=== PATIENT | female | born 1970 | race Caucasian/White ===

== ENCOUNTER 2022-10-02 12:10 | Outpatient (OUT) | payer MEDICAID, SELFPAY ==
[2022-10-02 13:57] LABS: Albumin Level 3.1 g/dL (3.4-5.0); Anion Gap 19.8; BUN Creatinine Ratio 8.8; Calcium 9.8 mg/dL (8.5-10.1); Carbon Dioxide 21.4 mmol/L (21.0-32.0); Chloride 100 mmol/L (98-107); Estimated GFR (African America >60 (>=60); Estimated GFR (Non-African Ame 57 (>=60); Glucose 308 mg/dL (74-106); Magnesium 1.3 mg/dL (1.8-2.4); Phosphorus 4.5 mg/dL (2.6-4.7); Potassium 4.2 mmol/L (3.5-5.1); Sodium 137 mmol/L (136-145)
== END 2022-10-02 12:11 | disposition home or self-care (01) ==
LOC: LAB 12:15
PROVIDERS: PCP Nurse Practitioner Family; Visit Provider Internal Medicine
DX: E55.9 Vitamin D deficiency, unspecified (principal); E83.52 Hypercalcemia; D35.1 Benign neoplasm of parathyroid gland
CPT/HCPCS: 36415; 80069; 82306; 82310; 83735; 83970

== ENCOUNTER 2022-10-11 09:34 | Outpatient (OUT) | payer MEDICAID, SELFPAY ==
[2022-10-11 09:58] LABS: Basophils Absolute Auto 0.1 10^3/uL (0.0-0.1); Basophils Percent Auto 0.8 % (0.2-2.0); Eosinophils Absolute Auto 0.2 10^3/uL (0.0-0.7); Eosinophils Percent Auto 2.3 % (0.9-7.0); Hematocrit 44.8 % (36.0-48.0); Immature Granulocytes Abs Auto 0.06 10^3/uL (0.00-0.03); Immature Granulocytes Pct Auto 0.6 % (0.0-0.5); Lymphocytes Absolute Auto 3.4 10^3/uL (1.2-3.8); Lymphocytes Percent Auto 34.6 % (20.5-60.0); Mean Corpuscular HGB Conc 33.5 g/dL (29.9-35.2); Mean Corpuscular Hemoglobin 30.1 pg (26.7-34.0); Mean Platelet Volume 10.9 fL (9.5-13.5); Monocytes Absolute Auto 0.4 10^3/uL (0.3-0.8); Neutrophils Absolute Auto 5.7 10^3/uL (1.4-6.5); Neutrophils Percent Auto 57.7 % (43.0-75.0); Platelet Count 251 10^3/uL (150-450); Red Blood Count 4.98 10^6/uL (4.20-5.40); Red Cell Distribution Width 13.1 % (11.0-15.0); White Blood Count 9.9 10^3/uL (4.0-11.0)
[2022-10-11 10:05] LABS: Creatinine Urine Random 189.24 mg/dL (20.00-300.00)
[2022-10-11 10:30] LABS: Albumin Level 3.3 g/dL (3.4-5.0); Anion Gap 13.2; BUN Creatinine Ratio 17.2; Calcium 9.5 mg/dL (8.5-10.1); Carbon Dioxide 27.6 mmol/L (21.0-32.0); Chloride 103 mmol/L (98-107); Estimated GFR (African America >60 (>=60); Estimated GFR (Non-African Ame 59 (>=60); Glucose 136 mg/dL (74-106); Magnesium 1.5 mg/dL (1.8-2.4); Potassium 3.8 mmol/L (3.5-5.1); Sodium 140 mmol/L (136-145)
[2022-10-11 10:41] LABS: Bilirubin Urine NEGATIVE (NEGATIVE); Blood Urine SMALL (NEGATIVE); Clarity Urine CLEAR (CLEAR); Color Urine YELLOW (YELLOW); Glucose Urine UA 500 mg/dL (NEGATIVE); Ketones Urine NEGATIVE (NEGATIVE); Leukocyte Esterase Urine NEGATIVE (NEGATIVE); Nitrite Urine NEGATIVE (NEGATIVE); Protein Urine >=300 mg/dL (NEG/TRACE); Specific Gravity Urine >=1.030 (1.005-1.025); Urobilinogen Urine 0.2 EU/dL (0.2-1.0); pH Urine 5.5 (5.0-9.0)
[2022-10-12 11:09] LABS: PTH, Intact 22 pg/mL (15-65)
== END 2022-10-11 09:35 | disposition home or self-care (01) ==
PROVIDERS: PCP Nurse Practitioner Family; Visit Provider Internal Medicine
DX: E11.22 Type 2 diabetes mellitus with diabetic chronic kidney disease (principal); I12.9 Hypertensive chronic kidney disease with stage 1 through stage 4 chronic kidney disease, or unspecified chronic kidney disease; N18.30 Chronic kidney disease, stage 3 unspecified; R80.1 Persistent proteinuria, unspecified; E27.9 Disorder of adrenal gland, unspecified; E83.42 Hypomagnesemia; E83.52 Hypercalcemia; D75.1 Secondary polycythemia
CPT/HCPCS: 36415; 80069; 81003; 82306; 82570; 83735; 83970; 85025

== ENCOUNTER 2023-03-28 10:22 | Outpatient (OUT) | payer MEDICAID, SELFPAY ==
[2023-03-28 11:18] LABS: Magnesium 1.2 mg/dL (1.8-2.4); Phosphorus 3.4 mg/dL (2.6-4.7)
== END 2023-03-28 10:23 | disposition home or self-care (01) ==
LOC: LAB 10:23
PROVIDERS: PCP Nurse Practitioner Family; Visit Provider Internal Medicine
DX: D35.1 Benign neoplasm of parathyroid gland (principal); E83.52 Hypercalcemia; E55.9 Vitamin D deficiency, unspecified
CPT/HCPCS: 36415; 82042; 82306; 82310; 83735; 83970; 84100

== ENCOUNTER 2023-03-28 10:24 | Outpatient (OUT) | payer MEDICAID, SELFPAY ==
[2023-03-28 10:57] LABS: Basophils Absolute Auto 0.1 10^3/uL (0.0-0.1); Basophils Percent Auto 0.7 % (0.2-2.0); Eosinophils Absolute Auto 0.2 10^3/uL (0.0-0.7); Eosinophils Percent Auto 1.5 % (0.9-7.0); Hematocrit 48.5 % (36.0-48.0); Immature Granulocytes Abs Auto 0.06 10^3/uL (0.00-0.03); Immature Granulocytes Pct Auto 0.6 % (0.0-0.5); Lymphocytes Absolute Auto 3.8 10^3/uL (1.2-3.8); Lymphocytes Percent Auto 36.1 % (20.5-60.0); Mean Corpuscular Hemoglobin 29.6 pg (26.7-34.0); Mean Corpuscular Volume 89.6 fL (81.0-99.0); Mean Platelet Volume 11.3 fL (9.5-13.5); Monocytes Absolute Auto 0.5 10^3/uL (0.3-0.8); Monocytes Percent Auto 4.5 % (1.7-12.0); Neutrophils Percent Auto 56.6 % (43.0-75.0); Platelet Count 198 10^3/uL (150-450); Red Blood Count 5.41 10^6/uL (4.20-5.40); Red Cell Distribution Width 12.8 % (11.0-15.0); White Blood Count 10.5 10^3/uL (4.0-11.0)
[2023-03-28 11:21] LABS: Anion Gap 13.4; BUN Creatinine Ratio 13.3; Calcium 10.6 mg/dL (8.5-10.1); Carbon Dioxide 27.4 mmol/L (21.0-32.0); Chloride 103 mmol/L (98-107); Chol HDL Ratio 5.5; Cholesterol 268 mg/dL (<=200); Estimated GFR (African America >60 (>=60); Estimated GFR (Non-African Ame 55 (>=60); Glucose 175 mg/dL (74-106); HDL Cholesterol 49 mg/dL (40-60); Potassium 3.8 mmol/L (3.5-5.1); Sodium 140 mmol/L (136-145); Triglycerides 325 mg/dL (<=150)
== END 2023-03-28 10:25 | disposition home or self-care (01) ==
PROVIDERS: PCP Nurse Practitioner Family
DX: D35.1 Benign neoplasm of parathyroid gland (principal); E83.52 Hypercalcemia; E55.9 Vitamin D deficiency, unspecified; I10 Essential (primary) hypertension; E78.01 Familial hypercholesterolemia; R07.9 Chest pain, unspecified; R94.31 Abnormal electrocardiogram [ECG] [EKG]
CPT/HCPCS: 36415; 80048; 80061; 82042; 82306; 82310; 83735; 83970; 84100; 85025

== ENCOUNTER 2023-04-16 10:04 | Outpatient (OUT) | payer MEDICAID, SELFPAY ==
--- OUTSIDE RECORDS SUMMARY | 2023-04-16 10:12 | XMS_ITS | CCD ---
Demographics Address [address] [address] Preferred Language en Marital Status Single Hoahaoism Affiliation Unknown Race White Ethnic Group Not or Lati no Author Name Unknown Address [address] [place] [address] Organization [facility] Care Team Providers Care Shank Burnisher Name Role Phone Danis, Nir Unavailable KAYLIE LANG Primary Care Physician Rosina Salter Unavailable Unavailable KALA LLOYD Primary Care Physician [phone] Eliazar De Los Santos Attending Unavailable Eliazar De Los Santos Admitting Unavailable Eliazar De Los Santos Attending Unavailable Eliazar De Los Santos Admitting Unavailable Eliazar De Los Santos Admitting Unavailable Eliazar De Los Santos Attending Unavailable MD Kala Lloyd Primary Care Provider TAMMIE Lang Referring Provider MD Isela Downs Attending Provider [phone] Peyton Hoskins Unavailable MD Prema [facility] Primary Care Provider TAMMIE Lang Referring Provider MD Isela Downs Attending Provider TAMMIE Lang Primary Care Provider [phone] MD Peyton Hoskins Attending Provider DANIS NIR Admitting Unavailable DANISCOLLINUL Attending Unavailable KAYLIE LANG Primary Care Unavailable DANIS, NIR Consulting Unavailable MISTatyana, DR SIMMS Admitting Unavailable MISC, DR SIMMS Attending Unavailable DR KALA LLOYD Referring Unavailable KAYLIE LANG Primary Care Unavailable BLU, DR SIMMS Consulting Unavailable DANIS, NIR Admitting Unavailable DANISCOLLINUL Attending Unavailable KAYLIE LANG Primary Care Unavailable DANIS, NIR Consulting Unavailable DANIS, NIR Admitting Unavailable DANIS, NIR Attending Unavailable LANG, KAYLIE Primary Care Unavailable DANIS, NIR Consulting Unavailable DANIS, NIR Admitting Unavailable DANIS, NIR Attending Unavailable LANG, KAYLIE Primary Care Unavailable DANIS, NIR Consulting Unavailable DANIS, NIR Admitting Unavailable DANIS, NIR Attending Unavailable LANG, KAYLIE Primary Care Unavailable DANIS, NIR Consulting Unavailable Lang, FLAG CAR DRIVER Kaylie R Primary Care Provider MD Herrera Donahue Attending Provider MD Nir Horvath Attending Provider [phone] Lang, Kaylie R Primary Care Unavailable Asaad, Imad Admitting Unavailable Asaad, Imad Attending Unavailable Lang, Kaylie R Primary Care Unavailable Asaad, Imad Admitting Unavailable Asaad, Imad Attending Unavailable Danis, Nir Admitting Unavailable Danis, Nir Attending Unavailable Lang, Kaylie R Primary Care Unavailable Asaad, Imad Admitting Unavailable Lang, Kaylie R Primary Care Unavailable Asaad, Imad Attending Unavailable Lang, Kaylie R Primary Care Unavailable Asaad, Imad Admitting Unavailable Asaad, Imad Attending Unavailable Lang FLAG CAR DRIVER-ANESTHESIOLOGIST ATTENDING, Kaylie R Primary Care Provider Kala Lloyd MD Primary Care Provider Scott GAS SPECIALIST, Kaylie R Unavailable DENNIS FOSTER Attending Unavailable LANG, KAYLIE R Referring Unavailable LANG, KAYLIE R Primary Care Unavailable JONATHON, REYMUNDO E Admitting Unavailable GIRON, REYMUNDO E Attending Unavailable LANG, KAYLIE R Referring Unavailable LANG, KAYLIE R Primary Care Unavailable GIRON, REYMUNDO E Attending Unavailable GIRON, REYMUNDO E Referring Unavailable LANG, KAYLIE R Primary Care Unavailable LANG, KAYLIE R Referring Unavailable LANG, KAYLIE R Primary Care Unavailable DENNIS FOSTER Attending Unavailable DENNIS FOSTER Referring Unavailable LANG, KAYLIE R Primary Care Unavailable DENNIS FOSTER Attending Unavailable DENNIS FOSTER Referring Unavailable LANG, KAYLIE R Primary Care Unavailable LIVE KWON Attending Unavailable LANG, KAYLIE R Referring Unavailable LANG, KAYLIE R Primary Care Unavailable DENNIS FOSTER Attending Unavailable DENNIS FOSTER Referring Unavailable LANG, KAYLIE R Primary Care Unavailable DENNIS FOSTER Attending Unavailable CRISTIAN, DENNIS D Referring Unavailable LANG, KAYLIE R Primary Care Unavailable DENNIS FOSTER Attending Unavailable CRISTIAN DENNIS D Referring Unavailable LANG, KAYLIE R Primary Care Unavailable BRANDON LAUGHLIN Attending Unavailable LAVERNE PORTER Attending Unavailable KALA LLOYD Referring Unavailable PREMAKALA Attending Unavailable ELIAZAR DE LOS SANTOS Attending Unavailable LINDY VALENTINO Attending UnavailBRANDON Pruett Attending Unavailable KAYLIE LANG Attending Unavailable BRANDON LAUGHLIN Referring Unavailable LINDY VALENTINO Attending UnavailELIAZAR Bennett Attending Unavailable LINDY VALENTINO Attending Unavailyany hurtado Allergies Allergy Classification Reported Allergen(s) Allergy Type Date of Onset Reaction(s) Facility (9 sources) Coconut extract Drug Allergy 05-19-19 23 Unknown, [facility] (19 sources) Codeine; Translations: [CODEINE] Drug Allergy 01-01-20 19 [facility] (13 sources) dapagliflozin; Translations: [DAPAGLIFLOZIN] Drug Allergy 01-01-20 [facility] (13 sources) Latex; Translations: [LATEX] Propensity to adverse reactions 01-08-20 [facility] (5 sources) onions Propensity to adverse reactions Unknown [facility] Other (4 sources) Acetaminophen Drug Allergy 05-19-19 Unknown Reaction [facility] (4 sources) Bee pollen Allergy to substance 05-19-19 Anaphylaxis [facility] (4 sources) Onion extract Drug Allergy 05-19-19 Anaphylaxis [facility] (4 sources) Tide Allergy to substance 05-19-19 [facility] (1 source) Coconut extract Drug Allergy 06-17-[address] [facility] (1 source) Codeine Drug Allergy 02-08-[address] [facility] (1 source) Latex Drug allergy (disorder) 06-17-[address] [facility] (1 source) Misc-Food; Translations: [Misc-Food] Food allergy (disorder) 06-17-[address] [facility] (1 source) Misc-Drug Drug allergy (disorder) 07-05-[address] [facility] (1 source) dapagliflozin Drug Allergy 07-24-19 Rash [facility] (1 source) Latex Allergy to substance 07-24-19 Unknown [facility] (1 source) Coconut Flavor Allergy to substance 07-24-19 Unknown [facility] Work Phone: Medications Current Medications Medication Drug Class(es) Dates Sig (Normalized) Sig (Original) [id number] 200 actuat albuterol 0.09 mg/actuat metered dose inhaler (13 sources) beta2-Adrenergic Agonist Start: 07-17-2021 take 2 puff(s) by inhalation every four hours albuterol HFA 90 mcg/act inhaler Inhale 2 puffs every 4 (four) hours if needed. 0 07/17/2021 Active Start: 05-25-2019 take 1 puff(s) by in halation every four to six hours Albuterol Sulfate Active 2 PUFF INHALATION EVERY 4-6 HOURS May 25, 2019 12:00am take 2 puff(s) by in halation every six hours as needed for wheezing albuterol (PROVENTIL HFA;VENTOLIN HFA) 90 mcg/actuation inhaler Inhale 2 puffs every 6 (six) hours as needed for wheezing. 0 Active take 2 puff(s) by in halation every six hours as needed Albuterol Sulfate HFA 108 (90 Base) MCG/ACT 2 puffs as needed Inhalation every 6 hrs Active take 2 puff(s) by in halation every six hours as needed Albuterol Sulfate HFA 108 (90 Base) MCG/ACT 2 puffs as needed Inhalation every 6 hrs Active Alirocumab (Praluent Pen) 75 mg/mL Pen Injector (4 sources) Start: 04-26-2022 inject 75 mg by subcutaneous injection every other week Alirocumab (Praluent Pen) 75 mg/mL Pen Injector Active 75 MG SUBCUT Q14D April 26, 2022 1:00am Start: 04-26-2022 inject 75 mg by subc utaneous injection every other week Alirocumab (Praluent Pen) 75 mg/mL Pen Injector Active 75 MG SUBCUT Q14D April 26, 2022 12:00am aMILoride hydrochloride 5 mg oral tablet (8 sources) Potassium-sparing Diuretic Start: 04-12-2022 take 1 tablet by mouth every twenty-four hours aMILoride HCl 5 MG 1 tablet with food Orally Once a day for 90 day(s) Apr, Active take 1 tablet by nancy th every twelve hours aMILoride HCl 5 MG 1 tablet with food Orally bid for 90 days Active atorvastatin 80 mg oral tablet (17 sources) HMG-CoA Reductase Inhibitor Start: 04-26-2022 take 1 tablet by mouth once daily atorvastatin (Lipitor) 80 MG tablet Indications: Mixed hyperlipidemia (CMS/HCC) Take 1 tablet by mouth once daily 30 tablet 0 10/18/2022 Active Start: 05-15-2018 End: 04-22-2020 take 80 mg by mouth once daily in the morning Atorvastatin Discontinued 80 MG PO Every morning May 15, 2018 1:00am April 22, 2020 4:06pm take 2 tablets by mo uth in the morning atorvastatin (LIPITOR) 40 mg tablet Take 2 tablets (80 mg total) by mouth in the morning. 0 Active bismuth subsalicylate 262 mg chewable tablet (1 source) Bismuth Start: 07-20-2022 take 1 tablet by mouth twice daily Bismuth 262 MG 1 tablet Orally twice daily for 14 days July, Active blood-glucose sensor (DEXCOM G6 SENSOR) device (3 sources) blood-glucose sensor (DEXCOM G6 SENSOR) device by miscellaneous route. 0 Active cefuroxime 500 mg oral tablet (5 sources) Cephalosporin Antibacterial Start: 04-05-2023 End: 04-15-2023 take 1 tablet by mouth in the morning cefuroxime (Ceftin) 500 MG tablet Indications: Acute bronchitis, unspecified organism Take 1 tablet (500 mg) by mouth in the morning and 1 tablet (500 mg) before bedtime. Do all this for 10 days. 20 tablet 0 04/05/2023 04/15/2023 Active Start: 07-24-2019 End: 08-20-2019 take 250 mg by mouth twice daily Cefuroxime Axetil Discontinued 250 MG PO Twice daily July 24, 2019 12:00am August 20, 2019 1:24pm cetirizine hydrochloride 10 mg oral tablet (12 sources) Histamine-1 Receptor Antagonist Start: 05-25-2019 take 10 mg by mouth once daily Cetirizine Active 10 MG PO Daily May 25, 2019 12:00am chlorproMAZINE hydrochloride 200 mg oral tablet (17 sources) Phenothiazine Start: 05-15-2018 Chlorpromazine Active 100 MG PO As Directed May 15, 2018 1:00am Start: 05-15-2018 take 500 mg by mouth at bedtime Chlorpromazine Active 500 MG PO Bedtime May 15, 2018 12:00am Start: 05-15-2018 End: 05-25-2019 take 50 mg by mouth twice daily Chlorpromazine Discontinued 50 MG PO Twice daily May 15, 2018 1:00am May 25, 2019 10:57am take 1 tablet by nancy th every eight hours chlorproMAZINE (Thorazine) 200 MG tablet Take 200 mg by mouth every 8 (eight) hours. 0 Active chlorproMAZINE ( THORAZINE) 200 mg tablet Take 1 tablet (200 mg total) by mouth once daily at bedtime. Take 2-3 tablets at night 0 Active Continuous Blood Gluc Sensor (Dexcom G6 Sensor) [facility] (1 source) Start: 01-03-2023 Continuous Blood Gluc Sensor (Dexcom G6 Sensor) [facility] [place] [place] Indications: Type 2 diabetes mellitus with peripheral neuropathy (CMS/HCC) 1 each Every 10 (ten) days. 9 each 3 01/03/2023 Active doxepin hydrochloride 50 mg oral capsule (13 sources) Tricyclic Antidepressant Start: 05-15-2018 take 50 mg by mouth three times daily Doxepin Active 50 MG PO Three times daily May 15, 2018 1:00am [id number] 0.3 ml EPINEPHrine 1 mg/ml auto-injector (4 sources) alpha-Adrenergic Agonist, beta-Adrenergic Agonist, Catecholamine Start: 11-02-2021 EPINEPHrine (EpiPen 2-Dre) 0.3 MG/0.3ML injection syringe Inject 1 Syringe as directed 1 (one) time. 0 11/02/2021 Active EPINEPHrine (ADR ENALIN) 1 mg/mL injection Inject into the appropriate muscle once. 0 Active ezetimibe 10 mg oral tablet (13 sources) Dietary Cholesterol Absorption Inhibitor Start: 12-02-2020 take 1 tablet by mouth once daily ezetimibe (Zetia) 10 MG tablet Indications: Hyperlipidemia, unspecified hyperlipidemia type (CMS/HCC) Take 1 tablet by mouth once daily 90 tablet 0 03/19/2023 Active gabapentin 800 mg oral tablet (13 sources) Anti-epileptic Agent Start: 05-15-2018 take 800 mg by mouth four times daily Gabapentin Active 800 MG PO Four times daily May 15, 2018 1:00am take 1 tablet by mouth every six hours gabapentin (Neurontin) 800 MG tablet Take 800 mg by mouth every 6 (six) hours. 0 Active Insulin Aspart U-100 (Novolo g Flexpen U-100 Insulin) 100 unit/mL (3 mL) Insulin Pen (4 sources) Start: 05-25-2019 Insulin Aspart U-100 (Novolog Flexpen U-100 Insulin) 100 unit/mL (3 mL) Insulin Pen Active 15 - 40 UNIT SUBCUT THREE TIMES DAILY WITH MEALS May 25, 2019 12:00am Start: 05-25-2019 Insulin Aspart U-100 (Novolog Flexpen U-100 Insulin) 100 unit/mL (3 mL) Insulin Pen Active 15 - 40 UNIT SUBCUT THREE TIMES DAILY WITH MEALS May 24, 2019 11:00pm 3 ml insulin aspart, human 100 unt/ml pen injector (13 sources) Insulin Analog Start: 04-03-2023 insulin aspart (NovoLOG) 100 UNIT/ML pen Indications: Type 2 diabetes mellitus with peripheral neuropathy (CMS/HCC) 10 units small meals, 20 units medium, 35 units large meals plus correction 2:30 > 150 mg/dl (max daily 100 units) 30 mL 2 04/03/2023 Active Start: 05-15-2018 End: 05-25-2019 inject 30 [IU] by subcutaneous injection four times daily Insulin Aspart U-100 Discontinued 30 UNITS SUBCUT Four times daily May 15, 2018 1:00am May 25, 2019 11:05am Start: 05-15-2018 End: 05-25-2019 inject 30 [IU] by subcutaneous injection four times daily Insulin Aspart U-100 Discontinued 30 UNITS SUBCUT Four times daily May 15, 2018 12:00am May 25, 2019 10:05am insulin aspart U -100 (NovoLOG) 100 unit/mL injection Inject under the skin 3 (three) times a day before meals. Sliding scale 0 Active NovoLOG 100 UNIT /ML 30 UNITS FOR SMALL MEALS, 45 UNITS FOR LARGE MEALS Subcutaneous NEEDED Active 3 ml insulin glargine 100 unt/ml pen injector (20 sources) Insulin Analog Start: 04-02-2023 inject 40 [IU] by subcutaneous injection in the morning insulin glargine (Lantus SoloStar) 100 UNIT/ML pen Indications: Type 2 diabetes mellitus with peripheral neuropathy (CMS/HCC) Inject 40 Units under the skin in the morning and 40 Units before bedtime. 30 mL 2 04/02/2023 Active Start: 04-21-2020 Insulin Glargi ne (Lantus Solostar U-100 Insulin) 100 unit/mL (3 mL) insulin pen Active 50 UNIT SUBCUT Twice daily April 21, 2020 1:00am Start: 04-21-2020 Insulin Glargi ne (Lantus Solostar U-100 Insulin) 100 unit/mL (3 mL) insulin pen Active 45 UNIT SUBCUT Twice daily April 21, 2020 12:00am Start: 05-25-2019 End: 04-26-2022 inject 35 [IU] by subcutaneous injection twice daily Insulin Glargine Discontinued 35 UNIT SUBCUT Twice daily May 25, 2019 12:00am April 26, 2022 3:44pm Start: 05-15-2018 End: 05-25-2019 inject 35 mg by subcutaneous injection twice daily Insulin Glargine Discontinued 35 MG SUBCUT Twice daily May 15, 2018 1:00am May 25, 2019 11:05am inject 40 [IU] by burgos bcutaneous injection in the morning insulin glargine (LANTUS, BASAGLAR) 100 unit/mL (3 mL) insulin pen Inject 40 Units under the skin in the morning and 40 Units before bedtime. 0 Active Lantus SoloStar 100 UNIT/ML as directed Subcutaneous 40 UNITS TWICE A DAY Active lisinopril 20 mg oral tablet (13 sources) Angiotensin Converting Enzyme Inhibitor Start: 05-15-2018 take 1 tablet by mouth in the morning lisinopril 20 MG tablet Indications: Primary hypertension (CMS/HCC) Take 1 tablet (20 mg) by mouth in the morning. 90 tablet 1 01/21/2023 Active LORazepam 0.5 mg oral tablet (13 sources) Benzodiazepine Start: 05-18-2022 take 1 tablet by mouth once daily Lorazepam (Ativan) 0.5 mg Tablet Active 0.5 MG PO Daily May 18, 2022 1:00am [facility], then take 2 tablets by mouth in the evening, then take 2 tablets by mouth at bedtime LORazepam (Ativan) 0.5 MG tablet Take 1 mg by mouth in the morning and 1 mg in the evening and 1 mg before bedtime. 0 Active take 1 tablet by nancy th in the morning, then take 1 tablet by mouth three times daily, then take 2 tablets by mouth at bedtime LORazepam (ATIVAN) 1 mg tablet Take 1 tablet (1 mg total) by mouth in the morning. 1 tablets 3 times daily and 2 tablets at bedtime. 0 Active take 1 tablet by nancy th every six hours as needed for anxiety LORazepam (ATIVAN) 0.5 mg tablet Take 1 tablet (0.5 mg total) by mouth every 6 (six) hours as needed for anxiety. 0.5-1 mg daily 2 tablets at HS 0 Active magnesium oxide 400 mg oral tablet (13 sources) Start: 04-26-2022 take 400 mg by mouth once daily Magnesium Oxide Active 400 MG PO Daily April 26, 2022 1:00am take 1 tablet by nancy th twice daily at mealtime Magnesium Oxide 400 (240 Mg) MG 1 tablet with food Orally bid for 90 day(s) Active metFORMIN hydrochloride 1000 mg oral tablet (13 sources) Biguanide Start: 12-24-2022 End: 12-24-2023 take 1 tablet by mouth in the morning metFORMIN (Glucophage) 1000 MG tablet Indications: Type 2 diabetes mellitus with peripheral neuropathy (CMS/HCC) Take 1 tablet (1,000 mg) by mouth in the morning and 1 tablet (1,000 mg) before bedtime. 180 tablet 3 12/24/2022 12/24/2023 Active Start: 05-15-2018 take 1000 mg by mouth twice da jazmine Metformin Active 1000 MG PO Twice daily May 15, 2018 1:00am take 1 tablet by nancy th every twenty-four hours in the morning, then take 1 tablet by mouth at mealtime metFORMIN (GLUMETZA) 1000 MG (MOD) 24 hr tablet Take 1 tablet (1,000 mg total) by mouth in the morning and 1 tablet (1,000 mg total) in the evening. Take with meals. 0 Active metroNIDAZOLE 500 mg oral tablet (1 source) Nitroimidazole Antimicrobial Start: 07-20-2022 take 1 tablet by mouth every twelve hours metroNIDAZOLE 500 MG 1 tablet Orally Twice a day for 14 days 12 May, 2023 Active montelukast 10 mg oral tablet (6 sources) Leukotriene Receptor Antagonist Start: 08-07-2022 take 1 tablet by mouth at bedtime montelukast (Singulair) 10 MG tablet Indications: Seasonal allergic rhinitis due to pollen Take 1 tablet (10 mg) by mouth at bedtime. 30 tablet 6 08/07/2022 Active Multivitamin preparation (4 sources) Start: 05-25-2019 take 1 tablet by mouth once daily in the morning Multivitamin Active 1 TAB PO Every morning May 25, 2019 12:00am Start: 05-25-2019 take 1 tablet by nancy th once daily in the morning Multivitamin Active 1 TAB PO Every morning May 24, 2019 11:00pm Tiotropium-Olodaterol (12 sources) Anticholinergic, beta2-Adrenergic Agonist Start: 04-26-2022 Tiotropium-Olodaterol (Stiolto Respimat) 2.5-2.5 mcg/actuation Mist Active 2 PUFF INHALATION Daily April 26, 2022 1:00am Start: 04-26-2022 Tiotropium-Olo daterol (Stiolto Respimat) 2.5-2.5 mcg/actuation Mist Active 2 PUFF INHALATION Daily April 26, 2022 12:00am Start: 11-03-2021 tiotropium-olo daterol (Stiolto Respimat) 2.5-2.5 MCG/ACT aerosol solution inhaler Inhale 2 Inhalation in the morning. 0 11/03/2021 Active tiotropium-oloda teroL (STIOLTO RESPIMAT) 2.5-2.5 mcg/actuation mist Inhale 2 puffs daily. 0 Active Stiolto Respimat 2.5-2.5 MCG/ACT Inhalation for 30 Days Active omeprazole 40 mg delayed release oral capsule (1 source) Proton Pump Inhibitor Start: 07-20-2022 Omeprazole 40 MG 1 capsule 30 minutes before morning meal and evening meal Orally twice a day for 14 days July, Active pantoprazole 40 mg delayed release oral tablet (17 sources) Proton Pump Inhibitor Start: 05-07-2018 End: 12-02-2020 take 1 tablet by mouth every twelve hours Pantoprazole Sodium 40 MG 1 tablet Orally bid for 30 day(s) Apr, Active take 1 tablet by nancy th every twelve hours pantoprazole (Protonix) 40 MG EC tablet Take 40 mg by mouth every 12 (twelve) hours. 0 Active polyethylene glycol 3350 538661 mg / potassium chloride 2970 mg / sodium bicarbonate 6740 mg / sodium chloride 5860 mg / sodium sulfate 79547 mg powder for oral solution (1 source) Osmotic Laxative Start: 07-24-2022 PEG-3350/Electrolytes 236 GM as directed Orally once daily for 1 days July, Active predniSONE 20 mg oral tablet (1 source) Start: 04-05-2023 take 2 tablets by mouth once daily, then take 1 tablet by mouth once daily predniSONE (Deltasone) 20 MG tablet Indications: Acute bronchitis, unspecified organism 2 po every day x 2 days then 1 po every day x 2 days 5 tablet 0 04/05/2023 Active rOPINIRole 0.25 mg oral tablet (13 sources) Nonergot Dopamine Agonist Start: 04-19-2016 take 0.25 mg by mouth once daily at bedtime Ropinirole Active 0.25 MG PO Daily at bedtime May 25, 2019 12:00am tetracycline hydrochloride 500 mg oral capsule (1 source) Tetracycline-clas s Antimicrobial Start: 07-20-2022 take 1 capsule by mouth twice daily Tetracycline HCl 500 MG 1 capsule on an empty stomach Orally twice daily for 14 days July, Active tiZANidine 4 mg oral tablet (4 sources) Central alpha-2 Adrenergic Agonist Start: 02-27-2023 take 1 tablet by mouth twice daily as needed tiZANidine (Zanaflex) 4 MG tablet Take 4 mg by mouth 2 (two) times a day as needed 0 02/27/2023 Active 24 hr divalproex sodium 500 mg extended release oral tablet (20 sources) Mood Stabilizer, Anti-epileptic Agent Start: 04-26-2022 take 1 tablet by mouth once daily Divalproex (Depakote Er) 500 mg Tablet Extended Release 24 Hr Active 500 MG PO Daily April 26, 2022 1:00am Start: 05-25-2019 End: 04-26-2022 take 1000 mg by mouth once daily in the morning Divalproex Discontinued 1000 MG PO Every morning May 25, 2019 12:00am April 26, 2022 3:34pm Start: 05-25-2019 End: 04-21-2020 take 1500 mg by mouth once daily at bedtime Divalproex Discontinued 1500 MG PO Daily at bedtime May 25, 2019 12:00am April 21, 2020 5:05pm take 2 tablets by mo uth every hour at bedtime divalproex (Depakote ER) 500 MG 24 hr tablet Take 500 mg by mouth every 12 (twelve) hours. Takes one tablet in the am and 2 at bedtime 0 Active take 3 tablets by mo uth once daily divalproex (DEPAKOTE) 500 mg EC tablet Take 3 tablets (1,500 mg total) by mouth nightly. 0 Active take 2 tablets by mo uth in the morning, then take 3 tablets by mouth twice daily at bedtime Depakote ER 500 MG 2 TABLETS IN AM, 3 TABLETS AT BEDTIME Orally TWICE A DAY Active Completed/Discontinued Medications Medication Drug Class(es) Dates Sig (Normalized) Sig (Original) 1 ml alirocumab 75 mg/ml auto-injector (6 sources) PCSK9 Inhibitor Start: 12-21-2021 End: 03-15-2023 inject 1 mL by subcutaneous injection once alirocumab (PRALUENT PEN) 75 mg/mL pen injector Indications: High cholesterol , Type 2 diabetes mellitus with hyperosmolarity without coma, with long-term [place] use [place] Inject 1 mL (75 mg total) under the skin every 14 (fourteen) days. 2 mL 12/21/2021 03/15/2023 Discontinued (Therapy completed) Praluent 75 MG/M L Subcutaneous for 28 Days Active cholecalciferol 0.01 mg oral tablet (8 sources) Vitamin D Start: 04-21-2020 End: 04-27-2022 take 10 ug by mouth once daily Cholecalciferol (Vitamin D3) Discontinued 10 MCG PO Daily April 21, 2020 1:00am April 27, 2022 10:40am take 1 capsule by mouth every we ek cholecalciferol (Vitamin D-3) 1.25 MG (14712 UT) capsule Take 50,000 Units by mouth 1 (one) time per week. 0 Active cholecalciferol (VITAMIN D3) 50,000 units capsule Take 5,000 Units by mouth once a week. 0 Active cyclobenzaprine hydrochloride 10 mg oral tablet (8 sources) Muscle Relaxant Start: 04-21-2020 End: 04-22-2020 take 10 mg by mouth at bedtime Cyclobenzaprine Discontinued 10 MG PO Bedtime April 21, 2020 1:00am April 22, 2020 4:06pm Start: 07-24-2019 End: 08-28-2019 take 10 mg by mouth three times daily Cyclobenzaprine Discontinued 10 MG PO Three times daily July 24, 2019 12:00am August 28, 2019 8:41am 24 hr desvenlafaxine succinate 100 mg extended release oral tablet (17 sources) Serotonin and Norepinephrine Reuptake Inhibitor Start: 12-02-2020 End: 04-26-2022 Desvenlafaxine Succinate Discontinued MG PO December 02, 2020 12:00am April 26, 2022 3:33pm Start: 05-15-2018 take 100 mg by mouth once daily Desvenlafaxine Succinate Active 100 MG PO Daily May 15, 2018 1:00am desvenlafaxine ( PRISTIQ) 100 mg 24 hr tablet Take 1 tablet (100 mg total) by mouth in the morning. Take 1.5 tablets. 0 Active take 1 tablet by nancy every twenty-four hours Desvenlafaxine ER 100 MG 1 tablet Orally Once a day Active diazePAM 5 mg oral tablet (4 sources) Benzodiazepine Start: 08-28-2019 End: 04-21-2020 take 5 mg by mouth four times daily Diazepam Discontinued 5 MG PO Four times daily 40 10 August 28, 2019 12:00am April 21, 2020 5:12pm ergocalciferol 1.25 mg oral capsule (5 sources) Provitamin D2 Compound Start: 05-25-2019 End: 04-26-2022 Ergocalciferol (Vitamin D2) (Vitamin D2) 1,250 mcg (50,000 unit) Capsule Discontinued 88750 UNIT PO As Directed May 25, 2019 12:00am April 26, 2022 3:35pm take twice weekly [facility] weekly Vitamin D (Ergocalciferol) 1.25 MG (5000 0 UT) 1 capsule Orally twice a week Active fluticasone propionate 0.05 mg/actuat metered dose nasal spray (13 sources) Corticosteroid Start: 07-24-2019 End: 04-26-2022 Fluticasone Propionate Discontinued 2 SPRAY INTRANASAL Daily July 24, 2019 12:00am April 26, 2022 3:43pm Start: 09-06-2014 take 2 spray(s) nasa l route in the morning fluticasone (Flonase) 50 MCG/ACT nasal spray Administer 2 sprays into each nostril in the morning. 0 09/06/2014 Active take 2 spray(s) nasa l route in the morning fluticasone propionate (FLONASE) 50 mcg/actuation nasal spray Administer 2 sprays into each nostril in the morning. 0 Active take 1 spray(s) nasa l route once daily Fluticasone Propionate 50 MCG/ACT 1 spray in each nostril Nasally Once a day Active jcsyfajc-jogx-US-calcium &mi ns (THERAGRAN-M) 9 mg iron-400 mcg tablet (2 sources) End: 03-15-2023 drprdvag-rjqa-OR-calcium &mi ns (THERAGRAN-M) 9 mg iron-400 mcg tablet Take 1 tablet by mouth in the morning. 0 03/15/2023 Discontinued (Therapy completed) vhtcmnhf-tpab-DZ -calcium &mins (THERAGRAN-M) 9 mg iron-400 mcg tablet Take 1 tablet by mouth in the morning. 0 Active naproxen 500 mg oral tablet (8 sources) Nonsteroidal Anti-inflammatory Drug Start: 04-21-2020 End: 07-11-2022 take 500 mg by mouth every twelve hours Naproxen Discontinued 500 MG PO Q12H April 21, 2020 1:00am July 11, 2022 12:58pm Start: 05-25-2019 End: 08-28-2019 take 500 mg by mouth twice daily Naproxen Discontinued 500 MG PO Twice daily May 25, 2019 12:00am August 28, 2019 8:41am oxyCODONE hydrochloride 5 mg oral tablet (4 sources) Opioid Agonist Start: 08-28-2019 End: 04-22-2020 take 5 mg by mouth every four to six hours Oxycodone Discontinued 5 MG PO EVERY 4-6 HOURS 70 14 August 28, 2019 April 22, 2020 4:06pm potassium gluconate 2.13 meq oral tablet (4 sources) Start: 07-24-2019 End: 12-02-2020 take 75 mg by mouth once daily Potassium Gluconate Discontinued 75 MG PO Daily July 24, 2019 12:00am December 02, 2020 9:29am tiotropium 0.018 mg inhalation powder (9 sources) Anticholinergic Start: 05-25-2019 End: 04-26-2022 take 1 puff(s) by inhalation once daily in the morning Tiotropium [place] Discontinued 1 PUFF INHALATION Every morning May 25, 2019 12:00am April 26, 2022 3:46pm Start: 05-15-2018 End: 05-25-2019 take 18 ug by inhalation once daily Tiotropium [place] Discontinued 18 MCG INHALATION Daily May 15, 2018 1:00am May 25, 2019 11:12am take 1 capsule by in halation once daily Spiriva HandiHaler 18 MCG 1 capsule by inhaling the contents of the capsule using the HandiHaler device Inhalation Once a day Active Problems Active Problems Problem Classification Problem Date Documented Date Episodic/Chronic Abdominal pain (5 sources) Abdominal pain; Translations: [Unspecified abdominal pain] Episodic Acquired foot deformities (2 sources) Acquired hallux valgus; Translations: [Hallux valgus (acquired), unspecified foot] Onset: 3 07-23-2022 Chronic Adjustment disorders (1 source) Stress; Translations: [Reaction to severe stress, unspecified] Onset: 3 07-23-2022 Chronic Anxiety disorders (5 sources) Posttraumatic stress disorder; Translations: [Post-traumatic stress disorder, unspecified] Chronic Chronic kidney disease (5 sources) Chronic kidney disease stage 2; Translations: [Chronic kidney disease, stage 2 (mild)] Chronic Chronic kidney disease (8 sources) Chronic kidney disease; Translations: [Chronic kidney disease, stage III (moderate)] Onset: 2 Resolved: 2 Chronic obstructive pulmonary disease and bronchiectasis (16 sources) Emphysematous bronchitis; Translations: [Chronic obstructive pulmonary disease, unspecified] Onset: 8 04-27-2022 Chronic Complications of surgical procedures or medical care (6 sources) Post-hysterectomy menopause; Translations: [Asymptomatic postprocedural ovarian failure] Onset: 3 07-23-2022 Chronic Diabetes mellitus with complications (20 sources) Type 2 diabetes mellitus; Translations: [Type 2 diabetes mellitus with diabetic chronic kidney disease] Onset: 1 Resolved: 4 Chronic Diabetes mellitus without complication (12 sources) Diabetes mellitus; Translations: [Type 2 diabetes mellitus without complications] Onset: 2 04-27-2022 Chronic Diseases of white blood cells (9 sources) Leukocytosis; Translations: [Elevated white blood cell count, unspecified] Onset: 3 04-22-2020 Chronic Disorders of lipid metabolism (14 sources) Hyperlipidemia; Translations: [Hyperlipidemia, unspecified] Onset: 2 12-18-2021 Chronic Esophageal disorders (20 sources) Gastroesophageal reflux disease; Translations: [Gastro-esophageal reflux disease without esophagitis] Onset: 3 04-22-2020 Chronic Essential hypertension (11 sources) Hypertensive disorder; Translations: [Essential (primary) hypertension] Onset: 2 12-18-2021 Chronic Gastritis and duodenitis (3 sources) Gastroduodenitis; Translations: [Gastritis, unspecified, without bleeding] Onset: 3 Episodic Hepatitis (14 sources) Nonalcoholic steatohepatitis; Translations: [Nonalcoholic steatohepatitis (WICK)] Onset: 2 12-18-2021 Chronic Hypertension with complications and secondary hypertension (13 sources) Hypertensive renal disease; Translations: [Hypertensive chronic kidney disease with stage 1 through stage 4 chronic kidney disease, or unspecified chronic kidney disease] Onset: 2 Resolved: 2 Chronic Malaise and fatigue (1 source) Fatigue; Translations: [Chronic fatigue, unspecified] Onset: 3 07-23-2022 Chronic Miscellaneous mental health disorders (4 sources) Feeling of lump in throat; Translations: [Other somatoform disorders] Chronic Mood disorders (7 sources) Bipolar affective disorder, currently depressed, moderate; Translations: [Bipolar disorder, current episode depressed, moderate] Onset: 3 07-23-2022 Chronic Mycoses (1 source) Onychomycosis; Translations: [Tinea unguium] 04-09-2023 Episodic Nonspecific chest pain (5 sources) Chest pain; Translations: [Chest pain, unspecified] Onset: 4 03-15-2023 Episodic Nutritional deficiencies (13 sources) Vitamin D deficiency; Translations: [Vitamin D deficiency, unspecified] Onset: 2 Resolved: 2 Chronic Other acquired deformities (1 source) Contracture of joint of left ankle; Translations: [Contracture, left ankle] Onset: 3 07-23-2022 Chronic Other acquired deformities (5 sources) Lumbar spondylolisthesis; Translations: [Spondylolisthesis, lumbar region] Episodic Other connective tissue disease (1 source) Metatarsalgia of left foot; Translations: [Metatarsalgia, left foot] 04-09-2023 Episodic Other connective tissue disease (1 source) Pain of toe of right foot; Translations: [Pain in right toe(s)] 04-09-2023 Episodic Other connective tissue disease (1 source) Pain of toe of left foot; Translations: [Pain in left toe(s)] 04-09-2023 Episodic Other diseases of kidney and ureters (5 sources) Secondary hyperparathyroidism; Translations: [Secondary hyperparathyroidism of renal origin] Chronic Other endocrine disorders (5 sources) Disorder of adrenal gland; Translations: [Disorder of adrenal gland, unspecified] Chronic Other endocrine disorders (6 sources) Adrenal mass; Translations: [Disorder of adrenal gland, unspecified] Onset: 3 07-23-2022 Chronic Other endocrine disorders (4 sources) Disorder of adrenal gland, unspecified; Translations: [DISORDER ADRENAL GLAND UNSPECIFIED] Onset: 2 Resolved: 2 Chronic Other gastrointestinal disorders (1 source) Dysphagia, unspecified Episodic Other hematologic conditions (2 sources) Secondary polycythemia; Translations: [SECONDARY POLYCYTHEMIA] Onset: 3 Episodic Other hereditary and degenerative nervous system conditions (6 sources) Restless legs; Translations: [Restless legs syndrome] Onset: 3 07-23-2022 Chronic Other liver diseases (6 sources) Lesion of liver; Translations: [Liver disease, unspecified] Onset: 3 07-23-2022 Chronic Other nervous system disorders (5 sources) Carpal tunnel syndrome; Translations: [Carpal tunnel syndrome, right upper limb] Chronic Other nervous system disorders (5 sources) Radial neuropathy; Translations: [Lesion of radial nerve, right upper limb] Chronic Other nervous system disorders (1 source) Carpal tunnel syndrome of right wrist; Translations: [Carpal tunnel syndrome, right upper limb] Onset: 3 07-23-2022 Chronic Other nervous system disorders (1 source) Right radial neuropathy; Translations: [Lesion of radial nerve, right upper limb] Onset: 3 07-23-2022 Chronic Other nervous system disorders (1 source) Chronic pain; Translations: [Other chronic pain] Onset: 3 07-23-2022 Chronic Other non-traumatic joint disorders (5 sources) Pain of right wrist; Translations: [Pain in right wrist] Episodic Other nutritional; endocrine; and metabolic disorders (5 sources) Obese class I; Translations: [Body mass index (BMI) 33.0-33.9, adult] Chronic Other nutritional; endocrine; and metabolic disorders (5 sources) Hypomagnesemia; Translations: [Hypomagnesemia] Chronic Other nutritional; endocrine; and metabolic disorders (4 sources) Hypomagnesemia; Translations: [HYPOMAGNESEMIA] Onset: 2 Resolved: 2 Chronic Other nutritional; endocrine; and metabolic disorders (10 sources) Hypercalcemia; Translations: [Hypercalcemia] Onset: 3 04-27-2022 Chronic Other nutritional; endocrine; and metabolic disorders (8 sources) Hypercalcemia; Translations: [Hypercalcemia] Onset: 3 Chronic Other nutritional; endocrine; and metabolic disorders (2 sources) Weight decreased; Translations: [Abnormal weight loss] Episodic Other nutritional; endocrine; and metabolic disorders (1 source) Abnormal weight loss; Translations: [Abnormal weight loss] Onset: 3 Episodic Other screening for suspected conditions (not mental disorders or infectious disease) (12 sources) Elevated liver enzymes level; Translations: [Other specified abnormal findings of blood chemistry] Onset: 3 04-27-2022 Episodic Other upper respiratory disease (11 sources) Allergic rhinitis; Translations: [Allergic rhinitis, unspecified] Onset: 3 07-23-2022 Chronic Other upper respiratory disease (6 sources) Seasonal allergic rhinitis; Translations: [Other seasonal allergic rhinitis] Onset: 3 07-23-2022 Chronic Other upper respiratory disease (6 sources) Allergic rhinitis due to pollen; Translations: [Allergic rhinitis due to pollen] Onset: 3 07-23-2022 Chronic Residual codes; unclassified (6 sources) Obstructive sleep apnea syndrome; Translations: [Obstructive sleep apnea (adult) (pediatric)] Onset: 3 01-21-2023 Chronic Residual codes; unclassified (5 sources) Tobacco user; Translations: [Tobacco use] Episodic Spondylosis; intervertebral disc disorders; other back problems (20 sources) Prolapsed lumbar intervertebral disc; Translations: [Other intervertebral disc displacement, lumbar region] Onset: 3 04-27-2022 Chronic Spondylosis; intervertebral disc disorders; other back problems (20 sources) Acute back pain with sciatica; Translations: [Lumbago with sciatica, left side] Onset: 3 12-19-2022 Episodic Substance-related disorders (6 sources) Tobacco user; Translations: [Nicotine dependence, cigarettes, uncomplicated] Onset: 5 12-10-2022 Chronic Unclassified (1 source) CHRN KIDNEY DISEASE STG 3 UNSP; Translations: [CHRN KIDNEY DISEASE STG 3 UNSP] Onset: 3 Past or Other Problems Problem Classification Problem Date Documented Da te Episodic/Chronic Genitourinary symptoms and ill-defined conditions (14 sources) Proteinuria; Translations: [Proteinuria, unspecified] Onset: 09-14-2021 Resolved: 09-14-2021 Episodic Mood disorders (1 source) Mood disorders Onset: 08-07-2022 08-07-2022 Other acquired deformities (1 source) Acquired spondylolisthesis; Translations: [Spondylolisthesis , site unspecified] Onset: 07-23-2022 07-23-2022 Episodic Other aftercare (11 sources) Long-term current use of insulin; Translations: [buttermaker (current) use of insulin] Onset: 11-29-2022 Resolved: 04-02-2023 04-02-2023 Episodic Other aftercare (4 sources) Other senior care (current) drug therapy; Translations: [OTH NURSING HOME CURRENT DRUG THERAPY] Onset: 08-30-2021 Episodic Other gastrointestinal disorders (11 sources) Dysphagia; Translations: [Dysphagia, unspecified] Onset: 07-23-2022 04-22-2020 Episodic Other hematologic conditions (1 source) Red blood cell finding; Translations: [Other abnormality of red blood cells] Onset: 07-23-2022 07-23-2022 Episodic Other nutritional; endocrine; and metabolic disorders (6 sources) Morbid obesity; Translations: [Morbid (severe) obesity due to excess calories] Onset: 07-23-2022 Resolved: 04-02-2023 04-02-2023 Chronic Other nutritional; endocrine; and metabolic disorders (6 sources) Severe obesity; Translations: [Morbid (severe) obesity due to excess calories] Onset: 07-23-2022 Resolved: 04-02-2023 04-02-2023 Chronic Residual codes; unclassified (6 sources) Acquired absence of cervix and uterus; Translations: [Acquired absence of both cervix and uterus] Onset: 07-23-2022 07-23-2022 Episodic Results Test Name Value Interpretation Reference Range Facility DIRECT LDLon 04-01-2023 Cholesterol in LDL [Mass/Vol] 143 mg/dL High <130 [facility] Comment on above: Result Comment: LDL <100 mg/dL - Desirable LDL 130-159 mg/dL - Borderline High Risk LDL >160 mg/dL - High Risk Performed By: #### 2 089-1 #### [facility] ([id number]) [address], [address] [place] [address] POCT EKGOrdered By: Mary Kay Finley on 03-15-2023 [facility] US LOWER EXTREMITY VENO US DUPLEX LEFTon 01-28-2023 [facility] US LOWER EXTREMITY VENOUS DUPLEX LEFT EXAM: [facility] US LOWER EXTREMITY VENOUS DUPLEX LEFT TECHNIQUE: LEFT lower extremity venous duplex exam was performed. HISTORY: Left lower extremity edema. FINDINGS: The common femoral, femoral, deep femoral, popliteal and calf veins were evaluated for deep venous thrombosis. The veins were evaluated with color Doppler imaging, compression and augmentation if possible. No sonographic evidence of deep venous thrombosis. IMPRESSION: No sonographic evidence of deep venous thrombosis of the left lower extremity. ELECTRONICALLY SIGNED BY: Dennis J Shanthi, DO Normal Not Available Glucose Poct Glucometerson 0 09-05-2022 Glucose [Mass/Vol] 208 mg/dL Normal [facility] Comment on above: Result Comment: [facility] Glucose Reference Range is dependent on time and content of last meal. Glucose of more than 200 mg/dL in a nonstressed, ambulatory subject supports the diagnosis of Diabetes Mellitus. PERFORMED BY: [facility] [place] [address] PATHOLOGIST [employer] AND OTHER WRITERS MURRAY PENN M.D. Performed By: #### G ADOLFO #### Point of Care testing , Christopher 09-05-2022 L ----- Specimen: [id number] Received: 09/05/22 Status: CHRIS Marte Num: [id number] Spec Type: Surgical Subm Dr: Peyton Hoskins MD Tissues: A Colon Biopsy (RECTAL POLYP) Procedures: HE/Jose, Gross/Kevin L4 Age/ Patient Sex Location Account Attending Physician Keya Ley/F [id number] Peyton Hoskins MD SPEC NUM: [id number] RECD: 09/05/22 STATUS: CHRIS MARTE NUM: [id number] FRANKLIN: 09/05/22 DR: Peyton Hoskins MD ENTERED: 09/05/[address] [facility] DR: GIRMA TYPE: Surgical DEPT: S ORDERED: HE/2, Gross/Micro L4 ORDERED: HE/2, Gross/Micro L4 Pathological Diagnosis Rectum, polyp, biopsy: - Nondiagnostic, only food material identified grossly and histologically. Clinical Information Weight loss, gastritis Gross Description Received in formalin labeled with the patient's name, date of and rectal polyp is a 0.3 cm aggregate of yellow-alexandre apparent fecal material. No discrete colonic mucosa is identified grossly. Entirely submitted in one cassette labeled A1. Microscopic Description Two H E slides reviewed. The microscopic examination confirms the diagnosis. CPT Codes 86142 Specimen: [id number] Received: 09/05/22 Status: CHRIS Marte Num: [id number] Spec Type: Surgical Subm Dr: Peyton Hoskins MD Tissues: A Colon Biopsy (RECTAL POLYP) Procedures: HE/2, Gross/Micro L4 Patient: Keya Ley [id number] (Continued) Signed (signature on file) Reymundo Mosqueda MD 09/06/22 0906 Normal [facility] Blood Urea Nitrogenon 2022 Urea nitrogen [Mass/Vol] 17 mg/dL Normal 7-25 [facility] Comment on above: Performed By: #### B KAYLA, CREKATHERINE #### [facility] [address] abdomen pelvis w conon CT abdomen pelvis w [facility] [place] [address] [place] [address] CT Scan Report Signed Patient: Keya Ley MR#: [id number] : 1970 Acct:[id number] Age/Sex: 51 / F ADM Date: 07/25/22 Loc: CT Room: Type: [facility] Attending Dr: Peyton Hoskins MD Copies to: Peyton Hoskins MD Ordering Provider: Peyton Hoskins MD Date of Service: 07/25/22 CT/CT abdomen pelvis w con: Weight loss, unintentional;Gastritis determined by endoscopy CT ABDOMEN AND PELVIS WITH INTRAVENOUS CONTRAST: CLINICAL HISTORY: Weight loss, gastritis, hypercalcemia COMPARISON: None. TECHNIQUE: Spiral images were obtained through the abdomen and pelvis following the administration of intravenous contrast. This CT exam was performed using one or more following dose reduction techniques: Automated exposure control, adjustment of the mA and/or kV according to patient size, or use of iterative reconstruction technique. FINDINGS: Lung Bases: [No acute findings. Organs:Hepatic steatosis. Gallbladder has been removed. Liver pancreas and adrenal glands all appear unremarkable. No enhancing renal mass or hydronephrosis. Abdominal aorta appears normal in caliber.] GI: [Stomach is grossly unremarkable. Duodenal diverticulum. Small bowel appears nondilated. Appendix is normal. Colonic diverticulosis. Pelvis:[Uterus has been removed. No adnexal mass. Urinary bladder is grossly unremarkable.] Peritoneum/Retroperitoneu m:No free air, free fluid or lymphadenopathy.[ Abd wall/Bones:Abdominal wall demonstrates no acute findings. Osseous structures demonstrate degenerative changes. Hardware fixation L4-S1.[ CT/CT abdomen pelvis w con IMPRESSION: No acute findings. Colonic diverticulosis. Hepatic steatosis. Impression dictated by: Rich Holder Jr., DNikkiONikki07/25/2022 3:46 PM Dictation Location: [place] [address] Transcribed By: [facility] 07/25/22 1546 Dictated By: Rich Holder Jr, DO 07/25/22 1543 Signed By: 07/25/22 1546 [facility] Creatinineon 07-25-2022 Creatinine [Mass/Vol] 0.95 mg/dL Normal 0.60-1.20 [facility] Comment on above: Performed By: #### B UN, CREAT #### [address] GFR/1.73 sq M.predicted MDRD (S/P/Bld) [Vol rate/Area] mL/min/{1.73_m2} [facility] Comment on above: Result Comment: PERF ORMED BY: [place] [address] PATHOLOGIST [employer]RNA[employer] AND OTHER WRITERS MURRAY PENN M.D. Performed By: #### B UN, CREAT #### [place] [address] [place] Creatinine (Bld) [Mass/Vol]O rdered By: Peyton Hoskins on 07-25-2022 Creatinine [Mass/Vol] 1.0 mg/dL 0.6-1.3 [facility] Comment on above: ER/ESD physician is notified/shown all ISTAT results.Critical values may be confirmed by laboratory testing ifdeemed necessary by ER attending doctor. Creatinine [Mass/volume] in Serum or PlasmaOrdered By: Peyton Hoskins on 07-25-2022 Creatinine [Mass/Vol] 0.95 mg/dL 0.60-1.20 [facility] No Panel InformationOrdered By: Peyton Hoskins on 07-25-2022 Estimated GFR (CKD-EPI) > 60.0 mL/Min [facility] Creatinine Clearance (Chem N/A [facility] Urea nitrogen [Mass/volume] in Serum or PlasmaOrdered By: Peyton Hoskins on 07-25-2022 Urea nitrogen [Mass/Vol] 17 mg/dL 7-25 [facility] NM*parathyroid SPECT*on 07-09 NM*parathyroid SPECT* [facility] [place] [address] [place] [address] Nuclear Medicine Report Signed Patient: Keya Ley MR#: [id number] : 1970 Acct:[id number] Age/Sex: 51 / F ADM Date: 07/23/22 Loc: [place] Room: Type: [facility] Attending Dr: Nir Horvath MD Copies to: MD Shelton Eason II, MD Ordering Provider: Nir Horvath MD Date of Service: 07/23/22 NM/NM*parathyroid SPECT*: Hypercalcemia NM*parathyroid SPECT* 07/23/2022 11:42 AM SIGNS AND SYMPTOMS: Hypercalcemia PROTOCOL: Scintigraphic images of the neck were obtained after intravenous radiotracer administration. Images were obtained at 15 minutes and 2 hours after injection. COMPARISON: None. RADIOPHARMACEUTICAL: 23.8 mCi of intravenous technetium 99m sestamibi FINDINGS: There is physiologic radiotracer accumulation on the 15 minute images within the thyroid tissue and salivary glands. There is also radiotracer accumulation within the myocardium. Two hour images show washout of radiotracer material from the thyroid bed with persistent abnormal radiotracer accumulation along the posterior aspect of the right thyroid bed inferiorly. This is suspicious for an underlying parathyroid adenoma. NM/NM*parathyroid SPECT* IMPRESSION: Findings consistent with a parathyroid adenoma along the inferior aspect of the right thyroid bed. Impression dictated by: Shelton Reed M.D.07/23/2022 4:57 PM Dictation Location: [place] [address] Transcribed By: [facility] 07/23/221656 Dictated By: Shelton Reed II, MD 07/23/221654 Signed By: 07/23/221656 Normal [facility] CALCIUM 24 HR URINEon 2022 CALC, 24 HR UR 202.8 mg/24 hr Normal 100.0-300. 0 [facility] Comment on above: Performed By: #### C [id number] #### [facility] [address] [place] [address] Dr. Tyree Botello UR CALCIUM 15.6 mg/dL Normal 5.1-21.0 [facility] Comment on above: Performed By: #### C [id number] #### [facility] [address] [place] [address] Dr. Tyree Botello UR TOT VOL 1300 ml/24 HR Normal [facility] Comment on above: Performed By: #### C [id number] #### [facility] [address] [place] [address] [address] Tyree Botello MAGNESIUMon 07-18-2022 Magnesium [Mass/Vol] 1.4 mg/dL Critically low 1.8-2.4 [facility] Comment on above: Performed By: #### M G, RENAL, URIC #### [facility] [address] [place] [address] Dr. Tyree Botello RENAL FUNCTION PANELon 07-18 Albumin [Mass/Vol] 3.1 g/dL Critically low 3.4-5.[address] [facility] Comment on above: Performed By: #### M G, RENAL, URIC #### [facility] [address] [place] [address] Dr. Tyree Botello Calcium [Mass/Vol] 9.7 mg/dL Normal 8.5-10.1 [facility] Comment on above: Performed By: #### M G, RENAL, URIC #### [facility] [address] [place] [address] Dr. Tyree Botello Chloride [Moles/Vol] 102 mmol/L Normal 98-107 [facility] Comment on above: Performed By: #### M G, RENAL, URIC #### [facility] [address] [place] [address] Dr. Tyree Botello CO2 [Moles/Vol] 26.1 mmol/L Normal 21.0-32.0 [facility] Comment on above: Performed By: #### M G, RENAL, URIC #### [facility] [address] [place] [address] Dr. Tyree Botello Creatinine [Mass/Vol] 1.13 mg/dL Critically high 0.55-1.02 [facility] Comment on above: Performed By: #### M G, RENAL, URIC #### [facility] [address] [place] [address] Dr. Tyree Botello EGFR-AF MALAGASY >60 Normal >=60 [facility] Comment on above: Performed By: #### M G, RENAL, URIC #### [facility] [address] [place] [address] Dr. Tyree Botello EGFR-NON AF MALAGASY 51 mL/min/1.73m2 Critically low >=60 [facility] Comment on above: Performed By: #### M G, RENAL, URIC #### [facility] [address] [place] [address] Dr. Tyree Botello Glucose [Mass/Vol] 355 mg/dL Critically high 74-106 T [facility] Comment on above: Performed By: #### M G, RENAL, URIC #### [facility] [address] [place] [address] Dr. Tyree Botello Phosphate [Mass/Vol] 3.4 mg/dL Normal 2.6-4.[address] [facility] Comment on above: Performed By: #### Avtar Alcantara, RENAL, URIC #### [facility] [address] [place] [address] Dr. Tyree Botello Potassium [Moles/Vol] 4.3 mmol/L Normal 3.5-5.1 [facility] Comment on above: Performed By: #### Avtar Alcantara, RENAL, URIC #### [facility] [address] [place] [address] Dr. Tyree Botello Sodium [Moles/Vol] 138 mmol/L Normal 136-[address] [facility] Comment on above: Performed By: #### Avtar Alcantara, RENAL, URIC #### [facility] [address] [place] [address] Dr. Tyree Botello Urea nitrogen [Mass/Vol] 16.0 mg/dL Normal 7.0-18.0 [facility] Comment on above: Performed By: #### Avtar Alcantara, RENAL, URIC #### [facility] [address] [place] [address] Dr. Tyree White 07-12-2022 L ----- Specimen: [id number] Received: 07/12/22 Status: CHRIS Marte Num: [id number] Spec Type: Surgical Subm Dr: Peyton Hoskins MD Tissues: A Gastric Biopsy (GASTRIC BX) B Esophagus Biopsy (DISTAL ESOPHAGUS) C Esophagus Biopsy (PROXIMAL ESOPHAGUS) Procedures: HE/6, Gross/Micro L4/3, H PYLORI Age/ Patient Sex Location Account Attending Physician Keya Ley 51/F [id number] Peyton Hoskins MD SPEC NUM: [id number] RECD: 07/12/22 STATUS: CHRIS MARTE NUM: [id number] FRANKLIN: 07/12/22- [facility] DR: Peyton Hoskins MD ENTERED: 07/12/22 [facility] [address]: GIRMA TYPE: Surgical DEPT: S ORDERED: HE/6, Gross/Micro L4/3, H PYLORI ORDERED: HE/6, Gross/Micro L4/3, H PYLORI Pathological Diagnosis A. 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 - No dysplasia seen. B. Esophagus, distal, biopsy: - Acanthosis and few intraepithelial lymphocytes. - No eosinophilic or neutrophilic infiltrates, intestinal metaplasia, or dysplasia seen. C. Esophagus, proximal, biopsy: - Acanthosis and few intraepithelial lymphocytes. - No eosinophilic or neutrophilic infiltrates, intestinal metaplasia, or dysplasia seen. Clinical Information Dysphagia, rule out H. pylori Gross Description A. Received in formalin labeled with the patient's name, number and gastric biopsy are two fragments of soft alexandre tissue averaging 0.2 cm. Entirely submitted in one cassette labeled A1. B. Received in formalin labeled with the patient's name, number and distal esophagus are Specimen: [id number] Received: 07/12/22 Status: CHRIS Marte Num: [id number] Spec Type: Surgical Subm Dr: Peyton Hoskins MD Tissues: A Gastric Biopsy (GASTRIC BX) B Esophagus Biopsy (DISTAL ESOPHAGUS) C Esophagus Biopsy (PROXIMAL ESOPHAGUS) Procedures: HE/6, Gross/Micro L4/3, H PYLORI Patient: KarenKayKeya L [id number] (Continued) Specimen: [id number] Received: 07/12/22 (Continued) Gross Description (Continued) Signed (signature on file) Reymundo Mosqueda MD 07/16/22 1524 Specimen: [id number] Received: 07/12/22 Status: CHRIS Marte Num: [id number] Spec Type: Surgical Subm Dr: Peyton Hoskins MD Tissues: A Gastric Biopsy (GASTRIC BX) B Esophagus Biopsy (DISTAL ESOPHAGUS) C Esophagus Biopsy (PROXIMAL ESOPHAGUS) Procedures: HE/6, Gross/Micro L4/3, H PYLORI Patient: Keya Ley [id number] (Continued) Specimen: [id number] Received: 07/12/22 (Continued) Gross Description (Continued) two fragments of soft alexandre tissue measuring 0.3 x 0.2 x 0.2 cm and 0.5 x 0.2 x 0.2 cm. Entirely submitted in one cassette labeled B1. C. Received in formalin labeled with the patient's name, number and proximal esophagus is one fragment of soft alexandre tissue measuring 0.4 x 0.2 x 0.1 cm. Entirely submitted in one cassette labeled C1. Microscopic Description A. Two glass slides with H E stained material have been examined. Subsequent immunostain for H. pylori organisms is positive. Stain control adequate. B. Two glass slides with H E stained material have been examined. C. Two glass slides with H E stained material have been examined. The microscopic findings support the above pathologic diagnosis. CPT Codes 14181?3, 57259 Specimen: [id number] Received: 07/12/22 Status: CHRIS Marte Num: [id number] Spec Type: Surgical Subm Dr: Peyton Hoskins MD Tissues: A Gastric Biopsy (GASTRIC BX) B Esophagus Biopsy (DISTAL ESOPHAGUS) C Esophagus Biopsy (PROXIMAL ESOPHAGUS) Procedures: HE/6, Gross/Micro L4/3, H PYLORI Patient: Keya Ley [id number] (more content not included)... Normal [facility] PTH INTACTon 07-03-2022 PTH, Intact 16 pg/mL Normal 15-65 [facility] Comment on above: Performed By: #### M G, RENAL, URIC #### [facility] [address] [place] [address] Dr. Tyree Botello HEMOGRAM AND PLATELon 2022 Hematocrit (Bld) [Volume fraction] 44.5 % Normal 36.0-48.0 [facility] Comment on above: Performed By: #### M G, RENAL, URIC #### [facility] [address] [place] [address] Dr. Tyree Botello Hemoglobin (Bld) [Mass/Vol] 15.0 g/dL Normal 12.0-16.0 [facility] Comment on above: Performed By: #### M G, RENAL, URIC #### [facility] [address] [place] [address] Dr. Tyree Botello MCH (RBC) [Entitic mass] 30.2 pg Normal 26.7-34.[address] [facility] Comment on above: Performed By: #### M G, RENAL, URIC #### [facility] [address] [place] [address] Dr. Tyree Botello MCHC (RBC) [Mass/Vol] 33.7 g/dL Normal 29.9-35.[address] [facility] Comment on above: Performed By: #### M G, RENAL, URIC #### [facility] [address] [place] [address] Dr. Tyree Botello MCV (RBC) [Entitic vol] 89.5 fL Normal 81.0-99.0 [facility] Comment on above: Performed By: #### M G, RENAL, URIC #### [facility] [address] [place] [address] Dr. Tyree Botello PLT 263 103/ul Normal 150-[address] [facility] Comment on above: Performed By: #### M G, RENAL, URIC #### [facility] [address] [place] [address] Dr. Tyree Botello RBC 4.97 106/ul Normal 4.20-5.[address] [facility] Comment on above: Performed By: #### M G, RENAL, URIC #### [facility] [address] [place] [address] Dr. Tyree Botello WBC 12.0 103/ul Critically high 4.0-11.[address] [facility] Comment on above: Performed By: #### M G, RENAL, URIC #### [facility] [address] [address] [address] Tyree Botello MAGNESIUMon 07-02-2022 Magnesium [Mass/Vol] 1.2 mg/dL Critically low 1.8-2.4 [facility] Comment on above: Performed By: #### M G, RENAL, URIC #### [facility] [address] [place] [address] Dr. Tyree Botello RENAL FUNCTION PANELon 07-02 Albumin [Mass/Vol] 3.1 g/dL Critically low 3.4-5.[address] [facility] Comment on above: Performed By: #### M G, RENAL, URIC #### [facility] [address] [place] [address] Dr. Tyree Botello Calcium [Mass/Vol] 9.7 mg/dL Normal 8.5-10.1 [facility] Comment on above: Performed By: #### M G, RENAL, URIC #### [facility] [address] [place] [address] Dr. Tyree Botello Chloride [Moles/Vol] 104 mmol/L Normal 98-107 [facility] Comment on above: Performed By: #### M G, RENAL, URIC #### [facility] [address] [place] [address] Dr. Tyree Botello CO2 [Moles/Vol] 28.6 mmol/L Normal 21.0-32.0 [facility] Comment on above: Performed By: #### M G, RENAL, URIC #### [facility] [address] [place] [address] Dr. Tyree Botello Creatinine [Mass/Vol] 0.95 mg/dL Normal 0.55-1.02 [facility] Comment on above: Performed By: #### M G, RENAL, URIC #### [facility] [address] [place] [address] Dr. Tyree Botello EGFR-AF MALAGASY >60 Normal >=60 [facility] Comment on above: Performed By: #### M G, RENAL, URIC #### [facility] [address] [place] [address] Dr. Tyree Botello EGFR-NON AF MALAGASY >60 Normal >=60 [facility] Comment on above: Performed By: #### M G, RENAL, URIC #### [facility] [address] [place] [address] Dr. Tyree Botello Glucose [Mass/Vol] 148 mg/dL Critically high 74-106 T [facility] Comment on above: Performed By: #### M G, RENAL, URIC #### [facility] [address] [place] [address] Dr. Tyree Botello Phosphate [Mass/Vol] 3.6 mg/dL Normal 2.6-4.7 [facility] Comment on above: Performed By: #### M G, RENAL, URIC #### [facility] [address] [place] [address] Dr. Tyree Botello Potassium [Moles/Vol] 4.2 mmol/L Normal 3.5-5.1 [facility] Comment on above: Performed By: #### M G, RENAL, URIC #### [facility] [address] [place] [address] Dr. Tyree Botello Sodium [Moles/Vol] 143 mmol/L Normal 136-145 [facility] Comment on above: Performed By: #### M G, RENAL, URIC #### [facility] [address] [place] [address] Dr. Tyree Botello Urea nitrogen [Mass/Vol] 14.0 mg/dL Normal 7.0-18.0 [facility] Comment on above: Performed By: #### M G, RENAL, URIC #### [facility] [address] [place] [address] Dr. Tyree Botello UA RANDOM W/MICROSCOPICon BACTERIA NONE SEEN Normal NONE SEEN [facility] Comment on above: Performed By: #### M G, RENAL, URIC #### [facility] [address] [place] [address] Dr. Tyree Botello Bilirubin Ql (U) Negative Normal NEGATIVE [facility] Comment on above: Performed By: #### M G, RENAL, URIC #### [facility] [address] [place] [address] Dr. Tyree Botello CAST SEEN Abnormal NONE SEEN The [facility] Comment on above: Performed By: #### M G, RENAL, URIC #### [facility] [address] [place] [address] Dr. Tyree Botello Clarity (U) CLEAR Normal CLEAR [facility] Comment on above: Performed By: #### M G, RENAL, URIC #### [facility] [address] [address] [address] Tyree Botello Color (U) LT. YELLOW Normal YELLOW [facility] Comment on above: Performed By: #### M G, RENAL, URIC #### [facility] [address] [place] [address] Dr. Tyree Botello Crystals LM Nom (Urine sed) NONE SEEN Normal NONE SEEN The [facility] Comment on above: Performed By: #### M G, RENAL, URIC #### [facility] [address] [place] [address] Dr. Tyree Botello Epithelial cells LM Ql (Urine sed) FEW Abnormal NONE SEEN /RARE [facility] Comment on above: Performed By: #### M G, RENAL, URIC #### [facility] [address] [place] [address] Dr. Tyree Botello Glucose Ql (U) Negative Normal NEGATIVE [facility] Comment on above: Performed By: #### M G, RENAL, URIC #### [facility] [address] [place] [address] Dr. Tyree Botello Hemoglobin Ql (U) SMALL Abnormal NEGATIVE The [facility] Comment on above: Performed By: #### M G, RENAL, URIC #### [facility] [address] [place] [address] Dr. Tyree Botello Ketones Ql (U) Negative Normal NEGATIVE [facility] Comment on above: Performed By: #### M G, RENAL, URIC #### [facility] [address] [place] [address] Dr. Tyree Botello LEUKOCYTES Negative Normal NEGATIVE The [facility] Comment on above: Performed By: #### M G, RENAL, URIC #### [facility] [address] [place] [address] Dr. Tyree Botello MUCOUS NONE SEEN Normal NONE SEEN [facility] Comment on above: Performed By: #### M G, RENAL, URIC #### [facility] [address] [place] [address] Dr. Tyree Botello Nitrite Ql (U) Negative Normal NEGATIVE [facility] Comment on above: Performed By: #### M G, RENAL, URIC #### [facility] [address] [place] [address] Dr. Tyree Botello pH (U) 5.0 [pH] Normal 5-9 [facility] Comment on above: Performed By: #### M G, RENAL, URIC #### [facility] [address] [place] [address] Dr. Tyree Botello RBC 0-2 Normal 0-2 [facility] Comment on above: Performed By: #### M G, RENAL, URIC #### [facility] [address] [place] [address] Dr. Tyree Botello SPEC GRAVITY >=1.030 Abnormal 1.005-<=1. 025 [facility] Comment on above: Performed By: #### M G, RENAL, URIC #### [facility] [address] [place] [address] Dr. Tyree Botello UA PROTEIN >300 Abnormal NEGATIVE/ TRACE [facility] Comment on above: Performed By: #### M G, RENAL, URIC #### [facility] [address] [place] [address] Dr. Tyree Botello Urobilinogen Qn (U) 0.2 {Jennifer'U}/dL Normal 0.2 - 1. 0 [facility] Comment on above: Performed By: #### M G, RENAL, URIC #### [facility] [address] [place] [address] Dr. Tyree Botello WBC 0-2 Abnormal NONE SEEN [facility] Comment on above: Performed By: #### M G, RENAL, URIC #### [facility] [address] [place] [address] Dr. Tyree Botello URIC ACID SERUMon 07-02-2022 Urate [Mass/Vol] 5.8 mg/dL Normal 2.6-6.0 [facility] Comment on above: Performed By: #### M G, RENAL, URIC #### [facility] [id number] Tyree Botello VITAMIN D 25 OHon 07-02-2022 VIT D 25-OH 39.2 ng/mL Normal [facility] Comment on above: Performed By: #### M G, RENAL, URIC #### [facility] [address] [place], [place] [address] Dr. Tyree Botello VIT D RANGES SEE BELOW Normal [facility] Comment on above: Result Comment: <20 ng/mL Vit D deficient 20 - <30 ng/mL Vit D insufficient 30 - 100 ng/mL Vit D sufficient >100 ng/mL Potential Toxicity Performed By: #### M G, RENAL, URIC #### [facility] [address] [place], [place] [address] Dr. Tyree Botello Albumin [Mass/volume] in Bod y fluidOrdered By: Isela Downs on 04-27-2022 Albumin (Body fld) [Mass/Vol] 3.6 g/dL 3.2-5.5 [facility] Albumin [Mass/volume] in Ser um or PlasmaOrdered By: Isela Downs on 04-27-2022 Albumin [Mass/Vol] 3.4 g/dL 2.9-4.4 [facility] Albumin/Protein.total in 24 hour Urine by ElectrophoresisOrdered By: Isela Downs on 04-27-2022 Albumin Elph (24H U) [Mass fraction] 77.3 % . [facility] Alkaline phosphatase [Enzyma tic activity/volume] in Serum or PlasmaOrdered By: Isela Downs on 04-27-2022 ALP [Catalytic activity/Vol] 57 U/L 32-92 [facility] Aspartate aminotransferase [ Enzymatic activity/volume] in Serum or PlasmaOrdered By: Isela Downs on 04-27-2022 AST [Catalytic activity/Vol] 26 U/L 10-42 [facility] Basophils Auto (Bld) [#/Vol] Ordered By: Isela Downs on 04-27-2022 Basophils (Bld) [#/Vol] 0.1 10*3/uL 0.0-0.2 [facility] Basophils/100 WBC Auto (Bld) Ordered By: Isela Downs on 04-27-2022 Basophils/100 WBC (Bld) 0.9 % . [facility] Beta 2 Microglobulin, Serumo n 04-27-2022 Beta 2 Microglobulin, Serum 1.9 mg/L Normal 0.6-2.4 [facility] Comment on above: Result Comment: [facility] [employer] 2000 Immunochemiluminometric assay (ICMA) Values obtained with different assay methods or kits cannot be used interchangeably. Results cannot be interpreted as absolute evidence of the presence or absence of malignant disease. Performed at: [address] [id number] Manager Merchandising: Loni Olvera MD, Phone: [phone] Performed By: #### C MP, CBC #### [facility] [address] #### B2-MICRO, KAPPA, SPE, UPE RAND #### [facility] , Bilirubin.total [Mass/volume ] in Serum or PlasmaOrdered By: Isela Downs on 04-27-2022 Bilirubin [Mass/Vol] 0.4 mg/dL 0.3-1.2 [facility] Calcium [Mass/volume] in Ser um or PlasmaOrdered By: Isela Downs on 04-27-2022 Calcium [Mass/Vol] 9.6 mg/dL 8.2-10.2 [facility] Carbon dioxide, total [Moles /volume] in Serum or PlasmaOrdered By: Isela Downs on 04-27-2022 CO2 [Moles/Vol] 20.1 mmol/L 22.0-30.0 [facility] Chloride [Moles/volume] in S mary ann or PlasmaOrdered By: Isela Downs on 04-27-2022 Chloride [Moles/Vol] 101 mmol/L 95-114 [facility] Complete Blood Count Auto Di ffon 04-27-2022 Basophils (Bld) [#/Vol] 0.1 10*3/uL Normal 0.0-0.2 [facility] Comment on above: Result Comment: PERF ORMED BY: [place] [address] PATHOLOGIST [employer] MURRAY PENN M.D. Performed By: #### C MP, CBC #### [address] #### B2-MICRO, KAPPA, SPE, UPE RAND #### [facility] , Basophils/100 WBC (Bld) 0.9 % Normal . [facility] Comment on above: Performed By: #### C MP, CBC #### [address] #### B2-MICRO, KAPPA, SPE, UPE RAND #### [facility] , Eosinophils (Bld) [#/Vol] 0.2 10*3/uL Normal 0.0-0.45 [facility] Comment on above: Performed By: #### C MP, CBC #### [address] #### B2-MICRO, KAPPA, SPE, UPE RAND #### [facility] , Eosinophils/100 WBC (Bld) 1.5 % Normal . [facility] Comment on above: Performed By: #### C MP, CBC #### [address] #### B2-MICRO, KAPPA, SPE, UPE RAND #### [facility] , Erythrocyte distribution width (RBC) [Ratio] 13.3 % Normal 11.9-15.3 [facility] Comment on above: Performed By: #### C MP, CBC #### [place] [address] [place] #### B2-MICRO, KAPPA, SPE, UPE RAND #### [facility] , Hematocrit (Bld) [Volume fraction] 45.4 % Normal 34.0-46.4 [facility] Comment on above: Performed By: #### C MP, CBC #### [place] [address] [place] #### B2-MICRO, KAPPA, SPE, UPE RAND #### [facility] , Hemoglobin (Bld) [Mass/Vol] 15.2 g/dL Normal 11.8-15.4 [facility] Comment on above: Performed By: #### C MP, CBC #### [address] #### B2-MICRO, KAPPA, SPE, UPE RAND #### [facility] , Lymphocytes (Bld) [#/Vol] 3.6 10*3/uL Normal 1.00-4.8 [facility] Comment on above: Performed By: #### C MP, CBC #### [address] #### B2-MICRO, KAPPA, SPE, UPE RAND #### [facility] , Lymphocytes/100 WBC (Bld) 31.7 % Normal . [facility] Comment on above: Performed By: #### C MP, CBC #### [place] [address] [place] #### B2-MICRO, KAPPA, SPE, UPE RAND #### [facility] , MCH (RBC) [Entitic mass] 30.0 pg Normal 24.7-34.3 [facility] Comment on above: Performed By: #### C MP, CBC #### [place] [address] [place] #### B2-MICRO, KAPPA, SPE, UPE RAND #### [facility] , MCV (RBC) [Entitic vol] 89.6 fL Normal 80-100 [facility] Comment on above: Performed By: #### C MP, CBC #### [place] [address] [place] #### B2-MICRO, KAPPA, SPE, UPE RAND #### [facility] , Mean Corpuscular HGB Conc 33.5 g/dL Normal 32.0-35.0 [facility] Comment on above: Performed By: #### C MP, CBC #### [place] [address] [place] #### B2-MICRO, KAPPA, SPE, UPE RAND #### [facility] , Monocytes (Bld) [#/Vol] 0.5 10*3/uL Normal 0.0-0.8 [facility] Comment on above: Performed By: #### C MP, CBC #### [place] [address] [place] #### B2-MICRO, KAPPA, SPE, UPE RAND #### [facility] , Monocytes/100 WBC (Bld) 4.8 % Normal . [facility] Comment on above: Performed By: #### C MP, CBC #### [place] [address] [place] #### B2-MICRO, KAPPA, SPE, UPE RAND #### [facility] , Neutrophils (Bld) [#/Vol] 6.9 10*3/uL Normal 1.8-7.7 [facility] Comment on above: Performed By: #### C MP, CBC #### [place] [address] [place] #### B2-MICRO, KAPPA, SPE, UPE RAND #### [facility] , Neutrophils/100 WBC (Bld) 61.1 % Normal . [facility] Comment on above: Performed By: #### C MP, CBC #### [facility] [address] [place] [address] [place] #### B2-MICRO, KAPPA, SPE, UPE RAND #### [facility] , NRBC% 0.1 /100{WBC} Normal 0-0.5 [facility] Comment on above: Performed By: #### C MP, CBC #### [address] #### B2-MICRO, KAPPA, SPE, UPE RAND #### [facility] , Platelet mean volume (Bld) [Entitic vol] 9.5 fL Normal 6.3-10.7 [facility] Comment on above: Performed By: #### C MP, CBC #### [place] [address] [place] #### B2-MICRO, KAPPA, SPE, UPE RAND #### [facility] , Platelets (Bld) [#/Vol] 257 10*3/uL Normal 150-450 [facility] Comment on above: Performed By: #### C MP, CBC #### [address] #### B2-MICRO, KAPPA, SPE, UPE RAND #### [facility] , RBC (Bld) [#/Vol] 5.07 10*6/uL High 3.60-5.00 [facility] Comment on above: Performed By: #### C MP, CBC #### [place] [address] [place] #### B2-MICRO, KAPPA, SPE, UPE RAND #### [facility] , WBC (Bld) [#/Vol] 11.3 10*3/uL Normal 3.8-11.6 [facility] Comment on above: Performed By: #### C MP, CBC #### [place] [address] [place] #### B2-MICRO, KAPPA, SPE, UPE RAND #### [facility] , Comprehensive Metabolic Pane christopher 04-27-2022 Albumin [Mass/Vol] 3.6 g/dL Normal 3.2-5.5 [facility] Comment on above: Performed By: #### C MP, CBC #### [place] [address] [place] #### B2-MICRO, KAPPA, SPE, UPE RAND #### [facility] , Albumin/Globulin [Mass ratio] 1.1 {ratio} Normal [facility] Comment on above: Performed By: #### C MP, CBC #### [address] #### B2-MICRO, KAPPA, SPE, UPE RAND #### [facility] , ALP [Catalytic activity/Vol] 57 U/L Normal 32-92 [facility] Comment on above: Performed By: #### C MP, CBC #### [place] [address] [place] #### B2-MICRO, KAPPA, SPE, UPE RAND #### [facility] , ALT [Catalytic activity/Vol] 36 U/L Normal 10-60 [facility] Comment on above: Performed By: #### C MP, CBC #### [facility] [address] [place] [address] #### B2-MICRO, KAPPA, SPE, UPE RAND #### [facility] , Anion gap [Moles/Vol] 18.2 mmol/L High 6.0-15.0 [facility] Comment on above: Performed By: #### C MP, CBC #### [address] #### B2-MICRO, KAPPA, SPE, UPE RAND #### [facility] , AST [Catalytic activity/Vol] 26 U/L Normal 10-42 [facility] Comment on above: Performed By: #### C MP, CBC #### [facility] [address] [place] [address] [place] #### B2-MICRO, KAPPA, SPE, UPE RAND #### [facility] , Bilirubin [Mass/Vol] 0.4 mg/dL Normal 0.3-1.2 [facility] Comment on above: Performed By: #### C MP, CBC #### [facility] [address] [place] [address] [place] #### B2-MICRO, KAPPA, SPE, UPE RAND #### [facility] , Calcium [Mass/Vol] 9.6 mg/dL Normal 8.2-10.2 [facility] Comment on above: Performed By: #### C MP, CBC #### [facility] [address] [place] [address] [place] #### B2-MICRO, KAPPA, SPE, UPE RAND #### [facility] , Chloride [Moles/Vol] 101 mmol/L Normal 95-114 [facility] Comment on above: Performed By: #### C MP, CBC #### [facility] [address] [place] [address] #### B2-MICRO, KAPPA, SPE, UPE RAND #### [facility] , CO2 [Moles/Vol] 20.1 mmol/L Low 22.0-30.0 [facility] Comment on above: Performed By: #### C MP, CBC #### [facility] [address] [place] [address] [place] #### B2-MICRO, KAPPA, SPE, UPE RAND #### [facility] , Creatinine [Mass/Vol] 0.90 mg/dL Normal 0.44-1.03 [facility] Comment on above: Performed By: #### C MP, CBC #### [facility] [address] [place] [address] [place] #### B2-MICRO, KAPPA, SPE, UPE RAND #### [facility] , Creatinine Clr Calc Pharmacy 83.02 Normal [facility] Comment on above: Result Comment: PERF ORMED BY: [place] [address] PATHOLOGIST JOURNALISTS AND OTHER WRITERS MURRAY PENN M.D. Performed By: #### C MP, CBC #### [facility] [address] [place] [address] [place] #### B2-MICRO, KAPPA, SPE, UPE RAND #### [facility] , Estimated GFR ( Anay > 60 [facility] Comment on above: Result Comment: GFR estimated reference range: According to KDOQI guidelines, <60 ml/min/1.73m2 is sufficient to diagnose a patient with chronic kidney disease. Performed By: #### C MP, CBC #### [facility] [address] [place] [address] [place] #### B2-MICRO, KAPPA, SPE, UPE RAND #### [facility] , Estimated GFR (Non- Am > 60 [facility] Comment on above: Performed By: #### C MP, CBC #### [place] [address] [place] #### B2-MICRO, KAPPA, SPE, UPE RAND #### [facility] , Globulin (S) [Mass/Vol] 3.3 g/dL Normal [facility] Comment on above: Performed By: #### C MP, CBC #### [place] [address] [place] #### B2-MICRO, KAPPA, SPE, UPE RAND #### [facility] , Glucose [Mass/Vol] 327 mg/dL High 70-100 [facility] Comment on above: Result Comment: [place] Glucose Reference Range is dependent on time and content of last meal. Glucose of more than 200 mg/dL in a nonstressed, ambulatory subject supports the diagnosis of Diabetes Mellitus. ADA recommended reference range Performed By: #### C MP, CBC #### [facility] [address] [place] [address] [place] #### B2-MICRO, KAPPA, SPE, UPE RAND #### [facility] , Potassium [Moles/Vol] 4.3 mmol/L Normal 3.5-5.1 [facility] Comment on above: Performed By: #### C MP, CBC #### [place] [address] [place] #### B2-MICRO, KAPPA, SPE, UPE RAND #### [facility] , Protein [Mass/Vol] 6.9 g/dL Normal 6.1-7.9 [facility] Comment on above: Performed By: #### C MP, CBC #### [facility] [address] [place] [address] [place] #### B2-MICRO, KAPPA, SPE, UPE RAND #### [facility] , Sodium [Moles/Vol] 135 mmol/L Low 136-146 [facility] Comment on above: Performed By: #### C MP, CBC #### [facility] [address] [place] [address] [place] #### B2-MICRO, KAPPA, SPE, UPE RAND #### [facility] , Urea nitrogen [Mass/Vol] 14 mg/dL Normal 9-23 [facility] Comment on above: Performed By: #### C MP, CBC #### [facility] [address] [place] [address] [place] #### B2-MICRO, KAPPA, SPE, UPE RAND #### [facility] , Creatinine and Glomerular fi ltration rate.predicted panel (S/P/Bld)Ordered By: Isela Downs on 04-27-2022 Creatinine [Mass/Vol] 0.90 mg/dL 0.44-1.03 [facility] Eosinophils Auto (Bld) [#/Vo l]Ordered By: Isela Downs on 04-27-2022 Eosinophils (Bld) [#/Vol] 0.2 10*3/uL 0.0-0.45 [facility] Eosinophils/100 WBC Auto (Bl d)Ordered By: Isela Downs on 04-27-2022 Eosinophils/100 WBC (Bld) 1.5 % . [facility] Erythrocyte distribution wid th Auto (RBC) [Ratio]Ordered By: Isela Downs on 04-27-2022 Erythrocyte distribution width (RBC) [Ratio] 13.3 % 11.9-15.3 [facility] Estimated glomerular filtrat ion rate (GFR) non- AmericanOrdered By: Isela Downs on 04-27-2022 GFR/1.73 sq M.predicted among non-blacks MDRD (S/P/Bld) [Vol rate/Area] > 60 mL/Min [facility] Free K+L LT Chains, Qn, Son 04-27-2022 Free [place] Light Chains, S 25.4 mg/L High 3.3-19.4 [facility] Comment on above: Performed By: #### C MP, CBC ####[place] [address] [address]#### B2-MICRO, KAPPA, SPE, UPE RAND ####[facility] , Free Lambda Light Chains, S 15.7 mg/L Normal 5.7-26.3 [facility] Comment on above: Performed By: #### C MP, CBC ####[address]#### B2-MICRO, KAPPA, SPE, UPE RAND ####[facility] , [place]/Lambda Ratio, S 1.62 Normal 0.26-1.65 [facility] Comment on above: Result Comment: Perf ormed at: CB - [facility] [address] [id number] Manager Merchandising: Duke Peguero PhD, Phone: [phone] PERFORMED BY: [facility] [address] [place] [address] PATHOLOGIST JOURNALISTS AND OTHER WRITERS MURRAY PENN M.D. Performed By: #### C MP, CBC ####[address]#### B2-MICRO, KAPPA, SPE, UPE RAND ####[facility] , Gamma globulin/Protein.total in 24 hour Urine by ElectrophoresisOrdered By: Isela Downs on 04-27-2022 Gamma globulin Elph (24H U) [Mass fraction] 3.7 % . [facility] Globulin Calc (S) [Mass/Vol] Ordered By: Isela Downs on 04-27-2022 Globulin (S) [Mass/Vol] 3.3 g/dL [facility] Glucose [Mass/volume] in Ser um or PlasmaOrdered By: Isela Downs on 04-27-2022 Glucose [Mass/Vol] 327 mg/dL 70-100 [facility] Comment on above: ADA recommended refe rence rangeRandom Glucose Reference Range is dependent on time and content of last meal. Glucose of more than 200 mg/dL in a nonstressed, ambulatory subject supports the diagnosis of Diabetes Mellitus. Hematocrit Auto (Bld) [Volum e fraction]Ordered By: Isela Downs on 04-27-2022 Hematocrit (Bld) [Volume fraction] 45.4 % 34.0-46.4 [facility] Hemoglobin [Mass/volume] in BloodOrdered By: Isela Downs on 04-27-2022 Hemoglobin (Bld) [Mass/Vol] 15.2 g/dL 11.8-15.4 [facility] Immunoglobulin light chains. kappa.free [Mass/volume] in SerumOrdered By: Isela Downs on 04-27-2022 Immunoglobulin light chains.kappa.free (S) [Mass/Vol] 25.4 mg/L 3.3-19.4 [facility] Immunoglobulin light chains. kappa.free/Immunoglobulin light chains.lambda.free [MassOrdered By: Isela Downs on 04-27-2022 Immunoglobulin light chains.kappa.free/Immuno globulin light chains.lambda.free (S) [Mass ratio] 1.62 0.26-1.65 [facility] Comment on above: Performed at: [address] [id number] Director: Duke Peguero PhD, Phone: [phone] Immunoglobulin light chains. lambda.free [Mass/volume] in Serum or PlasmaOrdered By: Isela Downs on 04-27-2022 Immunoglobulin light chains.lambda.free [Mass/Vol] 15.7 mg/L 5.7-26.3 [facility] Christopher 04-27-2022 L ----- Specimen: [id number] Received: 04/27/22 Status: CHRIS Estuardo Num: [id number] Spec Type: Sum Rep Subm Dr: Isela Downs MD Tissues: A SUMMARY () Procedures: Bm Smear Age/ Patient Sex Location Account Attending Physician Keya Ley 51/F XT [id number] Isela Downs MD SPEC NUM: [id number] RECD: 04/27/22 STATUS: CHRSI PETERSONGuera NUM: [id number] FRANKLIN: 04/27/22- SUBM DR: Isela Downs MD ENTERED: 04/27/[address]: SPEC TYPE: Sum Rep DEPT: SUM REP ORDERED: Bm Smear ORDERED: Bm Smear Gross CLINICAL DATA: 51 year old female with hypercalcemia, renal insufficiency, underwent a bone marrow evaluation for a plasma cell dyscrasia. SUMMARY DIAGNOSIS: Bone marrow, left posterior iliac crest, core biopsy, clot sections, aspirate smears and touch prep: - Normocellular for age bone marrow (50% cellularity) with progressive trilineage hematopoiesis. - Focally increased plasma cells (7%). See comprehensive assessment. - No evidence for reticulin fibrosis (0/3+) and amyloid deposits. - Stainable iron store present (1+/4+). - Decreased sideroblastic iron, negative for ringed sideroblasts. Peripheral blood smear evaluation: - Slight erythrocytosis, negative for rouleaux formation and schistocytes. - White blood cells are adequate with some enlarged neutrophils with the hypersegmented nuclei. - Platelets are adequate, negative for platelet clumps. COMPREHENSIVE ASSESSMENT: There is no evidence of neoplastic plasma cells in the current specimen by ancillary studies. Focal plasmacytosis is most likely reactive with kappa to lambda ratio 1.1 to 1. Clinical correlation and follow up are recommended as clinically indicated. Specimen: [id number] Received: 04/27/22 Status: CHRIS Marte Num: [id number] Spec Type: [place] Dr: Isela Downs MD Tissues: A SUMMARY (BM23) Procedures: Bm Smear Patient: Keya Ley [id number] (Continued) Specimen: [id number] Received: 04/27/22 (Continued) Darnell (Continued) Signed (signature on file) Stephanie Brown MD 05/14/22 0805 Specimen: [id number] Received: 04/27/22 Status: CHRIS Estuardo Num: [id number] Spec Type: Sum Rep Rita Dr: Isela Downs MD Tissues: A SUMMARY (BM) Procedures: Bm Smear Patient: Keya Ley [id number] () Specimen: [id number] Received: 04/27/22 (Continued) Gross (Continued) MORPHOLOGY/IMMUNOHISTOCHE TONI: Bone marrow cells show progressive trilineage maturation with 2.8 myeloid to erythroid ratio and no significant morphologic abnormalities. Scant (<1%) of plasma cells are noted without significant morphologic abnormalities. CD168 highlights plasma cells. In one area, they appear increased (7%) with formation of small aggregates. Cyclin D1 is negative in plasma cells. Reticulin stain shows no evidence of reticulin fibrosis (0/3+). Congo red is negative for amyloid deposition under the birefringent light. Iron stain performed on core biopsy shows stainable iron store (1+/4+). Iron stain highlights decreased sideroblastic iron without formation ringed sideroblasts. [place] and Lambda MICHAELA reveals 1.1 to 1 kappa to lambda ratio. FLOW CYTOMETRY ([employer], 3815021 / [id number], 05/01/2022): No diagnostic immunophenotypic abnormalities with plasma cells 0.1%. FISH STUDIES ([employer], 9183574 / [id number], ): Plasma cell enrichment was performed using CD138 coated beats area. Results: Normal. There is no evidence of abnormalities. CYTOGENETICS ([employer], 2187500 / [id number], 05/04/2022): Karyotype: 46,XX[20] Normal female karyotype MOLECULAR STUDIES: Not performed NOTE: I have reviewed the patient's history, medical records, the pertinent gross findings, all microscopic materials, discussed the case with the clinician when appropriate, and have rendered the Summary Diagnosis. The Comprehensive Pathology Report is performed upon request of Dr. Spangler (more content not included)... [facility] L ----- Specimen: [id number] Received: 04/27/22 Status: CHRIS Marte Num: [id number] Spec Type: Bone Marro Subm Dr: Isela Downs MD Tissues: A Bone Marrow Aspirate (Clot) (LT POST SUP ILIAC CREST) B Bone Marrow Biopsy/Core (LT POST SUP ILIaC CREST) Procedures: Reticulum I, Peripheral Smr, Iron/3, HE/4, Gross/Micro L4/2, Bm Smear/2, Congo Red, CD138, CD31, CYCLIN D1, E CADHERIN, Decalcification, Bone Marrow TP, SMEARS/4 Age/ Patient Sex Location Account Attending Physician Keya Ley 51/F XT [id number] Isela Downs MD SPEC NUM: [id number] RECD: 04/27/22 STATUS: CHRIS MARTE NUM: [id number] FRANKLIN: 04/27/[address] [facility] [address]: Isela Downs MD ENTERED: 04/27/[address] [facility] [address]: SPEC TYPE: Bone Marro DEPT: BM ORDERED: Reticulum I, Peripheral Smr, Iron/3, HE/4, Gross/Micro L4/2, Bm Smear/2, Congo Red, CD138, CD31, CYCLIN D1, E CADHERIN, Decalcification, Bone Marrow TP, SMEARS/4 ORDERED: Reticulum I, Peripheral Smr, Iron/3, HE/4, Gross/Micro L4/2, Bm Smear/2, Congo Red, CD138, CD31, CYCLIN D1, E CADHERIN, Decalcification, Bone Marrow TP, SMEARS/4 Supplemental Report Addendum 1 Entered: 05/14/22 The supplemental report is issued to incorporate the result of kappa and lambda MICHAELA study performed on core biopsy B1 at [facility] and interpreted at [facility]. Controls are adequate. [place] and lambda MICHAELA shows two populations of plasma cells with kappa to lambda ratio 1.1 to 1. Focal plasmacytosis is most likely reactive. Image analysis of H E, kappa and lambda stained material, positive and negative controls is performed using [place] platform of [facility]. CPT: 61461, 20973 Specimen: [id number] Received: 04/27/22-120 Status: CHRIS Marte Num: [id number] Spec Type: Bone Marro Rita Dr: Isela Downs MD Tissues: A Bone Marrow Aspirate (Clot) (LT POST SUP ILIAC CREST) B Bone Marrow Biopsy/Core (LT POST SUP ILIaC CREST) Procedures: Reticulum I, Peripheral Smr, Iron/3, HE/4, Gross/Micro L4/2, Bm Smear/2, Congo Red, CD138, CD31, CYCLIN D1, E CADHERIN, Decalcification, Bone Marrow TP, SMEARS/4 Patient: Keya Ley [id number] (Continued) Specimen: [id number] Received: 04/27/22 (Continued) Supplemental Report (Continued) Signed (signature on file) Stephanie Brown MD 05/01/22 0944 Specimen: [id number] Received: 04/27/22 Status: CHRIS Estuardo Num: [id number] Spec Type: Bone Marro Subm Dr: Isela Downs MD Tissues: A Bone Marrow Aspirate (Clot) (LT POST SUP ILIAC CREST) B Bone Marrow Biopsy/Core (LT POST SUP ILIaC CREST) Procedures: Reticulum I, Peripheral Smr, Iron/3, HE/4, Gross/Micro L4/2, Bm Smear/2, Congo Red, CD138, CD31, CYCLIN D1, E CADHERIN, Decalcification, Bone Marrow TP, SMEARS/4 Patient: Keya Ley [id number] (Continued) Specimen: [id number] Received: 04/27/22-1201 (Continued) Supplemental Report (Continued) Addendum Signed (signature on file) Stephanie Brown MD 05/14/22811 Pathological Diagnosis Bone marrow, left posterior iliac crest, core biopsy, clot sections, aspirate smears and touch prep: - Normocellular for age bone marrow (50% cellularity) with progressive trilineage hemato poiesis. - Focally increased plasma cells (7%). See comment. - No evidence for reticulin fibrosis (0/3+) and amyloid deposits. - Stainable iron store present (1+/4+). - Decreased sideroblastic iron, negative for ringed sideroblasts. Peripheral blood smear evaluation: - Slight erythrocytosis, negative for rouleaux formation and schistocytes. - White blood cells are adequate, with some enlarged neutrophils with the hypersegmented nuclei, plasmacytoid lymphocytes are noted, no atypical plasma cells identified. - Platelets are adequate, negative for platelet clumps. Comment: The bone marrow is hemodiluted. Core biopsy reveals mild plasmacytosis. [place] and lambdennis (more content not included)... Normal [facility] Leukocytes [#/volume] correc kaykay for nucleated erythrocytes in Blood by Automated counOrdered By: Isela Downs on 04-27-2022 WBC corrected for nucl RBC Auto (Bld) [#/Vol] 11.3 10*3/uL 3.8-11.6 [facility] Lymphocytes Auto (Bld) [#/Vo l]Ordered By: Isela Downs on 04-27-2022 Lymphocytes (Bld) [#/Vol] 3.6 10*3/uL 1.00-4.8 [facility] Lymphocytes/100 WBC Auto (Bl d)Ordered By: Isela Downs on 04-27-2022 Lymphocytes/100 WBC (Bld) 31.7 % . [facility] MCH Auto (RBC) [Entitic mass ]Ordered By: Isela Downs on 04-27-2022 MCH (RBC) [Entitic mass] 30.0 pg 24.7-34.3 [facility] MCHC Auto (RBC) [Mass/Vol]Or dered By: Isela Downs on 04-27-2022 MCHC (RBC) [Mass/Vol] 33.5 g/dL 32.0-35.0 [facility] MCV Auto (RBC) [Entitic vol] Ordered By: Isela Downs on 04-27-2022 MCV (RBC) [Entitic vol] 89.6 fL 80-100 [facility] Monocytes Auto (Bld) [#/Vol] Ordered By: Isela Downs on 04-27-2022 Monocytes (Bld) [#/Vol] 0.5 10*3/uL 0.0-0.8 [facility] Monocytes/100 WBC Auto (Bld) Ordered By: Isela Downs on 04-27-2022 Monocytes/100 WBC (Bld) 4.8 % . [facility] Neutrophils Auto (Bld) [#/Vo l]Ordered By: Isela Downs on 04-27-2022 Neutrophils (Bld) [#/Vol] 6.9 10*3/uL 1.8-7.7 [facility] Neutrophils/100 WBC Auto (Bl d)Ordered By: Isela Downs on 04-27-2022 Neutrophils/100 WBC (Bld) 61.1 % . [facility] No Panel InformationOrdered By: Isela Downs on 04-27-2022 Urine Random Prot Electrophor Note See comment . [facility] Comment on above: Protein electrophore sis scan will follow via computer,mail, or spanisher delivery.Performed at: [facility] [address] [id number] Director: Duke Peguero PhD, Phone: [phone] Estimated GFR () > 60 mL/Min [facility] Comment on above: GFR estimated refere nce range: According to KDOQI guidelines, <60 ml/min/1.73m2 is sufficient to diagnose a patient with chronic kidney disease. Pharmacy Creatinine Clearance (Chem 83.02 [facility] Protein Electrophoresis M-Sarthak Not observed g/dL Not Observed [facility] Protein Electrophoresis Note See comment . [facility] Comment on above: Protein electrophore sis scan will follow via computer,mail, or spanisher delivery.Performed at: [facility] [address] [id number] Director: Duke Peguero PhD, Phone: [phone] Nucleated erythrocytes [Pres ence] in Blood by Automated countOrdered By: Isela Downs on 04-27-2022 Nucleated RBC Auto Ql (Bld) 0.1 /100{WBC} 0-0.5 [facility] Platelet mean volume Auto (B ld) [Entitic vol]Ordered By: Isela Downs on 04-27-2022 Platelet mean volume (Bld) [Entitic vol] 9.5 fL 6.3-10.7 [facility] Platelets Auto (Bld) [#/Vol] Ordered By: Isela Downs on 04-27-2022 Platelets (Bld) [#/Vol] 257 10*3/uL 150-450 [facility] Potassium [Moles/volume] in Serum or PlasmaOrdered By: Isela Downs on 04-27-2022 Potassium [Moles/Vol] 4.3 mmol/L 3.5-5.1 [facility] Protein Electro, Random Urin atif 04-27-2022 Albumin, Urine 77.3 % Normal . [facility] Comment on above: Performed By: #### C MP, CBC ####[facility] [place] [address] [place]#### B2-MICRO, KAPPA, SPE, UPE RAND ####[facility] , Snbme-9-Gcksbvin, Urine 2.6 % Normal . [facility] Comment on above: Performed By: #### C MP, CBC ####[place] [address] [address]#### B2-MICRO, KAPPA, SPE, UPE RAND ####[facility] , Eybsk-2-Mjoxjvon, Urine 4.2 % Normal . [facility] Comment on above: Performed By: #### C MP, CBC ####[place] [address] [place]#### B2-MICRO, KAPPA, SPE, UPE RAND ####[facility] , Beta Globulin, Urine 12.2 % Normal . [facility] Comment on above: Performed By: #### C MP, CBC ####[place] [address] [place]#### B2-MICRO, KAPPA, SPE, UPE RAND ####[facility] , Gamma Globulin, Urine 3.7 % Normal . [facility] Comment on above: Performed By: #### C MP, CBC ####[address]#### B2-MICRO, KAPPA, SPE, UPE RAND ####[facility] , M-Sarthak % Not Observed Normal Not Observed [facility] Comment on above: Performed By: #### C MP, CBC ####[place] [address] [place]#### B2-MICRO, KAPPA, SPE, UPE RAND ####[facility] , Please Note: Normal . [facility] Comment on above: Result Comment: Prot ein electrophoresis scan will follow via computer, mail, or spanisher delivery. Performed at: [facility] [id number] Manager Merchandising: Duke Peguero PhD, Phone: [phone] PERFORMED BY: [place] [address] PATHOLOGIST JOURNALISTS AND OTHER WRITERS MURRAY PENN M.D. Performed By: #### C MP, CBC ####[place] [address] [place]#### B2-MICRO, KAPPA, SPE, UPE RAND ####[facility] , Protein (U) [Mass/Vol] 183.6 mg/dL Normal Not Estab. [facility] Comment on above: Performed By: #### C MP, CBC ####[address]#### B2-MICRO, KAPPA, SPE, UPE RAND ####[facility] , Protein Electrophoresis, Ser umon 04-27-2022 Albumin [Mass/Vol] 3.4 g/dL Normal 2.9-4.4 [facility] Comment on above: Performed By: #### C MP, CBC #### [address] #### B2-MICRO, KAPPA, SPE, UPE RAND #### [facility] , Albumin/Globulin [Mass ratio] 1.0 {ratio} Normal 0.7-1.7 [facility] Comment on above: Performed By: #### C MP, CBC #### [place] [address] [place] #### B2-MICRO, KAPPA, SPE, UPE RAND #### [facility] , Gwvgw-2-Yztdcnpw 0.3 g/dL Normal 0.0-0.4 [facility] Comment on above: Performed By: #### C MP, CBC #### [place] [address] [place] #### B2-MICRO, KAPPA, SPE, UPE RAND #### [facility] , Ygsyh-1-Fxzgghyd 1.6 g/dL High 0.4-1.0 [facility] Comment on above: Performed By: #### C MP, CBC #### [facility] [address] [place] [address] [place] #### B2-MICRO, KAPPA, SPE, UPE RAND #### [facility] , Beta Globulin 1.1 g/dL Normal 0.7-1.3 [facility] Comment on above: Performed By: #### C MP, CBC #### [address] #### B2-MICRO, KAPPA, SPE, UPE RAND #### [facility] , Gamma Globulin 0.5 g/dL Normal 0.4-1.8 [facility] Comment on above: Performed By: #### C MP, CBC #### [address] #### B2-MICRO, KAPPA, SPE, UPE RAND #### [facility] , Globulin (S) [Mass/Vol] 3.4 g/dL Normal 2.2-3.9 [facility] Comment on above: Performed By: #### C MP, CBC #### [place] [address] [place] #### B2-MICRO, KAPPA, SPE, UPE RAND #### [facility] , M-Sarthak Not Observed Normal Not Observed [facility] Comment on above: Performed By: #### C MP, CBC #### [place] [address] [place] #### B2-MICRO, KAPPA, SPE, UPE RAND #### [facility] , Protein [Mass/Vol] 6.8 g/dL Normal 6.0-8.5 [facility] Comment on above: Performed By: #### C MP, CBC #### [place] [address] [place] #### B2-MICRO, KAPPA, SPE, UPE RAND #### [facility] , SPE-Note Normal . [facility] Comment on above: Result Comment: Prot ein electrophoresis scan will follow via computer, mail, or spanisher delivery. Performed at: [facility] [id number] Manager Merchandising: Duke Peguero PhD, Phone: [phone] Performed By: #### C MP, CBC #### [facility] [address] [place] [address] #### B2-MICRO, KAPPA, SPE, UPE RAND #### [facility] , Protein [Mass/volume] in Ser um or PlasmaOrdered By: Isela Downs on 04-27-2022 Protein [Mass/Vol] 6.9 g/dL 6.1-7.9 [facility] Protein [Mass/Vol] 6.8 g/dL 6.0-8.5 [facility] Protein [Mass/volume] in Uri neOrdered By: Isela Downs on 04-27-2022 Protein (U) [Mass/Vol] 183.6 mg/dL Not Estab. F [facility] Protein.monoclonal/Protein.t otal in 24 hour Urine by ElectrophoresisOrdered By: Isela Downs on 04-27-2022 Protein.monoclonal Elph (24H U) [Mass fraction] Not observed % Not Observed [facility] RBC Auto (Bld) [#/Vol]Ordere d By: Isela Downs on 04-27-2022 RBC (Bld) [#/Vol] 5.07 10*6/uL 3.60-5.00 [facility] Serum globulin measurement ( mass/volume)Ordered By: Isela Downs on 04-27-2022 Globulin (S) [Mass/Vol] 3.4 g/dL 2.2-3.9 [facility] Serum or plasma alanine barroso otransferase measurement without P-5'-P (enzymatic activiOrdered By: Isela Downs on 04-27-2022 ALT No additional P-5'-P [Catalytic activity/Vol] 36 U/L 10-60 [facility] Serum or plasma albumin/glob ulin mass ratioOrdered By: Isela Downs on 04-27-2022 Albumin/Globulin [Mass ratio] 1.1 {ratio} [facility] Albumin/Globulin [Mass ratio] 1.0 {ratio} 0.7-1.7 [facility] Serum or plasma alpha 1 glob ulin measurement by electrophoresis (mass/volume)Ordered By: Isela Downs on 04-27-2022 Alpha 1 globulin Elph [Mass/Vol] 0.3 g/dL 0.0-0.4 [facility] Serum or plasma alpha 2 glob ulin measurement by electrophoresis (mass/volume)Ordered By: Isela Downs on 04-27-2022 Alpha 2 globulin Elph [Mass/Vol] 1.6 g/dL 0.4-1.0 [facility] Serum or plasma anion gap de terminationOrdered By: Isela Downs on 04-27-2022 Anion gap [Moles/Vol] 18.2 mmol/L 6.0-15.0 [facility] Serum or plasma beta globuli n measurement by electrophoresis (mass/volume)Ordered By: Isela Downs on 04-27-2022 Beta globulin Elph [Mass/Vol] 1.1 g/dL 0.7-1.3 [facility] Serum or plasma [id number] globulin measurement (mass/volume)Ordered By: Isela Downs on 04-27-2022 [id number]-6-[id number] [Mass/Vol] 1.9 ug/mL 0.6-2.4 [facility] Comment on above: Siemens Immulite 200 0 Immunochemiluminometric assay (ICMA)Values obtained with different assay methods or kits cannotbe used interchangeably. Results cannot be interpreted asabsolute evidence of the presence or absence of malignantdisease.Performed at: - [address] [id number] Director: Loni Olvera MD, Phone: [phone] Serum or plasma gamma globul in measurement by electrophoresis (mass/volume)Ordered By: Isela Downs on 04-27-2022 Gamma globulin Elph [Mass/Vol] 0.5 g/dL 0.4-1.8 [facility] Sodium [Moles/volume] in Ser um or PlasmaOrdered By: Isela Downs on 04-27-2022 Sodium [Moles/Vol] 135 mmol/L 136-146 [facility] Urea nitrogen [Mass/volume] in Serum or PlasmaOrdered By: Isela Downs on 04-27-2022 Urea nitrogen [Mass/Vol] 14 mg/dL 9-23 [facility] Urine alpha 1 globulin/total protein by electrophoresisOrdered By: Isela Downs on 04-27-2022 Alpha 1 globulin Elph (U) [Mass fraction] 2.6 % . [facility] Urine alpha 2 globulin/total protein ratio by electrophoresisOrdered By: Isela Downs on 04-27-2022 Alpha 2 globulin Elph (U) [Mass fraction] 4.2 % . [facility] Urine beta globulin measurem ent by electrophoresis (mass/volume)Ordered By: Isela Downs on 04-27-2022 Beta globulin Elph (U) [Mass/Vol] 12.2 % . [facility] WBC Auto (Bld) [#/Vol]Ordere d By: Isela Downs on 04-27-2022 WBC (Bld) [#/Vol] 11.3 10*3/uL 3.8-11.6 [facility] PARATHYROID HORMONE- RELATED PEPTIDEon 04-20-2022 PTHrP (PTH-Related Peptide) <2.0 Normal [facility] Comment on above: Result Comment: This test was developed and its performance characteristics determined by [employer]. It has not been cleared or approved by the Food and Drug Administration. Reference Range: All Ages: <2.0 The PTHrP assay should not be used to exclude cancer or screen tumor patients for humoral hypercalcemia of malignancy (HHM). The results should always be assessed in conjunction with the patient's medical history, clinical examination, and other findings. If test results are clinically discordant, please contact the laboratory. Performed By: #### M G, RENAL, URIC #### [facility] [address] [place] [address] Dr. Tyree Botello IMMUNOFIXATION (CHERRI), URINEo n 04-16-2022 CHERRI Interpretation:U Comment Normal [facility] Comment on above: Result Comment: No m onoclonality detected. Performed By: #### M G, RENAL, URIC #### [facility] [address] [address] [address] Tyree Botello PROTEIN ELECTROPHERESIS URNEFTALY Hurtado RANDOMon 04-16-2022 Albumin, U 80.3 % Normal [facility] Comment on above: Performed By: #### M G, RENAL, URIC #### [facility] [address] [address] [address] Tyree Botello Alpha-1 Globulin U 4.3 % Normal [facility] Comment on above: Performed By: #### M G, RENAL, URIC #### [facility] [address] [address] [address] Tyree Botello Alpha-2 Glubulin U 2.9 % Normal [facility] Comment on above: Performed By: #### M G, RENAL, URIC #### [facility] [address] [place] [address] Dr. Tyree Botello Beta Globulin, U 10.2 % Normal [facility] Comment on above: Performed By: #### M G, RENAL, URIC #### [facility] [address] [address] [address] Tyree Botello Gamma Globulin U 2.2 % Normal [facility] Comment on above: Performed By: #### M G, RENAL, URIC #### [facility] [address] [address] [address] Tyree Botello M-Sarthak, % Not Observed Normal Not Observed [facility] Comment on above: Performed By: #### M G, RENAL, URIC #### [facility] [address] [address] [address] Tyree Botello PDF . Normal [facility] Comment on above: Performed By: #### M G, RENAL, URIC #### [facility] [address] [place] [address] Dr. Tyree Botello Please note: Comment Normal [facility] Comment on above: Result Comment: Prot ein electrophoresis scan will follow via computer, mail, or spanisher delivery. Performed By: #### M G, RENAL, URIC #### [facility] [address] [address] [address] Tyree Botello Protein (U) [Mass/Vol] 181.5 mg/dL Normal Not Estab. T [facility] Comment on above: Performed By: #### M G, RENAL, URIC #### [facility] [address] [place] [address] Dr. Tyree Botello VIT D 1 25 DIHYDROXYon 04-14 Calcitriol(1,25 di-OH Vit D) 12.5 pg/mL Critically low 24.8-81.5 [facility] Comment on above: Performed By: #### M G, RENAL, URIC #### [facility] [address] [place] [address] Dr. Tyree Botello IMMUNOFIXATION(CHERRI),PROTEIN ELEC(PE),FREon 04-13-2022 Albumin [Mass/Vol] 3.5 g/dL Normal 2.9-4.4 [facility] Comment on above: Performed By: #### I FEPEFL #### [facility] [address] [place] [address] Dr. Tyree Botello Albumin/Globulin [Mass ratio] 1.1 {ratio} Normal 0.7-1.7 [facility] Comment on above: Performed By: #### I FEPEFL #### [facility] [address] [place] [address] Dr. Tyree Botello Bcgan-2-Pihifibk 0.2 g/dL Normal 0.0-0.4 [facility] Comment on above: Performed By: #### I FEPEFL #### [facility] [address] [place] [address] Dr. Tyree Botello Fqtjm-4-[place] 1.5 g/dL Critically high 0.4-1.0 [facility] Comment on above: Performed By: #### I FEPEFL #### [facility] [address] [place] [address] Dr. Tyree Botello Beta Globulin 1.3 g/dL Normal 0.7-1.3 [facility] Comment on above: Performed By: #### I FEPEFL #### [facility] [address] [place] [address] Dr. Tyree Botello Free [place] Lt Chains,S 25.5 mg/L Critically high 3.3-19.4 [facility] Comment on above: Performed By: #### I FEPEFL #### [facility] [address] [address] [address] Tyree Botello Free [place]ambda Lt Chains,S 15.9 mg/L Normal 5.7-26.3 [facility] Comment on above: Performed By: #### I FEPEFL #### [facility] [address] [place] [address] Dr. Tyree Botello Gamma Globulin 0.5 g/dL Normal 0.4-1.8 [facility] Comment on above: Performed By: #### I FEPEFL #### [facility] [address] [place] [address] Dr. Tyree Botello Globulin (S) [Mass/Vol] 3.5 g/dL Normal 2.2-3.9 [facility] Comment on above: Performed By: #### I FEPEFL #### [facility] [address] [place] [address] Dr. Tyree Botello Immunofixation Result, Serum Comment: Normal [facility] Comment on above: Result Comment: Pres ence of monoclonal protein is unclear at this time. Suggest repeat in 3 to 6 months if clinically indicated. Performed By: #### I FEPEFL #### [facility] [address] [place] [address] Dr. Tyree Botello Immunoglobulin A, Qn, Serum 266 mg/dL Normal 87-352 [facility] Comment on above: Performed By: #### I FEPEFL #### [facility] [address] [place] [address] Dr. Tyree Botello Immunoglobulin G, Qn, Serum 517 mg/dL Critically low 586-1602 [facility] Comment on above: Performed By: #### I FEPEFL #### [facility] [address] [place] [address] Dr. Tyree Botello Immunoglobulin M, Qn, Serum 118 mg/dL Normal 26-217 [facility] Comment on above: Performed By: #### I FEPEFL #### [facility] [address] [place] [address] Dr. Tyree Botello [place]/Lambda Ratio, S 1.60 Normal 0.26-1.65 [facility] Comment on above: Performed By: #### I FEPEFL #### [facility] [address] [place] [address] Dr. Tyree Botello M-Sarthak Not Observed Normal Not Observed [facility] Comment on above: Performed By: #### I FEPEFL #### [facility] [address] [place] [address] Dr. Tyree Botello PDF . Normal [facility] Comment on above: Performed By: #### I FEPEFL #### [facility] [address] [place] [address] Dr. Tyree Botello Please note: Comment Normal [facility] Comment on above: Result Comment: Prot ein electrophoresis scan will follow via computer, mail, or spanisher delivery. Performed By: #### I FEPEFL #### [facility] [address] [place] [address] Dr. Tyree Botello Protein [Mass/Vol] 7.0 g/dL Normal 6.0-8.[address] [facility] Comment on above: Performed By: #### I FEPEFL #### [facility] [address] [place] [address] Dr. Tyree Botello PTH INTACTon 04-06-2022 PTH, Intact 9 pg/mL Critically low 15-[address] [facility] Comment on above: Performed By: #### P THINT #### [facility] [address] [place] [address] Dr. Tyree Botello HEMOGRAM AND PLATELon 2022 Hematocrit (Bld) [Volume fraction] 51.5 % Critically high 36.0-48.[address] [facility] Comment on above: Performed By: #### M G, RENAL, URIC #### [facility] [address] [place] [address] Dr. Tyree Botello Hemoglobin (Bld) [Mass/Vol] 16.2 g/dL Critically high 12.0-16.0 [facility] Comment on above: Performed By: #### M G, RENAL, URIC #### [facility] [address] [place] [address] Dr. Tyree Botello MCH (RBC) [Entitic mass] 30.1 pg Normal 26.7-34.0 [facility] Comment on above: Performed By: #### M G, RENAL, URIC #### [facility] [address] [place] [address] Dr. Tyree Botello MCHC (RBC) [Mass/Vol] 31.5 g/dL Normal 29.9-35.2 [facility] Comment on above: Performed By: #### M G, RENAL, URIC #### [facility] [address] [place] [address] Dr. Tyree Botello MCV (RBC) [Entitic vol] 95.7 fL Normal 81.0-99.0 [facility] Comment on above: Performed By: #### M G, RENAL, URIC #### [facility] [address] [place] [address] Dr. Tyree Botello PLT 280 103/ul Normal 150-[address] [facility] Comment on above: Performed By: #### M G, RENAL, URIC #### [facility] [address] [place] [address] Dr. Tyree Botello RBC 5.38 106/ul Normal 4.20-5.[address] [facility] Comment on above: Performed By: #### M G, RENAL, URIC #### [facility] [address] [place] [address] Dr. Tyree Botello WBC 11.7 103/ul Critically high 4.0-11.0 [facility] Comment on above: Performed By: #### M G, RENAL, URIC #### [facility] [address] [place] [address] Dr. Tyree Botello MAGNESIUMon 04-05-2022 Magnesium [Mass/Vol] 1.1 mg/dL Critically low 1.8-2.4 [facility] Comment on above: Performed By: #### M G, URIC, RENAL #### [facility] [address] [address] [address] Tyree Botello RENAL FUNCTION PANELon 04-05 Albumin [Mass/Vol] 3.5 g/dL Normal 3.4-5.0 [facility] Comment on above: Performed By: #### M G, URIC, RENAL #### [facility] [address] [address] [address] Tyree Botello Calcium [Mass/Vol] 11.5 mg/dL Critically high 8.5-10.1 [facility] Comment on above: Performed By: #### M G, URIC, RENAL #### [facility] [address] [place] [address] Dr. Tyree Botello Chloride [Moles/Vol] 95 mmol/L Critically low 98-107 [facility] Comment on above: Performed By: #### M G, URIC, RENAL #### [facility] [address] [place] [address] Dr. Tyree Botello CO2 [Moles/Vol] 28.3 mmol/L Normal 21.0-32.0 [facility] Comment on above: Performed By: #### M G, URIC, RENAL #### [facility] [address] [place] [address] Dr. Tyree Botello Creatinine [Mass/Vol] 1.17 mg/dL Critically high 0.55-1.02 [facility] Comment on above: Performed By: #### M G, URIC, RENAL #### [facility] [address] [place] [address] Dr. Tyree Botello EGFR-AF MALAGASY 59 mL/min/1.73m2 Critically low >=60 [facility] Comment on above: Performed By: #### M G, URIC, RENAL #### [facility] [address] [address] [address] Tyree Botello EGFR-NON AF MALAGASY 49 mL/min/1.73m2 Critically low >=60 [facility] Comment on above: Performed By: #### M G, URIC, RENAL #### [facility] [address] [address] [address] Tyree Botello Glucose [Mass/Vol] 229 mg/dL Critically high 74-106 T [facility] Comment on above: Performed By: #### M G, URIC, RENAL #### [facility] [address] [place] [address] Dr. Tyree Botello Phosphate [Mass/Vol] 3.0 mg/dL Normal 2.6-4.7 [facility] Comment on above: Performed By: #### M G, URIC, RENAL #### [facility] [address] [place] [address] Dr. Tyree Botello Potassium [Moles/Vol] 3.5 mmol/L Normal 3.5-5.1 [facility] Comment on above: Performed By: #### M G, URIC, RENAL #### [facility] [address] [place] [address] Dr. Tyree Botello Sodium [Moles/Vol] 136 mmol/L Normal 136-145 [facility] Comment on above: Performed By: #### M G, URIC, RENAL #### [facility] [address] [place] [address] Dr. Tyree Botello Urea nitrogen [Mass/Vol] 20.0 mg/dL Critically high 7.0-18 .0 [facility] Comment on above: Performed By: #### M G, URIC, RENAL #### [facility] [address] [place] [address] Dr. Tyree Botello UA RANDOM W/MICROSCOPICon BACTERIA TRACE Abnormal NONE SEEN [facility] Comment on above: Performed By: #### U AMIC #### [facility] [address] [place] [address] Dr. Tyree Botello Bilirubin Ql (U) SMALL Abnormal NEGATIVE [facility] Comment on above: Performed By: #### U AMIC #### [facility] [address] [place] [address] Dr. Tyree Botello CAST SEEN Abnormal NONE SEEN [facility] Comment on above: Performed By: #### U AMIC #### [facility] [address] [place] [address] Dr. Tyree Botello Clarity (U) CLEAR Normal CLEAR [facility] Comment on above: Performed By: #### U AMIC #### [facility] [address] [address] [address] Tyree Botello Color (U) YELLOW Normal YELLOW [facility] Comment on above: Performed By: #### U AMIC #### [facility] [address] [address] [address] Tyree Botello Crystals LM Nom (Urine sed) NONE SEEN Normal NONE SEEN [facility] Comment on above: Performed By: #### U AMIC #### [facility] [address] [place] [address] Dr. Tyree Botello Epithelial cells LM Ql (Urine sed) MODERATE Abnormal NONE SEEN /RARE [facility] Comment on above: Performed By: #### U AMIC #### [facility] [address] [place] [address] Dr. Tyree Botello Glucose Ql (U) 500 mg/dl Abnormal NEGATIVE [facility] Comment on above: Performed By: #### U AMIC #### [facility] [address] [address] [address] Tyree Botello Hemoglobin Ql (U) MODERATE Abnormal NEGATIVE [facility] Comment on above: Performed By: #### U AMIC #### [facility] [address] [address] [address] Tyree Botello HYALINE CAST FEW Normal [facility] Comment on above: Performed By: #### U AMIC #### [facility] [address] [place] [address] Dr. Tyree Botello Ketones Ql (U) TRACE Abnormal NEGATIVE [facility] Comment on above: Performed By: #### U AMIC #### [facility] [address] [place] [address] Dr. Tyree Botello LEUKOCYTES Negative Normal NEGATIVE [facility] Comment on above: Performed By: #### U AMIC #### [facility] [address] [place] [address] Dr. Tyree Botello MUCOUS NONE SEEN Normal NONE SEEN [facility] Comment on above: Performed By: #### U AMIC #### [facility] [address] [place] [address] Dr. Tyree Botello Nitrite Ql (U) Negative Normal NEGATIVE [facility] Comment on above: Performed By: #### U AMIC #### [facility] [address] [place] [address] Dr. Tyree Botello pH (U) 5.5 [pH] Normal 5-9 [facility] Comment on above: Performed By: #### U AMIC #### [facility] [address] [address] [address] Tyree Botello RBC 2-5 Abnormal 0-2 [facility] Comment on above: Performed By: #### U AMIC #### [facility] [address] [place] [address] Dr. Tyree Botello SPEC GRAVITY >=1.030 Abnormal 1.005-<=1. 025 [facility] Comment on above: Performed By: #### U AMIC #### [facility] [address] [place] [address] Dr. Tyree Botello UA PROTEIN >300 Abnormal NEGATIVE/ TRACE [facility] Comment on above: Performed By: #### U AMIC #### [facility] [address] [place] [address] Dr. Tyree Botello Urobilinogen Qn (U) 0.2 {Jennifer'U}/dL Normal 0.2 - 1. 0 [facility] Comment on above: Performed By: #### U AMIC #### [facility] [address] [place] [address] Dr. Tyree Botello WBC 2-5 Abnormal NONE SEEN [facility] Comment on above: Performed By: #### U AMIC #### [facility] [address] [place] [address] Dr. Tyree Botello URIC ACID SERUMon 04-05-2022 Urate [Mass/Vol] 8.0 mg/dL Critically high 2.6-6.[address] [facility] Comment on above: Performed By: #### M G, URIC, RENAL #### [facility] [address] [place] [address] Dr. Tyree Botello URINE T PROTEIN CREAT RATIOo n 04-05-2022 UR PROT CREAT RAT 0.66 Normal [facility] Comment on above: Performed By: #### M G, RENAL, URIC #### [facility] [address] [address] [address] Tyree Botello UR TOTAL PROTEIN >200.0 Critically high <=12.0 [facility] Comment on above: Performed By: #### M G, RENAL, URIC #### [facility] [address] [address] [address] Tyree Botello URINE CREAT 304.32 mg/dL Critically high 20.00-300. 00 [facility] Comment on above: Performed By: #### M G, RENAL, URIC #### [facility] [address] [address] [address] Tyree Botello VITAMIN D 25 OHon 04-05-2022 VIT D 25-OH 49.7 ng/mL Normal [facility] Comment on above: Performed By: #### M G, RENAL, URIC #### [facility] [address] [address] [address] Tyree Botello VIT D RANGES SEE BELOW Normal [facility] Comment on above: Result Comment: <20 ng/mL Vit D deficient 20 - <30 ng/mL Vit D insufficient 30 - 100 ng/mL Vit D sufficient >100 ng/mL Potential Toxicity Performed By: #### M G, RENAL, URIC #### [facility] [address] [address] [address] Tyree Botello SCREENING MAMMOGRAM W/CHASE, BILATERAL*on 03-09-2022 SCREENING MAMMOGRAM W/CHASE, BILATERAL* COMPARISON: Dating back to March 06, 2021 and February 15, 2020. TECHNIQUE: 2D and 3D Tomosynthesis of the right and left breasts was performed. FINDINGS: Breast composition demonstrates almost entirely fat. Overall appearance stable. Typically benign calcifications. No suspicious microcalcifications, dominant mass lesions, or distortion is present. IMPRESSION: BI-RADS 2- Benign Mammogram Board Certified Radiologist. Accredited by the ACR and FDA. MAMMOGRAPHY IS VERY IMPORTANT TO YOUR HEALTH. THE CURRENT [employer] [employer] AND [employer] GUIDELINES RECOMMENDS ANNUAL MAMMOGRAPHY BEGINNING AT AGE 40 THIS FACILITY USES A REMINDER SYSTEM TO ENSURE ALL PATIENTS RECEIVE REMINDER NOTIFICATIONS AT THE APPROPRIATE TIME BASED ON THE RECOMMENDATIONS OF THIS EXAM. Report reported and signed by Rich Soriano on 03/13/2022 0925 Normal [facility] Senior Quality Assurance Specialist Coding Summary.on 02-15-2022 Coding Summary. CD:[id number] Gh0bW w+PGhlYWQ+JS6BZDJpO48dtOR viB4FU7gCVI3WGVYTOEAQZL7H ZB7pxOK3WHlnQ8GozbEs VrapgBHoRC77QEz9XZD4tLqhA SwxzF8ucYFhD8l6DsVcTD67tM 48VUffNEUyIgS3JxHcgrzbmDR y U2msElTheWToQol+PHRhYmxlI HdpZHRoPScxMDAlJyBzdHlsZT 7vJz4xTGXtYUAhqAscpGXpEaK j x8pwLZSdBAxaNN8auGmjR4Aqg YQ9FJYfr3t8Tk55vQS+PHRkIH U7pVkeFPofw070DgEck0pqLMV 3 gCXxEYknBXM7F56jm5D4GFFnD PGiRVY1cFY7lF9agNbkajzqZ8 DnmJHaSgM2KYF5cDKshR3inMq n fbgjpC8fSky+H53XWL0JMOHGF G8KFsr0E2MlNoeygOC+PC90YW SqCH59jQPhhAPbt1nvnMm6QzJ w UCBcQRW3eTgjZJvag8FdWOFmS 40muJJam2Q3WYNepHwalSPdFs XvrMZ9wF7sXDfjshzak4qxsuo n Sbqph2usok35gH92N33tPCjwE SAaJOS8MTZfLLCzeJfper8idN 9wIi8+AEemz2qoc3wejUi7DjN w XUSyuiYqrXffPNW6m1EbGr31J 1SpuZtra1KgPyd7fr81lBIyv7 J0jJZ2QDekDMUydJ3gJZenRlR 6 JRBdUhGuzU56xDVbJFhxMb2ef JkuiMzwWQ6lSMXdzfuqTKEcqY 4eYMJcvVAneGikOT4xLTOrrcl m r222CyYlLZX6IFAmgDAhV3Sir X9gVcQlUIWeROIuM2FouPInCH qxG941JNfjNtD4WXHthlCtE3R s ASRdlDnnUaY3c0D1Pp3Sl2Bky qoaJWT3JJusRJLtVrJ2EnZnKj D9H0JlTnp8XODjjLsiTG8oG1O h PHYgcxxvxdevtIG1OEOwICZmv N77iRMtGWklVd3he3Z1c628XP LgTBTiqY17Jx1dwKgbOGNuuKJ U pZ1iesptl4gfbpuoYmYlECZdD Xr8CZj6QNAtrQntQaXrNBD8Sw H0XKW7yALqbI4owYramqfovR2 w Oyc+R29upF0mGRH4ILL0ftpqO QKpijDfKJ26XI50L5SwUynraF FibGU+QBYzqhWhhIjfCT0cFvV j t3ksi7HxLZbrR7LpNEEdYBquK dt6HSNxMUC9gVA7vS0pFNVpDQ moo1E3fPM5U4XtfgBbov3dc4k s PFFzFXaxU36nsKGkx7I4NGAfc DA7OBXpaUvdNgHfjA03Amg+PG FfdPdwo2WkCajom0txw3jrkDi 9 BkGuGLLpebUbhPjxAYJ7g1ZuZ a92G97wBAgtTUHmBDWoBQBeXX LqwLviot1cxW1eLe5+PGNvbCB 3 qXB1pB5bSMGtPyK5DSbtI980A bFimDDdJkrup9gjg5wucCo9Lj WfGSFkfnMcvJowKWD5t9AtHo9 8 T36aTHakMRRaCJWeMCHsVWDbg Spzik8otU3aNm5+CV8xz3fheo 25tR78wZP+HRQtMFX5nOwqQIq w FKUymQ7cGBtxOqF2NUFzToPkg R01gCCvEBqqPj7qdExqdGvkIE 7xTJWvwdkyl839CyWsv6pcIZT w vCKgQFwyJVE3G22km2D4LOKdR FDaKCB5uJZ6kJ8qwIixsvddiZ YcbDzobdRtuXosZWnwADfgU24 6 IHRvcDsnPlBhdGllbnQgTmFtZ Rh0Z2JzBgb5PBItsQqoVK0hoG OpPMcaFc3ybKimvJtcQL0fXTY p olchh304SnNkl4doZCPulMUrW XwcGFB5E62ds7P9GLXqKGNwXO C3uCN3hM5oiXpyifuwxVRlbPg g kgYoyZsmKBabETtcP231LAPjz OczGpIsbaGuPBSvzCS7BS71NU 13fYIuj8K3tJO2Z1BaLPQpdim t cqznqFK3YTZzYGEroK88We0cv SrkFx4pVTQqZDW9TXVnvFWdA5 CrhS0kKoRxZLImGZHmG6MqnUT t DPefY421ASlwXbG7HMLaytDxH 2ByRGLnnAmxIdR5f1C1Sy9EQ2 R1RV81AW56kSYdf6C2rLO4G1J h YQGehnvcjcetbVU0NOVfGZEmd B21Bk6fiAxrBv6jLITmXHJ2MI WiuCHuF2SntD3fImHxZELaQIT w Z7NbfWUpCBanY309NWytGmK8U AEbsfVlW5JkQHYjdXhzJxE3e9 M7Pq7SNKg9MS74BN07mKPtt0I 5 tYW8D5UfKXRsyvcukokfpVC9C WZvWJWcqO30Zu0iiYxsAr5kZD SoSFR9YPWjsIEfR3TmsW0vElI j MLCkOWNoQ2RsnCKhLTbaI749V XxrAvL1ERRqanOsK6YcXBNrpU cjSsO2y0Q1Gg1FUSMeUI21GTC 5 tUS6UP95QR60C4QlOzebsUVcd +PHRhYmxlIHdpZHRoPScxMD TnXxOoyEgkND5vBu7eGDYlSZE v qVbxaSXtRkRwt6otFVHuETvjV Z7xjXxnU8VylBC7FIKdz2t4Qs 27N94zI2PdlWN+KYBrwYF0vTI 0 eL7vTlSpIqE4EHghF255ClYqu KEhMmfvb2cpn4ndzSv8XeG8LZ FemsXrqNdbMAE6n8BjBc07N26 s IHdpZHRoPSIxNSUiIHZhbGlnb k5ofW0qXv7+DXPbgYR0hRY9hZ 0hMjPhCfY4ZEbdD566UnIccCZ v Ehaie4ety8ingPy5YnRzNPRdy yDjeOjgYBH8o5PgVs16D2IctU htu0FqVqf9wt05dHLos1Z8vBX 9 U5GsMAMbwyljdLGdkCwkMG3pG PKnjoumNAWomF6lGPLnZ8a7Nw ZiEeI7OGuoK1KkxwT8SHAlsOE g VXrmZQR1E82rb9J0KBVhGUTbC QZ5kON5bL1omLaodkgwuWCaaW nhheTclNpgPCbhWRaxI808QZC v oRaiDKVlnA1nVTRkiMJgbXytQ H3gOHVqxcixKkDGC1cJTMNqOW xPVUVMTEEgTDwvdGQ+PHRkIHN 0 aMmyDPrvFRLupJ3eSQFdR5k6Z nBcHeB8KJilF9HpWIShipcrNv 57cF0kThPqAsW3LNvvD7YffdO 6 ZONkzBCkTCviASS1R37xf1H7H HEiWKTgBGP6fPS4tG8alRikuu ogbGVmdDsgdmVydGljYWwtYWx p J378AUPuvYjtNbFwMsM8HiM0L cA0T9BhQlh7FYDplOsnCY2ziG NsIOoyNz1gfOgnqUaiOX5hGUL p cmbdNVSkjC4aELZucEPetOqlS W3wXJLzprfco553HpAaSRL2YA JwnNKbT4YonT7dUxDfRPHwQJE w B3HlvNYgPVaxI338SXehVbH0F DEafvEiL1HrWJIusFoaBwZ0w6 U9Fz07VZXXDNNvdpzvnMJ+PHR k TLF7rVspVUtfXCCnbO1gWYKbV 2j9UoSfLdF1OAfuR6AxVNYcdu zgLb73bS8bHhRdElN4OSziP6C v zjO7TTFjnIRiXGtoNCM1M54to 0J7KUVeGDAzCTC0dCJ4fW3jxH lnbjogbGVmdDsgdmVydGljYWw t YQmeR507YYBbxUkzIvGsjVQgK TwvdGQ+BPCoCUU9uXcgEPpgEQ HevX4gLZGfR6m1WkWxHmJ4IVk u C2MgORIqxhxzHw03bX3lCfPjF vK6HVyhL1ElqnJ6PTDctZZfIT beDMI8D84eo7A9BWPvMFOpZNB 7 cVA4eL1woNrpluhmuDActKnza wTwyJejKBxfJIioV655FALlnR noVbvkYcNWrq8hRY9lIfrnvPA + RA28dq05Q1LaVwsbAkk1LTDmW WM7nJL0tN6cNIDyHQkov2G6wR B8H1HiqbFhgv7ki6lvCGGtAZn g J28aaSJlz3Y2CBUcjNL3YURuj EzkAuIrcS81Zsw+PGNvbGdyb3 MwFlpsh4cvq8wkmCd2FtMyTBC g zzUysVriTTP4i3YiVr22F31pA HdpZHRoPSIzMCUiIHZhbGlnbj 0umT9sXz2+GZOhnII2cBC6zF0 i IhPqKbZ4XPynW336OrJdkNFiT btdu4zvp3sdxFo2JyGuSHQblo OfwFfyWBO8v0MqEz86G9EpgGo y m6PpCbh7du17nBRyy7N5gXF0D 3YqGYLeegnkaONghSakGX4aZW WrhdnoWZEwbT4zAXZmZ9i4QeN w KuL2XXynH9ScvqS6KHYqdUDgP BGtxINYzH0vizjgs4kpliznFh VcTXViMQn8XWz1TMVhmBdeUvG s LQQ2YsH2FCB0hHKkcW0ebVpxd nocdP8sTjz+UZc8w5pojEWeDO 1riHZ1DM87GY17vJMmg4J3uYS 9 V6QwMSQemnipwoqfeUX5NOOmQ PWgxR54Qs5hbVrjRh9iBTPhNQ K4VGRssPEgP1QvdW2uFgPwVKS w LOOgY7TkxNZoMZdcE453ANyzQ pA6AJQcxcRyL6BtPULqcWbpBw G3s1Z7Lw9VIL53OF74RD78oHR g m4T5xHC8Q9TyMWKucxzdprfzf ZQ6YWEvPOIdlP76Tj5kaLxmXm 5uPICuMML1VRQdwDKtF4TenQ6 y JsAjCOXyJMHnK0UtsLCeNUcgB 829RQjvNjD2OVHcjfCzC1UdBO PlxLvwLgE6p5P4Wn6IZz71FI6 0 NP65xXMhx8X5dVX6H7ZmXDLrd hxeobsuqJR4PVCiKXAhpV96Mm 9udNroMo8cQCQcWSQ0XQYeaYZ z B3EwiU6vKlUtPZCdYDZcP7Xkr QScQZrjV279VMeaSoI0OGHwyh EiT8IxDNBohIpoLqY3g3V7Mc8 Q AItmuee4J2DjOgayiAC+PC90Y YNkXB90pQRwiONso6mfmRa0Oy JuHFHzLNN4gZdaZComu2KwIYU t Y29s (more content not included)... Normal [facility] Coding Summary.on 02-07-2022 Coding Summary. CD:[id number]:[id number] Gh0bW w+PGhlYWQ+TE0VSYJzK08xxTL ykD5MN8uPKH4TIXVGFMRQDQ4S RF2dpEE1ODydH5DjomEj BffqdHPhUV46APw2XIS9kBusS HsfwQ8ssXYqV8t2VwDfFH89iZ 95LOfdHKMxAjN4DgNnlyvpvYV y T1mhYtOhyIQdAup+PHRhYmxlI HdpZHRoPScxMDAlJyBzdHlsZT 6eVr8qALBwHIPxlZtnaHOjUdS j a8qpNQOkJSuhYY0gqAppB6Jmz RY6OBVgy4q4Hp40dEE+PHRkIH J7sQwfQBbvl838CxLjx3wfLEJ 3 uPFuRSdpQAL0F10qt2G2PLEyO JHgVNI5jQT7uQ2yfMwribdiH9 LmiNXcOkG6YDY1uYQglR6psCd n bgtmwY9dLdt+S16EVX0OTIHSL H9MPip0D1PrPquclCN+PC90YW CeMT80hQHnlJIrt8hqgDc8AfE w RIRcQOH6zBnqHVhuh8NzILYdL 22vbJWyy8A8WFLwuXbtmZAvZu DqqSU3xL3uPRwxyqixo0bhodp n Cfcja9nphm95rT84I37zHGvmB VOyGHC0RSPvPIYooAjcvg7xeT 9wIi8+BMjrl7qpx1hxtWt7YmM w HJTzibWiqZcmQOL4c7QxQf42U 1HheFqmg7LcHma8ft21iEVii9 E9lRL5EIqtTBZtbE4iPKrfHxS 6 TYIeAeDfaP96mJSoCFspIm4zx ZijrOijVQ9bSULipialLWUygJ 5sXXXhyPIkcSleQV3jAIVhbco m l462UcWzXVT5RGJsnDTsP3Vov A0tCxOjMWHtRPNjO6KzsMGpCJ msM875TTzbZjR2OLEaxqEvC0W s REIajVwuJoN1i2Q4Ll4Bg0Isc qwgNJN4VRteOVQdLfOvAhCsBb E8S7JlKqg7QVBveZroLX1xU2V h ZFUbsklvyeqrcIY6QMHbMGZtl N39xZRnTIwoJr1fc4K0i705ON TtAKNawG38Ve9xmGetSVZasAR U kW9upiazx5nihtupSdAbJYAbC Ip0JJm4NUBdwSsvFuQsJJC7Ne Q9ICX5vCQzfU9zhSdvueznjB3 w Oyc+E29rjG4sVCD7FYA3jsfrK AYehlKrRC60KY18X7LaDdisgH FibGU+IPIvaiUjnYhaDK9tDgU j b9dxk5KpOPdmT5LvWZDzUBzvO am4TUUmXGW4sPD2qS2fSTNdEH njp1I6dAL4C2FogkZzzg6vb1u s ORPsKVrzW72tcFImk4C6IGQol YO8OQHlmPmdYcVltM90Vpx+PG LqtMjtr1FtKvluc2guy4xzaTg 9 LeXaHMAsjwVezUtcJOV2d2IoP p44O54aUVkiGDWsZLAiYAWiDF JauGcmqe0yrJ4qNp8+PGNvbCB 3 xYJ4iX5kOAIdCcU3QWvcD541J kPkiFCyGjkbf7kyx4ptnAk9Kf ZeLTLlbhRzfLhyBSH9g2FfHi1 8 G56rYHhaVAMhUOXnYKFfLAKnc Shnfc2kbI3fIn8+VK3kr4vwra 88nH27rWM+WCDkMCU7hPsePAb w BGMtyC1yFJttKnO8FYKbMkJkn H68rRLhEVnaTg2laQruxSkaQD 0sUDJvrdrpf431FuHed9hoUKB w cLAjODipNMA7H14um3I0GLXbN NApUWV0aMH5tY9ylFrcnshfdQ WsdHibxgCpkIvlIIieTDolX66 6 IHRvcDsnPlBhdGllbnQgTmFtZ Or0H7FfFtc2EWOjxNfsTK5daM HpWMdyOt7uhEvzjXfoTP1wDMF p oijpc384IiMbz7ulFYXnsXNqM WwoSQL4L45yq5D6XBWxSKHrBW E7ePI4aG5iuOdkvtensSPbwBz g gyJyxCedBMpaIHtjP013NIJof OzzYtXvmaYoMWIcnEF3VS87MU 44hICre3R9wHH2U9SeKKYaeqe t yeqybQL2YUGmWTRuzH01Az7ni KcjBq0lOZNiKRP9ZKPibEWlU7 KesV1uAtNvFQLiBAGaB1TybKX t CAvuT099RUuwYlF4MKQflfGfI 6YqJOWhiFzbTdK8j3O8Cd5EP8 S3BC76VQ66oVPur9F5zRK3A1H h ZZFlvdgbiemebYU0LPVqAQCrg B17Ug3yoIxtOz5nVJCmUPE8BW CxeKOqB4DkqC6mJsWiHTXjTRZ w D7JvjTSdPZvgR012WMjfOjA2R XRfhuDwY4FvLFOajKnpJuJ0k3 H7Fy1SOTe9LI36AC69jMXri9A 5 wUR0W6SkAXZqsmrqfkjhjOH1Z YDsHWNftB33Zf8seKdlTq8aLS XoRQG2OGGnjKEvY2QweX0yTtD j SUUfBEDlF7LfeWTmFCzdY344Y CeeUpE9PTPzuhZyN7UsXGKmmQ jtBmX9l9D9Ju7UILUoMH19AYT 5 sCR5MM52GJ39L4CcLgkglLNni +PHRhYmxlIHdpZHRoPScxMD ZeMnSxoQglOP9rRp9kGBUtNXK v xXmmnOUoAuMnh8caASNuRUnlS G0yeOhjK7UtrOE5BYYde7r2Zw 50B87cE0PnuGE+BKBdqOF7cEU 0 iV3uRsXfBbQ7ZVvmX346VaLmt UYjGhinp4fxi3anwHx6BbW6PN ZabfWcjKcvQBF2n8NmPc53G52 s IHdpZHRoPSIxNSUiIHZhbGlnb m4hsI2mDj3+STKlsXM2cRU2fS 0pTzXrTdN0TQntF047VsHjsIK v Yybql7bko1bqlNh0BdVaIAHpv iJzmUaqLYS3j1WmFl47O0KukL ekd3DuBvo8de35jMIro0X7gXN 9 J5TvATYajcuhwUWkuPxnDR2nW UDcbsgjBZXkrV6wQXJsK5w8Gb IiRvY2YJhpW1RfkhR2ZHAjrGK g QGglRBD4O34dg5D3INJuELDbC UV3bXX1uT7rsKksqjctoPDjvJ nnsxFeeXweERkxKIerK101EJO v vFogWPHroP3aFEIosLRlgCbpF S1wBNIbhijiEoJER9rGUSNiLN xPVUVMTEEgTDwvdGQ+PHRkIHN 0 wIysYSwhRLCglG4gXUWwB5w9D oRdDeR3GOqbR6YgKPAcebymYs 29oO2yHfGqGlO0GSkwF5IcygS 6 SZPlnUTyXBgfUEM9J76cd5F6L QJyTLJuNDL0rYL2aB6xsDvrzo ogbGVmdDsgdmVydGljYWwtYWx p Q309XNDidGixCmTkNnQ1QnU4R aO0I5HyFuk6JKPljRgiBQ1rnH KhUIkkKt9twSovsRlkPH4fZVI p hoqrPQIbiZ1aUREsbUOgcKalT A0hTFOpsvwzd234VmMgKBV3OC PmpMJiM9AtsM4qWzIfNSXfOJD w O3OytZDqIRitA511VDraKqX4M NDgbeFqD2ZaUWNzaTsqKwG7k9 I8Bw01NHVKOTSeimvfvUB+PHR k MKV0eVxzULtlNRUcdK4uOGKmB 8z5RiNkMlJ6QZdgK5IwWTTwmg snYy92tS5cKyXgEzZ6OUjkH3U v abF9MSTegEUeRWnrMLN2Y60bg 2V6UWLxTMAnNOX5dFH3vM0kqF lnbjogbGVmdDsgdmVydGljYWw t IShjS459LRZhnHlqJvFafUKuJ TwvdGQ+JPQfFOZ1uInvQJwtGA BmjH4yVTVtA5z5DcOmUzE1JBa u J1AoWPCfcjciDw91bZ8qKqNqE hP0NMtyF5XyxfG9WNZskIIzAT gdRTI2K86pp7C1LGOgRFAoBWU 7 iWJ9cY4ydRxtgpjdyEOppSixe kXjpMlnVRunNBowM398QJTonH xvUv08dJZpbXnqdxQ7B9LhWdt v dHI+BW53RVRsOZ41cMFqcLWsa 7kxgNm8PtTfNUVeRGX9lEhcWD qop1HgUZEeR01ytWIjn3C6EXT v yZcxgORwYuGtwUZ2fF7zTGkws iumw7cojfunVndip6qmiw95iZ 61X31gPFrtWFXuANSuXWYrWRW h dUudbl9djM6bDr3+XGCzjQR4f DN0wG5aDpCeIxA3HBiuG034Hh NmrSRtVebmp5xps8smaXv8MxI w MNZmxkWvkXeqMCC7w6WzEs98T 29sIHdpZHRoPSIyMCUiIHZhbG ejst8hfZ7nZj8+FS0vs0bgtp9 1 jV42sHE+RFXvZCW3mNviQPksZ TOwaF9sHWzbUvC8JSToCqBieH 88yNCiTObkPe5ezRmvbZsoHC3 w BBVrslqdj805RlQll7muNVMys PLfLEbtTYW1L49ws9M6FIDqVS EjUMM1aUT1fF4tgJniashmgDS m gWznkfRevXfxNCneFHfkV963M QOgcHudUhMabTKmF1nykhPLBA 1lOjwvdGQ+OPWdRIT7aVmqGVv w XMNuuC1pMJOzH4k9RiYcFlW4J EaaW3JusxG4XLGweJPrKZShjL DQtF8jdiqnv4hxzeqeDoFyVJK w WGy7NPl4JSNvsYwqKaPlIQW5W dJ5MVJ7uCKnpV7obJewqtjmcX 9wOyc+RklOOjwvdGQ+PHRkIHN 0 mMnqYMvkFAPwaV7wYDRmN4m3E dRrSdS8LCfaF5BhakM2FBSypA MwFLYpuSNLiM6mkcmpk1hduwr g BgZnSBMsGSk0SVj3ZKRzkCrgR lDdGZL2WmS5NRP1aTCkvS9hcK raiotkrO6hEsl+TVJOOjwvdGQ + FXLoIDN6pCeoTRmjUTNzoM2fC MBoC1s9FwDgCsI4TBuhH3Cwdv W2WGMlsZWpOWJcqPCHaF7czyk j m9vyvdcjBzOvPGZwUFo4VSc7N CLfmDjgXsDcPNO4TkD4WMX1tH UwqM1lrRqynsdyoQ4uWir+UGF 5 SSK3OZ19RU92E1MzZzvqiNNdy +PHRhYmxlIHdpZHRoPScxMD JmKuElxTswLK5hGt3fJFWeQQV v bGxh (more content not included)... Normal [facility] Physician Orderon 02-07-2022 Physician Order [id number]:1 27 Normal [facility] BMPon 02-05-2022 Anion gap [Moles/Vol] 18 mmol/L High 6-16 [facility] Comment on above: Performed By: #### 2 [id number], [id number] #### [facility] [address] [place] [address] Calcium [Mass/Vol] 9.6 mg/dL Normal 8.9-11.1 [facility] Comment on above: Performed By: #### 2 [id number], [id number] #### [facility] [address] [place] [address] Chloride [Moles/Vol] 101 mmol/L Normal 101-111 [facility] Comment on above: Performed By: #### 2 [id number], [id number] #### [facility] [address] [place] [address] CO2 [Moles/Vol] 23 mmol/L Normal 21-31 [facility] Comment on above: Performed By: #### 2 [id number], [id number] #### [facility] [address] [place] [address] Creatinine [Mass/Vol] 1.0 mg/dL Normal 0.5-1.3 [facility] Comment on above: Performed By: #### 2 [id number], [id number] #### [facility] [address] [place] [address] Glucose [Mass/Vol] 154 mg/dL Normal 55-199 [facility] Comment on above: Result Comment: If t his glucose result represents a fasting glucose, interpretation should refer to the following reference range: 55-99 mg/dL Performed By: #### 2 [id number], [id number] #### [facility] [address] [place] [address] Potassium [Moles/Vol] 3.9 mmol/L Normal 3.5-5.3 [facility] Comment on above: Performed By: #### 2 [id number], [id number] #### [facility] [address] [place] [address] Sodium [Moles/Vol] 138 mmol/L Normal 135-145 [facility] Comment on above: Performed By: #### 2 [id number], [id number] #### [facility] [address] [place] [address] Urea nitrogen [Mass/Vol] 19 mg/dL Normal 5-21 [facility] Comment on above: Performed By: #### 2 [id number], [id number] #### [facility] [address] [place] [address] Urea nitrogen/Creatinine [Mass ratio] 19 No Units Normal 10-20 [facility] Comment on above: Performed By: #### 2 [id number], [id number] #### [facility] [address] [place] [address] CHEMISTRYOrdered By: SYSTEM SYSTEM on 02-05-2022 Anion gap [Moles/Vol] 18 mmol/L High 6 - 16 mEq/L [facility] Calcium [Mass/Vol] 9.6 mg/dL Normal 8.9 - 11. 1 mg/dL [facility] Chloride [Moles/Vol] 101 mmol/L Normal 101 - 1 11 mmol/L [facility] CO2 [Moles/Vol] 23 mmol/L Normal 21 - 31 mmol/L [facility] Creatinine [Mass/Vol] 1.0 mg/dL Normal 0.5 - 1.3 mg/dL [facility] GFR/1.73 sq M.predicted among blacks MDRD (S/P/Bld) [Vol rate/Area] mL/min/1.73 m2 Normal >=59mL/min /1.73 m2 [facility] Chem S GFR/1.73 sq M.predicted among non-blacks MDRD (S/P/Bld) [Vol rate/Area] 59 mL/min/1.73 m2 Normal >=59mL/min /1.73 m2 [facility] Chem S Glucose [Mass/Vol] 154 mg/dL Normal 55 - 199 mg/dL [facility] Potassium [Moles/Vol] 3.9 mmol/L Normal 3.5 - 5.3 mmol/L [facility] Sodium [Moles/Vol] 138 mmol/L Normal 135 - 145 mmol/L [facility] Urea nitrogen [Mass/Vol] 19 mg/dL Normal 5 - 21 mg/dL [facility] Urea nitrogen/Creatinine [Mass ratio] 19 mg/mg Normal 10 - 20 [facility]isol Consent for Treatmenton 01-10 Consent for Treatment [id number]#[id number]:12 7 Normal [facility] Physician Orderon 02-05-2022 Physician Order [id number]#[id number]:12 7 Normal [facility] eGFRon 02-05-2022 GFR/1.73 sq M.predicted among blacks MDRD (S/P/Bld) [Vol rate/Area] mL/min/{1.73_m2} Normal >=59 [facility] Comment on above: Order Comment: Order added by Discern Expert. Result Comment: eGFR is race adjusted. AA=. Performed By: #### 2 [id number], [id number] #### [facility] [address] [place] [address] GFR/1.73 sq M.predicted among non-blacks MDRD (S/P/Bld) [Vol rate/Area] 59 mL/min/1.73 m2 Normal >=59 [facility] Comment on above: Order Comment: Order added by Discern Expert. Result Comment: Brim Curler shayne kidney disease could be indicated at eGFR's of less than 60 mL/min/1.73m2. Kidney failure is indicated at less than 15 mL/min/1.73m2. Performed By: #### 2 [id number], [id number] #### [facility] [address] [place] [address] Coding Summary.on 01-15-2022 Coding Summary. CD:[id number] Gh0bW w+PGhlYWQ+ZS4ERTZgK46zdJK xyT7JI4rOIV8ZSPLZMATSMY3W CS7boCN5CSluK7JucaJg SntzqRVpZQ96RVq9ODM9cAvmO LlcwG0nyZNhP1l7JtZoQD49yX 31MQnqRRDpCxT0FgFsmtxfbYS y L6poQiPklDSgQai+PHRhYmxlI HdpZHRoPScxMDAlJyBzdHlsZT 7oRt2eKKFrWUWdaZtadHOqVsE j s8jmTTTfGWgyZP3nfBegO9Fid QG5SXNgy7b0Kf67gVE+PHRkIH C8kOnhSZwjo466YxLyb5ynMWM 3 sBHtGZyzQUH0Y55hr1H7AYCvX LPxPVK2iUG3zA6pjBejoknyI2 OhoCVnDvF9FSN6tARbcG7nwRk n pjrteD2mJvd+W19UTJ2HWCPLQ T4WYkv3T9QfZsztwNZ+PC90YW ZlQI53tWArwJZjl6ipzRi1ZjZ w PZQnFYX9zEniEIcfm9PtAOReT 59bdAQus6A8ANImaShbzZUrGg DqaDC5cO4rTZiwqbsgy5laeas n Gzjbi2bbnt71xJ69V51eKIepN IDjWOS5CXJdGIRtjCjnix2bmN 9wIi8+EPnts4cpp9uppVb5HuM w ELNswbJpmGnpAGX1v6YgNm01A 3VjgQymn6KzExg9lu32jRXpm5 Q5tMK6BMofFSLlfQ5rQDvuMbH 6 JHChVrFhnV65oUPzHDiyYc7cj CmqnBedSP4rDUXgtienNHQqoI 6rNGTctTNjuJjkVW9uDZLnxug m r026XfBmEPV4XWAwqQQcZ3Jxs S3uAlAmKHKhTNStM9NoxHMyUM syK473TZrrVeG2VBNkauFuD5L s ZCUyiEaxXqG4o8X2Ce6Vl8Jtj eedYVZ8WWmdJVHuWjB7WmLuTs H8R0UiYyx7LJUxzUtaFH2hV2J h AESszybmbcrfcVM4SXHbSIBmy Y46wLTqDSbaWy7af0T8k032KM IuXTLsaR59Dz0xhZliBAEovKJ U jW5olppea1tdevzeTzWoPEBeE Jn0AIo2BLItrDmgKfCmISM8Zl M1NKT6lRLmdB3yeGccxmbrxV3 w Oyc+R92erY7jZTO5PTP0skyeB IMgukSyJR78DH52E1GlTslvzQ FibGU+NVWqqyMvdBddRU8cKaR j x0nhh2DoEDasN7WtAORcWHuiK mu1CRKeWIT7iEC4jJ3rHKLjZR vhw3Y3gBO3W8LhrtGioo5oy7q s ORHsPWyzM67asJBxa4I4JEEpf XG2TIIltSxnLoCtpM60Uyt+PG EcgRwnp5MkTspqn5aeb9hhcPd 9 UpNxVIHjczMqyPriRDO0s0IvO a33P39lXHjfBYGhKBKyKEOmLN OvwRshxb2noV1qNi6+PGNvbCB 3 oHI0zH8fMVJzLlX4JYpcB322A yDrtFTdAzaap1kyd6ksiDk1Rg IoTJQpdoTraAmtNBX3t3UbHs7 8 L39zHTtiIHFhBVBqQHSlQCGku Hzuhp8tuO2vOr9+EN5pu7owkq 06cI01pZJ+XCTjQSX8mVfuBRn w TBCugY9pROdvSmZ2IRPzPgLie R42wCGtJNbiOy5etWhgwImyFF 0vWSHaqgeqb821RuVbz9biNCU w pGCvMTqwMII1O13xn7Q5SRYwW RPuMRD0iUR9iF2gyQpfqzfroG CxlXbcwlOquEvmKSsgLFygI26 6 IHRvcDsnPlBhdGllbnQgTmFtZ Ug1C5JdUzz4FSPxqMhmRO0akT LfNPloBo5saWuakOoiYE2tUFA p ewprt933IlTxb1emUMSakARnA CyiAWD2D85cx0M6UNXaXERoIO E8eLQ9iE3bxRpvvmjkrUNhrCc g tjOjeGigSUyaKFldP926LOCxi BqtNtIjppRqQTIpfYE7TL34EU 19jWIkd9P6xQZ9Z1TxOTWjuzf t fwzgbNJ7LLLsNJBdrB34Th4ek UtdXw4tRXBzSXH4QFBcjGGmT6 EbwX4bWyZsZNEgAJHiS6CrhEV t DAdzZ341PNciRcJ8RHWquwEcO 1CsLSBydDnyDuB6w5R4Vl8IV3 R3HJ81FO22qHMrk5H4wYA2H4H h PYEjawaslmwutYR4AXJyZFAvz D36Lw4gwGejFz2yDNVeVTT5EG FlrFWgO6IzpK7pDfLaSGXzOXH w C6KmoBCwIKrxI070EXirNiI3L YYlahTpV4AvLONfgQliGeH8m3 E5Xx5FTOm8FI21TC55zOVmi8Z 5 qXO8Y0QrNLFohxtnooyamHT1X QFeJCBolR20Zx6bvXfhZi0qAZ FfYXF5RHNvpIYdG7LprT3tCeY j FZVzBAZiT2YpgHFhRUzuC475W OfwTzV0QAZtxqNfJ7JtQCBolP vePuP1y1L0Er3BHCMkUK13XEJ 5 fAV0GD43FZ66I5IjPxjjkKWtn +PHRhYmxlIHdpZHRoPScxMD VxRhAqaRrbIE5bVb2wWGVhPCA v oLcvwHUbAuDov5lpFOMfAOxiA V5fvQxfR1NesTL5BFNnt2h0Nj 20F78qL4TjsBK+KXUcxBX3rOQ 0 zT3kMnBpLiW6LIbpE663XzCpx JJeCzdll1zsw0momEx4FfM1JE HjjzWwzFdaKWH9d7RgLf44T94 s IHdpZHRoPSIxNSUiIHZhbGlnb g1ouO6xJh0+IXJmeME8cUL6jK 8nRfKgHtA6ADxwG686ToQdwQS v Dfrcf7uho6ujiJr0CiGaECAzm rLzxJzrURU0x8YgKp78E1TikU qtf7QeLvv0hk19jVPhv5A3dZS 9 U0TkHLEvpjruwNBqxUidJD4fS VJxwjlxIIIjpG1nBSRpM5a7Nh VkFoU6TFuwW9DadwN9QKLknFX g SKvvDLI3P82nf1V7IFEpMOUkJ KL0yDO5pT9stYhkyogplWYpvD dinyIjtUfzYCaeHNuaZ586NQP v wNelLKZagN5lQMFpyTLrgEogI R9jQZAviduxHkFSE6wGQCOpLQ xPVUVMTEEgTDwvdGQ+PHRkIHN 0 pNaiIKpyVHNdqF4mGRXsR3g9K pXkTvT6TAgdK2OiVVTdruyjGy 30kT3aAsBgOjC7SWbxI6XukiN 6 SXZfdFVjYNckUNO5U52ng6Q5H MNnSLGyCVK6zYM7dB4esPjdep ogbGVmdDsgdmVydGljYWwtYWx p E780CFGqyYnwWlOmNgM0QjG0B zK3S3UnXfc5JIVcoKhxNX5pzS SvKWlgFh8xkCcmdAtgPN3vSJC p ryjqQJIxsE9qCVNllKSguEttA U6wCYMqnohwt955ViOgFCJ6PI WgtNEaB8SpcF3uAyLgEUPzPQU w L1EtcXXwTRgnD445MSnaEvK7H GXcpnQuI7JfBUJlnRbcPxG2q8 U1Rt69MCINCJPsqrlfiMB+PHR k SSM4jJncVEhuGLBzqL5mJFOiZ 4e4HsUbImY6MGplY2HeQFCadc dkNa39yU2lXvJrYlD6KVevX5P v noW4TURylZVrJYixIMZ1B26tw 0Q0CNEbYWGmYLH0bGH8cZ0grA lnbjogbGVmdDsgdmVydGljYWw t BWdeK784RDOhhDdbJwPodJKmZ TwvdGQ+KGIfYQZ0eZieFExsAP JccB1mZMWgV8g4DoXgLvJ2ZXx u Q3AaINVezdxiMc46rY9ySwLqP eK9ELhzF2OtegE2WLRrpZLkJS ziSKK9K26bm9R2QKUnVUOkZAX 7 uOY8kR2lqXovngbopOIceGogy eNbjEeuLStuSCtpR074LZSudC yfEn58hAIkcGqmbpM0I2OqBma v dHI+FO72DAXnDO54aNNxhVLfn 3wzeRr6NrAgPYPzHFQ3oAumNQ tgx1VqWCPdO15eyUXlp8L3ZVN v pIqieHIjUjUskBD4fK9qZRdow gkus6ykjcqoOzxle0eemg03zE 03Z80gAPqyMRFnZDEnZVFqJNR h oQimoq3mhA3kQp0+TLSygDO1t UH7mV8kTlMiRlP0KDejC765No SygKEjMiugt6ltf1pniCm0RsW w DHPgszIufUfuLUR0w5ImYl09T 29sIHdpZHRoPSIyMCUiIHZhbG qfud0riW7oNn5+IJ2fu6jrfb9 1 cV61aJG+MRVuTVR4aNmwOOjxS OJqeS4iDMuoOiX2ZPMjSrMpcQ 55vOHsDTflNs0reTzrhTriHI2 w RETlritbj089EhPpw4cxXGTmi IFzIAymJNJ7R33df5F0VRIbLW RfTTT9mYY7wO8zwUhkurxgfFZ m aZilvgPqzFokWRgsCAyuC096J SGhbPgbTxUeuOXhM4vgdnQYIX 1lOjwvdGQ+YZZeILR6eDohPIc w IDCneK7bWZYuM2k2BkJlAnO9I KspM4FvnwV0TOTnjGXcNJHckS AWzU3nganwk3rbmndxPvDaTXA w EIa1DNt3WEVafNlrNbRpENO2T xS5RRJ7eFXtuK6oeNqswnblkU 9wOyc+RklOOjwvdGQ+PHRkIHN 0 wRqhLDtwSNXnqM0aIOWgT2b4Q nFfGkT2IWikC5AgxoC7UUZetL UrFBNutYHUjQ7iqemkz8klxfd g IfCvUCDkYFk3IYn4HOTqyRalW bLzLXA3BgY6YQR8cNSraH3ssN ldqaabhM5fHvx+TVJOOjwvdGQ + PIOkQEH7cDucXXjdRZQmnF9tY KBeH4w0YzHmTwY2HCfhK5Rzaz U2MUUpiSViSEEhwZVMzB3iwvk j n2sttzcsJxKgGHIjCCn5UMg9K BUdzYgxPlHxTKY4QuJ0AYQ3bD LkkU7jjIssfkojxA9hYtj+UGF 5 GBW1DW77DK78N4JxTedydLDaq +PHRhYmxlIHdpZHRoPScxMD YuDvCcjJsrMH2uGx3oDEPiXBY v bGxh (more content not included)... Normal [facility] Auto Diffon 01-08-2022 Basophils/100 WBC (Bld) 0.6 % Normal 0.0-2.0 [facility] Comment on above: Order Comment: Order Added by Discern Expert. Performed By: #### 2 [id number], [id number] #### [facility] [address] [place] [address] Basophils/Leukocytes Auto (Bld) [Pure # fraction] 0.1 E9/L Normal 0.0-0.2 [facility] Comment on above: Order Comment: Order Added by Discern Expert. Performed By: #### 2 [id number], [id number] #### [facility] [address] [place] [address] Eosinophils/100 WBC (Bld) 1.4 % Normal 0.0-8.0 [facility] Comment on above: Order Comment: Order Added by Discern Expert. Performed By: #### 2 [id number], [id number] #### [facility] [address] [place] [address] Eosinophils/Leukocytes Auto (Bld) [Pure # fraction] 0.2 E9/L Normal 0.0-0.5 [facility] Comment on above: Order Comment: Order Added by Discern Expert. Performed By: #### 2 [id number], [id number] #### [facility] [address] [place] [address] Lymphocytes/100 WBC (Bld) 35.6 % Normal 14.0-50.0 [facility] Comment on above: Order Comment: Order Added by Discern Expert. Performed By: #### 2 [id number], [id number] #### [facility] [address] [place] [address] Lymphocytes/Leukocytes Auto (Bld) [Pure # fraction] 4.2 E9/L High 1.0-4.0 [facility] Comment on above: Order Comment: Order Added by Discern Expert. Performed By: #### 2 [id number], [id number] #### [facility] [address] [place] [address] Monocytes/100 WBC (Bld) 3.0 % Low 4.0-14.0 [facility] Comment on above: Order Comment: Order Added by Discern Expert. Performed By: #### 2 [id number], [id number] #### [facility] [address] [place] [address] Monocytes/Leukocytes Auto (Bld) [Pure # fraction] 0.4 E9/L Normal 0.2-1.0 [facility] Comment on above: Order Comment: Order Added by Discern Expert. Performed By: #### 2 [id number], [id number] #### [facility] [address] [place] [address] Neutrophils/100 WBC (Bld) 59.4 % Normal 36.0-75.0 [facility] Comment on above: Order Comment: Order Added by Discern Expert. Performed By: #### 2 [id number], [id number] #### [facility] [address] [place] [address] Neutrophils/Leukocytes Auto (Bld) [Pure # fraction] 7.0 E9/L Normal 2.0-7.5 [facility] Comment on above: Order Comment: Order Added by Discern Expert. Performed By: #### 2 [id number], [id number] #### [facility] [address] [place] [address] BMPon 01-08-2022 Anion gap [Moles/Vol] 17 mmol/L High 6-16 [facility] Comment on above: Performed By: #### 2 [id number], [id number] #### [facility] [address] [place] [address] Calcium [Mass/Vol] 10.1 mg/dL Normal 8.9-11.1 [facility] Comment on above: Performed By: #### 2 [id number], [id number] #### [facility] [address] [place] [address] Chloride [Moles/Vol] 99 mmol/L Low 101-111 [facility] Comment on above: Performed By: #### 2 [id number], [id number] #### [facility] [address] [place] [address] CO2 [Moles/Vol] 22 mmol/L Normal 21- [facility] Comment on above: Performed By: #### 2 [id number], [id number] #### [facility] [address] [place] [address] Creatinine [Mass/Vol] 1.1 mg/dL Normal 0.5-1.3 [facility] Comment on above: Performed By: #### 2 [id number], [id number] #### [facility] [address] [place] [address] Glucose [Mass/Vol] 356 mg/dL High 55-199 [facility] Comment on above: Result Comment: If t his glucose result represents a fasting glucose, interpretation should refer to the following reference range: 55-99 mg/dL Performed By: #### 2 [id number], [id number] #### [facility] [address] [place] [address] Potassium [Moles/Vol] 4.2 mmol/L Normal 3.5-5.3 [facility] Comment on above: Performed By: #### 2 [id number], [id number] #### [facility] [address] [place] [address] Sodium [Moles/Vol] 134 mmol/L Low 135-145 [facility] Comment on above: Performed By: #### 2 [id number], [id number] #### [facility] [address] [place] [address] Urea nitrogen [Mass/Vol] 18 mg/dL Normal 5-21 [facility] Comment on above: Performed By: #### 2 [id number], [id number] #### [facility] [address] [place] [address] Urea nitrogen/Creatinine [Mass ratio] 16 No Units Normal 10-20 [facility] Comment on above: Performed By: #### 2 [id number], [id number] #### [facility] [address] [place] [address] CBC w/ Auto Diffon 2 Erythrocyte distribution width (RBC) [Ratio] 13.5 % Normal 10.9-14.2 [facility] Comment on above: Performed By: #### 2 [id number], [id number] #### [facility] [address] [place] [address] Hematocrit (Bld) [Volume fraction] 46.4 % High 34.0-46.0 [facility] Comment on above: Performed By: #### 2 [id number], [id number] #### [facility] [address] [place] [address] Hemoglobin (Bld) [Mass/Vol] 15.8 g/dL Normal 12.0-16.0 [facility] Comment on above: Performed By: #### 2 [id number], [id number] #### [facility] [address] [place] [address] MCH (RBC) [Entitic mass] 30.4 pg Normal 27.0-34.0 [facility] Comment on above: Performed By: #### 2 [id number], [id number] #### [facility] [address] [place] [address] MCHC (RBC) [Mass/Vol] 34.1 g/dL Normal 31.4-36.0 [facility] Comment on above: Performed By: #### 2 [id number], [id number] #### [facility] [address] [place] [address] MCV (RBC) [Entitic vol] 89.1 fL Normal 80.0-100.0 [facility] Comment on above: Performed By: #### 2 [id number], [id number] #### [facility] [address] [place] [address] Platelet mean volume (Bld) [Entitic vol] 9.8 fL Normal 6.4-10.8 [facility] Comment on above: Performed By: #### 2 [id number], [id number] #### [facility] [address] [place] [address] Platelets (Bld) [#/Vol] 252.0 E9/L Normal 150. 0-500. 0 [facility] Comment on above: Performed By: #### 2 [id number], [id number] #### [facility] [address] [place] [address] RBC (Bld) [#/Vol] 5.2 E12/L Normal 4.3-5.9 [facility] Comment on above: Performed By: #### 2 [id number], [id number] #### [facility] [address] [place] [address] WBC corrected for nucl RBC Auto (Bld) [#/Vol] 11.8 E9/L High 4.0-11.0 [facility] Comment on above: Performed By: #### 2 [id number], [id number] #### [facility] [address] [place] [address] CHEMISTRYOrdered By: SYSTEM SYSTEM on 01-08-2022 Anion gap [Moles/Vol] 17 mmol/L High 6 - 16 mEq/L [facility] Calcium [Mass/Vol] 10.1 mg/dL Normal 8.9 - 11. 1 mg/dL [facility] Chloride [Moles/Vol] 99 mmol/L Low 101 - 1 11 mmol/L [facility] CO2 [Moles/Vol] 22 mmol/L Normal 21 - 31 mmol/L [facility] Creatinine [Mass/Vol] 1.1 mg/dL Normal 0.5 - 1.3 mg/dL [facility] GFR/1.73 sq M.predicted among blacks MDRD (S/P/Bld) [Vol rate/Area] mL/min/1.73 m2 Normal >=59mL/min /1.73 m2 [facility] Chem S GFR/1.73 sq M.predicted among non-blacks MDRD (S/P/Bld) [Vol rate/Area] 53 mL/min/1.73 m2 Low >=59mL/min /1.73 m2 [facility] Chem S Glucose [Mass/Vol] 356 mg/dL High 55 - 199 mg/dL [facility] Potassium [Moles/Vol] 4.2 mmol/L Normal 3.5 - 5.3 mmol/L [facility] Sodium [Moles/Vol] 134 mmol/L Low 135 - 145 mmol/L [facility] Urea nitrogen [Mass/Vol] 18 mg/dL Normal 5 - 21 mg/dL [facility] Urea nitrogen/Creatinine [Mass ratio] 16 mg/mg Normal 10 - 20 [facility] Consent for Treatmenton 12-11 Consent for Treatment [id number]:12 7 Normal [facility] HEMATOLOGYOrdered By: SYSTEM SYSTEM on 01-08-2022 Basophils/100 WBC (Bld) 0.6 % Normal 0.0 - 2.0 % [facility] Basophils/Leukocytes Auto (Bld) [Pure # fraction] 0.1 E9/L Normal 0.0 - 0.2 E9/L [facility] Eosinophils/100 WBC (Bld) 1.4 % Normal 0.0 - 8.0 % [facility] Eosinophils/Leukocytes Auto (Bld) [Pure # fraction] 0.2 E9/L Normal 0.0 - 0.5 E9/L [facility] Lymphocytes/100 WBC (Bld) 35.6 % Normal 14.0 - 50.0 % [facility] Lymphocytes/Leukocytes Auto (Bld) [Pure # fraction] 4.2 E9/L High 1.0 - 4.0 E9/L [facility] Monocytes/100 WBC (Bld) 3.0 % Low 4.0 - 14.0 % [facility] Monocytes/Leukocytes Auto (Bld) [Pure # fraction] 0.4 E9/L Normal 0.2 - 1.0 E9/L [facility] Neutrophils/100 WBC (Bld) 59.4 % Normal 36.0 - 75.0 % [facility] Neutrophils/Leukocytes Auto (Bld) [Pure # fraction] 7.0 E9/L Normal 2.0 - 7.5 E9/L [facility] HEMATOLOGYOrdered By: Wild Beaver on 01-08-2022 Erythrocyte distribution width (RBC) [Ratio] 13.5 % Normal 10.9 - 14.2 % [facility] Hematocrit (Bld) [Volume fraction] 46.4 % High 34.0 - 46.0 % [facility] Hemoglobin (Bld) [Mass/Vol] 15.8 g/dL Normal 12.0 - 16.0 gm/dL [facility] MCH (RBC) [Entitic mass] 30.4 pg Normal 27. 0 - 34.0 pg [facility] MCHC (RBC) [Mass/Vol] 34.1 g/dL Normal 31.4 - 36.0 gm/dL [facility] MCV (RBC) [Entitic vol] 89.1 fL Normal 80.0 - 100.0 fL [facility] Platelet mean volume (Bld) [Entitic vol] 9.8 fL Normal 6.4 - 10.8 fL [facility] Platelets (Bld) [#/Vol] 252.0 E9/L Normal 150. 0 - 500.0 E9/L [facility] RBC (Bld) [#/Vol] 5.2 E12/L Normal 4.3 - 5.9 E12/L [facility] WBC corrected for nucl RBC Auto (Bld) [#/Vol] 11.8 E9/L High 4.0 - 11.0 E9/L [facility] Pharmacy Officeon 01-08-2022 Pharmacy Office [id number]#[id number]:1 27 Normal [facility] Physician Orderon 01-08-2022 Physician Order [id number]#1.00CD:12 7 Normal [facility] eGFRon 01-08-2022 GFR/1.73 sq M.predicted among blacks MDRD (S/P/Bld) [Vol rate/Area] mL/min/{1.73_m2} Normal >=59 [facility] Comment on above: Order Comment: Order added by Discern Expert. Result Comment: eGFR is race adjusted. AA=. Performed By: #### 2 [id number], [id number] #### [facility] [address] [place] [address] GFR/1.73 sq M.predicted among non-blacks MDRD (S/P/Bld) [Vol rate/Area] 53 mL/min/1.73 m2 Low >=59 [facility] Comment on above: Order Comment: Order added by Discern Expert. Result Comment: Brim Curler shayne kidney disease could be indicated at eGFR's of less than 60 mL/min/1.73m2. Kidney failure is indicated at less than 15 mL/min/1.73m2. Performed By: #### 2 [id number], [id number] #### [facility] [address] [place] [address] PTH INTACTon 09-13-2021 PTH, Intact 17 pg/mL Normal 15-65 [facility] Comment on above: Performed By: #### M G, RENAL, URIC #### [facility] [address] [address] [address] Tyree Botello HEMOGRAM AND PLATELon 2021 Hematocrit (Bld) [Volume fraction] 46.5 % Normal 36.0-48.0 [facility] Comment on above: Performed By: #### M G, RENAL, URIC #### [facility] [address] [place] [address] Dr. Tyree Botello Hemoglobin (Bld) [Mass/Vol] 15.7 g/dL Normal 12.0-16.0 [facility] Comment on above: Performed By: #### M G, RENAL, URIC #### [facility] [address] [place] [address] Dr. Tyree Botello MCH (RBC) [Entitic mass] 30.0 pg Normal 26.7-34.0 [facility] Comment on above: Performed By: #### M G, RENAL, URIC #### [facility] [address] [place] [address] Dr. Tyree Botello MCHC (RBC) [Mass/Vol] 33.8 g/dL Normal 29.9-35.[address] [facility] Comment on above: Performed By: #### M G, RENAL, URIC #### [facility] [address] [place] [address] Dr. Tyree Botello MCV (RBC) [Entitic vol] 88.9 fL Normal 81.0-99.0 T [facility] Comment on above: Performed By: #### M G, RENAL, URIC #### [facility] [address] [place] [address] Dr. Tyree Botello PLT 261 103/ul Normal 150-[address] [facility] Comment on above: Performed By: #### M G, RENAL, URIC #### [facility] [address] [place] [address] Dr. Tyree Botello RBC 5.23 106/ul Normal 4.20-5.[address] [facility] Comment on above: Performed By: #### M G, RENAL, URIC #### [facility] [address] [place] [address] Dr. Tyree Botello WBC 11.1 103/ul Critically high 4.0-11.0 [facility] Comment on above: Performed By: #### M G, RENAL, URIC #### [facility] [address] [place] [address] Dr. Tyree Botello MAGNESIUMon 09-12-2021 Magnesium [Mass/Vol] 1.3 mg/dL Critically low 1.8-2.4 [facility] Comment on above: Performed By: #### M G, RENAL, URIC #### [facility] [address] [place] [address] Dr. Tyree Botello RENAL FUNCTION PANELon 09-12 Albumin [Mass/Vol] 3.4 g/dL Normal 3.4-5.0 [facility] Comment on above: Performed By: #### M G, RENAL, URIC #### [facility] [address] [place] [address] Dr. Tyree Botello Calcium [Mass/Vol] 10.3 mg/dL Critically high 8.5-10.1 [facility] Comment on above: Performed By: #### M G, RENAL, URIC #### [facility] [address] [place] [address] Dr. Tyree Botello Chloride [Moles/Vol] 100 mmol/L Normal 98-[address] [facility] Comment on above: Performed By: #### M G, RENAL, URIC #### [facility] [address] [place] [address] Dr. Tyree Botello CO2 [Moles/Vol] 23.1 mmol/L Normal 21.0-32.[address] [facility] Comment on above: Performed By: #### M G, RENAL, URIC #### [facility] [address] [place] [address] Dr. Tyree Botello Creatinine [Mass/Vol] 1.11 mg/dL Critically high 0.55-1.02 [facility] Comment on above: Performed By: #### M G, RENAL, URIC #### [facility] [address] [place] [address] Dr. Tyree Botello EGFR-AF MALAGASY >60 Normal >=60 [facility] Comment on above: Performed By: #### M G, RENAL, URIC #### [facility] [address] [place] [address] Dr. Tyree Botello EGFR-NON AF MALAGASY 52 mL/min/1.73m2 Critically low >=60 [facility] Comment on above: Performed By: #### M G, RENAL, URIC #### [facility] [address] [place] [address] Dr. Tyree Botello Glucose [Mass/Vol] 239 mg/dL Critically high 74-106 T [facility] Comment on above: Performed By: #### M G, RENAL, URIC #### [facility] [address] [place] [address] Dr. Tyree Botello Phosphate [Mass/Vol] 2.6 mg/dL Normal 2.6-4.7 [facility] Comment on above: Performed By: #### M G, RENAL, URIC #### [facility] [address] [place] [address] Dr. Tyree Botello Potassium [Moles/Vol] 4.2 mmol/L Normal 3.5-5.1 [facility] Comment on above: Performed By: #### M G, RENAL, URIC #### [facility] [address] [place] [address] Dr. Tyree Botello Sodium [Moles/Vol] 137 mmol/L Normal 136-145 [facility] Comment on above: Performed By: #### M G, RENAL, URIC #### [facility] [address] [place] [address] Dr. Tyree Botello Urea nitrogen [Mass/Vol] 21.0 mg/dL Critically high 7.0-18 .0 [facility] Comment on above: Performed By: #### M G, RENAL, URIC #### [facility] [address] [place] [address] Dr. Tyree Botello UA RANDOM W/MICROSCOPICon BACTERIA MODERATE Abnormal NONE SEEN [facility] Comment on above: Performed By: #### M G, RENAL, URIC #### [facility] [address] [address] [address] Tyree Botello Bilirubin Ql (U) Negative Normal NEGATIVE [facility] Comment on above: Performed By: #### M G, RENAL, URIC #### [facility] [address] [address] [address] Tyree Botello CAST SEEN Abnormal NONE SEEN [facility] Comment on above: Performed By: #### M G, RENAL, URIC #### [facility] [address] [address] [address] Tyree Botello Clarity (U) CLEAR Normal CLEAR [facility] Comment on above: Performed By: #### M G, RENAL, URIC #### [facility] [address] [place] [address] Dr. Tyree Botello Color (U) YELLOW Normal YELLOW [facility] Comment on above: Performed By: #### M G, RENAL, URIC #### [facility] [address] [place] [address] Dr. Tyere Botello Crystals LM Nom (Urine sed) NONE SEEN Normal NONE SEEN [facility] Comment on above: Performed By: #### M G, RENAL, URIC #### [facility] [address] [address] [address] Tyree Botello Epithelial cells LM Ql (Urine sed) FEW Abnormal NONE SEEN /RARE [facility] Comment on above: Performed By: #### M G, RENAL, URIC #### [facility] [address] [address] [address] Tyree Botello Glucose Ql (U) >1000 Abnormal NEGATIVE [facility] Comment on above: Performed By: #### M G, RENAL, URIC #### [facility] [address] [address] [address] Tyree Botello Hemoglobin Ql (U) SMALL Abnormal NEGATIVE [facility] Comment on above: Performed By: #### M G, RENAL, URIC #### [facility] [address] [address] [address] Tyree Botello HYALINE CAST RARE Normal [facility] Comment on above: Performed By: #### M G, RENAL, URIC #### [facility] [address] [address] [address] Tyree Botello Ketones Ql (U) Negative Normal NEGATIVE [facility] Comment on above: Performed By: #### M G, RENAL, URIC #### [facility] [address] [address] [address] Tyree Botello LEUKOCYTES Negative Normal NEGATIVE [facility] Comment on above: Performed By: #### M G, RENAL, URIC #### [facility] [address] [address] [address] Tyree Botello MUCOUS NONE SEEN Normal NONE SEEN [facility] Comment on above: Performed By: #### M G, RENAL, URIC #### [facility] [address] [address] [address] Tyree Botello Nitrite Ql (U) Negative Normal NEGATIVE [facility] Comment on above: Performed By: #### M G, RENAL, URIC #### [facility] [address] [place] [address] Dr. Tyree Botello pH (U) 5.5 [pH] Normal 5-[address] [facility] Comment on above: Performed By: #### M G, RENAL, URIC #### [facility] [address] [address] [address] Tyree Botello RBC 2-5 Abnormal 0-2 [facility] Comment on above: Performed By: #### M G, RENAL, URIC #### [facility] [address] [place] [address] Dr. Tyree Botello SPEC GRAVITY >=1.030 Abnormal 1.005-<=1. [address] [facility] Comment on above: Performed By: #### M G, RENAL, URIC #### [facility] [address] [place] [address] Dr. Tyree Botello UA PROTEIN 100 mg/dl Abnormal NEGATIVE/ TRACE [facility] Comment on above: Performed By: #### M G, RENAL, URIC #### [facility] [address] [place] [address] Dr. Tyree Botello Urobilinogen Qn (U) 0.2 {Jennifer'U}/dL Normal 0.2 - 1. 0 [facility] Comment on above: Performed By: #### M G, RENAL, URIC #### [facility] [address] [address] [address] Tyree Botello WBC 5-10 Abnormal NONE SEEN [facility] Comment on above: Performed By: #### M G, RENAL, URIC #### [facility] [address] [address] [address] Tyree Botello URIC ACID SERUMon 09-12-2021 Urate [Mass/Vol] 6.5 mg/dL Critically high 2.6-6.0 [facility] Comment on above: Performed By: #### M G, RENAL, URIC #### [facility] [address] [address] [address] Tyree Botello URINE T PROTEIN CREAT RATIOo n 09-12-2021 Protein (U) [Mass/Vol] 177.8 mg/dL Critically high <=12.0 [facility] Comment on above: Performed By: #### M G, RENAL, URIC #### [facility] [address] [place] [address] Dr. Tyree Botello UR PROT CREAT RAT 1.06 Normal [facility] Comment on above: Performed By: #### M G, RENAL, URIC #### [facility] [address] [address] [address] Tyree Botello URINE CREAT 168.43 mg/dL Normal 20.00-300. 00 [facility] Comment on above: Performed By: #### M G, RENAL, URIC #### [facility] [address] [address] [address] Tyree Botello VITAMIN D 25 OHon 09-12-2021 VIT D 25-OH 45.5 ng/mL Normal [facility] Comment on above: Performed By: #### M G, RENAL, URIC #### [facility] [address] [place] [address] Dr. Tyree Botello VIT D RANGES SEE BELOW Normal [facility] Comment on above: Result Comment: <20 ng/mL Vit D deficient 20 - <30 ng/mL Vit D insufficient 30 - 100 ng/mL Vit D sufficient >100 ng/mL Potential Toxicity Performed By: #### M G, RENAL, URIC #### [facility] [address] [place] [address] Dr. Tyree Botello CBC AUTO DIFFon 08-30-2021 BASO # 0.1 103/ul Normal 0.0-0.1 [facility] Comment on above: Performed By: #### M G, RENAL, URIC #### [facility] [address] [place] [address] Dr. Tyree Botello Basophils/100 WBC (Bld) 0.5 % Normal 0.2-2.0 [facility] Comment on above: Performed By: #### M G, RENAL, URIC #### [facility] [address] [place] [address] Dr. Tyree Botello EO # 0.1 103/ul Normal 0.0-0.7 [facility] Comment on above: Performed By: #### M G, RENAL, URIC #### [facility] [address] [place] [address] Dr. Tyree Botello Eosinophils/100 WBC (Bld) 1.1 % Normal 0.9-7.0 [facility] Comment on above: Performed By: #### M G, RENAL, URIC #### [facility] [address] [place] [address] Dr. Tyree Botello Erythrocyte distribution width (RBC) [Ratio] 12.7 % Normal 11.0-15.0 [facility] Comment on above: Performed By: #### M G, RENAL, URIC #### [facility] [address] [place] [address] Dr. Tyree Botello Hematocrit (Bld) [Volume fraction] 44.6 % Normal 36.0-48.0 [facility] Comment on above: Performed By: #### M G, RENAL, URIC #### [facility] [address] [place] [address] Dr. Tyree Botello Hemoglobin (Bld) [Mass/Vol] 15.0 g/dL Normal 12.0-16.0 [facility] Comment on above: Performed By: #### M G, RENAL, URIC #### [facility] [address] [address] [address] Tyree Botello IG # 0.05 10e3/ul Critically high 0.00-0.03 [facility] Comment on above: Performed By: #### M G, RENAL, URIC #### [facility] [address] [address] [address] Tyree Botello IG % 0.4 % Normal 0.0-0.5 [facility] Comment on above: Performed By: #### M G, RENAL, URIC #### [facility] [address] [address] [address] Tyree Botello LYMPH # 3.6 103/ul Normal 1.2-3.8 [facility] Comment on above: Performed By: #### M G, RENAL, URIC #### [facility] [address] [place] [address] Dr. Tyree Botello Lymphocytes/100 WBC (Bld) 29.8 % Normal 20.5-60.0 [facility] Comment on above: Performed By: #### M G, RENAL, URIC #### [facility] [address] [address] [address] Tyree Botello MANUAL DIFF REQ NO Normal [facility] Comment on above: Performed By: #### M G, RENAL, URIC #### [facility] [address] [place] [address] Dr. Tyree Botello MCH (RBC) [Entitic mass] 29.9 pg Normal 26.7-34.0 [facility] Comment on above: Performed By: #### M G, RENAL, URIC #### [facility] [address] [address] [address] Tyree Botello MCHC (RBC) [Mass/Vol] 33.6 g/dL Normal 29.9-35.2 [facility] Comment on above: Performed By: #### M G, RENAL, URIC #### [facility] [address] [place] [address] Dr. Tyree Botello MCV (RBC) [Entitic vol] 88.8 fL Normal 81.0-99.0 [facility] Comment on above: Performed By: #### M G, RENAL, URIC #### [facility] [address] [address] [address] Tyree Botello MONO # 0.6 103/ul Normal 0.3-0.8 [facility] Comment on above: Performed By: #### M G, RENAL, URIC #### [facility] [address] [place] [address] Dr. Tyree Botello Monocytes/100 WBC (Bld) 5.2 % Normal 1.7-12.0 [facility] Comment on above: Performed By: #### M G, RENAL, URIC #### [facility] [address] [place] [address] Dr. Tyree Botello NEUT # 7.5 103/ul Critically high 1.4-6.5 [facility] Comment on above: Performed By: #### M G, RENAL, URIC #### [facility] [address] [place] [address] Dr. Tyree Botello Neutrophils/100 WBC (Bld) 63.0 % Normal 43.0-75.0 [facility] Comment on above: Performed By: #### M G, RENAL, URIC #### [facility] [address] [place] [address] Dr. Tyree Botello Platelet mean volume (Bld) [Entitic vol] 11.4 fL Normal 9.5-13.5 [facility] Comment on above: Performed By: #### M G, RENAL, URIC #### [facility] [address] [place] [address] Dr. Tyree Botello PLT 225 103/ul Normal 150-[address] [facility] Comment on above: Performed By: #### M G, RENAL, URIC #### [facility] [address] [place] [address] Dr. Tyree Botello RBC 5.02 106/ul Normal 4.20-5.40 [facility] Comment on above: Performed By: #### M G, RENAL, URIC #### [facility] [address] [place] [address] Dr. Tyree Botello WBC 12.0 103/ul Critically high 4.0-11.0 [facility] Comment on above: Performed By: #### M G, RENAL, URIC #### [facility] [address] [place], [place] [address] Dr. Tyree Botello DEPAKENE/VALPROICon 08-31-19 DEPAKENE 53.3 ug/ml Normal 50.0-100.0 [facility] Comment on above: Performed By: #### M G, RENAL, URIC #### [facility] [address] [address] [address] Tyree Botello LIPID PROFILEon 08-30-2021 CHOL-HDL RATIO NORM SEE BELOW Normal [facility] Comment on above: Result Comment: 3.3 - 4.4 LOW RISK 4.4 - 7.1 AVERAGE RISK 7.1 - 11.0 MODERATE RISK >11.0 HIGH RISK Performed By: #### M G, RENAL, URIC #### [facility] [address] [address] [address] Tyree Botello Cholesterol [Mass/Vol] 160 mg/dL Normal <=[address] [facility] Comment on above: Performed By: #### M G, RENAL, URIC #### [facility] [address] [address] [address] Tyree Botello Cholesterol in HDL [Mass/Vol] 43 mg/dL Normal 40-60 [facility] Comment on above: Performed By: #### M G, RENAL, URIC #### [facility] [address] [address] [address] Tyree Botello Cholesterol in LDL [Mass/Vol] 76.0 mg/dL Normal [facility] Comment on above: Performed By: #### M G, RENAL, URIC #### [facility] [address] [address] [address] Tyree Botello Cholesterol.total/Choles terol in HDL [Mass ratio] 3.7 {ratio} Normal [facility] Comment on above: Performed By: #### M G, RENAL, URIC #### [facility] [address] [address] [address] Tyree Botello HDL NORMAL > or = 60 mg/dl - LO W CARDIOVASCULAR RISK <40 mg/dl - HIGH CARDIOVASCULAR RISK Normal [facility] Comment on above: Performed By: #### M G, RENAL, URIC #### [facility] [address] [address] [address] Tyree Botello LDL CALC NORMAL SEE BELOW Normal [facility] Comment on above: Result Comment: <100 mg/dl OPTIMAL 100 - 129 mg/dl NEAR OR ABOVE OPTIMAL 130 - 159 mg/dl BORDERLINE HIGH 160 - 189 mg/dl HIGH >190 mg/dl VERY HIGH Performed By: #### M G, RENAL, URIC #### [facility] [address] [address] [address] Tyree Botello Triglyceride [Mass/Vol] 205 mg/dL Critically high <=150 [facility] Comment on above: Performed By: #### M G, RENAL, URIC #### [facility] [address] [address] [address] Tyree Botello VLDL CALC 41.0 mg/dL Normal [facility] Comment on above: Performed By: #### M G, RENAL, URIC #### [facility] [address] [address] [address] Tyree Botello LIVER PROFILEon 08-30-2021 Albumin [Mass/Vol] 3.0 g/dL Critically low 3.4-5.[address] [facility] Comment on above: Performed By: #### M G, RENAL, URIC #### [facility] [address] [address] [address] Tyree Botello Albumin/Globulin [Mass ratio] 0.8 {ratio} Normal [facility] Comment on above: Performed By: #### M G, RENAL, URIC #### [facility] [address] [address] [address] Tyree Botello ALP [Catalytic activity/Vol] 63 U/L Normal 46-[address] [facility] Comment on above: Performed By: #### M G, RENAL, URIC #### [facility] [address] [address] [address] Tyree Botello ALT [Catalytic activity/Vol] 49 U/L Normal 14-59 [facility] Comment on above: Performed By: #### M G, RENAL, URIC #### [facility] [address] [address] [address] Tyree Botello AST [Catalytic activity/Vol] 23 U/L Normal 15-37 [facility] Comment on above: Performed By: #### M G, RENAL, URIC #### [facility] [address] [place], [place] [address] Dr. Tyree Botello BILI, CONJUGATED 0.1 mg/dL Normal 0.0-0.2 [facility] Comment on above: Performed By: #### M G, RENAL, URIC #### [facility] [address] [address] [address] Tyree Botello Bilirubin [Mass/Vol] 0.4 mg/dL Normal 0.2-1.0 [facility] Comment on above: Performed By: #### M G, RENAL, URIC #### [facility] [address] [place] [address] Dr. Tyree Botello Globulin (S) [Mass/Vol] 3.7 g/dL Normal T [facility] Comment on above: Performed By: #### M G, RENAL, URIC #### [facility] [address] [place], [place] [address] Dr. Tyree Botello Protein [Mass/Vol] 6.7 g/dL Normal 6.4-8.2 [facility] Comment on above: Performed By: #### M G, RENAL, URIC #### [facility] [address] [address] [address] Tyree Botello Complete Blood Count with Au to Diffon 07-17-2021 BASOABS 97 cells/uL Normal 0-200 [facility] Comment on above: Order Comment: [facility] performed at: [facility] [email or web address] [facility], [address], [address] [facility], [place], [address], Orthotics Prosthetics Assistant: Senthil Ramsey MD [facility] Collection Date/Time: [id number] [facility] Results Received Date/Time: [id number] [facility] Reported Date/Time: FASTING: UNKNOWN Performed By: #### L IPD, CMP, TSH, CBCAD #### [facility] Default [address] [place] [address] Basophils/100 WBC (Bld) 0.9 % [facility] Comment on above: Order Comment: [facility] performed at: [employer] [facility], [address] [place] [address], [address] [place] [address], [address] [place] [address], Orthotics Prosthetics Assistant: Senthil Ramsey MD [facility] Date/Time: [facility] Results Received Date/Time: [facility] Reported Date/Time: FASTING: UNKNOWN Performed By: #### L IPD, CMP, TSH, CBCAD #### [facility] Default [address] [place] [address] EOSABS 97 cells/uL Normal 15-500 [facility] Specialist Comment on above: Order Comment: [facility] performed at: [employer] [facility], [address] [place] [address], [address] [place] [address], [address] [place] [address], Orthotics Prosthetics Assistant: Senthil Ramsey MD [facility] Date/Time: [facility] Results Received Date/Time: [facility] Reported Date/Time: FASTING: UNKNOWN Performed By: #### L IPD, CMP, TSH, CBCAD #### [facility] [address] [place] [address] Eosinophils/100 WBC (Bld) 0.9 % Normal [facility] Comment on above: Order Comment: [facility] performed at: [employer] [facility], [address] [place] [address], [address] [place] [address], [address] [place] [address], Orthotics Prosthetics Assistant: Senthil Ramsey MD [facility] Date/Time: [facility] Results Received Date/Time: [facility] Reported Date/Time: FASTING: UNKNOWN Performed By: #### L IPD, CMP, TSH, CBCAD #### [facility] [address] [place] [address] Erythrocyte distribution width (RBC) [Ratio] 13.6 % Normal 11.0-15.0 [facility] Specialist Comment on above: Order Comment: [facility] performed at: [employer] [facility], [address] [facility], [address] [place] [address], [address] [place] [address], Orthotics Prosthetics Assistant: Senthil Ramsey MD [facility] Date/Time: [facility] Results Received Date/Time: [facility] Reported Date/Time: FASTING: UNKNOWN Performed By: #### L IPD, CMP, TSH, CBCAD #### [facility] Default [address] [place] [address] Hematocrit (Bld) [Volume fraction] 48.3 % High 35.0-45.0 [facility] Senior Quality Assurance Specialist Comment on above: Order Comment: [facility] performed at: [employer] [employer] [facility], [address] [place] [address], [address] [place] [address], [address] [place] [address], Orthotics Prosthetics Assistant: Senthil Ramsey MD [facility] Date/Time: [facility] Results Received Date/Time: [facility] Reported Date/Time: FASTING: UNKNOWN Performed By: #### L IPD, CMP, TSH, CBCAD #### [facility] Default [address] [place] [address] Hemoglobin (Bld) [Mass/Vol] 16.7 g/dL High 11.7-15.5 [facility] Senior Quality Assurance Specialist Comment on above: Order Comment: [facility] performed at: [employer] [employer] [facility], [address] [place] [address], [address] [place] [address], [address] [place] [address], Orthotics Prosthetics Assistant: Senthil Ramsey MD [facility] Date/Time: [facility] Results Received Date/Time: [facility] Reported Date/Time: FASTING: UNKNOWN Performed By: #### L IPD, CMP, TSH, CBCAD #### [facility] Default [address] [place] [address] Lymphocytes (Bld) [#/Vol] 4.428 10*3/uL High 850-3900 [facility] Senior Quality Assurance Specialist Comment on above: Order Comment: [facility] performed at: [employer] [facility], [address] [place] [address], [address] [place] [address], [address] [place] [address], Orthotics Prosthetics Assistant: Senthil Ramsey MD [facility] Date/Time: [facility] Results Received Date/Time: [facility] Reported Date/Time: FASTING: UNKNOWN Performed By: #### L IPD, CMP, TSH, CBCAD #### [facility] Default [address] [place] [address] Lymphocytes/100 WBC (Bld) 41.0 % Normal [facility] Senior Quality Assurance Specialist Comment on above: Order Comment: [facility] performed at: [employer] [facility], [address] [place] [address], [address] [place] [address], [address] [place] [address], Orthotics Prosthetics Assistant: Senthil Ramsey MD [facility] Date/Time: [facility] Results Received Date/Time: [facility] Reported Date/Time: FASTING: UNKNOWN Performed By: #### L IPD, CMP, TSH, CBCAD #### [facility] [address] [place] [address] MCH (RBC) [Entitic mass] 31.0 pg Normal 27.0-33.0 [facility] Senior Quality Assurance Specialist Comment on above: Order Comment: [facility] performed at: [employer] [facility], [address] [place] [address], [address] [place] [address], [address] [place] [address], Orthotics Prosthetics Assistant: Senthil Ramsey MD [facility] Date/Time: [facility] Results Received Date/Time: [facility] Reported Date/Time: FASTING: UNKNOWN Performed By: #### L IPD, CMP, TSH, CBCAD #### [facility] Default [address] [place] [address] MCHC (RBC) [Mass/Vol] 34.6 g/dL Normal 32.0-36.0 [facility] Comment on above: Order Comment: [facility] performed at: [employer] [facility], [address] [place] [address], [address] [place] [address], [address] [place] [address], Orthotics Prosthetics Assistant: Senthil Ramsey MD [facility] Date/Time: [facility] Results Received Date/Time: [facility] Reported Date/Time: FASTING: UNKNOWN Performed By: #### L IPD, CMP, TSH, CBCAD #### [facility] [address] [place] [address] MCV (RBC) [Entitic vol] 89.6 fL Normal 80.0-100.0 [place] Comment on above: Order Comment: [facility] performed at: [employer] [employer] [facility], [address] [place] [address], [address] [place] [address], [address] [place] [address], Orthotics Prosthetics Assistant: Senthil Ramsey MD [facility] Date/Time: [facility] Results Received Date/Time: [facility] Reported Date/Time: FASTING: UNKNOWN Performed By: #### L IPD, CMP, TSH, CBCAD #### [facility] Default [address] [place] [address] MONOABS 605 cells/uL Normal 200-950 [facility] Comment on above: Order Comment: [facility] performed at: [employer] [facility], [address] [place] [address], [address] [place] [address], [address] [place] [address], Orthotics Prosthetics Assistant: Senthil Ramsey MD [facility] Date/Time: [facility] Results Received Date/Time: [facility] Reported Date/Time: FASTING: UNKNOWN Performed By: #### L IPD, CMP, TSH, CBCAD #### [facility] Default [address] [place] [address] Monocytes/100 WBC (Bld) 5.6 % Normal [place] Comment on above: Order Comment: [facility] performed at: [employer] [facility], [address] [place] [address], [address] [place] [address], [address] [place] [address], Orthotics Prosthetics Assistant: Senthil Ramsey MD [facility] Date/Time: [facility] Results Received Date/Time: [facility] Reported Date/Time: FASTING: UNKNOWN Performed By: #### L IPD, CMP, TSH, CBCAD #### [facility] Default [address] [place] [address] Neutrophils (Bld) [#/Vol] 5.573 10*3/uL Normal 8288-9067 [facility] Senior Quality Assurance Specialist Comment on above: Order Comment: [facility] performed at: [employer] [facility], [address] [place] [address], [address] [place] [address], [address] [place] [address], Orthotics Prosthetics Assistant: Senthil Ramsey MD [facility] Date/Time: [facility] Results Received Date/Time: [facility] Reported Date/Time: FASTING: UNKNOWN Performed By: #### L IPD, CMP, TSH, CBCAD #### [facility] Default [address] [place] [address] Neutrophils/100 WBC (Bld) 51.6 % Normal [facility] Senior Quality Assurance Specialist Comment on above: Order Comment: [facility] performed at: [employer] [facility], [address] [place] [address], [address] [place] [address], [address] [place] [address], Orthotics Prosthetics Assistant: Senthil Ramsey MD [facility] Date/Time: [facility] Results Received Date/Time: [facility] Reported Date/Time: FASTING: UNKNOWN Performed By: #### L IPD, CMP, TSH, CBCAD #### [facility] Default [address] [place] [address] Platelet mean volume (Bld) [Entitic vol] 11.4 fL Normal 7.5-12.5 [facility] Senior Quality Assurance Specialist Comment on above: Order Comment: [facility] performed at: [employer] [facility], [address] [place] [address], [address] [place] [address], [address] [place] [address], Orthotics Prosthetics Assistant: Senthil Ramsey MD [facility] Date/Time: [facility] Results Received Date/Time: [facility] Reported Date/Time: FASTING: UNKNOWN Performed By: #### L IPD, CMP, TSH, CBCAD #### [facility] Default [address] [place] [address] Platelets (Bld) [#/Vol] 239 10*3/uL Normal 140-400 [facility] Comment on above: Order Comment: [facility] performed at: [employer] [facility], [address] [place] [address], [address] [place] [address], [address] [place] [address], Orthotics Prosthetics Assistant: Senthil Ramsey MD [facility] Date/Time: [facility] Results Received Date/Time: [facility] Reported Date/Time: FASTING: UNKNOWN Performed By: #### L IPD, CMP, TSH, CBCAD #### [facility] Default [address] [place] [address] RBC (Bld) [#/Vol] 5.39 10*6/uL High 3.80-5.10 [facility] Comment on above: Order Comment: [facility] performed at: [employer] [facility], [address] [place] [address], [address] [place] [address], [address] [place] [address], Orthotics Prosthetics Assistant: Senthil Ramsey MD [facility] Date/Time: [facility] Results Received Date/Time: [facility] Reported Date/Time: FASTING: UNKNOWN Performed By: #### L IPD, CMP, TSH, CBCAD #### [facility] Default [address] [place] [address] WBC (Bld) [#/Vol] 10.8 10*3/uL Normal 3.8-10.8 [facility] Comment on above: Order Comment: [facility] performed at: [employer] [facility], [address] [place] [address], [address] [place] [address], [address] [place] [address], Orthotics Prosthetics Assistant: Senthil Ramsey MD [facility] Collection Date/Time: [facility] Results Received Date/Time: [facility] Reported Date/Time: FASTING: UNKNOWN Performed By: #### L IPD, CMP, TSH, CBCAD #### [facility] Default [address] [place] [address] Comprehensive Metabolic Pane christopher 07-17-2021 Albumin [Mass/Vol] 4.2 g/dL Normal 3.6-5.1 [facility] Comment on above: Order Comment: [facility] performed at: [employer] [facility], [address] [place] [address], [address] [place] [address], [address] [place] [address], Orthotics Prosthetics Assistant: Senthil Ramsey MD [facility] Date/Time: [facility] Results Received Date/Time: [facility] Reported Date/Time: FASTING: UNKNOWN Performed By: #### L IPD, CMP, TSH, CBCAD #### [facility] Default [address] [place] [address] Albumin/Globulin [Mass ratio] 1.4 {ratio} Normal 1.0-2.5 [facility] Specialist Comment on above: Order Comment: [facility] performed at: [employer] [facility], [address] [place] [address], [address] [place] [address], [address] [place] [address], Orthotics Prosthetics Assistant: Senthil Ramsey MD [facility] Date/Time: [facility] Results Received Date/Time: [facility] Reported Date/Time: FASTING: UNKNOWN Performed By: #### L IPD, CMP, TSH, CBCAD #### [facility] Default [address] [place] [address] ALP [Catalytic activity/Vol] 65 U/L Normal 31-125 [facility] Specialist Comment on above: Order Comment: [facility] performed at: [employer] [facility], [address] [place] [address], [address] [place] [address], [address] [place] [address], Orthotics Prosthetics Assistant: Senthil Ramsey MD [facility] Date/Time: [facility] Results Received Date/Time: [facility] Reported Date/Time: FASTING: UNKNOWN Performed By: #### L IPD, CMP, TSH, CBCAD #### [facility] Default [address] [place] [address] ALT [Catalytic activity/Vol] 30 U/L High 6-29 [facility] Senior Quality Assurance Specialist Comment on above: Order Comment: [facility] performed at: [employer] [facility], [address] [place] [address], [address] [place] [address], [address] [place] [address], Orthotics Prosthetics Assistant: Senthil Ramsey MD [facility] Date/Time: [facility] Results Received Date/Time: [facility] Reported Date/Time: FASTING: UNKNOWN Performed By: #### L IPD, CMP, TSH, CBCAD #### [facility] Default [address] [place] [address] Anion gap [Moles/Vol] 20 mmol/L Normal 12-20 [facility] Comment on above: Order Comment: [facility] performed at: [employer] [facility], [facility], [address] [place] [address], [address] [place] [address], Orthotics Prosthetics Assistant: Senthil Ramsey MD [facility] Date/Time: [facility] Results Received Date/Time: [facility] Reported Date/Time: FASTING: UNKNOWN Result Comment: Effe ctive 03/16/2019 reference range changed. Performed By: #### L IPD, CMP, TSH, CBCAD #### [facility] Default [address] [place] [address] AST [Catalytic activity/Vol] 15 U/L Normal 10-35 [facility] Specialist Comment on above: Order Comment: [facility] performed at: [employer] [facility], [address] [facility], [address] [place] [address], [address] [place] [address], Orthotics Prosthetics Assistant: Senthil Ramsey MD [facility] Date/Time: [facility] Results Received Date/Time: [facility] Reported Date/Time: FASTING: UNKNOWN Performed By: #### L IPD, CMP, TSH, CBCAD #### [facility] Default [address] [place] [address] Bilirubin [Mass/Vol] 0.4 mg/dL Normal 0.2-1.2 [facility] Specialist Comment on above: Order Comment: [facility] performed at: [employer] [facility], [address] [facility], [address] [place] [address], [id number], Orthotics Prosthetics Assistant: Senthil Ramsey MD [facility] Date/Time: [facility] Results Received Date/Time: [facility] Reported Date/Time: FASTING: UNKNOWN Performed By: #### L IPD, CMP, TSH, CBCAD #### [facility] Default [address] [place] [address] BUN/CREA 24 NOT APPLICABLE Normal 6-22 [facility] Senior Quality Assurance Specialist Comment on above: Order Comment: [facility] performed at: [employer] [facility], [address] [place] [address], [address] [place] [address], [address] [place] [address], Orthotics Prosthetics Assistant: Senthil Ramsey MD [facility] Date/Time: [facility] Results Received Date/Time: [facility] Reported Date/Time: FASTING: UNKNOWN Performed By: #### L IPD, CMP, TSH, CBCAD #### [facility] Default [address] [place] [address] Calcium [Mass/Vol] 10.2 mg/dL Normal 8.6-10.2 [facility] Senior Quality Assurance Specialist Comment on above: Order Comment: [facility] performed at: [employer] [facility], [address] [place] [address], [address] [place] [address], [address] [place] [address], Orthotics Prosthetics Assistant: Senthil Ramsey MD [facility] Date/Time: [facility] Results Received Date/Time: [facility] Reported Date/Time: FASTING: UNKNOWN Performed By: #### L IPD, CMP, TSH, CBCAD #### [facility] Default [address] [place] [address] Chloride [Moles/Vol] 103 mmol/L Normal 98-110 [facility] Senior Quality Assurance Specialist Comment on above: Order Comment: [facility] performed at: [employer] [facility], [address] [place] [address], [address] [place] [address], [address] [place] [address], Orthotics Prosthetics Assistant: Senthil Ramsey MD [facility] Date/Time: [facility] Results Received Date/Time: [facility] Reported Date/Time: FASTING: UNKNOWN Performed By: #### L IPD, CMP, TSH, CBCAD #### [facility] Default [address] [place] [address] CO2 [Moles/Vol] 22 mmol/L Normal 20-32 [facility] Comment on above: Order Comment: [facility] performed at: [employer] [facility], [address] [place] [address], [address] [place] [address], [address] [place] [address], Orthotics Prosthetics Assistant: Senthil Ramsey MD [facility] Collection Date/Time: [facility] Results Received Date/Time: [facility] Reported Date/Time: FASTING: UNKNOWN Performed By: #### L IPD, CMP, TSH, CBCAD #### [facility] Default [address] [place] [address] Creatinine [Mass/Vol] 0.75 mg/dL Normal 0.50-1.10 [facility] Specialist Comment on above: Order Comment: [facility] Testing performed at: [facility], [address] [place] [address], [address] [place] [address], [address] [place] [address], Orthotics Prosthetics Assistant: Senthil Ramsey MD [facility] Collection Date/Time: [facility] Results Received Date/Time: [facility] Reported Date/Time: FASTING: UNKNOWN Performed By: #### L IPD, CMP, TSH, CBCAD #### [facility] Default [address] [place] [address] eGFRAA ([facility]) 108 mL/min/1.73m2 Normal > OR = 60 [facility] Specialist Comment on above: Order Comment: [facility] Testing performed at: [facility], [address] [place] [address], [address] [place] [address], [address] [place] [address], Orthotics Prosthetics Assistant: Senthil Ramsey MD [facility] Collection Date/Time: [facility] Results Received Date/Time: [facility] Reported Date/Time: FASTING: UNKNOWN Performed By: #### L IPD, CMP, TSH, CBCAD #### [facility] Default [address] [place] [address] eGFRNAA ([facility]) 94 mL/min/1.73m2 Normal > OR = 60 [facility] Senior Quality Assurance Specialist Comment on above: Order Comment: [facility] Testing performed at: [facility] [employer] [facility], [address] [place] [address], [address] [place] [address], [address] [place] [address], Orthotics Prosthetics Assistant: Senthil Ramsey MD [facility] Collection Date/Time: [facility] Results Received Date/Time: [facility] Reported Date/Time: FASTING: UNKNOWN Performed By: #### L IPD, CMP, TSH, CBCAD #### [facility] Default [address] [place] [address] Globulin (S) [Mass/Vol] 3.0 g/dL Normal 1.9-3.7 [facility] Senior Quality Assurance Specialist Comment on above: Order Comment: [facility] Testing performed at: [facility], [address] [place] [address], [address] [place] [address], [address] [place] [address], Orthotics Prosthetics Assistant: Senthil Ramsey MD [facility] Collection Date/Time: [facility] Results Received Date/Time: [facility] Reported Date/Time: FASTING: UNKNOWN Performed By: #### L IPD, CMP, TSH, CBCAD #### [facility] Default [address] [place] [address] Glucose [Mass/Vol] 132 mg/dL High 65-99 [facility] Senior Quality Assurance Specialist Comment on above: Order Comment: [facility] Testing performed at: [facility], [address] [place] [address], [address] [place] [address], [phone], Orthotics Prosthetics Assistant: Senthil Ramsey MD [facility] Collection Date/Time: [facility] Results Received Date/Time: [facility] Reported Date/Time: FASTING: UNKNOWN Result Comment: Fasting reference interval For someone without known diabetes, a glucose value >125 mg/dL indicates that they may have diabetes and this should be confirmed with a follow-up test. Performed By: #### L IPD, CMP, TSH, CBCAD #### [facility] Default [address] [place] [address] Potassium [Moles/Vol] 3.9 mmol/L Normal 3.5-5.3 Ruthy cha [place] Senior Quality Assurance Specialist Comment on above: Order Comment: [facility] Testing performed at: [facility] [employer] [facility], [address] [place] [address], [address] [place] [address], [address] [place] [address], Orthotics Prosthetics Assistant: Senthil Ramsey MD [facility] Collection Date/Time: [facility] Results Received Date/Time: [facility] Reported Date/Time: FASTING: UNKNOWN Performed By: #### L IPD, CMP, TSH, CBCAD #### [facility] Default [address] [place] [address] Protein [Mass/Vol] 7.2 g/dL Normal 6.1-8.1 Latrell sanches [place] Senior Quality Assurance Specialist Comment on above: Order Comment: [facility] Testing performed at: [facility] [employer] [facility], [address] [place] [address], [address] [place] [address], [address] [place] [address], Orthotics Prosthetics Assistant: Senthil Ramsey MD [facility] Collection Date/Time: [facility] Results Received Date/Time: [facility] Reported Date/Time: FASTING: UNKNOWN Performed By: #### L IPD, CMP, TSH, CBCAD #### [facility] Default [address] [place] [address] Sodium [Moles/Vol] 141 mmol/L Normal 135-146 Latrell sanches [place] Senior Quality Assurance Specialist Comment on above: Order Comment: [facility] Testing performed at: [facility], [address] [place] [address], [address] [place] [address], [address] [place] [address], Orthotics Prosthetics Assistant: Senthil Ramsey MD [facility] Collection Date/Time: [facility] Results Received Date/Time: [facility] Reported Date/Time: FASTING: UNKNOWN Performed By: #### L IPD, CMP, TSH, CBCAD #### [facility] Default [address] [place] [address] Urea nitrogen [Mass/Vol] 18 mg/dL Normal 7-25 [facility] Senior Quality Assurance Specialist Comment on above: Order Comment: [facility] Testing performed at: [facility] [employer] [facility], [address] [place] [address], [address] [place] [address], [address] [place] [address], Orthotics Prosthetics Assistant: Senthil Ramsey MD [facility] Collection Date/Time: [facility] Results Received Date/Time: [facility] Reported Date/Time: FASTING: UNKNOWN Performed By: #### L IPD, CMP, TSH, CBCAD #### [facility] Default [address] [place] [address] Lipid Panelon 07-17-2021 Cholesterol [Mass/Vol] 306 mg/dL High <200 [facility] Comment on above: Order Comment: [facility] Testing performed at: [facility] [employer] [facility], [address] [place] [address], [address] [place] [address], [address] [place] [address], Orthotics Prosthetics Assistant: Senthil Ramsey MD [facility] Collection Date/Time: [facility] Results Received Date/Time: [facility] Reported Date/Time: FASTING: UNKNOWN Performed By: #### L IPD, CMP, TSH, CBCAD #### [facility] Default [address] [place] [address] Cholesterol in HDL [Mass/Vol] 49 mg/dL Low > OR = 50 [facility] Senior Quality Assurance Specialist Comment on above: Order Comment: [facility] Testing performed at: [facility] [employer] [facility], [address] [place] [address], [address] [place] [address], [phone], Orthotics Prosthetics Assistant: Senthil Ramsey MD [facility] Collection Date/Time: [facility] Results Received Date/Time: [facility] Reported Date/Time: FASTING: UNKNOWN Performed By: #### L IPD, CMP, TSH, CBCAD #### [facility] Default [address] [place] [address] LDLD SEE NOTE Normal [facility] Senior Quality Assurance Specialist Comment on above: Order Comment: [facility] Testing performed at: [facility] [employer] [facility], [address] [place] [address], [address] [place] [address], [id number], Orthotics Prosthetics Assistant: Senthil Ramsey MD [facility] Collection Date/Time: [facility] Results Received Date/Time: [facility] Reported Date/Time: FASTING: UNKNOWN Result Comment: LDL cholesterol not calculated. Triglyceride levels greater than 400 mg/dL invalidate calculated LDL results. Reference range: <100 Desirable range <100 mg/dL for primary prevention; <70 mg/dL for patients with CHD or diabetic patients with > or = 2 CHD risk factors. LDL-C is now calculated using the Nabil-Cedeno calculation, which is a validated novel method providing better accuracy than the Friedewald equation in the estimation of LDL-C. Nabil SS et al. CHRISTIN. 2013;310(19): 9467-0435 (http://education.DRESSBOOM.GetMyBoat/faq/OPJ337) Performed By: #### L IPD, CMP, TSH, CBCAD #### [facility] Default [address] [place] [address] NON HDL CHOLESTEROL 257 mg/dL (calc) High <130 [facility] Comment on above: Order Comment: [facility] Testing performed at: [facility], [email or web address] [facility], [address] [place] [address], [address] [place] [address], [phone], Orthotics Prosthetics Assistant: Senthil Ramsey MD [facility] Collection Date/Time: [facility] Results Received Date/Time: [facility] Reported Date/Time: FASTING: UNKNOWN Result Comment: Non- HDL level > or = 220 is very high and may indicate genetic familial hypercholesterolemia (FH). Clinical assessment and measurement of blood lipid levels should be considered for all first-degree relatives of patients with an FH diagnosis. For patients with diabetes plus 1 major ASCVD risk factor, treating to a non-HDL-C goal of <100 mg/dL (LDL-C of <70 mg/dL) is considered a therapeutic option. Performed By: #### L IPD, CMP, TSH, CBCAD #### [facility] Default [address] [place] [address] Triglyceride [Mass/Vol] 403 mg/dL High <150 [place] Comment on above: Order Comment: [facility] Testing performed at: [facility] [employer] [facility], [address], [address] [place], [address], Orthotics Prosthetics Assistant: Senthil Ramsey MD [facility] Collection Date/Time: [facility] Results Received Date/Time: [facility] Reported Date/Time: FASTING: UNKNOWN Result Comment: If a non-fasting specimen was collected, consider repeat triglyceride testing on a fasting specimen if clinically indicated. Leonie et al. J. of Clin. Lipidol. 2015;9:129-169. Performed By: #### L IPD, CMP, TSH, CBCAD #### [facility] Default [address] [place] [address] TSHon 07-17-2021 TSH Qn 0.95 m[IU]/L Normal [facility] Senior Quality Assurance Specialist Comment on above: Order Comment: [facility] Testing performed at: [facility] [employer] [facility], [address], [address] [place], [address], Orthotics Prosthetics Assistant: Senthil Ramsey MD [facility] Collection Date/Time: [facility] Results Received Date/Time: [facility] Reported Date/Time: FASTING: UNKNOWN Result Comment: Refe rence Range > or = 20 Years 0.40-4.50 Ranges First trimester 0.26-2.66 Second trimester 0.55-2.73 Third trimester 0.43-2.91 Performed By: #### L IPD, CMP, TSH, CBCAD #### [facility] Default [address] [place] [address] XR Spine Lumbar Complete w/F levi AND [place] 05-25-2021 XR Spine Lumbar Complete w/Flex AND Ext FINDINGS: L4-S1 pedicle screw fusion hardware, intervertebral disc spacer. Mild disc space loss above the level of fusion with minimal anterior wedging of the thoracolumbar junction, non-acute appearance. No osseous or hardware fracture. Normal SI joints. Flexion and extension: T12-L1 - L2-3: Normal alignment, no change L3-4: Several mm retrolisthesis, no change L4-5 - L5-S1: Fused segments, normal alignment, no change IMPRESSION: 1. L4-S1 fusion, near normal anatomic alignment 2. No significant motion with flexion and extension Report reported and signed by Rich Soriano on 05/26/2021 0756 Normal [facility] Specialist Laboratory - Hematology and Cell countson 07-22-2020 Nucleated RBC/100 WBC (Bld) [Ratio] 0.2 % 0-0.5 [facility] Vital Signs Date Time Vital Sign Value Performing Clinician Facility 04-11-2023 14:14-0500 Body height 165.1 cm Eliazar De Los Santos DPM Work Phone: [facility] 04-11-2023 14:14-0500 Body mass index (BMI) [Ratio] 33.45 kg/m2 Eliazar De Los Santos DPM Work Phone: [facility] 04-11-2023 14:14-0500 Body weight 91.17 kg Eliazar De Los Santso DPM Work Phone: [facility] 04-11-2023 14:14-0500 Diastolic blood pressure 80 mm[Hg] Eliazar De Los Santos DPM Work Phone: [facility] 04-11-2023 14:14-0500 Heart rate 82 /min Eliazar De Los Santos DPM Work Phone: [facility] 04-11-2023 14:14-0500 Systolic blood pressure 130 mm[Hg] Eliazar De Los Santos DPM Work Phone: [facility] 03-15-2023 12:54-0500 Body height 162.6 cm Dennis Foster MD Work Phone: [facility] 03-15-2023 12:54-0500 Body mass index (BMI) [Ratio] 35.7 kg/m2 Dennis Foster MD Work Phone: [facility] 03-15-2023 12:54-0500 Body weight 94.35 kg Dennis Foster MD Work Phone: [facility] 03-15-2023 12:54-0500 Diastolic blood pressure 80 mm[Hg] Dennis Foster MD Work Phone: [facility] 03-15-2023 12:54-0500 Heart rate 81 /min Dennis Foster MD Work Phone: [employer] [facility] [employer] 03-15-2023 12:54-0500 SaO2% (BldA) [Mass fraction] 98 % Dennis Foster MD Work Phone: [facility] 03-15-2023 12:54-0500 Systolic blood pressure 140 mm[Hg] Dennis Foster MD Work Phone: [facility] 10-18-2022 15:00-0400 Body height 165.1 cm Nir Danis Other [facility] Other 10-18-2022 15:00-0400 Body mass index (BMI) [Ratio] 33.08 kg/m2 Nir Danis Other [facility] Other 10-18-2022 15:00-0400 Body temperature 97.1 [degF] Nir Danis Other [facility] Other 10-18-2022 15:00-0400 Body weight 90.18 kg Nir Danis Other [facility] Other 10-18-2022 15:00-0400 Diastolic blood pressure 98 mm[Hg] Nir Danis Other [facility] Other 10-18-2022 15:00-0400 Respiratory rate 18 /min Nir Danis Other [facility] Other 10-18-2022 15:00-0400 SaO2% (BldA) [Mass fraction] 98 % Nir Danis Other [facility] Other 10-18-2022 15:00-0400 Systolic blood pressure 167 mm[Hg] Nir Danis Other Loc[facility] [employer] Other 07-12-2022 14:00-0400 Diastolic blood pressure 94 mm[Hg] MD Kala Lloyd Work Phone: [facility] 07-12-2022 14:00-0400 Heart rate 86 /min MD aKla Lloyd Work Phone: [facility] 07-12-2022 14:00-0400 Respiratory rate 16 /min MD Kala Lloyd Work Phone: [facility] 07-12-2022 14:00-0400 SaO2% (BldA) [Mass fraction] 99 % MD Kala Lloyd Work Phone: [facility] 07-12-2022 14:00-0400 Systolic blood pressure 165 mm[Hg] MD Kala Lloyd Work Phone: [facility] 07-12-2022 11:44-0400 Body height 162.56 cm MD Kala Lloyd Work Phone: [facility] 07-12-2022 11:44-0400 Body temperature 98.6 [degF] MD Kala Lloyd Work Phone: [facility] 07-12-2022 11:44-0400 Body weight 94.34 kg MD Kala Lloyd Work Phone: [facility] 06-04-2022 14:15-0400 Body height 165.1 cm Imad Asaad Other [place] [place] [facility] [employer] Other 06-04-2022 14:15-0400 Body mass index (BMI) [Ratio] 32.95 kg/m2 Imad Asaad Other [facility] Other 06-04-2022 14:15-0400 Body weight 89.81 kg Imad Asaad Other [facility] Other 06-04-2022 14:15-0400 Diastolic blood pressure 90 mm[Hg] Imad Asaad Other [facility] Other 06-04-2022 14:15-0400 Systolic blood pressure 145 mm[Hg] Imad Asaad Other [facility] Other 05-18-2022 11:46-0500 Body temperature 97.8 [degF] MD Kala Lloyd Work Phone: [facility] 05-18-2022 11:46-0500 Body weight 89.4 kg MD Kala Lloyd Work Phone: [facility] 05-18-2022 11:46-0500 Diastolic blood pressure 86 mm[Hg] MD Kala Lloyd Work Phone: [facility] 05-18-2022 11:46-0500 Heart rate 94 /min MD Kala Lloyd Work Phone: [facility] 05-18-2022 11:46-0500 Respiratory rate 16 /min MD Kala Lloyd Work Phone: [facility] 05-18-2022 11:46-0500 SaO2% (BldA) [Mass fraction] 98 % MD Kala Lloyd Work Phone: [facility] 05-18-2022 11:46-0500 Systolic blood pressure 149 mm[Hg] MD Kala Lloyd Work Phone: [facility] 04-12-2022 12:40-0500 Body height 165.1 cm Nir Danis Other [facility] Other 04-12-2022 12:40-0500 Body mass index (BMI) [Ratio] 32.85 kg/m2 Nir Danis Other [facility] Other 04-12-2022 12:40-0500 Body temperature 96.7 [degF] Nir Danis Other [facility] Other 04-12-2022 12:40-0500 Body weight 89.54 kg Nir Danis Other [facility] Other 04-12-2022 12:40-0500 Diastolic blood pressure 84 mm[Hg] Nir Danis Other [facility] Other 04-12-2022 12:40-0500 Respiratory rate 18 /min Nir Danis Other [facility] Other 04-12-2022 12:40-0500 SaO2% (BldA) [Mass fraction] 97 % Nir Danis Other [facility] Other 04-12-2022 12:40-0500 Systolic blood pressure 139 mm[Hg] Nir Danis Other [facility] Other 09-14-2021 13:00-0400 Body height 165.1 cm Nir Danis Other [employer] Other 09-14-2021 13:00-0400 Body mass index (BMI) [Ratio] 34.44 kg/m2 Nir Danis Other [facility] Other 09-14-2021 13:00-0400 Body temperature 96.6 [degF] Nir Danis Other [facility] Other 09-14-2021 13:00-0400 Body weight 93.9 kg Nir Danis Other [facility] Other 09-14-2021 13:00-0400 Diastolic blood pressure 80 mm[Hg] Nir Danis Other [facility] Other 09-14-2021 13:00-0400 Respiratory rate 18 /min Nir Danis Other [facility] Other 09-14-2021 13:00-0400 SaO2% (BldA) [Mass fraction] 97 % Nir Danis Other [facility] Other 09-14-2021 13:00-0400 Systolic blood pressure 132 mm[Hg] Nir Danis Other [facility] Other 04-22-2020 14:49-0500 Body height 165.1 cm MD Kala Lloyd Work Phone: [facility] Encounters Encounter Date Encounter Type Care Provider Facility Start: 04-15-2023 End: 04-15-2023 ambulatory LINDY VALENTINO Not Available Start: 04-11-2023 End: 04-11-2023 ambulatory ELIAZAR DE LOS SANTOS Not Available Start: 04-11-2023 End: 04-11-2023 Office outpatient visit 15 minutes Eliazar De Los Santos DPM Work Phone: [facility] Comment on above: Metatarsalgia, left foot (Primary Dx); Diabetes 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 polyneuropathy, with long-term current use of insulin ([facility]); Onychomycosis; Toe pain, right; Toe pain, left Start: 04-05-2023 End: 04-05-2023 ambulatory KALA LLOYD Not Available Start: 04-02-2023 End: 04-02-2023 ambulatory LAVERNE PORTER Not Available Start: 04-01-2023 End: 04-11-2023 ambulatory DENNIS marshall Start: 04-01-2023 End: 04-11-2023 ambulatory DENNIS [facility] Start: 03-29-2023 End: 04-01-2023 ambulatory REYMUNDO GIRON [facility] Start: 03-28-2023 Telephone encounter Don Taylor RN [facility] Comment on above: Direct LDL Start: 03-27-2023 End: 04-11-2023 ambulatory DENNIS [facility] Start: 03-15-2023 End: 03-16-2023 ambulatory BRANDON GONZALESBirdBARRETT Not Available Start: 03-15-2023 End: 03-15-2023 ambulatory DENNIS [facility] Start: 03-15-2023 End: 03-15-2023 Office outpatient visit 25 minutes Dennis Foster MD Work Phone: [facility] Comment on above: Chest pain, unspecif ied type (Primary Dx); Primary hypertension; Familial hypercholesterolemia; Abnormal EKG Start: 03-14-2023 Telephone encounter Ramila Jones CMA [facility] Start: 02-27-2023 End: 02-27-2023 ambulatory LIVE KWON [facility] Start: 02-20-2023 End: 02-20-2023 ambulatory LNIDY VALENTINO Not Available Start: 02-14-2023 End: 02-14-2023 ambulatory ELIAZAR DE LOS SANTOS Not Available Start: 02-06-2023 End: 02-06-2023 ambulatory LINDY VALENTINO Not Available Start: 01-28-2023 End: 01-29-2023 ambulatory BRANDON GONZALESWILL Not Available Start: 01-21-2023 End: 01-21-2023 ambulatory KAYLIE LANG Not Available Start: 10-18-2022 End: 10-18-2022 ambulatory Nir Danis Other [facility] Other Start: 10-18-2022 Office outpatient visit 25 minutes Nir Danis [facility] Start: 09-05-2022 End: 09-05-2022 ambulatory Imad Asaad Facility:[facility] Start: 08-09-2022 End: 08-09-2022 ambulatory Kaylie Lang Facility:[facility] Start: 08-09-2022 End: 08-09-2022 ambulatory MD Kala Lloyd Work Phone: [facility] Work Phone: Start: 08-09-2022 End: 08-09-2022 Patient encounter procedure MD Kala Lloyd Work Phone: [facility] Work Phone: Start: 07-25-2022 End: 07-25-2022 ambulatory Kaylie Lang Facility:[facility] Start: 07-25-2022 End: 07-25-2022 Patient encounter procedure MD Kala Lloyd Work Phone: [facility] Work Phone: Start: 07-23-2022 End: 07-23-2022 ambulatory Nir Danis Facility:[facility] Start: 07-23-2022 End: 07-23-2022 ambulatory MD Kala Lloyd Work Phone: [facility] Work Phone: Start: 07-23-2022 End: 07-23-2022 Patient encounter procedure MD Kala Lloyd Work Phone: [facility] Work Phone: Start: 07-18-2022 Telephone encounter Nir Danis [facility] Start: 07-18-2022 End: 07-19-2022 ambulatory NIR DANIS [facility] [employer] Other Start: 07-12-2022 End: 07-12-2022 ambulatory Kaylie R Scott Facility:[facility] Start: 07-12-2022 End: 07-12-2022 Admission to same day surgery center MD Kala Lloyd Work Phone: [facility] Work Phone: Start: 07-12-2022 End: 07-12-2022 ambulatory MD Kala Lloyd Work Phone: [facility] Work Phone: Start: 07-10-2022 Registered Recurring MD Kala tam Work Phone: [facility] Start: 07-02-2022 End: 07-03-2022 ambulatory NIR DANIS Facility:[facility] Start: 06-04-2022 End: 06-04-2022 ambulatory Imad Asaad Other [facility] [employer] Other Start: 06-04-2022 Office outpatient ne w 45 minutes Imad Asaad [facility] Start: 05-18-2022 End: 05-18-2022 ambulatory MD Kala Lloyd Work Phone: [facility] Work Phone: Start: 05-18-2022 End: 05-18-2022 Registered Recurring MD Kala Lloyd Work Phone: [facility] Work Phone: Start: 04-12-2022 End: 04-13-2022 ambulatory NIR DANIS [facility] [employer] Other Start: 04-12-2022 Office outpatient visit 25 minutes Nir Danis [facility] Start: 04-05-2022 End: 04-06-2022 ambulatory NIR DANIS Facility:[facility] Start: 02-07-2022 End: 02-08-2022 ambulatory Eliazar De Los Santos Facility:[facility] Start: 02-07-2022 End: 02-07-2022 Lab Drop off Eliazar De Los Santos [facility] Start: 02-05-2022 End: 02-06-2022 ambulatory Eliazar De Los Santos Facility:[facility] Start: 02-05-2022 End: 02-05-2022 Patient encounter procedure Eliazar De Los Santos [facility] Start: 01-08-2022 End: 01-09-2022 ambulatory Eliazar De Los Santos Facility:[facility] Start: 01-08-2022 End: 01-08-2022 Patient encounter procedure Eliazar De Los Santos [facility] Start: 09-14-2021 End: 09-14-2021 ambulatory Nir Danis Other [employer] Other Start: 09-14-2021 Office outpatient visit 25 minutes Nir Danis [facility] Start: 09-12-2021 End: 09-13-2021 ambulatory NIR DANIS Facility: Start: 08-30-2021 End: 08-31-[address] [facility]MS [facility] Facility: Procedures Date Procedure Procedure Detail Performing Clinician Start: 03-15-2023 Follow-up visit Follow-up DENNIS FOSTER Start: 03-15-2023 Ecg routine ecg w/least 12 lds w/i&r Dennis Foster MD Work Phone: Start: 09-05-2022 Colonoscopy Eliazar De Los Santos DPM Work Phone: Start: 08-09-2022 Ultrasound elastography of liver MD Kala Lloyd Work Phone: Start: 07-25-2022 Computed tomography of abdomen and pelvis with contrast MD Kala Lloyd Work Phone: Start: 07-23-2022 History of total hysterectomy Hx of total hysterectomy Eliazar De Los Santos DPM Work Phone: Start: 07-23-2022 Single photon emission computed tomography of parathyroid MD Kala Lloyd Work Phone: Start: 07-12-2022 Esophagogastroduodenoscopy MD Kala Lloyd Work Phone: Start: 03-09-2022 Mammography Eliazar De Los Santos DPM Work Phone: Plan of Treatment Date Care Activity Detail Author Start: 09-05-2032 Screening for malignant neoplasm of colon [facility] Start: 03-15-2024 Adult BMI Screening Adult BMI Screening [facility] Start: 03-15-2024 Tobacco Screening Tobacco Screening [facility] Start: 02-28-2024 Tobacco Screening Tobacco Screening [facility] Start: 01-23-2024 Adult BMI Screening Adult BMI Screening [facility] Start: 09-28-2023 Glaucoma screening Diabetes: Retinopathy Screening [facility] Start: 09-08-2023 Influenza vaccination Influenza Vaccine (#1) [facility] Comment on above: Postponed from 11/09/2022 (Patient Refus ed) Start: 07-02-2023 End: 07-02-2023 Patient encounter procedure 07/02/2023 2:15 PM EDT Office Visit [facility] [address] [facility] [address] [place] [address] Laverne Porter DO [address] [facility] [address] [place] [address] [facility] Start: 07-02-2023 Hemoglobin A1c measurement Diabetes: Hemoglobin A1C [facility] Start: 06-20-2023 End: 06-20-2023 Patient encounter procedure 06/20/2023 2:00 PM EDT Office Visit [facility] [address] [facility] [address] [place] [address] Eliazar De Los Santos, DPM [address] [facility] 5 [place] [address] [facility] Start: 04-17-2023 End: 04-17-2023 Patient encounter procedure 04/17/2023 2:30 PM EST Office Visit [facility] [address] [place] [phone] Live Kwon, PADarrellC [address] [place] [address] [facility] Start: 04-15-2023 End: 04-15-2023 Clinical Support 04/15/2023 11:00 AM EST Clinical Support [facility] [address] [place] [address] Lindy Valentino, [facility] [address] [place] [address] [facility] Start: 04-01-2023 End: 04-01-[address] [facility] Start: 03-29-2023 End: 03-29-2023 Admission to same day surgery center 03/29/2023 10:34 AM EST - 03/29/2023 10:[address] [facility] [address] [place] [facility] [place] [phone] Reymundo Giron MD [address] [place], [place] [id number] INJECTION BLOCK NERVE MEDIAL BRANCH Bilat L 2/3, 3/4 [21275 (CPT )] [facility] Comment on above: INJECTION BLOCK NERVE MEDIAL BRANCH Bila t L 2/3, 3/4 [06423 (CPT )] Start: 03-29-2023 End: 03-29-2023 Njx dx/ther agt pvrt facet jt lmbr/sac 1 level INJECTION BLOCK NERVE MEDIAL BRANCH Lumbar spondylosis 03/29/2023 10:34 AM EST [facility] Start: 03-29-2023 Subsequent hospital visit by physician [facility] Start: 03-29-2023 End: 03-29-2023 Patient encounter procedure 03/29/2023 8:[address] [facility] [address] [place] [phone] Reymundo Giron MD [address] [place], [place] [id number] [facility] Start: 03-27-2023 End: 03-27-[address] [facility] Start: 03-22-2023 End: 03-15-2024 Basic metabolic 2000 panel - Serum or Plasma Basic Metabolic Panel Lab Routine Primary hypertension Familial hypercholesterolemia Chest pain, unspecified type Abnormal EKG Expected: 03/22/2023 (Approximate), Expires: 03/15/2024 [facility] Comment on above: Expected: 03/22/2023 (Approximate), Expi res: 03/15/2024 Start: 03-22-2023 End: 03-15-2024 CBC W Auto Differential panel - Blood CBC auto differential Lab Routine Primary hypertension Familial hypercholesterolemia Chest pain, unspecified type Abnormal EKG Expected: 03/22/2023, Expires: 03/15/2024 [facility] Comment on above: Expected: 03/22/2023, Expires: Start: 03-22-2023 End: 03-15-2024 Lipid 1996 panel - Serum or Plasma Lipid profile Lab Routine Primary hypertension Familial hypercholesterolemia Chest pain, unspecified type Abnormal EKG Expected: 03/22/2023, Expires: 03/15/2024 [facility] Comment on above: Expected: 03/22/2023, Expires: Start: 03-22-2023 End: 03-14-2024 NM Heart Perfusion W adenosine and W radionuclide IV Nuc stress Lexiscan/Exercise Cardiac Services Routine Chest pain, unspecified type Abnormal EKG Expected: 03/22/2023, Expires: 03/14/2024 [facility] Work Phone: Comment on above: Expected: 03/22/2023, Expires: Start: 03-15-2023 End: 03-15-2023 Patient encounter procedure 03/15/2023 1:00 PM EST [facility] [address] [place] [phone] Dennis Foster MD [address] [place] [address] [facility] Start: 03-09-2023 Screening for malignant neoplasm of breast Mammogram [facility] Start: 11-09-2022 Influenza vaccination Influenza Vaccine [facility] Start: 08-09-2022 [facility] Start: 07-12-2022 [facility] Start: 04-27-2022 [facility] Start: 12-24-2021 Administration of varicella zoster vaccine Zoster (Shingles) Vaccine (1 of 2) [facility] Start: 12-24-1990 DTaP,Tdap and Td Vaccines (1 - Tdap) DTaP,Tdap and Td Vaccines (1 - Tdap) [facility] Start: 12-24-1989 Adult BMI Follow Up Plan Adult BMI Follow Up Plan [facility] Start: 12-24-1989 Diabetic foot examination Diabetic Foot Exam [facility] Start: 1983 Depression Screening Depression Screening [facility] Start: 1971 Glaucoma screening Diabetic Ophthalmology Exam [facility] Start: 1971 Screening for malignant neoplasm of colon [facility] Start: 1971 Tobacco Counseling Tobacco Counseling [facility] End: 03-28-2024 Cholesterol in LDL [Mass/volume] in Serum or Plasma LDL cholesterol, direct Lab Routine Familial hypercholesterolemia 1 Occurrences starting 03/28/2023 until 03/28/2024 [facility] Work Phone: Comment on above: 1 Occurrences starting 03/28/2023 until 03/28/2024 Njx dx/ther agt pvrt facet jt lmbr/sac 1 level INJECTION BLOCK NERVE MEDIAL BRANCH Lumbar spondylosis [facility] Patient Education Gastritis (DC) [facility] Work Phone: [facility] Immunizations Immunization Date Immunization Notes Care Provider Page celestin 06-21-2021 hepatitis B vaccine, adult dosage Eliazar De Los Santos DPM Work Phone: [facility] 03-01-2020 hepatitis A vaccine, adult dosage Eliazar De Los Santos DPM Work Phone: [facility] 03-01-2020 hepatitis B vaccine, adult dosage Eliazar De Los Santos DPM Work Phone: [facility] 01-24-2020 hepatitis A vaccine, adult dosage Eliazar Filiberto DPM Work Phone: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 normal S1 and S2 with no murmurs. Gastrointestinal: Soft, non-tender. Bowel sounds normal. Musculoskeletal: No peripheral edema. Neurologic: Oriented to time, person and place, affect appropriate. No focal/major motor defects noted. Psychiatric: Appropriate mood, memory and judgement. VITAL SIGNS: BP 140/80 (BP Site: Left Arm, BP Postition: Sitting) Pulse 81 Ht 162.6 cm (5' 4 ) Wt 94.3 kg (208 lb) SpO2 98% BMI 35.70 kg/m Orders Placed or Reconciled This Encounter Medications LORazepam (ATIVAN) 1 mg tablet Sig: Take 1 tablet (1 mg total) by mouth in the morning. 1 tablets 3 times daily and 2 tablets at bedtime. Medications Discontinued During This Encounter Medication Reason alirocumab (PRALUENT PEN) 75 mg/mL pen injector Therapy completed yxdtlnnc-idzy-AM-calcium &mins (THERAGRAN-M) 9 mg iron-400 mcg tablet Therapy completed IMPRESSIONS/PLAN 1. Primary hypertension - POCT EKG - CBC auto differential; Future - Basic Metabolic Panel; Future - Lipid profile; Future 2. Familial hypercholesterolemia - POCT EKG - CBC auto differential; Future - Basic Metabolic Panel; Future - Lipid profile; Future 3. Chest pain, unspecified type - Nuc stress Lexiscan/Exercise; Future - CBC auto differential; Future - Basic Metabolic Panel; Future - Lipid profile; Future 4. Abnormal EKG - Nuc stress Lexiscan/Exercise; Future - CBC auto differential; Future - Basic Metabolic Panel; Future - Lipid profile; Future Chest pain over last month, atypical DM HTN Probable familial hyperlipidemia, unable to get coverage for PCSK9 inhibitor. Currently on atorvastatin and Zetia. Tobacco abuse Plan: EKG today NSR nonspecific T wave changes Patient has extensive risk factors including familial hyperlipidemia, diabetes mellitus and hypertension Would recommend an ischemic evaluation. I recommended a coronary CTA which would risk stratify her long-term better. However, she tells me the drive to [place] would kill me . She has not willing to pursue this at [place]. Given that, I would repeat a stress test on her. I do an exercise-Lexiscan stress test as she is able to ambulate to some extent at this point. Otherwise, will see her back in follow-up. An abnormality on the stress test, will bring her back about consideration of diagnostic catheterization after optimizing meds. TODAYS ORDERS Orders Placed This Encounter Procedures CBC auto differential Basic Metabolic Panel Lipid profile Nuc stress Lexiscan/Exercise POCT EKG FOLLOW UP Return in about 6 months (around 09/13/2023). PCP: TRUPTI AGUILERA Referring Physician: TRUPTI Aguilera [address] [place] [address] documented [facility] this encounter [facility] Instructions Ramila Jones CMA - 03/15/2023 1:00 PM EST Are You Ready To Kick The Habit? Free Tobacco Cessation Resources [facility] Services [facility] provide all employees with free tobacco cessation services that include: Counseling to understand nicotine addiction Education about medications that can help you successfully quit Assistance with developing a plan to quit Call to set up an individual appointment or find out when group classes will be held: [facility]: [phone] [facility]: [phone] [facility]: [phone] [facility]: [phone] Quit Smoking Action Plan and Resources [facility] offers an eight-week, online smoking cessation plan to all [facility] employees, regardless of whether [place] is your medical insurance provider. Go to www.ev-social.org/employeewellne ss and click the Health Risk Assessment and Resources link to get started. In the [employer] menu, click Action Plans instead of Health Risk Assessment to access the Quit Smoking Action Plan. Additional smoking cessation resources are also available to all [facility] employees on the Fgrkp7Tnvtzp web page at www.SupportSpace/quitsm carline. [place] Tobacco Cessation Program If [place] is your medical insurance provider, there are more free resources available to you, including: No copays or deductibles on local tobacco cessation counseling services to help you quit Prescription assistance for tobacco cessation medications to help you quit For details about the tobacco cessation program available to [place] members, go to www.SupportSpace (Search: Tobacco Cessation Program). [place] Tobacco Quit Line 2-666-RWPQ-NOW ( ) is a toll-free, telephonic service that helps [place] residents quit smoking and using tobacco. It is staffed by experts who tailor a quit plan for you and provide you with advice. [place] Tobacco Quit Line 0-492-KAEG-NOW ( ) is a toll-free, telephonic service that helps [place] residents quit smoking and using tobacco. It is staffed by experts who tailor a quit plan for you and provide you with advice. Two weeks of nicotine replacement therapy may be provided at no charge, if needed. Additional Resources These national organizations also offer free information and resources to help you quit tobacco: [place] [employer]--www.cancer.org/healthy/st ayawayfromtobacco [place] Heart [employer]--www.heart.org (Search: Quit Smoking) Centers for Disease Control and Prevention--www.cdc.gov/tobacco [place] Lung Association--www.lungusa.org documented in this encounter [facility] 03-14-2023 Miscellaneous Notes Called patient to remind them to bring their most current copy of their medication list with them to their appt. Patient verbalizes understanding. documented in this encounter [facility] 03-14-2023 Telephone encounter Note Called patient to remind them to bring their most current copy of their medication list with them to their appt. Patient verbalizes understanding. [facility] 10-18-2022 Evaluation note Encounter Date Diagnosis Assessment Notes Oct, Persistent proteinuria (ICD-10 - R80.1) She has subnephrotic Proteinuria likely due to longstanding DM and HTN. She has negative serologies for Hep B &C. She is not vaccinated for Hep B and reported that it is not covered by her insurance. She will not tolerate the higher dose of the lisinopril due to the hypotension. Oct, Chronic kidney disease, stage III (moderate) (ICD-10 - N18.30) She has a CKD due to the DM and HTN. Her baseline serum creatinine is 0.9-1.1 mg/dL. I have advised her to avoid NSAIDs. I discussed with her the importance of good DM and HTN control to slow down the progression of CKD Oct, Adrenal nodule (ICD-10 - E27.9) She was found to adrenal nodule on CT scan consistent with adenoma. She has a negative work-up for hyperfunctioning adenoma including [place], pheochromocytoma and primary hyperaldosteronism . Oct, Type 2 diabetes mellitus with diabetic chronic kidney disease (ICD-10 - E11.22) I have advised her to continue to follow with Dr. Porter for DM management. Continue lisinopril for renal protection. Oct, Hypertensive chronic kidney disease with stage 1 through stage 4 chronic kidney disease, or unspecified chronic kidney disease (ICD-10 - I12.9) Her blood pressure is controlled. Continue current medications Oct, Hypomagnesemia (ICD-10 - E83.42) She has hypomagnesemia likely due to PPI induced GI losses of magnesium. Continue amiloride and continue oral magnesium twice daily Oct, Hypercalcemia (ICD-10 - E83.52) She has intermittent hypercaclemia with normal PTH and vitamin D. She denies any intake of the calcium supplement vitamin D. Differential diagnoses for hypercalcemia are malignancy, paraproteinemia, sarcoidosis or lymphoma. She has a low one 25-hydroxy vitamin D and unremarkable PTH RP. 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 We will check 24-hour urine for calcium. I have advised the patient to avoid calcium supplements. [facility] Other 05-10-2023 Evaluation note* Encounter Date Diagnosis Assessment Notes Treatment Notes Treatment Clinical Notes July, Hypercalcemia (ICD-1 0 - E83.52) [facility] Other 05-04-2023 Procedure [facility]03-27-2023 Evaluation note* Encounter Date Diagnosis Assessment Notes Treatment Notes Treatment Clinical Notes May, Dysphagia (ICD-10 - R13.10) May, GERD (gastroesophageal reflux disease) (ICD-10 - K21.9) Encouraged lifestyle and diet modifications Continue Pantoprazole 40mg twice daily, 30 minutes prior to breakfast and supper. Arrange for EGD May, Esophageal spasm (ICD-10 - K22.4) May, Globus sensation (ICD-10 - F45.8) [facility] Other 02-17-2023 Progress note Author Isela Downs [facility] April 27, 2022 3:36pm Note Date/Time April 27, 2022 9:49am [facility] at [address] [address] Hem/Onc Follow Up Note - OP Signed Patient: Keya Ley MR#: [id number] : 1970 Acct:[id number] Age/Sex: 51 / F Type: REG RCR Copies to: MD Kaylie Eason, [employer], ANESTHESIOLOGIST ATTENDING Kala Lloyd MD~ Subjective Date/Time of Service: Date of Service: 04/27/2022 Time of Service: 09:49 Chief Complaint: Patient is here today for a referral from Nir Horvath MD for hypercalcemia and erythrocytosis HPI: Ms. Ley is a now 51-year-old lady who was previously seen by my partner Dr. Josh Bhatia in 2020 for leukocytosis. I was contacted by Dr. Horvath of nephrology that the patient was found to have hypercalcemia to 11.5 with low PTH of 9. He raise concern that she may have paraproteinemia or paraneoplastic syndrome and referred her for repeat hematology evaluation. She also had mild elevation of hemoglobin and leukocytosis. Patient reports that she has recently had increased low back pain although she has had prior spinal surgery. She has COPDwith no recent exacerbation. Stable nonproductive cough. She had low-dose noncontrast screening chest CT scan last week showing no evidence of pulmonary nodules or adenopathy. She has been followed by Dr. Horvath for chronic kidney disease over the last 3 years and reports that she had presented with diabetic ketoacidosis requiring hospitalization in 2013. She denies any gain or loss of weight. She notes thatin the middle of March she had 1 week of recurrent nausea vomiting and diarrhea about [address] Horvath but all of the symptoms resolved. When he noted her elevated calcium level he recommended stopping her supplemental vitamin D. She has not had any follow-up laboratories since that visit until today. Due to concern with her renal insufficiency and hypercalcemia she was consented to bone marrow aspiration and biopsy which is performed today and documented in a separate visit. We did repeat her laboratory showing now high normal white blood cell count, normal hemoglobin, and calcium has now returned to normal 9.6. Glucose is elevated to 327 with likely pseudohyponatremia to 135. She will follow-up in 3 weeks to review results but will be contacted sooner if concerning findings are found on her bone marrow aspiration biopsy. Further follow-up plan will be based on the results of her bone marrow biopsy. Comorbidities: hypertension, insulin-dependent diabetes, obesity, asthma, COPD, active smoker. ROS Details: All systems reviewed & no additional complaints except as documented Subjective/ROS - Narrative: CONSTITUTIONAL: Negative for fatigue (prior illness as per HPI resolved in mid March), negative for fever or night sweats. HEAD AND NECK: Negative for changes in hearing and vision. Negative for mouth ulcers, nasal congestion and nasal drainage. PULMONARY: Negative for chest pain, cough and dyspnea. CARDIOVASCULAR: Negative for claudication and irregular heartbeat/palpitations. No known coronary artery disease. GASTROINTESTINAL: Negative for abdominal pain, constipation, decreased appetite,diarrhea, nausea or vomiting currently. No melena or bright red blood per rectum. GENITOURINARY: Negative for dysuria and hematuria. ENDOCRINE: Negative for cold intolerance and heat intolerance. Positive for type 1 diabetes mellitus. CENTRAL NERVOUS SYSTEM: Negative for gait disturbance and headache. No peripheral neuropathy symptoms. PSYCHIATRIC: Negative for anxiety or depression. DERMATOLOGICAL: Negative for pruritus and rash. Negative for suspicious skin lesions. MUSCULOSKELETAL: Positive for recent worsening of chronic lumbar back pain and bone/joint symptoms. She had lumbar spine surgery about 3 years ago. HEMATOLOGICAL: Negative for bleeding and easy bruising. Negative for history of transfusion or thromboembolic disease ALLERGY: Negative for environmental allergies and food allergies. [facility] - History Attestation statement: The following information was validated with the patient. Source: Old Records Reviewed - Medical History Medical History: Medical History (Last Reviewed 04/27/22 @ 15:23 by Isela Downs MD) Anxiety Arthritis Asthma Back pain Bipolar disorder Chronic back pain COPD (chronic obstructive pulmonary disease) DDD (degenerative disc disease) Depression Diabetes Diabetes mellitus, type 2 GERD (gastroesophageal reflux disease) History of vertigo Hypercholesteremia Hyperlipidemia Hypertension Kidney disease stage 1 Lumbar adjacent segment disease with spondylolisthesis Lumbosacral disc herniation WICK (nonalcoholic steatohepatitis) OCD (obsessive compulsive disorder) Polycystic ovarian disease PTSD (post-traumatic stress disorder) Sciatica Seasonal allergies and sinus problem Sleep apnea Spinal stenosis - Surgical History Surgical History: Surgical History (Last Reviewed 04/27/22 @ 15:23 by Isela Downs MD) H/O left wrist surgery History of carpal tunnel surgery of right wrist History of cholecystectomy History of esophagogastroduodenoscopy (EGD) w/dilitation History of hysterectomy with bilateral oophorectomy - Family History Family History: Family History (Last Reviewed 04/27/22 @ 15:23 by Isela Downs MD) Father Diabetes Narcissism Kidney failure COPD (chronic obstructive pulmonary disease) HTN (hypertension) Leukemia Mother Rheumatoid arthritis Sciatica Scoliosis Diabetes CHF (congestive heart failure) Psoriatic arthritis Depression Tachycardia Asthma Sister Diabetes Congenital abnormality bone disorder - Social History Smoking Status: Current every day smoker Tobacco Type: cigarettes Substance Use Type: None Social History Comments[place] Medications & Allergies Allergies bee pollen Allergy (Verified 04/27/22 09:41) Anaphylaxis coconut Allergy (Verified 04/27/22 09:41) Rash codeine Allergy (Verified 04/27/22 09:41) Nausea dapagliflozin [From Farxiga] Allergy (Verified 04/27/22 09:41) Rash latex Allergy (Verified 04/27/22 09:41) Rash onion Allergy (Verified 04/27/22 09:41) Anaphylaxis acetaminophen [From Tylenol] Adverse Reaction (Verified 04/27/22 09:41) Unknown Reaction Tide Allergy (Uncoded 04/27/22 09:41) Rash Home Medications chlorpromazine 200 mg tablet 500 mg PO HS sleep 05/15/18 [History Confirmed 04/27/22] desvenlafaxine succinate 100 mg tablet,extended release 24 hr 100 mg PO DAILY depression 05/15/18 [History Confirmed 04/27/22] doxepin 50 mg capsule 50 mg PO TID anxiety 05/15/18 [History Confirmed 04/27/22] gabapentin 800 mg tablet 800 mg PO QID mental illness 05/15/18 [History Confirmed 04/27/22] lisinopril 20 mg tablet 20 mg PO DAILY kidney protection 05/15/18 [History Confirmed 04/27/22] metformin 1,000 mg tablet 1,000 mg PO BID diabetes 05/15/18 [History Confirmed 04/27/22] albuterol sulfate 90 mcg/actuation aerosol inhaler 2 puff inhalation Q4-6H PRN Shortness Of Breath Or Wheezing 05/25/19 [History Confirmed 04/27/22] cetirizine 10 mg tablet 10 mg PO DAILY allergies 05/25/19 [History Confirmed 04/27/22] insulin aspart U-100 100 unit/mL (3 mL) subcutaneous pen (Novolog FlexPen U-100 Insulin aspart) 15 - 40 unit subcut TIDWM diabetes 05/25/19 [History Confirmed 04/27/22] multivitamin 1 tab PO QAM 05/25/19 [History Confirmed 04/27/22] ropinirole 0.25 mg tablet 0.25 mg PO QHS restless legs 05/25/19 [History Confirmed 04/27/22] insulin glargine 100 unit/mL (3 mL) subcutaneous pen (Lantus Solostar U-100 Insulin) 45 unit subcut BID 04/21/20 [History Confirmed 04/27/22] naproxen 500 mg tablet 500 mg PO Q12H 04/21/20 [History Confirmed 04/27/22] ezetimibe 10 mg tablet 10 mg PO DAILY 12/02/20 [History Confirmed 04/27/22] pantoprazole 40 mg tablet,delayed release 40 mg PO BID 12/02/20 [History Confirmed 04/27/22] alirocumab 75 mg/mL subcutaneous pen injector (Praluent Pen) 75 mg subcut Q14D 04/26/22 [History Confirmed 04/27/22] atorvastatin 80 mg tablet 80 mg PO DAILY 04/26/22 [History Confirmed 04/27/22] divalproex 500 mg tablet,extended release 24 hr (Depakote ER) 500 mg PO DAILY 04/26/22 [History Confirmed 04/27/22] magnesium oxide 400 mg PO DAILY 04/26/22 [History Confirmed 04/27/22] tiotropium 2.5 mcg-olodaterol 2.5 mcg/actuation mist for inhalation (Stiolto Respimat) 2 puff inhalation DAILY 04/26/22 [History Confirmed 04/27/22] Objective - Height/Weight Height/Weight: Height 5 ft 5 in Weight 90.3 kg - Vital Signs Vital Signs: 04/27/22 09:42 Temperature 97.8 F Pulse Rate [Left Brachial] 88 Respiratory Rate 16 Blood Pressure [Left Arm] 161/84 H 02 Sat by Pulse Oximetry 98 Oxygen Delivery Method Room Air - Pain Back Pain Intensity: 5 Right Flank Pain Intensity: 5 Physical Exam Narrative: CONSTITUTIONAL: The patient is in no acute distress. HEAD / FACE: Normocephalic. EYES: Pupils are equal and reactive to light. Conjunctivae and lids are benign in appearance. Ocular movement intact. EARS: Hearing grossly intact. NOSE / MOUTH / THROAT: Nose, mouth, tongue and oropharynx are benign in appearance. No signs of inflammation. NECK / THYROID: Neck is supple. Thyroid is symmetrical, without thyromegaly, masses or palpable nodules. LYMPHATIC: No palpable cervical, supraclavicular, axillary, or inguinal adenopathy. RESPIRATORY: Normal to inspection. Lungs clear to auscultation and percussion. No wheezing, rales, rhonchi or rubs. Normal effort. CARDIOVASCULAR: Regular rate and rhythm. No murmurs, gallops, or rubs. VASCULAR: Carotid, radial, femoral and pedal pulses present bilaterally. No bruits. ABDOMEN: Bowel sounds normoactive. Soft, nontender and non-distended. No hepatosplenomegaly. No masses. GENITOURINARY: No CVA tenderness. No suprapubic fullness or tenderness. No groinadenopathy. No evidence of hernias. INTEGUMENTARY: The skin is unremarkable. No rashes. No suspicious lesions BACK / SPINE: The back is nontender with no step-off deformity--well-healed incisions from prior spine surgery. MUSCULOSKELETAL: Normal musculature, no joint deformities or abnormalities, normal range of motion for all four extremities. EXTREMITIES: No edema, cyanosis or clubbing. No Chirstina sign. NEUROLOGICAL: Alert and oriented. Cranial nerves intact. No gross motor or sensory deficits. PSYCHIATRIC: No anxiety or evidence of depression. - ECOG Performance Status ECOG Score: 1 Results - Labs Labs: Diagram of Most Recent CBC and CMP 07/22/20 10:18 04/27/2022: White blood cells 11,300, hemoglobin 15.2, hematocrit 45.4, platelet count 257,000, absolute neutrophil count 6900 Sodium 135, potassium 4.3, BUN 14, creatinine 0.9, glucose 327 Calcium 9.6, total bilirubin 0.4, AST 26, ALT 36, alkaline phosphatase 57, totalprotein 6.9, albumin 3.6 Outside Labs: [facility] nephrology labs 04/05/2022: White blood cells 11,700, hemoglobin 16.2, hematocrit 51.5, platelet count 280,000 Sodium 136, potassium 3.5, glucose 229, BUN 20, creatinine 1.17, EGFR 49, calcium 11.5, albumin 3.5, phosphorus 3, magnesium low 1.1 Uric acid elevated 8, vitamin D 25-hydroxy 49.7 (vitamin D insufficient), PTH intact 9 (low) Urine total protein greater than 200, urine creatinine 304.32, urine protein/creatinine ratio 0.66 - [facility] medical specialists 04/25/2022 CT chest without contrast (low-dose screening CT) Impression: There are no acute cardiopulmonary changes. There are no pulmonary nodules. Lung RADS category 1. Continue annual screening with low-dose CT in 12 months. Assessment and Plan (1) Hypercalcemia 51-year-old lady with stage III chronic kidney disease, insulin-dependent diabetes mellitus, and chronic back pain with prior lumbar spine surgery who presented for routine follow-up with nephrology and was found to have hypercalcemia with calcium level 11.5. Albumin was normal, vitamin D level was low normal and supplemental vitamin D was stopped by nephrology. PTH level was lower than normal. She had prior evaluation in hematology 2 years ago for leukocytosis and had negative flow cytometry at that time. She again presented with leukocytosis and mild elevation of hemoglobin. Dr. Horvath raised concern that she could have a potential hemologic malignancy with recent hypercalcemia. In addition the patient is an active smoker and screening chest CT within the last week was negative for any nodularity. I advised patient that we will send peripheral blood for repeat CBC and CMP (noted to have resolution of both white blood cell count and hypercalcemia). Weare also sending serum protein electrophoresis, quantitative immunoglobulins, serum immunofixation, and kappa/lambda light chain analysis with beta-2 microglobulin. Given her renal insufficiency, hypercalcemia, and back pain we consented for bone marrow aspiration and biopsy which was performed today. Following this we did receive her labs showing improvement of her prior counts. We will have her follow-up in 3 weeks to review the results. If bone marrow biopsy is unremarkable she may have as needed follow-up only. If plasma cell dyscrasia is noted we will discuss appropriate management at that time. Patientexpressed understanding over this high complexity 45-minute visit to review her history, further complex laboratory testing, bone marrow aspiration and biopsy. I would like to thank you very much for referring this lady back to our practice. I will keep you up-to-date with this patient's progress. Should you have any questions regarding the management of this patient, please do not hesitate to contact me. Sincerely, Isela Downs MD, FACP Medical Oncology (2) Leukocytosis Qualifiers: Leukocytosis type: lymphocytosis Qualified Code(s): D72.820 - Lymphocytosis(symptomatic) Leukocytosis and mild lymphocytosis noted in 2020 with work-up showing unremarkable flow cytometry of peripheral blood. White blood cell differential was normal, therefore at that time leukocytosis was deemed due to viral infection. She was discharged from Hematology for as needed follow-up. White blood cell count was elevated at recent nephrology visit but no open differential was performed at that time. Today she has normal differential with high normal white blood cell count and bone marrow biopsy was performed as noted. (3) COPD (chronic obstructive pulmonary disease) (4) Diabetes mellitus Qualifiers: Chronic kidney disease stage 3 subtype: stage 3a (GFR 45-59) Repeat laboratories today show normal creatinine and creatinine clearance. Continue follow-up as directed with nephrology for diabetic chronic kidney disease. (5) Lumbar degenerative disc disease Prior lumbar spine surgery for degenerative disc disease. Notes reviewed recentworsening of lumbar pain. Given her hypercalcemia and worsening lumbar pain, weare performing a bone marrow aspiration biopsy to exclude plasma cell dyscrasia. - Time with Patient Time Spent with Patient (Follow Up Visit): 45 minutes or more - Repeat referral by nephrology for new diagnosis of hypercalcemia, bone marrow aspiration and biopsy in separate report. Coordination of Care & Counseling Time: Greater than 50% of time spent with patient was for coordination of care (as documented) and [id number] counseling of patient and/or family. Dictated By: Isela Downs MD DD/ 0949 Signed By: <Electronically signed by MD Isela Downs> 04/27/22 [address] [facility] Work Phone: 1(307) 666-910202-17-2023 [facility]* Encounter Date Diagnosis Assessment Notes Treatment Notes Treatment Clinical Notes Apr, Persistent proteinuria (ICD-10 - R80.1) She has subnephrotic Proteinuria likely due to longstanding DM and HTN. She has negative serologies for Hep B &C. She is not vaccinated for Hep B and reported that it is not covered by her insurance. She has unremarkable SPEP, UPEP, urine immunofixation and serum immunofxation. She will not tolerate the higher dose of the lisinopril due to the hypotension. Apr, Chronic kidney disease, stage III (moderate) (ICD-10 - N18.30) She has a CKD due to the DM and HTN. Her baseline serum creatinine is 1.0-1.1 mg/dL. Her renal function has been declining likely due to progression of CKD in setting of uncontrolled diabetes. I have advised her to avoid NSAIDs. I discussed with her the importance of good DM and HTN control to slow down the progression of CKD Apr, Adrenal nodule (ICD-10 - E27.9) She was found to adrenal nodule on CT scan consistent with adenoma. She has a negative work-up for hyperfunctioning adenoma including [place], pheochromocytoma and primary hyperaldosteronism. Apr, Type 2 diabetes mellitus with diabetic chronic kidney disease (ICD-10 - E11.22) I have advised her to continue to follow with Dr. Porter for DM management. Continue lisinopril for renal protection. Apr, Hypertensive chronic kidney disease with stage 1 through stage 4 chronic kidney disease, or unspecified chronic kidney disease (ICD-10 - I12.9) Her blood pressure is controlled. Continue current medications Apr, Hypomagnesemia (ICD-10 - E83.42) She has hypomagnesemia likely due to PPI induced GI losses of magnesium. I have prescribed a low-dose of the amiloride and continue oral magnesium twice daily Apr, Hypercalcemia (ICD-10 - E83.52) She has hypercaclemia with low PTH. She was previously taking Rolaids but stopped taking it. I will stop ergocalciferol. Differential diagnosis for hypercalcemia are malignancy, paraproteinemia, sarcoidosis or lymphoma. I have ordered a work-up to rule out these differential diagnoses. I have referred to the hematology for further work-up as she has a leukocytosis with erythrocytosis. I have advised the patient to avoid calcium supplements. Apr, Erythrocytosis (ICD-10 - D75.1) She has persistent leukocytosis with erythrocytosis and hypercalcemia. I have referred her to oncology again. She was seen by them in the past. I discussed the case with Dr. Downs. She agrees to see the patient for further evaluation. [facility] Other 07-07-2022 Evaluation note* Encounter Date Diagnosis Assessment Notes Treatment Notes Treatment Clinical Notes Sep, Persistent proteinuria (ICD-10 - R80.1) She has subnephrotic Proteinuria likely due to longstanding DM and HTN. She has negative serologies for Hep B &C. She is not vaccinated for Hep B and reported that it is not covered by her insurance. She has unremarkable SPEP, UPEP, urine immunofixation and serum immunofxation. She will not tolerate the higher dose of the lisinopril due to the hypotension. Sep, Chronic kidney disease, stage III (moderate) (ICD-10 - N18.30) She has a CKD due to the DM and HTN. Her baseline serum creatinine is 1.0-1.1 mg/dL. Her renal function has been declining likely due to progression of CKD in setting of uncontrolled diabetes. I have advised her to avoid NSAIDs. I discussed with her the importance of good DM and HTN control to slow down the progression of CKD Sep, Adrenal nodule (ICD-10 - E27.9) She was found to adrenal nodule on CT scan consistent with adenoma. She has a negative work-up for hyperfunctioning adenoma including [place], pheochromocytoma and primary hyperaldosteronism. Sep, Type 2 diabetes mellitus with diabetic chronic kidney disease (ICD-10 - E11.22) I have advised her to continue to follow with Dr. Porter for DM management. Continue lisinopril for renal protection. Sep, Hypertensive chronic kidney disease with stage 1 through stage 4 chronic kidney disease, or unspecified chronic kidney disease (ICD-10 - I12.9) Her blood pressure is controlled. Continue current medications Sep, Vitamin D deficiency (ICD-10 - E55.9) She has hypercaclemia and reported that she is taking Rolaids.. Continue current dose of the ergocalciferol. I have advised her to stop Calcium carbonate Sep, Hypomagnesemia (ICD-10 - E83.42) She has hypomagnesemia likely due to PPI induced GI losses of magnesium. I have advised her to increase oral magnesium twice daily [facility] Other 05-23-2021 Progress note Author Josh Bhatia [facility] July 31, 2020 11:28am Note Date/Time July 31, 2020 11:22 am [facility] at [address] [address] Hem/Onc Follow Up Note - OP Signed Patient: Keya Ley MR#: [id number] : 1970 Acct:[id number] Age/Sex: 49 / F Type: REG RCR Copies to: Kaylie Lang, [employer] CAR [employer]IVER, ANESTHESIOLOGIST ATTENDING Kala Lloyd MD~ Subjective Date/Time of Service: Date of Service: 07/26/2020 Time of Service: 14:20 Chief Complaint: Patient is here for a 3 week follow up with labs for review. HPI: Ms. Ley returns to review labs and plan. She reports overall stable, no specific complaints today. Comorbidities: hypertension, insulin-dependent diabetes, obesity, asthma, COPD, active smoker. ROS Details: All systems reviewed & no additional complaints except as documented PMF - Medical History Medical History: Medical History (Last Reviewed 04/22/20 @ 14:41 by Mel Dowell) Anxiety Arthritis Asthma Back pain Bipolar disorder COPD (chronic obstructive pulmonary disease) DDD (degenerative disc disease) Depression Diabetes mellitus, type 2 GERD (gastroesophageal reflux disease) History of vertigo Hyperlipidemia Kidney disease stage 1 Lumbar adjacent segment disease with spondylolisthesis Lumbosacral disc herniation WICK (nonalcoholic steatohepatitis) OCD (obsessive compulsive disorder) PTSD (post-traumatic stress disorder) Sciatica Seasonal allergies and sinus problem Sleep apnea Spinal stenosis - Surgical History Surgical History: Surgical History (Last Reviewed 04/22/20 @ 14:41 by Mel Dowell) H/O left wrist surgery History of carpal tunnel surgery of right wrist History of cholecystectomy History of esophagogastroduodenoscopy (EGD) w/dilitation History of hysterectomy with bilateral oophorectomy - Family History Family History: Family History (Last Updated 04/22/20 @ 14:42 by Mel Dowell) Father Diabetes Narcissism Kidney failure COPD (chronic obstructive pulmonary disease) HTN (hypertension) Leukemia Mother Rheumatoid arthritis Sciatica Scoliosis Diabetes CHF (congestive heart failure) Psoriatic arthritis Depression Tachycardia Asthma Sister Diabetes Congenital abnormality bone disorder - Social History Smoking Status: Current every day smoker Tobacco Type: cigarettes Substance Use Type: None Social History Comments[place] Medications & Allergies Allergies bee pollen Allergy (Verified 04/22/20 14:39) Anaphylaxis coconut Allergy (Verified 04/22/20 14:39) Rash codeine Allergy (Verified 04/22/20 14:39) Nausea latex Allergy (Verified 04/22/20 14:39) Rash onion Allergy (Verified 04/22/20 14:39) Anaphylaxis acetaminophen [From Tylenol] Adverse Reaction (Verified 04/22/20 14:39) Unknown Reaction Tide Allergy (Uncoded 04/22/20 14:39) Rash Home Medications chlorpromazine 500 mg PO HS 05/15/18 [History Confirmed 07/26/20] desvenlafaxine succinate 100 mg PO BID 05/15/18 [History Confirmed 07/26/20] doxepin 50 mg PO TID 05/15/18 [History Confirmed 07/26/20] gabapentin 800 mg PO QID 05/15/18 [History Confirmed 07/26/20] lisinopril 20 mg PO DAILY 05/15/18 [History Confirmed 07/26/20] metformin 1,000 mg PO BID 05/15/18 [History Confirmed 07/26/20] pantoprazole 40 mg PO BID 05/15/18 [History Confirmed 07/26/20] albuterol sulfate 2 puff INHALATION Q4-6H PRN 05/25/19 [History Confirmed 07/26/20] cetirizine 10 mg PO DAILY 05/25/19 [History Confirmed 07/26/20] divalproex 1,000 mg PO QAM 05/25/19 [History Confirmed 07/26/20] ergocalciferol (vitamin D2) [Vitamin D2] 50,000 unit PO DIRECTED 05/25/19 [History Confirmed 07/26/20] insulin aspart U-100 [Novolog Flexpen U-100 Insulin] 15 - 40 unit SUBCUT TIDWM 05/25/19 [History Confirmed 07/26/20] insulin glargine 35 unit SUBCUT BID 05/25/19 [History Confirmed 07/26/20] multivitamin 1 tab PO QAM 05/25/19 [History Confirmed 07/26/20] ropinirole 0.25 mg PO QHS 05/25/19 [History Confirmed 07/26/20] tiotropium bromide 1 puff INHALATION QAM 05/25/19 [History Confirmed 07/26/20] fluticasone propionate 2 spray INTRANASAL DAILY 07/24/19 [History Confirmed 07/26/20] potassium gluconate 75 mg PO DAILY 07/24/19 [History Confirmed 07/26/20] cholecalciferol (vitamin D3) 10 mcg PO DAILY 04/21/20 [History Confirmed 07/26/20] insulin glargine [Lantus Solostar U-100 Insulin] 100 unit SUBCUT DAILY 04/21/20 [History Confirmed 07/26/20] naproxen 500 mg PO Q12H 04/21/20 [History Confirmed 07/26/20] Objective - Height/Weight Height/Weight: Height 5 ft 5 in Weight 95.39 kg - Pain Back Pain Intensity: 5 Right Flank Pain Intensity: 5 Physical Exam Narrative: GENERAL APPEARANCE: BMI 35, ruber, in no acute distress. SKIN: Inspection of the skin reveals no rashes, ulcerations or petechiae. HEENT:No jaundice of lymphadenopathy. LUNGS: Breathing comfortably on room air. EXTREMITIES: No cyanosis or edema. NEUROLOGIC: Alert and oriented x 3. Results - Labs Labs: Diagram of Most Recent CBC and CMP 07/22/20 10:18 WBC 10.3 Assessment and Plan (1) Leukocytosis Qualifiers: Leukocytosis type: lymphocytosis Qualified Code(s): D72.820 - Lymphocytosis(symptomatic) Leukocytosis and mild lymphocytosis both resolved, differential is normal. The leukocytosis probably was due to viral infection. She is doing well, can be discharged from Hematology, see as needed in the future. - Time with Patient Time Spent with Patient (Follow Up Visit): Less than 20 minutes Coordination of Care & Counseling Time: Greater than 50% of time spent with patient was for coordination of care (as documented) and [id number]-qhom counseling of patient and/or family. Dictated By: Josh Bhatia MD DD/ 19 Signed By: <Electronically signed by Josh Bhatia MD> 07/31/20 [address] [facility] Work Phone: 1(340) 312-258102-16-2021 Consult note Author Josh Bhatia [facility] April 26, 2020 3:37pm Note Date/Time April 22, 2020 3:36pm [facility] [place] [address] Hem/Onc Consult Note - OP Signed with Addenda Patient: Keya Ley MR#: [id number] : 1970 Acct:[id number] Age/Sex: 49 / F Type: REG R Copies to: Kaylie Lang APRN, ANESTHESIOLOGIST ATTENDING Kala Lloyd MD~ ADDENDUM1 Flow cytometry showed polyclonal B-cell, 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 To be prudent, will see sergeack in 3 months with a repeat CBC/differential. Josh Bhatia MD Addendum Dictated By: Josh Bhatia MD Addendum Signed By: 04/26/201536 Addendum Cosigned By: DD/ TD/TT: 04/26/20 HPI Date/Time of Service: Date of Service: 04/22/2020 Time of Service: 15:34 Referring Provider/PCP: Referring Provider: Kaylie Lang APRN, GAS SPECIALIST-C PCP: Kala Lloyd MD - History of Present Illness Reason for Consultation: Leukocytosis Chief Complaint: No other concerns voiced today. HPI: Dear Ms. Lang, I have seen you patient in consultation, and I would like to thank you for the referral. As you know, Ms. Ley is a 49-year-old lady, history of hypertension, insulin-dependent diabetes, obesity, asthma, COPD, active smoker, who was referred for evaluation of lymphocytosis. Her last set of CBC was in 08/2019, it was normal, with a normal differential. In January ALT was 120, her white count was elevated, 13.7, with mild absolute lymphocytosis, 46,000. Repeat CBC in February 2020, as well as March 2020 showed similar pattern. There was no anemia, or thrombocytopenia. Of note, shedoes have mild erythrocytosis. Patient reports that she had a runny nose about 3 weeks ago, treated with 2 courses of the antibiotic. It is getting better. She has been tired since the summertime, she felt it was due to her antidepressant. She denied fevers, chills, or lymphadenopathy. She denied active infection. [facility] - Medical History Medical History: Medical History (Last Reviewed 04/22/20 @ 14:41 by Mel Dowell) Anxiety Arthritis Asthma Back pain Bipolar disorder COPD (chronic obstructive pulmonary disease) DDD (degenerative disc disease) Depression Diabetes mellitus, type 2 GERD (gastroesophageal reflux disease) History of vertigo Hyperlipidemia Kidney disease stage 1 Lumbar adjacent segment disease with spondylolisthesis Lumbosacral disc herniation WICK (nonalcoholic steatohepatitis) OCD (obsessive compulsive disorder) PTSD (post-traumatic stress disorder) Sciatica Seasonal allergies and sinus problem Sleep apnea Spinal stenosis - Surgical History Surgical History: Surgical History (Last Reviewed 04/22/20 @ 14:41 by Mel Dowell) H/O left wrist surgery History of carpal tunnel surgery of right wrist History of cholecystectomy History of esophagogastroduodenoscopy (EGD) w/dilitation History of hysterectomy with bilateral oophorectomy - Family History Family History: Family History (Last Updated 04/22/20 @ 14:42 by Mel Dowell) Father Diabetes Narcissism Kidney failure COPD (chronic obstructive pulmonary disease) HTN (hypertension) Leukemia Mother Rheumatoid arthritis Sciatica Scoliosis Diabetes CHF (congestive heart failure) Psoriatic arthritis Depression Tachycardia Asthma Sister Diabetes Congenital abnormality bone disorder - Social History Smoking Status: Current every day smoker Tobacco Type: cigarettes Substance Use Type: None Social [place] Comments[place] Home Medications & Allergies Allergies bee pollen Allergy (Verified 04/22/20 14:39) Anaphylaxis coconut Allergy (Verified 04/22/20 14:39) Rash codeine Allergy (Verified 04/22/20 14:39) Nausea latex Allergy (Verified 04/22/20 14:39) Rash onion Allergy (Verified 04/22/20 14:39) Anaphylaxis acetaminophen [From Tylenol] Adverse Reaction (Verified 04/22/20 14:39) Unknown Reaction Tide Allergy (Uncoded 04/22/20 14:39) Rash Home Medications chlorpromazine 500 mg PO HS 05/15/18 [History Confirmed 04/22/20] desvenlafaxine succinate 100 mg PO DAILY 05/15/18 [History Confirmed 04/22/20] doxepin 50 mg PO TID 05/15/18 [History Confirmed 04/22/20] gabapentin 800 mg PO QID 05/15/18 [History Confirmed 04/22/20] lisinopril 20 mg PO DAILY 05/15/18 [History Confirmed 04/22/20] metformin 1,000 mg PO BID 05/15/18 [History Confirmed 04/22/20] pantoprazole 40 mg PO BID 05/15/18 [History Confirmed 04/22/20] albuterol sulfate 2 puff INHALATION Q4-6H PRN 05/25/19 [History Confirmed 04/22/20] cetirizine 10 mg PO DAILY 05/25/19 [History Confirmed 04/22/20] divalproex 1,000 mg PO QAM 05/25/19 [History Confirmed 04/22/20] ergocalciferol (vitamin D2) [Vitamin D2] 50,000 unit PO QWEEK 05/25/19 [History Confirmed 04/21/20] insulin aspart U-100 [Novolog Flexpen U-100 Insulin] 15 - 40 unit SUBCUT TIDWM 05/25/19 [History Confirmed 04/22/20] insulin glargine 35 unit SUBCUT BID 05/25/19 [History Confirmed 04/22/20] multivitamin 1 tab PO QAM 05/25/19 [History Confirmed 04/22/20] ropinirole 0.25 mg PO QHS 05/25/19 [History Confirmed 04/22/20] tiotropium bromide 1 puff INHALATION QAM 05/25/19 [History Confirmed 04/22/20] fluticasone propionate 2 spray INTRANASAL DAILY 07/24/19 [History Confirmed 04/22/20] potassium gluconate 75 mg PO DAILY 07/24/19 [History Confirmed 04/22/20] cholecalciferol (vitamin D3) 10 mcg PO DAILY 04/21/20 [History Confirmed 04/22/20] insulin glargine [Lantus Solostar U-100 Insulin] 100 unit SUBCUT DAILY 04/21/20 [History Confirmed 04/22/20] naproxen 500 mg PO Q12H 04/21/20 [History Confirmed 04/22/20] Subjective Data Subjective/ROS - Narrative: CONSTITUTIONAL: No weight loss, fever, chills, positive for chronic fatigue. HEENT: Eyes: No visual loss, blurred vision, double vision or yellow sclerae. Ears, Nose, Throat: No hearing loss, epistaxis. SKIN: No rash or itching. CARDIOVASCULAR: No chest pain, chest pressure or chest discomfort. No palpitations or edema. RESPIRATORY: No shortness of breath, cough or hemoptysis. GASTROINTESTINAL: No dysphagia, nausea, vomiting or diarrhea. No abdominal pain,melena, hematochezia. GENITOURINARY: No dysuria, urinary frequency or urgency. NEUROLOGICAL: No headache, dizziness, syncope, numbness or tingling in the extremities. MUSCULOSKELETAL: Chronic low back pain. HEMATOLOGIC: No bleeding or bruising. LYMPHATICS: No enlarged nodes. Objective - Height/Weight Height/Weight: Height 5 ft 5 in Weight 96.615 kg - Vital Signs Vital Signs: 04/22/20 14:50 Temperature 97.7 F Pulse Rate [Left Brachial] 94 H Respiratory Rate 20 Blood Pressure [Left Arm] 125/79 02 Sat by Pulse Oximetry 96 - Pain Back Pain Intensity: 6 - Emotional Needs Assessment Emotional Needs Assessment: Emotional Needs Identified? No Physical Exam Narrative: GENERAL APPEARANCE: BMI 35.4, ruber, in no acute distress. SKIN: Inspection of the skin reveals no rashes, ulcerations or petechiae. HEENT: The sclerae were anicteric and conjunctivae were pink and moist. The oralmucosa is moist and clear. No oral thrush. NECK: Supple and symmetric. There was no mass felt. LUNGS: Normal breath sounds on auscultation without rales, rhonchi, or crackles. CARDIOVASCULAR: S1 and S2, regular rate and rhythm, no murmurs, gallops, rubs. ABDOMEN: Soft, nontender, bowel sounds normal. No hepatosplenomegaly. No mass palpated. LYMPH NODES: No lymphadenopathy was appreciated in the neck, axillae or groin. MUSCULOSKELETAL: There was no tenderness or effusions noted. Muscle strength andtone were normal. EXTREMITIES: No cyanosis or edema. NEUROLOGIC: Alert and oriented x 3. Normal affect. Gait was normal. Results - Labs Outside Labs: CBC, 03/29/2020 WBC 13.1, Hgb 15.3, MCV 92.6, platelet 272, neutrophils 55.9%, lymphocytes 37%, absolute lymphocyte 4847 CBC 02/22/2020 WBC 12.6, Hgb 16.5, MCV 88.6, platelets 287, neutrophils 58.7%, lymphocytes 34.4%, absolute lymphocyte 4334 CBC, 02/01/2020 WBC 13.7, Hgb 15.7, platelet 260, neutrophils 59%, lymphocytes 33.6%, [id number] Assessment and Plan (1) Leukocytosis Qualifiers: Leukocytosis type: lymphocytosis Qualified Code(s): D72.820 - Lymphocytosis(symptomatic) Leukocytosis, with mild lymphocytosis, clinically well, no B symptoms. Exam benign, no lymphadenopathy or splenomegaly. She does not appear to have active infection, some sinus issues 3 weeks ago, now cleared. -We will repeat CBC differential today, and send flow cytometry from peripheral blood. She is to call next week to review her lab results, if normal, will return to your practice for further observation. -In case of monoclonal lymphocytosis, plan to see her a year to review CBC. - Time with Patient Total Time Spent with Patient (Consult): 60 mins or more Coordination of Care & Counseling Time: Greater than 50% of time spent with patient was for coordination of care (as documented) and [id number] counseling of patient and/or family. Dictated By: Josh Bhatia MD DD/ 1534 Signed By: <Electronically signed by Josh Bhatia MD> 04/22/20 1544 [facility] Work Phone: Evaluation + Plan note No data available for this section [facility] Diagnosis Onset Date Resolution Status Hypercalcemia acute COPD (chronic obstructive pulmonary disease) chronic Diabetes mellitus chronic Leukocytosis chronic Lumbar degenerative disc disease chronic [facility] Work Phone: Evaluation note* Diagnosis Onset Date Resolution Status COPD (chronic obstructive pulmonary disease) chronic Diabetes mellitus chronic Lumbar degenerative disc disease chronic Hypercalcemia resolved Leukocytosis resolved [facility] Work Phone: Evaluation note* Diagnosis Lumbar spondylosis- Primary Lumbosacral spondylosis without myelopathy Chest pain, unspecified type- Primary Primary hypertension Unspecified essential hypertension Familial hypercholesterolemia Abnormal EKG Nonspecific abnormal electrocardiogram (ECG) (EKG) Lumbar spondylosis Lumbosacral spondylosis without myelopathy [facility] Diagnosis Lumbar spondylosis- Primary Lumbosacral spondylosis without myelopathy Familial hypercholesterolemia- Primary [facility] Diagnosis Metatarsalgia, left foot- Primary Diabetes 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 polyneuropathy, with long-term current use of insulin ([facility]) Onychomycosis Dermatophytosis of nail Toe pain, right Pain in soft tissues of limb Toe pain, left Pain in soft tissues of limb documented in this encounter [facility] Author Peyton Hoskins [facility] July 12, 2022 1:05pm Note Date/Time July 12, 2022 1:05pm [facility] [address] [place] [address] Gastroenterology H&P Signed Patient: Keya Ley MR#: [id number] : 1970 Acct:[id number] Age/Sex: 51 / F Adm Date: 3 Loc: Room: Type: [facility] Attending Dr: Peyton Hoskins MD Copies to: MD Kaylie Tarango, FLAG CAR DRIVER, ANESTHESIOLOGIST ATTENDING~ Date of Service: 07/12/2022 HISTORY & PHYSICAL: Patient's history with special attention to the cardiovascular, pulmonary systems and the current problem was reviewed with the patient immediately prior to the procedure. Present medications and doses reviewed in the EMR. Allergies and pertinent laboratory tests were also reviewedat this time in the EMR. The physical examination, as below, was then performed. Indication, assessment and HPI: 51-year-old female here for EGD for evaluation of dysphagia and GERD PHYSICAL EXAMINATION Mouth and Pharynx : Moist mucus membranes, normal dentition Cardiac: Regular rate, regular rhythm Pulmonary: Clear to auscultation bilaterally, no wheezing Neurological: Alert and oriented x3, no focal deficits noted Abdomen: Abdomen soft, non-tender REVIEW OF SYSTEMS Constitutional: Denies malaise, fevers Cardiovascular: Denies chest pain, palpitations Respiratory: Denies shortness of breath, wheezing Gastrointestinal: Per HPI Genitourinary: Denies dysuria, polyuria Musculoskeletal: Denies joint swelling, joint stiffness Neurological: Denies numbness, tingling Integumentary: Denies rashes, skin lesions Endocrine: Denies fatigue, weight loss Written informed consent obtained from the patient. Risks (including but not limited to perforation, infection, bloating, bleeding, need for emergent surgeryand loss of life), benefits and alternatives explained and questions answered. The patient verbalized understanding. Based on history patient is an appropriate candidate for the procedure. Peyton Hoskins M.D. Documented By: Peyton Hoskins MD 07/12/22 1305 Signed By: <Electronically signed by Peyton Hoskins MD> 07/12/22 1305 [facility] Work Phone: Hisoqpv general Narrative - Reported* Type Description Date Medical History DM Medical History Chronic Back pain Medical History HTN Medical History Hypercholesterolemia Medical History Polycystic Ovarian Disease Medical History Chronic bronchitis Medical History Mood disorder Medical History Anxiety Medical History Right wrist jammed Medical History PTSD (post-traumatic stress diso rder) Medical History Dissociative disorder or reactio n, unspecified Medical History LIVER LESIONS Surgical History Procedure:ORIF left wrist 1997 Surgical History Reconstructive left hand Surgical History Abdominal Laparoscopy Surgical History facet joint injection, low back 05/28/2014 Surgical History complete hysterectomy 07/11/2015 Surgical History hysterectomy Surgical History CHOLECYSTOMY Surgical History liver biopsy 01/2016 Surgical History carpal tunnel release right Surgical History Laparoscopic cholecystectomy Surgical History RT CTR Dr. Casillas 01/07/19 Surgical History XLIF-Doctor Pamela Surgical History low back surgery 08/27/2019 Surgical History COLONOSCOPY AND ESOPHAGUS STRET MERCEDES 12/02/2020 Hospitalization History DM 2013 Hospitalization History See past surgical hx SiOx Other Hisdcti general Narrative - Reported* Type Description Date Medical History DM Medical History Chronic Back pain Medical History HTN Medical History Hypercholesterolemia Medical History Polycystic Ovarian Disease Medical History Chronic bronchitis Medical History Mood disorder Medical History Anxiety Medical History Right wrist jammed Medical History PTSD (post-traumatic stress diso rder) Medical History Dissociative disorder or reactio n, unspecified Medical History LIVER LESIONS Surgical History Procedure:ORIF left wrist 1997 Surgical History Reconstructive left hand Surgical History Abdominal Laparoscopy Surgical History facet joint injection, low back 05/28/2014 Surgical History complete hysterectomy 07/11/2015 Surgical History hysterectomy Surgical History CHOLECYSTOMY Surgical History liver biopsy 01/2016 Surgical History carpal tunnel release right Surgical History Laparoscopic cholecystectomy Surgical History RT CTR Dr. Casillas 01/07/19 Surgical History XLIF-Doctor Elskens Surgical History low back surgery 08/27/2019 Surgical History COLONOSCOPY AND ESOPHAGUS STRET MERCEDES 12/02/2020 Surgical History LEFT FOOT SURGERY FOR THE FIRST 3 TOES 02/07/2022 Hospitalization History DM 2013 Hospitalization History See past surgical hx SiOx Other history general Narrative - Reported* Type Description Date Medical History DM Medical History Chronic Back pain Medical History HTN Medical History Polycystic Ovarian Disease Medical History Chronic bronchitis Medical History Hypercholesterolemia Medical History Mood disorder Medical History Anxiety Medical History Right wrist jammed Medical History PTSD (post-traumatic stress diso rder) Medical History Dissociative disorder or reactio n, unspecified Medical History LIVER LESIONS Surgical History Procedure:ORIF left wrist 1997 Surgical History Reconstructive left hand Surgical History Abdominal Laparoscopy Surgical History facet joint injection, low back 05/28/2014 Surgical History complete hysterectomy 07/11/2015 Surgical History hysterectomy Surgical History CHOLECYSTOMY Surgical History liver biopsy 01/2016 Surgical History carpal tunnel release right Surgical History Laparoscopic cholecystectomy Surgical History RT CTR Dr. Casillas 01/07/19 Surgical History XLIF-Doctor Pamela Surgical History low back surgery 08/27/2019 Surgical History COLONOSCOPY AND ESOPHAGUS STRET MERCEDES 12/02/2020 Surgical History LEFT FOOT SURGERY FOR THE FIRST 3 TOES 02/07/2022 Hospitalization History DM 2013 Hospitalization History See past surgical hx SiOx Other Hospital Discharge instructions No data available for this section [facility] Additional Instructions DISCHARGE INSTRUCTIONS FOR UPPER ENDOSCOPY WHAT TO EXPECT: - You may feel full, gassy or cramping after your procedure. In some cases, this may be from a few hours to a day. Walking may help relieve the discomfort. - Your throat may feel sore today from the scope that the doctor passed through your throat to visualize your stomach. Take a throat lozenge or suck on ice to ease the discomfort. - You may notice some streaks of blood in your sputum if the doctor has taken a biopsy. - You should begin to recover from anesthesia within 1 hour of the procedure, however may feel groggy for the next 24 hours. DO's AND DON'Ts: - Call your doctor right away if you have a hard abdomen, severe pain, vomiting or if you cough up large amounts of blood. - Call your doctor if you develop any rashes, hives or difficulty breathing. - If you take 81 mg aspirin for your heart it is safe to resume this medication. - If you take other blood thinner medications your doctor will instruct you when these can safely be resumed. - Do NOT drive for 24 hours. - Do NOT operate machinery such as power tools, lawn mowers, snow blowers, sewing machines, etc. for 24 hours. - Avoid alcoholic beverages and drugs for allergies, nerves, or sleep. - Do NOT stay alone. Do NOT leave your child unattended. - Do NOT make important personal or business decisions or sign any legal documents. - Eat solid foods and drink liquids in smaller amounts than usual until normal appetite returns. If you should experience an upset stomach, liquids high in sugar content (soda, Jonathan-Aid, non-acid juices) are recommended. - Do NOT smoke. - Do take it easy today. You need not stay in bed, but avoid strenuous activities such as jogging or working out. FOLLOW UP & RECOMMENDATIONS: -Continue Protonix -Notify the doctor if you have any problems. -Follow up with PCP. -Office number [phone]. [facility] Work Phone: InstructionsNot on filedocumented in this encounter [employer] SystemInstructionsNot on filedocumented in this encounter [facility] No data available for this section [facility] for visit NarrativePatient here at the request of Dr. Lang for evaluation & treatment of dysphagia.SiOx Other Summary Purpose Family History No Family History Records Found Relationship Condition Age at Onset Recorded Date/T rebeka father Diabetes mellitus Unknown Narcissism Unknown Renal failure Unknown Chronic obstructive pulmonary disease Unk nown Hypertension Unknown Leukemia Unknown Not Specified Rheumatoid arthritis Unknown Sciatica Unknown Scoliosis Unknown Diabetes mellitus Unknown Congestive heart failure Unknown Psoriatic arthritis Unknown Depression Unknown Tachycardia Unknown Asthma Unknown sister Diabetes mellitus Unknown Congenital abnormality Unknown Advance Directives No Advanced Directives Records Found Advance Directive Response Recorded Date/ Time Advance Directives No April 2:13pm Advance Directive Response Recorded Date/ Time Advance Directives No April 3:13pm Chief Complaint and Reason for Visit Chief Complaint leukocytosis Reason for Visit Hypercalcemia COPD (chronic obstructive pulmonary disease) Diabetes mellitus Leukocytosis Lumbar degenerative disc disease Chief Complaint leukocytosis Dysphagia Reason for Visit COPD (chronic obstru ctive pulmonary disease) Diabetes mellitus Lumbar degenerative disc disease Hypercalcemia Leukocytosis Chief Complaint leukocytosis BH Dysphagia E83.52 Reason for Visit COPD (chronic obstru ctive pulmonary disease) Diabetes mellitus Lumbar degenerative disc disease Hypercalcemia Leukocytosis Chief Complaint leukocytosis BH Dysphagia E83.52 R63.4 K29.70 Fatty Liver Reason for Visit COPD (chronic obstru ctive pulmonary disease) Diabetes mellitus Lumbar degenerative disc disease Hypercalcemia Leukocytosis Reason for Referral Specialty Diagnoses / Procedures Referred By Randall t Referred To Contact Diagnoses Chest pain, unspecified type Abnormal EKG Procedures Nuc stress Lexiscan/Exercise Dennis Foster MD [address] [place] [address] [facility] [address] [place] [address] Phone: [phone] Referral ID Status Reason Start Date Expiration Date V isits Requested Visits Authorized [id number] Authorized 03/15/2023 03/14/2024 5 5 Additional Source Comments REASON FOR VISIT (unrecogniz ed section and content) Reason Comments Follow-up EST PT F/U 1 YR LABS AT [facility] SCHED W/PT L/S GRU Reason Onset Date Comments Direct LDL 03/28/2023 Reason Comments DM Foot Care Patient Care team informatio n (unrecognized section and content) Team Status: Active Member Role Status Dates Kaylie Lang APRN GAS SPECIALIST-C Primary Care Provider Active Team Status: Inactive Member Role Status Dates Kaylie Lang APRN GAS SPECIALIST-C Primary Care Provider Active Peyton Hoskins MD Attending Provider Active Team Status: Active Member Role Status Dates Kala Lloyd MD Primary Care Provider Active Kaylie Lang APRN GAS SPECIALIST-C Referring Provider Active Isela Downs MD Attending Provider Active Team Status: Active Member Role Status Dates Kaylie Lang APRN GAS SPECIALIST-C Primary Care Provider Active Herrera Donahue MD Attending Provider Active Team Status: Inactive Member Role Status Dates Kaylie Lang APRN GAS SPECIALIST-C Primary Care Provider Active Nir Horvath MD Attending Provider Active Shank Burnisher Relationship Specialty Start Date End Date Kaylie Lang APRN-ANESTHESIOLOGIST ATTENDING [address] [place], [place] [id number] PCP - General Nurse Practitioner 11/20/18 Shank Burnisher Relationship Specialty Start Date End Date Kaylie Lang APRN-ANESTHESIOLOGIST ATTENDING [address] [place] [address] PCP - General Nurse Practitioner 11/20/18 Shank Burnisher Relationship Specialty Start Date End Date Kaylie Lang, FLAG CAR DRIVER-ANESTHESIOLOGIST ATTENDING [address] [facility] [place] [address] PCP - General Nurse Practitioner 11/20/18 Shank Burnisher Relationship Specialty Start Date End Date Kala Lloyd MD [address] [facility] [place], [place] [id number] PCP - General Family Medicine 08/07/22 Kaylie Lang NP [address] [facility] [place], [place] [id number] Nurse Practitioner Family Medicine 08/07/22 INFORMATION SOURCE (unrecogn ized section and content) DATE CREATED AUTHOR 03/13/2022 [facility] dical Specialist DATE CREATED AUTHOR AUTHOR'S ORGANIZ ATION 03/22/2022 [facility] DATE CREATED AUTHOR AUTHOR'S ORGANIZ ATION 07/22/2022 [facility] DATE CREATED AUTHOR AUTHOR'S ORGANIZ ATION 09/07/2022 [facility] DATE CREATED AUTHOR AUTHOR'S ORGANIZ ATION 04/14/2023 [facility] DATE CREATED AUTHOR AUTHOR'S ORGANIZ ATION 04/16/2023 [facility] dical Specialists EPIC Goals (unrecognized section and content) Goals may be documented in a n alternate section FOR RECORDS PERTAINING TO PATIENTS WHO ARE OR HAVE BEEN ENROLLED IN A CHEMICAL DEPENDENCY/SUBSTANCEABUSE PROGRAM, SOME INFORMATION MAY BE OMITTED. This clinical summary was aggregated from multiple sources. Caution should be exercised in using it in the provision of clinical care. This summary normalizes information from multiple sources, and as a consequence, information in this document may materially change the coding, format and clinical context of patient data. In addition, data may be omitted in some cases. CLINICAL DECISIONS SHOULD BE BASED ON THE PRIMARY CLINICAL RECORDS. Data [facility]. provides no warranty or guarantee of the accuracy or completeness of information in this document.
[2023-04-16 10:46] LABS: Hemoglobin 14.9 g/dL (12.0-16.0); Mean Corpuscular HGB Conc 33.9 g/dL (29.9-35.2); Mean Corpuscular Volume 88.7 fL (81.0-99.0); Mean Platelet Volume 11.8 fL (9.5-13.5); Platelet Count 202 10^3/uL (150-450); Red Blood Count 4.96 10^6/uL (4.20-5.40); White Blood Count 11.2 10^3/uL (4.0-11.0)
[2023-04-16 10:47] LABS: Bilirubin Urine NEGATIVE (NEGATIVE); Blood Urine SMALL (NEGATIVE); Clarity Urine CLEAR (CLEAR); Color Urine YELLOW (YELLOW); Glucose Urine UA >=1000 mg/dL (NEGATIVE); Ketones Urine NEGATIVE (NEGATIVE); Leukocyte Esterase Urine NEGATIVE (NEGATIVE); Nitrite Urine NEGATIVE (NEGATIVE); Protein Urine >=300 mg/dL (NEG/TRACE); Specific Gravity Urine >=1.030 (1.005-1.025); Urobilinogen Urine 0.2 EU/dL (0.2-1.0); pH Urine 5.5 (5.0-9.0)
[2023-04-16 10:48] LABS: Creatinine Urine Random 135.89 mg/dL (20.00-300.00); Protein Creatinine Ratio Urine 3.77; Total Protein Urine Random 512.7 mg/dL (<=11.9)
[2023-04-16 11:06] LABS: Bacteria Urine TRACE #/HPF (NONE SEEN); Crystals Seen? None Seen #/HPF (None Seen); Mucus Urine NONE SEEN (NONE SEEN); Squamous Epithelial Cell Urine FEW #/LPF (NONE/RARE); WBC Urine 0-2 #/HPF (NONE SEEN)
[2023-04-16 11:07] LABS: Cast Seen? SEEN #/LPF (NONE SEEN); Hyaline Casts Urine FEW
[2023-04-16 11:56] LABS: Albumin Level 2.9 g/dL (3.4-5.0); Anion Gap 16.5; BUN Creatinine Ratio 15.8; Calcium 9.7 mg/dL (8.5-10.1); Carbon Dioxide 25.5 mmol/L (21.0-32.0); Chloride 99 mmol/L (98-107); Estimated GFR (African America 57 (>=60); Estimated GFR (Non-African Ame 47 (>=60); Glucose 355 mg/dL (74-106); Magnesium 1.2 mg/dL (1.8-2.4); Sodium 137 mmol/L (136-145)
[2023-04-17 12:09] LABS: PTH, Intact 21 pg/mL (15-65)
== END 2023-04-16 10:05 | disposition home or self-care (01) ==
LOC: LAB 10:05
PROVIDERS: PCP Nurse Practitioner Family; Visit Provider Internal Medicine
DX: E11.22 Type 2 diabetes mellitus with diabetic chronic kidney disease (principal); N18.30 Chronic kidney disease, stage 3 unspecified; R80.1 Persistent proteinuria, unspecified; E27.9 Disorder of adrenal gland, unspecified; I12.9 Hypertensive chronic kidney disease with stage 1 through stage 4 chronic kidney disease, or unspecified chronic kidney disease; E83.42 Hypomagnesemia; E83.52 Hypercalcemia
CPT/HCPCS: 36415; 80069; 81001; 82306; 82570; 83735; 83970; 84156; 84550; 85027

== ENCOUNTER 2023-07-02 09:46 | Outpatient (OUT) | payer MEDICAID, SELFPAY ==
--- OUTSIDE RECORDS SUMMARY | 2023-07-02 10:01 | XMS_ITS | CCD ---
Author Organization [facility] Care Team Providers Care Lodging Manager Name Role Phone Danis, Nir Unavailable KAYLIE CHAVEZ Primary Care Physician Rosina Salter Unavailable Unavailable KALA LLOYD Primary Care Physician Eliazar Pires Attending Unavailable Eliazar Pires Admitting Unavailable Eliazar Pires Attending Unavailable Eliazar Pires Admitting Unavailable Eliazar Pires Admitting Unavailable Eliazar Pires Attending Unavailable MD Kala Lloyd Primary Care Provider TAMMIE Chavez Referring Provider [phone] MD Isela Downs Attending Provider Peyton Hoskins Unavailable MD [facility] Primary Care Provider [phone] TAMMIE Chavez Referring Provider [phone] MD Isela Downs Attending Provider TAMMIE Chavez Primary Care Provider [phone] MD Peyton Hoskins Attending Provider [phone] DANIS, NIR Admitting Unavailable DANISCOLLINUL Attending Unavailable KAYLIE CHAVEZ Primary Care Unavailable DANIS, NIR Consulting Unavailable MISC, DR SIMMS Admitting Unavailable MISC, DR SIMMS Attending Unavailable DR KALA LLOYD Referring Unavailable KAYLIE CHAVEZ Primary Care Unavailable MISC, DR SIMMS Consulting Unavailable DANIS, NIR Admitting Unavailable DANIS, NIR Attending Unavailable KAYLIE CHAVEZ Primary Care Unavailable DANIS, NIR Consulting Unavailable DANIS, NIR Admitting Unavailable DANIS, NIR Attending Unavailable CHAVEZ, KAYLIE Primary Care Unavailable DANIS, NIR Consulting Unavailable DANIS, NIR Admitting Unavailable DANIS, NIR Attending Unavailable CHAVEZ, KAYLIE Primary Care Unavailable DANIS, NIR Consulting Unavailable DANIS, NIR Admitting Unavailable DANIS, NIR Attending Unavailable CHAVEZ, KAYLIE Primary Care Unavailable DANIS, NIR Consulting Unavailable Chavez, BATTERY WRECKER OPERATOR Kaylie R Primary Care Provider [phone] MD Herrera Donahue Attending Provider MD Nir Horvath Attending Provider Chavez BATTERY WRECKER OPERATOR-SHEARER HELPER, Kaylie R Primary Care Provider Kala Lloyd MD Primary Care Provider [phone] Scott ISBELL, Kaylie R Unavailable BRANDON LAUGHLIN Attending Unavailable LAVERNE PORTER Attending Unavailable KALA LLOYD Referring Unavailable KALA LLOYD Attending Unavailable ELIAZAR PIRES Attending Unavailable LINDY VALENTINO Attending Unavailabl e CHAVEZ, KAYLIE R Referring Unavailable KAMPFER, BRANDON Attending Unavailable QIAN, BRANDON Referring Unavailable ELIAZAR PIRES Attending Unavailable LINDY VALENTINO Attending UnavailELIAZAR Bennett Attending Unavailable CHAVEZ, KAYLIE R Attending Unavailable LINDY VALENTINO Attending Unavailabl beti Chavez, BATTERY WRECKER OPERATOR Kaylie R Primary Care Provider MD Fermín Donahue Attending Provider Chavez, Kaylie R Primary Care Unavailable Asaad, Imad Admitting Unavailable Asaad, Imad Attending Unavailable Chavez, Kaylie R Primary Care Unavailable Asaad, Imad Admitting Unavailable Asaad, Imad Attending Unavailable Danis, Nir Admitting Unavailable Danis, Inr Attending Unavailable Chavez, Kaylie R Primary Care Unavailable Asaad, Imad Admitting Unavailable Chavez, Kaylie R Primary Care Unavailable Asaad, Imad Attending Unavailable Chavez, Kaylie R Primary Care Unavailable Asaad, Imad Admitting Unavailable Asaad, Imad Attending Unavailable REYMUNDO GIRON Attending Unavailable REYMUNDO GIRON Referring Unavailable CHAVEZ, KAYLIE R Primary Care Unavailable REYMUNDO GIRON E Admitting Unavailable GIRONREYMUNDO SAUCEDO Attending Unavailable GIRON, REYMUNDO Bang Referring Unavailable CHAVEZ, KAYLIE R Primary Care Unavailable RD BARBOUR Attending Unavailable CHAVEZ, KAYLIE R Primary Care Unavailable VERLIVE DAVIS Attending Unavailable CHAVEZ, KAYLIE R Referring Unavailable CHAVEZ, KAYLIE R Primary Care Unavailable CHAVEZ, KAYLIE R Primary Care Unavailable JULITA PETERSEN Attending Unavaila ble JONATHON, REYMUNDO Bang Admitting Unavailable GIRON, REYMUNDO Bang Attending Unavailable CHAVEZ, KAYLIE R Referring Unavailable CHAVEZ, KAYLIE R Primary Care Unavailable CRISTIAN, DENNIS Boogie Attending Unavailable CHAVEZ, KAYLIE R Referring Unavailable CHAVEZ, KAYLIE R Primary Care Unavailable GIRON, REYMUNDO E Admitting Unavailable GIRON, REYMUNDO Bang Attending Unavailable CHAVEZ, KAYLIE R Referring Unavailable CHAVEZ, KAYLIE R Primary Care Unavailable GIRON, REYMUNDO Bang Attending Unavailable GIRON, REYMUNDO E Referring Unavailable CHAVEZ, KAYLIE R Primary Care Unavailable CHAVEZ, KAYLIE R Referring Unavailable CHAVEZ, KAYLIE R Primary Care Unavailable CRISTIAN, DENNIS Boogie Attending Unavailable CRISTIAN, DENNIS Boogie Referring Unavailable CHAVEZ, KAYLIE R Primary Care Unavailable CRISTIAN, DENNIS Boogie Attending Unavailable CRISTIAN, DENNIS Boogie Referring Unavailable CHAVEZ, KAYLIE R Primary Care Unavailable CRISTIAN, DENNIS Boogie Attending Unavailable CRISTIAN, DENNIS Boogie Referring Unavailable CHAVEZ, KAYLIE R Primary Care Unavailable CRISTIAN, DENNIS Boogie Attending Unavailable CRISTIAN, DENNIS D Referring Unavailable CHAVEZ, KAYLIE R Primary Care Unavailable LIVE MONK Attending Unavailable CHAVEZ, KAYLIE R Referring Unavailable CHAVEZ, KAYLIE R Primary Care Unavailable CRISTIAN, DENNIS Boogie Attending Unavailable CRISTIAN, DENNIS Keagan Referring Unavailable CHAVEZ, KAYLIE R Primary Care Unavailable Allergies Allergy Classification Reported Allergen(s) Allergy Type Date of Onset Reaction(s) Facility (11 sources) Coconut extract Drug Allergy 05-19-[address], [facility] (20 sources) Codeine; Translations: [CODEINE] Drug Allergy 01-01-20 [facility] (18 sources) dapagliflozin; Translations: [DAPAGLIFLOZIN] Drug Allergy 01-01-20 [facility] (18 sources) Latex; Translations: [LATEX] Propensity to adverse reactions 01-08-[address] [facility] (5 sources) onions Propensity to adverse reactions Unknown [facility] Other (6 sources) Acetaminophen Drug Allergy 05-19-19 23 Unknown Reaction [facility] (4 sources) Bee pollen Allergy to substance 05-19-19 Anaphylaxis [facility] (6 sources) Onion extract Drug Allergy 05-19-19 Anaphylaxis [facility] (6 sources) Tide Allergy to substance 05-19-19 23 Rash [facility] (1 source) Coconut extract Drug Allergy 06-17-19 14 [facility] (1 source) Codeine Drug Allergy 02-08-20 13 [facility] (1 source) Latex Drug allergy (disorder) 06-17-19 14 [facility] (1 source) Misc-Food; Translations: [Misc-Food] Food allergy (disorder) 06-17-19 14 [facility] (1 source) Misc-Drug Drug allergy (disorder) 07-05-19 16 [facility] (2 sources) dapagliflozin Drug Allergy 07-24-19 23 Rash [facility] (2 sources) Latex Allergy to substance 07-24-19 23 Unknown [facility] (2 sources) Coconut Flavor Allergy to substance 07-24-19 23 Unknown [facility] Work Phone: Medications Current Medications Medication Drug Class(es) Dates Sig (Normalized) Sig (Original) [id number] 200 actuat albuterol 0.09 mg/actuat metered dose inhaler (20 sources) beta2-Adrenergic Agonist Start: 04-25-2023 take 2 puff(s) by inhalation every six hours as needed Albuterol Sulfate Active 2 PUFF INHALATION Every 6 hours April 25, 2023 1:00am [employer] puffs as needed Inhalation every 6 hrs; Note: Source Status: Taking; Provider: Danis Loyola ( ) Start: 07-17-2021 take 2 puff(s) by in halation every four hours albuterol HFA 90 mcg/act [...] as needed Inhalation every 6 hrs Active aMILoride hydrochloride 5 mg oral tablet (13 sources) Potassium-sparing Diuretic Start: 04-12-2022 take 5 mg by mouth once daily Amiloride Active 5 MG PO Daily April 25, 2023 1:00am take 1 tablet by nancy every twelve hours aMILoride HCl 5 MG 1 tablet with food Orally bid for 90 days Active atorvastatin 80 mg oral tablet (20 sources) HMG-CoA Reductase Inhibitor Start: 04-26-2022 End: 04-25-2023 take 1 tablet by mouth once daily Atorvastatin Active 80 MG PO Daily April 25, 2023 1:00am [employer] tablet Orally Once a day; Note: Source Status: Taking; Provider: Dnais Loyola ( ) Start: 05-15-2018 End: 04-22-2020 take 80 mg by mouth once daily in the morning Atorvastatin Discontinued 80 MG PO Every morning May 15, 2018 1:00am April 22, 2020 4:06pm take 2 tablets by mo [facility] in the morning atorvastatin (LIPITOR) 40 mg tablet Take 2 tablets (80 mg total) by mouth in the morning. 0 Active bismuth subsalicylate 262 mg chewable tablet (1 source) Bismuth Start: 07-20-2022 take 1 tablet by mouth twice daily Bismuth 262 MG 1 tablet Orally twice daily for 14 days July, Active blood-glucose sensor (DEXCOM G6 SENSOR) device (6 sources) blood-glucose sensor (DEXCOM G6 SENSOR) device by miscellaneous route. 0 Active cefuroxime 500 mg oral tablet (8 sources) Cephalosporin Antibacterial Start: 04-05-2023 End: 04-15-2023 [...] 24, 2019 12:00am August 20, 2019 1:24pm chlorproMAZINE hydrochloride 200 mg oral tablet (20 sources) Phenothiazine Start: 04-25-2023 take 200 mg by mouth once Chlorpromazine Active 200 MG PO Once April 25, 2023 1:00am Start: 05-15-2018 End: 04-25-2023 take 200 mg by mouth three times daily Chlorpromazine Discontinued 200 MG PO Three times daily May 15, 2018 1:00am April 25, 2023 3:45pm Start: 05-15-2018 Chlorpromazine Active 100 MG PO [...] mouth every 8 (eight) hours. 0 Active Continuous Blood Gluc Sensor (Dexcom G6 Sensor) misc (2 sources) Start: 01-03-2023 Continuous Blood Gluc Sensor (Dexcom G6 Sensor) misc Indications: Type 2 diabetes mellitus with peripheral neuropathy (CMS/HCC) 1 each Every 10 (ten) days. 9 each 3 01/03/2023 Active doxepin hydrochloride 50 mg oral capsule (19 sources) Tricyclic Antidepressant Start: 05-15-2018 take 50 mg by mouth three times daily Doxepin Active 50 MG PO Three times daily May 15, 2018 1:00am [id number] 0.3 ml EPINEPHrine 1 mg/ml auto-injector (8 sources) alpha-Adrenergic Agonist, beta-Adrenergic Agonist, Catecholamine Start: 11-02-2021 EPINEPHrine (EpiPen 2-Dre) 0.3 MG/0.3ML injection syringe Inject 1 Syringe as directed 1 (one) time. 0 11/02/2021 Active EPINEPHrine (ADR ENALIN) 1 mg/mL injection Inject into the appropriate muscle once. 0 Active ezetimibe 10 mg oral tablet (19 sources) Dietary Cholesterol Absorption Inhibitor Start: 12-02-2020 take 10 mg by mouth once daily Ezetimibe Active 10 MG PO Daily December 02, 2020 12:00am fluticasone propionate 0.05 mg/actuat metered dose nasal spray (20 sources) Corticosteroid Start: 04-25-2023 take 1 spray(s) nasal route once daily Fluticasone Propionate Active 1 SPRAY INTRANASAL Daily April 25, 2023 1:00am [employer] spray in each nostril Nasally Once a day; Note: Source Status: Taking; Provider: Danis Loyola ( ) Start: 07-24-2019 End: 04-26-2022 Fluticasone Propionate Disco ntinued 2 SPRAY INTRANASAL Daily July 24, 2019 [...] each nostril Nasally Once a day Active gabapentin 800 mg oral tablet (19 sources) Anti-epileptic Agent Start: 05-15-2018 take 800 mg by mouth four times daily Gabapentin Active 800 MG PO Four times daily May 15, 2018 1:00am take 1 tablet by mouth every six hours gabapentin (Neurontin) 800 MG tablet Take 800 mg by mouth every 6 (six) hours. 0 Active Insulin Aspart U-100 (Novolo g Flexpen U-100 Insulin) 100 unit/mL (3 mL) Insulin Pen (6 sources) Start: 05-25-2019 Insulin Aspart U-100 (Novolog [...] insulin aspart, human 100 unt/ml pen injector (19 sources) Insulin Analog Start: 04-03-2023 insulin aspart [...] pen injector (20 sources) Insulin Analog Start: 04-25-2023 Insulin Glargi ne (Lantus Solostar U-100 Insulin) 100 unit/mL (3 mL) insulin pen Active 40 UNIT SUBCUT Twice daily April 25, 2023 3:43pm Start: 04-02-2023 inject 40 [IU] by burgos bcutaneous injection in the morning insulin glargine (Lantus SoloStar) 100 UNIT/ML pen Indications: Type 2 diabetes mellitus with peripheral neuropathy (CMS/HCC) Inject 40 Units under the skin in the morning and 40 Units before bedtime. 30 mL 2 04/02/2023 Active Start: 04-21-2020 End: 04-25-2023 Insulin Glargine (Lantus Knezie ostar U-100 Insulin) 100 unit/mL (3 mL) insulin pen Discontinued 50 UNIT SUBCUT Twice daily April 21, 2020 1:00am April 25, 2023 3:48pm Start: 04-21-2020 Insulin Glargi ne (Lantus Solostar [...] DAY Active lisinopril 20 mg oral tablet (19 sources) Angiotensin Converting Enzyme Inhibitor Start: 05-15-2018 take 20 mg by mouth once daily Lisinopril Active 20 MG PO Daily May 15, 2018 1:00am LORazepam 0.5 mg oral tablet (20 sources) Benzodiazepine Start: 04-25-2023 take 2 tablets by mouth four times daily Lorazepam (Ativan) 0.5 mg tablet Active 1 MG PO Four times daily April 25, 2023 3:36pm Start: 05-18-2022 End: 04-25-2023 take 1 tablet by mouth three times daily Lorazepam (Ativan) 0.5 mg Tablet Discontinued 0.5 MG PO Three times daily May 18, 2022 1:00am April 25, 2023 3:48pm Start: 05-18-2022 take 1 tablet by nancy th once daily Lorazepam (Ativan) 0.5 mg Tablet Active 0.5 MG PO Daily May 18, 2022 1:00am take 2 tablets by mo [facility] every six hours as needed for anxiety LORazepam (ATIVAN) 0.5 mg tablet Take 2 tablets (1 mg total) by mouth every 6 (six) hours as needed for anxiety. 0.5-1 mg daily 2 tablets at HS 0 Active take 1 tablet by nancy [...] Active magnesium oxide 400 mg oral tablet (20 sources) Start: 04-25-2023 take 400 mg by mouth twice daily Magnesium Oxide Active 400 MG PO Twice daily April 25, 2023 4:08pm Start: 04-26-2022 End: 04-25-2023 take 400 mg by mouth once daily Magnesium Oxide Discon tinued 400 MG PO Daily April 26, 2022 1:00am April 25, 2023 4:08pm take 1 tablet by nancy twice daily at mealtime Magnesium Oxide 400 (240 Mg) MG 1 tablet with food Orally bid for 90 day(s) Active metFORMIN hydrochloride 1000 mg oral tablet (19 sources) Biguanide Start: 05-15-2018 End: 12-24-2023 take 1000 mg by mouth twice daily Metformin Active 1000 MG PO Twice daily [...] Orally Twice a day for 14 days July, Active montelukast 10 mg oral tablet (12 sources) Leukotriene Receptor Antagonist Start: 08-07-2022 take 10 mg by mouth once daily Montelukast Active 10 MG PO Daily April 25, 2023 1:00am Tiotropium-Olodater ol (18 sources) Anticholinergic, beta2-Adrenergic Agonist Start: 04-26-2022 Tiotropium-Olodate rol (Stiolto Respimat) 2.5-2.5 mcg/actuation Mist Active 2 [...] a day for 14 days July, Active polyethylene glycol 3350 [id number] mg / potassium chloride 2970 mg / sodium bicarbonate 6740 mg / sodium chloride 5860 mg / sodium sulfate 09846 mg powder for oral solution (1 source) Osmotic Laxative Start: 07-24-2022 PEG-3350/Electroly irvin 236 GM as directed Orally once daily for 1 days July, Active predniSONE 20 mg oral tablet (2 sources) Start: 04-05-2023 take 2 tablets by mouth once daily, then take 1 tablet by mouth once daily predniSONE (Deltasone) 20 MG tablet Indications: Acute bronchitis, unspecified organism 2 po every day x 2 days then 1 po every day x 2 days 5 tablet 0 04/05/2023 Active rOPINIRole 0.25 mg oral tablet (19 sources) Nonergot Dopamine Agonist Start: 04-19-2016 take 0.25 mg by mouth once daily at bedtime Ropinirole Active 0.25 MG PO Daily at bedtime May 25, 2019 12:00am tetracycline hydrochloride 500 mg oral capsule (1 source) Tetracycline-class Antimicrobial Start: 07-20-2022 take 1 capsule by mouth twice daily Tetracycline HCl 500 MG 1 capsule on an empty stomach Orally twice daily for 14 days July, Active tiZANidine 4 mg oral tablet (8 sources) Central alpha-2 Adrenergic Agonist Start: 02-27-2023 take 1 tablet by mouth twice daily as needed for muscle spasms tiZANidine (ZANAFLEX) 4 mg tablet Take 1 tablet (4 mg total) by mouth 2 (two) times a day as needed for muscle spasms. 60 tablet 1 02/27/2023 Active 24 hr divalproex sodium 500 mg extended release oral tablet (20 sources) Mood Stabilizer, Anti-epileptic Agent Start: 04-25-2023 take 1500 mg by mouth once daily Divalproex Active 1500 MG PO Daily April 25, 2023 1:00am Start: 04-26-2022 End: 04-25-2023 take 1 tablet by mouth once daily Divalproex (Depakote Er) 500 mg Tablet Extended Release 24 Hr Discontinued 500 MG PO Daily April 26, 2022 1:00am April 25, 2023 3:44pm Start: 05-25-2019 End: 04-21-2020 take 1500 mg by mouth once daily at bedtime Divalproex Discontinued 1500 MG PO Daily at bedtime May 25, 2019 12:00am April 21, 2020 5:05pm Start: 05-25-2019 End: 04-26-2022 take 1000 mg by mouth once daily in the morning Divalproex Discontinued 1000 MG PO Every morning May 25, 2019 12:00am April 26, 2022 3:34pm take 3 tablets by [facility] once daily divalproex (DEPAKOTE) 500 mg EC tablet Take 3 tablets (1,500 mg total) by mouth nightly. 0 Active take 2 tablets by mo uth every hour at bedtime divalproex (Depakote ER) 500 MG 24 hr tablet Take 500 mg by mouth every 12 (twelve) hours. Takes one tablet in the am and 2 at bedtime 0 Active take 2 tablets by mo [...] coma, with long-term current use of insulin ([facility]) Inject 1 mL (75 mg total) under the skin every 14 (fourteen) days. 2 mL 11 12/21/2021 03/15/2023 Discontinued (Therapy completed) Praluent 75 MG/M L Subcutaneous for 28 Days Active Alirocumab (Praluent Pen) 75 mg/mL Pen Injector (6 sources) Start: 04-26-2022 End: 04-25-2023 inject 75 mg by subcutaneous injection every other week Alirocumab (Praluent Pen) 75 mg/mL Pen Injector Discontinued 75 MG SUBCUT Q14D April 26, 2022 1:00am April 25, 2023 3:46pm Start: 04-26-2022 End: 04-25-2023 inject 75 mg by subcutaneous injection every other week Alirocumab (Praluent Pen) 75 mg/mL Pen Injector Discontinued 75 MG SUBCUT Q14D April 26, 2022 12:00am April 25, 2023 2:46pm Start: 04-26-2022 inject 75 mg by subc utaneous injection every other week Alirocumab (Praluent Pen) 75 mg/mL Pen Injector Active 75 MG SUBCUT Q14D April 26, 2022 1:00am Start: 04-26-2022 inject 75 mg by subc utaneous injection every other week Alirocumab (Praluent Pen) 75 mg/mL Pen Injector Active 75 MG SUBCUT Q14D April 26, 2022 12:00am cetirizine hydrochloride 10 mg oral tablet (17 sources) Histamine-1 Receptor Antagonist Start: 05-25-2019 End: 04-25-2023 take 10 mg by mouth once daily Cetirizine Discontinued 10 MG PO Daily May 25, 2019 12:00am April 25, 2023 3:45pm cholecalciferol 0.01 mg oral tablet (14 sources) Vitamin D Start: 04-21-2020 End: 04-27-2022 take 10 ug by mouth once daily Cholecalciferol (Vitamin D3) Discontinued 10 MCG PO Daily April 21, 2020 1:00am April 27, 2022 10:40am cholecalciferol (VITAMIN D3) 50,000 units capsule Take 5,000 Units by mouth once a week. 0 Active take 1 capsule by mouth every we ek cholecalciferol (Vitamin D-3) 1.25 MG (56803 UT) capsule Take 50,000 Units by mouth 1 (one) time per week. 0 Active cyclobenzaprine hydrochloride 10 mg oral tablet (12 sources) Muscle Relaxant Start: 04-21-2020 End: 04-22-2020 [...] succinate 100 mg extended release oral tablet (20 sources) Serotonin and Norepinephrine Reuptake Inhibitor Start: [...] tablet by nancy th every twenty-four hours Desvenlafaxine ER 100 MG 1 tablet Orally Once a day Active diazePAM 5 mg oral tablet (6 sources) Benzodiazepine Start: 08-28-2019 End: 04-21-2020 take 5 mg by mouth four times daily Diazepam Discontinued 5 MG PO Four times daily 40 10 August 28, 2019 12:00am April 21, 2020 5:12pm ergocalciferol 1.25 mg oral capsule (7 sources) Provitamin D2 Compound Start: 05-25-2019 End: 04-26-2022 Ergocalciferol (Vitamin D2) (Vitamin D2) 1,250 mcg (50,000 unit) Capsule Discontinued 43214 UNIT PO As Directed May 25, 2019 12:00am April 26, 2022 3:35pm take twice weekly take 1 capsule by mo ut two times weekly Vitamin D (Ergocalciferol) 1.25 MG (5000 0 UT) 1 capsule Orally twice a week Active ygaxaknw-vevz-DE-calcium &mi ns (THERAGRAN-M) 9 mg iron-400 mcg tablet (2 sources) End: 03-15-2023 ymgfzbft-hmgy-AI-calcium &mi ns (THERAGRAN-M) 9 mg iron-400 mcg tablet Take 1 tablet by mouth in the morning. 0 03/15/2023 Discontinued (Therapy completed) epeswshw-eogh-VQ -calcium &mins (THERAGRAN-M) 9 mg iron-400 mcg tablet Take 1 tablet by mouth in the morning. 0 Active Multivitamin preparation (6 sources) Start: 05-25-2019 End: 09-05-2022 take 1 tablet by mouth once daily in the morning Multivitamin Discontinued 1 TAB PO Every morning May 25, 2019 12:00am September 05, 2022 9:24am Start: 05-25-2019 End: 09-05-2022 take 1 tablet by mouth once daily in the morning Multivitamin Discontinued 1 TAB PO Every morning May 24, 2019 11:00pm September 05, 2022 8:24am Start: 05-25-2019 take 1 tablet by nancy th once daily in the morning Multivitamin Active 1 TAB PO Every morning May 25, 2019 12:00am Start: 05-25-2019 take 1 tablet by nancy th once daily in the morning Multivitamin Active 1 TAB PO Every morning May 24, 2019 11:00pm naproxen 500 mg oral tablet (12 sources) Nonsteroidal Anti-inflammatory Drug Start: 04-21-2020 End: 07-11-2022 take 500 mg by mouth every twelve hours Naproxen Discontinued 500 MG PO Q12H April 21, 2020 1:00am July 11, 2022 12:58pm Start: 05-25-2019 End: 08-28-2019 take 500 mg by mouth twice daily Naproxen Discontinued 500 MG PO Twice daily May 25, 2019 12:00am August 28, 2019 8:41am oxyCODONE hydrochloride 5 mg oral tablet (6 sources) Opioid Agonist Start: 08-28-2019 End: 04-22-2020 take 5 mg by mouth every four to six hours Oxycodone Discontinued 5 MG PO EVERY 4-6 HOURS 70 14 August 28, 2019 April 22, 2020 4:06pm pantoprazole 40 mg delayed release oral tablet (20 sources) Proton Pump Inhibitor Start: 05-07-2018 End: 12-02-2020 take 40 mg by mouth twice daily Pantoprazole Discontinued 40 MG PO Twice daily May 15, 2018 1:00am December 02, 2020 9:29am take 1 tablet by nancy th every twelve hours pantoprazole (Protonix) 40 MG EC tablet Take 40 mg by mouth every 12 (twelve) hours. 0 Active potassium gluconate 2.13 meq oral tablet (6 sources) Start: 07-24-2019 End: 12-02-2020 take 75 mg by mouth once daily Potassium Gluconate Discontinued 75 MG PO Daily July 24, 2019 12:00am December 02, 2020 9:29am tiotropium 0.018 mg inhalation powder (13 sources) Anticholinergic Start: 05-25-2019 End: 04-26-2022 take 1 puff(s) by inhalation once daily in the morning Tiotropium [place] Discontinued 1 PUFF INHALATION Every morning May 25, 2019 12:00am April 26, 2022 3:46pm Start: 05-15-2018 End: 05-25-2019 take 18 ug by inhalation once daily Tiotropium [place] Discontinued 18 MCG INHALATION Daily May 15, [...] [Unspecified abdominal pain] Episodic Acquired foot deformities (4 sources) Acquired hallux valgus; Translations: [Hallux valgus (acquired), unspecified foot] Onset: 3 07-23-2022 Chronic Adjustment disorders (2 sources) Stress; Translations: [Reaction to severe stress, unspecified] Onset: 3 07-23-2022 Chronic Anxiety disorders (5 sources) Posttraumatic stress disorder; Translations: [Post-traumatic stress disorder, unspecified] Chronic Chronic kidney disease (9 sources) Chronic kidney disease stage 2; Translations: [Chronic kidney disease, stage 2 (mild)] 04-25-2023 Chronic Chronic kidney disease (8 sources) Chronic kidney disease; Translations: [Chronic kidney disease, stage III (moderate)] Onset: 2 Resolved: 2 Chronic obstructive pulmonary disease and bronchiectasis (20 sources) Emphysematous bronchitis; Translations: [Chronic obstructive pulmonary disease, unspecified] Onset: 8 04-27-2022 Chronic Complications of surgical procedures or medical care (7 sources) Post-hysterectomy menopause; Translations: [Asymptomatic postprocedural ovarian failure] Onset: 3 07-23-2022 Chronic Diabetes mellitus with complications (20 sources) Type 2 diabetes mellitus; Translations: [Type 2 diabetes mellitus with diabetic chronic kidney disease] Onset: 1 Resolved: 4 Chronic Diabetes mellitus without complication (18 sources) Diabetes mellitus; Translations: [Type 2 diabetes mellitus without complications] Onset: 2 04-27-2022 Chronic Diseases of white blood cells (12 sources) Leukocytosis; Translations: [Elevated white blood cell count, unspecified] Onset: 3 04-22-2020 Chronic Disorders of lipid metabolism (20 sources) Hyperlipidemia; Translations: [Hyperlipidemia, unspecified] Onset: 2 12-18-2021 Chronic Esophageal disorders (20 sources) Gastroesophageal reflux disease; Translations: [Gastro-esophageal reflux disease without esophagitis] Onset: 3 04-22-2020 Chronic Essential hypertension (15 sources) Hypertensive disorder; Translations: [Essential (primary) hypertension] Onset: 2 12-18-2021 Chronic Genitourinary symptoms and ill-defined conditions (19 sources) Proteinuria; Translations: [Proteinuria, unspecified] Onset: 2 Resolved: 2 Episodic Hepatitis (18 sources) Nonalcoholic steatohepatitis; Translations: [Nonalcoholic steatohepatitis (WICK)] Onset: 2 12-18-2021 Chronic Hypertension with complications and secondary hypertension (17 sources) Hypertensive renal disease; Translations: [Hypertensive chronic kidney disease with stage 1 through stage 4 chronic kidney disease, or unspecified chronic kidney disease] Onset: 2 Resolved: 2 Chronic Malaise and fatigue (2 sources) Fatigue; Translations: [Chronic fatigue, unspecified] Onset: 3 07-23-2022 Chronic Miscellaneous mental health disorders (4 sources) Feeling of lump in throat; Translations: [Other somatoform disorders] Chronic Mood disorders (9 sources) Bipolar affective disorder, currently depressed, moderate; Translations: [Bipolar disorder, current episode depressed, moderate] Onset: 3 07-23-2022 Chronic Mycoses (1 source) Onychomycosis; Translations: [Tinea unguium] 04-09-2023 Episodic Nutritional deficiencies (14 sources) Vitamin D deficiency; Translations: [Vitamin D deficiency, unspecified] Onset: 2 Resolved: 2 Chronic Other acquired deformities (2 sources) Contracture of joint of left ankle; Translations: [...] [Pain in left toe(s)] 04-09-2023 Episodic Other connective tissue disease (1 source) Myalgia, other site; Translations: [Myalgia, other site] Onset: 4 Episodic Other diseases of kidney and ureters (5 sources) Secondary hyperparathyroidism; Translations: [Secondary hyperparathyroidism of renal origin] Chronic Other endocrine disorders (5 sources) Disorder of adrenal gland; Translations: [Disorder of adrenal gland, unspecified] Chronic Other endocrine disorders (9 sources) Adrenal mass; Translations: [Disorder of adrenal gland, unspecified] Onset: 3 07-23-2022 Chronic Other endocrine disorders (4 sources) Disorder of adrenal gland, unspecified; Translations: [DISORDER ADRENAL GLAND UNSPECIFIED] Onset: 2 Resolved: 2 Chronic Other endocrine disorders (2 sources) Other specified disorders of adrenal gland; Translations: [Other specified disorders of adrenal glands] 04-25-2023 Chronic Other gastrointestinal disorders (15 sources) Dysphagia; Translations: [Dysphagia, unspecified] Onset: 3 04-22-2020 Episodic Other gastrointestinal disorders (1 source) Dysphagia, unspecified Episodic Other hematologic conditions (2 sources) Secondary polycythemia; Translations: [SECONDARY POLYCYTHEMIA] Onset: 3 Episodic Other hereditary and degenerative nervous system conditions (7 sources) Restless legs; Translations: [Restless legs syndrome] Onset: 3 07-23-2022 Chronic Other liver diseases (7 sources) Lesion of liver; Translations: [Liver disease, unspecified] Onset: 3 07-23-2022 Chronic Other nervous system disorders (5 sources) Carpal tunnel syndrome; Translations: [Carpal tunnel syndrome, right upper limb] Chronic Other nervous system disorders (5 sources) Radial neuropathy; Translations: [Lesion of radial nerve, right upper limb] Chronic Other nervous system disorders (2 sources) Carpal tunnel syndrome of right wrist; Translations: [Carpal tunnel syndrome, right upper limb] Onset: 3 07-23-2022 Chronic Other nervous system disorders (2 sources) Right radial neuropathy; Translations: [Lesion of radial nerve, right upper limb] Onset: 3 07-23-2022 Chronic Other nervous system disorders (2 sources) Chronic pain; Translations: [Other chronic pain] Onset: 3 07-23-2022 Chronic Other non-traumatic joint disorders (5 sources) Pain of right wrist; Translations: [Pain in right wrist] Episodic Other nutritional; endocrine; and metabolic disorders (5 sources) Obese class I; Translations: [Body mass index (BMI) 33.0-33.9, adult] Chronic Other nutritional; endocrine; and metabolic disorders (7 sources) Hypomagnesemia; Translations: [Hypomagnesemia] 04-25-2023 Chronic Other nutritional; endocrine; and metabolic disorders (6 sources) Hypomagnesemia; Translations: [Disorders of magnesium metabolism] Onset: 2 Resolved: 2 Chronic Other nutritional; endocrine; and metabolic disorders (13 sources) Hypercalcemia; Translations: [Hypercalcemia] Onset: 3 04-27-2022 Chronic Other nutritional; endocrine; and metabolic disorders (10 sources) Hypercalcemia; Translations: [Hypercalcemia] Onset: 3 Chronic Other nutritional; endocrine; and metabolic disorders (2 sources) Weight decreased; Translations: [Abnormal weight loss] Episodic Other upper respiratory disease (12 sources) Allergic rhinitis; Translations: [Allergic rhinitis, unspecified] Onset: 3 07-23-2022 Chronic Other upper respiratory disease (7 sources) Seasonal allergic rhinitis; Translations: [Other seasonal allergic rhinitis] Onset: 3 07-23-2022 Chronic Other upper respiratory disease (7 sources) Allergic rhinitis due to pollen; Translations: [Allergic rhinitis due to pollen] Onset: 3 07-23-2022 Chronic Residual codes; unclassified (7 sources) Obstructive sleep apnea syndrome; Translations: [Obstructive [...] side] Onset: 3 12-19-2022 Episodic Substance-related disorders (7 sources) Tobacco user; Translations: [Nicotine dependence, cigarettes, uncomplicated] Onset: 5 12-10-2022 Chronic Unclassified (1 source) CHRN KIDNEY DISEASE STG 3 UNSP; Translations: [CHRN KIDNEY DISEASE STG 3 UNSP] Onset: Past or Other Problems Problem Classification Problem Date Documented Da te Episodic/Chronic Gastritis and duodenitis (3 sources) Gastroduodenitis; Translations: [Gastritis, unspecified, without bleeding] Onset: 07-25-2022 Episodic Mood disorders (2 sources) Mood disorders Onset: 08-07-2022 08-07-2022 Nonspecific chest pain (9 sources) Chest pain; Translations: [Chest pain, unspecified] Onset: 03-15-2023 03-15-2023 Episodic Other acquired deformities (2 sources) Acquired spondylolisthesis; Translations: [Spondylolisthesis, site unspecified] Onset: 07-23-2022 07-23-2022 Episodic Other aftercare (12 sources) Long-term current use of insulin; 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] Onset: 11-29-2022 Resolved: 04-02-2023 04-02-2023 Episodic Other aftercare (4 sources) 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; Translations: [[facility] CURRENT DRUG THERAPY] Onset: 08-30-2021 Episodic Other hematologic conditions (2 sources) Red blood cell finding; Translations: [Other abnormality of red blood cells] Onset: 07-23-2022 07-23-2022 Episodic Other nutritional; endocrine; and metabolic disorders (7 sources) Morbid obesity; Translations: [Morbid (severe) obesity due to excess calories] Onset: 07-23-2022 Resolved: 04-02-2023 04-02-2023 Chronic Other nutritional; endocrine; and metabolic disorders (7 sources) Severe obesity; Translations: [Morbid (severe) obesity due to excess calories] Onset: 07-23-2022 Resolved: 04-02-2023 04-02-2023 Chronic Other nutritional; endocrine; and metabolic disorders (1 source) Abnormal weight loss; Translations: [Abnormal weight loss] Onset: 07-25-2022 Episodic Other screening for suspected conditions (not mental disorders or infectious disease) (15 sources) Elevated liver enzymes level; Translations: [Other specified abnormal findings of blood chemistry] Onset: 07-23-2022 04-27-2022 Episodic Residual codes; unclassified (7 sources) Acquired absence of cervix and uterus; Translations: [Acquired absence of both cervix and uterus] Onset: 07-23-2022 07-23-2022 Episodic Results Test Name Value Interpretation Reference Range Facility BI MAMMOGRAM SCREENING TOMOS YNTHESIS BILATERALon 04-22-2023 BI MAMMOGRAM SCREENING TOMOSYNTHESIS BILATERAL This is a summary report. The complete report is available in the patient's medical record. If you cannot access the medical record, please contact the sending organization for a detailed fax or copy. EXAMINATION: BI MAMMOGRAM SCREENING TOMOSYNTHESIS BILATERAL CLINICAL HISTORY:screen COMPARISON: March 09, 2022 . RESULT: Digital mammography and 3D tomosynthesis of bilateral breasts was performed. Density: Almost entirely fatty [1] There is no suspicious mass, asymmetry, architectural distortion, or calcification. Overall appearance stable. IMPRESSION: BIRADS 1 - Negative Follow-up: Routine Screening Mamm Board Certified Radiologists. Accredited by the ACR and FDA. MAMMOGRAPHY IS VERY IMPORTANT TO YOUR HEALTH. THE [place] [employer] GUIDELINES RECOMMEND THAT WOMEN 40 YEARS OF AGE AND OLDER SHOULD HAVE A MAMMOGRAM EVERY YEAR. A REMINDER LETTER WILL BE SENT AT THE APPROPRIATE TIME. THIS FACILITY UTILIZES A REMINDER SYSTEM TO ENSURE ALL PATIENTS RECEIVE REMINDER NOTIFICATIONS AT THE APPROPRIATE TIME BASED ON THE RECOMMENDATIONS OF THIS EXAM. THIS INCLUDES REMINDERS FOR ROUTINE SCREENING MAMMOGRAMS, DIAGNOSTIC MAMMOGRAMS IN WHICH THE PATIENT IS ASKED TO RETURN FOR ADDITIONAL VIEWS, OR OTHER BREAST IMAGING INTERVENTIONS WHEN APPROPRIATE. THE PATIENT WILL BE PLACED IN THE APPROPRIATE REMINDER SYSTEM INCLUDING A REMINDER AT THE APPROPRIATE TIME FOR ANY PENDING ADDITIONAL VIEWS. TRANSCRIBED BY: ELECTRONICALLY SIGNED BY: Rich Soriano MD Normal Not Available DIRECT LDLon 04-01-2023 Cholesterol in LDL [Mass/Vol] 143 mg/dL High <130 [facility] Comment on above: Result Comment: LDL <100 mg/dL - Desirable LDL 130-159 mg/dL - Borderline High Risk LDL >160 mg/dL - High Risk Performed By: #### 2 089-1 #### [facility] ([id number]) [address], [address] [place] [address] POCT EKGOrdered By: Mary Kay Finley on 03-15-2023 [facility] US LOWER EXTREMITY VENO US DUPLEX LEFTon 01-28-2023 [facility] US LOWER EXTREMITY VENOUS DUPLEX LEFT EXAM: [facility] US LOWER EXTREMITY VENOUS DUPLEX LEFT [...] left lower extremity. ELECTRONICALLY SIGNED BY: Dennis Maki, DO Normal Not Available Glucose Poct Glucometerson 0 09-05-2022 Glucose [Mass/Vol] 208 mg/dL Normal [facility] Comment on above: Result Comment: [facility] Glucose Reference Range is dependent on time and content of last meal. Glucose of more than 200 mg/dL in a nonstressed, ambulatory subject supports the diagnosis of Diabetes Mellitus. PERFORMED BY: [facility] [address] [place] [address] PATHOLOGIST ADVERTISING [employer] MURRAY PENN M.D. Performed By: #### G ADOLFO #### Point of Care testing , [facility] [place] 09-05-2022 L ----- Specimen: [id number] Received: 09/05/22 Status: CHRIS Stoner Num: [id number] Spec Type: Surgical Subm Dr: Peyton Hoskins MD Tissues: A Colon Biopsy (RECTAL POLYP) Procedures: HE/2, Gross/Micro L4 Age/ Patient Sex Location Account Attending Physician Keya Ley 51/F [id number] Peyton Hoskins MD SPEC NUM: [id number] RECD: 09/05/22 STATUS: CHRIS STONER NUM: [id number] FRANK[place]: 09/05/22- [facility] DR: Peyton Hoksins MD ENTERED: 09/05/22 [facility] DR: GIRMA TYPE: Surgical DEPT: S [...] microscopic examination confirms the diagnosis. CPT Codes 72839 Specimen: [id number] Received: 09/05/22 Status: CHRIS Stoner Num: [id number] Spec Type: Surgical Subm Dr: Peyton Hoskins MD Tissues: A Colon Biopsy (RECTAL POLYP) Procedures: HE/2, Gross/Micro L4 Patient: Keya Ley [id number] (Continued) Signed (signature on file) Reymundo Mosqueda MD 09/06/22 0906 Normal [facility] Blood Urea Nitrogenon 2022 Urea nitrogen [Mass/Vol] 17 mg/dL Normal 7-25 [facility] Comment on above: Performed By: #### B BHARAT GARZA #### [facility] [address] abdomen pelvis w conon CT abdomen pelvis w con [facility] [address] [place] [address] [place] [address] CT Scan Report Signed Patient: Keya Ley MR#: [id number] : 1970 Acct:[id number] Age/Sex: 51 / F ADM Date: 07/25/22 Loc: CT Room: Type: [facility] Attending Dr: Peyton Hoskins MD Copies to: [...] steatosis. Impression dictated by: Rich Holder Jr., D.ONikki07/25/2022 3:46 PM Dictation Location: [place] [address] Transcribed By: [facility] 07/25/22 154 Dictated By: Rich Holder Jr, DO 07/25/22 154 Signed By: 07/25/22 154 Normal [facility] Creatinineon 07-25-2022 Creatinine [Mass/Vol] 0.95 mg/dL Normal 0.60-1.20 [facility] Comment on above: Performed By: #### B UN, CREAT #### [facility] [address] [place] [address] [place] GFR/1.73 sq M.predicted MDRD (S/P/Bld) [Vol rate/Area] mL/min/{1.73_m2} Normal [facility] Comment on above: Result Comment: PERF ORMED BY: [place] [address] PATHOLOGIST ADVERTISING [employer] MURRAY PENN M.D. Performed By: #### B UN, CREAT #### [facility] [address] [place] [id number] [place] Creatinine (Bld) [Mass/Vol]O rdered By: Peyton Hoskins on 07-25-2022 Creatinine [Mass/Vol] 1.0 mg/dL 0.6-1.3 [facility] Comment on above: ER/ESD physician is notified/shown all ISTAT results.Critical values may be confirmed by laboratory testing ifdeemed necessary by ER attending doctor. Creatinine [Mass/volume] in Serum or PlasmaOrdered By: Imcheri Hoskins on 07-25-2022 Creatinine [Mass/Vol] 0.95 mg/dL 0.60-1.20 [facility] No Panel InformationOrdered By: Imcheri Hoskins on 07-25-2022 Estimated GFR (CKD-EPI) > 60.0 mL/Min [facility] Creatinine Clearance (Chem N/A [facility] Urea nitrogen [Mass/volume] in Serum or PlasmaOrdered By: Imad Asaad on 07-25-2022 Urea nitrogen [Mass/Vol] 17 mg/dL 7- [facility] NM*parathyroid SPECT*on 07-09 NM*parathyroid SPECT* [facility] [place] [address] Nuclear Medicine Report Signed Patient: Keya Ley MR#: [id number] : 1970 Acct:[id number] Age/Sex: 51 / F ADM Date: 07/23/22 Loc: [place] Room: Type: [facility] Attending Dr: Nir Horvath MD Copies to: [...] Shelton Reed M.D.07/23/2022 4:57 PM Dictation Location: [place] [address] Transcribed By: [facility] 07/23/221656 Dictated By: Shelton Reed II, MD 07/23/221654 Signed By: 07/23/221656 Normal [facility] CALCIUM 24 HR URINEon 2022 CALC, 24 HR UR 202.8 mg/24 hr Normal 100.0-300. 0 [facility] Comment on above: Performed By: #### C ALC24U #### [facility] [address] [place] [address] [address] Tyree Botello UR CALCIUM 15.6 mg/dL Normal 5.1-21.0 [facility] Comment on above: Performed By: #### C [id number] #### [facility] [address] [place] [address] Dr. Tyree Botello UR TOT VOL 1300 ml/24 HR Normal [facility] Comment on above: Performed By: #### C ALC24U #### [facility] [address] [place] [address] Dr. Tyree Botello MAGNESIUMon 07-18-2022 Magnesium [Mass/Vol] 1.4 mg/dL Critically low 1.8-2.4 [facility] Comment on above: Performed By: #### M G, RENAL, URIC #### [facility] [address] [place] [address] Dr. Tyree Botello RENAL FUNCTION PANELon 07-18 Albumin [Mass/Vol] 3.1 g/dL Critically low 3.4-5.[address] [facility] Comment on above: Performed By: #### M G, RENAL, URIC #### [facility] [address] [place] [address] Dr. Tyree Botello Calcium [Mass/Vol] 9.7 mg/dL Normal 8.5-10.1 [facility] Comment on above: Performed By: #### M G, RENAL, URIC #### [facility] [address] [place] [address] Dr. Tyree Botello Chloride [Moles/Vol] 102 mmol/L Normal 98-107 [facility] Comment on above: Performed By: #### M G, RENAL, URIC #### [facility] [address] [place] [address] Dr. Tyree Botello CO2 [Moles/Vol] 26.1 mmol/L Normal 21.0-32.0 [facility] Comment on above: Performed By: #### M G, RENAL, URIC #### [facility] [address] [place] [address] Dr. Tyree Botello Creatinine [Mass/Vol] 1.13 mg/dL Critically high 0.55-1.02 [facility] Comment on above: Performed By: #### M G, RENAL, URIC #### [facility] [address] [place] [address] [address] yTree Botello EGFR-AF [place] >60 Normal >=60 [facility] Comment on above: Performed By: #### M G, RENAL, URIC #### [facility] [address] [place] [address] [address] Tyree Botello EGFR-NON AF [place] 51 mL/min/1.73m2 Critically low >=60 [facility] Comment on above: Performed By: #### M G, RENAL, URIC #### [facility] [address] [place] [address] [address] Tyree Botello Glucose [Mass/Vol] 355 mg/dL Critically high 74-106 [facility] Comment on above: Performed By: #### M G, RENAL, URIC #### [facility] [address] [place] [address] Dr. Tyree Botello Phosphate [Mass/Vol] 3.4 mg/dL Normal 2.6-4.7 [facility] Comment on above: Performed By: #### M G, RENAL, URIC #### [facility] [address] [place] [address] Dr. Tyree Botello Potassium [Moles/Vol] 4.3 mmol/L Normal 3.5-5.1 [facility] Comment on above: Performed By: #### M G, RENAL, URIC #### [facility] [address] [place] [address] Dr. Tyree Botello Sodium [Moles/Vol] 138 mmol/L Normal 136-145 [facility] Comment on above: Performed By: #### M G, RENAL, URIC #### [facility] [address] [place] [address] Dr. Tyree Botello Urea nitrogen [Mass/Vol] 16.0 mg/dL Normal 7.0-18.0 [facility] Comment on above: Performed By: #### M G, RENAL, URIC #### [facility] [address] [place] [address] Dr. Tyree White 07-12-2022 L ----- Specimen: [id number] Received: 07/12/22 Status: CHRIS Stoner Num: [id number] Spec Type: Surgical Subm Dr: Peyton Hoskins MD Tissues: A Gastric Biopsy (GASTRIC BX) B Esophagus Biopsy (DISTAL ESOPHAGUS) C Esophagus Biopsy (PROXIMAL ESOPHAGUS) Procedures: HE/6, Gross/Micro L4/3, H PYLORI Age/ Patient Sex Location Account Attending Physician Keya Ley/F [id number] Peyton Hoskins MD SPEC NUM: [id number] RECD: 07/12/22 STATUS: CHRIS STONER NUM: [id number] FRANKLIN: 07/12/22- SUBM DR: Peyton Hoskins MD ENTERED: 07/12/[address] [facility] DR: SPEC TYPE: Surgical DEPT: S ORDERED: HE/6, Gross/Micro [...] name, number and distal esophagus are Specimen: [id number] Received: 07/12/22 Status: MARILYNIzaiah Stoner Num: [id number] Spec Type: Surgical Subm Dr: Peyton Hoskins MD Tissues: A Gastric Biopsy (GASTRIC BX) B Esophagus Biopsy (DISTAL ESOPHAGUS) C Esophagus Biopsy (PROXIMAL ESOPHAGUS) Procedures: HE/6, Gross/Micro L4/3, H PYLORI Patient: Keya Ley [id number] (Continued) Specimen: [id number] Received: 07/12/22 (Continued) Gross Description (Continued) Signed (signature on file) Reymundo Mosqueda MD 07/16/22 1524 Specimen: [id number] Received: 07/12/22 Status: CHRIS Estuardo Num: [id number] Spec Type: Surgical Subm Dr: Peyton Hoskins MD Tissues: A Gastric Biopsy (GASTRIC BX) B Esophagus Biopsy (DISTAL ESOPHAGUS) C Esophagus Biopsy (PROXIMAL ESOPHAGUS) Procedures: HE/6, Gross/Micro L4/3, H PYLORI Patient: Keya Ley [id number] (Continued) Specimen: [id number] Received: 07/12/22 (Continued) Gross Description (Continued) two [...] support the above pathologic diagnosis. CPT Codes 30560?3, 36514 Specimen: [id number] Received: 07/12/22 Status: CRHIS Stoner Num: [id number] Spec Type: Surgical Subm Dr: Peyton Hoskins MD Tissues: A Gastric Biopsy (GASTRIC BX) B Esophagus Biopsy (DISTAL ESOPHAGUS) C Esophagus Biopsy (PROXIMAL ESOPHAGUS) Procedures: HE/6, Gross/Micro L4/3, H PYLORI Patient: Keya Ley [id number] (more content not included)... Normal [facility] PTH INTACTon 07-03-2022 PTH, Intact 16 pg/mL Normal 15-65 [facility] Comment on above: Performed By: #### M G, RENAL, URIC #### [facility] [address] [place] [address] Dr. Tyree Botello HEMOGRAM AND PLATELon 2022 Hematocrit (Bld) [Volume fraction] 44.5 % Normal 36.0-48.0 [facility] Comment on above: Performed By: #### M G, RENAL, URIC #### [facility] [address] [place] [address] Dr. Tyree Botello Hemoglobin (Bld) [Mass/Vol] 15.0 g/dL Normal 12.0-16.0 [facility] Comment on above: Performed By: #### M G, RENAL, URIC #### [facility] [address] [place] [address] [address] Tyree Botello MCH (RBC) [Entitic mass] 30.2 pg Normal 26.7-34.0 [facility] Comment on above: Performed By: #### M G, RENAL, URIC #### [facility] [address] [place] [address] [address] Tyree Botello MCHC (RBC) [Mass/Vol] 33.7 g/dL Normal 29.9-35.2 [facility] Comment on above: Performed By: #### M G, RENAL, URIC #### [facility] [address] [place] [address] [address] Tyree Botello MCV (RBC) [Entitic vol] 89.5 fL Normal 81.0-99.0 [facility] Comment on above: Performed By: #### M G, RENAL, URIC #### [facility] [address] [place] [address] Dr. Tyree Botello PLT 263 103/ul Normal 150-450 [facility] Comment on above: Performed By: #### M G, RENAL, URIC #### [facility] [address] [place] [address] [address] Tyree Botello RBC 4.97 106/ul Normal 4.20-5.40 [facility] Comment on above: Performed By: #### M G, RENAL, URIC #### [facility] [address] [place] [address] Dr. Tyree Botello WBC 12.0 103/ul Critically high 4.0-11.0 [facility] Comment on above: Performed By: #### M G, RENAL, URIC #### [facility] [address] [place] [address] Dr. Tyree Botello MAGNESIUMon 07-02-2022 Magnesium [Mass/Vol] 1.2 mg/dL Critically low 1.8-2.4 [facility] Comment on above: Performed By: #### M G, RENAL, URIC #### [facility] [address] [place] [address] Dr. Tyree Botello RENAL FUNCTION PANELon 07-02 Albumin [Mass/Vol] 3.1 g/dL Critically low 3.4-5.[address] [facility] Comment on above: Performed By: #### M G, RENAL, URIC #### [facility] [address] [place] [address] Dr. Tyree Botello Calcium [Mass/Vol] 9.7 mg/dL Normal 8.5-10.1 [facility] Comment on above: Performed By: #### M G, RENAL, URIC #### [facility] [address] [place] [address] Dr. Tyree Botello Chloride [Moles/Vol] 104 mmol/L Normal 98-107 [facility] Comment on above: Performed By: #### M G, RENAL, URIC #### [facility] [address] [place] [address] [address] Tyree Botello CO2 [Moles/Vol] 28.6 mmol/L Normal 21.0-32.0 [facility] Comment on above: Performed By: #### M G, RENAL, URIC #### [facility] [address] [place] [address] [address] Tyree Botello Creatinine [Mass/Vol] 0.95 mg/dL Normal 0.55-1.02 [facility] Comment on above: Performed By: #### M G, RENAL, URIC #### [facility] [address] [place] [id number] Dr. Tyree Botello EGFR-AF MOLDOVAN >60 Normal >=60 [facility] Comment on above: Performed By: #### M G, RENAL, URIC #### [facility] [address] [place] [address] Dr. Tyree Botello EGFR-NON AF MOLDOVAN >60 Normal >=60 [facility] Comment on above: Performed By: #### M G, RENAL, URIC #### [facility] [address] [address] [address] Tyree Botello Glucose [Mass/Vol] 148 mg/dL Critically high 74-106 [facility] Comment on above: Performed By: #### M G, RENAL, URIC #### [facility] [address] [address] [address] Tyree Botello Phosphate [Mass/Vol] 3.6 mg/dL Normal 2.6-4.7 [facility] Comment on above: Performed By: #### M G, RENAL, URIC #### [facility] [address] [address] [address] Tyree Botello Potassium [Moles/Vol] 4.2 mmol/L Normal 3.5-5.1 [facility] Comment on above: Performed By: #### M G, RENAL, URIC #### [facility] [address] [address] [address] Tyree Botello Sodium [Moles/Vol] 143 mmol/L Normal 136-145 [facility] Comment on above: Performed By: #### M G, RENAL, URIC #### [facility] [address] [place] [address] Dr. Tyree Botello Urea nitrogen [Mass/Vol] 14.0 mg/dL Normal 7.0-18.0 [facility] Comment on above: Performed By: #### M G, RENAL, URIC #### [facility] [address] [place] [address] Dr. Tyree Botello UA RANDOM W/MICROSCOPICon BACTERIA NONE SEEN Normal NONE SEEN [facility] Comment on above: Performed By: #### M G, RENAL, URIC #### [facility] [address] [place] [address] Dr. Tyree Botello Bilirubin Ql (U) Negative Normal NEGATIVE [facility] Comment on above: Performed By: #### M G, RENAL, URIC #### [facility] [address] [place] [address] Dr. Tyree Botello CAST SEEN Abnormal NONE SEEN [facility] Comment on above: Performed By: #### M G, RENAL, URIC #### [facility] [address] [place] [address] Dr. Tyree Botello Clarity (U) CLEAR Normal CLEAR [facility] Comment on above: Performed By: #### M G, RENAL, URIC #### [facility] [address] [place] [address] Dr. Tyree Botello Color (U) LT. YELLOW Normal YELLOW [facility] Comment on above: Performed By: #### M G, RENAL, URIC #### [facility] [address] [place] [address] Dr. Tyree Botello Crystals LM Nom (Urine sed) NONE SEEN Normal NONE SEEN [facility] Comment on above: Performed By: #### M G, RENAL, URIC #### [facility] [address] [place] [address] Dr. Tyree Botello Epithelial cells LM Ql (Urine sed) FEW Abnormal NONE SEEN /RARE [facility] Comment on above: Performed By: #### M G, RENAL, URIC #### [facility] [address] [place] [address] Dr. Tyree Botello Glucose Ql (U) Negative Normal NEGATIVE [facility] Comment on above: Performed By: #### M G, RENAL, URIC #### [facility] [address] [address] [address] Tyree Botello Hemoglobin Ql (U) SMALL Abnormal NEGATIVE [facility] Comment on above: Performed By: #### M G, RENAL, URIC #### [facility] [address] [address] [address] Tyree Botello Ketones Ql (U) Negative Normal NEGATIVE [facility] Comment on above: Performed By: #### M G, RENAL, URIC #### [facility] [address] [address] [address] Tyree Botello LEUKOCYTES Negative Normal NEGATIVE [facility] Comment on above: Performed By: #### M G, RENAL, URIC #### [facility] [address] [place] [address] Dr. Tyree Botello MUCOUS NONE SEEN Normal NONE SEEN [facility] Comment on above: Performed By: #### M G, RENAL, URIC #### [facility] [address] [place] [address] Dr. Tyree Botello Nitrite Ql (U) Negative Normal NEGATIVE [facility] Comment on above: Performed By: #### M G, RENAL, URIC #### [facility] [address] [place] [address] Dr. Tyree Botello pH (U) 5.0 [pH] Normal 5-9 [facility] Comment on above: Performed By: #### M G, RENAL, URIC #### [facility] [address] [place] [address] Dr. Tyree Botello RBC 0-2 Normal 0-2 [facility] Comment on above: Performed By: #### M G, RENAL, URIC #### [facility] [address] [place] [address] Dr. Tyree Botello SPEC GRAVITY >=1.030 Abnormal 1.005-<=1. 025 [facility] Comment on above: Performed By: #### M G, RENAL, URIC #### [facility] [address] [place] [address] Dr. Tyree Botello UA PROTEIN >300 Abnormal NEGATIVE/ TRACE [facility] Comment on above: Performed By: #### M G, RENAL, URIC #### [facility] [address] [place] [address] Dr. Tyree Botello Urobilinogen Qn (U) 0.2 {Jennifer'U}/dL Normal 0.2 - 1. 0 [facility] Comment on above: Performed By: #### M G, RENAL, URIC #### [facility] [address] [place] [address] Dr. Tyree Botello WBC 0-2 Abnormal NONE SEEN [facility] Comment on above: Performed By: #### M G, RENAL, URIC #### [facility] [address] [place] [address] Dr. Tyree Botello URIC ACID SERUMon 07-02-2022 Urate [Mass/Vol] 5.8 mg/dL Normal 2.6-6.0 [facility] Comment on above: Performed By: #### M G, RENAL, URIC #### [facility] [address] [place] [address] Dr. Tyree Botello VITAMIN D 25 OHon 07-02-2022 VIT D 25-OH 39.2 ng/mL Normal [facility] Comment on above: Performed By: #### M G, RENAL, URIC #### [facility] [address] [place] [address] Dr. Tyree Botello VIT D RANGES SEE BELOW Normal [facility] Comment on above: Result Comment: <20 ng/mL Vit D deficient 20 - <30 ng/mL Vit D insufficient 30 - 100 ng/mL Vit D sufficient >100 ng/mL Potential Toxicity Performed By: #### M G, RENAL, URIC #### [facility] [address] [place] [address] Dr. Tyree Botello Albumin [Mass/volume] in Bod y fluidOrdered By: Isela Downs on 04-27-2022 Albumin (Body fld) [Mass/Vol] 3.6 g/dL 3.2-5.5 [facility] Albumin [Mass/volume] in Ser um or PlasmaOrdered By: Isela Downs on 04-27-2022 Albumin [Mass/Vol] 3.4 g/dL 2.9-4.4 [facility] Albumin/Protein.total in 24 hour Urine by ElectrophoresisOrdered By: Isela Downs on 04-27-2022 Albumin Elph (24H U) [Mass fraction] 77.3 % . [facility] Alkaline phosphatase [Enzyma tic activity/volume] in Serum or PlasmaOrdered By: Isela Downs on 04-27-2022 ALP [Catalytic activity/Vol] 57 U/L 32-92 [facility] Aspartate aminotransferase [ Enzymatic activity/volume] in Serum or PlasmaOrdered By: Isela Downs on 04-27-2022 AST [Catalytic activity/Vol] 26 U/L 10-42 [facility] Basophils Auto (Bld) [#/Vol] Ordered By: Isela Downs on 04-27-2022 Basophils (Bld) [#/Vol] 0.1 10*3/uL 0.0-0.2 [facility] Basophils/100 WBC Auto (Bld) Ordered By: Isela Downs on 04-27-2022 Basophils/100 WBC (Bld) 0.9 % . [facility] Bilirubin.total [Mass/volume ] in Serum or PlasmaOrdered By: Isela Downs on 04-27-2022 Bilirubin [Mass/Vol] 0.4 mg/dL 0.3-1.2 [facility] Calcium [Mass/volume] in Ser um or PlasmaOrdered By: Isela Downs on 04-27-2022 Calcium [Mass/Vol] 9.6 mg/dL 8.2-10.2 [facility] Carbon dioxide, total [Moles /volume] in Serum or PlasmaOrdered By: Isela Downs on 04-27-2022 CO2 [Moles/Vol] 20.1 mmol/L 22.0-30.[address] [facility] Chloride [Moles/volume] in S mary ann or PlasmaOrdered By: Isela Downs on 04-27-2022 Chloride [Moles/Vol] 101 mmol/L 95-114 [facility] Creatinine and Glomerular fi ltration rate.predicted panel (S/P/Bld)Ordered By: Isela Downs on 02-17-2023 Creatinine [Mass/Vol] 0.90 mg/dL 0.44-1.03 [facility] Eosinophils Auto (Bld) [#/Vo l]Ordered By: Isela Downs on 04-27-2022 Eosinophils (Bld) [#/Vol] 0.2 10*3/uL 0.0-0.45 [facility] Eosinophils/100 WBC Auto (Bl d)Ordered By: Isela Downs on 04-27-2022 Eosinophils/100 WBC (Bld) 1.5 % . [facility] Erythrocyte distribution wid th Auto (RBC) [Ratio]Ordered By: Isela Downs on 04-27-2022 Erythrocyte distribution width (RBC) [Ratio] 13.3 % 11.9-15.3 [facility] Estimated glomerular filtrat ion rate (GFR) non- AmericanOrdered By: Isela Downs on 04-27-2022 GFR/1.73 sq M.predicted among non-blacks MDRD (S/P/Bld) [Vol rate/Area] > 60 mL/Min [facility] Gamma globulin/Protein.total in 24 hour Urine by ElectrophoresisOrdered By: Isela Downs on 04-27-2022 Gamma globulin Elph (24H U) [Mass fraction] 3.7 % . [facility] Globulin Calc (S) [Mass/Vol] Ordered By: Isela Downs on 04-27-2022 Globulin (S) [Mass/Vol] 3.3 g/dL [facility] Glucose [Mass/volume] in Ser um or PlasmaOrdered By: Isela Downs on 04-27-2022 Glucose [Mass/Vol] 327 mg/dL 70-100 [facility] Comment on above: ADA recommended refe rence rangeRandom Glucose Reference Range is dependent on time and content of last meal. Glucose of more than 200 mg/dL in a nonstressed, ambulatory subject supports the diagnosis of Diabetes Mellitus. Hematocrit Auto (Bld) [Volum e fraction]Ordered By: Isela Downs on 04-27-2022 Hematocrit (Bld) [Volume fraction] 45.4 % 34.0-46.4 [facility] Hemoglobin [Mass/volume] in BloodOrdered By: Isela Downs on 04-27-2022 Hemoglobin (Bld) [Mass/Vol] 15.2 g/dL 11.8-15.4 [facility] Immunoglobulin light chains. kappa.free [Mass/volume] in SerumOrdered By: Isela Downs on 04-27-2022 Immunoglobulin light chains.kappa.free (S) [Mass/Vol] 25.4 mg/L 3.3-19.4 [facility] Immunoglobulin light chains. kappa.free/Immunoglobulin light chains.lambda.free [MassOrdered By: Isela Downs on 04-27-2022 Immunoglobulin light chains.kappa.free/Immuno globulin light chains.lambda.free (S) [Mass ratio] 1.62 0.26-1.65 [facility] Comment on above: Performed at: [address] [id number] Director: Duke Peguero PhD, Phone: [phone] Immunoglobulin light chains. lambda.free [Mass/volume] in Serum or PlasmaOrdered By: Isela Downs on 04-27-2022 Immunoglobulin light chains.lambda.free [Mass/Vol] 15.7 mg/L 5.7-26.3 [facility] Leukocytes [#/volume] correc kaykay for nucleated erythrocytes in Blood by Automated counOrdered By: Isela Downs on 04-27-2022 WBC corrected for nucl RBC Auto (Bld) [#/Vol] 11.3 10*3/uL 3.8-11.6 [facility] Lymphocytes Auto (Bld) [#/Vo l]Ordered By: Isela Downs on 04-27-2022 Lymphocytes (Bld) [#/Vol] 3.6 10*3/uL 1.00-4.8 [facility] Lymphocytes/100 WBC Auto (Bl d)Ordered By: Isela Downs on 04-27-2022 Lymphocytes/100 WBC (Bld) 31.7 % . [facility] MCH Auto (RBC) [Entitic mass ]Ordered By: Isela Downs on 04-27-2022 MCH (RBC) [Entitic mass] 30.0 pg 24.7-34.3 [facility] MCHC Auto (RBC) [Mass/Vol]Or dered By: Isela Downs on 04-27-2022 MCHC (RBC) [Mass/Vol] 33.5 g/dL 32.0-35.0 [facility] MCV Auto (RBC) [Entitic vol] Ordered By: Isela Downs on 04-27-2022 MCV (RBC) [Entitic vol] 89.6 fL 80-100 [facility] Monocytes Auto (Bld) [#/Vol] Ordered By: Isela Downs on 04-27-2022 Monocytes (Bld) [#/Vol] 0.5 10*3/uL 0.0-0.8 [facility] Monocytes/100 WBC Auto (Bld) Ordered By: Isela Downs on 04-27-2022 Monocytes/100 WBC (Bld) 4.8 % . [facility] Neutrophils Auto (Bld) [#/Vo l]Ordered By: Isela Downs on 04-27-2022 Neutrophils (Bld) [#/Vol] 6.9 10*3/uL 1.8-7.7 [facility] Neutrophils/100 WBC Auto (Bl d)Ordered By: Isela Downs on 04-27-2022 Neutrophils/100 WBC (Bld) 61.1 % . [facility] No Panel InformationOrdered By: Isela Downs on 04-27-2022 Urine Random Prot Electrophor Note See comment . [facility] Comment on above: Protein electrophore sis scan will follow via computer,mail, or recreation assistant delivery.Performed at: [employer] [facility] [place], [place] [id number] Director: Duke Peguero PhD, Phone: [phone] Estimated GFR () > 60 mL/Min [facility] Comment on above: GFR estimated refere nce range: According to KDOQI guidelines, <60 ml/min/1.73m2 is sufficient to diagnose a patient with chronic kidney disease. Pharmacy Creatinine Clearance (Chem 83.02 [facility] Protein Electrophoresis M-Sarthak Not observed g/dL Not Observed [facility] Protein Electrophoresis Note See comment . [facility] Comment on above: Protein electrophore sis scan will follow via computer,mail, or recreation assistant delivery.Performed at: [facility] [facility] [place], [place] [id number] Director: Duke Peguero PhD, Phone: [phone] Nucleated erythrocytes [Pres ence] in Blood by Automated countOrdered By: Isela Downs on 04-27-2022 Nucleated RBC Auto Ql (Bld) 0.1 /100{WBC} 0-0.5 [facility] Platelet mean volume Auto (B ld) [Entitic vol]Ordered By: Isela Downs on 04-27-2022 Platelet mean volume (Bld) [Entitic vol] 9.5 fL 6.3-10.7 [facility] Platelets Auto (Bld) [#/Vol] Ordered By: Isela Downs on 04-27-2022 Platelets (Bld) [#/Vol] 257 10*3/uL 150-450 [facility] Potassium [Moles/volume] in Serum or PlasmaOrdered By: Isela Downs on 04-27-2022 Potassium [Moles/Vol] 4.3 mmol/L 3.5-5.1 [facility] Protein [Mass/volume] in Ser um or PlasmaOrdered By: Isela Downs on 04-27-2022 Protein [Mass/Vol] 6.9 g/dL 6.1-7.9 [facility] Protein [Mass/Vol] 6.8 g/dL 6.0-8.5 [facility] Protein [Mass/volume] in Uri neOrdered By: Isela Downs on 04-27-2022 Protein (U) [Mass/Vol] 183.6 mg/dL Not Estab. F [facility] Protein.monoclonal/Protein.t otal in 24 hour Urine by ElectrophoresisOrdered By: Isela Downs on 04-27-2022 Protein.monoclonal Elph (24H U) [Mass fraction] Not observed % Not Observed [facility] RBC Auto (Bld) [#/Vol]Ordere d By: Isela Downs on 04-27-2022 RBC (Bld) [#/Vol] 5.07 10*6/uL 3.60-5.00 [facility] Serum globulin measurement ( mass/volume)Ordered By: Isela Downs on 04-27-2022 Globulin (S) [Mass/Vol] 3.4 g/dL 2.2-3.9 [facility] Serum or plasma alanine barroso otransferase measurement without P-5'-P (enzymatic activiOrdered By: Isela Abramsse on 04-27-2022 ALT No additional P-5'-P [Catalytic activity/Vol] 36 U/L 10-60 [facility] Serum or plasma albumin/glob ulin mass ratioOrdered By: Isela Downs on 04-27-2022 Albumin/Globulin [Mass ratio] 1.1 {ratio} [facility] Albumin/Globulin [Mass ratio] 1.0 {ratio} 0.7-1.7 [facility] Serum or plasma alpha 1 glob ulin measurement by electrophoresis (mass/volume)Ordered By: Isela Downs on 04-27-2022 Alpha 1 globulin Elph [Mass/Vol] 0.3 g/dL 0.0-0.4 [facility] Serum or plasma alpha 2 glob ulin measurement by electrophoresis (mass/volume)Ordered By: Isela Downs on 04-27-2022 Alpha 2 globulin Elph [Mass/Vol] 1.6 g/dL 0.4-1.0 [facility] Serum or plasma anion gap de terminationOrdered By: Isela Downs on 04-27-2022 Anion gap [Moles/Vol] 18.2 mmol/L 6.0-15.0 [facility] Serum or plasma beta globuli n measurement by electrophoresis (mass/volume)Ordered By: Isela Downs on 04-27-2022 Beta globulin Elph [Mass/Vol] 1.1 g/dL 0.7-1.3 [facility] Serum or plasma [id number] globulin measurement (mass/volume)Ordered By: Isela Downs on 04-27-2022 [id number] [Mass/Vol] 1.9 ug/mL 0.6-2.4 [facility] Comment on above: Siemens Immulite 200 0 Immunochemiluminometric assay (ICMA)Values obtained with different assay methods or kits cannotbe used interchangeably. Results cannot be interpreted asabsolute evidence of the presence or absence of malignantdisease.Performed at: [address] [id number] Director: Loni Olvera MD, Phone: [phone] Serum or plasma gamma globul in measurement by electrophoresis (mass/volume)Ordered By: Isela Downs on 04-27-2022 Gamma globulin Elph [Mass/Vol] 0.5 g/dL 0.4-1.8 [facility] Sodium [Moles/volume] in Ser um or PlasmaOrdered By: Isela Downs on 04-27-2022 Sodium [Moles/Vol] 135 mmol/L 136-146 [facility] Urea nitrogen [Mass/volume] in Serum or PlasmaOrdered By: Isela Downs on 04-27-2022 Urea nitrogen [Mass/Vol] 14 mg/dL 9-23 [facility] Urine alpha 1 globulin/total protein by electrophoresisOrdered By: Isela Downs on 04-27-2022 Alpha 1 globulin Elph (U) [Mass fraction] 2.6 % . [facility] Urine alpha 2 globulin/total protein ratio by electrophoresisOrdered By: Isela Downs on 04-27-2022 Alpha 2 globulin Elph (U) [Mass fraction] 4.2 % . [facility] Urine beta globulin measurem ent by electrophoresis (mass/volume)Ordered By: Isela Downs on 04-27-2022 Beta globulin Elph (U) [Mass/Vol] 12.2 % . [facility] WBC Auto (Bld) [#/Vol]Ordere d By: Isela Downs on 04-27-2022 WBC (Bld) [#/Vol] 11.3 10*3/uL 3.8-11.6 [facility] PARATHYROID HORMONE- RELATED PEPTIDEon 04-20-2022 PTHrP (PTH-Related Peptide) <2.0 Normal [facility] Comment on above: Result Comment: This test was developed and its performance characteristics determined by [employer]. It has not been cleared or approved [...] By: #### M G, RENAL, URIC #### [facility] [address] [place] [address] Dr. Tyree Botello IMMUNOFIXATION (CHERRI), URINEo n 04-16-2022 CHERRI Interpretation:U Comment Normal [facility] Comment on above: Result Comment: No m onoclonality detected. Performed By: #### M G, RENAL, URIC #### [facility] [address] [address] [address] Tyree Botello PROTEIN ELECTROPHERESIS URIN E RANDOMon 04-16-2022 Albumin, U 80.3 % Normal [facility] Comment on above: Performed By: #### M G, RENAL, URIC #### [facility] [address] [address] [address] Tyree Botello Alpha-1 Globulin U 4.3 % Normal [facility] Comment on above: Performed By: #### M G, RENAL, URIC #### [facility] [address] [place] [address] Dr. Tyree Botello Alpha-2 Glubulin U 2.9 % Normal [facility] Comment on above: Performed By: #### M G, RENAL, URIC #### [facility] [address] [address] [address] Tyree Botello Beta Globulin, U 10.2 % Normal [facility] Comment on above: Performed By: #### M G, RENAL, URIC #### [facility] [address] [address] [address] Tyree Botello Gamma Globulin U 2.2 % Normal [facility] Comment on above: Performed By: #### M G, RENAL, URIC #### [facility] [address] [address] [address] Tyree Botello M-Sarthak, % Not Observed Normal Not Observed [facility] Comment on above: Performed By: #### M G, RENAL, URIC #### [facility] [address] [address] [address] Tyree Botello PDF . Normal [facility] Comment on above: Performed By: #### M G, RENAL, URIC #### [facility] [address] [address] [address] Tyree Botello Please note: Comment Normal [facility] Comment on above: Result Comment: Prot ein electrophoresis scan will follow via computer, mail, or recreation assistant delivery. Performed By: #### M G, RENAL, URIC #### [facility] [address] [place] [address] Dr. Tyree Botello Protein (U) [Mass/Vol] 181.5 mg/dL Normal Not Estab. T [facility] Comment on above: Performed By: #### M G, RENAL, URIC #### [facility] [address] [place] [address] Dr. yTree Botello VIT D 1 25 DIHYDROXYon 04-14 Calcitriol(1,25 di-OH Vit D) 12.5 pg/mL Critically low 24.8-81.5 [facility] Comment on above: Performed By: #### M G, RENAL, URIC #### [facility] [address] [place] [address] Dr. Tyree Botello IMMUNOFIXATION(CHERRI),PROTEIN ELEC(PE),FREon 04-13-2022 Albumin [Mass/Vol] 3.5 g/dL Normal 2.9-4.4 [facility] Comment on above: Performed By: #### I FEPEFL #### [facility] [address] [place] [address] Dr. Tyree Botello Albumin/Globulin [Mass ratio] 1.1 {ratio} Normal 0.7-1.7 [facility] Comment on above: Performed By: #### I FEPEFL #### [facility] [address] [place] [address] Dr. Tyree Botello Lgnvy-2-Fomtaiqg 0.2 g/dL Normal 0.0-0.4 [facility] Comment on above: Performed By: #### I FEPEFL #### [facility] [address] [place] [address] Dr. Tyree Botello Skhkz-5-Gnzyvvgb 1.5 g/dL Critically high 0.4-1.0 [facility] Comment on above: Performed By: #### I FEPEFL #### [facility] [address] [place] [address] Dr. Tyree Botello Beta Globulin 1.3 g/dL Normal 0.7-1.3 [facility] Comment on above: Performed By: #### I FEPEFL #### [facility] [address] [place] [address] Dr. Tyree Botello Free Oyehut Lt Chains,S 25.5 mg/L Critically high 3.3-19.4 [facility] Comment on above: Performed By: #### I FEPEFL #### [facility] [address] [address] [address] Tyree Botello Free Lambda Lt Chains,S 15.9 mg/L Normal 5.7-26.3 [facility] Comment on above: Performed By: #### I FEPEFL #### [facility] [address] [place] [address] Dr. Tyree Botello Gamma Globulin 0.5 g/dL Normal 0.4-1.8 [facility] Comment on above: Performed By: #### I FEPEFL #### [facility] [address] [place] [address] Dr. Tyree Botello Globulin (S) [Mass/Vol] 3.5 g/dL Normal 2.2-3.9 [facility] Comment on above: Performed By: #### I FEPEFL #### [facility] [address] [place] [address] Dr. Tyree Botello Immunofixation Result, Serum Comment: Normal [facility] Comment on above: Result Comment: Pres ence of monoclonal protein is unclear at this time. Suggest repeat in 3 to 6 months if clinically indicated. Performed By: #### I FEPEFL #### [facility] [address] [place] [address] Dr. Tyree Botello Immunoglobulin A, Qn, Serum 266 mg/dL Normal 87-352 [facility] Comment on above: Performed By: #### I FEPEFL #### [facility] [address] [place] [address] Dr. Tyree Botello Immunoglobulin G, Qn, Serum 517 mg/dL Critically low 586-1602 [facility] Comment on above: Performed By: #### I FEPEFL #### [facility] [address] [place] [address] Dr. Tyree Botello Immunoglobulin M, Qn, Serum 118 mg/dL Normal 26-217 [facility] Comment on above: Performed By: #### I FEPEFL #### [facility] [address] [place] [address] Dr. Tyree Botello Oyehut/Lambda Ratio, S 1.60 Normal 0.26-1.65 [facility] Comment on above: Performed By: #### I FEPEFL #### [facility] [address] [place] [address] Dr. Tyree Botello M-Sarthak Not Observed Normal Not Observed [facility] Comment on above: Performed By: #### I FEPEFL #### [facility] [address] [place] [address] Dr. Tyree Botello PDF . Normal [facility] Comment on above: Performed By: #### I FEPEFL #### [facility] [address] [place] [address] Dr. Tyree Botello Please note: Comment Normal [facility] Comment on above: Result Comment: Prot ein electrophoresis scan will follow via computer, mail, or recreation assistant delivery. Performed By: #### I FEPEFL #### [facility] [address] [place] [address] Dr. Tyree Botello Protein [Mass/Vol] 7.0 g/dL Normal 6.0-8.5 [facility] Comment on above: Performed By: #### I FEPEFL #### [facility] [address] [place] [address] Dr. Tyree Botello PTH INTACTon 04-06-2022 PTH, Intact 9 pg/mL Critically low 15-65 [facility] Comment on above: Performed By: #### P THINT #### [facility] [address] [place] [address] Dr. Tyree Botello HEMOGRAM AND PLATELon 2022 Hematocrit (Bld) [Volume fraction] 51.5 % Critically high 36.0-48.0 [facility] Comment on above: Performed By: #### M G, RENAL, URIC #### [facility] [address] [place] [address] Dr. Tyree Botello Hemoglobin (Bld) [Mass/Vol] 16.2 g/dL Critically high 12.0-16.0 [facility] Comment on above: Performed By: #### M G, RENAL, URIC #### [facility] [address] [place] [address] Dr. Tyree Botello MCH (RBC) [Entitic mass] 30.1 pg Normal 26.7-34.0 [facility] Comment on above: Performed By: #### M G, RENAL, URIC #### [facility] [address] [place] [address] Dr. Tyree Botello MCHC (RBC) [Mass/Vol] 31.5 g/dL Normal 29.9-35.2 [facility] Comment on above: Performed By: #### M G, RENAL, URIC #### [facility] [address] [place] [address] Dr. Tyree Botello MCV (RBC) [Entitic vol] 95.7 fL Normal 81.0-99.0 [facility] Comment on above: Performed By: #### M G, RENAL, URIC #### [facility] [address] [place] [address] Dr. Tyree Botello PLT 280 103/ul Normal 150-450 [facility] Comment on above: Performed By: #### M G, RENAL, URIC #### [facility] [address] [place] [address] Dr. Tyree Botello RBC 5.38 106/ul Normal 4.20-5.40 [facility] Comment on above: Performed By: #### M G, RENAL, URIC #### [facility] [address] [place] [address] Dr. Tyree Botello WBC 11.7 103/ul Critically high 4.0-11.0 [facility] Comment on above: Performed By: #### M G, RENAL, URIC #### [facility] [address] [place] [address] Dr. Tyree Botello MAGNESIUMon 04-05-2022 Magnesium [Mass/Vol] 1.1 mg/dL Critically low 1.8-2.4 [facility] Comment on above: Performed By: #### M G, URIC, RENAL #### [facility] [address] [address] [address] Tyree Botello RENAL FUNCTION PANELon 04-05 Albumin [Mass/Vol] 3.5 g/dL Normal 3.4-5.0 [facility] Comment on above: Performed By: #### M G, URIC, RENAL #### [facility] [address] [address] [address] Tyree Botello Calcium [Mass/Vol] 11.5 mg/dL Critically high 8.5-10.1 [facility] Comment on above: Performed By: #### M G, URIC, RENAL #### [facility] [address] [place] [address] Dr. Tyree Botello Chloride [Moles/Vol] 95 mmol/L Critically low 98-107 [facility] Comment on above: Performed By: #### M G, URIC, RENAL #### [facility] [address] [address] [address] Tyree Botello CO2 [Moles/Vol] 28.3 mmol/L Normal 21.0-32.0 [facility] Comment on above: Performed By: #### M G, URIC, RENAL #### [facility] [address] [address] [address] Tyree Botello Creatinine [Mass/Vol] 1.17 mg/dL Critically high 0.55-1.02 [facility] Comment on above: Performed By: #### M G, URIC, RENAL #### [facility] [address] [address] [address] Tyree Botello EGFR-AF [place] 59 mL/min/1.73m2 Critically low >=60 [facility] Comment on above: Performed By: #### M G, URIC, RENAL #### [facility] [address] [address] [address] Tyree Botello EGFR-NON AF [place] 49 mL/min/1.73m2 Critically low >=60 [facility] Comment on above: Performed By: #### M G, URIC, RENAL #### [facility] [address] [address] [address] Tyree Botello Glucose [Mass/Vol] 229 mg/dL Critically high 74-106 [facility] Comment on above: Performed By: #### M G, URIC, RENAL #### [facility] [address] [place] [address] Dr. Tyree Botello Phosphate [Mass/Vol] 3.0 mg/dL Normal 2.6-4.7 [facility] Comment on above: Performed By: #### M G, URIC, RENAL #### [facility] [address] [place] [address] Dr. Tyree Botello Potassium [Moles/Vol] 3.5 mmol/L Normal 3.5-5.1 [facility] Comment on above: Performed By: #### M G, URIC, RENAL #### [facility] [address] [place] [address] Dr. Tyree Botello Sodium [Moles/Vol] 136 mmol/L Normal 136-145 [facility] Comment on above: Performed By: #### M G, URIC, RENAL #### [facility] [address] [place] [address] Dr. Tyree Botello Urea nitrogen [Mass/Vol] 20.0 mg/dL Critically high 7.0-18 .0 [facility] Comment on above: Performed By: #### M G, URIC, RENAL #### [facility] [address] [place] [address] Dr. Tyree Botello UA RANDOM W/MICROSCOPICon BACTERIA TRACE Abnormal NONE SEEN [facility] Comment on above: Performed By: #### U AMIC #### [facility] [address] [place] [address] Dr. Tyree Botello Bilirubin Ql (U) SMALL Abnormal NEGATIVE [facility] Comment on above: Performed By: #### U AMIC #### [facility] [address] [place] [address] Dr. Tyree Botello CAST SEEN Abnormal NONE SEEN [facility] Comment on above: Performed By: #### U AMIC #### [facility] [address] [address] [address] Tyree Botello Clarity (U) CLEAR Normal CLEAR [facility] Comment on above: Performed By: #### U AMIC #### [facility] [address] [address] [address] Tyree Botello Color (U) YELLOW Normal YELLOW [facility] Comment on above: Performed By: #### U AMIC #### [facility] [address] [address] [address] Tyree oBtello Crystals LM Nom (Urine sed) NONE SEEN Normal NONE SEEN [facility] Comment on above: Performed By: #### U AMIC #### [facility] [address] [place] [address] Dr. Tyree Botello Epithelial cells LM Ql (Urine sed) MODERATE Abnormal NONE SEEN /RARE [facility] Comment on above: Performed By: #### U AMIC #### [facility] [address] [address] [address] Tyree Botello Glucose Ql (U) 500 mg/dl Abnormal NEGATIVE [facility] Comment on above: Performed By: #### U AMIC #### [facility] [address] [address] [address] Tyree Botello Hemoglobin Ql (U) MODERATE Abnormal NEGATIVE [facility] Comment on above: Performed By: #### U AMIC #### [facility] [address] [address] [address] Tyree Botello HYALINE CAST FEW Normal [facility] Comment on above: Performed By: #### U AMIC #### [facility] [address] [address] [address] Tyree Botello Ketones Ql (U) TRACE Abnormal NEGATIVE [facility] Comment on above: Performed By: #### U AMIC #### [facility] [address] [address] [address] Tyree Botello LEUKOCYTES Negative Normal NEGATIVE [facility] Comment on above: Performed By: #### U AMIC #### [facility] [address] [address] [address] Tyree Botello MUCOUS NONE SEEN Normal NONE SEEN [facility] Comment on above: Performed By: #### U AMIC #### [facility] [address] [address] [address] Tyree Botello Nitrite Ql (U) Negative Normal NEGATIVE [facility] Comment on above: Performed By: #### U AMIC #### [facility] [address] [place] [address] Dr. Tyree Botello pH (U) 5.5 [pH] Normal 5-9 [facility] Comment on above: Performed By: #### U AMIC #### [facility] [address] [place] [address] Dr. Tyree Botello RBC 2-5 Abnormal 0-2 [facility] Comment on above: Performed By: #### U AMIC #### [facility] [address] [place] [address] Dr. Tyree Botello SPEC GRAVITY >=1.030 Abnormal 1.005-<=1. 025 [facility] Comment on above: Performed By: #### U AMIC #### [facility] [address] [place] [address] Dr. Tyree Botello UA PROTEIN >300 Abnormal NEGATIVE/ TRACE [facility] Comment on above: Performed By: #### U AMIC #### [facility] [address] [place] [address] Dr. Tyree Botello Urobilinogen Qn (U) 0.2 {Jennifer'U}/dL Normal 0.2 - 1. 0 [facility] Comment on above: Performed By: #### U AMIC #### [facility] [address] [place] [address] Dr. Tyree Botello WBC 2-5 Abnormal NONE SEEN [facility] Comment on above: Performed By: #### U AMIC #### [facility] [address] [place] [address] Dr. Tyree Botello URIC ACID SERUMon 04-05-2022 Urate [Mass/Vol] 8.0 mg/dL Critically high 2.6-6.0 [facility] Comment on above: Performed By: #### M G, URIC, RENAL #### [facility] [address] [address] [address] Tyree Botello URINE T PROTEIN CREAT RATIOo n 04-05-2022 UR PROT CREAT RAT 0.66 Normal [facility] Comment on above: Performed By: #### M G, RENAL, URIC #### [facility] [address] [place] [address] Dr. Tyree Botello UR TOTAL PROTEIN >200.0 Critically high <=12.0 [facility] Comment on above: Performed By: #### M G, RENAL, URIC #### [facility] [address] [place] [address] Dr. Tyree Botello URINE CREAT 304.32 mg/dL Critically high 20.00-300. 00 [facility] Comment on above: Performed By: #### M G, RENAL, URIC #### [facility] [address] [place] [address] Dr. Tyree Botello VITAMIN D 25 OHon 04-05-2022 VIT D 25-OH 49.7 ng/mL Normal [facility] Comment on above: Performed By: #### M G, RENAL, URIC #### [facility] [address] [place] [address] Dr. Tyree Botello VIT D RANGES SEE BELOW Normal [facility] Comment on above: Result Comment: <20 ng/mL Vit D deficient 20 - <30 ng/mL Vit D insufficient 30 - 100 ng/mL Vit D sufficient >100 ng/mL Potential Toxicity Performed By: #### M G, RENAL, URIC #### [facility] [address] [place] [address] Dr. Tyree Botello SCREENING MAMMOGRAM W/CHASE, BILATERAL*on [...] VERY IMPORTANT TO YOUR HEALTH. THE CURRENT [place] [employer] GUIDELINES RECOMMENDS ANNUAL MAMMOGRAPHY BEGINNING AT AGE 40 THIS FACILITY USES A REMINDER SYSTEM TO ENSURE ALL PATIENTS RECEIVE REMINDER NOTIFICATIONS AT THE APPROPRIATE TIME BASED ON THE RECOMMENDATIONS OF THIS EXAM. Report reported and signed by Rich Soriano on 03/13/2022 0925 [facility] [employer] Coding Summary.on 02-15-2022 Coding Summary. CD:[id number] Gh0bW w+PGhlYWQ+UU1DIUXyR55jzSI nxG7SD7yRXL5RGMHETQSXED3Y FM9myEM4MOnuV6NaxsSl VrxfuHFgKL12MKh7QOI8lWzpS CdwlM0oqDRfW7d5VkNgTQ05lL 45FEbhFLNcGmV0SrCroaxflYD y A3gaMbMtmKWdOqe+PHRhYmxlI HdpZHRoPScxMDAlJyBzdHlsZT 1iAl5hZUObDMDuvIxyzUNkErX j w4zkAHQnUOwsKI0mhBuxL6Qis EK4YPMxi2v3Uo45iES+PHRkIH A5rDxeVBkes475MnUti4bgNUY 3 gHYmCNxwGLK4D08da8F7QDSpF DKzBPY6oUK9gK6wzEqxwhrbW2 XnuLHvQjU8AHK3gWOktY1gzEf n ggmvnD4xQny+T95SYJ0QZEWDU B2NLoa7O4BqOveshTJ+PC90YW NrNP71wGMyeCOdc7vwcGb3GzR w CELkDGW5lKtuJTlxf4PuVHCaY 71epOJsf2X3MJEkaHicuDCjYj YrnKP7xW4lBUdpqjdfi8eknho n Pwjcz0cmtn02fM49D26eHEpxB JSyCVV6XURvHIOljIflpw9rrS 9wIi8+KLnfc5vaf6ythAa7PiJ w DQFrojEneYorPEJ0a5KuWh66I 9GlfKtfu9ByVnd7pq39fFOpp6 V8tPZ3ZYpcMGAyuV1yUNhrGgO 6 WMUtGtHbpZ67nNOnOEpgUq1ip RswdZorOE0lQAPecoeeINSjgS 0xDDJxnUAzfZliHS2fUFNdqwt m p749LvLiHLJ9MAOzjZDzX3Plw I7xLcVyZSOuFRXyO1VrpRCaER rtH455PSmmIuH7TQUjlhExV1M s RYEncRujTdD3f1P9Mn1Rs0Bpk apjDNY5CVtiLUUlViJ2JvZzGm A0I7TyHqi4VQZejCrlNP7zZ3B h GVDsqjdicnptyWH6HLEkUKDmt V17oEVvJSxjOf6cf2V8b381CS ChNEZsqT84Yt2toJipECMhzCM U vT8vijbxn9eooskuGtAhCHNtW Iz5CRi8EBVqqHkcUoBhCOB2Sh H0FQB7wCWjeR6huKaypcbvfW0 w Oyc+M46pdP5wMRU4ZZC3bihkS EUosrGpPN09QK86S4JrYeqdnN FibGU+ZVEkfrSdkMzsHV7mMgL j r0fwo9VoOHupA2UiTTSjFKgeD oa5BQRhLMZ1nTX4qG4jDAJdBT hqh4Q3yHA4N0DpipItxd7oa9m s RALrFZksK15qpTYqx5Y2XRRpb ME1MBEspHjmOiQykN43Dot+PG YvsBbay9VfVhwgv4twx1bmeGn 9 QgHgUYUytyPeiPzxTGU3k0JfA t96I91uFSvrHHDtBPExLWHwAN QqiRqlgp4emL5xUx7+PGNvbCB 3 sAJ4hK2vDGRrNeU3QLgaE669T tNajTYxUybwe5jib6kuzIu5Ey XiNUTfxlLjbCbvOSP3i0MjQf0 8 X44rWMfzBUNpGNDhCINvMVLuy Yxpbt8juD4dOf6+ZF5hp6kwtt 83kV86fQW+SUKwWQL8jWquYVv w WDVdiN5kANomWlW1MYNlLjFwp C95mQWuUEmpFa5dxSkfzMgjJG 1zLOWnajkzk368JaCkd0rfKHU w aUQyFAruLXY5U68tg6O7FMZrV FOkVQO8kEZ1wD8nrUdlmxeftH ZfqZxkwuLkrNmxEXnlFIbcQ64 6 IHRvcDsnPlBhdGllbnQgTmFtZ Fy2X8WjQef6QWMnaOznGN6ymX ZuGInlNd0sdSjjxLudHN3zOLJ p ipcjj199WzRdv2jjJBYvtPFuG UanANC5F96ro3B7PBFvGOVnCF W3fDR8uT3jiOfxrzyowEWvkVh g wqZiqNquTYznGNwrQ625KKHjj ZhuPhKfvqUjEQFprKP6GG13EA 13lRGnc2Q6kIT0R2DqQVYvejx t mgzylWK4MEVuIDUvlK90Wa3cr JbeLv1gCGRiNGY9ZGYbeNTeY0 XxkS5gAzZnGYKcOTShE8PzjFJ t SAuqZ599DEegWaY4MZUuliTjN 2PmOGWsnSjqYqP9c0A4Eu1PE7 J8XA14SQ90kYCid0K7cDI0K7T h BXWuhhptzlfqlJT1ZGFnNZUeh R71Fs4wyLfkXx7nSZZcSSF2BL EcsEVfE1DqrX1tSzDpGWUcQZZ w K5PelMBfJPkaK731HMsdTfG8D DUkhgNgE5WpNTFrmEqoOlZ1n6 W1Yf3YKDr2MO07PX62hDQas7N 5 zUW8R9RbMYYbmqumbajnyDR2L MTpITGkaQ41Wq7okMbyHg8jVC KkDDF6ROJupDLwN2NbnL3aTsR j GRMlMDRkJ6BrbNKyHKqaG591X BqbTkH3YLDquvYkL1HgBYHbqE owKiK6v0B4Jh5BLPXzIC55OXB 5 bXE0OV19JP40S3NxRwpvrUHpy +PHRhYmxlIHdpZHRoPScxMD LsAcXdbSpiVR7wWj2oOAOiGCE v rMgboOOzPmYgq9aiPHJpRZdvB Q1moCgcD9AlsJD3EAUil9m6Kv 30S12uJ5DkiSL+KSAslRZ0iIL 0 zC3rUoZtBvP3TTarE840BuEpx CZhUkzby5qau6tfwWa1IhV1IQ YalnUpeDdmSCQ2q2DgTn03U82 s IHdpZHRoPSIxNSUiIHZhbGlnb w0wbB6hMq8+KULecIB7vAJ0rN 9aYtKbCaQ4JYzaG876IdQdaZH v Egzmi6ayi4xtmUy0UgDaKUAsy fUzjGqoCID1y9ThDe39H6ZxtW sls3MbNbe0gl57gEPhj3I7lGD 9 M0YqBTTzcyumnYSdiFnsXT7eQ DHqjaguQWRkeC2cWHVfJ2a8Uf NiLnF7PYxlP6MpisM2ZBCeoAN g KJnrINA0J01hq6A1KDNvKHCwP IB0lIM6kQ4rgIorqipzaNBztK egrnDvjTcoFJhtGGeeQ636BKF v qYqdPVItbX2wUPNetMNvbRgzE L3aCGVxdtvsUxZDX4pKHUGxPH xPVUVMTEEgTDwvdGQ+PHRkIHN 0 iFzpDAieBHIyjC5lWOCfR2a8Y nFeIeT7NPbcP6BbBCFjcdlfBo 20jP9vFwDmWaK8DApwD3LjbmV 6 MEPorDRmTEviZTR1P02bx9Y1R OKhTXCvRKQ9yEC0xR2xmHmjzs ogbGVmdDsgdmVydGljYWwtYWx p Z680IICumKjuHbKuEvR7LbZ6M cG7Y3WyEip2OOJlvMcmSW8vqW YxBJjpTx7erZgagWozIJ4bKSY p czjeLAHbxJ0aLXFxnXIbqEqkJ W1xORYjuwhmi778RaAqSJX3AW NhgDCdA1GywA1rQqWlVGFmEAK w T2DygWIoBLewC953GRhcIwG9N IZccvSsB8PoSQYkeSybJxR0l6 H5Sy50PELCZLLqpyufyVH+PHR k ERN5zWgeVTdkPGUtgV8eZYBsE 4x9FoHlBbC3QJlsX8VaXQQibj drKq90oJ2sUmBuRjJ7ILzuH2E v jaE1HXNnjHGxCDnbHDA8V34hq 6E5ONDgQZEhHCG1cSN9wW0jrR lnbjogbGVmdDsgdmVydGljYWw t CAjzU148FAEoeNshUpXlmDFsE TwvdGQ+GUVvIEP0pAxhLBwwUB JrxZ5sRHIsO3z9OhDzAhD5WDv u H4RdZFMlfcxzXn86rN8xIqWyX nO2OXylL7KuntI1RQKdbJFkVR tlBHQ1H77ro4D7LDIsOUInJEY 7 uLH3yZ6waTxfkvmuiUEpzYrmw fUmiSxyMXodZAnvY383WYJoaY qkKygdScVAgd4dYB0hWoufkZW + SZ76me27H9JyMkiuJbm3PSQmT DZ1sZQ0nR7kJCPoHTywi7N7cB W8U8RzztMdji1ns4vrJQHnQBv g I07xuDIei5I3FKDzjYW0GXCnh LmnAhSyiY49Apc+PGNvbGdyb3 RxHcsgp0azp8inqQf5QwVmYCW g kwIzxXrsFRK6u3SrOj05K70xQ HdpZHRoPSIzMCUiIHZhbGlnbj 5mkZ5xDr6+JVLipLI5mZX1yZ4 i GhWpIvU1XAllC282WjKkpQExS yssw8cmw5pvnHp9HzIjHHOiug XkuEvsPMO6j6CeNp54X8QzeNl y y3EsIom7ne45tGHbt7G9yKQ6A 7PiCBRvfzjgmMMmjSvzDJ2zLV MvdfsiJRKarR6nBPHhP6v8BwK w LoN8HYfgF7LcoiO5CINwqVIaH JMocBTMtH8whhrfm5kmbdeoVs PgFCApSWt5UNd1QLAnmBmzQnL s BIE5OkK0GIK4gGSwdS0ioDwim ngczS3cHpx+STw5d5nyvHYiFH 6feUZ5OI11UU95hOFdh6A3rNS 9 G9XxOLBdectvmbluoMA1RBXqA DDcfM96Hf0gaDobOo6aKHChJL P7LFQrnECeA6RlqS2zEvAwYGF w DMMnM8ZthVGlGFxjN058YLmpQ gV6ROKemkOqH6WrELIxcRvyQu S8u3L8Bb2FEQ66QM28FI88wHG g x8M7mBW5A4GgTKQnwefeywoyd YK4SVQwHQOjcK42Yx0akScgCm 3mCIDzZNB6COIbaHFzZ4TbhL7 y AtFlJXVaIXRzE1UwkDFzVCdmO 390PTayYeY3GOWkgcDoZ2EaTU EfcCeaYoD5d7L2Iw1HSd93OR9 0 SW85lWMlc5O1nQK9W4AeMGTnz jickxsadXK0ROYdOFUvbX72Qy 9xuMnoKe4hHTRuOBS4AXXqxLH z Y4NihV8pDnIdFDGiCMDdH5Nkw LBxACidU966VSbgUqT5TAWsjl NeI3KdWATrdIubCoF8y3D7Rz8 Q KBpalwy8I5DgFuodhQP+PC90Y PVxUF22hTQaiHUdl9nlfWt5Bx CqMEWfSXN6mSmoVSdzy6HeDHY t Y29s (more content not included)... Normal [facility] Coding Summary.on 02-07-2022 Coding Summary. [id number] Gh0bW w+PGhlYWQ+CA9KIYJfC20acHO edJ4FD3oOCY9DGYXFODHQML5A TQ3foLJ2MXvpM6ZjlhQt SrlreSUpHG40AGo2ZBK3pZswK BxlsK4bfWHqR2y4GfNdWM73wY 62CPefBTBiWgT4QcKlbifwiUD y L2dbXlXmwRVcMze+PHRhYmxlI HdpZHRoPScxMDAlJyBzdHlsZT 2mVz6yWIBaPLGeuEpcaDUcKsO j r3soXXZiBFzsMP4hmLtbP4Cnp RT7XFPlr0u7Qj65mSC+PHRkIH D0xOdtXHmgs728RrWor7qfPPL 3 kHGqOKzaAYO7E60kl4A7DIAwU GBbLBD0kCO9zQ6crNxfgqqzY9 OlbCJnKuM1UWR8uDTxdV4umIg n dcgfoZ1zViv+D08ZOK3GEQTVX W0UXot4O4VhCnlriPU+PC90YW MlPT55bBSkmCJxi8ggfUb8LeU w FDUgRTJ7yEspXEcia2NdZKLoQ 46avRFzn3Q4MQXssKyegERxJg BprXW7zH5lWRbohvupp1esinz n Iorvj0tyrl79lG10I33aBTwzT FDdUKP8XANzDHPunOpnxk0xnF 9wIi8+ABida4tsv4ciuIo6KmF w KBClprGnlYbePJG6i4MuXk40J 5LhoWmxd8ZlQvl7wp59jSWoj3 E0oHE1ZZtvNKNhyY6jLBsmEjX 6 XPMoVzTmxC69gQMaGZphUk3kx LqdyNikAI7sNOOgbyzyLAQoyR 0lNEOqaWCkeHyjWV9hLYYlrqx m m446TsCrTIR6OFKmbPOpP1Gfd N9wVxTnQNKbSLKcV4BsfDTwZC ayZ154FCtrBoG9RMShvnBdH2G s ZCBrfPyrBzT0n6G7Sw0Ob2Lpl qhiKIO9DVrsCBAaSkJdPoUcTh B3A2OnJab0QHZplJriYB7uM6E h OOUxsfbmwwhgzPQ7TGLeYGQer I45uGKyULohOs2wf3B4i220ON RbHKWbqN51Dg7erDjuRHKdoZG U bX2iluxkg4lcudapFzLzLXDkM Wf3ZHb1HWVphHllNeAbAOA5Hq W0EID2aRXiqR5ydCohbdbeuG3 w Oyc+H00djY1sKPH2JQF2krekX LZelsIpER54GN57Y5LwGxtbtT FibGU+YHLcjsPmzQgdRV1jQaR j x7zgb4TmTYfsL2GqOSHhJBxoZ oj3QPRlEXI5yID6qB5kTIMcPL zfw3X1eCO7L2JhlbUsra2ff6e s XGWtIWarT17vmPDwh1R2GCIib SY7JNPmeWkiGiSsdE88Axt+PG LlmBgpo2UnMkyja5htb9uhtOx 9 EqCfRMMrbqXkhCxlXHQ9u1ErN e59V87bNMafTMLcTGJfWIMhLB NccSxkbi7nfY9pPz8+PGNvbCB 3 vNV3dX0lDCXjHhB8OPgnT447Z fLayMFnKjscs7vng3frvZd0Bp SzGERdnuUesPpnMJN7y5UhSn0 8 A90xFNezIJLbFSFdATZnNCZzw Jyelu9fqO1eVt3+IL1zm0atnc 88yP66tWA+PLSvZPA5aZmyOUu w AYCxvZ7nDMqbVaK1YAKwFzIik F87fIZiPRvuId2liKkufOdtMR 4aKXCnypkzm234GbQgd6svYBH w gSQgEEulJVK3Y13od6Y1DDVsQ OYcYJH2hWS6bZ7uwErfuzmfcZ JsaNeiuhLouMfaXRbwVOlvN56 6 IHRvcDsnPlBhdGllbnQgTmFtZ Cd5K5AnFop4ECDziTvsVA4laV GjGLyaIg9rhEkjyNdqXB0jMTP p hwoiu915ObLyh9mdUVWlfBXbL FdbOLR7N55bs9X1XRBnQJHpHC N4kJA7hS2skXryrfphkSRfsOf g neVwrDyeGSxwNMgkI011EUZfa NivDgGoqdHrXAOriWW0AK18MH 01nQAyu5B1cKR0L0LcLYXycyj t xxhmiJW5QNKoSDGhsZ43Rx7oc VsxLv7pJXBeKNQ8NHHtdBXbW8 ZpbB9lSwInHSTbLTIoU3AwwNK t BZijE505AUyvBbN0KEAevoMdQ 5OkJWDgzUfdYhX4g3Y7Ny7SO0 Q4BY99YU07xEAug9P4yKP9Y2O h ZDEdxguqgatkvBT1OLKqESFey Q89Js2pqEjqCs9eSWMwTKX2KM BdkTLlL2GmfY6tNnSsUYIqNLL w I3JsaKSmLOxhO075ILbxGvF3R IYvfhEhN0QqYTPuqQspWpV6s7 Y1Ru9NJLe3VB57PB48zSUzb1Z 5 mFU9Z3QnEOVmbieyokbumSJ2C XBxTOUffY92Ck6phFcjDl0cAH NdGOQ8FBUlmPZqI5LikY6nXtW j VNUoOVEeD3OfcYQaFMcaJ299V OtdYtO1VJYtjiNiJ7HaAJLhmG qtQeE5c8E5Eb7XEADjCX80ZJR 5 pUQ8QV80MY08B8MfTmokiWUmy +PHRhYmxlIHdpZHRoPScxMD RnRdTtvPcvIJ7eTr0bRFFgHTB v lZmblLYlXbWff8wdFRMnDZunU U2xaYizQ6GmvHC3IDNzg3s4Ez 50W18fL3AciMX+RMVanLV2nTD 0 hG5xAhYiYvH3RMlzK664JuQvu IEfLhlxl3wfd9uufBs4NoC1LN HcfqFioVubKZT5c7MkXq23N78 s IHdpZHRoPSIxNSUiIHZhbGlnb d8eyH2lZd4+BTDmxEA8pPU6sO 8lSiGcAoG9LVneJ584YxJjeXY v Ysppw9pcs3hsbZa1PzHlRWIhj qGtlRvtEPP8c1PzLe15Z8LxfT oni7UfGyv3vo85zLJeu1I7zTJ 9 O2SxDIBapzxheZVkrZgjWP6cR RAxswioKMRhlE7zBSMeL8u5Wo LmFeT4NXatV2CmbmZ3HIAxqMU g KTlmEIS8D23vw3W1WIHoDJVoQ NN6zYJ0rC6ssBduhdqlrXYniH djgtCrnDyaQRwdOQziR083QUJ v eEocFHSweF3jOCUapXRrtAxcB H3gGODacdziBhBIR2wQIGKjFF xPVUVMTEEgTDwvdGQ+PHRkIHN 0 rOiyANbrWQTfxO5xRZDyM4h0W iBvNvC0GKzbD1XkTTBqlzehBy 73iI8uLuIsBeQ6BHcwF9BrrsT 6 TJUzmQRhPIxjQBG4N10yf3K0N KLfGWNhJJS6eLW7pA5stXhcsl ogbGVmdDsgdmVydGljYWwtYWx p R768FXZdnVrzImVmEnD5SiM9U tB5L8PgHmm0BJSrjVovXN8tnX WrUAimSp3btJzqdOylQR8uPAA p qqeeKQUvjF6mXDIsgAUmzCxeX U3qXZTjxwuzq924DdQdUPA9QQ OabSMtB2YqaT3eKzYbFFFkNPY w N0VnwFQfNPdfK905VWbePaA4W SDvlbYdK5SvCKZjsBsiUjM4t0 F3Xi32KAGPOWEucwuipBN+PHR k GCM3eWzhDXztYTYfaN5sSNYjJ 1e9WzLgMkC6VHpwQ5RoJEDzzu ovEu97zJ0oQiJaWvJ2LAuvP2P v leS1MTJgtQFtVJdcYCY5U56dl 4N3VMOiKXMnNPY1vWA7lH0bgM lnbjogbGVmdDsgdmVydGljYWw t AWrtF515PFVwjIbyTmRhbJTkC TwvdGQ+SMIbXNL5yCkrCBunPH ZpaK8lRBOcE7z5XgXxShP0QIu u D5IfPUNipmjsUe22oK4cZsOaR hT3GNzlU0PthxS0NUUgjWTfYY rqNLC1B49vg9G1FEOmJHCzCEN 7 pYP8dX1jcFqyrkdmfLJmlVuue gVndFfmNKdzKFldL612EXAzpL ajRq40gNLmuTfwxlW6L6ZdDci v dHI+UL28VCXlRE74ePVijKIpk 8jxfJy5MwQfJZCrXPR7mUnvLC lbb9PtOIOkG22nbOSau7P5VSB v cWoxzICnTpPyeWF7rT7bZPosg osmq6htmyjcUgazm2kqox63qM 83I76nZXfaZSMwREOyKCToTFY h mXfegj7wjY8vOa9+QUFtwHY8h RN8lV9bUoIcDyT1MXnyE197Rm YhfCLgXbaul7atl5ycpSt1OoD w PVUeqnDyrUycOYW6f3YyRj27Z 29sIHdpZHRoPSIyMCUiIHZhbG srzi4fkI3iLu6+OO9iq1tdme0 1 mX33sKO+FKBwJZE9dUvxETfnH YTpiX2aDYccYgP9PMEcYiYbnL 23yPFzCJgjWz2lcAeoqYnySY5 w WOOrhnxvf755UtPlh3naZTMnw HWfINnsMWO3I63yv4O2IDAyYS XuJIW2lSZ5gJ3hhAdwpyfraJY m qJmtwnJylSehZFdaMCktI435W EIrjRluYaBjbRZgE2zcntGSIE 1lOjwvdGQ+EIGuCZI3mTgfMMe w YMQaiX4nHEQdN5c8IqDyJrK0G NpzA9XuvxS7FTHmgVQqULQyyC RWaW5pdbyfl9brdrqcNyBcVRP w MUz5SFh8IXAbnVehZiVnIJG5H wZ5IEO7jLIifY9udUmxrgahqV 9wOyc+RklOOjwvdGQ+PHRkIHN 0 gPjwECmvXJNdvQ6aSZOdZ0t1X jItKvK8DUqxP9HtwrQ0DLSvwG UhFUVslZUXoX3ivghje9zffjs g PdXdWTQqYVp0AAo1PSDvvIjwU wToFMU3PbT6XJS8pUNaxW7zkC pcmdtflE1bPmh+TVJOOjwvdGQ + DZFlEIO0mAsvWAkzFDJnvV4lP VZeT4o3PsYjAsK7VTfjU4Lsag U4BKZeoQPpEXNoeMLCtV3pich j u5jfvsssQtBzUNOuFNn4ZUm2S EBvnZjxFeLtLHF7EyX5TNG1uW SlwW5ftKctltmeiI1kOso+UGF 5 WQH9AF23BB44M6CgOrcepAZtv +PHRhYmxlIHdpZHRoPScxMD OyOqAnrJvxYX1hKd6eFSNjCPJ v bGxh (more content not included)... Normal [facility] Physician Orderon 02-07-2022 Physician Order [id number]:1 27 Normal [facility] BMPon 02-05-2022 Anion gap [Moles/Vol] 18 mmol/L High 6-16 [facility] Comment on above: Performed By: #### 2 [id number], [id number] #### [facility] [address] [place] [address] Calcium [Mass/Vol] 9.6 mg/dL Normal 8.9-11.1 [facility] Comment on above: Performed By: #### 2 919189, [id number] #### [facility] [address] [place] [address] Chloride [Moles/Vol] 101 mmol/L Normal 101-111 [facility] Comment on above: Performed By: #### 2 [id number], [id number] #### [facility] [address] [place] [address] CO2 [Moles/Vol] 23 mmol/L Normal 21-31 [facility] Comment on above: Performed By: #### 2 952301, [id number] #### [facility] [address] [place] [address] Creatinine [Mass/Vol] 1.0 mg/dL Normal 0.5-1.3 [facility] Comment on above: Performed By: #### 2 876082, [id number] #### [facility] [address] [place] [address] Glucose [Mass/Vol] 154 mg/dL Normal 55-199 [facility] Comment on above: Result Comment: If t his glucose result represents a fasting glucose, interpretation should refer to the following reference range: 55-99 mg/dL Performed By: #### 2 648215, [id number] #### [facility] [address] [place] [address] Potassium [Moles/Vol] 3.9 mmol/L Normal 3.5-5.3 [facility] Comment on above: Performed By: #### 2 997513, [id number] #### [facility] [address] [place] [address] Sodium [Moles/Vol] 138 mmol/L Normal 135-145 [facility] Comment on above: Performed By: #### 2 312004, [id number] #### [facility] [address] [place] [address] Urea nitrogen [Mass/Vol] 19 mg/dL Normal 5-21 [facility] Comment on above: Performed By: #### 2 232505, [id number] #### [facility] [address] [place] [address] Urea nitrogen/Creatinine [Mass ratio] 19 No Units Normal 10-20 [facility] Comment on above: Performed By: #### 2 867261, [id number] #### [facility] [address] [place] [address] CHEMISTRYOrdered By: SYSTEM SYSTEM on 02-05-2022 Anion [...] rate/Area] mL/min/1.73 m2 Normal >=59mL/min /1.73 m2 [facility] Chem S GFR/1.73 sq M.predicted among non-blacks MDRD (S/P/Bld) [Vol rate/Area] 59 mL/min/1.73 m2 Normal >=59mL/min /1.73 m2 [facility] Chem S Glucose [Mass/Vol] 154 mg/dL Normal 55 - 199 mg/dL [facility] Potassium [Moles/Vol] 3.9 mmol/L Normal 3.5 - 5.3 mmol/L [facility] Sodium [Moles/Vol] 138 mmol/L Normal 135 - 145 mmol/L [facility] Urea nitrogen [Mass/Vol] 19 mg/dL Normal 5 - 21 mg/dL [facility] Urea nitrogen/Creatinine [Mass ratio] 19 mg/mg Normal 10 - 20 [facility] Consent for Treatmenton 01-10 Consent for Treatment [id number]:12 7 Normal [facility] Physician Orderon 02-05-2022 Physician Order [id number]#[id number]:12 7 Normal [facility] eGFRon 02-05-2022 GFR/1.73 sq M.predicted among blacks MDRD (S/P/Bld) [Vol rate/Area] mL/min/{1.73_m2} Normal >=59 [facility] Comment on above: Order Comment: Order added by Discern Expert. Result Comment: eGFR is race adjusted. AA=. Performed By: #### 2 [id number], [id number] #### [facility] [address] [place] [address] GFR/1.73 sq M.predicted among non-blacks MDRD (S/P/Bld) [Vol rate/Area] 59 mL/min/1.73 m2 Normal >=59 [facility] Comment on above: Order Comment: Order added by Discern Expert. Result Comment: Laboratory Sample Carrier shayne kidney disease could be indicated at eGFR's of less than 60 mL/min/1.73m2. Kidney failure is indicated at less than 15 mL/min/1.73m2. Performed By: #### 2 [id number], [id number] #### [facility] [address] [place] [address] Coding Summary.on 01-15-2022 Coding Summary. CD:[id number] Gh0bW w+PGhlYWQ+CV7ZLZFmK27wbZI syJ5EH2tHYW2OSFSYNXMFIR0K VO0heID8YNbfR3KvhlDd ZuxtjJQlOO51XQw8LMB7zNoaO DssmC5qrUKxA1z7PmOeDE36nI 66AMpqYUWeZhB2LjIjwgyazPU y C3sqTmUsbBQnQph+PHRhYmxlI HdpZHRoPScxMDAlJyBzdHlsZT 7sRk1vSYPbVZOlfJnrdXIvCoD j l6ihNDPcVWpcIA1ogPnpK4Tyj GL5YTSbf9u1Gb02rZL+PHRkIH M8uJkjDBuvn343UnOne3plEEK 3 fZJcJSxoREL4J39pf6S1MHRtE XOpCQB6yQU0oI2grRulpllpE0 UnbQRuBhE4PCN8tOLqsE7mhBp n whlozC3rBso+X16CZJ6EFZZYF O0IOwr0L6WdXlrzcVP+PC90YW IcYF60eIRumPXka6ukfWt6BuV w BMXlPDV8fCqfBUinn2YoDWUbK 82frHEec2T3SDWnzNerrWWvBm RswON7qZ2lTMqhgkchm0detdf n Kikgs9swbn45oB99W45iQGpaW VTvWVL1PMRpKJVptZlnrg4slX 9wIi8+OXugy2bbk4dxvUt1SzH w CETkbzGskPynLIE4l0YwXd32Z 1FsaAbkd7GoAie8pi65sNSro4 J9sLQ2GJedKYJyjM7zJRuxYvU 6 UAKmBaRgxQ67iMVhQVxtKo2uu LssmWukUS6aYXHbevtpTNWbgD 3qSKVnyVOxsGtwZI5dDKWndrm m g324DjWvJIX5WQLpmQTaY2Pih W3lWnKoMCIdMLCtF1HiyCZjBR leK230MPpvSkU4SDDigzZfD4O s MOOjvMfrEuK5i9S3Rb0Iw4Xut ceiTSH4KIdhQFElLgC9CfTcXd Q4X1UiCid0GBIuqGieXO0eN9F h GBGlzadekrlbxER5VTCpTIBnl D42bLFiRPnjWx7jb4O5x226DI BdPOJwsC27Us1ocSptTRXxgAG U tO6bvzzee0rnhpbtPvFxMTXlK Kj2CTz3RIXljAeqFdGoTXR9Xq Y8CQH9wWXefI4khIemrykhnG8 w Oyc+Z02jdE9lATM0YDX6vlkqX XDzjeOaWP39DO86K1BuUfjdkX FibGU+FARrazGdiUojQB0aExG j d8bfn6RfFQpfG5YrGZRrPJidK xf9BHSnCMV1bMJ9hA4wLBMlAO lfo0T4eGE5Y1KvjkDwgh3of2g s WVRcEXfdD69ofVYdq4F8YMOkl GP2TETraRfjBkEcmZ90Psn+PG XvgCfon8FgCkiau4ohl5oivKj 9 XrEiRRAbzqYkgXusYHT5i3NkS g07I14jXMrwKGXqEULyHBScGM KnxAqmsg0roY4mLb2+PGNvbCB 3 oDZ3gR9bZRQkTzM0RJvlV953P zXbnSFaFyfia5peu6rsjYf5Ko CeGAUuxpLlySrpCDE0a0MeXh2 8 X78tDHoxPEJhKSZkKGFdSBBop Uunbc6bmP2lFc7+HV0pb9piez 41dL69jVA+DRKcJAV1qYycABw w WHHnbI5wZJkbDwQ3GQRdKkMut J26gEPxWBvqVl0tdFhslWdcDZ 8lKQYabdrfg281FkUgk4gjPLZ w dYYcKVblQDK1N65hs2I0MTIwL HAjNYX4kTP8lM6czEufhkpghT NsdMpbspYhpSmjDYtfUEojQ61 6 IHRvcDsnPlBhdGllbnQgTmFtZ Cc1R3VuBfv4SBFpnXewZW3rcK BaBVowEx8xiCpxdJtpDF1pMWA p jiadl942ZcNlx4xvNPQkgVXwL ImjBHY9E93ls9Q2KIToCQWyQO K4kZS4mN5bgFjajlskqQZaxYr g ceExmSjoTHmeYSawK807SGZdp VhjXtPygwIrLCItuQR8ZY05RJ 86rWGuj0E3nOP2J8ZyWZBzctg t hxvotJZ4GXHkJKFnoD03Cm8ja YrtRg4oWSBlWMK1HKTowDJnB0 VjdK8vTvUzBPHcMUQnT9ZhjOG t XAxyP138KQgzVkW8IIMcpvIjO 1ZkVWHmwBpvZoT5g1I5Go5DO0 K2GW09BF14uKFyn8A7vTS8J7H h HWOtwjoxugagvTF6FCFpRSOjj P02Ht7geHbcJe6nDOFjMIN9VY PbzVLoP0FnbK7bVqUnDPXzLVS w C4EaqTJzGDgnZ369XLhhGdK7H NMbzeMtG1RgPWQkaOljKnQ3y3 B5Fg0ERTp3PB11QF49qXDtz5K 5 oYP6P8FsGQPgxmvxkpwkfJS8U AIzBNFieQ19Qb3lnPgtUp2zMK ReKKI6FGOpaQBgO8SiwN1bHmL j CHHmCHImE4IoaJMgDXdpB549E VqqOcU2LXZbvrLzZ8GaJMBdlM sgMyU1o6W1Zi5FEGMhYF84XJS 5 iFT0BY48MT70F1ChGacewLIsb +PHRhYmxlIHdpZHRoPScxMD SoTjTedXrxSR0sYx4pUDLnPCG v lDkesZEpRmTtg4bqBIYkEJbyF V3uxLciV1KniHT5BIYfz5p5Ir 71N48nK4AatDK+KZWqnUS8wPA 0 yL5dUjFgFmC0GUszT200TmGse LVkEzcgo2szu4jbwBi8VyG2IL SkigDdpOiaVRX0x3BlYw65B53 s IHdpZHRoPSIxNSUiIHZhbGlnb y9ikC9xIe0+ASOflZY1yOL5lG 6oJhKrAsY8NHviR078EfHleCT v Pgppj9qgj2ntaEq9LqKdECBqw yAvvZejOCU0l7CsHk06Z6NwbW gmq0KuKoe1ta20pSEfh4B7uBS 9 F3GpDVNpfffbdRWtlUhdAX3vM SNjbpwiXXTqnZ8fGBNoY0r5Sf HxEpA7TKupY1BxnsB1GSXjsPQ g SWrpEEK3H00tu3A9TVZmZQUxB OH0lFR2tE2wqVmcfksjwRXerI hrktKruFugROklLKhoK687EUT v fWfaWQLpsS6qIWAeqMDbmMofG Q4gEDMydbaqMfNBM0dTWHYiFF xPVUVMTEEgTDwvdGQ+PHRkIHN 0 nJtsCJgtIVRxvQ4xHCUvL9n3M gPgTqG2ZGsoT6KhUYLaaryrYu 10qQ3eMkPdQuC5ORarQ3OjsgY 6 VJLhqTLbBPreTSK1Z33xm6I6J GYhVNMbSHZ2bGJ6cC1ajMszhn ogbGVmdDsgdmVydGljYWwtYWx p N755ICAtpMueGvGzMkC3HgT4C yG9B9TlHxq6EJUtvLytSD2noK KmIGemKq4vsQnwyZfdHG5hXBP p seojFMKwqP7cDMZmtAZvgWrxV D6jTYXhnwuww011FxYcNRA2PA OuzQRuW6WefB2kPsKdPRAtYFC w R7TxuKAzLQkpE421YAdrSiF8K NRgixBdG8FzEOSiuHhcJfR7v1 D2Mo46ZRPWNTHhbzrsrEI+PHR k XLT3hNvxHExbFKMnkZ5fUEYyD 3q6ZoFoHtN1IUbwH1HmULZsbl fyMr60uB3zPoRrDlO8DDfhX6Z v amO3AHBamPNzJXjlAVU5B26bj 7B5DDJiFFRqGOW3dFH2fR0bzZ lnbjogbGVmdDsgdmVydGljYWw t XDjiZ042QTGmxHxhJcQikKMnX TwvdGQ+YYIuMAD8sRseBBkzXA GchM1rJHZuZ1r5YwLgEcL4DIl u G4CvYHFifyqfVv07tZ2fUdZhG vF5KZkgW0CykoL4UABpiWGpYV asGKL0H80ho4O1RNBtZRPhUOM 7 uAN1dW7znBjajykkuNXkqVkka cWuzRynCUpyUEaqK006KAClvS paWq15eEBreYkyiwT8J4KgIhz v dHI+SI68UWNkHD01iXKieWJeb 7dwvUi1TvUkNHTiCJU3hZqbCC ybj5SwICQcN83ylGQmv0H3LFD v aLaiyLReBcNmfQV0iQ0pAAfkx lvlx1ueuwpgUkcbi7hbpw90iA 97P26wLClfAABnRPShPNYzLLR h zFcrcl8mcS6jEp4+AFZasDO6t ZE1uM0cSgOtOdJ5JWoyZ081Pa EmjSYuSksoq9bnn1kcvDh7NfQ w SRVnbzCxoAzfAXS1b9QjZi14K 29sIHdpZHRoPSIyMCUiIHZhbG jvej7raX3hEz2+NB5se3sknb4 1 vO35zZB+KUYxNAG6vLpiIOvfJ DDtsH8tEUqoVuT9JVAnYnOszP 88rPVcGCabVd1xzVnbkVtkQR5 w OOMcpcuxg325YwXap3ldQXVdr NUvKBamDYK3Y33qj5O6AMZpOR UeMGY5sXW5kB2ymIgtmaicrBV m jQcbrhImwBozATltUXwlG979B BJxuLrdEbXfbIMuX0idluSPPQ 1lOjwvdGQ+LPRyIHU0tBimLTr w DVCopO7pSVVlH2d8YtAqChJ5M FiiJ6LzvjC2KDVncDFsQSDybS HLvH2ypctsi5vnnvlpZoDjHFO w ZTo3XYm6XEVtjEuqXuBhMJH5W nV7SBM0uXMmnG6cjYwdilcsaJ 9wOyc+RklOOjwvdGQ+PHRkIHN 0 rCuaNEumODYnfE6sEUDeG5s7X cXtWjZ1IFvdO5GrgyF4YARstK YyEWCmnMGBhN0bghpwj7qyqoy g DwKyLPYjRKl0AHq3JXTadTeeW jWaRGW5UkQ9CXX5bFYeoQ4psV yzpkvxtF0fXuz+TVJOOjwvdGQ + ITXqWAW0nKhbCMqtOEJgzP1iW NJgR2k5OtHeHeF0UTnfN9Hjsp G0RJPweDChZYTnoBTXtG1gzru j x4svhlidIuIzMVTgTVd4QCn6O YZupCmdCtFmWAY2PkL7EEL5xI ThmP0kpWmvknowrA3yMhe+UGF 5 AZJ3ZT65DX80O3HhSlipzKYfj +PHRhYmxlIHdpZHRoPScxMD SlWlJrbCntZG8dMu6fKKDdAHY v bGxh (more content not included)... Normal [facility] Auto Diffon 01-08-2022 Basophils/100 WBC (Bld) 0.6 % Normal 0.0-2.0 [facility] Comment on above: Order Comment: Order Added by Discern Expert. Performed By: #### 2 [id number], [id number] #### [facility] [address] [place] [address] Basophils/Leukocytes Auto (Bld) [Pure # fraction] 0.1 E9/L Normal 0.0-0.2 [facility] Comment on above: Order Comment: Order Added by Discern Expert. Performed By: #### 2 693751, [id number] #### [facility] [address] [place] [address] Eosinophils/100 WBC (Bld) 1.4 % Normal 0.0-8.0 [facility] Comment on above: Order Comment: Order Added by Discern Expert. Performed By: #### 2 386438, [id number] #### [facility] [address] [place] [address] Eosinophils/Leukocytes Auto (Bld) [Pure # fraction] 0.2 E9/L Normal 0.0-0.5 [facility] Comment on above: Order Comment: Order Added by Discern Expert. Performed By: #### 2 878501, [id number] #### [facility] [address] [place] [address] Lymphocytes/100 WBC (Bld) 35.6 % Normal 14.0-50.0 [facility] Comment on above: Order Comment: Order Added by Discern Expert. Performed By: #### 2 771958, [id number] #### [facility] [address] [place] [address] Lymphocytes/Leukocytes Auto (Bld) [Pure # fraction] 4.2 E9/L High 1.0-4.0 [facility] Comment on above: Order Comment: Order Added by Discern Expert. Performed By: #### 2 273989, [id number] #### [facility] [address] [place] [address] Monocytes/100 WBC (Bld) 3.0 % Low 4.0-14.0 [facility] Comment on above: Order Comment: Order Added by Discern Expert. Performed By: #### 2 141686, [id number] #### [facility] [address] [place] [address] Monocytes/Leukocytes Auto (Bld) [Pure # fraction] 0.4 E9/L Normal 0.2-1.0 [facility] Comment on above: Order Comment: Order Added by Discern Expert. Performed By: #### 2 463252, [id number] #### [facility] [address] [place] [address] Neutrophils/100 WBC (Bld) 59.4 % Normal 36.0-75.0 [facility] Comment on above: Order Comment: Order Added by Discern Expert. Performed By: #### 2 426862, [id number] #### [facility] [address] [place] [address] Neutrophils/Leukocytes Auto (Bld) [Pure # fraction] 7.0 E9/L Normal 2.0-7.5 [facility] Comment on above: Order Comment: Order Added by Discern Expert. Performed By: #### 2 371896, [id number] #### [facility] [address] [place] [address] BMPon 01-08-2022 Anion gap [Moles/Vol] 17 mmol/L High 6-16 [facility] Comment on above: Performed By: #### 2 010432, [id number] #### [facility] [address] [place] [address] Calcium [Mass/Vol] 10.1 mg/dL Normal 8.9-11.1 [facility] Comment on above: Performed By: #### 2 212369, [id number] #### [facility] [address] [place] [address] Chloride [Moles/Vol] 99 mmol/L Low 101-111 [facility] Comment on above: Performed By: #### 2 406752, [id number] #### [facility] [address] [place] [address] CO2 [Moles/Vol] 22 mmol/L Normal - [facility] Comment on above: Performed By: #### 2 109028, [id number] #### [facility] [address] [place] [address] Creatinine [Mass/Vol] 1.1 mg/dL Normal 0.5-1.3 [facility] Comment on above: Performed By: #### 2 552916, [id number] #### [facility] [address] [place] [address] Glucose [Mass/Vol] 356 mg/dL High 55-199 [facility] Comment on above: Result Comment: If t his glucose result represents a fasting glucose, interpretation should refer to the following reference range: 55-99 mg/dL Performed By: #### 2 665265, [id number] #### [facility] [address] [place] [address] Potassium [Moles/Vol] 4.2 mmol/L Normal 3.5-5.3 [facility] Comment on above: Performed By: #### 2 145908, [id number] #### [facility] [address] [place] [address] Sodium [Moles/Vol] 134 mmol/L Low 135-145 [facility] Comment on above: Performed By: #### 2 224483, [id number] #### [facility] [address] [place] [address] Urea nitrogen [Mass/Vol] 18 mg/dL Normal 5-21 [facility] Comment on above: Performed By: #### 2 591586, [id number] #### [facility] [address] [place] [address] Urea nitrogen/Creatinine [Mass ratio] 16 No Units Normal 10-20 [facility] Comment on above: Performed By: #### 2 377222, [id number] #### [facility] [address] [place] [address] CBC w/ Auto Diffon 2 Erythrocyte distribution width (RBC) [Ratio] 13.5 % Normal 10.9-14.2 [facility] Comment on above: Performed By: #### 2 652455, [id number] #### [facility] [address] [place] [address] Hematocrit (Bld) [Volume fraction] 46.4 % High 34.0-46.0 [facility] Comment on above: Performed By: #### 2 886295, [id number] #### [facility] [address] [place] [address] Hemoglobin (Bld) [Mass/Vol] 15.8 g/dL Normal 12.0-16.0 [facility] Comment on above: Performed By: #### 2 249732, 9356074 #### [facility] [address] [place] [address] MCH (RBC) [Entitic mass] 30.4 pg Normal 27.0-34.0 [facility] Comment on above: Performed By: #### 2 511341, [id number] #### [facility] [address] [place] [address] MCHC (RBC) [Mass/Vol] 34.1 g/dL Normal 31.4-36.0 [facility] Comment on above: Performed By: #### 2 162562, [id number] #### [facility] [address] [place] [address] MCV (RBC) [Entitic vol] 89.1 fL Normal 80.0-100.0 [facility] Comment on above: Performed By: #### 2 857538, [id number] #### [facility] [address] [place] [address] Platelet mean volume (Bld) [Entitic vol] 9.8 fL Normal 6.4-10.8 [facility] Comment on above: Performed By: #### 2 257785, [id number] #### [facility] [address] [place] [address] Platelets (Bld) [#/Vol] 252.0 E9/L Normal 150. 0-500. 0 [facility] Comment on above: Performed By: #### 2 693765, [id number] #### [facility] [address] [place] [address] RBC (Bld) [#/Vol] 5.2 E12/L Normal 4.3-5.9 [facility] Comment on above: Performed By: #### 2 340989, [id number] #### [facility] [address] [place] [address] WBC corrected for nucl RBC Auto (Bld) [#/Vol] 11.8 E9/L High 4.0-11.0 [facility] Comment on above: Performed By: #### 2 182383, [id number] #### [facility] [address] [place] [address] CHEMISTRYOrdered By: SYSTEM SYSTEM on 01-08-2022 Anion gap [Moles/Vol] 17 mmol/L High 6 - 16 mEq/L [facility] Calcium [Mass/Vol] 10.1 mg/dL Normal 8.9 - 11. 1 mg/dL [facility] Chloride [Moles/Vol] 99 mmol/L Low 101 - 1 11 mmol/L [facility] CO2 [Moles/Vol] 22 mmol/L Normal 21 - 31 mmol/L [facility] Creatinine [Mass/Vol] 1.1 mg/dL Normal 0.5 - 1.3 mg/dL [facility] GFR/1.73 sq M.predicted among blacks MDRD (S/P/Bld) [Vol rate/Area] mL/min/1.73 m2 Normal >=59mL/min /1.73 m2 [facility] Chem S GFR/1.73 sq M.predicted among non-blacks MDRD (S/P/Bld) [Vol rate/Area] 53 mL/min/1.73 m2 Low >=59mL/min /1.73 m2 [facility] Chem S Glucose [Mass/Vol] 356 mg/dL High 55 - 199 mg/dL [facility] Potassium [Moles/Vol] 4.2 mmol/L Normal 3.5 - 5.3 mmol/L [facility] Sodium [Moles/Vol] 134 mmol/L Low 135 - 145 mmol/L [facility] Urea nitrogen [Mass/Vol] 18 mg/dL Normal 5 - 21 mg/dL [facility] Urea nitrogen/Creatinine [Mass ratio] 16 mg/mg Normal 10 - 20 [facility] Consent for Treatmenton 12-11 Consent for Treatment [id number]:12 7 Normal [facility] HEMATOLOGYOrdered By: SYSTEM SYSTEM on 01-08-2022 Basophils/100 [...] 34.1 g/dL Normal 31.4 - 36.0 gm/dL [facility] HemeAutoSS MCV (RBC) [Entitic vol] 89.1 fL Normal 80.0 - 100.0 fL [facility] HemeAutoSS Platelet mean volume (Bld) [Entitic vol] 9.8 fL Normal 6.4 - 10.8 fL [facility] HemeAutoSS Platelets (Bld) [#/Vol] 252.0 E9/L Normal 150. 0 - 500.0 E9/L [facility] HemeAutoSS RBC (Bld) [#/Vol] 5.2 E12/L Normal 4.3 - 5.9 E12/L [facility] HemeAutoSS WBC corrected for nucl RBC Auto (Bld) [#/Vol] 11.8 E9/L High 4.0 - 11.0 E9/L [facility] HemeAutoSS Pharmacy Officeon 01-08-2022 Pharmacy Office [id number]:1 27 Normal [facility] Physician Orderon 01-08-2022 Physician Order [id number]#[id number]:12 7 Normal [facility] eGFRon 01-08-2022 GFR/1.73 sq M.predicted among blacks MDRD (S/P/Bld) [Vol rate/Area] mL/min/{1.73_m2} Normal >=59 [facility] Comment on above: Order Comment: Order added by Discern Expert. Result Comment: eGFR is race adjusted. AA=. Performed By: #### 2 [id number] #### [facility] [address] [place] [address] GFR/1.73 sq M.predicted among non-blacks MDRD (S/P/Bld) [Vol rate/Area] 53 mL/min/1.73 m2 Low >=59 [facility] Comment on above: Order Comment: Order added by Discern Expert. Result Comment: Laboratory Sample Carrier shayne kidney disease could be indicated at eGFR's of less than 60 mL/min/1.73m2. Kidney failure is indicated at less than 15 mL/min/1.73m2. Performed By: #### 2 [id number], [id number] #### [facility] [address] [place] [address] PTH INTACTon 09-13-2021 PTH, Intact 17 pg/mL Normal 15-65 [facility] Comment on above: Performed By: #### M G, RENAL, URIC #### [facility] [address] [place] [address] Dr. Tyree Botello HEMOGRAM AND PLATELon 2021 Hematocrit (Bld) [Volume fraction] 46.5 % Normal 36.0-48.0 [facility] Comment on above: Performed By: #### M G, RENAL, URIC #### [facility] [address] [place] [address] Dr. Tyree Botello Hemoglobin (Bld) [Mass/Vol] 15.7 g/dL Normal 12.0-16.0 [facility] Comment on above: Performed By: #### M G, RENAL, URIC #### [facility] [address] [place] [address] Dr. Tyree Botello MCH (RBC) [Entitic mass] 30.0 pg Normal 26.7-34.0 [facility] Comment on above: Performed By: #### M G, RENAL, URIC #### [facility] [address] [place] [address] Dr. Tyree Botello MCHC (RBC) [Mass/Vol] 33.8 g/dL Normal 29.9-35.2 [facility] Comment on above: Performed By: #### M G, RENAL, URIC #### [facility] [address] [place] [address] Dr. Tyree Botello MCV (RBC) [Entitic vol] 88.9 fL Normal 81.0-99.0 [facility] Comment on above: Performed By: #### M G, RENAL, URIC #### [facility] [address] [place] [address] Dr. Tyree Botello PLT 261 103/ul Normal 150-450 [facility] Comment on above: Performed By: #### M G, RENAL, URIC #### [facility] [address] [address] [address] Tyree Botello RBC 5.23 106/ul Normal 4.20-5.40 [facility] Comment on above: Performed By: #### M G, RENAL, URIC #### [facility] [address] [place] [address] Dr. Tyree Botello WBC 11.1 103/ul Critically high 4.0-11.0 [facility] Comment on above: Performed By: #### M G, RENAL, URIC #### [facility] [address] [place] [address] Dr. Tyree Botello MAGNESIUMon 09-12-2021 Magnesium [Mass/Vol] 1.3 mg/dL Critically low 1.8-2.4 [facility] Comment on above: Performed By: #### M G, RENAL, URIC #### [facility] [address] [place] [address] Dr. Tyree Botello RENAL FUNCTION PANELon 09-12 Albumin [Mass/Vol] 3.4 g/dL Normal 3.4-5.0 [facility] Comment on above: Performed By: #### M G, RENAL, URIC #### [facility] [address] [place] [address] Dr. Tyree Botello Calcium [Mass/Vol] 10.3 mg/dL Critically high 8.5-10.1 [facility] Comment on above: Performed By: #### M G, RENAL, URIC #### [facility] [address] [place] [address] Dr. Tyree Botello Chloride [Moles/Vol] 100 mmol/L Normal 98-107 [facility] Comment on above: Performed By: #### M G, RENAL, URIC #### [facility] [address] [place] [address] Dr. Tyree Botello CO2 [Moles/Vol] 23.1 mmol/L Normal 21.0-32.0 [facility] Comment on above: Performed By: #### M G, RENAL, URIC #### [facility] [address] [place] [address] Dr. Tyree Botello Creatinine [Mass/Vol] 1.11 mg/dL Critically high 0.55-1.02 [facility] Comment on above: Performed By: #### M G, RENAL, URIC #### [facility] [address] [place] [address] Dr. Tyree Botello EGFR-AF MOLDOVAN >60 Normal >=60 [facility] Comment on above: Performed By: #### M G, RENAL, URIC #### [facility] [address] [place] [address] Dr. Tyree Botello EGFR-NON AF MOLDOVAN 52 mL/min/1.73m2 Critically low >=60 [facility] Comment on above: Performed By: #### M G, RENAL, URIC #### [facility] [address] [place] [address] Dr. Tyree Botello Glucose [Mass/Vol] 239 mg/dL Critically high 74-106 T [facility] Comment on above: Performed By: #### M G, RENAL, URIC #### [facility] [address] [place] [address] Dr. Tyree Botello Phosphate [Mass/Vol] 2.6 mg/dL Normal 2.6-4.7 [facility] Comment on above: Performed By: #### M G, RENAL, URIC #### [facility] [address] [place] [address] Dr. Tyree Botello Potassium [Moles/Vol] 4.2 mmol/L Normal 3.5-5.1 [facility] Comment on above: Performed By: #### M G, RENAL, URIC #### [facility] [address] [place] [address] Dr. Tyree Botello Sodium [Moles/Vol] 137 mmol/L Normal 136-145 [facility] Comment on above: Performed By: #### M G, RENAL, URIC #### [facility] [address] [place] [address] Dr. Tyree Botello Urea nitrogen [Mass/Vol] 21.0 mg/dL Critically high 7.0-18 .0 [facility] Comment on above: Performed By: #### M G, RENAL, URIC #### [facility] [address] [place] [address] Dr. Tyree Botello UA RANDOM W/MICROSCOPICon BACTERIA MODERATE Abnormal NONE SEEN The [facility] Comment on above: Performed By: #### M G, RENAL, URIC #### [facility] [address] [address] [address] Tyree Botello Bilirubin Ql (U) Negative Normal NEGATIVE [facility] Comment on above: Performed By: #### M G, RENAL, URIC #### [facility] [address] [address] [address] Tyree Botello CAST SEEN Abnormal NONE SEEN The [facility] Comment on above: Performed By: #### M G, RENAL, URIC #### [facility] [address] [address] [address] Tyree Botello Clarity (U) CLEAR Normal CLEAR [facility] Comment on above: Performed By: #### M G, RENAL, URIC #### [facility] [address] [address] [address] Tyree Botello Color (U) YELLOW Normal YELLOW [facility] Comment on above: Performed By: #### M G, RENAL, URIC #### [facility] [address] [address] [address] Tyree Botello Crystals LM Nom (Urine sed) NONE SEEN Normal NONE SEEN [facility] Comment on above: Performed By: #### M G, RENAL, URIC #### [facility] [address] [address] [address] Tyree Botello Epithelial cells LM Ql (Urine sed) FEW Abnormal NONE SEEN /RARE [facility] Comment on above: Performed By: #### M G, RENAL, URIC #### [facility] [address] [address] [address] Tyree Botello Glucose Ql (U) >1000 Abnormal NEGATIVE [facility] Comment on above: Performed By: #### M G, RENAL, URIC #### [facility] [address] [address] [address] Tyree Botello Hemoglobin Ql (U) SMALL Abnormal NEGATIVE [facility] Comment on above: Performed By: #### M G, RENAL, URIC #### [facility] [address] [address] [address] Tyree Botello HYALINE CAST RARE Normal The [facility] Comment on above: Performed By: #### M G, RENAL, URIC #### [facility] [address] [address] [address] Tyree Botello Ketones Ql (U) Negative Normal NEGATIVE [facility] Comment on above: Performed By: #### M G, RENAL, URIC #### [facility] [address] [address] [address] Tyree Botello LEUKOCYTES Negative Normal NEGATIVE [facility] Comment on above: Performed By: #### M G, RENAL, URIC #### [facility] [address] [address] [address] Tyree Botello MUCOUS NONE SEEN Normal NONE SEEN The [facility] Comment on above: Performed By: #### M G, RENAL, URIC #### [facility] [address] [address] [address] Tyree Botello Nitrite Ql (U) Negative Normal NEGATIVE [facility] Comment on above: Performed By: #### M G, RENAL, URIC #### [facility] [address] [address] [address] Tyree Botello pH (U) 5.5 [pH] Normal 5-9 [facility] Comment on above: Performed By: #### M G, RENAL, URIC #### [facility] [address] [address] [address] Tyree Botello RBC 2-5 Abnormal 0-2 [facility] Comment on above: Performed By: #### M G, RENAL, URIC #### [facility] [address] [address] [address] Tyree Botello SPEC GRAVITY >=1.030 Abnormal 1.005-<=1. 025 [facility] Comment on above: Performed By: #### M G, RENAL, URIC #### [facility] [address] [address] [address] Tyree Botello UA PROTEIN 100 mg/dl Abnormal NEGATIVE/ TRACE The [facility] Comment on above: Performed By: #### M G, RENAL, URIC #### [facility] [address] [place] [address] Dr. Tyree Botello Urobilinogen Qn (U) 0.2 {Jennifer'U}/dL Normal 0.2 - 1. 0 [facility] Comment on above: Performed By: #### M G, RENAL, URIC #### [facility] [address] [place] [address] Dr. Tyree Botello WBC 5-10 Abnormal NONE SEEN The [facility] Comment on above: Performed By: #### M G, RENAL, URIC #### [facility] [address] [place] [address] Dr. Tyree Botello URIC ACID SERUMon 09-12-2021 Urate [Mass/Vol] 6.5 mg/dL Critically high 2.6-6.0 [facility] Comment on above: Performed By: #### M G, RENAL, URIC #### [facility] [address] [place] [address] Dr. Tyree Botello URINE T PROTEIN CREAT RATIOo n 09-12-2021 Protein (U) [Mass/Vol] 177.8 mg/dL Critically high <=12.0 [facility] Comment on above: Performed By: #### M G, RENAL, URIC #### [facility] [address] [place] [address] Dr. Tyree Botello UR PROT CREAT RAT 1.06 Normal [facility] Comment on above: Performed By: #### M G, RENAL, URIC #### [facility] [address] [place] [address] Dr. Tyree Botello URINE CREAT 168.43 mg/dL Normal 20.00-300. 00 [facility] Comment on above: Performed By: #### M G, RENAL, URIC #### [facility] [address] [place] [address] Dr. Tyree Botello VITAMIN D 25 OHon 09-12-2021 VIT D 25-OH 45.5 ng/mL Normal [facility] Comment on above: Performed By: #### M G, RENAL, URIC #### [facility] [address] [place] [address] Dr. Tyree Botello VIT D RANGES SEE BELOW Normal [facility] Comment on above: Result Comment: <20 ng/mL Vit D deficient 20 - <30 ng/mL Vit D insufficient 30 - 100 ng/mL Vit D sufficient >100 ng/mL Potential Toxicity Performed By: #### M G, RENAL, URIC #### [facility] [address] [place] [address] Dr. Tyree Botello CBC AUTO DIFFon 08-30-2021 BASO # 0.1 103/ul Normal 0.0-0.1 [facility] Comment on above: Performed By: #### M G, RENAL, URIC #### [facility] [address] [place] [address] Dr. Tyree Botello Basophils/100 WBC (Bld) 0.5 % Normal 0.2-2.0 [facility] Comment on above: Performed By: #### M G, RENAL, URIC #### [facility] [address] [place] [address] Dr. Tyree Botello EO # 0.1 103/ul Normal 0.0-0.7 [facility] Comment on above: Performed By: #### M G, RENAL, URIC #### [facility] [address] [place] [address] Dr. Tyree Botello Eosinophils/100 WBC (Bld) 1.1 % Normal 0.9-7.0 [facility] Comment on above: Performed By: #### M G, RENAL, URIC #### [facility] [address] [place] [address] Dr. Tyree Botello Erythrocyte distribution width (RBC) [Ratio] 12.7 % Normal 11.0-15.0 [facility] Comment on above: Performed By: #### M G, RENAL, URIC #### [facility] [address] [place] [address] Dr. Tyree Botello Hematocrit (Bld) [Volume fraction] 44.6 % Normal 36.0-48.0 [facility] Comment on above: Performed By: #### M G, RENAL, URIC #### [facility] [address] [place] [address] Dr. Tyree Botello Hemoglobin (Bld) [Mass/Vol] 15.0 g/dL Normal 12.0-16.0 [facility] Comment on above: Performed By: #### M G, RENAL, URIC #### [facility] [address] [place] [address] Dr. Tyree Botello IG # 0.05 10e3/ul Critically high 0.00-0.03 [facility] Comment on above: Performed By: #### M G, RENAL, URIC #### [facility] [address] [place] [address] Dr. Tyree Botello IG % 0.4 % Normal 0.0-0.5 [facility] Comment on above: Performed By: #### M G, RENAL, URIC #### [facility] [address] [place] [address] Dr. Tyree Botello LYMPH # 3.6 103/ul Normal 1.2-3.8 [facility] Comment on above: Performed By: #### M G, RENAL, URIC #### [facility] [address] [place] [address] Dr. Tyree Botello Lymphocytes/100 WBC (Bld) 29.8 % Normal 20.5-60.0 [facility] Comment on above: Performed By: #### M G, RENAL, URIC #### [facility] [address] [place] [address] Dr. Tyree Botello MANUAL DIFF REQ NO Normal [facility] Comment on above: Performed By: #### M G, RENAL, URIC #### [facility] [address] [place] [address] Dr. Tyree Botello MCH (RBC) [Entitic mass] 29.9 pg Normal 26.7-34.0 [facility] Comment on above: Performed By: #### M G, RENAL, URIC #### [facility] [address] [place] [address] Dr. Tyree Botello MCHC (RBC) [Mass/Vol] 33.6 g/dL Normal 29.9-35.2 [facility] Comment on above: Performed By: #### M G, RENAL, URIC #### [facility] [address] [address] [address] Tyree Botello MCV (RBC) [Entitic vol] 88.8 fL Normal 81.0-99.0 [facility] Comment on above: Performed By: #### M G, RENAL, URIC #### [facility] [address] [place] [address] Dr. Tyree Botello MONO # 0.6 103/ul Normal 0.3-0.8 [facility] Comment on above: Performed By: #### M G, RENAL, URIC #### [facility] [address] [place] [address] Dr. Tyree Botello Monocytes/100 WBC (Bld) 5.2 % Normal 1.7-12.0 [facility] Comment on above: Performed By: #### M G, RENAL, URIC #### [facility] [address] [place] [address] Dr. Tyree Botello NEUT # 7.5 103/ul Critically high 1.4-6.5 [facility] Comment on above: Performed By: #### M G, RENAL, URIC #### [facility] [address] [place] [address] Dr. Tyree Botello Neutrophils/100 WBC (Bld) 63.0 % Normal 43.0-75.0 [facility] Comment on above: Performed By: #### M G, RENAL, URIC #### [facility] [address] [place] [address] Dr. Tyree Botello Platelet mean volume (Bld) [Entitic vol] 11.4 fL Normal 9.5-13.5 [facility] Comment on above: Performed By: #### M G, RENAL, URIC #### [facility] [address] [place] [address] Dr. Tyree Botello PLT 225 103/ul Normal 150-450 [facility] Comment on above: Performed By: #### M G, RENAL, URIC #### [facility] [address] [place] [address] Dr. Tyree Botello RBC 5.02 106/ul Normal 4.20-5.40 [facility] Comment on above: Performed By: #### M G, RENAL, URIC #### [facility] [address] [address] [address] Tyree Botello WBC 12.0 103/ul Critically high 4.0-11.0 [facility] Comment on above: Performed By: #### M G, RENAL, URIC #### [facility] [address] [address] [address] Tyree Botello DEPAKENE/VALPROICon 08-31-19 22 DEPAKENE 53.3 ug/ml Normal 50.0-100.0 [facility] Comment on above: Performed By: #### M G, RENAL, URIC #### [facility] [address] [address] [address] Tyree Botello LIPID PROFILEon 08-30-2021 CHOL-HDL RATIO NORM SEE BELOW Normal [facility] Comment on above: Result Comment: 3.3 - 4.4 LOW RISK 4.4 - 7.1 AVERAGE RISK 7.1 - 11.0 MODERATE RISK >11.0 HIGH RISK Performed By: #### M G, RENAL, URIC #### [facility] [address] [address] [address] Tyree Botello Cholesterol [Mass/Vol] 160 mg/dL Normal <=200 Th [facility] Comment on above: Performed By: #### M G, RENAL, URIC #### [facility] [address] [address] [address] Tyree Botello Cholesterol in HDL [Mass/Vol] 43 mg/dL Normal 40-60 [facility] Comment on above: Performed By: #### M G, RENAL, URIC #### [facility] [address] [address] [address] Tyree Botello Cholesterol in LDL [Mass/Vol] 76.0 mg/dL Normal [facility] Comment on above: Performed By: #### M G, RENAL, URIC #### [facility] [address] [address] [address] Tyree Botello Cholesterol.total/Choles terol in HDL [Mass ratio] 3.7 {ratio} Normal [facility] Comment on above: Performed By: #### M G, RENAL, URIC #### [facility] [address] [address] [address] Tyree Botello HDL NORMAL > or = 60 mg/dl - LO W CARDIOVASCULAR RISK <40 mg/dl - HIGH CARDIOVASCULAR RISK Normal [facility] Comment on above: Performed By: #### M G, RENAL, URIC #### [facility] [address] [address] [address] Tyree Botello LDL CALC NORMAL SEE BELOW Normal [facility] Comment on above: Result Comment: <100 mg/dl OPTIMAL 100 - 129 mg/dl NEAR OR ABOVE OPTIMAL 130 - 159 mg/dl BORDERLINE HIGH 160 - 189 mg/dl HIGH >190 mg/dl VERY HIGH Performed By: #### M G, RENAL, URIC #### [facility] [address] [address] [address] Tyree Botello Triglyceride [Mass/Vol] 205 mg/dL Critically high <=150 [facility] Comment on above: Performed By: #### M G, RENAL, URIC #### [facility] [address] [address] [address] Tyree Botello VLDL CALC 41.0 mg/dL Normal [facility] Comment on above: Performed By: #### M G, RENAL, URIC #### [facility] [address] [address] [address] Tyree Botello LIVER PROFILEon 08-30-2021 Albumin [Mass/Vol] 3.0 g/dL Critically low 3.4-5.0 Th e [facility] Comment on above: Performed By: #### M G, RENAL, URIC #### [facility] [address] [address] [address] Tyree Botello Albumin/Globulin [Mass ratio] 0.8 {ratio} Normal [facility] Comment on above: Performed By: #### M G, RENAL, URIC #### [facility] [address] [address] [address] Tyree Botello ALP [Catalytic activity/Vol] 63 U/L Normal 46-116 [facility] Comment on above: Performed By: #### M G, RENAL, URIC #### [facility] [address] [address] [address] Tyree Botello ALT [Catalytic activity/Vol] 49 U/L Normal 14-59 [facility] Comment on above: Performed By: #### M G, RENAL, URIC #### [facility] [address] [place] [address] Dr. Tyree Botello AST [Catalytic activity/Vol] 23 U/L Normal 15-37 [facility] Comment on above: Performed By: #### M G, RENAL, URIC #### [facility] [address] [place] [address] Dr. Tyree Botello BILI, CONJUGATED 0.1 mg/dL Normal 0.0-0.2 [facility] Comment on above: Performed By: #### M G, RENAL, URIC #### [facility] [address] [place] [address] Dr. Tyree Botello Bilirubin [Mass/Vol] 0.4 mg/dL Normal 0.2-1.0 [facility] Comment on above: Performed By: #### M G, RENAL, URIC #### [facility] [address] [address] [address] Tyree Botello Globulin (S) [Mass/Vol] 3.7 g/dL Normal T [facility] Comment on above: Performed By: #### M G, RENAL, URIC #### [facility] [address] [address] [address] Tyree Botello Protein [Mass/Vol] 6.7 g/dL Normal 6.4-8.2 [facility] Comment on above: Performed By: #### M G, RENAL, URIC #### [facility] [address] [address] [address] Tyree Botello Complete Blood Count with Au to Diffon 07-17-2021 BASOABS 97 cells/uL Normal 0-200 [facility] Comment on above: Order Comment: [facility] performed at: Q, [facility], [address] [place] [address], [address] [place] [address], [place], [phone], Photographic Printer: Senthil Ramsey MD [facility] Date/Time: [facility] Results Received Date/Time: [facility] Reported Date/Time: FASTING: UNKNOWN Performed By: #### L IPD, CMP, TSH, CBCAD #### [facility] [address] [place] [address] Basophils/100 WBC (Bld) 0.9 % Normal N [facility] Comment on above: Order Comment: [facility] performed at: [employer] [facility], [address] [place] [address], [address] [place] [address], [address] [place] [address], Photographic Printer: Senthil Ramsey MD [facility] Date/Time: [facility] Received Date/Time: [facility] Reported Date/Time: FASTING: UNKNOWN Performed By: #### L IPD, CMP, TSH, CBCAD #### [facility] [address] [place] [address] EOSABS 97 cells/uL Normal 15-500 [facility] Comment on above: Order Comment: [facility] performed at: [employer] [facility], [address] [place] [address], [address] [place] [address], [address] [place] [address], Photographic Printer: Senthil Ramsey MD [facility] Date/Time: [facility] Received Date/Time: [facility] Reported Date/Time: FASTING: UNKNOWN Performed By: #### L IPD, CMP, TSH, CBCAD #### [facility] [address] [place] [address] Eosinophils/100 WBC (Bld) 0.9 % Normal [facility] Comment on above: Order Comment: [facility] performed at: [employer] [employer] [facility], [address] [place] [address], [address] [place] [address], [address] [place] [address], Photographic Printer: Senthil Ramsey MD [facility] Date/Time: [facility] Received Date/Time: [facility] Reported Date/Time: FASTING: UNKNOWN Performed By: #### L IPD, CMP, TSH, CBCAD #### [facility] [address] [place] [address] Erythrocyte distribution width (RBC) [Ratio] 13.6 % Normal 11.0-15.0 [facility] [employer] Comment on above: Order Comment: [facility] performed at: [employer] [employer] [facility], [address] [place] [address], [address] [place] [address], [address] [place] [address], Photographic Printer: Senthil Ramsey MD [facility] Date/Time: [facility] Received Date/Time: [facility] Reported Date/Time: FASTING: UNKNOWN Performed By: #### L IPD, CMP, TSH, CBCAD #### [facility] [address] [place] [address] Hematocrit (Bld) [Volume fraction] 48.3 % High 35.0-45.0 [facility] [employer] Comment on above: Order Comment: [facility] performed at: [employer] [facility], [address] [place] [address], [address] [place] [address], [address] [place] [address], Photographic Printer: Senthil Ramsey MD [facility] Date/Time: [facility] Received Date/Time: [facility] Reported Date/Time: FASTING: UNKNOWN Performed By: #### L IPD, CMP, TSH, CBCAD #### [facility] [address] [place] [address] Hemoglobin (Bld) [Mass/Vol] 16.7 g/dL High 11.7-15.5 [facility] [employer] Comment on above: Order Comment: [facility] performed at: [employer] [facility], [address] [place] [address], [address] [place] [address], [address] [place] [address], Photographic Printer: Senthil Ramsey MD [facility] Date/Time: [facility] Received Date/Time: [facility] Reported Date/Time: FASTING: UNKNOWN Performed By: #### L IPD, CMP, TSH, CBCAD #### [facility] [address] [place] [address] Lymphocytes (Bld) [#/Vol] 4.428 10*3/uL High 850-3900 [facility] [employer] Comment on above: Order Comment: [facility] performed at: [employer] [facility], [address] [place] [address], [address] [place] [address], [address] [place] [address], Photographic Printer: Senthil Ramsey MD [facility] Date/Time: [facility] Received Date/Time: [facility] Reported Date/Time: FASTING: UNKNOWN Performed By: #### L IPD, CMP, TSH, CBCAD #### [facility] [address] [place] [address] Lymphocytes/100 WBC (Bld) 41.0 % Normal [facility] [employer] Comment on above: Order Comment: [facility] performed at: [employer] [facility], [address] [place] [address], [address] [place] [address], [phone], Photographic Printer: Senthil Ramsey MD [facility] Date/Time: [facility] Received Date/Time: [facility] Reported Date/Time: FASTING: UNKNOWN Performed By: #### L IPD, CMP, TSH, CBCAD #### [facility] [address] [place] [address] MCH (RBC) [Entitic mass] 31.0 pg Normal 27.0-33.0 [facility] [employer] Comment on above: Order Comment: [facility] performed at: [employer] [facility], [address] [place] [address], [address] [place] [address], [phone], Photographic Printer: Senthil Ramsey MD [facility] Date/Time: [facility] Results Received Date/Time: [facility] Reported Date/Time: FASTING: UNKNOWN Performed By: #### L IPD, CMP, TSH, CBCAD #### [facility] Default [address] [place] [address] MCHC (RBC) [Mass/Vol] 34.6 g/dL Normal 32.0-36.0 [facility] Comment on above: Order Comment: [facility] Testing performed at: [employer], [employer] [facility], [address] [facility], [address] [place] [address], [address] [place] [address], Photographic Printer: Senthil Ramsey MD [facility] Collection Date/Time: [facility] Results Received Date/Time: [facility] Reported Date/Time: FASTING: UNKNOWN Performed By: #### L IPD, CMP, TSH, CBCAD #### [facility] Default [address] [place] [address] MCV (RBC) [Entitic vol] 89.6 fL Normal 80.0-100.0 [facility] Comment on above: Order Comment: [facility] performed at: [employer], [employer] [facility], [address] [place] [address], [address] [place] [address], [address] [place] [address], Photographic Printer: Senthil Ramsey MD [facility] Collection Date/Time: [facility] Results Received Date/Time: [facility] Reported Date/Time: FASTING: UNKNOWN Performed By: #### L IPD, CMP, TSH, CBCAD #### [facility] Default [address] [place] [address] MONOABS 605 cells/uL Normal 200-950 [facility] Comment on above: Order Comment: [facility] performed at: [employer] [facility], [address] [place] [address], [address] [place] [address], [address] [place] [address], Photographic Printer: Senthil Ramsey MD [facility] Collection Date/Time: [facility] Results Received Date/Time: [facility] Reported Date/Time: FASTING: UNKNOWN Performed By: #### L IPD, CMP, TSH, CBCAD #### [facility] Default [address] [place] [address] Monocytes/100 WBC (Bld) 5.6 % Normal [facility] Comment on above: Order Comment: [facility] performed at: [employer], [employer] [facility], [address] [place] [address], [address] [place] [address], [address] [place] [address], Photographic Printer: Senthil Ramsey MD [facility] Collection Date/Time: [facility] Results Received Date/Time: [facility] Reported Date/Time: FASTING: UNKNOWN Performed By: #### L IPD, CMP, TSH, CBCAD #### [facility] [address] [place] [address] Neutrophils (Bld) [#/Vol] 5.573 10*3/uL Normal 6015-3523 [facility] [employer] Operator Comment on above: Order Comment: [facility] performed at: [employer], [employer] [facility], [address] [place] [address], [address] [place] [address], [address] [place] [address], Photographic Printer: Senthil Ramsey MD [facility] Collection Date/Time: [facility] Results Received Date/Time: [facility] Reported Date/Time: FASTING: UNKNOWN Performed By: #### L IPD, CMP, TSH, CBCAD #### [facility] [address] [place] [address] Neutrophils/100 WBC (Bld) 51.6 % Normal [facility] [employer] Operator Comment on above: Order Comment: [facility] performed at: [employer] [facility], [address] [place] [address], [address] [place] [address], [address] [place] [address], Photographic Printer: Senthil Ramsey MD [facility] Collection Date/Time: [facility] Results Received Date/Time: [facility] Reported Date/Time: FASTING: UNKNOWN Performed By: #### L IPD, CMP, TSH, CBCAD #### [facility] Default [address] [place] [address] Platelet mean volume (Bld) [Entitic vol] 11.4 fL Normal 7.5-12.5 [facility] [employer] Operator Comment on above: Order Comment: [facility] performed at: [employer] [facility], [address] [place] [address], [address] [place] [address], [address] [place] [address], Photographic Printer: Senthil Ramsey MD [facility] Collection Date/Time: [facility] Results Received Date/Time: [facility] Reported Date/Time: FASTING: UNKNOWN Performed By: #### L IPD, CMP, TSH, CBCAD #### [facility] [address] [place] [address] Platelets (Bld) [#/Vol] 239 10*3/uL Normal 140-400 [facility] Comment on above: Order Comment: [facility] Testing performed at: [employer] [facility], [address] [place] [address], [address] [place] [address], [address] [place] [address], Photographic Printer: Senthil Ramsey MD [facility] Collection Date/Time: [facility] Results Received Date/Time: [facility] Reported Date/Time: FASTING: UNKNOWN Performed By: #### L IPD, CMP, TSH, CBCAD #### [facility] Default [address] [place] [address] RBC (Bld) [#/Vol] 5.39 10*6/uL High 3.80-5.10 [facility] Comment on above: Order Comment: [facility] Testing performed at: [employer] [facility], [address] [place] [address], [address] [place] [address], [address] [place] [address], Photographic Printer: Senthil Ramsey MD [facility] Collection Date/Time: [facility] Results Received Date/Time: [facility] Reported Date/Time: FASTING: UNKNOWN Performed By: #### L IPD, CMP, TSH, CBCAD #### [facility] Default [address] [place] [address] WBC (Bld) [#/Vol] 10.8 10*3/uL Normal 3.8-10.8 [facility] Comment on above: Order Comment: [facility] Testing performed at: [employer] [facility], [address] [place] [address], [address] [place] [address], [address] [place] [address], Photographic Printer: Senthil Ramsey MD [facility] Collection Date/Time: [facility] Results Received Date/Time: [facility] Reported Date/Time: FASTING: UNKNOWN Performed By: #### L IPD, CMP, TSH, CBCAD #### [facility] Default [address] [place] [address] Comprehensive Metabolic Pane [facility] 07-17-2021 Albumin [Mass/Vol] 4.2 g/dL Normal 3.6-5.1 [facility] Specialist Comment on above: Order Comment: [facility] Testing performed at: [employer] [facility], [address] [place] [address], [address] [place] [address], [address] [place] [address], Photographic Printer: Senthil Ramsey MD [facility] Collection Date/Time: [facility] Results Received Date/Time: [facility] Reported Date/Time: FASTING: UNKNOWN Performed By: #### L IPD, CMP, TSH, CBCAD #### [facility] Default [address] [place] [address] Albumin/Globulin [Mass ratio] 1.4 {ratio} Normal 1.0-2.5 [facility] [employer] Operator Comment on above: Order Comment: [facility] performed at: [employer] [facility], [address] [place] [address], [address] [place] [address], [address] [place] [address], Photographic Printer: Senthil Ramsey MD [facility] Collection Date/Time: [facility] Results Received Date/Time: [facility] Reported Date/Time: FASTING: UNKNOWN Performed By: #### L IPD, CMP, TSH, CBCAD #### [facility] Default [address] [place] [address] ALP [Catalytic activity/Vol] 65 U/L Normal 31-125 [facility] [employer] Operator Comment on above: Order Comment: [facility] performed at: [employer] [facility], [address] [place] [address], [address] [place] [address], [address] [place] [address], Photographic Printer: Senthil Ramsey MD [facility] Collection Date/Time: [facility] Results Received Date/Time: [facility] Reported Date/Time: FASTING: UNKNOWN Performed By: #### L IPD, CMP, TSH, CBCAD #### [facility] Default [address] [place] [address] ALT [Catalytic activity/Vol] 30 U/L High 6-[address] [facility] Specialist Comment on above: Order Comment: [facility] Testing performed at: [employer] [facility], [address] [place] [address], [address] [place] [address], [address] [place] [address], Photographic Printer: Senthil Ramsey MD [facility] Collection Date/Time: [facility] Results Received Date/Time: [facility] Reported Date/Time: FASTING: UNKNOWN Performed By: #### L IPD, CMP, TSH, CBCAD #### [facility] Default [address] [place] [address] Anion gap [Moles/Vol] 20 mmol/L Normal 12-20 [facility] Comment on above: Order Comment: [facility] performed at: [employer] [facility], [address] [place] [address], [address] [place] [address], [address] [place] [address], Photographic Printer: Senthil Ramsey MD [facility] Collection Date/Time: [facility] Results Received Date/Time: [facility] Reported Date/Time: FASTING: UNKNOWN Result Comment: Effe ctive 03/16/2019 reference range changed. Performed By: #### L IPD, CMP, TSH, CBCAD #### [facility] Default [address] [place] [address] AST [Catalytic activity/Vol] 15 U/L Normal 10-[address] [facility] Specialist Comment on above: Order Comment: [facility] performed at: [employer] [facility], [address] [place] [address], [address] [place] [address], [address] [place] [address], Photographic Printer: Senthil Ramsey MD [facility] Collection Date/Time: [facility] Results Received Date/Time: [facility] Reported Date/Time: FASTING: UNKNOWN Performed By: #### L IPD, CMP, TSH, CBCAD #### [facility] Default [address] [place] [address] Bilirubin [Mass/Vol] 0.4 mg/dL Normal 0.2-1.2 [place] [facility] [place] [employer] Operator Comment on above: Order Comment: [facility] performed at: [employer] [facility], [address] [place] [address], [address] [place] [address], [address] [place] [address], Photographic Printer: Senthil Ramsey MD [facility] Collection Date/Time: [facility] Results Received Date/Time: [facility] Reported Date/Time: FASTING: UNKNOWN Performed By: #### L IPD, CMP, TSH, CBCAD #### [facility] Default [address] [place] [address] BUN/CREA 24 NOT APPLICABLE Normal 6-22 [facility] devi [place] [employer] Operator Comment on above: Order Comment: [facility] performed at: [employer] [facility], [address] [place] [address], [address] [place] [address], [address] [place] [address], Photographic Printer: Senthil Ramsey MD [facility] Collection Date/Time: [facility] Results Received Date/Time: [facility] Reported Date/Time: FASTING: UNKNOWN Performed By: #### L IPD, CMP, TSH, CBCAD #### [facility] Default [address] [place] [address] Calcium [Mass/Vol] 10.2 mg/dL Normal 8.6-10.2 [facility] [employer] Operator Comment on above: Order Comment: [facility] Testing performed at: [employer] [facility], [address] [place] [address], [address] [place] [address], [address] [place] [address], Photographic Printer: Senthil Ramsey MD [facility] Collection Date/Time: [facility] Results Received Date/Time: [facility] Reported Date/Time: FASTING: UNKNOWN Performed By: #### L IPD, CMP, TSH, CBCAD #### [facility] Default [address] [place] [address] Chloride [Moles/Vol] 103 mmol/L Normal 98-110 [place] [employer] Operator Comment on above: Order Comment: [facility] performed at: [employer] [facility], [address] [place] [address], [address] [place] [address], [address] [place] [address], Photographic Printer: Senthil Ramsey MD [facility] Collection Date/Time: [facility] Results Received Date/Time: [facility] Reported Date/Time: FASTING: UNKNOWN Performed By: #### L IPD, CMP, TSH, CBCAD #### [facility] Default [address] [place] [address] CO2 [Moles/Vol] 22 mmol/L Normal 20-32 [facility] [employer] Operator Comment on above: Order Comment: [facility] performed at: [employer] [facility], [address] [place] [address], [address] [place] [address], [address] [place] [address], Photographic Printer: Senthil Ramsey MD [facility] Collection Date/Time: [facility] Results Received Date/Time: [facility] Reported Date/Time: FASTING: UNKNOWN Performed By: #### L IPD, CMP, TSH, CBCAD #### [facility] Default [address] [place] [address] Creatinine [Mass/Vol] 0.75 mg/dL Normal 0.50-1.10 [facility] Telegraph[employer] Typewriter Operator Comment on above: Order Comment: [facility] Testing performed at: [employer] [facility], [address] [place] [address], [address] [place] [address], [address] [place] [address], Photographic Printer: Senthil Ramsey MD [facility] Collection Date/Time: [facility] Results Received Date/Time: [facility] Reported Date/Time: FASTING: UNKNOWN Performed By: #### L IPD, CMP, TSH, CBCAD #### [facility] Default [address] [place] [address] eGFRAA ([facility]) 108 mL/min/1.73m2 Normal > OR = 60 [facility] [employer] Type[employer] Operator Comment on above: Order Comment: [facility] Testing performed at: [employer] [facility], [address] [place] [address], [address] [place] [address], [address] [place] [address], Photographic Printer: Senthil Ramsey MD [facility] Collection Date/Time: [facility] Results Received Date/Time: [facility] Reported Date/Time: FASTING: UNKNOWN Performed By: #### L IPD, CMP, TSH, CBCAD #### [facility] Default [address] [place] [address] eGFRNAA ([facility]) 94 mL/min/1.73m2 Normal > OR = 60 [facility] [employer] Operator Comment on above: Order Comment: [facility] Testing performed at: [employer] [facility], [address] [place] [address], [address] [place] [address], [address] [place] [address], Photographic Printer: Senthil Ramsey MD [facility] Collection Date/Time: [facility] Results Received Date/Time: [facility] Reported Date/Time: FASTING: UNKNOWN Performed By: #### L IPD, CMP, TSH, CBCAD #### [facility] Default [address] [place] [address] Globulin (S) [Mass/Vol] 3.0 g/dL Normal 1.9-3.7 N [facility] [employer] Operator Comment on above: Order Comment: [facility] performed at: [employer] [facility], [address] [place] [address], [address] [place] [address], [address] [place] [address], Photographic Printer: Senthil Ramsey MD [facility] Collection Date/Time: [facility] Results Received Date/Time: [facility] Reported Date/Time: FASTING: UNKNOWN Performed By: #### L IPD, CMP, TSH, CBCAD #### [facility] Default [address] [place] [address] Glucose [Mass/Vol] 132 mg/dL High 65-99 [facility] [employer] Operator Comment on above: Order Comment: [facility] performed at: [employer] [facility], [address] [place] [address], [address] [place] [address], [address] [place] [address], Photographic Printer: Senthil Ramsey MD [facility] Collection Date/Time: [facility] Results Received Date/Time: [facility] Reported Date/Time: FASTING: UNKNOWN Result Comment: Fasting reference interval For someone without known diabetes, a glucose value >125 mg/dL indicates that they may have diabetes and this should be confirmed with a follow-up test. Performed By: #### L IPD, CMP, TSH, CBCAD #### [facility] Default [address] [place] [address] Potassium [Moles/Vol] 3.9 mmol/L Normal 3.5-5.3 [place] [employer] Operator Comment on above: Order Comment: [facility] performed at: [employer] [facility], [address] [place] [address], [address] [place] [address], [id number], Photographic Printer: Senthil Ramsey MD [facility] Collection Date/Time: [facility] Results Received Date/Time: [facility] Reported Date/Time: FASTING: UNKNOWN Performed By: #### L IPD, CMP, TSH, CBCAD #### [facility] Default [address] [place] [address] Protein [Mass/Vol] 7.2 g/dL Normal 6.1-8.1 [place] [place] [employer] Operator Comment on above: Order Comment: [facility] performed at: [employer] [facility], [address] [place] [address], [address] [place] [address], [address] [place] [address], Photographic Printer: Senthil Ramsey MD [facility] Collection Date/Time: [facility] Results Received Date/Time: [facility] Reported Date/Time: FASTING: UNKNOWN Performed By: #### L IPD, CMP, TSH, CBCAD #### [facility] Default [address] [place] [address] Sodium [Moles/Vol] 141 mmol/L Normal 135-146 [place] [employer] Operator Comment on above: Order Comment: [facility] performed at: [employer] [facility], [address] [place] [address], [address] [place] [address], [address] [place] [address], Photographic Printer: Senthil Ramsey MD [facility] Collection Date/Time: [facility] Results Received Date/Time: [facility] Reported Date/Time: FASTING: UNKNOWN Performed By: #### L IPD, CMP, TSH, CBCAD #### [facility] Default [address] [place] [address] Urea nitrogen [Mass/Vol] 18 mg/dL Normal 7-25 [facility] [employer] Typewriter Operator Comment on above: Order Comment: [facility] performed at: [employer] [facility], [address] [place] [address], [address] [place] [address], [address] [place] [address], Photographic Printer: Senthil Ramsey MD [facility] Collection Date/Time: [facility] Results Received Date/Time: [facility] Reported Date/Time: FASTING: UNKNOWN Performed By: #### L IPD, CMP, TSH, CBCAD #### [facility] Default [address] [place] [address] Lipid Panelon 07-17-2021 Cholesterol [Mass/Vol] 306 mg/dL High <200 [facility] Comment on above: Order Comment: [facility] performed at: [employer] [facility], [address] [place] [address], [address] [place] [address], [address] [place] [address], Photographic Printer: Senthil Ramsey MD [facility] Collection Date/Time: [facility] Results Received Date/Time: [facility] Reported Date/Time: FASTING: UNKNOWN Performed By: #### L IPD, CMP, TSH, CBCAD #### [facility] Default [address] [place] [address] Cholesterol in HDL [Mass/Vol] 49 mg/dL Low > OR = 50 [facility] Telegraphic Typewriter Operator Comment on above: Order Comment: [facility] performed at: [employer] [facility], [address] [place] [address], [address] [place] [address], [address] [place] [address], Photographic Printer: Senthil Ramsey MD [facility] Collection Date/Time: [facility] Results Received Date/Time: [facility] Reported Date/Time: FASTING: UNKNOWN Performed By: #### L IPD, CMP, TSH, CBCAD #### [facility] Default [address] [place] [address] LDLD SEE NOTE Normal [facility] [employer] Typewriter Operator Comment on above: Order Comment: [facility] performed at: [employer], [employer] [facility], [address] [facility], [address] [place] [address], [id number], Photographic Printer: Senthil Ramsey MD [facility] Date/Time: [facility] [...] factors. LDL-C is now calculated using the Nabil-Wliian calculation, which is a validated novel method providing better accuracy than the Friedewald equation in the estimation of LDL-C. Nabil SS et al. CHRISTIN. 2013;310(19): 4106-2077 (http://education.AdNear/faq/FFW822) Performed By: #### L IPD, CMP, TSH, CBCAD #### [facility] Default [address] [place] [address] NON HDL CHOLESTEROL 257 mg/dL (calc) High <130 [facility] [employer] Typewriter Operator Comment on above: Order Comment: [facility] performed at: [employer] [facility], [address] [facility], [address] [place] [address], [place], [address], Photographic Printer: Senthil Ramsey MD [facility] Collection Date/Time: [facility] [...] TSH, CBCAD #### [facility] Default [address] [place] [address] Triglyceride [Mass/Vol] 403 mg/dL High <150 [facility] Comment on above: Order Comment: [facility] performed at: [employer] [facility], [address] , [address] [place] [address], [phone], Photographic Printer: Senthil Ramsey MD [facility] Collection Date/Time: [facility] Results Received Date/Time: [facility] Reported Date/Time: FASTING: UNKNOWN Result Comment: If a non-fasting specimen was collected, consider repeat triglyceride testing on a fasting specimen if clinically indicated. Leonie et al. J. of Clin. Lipidol. 2015;9:129-169. Performed By: #### L IPD, CMP, TSH, CBCAD #### [facility] Default [address] [place] [address] TSHon 07-17-2021 TSH Qn 0.95 m[IU]/L Normal [facility] Specialist Comment on above: Order Comment: [facility] performed at: [employer] [facility], [address] [facility], [address] [place] [address], [address] [place] [address], Photographic Printer: Senthil Ramsey MD [facility] Collection Date/Time: [facility] Results Received Date/Time: [facility] Reported Date/Time: FASTING: UNKNOWN Result Comment: Refe rence Range > or = 20 Years 0.40-4.50 Ranges First trimester 0.26-2.66 Second trimester 0.55-2.73 Third trimester 0.43-2.91 Performed By: #### L IPD, CMP, TSH, CBCAD #### [facility] Default [address] [place] [address] XR Spine Lumbar Complete w/F levi AND [place] 05-25-2021 XR Spine Lumbar Complete w/Flex AND [...] by Rich Soriano on 05/26/2021 0756 Normal [facility] - Hematology and Cell countson 07-22-2020 Nucleated RBC/100 WBC (Bld) [Ratio] 0.2 % 0-0.5 [facility] Vital Signs Date Time Vital Sign Value Performing Clinician Facility 06-12-2023 10:56-0400 Body mass index (BMI) [Ratio] 33.81 kg/m2 Live Verhoff PA-C Work Phone: [facility] [employer] [facility] 06-12-2023 10:56-0400 Body weight 89.36 kg Live Verhoff PA-C [facility] Phone[facility] [employer] [facility] 06-12-2023 10:56-0400 Diastolic blood pressure 75 mm[Hg] Live Verhoff PA-C [facility] 06-12-2023 10:56-0400 Heart rate 90 /min Live Verhoff PA-C [facility] 06-12-2023 10:56-0400 Respiratory rate 18 /min Live Verhoff PA-C [facility] 06-12-2023 10:56-0400 SaO2% (BldA) [Mass fraction] 97 % Live Verhoff PA-C Work [facility] 06-12-2023 10:56-0400 Systolic blood pressure 152 mm[Hg] Live Verhoff PA-C Work Phone: [facility] [employer] [facility] 04-25-2023 14:26-0500 Body height 165.1 cm [facility] 04-25-2023 14:26-0500 Body mass index (BMI) [Ratio] 34 kg/m2 [facility] 04-25-2023 14:26-0500 Body temperature 97.2 [degF] [facility] 04-25-2023 14:26-0500 Body weight 92.7 kg [facility] 04-25-2023 14:26-0500 Diastolic blood pressure 70 mm[Hg] [facility] 04-25-2023 14:26-0500 Heart rate 102 /min [facility] 04-25-2023 14:26-0500 Respiratory rate 16 /min [facility] 04-25-2023 14:26-0500 SaO2% (BldA) [Mass fraction] 97 % [facility] 04-25-2023 14:26-0500 Systolic blood pressure 139 mm[Hg] [facility] 04-11-2023 14:14-0500 Body height 165.1 cm Eliazar Pires DPM Work Phone: [facility] 04-11-2023 14:14-0500 Body mass index (BMI) [Ratio] 33.45 kg/m2 Eliazar Pires DPM Work Phone: [facility] 04-11-2023 14:14-0500 Body weight 91.17 kg Eliazar Pires DPM Work Phone: [facility] 04-11-2023 14:14-0500 Diastolic blood pressure 80 mm[Hg] Eliazar Pires DPM Work Phone: [facility] 04-11-2023 14:14-0500 Heart rate 82 /min Eliazar Pires DPM Work Phone: [facility] 04-11-2023 14:14-0500 Systolic blood pressure 130 mm[Hg] Eliazar Pires DPM Work Phone: [facility] 03-15-2023 12:54-0500 Body height 162.6 cm Dennis Foster MD Work Phone: [facility] [employer] [facility] 03-15-2023 12:54-0500 Body mass index (BMI) [Ratio] 35.7 kg/m2 Dennis Foster MD Work Phone: [employer] 03-15-2023 12:54-0500 Body weight 94.35 kg Dennis Foster MD Work Phone: [facility] 03-15-2023 12:54-0500 Diastolic blood pressure 80 mm[Hg] Dennis Foster MD Work Phone: [facility] 03-15-2023 12:54-0500 Heart rate 81 /min Dennis Foster MD Work Phone: [facility] 03-15-2023 12:54-0500 SaO2% (BldA) [Mass fraction] 98 % Dennis Foster MD Work Phone: [facility] 03-15-2023 12:54-0500 Systolic blood pressure 140 mm[Hg] Dennis Foster MD Work Phone: [employer] 10-18-2022 15:00-0400 Body height 165.1 cm Nir Danis Other [employer] Other 10-18-2022 15:00-0400 Body mass index (BMI) [Ratio] 33.08 kg/m2 Nir Danis Other [employer] Other 10-18-2022 15:00-0400 Body temperature 97.1 [degF] Nir Danis Other [employer] Other 10-18-2022 15:00-0400 Body weight 90.18 kg Nir Danis Other [employer] Other 10-18-2022 15:00-0400 Diastolic blood pressure 98 mm[Hg] Nir Danis Other [employer] Other 10-18-2022 15:00-0400 Respiratory rate 18 /min Nir Danis Other [facility] [email or web address] Other 10-18-2022 15:00-0400 SaO2% (BldA) [Mass fraction] 98 % Nir Danis Other [employer] Other 10-18-2022 15:00-0400 Systolic blood pressure 167 mm[Hg] Nir Danis Other [facility] [email or web address] Other 07-12-2022 14:00-0400 Diastolic blood pressure 94 mm[Hg] MD Kala Lloyd Work Phone: [facility] 07-12-2022 14:00-0400 Heart rate 86 /min MD Kala Lloyd Work Phone: [facility] 07-12-2022 14:00-0400 Respiratory rate 16 /min MD Kala Lloyd Work Phone: [facility] 07-12-2022 14:00-0400 SaO2% (BldA) [Mass fraction] 99 % MD Kala Lloyd Work Phone: [facility] 07-12-2022 14:00-0400 Systolic blood pressure 165 mm[Hg] MD Kala Lloyd Work Phone: [facility] 07-12-2022 11:44-0400 Body height 162.56 cm MD Kala Lloyd Work Phone: [facility] 07-12-2022 11:44-0400 Body temperature 98.6 [degF] MD Kala Lloyd Work Phone: [facility] 07-12-2022 11:44-0400 Body weight 94.34 kg MD Kala Lloyd Work Phone: [facility] 06-04-2022 14:15-0400 Body height 165.1 cm Imad Asaad Other [facility] [email or web address] Other 06-04-2022 14:15-0400 Body mass index (BMI) [Ratio] 32.95 kg/m2 Imad Asaad Other [facility] [email or web address] Other 06-04-2022 14:15-0400 Body weight 89.81 kg Imad Asaad Other [facility] [email or web address] Other 06-04-2022 14:15-0400 Diastolic blood pressure 90 mm[Hg] Imad Asaad Other [facility] [email or web address] Other 06-04-2022 14:15-0400 Systolic blood pressure 145 mm[Hg] Imad Asaad Other [facility] [email or web address] Other 05-18-2022 11:46-0500 Body temperature 97.8 [degF] MD Kala Lloyd Work Phone: [facility] 05-18-2022 11:46-0500 Body weight 89.4 kg MD Kala Lloyd Work Phone: [facility] 05-18-2022 11:46-0500 Diastolic blood pressure 86 mm[Hg] MD Kala Lloyd Work Phone: [facility] 05-18-2022 11:46-0500 Heart rate 94 /min MD Kala Lloyd Work Phone: [facility] 05-18-2022 11:46-0500 Respiratory rate 16 /min MD Kala Lloyd Work Phone: [facility] 05-18-2022 11:46-0500 SaO2% (BldA) [Mass fraction] 98 % MD Kala Lloyd Work Phone: [facility] 05-18-2022 11:46-0500 Systolic blood pressure 149 mm[Hg] MD Kala Lloyd Work Phone: [facility] 04-12-2022 12:40-0500 Body height 165.1 cm Nir Danis Other [employer] Other 04-12-2022 12:40-0500 Body mass index (BMI) [Ratio] 32.85 kg/m2 Nir Dansi Other [employer] Other 04-12-2022 12:40-0500 Body temperature 96.7 [degF] Nir Danis Other [employer] Other 04-12-2022 12:40-0500 Body weight 89.54 kg Nir Danis Other [employer] Other 04-12-2022 12:40-0500 Diastolic blood pressure 84 mm[Hg] Nir Danis Other [employer] Other 04-12-2022 12:40-0500 Respiratory rate 18 /min Nir Danis Other [employer] Other 04-12-2022 12:40-0500 SaO2% (BldA) [Mass fraction] 97 % Nir Danis Other [employer] Other 04-12-2022 12:40-0500 Systolic blood pressure 139 mm[Hg] Nir Danis Other [employer] Other 09-14-2021 13:00-0400 Body height 165.1 cm Nir Danis Other [employer] Other 09-14-2021 13:00-0400 Body mass index (BMI) [Ratio] 34.44 kg/m2 Nir Danis Other [employer] Other 09-14-2021 13:00-0400 Body temperature 96.6 [degF] Nir Danis Other [employer] Other 09-14-2021 13:00-0400 Body weight 93.9 kg Nir Danis Other [employer] Other 09-14-2021 13:00-0400 Diastolic blood pressure 80 mm[Hg] Nir Danis Other [employer] Other 09-14-2021 13:00-0400 Respiratory rate 18 /min Nir Danis Other [employer] Other 09-14-2021 13:00-0400 SaO2% (BldA) [Mass fraction] 97 % Nir Danis Other [employer] Other 09-14-2021 13:00-0400 Systolic blood pressure 132 mm[Hg] Nir Danis Other [employer] Other 04-22-2020 14:49-0500 Body height 165.1 cm MD Kala Lloyd Work Phone: [facility] Encounters Encounter Date Encounter Type Care Provider Facility Start: 06-29-2023 End: 06-29-2023 ambulatory [address]YMUNDO GIRON [facility] Start: 06-21-2023 End: 06-21-2023 Emergency department patient visit KAYLIE CHAVEZ [facility] Start: 06-20-2023 End: 06-20-2023 ambulatory ELIAZAR PIRES Not Available Start: 06-12-2023 End: 06-12-[address] [facility] Start: 06-12-2023 End: 06-12-2023 Office outpatient visit 25 minutes Live Monk PA-C Work Phone: [facility] Comment on above: Lumbar spondylosis ( Primary Dx) Start: 05-18-2023 End: 05-18-[address] BARBOUR [facility] Start: 05-17-2023 End: 05-18-2023 ambulatory [address]UN[address] GIRON [facility] Start: 04-26-2023 Telephone encounter Gabriella Wong RN [facility] Comment on above: Surgical Or Dental C learance Start: 04-25-2023 End: 04-25-2023 ambulatory [facility] Work Phone: Start: 04-25-2023 End: 04-25-2023 Patient encounter procedure [facility] Jean Work Phone: Start: 04-22-2023 End: 04-23-2023 ambulatory KAYLIE CHAVEZ Not Available Start: 04-16-2023 Registered Recurring BATTERY WRECKER OPERATORDevi Chavez Work Phone: [facility] Start: 04-15-2023 Chart abstracting Lindy Valentino [facility] Work Phone: [facility] Start: 04-15-2023 End: 04-15-2023 ambulatory LINDY VALENTINO Not Available Start: 04-11-2023 End: 04-11-2023 ambulatory ELIAZAR PIRES Not Available Start: 04-11-2023 End: 04-11-2023 Office outpatient visit 15 minutes Eliazar Pires DPM Work Phone: [facility] Comment on above: Metatarsalgia, left foot (Primary Dx); Diabetes 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 polyneuropathy, with long-term current use of insulin ([facility]); Onychomycosis; Toe pain, right; Toe pain, left Start: 04-05-2023 End: 04-05-2023 ambulatory KALA LLOYD Not Available Start: 04-02-2023 End: 04-02-2023 ambulatory LAVERNE PORTER Not Available Start: 04-01-2023 End: 04-02-2023 ambulatory DENNIS [facility] Start: 04-01-2023 End: 04-01-2023 ambulatory DENNIS [facility] Start: 03-29-2023 End: 04-01-2023 ambulatory REYMUNDO [facility] Start: 03-28-2023 Telephone encounter Don Taylor RN [facility] Comment on above: Direct LDL Start: 03-27-2023 End: 04-11-2023 ambulatory DENNIS [facility] Start: 03-26-2023 Telephone encounter Louise Hale RN [facility] Start: 03-15-2023 End: 03-16-2023 ambulatory BRANDON QIAN Not Available Start: 03-15-2023 End: 03-15-2023 ambulatory [facility]NIS [facility] Start: 03-15-2023 End: 03-15-2023 Office outpatient visit 25 minutes Dennis oFster MD Work Phone: [facility] Comment on above: Chest pain, unspecif ied type (Primary Dx); Primary hypertension; Familial hypercholesterolemia; Abnormal EKG Start: 03-14-2023 Telephone encounter Ramila Jones CMA [facility] Start: 02-27-2023 End: 02-27-2023 ambulatory LIVE [facility] Start: 02-20-2023 End: 02-20-2023 ambulatory LINDY VALENTINO Not Available Start: 02-14-2023 End: 02-14-2023 ambulatory ELIAZAR PIRES Not Available Start: 02-06-2023 End: 02-06-2023 ambulatory LINDY VALENTINO Not Available Start: 01-28-2023 End: 01-29-2023 ambulatory BRANDON QIAN Not Available Start: 01-21-2023 End: 01-21-2023 ambulatory KAYLIE CHAVEZ Not Available Start: 10-18-2022 End: 10-18-2022 ambulatory Nir Horvath Other [facility] [email or web address] Other Start: 10-18-2022 Office outpatient visit 25 minutes Nir Danis [facility] Start: 09-05-2022 End: 09-05-2022 ambulatory Imad Asaad Facility:[facility] Start: 08-09-2022 End: 08-09-2022 ambulatory Kaylie R Chavez Facility:[facility] Start: 08-09-2022 End: 08-09-2022 ambulatory MD Kala Lloyd Work Phone: [facility] Work Phone: Start: 08-09-2022 End: 08-09-2022 Patient encounter procedure MD Kala Lloyd Work Phone: [facility] Work Phone: Start: 07-25-2022 End: 07-25-2022 ambulatory Kaylie R Scott Facility:[facility] Start: 07-25-2022 End: 07-25-2022 Patient encounter procedure MD Kala Lloyd Work Phone: [facility] [place] Work Phone: Start: 07-23-2022 End: 07-23-2022 ambulatory Nir Danis Facility:[facility] Start: 07-23-2022 End: 07-23-2022 ambulatory MD Kala Lloyd Work Phone: [facility] Work Phone: Start: 07-23-2022 End: 07-23-2022 Patient encounter procedure MD Kala Lloyd Work Phone: [facility] [place] Work Phone: Start: 07-18-2022 Telephone encounter Nir Danis [facility] Start: 07-18-2022 End: 07-19-2022 ambulatory NIR DANIS [facility] [employer] Other Start: 07-12-2022 End: 07-12-2022 ambulatory Kaylie R Chavez Facility:[facility] Start: 07-12-2022 End: 07-12-2022 Admission to same day surgery center MD Kala Lloyd Work Phone: [facility] Work Phone: Start: 07-12-2022 End: 07-12-2022 ambulatory MD Kala Lloyd Work Phone: [facility] Work Phone: Start: 07-10-2022 Registered Recurring MD Kala tam Work Phone: [facility] Start: 07-02-2022 End: 07-03-2022 ambulatory NIR DANIS Facility:[facility] Start: 06-04-2022 End: 06-04-2022 ambulatory Imad Asaad Other [employer] Other Start: 06-04-2022 Office outpatient ne w 45 minutes Imad Asaad [facility] Start: 05-18-2022 End: 05-18-2022 ambulatory MD Kala Lloyd Work Phone: [facility] Work Phone: Start: 05-18-2022 End: 05-18-2022 Registered Recurring MD Kala Lloyd Work Phone: [facility] Work Phone: Start: 04-12-2022 End: 04-13-2022 ambulatory NIR DANIS [facility] [employer] Other Start: 04-12-2022 Office outpatient visit 25 minutes Nir Danis [facility] Start: 04-05-2022 End: 04-06-2022 ambulatory NIR DANIS Facility: Start: 02-07-2022 End: 02-08-2022 ambulatory Eliazar Pires Facility:[facility] Start: 02-07-2022 End: 02-07-2022 Lab Drop off Eliazar Pires [facility] Start: 02-05-2022 End: 02-06-2022 ambulatory Eliazar Pires Facility:[facility] Start: 02-05-2022 End: 02-05-2022 Patient encounter procedure Eliazar Pires [facility] Start: 01-08-2022 End: 01-09-2022 ambulatory Eliazar Pires Facility:[facility] Start: 01-08-2022 End: 01-08-2022 Patient encounter procedure Eliazar Pires [facility] Start: 09-14-2021 End: 09-14-2021 ambulatory Nir Danis Other [employer] Other Start: 09-14-2021 Office outpatient visit 25 minutes Nir Danis [facility] Start: 09-12-2021 End: 09-13-2021 ambulatory NIR DANIS Facility:[facility] Start: 08-30-2021 End: 08-31-[address] DOCTOR HURT Facility: Procedures Date Procedure Procedure Detail Performing Clinician Start: 03-15-2023 Follow-up visit Follow-up DENNIS FOSTER Start: 03-15-2023 Ecg routine ecg w/least 12 lds w/i&r Dennis Foster MD Work Phone: Start: 09-05-2022 Colonoscopy Eliazar Pires DPM Work Phone: Start: 08-09-2022 Ultrasound elastography of liver MD Kala Lloyd Work Phone: Start: 07-25-2022 Computed tomography of abdomen and pelvis with contrast MD Kala Lloyd Work Phone: Start: 07-23-2022 History of total hysterectomy Hx of total hysterectomy Eliazar Pires DPM Work Phone: Start: 07-23-2022 Single photon emission computed tomography of parathyroid MD Kala Lloyd Work Phone: Start: 07-12-2022 Esophagogastroduodenoscopy MD Kala Lloyd Work Phone: Start: 03-09-2022 Mammography Eliazar Pires DPM Work Phone: Plan of Treatment Date Care Activity Detail Author Start: 09-05-2032 Screening for malignant neoplasm of colon [facility] Start: 06-11-2024 Adult BMI Screening Adult BMI Screening [facility] Start: 06-11-2024 Tobacco Screening Tobacco Screening [facility] Start: 05-16-2024 Tobacco Screening Tobacco Screening [facility] Start: 04-01-2024 Adult BMI Screening Adult BMI Screening [facility] Start: 04-01-2024 Tobacco Screening Tobacco Screening [facility] Start: 03-15-2024 Adult BMI Screening Adult BMI Screening [facility] Start: 03-15-2024 Tobacco Screening Tobacco Screening [facility] Start: 02-28-2024 Tobacco Screening Tobacco Screening [facility] Start: 01-23-2024 Adult BMI Screening Adult BMI Screening [facility] Start: 11-10-2023 Influenza vaccination Influenza Vaccine [facility] Start: 09-28-2023 Glaucoma screening Diabetes: Retinopathy Screening [facility] Start: 09-08-2023 Influenza vaccination Influenza Vaccine (#1) [facility] Comment on above: Postponed from 11/09/2022 (Patient Refus ed) Start: 08-14-2023 End: 08-14-2023 Patient encounter procedure 08/14/2023 12:45 PM EDT Office Visit [facility] [address] [place] [address] Live Monk, PADarrellC [address] [place] [address] [facility] Start: 07-12-2023 End: 07-12-2023 Admission to same day surgery center 07/12/2023 11:00 AM EDT - 07/12/2023 11:11 AM EDT Surgery [facility] [address] [place] [phone] Reymundo Giron MD [address] [place], [place] [id number] RADIOFREQUENCY ABLATION SPINAL Left L 2/3, 3/4 [14064 (CPT )] [facility] Comment on above: RADIOFREQUENCY ABLATION SPINAL Left L 2/ 3, 3/4 [95823 (CPT )] Start: 07-12-2023 End: 07-12-2023 Dstr nrolytc agnt parverteb fct sngl lmbr/sacral RADIOFREQUENCY ABLATION SPINAL Lumbar spondylosis 07/12/2023 11:00 AM EDT [facility] Start: 07-12-2023 Subsequent hospital visit by physician 07/12/2023 11:00 AM EDT Hospital Encounter [facility] [address] [place] [phone] Reymundo Giron MD [address] [place], [place] [id number] [facility] Start: 07-02-2023 End: 07-02-2023 Patient encounter procedure 07/02/2023 2:15 PM EDT Office Visit [facility] [address] [place] [address] Laverne Porter, [address] [place] [address] [facility] Start: 07-02-2023 Hemoglobin A1c measurement Diabetes: Hemoglobin A1C [facility] Start: 06-28-2023 End: 06-28-2023 Admission to same day surgery center 06/28/2023 11:00 AM EDT - 06/28/2023 11:11 AM EDT Surgery [facility] [address] [facility] [place] [phone] Reymundo Giron MD [address] [facility] [place] [address] RADIOFREQUENCY ABLATION SPINAL Right L 2/3 3/4 [42938 (CPT )] [facility] Comment on above: RADIOFREQUENCY ABLATION SPINAL Right L 2 /3 3/4 [65376 (CPT )] Start: 06-28-2023 End: 06-28-2023 Dstr nrolytc agnt parverteb fct sngl lmbr/sacral RADIOFREQUENCY ABLATION SPINAL Lumbar spondylosis 06/28/2023 11:00 AM EDT [facility] Start: 06-28-2023 Subsequent hospital visit by physician 06/28/2023 11:00 AM EDT Hospital Encounter [facility] [address] [place] [phone] Reymundo Giron MD [address] [place], [place] [phone] [facility] Start: 06-20-2023 End: 06-20-2023 Patient encounter procedure 06/20/2023 2:00 PM EDT Office Visit [facility] [address] [facility] [address] [place] [phone] Eliazar Pires, DPM [address] [facility] [address] [place] [address] [facility] Start: 06-12-2023 End: 06-12-2023 Patient encounter procedure 06/12/2023 10:45 AM EDT Office Visit [facility] [address] [place] [phone] Live Monk, PADarrellC [address] [place], [place] [id number] [facility] Start: 04-17-2023 End: 04-17-2023 Patient encounter procedure 04/17/2023 2:30 PM EST Office Visit [facility] [address] [place] [phone] Live Monk, MAKAYLA [address] [place] [address] [facility] Start: 04-15-2023 End: 04-15-2023 Clinical Support 04/15/2023 11:00 AM EST Clinical Support [facility] [address] [place] [address] Lindy Valentino, [facility] [address] [place] [address] [facility] Start: 04-01-2023 End: 04-01-2023 Patient encounter procedure [facility] Start: 03-29-2023 End: 03-29-2023 Admission to same day surgery center 03/29/2023 10:34 AM EST - 03/29/2023 10:40 AM EST Surgery [facility] [address] [place] [address] Reymundo Giron MD [address] [place], [place] [id number] INJECTION BLOCK NERVE MEDIAL BRANCH Bilat L 2/3, 3/4 [69516 (CPT )] [facility] Comment on above: INJECTION BLOCK NERVE MEDIAL BRANCH Bila t L 2/3, 3/4 [79658 (CPT )] Start: 03-29-2023 End: 03-29-2023 Njx dx/ther agt pvrt facet jt lmbr/sac 1 level INJECTION BLOCK NERVE MEDIAL BRANCH Lumbar spondylosis 03/29/2023 10:34 AM EST [facility] Start: 03-29-2023 Subsequent hospital visit by physician [facility] Start: 03-29-2023 End: 03-29-2023 Patient encounter procedure 03/29/2023 8:55 AM EST Appointment [facility] [address] [place] [phone] Reymundo Giron MD [address] [place], [place] [phone] [facility] Start: 03-27-2023 End: 03-27-2023 Patient encounter procedure [facility] Start: 03-22-2023 End: 03-15-2024 Basic metabolic 2000 panel - Serum or Plasma Basic Metabolic Panel Lab Routine Primary hypertension Familial hypercholesterolemia Chest pain, unspecified type Abnormal EKG Expected: 03/22/2023 (Approximate), Expires: 03/15/2024 [facility] Comment on above: Expected: 03/22/2023 (Approximate), Expi res: 03/15/2024 Start: 03-22-2023 End: 03-15-2024 CBC W Auto Differential panel - Blood CBC auto differential Lab Routine Primary hypertension Familial hypercholesterolemia Chest pain, unspecified type Abnormal EKG Expected: 03/22/2023, Expires: 03/15/2024 [facility] Comment on above: Expected: 03/22/2023, Expires: Start: 03-22-2023 End: 03-15-2024 Lipid 1996 panel - Serum or Plasma Lipid profile Lab Routine Primary hypertension Familial hypercholesterolemia Chest pain, unspecified type Abnormal EKG Expected: 03/22/2023, Expires: 03/15/2024 [facility] [employer] Comment on above: Expected: 03/22/2023, Expires: Start: 03-22-2023 End: 03-14-2024 NM Heart Perfusion W adenosine and W radionuclide IV Nuc stress Lexiscan/Exercise Cardiac Services Routine Chest pain, unspecified type Abnormal EKG Expected: 03/22/2023, Expires: 03/14/2024 [email or web address] Work Phone: Comment on above: Expected: 03/22/2023, Expires: Start: 03-15-2023 End: 03-15-2023 Patient encounter procedure 03/15/2023 1:00 PM EST Office Visit [facility] [address] [place] [address] Dennis Foster MD [address] [place] [address] [facility] Start: 03-09-2023 Screening for malignant neoplasm of breast Mammogram [facility] Start: 11-09-2022 Influenza vaccination Influenza Vaccine [facility] Start: 08-09-2022 [facility] Start: 07-12-2022 [facility] Start: 04-27-2022 [facility] Start: 12-24-2021 Administration of varicella zoster vaccine Zoster (Shingles) Vaccine (1 of 2) [facility] Start: 12-24-1990 DTaP,Tdap and Td Vaccines (1 - Tdap) DTaP,Tdap and Td Vaccines (1 - Tdap) [facility] Start: 12-24-1989 Adult BMI Follow Up Plan Adult BMI Follow Up Plan [facility] Start: 12-24-1989 Diabetic foot examination Diabetic Foot Exam [facility] Start: 1983 Depression Screening Depression Screening [facility] Start: 1971 Glaucoma screening Diabetic Ophthalmology Exam [facility] Start: 1971 Screening for malignant neoplasm of colon [facility] Start: 1971 Tobacco Counseling Tobacco Counseling [facility] End: 03-28-2024 Cholesterol in LDL [Mass/volume] in Serum or Plasma LDL cholesterol, direct Lab Routine Familial hypercholesterolemia 1 Occurrences starting 03/28/2023 until 03/28/2024 [facility] Work Phone: Comment on above: 1 Occurrences starting 03/28/2023 until 03/28/2024 Njx dx/ther agt pvrt facet jt lmbr/sac 1 level INJECTION BLOCK NERVE MEDIAL BRANCH Lumbar spondylosis [facility] Patient Education Gastritis (DC) [facility] Work Phone: Renal function 2000 panel - Serum or Plasma [facility] Immunizations Immunization Date Immunization Notes Care Provider Page celestin 06-21-2021 hepatitis B vaccine, adult dosage Eliazar Brown DPM Work Phone: [facility] 03-01-2020 hepatitis A vaccine, adult dosage Eliazar Brown DPM Work Phone: [facility] 03-01-2020 hepatitis B vaccine, adult dosage Eliazar Brown DPM Work Phone: [facility] 01-24-2020 hepatitis A vaccine, adult dosage Eliazar Brown DPM Work Phone: [facility] 01-24-2020 pneumococcal polysaccharide vaccine, 23 valent Eliazar Brown DPM Work Phone: [facility] 01-24-2020 Seasonal, quadrivalent, recombinant, injectable influenza vaccine, preservative free Eliazar Brown DPM Work Phone: [facility] 01-24-2020 influenza virus vaccine, unspecified formulation Ramila Jones [facility] 12-18-2018 hepatitis A vaccine, adult dosage Eliazar Brown DPM Work Phone: [facility] 12-18-2018 Seasonal, quadrivalent, recombinant, injectable influenza vaccine, preservative free Eliazar Brown DPM Work Phone: [facility] 12-13-2016 influenza virus vaccine, unspecified formulation [facility] 12-13-2016 influenza, injectable, quadrivalent, preservative free Eliazar Brown DPM Work Phone: [facility] 12-13-2016 influenza, injectable,quadrival ent, preservative free, pediatric Nir Danis Other [employer] Other NEGATED: Highlighted row has not occurred! 9 influenza, injectable,quadrival ent, preservative free, pediatric Patient Objection Nir Danis Other [facility] [email or web address] Other Payers Date Payer Category Payer Medicaid [id number] 2022 Unknown [id number] 1971 Unknown [id number] 2.16.8 40.1.109401.3.579.2.727 1971 Unknown [id number] 2.16.8 40.1.024513.3.579.2.727 1971 Unknown [id number] 2.16.8 40.1.087243.3.579.2.727 1971 Unknown [id number] 2.16.84 0.1.282426.3.579.2.593 1971 Unknown [id number] 2.16.84 0.1.928679.3.579.2.593 1971 Unknown [id number] 2.16.84 0.1.959689.3.579.2.593 1971 Unknown [id number] 2.16.84 0.1.937428.3.579.2.593 1971 Unknown [id number] 2.16.84 0.1.051161.3.579.2.593 1971 Unknown [id number] 2.16.84 0.1.456099.3.579.2.593 1971 Unknown [id number] 2.16.84 0.1.497833.3.579.2.1259 1971 Unknown [id number] 2.16.84 0.1.100352.3.579.2.1259 1971 Unknown [id number] 2.16.84 0.1.903975.3.579.2.1259 1971 Unknown [id number] 2.16.84 0.1.857960.3.579.2.1259 1971 Unknown [id number] 2.16.84 0.1.971337.3.579.2.1259 1971 Unknown [id number] 2.16.84 0.1.657726.3.579.2.1259 1971 Unknown [id number] 2.16.84 0.1.846070.3.579.2.1259 1971 Unknown [id number] 2.16.840 .1.131168.3.579.2.1259 1971 Unknown [id number] 2.16.840 .1.513685.3.579.2.1259 1971 Unknown [id number] 2.16.840 .1.374425.3.579.2.1259 1971 Unknown [id number] 2.16.840 .1.647803.3.579.2.1259 1971 Unknown [id number] 2.16.840 .1.070147.3.579.2.1259 1971 Unknown [id number] 2.16.840. 1.183944.3.579.2.1259 1971 Unknown [id number] 2.16.8 40.1.107293.3.579.2.1286 1971 Unknown [id number] 2.16.8 40.1.534893.3.579.2.1286 1971 Unknown [id number] 2.16.8 40.1.901562.3.579.2.1286 1971 Unknown [id number] 2.16.8 40.1.982555.3.579.2.1286 1971 Unknown [id number] 2.16.8 40.1.381751.3.579.2.1286 1971 Unknown [id number] 2.16.8 40.1.688682.3.579.2.1286 1971 Unknown [id number] 2.16.8 40.1.557408.3.579.2.1286 1971 Unknown [id number] 2.16.8 40.1.956388.3.579.2.1286 1971 Unknown [id number] 2.16.84 0.1.413597.3.579.2.1286 1971 Unknown [id number] 2.16.8 40.1.686859.3.579.2.1286 1971 Unknown [id number] 2.16.8 40.1.506677.3.579.2.1286 1971 Unknown [id number] 2.16.84 0.1.814626.3.579.2.1286 1971 Unknown [id number] 2.16.84 0.1.996058.3.579.2.1286 1971 Unknown [id number] 2.16.84 0.1.851315.3.579.2.1286 1971 Unknown [id number] 2.16.8 40.1.336873.3.579.2.1286 1971 Unknown [id number] 2.16.8 40.1.512826.3.579.2.1286 1971 Unknown [id number] 2.16.8 40.1.170450.3.579.2.1286 1971 Unknown [id number] 2.16.8 40.1.255118.3.579.2.1286 1971 Unknown [id number] 2.16.84 0.1.430552.3.579.2.1286 1971 Unknown [id number] 2.16.84 0.1.778752.3.579.2.1286 1959 Unknown [id number] 2.1 6.840.1.524683.19 Medicaid [place] [employer] [id number] Self-pay Self Pay [id number] Social History Date Type Detail Facility Unknown if ever smoked [employer] Other Start: 12-31-2018 End: 04-21-2020 Sex Assigned At [facility] Tobacco smoking status No Smokin g Status Entered [facility] Start: 04-27-2022 End: 09-05-2022 Tobacco smoking status NHIS Smoker (finding) [facility] Start: 1970 Sex Assigned At Female [facility] Start: 12-19-2022 End: 03-15-2023 Tobacco smoking status NHIS Smokes tobacco daily [facility] History of tobacco use Cigarette Smoker P [facility] [employer] [facility] Start: 04-21-2020 End: 12-19-2022 Cigarettes smoked current (pack per day) - Reported 1 [facility] Start: 12-19-2022 Tobacco use and exposure Smokeless tobacco non-user [facility] Start: 02-27-2023 End: 06-12-2023 Alcohol intake Lifetime non-drinker (finding) [facility] Frequency of Alcohol Consumption Never [facility] Start: 12-19-2022 Tobacco Comment One pack per week [facility] Start: 05-23-2022 Gender identity Identifies as female gender (finding) [facility] Start: 01-22-2023 Sexual orientation Choose not to disclose [facility] How often to you hav e a drink containing alcohol? Never [facility] Start: 11-20-2022 Education 13 [facility] Start: 03-15-2023 Tobacco Comment Smokes a pack a week. 2-3 cigarettes a day. [facility] Start: 08-04-2022 Alcohol Comment caffeine intake: more than 4 cups per day/ 2 pots of coffee. [facility] Start: 1970 Sex Assigned At Not on file [facility] Medical Equipment Procedure Code Equipment Code Equipment Origin al Text Equipment Identifier Dates CANCELLOUS COARS E 7.5CC FDA Start: 08-27-2019 Bone-screw inter nal spinal fixation system, non-sterile ()[id number] FDA Start: 08-27-2019 Bone-screw inter nal spinal fixation system, non-sterile ()[id number] FDA Start: 08-27-2019 Bone-screw inter nal spinal fixation system, non-sterile ()[id number] FDA Start: 08-27-2019 Bone-screw inter nal spinal fixation system, non-sterile ()[id number] FDA Start: 08-27-2019 Bone-screw inter nal spinal fixation system, non-sterile ()[id number] FDA Start: 08-27-2019 Polymeric spinal fusion cage, non-sterile ()[id number] FDA Start: 08-27-2019 Polymeric spinal interbody fusion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 provider, there are more free resources available to you, including: No copays or deductibles on local tobacco cessation counseling services to help you quit Prescription assistance for tobacco cessation medications to help you quit For details about the tobacco cessation program available to [employer] members, go to www.Doochoo (Search: Tobacco Cessation Program). [place] Tobacco Quit Line 7-561-SNIR-NOW ( ) is a toll-free, telephonic service that helps [place] residents quit smoking and using tobacco. It is staffed by experts who tailor a quit plan for you and provide you with advice. [place] Tobacco Quit Line 1-281-ZFFT-NOW ( ) is a toll-free, telephonic service that helps [place] residents quit smoking and using tobacco. It is staffed by experts who tailor a quit plan for you and provide you with advice. Two weeks of nicotine replacement therapy may be provided at no charge, if needed. Additional Resources These national organizations also offer free information and resources to help you quit tobacco: [place] [employer]--www.cancer.org/healthy/st ayawayfromtobacco [place] Heart [employer]--www.heart.org (Search: Quit Smoking) Centers for Disease Control and Prevention--www.cdc.gov/tobacco [place] [employer]--www.lungusa.org documented in this encounter [facility] 03-14-2023 Miscellaneous Notes Called patient to remind them to bring their most current copy of their medication list with them to their appt. Patient verbalizes understanding. documented in this encounter [facility] 03-14-2023 Telephone encounter Note Called patient to remind them to bring their most current copy of their medication list with them to their appt. Patient verbalizes understanding. [facility] 10-18-2022 Evaluation note Encounter Date Diagnosis [...] a negative work-up for hyperfunctioning adenoma including [place], pheochromocytoma and primary hyperaldosteronism . Oct, Type [...] advised the patient to avoid calcium supplements. [facility] Other 05-10-2023 Evaluation note* Encounter Date Diagnosis Assessment Notes Treatment Notes Treatment Clinical Notes July, Hypercalcemia (ICD-1 0 - E83.52) [facility] [email or web address] Other 05-04-2023 Procedure [facility]03-27-2023 Evaluation note* Encounter Date Diagnosis Assessment Notes Treatment Notes Treatment Clinical Notes May, Dysphagia (ICD-10 - R13.10) May, GERD (gastroesophageal reflux disease) (ICD-10 - K21.9) Encouraged lifestyle and diet modifications Continue Pantoprazole 40mg twice daily, 30 minutes prior to breakfast and supper. Arrange for EGD May, Esophageal spasm (ICD-10 - K22.4) May, Globus sensation (ICD-10 - F45.8) [place] [employer] Other 02-17-2023 Progress note Author Isela Downs [facility] April 27, 2022 3:36pm Note Date/Time April 27, 2022 9:49am [facility] [place] [address] Hem/Onc Follow Up Note - OP Signed Patient: Keya Ley MR#: [id number] : 1970 Acct:[id number] Age/Sex: 51 / F Type: REG RCR Copies to: MD Kaylie Eason APRN, SHEARER HELPER Kala Lloyd MD~ Subjective Date/Time of Service: [...] Negative for environmental allergies and food allergies. [facility] - History Attestation statement: The following information [...] Type: None Social History Comments: [place] in [place] Home Medications & Allergies Allergies bee pollen [...] EXTREMITIES: No edema, cyanosis or clubbing. No Christina sign. NEUROLOGICAL: Alert and oriented. Cranial nerves [...] 57, totalprotein 6.9, albumin 3.6 Outside Labs: [facility] nephrology labs 04/05/2022: White blood cells 11,700, [...] creatinine 304.32, urine protein/creatinine ratio 0.66 - Impressions [facility] medical specialists 04/25/2022 CT chest without [...] for coordination of care (as documented) and hjdf-vf-tbld counseling of patient and/or family. Dictated By: Isela Downs MD DD/ 0949 Signed By: <Electronically signed by MD Isela Downs> 04/27/22 1536 [facility] Work Phone: 1(530) 174-646702-17-2023 [facility]* Encounter Date Diagnosis Assessment Notes [...] a negative work-up for hyperfunctioning adenoma including [place], pheochromocytoma and primary hyperaldosteronism. Apr, Type 2 [...] to see the patient for further evaluation. [facility] Other 07-07-2022 Evaluation note* Encounter Date Diagnosis [...] her to increase oral magnesium twice daily [employer] Other 05-23-2021 Progress note Author Josh Bhatia [facility] July 31, 2020 11:28am Note Date/Time July 31, 2020 11:22 am [facility] [address] [address] Hem/Onc Follow Up Note - OP Signed Patient: Keya Ley MR#: [id number] : 1970 Acct:[id number] Age/Sex: 49 / F Type: REG RCR Copies to: Kaylie Chavez APRN, SHEARER HELPER Kala Lloyd MD~ Subjective Date/Time of Service: [...] & no additional complaints except as documented PMFSH - Medical History Medical History: Medical History [...] Type: None Social History Comments: lives in [facility] Home Medications & Allergies Allergies bee pollen [...] for coordination of care (as documented) and kfax-ke-ipvq counseling of patient and/or family. Dictated By: Josh Bhatia MD DD/ 19 Signed By: <Electronically signed by Josh Bhatia MD> 07/31/20 1128 [facility] Work Phone: [phone]) 770-153702-16-2021 Consult note Author Josh Bhatia [facility] April 26, 2020 3:37pm Note Date/Time April 22, 2020 3:36pm [facility] [address] [address] Hem/Onc Consult Note - OP Signed with Addenda Patient: Keya Ley MR#: [id number] : 1970 Acct:[id number] Age/Sex: 49 / F Type: REG RCR Copies to: Kaylie Chavez APRN, SHEARER HELPER Kala Lloyd MD~ ADDENDUM1 Flow cytometry showed polyclonal B-cell, 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 To be prudent, will see ilia in 3 months with a repeat CBC/differential. Josh Bhatia MD Addendum Dictated By: Josh Bhatia MD Addendum Signed By: 04/26/201536 Addendum Cosigned By: DD/ TD/TT: 04/26/20 HPI Date/Time of Service: Date of Service: 04/22/2020 Time of Service: 15:34 Referring Provider/PCP: Referring Provider: Kaylie Chavez APRN, OUTSIDE SALES INSPECTOR-C PCP: Kala Lloyd MD - History of Present Illness Reason for Consultation: Leukocytosis Chief Complaint: No other concerns voiced today. HPI: Dear Nikki Scott, I have seen you patient in consultation, [...] chills, or lymphadenopathy. She denied active infection. [facility] - Medical History Medical History: Medical History [...] Type: None Social History Comments: lives in [facility] Home Medications & Allergies Allergies bee pollen [...] 15.7, platelet 260, neutrophils 59%, lymphocytes 33.6%, [id number] Assessment and Plan (1) Leukocytosis Qualifiers: Leukocytosis [...] for coordination of care (as documented) and szln-zg-[id number] counseling of patient and/or family. Dictated By: Josh Bhatia MD DD/ 1534 Signed By: <Electronically signed by Josh Bhatia MD> 04/22/20 1548 [facility] Work Phone: Evaluation + Plan note No data available for this section [facility] Diagnosis Onset Date Resolution Status Hypercalcemia acute COPD (chronic obstructive pulmonary disease) chronic Diabetes mellitus chronic Leukocytosis chronic Lumbar degenerative disc disease chronic [facility] Work Phone: Evaluation note* Diagnosis Onset Date Resolution Status COPD (chronic obstructive pulmonary disease) chronic Diabetes mellitus chronic Lumbar degenerative disc disease chronic Hypercalcemia resolved Leukocytosis resolved [facility] Work Phone: Evaluation note* Diagnosis Lumbar spondylosis- Primary Lumbosacral spondylosis without myelopathy Chest pain, unspecified type- Primary Primary hypertension Unspecified essential hypertension Familial hypercholesterolemia Abnormal EKG Nonspecific abnormal electrocardiogram (ECG) (EKG) Lumbar spondylosis Lumbosacral spondylosis without myelopathy [facility] Diagnosis Lumbar spondylosis- Primary Lumbosacral spondylosis without myelopathy Familial hypercholesterolemia- Primary [facility] Diagnosis Metatarsalgia, left foot- Primary Diabetes 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 polyneuropathy, with long-term current use of insulin ([facility]) Onychomycosis Dermatophytosis of nail Toe pain, right Pain in soft tissues of limb Toe pain, left Pain in soft tissues of limb documented in this encounter [facility]* Diagnosis Onset Date Resolution Status Adrenal nodule acute CKD (chronic kidney disease) stage 3, GFR 30-59 ml/min acute [id number] acute Hypomagnesemia acute Type 2 diabetes mellitus wit h diabetic chronic kidney disease acute Hypercalcemia resolved [facility] Work Phone: Evaluation note* Diagnosis Lumbar spondylosis- Primary Lumbosacral spondylosis without myelopathy Lumbar spondylosis- Primary Lumbosacral spondylosis without myelopathy Lumbar spondylosis Lumbosacral spondylosis without myelopathy Lumbar spondylosis Lumbosacral spondylosis without myelopathy documented [facility] Author Peyton Hoskins [facility] July 12, 2022 1:05pm Note Date/Time July 12, 2022 1:05pm [facility] [address] [place] [address] Gastroenterology H&P Signed Patient: Keya Ley MR#: [id number] : 1970 Acct:[id number] Age/Sex: 51 / F Adm Date: 3 Loc: Room: Type: [facility] Attending Dr: Peyton Hoskins MD Copies to: MD Kaylie Tarango, TAMMIE, SHEARER HELPER~ Date of Service: 07/12/2022 HISTORY & PHYSICAL: [...] signed by Peyton Hoskins MD> 07/12/22 1305 [facility] Work Phone: Hiszljy general Narrative - Reported* Type Description Date [...] ESOPHAGUS STRET MERCEDES 12/02/2020 Hospitalization History DM 2014 Hospitalization History See past surgical hx [facility] Other Hisvcpl general Narrative - Reported* Type Description Date [...] 2013 Hospitalization History See past surgical hx [facility] Other History general Narrative - Reported* Type Description Date [...] CTR Dr. Casillas 01/07/19 Surgical History [facility]-Doctor Santiago Surgical History low back surgery 08/27/2019 Surgical History COLONOSCOPY AND ESOPHAGUS STRET MERCEDES 12/02/2020 Surgical History LEFT FOOT SURGERY FOR THE FIRST 3 TOES 02/07/2022 Hospitalization History DM 2013 Hospitalization History See past surgical hx [facility] Other Hospital Discharge instructions No data available for this section [facility] Additional Instructions DISCHARGE INSTRUCTIONS FOR [...] NOT operate machinery such as power tools, [employer] mowers, snow blowers, sewing machines, etc. for [...] problems. -Follow up with PCP. -Office number [phone]. [facility] Work Phone: InstructionsNot on filedocumented in this encounter [facility] SystemInstructionsNot on filedocumented in this encounter [facility] SystemInstructionsNot on filedocumented in this encounter [facility] note No data available for this section [facility] for visit NarrativePatient here at the request of Dr. Chavez for evaluation & treatment of dysphagia.[facility] Other Summary Purpose Family History No Family [...] sister Diabetes mellitus Unknown Congenital abnormality Unknown Relationship Condition Age at Onset Recorded Date/T rebeka father Diabetes mellitus Unknown Narcissism Unknown Renal failure Unknown Chronic obstructive pulmonary disease Unk nown Hypertension Unknown Leukemia Unknown Not Specified Rheumatoid arthritis Unknown Sciatica Unknown Scoliosis Unknown Diabetes mellitus Unknown Congestive heart failure Unknown Psoriatic arthritis Unknown Depression Unknown Tachycardia Unknown Asthma Unknown sister Diabetes mellitus Unknown Congenital abnormality Unknown family member Diabetes mellitus Unknown father History of stroke Unknown Unknown Heart disease Unknown Family history of mental disorder Unknown Not Specified Diabetes mellitus Unknown Advance Directives No Advanced Directives Records [...] degenerative disc disease Hypercalcemia Leukocytosis Chief Complaint RENAL F/U Reason for Visit Adrenal nodule CKD (chronic kidney disease) stage 3, GFR 30-59 ml/min [id number] Hypomagnesemia Type 2 diabetes mellitus with diabetic chronic kidney disease Hypercalcemia Chief Complaint BH RENAL F/U Reason for Visit Adrenal nodule CKD (chronic kidney disease) stage 3, GFR 30-59 ml/min [id number] Hypomagnesemia Type 2 diabetes mellitus with diabetic chronic kidney disease Hypercalcemia Reason for Referral Specialty Diagnoses / Procedures Referred By Randall bliss Referred To Contact Diagnoses Lumbar spondylosis Procedures Case request operating room: RADIOFREQUENCY ABLATION SPINAL Left L 2/3, 05/12 Live Monk PA-C [address] [place] [address] Referral ID Status Reason Start Date Expiration Date V isits Requested Visits Authorized [id number] Pending Review 06/12/2023 06/11/2024 1 1 Specialty Diagnoses / Procedures Referred By Randall bliss Referred To Contact Diagnoses Lumbar spondylosis Procedures Case request operating room: RADIOFREQUENCY ABLATION SPINAL Right L 2/3 05/12 Live Monk PA-C [address] [place] [address] Referral ID Status Reason Start Date Expiration Date V isits Requested Visits Authorized [id number] Pending Review 06/12/2023 06/11/2024 1 1 Specialty Diagnoses / Procedures Referred By Contac t Referred To Contact Diagnoses Chest pain, unspecified type Abnormal EKG Procedures Nuc stress Lexiscan/Exercise Dennis Foster MD [address] [place] [address] [facility] [address] [place] [address] Phone: [phone] Referral ID Status Reason Start Date Expiration Date V isits Requested Visits Authorized [id number] Authorized 03/15/2023 03/14/2024 5 5 Additional Source Comments REASON FOR VISIT (unrecogniz ed section and content) Reason Comments Follow-up EST PT F/U 1 YR LABS AT [facility] SCHED W/PT L/S GRU Reason Onset Date Comments Direct LDL 03/28/2023 Reason Comments DM Foot Care Reason Onset Date Comments Surgical Or Dental Clearance 04/26/2023 Reason Comments Back Pain Patient Care team informatio n (unrecognized section and content) Team Status: Active Member Role Status Dates Kaylie Chavez APRN OUTSIDE SALES INSPECTOR-C Primary Care Provider Active Team Status: Active Member Role Status Dates Kaylie Chavez APRN OUTSIDE SALES INSPECTOR-C Primary Care Provider Active Start: April 16, 2023 Fermín Donahue MD Attending Provider Active Start: April 16, 2023 Team Status: Inactive Member Role Status Dates Kaylie Chavez APRN OUTSIDE SALES INSPECTOR-C Primary Care Provider Active Start: April 25, 2023 End: April 25, 2023 iNr Horvath MD Attending Provider Active Start : April 25, 2023 End: April 25, 2023 Team Status: Inactive Member Role Status Dates Kaylie Chavez APRN OUTSIDE SALES INSPECTOR-C Primary Care Provider Active Peyton Hoskins MD Attending Provider Active Team Status: Active Member Role Status Dates Kala Lloyd MD Primary Care Provider Active Kaylie Chavez APRN OUTSIDE SALES INSPECTOR-C Referring Provider Active Isela Downs MD Attending Provider Active Team Status: Active Member Role Status Dates Kaylie Chavez APRN OUTSIDE SALES INSPECTOR-C Primary Care Provider Active Herrera Donahue MD Attending Provider Active Team Status: Inactive Member Role Status Dates Kaylie Chavez APRN OUTSIDE SALES INSPECTOR-C Primary Care Provider Active Nir Horvath MD Attending Provider Active Lodging Manager Relationship Specialty Start Date End Date Kaylie Chavez BATTERY WRECKER OPERATOR-SHEARER HELPER [address] [place] [address] PCP - General Nurse Practitioner 11/20/18 Lodging Manager Relationship Specialty Start Date End Date Kaylie Chavez APRN-[facility] [address] [place] [address] PCP - General Nurse Practitioner 11/20/18 Lodging Manager Relationship Specialty Start Date End Date Kaylie Chavez APRN-[facility] [address] [place] [facility] [place] [address] PCP - General Nurse Practitioner 11/20/18 Lodging Manager Relationship Specialty Start Date End Date Kala Lloyd MD [address] [place] [address] PCP - General Family Medicine 08/07/22 Kaylie Chavez NP [address] [place] [address] Nurse Practitioner Family Medicine 08/07/22 Lodging Manager Relationship Specialty Start Date End Date Kala Lloyd MD [address] [place] [facility] [place] [address] PCP - General Family Medicine 08/07/22 Kaylie Chavez NP [address] [place] [facility] [place] [address] Nurse Practitioner Family Medicine 08/07/22 Lodging Manager Relationship Specialty Start Date End Date Scott Kaylie CrysTAMMIE-SHEARER HELPER [address] [place] [address] PCP - General Nurse Practitioner 11/20/18 Lodging Manager Relationship Specialty Start Date End Date Scott Kaylie CrysTAMMIE-SHEARER HELPER [address] [place] [address] PCP - General Nurse Practitioner 11/20/18 INFORMATION SOURCE (unrecogn ized section and content) DATE CREATED AUTHOR 03/13/2022 [facility] dical Specialist DATE CREATED AUTHOR AUTHOR'S ORGANIZ ATION 03/22/2022 [place] [facility] DATE CREATED AUTHOR AUTHOR'S ORGANIZ ATION 07/22/2022 [facility] DATE CREATED AUTHOR AUTHOR'S ORGANIZ ATION 06/21/2023 [facility] dical Specialists EPIC DATE CREATED AUTHOR AUTHOR'S ORGANIZ ATION 06/23/2023 [facility] DATE CREATED AUTHOR AUTHOR'S ORGANIZ ATION 07/01/2023 [facility] Goals (unrecognized section and content) Goals may [...] BE BASED ON THE PRIMARY CLINICAL RECORDS. [employer] provides no warranty or guarantee of the accuracy or completeness of information in this document.
[2023-07-02 11:34] LABS: Anion Gap 15.3; BUN Creatinine Ratio 12.4; Calcium 11.1 mg/dL (8.5-10.1); Carbon Dioxide 26.7 mmol/L (21.0-32.0); Chloride 99 mmol/L (98-107); Estimated GFR (African America >60 (>=60); Estimated GFR (Non-African Ame 55 (>=60); Glucose 222 mg/dL (74-106); Magnesium 1.4 mg/dL (1.8-2.4); Phosphorus 3.7 mg/dL (2.6-4.7); Sodium 137 mmol/L (136-145)
== END 2023-07-02 09:47 | disposition home or self-care (01) ==
LOC: LAB 09:48
PROVIDERS: PCP Nurse Practitioner Family; Visit Provider Internal Medicine
DX: D35.1 Benign neoplasm of parathyroid gland (principal); E55.9 Vitamin D deficiency, unspecified
CPT/HCPCS: 36415; 80069; 82306; 82310; 83735; 83970

== ENCOUNTER 2023-09-09 11:40 | Outpatient (OUT) | payer MEDICAID, SELFPAY ==
--- OUTSIDE RECORDS SUMMARY | 2023-09-09 11:47 | XMS_ITS | CCD ---
Demographics Address [address] [address] Preferred Language en Marital Status Single Presybeterian Affiliation Unknown Race White Ethnic Group Not or Lati no Author Organization [facility] ion [facility] Care Team Providers Care Plaster Machine Tender Name Role Phone Danis, Nir Unavailable KAYLIE CHAVEZ Primary Care Physician Rosina Salter Unavailable Unavailable KALA LLOYD Primary Care Physician Eliazar Pries Attending Unavailable Eliazar Pires Admitting Unavailable Eliazar Pires Attending Unavailable Eliazar Pires Admitting Unavailable Eliazar Pires Admitting Unavailable Eliazar Pires Attending Unavailable MD Kala Lloyd Primary Care Provider [phone] TAMMIE Chavez Referring Provider MD Isela Downs Attending Provider Peyton Hoskins Unavailable MD Prema Kala Primary Care Provider TAMMIE Chavez Referring Provider [phone] MD Isela Downs Attending Provider [phone] TAMMIE Chavez Primary Care Provider MD Peyton Hoskins Attending Provider DANIS, NIR Admitting Unavailable DANIS, NIR Attending [...] Care Unavailable DANIS, NIR Consulting Unavailable Chavez, ENVIRONMENTAL AID Kaylie R Primary Care Provider [phone] MD Herrera Donahue Attending Provider MD Nir Horvath Attending Provider [phone] Chavez ENVIRONMENTAL AID-WRAPPING MACHINE TENDER, Kaylie R Primary Care Provider Kala Lloyd MD Primary Care Provider [phone] Chavez PILE HEADER, Kaylie R Unavailable TAMMIE Chavez Kaylie R Primary Care Provider [phone] MD Fermín Donahue Attending Provider Chavez, Kaylie R Primary Care Unavailable Asaad, Imad Admitting Unavailable Asaad, Imad Attending Unavailable Chavez, Kaylie R Primary Care Unavailable Asaad, Imad Admitting Unavailable Asaad, Imad Attending Unavailable Danis, Nir Admitting Unavailable Danis, Nir Attending Unavailable Chavez, Kaylie R Primary Care Unavailable Asaad, Imad Admitting Unavailable Chavez, Kaylie R Primary Care Unavailable Asaad, Imad Attending Unavailable Chavez, Kaylie R Primary Care Unavailable Asaad, Imad Admitting Unavailable Asaad, Imad Attending Unavailable JONATHON REYMUNDO E Attending Unavailable GIRON, REYMUNDO E Referring Unavailable CHAVEZ, KAYLIE R Primary Care Unavailable GIRON, REYMUNDO E Admitting Unavailable GIRON, REYMUNDO E Attending Unavailable GIRON, REYMUNDO E Referring Unavailable CHAVEZ, KAYLIE R Primary Care Unavailable RD BARBOUR Attending Unavailable CHAVEZ, KAYLIE R Primary Care Unavailable LIVE MONK Attending Unavailable CHAVEZ, KAYLIE R Referring Unavailable CHAVEZ, KAYLIE R Primary Care Unavailable CHAVEZ, KAYLIE R Primary Care Unavailable JULITA PETERSEN Attending UnavailDENNIS Wong Attending Unavailable CHAVEZ, KAYLIE R Referring Unavailable CHAVEZ, KAYLIE R Primary Care Unavailable GIRON, REYMUNDO E Admitting Unavailable GIRON, REYMUNDO E Attending Unavailable CHAVEZ, KAYLIE R Referring Unavailable CHAVEZ, KAYLIE R Primary Care Unavailable GIRON, REYMUNDO E Admitting Unavailable GIRON, REYMUNDO E Attending Unavailable CHAVEZ, KAYLIE R Referring Unavailable CHAVEZ, KAYLIE R Primary Care Unavailable GIRON, REYMUNDO E Attending Unavailable GIRON, REYMUNDO E Referring Unavailable CHAVEZ, KAYLIE R Primary Care Unavailable GIRON, REYMUNDO E Admitting Unavailable GIRON, REYMUNDO E Attending Unavailable GIRON, REYMUNDO E Referring Unavailable CHAVEZ, KAYLIE R Primary Care Unavailable JOB CLINTON Attending Unavailable CHAVEZ, KAYLIE R Primary Care [...] Unavailable CHAVEZ, KAYLIE R Primary Care Unavailable KAMPFER, BRANDON Attending Unavailable LAVERNE PORTER Attending Unavailable PREMA, KALA F Referring Unavailable PREMA, KALA F Attending Unavailable ELIAZAR PIRES Attending Unavailable LINDY VALENTINO Attending Unavailabl e CHAVEZ, KAYLIE R Referring Unavailable KAMPFER, BRANDON Attending Unavailable KAMPFER, BRANDON Referring Unavailable JASLINDY KEARNEY Attending Unavailabl e ELIAZAR PIRES Attending Unavailable PREMA KALA F Attending Unavailable LAVERNE PORTER Attending Unavailable LINDY VALENTINO Attending Unavailabl e LINDY VALENTINO Attending Unavailabl e CHAVEZ, KAYLIE R Attending Unavailable ELIAZAR PIRES Attending Unavailable LINDY VALENTINO Attending Unavailabl ELIAZAR Yost Attending Unavailable LINDY VALENTINO Attending Unavailabl e Allergies Allergy Classification Reported Allergen(s) Allergy Type Date of Onset Reaction(s) Facility (11 sources) Coconut extract Drug Allergy 05-19-19 Unknown, [facility] (20 sources) Codeine; Translations: [CODEINE] Drug Allergy 01-01-20 Unknown [facility] (18 sources) dapagliflozin; Translations: [DAPAGLIFLOZIN] Drug Allergy 01-01-20 [facility] (18 sources) Latex; Translations: [LATEX] Propensity to adverse reactions 01-08-20 19 [facility] (5 sources) onions Propensity to adverse reactions Unknown [employer] Other (6 sources) Acetaminophen Drug Allergy 05-19-19 Unknown Reaction [facility] (4 sources) Bee pollen Allergy to substance 05-19-19 Anaphylaxis [facility] (6 sources) Onion extract Drug Allergy 05-19-19 Anaphylaxis [facility] (6 sources) Tide Allergy to substance 05-19-19 [facility] (1 source) Coconut extract Drug Allergy 06-17-[address] [facility] (1 source) Codeine Drug Allergy 02-08-[address] [facility] (1 source) Latex Drug allergy (disorder) 06-17-[address] [facility] (1 source) Misc-Food; Translations: [Misc-Food] Food allergy (disorder) 06-17-[address] [facility] (1 source) Misc-Drug Drug allergy (disorder) 07-05-[address] [facility] (2 sources) dapagliflozin Drug Allergy 07-24-19 Rash [facility] (2 sources) Latex Allergy to substance 07-24-19 Unknown [facility] (2 sources) Coconut Flavor Allergy to substance 07-24-19 Unknown [facility] Healthcare Work Phone: Medications Current Medications Medication Drug Class(es) Dates Sig (Normalized) Sig (Original) [id number] 200 actuat albuterol 0.09 mg/actuat metered dose [...] 2023 1:00am take 1 tablet by nancy th [...] Taking; Provider: Danis Loyola ( ) Start: 05-15-2018 End: 04-22-2020 take 80 mg by mouth once daily in the morning Atorvastatin Discontinued 80 MG PO Every morning May 15, 2018 1:00am February 12th, 2021 4:06pm take 2 tablets by mo [facility] in the morning atorvastatin (LIPITOR) 40 mg [...] 2019 10:57am take 1 tablet by nancy every eight hours chlorproMAZINE (Thorazine) 200 MG tablet Take 200 mg by mouth every 8 (eight) hours. 0 Active Continuous Blood Gluc Sensor (Dexcom G6 Sensor[place] [facility] [place] sources[place] Start: 01-03-2023 Continuous Blood Gluc Sensor (Dexcom G6 Sensor[place] [facility] [place]ications: Type 2 diabetes mellitus with peripheral neuropathy (CMS/HCC) 1 each Every 10 (ten) days. 9 each 3 01/03/2023 Active doxepin hydrochloride 50 mg oral capsule (19 sources) Tricyclic Antidepressant Start: 05-15-2018 take 50 mg by mouth three times daily Doxepin Active 50 MG PO Three times daily May 15, 2018 1:00am [id number] 0.3 ml EPINEPHrine 1 mg/ml auto-injector (8 [...] Start: 04-21-2020 End: 04-25-2023 Insulin Glargine (Lantus Kenzie ostar U-100 Insulin) 100 unit/mL (3 mL) [...] DAY Active lisinopril 20 mg oral tablet ( sources) Angiotensin Converting Enzyme Inhibitor Start: 05-15-2018 [...] 2022 1:00am take 2 tablets by mo [facility] every six hours as needed for anxiety [...] 2023 4:08pm take 1 tablet by nancy th twice [...] 14 days July, Active polyethylene glycol [id number] [id number] mg / potassium chloride 2970 mg / sodium bicarbonate 6740 mg / sodium chloride 5860 mg / sodium sulfate 00000 mg powder for oral solution (1 source) [...] 26, 2022 3:34pm take 3 tablets by mo uth once [...] coma, with long-term current use of insulin ([facility] [place] Inject 1 mL (75 mg total) under [...] we ek cholecalciferol (Vitamin D-3) 1.25 MG (86741 UT) capsule Take 50,000 Units by mouth [...] D2) 1,250 mcg (50,000 unit) Capsule Discontinued 82855 UNIT PO As Directed May 25, 2019 12:00am April 26, 2022 3:35pm take twice weekly take 1 capsule by mo [facility] two times weekly Vitamin D (Ergocalciferol) 1.25 MG (5000 0 UT) 1 capsule Orally twice a week Active noghyscw-kzoe-RV-calcium &mi ns (THERAGRAN-M) 9 mg iron-400 mcg tablet (2 sources) End: 03-15-2023 iojuojts-oeqo-NV-calcium &mi ns (THERAGRAN-M) 9 mg iron-400 mcg tablet Take 1 tablet by mouth in the morning. 0 03/15/2023 Discontinued (Therapy completed) jmiilrdf-xtan-FJ -calcium &mins (THERAGRAN-M) 9 mg iron-400 mcg [...] inhalation once daily in the morning Tiotropium [place] Discontinued 1 PUFF INHALATION Every morning May 25, 2019 12:00am April 26, 2022 3:46pm Start: 05-15-2018 End: 05-25-2019 take 18 ug by inhalation once daily Tiotropium [place] Discontinued 18 MCG INHALATION Daily May 15, [...] liver; Translations: [Liver disease, unspecified] Onset: 3 05-15-2023 Chronic Other nervous system disorders (5 sources) [...] sources) Long-term current use of insulin; Translations: [USP (current) use of insulin] Onset: 11-29-2022 Resolved: 04-02-2023 04-02-2023 Episodic Other aftercare (4 sources) Other buttermaker (current) drug therapy; Translations: [OTH [facility] CURRENT DRUG THERAPY] Onset: 08-30-2021 Episodic Other [...] Test Name Value Interpretation Reference Range Facility Glucose Glucometer (BldC) [M ass/Vol]on 08-09-2023 Glucose [Mass/Vol] 150 mg/dL High 65-99 [facility] BI MAMMOGRAM SCREENING TOMOS YNTHESIS BILATERALon 04-22-2023 [...] IS VERY IMPORTANT TO YOUR HEALTH. THE [place] [employer]IET[employer] GUIDELINES RECOMMEND THAT WOMEN 40 [...] in LDL [Mass/Vol] 143 mg/dL High <130 [facility] Comment on above: Result Comment: LDL <100 mg/dL - Desirable LDL 130-159 mg/dL - Borderline High Risk LDL >160 mg/dL - High Risk Performed By: #### 2 089-1 #### [facility] ([id number]) [address] [place] [address], [address] [place] [address] POCT EKGOrdered By: Mary Kay Finley on 03-15-2023 [facility] US LOWER EXTREMITY VENO US DUPLEX LEFTon 01-28-2023 [facility] US LOWER EXTREMITY VENOUS DUPLEX LEFT EXAM: [facility] US LOWER EXTREMITY VENOUS DUPLEX LEFT [...] left lower extremity. ELECTRONICALLY SIGNED BY: Dennis Maki DO Normal Not Available Glucose Poct Glucometerson 0 09-05-2022 Glucose [Mass/Vol] 208 mg/dL Normal [facility] Comment on above: Result Comment: [facility] Glucose Reference Range is dependent on time and content of last meal. Glucose of more than 200 mg/dL in a nonstressed, ambulatory subject supports the diagnosis of Diabetes Mellitus. PERFORMED BY: [address] [place] [address] PATHOLOGIST COOK HOUSE SUPERVISOR MURRAY PENN M.D. Performed By: #### G ADOLFO #### Point of Care testing , Christopher 09-05-2022 L ----- Specimen: [id number] Received: 09/05/22 Status: CHRIS Stoner Num: [id number] Spec Type: Surgical Subm Dr: Peyton Hoskins MD Tissues: A Colon Biopsy (RECTAL POLYP) Procedures: Darnell SONG/Kevin L4 Age/ Patient Sex Location Account Attending Physician Keya Ley 51/F [id number] Peyton Hoskins MD SPEC NUM: [id number] RECD: 09/05/22 STATUS: CHRIS STONER NUM: [id number] FRANKLIN: 09/05/22- DR: Peyton Hoskins MD ENTERED: 09/05/22 [facility]: GIRMA TYPE: Surgical DEPT: S ORDERED: [...] microscopic examination confirms the diagnosis. CPT Codes 02152 Specimen: [id number] Received: 09/05/22 Status: CHRIS Stoner Num: [id number] Spec Type: Surgical Subm Dr: Peyton Hoskins MD Tissues: A Colon Biopsy (RECTAL POLYP) Procedures: HE/2, Gross/Micro L4 Patient: Keya Ley [id number] (Continued) Signed (signature on file) Reymundo Mosqueda MD 09/06/22 0906 Normal [facility] Blood Urea Nitrogenon 2022 Urea nitrogen [Mass/Vol] 17 mg/dL Normal 7-25 [facility] Comment on above: Performed By: #### B UN, CREAT #### [address] abdomen pelvis w conon CT abdomen pelvis w [facility] [place] [address] CT Scan Report Signed Patient: Keya Ley MR#: [id number] : 1970 Acct:[id number] Age/Sex: 51 / F ADM Date: 07/25/22 Loc: CT Room: Type: [facility] Attending Dr: Peyton Hoskins MD Copies [...] steatosis. Impression dictated by: Rich Holder Jr., Julio CONikki07/25/2022 3:46 PM Dictation Location: [place] [address] Transcribed By: [facility] 07/25/22 1546 Dictated By: Rich Holder Jr, DO 07/25/22 1543 Signed By: 07/25/22 1546 Normal [facility] Creatinineon 07-25-2022 Creatinine [Mass/Vol] 0.95 mg/dL Normal 0.60-1.20 [facility] Comment on above: Performed By: #### B UN, CREAT #### [facility] [address] [place] [address] GFR/1.73 sq M.predicted MDRD (S/P/Bld) [Vol rate/Area] mL/min/{1.73_m2} Normal [facility] Comment on above: Result Comment: PERF ORMED BY: [place] [address] PATHOLOGIST COOK HOUSE SUPERVISOR MURRAY PENN M.D. Performed By: #### B UN, CREAT #### [facility] [address] [place] [address] [place] Creatinine (Bld) [Mass/Vol]O rdered By: Peyton Hoskins on 07-25-2022 Creatinine [Mass/Vol] 1.0 mg/dL 0.6-1.3 [facility] Comment on above: ER/ESD physician is notified/shown all ISTAT results.Critical values may be confirmed by laboratory testing ifdeemed necessary by ER attending doctor. Creatinine [Mass/volume] in Serum or PlasmaOrdered By: Peyton Hoskins on 07-25-2022 Creatinine [Mass/Vol] 0.95 mg/dL 0.60-1.20 [facility] No Panel InformationOrdered By: Peyton Hoskins on 07-25-2022 Estimated GFR (CKD-EPI) > 60.0 mL/Min [facility] Creatinine Clearance (Chem N/A [facility] Urea nitrogen [Mass/volume] in Serum or PlasmaOrdered By: Peyton Hoskins on 07-25-2022 Urea nitrogen [Mass/Vol] 17 mg/dL 10-02 [facility] NM*parathyroid SPECT*on 07-09 NM*parathyroid SPECT* [facility] [place] [address] Nuclear Medicine Report Signed Patient: Keya Ley MR#: [id number] : 1970 Acct:[id number] Age/Sex: 51 / F ADM Date: 07/23/22 Loc: [place] Room: Type: [facility] Attending Dr: Nir Horvath MD Copies [...] Shelton Reed M.D.07/23/2022 4:57 PM Dictation Location: [place] [address] Transcribed By: [facility] 07/23/221656 Dictated By: Shelton Reed II, MD 07/23/221654 Signed By: 07/23/221656 Normal [facility] CALCIUM 24 HR URINEon 2022 CALC, 24 HR UR 202.8 mg/24 hr Normal 100.0-300. 0 [facility] Comment on above: Performed By: #### C [id number] #### [facility] [address] [place] [address] Dr. Tyree Botello UR CALCIUM 15.6 mg/dL Normal 5.1-21.0 [facility] Comment on above: Performed By: #### C [id number] #### [facility] [address] [place] [address] Dr. Tyree Botello UR TOT VOL 1300 ml/24 HR Normal [facility] Comment on above: Performed By: #### C ALC24U #### [facility] [address] [place] [address] Dr. Tyree Botello MAGNESIUMon 07-18-2022 Magnesium [Mass/Vol] 1.4 mg/dL Critically low 1.8-2.4 [facility] Comment on above: Performed By: #### M G, RENAL, URIC #### [facility] [address] [place] [address] Dr. Tyree Botello RENAL FUNCTION PANELon 07-18 Albumin [Mass/Vol] 3.1 g/dL Critically low 3.4-5.0 [facility] Comment on above: Performed By: #### M G, RENAL, URIC #### [facility] [address] [place] [address] Dr. Tyree Botello Calcium [Mass/Vol] 9.7 mg/dL Normal 8.5-10.1 [facility] Comment on above: Performed By: #### M G, RENAL, URIC #### [facility] [address] [place] [address] [address] Tyree Botello Chloride [Moles/Vol] 102 mmol/L Normal 98-107 [facility] Comment on above: Performed By: #### M G, RENAL, URIC #### [facility] [address] [place] [address] Dr. Tyree Botello CO2 [Moles/Vol] 26.1 mmol/L Normal 21.0-32.0 [facility] Comment on above: Performed By: #### M G, RENAL, URIC #### [facility] [address] [place] [address] [address] Tyree Botello Creatinine [Mass/Vol] 1.13 mg/dL Critically high 0.55-1.02 [facility] Comment on above: Performed By: #### M G, RENAL, URIC #### [facility] [address] [place] [address] Dr. Tyree Botello EGFR-AF MONTENEGRIN >60 Normal >=60 [facility] Comment on above: Performed By: #### M G, RENAL, URIC #### [facility] [address] [place] [address] Dr. Tyree Botello EGFR-NON AF MONTENEGRIN 51 mL/min/1.73m2 Critically low >=60 [facility] Comment on above: Performed By: #### M G, RENAL, URIC #### [facility] [address] [place] [address] Dr. Tyree Botello Glucose [Mass/Vol] 355 mg/dL Critically high 74-106 [facility] Comment on above: Performed By: #### M G, RENAL, URIC #### [facility] [address] [place] [address] Dr. Tyree Botello Phosphate [Mass/Vol] 3.4 mg/dL Normal 2.6-4.7 [facility] Comment on above: Performed By: #### M G, RENAL, URIC #### [facility] [address] [place] [address] [address] Tyree Botello Potassium [Moles/Vol] 4.3 mmol/L Normal 3.5-5.[address] [facility] Comment on above: Performed By: #### M G, RENAL, URIC #### [facility] [address] [place], [place] [address] Dr. Tyree Botello Sodium [Moles/Vol] 138 mmol/L Normal 136-145 [facility] Comment on above: Performed By: #### M G, RENAL, URIC #### [facility] [address] [place] [address] [address] Tyree Botello Urea nitrogen [Mass/Vol] 16.0 mg/dL Normal 7.0-18.0 [facility] Comment on above: Performed By: #### M Quinton, RENAL, URIC #### [facility] [address] [place] [address] [address] Tyree White 07-12-2022 L ----- Specimen: [id number] Received: 07/12/22 Status: CHRIS Estuardo Num: [id number] Spec Type: Surgical Subm Dr: Peyton Hoskins MD Tissues: A Gastric Biopsy (GASTRIC BX) B Esophagus Biopsy (DISTAL ESOPHAGUS) C Esophagus Biopsy (PROXIMAL ESOPHAGUS) Procedures: HE/6, Gross/Micro L4/3, H PYLORI Age/ Patient Sex Location Account Attending Physician Keya Ley 51/F [id number] Peyton Hoskins MD SPEC NUM: [id number] RECD: 07/12/22 STATUS: CHRIS STONER NUM: [id number] FRANKLIN: 07/12/[address]: Peyton Hoskins MD ENTERED: 07/12/22 [facility]: GIRMA TYPE: Surgical DEPT: S ORDERED: [...] name, number and distal esophagus are Specimen: [id number] Received: 07/12/22 Status: CHRIS Stoner Num: [id number] Spec Type: Surgical Subm Dr: Peyton Hoskins MD Tissues: A Gastric Biopsy (GASTRIC BX) B Esophagus Biopsy (DISTAL ESOPHAGUS) C Esophagus Biopsy (PROXIMAL ESOPHAGUS) Procedures: HE/6, Gross/Micro L4/3, H PYLORI Patient: Keya Ley [id number] (Continued) Specimen: [id number] Received: 07/12/22 (Continued) Gross Description (Continued) Signed (signature on file) Yamileth Mosqueda MD 07/16/22 1524 Specimen: [id number] Received: 07/12/22 Status: CHRIS Stoner Num: [id number] Spec Type: Surgical Subm Dr: Peyton Hoskins MD Tissues: A Gastric Biopsy (GASTRIC BX) B Esophagus Biopsy (DISTAL ESOPHAGUS) C Esophagus Biopsy (PROXIMAL ESOPHAGUS) Procedures: HE/6, Gross/Micro L4/3, H PYLORI Patient: Keya Ley [id number] (Continued) Specimen: [id number] Received: 07/12/22492 (Continued) Gross Description (Continued) two fragments of [...] support the above pathologic diagnosis. CPT Codes 20807?3, 38287 Specimen: [id number] Received: 07/12/22 Status: CHRIS Stoner Num: [id number] Spec Type: Surgical Subm Dr: Peyton Hoskins MD Tissues: A Gastric Biopsy (GASTRIC BX) B Esophagus Biopsy (DISTAL ESOPHAGUS) C Esophagus Biopsy (PROXIMAL ESOPHAGUS) Procedures: HE/6, Gross/Micro L4/3, H PYLORI Patient: Keya Ley [id number] (more content not included)... Normal [facility] PTH INTACTon 07-03-2022 PTH, Intact 16 pg/mL Normal 15-65 [facility] Comment on above: Performed By: #### M Quinton, RENAL, URIC #### [facility] [address] [place] [address] [address] Tyree Botello HEMOGRAM AND PLATELon 2022 Hematocrit (Bld) [Volume fraction] 44.5 % Normal 36.0-48.[address] [facility] Comment on above: Performed By: #### M Quinton, RENAL, URIC #### [facility] [address] [place] [address] [address] Tyree Botello Hemoglobin (Bld) [Mass/Vol] 15.0 g/dL Normal 12.0-16.[address] [facility] Comment on above: Performed By: #### M G, RENAL, URIC #### [facility] [address] [place] [address] Dr. Tyree Botello MCH (RBC) [Entitic mass] 30.2 pg Normal 26.7-34.0 [facility] Comment on above: Performed By: #### M G, RENAL, URIC #### [facility] [address] [place] [address] Dr. Tyree Botello MCHC (RBC) [Mass/Vol] 33.7 g/dL Normal 29.9-35.2 [facility] Comment on above: Performed By: #### M G, RENAL, URIC #### [facility] [address] [place] [address] Dr. Tyree Botello MCV (RBC) [Entitic vol] 89.5 fL Normal 81.0-99.0 [facility] Comment on above: Performed By: #### M G, RENAL, URIC #### [facility] [address] [place] [address] Dr. Tyree Botello PLT 263 103/ul Normal 150-450 [facility] Comment on above: Performed By: #### M G, RENAL, URIC #### [facility] [address] [place] [address] Dr. Tyree Botello RBC 4.97 106/ul Normal 4.20-5.40 [facility] Comment on above: Performed By: #### M G, RENAL, URIC #### [facility] [address] [place] [address] Dr. Tyree Botello WBC 12.0 103/ul Critically high 4.0-11.0 [facility] Comment on above: Performed By: #### M G, RENAL, URIC #### [facility] [address] [place] [address] Dr. Tyree Botello MAGNESIUMon 07-02-2022 Magnesium [Mass/Vol] 1.2 mg/dL Critically low 1.8-2.4 [facility] Comment on above: Performed By: #### M G, RENAL, URIC #### [facility] [address] [place] [address] Dr. Tyree Botello RENAL FUNCTION PANELon 07-02 Albumin [Mass/Vol] 3.1 g/dL Critically low 3.4-5.0 [facility] Comment on above: Performed By: #### M G, RENAL, URIC #### [facility] [address] [place] [address] Dr. Tyree Botello Calcium [Mass/Vol] 9.7 mg/dL Normal 8.5-10.1 [facility] Comment on above: Performed By: #### M G, RENAL, URIC #### [facility] [address] [address] [address] Tyree Botello Chloride [Moles/Vol] 104 mmol/L Normal 98-107 [facility] Comment on above: Performed By: #### M G, RENAL, URIC #### [facility] [address] [place] [address] Dr. Tyree Botello CO2 [Moles/Vol] 28.6 mmol/L Normal 21.0-32.0 [facility] Comment on above: Performed By: #### M G, RENAL, URIC #### [facility] [address] [place] [address] Dr. Tyree Botello Creatinine [Mass/Vol] 0.95 mg/dL Normal 0.55-1.02 [facility] Comment on above: Performed By: #### M G, RENAL, URIC #### [facility] [address] [place] [address] Dr. Tyree Botello EGFR-AF MONTENEGRIN >60 Normal >=60 [facility] Comment on above: Performed By: #### M G, RENAL, URIC #### [facility] [address] [place] [address] Dr. Tyree Botello EGFR-NON AF MONTENEGRIN >60 Normal >=60 [facility] Comment on above: Performed By: #### M G, RENAL, URIC #### [facility] [address] [place] [address] Dr. Tyree Botello Glucose [Mass/Vol] 148 mg/dL Critically high 74-106 [facility] Comment on above: Performed By: #### M G, RENAL, URIC #### [facility] [address] [address] [address] Tyree Botello Phosphate [Mass/Vol] 3.6 mg/dL Normal 2.6-4.[address] [facility] Comment on above: Performed By: #### M G, RENAL, URIC #### [facility] [address] [place] [address] Dr. Tyree Botello Potassium [Moles/Vol] 4.2 mmol/L Normal 3.5-5.[address] [facility] Comment on above: Performed By: #### M G, RENAL, URIC #### [facility] [address] [place] [address] Dr. Tyree Botello Sodium [Moles/Vol] 143 mmol/L Normal 136-[address] [facility] Comment on above: Performed By: #### M G, RENAL, URIC #### [facility] [address] [place] [address] Dr. Tyree Botello Urea nitrogen [Mass/Vol] 14.0 mg/dL Normal 7.0-18.[address] [facility] Comment on above: Performed By: #### M G, RENAL, URIC #### [facility] [address] [place] [address] Dr. Tyree Botello UA RANDOM W/MICROSCOPICon BACTERIA NONE SEEN Normal NONE SEEN The [facility] Comment on above: Performed By: #### M G, RENAL, URIC #### [facility] [address] [place] [address] Dr. Tyree Botello Bilirubin Ql (U) Negative Normal NEGATIVE The [facility] Comment on above: Performed By: #### M G, RENAL, URIC #### [facility] [address] [place] [address] Dr. Tyree Botello CAST SEEN Abnormal NONE SEEN The [facility] Comment on above: Performed By: #### M G, RENAL, URIC #### [facility] [address] [place] [address] Dr. Tyree Botello Clarity (U) CLEAR Normal CLEAR The [facility] Comment on above: Performed By: #### M G, RENAL, URIC #### [facility] [address] [place] [address] Dr. Tyree Botello Color (U) LT. YELLOW Normal YELLOW The [facility] Comment on above: Performed By: #### M G, RENAL, URIC #### [facility] [address] [address] [address] Tyree Botello Crystals LM Nom (Urine sed) NONE SEEN Normal NONE SEEN The [facility] Comment on above: Performed By: #### M G, RENAL, URIC #### [facility] [address] [address] [address] Tyree Botello Epithelial cells LM Ql (Urine sed) FEW Abnormal NONE SEEN /RARE The [facility] Comment on above: Performed By: #### M G, RENAL, URIC #### [facility] [address] [place] [address] Dr. Tyree Botello Glucose Ql (U) Negative Normal NEGATIVE The [facility] Comment on above: Performed By: #### M G, RENAL, URIC #### [facility] [address] [place] [address] Dr. Tyree Botello Hemoglobin Ql (U) SMALL Abnormal NEGATIVE The [facility] Comment on above: Performed By: #### M G, RENAL, URIC #### [facility] [address] [address] [address] Tyree Botello Ketones Ql (U) Negative Normal NEGATIVE The [facility] Comment on above: Performed By: #### M G, RENAL, URIC #### [facility] [address] [address] [address] Tyree Botello LEUKOCYTES Negative Normal NEGATIVE The [facility] Comment on above: Performed By: #### M G, RENAL, URIC #### [facility] [address] [address] [address] Tyree Botello MUCOUS NONE SEEN Normal NONE SEEN The [facility] Comment on above: Performed By: #### M G, RENAL, URIC #### [facility] [address] [place] [address] Dr. Tyree Botello Nitrite Ql (U) Negative Normal NEGATIVE The [facility] Comment on above: Performed By: #### M G, RENAL, URIC #### [facility] [address] [address] [address] Tyree Botello pH (U) 5.0 [pH] Normal 5-[address] [facility] Comment on above: Performed By: #### M G, RENAL, URIC #### [facility] [address] [place] [address] Dr. Tyree Botello RBC 0-2 Normal 0-[address] [facility] Comment on above: Performed By: #### M G, RENAL, URIC #### [facility] [address] [place] [address] Dr. Tyree Botello SPEC GRAVITY >=1.030 Abnormal 1.005-<=1. [address] [facility] Comment on above: Performed By: #### M G, RENAL, URIC #### [facility] [address] [place] [address] Dr. Tyree Botello UA PROTEIN >300 Abnormal NEGATIVE/ TRACE The [facility] Comment on above: Performed By: #### M G, RENAL, URIC #### [facility] [address] [place] [address] Dr. Tyree Botello Urobilinogen Qn (U) 0.2 {Jennifer'U}/dL Normal 0.2 - 1. [address] [facility] Comment on above: Performed By: #### M G, RENAL, URIC #### [facility] [address] [place] [address] Dr. Tyree Botello WBC 0-2 Abnormal NONE SEEN The [facility] Comment on above: Performed By: #### M G, RENAL, URIC #### [facility] [address] [place] [address] Dr. Tyree Botello URIC ACID SERUMon 07-02-2022 Urate [Mass/Vol] 5.8 mg/dL Normal 2.6-6.[address] [facility] Comment on above: Performed By: #### M G, RENAL, URIC #### [facility] [address] [place] [address] Dr. Tyree Botello VITAMIN D 25 OHon 07-02-2022 VIT D 25-OH 39.2 ng/mL Normal The [facility] Comment on above: Performed By: #### M G, RENAL, URIC #### [facility] [address] [place], [place] [address] Dr. Tyree Botello VIT D RANGES SEE BELOW Normal The [facility] Comment on above: Result Comment: <20 ng/mL Vit D deficient 20 - <30 ng/mL Vit D insufficient 30 - 100 ng/mL Vit D sufficient >100 ng/mL Potential Toxicity Performed By: #### M G, RENAL, URIC #### [facility] [address] [place], [place] [address] Dr. Tyree Botello Albumin [Mass/volume] in Bod y fluidOrdered By: Isela Downs on 04-27-2022 Albumin (Body fld) [Mass/Vol] 3.6 g/dL 3.2-5.5 [facility] Albumin [Mass/volume] in Ser um or PlasmaOrdered By: Isela Downs on 04-27-2022 Albumin [Mass/Vol] 3.4 g/dL 2.9-4.4 [facility] Albumin/Protein.total in 24 hour Urine by ElectrophoresisOrdered By: Isela Downs on 04-27-2022 Albumin Elph (24H U) [Mass fraction] 77.3 % . [facility] Alkaline phosphatase [Enzyma tic activity/volume] in Serum or PlasmaOrdered By: Isela Downs on 04-27-2022 ALP [Catalytic activity/Vol] 57 U/L 32-92 [facility] Aspartate aminotransferase [ Enzymatic activity/volume] in Serum or PlasmaOrdered By: Isela Downs on 04-27-2022 AST [Catalytic activity/Vol] 26 U/L 10-42 [facility] Basophils Auto (Bld) [#/Vol] Ordered By: Isela Downs on 04-27-2022 Basophils (Bld) [#/Vol] 0.1 10*3/uL 0.0-0.2 [facility] Basophils/100 WBC Auto (Bld) Ordered By: Isela Downs on 04-27-2022 Basophils/100 WBC (Bld) 0.9 % . [facility] Bilirubin.total [Mass/volume ] in Serum or PlasmaOrdered By: Isela Downs on 04-27-2022 Bilirubin [Mass/Vol] 0.4 mg/dL 0.3-1.2 [facility] Calcium [Mass/volume] in Ser um or PlasmaOrdered By: Isela Downs on 04-27-2022 Calcium [Mass/Vol] 9.6 mg/dL 8.2-10.2 [facility] Carbon dioxide, total [Moles /volume] in Serum or PlasmaOrdered By: Isela Downs on 04-27-2022 CO2 [Moles/Vol] 20.1 mmol/L 22.0-30.0 [facility] Chloride [Moles/volume] in S mary ann or PlasmaOrdered By: Isela Downs on 04-27-2022 Chloride [Moles/Vol] 101 mmol/L 95-114 [facility] Creatinine and Glomerular fi ltration rate.predicted panel (S/P/Bld)Ordered By: Isela Downs on 04-27-2022 Creatinine [Mass/Vol] 0.90 mg/dL 0.44-1.03 [facility] Eosinophils Auto (Bld) [#/Vo l]Ordered By: Isela Downs on 04-27-2022 Eosinophils (Bld) [#/Vol] 0.2 10*3/uL 0.0-0.45 [facility] Eosinophils/100 WBC Auto (Bl d)Ordered By: Isela Downs on 04-27-2022 Eosinophils/100 WBC (Bld) 1.5 % . [facility] Erythrocyte distribution wid th Auto (RBC) [Ratio]Ordered By: Isela Downs on 04-27-2022 Erythrocyte distribution width (RBC) [Ratio] 13.3 % 11.9-15.3 [facility] Estimated glomerular filtrat ion rate (GFR) non- AmericanOrdered By: Isela Downs on 04-27-2022 GFR/1.73 sq M.predicted among non-blacks MDRD (S/P/Bld) [Vol rate/Area] > 60 mL/Min [facility] Gamma globulin/Protein.total in 24 hour Urine by ElectrophoresisOrdered By: Isela Downs on 04-27-2022 Gamma globulin Elph (24H U) [Mass fraction] 3.7 % . [facility] Globulin Calc (S) [Mass/Vol] Ordered By: Isela Downs on 04-27-2022 Globulin (S) [Mass/Vol] 3.3 g/dL [facility] Glucose [Mass/volume] in Ser um or PlasmaOrdered By: Isela Downs on 04-27-2022 Glucose [Mass/Vol] 327 mg/dL 70-100 [facility] Comment on above: ADA recommended refe rence rangeRandom Glucose Reference Range is dependent on time and content of last meal. Glucose of more than 200 mg/dL in a nonstressed, ambulatory subject supports the diagnosis of Diabetes Mellitus. Hematocrit Auto (Bld) [Volum e fraction]Ordered By: Isela Downs on 04-27-2022 Hematocrit (Bld) [Volume fraction] 45.4 % 34.0-46.4 [facility] Hemoglobin [Mass/volume] in BloodOrdered By: Isela Downs on 04-27-2022 Hemoglobin (Bld) [Mass/Vol] 15.2 g/dL 11.8-15.4 [facility] Immunoglobulin light chains. kappa.free [Mass/volume] in SerumOrdered By: Isela Downs on 04-27-2022 Immunoglobulin light chains.kappa.free (S) [Mass/Vol] 25.4 mg/L 3.3-19.4 [facility] Immunoglobulin light chains. kappa.free/Immunoglobulin light chains.lambda.free [MassOrdered By: Isela Downs on 04-27-2022 Immunoglobulin light chains.kappa.free/Immuno globulin light chains.lambda.free (S) [Mass ratio] 1.62 0.26-1.65 [facility] Comment on above: Performed at: [address] [id number] Director: Duke Peguero PhD, Phone: [phone] Immunoglobulin light chains. lambda.free [Mass/volume] in Serum or PlasmaOrdered By: Isela Downs on 04-27-2022 Immunoglobulin light chains.lambda.free [Mass/Vol] 15.7 mg/L 5.7-26.3 [facility] Leukocytes [#/volume] correc kaykay for nucleated erythrocytes in Blood by Automated counOrdered By: Isela Downs on 04-27-2022 WBC corrected for nucl RBC Auto (Bld) [#/Vol] 11.3 10*3/uL 3.8-11.6 [facility] Lymphocytes Auto (Bld) [#/Vo l]Ordered By: Isela Downs on 04-27-2022 Lymphocytes (Bld) [#/Vol] 3.6 10*3/uL 1.00-4.8 [facility] Lymphocytes/100 WBC Auto (Bl d)Ordered By: Isela Downs on 04-27-2022 Lymphocytes/100 WBC (Bld) 31.7 % . [facility] MCH Auto (RBC) [Entitic mass ]Ordered By: Isela Downs on 04-27-2022 MCH (RBC) [Entitic mass] 30.0 pg 24.7-34.3 [facility] MCHC Auto (RBC) [Mass/Vol]Or dered By: Isela Downs on 04-27-2022 MCHC (RBC) [Mass/Vol] 33.5 g/dL 32.0-35.0 [facility] [place] [facility] MCV Auto (RBC) [Entitic vol] Ordered By: Isela Downs on 04-27-2022 MCV (RBC) [Entitic vol] 89.6 fL 80-100 [facility] Monocytes Auto (Bld) [#/Vol] Ordered By: Isela Downs on 04-27-2022 Monocytes (Bld) [#/Vol] 0.5 10*3/uL 0.0-0.8 [facility] Monocytes/100 WBC Auto (Bld) Ordered By: Isela Downs on 04-27-2022 Monocytes/100 WBC (Bld) 4.8 % . [facility] Neutrophils Auto (Bld) [#/Vo l]Ordered By: Isela Downs on 04-27-2022 Neutrophils (Bld) [#/Vol] 6.9 10*3/uL 1.8-7.7 [facility] Neutrophils/100 WBC Auto (Bl d)Ordered By: Isela Downs on 04-27-2022 Neutrophils/100 WBC (Bld) 61.1 % . [facility] No Panel InformationOrdered By: Isela Downs on 04-27-2022 Urine Random Prot Electrophor Note See comment . [facility] Comment on above: Protein electrophore sis scan will follow via computer,mail, or associate professor of anthropology delivery.Performed at: [address], [place], [place] [id number] Director: Duke Peguero PhD, Phone: [phone] Estimated GFR () > 60 mL/Min [facility] Comment on above: GFR estimated refere nce range: According to KDOQI guidelines, <60 ml/min/1.73m2 is sufficient to diagnose a patient with chronic kidney disease. Pharmacy Creatinine Clearance (Chem 83.02 [facility] Protein Electrophoresis M-Sarthak Not observed g/dL Not Observed [facility] Protein Electrophoresis Note See comment . [facility] Comment on above: Protein electrophore sis scan will follow via computer,mail, or associate professor of anthropology delivery.Performed at: [facility] [address] [id number] Director: Duke Peguero PhD, Phone: [phone] Nucleated erythrocytes [Pres ence] in Blood by Automated countOrdered By: Isela Downs on 04-27-2022 Nucleated RBC Auto Ql (Bld) 0.1 /100{WBC} 0-0.5 [facility] Platelet mean volume Auto (B ld) [Entitic vol]Ordered By: Isela Downs on 04-27-2022 Platelet mean volume (Bld) [Entitic vol] 9.5 fL 6.3-10.7 [facility] Platelets Auto (Bld) [#/Vol] Ordered By: Isela Downs on 04-27-2022 Platelets (Bld) [#/Vol] 257 10*3/uL 150-450 [facility] Potassium [Moles/volume] in Serum or PlasmaOrdered By: Isela Downs on 04-27-2022 Potassium [Moles/Vol] 4.3 mmol/L 3.5-5.1 [facility] Protein [Mass/volume] in Ser um or PlasmaOrdered By: Isela Downs on 04-27-2022 Protein [Mass/Vol] 6.9 g/dL 6.1-7.9 [facility] Protein [Mass/Vol] 6.8 g/dL 6.0-8.5 [facility] Protein [Mass/volume] in Uri neOrdered By: Isela Downs on 04-27-2022 Protein (U) [Mass/Vol] 183.6 mg/dL Not Estab. [facility] Protein.monoclonal/Protein.t otal in 24 hour Urine by ElectrophoresisOrdered By: Isela Downs on 04-27-2022 Protein.monoclonal Elph (24H U) [Mass fraction] Not observed % Not Observed [facility] RBC Auto (Bld) [#/Vol]Ordere d By: Isela Downs on 04-27-2022 RBC (Bld) [#/Vol] 5.07 10*6/uL 3.60-5.00 [facility] Serum globulin measurement ( mass/volume)Ordered By: Isela Downs on 04-27-2022 Globulin (S) [Mass/Vol] 3.4 g/dL 2.2-3.9 [facility] Serum or plasma alanine barroso otransferase measurement without P-5'-P (enzymatic activiOrdered By: Isela Downs on 04-27-2022 ALT No additional P-5'-P [Catalytic activity/Vol] 36 U/L 10-60 [facility] Serum or plasma albumin/glob ulin mass ratioOrdered By: Isela Downs on 04-27-2022 Albumin/Globulin [Mass ratio] 1.1 {ratio} [facility] Albumin/Globulin [Mass ratio] 1.0 {ratio} 0.7-1.7 [facility] Serum or plasma alpha 1 glob ulin measurement by electrophoresis (mass/volume)Ordered By: Isela Downs on 04-27-2022 Alpha 1 globulin Elph [Mass/Vol] 0.3 g/dL 0.0-0.4 [facility] Serum or plasma alpha 2 glob ulin measurement by electrophoresis (mass/volume)Ordered By: Isela Downs on 04-27-2022 Alpha 2 globulin Elph [Mass/Vol] 1.6 g/dL 0.4-1.0 [facility] Serum or plasma anion gap de terminationOrdered By: Isela Downs on 04-27-2022 Anion gap [Moles/Vol] 18.2 mmol/L 6.0-15.0 [facility] Serum or plasma beta globuli n measurement by electrophoresis (mass/volume)Ordered By: Isela Downs on 04-27-2022 Beta globulin Elph [Mass/Vol] 1.1 g/dL 0.7-1.3 [facility] Serum or plasma gohe-4-qspqs globulin measurement (mass/volume)Ordered By: Isela Downs on 04-27-2022 Dvry-4-Exwltaukqpidi [Mass/Vol] 1.9 ug/mL 0.6-2.4 [facility] Comment on above: Siemens Immulite 200 0 Immunochemiluminometric assay (ICMA)Values obtained with different assay methods or kits cannotbe used interchangeably. Results cannot be interpreted asabsolute evidence of the presence or absence of malignantdisease.Performed at: [employer] [id number] Director: Loni Olvera MD, Phone: [phone] Serum or plasma gamma globul in measurement by electrophoresis (mass/volume)Ordered By: Isela Downs on 04-27-2022 Gamma globulin Elph [Mass/Vol] 0.5 g/dL 0.4-1.8 [facility] Sodium [Moles/volume] in Ser um or PlasmaOrdered By: Isela Downs on 04-27-2022 Sodium [Moles/Vol] 135 mmol/L 136-146 [facility] Urea nitrogen [Mass/volume] in Serum or PlasmaOrdered By: Isela Downs on 04-27-2022 Urea nitrogen [Mass/Vol] 14 mg/dL 9-23 [facility] Urine alpha 1 globulin/total protein by electrophoresisOrdered By: Isela Downs on 04-27-2022 Alpha 1 globulin Elph (U) [Mass fraction] 2.6 % . [facility] Urine alpha 2 globulin/total protein ratio by electrophoresisOrdered By: Isela Downs on 04-27-2022 Alpha 2 globulin Elph (U) [Mass fraction] 4.2 % . [facility] Urine beta globulin measurem ent by electrophoresis (mass/volume)Ordered By: Isela Downs on 04-27-2022 Beta globulin Elph (U) [Mass/Vol] 12.2 % . [facility] WBC Auto (Bld) [#/Vol]Ordere d By: Isela Downs on 04-27-2022 WBC (Bld) [#/Vol] 11.3 10*3/uL 3.8-11.6 [facility] PARATHYROID HORMONE- RELATED PEPTIDEon 04-20-2022 PTHrP (PTH-Related Peptide) <2.0 Normal [facility] Comment on above: Result Comment: This test was developed and its performance characteristics determined by [employer]. It has not been cleared or approved [...] G, RENAL, URIC #### [facility] [address] [place] [address] Dr. Tyree Botello IMMUNOFIXATION (CHERRI), URINEo n 04-16-2022 CHERRI Interpretation:U Comment Normal [facility] Comment on above: Result Comment: No m onoclonality detected. Performed By: #### M G, RENAL, URIC #### [facility] [address] [address] [address] Tyree Botello PROTEIN ELECTROPHERESIS URIN E RANDOMon 04-16-2022 Albumin, U 80.3 % Normal [facility] Comment on above: Performed By: #### M G, RENAL, URIC #### [facility] [address] [address] [address] Tyree Botello Alpha-1 Globulin U 4.3 % Normal [facility] Comment on above: Performed By: #### M G, RENAL, URIC #### [facility] [address] [address] [address] Tyree Botello Alpha-2 Glubulin U 2.9 % Normal [facility] Comment on above: Performed By: #### M G, RENAL, URIC #### [facility] [address] [place] [address] Dr. Tyree Botello Beta Globulin, U 10.2 % Normal [facility] Comment on above: Performed By: #### M G, RENAL, URIC #### [facility] [address] [place] [address] Dr. Tyree Botello Gamma Globulin U 2.2 % Normal [facility] Comment on above: Performed By: #### M G, RENAL, URIC #### [facility] [address] [address] [address] Tyree Botello M-Sarthak, % Not Observed Normal Not Observed [facility] Comment on above: Performed By: #### M G, RENAL, URIC #### [facility] [address] [address] [address] Tyree Botello PDF . Normal [facility] Comment on above: Performed By: #### M G, RENAL, URIC #### [facility] [address] [place] [address] Dr. Tyree Botello Please note: Comment Normal [facility] Comment on above: Result Comment: Prot ein electrophoresis scan will follow via computer, mail, or associate professor of anthropology delivery. Performed By: #### M G, RENAL, URIC #### [facility] [address] [place] [address] Dr. Tyree Botello Protein (U) [Mass/Vol] 181.5 mg/dL Normal Not Estab. [facility] Comment on above: Performed By: #### M G, RENAL, URIC #### [facility] [address] [place] [address] Dr. Tyree Botello VIT D 1 25 DIHYDROXYon 04-14 Calcitriol(1,25 di-OH Vit D) 12.5 pg/mL Critically low 24.8-81.5 [facility] Comment on above: Performed By: #### M G, RENAL, URIC #### [facility] [address] [place] [address] Dr. Tyree Botello IMMUNOFIXATION(CHERRI),PROTEIN ELEC(PE),FREon 04-13-2022 Albumin [Mass/Vol] 3.5 g/dL Normal 2.9-4.4 [facility] Comment on above: Performed By: #### I FEPEFL #### [facility] [address] [place] [address] Dr. Tyree Botello Albumin/Globulin [Mass ratio] 1.1 {ratio} Normal 0.7-1.7 [facility] Comment on above: Performed By: #### I FEPEFL #### [facility] [address] [place] [address] Dr. Tyree Botello Xyfke-[id number]-Vmwzusqc 0.2 g/dL Normal 0.0-0.4 [facility] Comment on above: Performed By: #### I FEPEFL #### [facility] [address] [place] [address] Dr. Tyree Botello Pvlvu-6-Tufcscbb 1.5 g/dL Critically high 0.4-1.0 [facility] Comment on above: Performed By: #### I FEPEFL #### [facility] [address] [place] [address] Dr. Tyree Botello Beta Globulin 1.3 g/dL Normal 0.7-1.3 [facility] Comment on above: Performed By: #### I FEPEFL #### [facility] [address] [place] [address] Dr. Tyree Botello Free [place] Lt Chains,S 25.5 mg/L Critically high 3.3-19.4 [facility] Comment on above: Performed By: #### I FEPEFL #### [facility] [address] [place] [address] Dr. Tyree Botello Free Lambda Lt Chains,S 15.9 mg/L Normal 5.7-26.3 [facility] Comment on above: Performed By: #### I FEPEFL #### [facility] [address] [place] [address] Dr. Tyree Botello Gamma Globulin 0.5 g/dL Normal 0.4-1.8 [facility] Comment on above: Performed By: #### I FEPEFL #### [facility] [address] [place] [address] Dr. Tyree Botello Globulin (S) [Mass/Vol] 3.5 g/dL Normal 2.2-3.9 [facility] Comment on above: Performed By: #### I FEPEFL #### [facility] [address] [place] [address] Dr. Tyree Botello Immunofixation Result, Serum Comment: Normal [facility] Comment on above: Result Comment: Pres ence of monoclonal protein is unclear at this time. Suggest repeat in 3 to 6 months if clinically indicated. Performed By: #### I FEPEFL #### [facility] [address] [address] [address] Tyree Botello Immunoglobulin A, Qn, Serum 266 mg/dL Normal 87-352 [facility] Comment on above: Performed By: #### I FEPEFL #### [facility] [address] [address] [address] Tyree Botello Immunoglobulin G, Qn, Serum 517 mg/dL Critically low 586-1602 [facility] Comment on above: Performed By: #### I FEPEFL #### [facility] [address] [address] [address] Tyree Botello Immunoglobulin M, Qn, Serum 118 mg/dL Normal 26-217 [facility] Comment on above: Performed By: #### I FEPEFL #### [facility] [address] [address] [address] Tyree Botello [place]/Lambda Ratio, S 1.60 Normal 0.26-1.65 [facility] Comment on above: Performed By: #### I FEPEFL #### [facility] [address] [address] [address] Tyree Botello M-Sarthak Not Observed Normal Not Observed [facility] Comment on above: Performed By: #### I FEPEFL #### [facility] [address] [address] [address] Tyree Botello PDF . Normal [facility] Comment on above: Performed By: #### I FEPEFL #### [facility] [address] [address] [address] Tyree Botello Please note: Comment Normal [facility] Comment on above: Result Comment: Prot ein electrophoresis scan will follow via computer, mail, or associate professor of anthropology delivery. Performed By: #### I FEPEFL #### [facility] [address] [address] [address] Tyree Botello Protein [Mass/Vol] 7.0 g/dL Normal 6.0-8.5 [facility] Comment on above: Performed By: #### I FEPEFL #### [facility] [address] [place] [address] Dr. Tyree Botello PTH INTACTon 04-06-2022 PTH, Intact 9 pg/mL Critically low 15-65 [facility] Comment on above: Performed By: #### P THINT #### [facility] [address] [place] [address] Dr. Tyree Botello HEMOGRAM AND PLATELon 2022 Hematocrit (Bld) [Volume fraction] 51.5 % Critically high 36.0-48.0 [facility] Comment on above: Performed By: #### M G, RENAL, URIC #### [facility] [address] [place] [address] Dr. Tyree Botello Hemoglobin (Bld) [Mass/Vol] 16.2 g/dL Critically high 12.0-16.0 [facility] Comment on above: Performed By: #### M G, RENAL, URIC #### [facility] [address] [place] [address] Dr. Tyree Botello MCH (RBC) [Entitic mass] 30.1 pg Normal 26.7-34.0 [facility] Comment on above: Performed By: #### M G, RENAL, URIC #### [facility] [address] [place] [address] Dr. Tyree Botello MCHC (RBC) [Mass/Vol] 31.5 g/dL Normal 29.9-35.2 [facility] Comment on above: Performed By: #### M G, RENAL, URIC #### [facility] [address] [place] [address] Dr. Tyree Botello MCV (RBC) [Entitic vol] 95.7 fL Normal 81.0-99.0 [facility] Comment on above: Performed By: #### M G, RENAL, URIC #### [facility] [address] [place] [address] Dr. Tyree Botello PLT 280 103/ul Normal 150-450 [facility] Comment on above: Performed By: #### M G, RENAL, URIC #### [facility] [address] [place] [address] Dr. Tyree Botello RBC 5.38 106/ul Normal 4.20-5.40 [facility] Comment on above: Performed By: #### M G, RENAL, URIC #### [facility] [address] [place] [address] Dr. Tyree Botello WBC 11.7 103/ul Critically high 4.0-11.0 [facility] Comment on above: Performed By: #### M G, RENAL, URIC #### [facility] [address] [place] [address] Dr. Tyree Botello MAGNESIUMon 04-05-2022 Magnesium [Mass/Vol] 1.1 mg/dL Critically low 1.8-2.4 [facility] Comment on above: Performed By: #### M G, URIC, RENAL #### [facility] [address] [place] [address] Dr. Tyree Botello RENAL FUNCTION PANELon 04-05 Albumin [Mass/Vol] 3.5 g/dL Normal 3.4-5.0 [facility] Comment on above: Performed By: #### M G, URIC, RENAL #### [facility] [address] [place] [address] Dr. Tyree Botello Calcium [Mass/Vol] 11.5 mg/dL Critically high 8.5-10.1 [facility] Comment on above: Performed By: #### M G, URIC, RENAL #### [facility] [address] [place] [address] Dr. Tyree Botello Chloride [Moles/Vol] 95 mmol/L Critically low 98-[address] [facility] Comment on above: Performed By: #### M G, URIC, RENAL #### [facility] [address] [place] [address] Dr. Tyree Botello CO2 [Moles/Vol] 28.3 mmol/L Normal 21.0-32.[address] [facility] Comment on above: Performed By: #### M G, URIC, RENAL #### [facility] [address] [address] [address] Tyree Botello Creatinine [Mass/Vol] 1.17 mg/dL Critically high 0.55-1.02 [facility] Comment on above: Performed By: #### M G, URIC, RENAL #### [facility] [address] [place] [address] Dr. Tyree Botello EGFR-AF MONTENEGRIN 59 mL/min/1.73m2 Critically low >=60 [facility] Comment on above: Performed By: #### M G, URIC, RENAL #### [facility] [address] [place] [address] Dr. Tyree Botello EGFR-NON AF M[place]ENEGRIN 49 mL/min/1.73m2 Critically low >=60 [facility] Comment on above: Performed By: #### M G, URIC, RENAL #### [facility] [address] [place] [address] Dr. Tyree Botello Glucose [Mass/Vol] 229 mg/dL Critically high 74-106 [facility] Comment on above: Performed By: #### M G, URIC, RENAL #### [facility] [address] [place] [address] Dr. Tyree Botello Phosphate [Mass/Vol] 3.0 mg/dL Normal 2.6-4.7 [facility] Comment on above: Performed By: #### M G, URIC, RENAL #### [facility] [address] [place] [address] Dr. Tyree Botello Potassium [Moles/Vol] 3.5 mmol/L Normal 3.5-5.1 [facility] Comment on above: Performed By: #### M G, URIC, RENAL #### [facility] [address] [place] [address] Dr. Tyree Botello Sodium [Moles/Vol] 136 mmol/L Normal 136-145 [facility] Comment on above: Performed By: #### M G, URIC, RENAL #### [facility] [address] [place] [address] Dr. Tyree Botello Urea nitrogen [Mass/Vol] 20.0 mg/dL Critically high 7.0-18 .[address] [facility] Comment on above: Performed By: #### M G, URIC, RENAL #### [facility] [address] [place] [address] Dr. Tyree Botello UA RANDOM W/MICROSCOPICon BACTERIA TRACE Abnormal NONE SEEN The [facility] Comment on above: Performed By: #### U AMIC #### [facility] [address] [place] [address] Dr. Tyree Botello Bilirubin Ql (U) SMALL Abnormal NEGATIVE [facility] Comment on above: Performed By: #### U AMIC #### [facility] [address] [place] [address] Dr. Tyree Botello CAST SEEN Abnormal NONE SEEN [facility] Comment on above: Performed By: #### U AMIC #### [facility] [address] [place] [address] Dr. Tyree Botello Clarity (U) CLEAR Normal CLEAR [facility] Comment on above: Performed By: #### U AMIC #### [facility] [address] [place] [address] Dr. Tyree Botello Color (U) YELLOW Normal YELLOW [facility] Comment on above: Performed By: #### U AMIC #### [facility] [address] [place] [address] Dr. Tyree Botello Crystals LM Nom (Urine sed) NONE SEEN Normal NONE SEEN [facility] Comment on above: Performed By: #### U AMIC #### [facility] [address] [address] [address] Tyree Botello Epithelial cells LM Ql (Urine sed) MODERATE Abnormal NONE SEEN /RARE [facility] Comment on above: Performed By: #### U AMIC #### [facility] [address] [place] [address] Dr. Tyree Botello Glucose Ql (U) 500 mg/dl Abnormal NEGATIVE [facility] Comment on above: Performed By: #### U AMIC #### [facility] [address] [place] [address] Dr. Tyree Botello Hemoglobin Ql (U) MODERATE Abnormal NEGATIVE [facility] Comment on above: Performed By: #### U AMIC #### [facility] [address] [address] [address] Tyree Botello HYALINE CAST FEW Normal [facility] Comment on above: Performed By: #### U AMIC #### [facility] [address] [address] [address] Tyree Botello Ketones Ql (U) TRACE Abnormal NEGATIVE [facility] Comment on above: Performed By: #### U AMIC #### [facility] [address] [address] [address] Tyree Botello LEUKOCYTES Negative Normal NEGATIVE [facility] Comment on above: Performed By: #### U AMIC #### [facility] [address] [address] [address] Tyree Botello MUCOUS NONE SEEN Normal NONE SEEN [facility] Comment on above: Performed By: #### U AMIC #### [facility] [address] [address] [address] Tyree Botello Nitrite Ql (U) Negative Normal NEGATIVE [facility] Comment on above: Performed By: #### U AMIC #### [facility] [address] [address] [address] Tyree Botello pH (U) 5.5 [pH] Normal 5-9 [facility] Comment on above: Performed By: #### U AMIC #### [facility] [address] [place] [address] Dr. Tyree Botello RBC 2-5 Abnormal 0-[address] [facility] Comment on above: Performed By: #### U AMIC #### [facility] [address] [address] [address] Tyree Botello SPEC GRAVITY >=1.030 Abnormal 1.005-<=1. [address] [facility] Comment on above: Performed By: #### U AMIC #### [facility] [address] [address] [address] Tyree Botello UA PROTEIN >300 Abnormal NEGATIVE/ TRACE [facility] Comment on above: Performed By: #### U AMIC #### [facility] [address] [address] [address] Tyree Botello Urobilinogen Qn (U) 0.2 {Jennifer'U}/dL Normal 0.2 - 1. [address] [facility] Comment on above: Performed By: #### U AMIC #### [facility] [address] [address] [address] Tyree Botello WBC 2-5 Abnormal NONE SEEN [facility] Comment on above: Performed By: #### U AMIC #### [facility] [address] [address] [address] Tyree Botello URIC ACID SERUMon 04-05-2022 Urate [Mass/Vol] 8.0 mg/dL Critically high 2.6-6.0 [facility] Comment on above: Performed By: #### M G, URIC, RENAL #### [facility] [address] [place] [address] Dr. Tyree Botello URINE T PROTEIN CREAT RATIOo n 04-05-2022 UR PROT CREAT RAT 0.66 Normal [facility] Comment on above: Performed By: #### M G, RENAL, URIC #### [facility] [address] [address] [address] Tyree Botello UR TOTAL PROTEIN >200.0 Critically high <=12.[address] [facility] Comment on above: Performed By: #### M G, RENAL, URIC #### [facility] [address] [address] [address] Tyree Botello URINE CREAT 304.32 mg/dL Critically high 20.00-300. [address] [facility] Comment on above: Performed By: #### M G, RENAL, URIC #### [facility] [address] [address] [address] Tyree Botello VITAMIN D 25 OHon 04-05-2022 VIT D 25-OH 49.7 ng/mL Normal [facility] Comment on above: Performed By: #### M G, RENAL, URIC #### [facility] [address] [address] [address] Tyree Botello VIT D RANGES SEE BELOW Normal [facility] Comment on above: Result Comment: <20 ng/mL Vit D deficient 20 - <30 ng/mL Vit D insufficient 30 - 100 ng/mL Vit D sufficient >100 ng/mL Potential Toxicity Performed By: #### M G, RENAL, URIC #### [facility] [address] [address] [address] Tyree Botello SCREENING MAMMOGRAM W/CHASE, BILATERAL*on [...] VERY IMPORTANT TO YOUR HEALTH. THE CURRENT [employer] GUIDELINES RECOMMENDS ANNUAL MAMMOGRAPHY BEGINNING AT AGE 40 THIS FACILITY USES A REMINDER SYSTEM TO ENSURE ALL PATIENTS RECEIVE REMINDER NOTIFICATIONS AT THE APPROPRIATE TIME BASED ON THE RECOMMENDATIONS OF THIS EXAM. Report reported and signed by Rich Soriano on 03/13/2022 0925 Normal [facility] Manager Relocation Coding Summary.on 02-15-2022 Coding Summary. CD:[id number] Gh0bW w+PGhlYWQ+XQ5ZZGOlT86muXQ dmP4HR7vFDD1VJROLGQAFSH5X UI4ngUI9VRwzC9BgkoMx MffzeIPpXW32LOk2ARS5pKkfA GcgaW8opKIuH9f3KzKcHT55wV 59CUikZHFqPjK3HuPcdmxvtYW y T2osFdNimPXfAma+PHRhYmxlI HdpZHRoPScxMDAlJyBzdHlsZT 0cOx7iPSEsKQOpmSvlxGTjBjN j f1gxLHGaDAdqFK8tmYjmN4Hmi KD6ILVej7x8Av49aPC+PHRkIH Z2zAaqRErlh370CsGof1lbSTH 3 aONlKIjvETS5C30ax0L8XQOlX YRpEEU9fEF0yH4cxHmqiburV7 PqqXFsYhF0IJO1eYEaoQ5qnHn n qgctnT0bUnd+R43KBZ8HFXKWY W8RYjh8G6RxXsmifRG+PC90YW QcXV92eYCujAWwm0pceRw6JmP w AWArJZR7hCzcWLjni8VoJIQpP 52bwTLdu2W0VJSstZfppEXkIr WoiEU1aV7iNMsaaoock5qdwcp n Akrxg5aufe78tU13I23nGBwtD SOmHOC2HDLpBUAlsVmqnf7ieC 9wIi8+CBnme8jnm4rreUh5FeA w KAQadsSipLwwGHC2k2AzUr36O 2AetKkbo5UuHmm7um84yDEmg9 B5cCK0EOglUJTvjG6eFKcmNmI 6 SEGpPiIofP17bICoGMviGr2vh UilnWkfWF3nDFMuqnlqZVPgjP 6mAMOuaEXieLnoXU9sJCUetuu m q821HtVhFWP6HNNtnVJaO4Gsy E7yRwNyYGMuNNUeS3ZwmXCbFH rjY820PNicTpS6WXHampEuW8L s IAOyhZmcFdH6m9T7Cg1Za0Oxc sxdAYN1JZklKZZzQzC4OtEvWm D8F5UqLli0SSFjyZwxDG9nG8E h VTNfznwfbdnudNO2KTLdXDDks S84fIXpIDliZz9rn5R5f890NG EaTOXpeV66Dx2mfBvfLFDjjGV U hN5rmocws9ivlbigScUeCCKaG Aq2BQq4FGVykAczXgXyKGH2Cy B4HKE9uYSmuI7rjOstvqevvZ2 w Oyc+X46gfH8aKXB5KSG6tfyoE KOevpUaIN93SJ16V1YrGtkrhC FibGU+EDBifyLvhIikKZ3kLlW j f0ypu5WrQHmaN1KxFKKcCVvvZ ra5FYBfATY9lTJ0lP0bUPAlGQ rdm2C1kQU9G2KnigInur1aj3w s GXYqWFaoQ75paSPhl3E5WSWzz JO5JGEuyPqdToThhZ88Ktc+PG IjoNwuv4MlAapzr2aor8zzoKt 9 NjNhVKLrsqEvjYjvTUD6u0HjP f75W48wWLxzFWAqEPNkFBQeEU ZjmDcyko7jfB6pJh3+PGNvbCB 3 fCT1zN6nEKNsLrO6ANleM314E nGncNQxIouwx4wbj4qtlNh9Ii ZnTBPhrtGaiYlyVDY2k3QrJx1 8 U59mVVizNIReWSNzMOImPJPkk Kuzrl2otI5kRw8+TQ6uf9llij 42iD31yOH+UYPvDFE5qIkgGAc w PLOkaN5fPSqcWvE1ZWWmMoMtr Q81dRGkOCcbCq6lbDabkVzwGM 2tQYKasbnfi737XoRvj8lxRSU w jJXwKFefWCO6S90hz8N4UPCuU MJfKLC6kZH5yW7uaQpyuvwllO NrbGkrolQwoBigODwzAQsxB56 6 IHRvcDsnPlBhdGllbnQgTmFtZ Bq7T2GuPau9XHSemUkbCK6goF UvLIzaTa8wxCjpwKmrLD0mTVR p xjcpc261SrSos5zhMZSacDReB KtwFDK8U31hm6T1CQZfJEKtCM N0lPJ8bP2btRcjzdhfpNNutUd g rdHhlXtiBRbrQIftC042UQNgz YwxKtLzwoKnAUKgrKH0UZ25DO 73yALip0B8zOW5Q9QvSQDkypu t fggjuUN6IYEaJZZfkQ35Kj8mi CoyLg3yCOGxXMG7UXQezNUiB4 WixG6nEqHqMZSnKAGmL8XgkJS t JNxrP606TDtnEmX9UELxsxQwE 2FgXJAyyAtwDbR0v5P3Gf0GO6 B5DV18ZG86mBMov7A6zEH1W4J h IDCcivsudmxmlZC6QTQcDTGrf M56Da2naPahMd7fOTEyEXC5XF XgaRJpD3TfuG4gIgOmILPnIPQ w F1MtgXFoJAniO195MIzuZbP3G VOuhqHdM8SgRGFikIsiLqN8b5 I9Mt7WEIp2VI81LS09aUMex0V 5 vYW4D8RnZGQgoxzzxqoymTR3D BZoYHGdsT79Qq2osKakTn6iHZ WdVVC5UZHwbZFqN6LrxJ9aIxJ j KYOfVAYgW2MomCRgOQilL386T QpcZgI9BXVxqzEeE8CuHJDgmY xzToX0e0B8Sy3VCROoLE28MRE 5 bMU1VR49EM74Q3WmIqmdgSTim +PHRhYmxlIHdpZHRoPScxMD RxIfZkeLhtQQ9jTz1tZMRsQIC v oXpxdEVrMlDgc8qdAYFnDTfnB A9kaKknW7GrrLM9REKwt8u2Tj 53N54bT5OniKX+QBIeaQV6yPD 0 sX6rToQqVqG1LOwmL133FwZqn ZWeWomes3nse5djnHo8VbN1PW HbggJtsEyvVUQ1w3KwAw91D03 s IHdpZHRoPSIxNSUiIHZhbGlnb t1smL0hKs1+WPDfsKP9sZW3qL 4yTeEqEaM9HYynQ549NdDnxTE v Ilsoe1nvl8ehoMs0LnYcYBVoa pYuwIblWRH4g7UeIt28Q7GsiC vej9NyZml6vi78mQXxn3Y0uOM 9 P8GpCGPddjbelZWjgFpcKA0qG MVyytorGIYzjD2tCTCtP6w1Se IxTdY5COstU2QjcxT2MYLkoRV g AWbbSRO5Q75rm6A8YUOqEAIrI BZ1uXU8tV1kxLowyxyfbUUarD wzbaZizJbzMGcsFRhhM556UKK v nNtsAAOucO4vVTCrmCZlgDzkB J8oZJOjwfasAmCZM6ySGSFkNC xPVUVMTEEgTDwvdGQ+PHRkIHN 0 rFxzFUmtKTVcqM7iQWDnH6q8Y cWtSdY7NHvwK0SyCLVdobxbZy 92fJ0oJmBmOzW4OUjiG4QdnoF 6 MJXhpPAqJEumONA0V94gw5N3G YYxBTMlMQV5wNY3eB2fgXfdgc ogbGVmdDsgdmVydGljYWwtYWx p T561QRPycAqhYuXaQvZ4HfK7C lF5D5UxAek1PYRbnMxxIF0dnZ YpCOquFx1ntQehhOneER6sKDB p qdtcEGSjvH7sBCHmrGXqzWsnF Y6iMGSttddwn334HtUyKVZ1KO CzpJRyI8PyjX1dNtQpCXGwATV w U6LftBNdIRbkA428VJtiAxH1Y XMubyQoE1XdDORwqCoqJrU2z8 U4Sc11GNJXUQQbprqarAB+PHR k FGA0tTctIEbqTBVelI7lOJSlW 0p0ZpSeKkB5ZXdnA3HwYSEhkp hjNw88qM1iOoVxGkG9AOnkA8F v xlY6PKJqcZGpIHtkGNT4H31wo 9T9DZGbUGYrQRC0qNJ4uF1zxB lnbjogbGVmdDsgdmVydGljYWw t ZUteL109LQBwpUydLrZanALlG TwvdGQ+KFZlHXW1tNuqXIaeSP SpvH9qKNYgH8l2MoBmDxR2HLu u M7YoEDHkeljtHq42vW8oGoMhE yB7QHutI3XfomN3ZWZgsMCuOK oaJTM1K07nu2F6VWCrDOHgAFH 7 tDS9cB2zrMpjogvtwQTiwGxim lBpbRajPXvoZSshW474TXLbqZ rlXozwYpBUgj2fFC1uVczejBD + UC55dj27L8WgQgqrHwy8WVTeP GR0vFJ4uH1tHYZbWNxkc9S4fB R2J8HvspXjmk3tb3ieGRNfHXc g H60ugBWnw0F8BWQngLI8OFXen AxlJhVgcM20Sut+PGNvbGdyb3 HyZgale8xxb3uuvZn4EpUsQXW g ytDxnIbpXBA8a3PyZb16U30vJ HdpZHRoPSIzMCUiIHZhbGlnbj 4riG1hLl4+MWEywVH4hWX4bG8 i VsQkEjO3GEnrJ713FrWkoYHrY acrc0mnk0arlNy3CaZbOKGkti QmvMgdTJP6h9IiDn46Z3EmnZu y a6YlTqz3lo92xCYvc3K3lSE7O 4QiXGHjjyalyLBiwNckKA3uWO UpfqjxXEExnX8vHFQbP3p0SxM w CiP4KFopS9XzxqA6EYZbpNUxJ BWfiWPAmW7iqmjkt2bshmpoSh XyUXDuKUs4PNe1YCSrdHxcMuL s JBX0KvM4LXB8kZSjoH5teBpab fwbsN3gLsm+FUh7d3rwyJNqVJ 8cbCC1HM51QL53aRDjs6O5qWO 9 P1DjDAPrqrkrvwgfbOF0QRBwW IOnpJ30Nr7zvTbdSd0cQJFpRT G1NWAzaEBdJ0YfpR8eBoJcCHN w VCZsK2NxjWReXMomP038YRjeC xS0NWLxvmBzB6CvBUCwkGihCl P6u1Z6Xo5TDQ45HA66FW40hJZ g s2F3rGQ8Y2UcKABrklaldqcwq NA8VNDcJYAhfS75Ve5zxEifXm 8fAWFhDBV0ZNAgeGTtD2VnpI6 y XgOcOMEaVWGwS8BgxJDnTVkrN 098LOtmMxW2OECohlXzJ3QiDK WobGgxXkW7s6L6Kj9DVx20BL6 0 LM14vYSxi3A9vIA3G5HqRGGxx tznglgmzPJ4BDWpXMFkdS82Nl 4ghBybDx8eXXWbQQP3BCExoLJ z Z3SehS7oMwXzZEPoHCUiN0Apk RCwRXziA142PTqjSbL3BQDfza YkC6PgYLWwaJppUgV1v1T3Ah3 Q PNicfno1P3YxCruurSQ+PC90Y ZAnUA75lNTenOPmm7vgpTs3Ql HcUZXtKLK6cIyzRBmyk3SqRJR t Y29s (more content not included)... Normal [facility] Coding Summary.on 02-07-2022 Coding Summary. CD:[id number] Gh0bW w+PGhlYWQ+UG6GBDDpY05gxKG goT7FV2zSTO5HTUKFPGDYUF4L QA7sjFZ9ILzjS4BvndZk PlxcoAJhRV58OTz6VPU6cGkjO ZsyeO4scFFpB9u0UkYtAS45qE 65GVeiBOKrQsK7MgLdcwbewKN y M9sxRuTcmIJhApf+PHRhYmxlI HdpZHRoPScxMDAlJyBzdHlsZT 0bDg2pMOVzCJGuiSzvrMSyIuC j v7yvZTOwFByxTX8joYumX3Ypo BU9NIKeq2q6Kh88gOO+PHRkIH G1tZkcKVnbb788KcTcn8jzVMU 3 vQBvHUgpMCS8Q25bc8X7CIRwW AKtPVP1zTG6eC7gmLexjkxnP7 VyxASmXbS0PGU2fTZceT3eqVe n elehtH8rZci+J72DBQ4WCRCZJ I8WRyd0W3DbAdwhwSV+PC90YW XeGR40sFWceRQnm9tiwXo2UjX w CHSmXVZ6bSyfPOlfq4TzDEZyA 75fnLBik3V8OHAgtNxkcPOlWf BeaQO3zW9zYAqsowhjh1azikf n Dsynj5muki04wQ17X42oNPnbD FFgULW1CDGzSNOsuAlbct1arP 9wIi8+VVojx2cgo7qodMa8PzK w UQFmezFdlTpzJFO8u0OzRp76A 8WfgJimp4NnWwp8iu75jYDav6 M6xPS6MUbkXCUruK1eTErdPkK 6 CSCoElOmbL63sNPvFIhwPl2ob WpifRnuFF4qUDZhdlcjIBWyrP 9nSCTdmLCemXvqPU5nLBAfrny m u053CsBxAGN9EFUtyTXiM4Xwa H4zBpTiAZUcVMTvX7RobKOrPU kmN380TPohFjO1CPGbfeRbZ6H s LGQpgLzwBnE3z6L0Or4Xz0Die tghWMT9JBwpLBNyElZpOtEzCg R2T5OiDjd6YYNgeBzyLI9cU9X h TIMehuplaviyeAJ0BTCmUAMhg G50sSLdGQdzVf2pg1P2l479GV LhOGVgjW56Mn6hvXgvWBXzqPM U nB3enmfyv1regnadCuHyMXCrY Xn3AZe7TEYbmOgsWjUeBWA1Pd C6DTV1aTGeiW9dfQpntpfxlH5 w Oyc+T46xhM2lEUD4VMP3yswhY AGlmkFjMN63QG78H3WtTblyuM FibGU+MXBjbkMwvVrdNT6aHsA j v4keq0ZnJLyqT4BlNGBiNKvwL vs7UAFeAJO8lLT0kA9zRUBaGF tek4Y9rNJ1A8UgpxLoru6ru1e s VEDySVyoB76ckJHqg4K0BLIye HB3KGVjhExwRwGmuV49Ffp+PG FmxUhtg1DyGhkfd3tla5ozvYt 9 ApVuDYOqmcUqfXyeIGH3l1CzO t83T12sWVsbWJLvGMTkVTAhQN YijSkkoj6kvY4dNg4+PGNvbCB 3 aXL6uR8aBVCdMmI6JFftJ090V aXybJOkVqvna5iqo2ijmGl8Kw XlQWKznkGpwWwsOXZ6i9NnEs9 8 L72fDHoaQQUlJPGuDAFmJNHlx Xycgl9owJ9vGw6+MG3rq3yorj 90tV64bJQ+AKShSTN7rNdyYCb w MBOhsM3dYDajLlV3YLUiPnXto D70tLFqTPdcLa7hsEipuDqtHX 6kOOHzogvxc183CpKds3zwSBQ w tNJySYwxLED7R27kr3Y5PZMlU TEoNEB9kFB8gL9bhFoivqbrnF HwnCocikQboOrpUMlvLOpjP67 6 IHRvcDsnPlBhdGllbnQgTmFtZ Yo5E4FwNcr4ZMMyyFneOH5xfW IoHOkySi8xlIhrhZipFL1uOGQ p prtnt722LjVih0nxSGZsfAYgW WmeHHP9O81vb4V7KKTpRNBvWY Y9jOZ6pP9yiWtgwrnjnPGghLp g gmIotImiITulNWsmW353QWCog BjvJlXuzcIoIOWevIK7IY15EL 42dKQlv8B4eLG5L5FyUONtrvk t urjhjXS8QYRwGOHyfG86Qg4ox YcfZp2fRHClFRA8CGYdwIOrT2 ScwW3fPuGgEGEvCIDhN1HhkBR t YCbjL146LInySoV3NYZhzrBaD 2BnNBTmlUhuAcL3j3R6Cu0OR3 A6BP35RR21gHYpn5E3dQX2U7X h ICBcxiidfazjjDK5HDZwFJFrg A32Dn6qhPcuIx3zOWZhADV2MQ HyxLJcK8SzcC6oTrAhBHSwFWA w T2UdjEMnYCrxU638BWziSuK8H GYfcpHaJ2ItQCJsoHdeSdN9y7 Y8Fv9TWVf4FS69IJ74xSVbo5N 5 tSR9S5SfCUJtidsjngjmcZY9D AEzWYIyrJ03Az7fjSqsEy7wCR LeZZL2HSGupHMxI1TltE8lBjM j ODZbWPGiD4AfxPUmUJxkC047S CtsFcX8YHXgduOtD2PqHXEcpZ ibXnM7g9Z2Li8YGXXpOB51NWW 5 [id number] +PHRhYmxlIHdpZHRoPScxMD GzLtDdmZriJV8jKj9eBIRbDSU v kYtqcQGmNdTcw8deXLAwGQidH Q7tvNfcU0JzgUN6UFVvw1e8Va 09C34mE9UsmGI+RGImhPB8rPQ 0 dJ2lOzMmBtT8OOhpM129YfUlh KFyOgmlu7ljm2invYv4FpB2VN NrqpBteJkfDZN8j5BcJk51L84 s IHdpZHRoPSIxNSUiIHZhbGlnb z4faY9hEx3+RICyqJD7kUN5uF 1iXvKhIeR1ZCsvT741NbFzmRL v Bggbh0mot0rkeUs5FpAeANXav qAldZwmKTR1r4EzKo62M5StqC icy2CrBis9sk03qNAbs9A0oUO 9 S5AnVJOsththmTJowKmoDJ9pJ ZFxougqDHHylT1gEYOeQ8t7Mt BdTiS3CBdkD4IbczX7KKIvtTS g VBrtLDP2N27fp1Z1JGJgKJGcI DS1qBQ2dE5nzBosauadsSIrgX lcowVdhKaeWFdyBBetE765SEM v sRzlLQLkwA7iFBNvpVQkrMhnR O1cCKFxdxfeCtNXC1xJREDcBV xPVUVMTEEgTDwvdGQ+PHRkIHN 0 nDcyPRjiWILvjC5kAFDuS4x2E rSsTqO6PZbcR5LaQEBfotzpUn 41gV6pWiGiJgW8JRpqU7AfhmJ 6 NLGtuARiYHvxEYS3R76xt2T1V XCeMOLpRVZ4lHE9yX0xsWxuom ogbGVmdDsgdmVydGljYWwtYWx p W360YJQdtBgoUwIxGzF9GqI6D rP5T2PbAnu9WRRpsGktOQ0fnG KpKXgqXe5hnLnwiGlqQU2aXWJ p bjjwWIVizF8uYWYrzDNiaFexR D8kJIWhrrfjd109PaYtQDE6CK LnwULaO1OtrF8nQyMwYVCyIQH w M9MnjNRnMFntA977SXcqXqJ8V UBuopNoT3HpXXQvrLmkYkU8e9 X4Hn60RMWTSWFuyhoxmRU+PHR k CZT8cXmlNCumCALqhP0rRFHjB 2o4GmNvYvS3WFgcZ3SzUCHbul dzDc12kV3qYsKaRsS5GItrX3W v wgH6XUCduHXsYHfvMYW0Q68pq 4Z5NOPfMCAvRCI1gWE0aY4kkR lnbjogbGVmdDsgdmVydGljYWw t IOjdN347EHPkpFmcPtDqiFCkL TwvdGQ+QDKdBCI7kVitCFgmVH FxfC8kGTFoM4v5EgIwQfR5JLb u T8SsOPUrzsdxRv32mV6vAiEgA sM4LNlfD1LfbkS1IJBgjDIiTW kiAUK5E74hv8V6HINsBCCrNCJ 7 xPH0wL2pvVemuhzypXIokPuil gPenNeeOEtvWVcmB413ICDfcO mgPe85hKKgxIrtakY2Z2OxEkf v dHI+KW34ISGqSP87kVPuoFCyl 6udwHc3WtWlFMDpCMG6vXwpJO fjp2DpUASwU30oeDEmc8I1NJT v tMurhNInVzGhlVO3qD0qFFblo raxy3vitnrjVbkiz8jhdf69pL 42Y47qYBihPDUrRKSyUFBnQYS h rHckiw2qnQ6dNo9+DNNshGI9s KZ7nT8mZgJePaM5IUpyF382Qj CuuDXiHchvi2vhr3mdeXz3IoE w XHQfkgXmrJojARB1q4JqCz72C 29sIHdpZHRoPSIyMCUiIHZhbG wbwi2yrN3cKm0+XK8sz7ijhp7 1 cP49kGH+IFCgQQG0bYalEWjfI AQihZ2qHFywNmS6FOUaMhXoqR 33zTKaQNniIu9rlOvmuIhoXF4 w EDRnjxshu503TgDjv9tqYDFdo ZTtOEanKZR5D42no7H0FYOdON NkGMV6dZK1yS1xkCdmdbgqpNZ m gLaawoAvbWpnCYgaURzkH577M FLdvPcxBqZqiDNoB8sdmkOQCY 1lOjwvdGQ+MWUmXSN2lSatGWc w ZSBvrL4wYFSoR5y9FcTyWyP0W VggC8AawgI7OGGgdRCbNQOaoH KYjD3mpsuqw0khkusrJrAwBLA w XJa1NLf1CQDoyEbiKsXxTVC1V zC2MRT2pTOkxL6vgFmwepegjU 9wOyc+RklOOjwvdGQ+PHRkIHN 0 fKrwLYkvOMSsiE1pYNQoR4f0Y eLoDzD1LFbtA2WabgX9NZZquW LrUDVscVXBzB4olkmbf7gpwnp g LyMmDYCoQJk8MRs7TCZtkHqzC xGuWQO1CoR8VOM4wCHmbB7rsP khhzdrbI5vIlo+TVJOOjwvdGQ + TEVoWUW6qHfnWMhnKMTkbQ8jY YQhL3s8PpMoLoO7UBgmR0Hbgw M2TZTjuKGkDJYhnVNDfU1puoc j m8qmkqxoMsInVKErUSj3ZFb4L RMxsKsjHtIpJRO3ZnT2JUZ5qN IymG4geSunrlcaeK2rJyv+UGF 5 AVL8NI46CE90P2MqGoyxnWDui +PHRhYmxlIHdpZHRoPScxMD ThUkFttLhgRU7wAq3tOIXbRJQ v bGxh (more content not included)... Normal [facility] Physician Orderon 02-07-2022 Physician Order [id number]:1 27 Normal [facility] BMPon 02-05-2022 Anion gap [Moles/Vol] 18 mmol/L High 6-16 [facility] Comment on above: Performed By: #### 2 [id number], [id number] #### [facility] [address] [place] [address] Calcium [Mass/Vol] 9.6 mg/dL Normal 8.9-11.1 [facility] Comment on above: Performed By: #### 2 [id number], [id number] #### [facility] [address] [place] [address] Chloride [Moles/Vol] 101 mmol/L Normal 101-111 [facility] Comment on above: Performed By: #### 2 [id number], [id number] #### [facility] [address] [place] [address] CO2 [Moles/Vol] 23 mmol/L Normal 21-31 [facility] Comment on above: Performed By: #### 2 [id number], [id number] #### [facility] [address] [place] [address] Creatinine [Mass/Vol] 1.0 mg/dL Normal 0.5-1.3 [facility] Comment on above: Performed By: #### 2 [id number], [id number] #### [facility] [address] [place] [address] Glucose [Mass/Vol] 154 mg/dL Normal 55-199 [facility] Comment on above: Result Comment: If t his glucose result represents a fasting glucose, interpretation should refer to the following reference range: 55-99 mg/dL Performed By: #### 2 [id number], [id number] #### [facility] [address] [place] [address] Potassium [Moles/Vol] 3.9 mmol/L Normal 3.5-5.3 [facility] Comment on above: Performed By: #### 2 [id number], [id number] #### [facility] [address] [place] [address] Sodium [Moles/Vol] 138 mmol/L Normal 135-145 [facility] Comment on above: Performed By: #### 2 [id number], [id number] #### [facility] [address] [place] [address] Urea nitrogen [Mass/Vol] 19 mg/dL Normal 5-21 [facility] Comment on above: Performed By: #### 2 [id number], [id number] #### [facility] [address] [place] [address] Urea nitrogen/Creatinine [Mass ratio] 19 No Units Normal 10-20 [facility] Comment on above: Performed By: #### 2 [id number], [id number] #### [facility] [address] [place] [address] CHEMISTRYOrdered By: SYSTEM SYSTEM on 02-05-2022 Anion gap [Moles/Vol] 18 mmol/L High 6 - 16 mEq/L [facility] Remisol Calcium [Mass/Vol] 9.6 mg/dL Normal 8.9 - 11. 1 mg/dL [facility] Remisol Chloride [Moles/Vol] 101 mmol/L Normal 101 - 1 11 mmol/L [facility] Remisol CO2 [Moles/Vol] 23 mmol/L Normal 21 - 31 mmol/L [facility] Remisol Creatinine [Mass/Vol] 1.0 mg/dL Normal 0.5 - 1.3 mg/dL [facility] Remisol GFR/1.73 sq M.predicted among blacks MDRD (S/P/Bld) [Vol rate/Area] mL/min/1.73 m2 Normal >=59mL/min /1.73 m2 [facility] Chem S GFR/1.73 sq M.predicted among non-blacks MDRD (S/P/Bld) [Vol rate/Area] 59 mL/min/1.73 m2 Normal >=59mL/min /1.73 m2 [facility] Chem S Glucose [Mass/Vol] 154 mg/dL Normal 55 - 199 mg/dL [facility] Remisol Potassium [Moles/Vol] 3.9 mmol/L Normal 3.5 - 5.3 mmol/L [facility] Remisol Sodium [Moles/Vol] 138 mmol/L Normal 135 - 145 mmol/L [facility] Remisol Urea nitrogen [Mass/Vol] 19 mg/dL Normal 5 - 21 mg/dL [facility] Remisol Urea nitrogen/Creatinine [Mass ratio] 19 mg/mg Normal 10 - 20 [facility] Remisol Consent for Treatmenton 01-10 Consent for Treatment [id number]:12 7 Normal [facility] Physician Orderon 02-05-2022 Physician Order [id number]#[id number]:12 7 Normal [facility] eGFRon 02-05-2022 GFR/1.73 sq M.predicted among blacks MDRD (S/P/Bld) [Vol rate/Area] mL/min/{1.73_m2} Normal >=59 [facility] Comment on above: Order Comment: Order added by Discern Expert. Result Comment: eGFR is race adjusted. AA=. Performed By: #### 2 [id number], [id number] #### [facility] [address] [place] [address] GFR/1.73 sq M.predicted among non-blacks MDRD (S/P/Bld) [Vol rate/Area] 59 mL/min/1.73 m2 Normal >=59 [facility] Comment on above: Order Comment: Order added by Discern Expert. Result Comment: Mica Washer Gluer shayne kidney disease could be indicated at eGFR's of less than 60 mL/min/1.73m2. Kidney failure is indicated at less than 15 mL/min/1.73m2. Performed By: #### 2 [id number], [id number] #### [facility] [address] [place] [address] Coding Summary.on 01-15-2022 Coding Summary. CD:[id number] Gh0bW w+PGhlYWQ+YD1QODTkL83ofAG xmF3VW7jIWU6ERORIBFYOWU8K DG4ydAI0HZpyE8MieaBg ReapqZEnTW33MXr6KRQ5kYjrK StqpE6rvSCeP0b4ZhOnYD99hJ 96QWkpYFBxRzJ7HpLfsrmlyXA y V5fjAlEtlELtJgg+PHRhYmxlI HdpZHRoPScxMDAlJyBzdHlsZT 9dAg1rBHYuMGGimHdpnBLlVmQ j d1cmQWWlOMgwAO9xpXzmG3Tfd HW2HHEwx4y7Ls03oPF+PHRkIH B5uVmdIEjpu693CjOch0dvGGT 3 bONtGHylSYF7G06qj5D2MPFoC UTxZST2pMT2qX3alYycadirV4 KdwZLiFhG9JTG3qZCojZ0eaDy n rdxxtR4yMfc+I58JNM3LWCBGX N6OYcu2M8HjOeovgJL+PC90YW BbBA33kOIbwBAsn6dxeCk5UjG w WCUhRCR9hQulHLjel1RiRQPyV 49gcGTsh2U0BNDnnPnnjHNdWf EcfOY8tC7lWKitprduw4rwcyt n Knuba3dbao99bB87C21uMXbuB FFpJTF7ZIWfHTZtzYxfpq3hhC 9wIi8+KFhne9msg1qcdIh7YhI w KHZfupPmwUkpRBS3v7XyWp38E 7PsdWdlh9LvAhn8cd69rBUwf1 T2cAE1AVbbRTFldO7fKRkyRyO 6 KSOpGtDuzV72aQNzQJacPk3ss AvwbHntGX7kYZLyytyjMSIazL 7wOFQofZOanLcaWE6oMUFowmr m w489WzNfLVC5OLIozRAzO7Pld I5zBgDySXZfXDLzU1FjlMAzZI usK258JGwbDyL7PIKkwiKlJ6G s NAYpiSpmKoY4g1R7Xy8Vb0Wfe leaIIF1TKzdWJUnVfB8FhKfZj X9Z6KhRne2FHWmiAfxXJ3qG3K h CEKaaeszpaclrUQ8AXEaEHWse X24jOBbSPluQp4wq7J5y351US OiDYQruN95Be9keDgeMKCprIC U zV0zgmtgc0hgskgnDsOxTXXwD Cq3QDg4JEHfuHcqDvEvDQI6Cm T9VMP0nONcuQ2bhXogqbyupG4 w Oyc+D53frX8lUJV3OXO6rwdpQ DSbfdRjVK03WB04L0XsBsvlxV FibGU+ZWQioeArtRcyZE1bWyT j l7any3OxZNihF9ChZXWdFJtmA uh6HXVwGTL2eNX7cK6vWSFiNV vxo3F8nOZ3R5PmsfLpun0op4c s GPDgBPsqM80irEBfv4U9YAJfp EX9UIKldWxvTbZnjW65Bsz+PG UryScxh0AqLmmha9iyx6cjyYv 9 CaZoOHTqodMqwFflHNR1j8JsD w57L29xTXhxTDSxTQQsNBFuSE OdmFtuxd5uyM9gQa9+PGNvbCB 3 xDI4tG0rTFUxTiF9MHzsM619O jYveQXxAhvvb6ixs3wwlPc4Cz SrNTHypyYykNlaWBO3f3YeRu6 8 T93jDIidCSAwHIZtFZTtLPHgs Loppe6osG9gTy9+ZY7dg0smib 99zC91rBM+FDGfMYF0tEmgHFl w TPSswV6nWDbhScF9QYOzVhKfd S96ySDsABluPm0vjLjltFqwKE 0sSLPkllkrz732NfYgp2btPFO w iXDnBYdvMQN5U70qk5I0RXQrA GHbHQK3rOC5eR3adMaqjesyyU QwaOelaoPgnLclAYirCWfoJ58 6 IHRvcDsnPlBhdGllbnQgTmFtZ Vy4J7HnCmn0GHDxsJgeRJ4hxV IeUBcqVw4tnZfvtAbrLR2jIIT p impnj403DdTog4siMBHukBCbC IwrNSX8N11pe2X4STLjBECsAD K8cZD8nA5gdYoyqgedvZUwsRp g alJijInvOZwlAQigT657OBMva TnqCsNuklIcLDAxbEZ4SH71KW 72hHLnx3Y5lPL8L0AvGTQwsnm t mmaigJQ3KTKlPKAisR91Go9vb UowPi7dRCNkUAQ1JKVqvIPeP9 NcrG9sXnEaSEMzLJNrV0ZppYJ t AYtiR464PCraXmP0PRTemfXxZ 0IyZLBzrLejJrK6z2N0Sc3ME8 X4ZW64RA05tNNvi7H2iIR1H8R h YRJhyygtovuqzSQ6KRQzCZXoi C83Qs7qxJdtFe2dEKDbBFI7IE TfhEFaA7LhxU3rCcEkWQQlIRT w J1XgzMGsYQhcO583QPjfQeH5B FRfzyJlK3DqNKVecYyeBzO7m1 H3Ug5QMAg7YB26RO15wMWwi2T 5 lYW5F2ZsDHNquaqonigtfZM3C KSiNTDkvI61Fr2jzGbbBh3mYH MwUTX9PLXmgKRmB7DwiP1mDdN j AZVgBRFcJ6FmkKQfCKkbT932V IqcLqW8EBGbyySxJ7TwMDAxzI zsZsL6x5K1Sb8ZVZHwDW48YXL 5 rTJ2TD05RN05V7BzQmgbhFHoe +PHRhYmxlIHdpZHRoPScxMD KpZaBleLykVA8pWq0vBPGyQBV v wSzngRKeSgCvh5suWBFkGWejG A9qkNfeO2JelEW0EHNjs3u9Uo 37D14tS0KmqPT+YEAgrFL4kND 0 wE8lYjJjJhC8EYdiA895CkOpi IRzMwgpv2ulj0uggCi8PgB0HK HwwtKfkWayDGP8i0XiRw38R33 s IHdpZHRoPSIxNSUiIHZhbGlnb b7ckR6cZn1+DKAcdRE0kOQ7mL 5xFmJaDzR1NTarD463MpUfwVT v Uckpo7gtz9gisLz5CiQaBZMmg mZmnZrlBEK7w6VfSj56N8YayD zdn3QeQyb8wj18rWHdz2S1xHA 9 V6EeCULwjqdyzSZowUhvJC6uJ SWgkdpnCRPmlJ6rSBMaL0r1Se DaEhD2BGbmO3HoabC7FVVakWC g AVevKBE9I33nz2B1VYLyKAHxG KM2dHD6aI0fcSczlfuofLLsyD kgqeQwqSuvVFpiZVirL155JNM v qTreJFIwpO9wMNAmfKGmxCcoY P4eIVZlrorwNwKGR2xHXCWrZC xPVUVMTEEgTDwvdGQ+PHRkIHN 0 vDjrGNxeGJCeiF1iCRDdZ8f0Y oZvIfW9KYmwP3YzRSMixqtdEd 40bW8wWdDbWoZ7DAmuG7EfdiR 6 ONYuiQSvPKgqABO4S12ji2N7S KVrYKMlCAH5mMR1yO9zwBzqyp ogbGVmdDsgdmVydGljYWwtYWx p Y971FUFjyKhsPqDoVzM9KrT6O tH0O6ImZax7FQVfjOcyTQ6lpD TlZQwqNx9otOgduEchUK2bKPE p qenfYUNhtS5wKVYfcVCqsXumI Z2nDCOvxfamp932PmRnBQA5BD PreEUqQ2CrqS5rDzMxAMYmFOY w Q8XccYMtKBrsF145JKfgBcV9R GAyyhMgZ1RbPXBahMtjJzF1k4 I5Vs93OZYJOTBevalcmWC+PHR k ELQ3vYhjQOntWSHzkC5eCRZdE 4j6PjRyTaH7QCvvL3MwPFVukj uyDj00lK2pTyLvYhD7UTiiI6J v ubQ3ZNZbaUObBOabIPO6R42vt 9T1LVHfTGSfUTJ6lFK1bI3dgX lnbjogbGVmdDsgdmVydGljYWw t HRnwZ735RHUabOmiFjWfpWXpA TwvdGQ+XPCkUWL3eUdsDVvcFQ LscB0tACKbX8c9HxZlHuG2TWm u O2FnYWUcdbwuPj16lN3iBsEiD pP1SUigM2CkssC2IOLojRFsRF zmLBO4V11ds4E1QAUtMSWoIGG 7 qVV4cH6ikUjlpgqbfVCneYvwh pEgoEfyQGtzAIlsA747TIWmtP fzPq30lIDucNhujrB1G9NzMze v dHI+IC35FRIsYH46mGVwlSMjb 4gbpEk6NuXeNIQwTIQ0jUxfDK awp3FyNKSzD98zoPCrv5F8VBT v bQbksGWcWlJrlVN3hM6qCWqlh jvsd5jrhfsnEdzuu6mavw12cA 78Q31gGLvpTWIsSJUdQTIwZII h cXgsuq8kkQ3iUa4+AQXrsKC7y AY8wX4tUrDiVjR4WDkwF030Wc MirZZnPsdpv2mdf7oiaBl2ObD w LANhreSamAvqMKN5h6VzFl14A 29sIHdpZHRoPSIyMCUiIHZhbG ntak5pkS2yBf9+FX8bi5qidj5 1 wC39pTF+PSGwBFR1mJgeJLhxP DKnkL8lQIlpPdI7FBFfYqPveK 63cNRiRPgrCf3kpXtroPqsAO3 w GXHlhbhqg172BgJqw3meKGTnz BXnXCdjOHQ1Q66fh9Q6CVBnAG WeZJK0oJD5tK1yaBehiwdlpWV m rIjqwgLnhSkqMKtwLUvvF747L ILhmOabKdTjtTRdR9pklvADUC 1lOjwvdGQ+EIPyFEW3bVyfEAq w KVZoeD8jQOWqL7h7DuIjQrG1K XxjH6RsnqZ1FUOxdYEzVDWfnK VGzW1rjxjbm8pxptpwHuQnPSN w CLj2YCu2KSIbhLfbKaMgXEQ3F kG0SMW3dQFcwU6mdVmbdapbbE 9wOyc+RklOOjwvdGQ+PHRkIHN 0 lIgvFLflFAUkrX4xYITcR7d2J hNqWsY5FSkxV6TeqjC5EVRfzN HiLCPomEVIpT1fiwyic0ogojd g OlTbKCBfGRa0IBs3OQSjcUyjI sGrAXB6MoB7THK1uSJvdA6tuE vzjdldcE9rGjm+TVJOOjwvdGQ + FTJpJEK5vOmjLLskSUBxlT6zW HTtC9b6KcRjRlA4VGbgF5Igzd M6UNHqhGYaFBMljZLCtA5hrfo j e3egmwhcIzKzQURbHDf6GTi1Y KJsdYshIlKjFUS7IgO6CAV8gX GbiV4ibCixzpclaW8vNdy+UGF 5 TGY6VT71LM34S9FaImrnoTZwx +PHRhYmxlIHdpZHRoPScxMD CrJeJrqFsaAO2uHz2iWANcZSZ v bGxh (more content not included)... Normal [facility] Auto Diffon 01-08-2022 Basophils/100 WBC (Bld) 0.6 % Normal 0.0-2.0 [facility] Comment on above: Order Comment: Order Added by Discern Expert. Performed By: #### 2 [id number], [id number] #### [facility] [address] [place] [address] Basophils/Leukocytes Auto (Bld) [Pure # fraction] 0.1 E9/L Normal 0.0-0.2 [facility] Comment on above: Order Comment: Order Added by Discern Expert. Performed By: #### 2 [id number], [id number] #### [facility] [address] [place] [address] Eosinophils/100 WBC (Bld) 1.4 % Normal 0.0-8.0 [facility] Comment on above: Order Comment: Order Added by Discern Expert. Performed By: #### 2 [id number], [id number] #### [facility] [address] [place] [address] Eosinophils/Leukocytes Auto (Bld) [Pure # fraction] 0.2 E9/L Normal 0.0-0.5 [facility] Comment on above: Order Comment: Order Added by Discern Expert. Performed By: #### 2 [id number], [id number] #### [facility] [address] [place] [address] Lymphocytes/100 WBC (Bld) 35.6 % Normal 14.0-50.0 [facility] Comment on above: Order Comment: Order Added by Discern Expert. Performed By: #### 2 [id number], [id number] #### [facility] [address] [place] [address] Lymphocytes/Leukocytes Auto (Bld) [Pure # fraction] 4.2 E9/L High 1.0-4.0 [facility] Comment on above: Order Comment: Order Added by Discern Expert. Performed By: #### 2 [id number], [id number] #### [facility] [address] [place] [address] Monocytes/100 WBC (Bld) 3.0 % Low 4.0-14.0 [facility] Comment on above: Order Comment: Order Added by Discern Expert. Performed By: #### 2 [id number], [id number] #### [facility] [address] [place] [address] Monocytes/Leukocytes Auto (Bld) [Pure # fraction] 0.4 E9/L Normal 0.2-1.0 [facility] Comment on above: Order Comment: Order Added by Discern Expert. Performed By: #### 2 [id number], [id number] #### [facility] [address] [place] [address] Neutrophils/100 WBC (Bld) 59.4 % Normal 36.0-75.0 [facility] Comment on above: Order Comment: Order Added by Discern Expert. Performed By: #### 2 [id number], [id number] #### [facility] [address] [place] [address] Neutrophils/Leukocytes Auto (Bld) [Pure # fraction] 7.0 E9/L Normal 2.0-7.5 [facility] Comment on above: Order Comment: Order Added by Discern Expert. Performed By: #### 2 [id number], [id number] #### [facility] [address] [place] [address] BMPon 01-08-2022 Anion gap [Moles/Vol] 17 mmol/L High 6-16 [facility] Comment on above: Performed By: #### 2 [id number], [id number] #### [facility] [address] [place] [address] Calcium [Mass/Vol] 10.1 mg/dL Normal 8.9-11.1 [facility] Comment on above: Performed By: #### 2 263210, [id number] #### [facility] [address] [place] [address] Chloride [Moles/Vol] 99 mmol/L Low 101-111 [facility] Comment on above: Performed By: #### 2 [id number], [id number] #### [facility] [address] [place] [address] CO2 [Moles/Vol] 22 mmol/L Normal 21-31 [facility] Comment on above: Performed By: #### 2 [id number], [id number] #### [facility] [address] [place] [address] Creatinine [Mass/Vol] 1.1 mg/dL Normal 0.5-1.3 [facility] Comment on above: Performed By: #### 2 [id number], [id number] #### [facility] [address] [place] [address] Glucose [Mass/Vol] 356 mg/dL High 55-199 [facility] Comment on above: Result Comment: If t his glucose result represents a fasting glucose, interpretation should refer to the following reference range: 55-99 mg/dL Performed By: #### 2 [id number], [id number] #### [facility] [address] [place] [address] Potassium [Moles/Vol] 4.2 mmol/L Normal 3.5-5.3 [facility] Comment on above: Performed By: #### 2 [id number], [id number] #### [facility] [address] [place] [address] Sodium [Moles/Vol] 134 mmol/L Low 135-145 [facility] Comment on above: Performed By: #### 2 145963, [id number] #### [facility] [address] [place] [address] Urea nitrogen [Mass/Vol] 18 mg/dL Normal 5-21 [facility] Comment on above: Performed By: #### 2 [id number], [id number] #### [facility] [address] [place] [address] Urea nitrogen/Creatinine [Mass ratio] 16 No Units Normal 10-20 [facility] Comment on above: Performed By: #### 2 [id number], [id number] #### [facility] [address] [place] [address] CBC w/ Auto Diffon Erythrocyte distribution width (RBC) [Ratio] 13.5 % Normal 10.9-14.2 [facility] Comment on above: Performed By: #### 2 [id number], [id number] #### [facility] [address] [place] [address] Hematocrit (Bld) [Volume fraction] 46.4 % High 34.0-46.0 [facility] Comment on above: Performed By: #### 2 060552, [id number] #### [facility] [address] [place] [address] Hemoglobin (Bld) [Mass/Vol] 15.8 g/dL Normal 12.0-16.0 [facility] Comment on above: Performed By: #### 2 699302, [id number] #### [facility] [address] [place] [address] MCH (RBC) [Entitic mass] 30.4 pg Normal 27.0-34.0 [facility] Comment on above: Performed By: #### 2 791065, [id number] #### [facility] [address] [place] [address] MCHC (RBC) [Mass/Vol] 34.1 g/dL Normal 31.4-36.0 [facility] Comment on above: Performed By: #### 2 050019, [id number] #### [facility] [address] [place] [address] MCV (RBC) [Entitic vol] 89.1 fL Normal 80.0-100.0 [facility] Comment on above: Performed By: #### 2 903058, [id number] #### [facility] [address] [place] [address] Platelet mean volume (Bld) [Entitic vol] 9.8 fL Normal 6.4-10.8 [facility] Comment on above: Performed By: #### 2 [id number], [id number] #### [facility] [address] [place] [address] Platelets (Bld) [#/Vol] 252.0 E9/L Normal 150. 0-500. 0 [facility] Comment on above: Performed By: #### 2 017268, [id number] #### [facility] [address] [place] [address] RBC (Bld) [#/Vol] 5.2 E12/L Normal 4.3-5.9 [facility] Comment on above: Performed By: #### 2 053373, [id number] #### [facility] [address] [place] [address] WBC corrected for nucl RBC Auto (Bld) [#/Vol] 11.8 E9/L High 4.0-11.0 [facility] Comment on above: Performed By: #### 2 612161, [id number] #### [facility] [address] [place] [address] CHEMISTRYOrdered By: SYSTEM SYSTEM on 01-08-2022 Anion gap [Moles/Vol] 17 mmol/L High 6 - 16 mEq/L [facility] Remisol Calcium [Mass/Vol] 10.1 mg/dL Normal 8.9 - 11. 1 mg/dL [facility] Chloride [Moles/Vol] 99 mmol/L Low 101 - 1 11 mmol/L [facility] CO2 [Moles/Vol] 22 mmol/L Normal 21 - 31 mmol/L [facility] Creatinine [Mass/Vol] 1.1 mg/dL Normal 0.5 - 1.3 mg/dL [facility] Remisol GFR/1.73 sq M.predicted among blacks MDRD (S/P/Bld) [Vol rate/Area] mL/min/1.73 m2 Normal >=59mL/min /1.73 m2 [facility] Chem S GFR/1.73 sq M.predicted among non-blacks MDRD (S/P/Bld) [Vol rate/Area] 53 mL/min/1.73 m2 Low >=59mL/min /1.73 m2 [facility] Chem S Glucose [Mass/Vol] 356 mg/dL High 55 - 199 mg/dL [facility] Remisol Potassium [Moles/Vol] 4.2 mmol/L Normal 3.5 - 5.3 mmol/L [facility] Remisol Sodium [Moles/Vol] 134 mmol/L Low 135 - 145 mmol/L [facility] Remisol Urea nitrogen [Mass/Vol] 18 mg/dL Normal 5 - 21 mg/dL [facility] Remisol Urea nitrogen/Creatinine [Mass ratio] 16 mg/mg Normal 10 - 20 [facility] Consent for Treatmenton 12-11 Consent for Treatment [id number]:12 7 Normal [facility] HEMATOLOGYOrdered By: SYSTEM SYSTEM on 01-08-2022 [...] 7.0 E9/L Normal 2.0 - 7.5 E9/L [facility] HEMATOLOGYOrdered By: Wild Beaver on 01-08-2022 Erythrocyte distribution width (RBC) [Ratio] 13.5 % Normal 10.9 - 14.2 % [facility] Hematocrit (Bld) [Volume fraction] 46.4 % High 34.0 - 46.0 % [facility] Hemoglobin (Bld) [Mass/Vol] 15.8 g/dL Normal 12.0 - 16.0 gm/dL [facility] MCH (RBC) [Entitic mass] 30.4 pg Normal 27. 0 - 34.0 pg [facility] MCHC (RBC) [Mass/Vol] 34.1 g/dL Normal 31.4 - 36.0 gm/dL [facility] MCV (RBC) [Entitic vol] 89.1 fL Normal 80.0 - 100.0 fL [facility] Platelet mean volume (Bld) [Entitic vol] 9.8 fL Normal 6.4 - 10.8 fL [facility] Platelets (Bld) [#/Vol] 252.0 E9/L Normal 150. 0 - 500.0 E9/L [facility] RBC (Bld) [#/Vol] 5.2 E12/L Normal 4.3 - 5.9 E12/L [facility] WBC corrected for nucl RBC Auto (Bld) [#/Vol] 11.8 E9/L High 4.0 - 11.0 E9/L [facility] Pharmacy Officeon 01-08-2022 Pharmacy Office [id number]:1 27 Normal [facility] Physician Orderon 01-08-2022 Physician Order [id number]#1.00CD:12 7 Normal [facility] eGFRon 01-08-2022 GFR/1.73 sq M.predicted among blacks MDRD (S/P/Bld) [Vol rate/Area] mL/min/{1.73_m2} Normal >=59 [facility] Comment on above: Order Comment: Order added by Discern Expert. Result Comment: eGFR is race adjusted. AA=. Performed By: #### 2 [id number], [id number] #### [facility] [address] [place] [address] GFR/1.73 sq M.predicted among non-blacks MDRD (S/P/Bld) [Vol rate/Area] 53 mL/min/1.73 m2 Low >=59 [facility] Comment on above: Order Comment: Order added by Discern Expert. Result Comment: Mica Washer Gluer shayne kidney disease could be indicated at eGFR's of less than 60 mL/min/1.73m2. Kidney failure is indicated at less than 15 mL/min/1.73m2. Performed By: #### 2 [id number], [id number] #### [facility] [address] [place] [address] PTH INTACTon 09-13-2021 PTH, Intact 17 pg/mL Normal 15-65 [facility] Comment on above: Performed By: #### M G, RENAL, URIC #### [facility] [address] [place] [address] Dr. Tyree Botello HEMOGRAM AND PLATELon 2021 Hematocrit (Bld) [Volume fraction] 46.5 % Normal 36.0-48.0 [facility] Comment on above: Performed By: #### M G, RENAL, URIC #### [facility] [address] [place] [address] Dr. Tyree Botello Hemoglobin (Bld) [Mass/Vol] 15.7 g/dL Normal 12.0-16.0 [facility] Comment on above: Performed By: #### M G, RENAL, URIC #### [facility] [facility] [address] [place] [address] Dr. Tyree Botello MCH (RBC) [Entitic mass] 30.0 pg Normal 26.7-34.0 [facility] Comment on above: Performed By: #### M G, RENAL, URIC #### [facility] [address] [place] [address] Dr. Tyree Botello MCHC (RBC) [Mass/Vol] 33.8 g/dL Normal 29.9-35.2 [facility] Comment on above: Performed By: #### M G, RENAL, URIC #### [facility] [address] [address] [address] Tyree Botello MCV (RBC) [Entitic vol] 88.9 fL Normal 81.0-99.0 [facility] Comment on above: Performed By: #### M G, RENAL, URIC #### [facility] [address] [place] [address] Dr. Tyree Botello PLT 261 103/ul Normal 150-450 [facility] Comment on above: Performed By: #### M Quinton, RENAL, URIC #### [facility] [address] [place] [address] Dr. Tyree Botello RBC 5.23 106/ul Normal 4.20-5.40 [facility] Comment on above: Performed By: #### M Quinton, RENAL, URIC #### [facility] [address] [place] [address] Dr. Tyree Botello WBC 11.1 103/ul Critically high 4.0-11.0 [facility] Comment on above: Performed By: #### M Quinton, RENAL, URIC #### [facility] [address] [place] [address] Dr. Tyree Botello MAGNESIUMon 09-12-2021 Magnesium [Mass/Vol] 1.3 mg/dL Critically low 1.8-2.[address] [facility] Comment on above: Performed By: #### M G, RENAL, URIC #### [facility] [address] [place] [address] Dr. Tyree Botello RENAL FUNCTION PANELon 09-12 Albumin [Mass/Vol] 3.4 g/dL Normal 3.4-5.0 [facility] Comment on above: Performed By: #### M G, RENAL, URIC #### [facility] [address] [place] [address] Dr. Tyree Botello Calcium [Mass/Vol] 10.3 mg/dL Critically high 8.5-10.1 [facility] Comment on above: Performed By: #### M G, RENAL, URIC #### [facility] [address] [address] [address] Tyree Botello Chloride [Moles/Vol] 100 mmol/L Normal 98-107 [facility] Comment on above: Performed By: #### M G, RENAL, URIC #### [facility] [address] [place] [address] Dr. Tyree Botello CO2 [Moles/Vol] 23.1 mmol/L Normal 21.0-32.0 [facility] Comment on above: Performed By: #### M G, RENAL, URIC #### [facility] [address] [place] [address] Dr. Tyree Botello Creatinine [Mass/Vol] 1.11 mg/dL Critically high 0.55-1.02 [facility] Comment on above: Performed By: #### M G, RENAL, URIC #### [facility] [address] [place] [address] Dr. Tyree Botello EGFR-AF MONTENEGRIN >60 Normal >=60 [facility] Comment on above: Performed By: #### M G, RENAL, URIC #### [facility] [address] [place] [address] Dr. Tryee Botello EGFR-NON AF MONTENEGRIN 52 mL/min/1.73m2 Critically low >=60 [facility] Comment on above: Performed By: #### M G, RENAL, URIC #### [facility] [address] [place] [address] Dr. Tyree Botello Glucose [Mass/Vol] 239 mg/dL Critically high 74-106 [facility] Comment on above: Performed By: #### M G, RENAL, URIC #### [facility] [address] [place] [address] Dr. Tyree Botello Phosphate [Mass/Vol] 2.6 mg/dL Normal 2.6-4.7 [facility] Comment on above: Performed By: #### M G, RENAL, URIC #### [facility] [address] [place] [address] Dr. Tyree Botello Potassium [Moles/Vol] 4.2 mmol/L Normal 3.5-5.[address] [facility] Comment on above: Performed By: #### M G, RENAL, URIC #### [facility] [address] [place] [address] Dr. Tyree Botello Sodium [Moles/Vol] 137 mmol/L Normal 136-[address] [facility] Comment on above: Performed By: #### M G, RENAL, URIC #### [facility] [address] [place] [address] Dr. Tyree Botello Urea nitrogen [Mass/Vol] 21.0 mg/dL Critically high 7.0-18 .0 [facility] Comment on above: Performed By: #### M G, RENAL, URIC #### [facility] [address] [place] [address] Dr. Tyree Botello UA RANDOM W/MICROSCOPICon BACTERIA MODERATE Abnormal NONE SEEN [facility] Comment on above: Performed By: #### M G, RENAL, URIC #### [facility] [address] [place] [address] Dr. Tyree Botello Bilirubin Ql (U) Negative Normal NEGATIVE [facility] Comment on above: Performed By: #### M G, RENAL, URIC #### [facility] [address] [place] [address] Dr. Tyree Botello CAST SEEN Abnormal NONE SEEN [facility] Comment on above: Performed By: #### M G, RENAL, URIC #### [facility] [address] [place] [address] Dr. Tyree Botello Clarity (U) CLEAR Normal CLEAR [facility] Comment on above: Performed By: #### M G, RENAL, URIC #### [facility] [address] [place] [address] Dr. Tyree Botello Color (U) YELLOW Normal YELLOW [facility] Comment on above: Performed By: #### M G, RENAL, URIC #### [facility] [address] [place] [address] Dr. Tyree Botello Crystals LM Nom (Urine sed) NONE SEEN Normal NONE SEEN [facility] Comment on above: Performed By: #### M G, RENAL, URIC #### [facility] [address] [address] [address] Tyree Botello Epithelial cells LM Ql (Urine sed) FEW Abnormal NONE SEEN /RARE [facility] Comment on above: Performed By: #### M G, RENAL, URIC #### [facility] [address] [address] [address] Tyree Botello Glucose Ql (U) >1000 Abnormal NEGATIVE The [facility] Comment on above: Performed By: #### M G, RENAL, URIC #### [facility] [address] [address] [address] Tyree Botello Hemoglobin Ql (U) SMALL Abnormal NEGATIVE The [facility] Comment on above: Performed By: #### M G, RENAL, URIC #### [facility] [address] [place] [address] Dr. Tyree Botello HYALINE CAST RARE Normal The [facility] Comment on above: Performed By: #### M G, RENAL, URIC #### [facility] [address] [address] [address] Tyree Botello Ketones Ql (U) Negative Normal NEGATIVE The [facility] Comment on above: Performed By: #### M G, RENAL, URIC #### [facility] [address] [address] [address] Tyree Botello LEUKOCYTES Negative Normal NEGATIVE The [facility] Comment on above: Performed By: #### M G, RENAL, URIC #### [facility] [address] [address] [address] Tyree Botello MUCOUS NONE SEEN Normal NONE SEEN [facility] Comment on above: Performed By: #### M G, RENAL, URIC #### [facility] [address] [address] [address] Tyree Botello Nitrite Ql (U) Negative Normal NEGATIVE [facility] Comment on above: Performed By: #### M G, RENAL, URIC #### [facility] [address] [address] [address] Tyree Botello pH (U) 5.5 [pH] Normal 5-[address] [facility] Comment on above: Performed By: #### M G, RENAL, URIC #### [facility] [address] [place] [address] Dr. Tyree Botello RBC 2-5 Abnormal 0-[address] [facility] Comment on above: Performed By: #### M G, RENAL, URIC #### [facility] [address] [address] [address] Tyree Botello SPEC GRAVITY >=1.030 Abnormal 1.005-<=1. [address] [facility] Comment on above: Performed By: #### M G, RENAL, URIC #### [facility] [address] [place] [address] Dr. Tyree Botello UA PROTEIN 100 mg/dl Abnormal NEGATIVE/ TRACE The [facility] Comment on above: Performed By: #### M G, RENAL, URIC #### [facility] [address] [place] [address] Dr. Tyree Botello Urobilinogen Qn (U) 0.2 {Jennifer'U}/dL Normal 0.2 - 1. 0 [facility] Comment on above: Performed By: #### M G, RENAL, URIC #### [facility] [address] [place] [address] Dr. Tyree Botello WBC 5-10 Abnormal NONE SEEN The [facility] Comment on above: Performed By: #### M G, RENAL, URIC #### [facility] [address] [place] [address] Dr. Tyree Botello URIC ACID SERUMon 09-12-2021 Urate [Mass/Vol] 6.5 mg/dL Critically high 2.6-6.[address] [facility] Comment on above: Performed By: #### M G, RENAL, URIC #### [facility] [address] [place] [address] Dr. Tyree Botello URINE T PROTEIN CREAT RATIOo n 09-12-2021 Protein (U) [Mass/Vol] 177.8 mg/dL Critically high <=12.0 [facility] Comment on above: Performed By: #### M G, RENAL, URIC #### [facility] [address] [place] [address] Dr. Tyree Botello UR PROT CREAT RAT 1.06 Normal [facility] Comment on above: Performed By: #### M G, RENAL, URIC #### [facility] [address] [place] [address] Dr. Tyree Botello URINE CREAT 168.43 mg/dL Normal 20.00-300. 00 [facility] Comment on above: Performed By: #### M G, RENAL, URIC #### [facility] [address] [place] [address] Dr. Tyree Botello VITAMIN D 25 OHon 09-12-2021 VIT D 25-OH 45.5 ng/mL Normal [facility] Comment on above: Performed By: #### M G, RENAL, URIC #### [facility] [address] [place] [address] Dr. Tyree Botello VIT D RANGES SEE BELOW Normal [facility] Comment on above: Result Comment: <20 ng/mL Vit D deficient 20 - <30 ng/mL Vit D insufficient 30 - 100 ng/mL Vit D sufficient >100 ng/mL Potential Toxicity Performed By: #### M G, RENAL, URIC #### [facility] [address] [place] [address] Dr. Tyree Botello CBC AUTO DIFFon 08-30-2021 BASO # 0.1 103/ul Normal 0.0-0.1 [facility] Comment on above: Performed By: #### M G, RENAL, URIC #### [facility] [address] [place] [address] Dr. Tyree Botello Basophils/100 WBC (Bld) 0.5 % Normal 0.2-2.0 [facility] Comment on above: Performed By: #### M G, RENAL, URIC #### [facility] [address] [place] [address] Dr. Tyree Botello EO # 0.1 103/ul Normal 0.0-0.7 [facility] Comment on above: Performed By: #### M G, RENAL, URIC #### [facility] [address] [place] [address] Dr. Tyree Botello Eosinophils/100 WBC (Bld) 1.1 % Normal 0.9-7.0 [facility] Comment on above: Performed By: #### M G, RENAL, URIC #### [facility] [address] [place] [address] Dr. Tyree Botello Erythrocyte distribution width (RBC) [Ratio] 12.7 % Normal 11.0-15.0 [facility] Comment on above: Performed By: #### M G, RENAL, URIC #### [facility] [address] [place] [address] Dr. Tyree Botello Hematocrit (Bld) [Volume fraction] 44.6 % Normal 36.0-48.0 [facility] Comment on above: Performed By: #### M G, RENAL, URIC #### [facility] [address] [place] [address] Dr. Tyree Botello Hemoglobin (Bld) [Mass/Vol] 15.0 g/dL Normal 12.0-16.0 [facility] Comment on above: Performed By: #### M G, RENAL, URIC #### [facility] [address] [place] [address] Dr. Tyree Botello IG # 0.05 10e3/ul Critically high 0.00-0.03 [facility] Comment on above: Performed By: #### M G, RENAL, URIC #### [facility] [address] [place] [address] Dr. Tyree Botello IG % 0.4 % Normal 0.0-0.[address] [facility] Comment on above: Performed By: #### M G, RENAL, URIC #### [facility] [address] [place] [address] Dr. Tyree Botello LYMPH # 3.6 103/ul Normal 1.2-3.[address] [facility] Comment on above: Performed By: #### M G, RENAL, URIC #### [facility] [address] [place] [address] Dr. Tyree Botello Lymphocytes/100 WBC (Bld) 29.8 % Normal 20.5-60.0 [facility] Comment on above: Performed By: #### M G, RENAL, URIC #### [facility] [address] [place] [address] Dr. Tyree Botello MANUAL DIFF REQ NO Normal [facility] Comment on above: Performed By: #### M G, RENAL, URIC #### [facility] [address] [place] [address] Dr. Tyree Botello MCH (RBC) [Entitic mass] 29.9 pg Normal 26.7-34.0 [facility] Comment on above: Performed By: #### M G, RENAL, URIC #### [facility] [address] [place] [address] Dr. Tyree Botello MCHC (RBC) [Mass/Vol] 33.6 g/dL Normal 29.9-35.2 [facility] Comment on above: Performed By: #### M G, RENAL, URIC #### [facility] [address] [place] [address] Dr. Tyree Botello MCV (RBC) [Entitic vol] 88.8 fL Normal 81.0-99.0 [facility] Comment on above: Performed By: #### M G, RENAL, URIC #### [facility] [address] [place] [address] Dr. Tyree Botello MONO # 0.6 103/ul Normal 0.3-0.8 [facility] Comment on above: Performed By: #### M G, RENAL, URIC #### [facility] [address] [place] [address] Dr. Tyree Botello Monocytes/100 WBC (Bld) 5.2 % Normal 1.7-12.0 [facility] Comment on above: Performed By: #### M G, RENAL, URIC #### [facility] [address] [place] [address] Dr. Tyree Botello NEUT # 7.5 103/ul Critically high 1.4-6.5 [facility] Comment on above: Performed By: #### M G, RENAL, URIC #### [facility] [address] [place] [address] Dr. Tyree Botello Neutrophils/100 WBC (Bld) 63.0 % Normal 43.0-75.0 [facility] Comment on above: Performed By: #### M G, RENAL, URIC #### [facility] [address] [address] [address] Tyree Botello Platelet mean volume (Bld) [Entitic vol] 11.4 fL Normal 9.5-13.5 [facility] Comment on above: Performed By: #### M G, RENAL, URIC #### [facility] [address] [address] [address] Tyree Botello PLT 225 103/ul Normal 150-[address] [facility] Comment on above: Performed By: #### M G, RENAL, URIC #### [facility] [address] [address] [address] Tyree Botello RBC 5.02 106/ul Normal 4.20-5.40 [facility] Comment on above: Performed By: #### M G, RENAL, URIC #### [facility] [address] [address] [address] Tyree Botello WBC 12.0 103/ul Critically high 4.0-11.0 [facility] Comment on above: Performed By: #### M G, RENAL, URIC #### [facility] [address] [address] [address] Tyree Botello DEPAKENE/VALPROICon 08-31-19 22 DEPAKENE 53.3 ug/ml Normal 50.0-100.0 [facility] Comment on above: Performed By: #### M G, RENAL, URIC #### [facility] [address] [address] [address] Tyree Botello LIPID PROFILEon 08-30-2021 CHOL-HDL RATIO NORM SEE BELOW Normal [facility] Comment on above: Result Comment: 3.3 - 4.4 LOW RISK 4.4 - 7.1 AVERAGE RISK 7.1 - 11.0 MODERATE RISK >11.0 HIGH RISK Performed By: #### M G, RENAL, URIC #### [facility] [address] [address] [address] Tyree Botello Cholesterol [Mass/Vol] 160 mg/dL Normal <=200 [facility] Comment on above: Performed By: #### M G, RENAL, URIC #### [facility] [address] [address] [address] Tyree Botello Cholesterol in HDL [Mass/Vol] 43 mg/dL Normal 40-60 [facility] Comment on above: Performed By: #### M G, RENAL, URIC #### [facility] [address] [address] [address] Tyree Botello Cholesterol in LDL [Mass/Vol] 76.0 mg/dL Normal [facility] Comment on above: Performed By: #### M G, RENAL, URIC #### [facility] [address] [address] [address] Tyree Botello Cholesterol.total/Choles terol in HDL [Mass ratio] 3.7 {ratio} Normal [facility] Comment on above: Performed By: #### M G, RENAL, URIC #### [facility] [address] [address] [address] Tyree Botello HDL NORMAL > or = 60 mg/dl - LO W CARDIOVASCULAR RISK <40 mg/dl - HIGH CARDIOVASCULAR RISK Normal [facility] Comment on above: Performed By: #### M G, RENAL, URIC #### [facility] [address] [address] [address] Tyree Botello LDL CALC NORMAL SEE BELOW Normal [facility] Comment on above: Result Comment: <100 mg/dl OPTIMAL 100 - 129 mg/dl NEAR OR ABOVE OPTIMAL 130 - 159 mg/dl BORDERLINE HIGH 160 - 189 mg/dl HIGH >190 mg/dl VERY HIGH Performed By: #### M G, RENAL, URIC #### [facility] [address] [address] [address] Tyree Botello Triglyceride [Mass/Vol] 205 mg/dL Critically high <=[address] [facility] Comment on above: Performed By: #### M G, RENAL, URIC #### [facility] [address] [address] [address] Tyree Botello VLDL CALC 41.0 mg/dL Normal [facility] Comment on above: Performed By: #### M G, RENAL, URIC #### [facility] [address] [address] [address] Tyree Botello LIVER PROFILEon 08-30-2021 Albumin [Mass/Vol] 3.0 g/dL Critically low 3.4-5.0 [facility] Comment on above: Performed By: #### M G, RENAL, URIC #### [facility] [address] [address] [address] Tyree Botello Albumin/Globulin [Mass ratio] 0.8 {ratio} Normal [facility] Comment on above: Performed By: #### M G, RENAL, URIC #### [facility] [address] [address] [address] Tyree Botello ALP [Catalytic activity/Vol] 63 U/L Normal 46-116 [facility] Comment on above: Performed By: #### M G, RENAL, URIC #### [facility] [address] [address] [address] Tyree Botello ALT [Catalytic activity/Vol] 49 U/L Normal 14-59 [facility] Comment on above: Performed By: #### M G, RENAL, URIC #### [facility] [address] [address] [address] Tyree Botello AST [Catalytic activity/Vol] 23 U/L Normal 15-37 [facility] Comment on above: Performed By: #### M G, RENAL, URIC #### [facility] [address] [address] [address] Tyree Botello BILI, CONJUGATED 0.1 mg/dL Normal 0.0-0.2 [facility] Comment on above: Performed By: #### M G, RENAL, URIC #### [facility] [address] [address] [address] Tyree Botello Bilirubin [Mass/Vol] 0.4 mg/dL Normal 0.2-1.0 [facility] Comment on above: Performed By: #### M G, RENAL, URIC #### [facility] [address] [address] [address] Tyree Botello Globulin (S) [Mass/Vol] 3.7 g/dL Normal [facility] Comment on above: Performed By: #### M G, RENAL, URIC #### [facility] [address] [place], [place] [address] Dr. Tyree Botello Protein [Mass/Vol] 6.7 g/dL Normal 6.4-8.[address] [facility] Comment on above: Performed By: #### M G, RENAL, URIC #### [facility] [address] [place], [place] [address] Dr. Tyree Botello Complete Blood Count with Au to Diffon 07-17-2021 BASOABS 97 cells/uL Normal 0-200 [facility] Comment on above: Order Comment: [facility] performed at: [employer] [facility], [address] [place] [address], [address] [place] [address], [address] [place] [address], Financial Assistant: Senthil Ramsey MD [facility] Date/Time: [facility] Results Received Date/Time: [facility] Reported Date/Time: FASTING: UNKNOWN Performed By: #### L IPD, CMP, TSH, CBCAD #### [facility] [address] [place] [address] Basophils/100 WBC (Bld) 0.9 % Normal N [facility] Comment on above: Order Comment: [facility] performed at: [employer] [facility], [address] [place] [address], [address] [place] [address], [address] [place] [address], Financial Assistant: Senthil Ramsey MD [facility] Date/Time: [facility] Results Received Date/Time: [facility] Reported Date/Time: FASTING: UNKNOWN Performed By: #### L IPD, CMP, TSH, CBCAD #### [facility] [address] [place] [address] EOSABS 97 cells/uL Normal 15-500 [facility] Comment on above: Order Comment: [facility] performed at: [employer] [facility], [address] [place] [address], [address] [place] [address], [address] [place] [address], Financial Assistant: Senthil Ramsey MD [facility] Date/Time: [facility] Results Received Date/Time: [facility] Reported Date/Time: FASTING: UNKNOWN Performed By: #### L IPD, CMP, TSH, CBCAD #### [facility] Default [address] [place] [address] Eosinophils/100 WBC (Bld) 0.9 % Normal [facility] [employer] Comment on above: Order Comment: [facility] performed at: [employer] [facility], [address] [place] [address], [address] [place] [address], [address] [place] [address], Financial Assistant: Senthil Ramsey MD [facility] Date/Time: [facility] Results Received Date/Time: [facility] Reported Date/Time: FASTING: UNKNOWN Performed By: #### L IPD, CMP, TSH, CBCAD #### [facility] Default [address] [place] [address] Erythrocyte distribution width (RBC) [Ratio] 13.6 % Normal 11.0-15.0 [facility] Manager Relocation Comment on above: Order Comment: [facility] Testing performed at: [facility], [address] [place] [address], [address] [place] [address], [address] [place] [address], Financial Assistant: Senthil Ramsey MD [facility] Collection Date/Time: [facility] Results Received Date/Time: [facility] Reported Date/Time: FASTING: UNKNOWN Performed By: #### L IPD, CMP, TSH, CBCAD #### [facility] Default [address] [place] [address] Hematocrit (Bld) [Volume fraction] 48.3 % High 35.0-45.0 [facility] Manager Relocation Comment on above: Order Comment: [facility] Testing performed at: [facility] [employer] [facility], [address] [place] [address], [address] [place] [address], [address] [place] [address], Financial Assistant: Senthil Ramsey MD [facility] Collection Date/Time: [facility] Results Received Date/Time: [facility] Reported Date/Time: FASTING: UNKNOWN Performed By: #### L IPD, CMP, TSH, CBCAD #### [facility] Default [address] [place] [address] Hemoglobin (Bld) [Mass/Vol] 16.7 g/dL High 11.7-15.5 [facility] Specialist Comment on above: Order Comment: [facility] Testing performed at: [facility] [employer] [facility], [address] [place] [address], [address] [place] [address], [address] [place] [address], Financial Assistant: Senthil Ramsey MD [facility] Collection Date/Time: [facility] Results Received Date/Time: [facility] Reported Date/Time: FASTING: UNKNOWN Performed By: #### L IPD, CMP, TSH, CBCAD #### [facility] Default [address] [place] [address] Lymphocytes (Bld) [#/Vol] 4.428 10*3/uL High 850-3900 [facility] Manager Relocation Comment on above: Order Comment: [facility] Testing performed at: [facility] [employer] [facility], [address] [place] [address], [address] [place] [address], [address] [place] [address], Financial Assistant: Senthil Ramsey MD [facility] Collection Date/Time: [facility] Results Received Date/Time: [facility] Reported Date/Time: FASTING: UNKNOWN Performed By: #### L IPD, CMP, TSH, CBCAD #### [facility] Default [address] [place] [address] Lymphocytes/100 WBC (Bld) 41.0 % Normal [facility] Manager Relocation Comment on above: Order Comment: [facility] Testing performed at: [facility], [address] [place] [address], [address] [place] [address], [address] [place] [address], Financial Assistant: Senthil Ramsey MD [facility] Date/Time: [facility] Results Received Date/Time: [facility] Reported Date/Time: FASTING: UNKNOWN Performed By: #### L IPD, CMP, TSH, CBCAD #### [facility] Default [address] [place] [address] MCH (RBC) [Entitic mass] 31.0 pg Normal 27.0-33.0 [facility] Specialist Comment on above: Order Comment: [facility] Testing performed at: [facility] [employer] [facility], [address] [place] [address], [address] [place] [address], [address] [place] [address], Financial Assistant: Senthil Ramsey MD [facility] Date/Time: [facility] Results Received Date/Time: [facility] Reported Date/Time: FASTING: UNKNOWN Performed By: #### L IPD, CMP, TSH, CBCAD #### [facility] Default [address] [place] [address] MCHC (RBC) [Mass/Vol] 34.6 g/dL Normal 32.0-36.0 [facility] Comment on above: Order Comment: [facility] Testing performed at: [facility] [employer] [facility], [address] [place] [address], [address] [place] [address], [address] [place] [address], Financial Assistant: Senthil Ramsey MD [facility] Date/Time: [facility] Results Received Date/Time: [facility] Reported Date/Time: FASTING: UNKNOWN Performed By: #### L IPD, CMP, TSH, CBCAD #### [facility] Default [address] [place] [address] MCV (RBC) [Entitic vol] 89.6 fL Normal 80.0-100.0 [facility] Comment on above: Order Comment: [facility] Testing performed at: [facility], [address] [place] [address], [address] [place] [address], [address] [place] [address], Financial Assistant: Senthil Ramsey MD [facility] Date/Time: [facility] Results Received Date/Time: [facility] Reported Date/Time: FASTING: UNKNOWN Performed By: #### L IPD, CMP, TSH, CBCAD #### [facility] Default [address] [place] [address] MONOABS 605 cells/uL Normal 200-950 [facility] Manager Relocation Comment on above: Order Comment: [facility] Testing performed at: [facility], [address] , [address] [place] [address], [address] [place] [address], Financial Assistant: Senthil Ramsey MD [facility] Date/Time: [facility] Results Received Date/Time: [facility] Reported Date/Time: FASTING: UNKNOWN Performed By: #### L IPD, CMP, TSH, CBCAD #### [facility] Default [address] [place] [address] Monocytes/100 WBC (Bld) 5.6 % Normal N [facility] Comment on above: Order Comment: [facility] Testing performed at: [facility] [employer] [facility], [address] [facility], [address] [place] [address], [address] [place] [address], Financial Assistant: Senthil Ramsey MD [facility] Collection Date/Time: [facility] Results Received Date/Time: [facility] Reported Date/Time: FASTING: UNKNOWN Performed By: #### L IPD, CMP, TSH, CBCAD #### [facility] Default [address] [place] [address] Neutrophils (Bld) [#/Vol] 5.573 10*3/uL Normal 2755-4275 [facility] Comment on above: Order Comment: [facility] Testing performed at: [facility] [employer] [facility], [address] [facility], [address] [place] [address], [address] [place] [address], Financial Assistant: Senthil Ramsey MD [facility] Collection Date/Time: [facility] Results Received Date/Time: [facility] Reported Date/Time: FASTING: UNKNOWN Performed By: #### L IPD, CMP, TSH, CBCAD #### [facility] Default [address] [place] [address] Neutrophils/100 WBC (Bld) 51.6 % Normal [facility] Comment on above: Order Comment: [facility] Testing performed at: [facility] [employer] [facility], [address] , [address] [place] [address], [address] [place] [address], Financial Assistant: Senthil Ramsye MD [facility] Date/Time: [facility] Results Received Date/Time: [facility] Reported Date/Time: FASTING: UNKNOWN Performed By: #### L IPD, CMP, TSH, CBCAD #### [facility] Default [address] [place] [address] Platelet mean volume (Bld) [Entitic vol] 11.4 fL Normal 7.5-12.5 [facility] Manager Relocation Comment on above: Order Comment: [facility] Testing performed at: [facility] [employer] [facility], [address] [place] [address], [address] [place] [address], [address] [place] [address], Financial Assistant: Senthil Ramsey MD [facility] Date/Time: [facility] Results Received Date/Time: [facility] Reported Date/Time: FASTING: UNKNOWN Performed By: #### L IPD, CMP, TSH, CBCAD #### [facility] Default [address] [place] [address] Platelets (Bld) [#/Vol] 239 10*3/uL Normal 140-400 [facility] Manager Relocation Comment on above: Order Comment: [facility] Testing performed at: [facility], [address] [place] [address], [address] [place] [address], [address] [place] [address], Financial Assistant: Senthil Ramsey MD [facility] Date/Time: [facility] Results Received Date/Time: [facility] Reported Date/Time: FASTING: UNKNOWN Performed By: #### L IPD, CMP, TSH, CBCAD #### [facility] Default [address] [place] [address] RBC (Bld) [#/Vol] 5.39 10*6/uL High 3.80-5.10 [facility] Specialist Comment on above: Order Comment: [facility] Testing performed at: [employer] [employer] [facility], [address] [place] [address], [address] [place] [address], [address] [place] [address], Financial Assistant: Senthil Ramsey MD [facility] Date/Time: [facility] Results Received Date/Time: [facility] Reported Date/Time: FASTING: UNKNOWN Performed By: #### L IPD, CMP, TSH, CBCAD #### [facility] Default [address] [place] [address] WBC (Bld) [#/Vol] 10.8 10*3/uL Normal 3.8-10.8 [facility] Comment on above: Order Comment: [facility] Testing performed at: [facility] [employer] [facility], [address] [place] [address], [address] [place] [address], [address] [place] [address], Financial Assistant: Senthil Ramsey MD [facility] Date/Time: [facility] Results Received Date/Time: [facility] Reported Date/Time: FASTING: UNKNOWN Performed By: #### L IPD, CMP, TSH, CBCAD #### [facility] Default [address] [place] [address] Comprehensive Metabolic Pane [facility] 07-17-2021 Albumin [Mass/Vol] 4.2 g/dL Normal 3.6-5.1 [facility] Comment on above: Order Comment: [facility] Testing performed at: [facility] [employer] [facility], [address] [place] [address], [address] [place] [address], [address] [place] [address], Financial Assistant: Senthil Ramsey MD [facility] Collection Date/Time: [facility] Results Received Date/Time: [facility] Reported Date/Time: FASTING: UNKNOWN Performed By: #### L IPD, CMP, TSH, CBCAD #### [facility] Default [address] [place] [id number] Albumin/Globulin [Mass ratio] 1.4 {ratio} Normal 1.0-2.5 [facility] Comment on above: Order Comment: [facility] Testing performed at: [employer] [employer] [facility], [address] [place] [address], [address] [place] [address], [address] [place] [address], Financial Assistant: Senthil Ramsey MD [facility] Date/Time: [facility] Results Received Date/Time: [facility] Reported Date/Time: FASTING: UNKNOWN Performed By: #### L IPD, CMP, TSH, CBCAD #### [facility] Default [address] [place] [address] ALP [Catalytic activity/Vol] 65 U/L Normal 31-125 [facility] Specialist Comment on above: Order Comment: [facility] Testing performed at: [facility] [employer] [facility], [address] [place] [address], [address] [place] [address], [address] [place] [address], Financial Assistant: Senthil Ramsey MD [facility] Collection Date/Time: [facility] Results Received Date/Time: [facility] Reported Date/Time: FASTING: UNKNOWN Performed By: #### L IPD, CMP, TSH, CBCAD #### [facility] Default [address] [place] [address] ALT [Catalytic activity/Vol] 30 U/L High 6-29 [facility] Specialist Comment on above: Order Comment: [facility] Testing performed at: [employer] [employer] [facility], [address] [place] [address], [address] [place] [address], [address] [place] [address], Financial Assistant: Senthil Ramsey MD [facility] Collection Date/Time: [facility] Results Received Date/Time: [facility] Reported Date/Time: FASTING: UNKNOWN Performed By: #### L IPD, CMP, TSH, CBCAD #### [facility] Default [address] [place] [address] Anion gap [Moles/Vol] 20 mmol/L Normal 12-20 [facility] Comment on above: Order Comment: [facility] Testing performed at: [employer] [employer] [facility], [address] [place] [address], [address] [place] [address], [address] [place] [address], Financial Assistant: Senthil Ramsey MD [facility] Collection Date/Time: [facility] Results Received Date/Time: [facility] Reported Date/Time: FASTING: UNKNOWN Result Comment: Effe ctive 03/16/2019 reference range changed. Performed By: #### L IPD, CMP, TSH, CBCAD #### [facility] Default [address] [place] [address] AST [Catalytic activity/Vol] 15 U/L Normal 10-35 [facility] Specialist Comment on above: Order Comment: [facility] Testing performed at: [facility] [employer] [facility], [address] [place] [address], [address] [place] [address], [address] [place] [address], Financial Assistant: Senthil Ramsey MD [facility] Collection Date/Time: [facility] Results Received Date/Time: [facility] Reported Date/Time: FASTING: UNKNOWN Performed By: #### L IPD, CMP, TSH, CBCAD #### [facility] Default [address] [place] [address] Bilirubin [Mass/Vol] 0.4 mg/dL Normal 0.2-1.2 [facility] Specialist Comment on above: Order Comment: [facility] Testing performed at: [facility] [employer] [facility], [address] [place] [address], [address] [place] [address], [address] [place] [address], Financial Assistant: Senthil Ramsey MD [facility] Collection Date/Time: [facility] Results Received Date/Time: [facility] Reported Date/Time: FASTING: UNKNOWN Performed By: #### L IPD, CMP, TSH, CBCAD #### [facility] Default [address] [place] [address] BUN/CREA 24 NOT APPLICABLE Normal 6-22 [facility] Manager Relocation Comment on above: Order Comment: [facility] Testing performed at: [facility], [address] [place] [address], [address] [place] [address], [address] [place] [address], Financial Assistant: Senthil Ramsey MD [facility] Collection Date/Time: [facility] Results Received Date/Time: [facility] Reported Date/Time: FASTING: UNKNOWN Performed By: #### L IPD, CMP, TSH, CBCAD #### [facility] Default [address] [place] [address] Calcium [Mass/Vol] 10.2 mg/dL Normal 8.6-10.2 [facility] Specialist Comment on above: Order Comment: [facility] Testing performed at: [employer] [employer] [facility], [address] [facility], [address] [place] [address], [address] [place] [address], Financial Assistant: Senthil Ramsey MD [facility] Date/Time: [facility] Results Received Date/Time: [facility] Reported Date/Time: FASTING: UNKNOWN Performed By: #### L IPD, CMP, TSH, CBCAD #### [facility] Default [address] [place] [address] Chloride [Moles/Vol] 103 mmol/L Normal 98-110 [facility] Specialist Comment on above: Order Comment: [facility] Testing performed at: [facility] [employer] [facility], [address] [place] [address], [address] [place] [address], [address] [place] [address], Financial Assistant: Senthil Ramsey MD [facility] Date/Time: [facility] Results Received Date/Time: [facility] Reported Date/Time: FASTING: UNKNOWN Performed By: #### L IPD, CMP, TSH, CBCAD #### [facility] Default [address] [place] [address] CO2 [Moles/Vol] 22 mmol/L Normal 20-32 [facility] Comment on above: Order Comment: [facility] Testing performed at: [facility] [employer] [facility], [address] [place] [address], [address] [place] [address], [address] [place] [address], Financial Assistant: Senthil Ramsey MD [facility] Collection Date/Time: [facility] Results Received Date/Time: [facility] Reported Date/Time: FASTING: UNKNOWN Performed By: #### L IPD, CMP, TSH, CBCAD #### [facility] Default [address] [place] [address] Creatinine [Mass/Vol] 0.75 mg/dL Normal 0.50-1.10 [facility] Specialist Comment on above: Order Comment: [facility] Testing performed at: [employer] [employer] [facility], [address] [facility], [address] [place] [address], [address] [place] [address], Financial Assistant: Senthil Ramsey MD [facility] Collection Date/Time: [facility] Results Received Date/Time: [facility] Reported Date/Time: FASTING: UNKNOWN Performed By: #### L IPD, CMP, TSH, CBCAD #### [facility] Default [address] [place] [address] eGFRAA ([facility]) 108 mL/min/1.73m2 Normal > OR = 60 Nor [facility] Manager Relocation Comment on above: Order Comment: [facility] Testing performed at: [employer] [employer] [facility], [address] [place] [address], [address] [place] [address], [address] [place] [address], Financial Assistant: Senthil Ramsey MD [facility] Collection Date/Time: [facility] Results Received Date/Time: [facility] Reported Date/Time: FASTING: UNKNOWN Performed By: #### L IPD, CMP, TSH, CBCAD #### [facility] Default [address] [place] [address] eGFRNAA ([facility]) 94 mL/min/1.73m2 Normal > OR = 60 Nor [facility] Manager Relocation Comment on above: Order Comment: [facility] Testing performed at: [facility], [address] [place] [address], [address] [place] [address], [address] [place] [address], Financial Assistant: Senthil Ramsey MD [facility] Collection Date/Time: [facility] Results Received Date/Time: [facility] Reported Date/Time: FASTING: UNKNOWN Performed By: #### L IPD, CMP, TSH, CBCAD #### [facility] Default [address] [place] [address] Globulin (S) [Mass/Vol] 3.0 g/dL Normal 1.9-3.7 N [facility] Manager Relocation Comment on above: Order Comment: [facility] Testing performed at: [employer] [employer] [facility], [address] [place] [address], [address] [place] [address], [address] [place] [address], Financial Assistant: Senthil Ramsey MD [facility] Collection Date/Time: [facility] Results Received Date/Time: [facility] Reported Date/Time: FASTING: UNKNOWN Performed By: #### L IPD, CMP, TSH, CBCAD #### [facility] Default [address] [place] [address] Glucose [Mass/Vol] 132 mg/dL High 65-99 Latrell sanches [place] Manager Relocation Comment on above: Order Comment: [facility] Testing performed at: [employer] [employer] [facility], [address] [place] [address], [address] [place] [address], [address] [place] [address], Financial Assistant: Senthil Ramsey MD [facility] Collection Date/Time: [facility] Results Received Date/Time: [facility] Reported Date/Time: FASTING: UNKNOWN Result Comment: Fasting reference interval For someone without known diabetes, a glucose value >125 mg/dL indicates that they may have diabetes and this should be confirmed with a follow-up test. Performed By: #### L IPD, CMP, TSH, CBCAD #### [facility] Default [address] [place] [address] Potassium [Moles/Vol] 3.9 mmol/L Normal 3.5-5.3 Ruthy cha [place] Manager Relocation Comment on above: Order Comment: [facility] Testing performed at: [facility], [address] [place] [address], [address] [place] [address], [address] [place] [address], Financial Assistant: Senthil Ramsey MD [facility] Date/Time: [facility] Results Received Date/Time: [facility] Reported Date/Time: FASTING: UNKNOWN Performed By: #### L IPD, CMP, TSH, CBCAD #### [facility] Default [address] [place] [address] Protein [Mass/Vol] 7.2 g/dL Normal 6.1-8.1 Latrell sanches [place] Manager Relocation Comment on above: Order Comment: [facility] Testing performed at: [employer] [employer] [facility], [address] [place] [address], [address] [place] [address], [address] [place] [address], Financial Assistant: Senthil Ramsey MD [facility] Collection Date/Time: [facility] Results Received Date/Time: [facility] Reported Date/Time: FASTING: UNKNOWN Performed By: #### L IPD, CMP, TSH, CBCAD #### [facility] Default [address] [place] [address] Sodium [Moles/Vol] 141 mmol/L Normal 135-146 [facility] Specialist Comment on above: Order Comment: [facility] Testing performed at: [facility], [address] [facility], [address] [place] [address], [id number], Financial Assistant: Senthil Ramsey MD [facility] Date/Time: [facility] Results Received Date/Time: [facility] Reported Date/Time: FASTING: UNKNOWN Performed By: #### L IPD, CMP, TSH, CBCAD #### [facility] Default [address] [place] [address] Urea nitrogen [Mass/Vol] 18 mg/dL Normal 7-25 [facility] Specialist Comment on above: Order Comment: [facility] Testing performed at: [facility], [address] [place] [address], [address] [place] [address], [id number], Financial Assistant: Senthil Ramsey MD [facility] Date/Time: [facility] Results Received Date/Time: [facility] Reported Date/Time: FASTING: UNKNOWN Performed By: #### L IPD, CMP, TSH, CBCAD #### [facility] Default [address] [place] [address] Lipid Panelon 07-17-2021 Cholesterol [Mass/Vol] 306 mg/dL High <200 No rthern [place] Manager Relocation Comment on above: Order Comment: [facility] Testing performed at: [facility], [address] [facility], [address] [place] [address], [phone], Financial Assistant: Senthil Ramsey MD [facility] Date/Time: [facility] Results Received Date/Time: [facility] Reported Date/Time: FASTING: UNKNOWN Performed By: #### L IPD, CMP, TSH, CBCAD #### [facility] Default [address] [place] [address] Cholesterol in HDL [Mass/Vol] 49 mg/dL Low > OR = 50 [facility] Manager Relocation Comment on above: Order Comment: [facility] performed at: [employer] [employer] [facility], [address] [facility], [address] [place] [address], [address] [place] [address], Financial Assistant: Senthil Ramsey MD [facility] Date/Time: [facility] Results Received Date/Time: [facility] Reported Date/Time: FASTING: UNKNOWN Performed By: #### L IPD, CMP, TSH, CBCAD #### [facility] Default [address] [place] [address] LDLD SEE NOTE Normal [facility] Manager Relocation Comment on above: Order Comment: [facility] performed at: [employer] [employer] [facility], [address] [facility], [address] [place] [address], [phone], Financial Assistant: Senthil Ramsey MD [facility] Date/Time: [...] factors. LDL-C is now calculated using the Nabil-Wilian calculation, which is a validated novel method providing better accuracy than the Friedewald equation in the estimation of LDL-C. Nabil RICO et al. CHRISTIN. 2013;310(19): 5456-8820 (http://education.[employer] Geo/faq/LDM410) Performed By: #### L IPD, CMP, TSH, CBCAD #### [facility] Default [address] [place] [address] NON HDL CHOLESTEROL 257 mg/dL (calc) High <130 [facility] Manager Relocation Comment on above: Order Comment: [facility] performed at: [facility], [address] , [address] [place] [address], [phone], Financial Assistant: Senthil Ramsey MD [facility] Date/Time: [...] TSH, CBCAD #### [facility] Default [address] [place] [address] Triglyceride [Mass/Vol] 403 mg/dL High <150 N [facility] Comment on above: Order Comment: [facility] Testing performed at: [facility], [address] , [address] [place] [address], [id number], Financial Assistant: Senthil Rmasey MD [facility] Date/Time: [facility] Results Received Date/Time: [facility] Reported Date/Time: FASTING: UNKNOWN Result Comment: If a non-fasting specimen was collected, consider repeat triglyceride testing on a fasting specimen if clinically indicated. Leonie et al. J. of Clin. Lipidol. 2015;9:129-169. Performed By: #### L IPD, CMP, TSH, CBCAD #### [facility] [address] [place] [address] TSHon 07-17-2021 TSH Qn 0.95 m[IU]/L Normal [facility] Comment on above: Order Comment: [facility] performed at: [facility], [address] , [address] [place] [address], [id number], Financial Assistant: Senthil Ramsey MD [facility] Date/Time: [facility] Results Received Date/Time: [id number] [facility] Reported Date/Time: [id number] FASTING: UNKNOWN Result Comment: Refe rence Range > or = 20 Years 0.40-4.50 Ranges First trimester 0.26-2.66 Second trimester 0.55-2.73 Third trimester 0.43-2.91 Performed By: #### L IPD, CMP, TSH, CBCAD #### [facility] Default [address] [place] [address] XR Spine Lumbar Complete w/F levi AND [place] 05-25-2021 XR Spine Lumbar Complete w/Flex AND [...] by Rich Soriano on 05/26/2021 0756 Normal [facility] - Hematology and Cell countson 07-22-2020 Nucleated RBC/100 WBC (Bld) [Ratio] 0.2 % 0-0.5 [facility] Vital Signs Date Time Vital Sign Value Performing Clinician Facility 06-12-2023 10:56-0400 Body mass index (BMI) [Ratio] 33.81 kg/m2 CloudJayff PA-C Work Phone: [employer] [facility] 06-12-2023 10:56-0400 Body weight 89.36 kg CloudJayff PA-C Work Phone: [employer] 06-12-2023 10:56-0400 Diastolic blood pressure 75 mm[Hg] Live TMJ Healthhoff PA-C Work Phone: [employer] [facility] 06-12-2023 10:56-0400 Heart rate 90 /min Live Baobab Planetff PA-C Work Phone: [facility] 06-12-2023 10:56-0400 Respiratory rate 18 /min Live Verhoff PA-C Work Phone: [facility] 06-12-2023 10:56-0400 SaO2% (BldA) [Mass fraction] 97 % Live Verhoff PA-C Work Phone: [facility] 06-12-2023 10:56-0400 Systolic blood pressure 152 mm[Hg] Live Verhoff PA-C Work Phone: [facility] 04-25-2023 14:26-0500 Body height 165.1 cm [facility] 04-25-2023 14:26-0500 Body mass index (BMI) [Ratio] 34 kg/m2 [facility] 04-25-2023 14:26-0500 Body temperature 97.2 [degF] [facility] 04-25-2023 14:26-0500 Body weight 92.7 kg [facility] 04-25-2023 14:26-0500 Diastolic blood pressure 70 mm[Hg] [facility] 04-25-2023 14:26-0500 Heart rate 102 /min [facility] 04-25-2023 14:26-0500 Respiratory rate 16 /min [facility] 04-25-2023 14:26-0500 SaO2% (BldA) [Mass fraction] 97 % [facility] 04-25-2023 14:26-0500 Systolic blood pressure 139 mm[Hg] [facility] 04-11-2023 14:14-0500 Body height 165.1 cm Eliazar Pires DPM Work Phone: [facility] 04-11-2023 14:14-0500 Body mass index (BMI) [Ratio] 33.45 kg/m2 Eliazar Pires DPM Work Phone: [facility] 04-11-2023 14:14-0500 Body weight 91.17 kg Eliazar Pires DPM Work Phone: [facility] 04-11-2023 14:14-0500 Diastolic blood pressure 80 mm[Hg] Eliazar Pires DPM Work Phone: [facility] 04-11-2023 14:14-0500 Heart rate 82 /min Eliazar Pires DPM Work Phone: [facility] 04-11-2023 14:14-0500 Systolic blood pressure 130 mm[Hg] Eliazar Filiberto DPM Work Phone: [facility] 03-15-2023 12:54-0500 Body height 162.6 cm Dennis Foster MD [facility] 03-15-2023 12:54-0500 Body mass index (BMI) [Ratio] 35.7 kg/m2 Dennis Foster MD [facility] 03-15-2023 12:54-0500 Body weight 94.35 kg Dennis Foster MD Work Phone: [facility] [employer] 03-15-2023 12:54-0500 Diastolic blood pressure 80 mm[Hg] Dennis Foster MD [facility] 03-15-2023 12:54-0500 Heart rate 81 /min Dennis Foster MD Work Phone: [facility] [employer] 03-15-2023 12:54-0500 SaO2% (BldA) [Mass fraction] 98 % Dennis Foster MD Work Phone: [facility] 03-15-2023 12:54-0500 Systolic blood pressure 140 mm[Hg] Dennis Foster MD Work Phone: [employer] 10-18-2022 15:00-0400 Body height 165.1 cm Nir Danis Other [employer] Other 10-18-2022 15:00-0400 Body mass index (BMI) [Ratio] 33.08 kg/m2 Nir Danis Other [employer] Other 10-18-2022 15:00-0400 Body temperature 97.1 [degF] Nir Danis Other [employer] Other 10-18-2022 15:00-0400 Body weight 90.18 kg Nir Danis Other [employer] Other 10-18-2022 15:00-0400 Diastolic blood pressure 98 mm[Hg] Nir Danis Other [employer] Other 10-18-2022 15:00-0400 Respiratory rate 18 /min Nir Danis Other [employer] Other 10-18-2022 15:00-0400 SaO2% (BldA) [Mass fraction] 98 % Nir Danis Other [employer] Other 10-18-2022 15:00-0400 Systolic blood pressure 167 mm[Hg] Nir Danis Other [employer] Other 07-12-2022 14:00-0400 Diastolic blood pressure 94 mm[Hg] MD Kala Lloyd Work Phone: [facility] 07-12-2022 14:00-0400 Heart rate 86 /min MD Kala Lloyd Work Phone: [facility] 07-12-2022 14:00-0400 Respiratory rate 16 /min MD Kala Lloyd Work Phone: [facility] 07-12-2022 14:00-0400 SaO2% (BldA) [Mass fraction] 99 % MD Kala Lloyd Work Phone: [facility] 07-12-2022 14:00-0400 Systolic blood pressure 165 mm[Hg] MD Kala Lloyd Work Phone: [facility] 07-12-2022 11:44-0400 Body height 162.56 cm MD Kala Lloyd Work Phone: [facility] 07-12-2022 11:44-0400 Body temperature 98.6 [degF] MD Kala Lloyd Work Phone: [facility] 07-12-2022 11:44-0400 Body weight 94.34 kg MD Kala Lloyd Work Phone: [facility] 06-04-2022 14:15-0400 Body height 165.1 cm Imad Asaad Other [facility] [employer] Other 06-04-2022 14:15-0400 Body mass index (BMI) [Ratio] 32.95 kg/m2 Imad Asaad Other [employer] Other 06-04-2022 14:15-0400 Body weight 89.81 kg Imad Asaad Other [employer] Other 06-04-2022 14:15-0400 Diastolic blood pressure 90 mm[Hg] Imad Asaad Other [employer] Other 06-04-2022 14:15-0400 Systolic blood pressure 145 mm[Hg] Imad Asaad Other [employer] Other 05-18-2022 11:46-0500 Body temperature 97.8 [degF] MD Kala Lloyd Work Phone: [facility] 05-18-2022 11:46-0500 Body weight 89.4 kg MD Kala Lloyd Work Phone: [facility] 05-18-2022 11:46-0500 Diastolic blood pressure 86 mm[Hg] MD Kala Lloyd Work Phone: [facility] 05-18-2022 11:46-0500 Heart rate 94 /min MD Kala Lloyd Work Phone: [facility] 05-18-2022 11:46-0500 Respiratory rate 16 /min MD Kala Lloyd Work Phone: [facility] 05-18-2022 11:46-0500 SaO2% (BldA) [Mass fraction] 98 % MD Kala Lloyd Work Phone: [facility] 05-18-2022 11:46-0500 Systolic blood pressure 149 mm[Hg] MD Kala Lloyd Work Phone: [facility] 04-12-2022 12:40-0500 Body height 165.1 cm Nir Danis Other [employer] Other 04-12-2022 12:40-0500 Body mass index (BMI) [Ratio] 32.85 kg/m2 Nir Danis Other [employer] Other 04-12-2022 12:40-0500 Body temperature 96.7 [degF] Nir Danis Other [employer] Other 04-12-2022 12:40-0500 Body weight 89.54 kg Nir Danis Other [employer] Other 04-12-2022 12:40-0500 Diastolic blood pressure 84 mm[Hg] Nir Danis Other [employer] Other 04-12-2022 12:40-0500 Respiratory rate 18 /min Nir Danis Other [employer] Other 04-12-2022 12:40-0500 SaO2% (BldA) [Mass fraction] 97 % Nir Danis Other [employer] Other 04-12-2022 12:40-0500 Systolic blood pressure 139 mm[Hg] Nir Danis Other [employer] Other 09-14-2021 13:00-0400 Body height 165.1 cm Nir Danis Other [employer] Other 09-14-2021 13:00-0400 Body mass index (BMI) [Ratio] 34.44 kg/m2 Nir Danis Other [employer] Other 09-14-2021 13:00-0400 Body temperature 96.6 [degF] Nir Danis Other [employer] Other 09-14-2021 13:00-0400 Body weight 93.9 kg Nir Danis Other [employer] Other 09-14-2021 13:00-0400 Diastolic blood pressure 80 mm[Hg] Nir Danis Other [employer] Other 09-14-2021 13:00-0400 Respiratory rate 18 /min Nir Danis Other [employer] Other 09-14-2021 13:00-0400 SaO2% (BldA) [Mass fraction] 97 % Nir Danis Other [employer] Other 09-14-2021 13:00-0400 Systolic blood pressure 132 mm[Hg] Nir Danis Other [employer] Other 04-22-2020 14:49-0500 Body height 165.1 cm MD Kala Lloyd Work Phone: [facility] Encounters Encounter Date Encounter Type Care Provider Facility Start: 09-03-2023 End: 09-03-2023 ambulatory LINDY VALENTINO Not Available Start: 08-29-2023 End: 08-29-2023 ambulatory ELIAZAR PIRES Not Available Start: 08-23-2023 End: 08-23-2023 [facility] Start: 08-12-2023 End: 08-12-2023 ambulatory LINDY VALENTINO Not Available Start: 08-10-2023 End: 08-10-2023 ambulatory JOB Joe MARY BETH [facility] Start: 08-09-2023 End: 08-09-2023 ambulatory REYMUNDO GIRON [facility] Start: 07-24-2023 End: 07-24-2023 ambulatory LINDY VALENTINO Not Available Start: 07-02-2023 End: 07-02-2023 ambulatory LAVERNE PORTER Not Available Start: 07-01-2023 End: 07-01-2023 ambulatory KALA LLOYD Not Available Start: 06-28-2023 End: 06-28-2023 ambulatory REYMUNDO GIRON [facility] Start: 06-21-2023 End: 06-21-2023 Emergency department patient visit KAYLIE Spangler [facility] Start: 06-20-2023 End: 06-20-2023 ambulatory ELIAZAR PIRES Not Available Start: 06-12-2023 End: 06-12-2023 Office outpatient visit 25 minutes Live Monk PA-C Work Phone: [facility] Comment on above: Lumbar spondylosis ( Primary Dx) Start: 06-12-2023 End: 06-12-2023 ambulatory LIVE MONK [facility] Start: 05-18-2023 End: 05-18-[address] BARBOUR [facility] Start: 05-17-2023 End: 05-17-2023 ambulatory REYMUNDO GIRON [facility] Start: 04-26-2023 Telephone encounter Gabriella Wong RN [facility] Comment on above: Surgical Or Dental C learance Start: 04-25-2023 End: 04-25-2023 ambulatory [facility] Work Phone: Start: 04-25-2023 End: 04-25-2023 Patient encounter procedure [facility] Jean Work Phone: Start: 04-22-2023 End: 04-22-2023 ambulatory KAYLIE CHAVEZ Not Available Start: 04-16-2023 Registered Recurring ENVIRONMENTAL AID Bakari Chavez Work Phone: [facility] Start: 04-15-2023 Chart abstracting Lindy Valentino [facility] Work Phone: [facility] Start: 04-15-2023 End: 04-15-2023 ambulatory LINDY VALENTINO Not Available Start: 04-11-2023 End: 04-11-2023 ambulatory ELIAZAR PIRES Not Available Start: 04-11-2023 End: 04-11-2023 Office outpatient visit 15 minutes Eliazar Pires DPM Work Phone: [facility] Comment on above: Metatarsalgia, left foot (Primary Dx); Diabetes 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 polyneuropathy, with long-term current use of insulin ([facility]); Onychomycosis; Toe pain, right; Toe pain, left Start: 04-05-2023 End: 04-05-2023 ambulatory KALA LLOYD Not Available Start: 04-02-2023 End: 04-02-2023 ambulatory LAVERNE PORTER Not Available Start: 04-01-2023 End: 04-01-2023 ambulatory DENNIS FOSTER [facility] Start: 04-01-2023 End: 04-01-2023 ambulatory [facility]OST[facility] Start: 03-29-2023 End: 03-29-2023 ambulatory REYMUNDO [facility] Start: 03-29-2023 End: 04-01-2023 ambulatory REYMUNDO [facility] Start: 03-28-2023 Telephone encounter [facility] Comment on above: Direct LDL Start: 03-27-2023 End: 04-11-2023 ambulatory DENNIS [facility] Start: 03-26-2023 Telephone encounter Louise Hale RN [facility] Start: 03-15-2023 End: 03-15-2023 ambulatory BRANDON QIAN Not Available Start: 03-15-2023 End: 03-15-2023 Office outpatient visit 25 minutes Dennis Foster MD Work Phone: [facility] Comment on above: Chest pain, unspecif ied type (Primary Dx); Primary hypertension; Familial hypercholesterolemia; Abnormal EKG Start: 03-15-2023 End: 03-15-2023 ambulatory DENNIS [facility] Start: 03-14-2023 Telephone encounter Ramila Jones CMA [facility] Start: 02-27-2023 End: 02-27-2023 ambulatory LIVE [facility] Start: 02-20-2023 End: 02-20-2023 ambulatory LINDY VALENTINO Not Available Start: 02-14-2023 End: 02-14-2023 ambulatory ELIAZAR PIRES Not Available Start: 02-06-2023 End: 02-06-2023 ambulatory LINDY K JAS Not Available Start: 01-28-2023 End: 01-28-2023 ambulatory BRANDON GONZALESBirdFER Not Available Start: 01-21-2023 End: 01-21-2023 ambulatory KAYLIE CHAVEZ Not Available Start: 10-18-2022 End: 10-18-2022 ambulatory Nir Danis Other [employer] Other Start: 10-18-2022 Office outpatient visit 25 minutes Nir Danis [facility] Start: 09-05-2022 End: 09-05-2022 ambulatory Imad Asaad Facility:[facility] Start: 08-09-2022 End: 08-09-2022 ambulatory Kaylie R Chavez Facility:[facility] Start: 08-09-2022 End: 08-09-2022 ambulatory MD Kala Lloyd Work Phone: [facility] Work Phone: Start: 08-09-2022 End: 08-09-2022 Patient encounter procedure MD Kala Lloyd Work Phone: [facility] Work Phone: Start: 07-25-2022 End: 07-25-2022 ambulatory Kaylie R Chavez Facility:[facility] Start: 07-25-2022 End: 07-25-2022 Patient encounter procedure MD Kala Lloyd Work Phone: [facility] Work Phone: Start: 07-23-2022 End: 07-23-2022 ambulatory Nir Danis Facility:[facility] Start: 07-23-2022 End: 07-23-2022 ambulatory MD Kala Lloyd Work Phone: [facility] Work Phone: Start: 07-23-2022 End: 07-23-2022 Patient encounter procedure MD Kala Lloyd Work Phone: [facility]-Nuc Med [facility] Work Phone: Start: 07-18-2022 Telephone encounter Nir Danis [facility] Start: 07-18-2022 End: 07-19-2022 ambulatory NIR DANIS [facility] [employer] [facility] Other Start: 07-12-2022 End: 07-12-2022 ambulatory Kaylie R Chavez Facility:[facility] Start: 07-12-2022 End: 07-12-2022 Admission to same day surgery center MD Kala Lloyd Work Phone: [facility] Work Phone: Start: 07-12-2022 End: 07-12-2022 ambulatory MD Kala Lloyd Work Phone: [facility] Work Phone: Start: 07-10-2022 Registered Recurring MD Kala tam Work Phone: [facility] Start: 07-02-2022 End: 07-03-2022 ambulatory NIR DANIS Facility:[facility] Start: 06-04-2022 End: 06-04-2022 ambulatory Imad Asaad Other [employer] Other Start: 06-04-2022 Office outpatient ne w 45 minutes Imad Asaad [facility] Start: 05-18-2022 End: 05-18-2022 ambulatory MD Kala Lloyd Work Phone: [facility] Work Phone: Start: 05-18-2022 End: 05-18-2022 Registered Recurring MD Kala Lloyd Work Phone: [facility] Work Phone: Start: 04-12-2022 End: 04-13-2022 ambulatory NIR DANIS [facility] [employer] Other Start: 04-12-2022 Office outpatient visit 25 minutes Nir Danis [facility] Start: 04-05-2022 End: 04-06-2022 ambulatory NIR DANIS Facility:[facility] Start: 02-07-2022 End: 02-08-2022 ambulatory Eliazar Pires Facility:[facility] Start: 02-07-2022 End: 02-07-2022 Lab Drop off Eliazar Pires [facility] Start: 02-05-2022 End: 02-06-2022 ambulatory Eliazar Pires Facility:[facility] Start: 02-05-2022 End: 02-05-2022 Patient encounter procedure Eliazar Pires [facility] Start: 01-08-2022 End: 01-09-2022 ambulatory Eliazar Pires Facility:[facility] Start: 01-08-2022 End: 01-08-2022 Patient encounter procedure Eliazar Pires [facility] Start: 09-14-2021 End: 09-14-2021 ambulatory Nir Danis Other [employer] Other Start: 09-14-2021 Office outpatient visit 25 minutes Nir Danis [facility] Start: 09-12-2021 End: 09-13-2021 ambulatory NIR DANIS Facility: Start: 08-30-2021 End: 08-31-[address] [facility] Facility: Procedures Date Procedure Procedure Detail Performing Clinician Start: 03-15-2023 Ecg routine ecg w/least 12 lds w/i&r Dennis Foster MD Work Phone: Start: 03-15-2023 Follow-up visit Follow-up DENNIS FOSTER Start: 09-05-2022 Colonoscopy Eliazar RASHIDM Work Phone: Start: 08-09-2022 Ultrasound elastography of [...] Lloyd Work Phone: Start: 03-09-2022 Mammography Eliazar RASHIDM Work Phone: Plan of Treatment Date Care Activity Detail Author Start: 09-05-2032 Screening for malignant neoplasm of colon [facility] Start: 06-11-2024 Adult BMI Screening Adult BMI Screening [facility] Start: 06-11-2024 Tobacco Screening Tobacco Screening [facility] Start: 05-16-2024 Tobacco Screening Tobacco Screening [facility] Start: 04-01-2024 Adult BMI Screening Adult BMI Screening [facility] Start: 04-01-2024 Tobacco Screening Tobacco Screening [facility] Start: 03-15-2024 Adult BMI Screening Adult BMI Screening [facility] Start: 03-15-2024 Tobacco Screening Tobacco Screening [facility] Start: 02-28-2024 Tobacco Screening Tobacco Screening [facility] Start: 01-23-2024 Adult BMI Screening Adult BMI Screening [facility] Start: 11-10-2023 Influenza vaccination Influenza Vaccine [facility] Start: 09-28-2023 Glaucoma screening Diabetes: Retinopathy Screening [facility] Start: 09-08-2023 Influenza vaccination Influenza Vaccine (#1) [facility] Comment on above: Postponed from 11/09/2022 (Patient Refus ed) Start: 08-14-2023 End: 08-14-2023 Patient encounter procedure 08/14/2023 12:45 PM EDT Office Visit [facility] [address] [place] [address] Live Monk, PA-C [address] [place] [address] [facility] Start: 07-12-2023 End: 07-12-2023 Admission to same day surgery center 07/12/2023 11:00 AM EDT - 07/12/2023 11:11 AM EDT Surgery [facility] [address] [place] [id number] Reymundo Giron MD [address] [place] [address] RADIOFREQUENCY ABLATION SPINAL Left L 2/3, 3/4 [60664 (CPT )] [facility] Comment on above: RADIOFREQUENCY ABLATION SPINAL Left L 2/ 3, 3/4 [10764 (CPT )] Start: 07-12-2023 End: 07-12-2023 Dstr nrolytc agnt parverteb fct sngl lmbr/sacral RADIOFREQUENCY ABLATION SPINAL Lumbar spondylosis 07/12/2023 11:00 AM EDT [facility] Start: 07-12-2023 Subsequent hospital visit by physician 07/12/2023 11:00 AM EDT Hospital Encounter [facility] [address] [place] [phone] Reymundo Giron MD [address] [place], [place] [id number] [facility] Start: 07-02-2023 End: 07-02-2023 Patient encounter procedure 07/02/2023 2:15 PM EDT Office Visit [facility] [address] [place] [phone] Laverne Porter DO [address] [place] [address] [facility] [address] Start: 07-02-2023 Hemoglobin A1c measurement Diabetes: Hemoglobin A1C [facility] Start: 06-28-2023 End: 06-28-2023 Admission to same day surgery center 06/28/2023 11:00 AM EDT - 06/28/2023 11:11 AM EDT Surgery [facility] [address] [place] [id number] Reymundo Giron MD [address] [place] [id number] RADIOFREQUENCY ABLATION SPINAL Right L 2/3 3/4 [90667 (CPT )] [facility] Comment on above: RADIOFREQUENCY ABLATION SPINAL Right L 2 /3 05/12 [83842 (CPT )] Start: 06-28-2023 End: 06-28-2023 Dstr nrolytc agnt parverteb fct sngl lmbr/sacral RADIOFREQUENCY ABLATION SPINAL Lumbar spondylosis 06/28/2023 11:00 AM EDT [facility] Start: 06-28-2023 Subsequent hospital visit by physician 06/28/2023 11:00 AM EDT Hospital Encounter [facility] [address] [place] [phone] Reymundo Giron MD [address] [place] [phone] [facility] Start: 06-20-2023 End: 06-20-2023 Patient encounter procedure 06/20/2023 2:00 PM EDT Office Visit [facility] [address] [facility] [address] [place] [phone] Eliazar Pires, SULEMA [address] [facility] [address] [place] [address] [facility] Start: 06-12-2023 End: 06-12-2023 Patient encounter procedure 06/12/2023 10:45 AM EDT Office Visit [facility] [address] [place] [phone] Live Monk, PADarrellC [address] [facility] [place], [place] [phone] [facility] Start: 04-17-2023 End: 04-17-2023 Patient encounter procedure 04/17/2023 2:30 PM EST Office Visit [facility] [address] [place] [phone] Live Monk, PASadiq [address] [place], [place] [phone] [facility] Start: 04-15-2023 End: 04-15-2023 Clinical Support 04/15/2023 11:00 AM EST Clinical Support [facility] [address] [place] [address] Lindy Valentino, [facility] [address] [place] [address] [facility] Start: 04-01-2023 End: 04-01-2023 Patient encounter procedure [facility] Start: 03-29-2023 End: 03-29-2023 Admission to same day surgery center 03/29/2023 10:34 AM EST - 03/29/2023 10:40 AM EST Surgery [facility] [address] [place] [phone] Reymundo Giron MD [address] [place], [place] [id number] INJECTION BLOCK NERVE MEDIAL BRANCH Bilat L 2/3, 3/4 [96574 (CPT )] [facility] Comment on above: INJECTION BLOCK NERVE MEDIAL BRANCH Bila t L 2/3, 3/4 [37057 (CPT )] Start: 03-29-2023 End: 03-29-2023 Njx dx/ther agt pvrt facet jt lmbr/sac 1 level INJECTION BLOCK NERVE MEDIAL BRANCH Lumbar spondylosis 03/29/2023 10:34 AM [facility] Start: 03-29-2023 Subsequent hospital visit by physician [facility] - Pain Procedures Start: 03-29-2023 End: 03-29-2023 Patient encounter procedure 03/29/2023 8:55 AM EST Appointment [facility] - Radiology [address] [place] [place] [id number] Reymundo Grion MD [address], [place] [id number] [facility] - Radiology Start: 03-27-2023 End: 03-27-2023 Patient encounter procedure [facility] - Stress Imaging Start: 03-22-2023 End: 03-15-2024 Basic metabolic 2000 panel - Serum or Plasma Basic Metabolic Panel Lab Routine Primary hypertension Familial hypercholesterolemia Chest pain, unspecified type Abnormal EKG Expected: 03/22/2023 (Approximate), Expires: 03/15/2024 [facility] Comment on above: Expected: 03/22/2023 (Approximate), Expi res: 03/15/2024 Start: 03-22-2023 End: 03-15-2024 CBC W Auto Differential panel - Blood CBC auto differential Lab Routine Primary hypertension Familial hypercholesterolemia Chest pain, unspecified type Abnormal EKG Expected: 03/22/2023, Expires: 03/15/2024 [facility] Comment on above: Expected: 03/22/2023, Expires: Start: 03-22-2023 End: 03-15-2024 Lipid 1996 panel - Serum or Plasma Lipid profile Lab Routine Primary hypertension Familial hypercholesterolemia Chest pain, unspecified type Abnormal EKG Expected: 03/22/2023, Expires: 03/15/2024 [facility] Comment on above: Expected: 03/22/2023, Expires: Start: 03-22-2023 End: 03-14-2024 NM Heart Perfusion W adenosine and W radionuclide IV Nuc stress Lexiscan/Exercise Cardiac Services Routine Chest pain, unspecified type Abnormal EKG Expected: 03/22/2023, Expires: 03/14/2024 [facility] Work Phone: Comment on above: Expected: 03/22/2023, Expires: Start: 03-15-2023 End: 03-15-2023 Patient encounter procedure 03/15/2023 1:00 PM EST Office Visit [facility] [address] [place] [address] Dennis Foster MD [address] [place] [address] [facility] Start: 03-09-2023 Screening for malignant neoplasm of breast Mammogram [facility] Start: 11-09-2022 Influenza vaccination Influenza Vaccine [facility] Start: 08-09-2022 [facility] Start: 07-12-2022 [facility] Start: 04-27-2022 [facility] Start: 12-24-2021 Administration of varicella zoster vaccine Zoster (Shingles) Vaccine (1 of 2) [facility] Start: 12-24-1990 DTaP,Tdap and Td Vaccines (1 - Tdap) DTaP,Tdap and Td Vaccines (1 - Tdap) [facility] Start: 12-24-1989 Adult BMI Follow Up Plan Adult BMI Follow Up Plan [facility] Start: 12-24-1989 Diabetic foot examination Diabetic Foot Exam [facility] Start: 1983 Depression Screening Depression Screening [facility] Start: 1971 Glaucoma screening Diabetic Ophthalmology Exam [facility] Start: 1971 Screening for malignant neoplasm of colon [facility] Start: 1971 Tobacco Counseling Tobacco Counseling [facility] End: 03-28-2024 Cholesterol in LDL [Mass/volume] in Serum or Plasma LDL cholesterol, direct Lab Routine Familial hypercholesterolemia 1 Occurrences starting 03/28/2023 until 03/28/2024 [facility] Work Phone: Comment on above: 1 Occurrences starting 03/28/2023 until 03/28/2024 Njx dx/ther agt pvrt facet jt lmbr/sac 1 level INJECTION BLOCK NERVE MEDIAL BRANCH Lumbar spondylosis [facility] Patient Education Gastritis (DC) [facility] Work Phone: Renal function 2000 panel - Serum or Plasma [facility] Immunizations Immunization Date Immunization Notes Care Provider Page celestin 06-21-2021 hepatitis B vaccine, adult dosage Eliazar Brown DPM Work Phone: [facility] 03-01-2020 hepatitis A vaccine, adult dosage Eliazar Brown DPM Work Phone: [facility] 03-01-2020 hepatitis B vaccine, adult dosage Eliazar Brown DPM Work Phone: [facility] 01-24-2020 hepatitis A vaccine, adult dosage Eliazar Brown DPM Work Phone: [facility] 01-24-2020 pneumococcal polysaccharide vaccine, 23 valent Eliazar Filiberto DPM Work Phone: [facility] 01-24-2020 Seasonal, quadrivalent, recombinant, injectable influenza vaccine, preservative free Eliazar Filiberto DPM Work Phone: [facility] 01-24-2020 influenza virus vaccine, unspecified formulation Ramila Jones [facility] 12-18-2018 hepatitis A vaccine, adult dosage Eliazar Brown DPM Work Phone: [facility] 12-18-2018 Seasonal, quadrivalent, recombinant, injectable influenza vaccine, preservative free Eliazar Brown DPM Work Phone: [facility] 12-13-2016 influenza virus vaccine, unspecified formulation [facility] 12-13-2016 influenza, injectable, quadrivalent, preservative free Eliazar Brown DPM Work Phone: [facility] 12-13-2016 influenza, injectable,quadrival ent, preservative free, pediatric Nir Danis Other [employer] Other NEGATED: Highlighted row has not occurred! 9 influenza, injectable,quadrival ent, preservative free, pediatric Patient Objection Nir Danis Other [employer] Other Payers Date Payer Category Payer Medicaid [id number] 2022 Unknown [id number] 1971 Unknown [id number] 2.16.8 40.1.345182.3.579.2.727 1971 Unknown [id number] 2.16.8 40.1.080312.3.579.2.727 1971 Unknown [id number] 2.16.8 40.1.331637.3.579.2.727 1971 Unknown [id number] 2.16.84 0.1.216416.3.579.2.593 1971 Unknown [id number] 2.16.84 0.1.183753.3.579.2.593 1971 Unknown [id number] 2.16.84 0.1.178182.3.579.2.593 1971 Unknown [id number] 2.16.84 0.1.521313.3.579.2.593 1971 Unknown [id number] 2.16.84 0.1.146183.3.579.2.593 1971 Unknown [id number] 2.16.84 0.1.472720.3.579.2.593 1971 Unknown [id number] 2.16.8 40.1.429075.3.579.2.1286 1971 Unknown [id number] 2.16.8 40.1.476385.3.579.2.1286 1971 Unknown [id number] 2.16.8 40.1.103320.3.579.2.1286 1971 Unknown [id number] 2.16.8 40.1.833985.3.579.2.1286 1971 Unknown [id number] 2.16.8 40.1.024255.3.579.2.1286 1971 Unknown [id number] 2.16.8 40.1.711296.3.579.2.1286 1971 Unknown [id number] 2.16.8 40.1.666463.3.579.2.1286 1971 Unknown [id number] 2.16.8 40.1.721541.3.579.2.1286 1971 Unknown [id number] 2.16.8 40.1.370899.3.579.2.1286 1971 Unknown [id number] 2.16.8 40.1.938990.3.579.2.1286 1971 Unknown [id number] 2.16.8 40.1.344914.3.579.2.1285 1971 Unknown [id number] 2.16.8 40.1.362371.3.579.2.1286 1971 Unknown [id number] 2.16.8 40.1.159675.3.579.2.128 1971 Unknown [id number] 2.16.84 0.1.281227.3.579.2.1286 1971 Unknown [id number] 2.16.8 40.1.415189.3.579.2.6 1971 Unknown [id number] 2.16.8 40.1.737403.3.579.2.1286 1971 Unknown [id number] 2.16.84 0.1.179186.3.579.2.128 1971 Unknown [id number] 2.16.84 0.1.701171.3.579.2.128 1971 Unknown [id number] 2.16.84 0.1.520660.3.579.2.6 1971 Unknown [id number] 2.16.8 40.1.582467.3.579.2.128 1971 Unknown [id number] 2.16.8 40.1.882093.3.579.2.128 1971 Unknown [id number] 2.16.8 40.1.089136.3.579.2.1286 1971 Unknown [id number] 2.16.8 40.1.081101.3.579.2.1286 1971 Unknown [id number] 2.16.84 0.1.120689.3.579.2.1286 1971 Unknown [id number] 2.16.84 0.1.652169.3.579.2.1286 1971 Unknown [id number] 2.16.84 0.1.420555.3.579.2.1259 1971 Unknown [id number] 2.16.84 0.1.145636.3.579.2.1259 1971 Unknown [id number] 2.16.84 0.1.557659.3.579.2.1259 1971 Unknown [id number] 2.16.84 0.1.195587.3.579.2.1259 1971 Unknown [id number] 2.16.84 0.1.272390.3.579.2.1259 1971 Unknown [id number] 2.16.84 0.1.482927.3.579.2.1259 1971 Unknown [id number] 2.16.84 0.1.707300.3.579.2.1259 1971 Unknown [id number] 2.16.84 0.1.936242.3.579.2.1259 1971 Unknown [id number] 2.16.84 0.1.351378.3.579.2.1259 1971 Unknown [id number] 2.16.84 0.1.445907.3.579.2.1259 1971 Unknown [id number] 2.16.84 0.1.435497.3.579.2.1259 1971 Unknown [id number] 2.16.84 0.1.054364.3.579.2.1259 1971 Unknown [id number] 2.16.84 0.1.602965.3.579.2.1259 1971 Unknown [id number] 2.16.840 .1.717205.3.579.2.1259 1971 Unknown [id number] 2.16.840 .1.460611.3.579.2.1259 1971 Unknown [id number] 2.16.840 .1.739395.3.579.2.9 1971 Unknown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 Expiration Date V isits Requested Visits Authorized [id number] Pending Review 06/12/2023 06/11/2024 1 1 Specialty Diagnoses / Procedures Referred By Contac t Referred To Contact Diagnoses Chest pain, unspecified type Abnormal EKG Procedures Nuc stress Lexiscan/Exercise Dennis Foster MD [address] [place] [address] [facility] [address] [place] [address] Phone: [phone] Referral ID Status Reason Start Date Expiration Date V isits Requested Visits Authorized [id number] Authorized 03/15/2023 03/14/2024 5 5 Additional Source [...] Member Role Status Dates Kaylie Chavez APRN PILE HEADER-C Primary Care Provider Active Team Status: Active Member Role Status Dates Kaylie Chavez APRN PILE HEADER-C Primary Care Provider Active Start: April 16, 2023 Fermín Donahue MD Attending Provider Active Start: April 16, 2023 Team Status: Inactive Member Role Status Dates Kaylie Chavez APRN PILE HEADER-C Primary Care Provider Active Start: April 25, 2023 End: April 25, 2023 Nir Horvath MD Attending Provider Active Start : April 25, 2023 End: April 25, 2023 Team Status: Inactive Member Role Status Dates Kaylie Chavez APRN PILE HEADER-C Primary Care Provider Active Peyton Hoskins MD Attending Provider Active Team Status: Active Member Role Status Dates Kala Lloyd MD Primary Care Provider Active Kaylie Chavez APRN PILE HEADER-C Referring Provider Active Isela Downs MD Attending Provider Active Team Status: Active Member Role Status Dates Kaylie Chavez APRN PILE HEADER-C Primary Care Provider Active Herrera Donahue MD Attending Provider Active Team Status: Inactive Member Role Status Dates Kaylie Chavez APRN PILE HEADER-C Primary Care Provider Active Nir Horvath MD Attending Provider Active Plaster Machine Tender Relationship Specialty Start Date End Date Kaylie Chavez APRN-WRAPPING MACHINE TENDER [address] [place] [address] PCP - General Nurse Practitioner 11/20/18 Plaster Machine Tender Relationship Specialty Start Date End Date Kaylie Chavez APRN-WRAPPING MACHINE TENDER [address] [place] [address] PCP - General Nurse Practitioner 11/20/18 Plaster Machine Tender Relationship Specialty Start Date End Date Kaylie Chavez APRN-WRAPPING MACHINE TENDER [address] [facility] [place] [address] PCP - General Nurse Practitioner 11/20/18 Plaster Machine Tender Relationship Specialty Start Date End Date Kala Lloyd MD [address] [place] [address] PCP - General Family Medicine 08/07/22 Kaylie Chavez NP [address] [place] [address] Nurse Practitioner Family Medicine 08/07/22 Plaster Machine Tender Relationship Specialty Start Date End Date Kala Lloyd MD [address] [place] [address] PCP - General Family Medicine 08/07/22 Kaylie Chavez NP [address] [place] [address] Nurse Practitioner Family Medicine 08/07/22 Plaster Machine Tender Relationship Specialty Start Date End Date Kaylie Chavez ENVIRONMENTAL AID-WRAPPING MACHINE TENDER [address] [place] [address] PCP - General Nurse Practitioner 11/20/18 Plaster Machine Tender Relationship Specialty Start Date End Date Kaylie Chavez, ENVIRONMENTAL AID-WRAPPING MACHINE TENDER [address] [facility] [place] [address] PCP - General Nurse Practitioner 11/20/18 INFORMATION SOURCE (unrecogn ized section and content) DATE CREATED AUTHOR 03/13/2022 [facility] dical Specialist DATE CREATED AUTHOR AUTHOR'S ORGANIZ ATION 03/22/2022 [facility] DATE CREATED AUTHOR AUTHOR'S ORGANIZ ATION 07/22/2022 [facility] DATE CREATED AUTHOR AUTHOR'S ORGANIZ ATION 06/23/2023 [facility] DATE CREATED AUTHOR AUTHOR'S ORGANIZ ATION 08/24/2023 [facility] DATE CREATED AUTHOR AUTHOR'S ORGANIZ ATION 09/04/2023 [facility] dical Specialists EPIC Goals (unrecognized section [...] BE BASED ON THE PRIMARY CLINICAL RECORDS. [facility] [employer] provides no warranty or guarantee of the accuracy or completeness of information in this document.
[2023-09-09 12:10] LABS: Alanine Aminotransferase 28 U/L (14-59); Albumin Globulin Ratio 0.8; Albumin Level 3.1 g/dL (3.4-5.0); Alkaline Phosphatase 67 U/L (46-116); Aspartate Amino Transferase <5 U/L (15-37); Bilirubin Direct <0.1 mg/dL (0.0-0.2); Bilirubin Total 0.3 mg/dL (0.2-1.0); Total Protein 7.1 g/dL (6.4-8.2); Valproic Acid 20.8 ug/mL (50.0-100.0)
== END 2023-09-09 11:41 | disposition home or self-care (01) ==
LOC: LAB 11:43
PROVIDERS: PCP Nurse Practitioner Family
DX: F31.4 Bipolar disorder, current episode depressed, severe, without psychotic features (principal); Z79.899 Other long term (current) drug therapy
CPT/HCPCS: 36415; 80076; 80164

== ENCOUNTER 2023-11-13 10:31 | Outpatient (OUT) | payer MEDICAID, SELFPAY ==
[2023-11-13 11:04] LABS: Hematocrit 46.7 % (36.0-48.0); Hemoglobin 15.6 g/dL (12.0-16.0); Mean Corpuscular HGB Conc 33.4 g/dL (29.9-35.2); Mean Corpuscular Hemoglobin 30.4 pg (26.7-34.0); Mean Platelet Volume 10.9 fL (9.5-13.5); Platelet Count 259 10^3/uL (150-450); Red Blood Count 5.13 10^6/uL (4.20-5.40); Red Cell Distribution Width 13.2 % (11.0-15.0); White Blood Count 11.8 10^3/uL (4.0-11.0)
[2023-11-13 11:06] LABS: Bilirubin Urine NEGATIVE (NEGATIVE); Blood Urine MODERATE (NEGATIVE); Clarity Urine CLEAR (CLEAR); Color Urine YELLOW (YELLOW); Glucose Urine UA NEGATIVE (NEGATIVE); Ketones Urine NEGATIVE (NEGATIVE); Leukocyte Esterase Urine NEGATIVE (NEGATIVE); Nitrite Urine NEGATIVE (NEGATIVE); Protein Urine >=300 mg/dL (NEG/TRACE); Specific Gravity Urine >=1.030 (1.005-1.025); Urobilinogen Urine 0.2 EU/dL (0.2-1.0); pH Urine 5.5 (5.0-9.0)
[2023-11-13 11:13] LABS: Bacteria Urine SMALL #/HPF (NONE SEEN); Cast Seen? NONE SEEN #/LPF (NONE SEEN); Crystals Seen? None Seen #/HPF (None Seen); Mucus Urine SMALL (NONE SEEN); Squamous Epithelial Cell Urine MODERATE #/LPF (NONE/RARE); WBC Urine 0-2 #/HPF (NONE SEEN)
[2023-11-13 11:46] LABS: Albumin Level 3.1 g/dL (3.4-5.0); BUN Creatinine Ratio 16.2; Calcium 9.7 mg/dL (8.5-10.1); Chloride 102 mmol/L (98-107); Estimated GFR (African America >60 (>=60); Estimated GFR (Non-African Ame 55 (>=60); Glucose 120 mg/dL (74-106); Magnesium 1.5 mg/dL (1.8-2.4); Phosphorus 3.8 mg/dL (2.6-4.7); Potassium 3.7 mmol/L (3.5-5.1); Sodium 143 mmol/L (136-145); Uric Acid 7.5 mg/dL (2.6-6.0)
[2023-11-13 11:50] LABS: Anion Gap 15.4; Carbon Dioxide 29.3 mmol/L (21.0-32.0)
[2023-11-13 12:15] LABS: Creatinine Urine Random 356.96 mg/dL (20.00-300.00)
[2023-11-13 12:45] LABS: Protein Creatinine Ratio Urine 2.03; Total Protein Urine Random 725.5 mg/dL (<=11.9)
[2023-11-14 14:10] LABS: PTH, Intact 25 pg/mL (15-65)
== END 2023-11-13 10:32 | disposition home or self-care (01) ==
LOC: LAB 10:33
PROVIDERS: PCP Nurse Practitioner Family; Visit Provider Internal Medicine
DX: R80.1 Persistent proteinuria, unspecified (principal); N18.30 Chronic kidney disease, stage 3 unspecified; E83.52 Hypercalcemia; E83.42 Hypomagnesemia; E11.22 Type 2 diabetes mellitus with diabetic chronic kidney disease
CPT/HCPCS: 36415; 80069; 81001; 82306; 82570; 83735; 83970; 84156; 84550; 85027

== ENCOUNTER 2023-12-25 10:47 | Outpatient (OUT) | payer MEDICAID, SELFPAY ==
--- OUTSIDE RECORDS SUMMARY | 2023-12-25 11:14 | XMS_ITS | CCD ---
Demographics Address [address] [address] Preferred Language en Marital Status Single Muslim Affiliation Unknown Race White Ethnic Group Not or Lati no Author Organization [facility] Care Team Providers Care Copper Etcher Name Role Phone Danis, Nir Unavailable KAYLIE CHAVEZ Primary Care Physician Rosina Salter Unavailable Unavailable KALA LLOYD Primary Care Physician Eliazar Pires Attending Unavailable Eliazar Pires Admitting Unavailable Eliazar Pires Attending Unavailable Eliazar Pires Admitting Unavailable Eliazar Pires Admitting Unavailable Eliazar Pires Attending Unavailable MD Kala Lloyd Primary Care Provider [phone] TAMMIE Chavez Referring Provider [phone] MD Isela Downs Attending Provider [phone] Peyton Hoskins Unavailable MD Kala Lloyd Primary Care Provider TAMMIE Chavez Referring Provider MD Isela Downs Attending Provider [phone] TAMMIE Chavez Primary Care Provider [phone] MD Peyton Hoskins Attending Provider DANIS, NIR [...] Care Unavailable DANIS, NIR Consulting Unavailable Chavez, SWITCHBOARD WIRER Kaylie R Primary Care Provider MD Herrera Donahue Attending Provider MD Nir Horvath Attending Provider Chavez SWITCHBOARD WIRER-DIE TRY OUT WORKER STAMPING, Kaylie R Primary Care Provider Prema COUGHLIN, Kala Sepulveda Primary Care Provider [phone] Chavez MARKET RESEARCH WORKER, Kaylie R Unavailable TAMMIE Chavez Kaylie R Primary Care Provider MD Fermín Donahue Attending Provider Scott SWITCHBOARD WIRER Kaylie R Primary Care Provider MD Fermín Donahue Attending Provider MD Jeovanny Mendes Attending Provider Chavez, Kaylie R Primary Care Unavailable Jeovanny Mendes Attending Unavailable Jeovanny Mendes Admitting Unavailable Chavez, SWITCHBOARD WIRER Kaylie R Primary Care Provider MD Fermín Donahue Attending Provider REYMUNDO GIRON E Attending Unavailable GIRON, REYMUNDO E Referring Unavailable CHAVEZ, KAYLIE R Primary Care Unavailable GIRONREYMUNDO SAUCEDO E Admitting Unavailable GIRONREYMUNDO SAUCEDO Attending Unavailable GIRON, REYMUNDO E Referring Unavailable CHAVEZ, KAYLIE R Primary Care Unavailable RD BARBOUR Attending Unavailable CHAVEZ, KAYLIE R Primary Care Unavailable LIVE KWON Attending Unavailable CHAVEZ, KAYLIE R Referring Unavailable CHAVEZ, KAYLIE R Primary Care Unavailable CHAVEZ, KAYLIE R Primary Care Unavailable JULITA PETERSEN Attending Unavailab DENNIS Herrera Attending Unavailable CHAVEZ, KAYLIE R Referring Unavailable [...] Admitting Unavailable GIRON, REYMUNDO E Attending Unavailable HCAVEZ, KAYLIE R Referring Unavailable CHAVEZ, KAYLIE R Primary Care Unavailable GIRON, REYMUNDO E Admitting Unavailable GIRON, REYMUNDO E Attending Unavailable CHAVEZ, KAYLIE R Referring Unavailable CHAVEZ, KAYLEI R Primary Care Unavailable GIRON, REYMUNDO E Attending Unavailable GIRON, REYMUNDO E Referring Unavailable CHAVEZ, KAYLIE R Primary Care Unavailable CHAVEZ, KAYLIE R Referring Unavailable CHAVEZ, KAYLIE R Primary Care Unavailable DENNIS FOSTER Attending Unavailable DENNIS FOSTER Referring Unavailable CHAVEZ, KAYLIE R Primary Care Unavailable DENNIS FOSTER Attending Unavailable DENNIS FOSTER Referring Unavailable CHAVEZ, KAYLIE R Primary Care Unavailable GIRON, REYMUNDO E Attending Unavailable GIRON, REYMUNDO E Referring Unavailable CHAVEZ, KAYLIE R Primary Care Unavailable SYEDA AMES Attending Unavailable CHAVEZ, KAYLIE R Primary Care Unavailable VERHOFFLIVE Attending Unavailable CHAVEZ, KAYLIE R Referring Unavailable CHAVEZ, KAYLIE R Primary Care Unavailable LIVE KWON Referring Unavailable CHAVEZ, KAYLIE R Primary Care Unavailable LIVE KWON Referring Unavailable CHAVEZ, KAYLIE R Primary Care Unavailable GIRON, REYMUNDO E Attending Unavailable GIRON, REYMUNDO E Referring Unavailable CHAVEZ, KAYLIE R Primary Care Unavailable GIRON, REYMUNDO E Admitting Unavailable GIRON, REYMUNDO E Attending Unavailable CHAVEZ, KAYLIE R Referring Unavailable CHAVEZ, KAYLIE R Primary Care Unavailable RD BARBOUR Attending Unavailable CHAVEZ, KAYLIE R Primary Care Unavailable VERHOFFLIVE Attending Unavailable CHAVEZ, KAYLIE R Referring Unavailable CHAVEZ, KAYLIE R Primary Care Unavailable VERHOFFLIVE Attending Unavailable CHAVEZ, KAYLIE R Referring Unavailable CHAVEZ, KAYLIE R Primary Care Unavailable DENNIS FOSTER Attending Unavailable DENNIS FOSTER Referring Unavailable CHAVEZ, KAYLIE R Primary Care Unavailable DENNIS FOSTER Attending Unavailable DENNIS FOSTER Referring Unavailable CHAVEZ, KAYLIE R Primary Care Unavailable DENNIS FOSTER Attending Unavailable DENNIS FOSTER Referring Unavailable CHAVEZ KAYLIE R Primary Care Unavailable BRANDON LAUGHLIN Attending Unavailable LAVERNE PORTER Attending Unavailable PREMAKALA F Referring Unavailable PREMAKALA MIRANDA Attending Unavailable ELIAZAR PIRES Attending Unavailable LINDY VALENTINO Attending Unavailabl KAYLIE Alfaro Referring Unavailable BRANDON LAUGHLIN Attending Unavailable BRANDON LAUGHLIN Referring Unavailable LINDY VLAENTINO Attending Unavailabl e ELIAZAR PIRES Attending Unavailable PREMAKALA Attending Unavailable LAVERNE PORTER Attending Unavailable JAS, LINDY Naik Attending Unavailabl e JAS, LINDY Naik Attending Unavailabl e KAYLIE CHAVEZ Attending Unavailable LEXIS, ELIAZAR Chacon Attending Unavailable JAS, LINDY Naik Attending Unavailabl e LEXIS, ELIAZAR Chacon Attending Unavailable JAS, LINDY Naik Attending Unavailabl RALPH Diaz Attending Unavailable LAVERNE OPRTER Attending Unavailable JAS, LINDY Naik Attending Unavailabl e BROWNELIAZAR Attending Unavailable JAS, LINDY K Attending Unavailabl e JAS, LINDY K Attending Unavailabl e Allergies Allergy Classification Reported Allergen(s) Allergy Type Date of Onset Reaction(s) Facility (14 sources) Coconut extract Drug Allergy 05-19-19 Unknown, [facility] (20 sources) Codeine; Translations: [CODEINE] Drug Allergy 01-01-20 [facility] (20 sources) dapagliflozin; Translations: [DAPAGLIFLOZIN] Drug Allergy 01-01-20 [facility] (20 sources) Latex; Translations: [LATEX] Propensity to adverse reactions 01-08-20 [facility] (5 sources) onions Propensity to adverse reactions Unknown [employer] Other (9 sources) Acetaminophen Drug Allergy 05-19-19 Unknown Reaction [facility] (4 sources) Bee pollen Allergy to substance 05-19-19 Anaphylaxis [facility] (9 sources) Onion extract Drug Allergy 05-19-19 Anaphylaxis [facility] (9 sources) Tide Allergy to substance 05-19-19 23 [facility] (1 source) Coconut extract Drug Allergy 06-17-19 14 [facility] (1 source) Codeine Drug Allergy 02-08-20 13 [facility] (1 source) Latex Drug allergy (disorder) 06-17-19 14 [facility] (1 source) Misc-Food; Translations: [Misc-Food] Food allergy (disorder) 06-17-19 14 [facility] (1 source) Misc-Drug Drug allergy (disorder) 07-05-19 16 [facility] (2 sources) dapagliflozin Drug Allergy 07-24-19 23 Rash [facility] (2 sources) Latex Allergy to substance 07-24-19 23 Unknown [facility] (2 sources) Coconut Flavor Allergy to substance 07-24-19 23 Unknown [facility] Work Phone: Medications Current Medications Medication Drug Class(es) Dates Sig (Normalized) Sig (Original) [id number] 200 actuat albuterol 0.09 mg/actuat metered dose [...] if needed. 0 07/17/2021 Active Start: 05-25-2019 End: 11-21-2023 take 1 puff(s) by inhalation every four to six hours Albuterol Sulfate Discontinued 2 PUFF INHALATION EVERY 4-6 HOURS May 25, 2019 12:00am November 21, 2023 2:38pm take 2 puff(s) by in halation every six hours as needed for wheezing albuterol (PROVENTIL HFA;VENTOLIN HFA) 90 mcg/actuation inhaler Inhale 2 puffs every 6 (six) hours as needed for wheezing. Active take 2 puff(s) by in halation every six hours as needed Albuterol Sulfate HFA 108 (90 Base) MCG/ACT 2 puffs as needed Inhalation every 6 hrs Active take 2 puff(s) by in halation every six hours as needed Albuterol Sulfate HFA 108 (90 Base) MCG/ACT 2 puffs as needed Inhalation every 6 hrs Active aMILoride hydrochloride 5 mg oral tablet (17 sources) Potassium-sparing Diuretic Start: 04-12-2022 take 5 mg by mouth once daily Amiloride Active 5 MG PO Daily April 25, 2023 1:00am take 1 tablet by nancy every twelve hours aMILoride HCl 5 MG 1 tablet with food Orally bid for 90 days Active atorvastatin 40 mg oral tablet (20 sources) HMG-CoA Reductase Inhibitor Start: 11-21-2023 take 40 mg by mouth once daily at bedtime Atorvastatin Active 40 MG PO Daily at bedtime November 21, 2023 12:00am Start: 04-26-2022 End: 11-21-2023 take 1 tablet by mouth once daily Atorvastatin Discontinued 80 MG PO Daily April 25, 2023 1:00am November 21, 2023 2:39pm [employer] tablet Orally Once a day; Note: Source Status: Taking; Provider: Danis Loyola ( ) Start: 05-15-2018 End: 04-22-2020 take 80 mg by mouth once daily in the morning Atorvastatin Discontinued 80 MG PO Every morning May 15, 2018 1:00am April 22, 2020 4:06pm take 2 tablets by mo [facility] in the morning atorvastatin (LIPITOR) 40 mg tablet Take 2 tablets (80 mg total) by mouth in the morning. Active bismuth subsalicylate 262 mg chewable tablet (1 source) Bismuth Start: 07-20-2022 take 1 tablet by mouth twice daily Bismuth 262 MG 1 tablet Orally twice daily for 14 days July, Active blood-glucose sensor (DEXCOM G6 SENSOR) device (7 sources) blood-glucose se nsor (DEXCOM G6 SENSOR) device by miscellaneous route. Active blood-glucose se nsor (DEXCOM G6 SENSOR) device by miscellaneous route. 0 Active cefuroxime 500 mg oral tablet (11 sources) Cephalosporin Antibacterial Start: 04-05-2023 End: 04-15-2023 [...] 1:24pm cetirizine hydrochloride 10 mg oral tablet (20 sources) Histamine-1 Receptor Antagonist Start: 11-21-2023 take 10 mg by mouth once Cetirizine Active 10 MG PO Once November 21, 2023 12:00am Start: 05-25-2019 End: 04-25-2023 take 10 mg by mouth once daily Cetirizine Discontinued 10 MG PO Daily May 25, 2019 12:00am April 25, 2023 3:45pm chlorproMAZINE hydrochloride 200 mg oral tablet (20 [...] mouth every 8 (eight) hours. 0 Active cholecalciferol 1.25 mg oral capsule (19 sources) Vitamin D Start: 11-21-2023 take 1250 ug by mouth every week Cholecalciferol (Vitamin D3) Active 1250 MCG PO every week November 21, 2023 12:00am Start: 04-21-2020 End: 04-27-2022 take 10 ug by mouth once daily Cholecalciferol (Vitami n D3) Discontinued 10 MCG PO Daily April 21, 2020 1:00am April 27, 2022 10:40am cholecalciferol (VITAMIN D3) 50,000 units capsule Take 5,000 Units by mouth once a week. Active take 1 capsule by mo uth every week cholecalciferol (Vitamin D-3) 1.25 MG (57723 UT) capsule Take 50,000 Units by mouth 1 (one) time per week. 0 Active Continuous Blood Gluc Sensor (Dexcom G6 Sensor) misc (2 sources) Start: 01-03-2023 Continuous Blood Gluc Sensor (Dexcom G6 Sensor) misc Indications: Type 2 diabetes mellitus with peripheral neuropathy (CMS/HCC) 1 each Every 10 (ten) days. 9 each 3 01/03/2023 Active doxepin hydrochloride 50 mg oral capsule (20 sources) Tricyclic Antidepressant Start: 05-15-2018 take 50 mg by mouth three times daily Doxepin Active 50 MG PO Three times daily May 15, 2018 1:00am [id number] 0.3 ml EPINEPHrine 1 mg/ml auto-injector (9 sources) alpha-Adrenergic Agonist, beta-Adrenergic Agonist, Catecholamine Start: 11-02-2021 EPINEPHrine (EpiPen 2-Dre) 0.3 MG/0.3ML injection syringe Inject 1 Syringe as directed 1 (one) time. 0 11/02/2021 Active EPINEPHrine (ADR ENALIN) 1 mg/mL injection Inject into the appropriate muscle once. Active ezetimibe 10 mg oral tablet (20 sources) Dietary Cholesterol Absorption Inhibitor Start: 12-02-2020 [...] sprays into each nostril in the morning. Active take 1 spray(s) nasa l route once daily Fluticasone Propionate 50 MCG/ACT 1 spray in each nostril Nasally Once a day Active gabapentin 800 mg oral tablet (20 sources) Anti-epileptic Agent Start: 05-15-2018 take 800 mg by mouth four times daily Gabapentin Active 800 MG PO Four times daily May 15, 2018 1:00am take 1 tablet by mouth every six hours gabapentin (Neurontin) 800 MG tablet Take 800 mg by mouth every 6 (six) hours. 0 Active Insulin Aspart U-100 (Novolo g Flexpen U-100 Insulin) 100 unit/mL (3 mL) Insulin Pen (9 sources) Start: 05-25-2019 Insulin Aspart U-100 (Novolog [...] insulin aspart, human 100 unt/ml pen injector (20 sources) Insulin Analog Start: 04-03-2023 insulin aspart [...] times a day before meals. Sliding scale Active NovoLOG 100 UNIT /ML 30 UNITS FOR SMALL MEALS, 45 UNITS FOR LARGE MEALS Subcutaneous NEEDED Active 3 ml insulin glargine 100 unt/ml pen injector (20 sources) Insulin Analog Start: 11-21-2023 Insulin Glargi ne (Lantus Solostar U-100 Insulin) 100 unit/mL (3 mL) insulin pen Active 35 UNIT SUBCUT Twice daily November 21, 2023 2:47pm Start: 04-25-2023 End: 11-21-2023 Insulin Glargine (Lantus Kenzie ostar U-100 Insulin) 100 unit/mL (3 mL) insulin pen Discontinued 40 UNIT SUBCUT Twice daily April 25, 2023 3:43pm November 21, 2023 2:47pm Start: 04-02-2023 inject 40 [IU] by burgos [...] DAY Active lisinopril 20 mg oral tablet (20 sources) Angiotensin Converting Enzyme Inhibitor Start: 05-15-2018 [...] 2022 1:00am take 2 tablets by mo ut every six hours as needed for anxiety LORazepam (ATIVAN) 0.5 mg tablet Take 2 tablets (1 mg total) by mouth every 6 (six) hours as needed for anxiety. 0.5-1 mg daily 2 tablets at HS Active take 1 tablet by nancy th in the morning, then take 1 tablet by mouth three times daily, then take 2 tablets by mouth at bedtime LORazepam (ATIVAN) 1 mg tablet Take 1 tablet (1 mg total) by mouth in the morning. 1 tablets 3 times daily and 2 tablets at bedtime. Active take 1 tablet by nancy th every six hours as needed for anxiety LORazepam (ATIVAN) 0.5 mg tablet Take 1 tablet (0.5 mg total) by mouth every 6 (six) hours as needed for anxiety. 0.5-1 mg daily 2 tablets at HS 0 Active metFORMIN hydrochloride 1000 mg oral tablet (20 sources) Biguanide Start: 05-15-2018 End: 12-24-2023 take [...] total) in the evening. Take with meals. Active metroNIDAZOLE 500 mg oral tablet (1 source) Nitroimidazole Antimicrobial Start: 07-20-2022 take 1 tablet by mouth every twelve hours metroNIDAZOLE 500 MG 1 tablet Orally Twice a day for 14 days July, Active montelukast 10 mg oral tablet (16 sources) Leukotriene Receptor Antagonist Start: 08-07-2022 take 10 mg by mouth once daily Montelukast Active 10 MG PO Daily April 25, 2023 1:00am Tiotropium-Olodater ol (20 sources) Anticholinergic, beta2-Adrenergic Agonist Start: 04-26-2022 Tiotropium-Olodate [...] 2.5-2.5 mcg/actuation mist Inhale 2 puffs daily. Active Stiolto Respimat 2.5-2.5 MCG/ACT Inhalation for 30 Days Active omeprazole 40 mg delayed release oral capsule (1 source) Proton Pump Inhibitor Start: 07-20-2022 Omeprazole 40 MG 1 capsule 30 minutes before morning meal and evening meal Orally twice a day for 14 days July, Active polyethylene glycol 3350 [id number] mg / potassium chloride 2970 mg / sodium bicarbonate 6740 mg / sodium chloride 5860 mg / sodium sulfate 48652 mg powder for oral solution (1 source) [...] 04/05/2023 Active rOPINIRole 0.25 mg oral tablet (20 sources) Nonergot Dopamine Agonist Start: 04-19-2016 take [...] July, Active tiZANidine 4 mg oral tablet (10 sources) Central alpha-2 Adrenergic Agonist Start: 02-27-2023 take 1 tablet by mouth twice daily Tizanidine (Zanaflex) 4 mg tablet Active 4 MG PO Twice daily November 21, 2023 12:00am 24 hr divalproex sodium 500 mg extended release oral tablet (20 sources) Mood Stabilizer, Anti-epileptic Agent Start: 11-21-2023 take 2 tablets by mouth twice daily in the morning, then take 3 tablets by mouth twice daily in the evening Divalproex Active 0 PO Twice daily November 21, 2023 2:43pm 2 tabs in am, 3 tabs in pm orally twice daily; Start: 04-25-2023 End: 11-21-2023 take 1500 mg by mouth once daily Divalproex Discontinued 1500 MG PO Daily April 25, 2023 1:00am November 21, 2023 2:47pm Start: 04-26-2022 End: 04-25-2023 take 1 tablet [...] tablets (1,500 mg total) by mouth nightly. Active take 2 tablets by mo uth [...] coma, with long-term current use of insulin ([facility]) Inject 1 mL (75 mg total) under the skin every 14 (fourteen) days. 2 mL 11 12/21/2021 03/15/2023 Discontinued (Therapy completed) Praluent 75 MG/M L Subcutaneous for 28 Days Active Alirocumab (Praluent Pen) 75 mg/mL Pen Injector (9 sources) Start: 04-26-2022 End: 04-25-2023 inject 75 [...] MG SUBCUT Q14D April 26, 2022 12:00am cyclobenzaprine hydrochloride 10 mg oral tablet (18 sources) Muscle Relaxant Start: 04-21-2020 End: 04-22-2020 [...] mouth in the morning. Take 1.5 tablets. Active take 1 tablet by nancy every twenty-four hours Desvenlafaxine ER 100 MG 1 tablet Orally Once a day Active diazePAM 5 mg oral tablet (9 sources) Benzodiazepine Start: 08-28-2019 End: 04-21-2020 take 5 mg by mouth four times daily Diazepam Discontinued 5 MG PO Four times daily 40 August 28, 2019 12:00am April 21, 2020 5:12pm ergocalciferol 1.25 mg oral capsule (10 sources) Provitamin D2 Compound Start: 05-25-2019 End: 04-26-2022 Ergocalciferol (Vitamin D2) (Vitamin D2) 1,250 mcg (50,000 unit) Capsule Discontinued 75870 UNIT PO As Directed May 25, 2019 12:00am April 26, 2022 3:35pm take twice weekly take 1 capsule by mo [facility] two times weekly Vitamin D (Ergocalciferol) 1.25 MG (5000 0 UT) 1 capsule Orally twice a week Active magnesium oxide 400 mg oral tablet (20 sources) Start: 04-25-2023 End: 11-21-2023 take 400 mg by mouth twice daily Magnesium Oxide Discontinued 400 MG PO Twice daily April 25, 2023 4:08pm November 21, 2023 2:57pm Start: 04-26-2022 End: 04-25-2023 take 400 mg by mouth once daily Magnesium Oxide Discon tinued 400 MG PO Daily April 26, 2022 1:00am April 25, 2023 4:08pm take 1 tablet by nancy twice daily at mealtime Magnesium Oxide 400 (240 Mg) MG 1 tablet with food Orally bid for 90 day(s) Active nfwhiivk-fofs-DT-calcium &mi ns (THERAGRAN-M) 9 mg iron-400 mcg tablet (2 sources) End: 03-15-2023 antwwbvt-vjrc-JS-calcium &mi ns (THERAGRAN-M) 9 mg iron-400 mcg tablet Take 1 tablet by mouth in the morning. 0 03/15/2023 Discontinued (Therapy completed) eqxeytnk-sjcm-PF -calcium &mins (THERAGRAN-M) 9 mg iron-400 mcg tablet Take 1 tablet by mouth in the morning. 0 Active Multivitamin preparation (9 sources) Start: 05-25-2019 End: 09-05-2022 take 1 [...] 2019 11:00pm naproxen 500 mg oral tablet (18 sources) Nonsteroidal Anti-inflammatory Drug Start: 04-21-2020 End: 07-11-2022 take 500 mg by mouth every twelve hours Naproxen Discontinued 500 MG PO Q12H April 21, 2020 1:00am July 11, 2022 12:58pm Start: 05-25-2019 End: 08-28-2019 take 500 mg by mouth twice daily Naproxen Discontinued 500 MG PO Twice daily May 25, 2019 12:00am August 28, 2019 8:41am oxyCODONE hydrochloride 5 mg oral tablet (9 sources) Opioid Agonist Start: 08-28-2019 End: 04-22-2020 [...] Active potassium gluconate 2.13 meq oral tablet (9 sources) Start: 07-24-2019 End: 12-02-2020 take 75 mg by mouth once daily Potassium Gluconate Discontinued 75 MG PO Daily July 24, 2019 12:00am December 02, 2020 9:29am tiotropium 0.018 mg inhalation powder (19 sources) Anticholinergic Start: 05-25-2019 End: 04-26-2022 take 1 puff(s) by inhalation once daily in the morning Tiotropium [place] Discontinued 1 PUFF INHALATION Every morning May 25, 2019 12:00am April 26, 2022 3:46pm Start: 05-15-2018 End: 05-25-2019 take 18 ug by inhalation once daily Tiotropium [place] Discontinued 18 MCG INHALATION Daily May 15, [...] stress disorder, unspecified] Chronic Chronic kidney disease (13 sources) Chronic kidney disease stage 2; Translations: [...] Resolved: 4 Chronic Diabetes mellitus without complication (20 sources) Diabetes mellitus; Translations: [Type 2 diabetes mellitus without complications] Onset: 2 04-27-2022 Chronic Diseases of white blood cells (15 sources) Leukocytosis; Translations: [Elevated white blood cell count, unspecified] Onset: 3 04-22-2020 Chronic Disorders of lipid metabolism (20 sources) Hyperlipidemia; Translations: [Hyperlipidemia, unspecified] Onset: 2 12-18-2021 Chronic Esophageal disorders (20 sources) Gastroesophageal reflux disease; Translations: [Gastro-esophageal reflux disease without esophagitis] Onset: 3 04-22-2020 Chronic Essential hypertension (16 sources) Hypertensive disorder; Translations: [Essential (primary) hypertension] Onset: 2 12-18-2021 Chronic Gastritis and duodenitis (2 sources) Gastroduodenitis; Translations: [Gastritis, unspecified, without bleeding] Episodic Genitourinary symptoms and ill-defined conditions (20 sources) Proteinuria; Translations: [Proteinuria, unspecified] Onset: 2 Resolved: 2 Episodic Hepatitis (19 sources) Nonalcoholic steatohepatitis; Translations: [Nonalcoholic steatohepatitis (WICK)] Onset: 2 12-18-2021 Chronic Hypertension with complications and secondary hypertension (20 sources) Hypertensive renal disease; Translations: [Hypertensive chronic [...] Episodic Other connective tissue disease (1 source) History of lumbar fusion; Translations: [Arthrodesis status] 10-01-2023 Episodic Other connective tissue disease (1 source) Arthrodesis status; Translations: [Arthrodesis status] 10-01-2023 Episodic Other connective tissue disease (1 source) Trochanteric bursitis, left hip; Translations: [Trochanteric bursitis, left hip] Onset: 4 Episodic Other connective tissue disease (1 source) Trochanteric bursitis of left hip; Translations: [Trochanteric bursitis, left hip] Onset: 4 10-23-2023 Episodic Other diseases of kidney and ureters (5 sources) Secondary hyperparathyroidism; Translations: [Secondary hyperparathyroidism of renal origin] Chronic Other endocrine disorders (5 sources) Disorder of adrenal gland; Translations: [Disorder of adrenal gland, unspecified] Chronic Other endocrine disorders (12 sources) Adrenal mass; Translations: [Disorder of adrenal gland, unspecified] Onset: 3 07-23-2022 Chronic Other endocrine disorders (5 sources) Disorder of adrenal gland, unspecified; Translations: [Unspecified disorder of adrenal glands] Onset: 2 Resolved: 2 Chronic Other endocrine disorders (2 sources) Other specified disorders of adrenal gland; Translations: [Other specified disorders of adrenal glands] 04-25-2023 Chronic Other gastrointestinal disorders (18 sources) Dysphagia; Translations: [Dysphagia, unspecified] Onset: 3 [...] chronic pain] Onset: 3 07-23-2022 Chronic Other nervous system disorders (1 source) Piriformis syndrome; Translations: [Lesion of sciatic nerve, left lower limb] 10-01-2023 Chronic Other nervous system disorders (1 source) Lesion of sciatic nerve, left lower limb; Translations: [Lesion of sciatic nerve] 10-01-2023 Chronic Other non-traumatic joint disorders (5 sources) Pain of right wrist; Translations: [Pain in right wrist] Episodic Other nutritional; endocrine; and metabolic disorders (5 sources) Obese class I; Translations: [Body mass index (BMI) 33.0-33.9, adult] Chronic Other nutritional; endocrine; and metabolic disorders (10 sources) Hypomagnesemia; Translations: [Hypomagnesemia] 04-25-2023 Chronic Other nutritional; endocrine; and metabolic disorders (7 sources) Hypomagnesemia; Translations: [Disorders of magnesium metabolism] Onset: 2 Resolved: 2 Chronic Other nutritional; endocrine; and metabolic disorders (15 sources) Hypercalcemia; Translations: [Hypercalcemia] Onset: 3 04-27-2022 Chronic Other nutritional; endocrine; and metabolic disorders (11 sources) Hypercalcemia; Translations: [Hypercalcemia] Onset: 3 Chronic [...] KIDNEY DISEASE STG 3 UNSP] Onset: 3 Unclassified (1 source) Low back pain, unspecified; Translations: [Low back pain, unspecified] Onset: 4 Past or Other Problems Problem Classification Problem Date Documented Da te Episodic/Chronic Mood disorders (2 sources) Mood disorders Onset: 08-07-2022 08-07-2022 Nonspecific chest pain (10 sources) Chest pain; Translations: [Chest pain, unspecified] Onset: 03-15-2023 03-15-2023 Episodic Other acquired deformities (2 sources) Acquired spondylolisthesis; Translations: [Spondylolisthesis, site unspecified] Onset: 07-23-2022 07-23-2022 Episodic Other aftercare (12 sources) Long-term current use of insulin; Translations: [half-way (current) use of insulin] Onset: 11-29-2022 Resolved: 04-02-2023 04-02-2023 Episodic Other aftercare (4 sources) Other buttermaker continuous churn (current) drug therapy; Translations: [OTH DETENTION CURRENT DRUG THERAPY] Onset: 08-30-2021 Episodic Other connective tissue disease (1 source) Myalgia, other site; Translations: [Myalgia, other site] Onset: 06-21-2023 Episodic Other hematologic conditions (2 sources) Red [...] Onset: 07-23-2022 Resolved: 04-02-2023 04-02-2023 Chronic Other screening for suspected conditions (not mental disorders or infectious disease) (18 sources) Elevated liver enzymes level; Translations: [Other specified abnormal findings of blood chemistry] Onset: 07-23-2022 04-27-2022 Episodic Residual codes; unclassified (7 sources) Acquired absence of cervix and uterus; Translations: [Acquired absence of both cervix and uterus] Onset: 07-23-2022 07-23-2022 Episodic Results Test Name Value Interpretation Reference Range Facility Erythrocyte distribution wid th Auto (RBC) [Ratio]on 11-13-2023 Erythrocyte distribution width (RBC) [Ratio] 13.2 % 11.0-15.0 [facility] Estimated glomerular filtrat ion rate (GFR) non- Americanon 11-13-2023 GFR/1.73 sq M.predicted among non-blacks MDRD (S/P/Bld) [Vol rate/Area] 55 mL/min/{1.73_m2} Low >=60 [facility] Hematocrit Auto (Bld) [Volum e fraction]on 11-13-2023 Hematocrit (Bld) [Volume fraction] 46.7 % 36.0-48.0 [facility] Hemoglobin [Mass/volume] in Bloodon 11-13-2023 Hemoglobin (Bld) [Mass/Vol] 15.6 g/dL 12.0-16.0 [facility] Laboratory - Chemistry and C hemistry - challengeon 11-13-2023 Albumin [Mass/Vol] 3.1 g/dL Low 3.4-5.0 [facility] Calcium [Mass/Vol] 9.7 mg/dL 8.5-10.1 [facility] Chloride [Moles/Vol] 102 mmol/L 98-107 [facility] CO2 [Moles/Vol] 29.3 mmol/L 21.0-32.0 [facility] Creatinine [Mass/Vol] 1.05 mg/dL High 0.55-1.02 [facility] GFR/1.73 sq M.predicted MDRD (S/P/Bld) [Vol rate/Area] mL/min/{1.73_m2} >=60 [facility] Glucose [Mass/Vol] 120 mg/dL High 74-106 [facility] Magnesium [Mass/Vol] 1.5 mg/dL Low 1.8-2.4 [facility] Potassium [Moles/Vol] 3.7 mmol/L 3.5-5.1 [facility] Sodium [Moles/Vol] 143 mmol/L 136-145 [facility] Urate [Mass/Vol] 7.5 mg/dL High 2.6-6.0 [facility] Urea nitrogen [Mass/Vol] 17.0 mg/dL 7.0-18.0 [facility] Urea nitrogen/Creatinine [Mass ratio] 16.2 mg/mg [facility] Bilirubin Ql (U) Negative NEGATIVE [facility] Glucose (U) [Mass/Vol] Negative NEGATIVE [facility] Ketones Ql (U) Negative NEGATIVE [facility] pH (U) 5.5 [pH] 5.0-9.0 [facility] Specific gravity (U) [Rel density] >=1.030 Abnormal 1.005-1.02 5 [facility] Urobilinogen Qn (U) 0.2 {Jennifer'U}/dL 0.2-1.0 [facility] Laboratory - Specimen inform ationon 11-13-2023 Appearance (U) CLEAR CLEAR [facility] Color (U) YELLOW YELLOW [facility] Laboratory - Urinalysison Leukocyte esterase Test strip Ql (U) Negative NEGATIVE [facility] Mucus Ql (Urine sed) SMALL Abnormal NONE SEEN [facility] Nitrite Ql (U) Negative NEGATIVE [facility] Protein (U) [Mass/Vol] 725.5 mg/dL High <=11.9 [facility] Protein Ql (U) >=300 mg/dL Abnormal NEG/TRACE [facility] Leukocytes [#/volume] correc kaykay for nucleated erythrocytes in Blood by Automated counon 11-13-2023 WBC corrected for nucl RBC Auto (Bld) [#/Vol] 11.8 10 3/uL High 4.0-11.0 [facility] MCH Auto (RBC) [Entitic mass ]on 11-13-2023 MCH (RBC) [Entitic mass] 30.4 pg 26.7-34.0 [facility] MCHC Auto (RBC) [Mass/Vol]on 11-13-2023 MCHC (RBC) [Mass/Vol] 33.4 g/dL 29.9-35.2 [facility] MCV Auto (RBC) [Entitic vol] on 11-13-2023 MCV (RBC) [Entitic vol] 91.0 fL 81.0-99.0 [facility] No Panel Informationon 11-12 Parathyroid Hormone (Intact) 25 pg/mL 15-65 [facility] Comment on above: Performed at: - [facility] [address] [id number] Director: Duke Peguero PhD, Phone: [phone] Phosphorus Level 3.8 mg/dL 2.6-4.7 [facility] Urine Bacteria SMALL #/HPF Abnormal NONE SEEN [facility] Urine Occult Blood MODERATE Abnormal NEGATIVE [facility] Urine Other Casts NONE SEEN #/LPF NONE SEEN [facility] Urine Other Crystals None Seen #/HPF None Seen [facility] Urine Random Creatinine 356.96 mg/dL High 20.0 0-300. 00 [facility] Urine RBC 2-5 #/HPF Abnormal 0-2 [facility] Urine Squamous Epithelial Cells MODERATE #/LPF Abnormal NONE/RARE [facility] Urine WBC 0-2 #/HPF Abnormal NONE SEEN [facility] Platelet mean volume Auto (B ld) [Entitic vol]on 11-13-2023 Platelet mean volume (Bld) [Entitic vol] 10.9 fL 9.5-13.5 [facility] Platelets Auto (Bld) [#/Vol] on 11-13-2023 Platelets (Bld) [#/Vol] 259 10 3/uL 150-450 [facility] RBC Auto (Bld) [#/Vol]on RBC (Bld) [#/Vol] 5.13 10 6/uL 4.20-5.40 [facility] Serum or plasma anion gap de terminationon 11-13-2023 Anion gap [Moles/Vol] 15.4 mmol/L [facility] Urine protein/creatinine rat ioon 11-13-2023 Protein/Creatinine (U) [Ratio] 2.03 [facility] XR lumbar spine 6V w bending on 09-30-2023 XR lumbar spine 6V w bending [facility] [place] [address] [place] [id number] XRay Report Signed Patient: Keya Ley MR#: [id number] : 1970 Acct:[id number] Age/Sex: 52 / F ADM Date: 09/30/23 Loc: XD Room: Type: [facility] Attending Dr: Jeovanny Mendes MD Copies to: Jeovanny Mendes MD Ordering Provider: Jeovanny Mendes MD Date of Service: 09/30/23 XR/XR lumbar spine 6V w bending: M54.50 - Low back pain, unspecified 6 views Lumbar Spinewith bending HISTORY: Low back pain with radiation to legs COMPARISON: 02/23/2020 POSTSURGICAL CHANGES: Stable hardware. No hardware failure. BONY ALIGNMENT: Straightening of lumbar lordosis HYPERMOBILITY:No hypermobility LISTHESIS:Similar mild degenerative listhesis FRACTURE: None DEGENERATIVE CHANGES: Similar multilevel degenerative change SOFT TISSUES: Unremarkable BONY MINERALIZATION:Adequate XR/XR lumbar spine 6V w bending IMPRESSION: Stable degenerative and postsurgical changes. No hypermobility. Impression dictated by: Jenaro Stockton M.D.09/30/2023 3:31 PM Dictation Location: [place] [address] Transcribed By: [facility] 09/30/23 1531 Dictated By: Jenaro Stockton DO 09/30/23 1530 Signed By: 09/30/23 1531 Normal [facility] Glucose Glucometer (BldC) [M ass/Vol]on 09-27-2023 Glucose [Mass/Vol] 170 mg/dL High 65-99 [facility] Glucose Glucometer (BldC) [M ass/Vol]on 08-09-2023 Glucose [Mass/Vol] 150 mg/dL High 65-99 [facility] BI MAMMOGRAM SCREENING TOMOS YNTHESIS BILATERALon [...] IS VERY IMPORTANT TO YOUR HEALTH. THE [employer] GUIDELINES RECOMMEND THAT WOMEN 40 [...] in LDL [Mass/Vol] 143 mg/dL High <130 [facility] Comment on above: Result Comment: LDL <100 mg/dL - Desirable LDL 130-159 mg/dL - Borderline High Risk LDL >160 mg/dL - High Risk Performed By: #### 2 [id number] #### [facility] ([id number]) [address], [address] [place] [address] POCT EKGOrdered By: Mary Kay Finley on 03-15-2023 [facility] US LOWER EXTREMITY VENO US DUPLEX LEFTon 01-28-2023 VAS US LOWER EXTREMITY VENOUS DUPLEX LEFT EXAM: VAS US LOWER EXTREMITY VENOUS DUPLEX LEFT TECHNIQUE: [...] BY: Dennis Maki, DO Normal Not Available Creatinine (Bld) [Mass/Vol]O rdered By: Peyton Hoskins on 07-25-2022 Creatinine [Mass/Vol] 1.0 mg/dL 0.6-1.3 [facility] Comment on above: ER/ESD physician is notified/shown all ISTAT results.Critical values may be confirmed by laboratory testing ifdeemed necessary by ER attending doctor. Creatinine [Mass/volume] in Serum or PlasmaOrdered By: Peyton Hoskins on 07-25-2022 Creatinine [Mass/Vol] 0.95 mg/dL 0.60-1.20 [facility] No Panel InformationOrdered By: cheri Hoskins on 07-25-2022 Estimated GFR (CKD-EPI) > 60.0 mL/Min [facility] Creatinine Clearance (Chem N/A [facility] Urea nitrogen [Mass/volume] in Serum or PlasmaOrdered By: Peyton Asacheri on 07-25-2022 Urea nitrogen [Mass/Vol] 17 mg/dL 7-25 [facility] CALCIUM 24 HR URINEon 2022 CALC, 24 HR UR 202.8 mg/24 hr Normal 100.0-300. 0 [facility] Comment on above: Performed By: #### C [id number] #### [facility] [address] [place] [address] Dr. Tyree Botello UR CALCIUM 15.6 mg/dL Normal 5.1-21.0 [facility] Comment on above: Performed By: #### C [id number] #### [facility] [address] [address] [address] Tyree Botello UR TOT VOL 1300 ml/24 HR Normal [facility] Comment on above: Performed By: #### C [id number] #### [facility] [address] [place] [address] [address] Tyree Botello MAGNESIUMon 07-18-2022 Magnesium [Mass/Vol] 1.4 mg/dL Critically low 1.8-2.4 [facility] Comment on above: Performed By: #### M G, RENAL, URIC #### [facility] [address] [place] [address] Dr. Tyree Botello RENAL FUNCTION PANELon 07-18 Albumin [Mass/Vol] 3.1 g/dL Critically low 3.4-5.0 [facility] Comment on above: Performed By: #### M G, RENAL, URIC #### [facility] [address] [place] [address] [address] Tyree Botello Calcium [Mass/Vol] 9.7 mg/dL Normal 8.5-10.1 [facility] Comment on above: Performed By: #### M G, RENAL, URIC #### [facility] [address] [address] [address] Tyree Botello Chloride [Moles/Vol] 102 mmol/L Normal 98-107 [facility] Comment on above: Performed By: #### M G, RENAL, URIC #### [facility] [address] [place] [address] Dr. Tyree Botello CO2 [Moles/Vol] 26.1 mmol/L Normal 21.0-32.0 [facility] Comment on above: Performed By: #### M G, RENAL, URIC #### [facility] [address] [place] [address] [address] Tyree Botello Creatinine [Mass/Vol] 1.13 mg/dL Critically high 0.55-1.02 [facility] Comment on above: Performed By: #### M G, RENAL, URIC #### [facility] [address] [place] [address] [address] Tyree Botello EGFR-AF TUNISIAN >60 Normal >=60 [facility] Comment on above: Performed By: #### M G, RENAL, URIC #### [facility] [address] [address] [address] Tyree Botello EGFR-NON AF TUNISIAN 51 mL/min/1.73m2 Critically low >=60 [facility] Comment on above: Performed By: #### M G, RENAL, URIC #### [facility] [address] [place] [address] [address] Tyree Botello Glucose [Mass/Vol] 355 mg/dL Critically high 74-106 [facility] Comment on above: Performed By: #### M G, RENAL, URIC #### [facility] [address] [place] [address] Dr. Tyree Botello Phosphate [Mass/Vol] 3.4 mg/dL Normal 2.6-4.7 [facility] Comment on above: Performed By: #### M G, RENAL, URIC #### [facility] [address] [place] [address] Dr. Tyree Botello Potassium [Moles/Vol] 4.3 mmol/L Normal 3.5-5.1 [facility] Comment on above: Performed By: #### M G, RENAL, URIC #### [facility] [address] [place] [address] Dr. Tyree Botello Sodium [Moles/Vol] 138 mmol/L Normal 136-145 [facility] Comment on above: Performed By: #### M G, RENAL, URIC #### [facility] [address] [place] [address] Dr. Tyree Botello Urea nitrogen [Mass/Vol] 16.0 mg/dL Normal 7.0-18.0 [facility] Comment on above: Performed By: #### M G, RENAL, URIC #### [facility] [address] [place] [address] Dr. Tyree Botello PTH INTACTon 07-03-2022 PTH, Intact 16 pg/mL Normal 15-65 [facility] Comment on above: Performed By: #### M G, RENAL, URIC #### [facility] [address] [place] [address] Dr. Tyree Botello HEMOGRAM AND PLATELon 2022 Hematocrit (Bld) [Volume fraction] 44.5 % Normal 36.0-48.0 [facility] Comment on above: Performed By: #### M G, RENAL, URIC #### [facility] [address] [place] [address] Dr. Tyree Botello Hemoglobin (Bld) [Mass/Vol] 15.0 g/dL Normal 12.0-16.0 [facility] Comment on above: Performed By: #### M G, RENAL, URIC #### [facility] [address] [address] [address] Tyree Botello MCH (RBC) [Entitic mass] 30.2 pg Normal 26.7-34.0 [facility] Comment on above: Performed By: #### M G, RENAL, URIC #### [facility] [address] [address] [address] Tyree Botello MCHC (RBC) [Mass/Vol] 33.7 g/dL Normal 29.9-35.2 [facility] Comment on above: Performed By: #### M G, RENAL, URIC #### [facility] [address] [address] [address] Tyree Botello MCV (RBC) [Entitic vol] 89.5 fL Normal 81.0-99.0 [facility] Comment on above: Performed By: #### M G, RENAL, URIC #### [facility] [address] [place] [address] Dr. Tyree Botello PLT 263 103/ul Normal 150-450 [facility] Comment on above: Performed By: #### M G, RENAL, URIC #### [facility] [address] [place] [address] Dr. Tyree Botello RBC 4.97 106/ul Normal 4.20-5.40 [facility] Comment on above: Performed By: #### M G, RENAL, URIC #### [facility] [address] [place] [address] Dr. Tyree Botello WBC 12.0 103/ul Critically high 4.0-11.0 [facility] Comment on above: Performed By: #### M G, RENAL, URIC #### [facility] [address] [place] [address] Dr. Tyree Botello MAGNESIUMon 07-02-2022 Magnesium [Mass/Vol] 1.2 mg/dL Critically low 1.8-2.4 [facility] Comment on above: Performed By: #### M G, RENAL, URIC #### [facility] [address] [address] [address] Tyree Botello RENAL FUNCTION PANELon 07-02 Albumin [Mass/Vol] 3.1 g/dL Critically low 3.4-5.0 [facility] e [facility] Comment on above: Performed By: #### M G, RENAL, URIC #### [facility] [address] [place] [address] Dr. Tyree Botello Calcium [Mass/Vol] 9.7 mg/dL Normal 8.5-10.1 [facility] Comment on above: Performed By: #### M G, RENAL, URIC #### [facility] [address] [place] [address] Dr. Tyree Botello Chloride [Moles/Vol] 104 mmol/L Normal 98-107 [facility] Comment on above: Performed By: #### M G, RENAL, URIC #### [facility] [address] [place] [address] Dr. Tyree Botello CO2 [Moles/Vol] 28.6 mmol/L Normal 21.0-32.0 [facility] Comment on above: Performed By: #### M G, RENAL, URIC #### [facility] [address] [place] [address] Dr. Tyree Botello Creatinine [Mass/Vol] 0.95 mg/dL Normal 0.55-1.02 [facility] Comment on above: Performed By: #### M G, RENAL, URIC #### [facility] [address] [place] [address] Dr. Tyree Botello EGFR-AF TUNISIAN >60 Normal >=60 [facility] Comment on above: Performed By: #### M G, RENAL, URIC #### [facility] [address] [place] [address] Dr. Tyree Botello EGFR-NON AF TUNISIAN >60 Normal >=60 [facility] Comment on above: Performed By: #### M G, RENAL, URIC #### [facility] [address] [place] [address] Dr. Tyree Botello Glucose [Mass/Vol] 148 mg/dL Critically high 74-106 [facility] Comment on above: Performed By: #### M G, RENAL, URIC #### [facility] [address] [place] [address] Dr. Tyree Botello Phosphate [Mass/Vol] 3.6 mg/dL Normal 2.6-4.7 [facility] Comment on above: Performed By: #### M G, RENAL, URIC #### [facility] [address] [place] [address] Dr. Tyree Botello Potassium [Moles/Vol] 4.2 mmol/L Normal 3.5-5.1 [facility] Comment on above: Performed By: #### M G, RENAL, URIC #### [facility] [address] [place] [address] Dr. Tyree Botello Sodium [Moles/Vol] 143 mmol/L Normal 136-145 [facility] Comment on above: Performed By: #### M G, RENAL, URIC #### [facility] [address] [place] [address] Dr. Tyree Botello Urea nitrogen [Mass/Vol] 14.0 mg/dL Normal 7.0-18.0 [facility] Comment on above: Performed By: #### M G, RENAL, URIC #### [facility] [address] [place] [address] Dr. Tyree Botello UA RANDOM W/MICROSCOPICon BACTERIA NONE SEEN Normal NONE SEEN [facility] Comment on above: Performed By: #### M G, RENAL, URIC #### [facility] [address] [place] [address] Dr. Tyree Botello Bilirubin Ql (U) Negative Normal NEGATIVE [facility] Comment on above: Performed By: #### M G, RENAL, URIC #### [facility] [address] [place] [address] Dr. Tyree Botello CAST SEEN Abnormal NONE SEEN [facility] Comment on above: Performed By: #### M G, RENAL, URIC #### [facility] [address] [place] [address] Dr. Tyree Botello Clarity (U) CLEAR Normal CLEAR [facility] Comment on above: Performed By: #### M G, RENAL, URIC #### [facility] [address] [place] [address] Dr. Tyree Botello Color (U) LT. YELLOW Normal YELLOW [facility] Comment on above: Performed By: #### M G, RENAL, URIC #### [facility] [address] [address] [address] Tyree Botello Crystals LM Nom (Urine sed) NONE SEEN Normal NONE SEEN [facility] Comment on above: Performed By: #### M G, RENAL, URIC #### [facility] [address] [address] [address] Tyree Botello Epithelial cells LM Ql (Urine sed) FEW Abnormal NONE SEEN /RARE [facility] Comment on above: Performed By: #### M G, RENAL, URIC #### [facility] [address] [place] [address] Dr. Tyree Botello Glucose Ql (U) Negative Normal NEGATIVE [facility] Comment on above: Performed By: #### M G, RENAL, URIC #### [facility] [address] [place] [address] Dr. Tyree Botello Hemoglobin Ql (U) SMALL Abnormal NEGATIVE [facility] Comment on above: Performed By: #### M G, RENAL, URIC #### [facility] [address] [place] [address] Dr. Tyree Botello Ketones Ql (U) Negative Normal NEGATIVE [facility] Comment on above: Performed By: #### M G, RENAL, URIC #### [facility] [address] [place] [address] Dr. Tyree Botello LEUKOCYTES Negative Normal NEGATIVE [facility] Comment on above: Performed By: #### M G, RENAL, URIC #### [facility] [address] [address] [address] Tyree Botello MUCOUS NONE SEEN Normal NONE SEEN [facility] Comment on above: Performed By: #### M G, RENAL, URIC #### [facility] [address] [address] [address] Tyree Botello Nitrite Ql (U) Negative Normal NEGATIVE [facility] Comment on above: Performed By: #### M G, RENAL, URIC #### [facility] [address] [place] [address] Dr. Tyree Botello pH (U) 5.0 [pH] Normal 5-9 [facility] Comment on above: Performed By: #### M G, RENAL, URIC #### [facility] [address] [place] [address] Dr. Tyree Botello RBC 0-2 Normal 0-2 [facility] Comment on above: Performed By: #### M G, RENAL, URIC #### [facility] [address] [place] [address] Dr. Tyree Botello SPEC GRAVITY >=1.030 Abnormal 1.005-<=1. 025 [facility] Comment on above: Performed By: #### M G, RENAL, URIC #### [facility] [address] [place] [address] Dr. Tyree Botello UA PROTEIN >300 Abnormal NEGATIVE/ TRACE [facility] Comment on above: Performed By: #### M G, RENAL, URIC #### [facility] [address] [place] [address] Dr. Tyree Botello Urobilinogen Qn (U) 0.2 {Jennifer'U}/dL Normal 0.2 - 1. 0 [facility] Comment on above: Performed By: #### M G, RENAL, URIC #### [facility] [address] [place] [address] Dr. Tyree Botello WBC 0-2 Abnormal NONE SEEN [facility] Comment on above: Performed By: #### M G, RENAL, URIC #### [facility] [address] [place] [address] Dr. Tyree Botello URIC ACID SERUMon 07-02-2022 Urate [Mass/Vol] 5.8 mg/dL Normal 2.6-6.0 [facility] Comment on above: Performed By: #### M G, RENAL, URIC #### [facility] [address] [place] [address] Dr. Tyree Botello VITAMIN D 25 OHon 07-02-2022 VIT D 25-OH 39.2 ng/mL Normal [facility] Comment on above: Performed By: #### M G, RENAL, URIC #### [facility] [address] [address] [address] Tyree Botello VIT D RANGES SEE BELOW Normal [facility] Comment on above: Result Comment: <20 ng/mL Vit D deficient 20 - <30 ng/mL Vit D insufficient 30 - 100 ng/mL Vit D sufficient >100 ng/mL Potential Toxicity Performed By: #### M G, RENAL, URIC #### [facility] [address] [place], [place] [address] Dr. Tyree Botello Albumin [Mass/volume] in Bod y fluidOrdered By: Isela Downs on 04-27-2022 Albumin (Body fld) [Mass/Vol] 3.6 g/dL 3.2-5.5 [facility] Albumin [Mass/volume] in Ser um or PlasmaOrdered By: Isela Downs on 04-27-2022 Albumin [Mass/Vol] 3.4 g/dL 2.9-4.4 [facility] Albumin/Protein.total in 24 hour Urine by ElectrophoresisOrdered By: Isela Downs on 04-27-2022 Albumin Elph (24H U) [Mass fraction] 77.3 % . [facility] Alkaline phosphatase [Enzyma tic activity/volume] in Serum or PlasmaOrdered By: Isela Downs on 04-27-2022 ALP [Catalytic activity/Vol] 57 U/L 32-92 [facility] Aspartate aminotransferase [ Enzymatic activity/volume] in Serum or PlasmaOrdered By: Isela Downs on 04-27-2022 AST [Catalytic activity/Vol] 26 U/L 10-42 [facility] Basophils Auto (Bld) [#/Vol] Ordered By: Isela Downs on 04-27-2022 Basophils (Bld) [#/Vol] 0.1 10*3/uL 0.0-0.2 [facility] Basophils/100 WBC Auto (Bld) Ordered By: Isela Downs on 04-27-2022 Basophils/100 WBC (Bld) 0.9 % . [facility] Bilirubin.total [Mass/volume ] in Serum or PlasmaOrdered By: Isela Downs on 04-27-2022 Bilirubin [Mass/Vol] 0.4 mg/dL 0.3-1.2 [facility] Calcium [Mass/volume] in Ser um or PlasmaOrdered By: Isela Downs on 04-27-2022 Calcium [Mass/Vol] 9.6 mg/dL 8.2-10.2 [facility] Carbon dioxide, total [Moles /volume] in Serum or PlasmaOrdered By: Isela Downs on 04-27-2022 CO2 [Moles/Vol] 20.1 mmol/L 22.0-30.0 [facility] Chloride [Moles/volume] in S mary ann or PlasmaOrdered By: Isela Downs on 04-27-2022 Chloride [Moles/Vol] 101 mmol/L 95-114 [facility] Creatinine and Glomerular fi ltration rate.predicted panel (S/P/Bld)Ordered By: Isela Downs on 04-27-2022 Creatinine [Mass/Vol] 0.90 mg/dL 0.44-1.03 [facility] Eosinophils Auto (Bld) [#/Vo l]Ordered By: Isela Downs on 04-27-2022 Eosinophils (Bld) [#/Vol] 0.2 10*3/uL 0.0-0.45 [facility] Eosinophils/100 WBC Auto (Bl d)Ordered By: Isela Downs on 04-27-2022 Eosinophils/100 WBC (Bld) 1.5 % . [facility] Erythrocyte distribution wid th Auto (RBC) [Ratio]Ordered By: Isela Downs on 04-27-2022 Erythrocyte distribution width (RBC) [Ratio] 13.3 % 11.9-15.3 [facility] Estimated glomerular filtrat ion rate (GFR) non- AmericanOrdered By: Isela Downs on 04-27-2022 GFR/1.73 sq M.predicted among non-blacks MDRD (S/P/Bld) [Vol rate/Area] > 60 mL/Min [facility] Gamma globulin/Protein.total in 24 hour Urine by ElectrophoresisOrdered By: Isela Downs on 04-27-2022 Gamma globulin Elph (24H U) [Mass fraction] 3.7 % . [facility] Globulin Calc (S) [Mass/Vol] Ordered By: Isela Downs on 04-27-2022 Globulin (S) [Mass/Vol] 3.3 g/dL [facility] Glucose [Mass/volume] in Ser um or PlasmaOrdered By: Isela Downs on 04-27-2022 Glucose [Mass/Vol] 327 mg/dL 70-100 [facility] Comment on above: ADA recommended refe rence rangeRandom Glucose Reference Range is dependent on time and content of last meal. Glucose of more than 200 mg/dL in a nonstressed, ambulatory subject supports the diagnosis of Diabetes Mellitus. Hematocrit Auto (Bld) [Volum e fraction]Ordered By: Isela Downs on 04-27-2022 Hematocrit (Bld) [Volume fraction] 45.4 % 34.0-46.4 [facility] Hemoglobin [Mass/volume] in BloodOrdered By: Isela Downs on 04-27-2022 Hemoglobin (Bld) [Mass/Vol] 15.2 g/dL 11.8-15.4 [facility] Immunoglobulin light chains. kappa.free [Mass/volume] in SerumOrdered By: Isela Downs on 04-27-2022 Immunoglobulin light chains.kappa.free (S) [Mass/Vol] 25.4 mg/L 3.3-19.4 [facility] Immunoglobulin light chains. kappa.free/Immunoglobulin light chains.lambda.free [MassOrdered By: Isela Downs on 04-27-2022 Immunoglobulin light chains.kappa.free/Immuno globulin light chains.lambda.free (S) [Mass ratio] 1.62 0.26-1.65 [facility] Comment on above: Performed at: [place] [id number] Director: Duke Peguero PhD, Phone: [phone] Immunoglobulin light chains. lambda.free [Mass/volume] in Serum or PlasmaOrdered By: Isela Downs on 04-27-2022 Immunoglobulin light chains.lambda.free [Mass/Vol] 15.7 mg/L 5.7-26.3 [facility] Leukocytes [#/volume] correc kaykay for nucleated erythrocytes in Blood by Automated counOrdered By: Isela Downs on 04-27-2022 WBC corrected for nucl RBC Auto (Bld) [#/Vol] 11.3 10*3/uL 3.8-11.6 [facility] Lymphocytes Auto (Bld) [#/Vo l]Ordered By: Isela Downs on 04-27-2022 Lymphocytes (Bld) [#/Vol] 3.6 10*3/uL 1.00-4.8 [facility] Lymphocytes/100 WBC Auto (Bl d)Ordered By: Isela Downs on 04-27-2022 Lymphocytes/100 WBC (Bld) 31.7 % . [facility] MCH Auto (RBC) [Entitic mass ]Ordered By: Isela Downs on 04-27-2022 MCH (RBC) [Entitic mass] 30.0 pg 24.7-34.3 [facility] MCHC Auto (RBC) [Mass/Vol]Or dered By: Isela Downs on 04-27-2022 MCHC (RBC) [Mass/Vol] 33.5 g/dL 32.0-35.0 [facility] MCV Auto (RBC) [Entitic vol] Ordered By: Isela Downs on 04-27-2022 MCV (RBC) [Entitic vol] 89.6 fL 80-100 [facility] Monocytes Auto (Bld) [#/Vol] Ordered By: Isela Downs on 04-27-2022 Monocytes (Bld) [#/Vol] 0.5 10*3/uL 0.0-0.8 [facility] Monocytes/100 WBC Auto (Bld) Ordered By: Isela Downs on 04-27-2022 Monocytes/100 WBC (Bld) 4.8 % . [facility] Neutrophils Auto (Bld) [#/Vo l]Ordered By: Isela Downs on 04-27-2022 Neutrophils (Bld) [#/Vol] 6.9 10*3/uL 1.8-7.7 [facility] Neutrophils/100 WBC Auto (Bl d)Ordered By: Isela Downs on 04-27-2022 Neutrophils/100 WBC (Bld) 61.1 % . [facility] No Panel InformationOrdered By: Isela Downs on 04-27-2022 Urine Random Prot Electrophor Note See comment . [facility] Comment on above: Protein electrophore sis scan will follow via computer,mail, or accounts payable or receivable clerk delivery.Performed at: [address] [id number] Director: Duke Peguero PhD, Phone: [phone] Estimated GFR () > 60 mL/Min [facility] Comment on above: GFR estimated refere nce range: According to KDOQI guidelines, <60 ml/min/1.73m2 is sufficient to diagnose a patient with chronic kidney disease. Pharmacy Creatinine Clearance (Chem 83.02 [facility] Protein Electrophoresis M-Sarthak Not observed g/dL Not Observed [facility] Protein Electrophoresis Note See comment . [facility] Comment on above: Protein electrophore sis scan will follow via computer,mail, or accounts payable or receivable clerk delivery.Performed at: [facility] [id number] Director: Duke Peguero PhD, Phone: [phone] Nucleated erythrocytes [Pres ence] in Blood by Automated countOrdered By: Isela Downs on 04-27-2022 Nucleated RBC Auto Ql (Bld) 0.1 /100{WBC} 0-0.5 [facility] Platelet mean volume Auto (B ld) [Entitic vol]Ordered By: Isela Downs on 04-27-2022 Platelet mean volume (Bld) [Entitic vol] 9.5 fL 6.3-10.7 [facility] Platelets Auto (Bld) [#/Vol] Ordered By: Isela Downs on 04-27-2022 Platelets (Bld) [#/Vol] 257 10*3/uL 150-450 [facility] Potassium [Moles/volume] in Serum or PlasmaOrdered By: Isela Downs on 04-27-2022 Potassium [Moles/Vol] 4.3 mmol/L 3.5-5.1 [facility] Protein [Mass/volume] in Ser um or PlasmaOrdered By: Isela Downs on 04-27-2022 Protein [Mass/Vol] 6.9 g/dL 6.1-7.9 [facility] Protein [Mass/Vol] 6.8 g/dL 6.0-8.5 [facility] Protein [Mass/volume] in Uri neOrdered By: Isela Downs on 04-27-2022 Protein (U) [Mass/Vol] 183.6 mg/dL Not Estab. [facility] Protein.monoclonal/Protein.t otal in 24 hour Urine by ElectrophoresisOrdered By: Isela Downs on 04-27-2022 Protein.monoclonal Elph (24H U) [Mass fraction] Not observed % Not Observed [facility] RBC Auto (Bld) [#/Vol]Ordere d By: Isela Downs on 04-27-2022 RBC (Bld) [#/Vol] 5.07 10*6/uL 3.60-5.00 [facility] Serum globulin measurement ( mass/volume)Ordered By: Isela Downs on 04-27-2022 Globulin (S) [Mass/Vol] 3.4 g/dL 2.2-3.9 [facility] Serum or plasma alanine barroso otransferase measurement without P-5'-P (enzymatic activiOrdered By: Isela Downs on 04-27-2022 ALT No additional P-5'-P [Catalytic activity/Vol] 36 U/L 10-60 [facility] Serum or plasma albumin/glob ulin mass ratioOrdered By: Isela Downs on 04-27-2022 Albumin/Globulin [Mass ratio] 1.1 {ratio} [facility] Albumin/Globulin [Mass ratio] 1.0 {ratio} 0.7-1.7 [facility] Serum or plasma alpha 1 glob ulin measurement by electrophoresis (mass/volume)Ordered By: Isela Downs on 04-27-2022 Alpha 1 globulin Elph [Mass/Vol] 0.3 g/dL 0.0-0.4 [facility] Serum or plasma alpha 2 glob ulin measurement by electrophoresis (mass/volume)Ordered By: Isela Downs on 04-27-2022 Alpha 2 globulin Elph [Mass/Vol] 1.6 g/dL 0.4-1.0 [facility] Serum or plasma anion gap de terminationOrdered By: Isela Downs on 04-27-2022 Anion gap [Moles/Vol] 18.2 mmol/L 6.0-15.0 [facility] Serum or plasma beta globuli n measurement by electrophoresis (mass/volume)Ordered By: Isela Downs on 04-27-2022 Beta globulin Elph [Mass/Vol] 1.1 g/dL 0.7-1.3 [facility] Serum or plasma [id number] globulin measurement (mass/volume)Ordered By: Isela Downs on 04-27-2022 Tqni-3-Azqtlmesvyziv [Mass/Vol] 1.9 ug/mL 0.6-2.4 [facility] Comment on above: Siemens Immulite 200 0 Immunochemiluminometric assay (ICMA)Values obtained with different assay methods or kits cannotbe used interchangeably. Results cannot be interpreted asabsolute evidence of the presence or absence of malignantdisease.Performed at: [facility] [id number] Director: Loni Olvera MD, Phone: [phone] Serum or plasma gamma globul in measurement by electrophoresis (mass/volume)Ordered By: Isela Downs on 04-27-2022 Gamma globulin Elph [Mass/Vol] 0.5 g/dL 0.4-1.8 [facility] Sodium [Moles/volume] in Ser um or PlasmaOrdered By: Isela Downs on 04-27-2022 Sodium [Moles/Vol] 135 mmol/L 136-146 [facility] Urea nitrogen [Mass/volume] in Serum or PlasmaOrdered By: Isela Downs on 04-27-2022 Urea nitrogen [Mass/Vol] 14 mg/dL 9-23 [facility] Urine alpha 1 globulin/total protein by electrophoresisOrdered By: Isela Downs on 04-27-2022 Alpha 1 globulin Elph (U) [Mass fraction] 2.6 % . [facility] Urine alpha 2 globulin/total protein ratio by electrophoresisOrdered By: Isela Downs on 04-27-2022 Alpha 2 globulin Elph (U) [Mass fraction] 4.2 % . [facility] Urine beta globulin measurem ent by electrophoresis (mass/volume)Ordered By: Isela Downs on 04-27-2022 Beta globulin Elph (U) [Mass/Vol] 12.2 % . [facility] WBC Auto (Bld) [#/Vol]Ordere d By: Isela Downs on 04-27-2022 WBC (Bld) [#/Vol] 11.3 10*3/uL 3.8-11.6 [facility] PARATHYROID HORMONE- RELATED PEPTIDEon 04-20-2022 PTHrP (PTH-Related Peptide) <2.0 Normal [facility] Comment on above: Result Comment: This test was developed and its performance characteristics determined by [facility]. It has not been cleared or approved [...] By: #### M G, RENAL, URIC #### [facility] [address] [place] [address] Dr. Tyree Botello IMMUNOFIXATION (CHERRI), URINEo n 04-16-2022 CHERRI Interpretation:U Comment Normal [facility] Comment on above: Result Comment: No m onoclonality detected. Performed By: #### M G, RENAL, URIC #### [facility] [address] [place] [address] Dr. Tyree Botello PROTEIN ELECTROPHERESIS URIN E RANDOMon 04-16-2022 Albumin, U 80.3 % Normal [facility] Comment on above: Performed By: #### M G, RENAL, URIC #### [facility] [address] [place] [address] Dr. Tyree Botello Alpha-1 Globulin U 4.3 % Normal [facility] Comment on above: Performed By: #### M G, RENAL, URIC #### [facility] [address] [place] [address] Dr. Tyree Botello Alpha-2 Glubulin U 2.9 % Normal [facility] Comment on above: Performed By: #### M G, RENAL, URIC #### [facility] [address] [place] [address] Dr. Tyree Botello Beta Globulin, U 10.2 % Normal [facility] Comment on above: Performed By: #### M G, RENAL, URIC #### [facility] [address] [place] [address] Dr. Tryee Botello Gamma Globulin U 2.2 % Normal [facility] Comment on above: Performed By: #### M G, RENAL, URIC #### [facility] [address] [place] [address] Dr. Tyree Botello M-Sarthak, % Not Observed Normal Not Observed [facility] Comment on above: Performed By: #### M G, RENAL, URIC #### [facility] [address] [place] [address] Dr. Tyree Botello PDF . Normal [facility] Comment on above: Performed By: #### M G, RENAL, URIC #### [facility] [address] [place] [address] Dr. Tyree Botlelo Please note: Comment Normal [facility] Comment on above: Result Comment: Prot ein electrophoresis scan will follow via computer, mail, or accounts payable or receivable clerk delivery. Performed By: #### M G, RENAL, URIC #### [facility] [address] [place] [address] Dr. Tyree Botello Protein (U) [Mass/Vol] 181.5 mg/dL Normal Not Estab. T [facility] Comment on above: Performed By: #### M G, RENAL, URIC #### [facility] [address] [place] [address] Dr. Tyree Botello VIT D 1 25 DIHYDROXYon 04-14 Calcitriol(1,25 di-OH Vit D) 12.5 pg/mL Critically low 24.8-81.5 [facility] Comment on above: Performed By: #### M G, RENAL, URIC #### [facility] [address] [place] [address] Dr. Tyree Botello IMMUNOFIXATION(CHERRI),PROTEIN ELEC(PE),FREon 04-13-2022 Albumin [Mass/Vol] 3.5 g/dL Normal 2.9-4.4 [facility] Comment on above: Performed By: #### I FEPEFL #### [facility] [address] [place] [address] Dr. Tyree Botello Albumin/Globulin [Mass ratio] 1.1 {ratio} Normal 0.7-1.7 [facility] Comment on above: Performed By: #### I FEPEFL #### [facility] [address] [place] [address] Dr. Tyree Botello Cbnmh-7-Sjpzmobp 0.2 g/dL Normal 0.0-0.4 [facility] Comment on above: Performed By: #### I FEPEFL #### [facility] [address] [place] [address] Dr. Tyree Botello Otnjr-4-Csenfpse 1.5 g/dL Critically high 0.4-1.0 [facility] Comment on above: Performed By: #### I FEPEFL #### [facility] [address] [place] [address] Dr. Tyree Botello Beta Globulin 1.3 g/dL Normal 0.7-1.3 [facility] Comment on above: Performed By: #### I FEPEFL #### [facility] [address] [place] [address] Dr. Tyree Botello Free [place] Lt Chains,S 25.5 mg/L Critically high 3.3-19.4 [facility] Comment on above: Performed By: #### I FEPEFL #### [facility] [address] [place] [address] Dr. Tyree Botello Free Lambda Lt Chains,S 15.9 mg/L Normal 5.7-26.3 [facility] Comment on above: Performed By: #### I FEPEFL #### [facility] [address] [place] [address] Dr. Tyree Botello Gamma Globulin 0.5 g/dL Normal 0.4-1.8 [facility] Comment on above: Performed By: #### I FEPEFL #### [facility] [address] [place] [address] Dr. Tyree Botello Globulin (S) [Mass/Vol] 3.5 g/dL Normal 2.2-3.9 [facility] Comment on above: Performed By: #### I FEPEFL #### [facility] [address] [place] [address] Dr. Tyree Botello Immunofixation Result, Serum Comment: Normal [facility] Comment on above: Result Comment: Pres ence of monoclonal protein is unclear at this time. Suggest repeat in 3 to 6 months if clinically indicated. Performed By: #### I FEPEFL #### [facility] [address] [place] [address] [address] Tyree Botello Immunoglobulin A, Qn, Serum 266 mg/dL Normal 87-352 [facility] Comment on above: Performed By: #### I FEPEFL #### [facility] [address] [place] [address] [address] Tyree Botello Immunoglobulin G, Qn, Serum 517 mg/dL Critically low 586-1602 [facility] Comment on above: Performed By: #### I FEPEFL #### [facility] [address] [place] [address] [address] Tyree Botello Immunoglobulin M, Qn, Serum 118 mg/dL Normal 26-217 [facility] Comment on above: Performed By: #### I FEPEFL #### [facility] [address] [place] [address] [address] Tyree Botello [place]/Lambda Ratio, S 1.60 Normal 0.26-1.65 [facility] Comment on above: Performed By: #### I FEPEFL #### [facility] [address] [place] [address] [address] Tyree Botello M-Sarthak Not Observed Normal Not Observed [facility] Comment on above: Performed By: #### I FEPEFL #### [facility] [address] [place] [address] [address] Tyree Botello PDF . Normal [facility] Comment on above: Performed By: #### I FEPEFL #### [facility] [address] [place] [address] [address] Tyree Botello Please note: Comment Normal [facility] Comment on above: Result Comment: Prot ein electrophoresis scan will follow via computer, mail, or accounts payable or receivable clerk delivery. Performed By: #### I FEPEFL #### [facility] [address] [place] [address] [address] Tyree Botello Protein [Mass/Vol] 7.0 g/dL Normal 6.0-8.5 [facility] Comment on above: Performed By: #### I FEPEFL #### [facility] [address] [place] [address] Dr. Tyree Botello PTH INTACTon 04-06-2022 PTH, Intact 9 pg/mL Critically low 15-65 [facility] Comment on above: Performed By: #### P THINT #### [facility] [address] [place] [address] Dr. Tyree Botello HEMOGRAM AND PLATELon 2022 Hematocrit (Bld) [Volume fraction] 51.5 % Critically high 36.0-48.0 [facility] Comment on above: Performed By: #### M G, RENAL, URIC #### [facility] [address] [place] [address] Dr. Tyree Botello Hemoglobin (Bld) [Mass/Vol] 16.2 g/dL Critically high 12.0-16.0 [facility] Comment on above: Performed By: #### M G, RENAL, URIC #### [facility] [address] [place] [address] Dr. Tyree Botello MCH (RBC) [Entitic mass] 30.1 pg Normal 26.7-34.0 [facility] Comment on above: Performed By: #### M G, RENAL, URIC #### [facility] [address] [place] [address] Dr. Tyree Botello MCHC (RBC) [Mass/Vol] 31.5 g/dL Normal 29.9-35.2 [facility] Comment on above: Performed By: #### M G, RENAL, URIC #### [facility] [address] [place] [address] Dr. Tyree Botello MCV (RBC) [Entitic vol] 95.7 fL Normal 81.0-99.0 [facility] Comment on above: Performed By: #### M G, RENAL, URIC #### [facility] [address] [place] [address] Dr. Tyree Botello PLT 280 103/ul Normal 150-450 [facility] Comment on above: Performed By: #### M G, RENAL, URIC #### [facility] [address] [place] [address] [address] Tyree Botello RBC 5.38 106/ul Normal 4.20-5.40 [facility] Comment on above: Performed By: #### M G, RENAL, URIC #### [facility] [address] [place] [address] [address] Tyree Botello WBC 11.7 103/ul Critically high 4.0-11.0 [facility] Comment on above: Performed By: #### M G, RENAL, URIC #### [facility] [address] [place] [address] [address] Tyree Botello MAGNESIUMon 04-05-2022 Magnesium [Mass/Vol] 1.1 mg/dL Critically low 1.8-2.4 [facility] Comment on above: Performed By: #### M G, URIC, RENAL #### [facility] [address] [place] [address] Dr. Tyree Botello RENAL FUNCTION PANELon 04-05 Albumin [Mass/Vol] 3.5 g/dL Normal 3.4-5.0 [facility] Comment on above: Performed By: #### M G, URIC, RENAL #### [facility] [address] [place] [address] Dr. Tyree Botello Calcium [Mass/Vol] 11.5 mg/dL Critically high 8.5-10.1 [facility] Comment on above: Performed By: #### M G, URIC, RENAL #### [facility] [address] [place] [address] Dr. Tyree Botello Chloride [Moles/Vol] 95 mmol/L Critically low 98-107 [facility] Comment on above: Performed By: #### M G, URIC, RENAL #### [facility] [address] [place] [address] Dr. Tyree Botello CO2 [Moles/Vol] 28.3 mmol/L Normal 21.0-32.0 [facility] Comment on above: Performed By: #### M G, URIC, RENAL #### [facility] [address] [address] [address] Tyree Botello Creatinine [Mass/Vol] 1.17 mg/dL Critically high 0.55-1.02 [facility] Comment on above: Performed By: #### M G, URIC, RENAL #### [facility] [address] [address] [address] Tyree Botello EGFR-AF TUNISIAN 59 mL/min/1.73m2 Critically low >=60 [facility] Comment on above: Performed By: #### M G, URIC, RENAL #### [facility] [address] [address] [address] Tyree Botello EGFR-NON AF TUNISIAN 49 mL/min/1.73m2 Critically low >=60 [facility] Comment on above: Performed By: #### M G, URIC, RENAL #### [facility] [address] [place] [address] Dr. Tyree Botello Glucose [Mass/Vol] 229 mg/dL Critically high 74-106 T [facility] Comment on above: Performed By: #### M G, URIC, RENAL #### [facility] [address] [address] [address] Tyree Botello Phosphate [Mass/Vol] 3.0 mg/dL Normal 2.6-4.7 [facility] Comment on above: Performed By: #### M G, URIC, RENAL #### [facility] [address] [place] [address] Dr. Tyree Botello Potassium [Moles/Vol] 3.5 mmol/L Normal 3.5-5.1 [facility] Comment on above: Performed By: #### M G, URIC, RENAL #### [facility] [address] [address] [address] Tyree Botello Sodium [Moles/Vol] 136 mmol/L Normal 136-145 [facility] Comment on above: Performed By: #### M G, URIC, RENAL #### [facility] [address] [address] [address] Tyree Botello Urea nitrogen [Mass/Vol] 20.0 mg/dL Critically high 7.0-18 .0 [facility] Comment on above: Performed By: #### M G, URIC, RENAL #### [facility] [address] [place] [address] Dr. Tyree Botello UA RANDOM W/MICROSCOPICon BACTERIA TRACE Abnormal NONE SEEN [facility] Comment on above: Performed By: #### U AMIC #### [facility] [address] [place] [address] Dr. Tyree Botello Bilirubin Ql (U) SMALL Abnormal NEGATIVE [facility] Comment on above: Performed By: #### U AMIC #### [facility] [address] [place] [address] Dr. Tyree Botello CAST SEEN Abnormal NONE SEEN [facility] Comment on above: Performed By: #### U AMIC #### [facility] [address] [place] [address] Dr. Tyree Botello Clarity (U) CLEAR Normal CLEAR [facility] Comment on above: Performed By: #### U AMIC #### [facility] [address] [place] [address] Dr. Tyree Botello Color (U) YELLOW Normal YELLOW [facility] Comment on above: Performed By: #### U AMIC #### [facility] [address] [place] [address] Dr. Tyree Botello Crystals LM Nom (Urine sed) NONE SEEN Normal NONE SEEN [facility] Comment on above: Performed By: #### U AMIC #### [facility] [address] [place] [address] Dr. Tyree Botello Epithelial cells LM Ql (Urine sed) MODERATE Abnormal NONE SEEN /RARE [facility] Comment on above: Performed By: #### U AMIC #### [facility] [address] [place] [address] Dr. Tyree Botello Glucose Ql (U) 500 mg/dl Abnormal NEGATIVE [facility] Comment on above: Performed By: #### U AMIC #### [facility] [address] [place] [address] Dr. Tyree Btoello Hemoglobin Ql (U) MODERATE Abnormal NEGATIVE [facility] Comment on above: Performed By: #### U AMIC #### [facility] [address] [address] [address] Tyree Botello HYALINE CAST FEW Normal [facility] Comment on above: Performed By: #### U AMIC #### [facility] [address] [address] [address] Tyree Botello Ketones Ql (U) TRACE Abnormal NEGATIVE [facility] Comment on above: Performed By: #### U AMIC #### [facility] [address] [address] [address] Tyree Botello LEUKOCYTES Negative Normal NEGATIVE [facility] Comment on above: Performed By: #### U AMIC #### [facility] [address] [address] [address] Tyree Botello MUCOUS NONE SEEN Normal NONE SEEN [facility] Comment on above: Performed By: #### U AMIC #### [facility] [address] [address] [address] Tyree Botello Nitrite Ql (U) Negative Normal NEGATIVE [facility] Comment on above: Performed By: #### U AMIC #### [facility] [address] [address] [address] Tyree Botello pH (U) 5.5 [pH] Normal 5-9 [facility] Comment on above: Performed By: #### U AMIC #### [facility] [address] [place] [address] Dr. Tyree Botello RBC 2-5 Abnormal 0-2 [facility] Comment on above: Performed By: #### U AMIC #### [facility] [address] [place] [address] Dr. Tyree Botello SPEC GRAVITY >=1.030 Abnormal 1.005-<=1. 025 [facility] Comment on above: Performed By: #### U AMIC #### [facility] [address] [place] [address] Dr. Tyree Botello UA PROTEIN >300 Abnormal NEGATIVE/ TRACE [facility] Comment on above: Performed By: #### U AMIC #### [facility] [address] [place] [address] Dr. Tyree Botello Urobilinogen Qn (U) 0.2 {Jennifer'U}/dL Normal 0.2 - 1. 0 [facility] Comment on above: Performed By: #### U AMIC #### [facility] [address] [place] [address] Dr. Tyree Botello WBC 2-5 Abnormal NONE SEEN [facility] Comment on above: Performed By: #### U AMIC #### [facility] [address] [address] [address] Tyree Botello URIC ACID SERUMon 04-05-2022 Urate [Mass/Vol] 8.0 mg/dL Critically high 2.6-6.0 [facility] Comment on above: Performed By: #### M G, URIC, RENAL #### [facility] [address] [place] [address] Dr. Tyree Botello URINE T PROTEIN CREAT RATIOo n 04-05-2022 UR PROT CREAT RAT 0.66 Normal [facility] Comment on above: Performed By: #### M G, RENAL, URIC #### [facility] [address] [place] [address] Dr. Tyree Botello UR TOTAL PROTEIN >200.0 Critically high <=12.0 [facility] Comment on above: Performed By: #### M G, RENAL, URIC #### [facility] [address] [place] [address] Dr. Tyree Botello URINE CREAT 304.32 mg/dL Critically high 20.00-300. 00 [facility] Comment on above: Performed By: #### M G, RENAL, URIC #### [facility] [address] [place] [address] Dr. Tyree Botello VITAMIN D 25 OHon 04-05-2022 VIT D 25-OH 49.7 ng/mL Normal [facility] Comment on above: Performed By: #### M G, RENAL, URIC #### [facility] [address] [place] [address] Dr. Tyree Botello VIT D RANGES SEE BELOW Normal [facility] Comment on above: Result Comment: <20 ng/mL Vit D deficient 20 - <30 ng/mL Vit D insufficient 30 - 100 ng/mL Vit D sufficient >100 ng/mL Potential Toxicity Performed By: #### M G, RENAL, URIC #### [facility] [address] [place], [place] [id number] Dr. Tyree Botello SCREENING MAMMOGRAM W/CHASE, BILATERAL*on [...] VERY IMPORTANT TO YOUR HEALTH. THE CURRENT [employer] OF [employer] AND [employer]ATIONAL [employer]PREHENSIVE [employer] NETWORK GUIDELINES RECOMMENDS ANNUAL MAMMOGRAPHY BEGINNING AT AGE 40 THIS FACILITY USES A REMINDER SYSTEM TO ENSURE ALL PATIENTS RECEIVE REMINDER NOTIFICATIONS AT THE APPROPRIATE TIME BASED ON THE RECOMMENDATIONS OF THIS EXAM. Report reported and signed by Rich Soriano on 03/13/2022 0925 Normal [facility] [employer] Coding Summary.on 02-15-2022 Coding Summary. CD:[id number] Gh0bW w+PGhlYWQ+FP7MQKCvT07zkEY qnF7CI2aGBU9EHYUSNSXZBZ8L JZ0xuLJ0DXnrI2MehbZj FmhobFYzWJ07BTx2TQI7eUlaT MaexO2fxMHeG2a8YkIcQV78bY 73HGgoJQAiDfU1QmVsohyyxLK y F7tfVjFnmIBgOcm+PHRhYmxlI HdpZHRoPScxMDAlJyBzdHlsZT 8gAm1mLIJuHCIgcTvyaEHzOgN j k8iqSUSwRYswGH3bsBdjW9Vmr EA0QPDno5f7Ar12fCK+PHRkIH P6xBvbXAevu599RkKng1ndRTP 3 mXDeDXhmFJK5I55nn7B1EYLqX USnRID0bSR5eP8nbTbxhnzlG0 FqgDKoPuA0GML0dZHhlN3bvCw n ruzczK1vItt+H44EOZ3BCCCWE E3TNdl3O2XvUwlmsOL+PC90YW EfGZ66dIXntJFyv5qvhYp4HoM w ZOIoGTK2tTxyNCbsb3PbYHNrX 32rzKOxe0P0GVTmrOlmpZTxZy TneSJ3xR1eOCqimagjl2lvcod n Daqwf0klhg55pV03I02zTPzsB RIeRCU8MWVjGHCnbJlzvh2mtP 9wIi8+OYegl9vwo9huuRh7GfJ w OGYytcVngDcmOMK3q9PtSp82V 6FmtVncp7BrXil6ey83uYFgq9 E9wIT9HEfwMVCajH6kEEakRoA 6 QBViExMvhS01bVOtEJbpMc9du BmidWppOP5vLKLravvnDZRpbX 3hMCXeyAOteFdcJO4tQZDdwim m g774JjEcYZH8UYYkvGZrF3Uqh Q9fFgYkQWYrMVIkB8UzqHQdUY msM610JHwwTdY9GURwpbTvI7F s VYOhcWtxYuD9w3W7Gh5Sl7Vyg gozSAM9WXjgIMCbNwO0GmSqGj Z9L3CsQtj9SIYlsTiwYV6cR9A h MNZfpqdjlqiufRO1FCPgSKVuv D17lTBxUAtoKu0fg2V5n896UD QaZHIsrJ67Uq3yjRekSPIcnGA U vP7oohmpa8cmlmeiVuHdAXOgX Qq6OPg7SPGnaYwtXdIpBKS8Bi Y0GGL1eVYjyB2qiYyicupjzU6 w Oyc+X19kdK4cVLL1GMH1eupnV JEkphVoJJ87MO48W7QqActpjP FibGU+TONguqYxqLegWL6wQpS j q8mtk3RcCWkrA5EdVSVlDFqtJ aq3PXHsPNR7rBV7iN6sUCEqSO okr3R5gWC9T3TzknKmdv1cr6y s KBMcHRjeE60yjOIeu9X3GGZel MD1FUTooCosXzDpqY40Gqq+PG DtqYmit7DwEsbdw9sru5bvqXm 9 BdKpUWYyiuUywXwaBWF7w5OmJ o31P68tQVrwGHTpURPfOUYkJK HrsVdgtb4bfG6gGq2+PGNvbCB 3 yZR9oQ5lEJVhQjR0CXpiC375R kAgpRSfJncqo1ebd8qocBf0Xj NpZPOxsrSuqYrdZNY4t3VzYu5 8 J42uGMvlLPIyQVJoKHBnADXgm Fpidn7uoZ5cUg8+SJ3qc5rqdn 74hU94aQG+RQQpTEX0dQltZQb w HYAfdX5aIPfgGsQ3ULXcFkSlh I46jUDmKMfpIh2xaWocfRqyQG 6aYDFhmttgf871LcJgn6beOCH w gKSrRHdwPDA5J47nn1F8KKWsN NAeZUS5mWI9aK0xlIonbwbcpD UkdBzvmtQyyXwuLVbzERgmC68 6 IHRvcDsnPlBhdGllbnQgTmFtZ Cx5B5IkMnw9FXTxkOwzRH7deR RcWNghDc4jzLlbjEuhAN3nLQS p nipny104UmJit4vrOKXicZRmO GhlAJY5R98gx3F1JMJrEXMvAH C1qFL9bK3ciHgrtjothDZvuSa g llGhqPpkSSsbKPpmC550FUXdr DmfMmKcwsCoRIRtvMY3DH04TQ 72dXTxp2U8hWL2I1IgUCEqauk t avcfgYF0EQAeBYRkuO64Ae7ks SmzRb5bNKSeNAU6XJSneDDrP8 VpyT1hEuRrORLmRPZvY9RjsUZ t PSmsP778RXhqQzL4JEIjqwDaC 3TcHDMzfEjfLsY2j6D2Zp9NS0 B0KB52LR66hSXlt4X8jLM8K8U h ZWOhsvnlohfbeIH9OMKwZXXwo O83Gz2asMfwIy5uRVRvPRX3KD AdiJMmN3KkbO2pOdUxRXLsMPB w F6CriGLzXVmoG468TWggNoT3X IQvvoSiT5WbXYHmaNipKcF2l3 N6Aw9HVTo0BW86JF64cZOna8X 5 rTH1J1WpYLMmqjiqbkclzNY8L JMkBOIqtL53Xb1juQwoBa6qIA OqFKF3LNJdrQZuI9CdrU5iSfU j FZDrVBPgR7DbyJGxZAfkK477G DaeElO2QVIkfxWkM9AjTLVoiO rwIqT6u7I8Ba0PFAAxPV20SSZ 5 pCT8VR06MN18D6WqWnidmVNso +PHRhYmxlIHdpZHRoPScxMD QvBuSuhIvgJN6gNd7iXENoNTY v aNzopIPkZyUoj6zqLJNqGBjhE Y2axOlcL9WdeZV0PLWty9k9Ve 75T34eB2VzxFL+ISZieDX7mXX 0 aM7hVoJtIaF0DQrdP365McClt CCqEnjfx5hcg5ghyNj7MnM4YY ElcfWqyIgkMPP9n2VfYy49G58 s IHdpZHRoPSIxNSUiIHZhbGlnb d1zdV8oTk7+RNOjfGF2iQQ0xT 5cOvReQnZ5DFadK357UvPveXX v Qnpei1itr0ldlFs2YvGwVCLll uRjuVurYRC1i0DxGd18L6VzfY gwx3FtXxa7bk76gVDac8C3rFF 9 T3HsPJXbhngivIEuhZdjWP8zY BMfsxzhYCZrpS1gWSJnZ2j5Mp DdTfP1QYkgO5XklvW4LNYfjSF g BRedEJH7J46rh6X5QBMfQKCxN WL0uVL0sE5bbBzbzcddnSVfbN bnvjOfoAmlPPvnCAzeV513URR v fVvpDSXfoE0zTRJzlXLhtMcqW V0pNJPjdetoElKRP7rITKEqTQ xPVUVMTEEgTDwvdGQ+PHRkIHN 0 tUjgMQslVGVutI2mFCHsR1t2V xPhKuP2NKkoG9WvLKPfazwoHv 91iE1tGiRuGzY2JWsmI7MclhA 6 NWXhgMShXSrpZRL8H38lb5B6T RKxCHLaWFB8kVQ2wG9osWgikj ogbGVmdDsgdmVydGljYWwtYWx p J929MLFzcPpgYkBmIsK3XpH4I xV6H9LwQbs2YLRyzReaBC3rjK DuVXvtLs8yiQnubGwoKG7aNRO p qmcoNTLgcD5oYLCejBThxNfbW E9zTCXnnvvkq645PhJrRKV8AV XbyKFmZ4CfsJ9lUtIlFWZuRPT w A2DsjUFjURjlJ798XPlpKqD5J IEberVkL4BtPDNyyVezCjR7f1 S7Rq58BOVBCBEvhmdpqID+PHR k VVP7xJifDNczSDXfyD3gMJKeY 9u5PeIuMeE6SDkrH7MlJVCcrv ssXd40nV7uWqDwSrW0FXkoZ8L v hbB6NHBnbITlQJheEYI6I17vu 5N8XJUlHWJgCAW1cQU3tI3tiK lnbjogbGVmdDsgdmVydGljYWw t ODyxW455RIIioRykQhRafAHhF TwvdGQ+ZACiQOL9fOjxZMwzAD FrkM1bSROiD2n2IaRqUsF3FRr u Q7AxAGWndoxhUp86lY0qVoAzT pZ7MZttT2FykaK7YMMlfTLzIU vlVJP7Q07gn9U5XDSjDWTrPBC 7 pKP6cT6rdIvjleybjBXjsUryi bUlmQbhWLvjHZliI514FTSinB ycStfqFdXVle7yOD0kZxyqhOI + SZ37eu49T4QxFwzzYru1MBEoC HG4qND9iW4eXGLbSZxzn4S9qU E7K2AeouEhno7jc8pqBIPcRZb g M11yaCBkp4H2QGKsiWV9GOEev XpfPpGjvP88Zjb+PGNvbGdyb3 LyOilth9qjc1sjnDz5NjGwMYO g kdVyxRnkVME2q7EvKr18N20pP HdpZHRoPSIzMCUiIHZhbGlnbj 0fgK3aVk8+CISuaHM2eZO7jV0 i MzJtZdU4EFbyX142UpTkmABjZ unjz1ffz6fztDy8YsKdNWJixr VodZmvZJE7b3WyUo01R9FroSr y t6CjKaq6rn44qCAap8Z0wJA3C 4SrWXKbormmeZYslCufFA1kDO JgtuhdDGPkrC1tLLJwI5p4GuU w TnR2BBnxD4SizfR2VTUbgMAgN YKjzINLjH3mrgaqa2xgxwvjPq ImMIOqIOe8HRr2KNEohTcnRzE s ETE0DwE8TDS0cHSnmY2biUodw fglrQ7cRwc+JSg1d3ioxLRpWL 1rvYT9IW57AV84jTBxu6E5tDJ 9 B0BvKGGarhhttjfexUA0MMLvY LIyqU53Uu7amWxbQr7jMUFlYB G4PJPlnOMoZ7KdyI6mJqUrNIU w HJZgV8LoqLYdGNbzW928OSscE tH1NVCklgBgB3HaBSGynKvjMw D7q8J1Ks2LOK09WA52XB14jSM g t9H3uHR5C7DhLAKjhlsfnlrah TS2SSXeCGSjrI45Kh5bfPfdEg 8qFHNdFWR6JRSpqOXsD2VwuK6 y VxCfZHEfVGMzO8QwzFCeCTkiM 420WOkuGhK3AFTjkbXiV9KnUW EamBlsLzU6u6B9Yy9TUi92OR9 0 CR24eKLca5W7dGQ2J9EaAJQti cpmvhtxiWO6IQHmPOQkeV28Mb 2qwSqbFn0zKCXiFTZ1CYSqqRG z O9WstE2lHuIjDWOwZEKbT5Ujh NWlGJfbN547MVdgPpZ5WVKtom NuW4RhJKSrsZuaCdF8h2Q6Xr4 Q XVmsgap6D9CoQxzmdKX+PC90Y PUkZJ59nJQoiTLet2ngfSl8Ue XxWUBdFBM6gCrnYTghq1DtZXE t Y29s (more content not included)... Normal [facility] Coding Summary.on 02-07-2022 Coding Summary. CD:[id number] Gh0bW w+PGhlYWQ+GT3AEPOdM37lnZI abE7QN0dXZY0OGGFZGYCZKX0R KZ3ymHY6VOmsA1XcubYf PnhiuGPhLZ35IFk7NOK8yNlmV DxrvF0kkACkK2n7RfJaTK86jP 13UTgsUVKcYvR4DwTbvqnfvJN y L9gjNrIsaPJiCcv+PHRhYmxlI HdpZHRoPScxMDAlJyBzdHlsZT 1dXf5tUVLxYYXddWnwrPKiLpA j h2zeUMLuNWciQP2zmYipO0Eql JR5BJIfq2o8Fn39zZL+PHRkIH A2aRfaZBuqm273ZaEsq6keIMQ 3 gGAiWGbfJPJ6B15ue4B0LFNiZ ABiIDY2dZC5qF6yzEczakvaK2 GspNXuLjS8IJL3xDRnbT0lfId n kuziiA6hBxq+U30OOZ8SKOTAL Z3IVgg4W2QfNifymAH+PC90YW JnUV97kUZqbWNkq7yqtNc9ByD w ABQfOER2dJzhVExvr5FfMADcC 12rpGKub7O4ZGMghSpnaAReVl WwjGT4kC8wNQzcadozi5wcikz n Lxfyv5wpdu63sB87S45eTHidD XJpNID8RSEiESAkbJrfdd6ubN 9wIi8+CRvee6pxh8zbeXr8QoP w SOGnidZfnUljNRT1z1UwZn99Y 3OzmDuve0SjAke2jt05sZDok4 J4zRF5KRxpKQEqvR1vRUdgLfX 6 VCNaIiMpsQ70fIRvCLdtIh9ee OmigWeqJD4iMZXwhhaaNSUpuS 1iJVOcmKBkcLvbWT2wTFTwjys m p796NnDaXTH5CMEmuELdP9Ocz R9nViNlNONqMDWaO8OyrVSyKK ouX457LSxeUtG5SYVoupYuR8J s AXHkvLhnQiV3o3I7Te4Jh3Mcj roiFRD1SQknLBDtNyBkHlHoZa M2O6GpFoq6WECykQehMR0fA8U h WAYzimlgeabbnBR7WGZyLGVwi R42aECvELztFy6se2G0c995BL AdLHTquL12Ew8iuQarKNHexJD U mB8uwehod8xwwbmiVtUiDDDcO Fm5YKo4SVUxyDcvXnOmHCA4Md E2ZVH9aZQvqG2pySxjulnocY1 w Oyc+B56ixI8jCTM8IGC2lskcX TMtjsKdTP09XQ27R0MqDzsopD FibGU+AEZzfeQkiAjyMX4yKoD j o1cxr7FnJRewM5QqRBLnZNueX jd2RGMmNJW9lFS3rK4aGYRwEI bzx2G4dOS4R8RdszPgjj5ml6i s DCQcPNqaM11ewNKhi8X5WEXjc VK1FINqiXttKoPymD39Hcd+PG EvkUykt1NoQpcoc3wfv0hgyUt 9 LfUgOTKfecCkrVkxNFT0u2QcO z83Z48hBArrOTAmPSAiEXZmBO WxfFgzku3ulU8gPm6+PGNvbCB 3 tUJ3zD0aYUXvIjQ0DMfbY447L pMsvQGiExwch8lsl5rmtPd3Ks JrIUZpslFefNcaPIF7g0NvCs6 8 I30aGWypOMRiWSRcPSAnXXKnz Fupyi4yqK0zNp5+KV4he8upuz 89lV04bAB+QSQiTNM1hXgaMEj w OGClwL1wGSbzTkV1KRMiJyXdq S07dHBtKDjvAz9vyShijMfoPU 1yQHVsxpmrs333EqPqi2cqPIQ w dJLaCIwsZHS9E61lu0M2EOFpB SIcWUQ5lVH5cW1luEgerswkgX TdpOhbtiYzuTwaCLlyDCghH81 6 IHRvcDsnPlBhdGllbnQgTmFtZ Ez5T1SaOpm3BSXxmLknEO2lyO HqATaxKd6piTlckWzzLL2cFWV p gvfsb530ZdCfm1vqBCIqpIHgE DdtLHM8Z83ig0V6RUEjDOSlFQ T0qMJ2jE2peBzrfmsdzAUtiNw g csYleAymHMjtVXxhT419ANDvb LwsOwNvcsWqKZIndBK3NX02FZ 67gEDeq9H2bGW7U1LaSWXwfdb t rmczaPB7DVQeGMDvsP59Af2dv GqlOe8nUGKkVCR6BIThlFFaD7 YjxV2pCmVcZWMiRSLkJ3CclHF t NAnfX332ZKqbMoK4UMBlhoZmB 4IaKRChcOwsPnH3o2C0Pa5QQ0 L2UG52VD80wOGky5K1zBI5B7J h DEZubcdecpxqvYT4GHDlLHTom K61By5hyQvvNs2lYMAgQDQ3GU GteCIsE4FivX0xTsLhYWXpTCB w V5MbrYJdUVzuY932ZKwtZwW6B BLxnxLjV1DvSRYodAohBnC6e6 T0Ad5KZVt3RW44HV25yOBkx9Y 5 xUW2P4PeNITqkcxlpmaqjRJ3N XRxYWCbqW34Ik7xhRldHl7iGN IfHDP8WWKgaZQyA7TwiD4hTnK j HRLvLDBrP9DuyLBaMPkfL797O TqrUdK3POQuphLmW9WjHUFkwG ylGaY2c4Z4Cw6CDQLbSF06KEH 5 lZR8ET04MT65Z0AfLbsazFSne +PHRhYmxlIHdpZHRoPScxMD ZzYcMaxMeaOI5nPz3cQTZfTQM v rExtzXAdTxZwq5taOPPuPWvsQ Z0biPmoF0SlkYO8HUYvp9a5Ep 78W57fM7AcaZU+PGUpgJA1pZA 0 dW1zFsRzVjN4PZfkW714TwWzu FCoEclcu9rjt2dgjYy7WhZ4KO JjscDakNlaZAC3j3UdWp27F09 s IHdpZHRoPSIxNSUiIHZhbGlnb z9mnO6uXt5+LMItgXT0hIM0oA 4lLdCzLfD2TYxpI314SpIrcKU v Nliot8mwf3cilEo7CmBtTOGwa hZvsPflIEZ6m7OrEc04C9GsrW nfh9FyUnx6lf86kEBvg1U4aUF 9 T1WpLHWcbuohiSXilBtnYJ0oM DDanxazFBPfcT5cWGDcI4t8Qd PrCtY9XCyeC1AkpzT8ETQpwZO g QJppDWS5Q10mp8M9KKFaXJAfJ HA2tKT8dV4mfYjrjeexiCXgcU oflrIpcWmvUNezOTqzY403QUS v yJakHWAqkZ2bDJQjgRFsdEhsR S4aWABsrrgoZkYXG1oETQDoZJ xPVUVMTEEgTDwvdGQ+PHRkIHN 0 eQzbUSuvMTGgxQ7nYHKxU8e2C mHhXsZ4SErxJ9HrHCRwgxbrKh 26rT0rGzIzBfI2CXthT5AoulG 6 FMTklSWgAMbxQAP5V22lz5C9K EUfQLGxZIL7mVU5lD5rgLvszr ogbGVmdDsgdmVydGljYWwtYWx p I858QTMylPvzGeFdIxI8FvK7X aL3I5IdUyl3LVZtdHxuFV7nxD SiSBmkGs0ezOecqGbdTU5tFWE p cqpdRFNueZ9yGQLbvTYmhUymV Q4zWNTewkaud905EuAfMPA1OG ObrWJpD4BleN9uAnYaXVCyBTL w C7BjmUKvVTphS211JTjhBmT8C FGrkuIhB4GsFHPwmEibZwX0s5 Z6Ic92RUJBEVAtlmmhlCE+PHR k YDV6dRjnSBguHOQncO5wPBExL 7q2FhHzXuA5GCwlU2ZfMMFupl drRd77hS3vSfIuAlG9SSfmO8T v unZ7QEZjpDJeVAktWIM3G59mi 3I0WKHrMBCqPTS0qHP5nH6smN lnbjogbGVmdDsgdmVydGljYWw t GWufS796JWAgeUvjNfJxbSPyO TwvdGQ+CTJdJQZ0bUlfSZczZB FrdA8qSCKxA9j9DuWqUcK0ZMb u B4ZtBUXrcjetUe62rF9wRoCyL cC0RLnbQ7BamaG4NOHygSSvXS jeMUW4V09ld9F7OUZbKBInKCC 7 aVU4eU3cbCluxgrjsWGyqMnvp yXuqTatNKvqRWjhT186GFGfkR cdNw17kSJdpFuigaU9L9PkHcq v dHI+NW49IWEuTI90cQWfuQBbg 4vtnEc1YiVrNLDqUFW7pGzbLC dra5XbCBBdR76qzNOkq0A2SLX v wEbirXHkAsMzwWU3cM0nIXafq tmcp8rnwgndVympb2plep02sQ 16F63gXSacMQMkHRGhTQHbAON h kZajzw0yuK3gTb8+XHUkyQH2x KE6fM4oDkCmVlS3DHdiZ921Qo WtxQCjDtrng3dtp7nlaTe9FzW w OLHwcxUmtXbnVSP1y6GeBo28C 29sIHdpZHRoPSIyMCUiIHZhbG urzq9bvN0zDy1+JY2gc3qeye9 1 tD75tLD+CXJpJZK5eSleNAigM QSfnG6bDImzVaN2PPUfKoGykE 01sBKeOEqtKn1kpCykmKvcRF0 w QGSkejtry763FfDvl6iyRJHkw XIgQShbMFT9N82vh1I4ZNHfMJ RzPWA0bRQ0iX6rbTjxjazbnVU m iFkfbsYsbKxgHIwkXSqjA426H BTknSmfIoPbfKYaG9acqkMPHN 1lOjwvdGQ+VOTiELA0oMogHXm w OXFbaV4tQCAhL1g7ZoOkDtJ9V CbpF5GcwjQ5PCQyfEUzFASdsV JObB3ctjmdv0bbedhzXpIoWSG w JCk6GJn6CBLgbUowWcMsHCS9W rM7VVI2vLIlvQ6ovCwjzkjtnH 9wOyc+RklOOjwvdGQ+PHRkIHN 0 uSihVOdgKWYpzL6nSVFaJ6y5N dRqZiF0DNmdK3GbcmS9OCIoqB SaMAPryQINzW7jjkwie5rfibc g AuQiNYArMOw3RVs1JUGnlLycV cKgFJZ3YoD2QMQ7iPBosP6vuR oeiifyeP3lGeq+TVJOOjwvdGQ + YOArXOU1tEbmKSdoKHQxeB5rP RBsB6p6AzBpMpV3YZasO4Qbmr Z8NNDimMLhAGVrlUOTuA0oxfl j d4qmfcduKvOxFCCzPZh9NOe2E BIsiUinCiQlIMH6XhE1LEU5aX OwnM1rtMefepnbvH9qDjk+UGF 5 SJM0UI51KM72X5QsAqmfxUSat +PHRhYmxlIHdpZHRoPScxMD XpObHnqDgnLS3rBe9cDASkPXE v bGxh (more content not included)... Normal [facility] Physician Orderon 02-07-2022 Physician Order [id number]#[id number]:1 27 Normal [facility] BMPon 02-05-2022 Anion gap [Moles/Vol] 18 mmol/L High 6-16 [facility] Comment on above: Performed By: #### 2 [id number], [id number] #### [facility] [address] [place] [address] Calcium [Mass/Vol] 9.6 mg/dL Normal 8.9-11.1 [facility] Comment on above: Performed By: #### 2 [id number], [id number] #### [facility] [address] [place] [address] Chloride [Moles/Vol] 101 mmol/L Normal 101-111 [facility] Comment on above: Performed By: #### 2 [id number], [id number] #### [facility] [address] [place] [address] CO2 [Moles/Vol] 23 mmol/L Normal 21-31 [facility] Comment on above: Performed By: #### 2 [id number], [id number] #### [facility] [address] [place] [address] Creatinine [Mass/Vol] 1.0 mg/dL Normal 0.5-1.3 [facility] Comment on above: Performed By: #### 2 [id number], [id number] #### [facility] [address] [place] [address] Glucose [Mass/Vol] 154 mg/dL Normal 55-199 [facility] Comment on above: Result Comment: If t his glucose result represents a fasting glucose, interpretation should refer to the following reference range: 55-99 mg/dL Performed By: #### 2 [id number], [id number] #### [facility] [address] [place] [address] Potassium [Moles/Vol] 3.9 mmol/L Normal 3.5-5.3 [facility] Comment on above: Performed By: #### 2 [id number], [id number] #### [facility] [address] [place] [address] Sodium [Moles/Vol] 138 mmol/L Normal 135-145 [facility] Comment on above: Performed By: #### 2 [id number], [id number] #### [facility] [address] [place] [address] Urea nitrogen [Mass/Vol] 19 mg/dL Normal 5-21 [facility] Comment on above: Performed By: #### 2 [id number], [id number] #### [facility] [address] [place] [address] Urea nitrogen/Creatinine [Mass ratio] 19 No Units Normal 10-20 [facility] Comment on above: Performed By: #### 2 [id number], [id number] #### [facility] [address] [place] [address] CHEMISTRYOrdered By: SYSTEM SYSTEM on 02-05-2022 Anion gap [Moles/Vol] 18 mmol/L High 6 - 16 mEq/L [facility] Calcium [Mass/Vol] 9.6 mg/dL Normal 8.9 - 11. 1 mg/dL [facility] Chloride [Moles/Vol] 101 mmol/L Normal 101 - 1 11 mmol/L [facility] CO2 [Moles/Vol] 23 mmol/L Normal 21 - 31 mmol/L [facility] Creatinine [Mass/Vol] 1.0 mg/dL Normal 0.5 - 1.3 mg/dL [facility] GFR/1.73 sq M.predicted among blacks MDRD (S/P/Bld) [Vol rate/Area] mL/min/1.73 m2 Normal >=59mL/min /1.73 m2 [facility] Chem S GFR/1.73 sq M.predicted among non-blacks MDRD (S/P/Bld) [Vol rate/Area] 59 mL/min/1.73 m2 Normal >=59mL/min /1.73 m2 [facility] Chem S Glucose [Mass/Vol] 154 mg/dL Normal 55 - 199 mg/dL [facility] Potassium [Moles/Vol] 3.9 mmol/L Normal 3.5 - 5.3 mmol/L [facility] Sodium [Moles/Vol] 138 mmol/L Normal 135 - 145 mmol/L [facility] Urea nitrogen [Mass/Vol] 19 mg/dL Normal 5 - 21 mg/dL [facility] Urea nitrogen/Creatinine [Mass ratio] 19 mg/mg Normal 10 - 20 [facility] Consent for Treatmenton 01-10 Consent for Treatment [id number]#1.00CD:12 7 Normal [facility] Physician Orderon 02-05-2022 Physician Order [id number]#1.00CD:12 7 Normal [facility] eGFRon 02-05-2022 GFR/1.73 sq M.predicted among blacks MDRD (S/P/Bld) [Vol rate/Area] mL/min/{1.73_m2} Normal >=59 [facility] Comment on above: Order Comment: Order added by Discern Expert. Result Comment: eGFR is race adjusted. AA=. Performed By: #### 2 [id number], [id number] #### [facility] [address] [place] [address] GFR/1.73 sq M.predicted among non-blacks MDRD (S/P/Bld) [Vol rate/Area] 59 mL/min/1.73 m2 Normal >=59 [facility] Comment on above: Order Comment: Order added by Discern Expert. Result Comment: [place] Att[employer] shayne kidney disease could be indicated at eGFR's of less than 60 mL/min/1.73m2. Kidney failure is indicated at less than 15 mL/min/1.73m2. Performed By: #### 2 [id number], [id number] #### [facility] [address] [place] [address] Coding Summary.on 01-15-2022 Coding Summary. CD:[id number] Gh0bW w+PGhlYWQ+TP1RNSFsH80aeXV ymM3ZQ1yQLA8HJOEQRJTQQB5N PC1wqZX4UGavQ0FblyRc HvimcJXkGM59GWj7GWA7vZylK DazlN2paTOwR1n6YlObOA08sN 74EQenKBLjKwC2RsMuzofpjMC y Y5xrRzUgvDEjBzr+PHRhYmxlI HdpZHRoPScxMDAlJyBzdHlsZT 3tHz2jFMFyJQCrgCgigVDgLrC j x3elLQNkVMwySH5ceOoyB1Yva RU6ALRqv5f3Gg42kJD+PHRkIH B3jKafFDdqm192YgCtj8pgPSX 3 hNVnUUjtRMS6K57dk3Z8TQKcY VQvZCH5vDF4lX7orLkkjylqK6 YteITvDzU2KIF2iZSnxK0eoXn n gezsfU9sDxd+W09QGN6KGMJIE U9MUux3Q6HrDafabKA+PC90YW UgLW64dLUxnPHuu4ineUf7QhH w VOXzVFQ5iZsrRRrny5YsXKDqK 13bsCGca8M8UQScuSbhdMPaBw HcgPQ8rN7bPUxuvidec1luquq n Syqny3egyi87xO36Q78eXDvcL SMlPSF6TGRuYCJivAkati2okG 9wIi8+WKazw2lnf7iawDk6ZsF w DFXjayNbaAacCFF1k1LiHm64K 1NcxKfct9DbHly0ah78zSMuk7 I3jNW9NPwhXXBgfE5nOIklZvV 6 QIStFdPnkX02wFEdVYnfXn4na RsrpFvwDV5uXAFssaaoWECynU 8xMTAlwXNvsUvuYG2fPNMzlue m d223WvKvWQH7LPYtyXPrO1Umv B0fPsGoDGPlXUPmV1GvpKMjLS lqI455HYpwQmQ5FZKmfjWzE1M s HKJcaRluZsP4d4X0Pk5Rp1Dpl wdrABO8LFylHDAyKqC6BbNtYb P4S3XzYkh7HVCvkBvqSS6hA6D h KHDrgdepiomhyUP1BXCnTJXad F76nLBvBVkzQw1vp3T6m995GA ZlPVEroY77Xf8kvLwoLYRysZO U pR6pinjoh6ctyjrxGgEfUOCpQ Xd9NUs7VTAuxXytPoLhEEI6Qo K6IGA2mXPreO2ieChiyzmvcM5 w Oyc+D66zuV4dEQB0JDF4xrvfP CBfauKbXJ47NH80T9VcTuzprD FibGU+RMQpnaCckHkfJC4mCuL j o3kpj7CbZHdxM6MxXKGdNKtrS jx2BDHxTGL0oQT0oT5fKDCdWB qra8U9mXK4G5QldhChen0as0w s NZPoIEhfF87byMNpg3X1AMUum ZW1YKSdjWkqTzKphV70Lnz+PG IsyMdua7ByEsvlt6hkh5dxnOz 9 WsDhSMAscvOspWzzTHZ3g1NoT b68T96rRPwiTSPsRWBvCMOeJX WbdXuzvi3abG0iKv0+PGNvbCB 3 sMK6dE9oQYRvEtF6INfhQ204K bNszQQaRjspj3jhw9hxbCn0Yw QeCMDtiiRphZwiZRQ8s6GpKg7 8 V10iGZeiZCDmJMZaVOIkIKCek Zsvjs0cdA1iFv3+YR6vs5crth 06eR85oXG+WJJlVBM8mOkzMXm w LHNcpI0dJVckXzH1BEZmNoRpe M73yGTtKScbJw3byGumlDxlZF 4qOCOafworu747HtZre6laSMQ w xVCyDCstFQM8L29wd6P5VSSrT TOaDGM5fWX7pN6kiEmghesnmO UosOgzhaGkzBydTGklGCgjM81 6 IHRvcDsnPlBhdGllbnQgTmFtZ Ay4E0KcViw0CFDaoHtrJP3hmW WcCGbdDo1wpNwrqIjpMT0zGGS p gpzmj509HmAww1owXHKuaWLqS IwaKRN0T08db2A9MUBqTLXqUO L5eWH8vL9qjHxywraiiGFzmQy g rnMriBcwLPdxNXzeE570WWGlg LrbOvRxmvIlRJQoePL8WG28CV 87nLMpd9A8zXO1K2MmVODyskz t rkiouEM3AAHlJCUwuL73Na1qs SxjRj3dYYQeDHI9LHJhkZPsJ9 EowM2iSxZqPUQaGRZgR0WsoSB t ULnzY932EAauSqM0IQJhenQvS 8GkIIEjdHslMhC7f8F6Cf4CU0 V3LY92OL41oAMwp3F0eNH6W4B h SRMmmhenizvkcLA1PCQnOJOnz Y90Gt1cnWthZe7tPOWzEQX0BF RfhAQiU9ZtsV2tDfMaJQJrXUR w E2RqbLKcISpvL750YRwwXwA1B NEgigMbQ3QxBWJwyJniFcQ6v9 C8Rl8DDLf7FS03HN47nYVam4Q 5 nNW0K5NyHDOgawfpqlolrFE9Z TNmBVLmeK36Hf8ugSgsJp4lTH MyVMK5YKVsoLYxJ5WddM6aInD j WYYiZEDuG7KuhSLjDZmyS784W UhqVnJ1JSVostFuJ8RaJAUvbR aiSfR9s1Z5Ac5YHZUpAC26FDI 5 nZY0OP10ZF23O4ZvKojhjZBji +PHRhYmxlIHdpZHRoPScxMD NhUzCfrQclNF1gKy2cTCJuISZ v rPpmsHNcRzZmx8ejIPTqZFttO M7neGgnH5JffAY1CJJyn8j4Jx 79F31nR4KpzJN+KNVwvAW0dAK 0 sB9yErMoOtV5RJuyL134GxUrs NSkEglmc8vbt4zmzYj6BkL3KC NcmeCzbXtzVRY3i5NgQx95U20 s IHdpZHRoPSIxNSUiIHZhbGlnb f8beW3vSp4+DGMhqZS4qFA3hT 2cGvWwEnK8RTdpV161OyXjqFT v Nperd8sjg2lfhMu7UmSzYBPft yOnhVnfMPL8o2OaNg85M6PaaK ayv0ElFnj4se59gMOjh6A0uFP 9 H5IuHPGrvaesgGWbjKfsJL3pW WRilnnsXMKocE8gYQZlV3d9Lq GzHzA5QEjrB3PablV4HYOjuLE g VUicMAQ1C02kg0W9WMCaXLJnI TY9iEY3fH9mfMldmebmrCZurU mlkfDqkCxvOWarPRnfJ711WOB v cGflPZMesP0oMPOpeMHunEgqT Z1yNCEbzhukNxHZI8lLHGMfEW xPVUVMTEEgTDwvdGQ+PHRkIHN 0 oGreQOpcEMRpqA0vPAYbA2w0B yApYkZ1UWkxW7JtLITxvzjyOm 57rG4bLsAiIvN6SFshY1KnwgJ 6 UYSldJLsOSwxXDP4Y25oj5H4Q MCfVLLxKDE4rBH7wQ3liVhqsb ogbGVmdDsgdmVydGljYWwtYWx p V408EQDbdCupHsObHvY2XcF7R qW8O4HkZju3BSNsyHamSJ4rrU VrIYvnBd9wrHatqWgbCW9qCPN p rzbrFMZyaA0lPFEdhQFrpDrlL E1iRSTjhwyjn492EjAkZPD2EK DslZKhO3KdxY1sSjLqSYOxRFH w P1ZghEYwIBtiP377REpfNgZ2M IQagyZwB6DpJRCkkUteRrM7r8 J0Pv36GYZMBMZihrheqSB+PHR k QWR5lBlbNKzgBMYuhH7aSWRyM 1l6UoZoXwU0OOcqE3QnEOExhh mrGs96eN9hVgIuVzZ7FHfdD1P v obD5MSJrpDSlCXppTAR0D63hy 2F5BWEsBAEtQZR2mRF1qM2mtR lnbjogbGVmdDsgdmVydGljYWw t OQinJ299DIGyiQyiPvFptAOrQ TwvdGQ+NMEqFWY5cEgpJVcvQZ PxrJ3lGRDwY4x9EhImLuM0DQy u L8JvVQViaqrxAa23iN8oMdFiF mC7VYakI6CyuyW3HNEppJJaRE zjQLH3S80qe9H8WZIqNLEkYHE 7 rLP0fB1bbZvieiheqGDjjXyaf vQbeOojAXcjHPwmN397XWWyoB rqBx59rBFlvOlrapV9L0YhFvl v dHI+ZI00LFUhDM97qNRphDYgu 4gloIn1XjBlUSDmMHH7qNhsDR sdg5EfHGVeJ93xxKZrv2V2MUE v oRxmoFLiLzEvgRB1pS1aCIjve hxkq7cddpphXpirv1qnpo40zF 50C65hAKllHMKlSDQaBSQhTUF h oCgdsr4ygV4jVk0+HAVtcBI1k FE2pN2rXgAdEdV7WGmpE666Kf OfnAPrBvwkw9vat8dvkYk4QnT w BJFlafOzkZsoXGI8w7SeBq56I 29sIHdpZHRoPSIyMCUiIHZhbG utbf3usK0fOb9+BF9fz7jluo4 1 wD48iPL+SCFoYCO7uYdwAYwvV YDepZ5tIRmbKaV2ETEuVcEtyQ 19aOIcIZrbAe8vhQninKsqFF3 w BRSbxcqyx140TsSmr3smMDRqd MBaVTlkMUO6Y20zf8H6TWWlVZ IuKOA1nVQ5iB0gqRkqdiojyYL m iQvoscRhmIyuHGpsVSusS608T JKiwUoaXkAkyOLuZ4xwrxRTKT 1lOjwvdGQ+JJVbZIV1aBinAHb w SUErsG6aKHLiU1q1FvByNcK3J YviR7QyggB4ITHtgCLySVGgkM LEyZ8vhmrlf9iitcpwDiUaOFC w XNw7TPa9WYIedVteBkOwLRX5I gY9ZIW7lOLwgZ4ezDhrrxvjwS 9wOyc+RklOOjwvdGQ+PHRkIHN 0 wJwmHJawEPTvrK4zZWBhY3j4R kSkVkZ1HMzuJ3VmfiV2HNLhqX McWPLgfJQCqB7qiwrwn5qafpd g FzQiEUOnKQj0OXf8SFPbfSzhO bZyIVE8JrG8DNH2zCFagC8xrW zabqohuO2xRwn+TVJOOjwvdGQ + VUPyVIH0pXdxVBoyCXLnzG1fJ VGfB0m9YwScFcB1YCqcU1Oazz H8OCUqeLRgNTBvfWNYmL8yadb j j3uxtkdwHlVpBREeCHq3EXe2M FZvzIigTgUxABQ8NhS8JLQ9hP JjoR6apTwfnnownY3xQul+UGF 5 PYD0SK06OV26C2JtOquryCCxs +PHRhYmxlIHdpZHRoPScxMD DhMlWobGzqWD0wPv8vSEJvZZY v bGxh (more content not included)... Normal [facility] Auto Diffon 01-08-2022 Basophils/100 WBC (Bld) 0.6 % Normal 0.0-2.0 [facility] Comment on above: Order Comment: Order Added by Discern Expert. Performed By: #### 2 [id number], [id number] #### [facility] [address] [place] [address] Basophils/Leukocytes Auto (Bld) [Pure # fraction] 0.1 E9/L Normal 0.0-0.2 [facility] Comment on above: Order Comment: Order Added by Discern Expert. Performed By: #### 2 [id number], [id number] #### [facility] [address] [place] [address] Eosinophils/100 WBC (Bld) 1.4 % Normal 0.0-8.0 [facility] Comment on above: Order Comment: Order Added by Discern Expert. Performed By: #### 2 [id number], [id number] #### [facility] [address] [place] [address] Eosinophils/Leukocytes Auto (Bld) [Pure # fraction] 0.2 E9/L Normal 0.0-0.5 [facility] Comment on above: Order Comment: Order Added by Discern Expert. Performed By: #### 2 [id number], [id number] #### [facility] [address] [place] [address] Lymphocytes/100 WBC (Bld) 35.6 % Normal 14.0-50.0 [facility] Comment on above: Order Comment: Order Added by Discern Expert. Performed By: #### 2 [id number], [id number] #### [facility] [address] [place] [address] Lymphocytes/Leukocytes Auto (Bld) [Pure # fraction] 4.2 E9/L High 1.0-4.0 [facility] Comment on above: Order Comment: Order Added by Discern Expert. Performed By: #### 2 [id number], [id number] #### [facility] [address] [place] [address] Monocytes/100 WBC (Bld) 3.0 % Low 4.0-14.0 [facility] Comment on above: Order Comment: Order Added by Discern Expert. Performed By: #### 2 [id number], [id number] #### [facility] [address] [place] [address] Monocytes/Leukocytes Auto (Bld) [Pure # fraction] 0.4 E9/L Normal 0.2-1.0 [facility] Comment on above: Order Comment: Order Added by Discern Expert. Performed By: #### 2 [id number], [id number] #### [facility] [address] [place] [address] Neutrophils/100 WBC (Bld) 59.4 % Normal 36.0-75.0 [facility] Comment on above: Order Comment: Order Added by Discern Expert. Performed By: #### 2 [id number], [id number] #### [facility] [address] [place] [address] Neutrophils/Leukocytes Auto (Bld) [Pure # fraction] 7.0 E9/L Normal 2.0-7.5 [facility] Comment on above: Order Comment: Order Added by Discern Expert. Performed By: #### 2 [id number], [id number] #### [facility] [address] [place] [address] BMPon 01-08-2022 Anion gap [Moles/Vol] 17 mmol/L High 6-16 [facility] Comment on above: Performed By: #### 2 [id number], [id number] #### [facility] [address] [place] [address] Calcium [Mass/Vol] 10.1 mg/dL Normal 8.9-11.1 [facility] Comment on above: Performed By: #### 2 [id number], [id number] #### [facility] [address] [place] [address] Chloride [Moles/Vol] 99 mmol/L Low 101-111 [facility] Comment on above: Performed By: #### 2 [id number], [id number] #### [facility] [address] [place] [address] CO2 [Moles/Vol] 22 mmol/L Normal 21-31 [facility] Comment on above: Performed By: #### 2 [id number], [id number] #### [facility] [address] [place] [address] Creatinine [Mass/Vol] 1.1 mg/dL Normal 0.5-1.3 [facility] Comment on above: Performed By: #### 2 [id number], [id number] #### [facility] [address] [place] [address] Glucose [Mass/Vol] 356 mg/dL High 55-199 [facility] Comment on above: Result Comment: If t his glucose result represents a fasting glucose, interpretation should refer to the following reference range: 55-99 mg/dL Performed By: #### 2 [id number], [id number] #### [facility] [address] [place] [address] Potassium [Moles/Vol] 4.2 mmol/L Normal 3.5-5.3 [facility] Comment on above: Performed By: #### 2 [id number], [id number] #### [facility] [address] [place] [address] Sodium [Moles/Vol] 134 mmol/L Low 135-145 [facility] Comment on above: Performed By: #### 2 [id number], [id number] #### [facility] [address] [place] [address] Urea nitrogen [Mass/Vol] 18 mg/dL Normal 5-21 [facility] Comment on above: Performed By: #### 2 [id number], [id number] #### [facility] [address] [place] [address] Urea nitrogen/Creatinine [Mass ratio] 16 No Units Normal 10-20 [facility] Comment on above: Performed By: #### 2 [id number], [id number] #### [facility] [address] [place] [address] CBC w/ Auto Diffon Erythrocyte distribution width (RBC) [Ratio] 13.5 % Normal 10.9-14.2 [facility] Comment on above: Performed By: #### 2 [id number], [id number] #### [facility] [address] [place] [address] Hematocrit (Bld) [Volume fraction] 46.4 % High 34.0-46.0 [facility] Comment on above: Performed By: #### 2 393671, [id number] #### [facility] [address] [place] [address] Hemoglobin (Bld) [Mass/Vol] 15.8 g/dL Normal 12.0-16.0 [facility] Comment on above: Performed By: #### 2 [id number], [id number] #### [facility] [address] [place] [address] MCH (RBC) [Entitic mass] 30.4 pg Normal 27.0-34.0 [facility] Comment on above: Performed By: #### 2 340588, [id number] #### [facility] [address] [place] [address] MCHC (RBC) [Mass/Vol] 34.1 g/dL Normal 31.4-36.0 [facility] Comment on above: Performed By: #### 2 791610, [id number] #### [facility] [address] [place] [address] MCV (RBC) [Entitic vol] 89.1 fL Normal 80.0-100.0 [facility] Comment on above: Performed By: #### 2 604710, [id number] #### [facility] [address] [place] [address] Platelet mean volume (Bld) [Entitic vol] 9.8 fL Normal 6.4-10.8 [facility] Comment on above: Performed By: #### 2 768242, [id number] #### [facility] [address] [place] [address] Platelets (Bld) [#/Vol] 252.0 E9/L Normal 150. 0-500. 0 [facility] Comment on above: Performed By: #### 2 292803, [id number] #### [facility] [address] [place] [address] RBC (Bld) [#/Vol] 5.2 E12/L Normal 4.3-5.9 [facility] Comment on above: Performed By: #### 2 731925, [id number] #### [facility] [address] [place] [address] WBC corrected for nucl RBC Auto (Bld) [#/Vol] 11.8 E9/L High 4.0-11.0 [facility] Comment on above: Performed By: #### 2 333959, [id number] #### [facility] [address] [place] [address] CHEMISTRYOrdered By: SYSTEM SYSTEM on 01-08-2022 Anion gap [Moles/Vol] 17 mmol/L High 6 - 16 mEq/L [facility] Calcium [Mass/Vol] 10.1 mg/dL Normal 8.9 - 11. 1 mg/dL [facility] Chloride [Moles/Vol] 99 mmol/L Low 101 - 1 11 mmol/L [facility] CO2 [Moles/Vol] 22 mmol/L Normal 21 - 31 mmol/L [facility] Creatinine [Mass/Vol] 1.1 mg/dL Normal 0.5 - 1.3 mg/dL [facility] GFR/1.73 sq M.predicted among blacks MDRD (S/P/Bld) [Vol rate/Area] mL/min/1.73 m2 Normal >=59mL/min /1.73 m2 [facility] Chem S GFR/1.73 sq M.predicted among non-blacks MDRD (S/P/Bld) [Vol rate/Area] 53 mL/min/1.73 m2 Low >=59mL/min /1.73 m2 [facility] Chem S Glucose [Mass/Vol] 356 mg/dL High 55 - 199 mg/dL [facility] Potassium [Moles/Vol] 4.2 mmol/L Normal 3.5 - 5.3 mmol/L [facility] Sodium [Moles/Vol] 134 mmol/L Low 135 - 145 mmol/L [facility] Urea nitrogen [Mass/Vol] 18 mg/dL Normal 5 - 21 mg/dL [facility] Urea nitrogen/Creatinine [Mass ratio] 16 mg/mg Normal 10 - 20 [facility] Consent for Treatmenton 12-11 Consent for Treatment [id number]:12 7 Normal [facility] HEMATOLOGYOrdered By: SYSTEM SYSTEM on 01-08-2022 [...] 7.0 E9/L Normal 2.0 - 7.5 E9/L [facility] HemeAutoSS HEMATOLOGYOrdered By: Wild Beaver on 01-08-2022 Erythrocyte distribution width (RBC) [Ratio] 13.5 % Normal 10.9 - 14.2 % [facility] Hematocrit (Bld) [Volume fraction] 46.4 % High 34.0 - 46.0 % [facility] Hemoglobin (Bld) [Mass/Vol] 15.8 g/dL Normal 12.0 - 16.0 gm/dL [facility] MCH (RBC) [Entitic mass] 30.4 pg Normal 27. 0 - 34.0 pg [facility] MCHC (RBC) [Mass/Vol] 34.1 g/dL Normal 31.4 - 36.0 gm/dL [facility] MCV (RBC) [Entitic vol] 89.1 fL Normal 80.0 - 100.0 fL [facility] Platelet mean volume (Bld) [Entitic vol] 9.8 fL Normal 6.4 - 10.8 fL [facility] Platelets (Bld) [#/Vol] 252.0 E9/L Normal 150. 0 - 500.0 E9/L [facility] RBC (Bld) [#/Vol] 5.2 E12/L Normal 4.3 - 5.9 E12/L [facility] WBC corrected for nucl RBC Auto (Bld) [#/Vol] 11.8 E9/L High 4.0 - 11.0 E9/L [facility] Pharmacy Officeon 01-08-2022 Pharmacy Office [id number]#[id number]:1 27 Normal [facility] Physician Orderon 01-08-2022 Physician Order [id number]#[id number]:12 7 Normal [facility] eGFRon 01-08-2022 GFR/1.73 sq M.predicted among blacks MDRD (S/P/Bld) [Vol rate/Area] mL/min/{1.73_m2} Normal >=59 [facility] Comment on above: Order Comment: Order added by Discern Expert. Result Comment: eGFR is race adjusted. AA=. Performed By: #### 2 [id number], [id number] #### [facility] [address] [place] [address] GFR/1.73 sq M.predicted among non-blacks MDRD (S/P/Bld) [Vol rate/Area] 53 mL/min/1.73 m2 Low >=59 [facility] Comment on above: Order Comment: Order added by Discern Expert. Result Comment: [place] Attendant shayne kidney disease could be indicated at eGFR's of less than 60 mL/min/1.73m2. Kidney failure is indicated at less than 15 mL/min/1.73m2. Performed By: #### 2 [id number], [id number] #### [facility] [address] [place] [address] PTH INTACTon 09-13-2021 PTH, Intact 17 pg/mL Normal 15-65 [facility] Comment on above: Performed By: #### M G, RENAL, URIC #### [facility] [address] [address] [address] Tyree Botello HEMOGRAM AND PLATELon 2021 Hematocrit (Bld) [Volume fraction] 46.5 % Normal 36.0-48.0 [facility] Comment on above: Performed By: #### M G, RENAL, URIC #### [facility] [address] [address] [address] Tyree Botello Hemoglobin (Bld) [Mass/Vol] 15.7 g/dL Normal 12.0-16.0 [facility] Comment on above: Performed By: #### M G, RENAL, URIC #### [facility] [address] [address] [address] Tyree Botello MCH (RBC) [Entitic mass] 30.0 pg Normal 26.7-34.0 [facility] Comment on above: Performed By: #### M G, RENAL, URIC #### [facility] [address] [address] [address] Tyree Botello MCHC (RBC) [Mass/Vol] 33.8 g/dL Normal 29.9-35.2 [facility] Comment on above: Performed By: #### M G, RENAL, URIC #### [facility] [address] [place] [address] Dr. Tyree Botello MCV (RBC) [Entitic vol] 88.9 fL Normal 81.0-99.0 [facility] Comment on above: Performed By: #### M G, RENAL, URIC #### [facility] [address] [place] [address] Dr. Tyree Botello PLT 261 103/ul Normal 150-450 [facility] Comment on above: Performed By: #### M Quinton, RENAL, URIC #### [facility] [address] [place] [address] Dr. Tyree Botello RBC 5.23 106/ul Normal 4.20-5.40 [facility] Comment on above: Performed By: #### M Quinton, RENAL, URIC #### [facility] [address] [place] [address] Dr. Tyree Botello WBC 11.1 103/ul Critically high 4.0-11.0 [facility] Comment on above: Performed By: #### M Quinton, RENAL, URIC #### [facility] [address] [place] [address] Dr. Tyree Botello MAGNESIUMon 09-12-2021 Magnesium [Mass/Vol] 1.3 mg/dL Critically low 1.8-2.4 [facility] Comment on above: Performed By: #### M G, RENAL, URIC #### [facility] [address] [place] [address] Dr. Tyree Botello RENAL FUNCTION PANELon 09-12 Albumin [Mass/Vol] 3.4 g/dL Normal 3.4-5.0 [facility] Comment on above: Performed By: #### M G, RENAL, URIC #### [facility] [address] [place] [address] Dr. Tyree Botello Calcium [Mass/Vol] 10.3 mg/dL Critically high 8.5-10.1 [facility] Comment on above: Performed By: #### M G, RENAL, URIC #### [facility] [address] [address] [address] Tyree Botello Chloride [Moles/Vol] 100 mmol/L Normal 98-107 [facility] Comment on above: Performed By: #### M G, RENAL, URIC #### [facility] [address] [address] [address] Tyree Botello CO2 [Moles/Vol] 23.1 mmol/L Normal 21.0-32.0 [facility] Comment on above: Performed By: #### M G, RENAL, URIC #### [facility] [address] [address] [address] Tyree Botello Creatinine [Mass/Vol] 1.11 mg/dL Critically high 0.55-1.02 [facility] Comment on above: Performed By: #### M G, RENAL, URIC #### [facility] [address] [address] [address] Tyree Botello EGFR-AF TUNISIAN >60 Normal >=60 [facility] Comment on above: Performed By: #### M G, RENAL, URIC #### [facility] [address] [address] [address] Tyree Botello EGFR-NON AF TUNISIAN 52 mL/min/1.73m2 Critically low >=60 [facility] Comment on above: Performed By: #### M G, RENAL, URIC #### [facility] [address] [address] [address] Tyree Botello Glucose [Mass/Vol] 239 mg/dL Critically high 74-106 [facility] Comment on above: Performed By: #### M G, RENAL, URIC #### [facility] [address] [address] [address] Tyree Botello Phosphate [Mass/Vol] 2.6 mg/dL Normal 2.6-4.7 [facility] Comment on above: Performed By: #### M G, RENAL, URIC #### [facility] [address] [address] [address] Tyree Botello Potassium [Moles/Vol] 4.2 mmol/L Normal 3.5-5.1 [facility] Comment on above: Performed By: #### M G, RENAL, URIC #### [facility] [address] [place] [address] Dr. Tyree Botello Sodium [Moles/Vol] 137 mmol/L Normal 136-145 [facility] Comment on above: Performed By: #### M G, RENAL, URIC #### [facility] [address] [place] [address] Dr. Tyree Botello Urea nitrogen [Mass/Vol] 21.0 mg/dL Critically high 7.0-18 .0 [facility] Comment on above: Performed By: #### M G, RENAL, URIC #### [facility] [address] [place] [address] Dr. Tyree Botello UA RANDOM W/MICROSCOPICon BACTERIA MODERATE Abnormal NONE SEEN [facility] Comment on above: Performed By: #### M G, RENAL, URIC #### [facility] [address] [place] [address] Dr. Tyree Botello Bilirubin Ql (U) Negative Normal NEGATIVE [facility] Comment on above: Performed By: #### M G, RENAL, URIC #### [facility] [address] [place] [address] Dr. Tyree Botello CAST SEEN Abnormal NONE SEEN [facility] Comment on above: Performed By: #### M G, RENAL, URIC #### [facility] [address] [place] [address] Dr. Tyree Botello Clarity (U) CLEAR Normal CLEAR [facility] Comment on above: Performed By: #### M G, RENAL, URIC #### [facility] [address] [place] [address] Dr. Tyree Botello Color (U) YELLOW Normal YELLOW [facility] Comment on above: Performed By: #### M G, RENAL, URIC #### [facility] [address] [place] [address] Dr. Tyree Botello Crystals LM Nom (Urine sed) NONE SEEN Normal NONE SEEN [facility] Comment on above: Performed By: #### M G, RENAL, URIC #### [facility] [address] [address] [address] Tyree Botello Epithelial cells LM Ql (Urine sed) FEW Abnormal NONE SEEN /RARE [facility] Comment on above: Performed By: #### M G, RENAL, URIC #### [facility] [address] [address] [address] Tyree Botello Glucose Ql (U) >1000 Abnormal NEGATIVE [facility] Comment on above: Performed By: #### M G, RENAL, URIC #### [facility] [address] [address] [address] Tyree Botello Hemoglobin Ql (U) SMALL Abnormal NEGATIVE [facility] Comment on above: Performed By: #### M G, RENAL, URIC #### [facility] [address] [address] [address] Tyree Botello HYALINE CAST RARE Normal [facility] Comment on above: Performed By: #### M G, RENAL, URIC #### [facility] [address] [address] [address] Tyree Botello Ketones Ql (U) Negative Normal NEGATIVE [facility] Comment on above: Performed By: #### M G, RENAL, URIC #### [facility] [address] [address] [address] Tyree Botello LEUKOCYTES Negative Normal NEGATIVE [facility] Comment on above: Performed By: #### M G, RENAL, URIC #### [facility] [address] [address] [address] Tyree Botello MUCOUS NONE SEEN Normal NONE SEEN [facility] Comment on above: Performed By: #### M G, RENAL, URIC #### [facility] [address] [address] [address] yTree Botello Nitrite Ql (U) Negative Normal NEGATIVE [facility] Comment on above: Performed By: #### M G, RENAL, URIC #### [facility] [address] [address] [address] Tyree Botello pH (U) 5.5 [pH] Normal 5-9 [facility] Comment on above: Performed By: #### M G, RENAL, URIC #### [facility] [address] [address] [address] Tyree Botello RBC 2-5 Abnormal 0-2 [facility] Comment on above: Performed By: #### M G, RENAL, URIC #### [facility] [address] [place] [address] Dr. Tyree Botello SPEC GRAVITY >=1.030 Abnormal 1.005-<=1. 025 [facility] Comment on above: Performed By: #### M G, RENAL, URIC #### [facility] [address] [place] [address] Dr. Tyree Botello UA PROTEIN 100 mg/dl Abnormal NEGATIVE/ TRACE [facility] Comment on above: Performed By: #### M G, RENAL, URIC #### [facility] [address] [place] [address] Dr. Tyree Botello Urobilinogen Qn (U) 0.2 {Jennifer'U}/dL Normal 0.2 - 1. 0 [facility] Comment on above: Performed By: #### M G, RENAL, URIC #### [facility] [address] [place] [address] Dr. Tyree Botello WBC 5-10 Abnormal NONE SEEN [facility] Comment on above: Performed By: #### M G, RENAL, URIC #### [facility] [address] [place] [address] Dr. Tyree Botello URIC ACID SERUMon 09-12-2021 Urate [Mass/Vol] 6.5 mg/dL Critically high 2.6-6.0 [facility] Comment on above: Performed By: #### M G, RENAL, URIC #### [facility] [address] [place] [address] Dr. Tyree Botello URINE T PROTEIN CREAT RATIOo n 09-12-2021 Protein (U) [Mass/Vol] 177.8 mg/dL Critically high <=12.0 [facility] Comment on above: Performed By: #### M G, RENAL, URIC #### [facility] [address] [place] [address] Dr. Tyree Botello UR PROT CREAT RAT 1.06 Normal [facility] Comment on above: Performed By: #### M G, RENAL, URIC #### [facility] [address] [place] [address] Dr. Tyree Botello URINE CREAT 168.43 mg/dL Normal 20.00-300. 00 [facility] Comment on above: Performed By: #### M G, RENAL, URIC #### [facility] [address] [place] [address] Dr. Tyree Botello VITAMIN D 25 OHon 09-12-2021 VIT D 25-OH 45.5 ng/mL Normal [facility] Comment on above: Performed By: #### M G, RENAL, URIC #### [facility] [address] [place] [address] Dr. Tyree Botello VIT D RANGES SEE BELOW Normal [facility] Comment on above: Result Comment: <20 ng/mL Vit D deficient 20 - <30 ng/mL Vit D insufficient 30 - 100 ng/mL Vit D sufficient >100 ng/mL Potential Toxicity Performed By: #### M G, RENAL, URIC #### [facility] [address] [place] [address] Dr. Tyree Botello CBC AUTO DIFFon 08-30-2021 BASO # 0.1 103/ul Normal 0.0-0.1 [facility] Comment on above: Performed By: #### M G, RENAL, URIC #### [facility] [address] [place] [address] Dr. Tyree Botello Basophils/100 WBC (Bld) 0.5 % Normal 0.2-2.0 T [facility] Comment on above: Performed By: #### M G, RENAL, URIC #### [facility] [address] [place] [address] Dr. Tyree Botello EO # 0.1 103/ul Normal 0.0-0.7 [facility] Comment on above: Performed By: #### M G, RENAL, URIC #### [facility] [address] [place] [address] Dr. Tyree Botello Eosinophils/100 WBC (Bld) 1.1 % Normal 0.9-7.0 [facility] Comment on above: Performed By: #### M G, RENAL, URIC #### [facility] [address] [place] [address] Dr. Tyree Botello Erythrocyte distribution width (RBC) [Ratio] 12.7 % Normal 11.0-15.0 [facility] Comment on above: Performed By: #### M G, RENAL, URIC #### [facility] [address] [place] [address] Dr. Tyree Btoello Hematocrit (Bld) [Volume fraction] 44.6 % Normal 36.0-48.0 [facility] Comment on above: Performed By: #### M G, RENAL, URIC #### [facility] [address] [place] [address] Dr. Tyree Botello Hemoglobin (Bld) [Mass/Vol] 15.0 g/dL Normal 12.0-16.0 [facility] Comment on above: Performed By: #### M G, RENAL, URIC #### [facility] [address] [place] [address] Dr. Tyree Botello IG # 0.05 10e3/ul Critically high 0.00-0.03 [facility] Comment on above: Performed By: #### M G, RENAL, URIC #### [facility] [address] [place] [address] Dr. Tyree Botello IG % 0.4 % Normal 0.0-0.5 [facility] Comment on above: Performed By: #### M G, RENAL, URIC #### [facility] [address] [place] [address] Dr. Tyree Botello LYMPH # 3.6 103/ul Normal 1.2-3.8 [facility] Comment on above: Performed By: #### M G, RENAL, URIC #### [facility] [address] [place] [address] Dr. Tyree Botello Lymphocytes/100 WBC (Bld) 29.8 % Normal 20.5-60.0 [facility] Comment on above: Performed By: #### M G, RENAL, URIC #### [facility] [address] [place] [address] Dr. Tyree Botello MANUAL DIFF REQ NO Normal [facility] Comment on above: Performed By: #### M G, RENAL, URIC #### [facility] [address] [place] [address] Dr. Tyree Botello MCH (RBC) [Entitic mass] 29.9 pg Normal 26.7-34.0 [facility] Comment on above: Performed By: #### M G, RENAL, URIC #### [facility] [address] [place] [address] Dr. Tyree Botello MCHC (RBC) [Mass/Vol] 33.6 g/dL Normal 29.9-35.2 [facility] Comment on above: Performed By: #### M G, RENAL, URIC #### [facility] [address] [place] [address] Dr. Tyree Botello MCV (RBC) [Entitic vol] 88.8 fL Normal 81.0-99.0 [facility] Comment on above: Performed By: #### M G, RENAL, URIC #### [facility] [address] [place] [address] Dr. Tyree Botello MONO # 0.6 103/ul Normal 0.3-0.8 [facility] Comment on above: Performed By: #### M G, RENAL, URIC #### [facility] [address] [place] [address] Dr. Tyree Botello Monocytes/100 WBC (Bld) 5.2 % Normal 1.7-12.0 [facility] Comment on above: Performed By: #### M G, RENAL, URIC #### [facility] [address] [place] [address] Dr. Tyree Botello NEUT # 7.5 103/ul Critically high 1.4-6.5 [facility] Comment on above: Performed By: #### M G, RENAL, URIC #### [facility] [address] [place] [address] Dr. Tyree Botello Neutrophils/100 WBC (Bld) 63.0 % Normal 43.0-75.0 [facility] Comment on above: Performed By: #### M G, RENAL, URIC #### [facility] [address] [address] [address] Tyree Botello Platelet mean volume (Bld) [Entitic vol] 11.4 fL Normal 9.5-13.5 [facility] Comment on above: Performed By: #### M G, RENAL, URIC #### [facility] [address] [address] [address] Tyree Botello PLT 225 103/ul Normal 150-450 [facility] Comment on above: Performed By: #### M G, RENAL, URIC #### [facility] [address] [address] [address] Tyree Botello RBC 5.02 106/ul Normal 4.20-5.40 [facility] Comment on above: Performed By: #### M G, RENAL, URIC #### [facility] [address] [place] [address] Dr. Tyree Botello WBC 12.0 103/ul Critically high 4.0-11.0 [facility] Comment on above: Performed By: #### M G, RENAL, URIC #### [facility] [address] [place] [address] Dr. Tyree Botello DEPAKENE/VALPROICon 08-31-19 DEPAKENE 53.3 ug/ml Normal 50.0-100.0 [facility] Comment on above: Performed By: #### M G, RENAL, URIC #### [facility] [address] [place] [address] Dr. Tyree Botello LIPID PROFILEon 08-30-2021 CHOL-HDL RATIO NORM SEE BELOW Normal [facility] Comment on above: Result Comment: 3.3 - 4.4 LOW RISK 4.4 - 7.1 AVERAGE RISK 7.1 - 11.0 MODERATE RISK >11.0 HIGH RISK Performed By: #### M G, RENAL, URIC #### [facility] [address] [place] [address] Dr. Tyree Botello Cholesterol [Mass/Vol] 160 mg/dL Normal <=200 [facility] Comment on above: Performed By: #### M G, RENAL, URIC #### [facility] [address] [address] [address] Tyree Botello Cholesterol in HDL [Mass/Vol] 43 mg/dL Normal 40-60 [facility] Comment on above: Performed By: #### M G, RENAL, URIC #### [facility] [address] [address] [address] Tyree Botello Cholesterol in LDL [Mass/Vol] 76.0 mg/dL Normal [facility] Comment on above: Performed By: #### M G, RENAL, URIC #### [facility] [address] [address] [address] Tyree Botello Cholesterol.total/Choles terol in HDL [Mass ratio] 3.7 {ratio} Normal [facility] Comment on above: Performed By: #### M G, RENAL, URIC #### [facility] [address] [address] [address] Tyree Botello HDL NORMAL > or = 60 mg/dl - LO W CARDIOVASCULAR RISK <40 mg/dl - HIGH CARDIOVASCULAR RISK Normal [facility] Comment on above: Performed By: #### M G, RENAL, URIC #### [facility] [address] [address] [address] Tyree Botello LDL CALC NORMAL SEE BELOW Normal [facility] Comment on above: Result Comment: <100 mg/dl OPTIMAL 100 - 129 mg/dl NEAR OR ABOVE OPTIMAL 130 - 159 mg/dl BORDERLINE HIGH 160 - 189 mg/dl HIGH >190 mg/dl VERY HIGH Performed By: #### M G, RENAL, URIC #### [facility] [address] [address] [address] Tyree Botello Triglyceride [Mass/Vol] 205 mg/dL Critically high <=150 [facility] Comment on above: Performed By: #### M G, RENAL, URIC #### [facility] [address] [address] [address] Tyree Botello VLDL CALC 41.0 mg/dL Normal [facility] Comment on above: Performed By: #### M G, RENAL, URIC #### [facility] [address] [address] [address] Tyree Botello LIVER PROFILEon 08-30-2021 Albumin [Mass/Vol] 3.0 g/dL Critically low 3.4-5.0 Th e [facility] Comment on above: Performed By: #### M G, RENAL, URIC #### [facility] [address] [address] [address] Tyree Botello Albumin/Globulin [Mass ratio] 0.8 {ratio} Normal [facility] Comment on above: Performed By: #### M G, RENAL, URIC #### [facility] [address] [address] [address] Tyree Botello ALP [Catalytic activity/Vol] 63 U/L Normal 46-116 [facility] Comment on above: Performed By: #### M G, RENAL, URIC #### [facility] [address] [place] [address] Dr. Tyree Botello ALT [Catalytic activity/Vol] 49 U/L Normal 14-59 [facility] Comment on above: Performed By: #### M G, RENAL, URIC #### [facility] [address] [place] [address] Dr. Tyree Botello AST [Catalytic activity/Vol] 23 U/L Normal 15-37 [facility] Comment on above: Performed By: #### M G, RENAL, URIC #### [facility] [address] [place] [address] Dr. Tyree Botello BILI, CONJUGATED 0.1 mg/dL Normal 0.0-0.2 [facility] Comment on above: Performed By: #### M G, RENAL, URIC #### [facility] [address] [place] [address] Dr. Tyree Botello Bilirubin [Mass/Vol] 0.4 mg/dL Normal 0.2-1.0 [facility] Comment on above: Performed By: #### M G, RENAL, URIC #### [facility] [address] [place] [address] Dr. Tyree Botello Globulin (S) [Mass/Vol] 3.7 g/dL Normal T [facility] Comment on above: Performed By: #### M G, RENAL, URIC #### [facility] [address] [address] [address] Tyree Botello Protein [Mass/Vol] 6.7 g/dL Normal 6.4-8.2 [facility] Comment on above: Performed By: #### M G, RENAL, URIC #### [facility] [address] [place], [place] [id number] Dr. Tyree Botello Complete Blood Count with Au to Diffon 07-17-2021 BASOABS 97 cells/uL Normal 0-200 [facility] Comment on above: Order Comment: [facility] performed at: [employer] [employer] [facility], [address] [place] [address], [address] [place] [address], [address] [place] [address], Ground Water Technician: Senthil Ramsey MD [facility] Date/Time: [facility] Results Received Date/Time: [facility] Reported Date/Time: FASTING: UNKNOWN Performed By: #### L IPD, CMP, TSH, CBCAD #### [facility] [address] [place] [address] Basophils/100 WBC (Bld) 0.9 % Normal N [facility] Comment on above: Order Comment: [facility] performed at: [employer] [facility], [address] [place] [address], [address] [place] [address], [address] [place] [address], Ground Water Technician: Senthil Ramsey MD [facility] Date/Time: [facility] Results Received Date/Time: [facility] Reported Date/Time: FASTING: UNKNOWN Performed By: #### L IPD, CMP, TSH, CBCAD #### [facility] [address] [place] [address] EOSABS 97 cells/uL Normal 15-500 [facility] Comment on above: Order Comment: [facility] performed at: [employer] [facility], [address] [place] [address], [address] [place] [address], [address] [place] [address], Ground Water Technician: Senthil Ramsey MD [facility] Date/Time: [facility] Results Received Date/Time: [facility] Reported Date/Time: FASTING: UNKNOWN Performed By: #### L IPD, CMP, TSH, CBCAD #### [facility] [address] [place] [address] Eosinophils/100 WBC (Bld) 0.9 % Normal [facility] [employer] Comment on above: Order Comment: [facility] performed at: [employer] [employer] [facility], [address] [place] [address], [address] [place] [address], [address] [place] [address], Ground Water Technician: Senthil Ramsey MD [facility] Date/Time: [facility] Results Received Date/Time: [facility] Reported Date/Time: FASTING: UNKNOWN Performed By: #### L IPD, CMP, TSH, CBCAD #### [facility] [address] [place] [address] Erythrocyte distribution width (RBC) [Ratio] 13.6 % Normal 11.0-15.0 [facility] [employer] Comment on above: Order Comment: [facility] performed at: [employer] [facility], [address] [place] [address], [address] [place] [address], [address] [place] [address], Ground Water Technician: Senthil Ramsey MD [facility] Date/Time: [facility] Results Received Date/Time: [facility] Reported Date/Time: FASTING: UNKNOWN Performed By: #### L IPD, CMP, TSH, CBCAD #### [facility] [address] [place] [address] Hematocrit (Bld) [Volume fraction] 48.3 % High 35.0-45.0 [facility] [employer] Comment on above: Order Comment: [facility] performed at: [employer] [employer] [facility], [address] [place] [address], [address] [place] [address], [address] [place] [address], Ground Water Technician: Senthil Ramsey MD [facility] Date/Time: [facility] Results Received Date/Time: [facility] Reported Date/Time: FASTING: UNKNOWN Performed By: #### L IPD, CMP, TSH, CBCAD #### [facility] [address] [place] [address] Hemoglobin (Bld) [Mass/Vol] 16.7 g/dL High 11.7-15.5 [facility] [employer] Comment on above: Order Comment: [facility] performed at: [employer] [employer] [facility], [address] [place] [address], [address] [place] [address], [id number], Ground Water Technician: Senthil Ramsey MD [facility] Date/Time: [facility] Results Received Date/Time: [facility] Reported Date/Time: FASTING: UNKNOWN Performed By: #### L IPD, CMP, TSH, CBCAD #### [facility] [address] [place] [address] Lymphocytes (Bld) [#/Vol] 4.428 10*3/uL High 850-3900 [facility] [employer] Comment on above: Order Comment: [facility] performed at: [employer] [employer] [facility], [address] [place] [address], [address] [place] [address], [address] [place] [address], Ground Water Technician: Senthil Ramsey MD [facility] Date/Time: [facility] Results Received Date/Time: [facility] Reported Date/Time: FASTING: UNKNOWN Performed By: #### L IPD, CMP, TSH, CBCAD #### [facility] [address] [place] [address] Lymphocytes/100 WBC (Bld) 41.0 % Normal [facility] [employer] Comment on above: Order Comment: [facility] performed at: [employer] [facility], [address] [place] [address], [address] [place] [address], [address] [place] [address], Ground Water Technician: Senthil Ramsey MD [facility] Date/Time: [facility] Results Received Date/Time: [facility] Reported Date/Time: FASTING: UNKNOWN Performed By: #### L IPD, CMP, TSH, CBCAD #### [facility] [address] [place] [address] MCH (RBC) [Entitic mass] 31.0 pg Normal 27.0-33.0 [facility] [employer] Comment on above: Order Comment: [facility] performed at: [employer] [employer] [facility], [address] [place] [address], [address] [place] [address], [address] [place] [address], Ground Water Technician: Senthil Ramsey MD [facility] Date/Time: [facility] Results Received Date/Time: [facility] Reported Date/Time: FASTING: UNKNOWN Performed By: #### L IPD, CMP, TSH, CBCAD #### [facility] [address] [place] [address] MCHC (RBC) [Mass/Vol] 34.6 g/dL Normal 32.0-36.0 [facility] Comment on above: Order Comment: [facility] performed at: [employer] [employer] [facility], [address] [place] [address], [address] [place] [address], [id number], Ground Water Technician: Senthil Ramsey MD [facility] Date/Time: [facility] Results Received Date/Time: [facility] Reported Date/Time: FASTING: UNKNOWN Performed By: #### L IPD, CMP, TSH, CBCAD #### [facility] [address] [place] [address] MCV (RBC) [Entitic vol] 89.6 fL Normal 80.0-100.0 [facility] [employer] Comment on above: Order Comment: [facility] performed at: [employer] [employer] [facility], [address] [place] [address], [id number], Ground Water Technician: Senthil Ramsey MD [facility] Date/Time: [facility] Results Received Date/Time: [facility] Reported Date/Time: FASTING: UNKNOWN Performed By: #### L IPD, CMP, TSH, CBCAD #### [facility] [address] [place] [address] MONOABS 605 cells/uL Normal 200-950 [facility] [employer] Comment on above: Order Comment: [facility] performed at: [employer] [employer] [facility], [address] [place] [address], [address] [place] [address], [address] [place] [address], Ground Water Technician: Senthil Ramsey MD [facility] Date/Time: [facility] Results Received Date/Time: [facility] Reported Date/Time: FASTING: UNKNOWN Performed By: #### L IPD, CMP, TSH, CBCAD #### [facility] [address] [place] [address] Monocytes/100 WBC (Bld) 5.6 % Normal N [facility] Comment on above: Order Comment: [facility] performed at: [employer] [employer] [facility], [address] [place] [address], [address] [place] [address], [address] [place] [address], Ground Water Technician: Senthil Ramsey MD [facility] Date/Time: [facility] Results Received Date/Time: [facility] Reported Date/Time: FASTING: UNKNOWN Performed By: #### L IPD, CMP, TSH, CBCAD #### [facility] [address] [place] [address] Neutrophils (Bld) [#/Vol] 5.573 10*3/uL Normal 0470-4228 [facility] Comment on above: Order Comment: [facility] performed at: [employer] [employer] [facility], [address] [place] [address], [address] [place] [address], [address] [place] [address], Ground Water Technician: Senthil Ramsey MD [facility] Date/Time: [facility] Results Received Date/Time: [facility] Reported Date/Time: FASTING: UNKNOWN Performed By: #### L IPD, CMP, TSH, CBCAD #### [facility] [address] [place] [address] Neutrophils/100 WBC (Bld) 51.6 % Normal [facility] Comment on above: Order Comment: [facility] performed at: [employer] [employer] [facility], [address] [facility], [address] [place] [address], [address] [place] [address], Ground Water Technician: Senthil Ramsey MD [facility] Date/Time: [facility] Results Received Date/Time: [facility] Reported Date/Time: FASTING: UNKNOWN Performed By: #### L IPD, CMP, TSH, CBCAD #### [facility] [address] [place] [address] Platelet mean volume (Bld) [Entitic vol] 11.4 fL Normal 7.5-12.5 [facility] Comment on above: Order Comment: [facility] performed at: [employer] [employer] [facility], [address] [facility], [address] [place] [address], [address] [place] [address], Ground Water Technician: Senthil Ramsey MD [facility] Date/Time: [facility] Results Received Date/Time: [facility] Reported Date/Time: FASTING: UNKNOWN Performed By: #### L IPD, CMP, TSH, CBCAD #### [facility] [address] [place] [address] Platelets (Bld) [#/Vol] 239 10*3/uL Normal 140-400 [facility] Comment on above: Order Comment: [facility] performed at: [employer] [facility], [address] [place] [address], [address] [place] [address], [address] [place] [address], Ground Water Technician: Senthil Ramsey MD [facility] Date/Time: [facility] Results Received Date/Time: [facility] Reported Date/Time: FASTING: UNKNOWN Performed By: #### L IPD, CMP, TSH, CBCAD #### [facility] [address] [place] [address] RBC (Bld) [#/Vol] 5.39 10*6/uL High 3.80-5.10 [facility] Comment on above: Order Comment: [facility] performed at: [employer] [facility], [address] [place] [address], [address] [place] [address], [address] [place] [address], Ground Water Technician: Senthil Ramsey MD [facility] Date/Time: [facility] Results Received Date/Time: [facility] Reported Date/Time: FASTING: UNKNOWN Performed By: #### L IPD, CMP, TSH, CBCAD #### [facility] [address] [place] [address] WBC (Bld) [#/Vol] 10.8 10*3/uL Normal 3.8-10.8 [facility] Comment on above: Order Comment: [facility] performed at: [employer] [employer] [facility], [address] [place] [address], [address] [place] [address], [address] [place] [address], Ground Water Technician: Senthil Ramsey MD [facility] Date/Time: [facility] Results Received Date/Time: [facility] Reported Date/Time: FASTING: UNKNOWN Performed By: #### L IPD, CMP, TSH, CBCAD #### [facility] Default [address] [place] [address] Comprehensive Metabolic [facility] 07-17-2021 Albumin [Mass/Vol] 4.2 g/dL Normal 3.6-5.1 [facility] Comment on above: Order Comment: [facility] performed at: [employer] [employer] [facility], [address] [place] [address], [address] [place] [address], [address] [place] [address], Ground Water Technician: Senthil Ramsey MD [facility] Date/Time: [facility] Results Received Date/Time: [facility] Reported Date/Time: FASTING: UNKNOWN Performed By: #### L IPD, CMP, TSH, CBCAD #### [facility] Default [address] [place] [address] Albumin/Globulin [Mass ratio] 1.4 {ratio} Normal 1.0-2.5 [facility] Comment on above: Order Comment: [facility] performed at: [employer] [employer] [facility], [address] [place] [address], [address] [place] [address], [address] [place] [address], Ground Water Technician: Senthil Ramsey MD [facility] Date/Time: [facility] Results Received Date/Time: [facility] Reported Date/Time: FASTING: UNKNOWN Performed By: #### L IPD, CMP, TSH, CBCAD #### [facility] Default [address] [place] [address] ALP [Catalytic activity/Vol] 65 U/L Normal 31-125 [facility] Comment on above: Order Comment: [facility] performed at: [employer] [facility], [address] [place] [address], [address] [place] [address], [address] [place] [address], Ground Water Technician: Senthil Ramsey MD [facility] Date/Time: [facility] Results Received Date/Time: [facility] Reported Date/Time: FASTING: UNKNOWN Performed By: #### L IPD, CMP, TSH, CBCAD #### [facility] [address] [place] [address] ALT [Catalytic activity/Vol] 30 U/L High 6-29 [facility] Specialist Comment on above: Order Comment: [facility] performed at: [facility], [address] [place] [address], [address] [place] [address], [address] [place] [address], Ground Water Technician: Senthil Ramsey MD [facility] Collection Date/Time: [facility] Results Received Date/Time: [facility] Reported Date/Time: FASTING: UNKNOWN Performed By: #### L IPD, CMP, TSH, CBCAD #### [facility] Default [address] [place] [address] Anion gap [Moles/Vol] 20 mmol/L Normal 12-20 [facility] Comment on above: Order Comment: [facility] performed at: [facility], [address] [place] [address], [address] [place] [address], [address] [place] [address], Ground Water Technician: Senthil Ramsey MD [facility] Collection Date/Time: [facility] Results Received Date/Time: [facility] Reported Date/Time: FASTING: UNKNOWN Result Comment: Effe ctive 03/16/2019 reference range changed. Performed By: #### L IPD, CMP, TSH, CBCAD #### [facility] Default [address] [place] [address] AST [Catalytic activity/Vol] 15 U/L Normal 10-35 [facility] [employer] Comment on above: Order Comment: [facility] performed at: [facility], [address] [place] [address], [address] [place] [address], [address] [place] [address], Ground Water Technician: Senthil Ramsey MD [facility] Collection Date/Time: [facility] Results Received Date/Time: [facility] Reported Date/Time: FASTING: UNKNOWN Performed By: #### L IPD, CMP, TSH, CBCAD #### [facility] Default [address] [place] [address] Bilirubin [Mass/Vol] 0.4 mg/dL Normal 0.2-1.2 [facility] Specialist Comment on above: Order Comment: [facility] performed at: [facility], [address] [place] [address], [address] [place] [address], [address] [place] [address], Ground Water Technician: Senthil Ramsey MD [facility] Collection Date/Time: [facility] Results Received Date/Time: [facility] Reported Date/Time: FASTING: UNKNOWN Performed By: #### L IPD, CMP, TSH, CBCAD #### [facility] Default [address] [place] [address] BUN/CREA 24 NOT APPLICABLE Normal 6-22 [facility] [employer] Computer [employer]ant Comment on above: Order Comment: [facility] performed at: [facility], [address] [place] [address], [address] [place] [address], [address] [place] [address], Ground Water Technician: Senthil Ramsey MD [facility] Collection Date/Time: [facility] Results Received Date/Time: [facility] Reported Date/Time: FASTING: UNKNOWN Performed By: #### L IPD, CMP, TSH, CBCAD #### [facility] Default [address] [place] [address] Calcium [Mass/Vol] 10.2 mg/dL Normal 8.6-10.2 [facility] Specialist Comment on above: Order Comment: [facility] performed at: [facility], [address] [facility], [address] [place] [address], [address] [place] [address], Ground Water Technician: Senthil Ramsey MD [facility] Collection Date/Time: [facility] Results Received Date/Time: [facility] Reported Date/Time: FASTING: UNKNOWN Performed By: #### L IPD, CMP, TSH, CBCAD #### [facility] Default [address] [place] [address] Chloride [Moles/Vol] 103 mmol/L Normal 98-110 [facility] Specialist Comment on above: Order Comment: [facility] performed at: [facility], [address] [place] [address], [address] [place] [address], [address] [place] [address], Ground Water Technician: Senthil Ramsey MD [facility] Collection Date/Time: [facility] Results Received Date/Time: [facility] Reported Date/Time: FASTING: UNKNOWN Performed By: #### L IPD, CMP, TSH, CBCAD #### [facility] Default [address] [place] [address] CO2 [Moles/Vol] 22 mmol/L Normal 20-32 [facility] Specialist Comment on above: Order Comment: [facility] performed at: [facility], [address] [place] [address], [address] [place] [address], [address] [place] [address], Ground Water Technician: Senthil Ramsey MD [facility] Collection Date/Time: [facility] Results Received Date/Time: [facility] Reported Date/Time: FASTING: UNKNOWN Performed By: #### L IPD, CMP, TSH, CBCAD #### [facility] Default [address] [place] [address] Creatinine [Mass/Vol] 0.75 mg/dL Normal 0.50-1.10 [facility] Specialist Comment on above: Order Comment: [facility] performed at: [facility], [address] [place] [address], [address] [place] [address], [address] [place] [address], Ground Water Technician: Senthil Ramsey MD [facility] Collection Date/Time: [facility] Results Received Date/Time: [facility] Reported Date/Time: FASTING: UNKNOWN Performed By: #### L IPD, CMP, TSH, CBCAD #### [facility] Default [address] [place] [address] eGFRAA ([facility]) 108 mL/min/1.73m2 Normal > OR = 60 [facility] [employer] Computer Consultant Comment on above: Order Comment: [facility] Testing performed at: [facility], [address] [facility], [address] [place] [address], [address] [place] [address], Ground Water Technician: Senthil Ramsey MD [facility] Collection Date/Time: [facility] Results Received Date/Time: [facility] Reported Date/Time: FASTING: UNKNOWN Performed By: #### L IPD, CMP, TSH, CBCAD #### [facility] Default [address] [place] [address] eGFRNAA ([facility]) 94 mL/min/1.73m2 Normal > OR = 60 [facility] [employer] Computer Consult[employer] Comment on above: Order Comment: [facility] Testing performed at: [facility], [address] [place] [address], [address] [place] [address], [address] [place] [address], Ground Water Technician: Senthil Ramsey MD [facility] Collection Date/Time: [facility] Results Received Date/Time: [facility] Reported Date/Time: FASTING: UNKNOWN Performed By: #### L IPD, CMP, TSH, CBCAD #### [facility] Default [address] [place] [address] Globulin (S) [Mass/Vol] 3.0 g/dL Normal 1.9-3.7 [facility] [employer] Computer Consultant Comment on above: Order Comment: [facility] Testing performed at: [facility], [address] [facility], [address] [place] [address], [address] [place] [address], Ground Water Technician: Senthil Ramsey MD [facility] Collection Date/Time: [facility] Results Received Date/Time: [facility] Reported Date/Time: FASTING: UNKNOWN Performed By: #### L IPD, CMP, TSH, CBCAD #### [facility] Default [address] [place] [address] Glucose [Mass/Vol] 132 mg/dL High 65-99 Latrell sanches [employer]ant Comment on above: Order Comment: [facility] performed at: [facility], [address] [place] [address], [address] [place] [address], [address] [place] [address], Ground Water Technician: Senthil Ramsey MD [facility] Collection Date/Time: [facility] Results Received Date/Time: [facility] Reported Date/Time: FASTING: UNKNOWN Result Comment: Fasting reference interval For someone without known diabetes, a glucose value >125 mg/dL indicates that they may have diabetes and this should be confirmed with a follow-up test. Performed By: #### L IPD, CMP, TSH, CBCAD #### [facility] Default [address] [place] [address] Potassium [Moles/Vol] 3.9 mmol/L Normal 3.5-5.3 Ruthy cha [employer] Computer Consultant Comment on above: Order Comment: [facility] performed at: [facility], [address] [place] [address], [address] [place] [address], [address] [place] [address], Ground Water Technician: Senthil Ramsey MD [facility] Collection Date/Time: [facility] Results Received Date/Time: [facility] Reported Date/Time: FASTING: UNKNOWN Performed By: #### L IPD, CMP, TSH, CBCAD #### [facility] Default [address] [place] [address] Protein [Mass/Vol] 7.2 g/dL Normal 6.1-8.1 Latrell sanches [employer] Comment on above: Order Comment: [facility] Testing performed at: [facility], [address] [place] [address], [address] [place] [address], [address] [place] [address], Ground Water Technician: Senthil Ramsey MD [facility] Collection Date/Time: [facility] Results Received Date/Time: [facility] Reported Date/Time: FASTING: UNKNOWN Performed By: #### L IPD, CMP, TSH, CBCAD #### [facility] Default [address] [place] [address] Sodium [Moles/Vol] 141 mmol/L Normal 135-146 [facility] Specialist Comment on above: Order Comment: [facility] Testing performed at: [facility], [address] [facility], [address] [place] [address], [id number], Ground Water Technician: Senthil Ramsey MD [facility] Collection Date/Time: [facility] Results Received Date/Time: [facility] Reported Date/Time: FASTING: UNKNOWN Performed By: #### L IPD, CMP, TSH, CBCAD #### [facility] Default [address] [place] [address] Urea nitrogen [Mass/Vol] 18 mg/dL Normal 7-25 [facility] Specialist Comment on above: Order Comment: [facility] Testing performed at: [facility], [address] [place] [address], [address] [place] [address], [phone], Ground Water Technician: Senthil Ramsey MD [facility] Collection Date/Time: [facility] Results Received Date/Time: [facility] Reported Date/Time: FASTING: UNKNOWN Performed By: #### L IPD, CMP, TSH, CBCAD #### [facility] Default [address] [place] [address] Lipid Panelon 07-17-2021 Cholesterol [Mass/Vol] 306 mg/dL High <200 No rthern [employer] [place] [employer] Computer Consultant Comment on above: Order Comment: [facility] Testing performed at: [facility], [address] [place] [address], [address] [place] [address], [phone], Ground Water Technician: Senthil Ramsey MD [facility] Collection Date/Time: [facility] Results Received Date/Time: [facility] Reported Date/Time: FASTING: UNKNOWN Performed By: #### L IPD, CMP, TSH, CBCAD #### [facility] Default [address] [place] [address] Cholesterol in HDL [Mass/Vol] 49 mg/dL Low > OR = 50 [facility] [employer] Computer Consultant Comment on above: Order Comment: [facility] Testing performed at: [facility], [address] [place] [address], [address] [place] [address], [address] [place] [address], Ground Water Technician: Senthil Ramsey MD [facility] Collection Date/Time: [facility] Results Received Date/Time: [facility] Reported Date/Time: FASTING: UNKNOWN Performed By: #### L IPD, CMP, TSH, CBCAD #### [facility] Default [address] [place] [address] LDLD SEE NOTE Normal [facility] [employer] Computer Consultant Comment on above: Order Comment: [facility] Testing performed at: [facility], [address] [place] [address], [address] [place] [address], [phone], Ground Water Technician: Senthil Ramsey MD [facility] Collection Date/Time: [facility] [...] LDL-C. Nabil RICO et al. CHRISTIN. 2013;310(19): 5157-2589 (http://[email or web address] [email or web address]/[email or web address]) Performed By: #### L IPD, CMP, TSH, CBCAD #### [facility] Default [address] [place] [address] NON HDL CHOLESTEROL 257 mg/dL (calc) High <130 [employer] [place] [employer] Computer Consultant Comment on above: Order Comment: [facility] Testing performed at: [facility], [address] [facility], [address] [place] [address], [phone], Ground Water Technician: Senthil Ramsey MD [facility] Collection Date/Time: [facility] [...] TSH, CBCAD #### [facility] Default [address] [place] [address] Triglyceride [Mass/Vol] 403 mg/dL High <150 [facility] Comment on above: Order Comment: [facility] Testing performed at: [facility] [employer] [facility], [address] [facility], [address] [place] [address], [phone], Ground Water Technician: Senthil Ramsey MD [facility] Collection Date/Time: [facility] Results Received Date/Time: [facility] Reported Date/Time: FASTING: UNKNOWN Result Comment: If a non-fasting specimen was collected, consider repeat triglyceride testing on a fasting specimen if clinically indicated. Leonie et al. J. of Clin. Lipidol. 2015;9:129-169. Performed By: #### L IPD, CMP, TSH, CBCAD #### [facility] Default [address] [place] [address] TSHon 07-17-2021 TSH Qn 0.95 m[IU]/L Normal [facility] Comment on above: Order Comment: [facility] Testing performed at: [facility], [address] , [address] [place] [address], [phone], Ground Water Technician: Senthil Ramsey MD [facility] Collection Date/Time: [facility] Results Received Date/Time: [facility] Reported Date/Time: [id number] FASTING: UNKNOWN Result Comment: Refe rence Range > or = 20 Years 0.40-4.50 Ranges First trimester 0.26-2.66 Second trimester 0.55-2.73 Third trimester 0.43-2.91 Performed By: #### L IPD, CMP, TSH, CBCAD #### [facility] Default [address] [place] [address] XR Spine Lumbar Complete w/F levi AND Brandon 05-25-2021 XR Spine Lumbar Complete w/Flex AND [...] by Rich Soriano on 05/26/2021 0756 Normal [facility] Specialist Laboratory - Hematology and Cell countson 07-22-2020 Nucleated RBC/100 WBC (Bld) [Ratio] 0.2 % 0-0.5 [facility] Vital Signs Date Time Vital Sign Value Performing Clinician Facility 12-11-2023 13:31-0400 Body height 162.6 cm Fabulyzer PA-C Work Phone: [facility] 12-11-2023 13:31-0400 Body mass index (BMI) [Ratio] 34.16 kg/m2 Veritextff PA-C Work Phone: [facility] 12-11-2023 13:31-0400 Body weight 90.27 kg Veritextff PA-C Work Phone: [facility] 12-11-2023 13:31-0400 Diastolic blood pressure 92 mm[Hg] Fabulyzer PA-C Work Phone: [facility] 12-11-2023 13:31-0400 Heart rate 83 /min Live Adamsff PA-C Work Phone: [facility] 12-11-2023 13:31-0400 SaO2% (BldA) [Mass fraction] 97 % Live Adamsff PA-C Work Phone: [facility] 12-11-2023 13:31-0400 Systolic blood pressure 152 mm[Hg] Live Adamsff PA-C Work Phone: [facility] 11-21-2023 14:29-0400 Body height 165.1 cm SWITCHBOARD WIRERGunnar Chavez Work Phone: [facility] 11-21-2023 14:29-0400 Body mass index (BMI) [Ratio] 33.4 kg/m2 [employer]ITCH[employer] WIRERGunnar Chavez Work Phone: [facility] 11-21-2023 14:29-0400 Body temperature 97.4 [degF] TAMMIE Chavez Work Phone: [facility] 11-21-2023 14:29-0400 Body weight 91.17 kg SWITCHBOARD WIRERGunnar Chavez Work Phone: [facility] 11-21-2023 14:29-0400 Diastolic blood pressure 99 mm[Hg] TAMMIE Chavez Work Phone: [facility] 11-21-2023 14:29-0400 Heart rate 109 /min TAMMIE Chavez Work Phone: [facility] 11-21-2023 14:29-0400 Respiratory rate 16 /min TAMMIE Chavez Work Phone: [facility] 11-21-2023 14:29-0400 SaO2% (BldA) [Mass fraction] 98 % TAMMIE Chavez Work Phone: [facility] 11-21-2023 14:29-0400 Systolic blood pressure 167 mm[Hg] TAMMIE Chavez Work Phone: [facility] 10-01-2023 14:45-0400 Body height 165.1 cm TAMMIE Chavez Work Phone: [facility] 10-01-2023 14:45-0400 Body mass index (BMI) [Ratio] 34 kg/m2 TAMMIE Chavez Work Phone: [facility] 10-01-2023 14:45-0400 Body weight 92.64 kg TAMMIE Chavez Work Phone: [facility] 06-12-2023 10:56-0400 Body mass index (BMI) [Ratio] 33.81 kg/m2 Live Verhoff PA-C [facility] [employer] [facility] 06-12-2023 10:56-0400 Body weight 89.36 kg Live Verhoff PA-C Work Phone: [facility] [employer] [facility] 06-12-2023 10:56-0400 Diastolic blood pressure 75 mm[Hg] Live Verhoff PA-C Work Phone: [facility] 06-12-2023 10:56-0400 Heart rate 90 /min Live Verhoff PA-C Work Phone: [facility] 06-12-2023 10:56-0400 Respiratory rate 18 /min Live Verhoff PA-C Work Phone: [facility] 06-12-2023 10:56-0400 SaO2% (BldA) [Mass fraction] 97 % Live Verhoff PA-C Work Phone: [facility] 06-12-2023 10:56-0400 Systolic blood pressure 152 mm[Hg] Live Verhoff PA-C Work Phone: [facility] [employer] [facility] 04-25-2023 14:26-0500 Body height 165.1 cm [facility] 04-25-2023 14:26-0500 Body mass index (BMI) [Ratio] 34 kg/m2 [facility] 04-25-2023 14:26-0500 Body temperature 97.2 [degF] [facility] 04-25-2023 14:26050 Body weight 92.7 kg [facility] 04-25-2023 14:26-050 Diastolic blood pressure 70 mm[Hg] [facility] 04-25-2023 14:26-0500 Heart rate 102 /min [facility] 04-25-2023 14:260500 Respiratory rate 16 /min [facility] 04-25-2023 14:26-0500 SaO2% (BldA) [Mass fraction] 97 % [facility] 04-25-2023 14:26-0500 Systolic blood pressure 139 mm[Hg] [facility] 04-11-2023 14:14-0500 Body height 165.1 cm Eliazar Pires DPM Work Phone: [facility] 04-11-2023 14:14-0500 Body mass index (BMI) [Ratio] 33.45 kg/m2 Eliazar Pires DPM Work Phone: [facility] 04-11-2023 14:14-0500 Body weight 91.17 kg Eliazar Pires DPM Work Phone: [facility] 04-11-2023 14:14-0500 Diastolic blood pressure 80 mm[Hg] Eliazar Pires DPM Work Phone: [facility] 04-11-2023 14:14-0500 Heart rate 82 /min Eliazar Pires DPM Work Phone: [facility] 04-11-2023 14:14-0500 Systolic blood pressure 130 mm[Hg] Eliazar Pires DPM Work Phone: [facility] 03-15-2023 12:54-0500 Body height 162.6 cm Dennis Foster MD Work Phone: [facility] 03-15-2023 12:54-0500 Body mass index (BMI) [Ratio] 35.7 kg/m2 Dennis Foster MD Work Phone: [facility] 03-15-2023 12:54-0500 Body weight 94.35 kg Dennis Foster MD Work Phone: [facility] 03-15-2023 12:54-0500 Diastolic blood pressure 80 mm[Hg] Dennis Foster MD Work Phone: [facility] 03-15-2023 12:54-0500 Heart rate 81 /min Dennis Foster MD Work Phone: [facility] 03-15-2023 12:54-0500 SaO2% (BldA) [Mass fraction] 98 % Dennis Foster MD Work Phone: [facility] 03-15-2023 12:54-0500 Systolic blood pressure 140 mm[Hg] Dennis Foster MD Work Phone: [facility] 10-18-2022 15:00-0400 Body height 165.1 cm Nir Danis Other [employer] Other 10-18-2022 15:00-0400 Body mass index (BMI) [Ratio] 33.08 kg/m2 Nir Danis Other [employer] Other 10-18-2022 15:00-0400 Body temperature 97.1 [degF] Nir Danis Other [employer] Other 10-18-2022 15:00-0400 Body weight 90.18 kg Nir Danis Other [employer] Other 10-18-2022 15:00-0400 Diastolic blood pressure 98 mm[Hg] Nir Danis Other [employer] Other 10-18-2022 15:00-0400 Respiratory rate 18 /min Nir Danis Other [employer] Other 10-18-2022 15:00-0400 SaO2% (BldA) [Mass fraction] 98 % Nir Danis Other [employer] Other 10-18-2022 15:00-0400 Systolic blood pressure 167 mm[Hg] Nir Danis Other [employer] Other 07-12-2022 14:00-0400 Diastolic blood pressure 94 mm[Hg] MD Kala Lloyd Work Phone: [facility] 07-12-2022 14:00-0400 Heart rate 86 /min MD Kala Lloyd Work Phone: [facility] 07-12-2022 14:00-0400 Respiratory rate 16 /min MD Kala Lloyd Work Phone: [facility] 07-12-2022 14:00-0400 SaO2% (BldA) [Mass fraction] 99 % MD Kala Lloyd Work Phone: [facility] 07-12-2022 14:00-0400 Systolic blood pressure 165 mm[Hg] MD Kala Lloyd Work Phone: [facility] 07-12-2022 11:44-0400 Body height 162.56 cm MD Kala Lloyd Work Phone: [facility] 07-12-2022 11:44-0400 Body temperature 98.6 [degF] MD Kala Lloyd Work Phone: [facility] 07-12-2022 11:44-0400 Body weight 94.34 kg MD Kala Lloyd Work Phone: [facility] 06-04-2022 14:15-0400 Body height 165.1 cm Imad Asaad Other [employer] Other 06-04-2022 14:15-0400 Body mass index (BMI) [Ratio] 32.95 kg/m2 Imad Asaad Other [employer] Other 06-04-2022 14:15-0400 Body weight 89.81 kg Imad Asaad Other [employer] Other 06-04-2022 14:15-0400 Diastolic blood pressure 90 mm[Hg] Imad Asaad Other [employer] Other 06-04-2022 14:15-0400 Systolic blood pressure 145 mm[Hg] Imad Asaad Other [employer] Other 05-18-2022 11:46-0500 Body temperature 97.8 [degF] MD Kala Lloyd Work Phone: [facility] 05-18-2022 11:46-0500 Body weight 89.4 kg MD Kala Lloyd Work Phone: [facility] 05-18-2022 11:46-0500 Diastolic blood pressure 86 mm[Hg] MD Kala Lloyd Work Phone: [facility] 05-18-2022 11:46-0500 Heart rate 94 /min MD Kala Lloyd Work Phone: [facility] 05-18-2022 11:46-0500 Respiratory rate 16 /min MD Kala Lloyd Work Phone: [facility] 05-18-2022 11:46-0500 SaO2% (BldA) [Mass fraction] 98 % MD Kala Lloyd Work Phone: [facility] 05-18-2022 11:46-0500 Systolic blood pressure 149 mm[Hg] MD Kala Lloyd Work Phone: [facility] 04-12-2022 12:40-0500 Body height 165.1 cm Nir Danis Other [employer] Other 04-12-2022 12:40-0500 Body mass index (BMI) [Ratio] 32.85 kg/m2 Nir Danis Other [employer] Other 04-12-2022 12:40-0500 Body temperature 96.7 [degF] Nir Danis Other [employer] Other 04-12-2022 12:40-0500 Body weight 89.54 kg Nir Danis Other [employer] Other 04-12-2022 12:40-0500 Diastolic blood pressure 84 mm[Hg] Nir Danis Other [employer] Other 04-12-2022 12:40-0500 Respiratory rate 18 /min Nir Danis Other [employer] Other 04-12-2022 12:40-0500 SaO2% (BldA) [Mass fraction] 97 % Nir Danis Other [employer] Other 04-12-2022 12:40-0500 Systolic blood pressure 139 mm[Hg] Nir Danis Other [employer] Other 09-14-2021 13:00-0400 Body height 165.1 cm Nir Danis Other [employer] Other 09-14-2021 13:00-0400 Body mass index (BMI) [Ratio] 34.44 kg/m2 Nir Danis Other [employer] Other 09-14-2021 13:00-0400 Body temperature 96.6 [degF] Nir Danis Other [employer] Other 09-14-2021 13:00-0400 Body weight 93.9 kg Nir Danis Other [employer] Other 09-14-2021 13:00-0400 Diastolic blood pressure 80 mm[Hg] Nir Danis Other [employer] Other 09-14-2021 13:00-0400 Respiratory rate 18 /min Nir Danis Other [employer] Other 09-14-2021 13:00-0400 SaO2% (BldA) [Mass fraction] 97 % Nir Danis Other [employer] Other 09-14-2021 13:00-0400 Systolic blood pressure 132 mm[Hg] Nir Danis Other [employer] Other 04-22-2020 14:49-0500 Body height 165.1 cm MD Kala Lloyd Work Phone: [facility] Encounters Encounter Date Encounter Type Care Provider Facility Start: 12-23-2023 End: 12-23-2023 ambulatory LINDY VALENTINO Not Available Start: 12-11-2023 End: 12-11-2023 ambulatory LIVE KWON [place] [facility] Start: 12-11-2023 End: 12-11-2023 Office outpatient visit 25 minutes Live Kwon PA-C Work Phone: [facility] Comment on above: Lumbar spondylosis ( Primary Dx); Disorder of sacrum; Spinal stenosis of lumbar region with neurogenic claudication Start: 12-02-2023 End: 12-02-2023 ambulatory LINDY K JAS Not Available Start: 11-23-2023 End: 11-23-[address] BARBOUR [facility] Start: 11-22-2023 End: 11-22-2023 ambulatory [facility] Start: 11-22-2023 End: 11-22-2023 [facility]ulatory [facility] Start: 11-21-2023 End: 11-21-2023 ambulatory TAMMIE Chavez Work Phone: [facility] Work Phone: Start: 11-21-2023 End: 11-21-2023 Patient encounter procedure TAMMIE Chavez Work Phone: [facility] Jean Work Phone: Start: 11-13-2023 Non-patient / Non-visit TAMMIE Chavez Work Phone: [facility] Work Phone: Start: 11-12-2023 ambulatory LIVE N [facility] Start: 11-07-2023 End: 11-07-2023 ambulatory ELIAZAR PIRES Not Available Start: 11-04-2023 End: 11-04-2023 ambulatory LINDY DHILLONRO Not Available Start: 10-29-2023 Registered Recurring TAMMIE Chavez Work Phone: [facility] Start: 10-24-2023 End: 11-10-2023 ambulatory LIVE N [facility] Start: 10-23-2023 End: 10-23-2023 ambulatory LIVE N [facility] Start: 10-21-2023 End: 10-21-2023 ambulatory LAVERNE PORTER Not Available Start: 10-21-2023 End: 10-21-2023 ambulatory RALPH OJEDA Not Available Start: 10-01-2023 End: 10-01-2023 ambulatory TAMMIE Chavez Work Phone: [facility] Work Phone: Start: 10-01-2023 End: 10-01-2023 Patient encounter procedure TAMMIE Chavez Work Phone: [facility] Work Phone: Start: 09-30-2023 End: 09-30-2023 Patient encounter procedure TAMMIE Chavez Work Phone: [facility] [place] Work Phone: Start: 09-30-2023 End: 09-30-2023 ambulatory TAMMIE Chavez Work Phone: [facility] Work Phone: Start: 09-28-2023 End: 09-28-2023 ambulatory SYEDA Ugalde HUI [facility] Start: 09-27-2023 End: 09-27-2023 ambulatory [facility] Start: 09-24-2023 Registered Recurring TAMMIE Chavez Work Phone: [facility] Start: 09-03-2023 End: 09-03-2023 ambulatory LINDY VALENTINO Not Available Start: 08-29-2023 End: 08-29-2023 ambulatory ELIAZAR PIRES Not Available Start: 08-23-2023 End: 08-23-2023 [facility]ulatory [facility] Start: 08-12-2023 End: 08-12-2023 ambulatory LINDY CORMIERDARO Not Available Start: 08-10-2023 End: 08-10-2023 ambulatory JOB Tatyana CLINTON [facility] Start: 08-09-2023 End: 08-09-2023 ambulatory [facility] Start: 07-24-2023 End: 07-24-2023 ambulatory LINDY CORMIERDARO Not Available Start: 07-02-2023 End: 07-02-2023 ambulatory LAVERNE PORTER Not Available Start: 07-01-2023 End: 07-01-2023 ambulatory KALA LLOYD Not Available Start: 06-28-2023 End: 06-28-2023 ambulatory [facility] Beti [facility] Start: 06-21-2023 End: 06-21-2023 Emergency department patient visit KAYLIE R SCOTT [facility] Start: 06-20-2023 End: 06-20-2023 ambulatory ELIAZAR PIRES Not Available Start: 06-12-2023 End: 06-12-2023 Office outpatient visit 25 minutes Live Kwon PA-C Work Phone: [facility] Comment on above: Lumbar spondylosis ( Primary Dx) Start: 06-12-2023 End: 06-12-2023 ambulatory LIVE KWON [facility] Start: 05-18-2023 End: 05-18-[address] Ugalde ANGLE [facility] Start: 05-17-2023 End: 05-17-2023 ambulatory [facility] Beti [facility] Start: 04-26-2023 Telephone encounter Gabriella Wong RN [facility] Comment on above: Surgical Or Dental C learance Start: 04-25-2023 End: 04-25-2023 ambulatory [facility] Work Phone: Start: 04-25-2023 End: 04-25-2023 Patient encounter procedure [facility] Ne[facility] Jean Work Phone: Start: 04-22-2023 End: 04-22-2023 ambulatory KAYLIE CHAVEZ Not Available Start: 04-16-2023 Registered Recurring [employer] Bakari Chavez Work Phone: [facility] Start: 04-15-2023 Chart abstracting Lindy Valentino [facility] Work Phone: [facility] Start: 04-15-2023 End: 04-15-2023 ambulatory LINDY VALENTINO Not Available Start: 04-11-2023 End: 04-11-2023 ambulatory ELIAZAR PIRES Not Available Start: 04-11-2023 End: 04-11-2023 Office outpatient visit 15 minutes Eliazar Pires DPM Work Phone: [facility] Comment on above: Metatarsalgia, left foot (Primary Dx); Diabetes 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 polyneuropathy, with long-term current use of insulin ([facility]); Onychomycosis; Toe pain, right; Toe pain, left Start: 04-05-2023 End: 04-05-2023 ambulatory KALA LLOYD Not Available Start: 04-02-2023 End: 04-02-2023 ambulatory LAVERNE Nvoa [place] Not Available Start: 04-01-2023 End: 04-01-2023 ambulatory [facility] Start: 04-01-2023 End: 04-01-2023 [facility] Start: 03-29-2023 End: 03-29-2023 ambulatory [facility] Start: 03-29-2023 End: 04-01-2023 ambulatory [facility] Start: 03-28-2023 Telephone encounter Don Taylor RN [facility] Comment on above: Direct LDL Start: 03-27-2023 End: 04-11-2023 ambulatory [facility] Start: 03-26-2023 Telephone encounter Louise Judge [facility] Start: 03-15-2023 End: 03-15-2023 ambulatory BRANDON LAUGHLIN Not Available Start: 03-15-2023 End: 03-15-2023 Office outpatient visit 25 minutes Dennis Foster MD Work Phone: [facility] Comment on above: Chest pain, unspecif ied type (Primary Dx); Primary hypertension; Familial hypercholesterolemia; Abnormal EKG Start: 03-15-2023 End: 03-15-2023 ambulatory [facility] Start: 03-14-2023 Telephone encounter Ramila Jones CMA [facility] Start: 02-27-2023 End: 02-27-2023 ambulatory LIVE KWON [facility] Start: 02-20-2023 End: 02-20-2023 ambulatory LINDY Naik JAS Not Available Start: 02-14-2023 End: 02-14-2023 ambulatory ELIAZAR PIRES Not Available Start: 02-06-2023 End: 02-06-2023 ambulatory LINDY VALENTINO Not Available Start: 01-28-2023 End: 01-28-2023 ambulatory BRANDON LAUGHLIN Not Available Start: 01-21-2023 End: 01-21-2023 ambulatory KAYLIE CHAVEZ Not Available Start: 10-18-2022 End: 10-18-2022 ambulatory Nir Danis Other [employer] Other Start: 10-18-2022 Office outpatient visit 25 minutes Nir Danis [facility] Start: 08-09-2022 End: 08-09-2022 ambulatory MD Kala Lloyd Work Phone: [facility] Work Phone: Start: 08-09-2022 End: 08-09-2022 Patient encounter procedure MD Kala Lloyd Work Phone: [facility] Work Phone: Start: 07-25-2022 End: 07-25-2022 Patient encounter procedure MD Kala Lloyd Work Phone: [facility] [place] Work Phone: Start: 07-23-2022 End: 07-23-2022 ambulatory MD Kala Lloyd Work Phone: [facility] Work Phone: Start: 07-23-2022 End: 07-23-2022 Patient encounter procedure MD Kala Lloyd Work Phone: [facility] [place] Work Phone: Start: 07-18-2022 Telephone encounter Nir Danis [facility] Start: 07-18-2022 End: 07-19-2022 ambulatory NIR DANIS [facility] [employer] Other Start: 07-12-2022 End: 07-12-2022 Admission to same day surgery center MD Kala Lloyd Work Phone: [facility] Work Phone: Start: 07-12-2022 End: 07-12-2022 ambulatory MD Kala Lloyd Work Phone: [facility] Work Phone: Start: 07-10-2022 Registered Recurring MD Kala tam Work Phone: [facility] Start: 07-02-2022 End: 07-03-2022 ambulatory NIR DANIS Facility: Start: 06-04-2022 End: 06-04-2022 ambulatory Imad Asaad Other [employer] Other Start: 06-04-2022 Office outpatient ne w 45 minutes Imad Asaad [facility] Start: 05-18-2022 End: 05-18-2022 ambulatory MD Kala Lloyd Work Phone: [facility] Work Phone: Start: 05-18-2022 End: 05-18-2022 Registered Recurring MD Kala Lloyd Work Phone: [facility] Work Phone: Start: 04-12-2022 End: 04-13-2022 ambulatory NIR DANIS [facility] [employer] Other Start: 04-12-2022 Office outpatient visit 25 minutes Nir Danis [facility] Jean Start: 04-05-2022 End: 04-06-2022 ambulatory NIR DANIS Facility: Start: 02-07-2022 End: 02-08-2022 ambulatory Eliazar Pires Facility:[facility] Start: 02-07-2022 End: 02-07-2022 Lab Drop off Eliazar Pires [facility] Start: 02-05-2022 End: 02-06-2022 ambulatory Eliazar Pires Facility:[facility] Start: 02-05-2022 End: 02-05-2022 Patient encounter procedure Eliazar Pires [facility] Start: 01-08-2022 End: 01-09-2022 ambulatory Eliazar Pires Facility:[facility] Start: 01-08-2022 End: 01-08-2022 Patient encounter procedure Eliazar Pires [facility] Start: 09-14-2021 End: 09-14-2021 ambulatory Nir Danis Other [employer] Other Start: 09-14-2021 Office outpatient visit 25 minutes Nir Danis [facility] Start: 09-12-2021 End: 09-13-2021 ambulatory NIR DANIS Facility:[facility] Start: 08-30-2021 End: 08-31-[address] DOCTOR HURT Facility:[facility] Procedures Date Procedure Procedure Detail Performing Clinician Start: 09-30-2023 X-ray of lumbar spine, six views including bending views TAMMIE Chavez Work Phone: Start: 03-15-2023 Ecg routine ecg w/least 12 lds w/i&r Dennis Foster MD Work Phone: Start: 03-15-2023 Follow-up visit Follow-up DENNIS FOSTER Start: 09-05-2022 Colonoscopy Eliazar Pires DPM Work [...] 09-05-2032 Screening for malignant neoplasm of colon [facility] Start: 12-10-2024 Adult BMI Screening Adult BMI Screening [facility] Start: 12-10-2024 Tobacco Screening Tobacco Screening [facility] Start: 06-11-2024 Adult BMI Screening Adult BMI Screening [facility] Start: 06-11-2024 Tobacco Screening Tobacco Screening [facility] Start: 05-16-2024 Tobacco Screening Tobacco Screening [facility] Start: 04-15-2024 End: 04-15-2024 Patient encounter procedure 04/15/2024 1:45 PM EST Office Visit [facility] [address] [place] [phone] Live Kwon, PASadiq [address] [facility] [place] [address] [facility] Start: 04-01-2024 Adult BMI Screening Adult BMI Screening [facility] Start: 04-01-2024 Tobacco Screening Tobacco Screening [facility] Start: 03-15-2024 Adult BMI Screening Adult BMI Screening [facility] Start: 03-15-2024 Tobacco Screening Tobacco Screening [facility] Start: 02-28-2024 Tobacco Screening Tobacco Screening [facility] Start: 01-23-2024 Adult BMI Screening Adult BMI Screening [facility] Start: 01-21-2024 End: 01-21-2024 Patient encounter procedure 01/21/2024 12:30 PM EST Office Visit [facility] [address] [place] [address] Ricky Miles PA [address], [address] [place] [address] [facility] Start: 12-27-2023 End: 12-27-2023 Admission to same day surgery center 12/27/2023 1:57 PM EDT - 12/27/2023 2:04 PM EDT Surgery [facility] [address] [facility] [phone] Reymundo Giron MD [address] [facility] [place] [id number] INJECTION SPINE TRANSFORAMINAL Left 4,5 NRoot [89034 (CPT )] [facility] Comment on above: INJECTION SPINE TRANSFORAMINAL Left 4,5 NRoot [47141 (CPT )] Start: 12-27-2023 End: 12-27-2023 Njx anes&/strd w/img tfrml edrl lmbr/sac 1 lvl INJECTION SPINE TRANSFORAMINAL Spinal stenosis of lumbar region with neurogenic claudication 12/27/2023 1:57 PM EDT [facility] Start: 12-27-2023 Subsequent hospital visit by physician 12/27/2023 1:57 PM EDT Hospital Encounter [facility] [address] [place] [phone] Reymundo Giron MD [address] [facility] [place], [place] [id number] [facility] Start: 11-10-2023 Influenza vaccination Influenza Vaccine [facility] Start: 09-28-2023 Glaucoma screening Diabetes: Retinopathy Screening [facility] Start: 09-08-2023 Influenza vaccination Influenza Vaccine (#1) [facility] Comment on above: Postponed from 11/09/2022 (Patient Refus ed) Start: 08-14-2023 End: 08-14-2023 Patient encounter procedure 08/14/2023 12:45 PM EDT Office Visit [facility] [address] [place] [address] Live Kwon PA-C [address], [address] [place] [address] [facility] Start: 07-12-2023 End: 07-12-2023 Admission to same day surgery center 07/12/2023 11:00 AM EDT - 07/12/2023 11:11 AM EDT Surgery [facility] [address] [place] [phone] Reymundo Giron MD [address] [place] [address] RADIOFREQUENCY ABLATION SPINAL Left L 2/3, 3/4 [37538 (CPT )] [facility] Comment on above: RADIOFREQUENCY ABLATION SPINAL Left L 2/ 3, 3/4 [75056 (CPT )] Start: 07-12-2023 End: 07-12-2023 Dstr nrolytc agnt parverteb fct sngl lmbr/sacral RADIOFREQUENCY ABLATION SPINAL Lumbar spondylosis 07/12/2023 11:00 AM EDT [facility] Start: 07-12-2023 Subsequent hospital visit by physician 07/12/2023 11:00 AM EDT Hospital Encounter [facility] [address] [place] [phone] Reymundo Giron MD [address] [place] [address] [facility] Start: 07-02-2023 End: 07-02-2023 Patient encounter procedure 07/02/2023 2:15 PM EDT Office Visit [facility] [address] [place] [phone] Laverne Porter, [address] [place] [address] [facility] Start: 07-02-2023 Hemoglobin A1c measurement Diabetes: Hemoglobin A1C [facility] Start: 06-28-2023 End: 06-28-2023 Admission to same day surgery center 06/28/2023 11:00 AM EDT - 06/28/2023 11:11 AM EDT Surgery [facility] [address] [place] [phone] Reymundo Giron MD [address] [place], [place] [phone] RADIOFREQUENCY ABLATION SPINAL Right L 2/3 3/4 [55237 (CPT )] [facility] Comment on above: RADIOFREQUENCY ABLATION SPINAL Right L 2 /3 3/4 [61562 (CPT )] Start: 06-28-2023 End: 06-28-2023 Dstr nrolytc agnt parverteb fct sngl lmbr/sacral RADIOFREQUENCY ABLATION SPINAL Lumbar spondylosis 06/28/2023 11:00 AM EDT [facility] Start: 06-28-2023 Subsequent hospital visit by physician 06/28/2023 11:00 AM EDT Hospital Encounter [facility] [address] [place] [phone] Reymundo Giron MD [address] [place], [place] [phone] [facility] Start: 06-20-2023 End: 06-20-2023 Patient encounter procedure 06/20/2023 2:00 PM EDT Office Visit [facility] [address] [place] [address] Eliazar Pires, DPM [address] [facility] [address] [place] [address] [facility] Start: 06-12-2023 End: 06-12-2023 Patient encounter procedure 06/12/2023 10:45 AM EDT Office Visit [facility] [address] [place] [phone] Live Kwon PA-C [address] [place] [address] [facility] Start: 04-17-2023 End: 04-17-2023 Patient encounter procedure 04/17/2023 2:30 PM EST Office Visit [facility] [address] [place] [phone] Live Kwon PA-C [address] [place], [place] [id number] [facility] Start: 04-15-2023 End: 04-15-2023 Clinical Support 04/15/2023 11:00 AM EST Clinical Support [facility] [address] [place] [address] Lindy Valentino, [facility] [address] [place] [address] [facility] Start: 04-01-2023 End: 04-01-2023 Patient encounter procedure [facility] Start: 03-29-2023 End: 03-29-2023 Admission to same day surgery center 03/29/2023 10:34 AM EST - 03/29/2023 10:40 AM EST Surgery [facility] [address] [place] [address] Reymundo Giron MD [address] [place] [phone] INJECTION BLOCK NERVE MEDIAL BRANCH Bilat L 2/3, 3/4 [43603 (CPT )] [facility] Comment on above: INJECTION BLOCK NERVE MEDIAL BRANCH Bila t L 2/3, 3/4 [15086 (CPT )] Start: 03-29-2023 End: 03-29-2023 Njx dx/ther agt pvrt facet jt lmbr/sac 1 level INJECTION BLOCK NERVE MEDIAL BRANCH Lumbar spondylosis 03/29/2023 10:34 AM EST [facility] Start: 03-29-2023 Subsequent hospital visit by physician [facility] Start: 03-29-2023 End: 03-29-2023 Patient encounter procedure 03/29/2023 8:55 AM EST Appointment [facility] [address] [place] [address] Reymundo Giron MD [address] [facility] [place] [address] [facility] Start: 03-27-2023 End: 03-27-2023 Patient encounter procedure [facility] Start: 03-22-2023 End: 03-15-2024 Basic metabolic 2000 panel - Serum or Plasma Basic Metabolic Panel Lab Routine Primary hypertension Familial hypercholesterolemia Chest pain, unspecified type Abnormal EKG Expected: 03/22/2023 (Approximate), Expires: 03/15/2024 [facility] Comment on above: Expected: 03/22/2023 (Approximate), Expi res: 03/15/2024 Start: 03-22-2023 End: 03-15-2024 CBC W Auto Differential panel - Blood CBC auto differential Lab Routine Primary hypertension Familial hypercholesterolemia Chest pain, unspecified type Abnormal EKG Expected: 03/22/2023, Expires: 03/15/2024 [facility] Comment on above: Expected: 03/22/2023, Expires: Start: 03-22-2023 End: 03-15-2024 Lipid 1996 panel - Serum or Plasma Lipid profile Lab Routine Primary hypertension Familial hypercholesterolemia Chest pain, unspecified type Abnormal EKG Expected: 03/22/2023, Expires: 03/15/2024 [facility] [employer] [facility] Comment on above: Expected: 03/22/2023, Expires: Start: 03-22-2023 End: 03-14-2024 NM Heart Perfusion W adenosine and W radionuclide IV Nuc stress Lexiscan/Exercise Cardiac Services Routine Chest pain, unspecified type Abnormal EKG Expected: 03/22/2023, Expires: 03/14/2024 [facility] Work Phone: Comment on above: Expected: 03/22/2023, Expires: Start: 03-15-2023 End: 03-15-2023 Patient encounter procedure 03/15/2023 1:00 PM EST Office Visit [facility] [address] [place] [address] Dennis Foster MD [address] [place] [address] [facility] Start: 03-09-2023 Screening for malignant neoplasm of breast Mammogram [facility] Start: 11-09-2022 Influenza vaccination Influenza Vaccine [facility] Start: 08-09-2022 [facility] Start: 07-12-2022 [facility] Start: 04-27-2022 [facility] Start: 12-24-2021 Administration of varicella zoster vaccine Zoster (Shingles) Vaccine (1 of 2) [facility] Start: 12-24-1990 DTaP,Tdap and Td Vaccines (1 - Tdap) DTaP,Tdap and Td Vaccines (1 - Tdap) [facility] Start: 12-24-1989 Adult BMI Follow Up Plan Adult BMI Follow Up Plan [facility] Start: 12-24-1989 Diabetic foot examination Diabetic Foot Exam [facility] Start: 1983 Depression Screening Depression Screening [facility] Start: 1971 Glaucoma screening Diabetic Ophthalmology Exam [facility] Start: 1971 Screening for malignant neoplasm of colon [facility] Start: 1971 Tobacco Counseling Tobacco Counseling [facility] End: 03-28-2024 Cholesterol in LDL [Mass/volume] in Serum or Plasma LDL cholesterol, direct Lab Routine Familial hypercholesterolemia 1 Occurrences starting 03/28/2023 until 03/28/2024 [facility] Work Phone: Comment on above: 1 Occurrences starting 03/28/2023 until 03/28/2024 Njx dx/ther agt pvrt facet jt lmbr/sac 1 level INJECTION BLOCK NERVE MEDIAL BRANCH Lumbar spondylosis [facility] Patient Education Gastritis (DC) [facility] Work Phone: Renal function 1999 panel - Serum or Plasma [facility] Renal function 1999 panel - Serum or Plasma [facility] Immunizations Immunization Date Immunization Notes Care Provider Page celestin 06-21-2021 hepatitis B vaccine, adult dosage Eliazar Pires DPM Work Phone: [facility] 03-01-2020 hepatitis A vaccine, adult dosage Eliazar Pires DPM Work Phone: [facility] 03-01-2020 hepatitis B vaccine, adult dosage Eliazar Pires DPM Work Phone: [facility] 01-24-2020 hepatitis A vaccine, adult dosage Eliazar Pires DPM Work Phone: [facility] 01-24-2020 pneumococcal polysaccharide vaccine, 23 valent Eliazar Pires DPM Work Phone: [facility] 01-24-2020 Seasonal, quadrivalent, recombinant, injectable influenza vaccine, preservative free Eliazar Pires DPM Work Phone: [facility] 01-24-2020 influenza virus vaccine, unspecified formulation Ramila Jones [facility] 12-18-2018 hepatitis A vaccine, adult dosage Eliazar Pires DPM Work Phone: [facility] 12-18-2018 Seasonal, quadrivalent, recombinant, injectable influenza vaccine, preservative free Eliazar Pires DPM Work Phone: [facility] 12-13-2016 influenza virus vaccine, unspecified formulation [facility] 12-13-2016 influenza, injectable, quadrivalent, preservative free Eliazar Pires DPM Work Phone: [facility] 12-13-2016 influenza, injectable,quadrival ent, preservative free, pediatric Nir Danis Other [employer] Other NEGATED: Highlighted row has not occurred! 9 influenza, injectable,quadrival ent, preservative free, pediatric Patient Objection Nir Danis Other [employer] Other Payers Date Payer Category Payer Medicaid [id number] 2022 Unknown [id number] 1971 Unknown [id number] [id number] 1971 Unknown [id number] [id number] 1971 Unknown [id number] 2.16.8 [id number] 1971 Unknown [id number] 2.16.84 [id number] 1971 Unknown [id number] 2.16.84 [id number] 1971 Unknown [id number] 2.16.84 [id number] 1971 Unknown [id number] 2.16.84 0.1.351481.3.579.2.593 1970 Unknown [id number] 2.16.84 0.1.036593.3.579.2.593 1970 Unknown [id number] 2.16.84 0.1.141661.3.579.2.593 1971 Unknown [id number] 2.16.8 40.1.504265.3.579.2.1286 1971 Unknown [id number] 2.16.8 40.1.310989.3.579.2.1286 1971 Unknown [id number] 2.16.8 40.1.692138.3.579.2.1286 1971 Unknown [id number] 2.16.8 40.1.594456.3.579.2.1286 1971 Unknown [id number] 2.16.8 40.1.178682.3.579.2.1286 1971 Unknown [id number] 2.16.8 40.1.631364.3.579.2.1286 1971 Unknown [id number] 2.16.8 40.1.688684.3.579.2.1286 1971 Unknown [id number] 2.16.8 40.1.024338.3.579.2.1286 1971 Unknown [id number] 2.16.8 40.1.884869.3.579.2.1286 1971 Unknown [id number] 2.16.8 40.1.254519.3.579.2.1286 1971 Unknown [id number] 2.16.8 40.1.801637.3.579.2.1286 1971 Unknown [id number] 2.16.8 40.1.200323.3.579.2.1286 1971 Unknown [id number] 2.16.8 40.1.864278.3.579.2.1286 1971 Unknown [id number] 2.16.8 40.1.806497.3.579.2.1286 1971 Unknown [id number] 2.16.8 40.1.844266.3.579.2.1286 1971 Unknown [id number] 2.16.8 40.1.587163.3.579.2.128 1971 Unknown [id number] 2.16.8 40.1.906315.3.579.2.1286 1971 Unknown [id number] 2.16.8 40.1.994375.3.579.2.128 1971 Unknown [id number] 2.16.8 40.1.685682.3.579.2.1285 1971 Unknown [id number] 2.16.8 40.1.089470.3.579.2.1285 1971 Unknown [id number] 2.16.8 40.1.671944.3.579.2.1286 1971 Unknown [id number] 2.16.8 40.1.584117.3.579.2.1286 1971 Unknown [id number] 2.16.8 40.1.990564.3.579.2.1286 1971 Unknown [id number] 2.16.8 40.1.658543.3.579.2.1286 1971 Unknown [id number] 2.16.8 40.1.867698.3.579.2.128 1971 Unknown [id number] 2.16.84 0.1.386897.3.579.2.1286 1971 Unknown [id number] 2.16.8 40.1.379148.3.579.2.1285 1971 Unknown [id number] 2.16.8 40.1.162018.3.579.2.1285 1971 Unknown [id number] 2.16.84 0.1.187764.3.579.2.1286 1971 Unknown [id number] 2.16.84 0.1.234519.3.579.2.1286 1971 Unknown [id number] 2.16.84 0.1.520186.3.579.2.1286 1971 Unknown [id number] 2.16.8 40.1.564359.3.579.2.1286 1971 Unknown [id number] 2.16.8 40.1.386990.3.579.2.1286 1971 Unknown [id number] 2.16.8 40.1.419890.3.579.2.1286 1971 Unknown [id number] 2.16.8 40.1.488270.3.579.2.1286 1971 Unknown [id number] 2.16.84 0.1.297658.3.579.2.1286 1971 Unknown [id number] 2.16.84 0.1.585609.3.579.2.1286 1971 Unknown [id number] 2.16.84 0.1.551594.3.579.2.1259 1971 Unknown [id number] 2.16.84 0.1.955290.3.579.2.1259 1971 Unknown [id number] 2.16.84 0.1.994943.3.579.2.1259 1971 Unknown [id number] 2.16.84 0.1.339566.3.579.2.1259 1971 Unknown [id number] 2.16.84 0.1.177429.3.579.2.1259 1971 Unknown [id number] 2.16.84 0.1.573048.3.579.2.1259 1971 Unknown [id number] 2.16.84 0.1.877775.3.579.2.1259 1971 Unknown [id number] 2.16.84 0.1.652170.3.579.2.1259 1971 Unknown [id number] 2.16.84 0.1.775706.3.579.2.1259 1971 Unknown [id number] 2.16.84 0.1.409256.3.579.2.1259 1971 Unknown [id number] 2.16.84 0.1.244636.3.579.2.1259 1971 Unknown [id number] 2.16.84 0.1.668573.3.579.2.1259 1971 Unknown [id number] 2.16.84 0.1.085506.3.579.2.1259 1971 Unknown [id number] 2.16.84 0.1.767304.3.579.2.1259 1971 Unknown [id number] 2.16.84 0.1.225173.3.579.2.1259 1971 Unknown [id number] 2.16.84 0.1.597899.3.579.2.1259 1971 Unknown [id number] 2.16.84 0.1.351887.3.579.2.1259 1971 Unknown [id number] 2.16.84 0.1.364498.3.579.2.1259 1971 Unknown [id number] 2.16.84 0.1.286081.3.579.2.1259 1971 Unknown [id number] 2.16.840 .1.500348.3.579.2.1259 1971 Unknown [id number] 2.16.840 .1.144367.3.579.2.1259 1971 Unknown [id number] 2.16.840 .1.130402.3.579.2.1259 1971 Unknown [id number] 2.16.840 .1.106268.3.579.2.1259 1971 Unknown [id number] 2.16.840 .1.007550.3.579.2.1259 1971 Unknown [id number] 2.16.840. 1.657412.3.579.2.1259 1959 Unknown [id number] 2.1 6.840.1.238153.19 Medicaid [place] Advantage [id number] Self-pay Self Pay [id number] Social History Date Type Detail Facility Unknown if ever smoked [employer] Other Start: 12-31-2018 End: 04-21-2020 Sex Assigned At [facility] Tobacco smoking status No Smokin g Status Entered [facility] Start: 04-27-2022 End: 09-05-2022 Tobacco smoking status [facility] Smoker (finding) [facility] Start: 1970 Sex Assigned At Female [facility] Start: 12-19-2022 End: 10-23-2023 Tobacco smoking status [facility] Smokes tobacco daily [facility] History of tobacco use Cigarette Smoker P [facility] Start: 04-21-2020 End: 12-19-2022 Cigarettes smoked current (pack per day) - Reported 1 [facility] Start: 12-19-2022 End: 10-23-2023 Tobacco use and exposure Smokeless tobacco non-user [facility] Start: 02-27-2023 End: 12-11-2023 Alcohol intake Lifetime non-drinker (finding) [facility] Frequency of Alcohol Consumption Never [facility] Start: 12-19-2022 Tobacco Comment One pack per week [facility] Start: 05-23-2022 Gender identity Identifies as female gender (finding) [facility] Start: 01-22-2023 Sexual orientation Choose not to disclose [facility] How often to you hav e a drink containing alcohol? Never [facility] Start: 11-20-2022 Education 13 [facility] Start: 03-15-2023 Tobacco Comment Smokes a pack a week. 2-3 cigarettes a day. [facility] Start: 08-04-2022 Alcohol Comment caffeine intake: more than 4 cups per day/ 2 pots of coffee. [facility] Start: 1970 Sex Assigned At Not on file [facility] Medical Equipment Procedure Code Equipment Code Equipment Origin al Text Equipment Identifier Dates CANCELLOUS COARS E 7.5CC FDA Start: 08-27-2019 Bone-screw inter nal spinal fixation system, non-sterile ()[id number] FDA Start: 08-27-2019 Bone-screw inter nal spinal fixation system, non-sterile ()[id number] FDA Start: 08-27-2019 Bone-screw inter nal spinal fixation system, non-sterile ()[id number] FDA Start: 08-27-2019 Bone-screw inter nal spinal fixation system, non-sterile ()[id number] FDA Start: 08-27-2019 Bone-screw inter nal spinal fixation system, non-sterile ()[id number] FDA Start: 08-27-2019 Polymeric spinal fusion cage, non-sterile ()[id number] FDA Start: 08-27-2019 Polymeric spinal interbody fusion cage ()[id number] FDA Start: 08-27-2019 XLIF 2 LEVEL MAS REDUCTION FDA Start: 08-27-2019 Dura mater sealant ()[id number] FDA Start: 08-27-2019 Dura mater graft , bovine ()[id number] [id number] FDA Start: 08-27-2019 Spinal fusion gr aft kit ()[id number] [id number] FDA Start: 08-27-2019 Bone-screw inter nal spinal fixation system, non-sterile ()[id number] FDA Start: 08-27-2019 Bone-screw inter nal spinal fixation system, non-sterile ()[id number] FDA Start: 08-27-2019 CANCELLOUS COARS E 7.5CC FDA Start: 08-27-2019 XLIF 2 LEVEL MAS REDUCTION FDA Start: 08-27-2019 CANCELLOUS COARS E 7.5CC FDA Start: 08-27-2019 XLIF 2 LEVEL MAS REDUCTION FDA Start: 08-27-2019 CANCELLOUS COARS E 7.5CC FDA Start: 08-27-2019 XLIF 2 LEVEL MAS REDUCTION FDA Start: 08-27-2019 Check sugars bid [id number] Start: 04-02-2023 CANCELLOUS COARS E 7.5CC FDA [...] Desired Activity /State Clinical Notes 04-26-2020 to 12-11-2023 Live Kwon PA-C - 12/11/2023 1:30 PM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 Other 02-17-2023 Progress note Author Isela Downs [facility] April 27, 2022 3:36pm Note Date/Time April 27, 2022 9:49am [facility] [place] [address] Hem/Onc Follow Up Note - OP Signed Patient: Keya Ley MR#: [id number] : 1970 Acct:[id number] Age/Sex: 51 / F Type: REG RCR Copies to: MD Kaylie Eason, SWITCHBOARD WIRER, DIE TRY OUT WORKER STAMPING Kala Lloyd MD~ Subjective Date/Time of Service: [...] Negative for environmental allergies and food allergies. [facility] - History Attestation statement: The following information [...] Type: None Social History Comments: lives in [facility] Home Medications & Allergies Allergies bee pollen [...] 90.3 kg - Vital Signs Vital Signs: 02/17/23 09:42 Temperature 97.8 F Pulse Rate [Left [...] 57, totalprotein 6.9, albumin 3.6 Outside Labs: [facility] nephrology labs 04/05/2022: White blood cells 11,700, [...] 304.32, urine protein/creatinine ratio 0.66 - Impressions [facility] medical specialists 04/25/2022 CT chest without [...] for coordination of care (as documented) and zbjo-el-gqpz counseling of patient and/or family. Dictated By: Isela Downs MD DD/ 0949 Signed By: <Electronically signed by MD Isela Downs> 04/27/22 9133 [facility] Work Phone: [phone] [facility] Evaluation note* Encounter Date Diagnosis [...] adenoma including [place], pheochromocytoma and primary hyperaldosteronism. Apr, Type 2 [...] to see the patient for further evaluation. [employer] Other 07-07-2022 Evaluation note* Encounter Date Diagnosis [...] her to increase oral magnesium twice daily [employer] Other 05-23-2021 Progress note Author Josh Bhatia [facility] July 31, 2020 11:28am Note Date/Time July 31, 2020 11:22 am [facility] [place] [address] Hem/Onc Follow Up Note - OP Signed Patient: Keya Ley MR#: [id number] : 1970 Acct:[id number] Age/Sex: 49 / F Type: REG RCR Copies to: Kaylie Chavez APRN, DIE TRY OUT WORKER STAMPING Kala Lloyd MD~ Subjective Date/Time of Service: [...] Type: None Social History Comments: lives in [facility] Home Medications & Allergies Allergies bee pollen [...] for coordination of care (as documented) and udve-ch-pqkh counseling of patient and/or family. Dictated By: Josh Bhatia MD DD/ 19 Signed By: <Electronically signed by Josh Bhatia MD> 07/31/208 [facility] Work Phone: [phone]) 151-477302-16-2021 Consult note Author Josh Bhatia [facility] April 26, 2020 3:37pm Note Date/Time April 22, 2020 3:36pm [facility] [place] [address] Hem/Onc Consult Note - OP Signed with Addenda Patient: Keya Ley MR#: [id number] : 1970 Acct:[id number] Age/Sex: 49 / F Type: REG RCR Copies to: Kaylie Chavez APRN, DIE TRY OUT WORKER STAMPING Kala Lloyd MD~ ADDENDUM1 Flow cytometry showed [...] Referring Provider/PCP: Referring Provider: Kaylie Chavez APRN, MARKET RESEARCH WORKER-C PCP: Kala Lloyd MD - History of Present Illness Reason for Consultation: Leukocytosis Chief Complaint: No other concerns voiced today. HPI: Dear Ms. Chavez, I have seen you patient in consultation, [...] chills, or lymphadenopathy. She denied active infection. [facility] - Medical History Medical History: Medical History [...] Type: None Social History Comments: lives in [facility] Home Medications & Allergies Allergies bee pollen [...] 15.7, platelet 260, neutrophils 59%, lymphocytes 33.6%, [id number] Assessment and Plan (1) Leukocytosis Qualifiers: Leukocytosis [...] for coordination of care (as documented) and yxeb-hi-bted counseling of patient and/or family. Dictated By: Josh Bhatia MD DD/ 1534 Signed By: <Electronically signed by Josh Bhatia MD> 04/22/20 1544 [facility] Work Phone: Evaluation + Plan note No data available for this section [facility] Diagnosis Onset Date Resolution Status Hypercalcemia acute COPD (chronic obstructive pulmonary disease) chronic Diabetes mellitus chronic Leukocytosis chronic Lumbar degenerative disc disease chronic [facility] Work Phone: Evaluation note* Diagnosis Onset Date Resolution Status COPD (chronic obstructive pulmonary disease) chronic Diabetes mellitus chronic Lumbar degenerative disc disease chronic Hypercalcemia resolved Leukocytosis resolved [facility] Work Phone: Evaluation note* Diagnosis Lumbar spondylosis- Primary Lumbosacral spondylosis without myelopathy Chest pain, unspecified type- Primary Primary hypertension Unspecified essential hypertension Familial hypercholesterolemia Abnormal EKG Nonspecific abnormal electrocardiogram (ECG) (EKG) Lumbar spondylosis Lumbosacral spondylosis without myelopathy [facility] Diagnosis Lumbar spondylosis- Primary Lumbosacral spondylosis without myelopathy Familial hypercholesterolemia- Primary [facility]* Diagnosis Metatarsalgia, left foot- Primary Diabetes 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 polyneuropathy, with long-term current use of insulin ([facility]) Onychomycosis Dermatophytosis of nail Toe pain, right Pain in soft tissues of limb Toe pain, left Pain in soft tissues of limb documented in this encounter [facility]* Diagnosis Onset Date Resolution Status Adrenal nodule acute CKD (chronic kidney disease) stage 3, GFR 30-59 ml/min acute [id number] acute Hypomagnesemia acute Type 2 diabetes mellitus wit h diabetic chronic kidney disease acute Hypercalcemia resolved [facility] Work Phone: Evaluation note* Diagnosis Lumbar spondylosis- Primary Lumbosacral spondylosis without myelopathy Lumbar spondylosis- Primary Lumbosacral spondylosis without myelopathy Lumbar spondylosis Lumbosacral spondylosis without myelopathy Lumbar spondylosis Lumbosacral spondylosis without myelopathy [facility] assessment information available [facility] Work Phone: Evaluation note* Diagnosis Onset Date Resolution Status History of lumbar fusion acu te Lumbar stenosis acute Piriformis syndrome of left side acute Adrenal nodule acute CKD (chronic kidney disease) stage 3, GFR 30-59 ml/min acute [id number] acute Hypomagnesemia acute Type 2 diabetes mellitus wit h diabetic chronic kidney disease acute Hypercalcemia resolved [facility] Work Phone: Evaluation note* Diagnosis Lumbar spondylosis- Primary Lumbosacral spondylosis without myelopathy Disorder of sacrum Disorders of sacrum Spinal stenosis of lumbar region with neurogenic claudication Spinal stenosis of lumbar region with neurogenic claudication- Primary Spinal stenosis of lumbar region with neurogenic claudication documented [facility] this encounter [facility] note Author Peyton Hoskins [facility] July 12, 2022 1:05pm Note Date/Time July 12, 2022 1:05pm [facility] [address] [place] [address] Gastroenterology H&P Signed Patient: Keya Ley MR#: [id number] : 1970 Acct:[id number] Age/Sex: 51 / F Adm Date: 3 Loc: Room: Type: [facility] Attending Dr: Peyton Hoskins MD Copies to: MD Kaylie Tarango, SWITCHBOARD WIRER, DIE TRY OUT WORKER STAMPING~ Date of Service: 07/12/2022 HISTORY & PHYSICAL: [...] M.D. Documented By: Peyton Hoskins MD 07/12/22 1308 Signed By: <Electronically signed by Peyton Hoskins MD> 07/12/22 1519 [facility] Work Phone: History general Narrative - Reported* [...] 2013 Hospitalization History See past surgical hx [employer] Other [employer] general Narrative - Reported* Type Description Date [...] 2013 Hospitalization History See past surgical hx [employer] Other history general Narrative - Reported* Type [...] 2013 Hospitalization History See past surgical hx [employer] Other Hospital Discharge instructions No data available for this section [facility] Additional Instructions DISCHARGE INSTRUCTIONS [...] problems. -Follow up with PCP. -Office number [phone]. [facility] Work Phone: InstructionsNot on filedocumented in this encounter [facility] SystemInstructionsNot on filedocumented in this encounter [facility] SystemInstructionsNot on filedocumented in this encounter [facility] No data available for this section [facility] for visit NarrativePatient here at the request of Dr. Chavez for evaluation & treatment of dysphagia.[employer] Other Summary Purpose Family History No Family [...] disorder Unknown Not Specified Diabetes mellitus Unknown Relationship Condition Age at Onset Recorded Date/T rebeka father Diabetes mellitus Unknown Narcissism Unknown Renal failure Unknown Chronic obstructive pulmonary disease Unk nown Hypertension Unknown Leukemia Unknown mother Rheumatoid arthritis Unknown Sciatica Unknown Scoliosis Unknown Diabetes mellitus Unknown Congestive heart failure Unknown Psoriatic arthritis Unknown Depression Unknown Tachycardia Unknown Asthma Unknown sister Diabetes mellitus Unknown Congenital abnormality Unknown aunt Diabetes mellitus Unknown father History of stroke Unknown Unknown Heart disease Unknown Family history of mental disorder Unknown mother Diabetes mellitus Unknown Advance Directives No Advanced Directives Records Found Advance Directive Response Recorded Date/ Time Advance Directives No April 2:13pm Advance Directive Response Recorded Date/ Time Advance Directives No April 3:13pm Advance Directive Response Recorded Date/ Time Advance Directives No September 03 1:37pm Chief Complaint and Reason for Visit Chief [...] kidney disease) stage 3, GFR 30-59 ml/min [id number] Hypomagnesemia Type 2 diabetes mellitus with diabetic chronic kidney disease Hypercalcemia Chief Complaint BH RENAL F/U Reason for Visit Adrenal nodule CKD (chronic kidney disease) stage 3, GFR 30-59 ml/min [id number] Hypomagnesemia Type 2 diabetes mellitus with diabetic chronic kidney disease Hypercalcemia Chief Complaint BH m54.50 Chief Complaint BH m54.50 Other intervertebral disc displacement, lumbar Chief Complaint m54.50 Other intervertebral disc displacement, lumbar BH RENAL 6 MONTH F/U Reason for Visit History of lumbar fu paul Lumbar stenosis Piriformis syndrome of left side Adrenal nodule CKD (chronic kidney disease) stage 3, GFR 30-59 ml/min [id number] Hypomagnesemia Type 2 diabetes mellitus with diabetic chronic kidney disease Hypercalcemia Reason for Referral Specialty Diagnoses / Procedures Referred By Randall bliss Referred To Contact Diagnoses Spinal stenosis of lumbar region with neurogenic claudication Procedures Case request operating room: INJECTION SPINE TRANSFORAMINAL Left 4,5 NR Live Kwon, MAKAYLA [address] [place] [id number] Referral ID Status Reason Start Date Expiration Date V isits Requested Visits Authorized [id number] Pending Review 12/11/2023 12/10/2024 1 1 Specialty Diagnoses / Procedures Referred By Contac t Referred To Contact Diagnoses Lumbar spondylosis Procedures Case request operating room: RADIOFREQUENCY ABLATION SPINAL Left L 2/3, 3/4 Cher Live Maher, PA-C [address] [place] [address] Referral ID Status Reason Start Date Expiration Date V isits Requested Visits Authorized [id number] Pending Review 06/12/2023 06/11/2024 1 1 Specialty Diagnoses / Procedures Referred By Contac t Referred To Contact Diagnoses Lumbar spondylosis Procedures Case request operating room: RADIOFREQUENCY ABLATION SPINAL Right L 2/3 3/4 Cher Live Maher, PA-C [address], [address] [place] [id number] Referral ID Status Reason Start Date Expiration Date V isits Requested Visits Authorized [id number] Pending Review 06/12/2023 06/11/2024 1 1 Specialty Diagnoses / Procedures Referred By Contac t Referred To Contact Diagnoses Chest pain, unspecified type Abnormal EKG Procedures Nuc stress Lexiscan/Exercise Dennis Foster MD [address] [place] [address] [facility] [address] [place] [address] Phone: [phone] Referral ID Status Reason Start Date Expiration Date V isits Requested Visits Authorized [id number] Authorized 03/15/2023 03/14/2024 5 5 Additional Source Comments REASON FOR VISIT (unrecogniz ed section and content) Reason Comments Follow-up EST PT F/U 1 YR LABS AT [facility] SCHED W/PT L/S GRU Reason Onset Date Comments Direct LDL 03/28/2023 Reason Comments DM Foot Care Reason Onset Date Comments Surgical Or Dental Clearance 04/26/2023 Reason Comments Back Pain Reason Comments Back Pain Patient Care team informatio n (unrecognized section and content) Team Status: Active Member Role Status Dates Kaylie Chavez APRN MARKET RESEARCH WORKER-C Primary Care Provider Active Team Status: Inactive Member Role Status Dates Kaylie Chavez APRN MARKET RESEARCH WORKER-C Primary Care Provider Active Start: September 30, 2023 End: September 30, 2023 Jeovanny Mendes MD Attending Provider Active Star t: September 30, 2023 End: September 30, 2023 Team Status: Inactive Member Role Status Dates Kaylie Chavez APRN MARKET RESEARCH WORKER-C Primary Care Provider Active Start: October 01, 2023 End: October 01, 2023 Jeovanny Mendes MD Attending Provider Active Star t: October 01, 2023 End: October 01, 2023 Team Status: Active Member Role Status Dates Kaylie Chavez APRN MARKET RESEARCH WORKER-C Primary Care Provider Active Start: October 29, 2023 Fermín Donahue MD Attending Provider Active Start: October 29, 2023 Team Status: Active Member Role Status Dates Kaylie Chavez APRN MARKET RESEARCH WORKER-C Primary Care Provider Active Start: November 13, 2023 Nir Horvath MD Attending Provider Active Start : November 13, 2023 Team Status: Inactive Member Role Status Dates Kaylie Chavez APRN MARKET RESEARCH WORKER-C Primary Care Provider Active Start: November 21, 2023 End: November 21, 2023 Nir Horvath MD Attending Provider Active Start : November 21, 2023 End: November 21, 2023 Team Status: Active Member Role Status Dates Kaylie Chavez APRN MARKET RESEARCH WORKER-C Primary Care Provider Active Start: April 16, 2023 Fermín Donahue MD Attending Provider Active Start: April 16, 2023 Team Status: Inactive Member Role Status Dates Kaylie Chavez APRN MARKET RESEARCH WORKER-C Primary Care Provider Active Start: April 25, 2023 End: April 25, 2023 Nir Horvath MD Attending Provider Active Start : April 25, 2023 End: April 25, 2023 Team Status: Inactive Member Role Status Dates Kaylie Chavez APRN MARKET RESEARCH WORKER-C Primary Care Provider Active Peyton Hoskins MD Attending Provider Active Team Status: Active Member Role Status Dates Kala Lloyd MD Primary Care Provider Active Kaylie Chavez APRN MARKET RESEARCH WORKER-C Referring Provider Active Isela Downs MD Attending Provider Active Team Status: Active Member Role Status Dates Kaylie Chavez APRN MARKET RESEARCH WORKER-C Primary Care Provider Active Herrera Donahue MD Attending Provider Active Team Status: Inactive Member Role Status Dates Kaylie Chavez APRN MARKET RESEARCH WORKER-C Primary Care Provider Active Nir Horvath MD Attending Provider Active Copper Etcher Relationship Specialty Start Date End Date Kaylie Chavez SWITCHBOARD WIRER-DIE TRY OUT WORKER [employer] [address] [place] [address] PCP - General Nurse Practitioner 11/20/18 Copper Etcher Relationship Specialty Start Date End Date Kaylie Chavez APRN-DIE TRY OUT WORKER [employer] [address] [place] [address] PCP - General Nurse Practitioner 11/20/18 Copper Etcher Relationship Specialty Start Date End Date Kaylie Chavez APRN-DIE TRY OUT WORKER [employer] [address] [place] [address] PCP - General Nurse Practitioner 11/20/18 Copper Etcher Relationship Specialty Start Date End Date Kala Lloyd MD [address] [place] [address] PCP - General Family Medicine 08/07/22 Kaylie Chavez MARKET RESEARCH WORKER [address] [place] [address] Nurse Practitioner Family Medicine 08/07/22 Copper Etcher Relationship Specialty Start Date End Date Kala Lloyd MD [address] [place] [address] PCP - General Family Medicine 08/07/22 Kaylie Chavez NP [address] [place] [address] Nurse Practitioner Family Medicine 08/07/22 Copper Etcher Relationship Specialty Start Date End Date Kaylie Chavez APRN-DIE TRY OUT WORKER [employer] [address] [facility] [place] [address] PCP - General Nurse Practitioner 11/20/18 Copper Etcher Relationship Specialty Start Date End Date Kaylie Chavez APRN-DIE TRY OUT WORKER [employer] [address] [facility] [place] [address] PCP - General Nurse Practitioner 11/20/18 Team Status: Active Member Role Status Dates Kaylie Chavez APRN MARKET RESEARCH WORKER-C Primary Care Provider Active Start: September 24, 2023 Fermín Donahue MD Attending Provider Active Start: September 24, 2023 Copper Etcher Relationship Specialty Start Date End Date Kaylie Chavez APRN-DIE TRY OUT WORKER [employer] [address] [facility] [place] [address] PCP - General Nurse Practitioner 11/20/18 INFORMATION SOURCE (unrecogn ized section and content) DATE CREATED AUTHOR 03/13/2022 [facility] Specialist DATE CREATED AUTHOR AUTHOR'S ORGANIZ ATION 03/22/2022 [facility] DATE CREATED AUTHOR AUTHOR'S ORGANIZ ATION 07/22/2022 [facility] DATE CREATED AUTHOR AUTHOR'S ORGANIZ ATION 10/03/2023 [facility] DATE CREATED AUTHOR AUTHOR'S ORGANIZ ATION 12/13/2023 [facility] DATE CREATED AUTHOR AUTHOR'S ORGANIZ ATION 2023 [facility] EPIC Goals (unrecognized section [...] BE BASED ON THE PRIMARY CLINICAL RECORDS. [employer] provides no warranty or guarantee of the accuracy or completeness of information in this document.
[2023-12-25 12:27] LABS: Albumin Level 2.6 g/dL (3.4-5.0); Anion Gap 15.7; BUN Creatinine Ratio 6.1; Calcium 9.5 mg/dL (8.5-10.1); Carbon Dioxide 26.3 mmol/L (21.0-32.0); Chloride 103 mmol/L (98-107); Estimated GFR (African America 60 (>=60 mL/min/1.73m^2); Estimated GFR (Non-African Ame 50 (>=60 mL/min/1.73m^2); Glucose 276 mg/dL (74-106); Magnesium 1.3 mg/dL (1.8-2.4); Phosphorus 3.4 mg/dL (2.6-4.7); Sodium 141 mmol/L (136-145)
[2023-12-26 12:10] LABS: Alpha-1-Globulin 0.2 g/dL (0.0-0.4); Alpha-2-Globulin 1.3 g/dL (0.4-1.0); Gamma Globulin 0.4 g/dL (0.4-1.8); Protein, Total 6.2 g/dL (6.0-8.5)
[2023-12-27 12:10] LABS: Albumin, U 75.6 % (.); Alpha-1-Globulin, U 3.7 % (.); Alpha-2-Globulin, U 3.7 % (.); Beta Globulin, U 11.8 % (.); Gamma Globulin, U 5.3 % (.); M-Spike, % Not Observed % (Not Observed); Protein,Total,Urine 640.2 mg/dL (Not Estab.)
== END 2023-12-25 10:48 | disposition home or self-care (01) ==
PROVIDERS: PCP Nurse Practitioner Family; Visit Provider Internal Medicine
DX: D35.1 Benign neoplasm of parathyroid gland (principal); E55.9 Vitamin D deficiency, unspecified
CPT/HCPCS: 36415; 80069; 80164; 82306; 82310; 83735; 83970; 84155; 84165

== ENCOUNTER 2023-12-25 10:53 | Outpatient (OUT) | payer MEDICAID, SELFPAY ==
--- OUTSIDE RECORDS SUMMARY | 2023-12-25 11:20 | XMS_ITS | CCD ---
Demographics Address [address] [address] Preferred Language en Marital Status Single Scientology Affiliation Unknown Race White Ethnic Group Not or Lati no Author Organization [facility] ion [facility] Care Team Providers Care Wood Patternmaker Name Role Phone Danis, Nir Unavailable KAYLIE CHAVEZ Primary Care Physician Rosina Salter Unavailable Unavailable KALA LLOYD Primary Care Physician [phone] Eliazar Pires Attending Unavailable Eliazar Pires Admitting Unavailable Eliazar Pires Attending Unavailable Eliazar Pires Admitting Unavailable Eliazar Pires Admitting Unavailable Eliazar Pires Attending Unavailable MD Kala Lloyd Primary Care Provider TAMMIE Chavez Referring Provider [phone] MD Isela Downs Attending Provider Peyton Hoskins Unavailable MD Kala Lloyd Primary Care Provider [phone] TAMMIE Chavez Referring Provider MD Isela Downs Attending Provider TAMMIE Chavez Primary Care Provider MD Peyton Hoskins Attending Provider [phone] DANIS, NIR Admitting Unavailable DANIS, NIR Attending [...] Care Unavailable DANIS, NIR Consulting Unavailable Chavez, DSP ENGINEER Kaylie R Primary Care Provider [phone] MD Herrera Donahue Attending Provider [phone] MD Nir Horvath Attending Provider Chavez DSP ENGINEER-VOLUNTEER SERVICES DIRECTOR, Kaylie R Primary Care Provider Prema COUGHLIN, Kala Sepulveda Primary Care Provider Chavez TENNIS RACKET REPAIRER, Kaylie R Unavailable TAMMIE Chavez Kaylie R Primary Care Provider MD Fermín Donahue Attending Provider Scott DSP ENGINEER Kaylie R Primary Care Provider MD Fermín Donahue Attending Provider MD Jeovanny Mendes Attending Provider [phone] Chavez, Kaylie R Primary Care Unavailable Jeovanny Mendes Attending Unavailable Jeovanny Mendes Admitting Unavailable Chavez, DSP ENGINEER Kaylie R Primary Care Provider MD Fermín [...] Unavailable CHAVEZ, KAYLIE R Primary Care Unavailable IGRON, REYMUNDO E Attending Unavailable GIRON, REYMUNDO E Referring Unavailable CHAVEZ, KAYLIE R Primary Care Unavailable GIRON, REYMUNDO E Admitting Unavailable GIRON, REYMUNDO E Attending Unavailable CHAVEZ, KAYLIE R Referring Unavailable CHAVEZ, KAYLIE R Primary Care Unavailable RD BARBOUR Attending Unavailable CHAVEZ, KAYLIE R Primary Care Unavailable VERHOFFLIVE Attending Unavailable CHAVEZ, KAYLIE R Referring Unavailable CHAVEZ, KAYLIE R Primary Care Unavailable VERHOFFLIVE Attending Unavailable CHAEVZ, KAYLIE R Referring Unavailable CHAVEZ, KAYLIE R [...] BRANDON LAUGHLIN Referring Unavailable LINDY VALENTINO Attending Unavailabl e ELIAZAR PIRES Attending Unavailable PREMAKALA Attending Unavailable LAVERNE PORTER Attending Unavailable JAS, LINDY Naik Attending Unavailabl e JAS, LINDY Naik Attending Unavailabl e KAYLIE CHAVEZ Attending Unavailable LEXIS, ELIAZAR Chacon Attending Unavailable JAS, LINDY Naik Attending Unavailabl e LEXIS, ELIAZAR Chacon Attending Unavailable JAS, LINDY Naik Attending Unavailabl RALPH Diaz Attending Unavailable LAVERNE PORTER Attending Unavailable JAS, LINDY Naik Attending Unavailabl e BROWNELIAZAR Attending Unavailable JAS, LINDY K Attending Unavailabl e JAS, LINDY K Attending Unavailabl e Allergies Allergy Classification Reported Allergen(s) Allergy Type Date of Onset Reaction(s) Facility (14 sources) Coconut extract Drug Allergy 05-19-19 Unknown, [facility] (20 sources) Codeine; Translations: [CODEINE] Drug Allergy 01-01-20 [facility] (20 sources) dapagliflozin; Translations: [DAPAGLIFLOZIN] Drug Allergy 01-01-20 [facility] (20 sources) Latex; Translations: [LATEX] Propensity to adverse reactions 01-08-20 [facility] (5 sources) onions Propensity to adverse reactions Unknown [facility] Other (9 sources) Acetaminophen Drug Allergy 05-19-19 Unknown Reaction [facility] (4 sources) Bee pollen Allergy to substance 05-19-19 Anaphylaxis [facility] (9 sources) Onion extract Drug Allergy 05-19-19 Anaphylaxis [facility] (9 sources) Tide Allergy to substance 05-19-19 23 [facility] (1 source) Coconut extract Drug Allergy 06-17-19 14 [facility] (1 source) Codeine Drug Allergy 02-08-20 13 [facility] (1 source) Latex Drug allergy (disorder) 06-17-19 14 [facility] (1 source) Misc-Food; Translations: [Misc-Food] Food allergy (disorder) 06-17-19 14 [facility] (1 source) Misc-Drug Drug allergy (disorder) 07-05-19 16 [facility] (2 sources) dapagliflozin Drug Allergy 07-24-19 23 Rash [facility] (2 sources) Latex Allergy to substance 07-24-19 23 Unknown [facility] (2 sources) Coconut Flavor Allergy to substance 07-24-19 23 Unknown [facility] Work Phone: Medications Current Medications Medication Drug Class(es) Dates Sig (Normalized) Sig (Original) [id number] 200 actuat albuterol 0.09 mg/actuat metered dose [...] 2020 4:06pm take 2 tablets by mo [facility] in the morning atorvastatin (LIPITOR) 40 mg [...] every week cholecalciferol (Vitamin D-3) 1.25 MG (48908 UT) capsule Take 50,000 Units by mouth [...] Three times daily May 15, 2018 1:00am [id number] 0.3 ml EPINEPHrine 1 mg/ml auto-injector (9 [...] 14 days July, Active polyethylene glycol 3350 260040 mg / potassium chloride 2970 mg / sodium bicarbonate 6740 mg / sodium chloride 5860 mg / sodium sulfate 52003 mg powder for oral solution (1 source) [...] coma, with long-term current use of insulin ([facility]) Inject 1 mL (75 mg [...] D2) 1,250 mcg (50,000 unit) Capsule Discontinued 10126 UNIT PO As Directed May 25, 2019 12:00am April 26, 2022 3:35pm take twice weekly take 1 capsule by mo [facility] two times weekly Vitamin D (Ergocalciferol) 1.25 [...] food Orally bid for 90 day(s) Active ymwibzwc-eufs-HE-calcium &mi ns (THERAGRAN-M) 9 mg iron-400 mcg tablet (2 sources) End: 03-15-2023 meejqksh-zyel-LM-calcium &mi ns (THERAGRAN-M) 9 mg iron-400 mcg tablet Take 1 tablet by mouth in the morning. 0 03/15/2023 Discontinued (Therapy completed) xkrwdayi-yjlm-MS -calcium &mins (THERAGRAN-M) 9 mg iron-400 mcg [...] inhalation once daily in the morning Tiotropium [place] Discontinued 1 PUFF INHALATION Every morning May 25, 2019 12:00am April 26, 2022 3:46pm Start: 05-15-2018 End: 05-25-2019 take 18 ug by inhalation once daily Tiotropium [place] Discontinued 18 MCG INHALATION Daily May 15, [...] sources) Long-term current use of insulin; Translations: [skilled nursing (current) use of insulin] Onset: 11-29-2022 Resolved: 04-02-2023 04-02-2023 Episodic Other aftercare (4 sources) Other long term care pharmacist (current) drug therapy; Translations: [OTH ASSISTED CURRENT DRUG THERAPY] Onset: 08-30-2021 Episodic Other [...] distribution width (RBC) [Ratio] 13.2 % 11.0-15.0 [facility] Estimated glomerular filtrat ion rate (GFR) non- Americanon 11-13-2023 GFR/1.73 sq M.predicted among non-blacks MDRD (S/P/Bld) [Vol rate/Area] 55 mL/min/{1.73_m2} Low >=60 [facility] Hematocrit Auto (Bld) [Volum e fraction]on 11-13-2023 Hematocrit (Bld) [Volume fraction] 46.7 % 36.0-48.0 [facility] Hemoglobin [Mass/volume] in Bloodon 11-13-2023 Hemoglobin (Bld) [Mass/Vol] 15.6 g/dL 12.0-16.0 [facility] - Chemistry and C hemistry - challengeon 11-13-2023 Albumin [Mass/Vol] 3.1 g/dL Low 3.4-5.0 [facility] Calcium [Mass/Vol] 9.7 mg/dL 8.5-10.1 [facility] Chloride [Moles/Vol] 102 mmol/L 98-107 [facility] CO2 [Moles/Vol] 29.3 mmol/L 21.0-32.0 [facility] Creatinine [Mass/Vol] 1.05 mg/dL High 0.55-1.02 [facility] GFR/1.73 sq M.predicted MDRD (S/P/Bld) [Vol rate/Area] mL/min/{1.73_m2} >=60 [facility] Glucose [Mass/Vol] 120 mg/dL High 74-106 [facility] Magnesium [Mass/Vol] 1.5 mg/dL Low 1.8-2.4 [facility] Potassium [Moles/Vol] 3.7 mmol/L 3.5-5.1 [facility] Sodium [Moles/Vol] 143 mmol/L 136-145 [facility] Urate [Mass/Vol] 7.5 mg/dL High 2.6-6.0 [facility] Urea nitrogen [Mass/Vol] 17.0 mg/dL 7.0-18.0 [facility] Urea nitrogen/Creatinine [Mass ratio] 16.2 mg/mg [facility] Bilirubin Ql (U) Negative NEGATIVE [facility] Glucose (U) [Mass/Vol] Negative NEGATIVE [facility] Ketones Ql (U) Negative NEGATIVE [facility] pH (U) 5.5 [pH] 5.0-9.0 [facility] Specific gravity (U) [Rel density] >=1.030 Abnormal 1.005-1.02 5 [facility] Urobilinogen Qn (U) 0.2 {Jennifer'U}/dL 0.2-1.0 [facility] - Specimen inform ationon 11-13-2023 Appearance (U) CLEAR CLEAR [facility] Color (U) YELLOW YELLOW [facility] - Urinalysison Leukocyte esterase Test strip Ql (U) Negative NEGATIVE [facility] Mucus Ql (Urine sed) SMALL Abnormal NONE SEEN [facility] Nitrite Ql (U) Negative NEGATIVE [facility] Protein (U) [Mass/Vol] 725.5 mg/dL High <=11.9 [facility] Protein Ql (U) >=300 mg/dL Abnormal NEG/TRACE [facility] Leukocytes [#/volume] correc kaykay for nucleated erythrocytes in Blood by Automated counon 11-13-2023 WBC corrected for nucl RBC Auto (Bld) [#/Vol] 11.8 10 3/uL High 4.0-11.0 [facility] MCH Auto (RBC) [Entitic mass ]on 11-13-2023 MCH (RBC) [Entitic mass] 30.4 pg 26.7-34.0 [facility] MCHC Auto (RBC) [Mass/Vol]on 11-13-2023 MCHC (RBC) [Mass/Vol] 33.4 g/dL 29.9-35.2 [facility] MCV Auto (RBC) [Entitic vol] on 11-13-2023 MCV (RBC) [Entitic vol] 91.0 fL 81.0-99.0 [facility] No Panel Informationon 11-12 Parathyroid Hormone (Intact) 25 pg/mL 15-65 [facility] Comment on above: Performed at: - [facility] [address] [id number] Director: Duke Peguero PhD, Phone: [phone] Phosphorus Level 3.8 mg/dL 2.6-4.7 [facility] Urine Bacteria SMALL #/HPF Abnormal NONE SEEN [facility] Urine Occult Blood MODERATE Abnormal NEGATIVE [facility] Urine Other Casts NONE SEEN #/LPF NONE SEEN [facility] Urine Other Crystals None Seen #/HPF None Seen [facility] Urine Random Creatinine 356.96 mg/dL High 20.0 0-300. 00 [facility] Urine RBC 2-5 #/HPF Abnormal 0-2 [facility] Urine Squamous Epithelial Cells MODERATE #/LPF Abnormal NONE/RARE [facility] Urine WBC 0-2 #/HPF Abnormal NONE SEEN [facility] Platelet mean volume Auto (B ld) [Entitic vol]on 11-13-2023 Platelet mean volume (Bld) [Entitic vol] 10.9 fL 9.5-13.5 [facility] Platelets Auto (Bld) [#/Vol] on 11-13-2023 Platelets (Bld) [#/Vol] 259 10 3/uL 150-450 [facility] RBC Auto (Bld) [#/Vol]on RBC (Bld) [#/Vol] 5.13 10 6/uL 4.20-5.40 [facility] Serum or plasma anion gap de terminationon 11-13-2023 Anion gap [Moles/Vol] 15.4 mmol/L [facility] Urine protein/creatinine rat ioon 11-13-2023 Protein/Creatinine (U) [Ratio] 2.03 [facility] XR lumbar spine 6V w bending on 09-30-2023 XR lumbar spine 6V w bending [facility] [place] [address] [place] [id number] XRay Report Signed Patient: Keya Ley MR#: [id number] : 1970 Acct:[id number] Age/Sex: 52 / F ADM Date: 09/30/23 Loc: XD Room: Type: [facility] Attending Dr: Jeovanny Mendes MD Copies to: Jeovanny Mendes MD Ordering Provider: Jeovanny Mnedes MD Date of Service: 09/30/23 XR/XR lumbar [...] Jenaro Stockton M.D.09/30/2023 3:31 PM Dictation Location: [place] [address] Transcribed By: [facility] 09/30/23 1531 Dictated By: Jenaro Stockton DO 09/30/23 1530 Signed By: 09/30/23 1531 Normal [facility] Glucose Glucometer (BldC) [M ass/Vol]on 09-27-2023 Glucose [Mass/Vol] 170 mg/dL High 65-99 [facility] Glucose Glucometer (BldC) [M ass/Vol]on 08-09-2023 Glucose [Mass/Vol] 150 mg/dL High 65-99 [facility] BI MAMMOGRAM SCREENING TOMOS YNTHESIS BILATERALon 04-22-2023 [...] IS VERY IMPORTANT TO YOUR HEALTH. THE [place] GUIDELINES RECOMMEND THAT WOMEN 40 [...] in LDL [Mass/Vol] 143 mg/dL High <130 [facility] Comment on above: Result Comment: LDL <100 mg/dL - Desirable LDL 130-159 mg/dL - Borderline High Risk LDL >160 mg/dL - High Risk Performed By: #### 2 089-1 #### [facility] ([id number]) [address], [address] [place] [address] POCT EKGOrdered By: Mary Kay Finley on 03-15-2023 [facility] US LOWER EXTREMITY VENO US DUPLEX LEFTon [...] on 07-25-2022 Creatinine [Mass/Vol] 1.0 mg/dL 0.6-1.3 [facility] Comment on above: ER/ESD physician is notified/shown all ISTAT results.Critical values may be confirmed by laboratory testing ifdeemed necessary by ER attending doctor. Creatinine [Mass/volume] in Serum or PlasmaOrdered By: Peyton Hoskins on 07-25-2022 Creatinine [Mass/Vol] 0.95 mg/dL 0.60-1.20 [facility] No Panel InformationOrdered By: cheri Hoskins on 07-25-2022 Estimated GFR (CKD-EPI) > 60.0 mL/Min [facility] Creatinine Clearance (Chem N/A [facility] Urea nitrogen [Mass/volume] in Serum or PlasmaOrdered By: Peyton Asacheri on 07-25-2022 Urea nitrogen [Mass/Vol] 17 mg/dL 7-25 [facility] CALCIUM 24 HR URINEon 2022 CALC, 24 HR UR 202.8 mg/24 hr Normal 100.0-300. 0 [facility] Comment on above: Performed By: #### C [id number] #### [facility] [address] [place] [address] Dr. Tyree Botello UR CALCIUM 15.6 mg/dL Normal 5.1-21.0 [facility] Comment on above: Performed By: #### C [id number] #### [facility] [address] [address] [address] Tyree Botello UR TOT VOL 1300 ml/24 HR Normal [facility] Comment on above: Performed By: #### C [id number] #### [facility] [address] [address] [address] Tyree Botello MAGNESIUMon 07-18-2022 Magnesium [Mass/Vol] 1.4 mg/dL Critically low 1.8-2.4 [facility] Comment on above: Performed By: #### M G, RENAL, URIC #### [facility] [address] [place] [address] Dr. Tyree Botello RENAL FUNCTION PANELon 07-18 Albumin [Mass/Vol] 3.1 g/dL Critically low 3.4-5.0 [facility] Comment on above: Performed By: #### M G, RENAL, URIC #### [facility] [address] [address] [address] Tyree Botello Calcium [Mass/Vol] 9.7 mg/dL Normal 8.5-10.1 [facility] Comment on above: Performed By: #### M G, RENAL, URIC #### [facility] [address] [place] [address] [address] Tyree Botello Chloride [Moles/Vol] 102 mmol/L Normal 98-107 [facility] Comment on above: Performed By: #### M G, RENAL, URIC #### [facility] [address] [place] [address] Dr. Tyree Botello CO2 [Moles/Vol] 26.1 mmol/L Normal 21.0-32.0 [facility] Comment on above: Performed By: #### M G, RENAL, URIC #### [facility] [address] [address] [address] Tyree Botello Creatinine [Mass/Vol] 1.13 mg/dL Critically high 0.55-1.02 [facility] Comment on above: Performed By: #### M G, RENAL, URIC #### [facility] [address] [place] [address] [address] Tyree Botello EGFR-AF DUTCH >60 Normal >=60 [facility] Comment on above: Performed By: #### M G, RENAL, URIC #### [facility] [address] [place] [address] [address] Tyree Botello EGFR-NON AF DUTCH 51 mL/min/1.73m2 Critically low >=60 [facility] Comment on above: Performed By: #### M G, RENAL, URIC #### [facility] [address] [place] [address] [address] Tyree Botello Glucose [Mass/Vol] 355 mg/dL Critically high 74-106 [facility] Comment on above: Performed By: #### M G, RENAL, URIC #### [facility] [address] [place] [address] Dr. Tyree Botello Phosphate [Mass/Vol] 3.4 mg/dL Normal 2.6-4.7 [facility] Comment on above: Performed By: #### M G, RENAL, URIC #### [facility] [address] [place] [address] Dr. Tyree Botello Potassium [Moles/Vol] 4.3 mmol/L Normal 3.5-5.1 [facility] Comment on above: Performed By: #### M G, RENAL, URIC #### [facility] [address] [place] [address] Dr. Tyree Botello Sodium [Moles/Vol] 138 mmol/L Normal 136-145 [facility] Comment on above: Performed By: #### M G, RENAL, URIC #### [facility] [address] [place] [address] Dr. Tyree Botello Urea nitrogen [Mass/Vol] 16.0 mg/dL Normal 7.0-18.0 [facility] Comment on above: Performed By: #### M G, RENAL, URIC #### [facility] [address] [place] [address] Dr. Tyree Botello PTH INTACTon 07-03-2022 PTH, Intact 16 pg/mL Normal 15-65 [facility] Comment on above: Performed By: #### M G, RENAL, URIC #### [facility] [address] [place] [address] Dr. Tyree Botello HEMOGRAM AND PLATELon 2022 Hematocrit (Bld) [Volume fraction] 44.5 % Normal 36.0-48.0 [facility] Comment on above: Performed By: #### M G, RENAL, URIC #### [facility] [address] [place] [address] Dr. Tyree Botello Hemoglobin (Bld) [Mass/Vol] 15.0 g/dL Normal 12.0-16.0 [facility] Comment on above: Performed By: #### M G, RENAL, URIC #### [facility] [address] [address] [address] Tyree Botello MCH (RBC) [Entitic mass] 30.2 pg Normal 26.7-34.0 [facility] Comment on above: Performed By: #### M G, RENAL, URIC #### [facility] [address] [address] [address] Tyree Botello MCHC (RBC) [Mass/Vol] 33.7 g/dL Normal 29.9-35.2 [facility] Comment on above: Performed By: #### M G, RENAL, URIC #### [facility] [address] [place] [address] [address] Tyree Botello MCV (RBC) [Entitic vol] 89.5 fL Normal 81.0-99.0 [facility] Comment on above: Performed By: #### M G, RENAL, URIC #### [facility] [address] [place] [address] Dr. Tyree Botello PLT 263 103/ul Normal 150-450 [facility] Comment on above: Performed By: #### M G, RENAL, URIC #### [facility] [address] [place] [address] Dr. Tyree Botello RBC 4.97 106/ul Normal 4.20-5.40 [facility] Comment on above: Performed By: #### M G, RENAL, URIC #### [facility] [address] [place] [address] Dr. Tyree Botello WBC 12.0 103/ul Critically high 4.0-11.0 [facility] Comment on above: Performed By: #### M G, RENAL, URIC #### [facility] [address] [place] [address] Dr. Tyree Botello MAGNESIUMon 07-02-2022 Magnesium [Mass/Vol] 1.2 mg/dL Critically low 1.8-2.4 [facility] Comment on above: Performed By: #### M G, RENAL, URIC #### [facility] [address] [address] [address] Tyree Botello RENAL FUNCTION PANELon 07-02 Albumin [Mass/Vol] 3.1 g/dL Critically low 3.4-5.0 [facility] Comment on above: Performed By: #### M G, RENAL, URIC #### [facility] [address] [place] [address] Dr. Tyree Botello Calcium [Mass/Vol] 9.7 mg/dL Normal 8.5-10.1 [facility] Comment on above: Performed By: #### M G, RENAL, URIC #### [facility] [address] [place] [address] Dr. Tyree Botello Chloride [Moles/Vol] 104 mmol/L Normal 98-107 [facility] Comment on above: Performed By: #### M G, RENAL, URIC #### [facility] [address] [place] [address] Dr. Tyree Botello CO2 [Moles/Vol] 28.6 mmol/L Normal 21.0-32.0 [facility] Comment on above: Performed By: #### M G, RENAL, URIC #### [facility] [address] [place] [address] Dr. Tyree Botello Creatinine [Mass/Vol] 0.95 mg/dL Normal 0.55-1.02 [facility] Comment on above: Performed By: #### M G, RENAL, URIC #### [facility] [address] [place] [address] Dr. Tyree Botello EGFR-AF DUTCH >60 Normal >=60 [facility] Comment on above: Performed By: #### M G, RENAL, URIC #### [facility] [address] [place] [address] Dr. Tyree Botello EGFR-NON AF DUTCH >60 Normal >=60 [facility] Comment on above: Performed By: #### M G, RENAL, URIC #### [facility] [address] [place] [address] Dr. Tyree Botello Glucose [Mass/Vol] 148 mg/dL Critically high 74-106 [facility] Comment on above: Performed By: #### M G, RENAL, URIC #### [facility] [address] [place] [address] Dr. Tyree Botello Phosphate [Mass/Vol] 3.6 mg/dL Normal 2.6-4.7 [facility] Comment on above: Performed By: #### M G, RENAL, URIC #### [facility] [address] [place] [address] Dr. Tyree Botello Potassium [Moles/Vol] 4.2 mmol/L Normal 3.5-5.1 [facility] Comment on above: Performed By: #### M G, RENAL, URIC #### [facility] [address] [place] [address] Dr. Tyree Botello Sodium [Moles/Vol] 143 mmol/L Normal 136-145 [facility] Comment on above: Performed By: #### M G, RENAL, URIC #### [facility] [address] [place] [address] Dr. Tyree Botello Urea nitrogen [Mass/Vol] 14.0 mg/dL Normal 7.0-18.0 [facility] Comment on above: Performed By: #### M G, RENAL, URIC #### [facility] [address] [place] [address] Dr. Tyree Botello UA RANDOM W/MICROSCOPICon BACTERIA NONE SEEN Normal NONE SEEN [facility] Comment on above: Performed By: #### M G, RENAL, URIC #### [facility] [address] [place] [address] Dr. Tyree Botello Bilirubin Ql (U) Negative Normal NEGATIVE [facility] Comment on above: Performed By: #### M G, RENAL, URIC #### [facility] [address] [place] [address] Dr. Tyree Botello CAST SEEN Abnormal NONE SEEN [facility] Comment on above: Performed By: #### M G, RENAL, URIC #### [facility] [address] [place] [address] Dr. Tyree Botello Clarity (U) CLEAR Normal CLEAR [facility] Comment on above: Performed By: #### M G, RENAL, URIC #### [facility] [address] [place] [address] Dr. Tyree Botello Color (U) LT. YELLOW Normal YELLOW [facility] Comment on above: Performed By: #### M G, RENAL, URIC #### [facility] [address] [address] [address] Tyree Botello Crystals LM Nom (Urine sed) NONE SEEN Normal NONE SEEN [facility] Comment on above: Performed By: #### M G, RENAL, URIC #### [facility] [address] [address] [address] Tyree Botello Epithelial cells LM Ql (Urine sed) FEW Abnormal NONE SEEN /RARE [facility] Comment on above: Performed By: #### M G, RENAL, URIC #### [facility] [address] [place] [address] Dr. Tyree Botello Glucose Ql (U) Negative Normal NEGATIVE [facility] Comment on above: Performed By: #### M G, RENAL, URIC #### [facility] [address] [place] [address] Dr. Tyree Botello Hemoglobin Ql (U) SMALL Abnormal NEGATIVE [facility] Comment on above: Performed By: #### M G, RENAL, URIC #### [facility] [address] [place] [address] Dr. Tyree Botello Ketones Ql (U) Negative Normal NEGATIVE [facility] Comment on above: Performed By: #### M G, RENAL, URIC #### [facility] [address] [place] [address] Dr. Tyree Botello LEUKOCYTES Negative Normal NEGATIVE [facility] Comment on above: Performed By: #### M G, RENAL, URIC #### [facility] [address] [address] [address] Tyree Botello MUCOUS NONE SEEN Normal NONE SEEN [facility] Comment on above: Performed By: #### M G, RENAL, URIC #### [facility] [address] [address] [address] Tyree Botello Nitrite Ql (U) Negative Normal NEGATIVE [facility] Comment on above: Performed By: #### M G, RENAL, URIC #### [facility] [address] [place] [address] Dr. Tyree Botello pH (U) 5.0 [pH] Normal 5-9 [facility] Comment on above: Performed By: #### M G, RENAL, URIC #### [facility] [address] [place] [address] Dr. Tyree Botello RBC 0-2 Normal 0-2 [facility] Comment on above: Performed By: #### M G, RENAL, URIC #### [facility] [address] [place] [address] Dr. Tyree Botello SPEC GRAVITY >=1.030 Abnormal 1.005-<=1. 025 [facility] Comment on above: Performed By: #### M G, RENAL, URIC #### [facility] [address] [place] [address] Dr. Tyree Botello UA PROTEIN >300 Abnormal NEGATIVE/ TRACE [facility] Comment on above: Performed By: #### M G, RENAL, URIC #### [facility] [address] [place] [address] Dr. Tyree Botello Urobilinogen Qn (U) 0.2 {Jennifer'U}/dL Normal 0.2 - 1. 0 [facility] Comment on above: Performed By: #### M G, RENAL, URIC #### [facility] [address] [place] [address] Dr. Tyree Botello WBC 0-2 Abnormal NONE SEEN [facility] Comment on above: Performed By: #### M G, RENAL, URIC #### [facility] [address] [place] [address] Dr. Tyree Botello URIC ACID SERUMon 07-02-2022 Urate [Mass/Vol] 5.8 mg/dL Normal 2.6-6.0 [facility] Comment on above: Performed By: #### M G, RENAL, URIC #### [facility] [address] [place] [address] Dr. Tyree Botello VITAMIN D 25 OHon 07-02-2022 VIT D 25-OH 39.2 ng/mL Normal [facility] Comment on above: Performed By: #### M G, RENAL, URIC #### [facility] [address] [address] [address] Tyree Botello VIT D RANGES SEE BELOW Normal [facility] Comment on above: Result Comment: <20 ng/mL Vit D deficient 20 - <30 ng/mL Vit D insufficient 30 - 100 ng/mL Vit D sufficient >100 ng/mL Potential Toxicity Performed By: #### M G, RENAL, URIC #### [facility] [address] [place], [place] [address] Dr. Tyree Botello Albumin [Mass/volume] in Bod y fluidOrdered By: Isela Downs on 04-27-2022 Albumin (Body fld) [Mass/Vol] 3.6 g/dL 3.2-5.5 [facility] Albumin [Mass/volume] in Ser um or PlasmaOrdered By: Isela Downs on 04-27-2022 Albumin [Mass/Vol] 3.4 g/dL 2.9-4.4 [facility] Albumin/Protein.total in 24 hour Urine by ElectrophoresisOrdered By: Isela Downs on 04-27-2022 Albumin Elph (24H U) [Mass fraction] 77.3 % . [facility] Alkaline phosphatase [Enzyma tic activity/volume] in Serum or PlasmaOrdered By: Isela Downs on 04-27-2022 ALP [Catalytic activity/Vol] 57 U/L 32-92 [facility] Aspartate aminotransferase [ Enzymatic activity/volume] in Serum or PlasmaOrdered By: Isela Downs on 04-27-2022 AST [Catalytic activity/Vol] 26 U/L 10-42 [facility] Basophils Auto (Bld) [#/Vol] Ordered By: Isela Downs on 04-27-2022 Basophils (Bld) [#/Vol] 0.1 10*3/uL 0.0-0.2 [facility] Basophils/100 WBC Auto (Bld) Ordered By: Isela Downs on 04-27-2022 Basophils/100 WBC (Bld) 0.9 % . [facility] Bilirubin.total [Mass/volume ] in Serum or PlasmaOrdered By: Isela Downs on 04-27-2022 Bilirubin [Mass/Vol] 0.4 mg/dL 0.3-1.2 [facility] Calcium [Mass/volume] in Ser um or PlasmaOrdered By: Isela Downs on 04-27-2022 Calcium [Mass/Vol] 9.6 mg/dL 8.2-10.2 [facility] Carbon dioxide, total [Moles /volume] in Serum or PlasmaOrdered By: Isela Downs on 04-27-2022 CO2 [Moles/Vol] 20.1 mmol/L 22.0-30.0 [facility] Chloride [Moles/volume] in S mary ann or PlasmaOrdered By: Isela Downs on 04-27-2022 Chloride [Moles/Vol] 101 mmol/L 95-114 [facility] Creatinine and Glomerular fi ltration rate.predicted panel (S/P/Bld)Ordered By: Isela Downs on 04-27-2022 Creatinine [Mass/Vol] 0.90 mg/dL 0.44-1.03 [facility] Eosinophils Auto (Bld) [#/Vo l]Ordered By: Isela Downs on 04-27-2022 Eosinophils (Bld) [#/Vol] 0.2 10*3/uL 0.0-0.45 [facility] Eosinophils/100 WBC Auto (Bl d)Ordered By: Isela Downs on 04-27-2022 Eosinophils/100 WBC (Bld) 1.5 % . [facility] Erythrocyte distribution wid th Auto (RBC) [Ratio]Ordered By: Isela Downs on 04-27-2022 Erythrocyte distribution width (RBC) [Ratio] 13.3 % 11.9-15.3 [facility] Estimated glomerular filtrat ion rate (GFR) non- AmericanOrdered By: Isela Downs on 04-27-2022 GFR/1.73 sq M.predicted among non-blacks MDRD (S/P/Bld) [Vol rate/Area] > 60 mL/Min [facility] Gamma globulin/Protein.total in 24 hour Urine by ElectrophoresisOrdered By: Isela Downs on 04-27-2022 Gamma globulin Elph (24H U) [Mass fraction] 3.7 % . [facility] Globulin Calc (S) [Mass/Vol] Ordered By: Isela Downs on 04-27-2022 Globulin (S) [Mass/Vol] 3.3 g/dL [facility] Glucose [Mass/volume] in Ser um or PlasmaOrdered By: Isela Downs on 04-27-2022 Glucose [Mass/Vol] 327 mg/dL 70-100 [facility] Comment on above: ADA recommended refe rence rangeRandom Glucose Reference Range is dependent on time and content of last meal. Glucose of more than 200 mg/dL in a nonstressed, ambulatory subject supports the diagnosis of Diabetes Mellitus. Hematocrit Auto (Bld) [Volum e fraction]Ordered By: Isela Downs on 04-27-2022 Hematocrit (Bld) [Volume fraction] 45.4 % 34.0-46.4 [facility] Hemoglobin [Mass/volume] in BloodOrdered By: Isela Downs on 04-27-2022 Hemoglobin (Bld) [Mass/Vol] 15.2 g/dL 11.8-15.4 [facility] Immunoglobulin light chains. kappa.free [Mass/volume] in SerumOrdered By: Isela Downs on 04-27-2022 Immunoglobulin light chains.kappa.free (S) [Mass/Vol] 25.4 mg/L 3.3-19.4 [facility] Immunoglobulin light chains. kappa.free/Immunoglobulin light chains.lambda.free [MassOrdered By: Isela Downs on 04-27-2022 Immunoglobulin light chains.kappa.free/Immuno globulin light chains.lambda.free (S) [Mass ratio] 1.62 0.26-1.65 [facility] Comment on above: Performed at: [place] [id number] Director: Duke Peguero PhD, Phone: [phone] Immunoglobulin light chains. lambda.free [Mass/volume] in Serum or PlasmaOrdered By: Isela Downs on 04-27-2022 Immunoglobulin light chains.lambda.free [Mass/Vol] 15.7 mg/L 5.7-26.3 [facility] Leukocytes [#/volume] correc kaykay for nucleated erythrocytes in Blood by Automated counOrdered By: Isela Downs on 04-27-2022 WBC corrected for nucl RBC Auto (Bld) [#/Vol] 11.3 10*3/uL 3.8-11.6 [facility] Lymphocytes Auto (Bld) [#/Vo l]Ordered By: Isela Downs on 04-27-2022 Lymphocytes (Bld) [#/Vol] 3.6 10*3/uL 1.00-4.8 [facility] Lymphocytes/100 WBC Auto (Bl d)Ordered By: Isela Downs on 04-27-2022 Lymphocytes/100 WBC (Bld) 31.7 % . [facility] MCH Auto (RBC) [Entitic mass ]Ordered By: Isela Downs on 04-27-2022 MCH (RBC) [Entitic mass] 30.0 pg 24.7-34.3 [facility] MCHC Auto (RBC) [Mass/Vol]Or dered By: Isela Downs on 04-27-2022 MCHC (RBC) [Mass/Vol] 33.5 g/dL 32.0-35.0 [facility] MCV Auto (RBC) [Entitic vol] Ordered By: Isela Downs on 04-27-2022 MCV (RBC) [Entitic vol] 89.6 fL 80-100 [facility] Monocytes Auto (Bld) [#/Vol] Ordered By: Isela Downs on 04-27-2022 Monocytes (Bld) [#/Vol] 0.5 10*3/uL 0.0-0.8 [facility] Monocytes/100 WBC Auto (Bld) Ordered By: Isela Downs on 04-27-2022 Monocytes/100 WBC (Bld) 4.8 % . [facility] Neutrophils Auto (Bld) [#/Vo l]Ordered By: Isela Downs on 04-27-2022 Neutrophils (Bld) [#/Vol] 6.9 10*3/uL 1.8-7.7 [facility] Neutrophils/100 WBC Auto (Bl d)Ordered By: Isela Downs on 04-27-2022 Neutrophils/100 WBC (Bld) 61.1 % . [facility] No Panel InformationOrdered By: Isela Downs on 04-27-2022 Urine Random Prot Electrophor Note See comment . [facility] Comment on above: Protein electrophore sis scan will follow via computer,mail, or mountain guide delivery.Performed at: [address] [id number] Director: Duke Peguero PhD, Phone: [phone] Estimated GFR () > 60 mL/Min [facility] Comment on above: GFR estimated refere nce range: According to KDOQI guidelines, <60 ml/min/1.73m2 is sufficient to diagnose a patient with chronic kidney disease. Pharmacy Creatinine Clearance (Chem 83.02 [facility] Protein Electrophoresis M-Sarthak Not observed g/dL Not Observed [facility] Protein Electrophoresis Note See comment . [facility] Comment on above: Protein electrophore sis scan will follow via computer,mail, or mountain guide delivery.Performed at: [employer] [facility] [employer] [id number] Director: Duke Peguero PhD, Phone: [phone] Nucleated erythrocytes [Pres ence] in Blood by Automated countOrdered By: Isela Downs on 04-27-2022 Nucleated RBC Auto Ql (Bld) 0.1 /100{WBC} 0-0.5 [facility] Platelet mean volume Auto (B ld) [Entitic vol]Ordered By: Isela Downs on 04-27-2022 Platelet mean volume (Bld) [Entitic vol] 9.5 fL 6.3-10.7 [facility] Platelets Auto (Bld) [#/Vol] Ordered By: Isela Downs on 04-27-2022 Platelets (Bld) [#/Vol] 257 10*3/uL 150-450 [facility] Potassium [Moles/volume] in Serum or PlasmaOrdered By: Isela Downs on 04-27-2022 Potassium [Moles/Vol] 4.3 mmol/L 3.5-5.1 [facility] Protein [Mass/volume] in Ser um or PlasmaOrdered By: Isela Downs on 04-27-2022 Protein [Mass/Vol] 6.9 g/dL 6.1-7.9 [facility] Protein [Mass/Vol] 6.8 g/dL 6.0-8.5 [facility] Protein [Mass/volume] in Uri neOrdered By: Isela Downs on 04-27-2022 Protein (U) [Mass/Vol] 183.6 mg/dL Not Estab. F [facility] Protein.monoclonal/Protein.t otal in 24 hour Urine by ElectrophoresisOrdered By: Isela Downs on 04-27-2022 Protein.monoclonal Elph (24H U) [Mass fraction] Not observed % Not Observed [facility] RBC Auto (Bld) [#/Vol]Ordere d By: Isela Downs on 04-27-2022 RBC (Bld) [#/Vol] 5.07 10*6/uL 3.60-5.00 [facility] Serum globulin measurement ( mass/volume)Ordered By: Isela Downs on 04-27-2022 Globulin (S) [Mass/Vol] 3.4 g/dL 2.2-3.9 [facility] Serum or plasma alanine barroso otransferase measurement without P-5'-P (enzymatic activiOrdered By: Isela Downs on 04-27-2022 ALT No additional P-5'-P [Catalytic activity/Vol] 36 U/L 10-60 [facility] Serum or plasma albumin/glob ulin mass ratioOrdered By: Isela Downs on 04-27-2022 Albumin/Globulin [Mass ratio] 1.1 {ratio} [facility] Albumin/Globulin [Mass ratio] 1.0 {ratio} 0.7-1.7 [facility] Serum or plasma alpha 1 glob ulin measurement by electrophoresis (mass/volume)Ordered By: Isela Downs on 04-27-2022 Alpha 1 globulin Elph [Mass/Vol] 0.3 g/dL 0.0-0.4 [facility] Serum or plasma alpha 2 glob ulin measurement by electrophoresis (mass/volume)Ordered By: Isela Downs on 04-27-2022 Alpha 2 globulin Elph [Mass/Vol] 1.6 g/dL 0.4-1.0 [facility] Serum or plasma anion gap de terminationOrdered By: Isela Downs on 04-27-2022 Anion gap [Moles/Vol] 18.2 mmol/L 6.0-15.0 [facility] Serum or plasma beta globuli n measurement by electrophoresis (mass/volume)Ordered By: Isela Downs on 04-27-2022 Beta globulin Elph [Mass/Vol] 1.1 g/dL 0.7-1.3 [facility] Serum or plasma jkyv-0-ebnhv globulin measurement (mass/volume)Ordered By: Isela Downs on 04-27-2022 Ifzk-7-Erezjwudbtfwt [Mass/Vol] 1.9 ug/mL 0.6-2.4 [facility] Comment on above: Siemens Immulite 200 0 Immunochemiluminometric assay (ICMA)Values obtained with different assay methods or kits cannotbe used interchangeably. Results cannot be interpreted asabsolute evidence of the presence or absence of malignantdisease.Performed at: [employer] [facility] [id number] Director: Loni Olvera MD, Phone: [phone] Serum or plasma gamma globul in measurement by electrophoresis (mass/volume)Ordered By: Isela Downs on 04-27-2022 Gamma globulin Elph [Mass/Vol] 0.5 g/dL 0.4-1.8 [facility] Sodium [Moles/volume] in Ser um or PlasmaOrdered By: Isela Downs on 04-27-2022 Sodium [Moles/Vol] 135 mmol/L 136-146 [facility] Urea nitrogen [Mass/volume] in Serum or PlasmaOrdered By: Isela Downs on 04-27-2022 Urea nitrogen [Mass/Vol] 14 mg/dL 9-23 [facility] Urine alpha 1 globulin/total protein by electrophoresisOrdered By: Isela Downs on 04-27-2022 Alpha 1 globulin Elph (U) [Mass fraction] 2.6 % . [facility] Urine alpha 2 globulin/total protein ratio by electrophoresisOrdered By: Isela Downs on 04-27-2022 Alpha 2 globulin Elph (U) [Mass fraction] 4.2 % . [facility] Urine beta globulin measurem ent by electrophoresis (mass/volume)Ordered By: Isela Downs on 04-27-2022 Beta globulin Elph (U) [Mass/Vol] 12.2 % . [facility] WBC Auto (Bld) [#/Vol]Ordere d By: Isela Downs on 04-27-2022 WBC (Bld) [#/Vol] 11.3 10*3/uL 3.8-11.6 [facility] PARATHYROID HORMONE- RELATED PEPTIDEon 04-20-2022 PTHrP (PTH-Related Peptide) <2.0 Normal [facility] Comment on above: Result Comment: This test was developed and its performance characteristics determined by [facility]. It has not been cleared or approved [...] By: #### M G, RENAL, URIC #### [facility] [address] [place] [address] Dr. Tyree Botello IMMUNOFIXATION (CHERRI), URINEo n 04-16-2022 CHERRI Interpretation:U Comment Normal [facility] Comment on above: Result Comment: No m onoclonality detected. Performed By: #### M G, RENAL, URIC #### [facility] [address] [place] [address] Dr. Tyree Botello PROTEIN ELECTROPHERESIS URIN E RANDOMon 04-16-2022 Albumin, U 80.3 % Normal [facility] Comment on above: Performed By: #### M G, RENAL, URIC #### [facility] [address] [place] [address] Dr. Tyree Botello Alpha-1 Globulin U 4.3 % Normal [facility] Comment on above: Performed By: #### M G, RENAL, URIC #### [facility] [address] [place] [address] Dr. Tyree Botello Alpha-2 Glubulin U 2.9 % Normal [facility] Comment on above: Performed By: #### M G, RENAL, URIC #### [facility] [address] [place] [address] Dr. Tyree Botello Beta Globulin, U 10.2 % Normal [facility] Comment on above: Performed By: #### M G, RENAL, URIC #### [facility] [address] [place] [address] Dr. Tyree Botello Gamma Globulin U 2.2 % Normal [facility] Comment on above: Performed By: #### M G, RENAL, URIC #### [facility] [address] [place] [address] Dr. Tyree Botello M-Sarthak, % Not Observed Normal Not Observed [facility] Comment on above: Performed By: #### M G, RENAL, URIC #### [facility] [address] [place] [address] Dr. Tyree Botello PDF . Normal [facility] Comment on above: Performed By: #### M G, RENAL, URIC #### [facility] [address] [place] [address] Dr. Tyree Botello Please note: Comment Normal [facility] Comment on above: Result Comment: Prot ein electrophoresis scan will follow via computer, mail, or mountain guide delivery. Performed By: #### M G, RENAL, URIC #### [facility] [address] [place] [address] Dr. Tyree Botello Protein (U) [Mass/Vol] 181.5 mg/dL Normal Not Estab. T [facility] Comment on above: Performed By: #### M G, RENAL, URIC #### [facility] [address] [place] [address] Dr. Tyree Botello VIT D 1 25 DIHYDROXYon 04-14 Calcitriol(1,25 di-OH Vit D) 12.5 pg/mL Critically low 24.8-81.5 [facility] Comment on above: Performed By: #### M G, RENAL, URIC #### [facility] [address] [place] [address] Dr. Tyree Botello IMMUNOFIXATION(CHERRI),PROTEIN ELEC(PE),FREon 04-13-2022 Albumin [Mass/Vol] 3.5 g/dL Normal 2.9-4.4 [facility] Comment on above: Performed By: #### I FEPEFL #### [facility] [address] [place] [address] Dr. Tyree Botello Albumin/Globulin [Mass ratio] 1.1 {ratio} Normal 0.7-1.7 [facility] Comment on above: Performed By: #### I FEPEFL #### [facility] [address] [place] [address] Dr. Tyree Botello Ymblv-9-Fijymkdh 0.2 g/dL Normal 0.0-0.4 [facility] Comment on above: Performed By: #### I FEPEFL #### [facility] [address] [place] [address] Dr. Tyree Botello Aalqv-0-Rjgabgkx 1.5 g/dL Critically high 0.4-1.0 [facility] Comment on above: Performed By: #### I FEPEFL #### [facility] [address] [place] [address] Dr. Tyree Botello Beta Globulin 1.3 g/dL Normal 0.7-1.3 [facility] Comment on above: Performed By: #### I FEPEFL #### [facility] [address] [place] [address] Dr. Tyree Botello Free [place] Lt Chains,S 25.5 mg/L Critically high 3.3-19.4 [facility] Comment on above: Performed By: #### I FEPEFL #### [facility] [address] [place] [address] Dr. Tyree Botello Free Lambda Lt Chains,S 15.9 mg/L Normal 5.7-26.3 [facility] Comment on above: Performed By: #### I FEPEFL #### [facility] [address] [place] [address] Dr. Tyree Botello Gamma Globulin 0.5 g/dL Normal 0.4-1.8 [facility] Comment on above: Performed By: #### I FEPEFL #### [facility] [address] [place] [address] Dr. Tyree Botello Globulin (S) [Mass/Vol] 3.5 g/dL Normal 2.2-3.9 [facility] Comment on above: Performed By: #### I FEPEFL #### [facility] [address] [place] [address] Dr. Tyree Botello Immunofixation Result, Serum Comment: Normal [facility] Comment on above: Result Comment: Pres ence of monoclonal protein is unclear at this time. Suggest repeat in 3 to 6 months if clinically indicated. Performed By: #### I FEPEFL #### [facility] [address] [address] [address] Tyree Botello Immunoglobulin A, Qn, Serum 266 mg/dL Normal 87-352 [facility] Comment on above: Performed By: #### I FEPEFL #### [facility] [address] [address] [address] Tyree Botello Immunoglobulin G, Qn, Serum 517 mg/dL Critically low 586-1602 [facility] Comment on above: Performed By: #### I FEPEFL #### [facility] [address] [address] [address] Tyree Botlelo Immunoglobulin M, Qn, Serum 118 mg/dL Normal 26-217 [facility] Comment on above: Performed By: #### I FEPEFL #### [facility] [address] [address] [address] Tyree Botello Egg[place]/Lambda Ratio, S 1.60 Normal 0.26-1.65 [facility] Comment on above: Performed By: #### I FEPEFL #### [facility] [address] [address] [address] Tyree Botello M-Sarthak Not Observed Normal Not Observed [facility] Comment on above: Performed By: #### I FEPEFL #### [facility] [address] [place] [address] [address] Tyree Botello PDF . Normal [facility] Comment on above: Performed By: #### I FEPEFL #### [facility] [address] [place] [address] [address] Tyree Botello Please note: Comment Normal [facility] Comment on above: Result Comment: Prot ein electrophoresis scan will follow via computer, mail, or mountain guide delivery. Performed By: #### I FEPEFL #### [facility] [address] [place] [address] [address] Tyree Botello Protein [Mass/Vol] 7.0 g/dL Normal 6.0-8.5 [facility] Comment on above: Performed By: #### I FEPEFL #### [facility] [address] [place] [address] Dr. Tyree Botello PTH INTACTon 04-06-2022 PTH, Intact 9 pg/mL Critically low 15-65 [facility] Comment on above: Performed By: #### P THINT #### [facility] [address] [place] [address] Dr. Tyree Botello HEMOGRAM AND PLATELon 2022 Hematocrit (Bld) [Volume fraction] 51.5 % Critically high 36.0-48.0 [facility] Comment on above: Performed By: #### M G, RENAL, URIC #### [facility] [address] [place] [address] Dr. Tyree Botello Hemoglobin (Bld) [Mass/Vol] 16.2 g/dL Critically high 12.0-16.0 [facility] Comment on above: Performed By: #### M G, RENAL, URIC #### [facility] [address] [place] [address] Dr. Tyree Botello MCH (RBC) [Entitic mass] 30.1 pg Normal 26.7-34.0 [facility] Comment on above: Performed By: #### M G, RENAL, URIC #### [facility] [address] [place] [address] Dr. Tyree Botello MCHC (RBC) [Mass/Vol] 31.5 g/dL Normal 29.9-35.2 [facility] Comment on above: Performed By: #### M G, RENAL, URIC #### [facility] [address] [place] [address] Dr. Tyree Botello MCV (RBC) [Entitic vol] 95.7 fL Normal 81.0-99.0 [facility] Comment on above: Performed By: #### M G, RENAL, URIC #### [facility] [address] [place] [address] Dr. Tyree Botello PLT 280 103/ul Normal 150-450 [facility] Comment on above: Performed By: #### M G, RENAL, URIC #### [facility] [address] [place] [address] [address] Tyree Botello RBC 5.38 106/ul Normal 4.20-5.40 [facility] Comment on above: Performed By: #### M G, RENAL, URIC #### [facility] [address] [place] [address] [address] Tyree Botello WBC 11.7 103/ul Critically high 4.0-11.0 [facility] Comment on above: Performed By: #### M G, RENAL, URIC #### [facility] [address] [place] [address] [address] Tyree Botello MAGNESIUMon 04-05-2022 Magnesium [Mass/Vol] 1.1 mg/dL Critically low 1.8-2.4 [facility] Comment on above: Performed By: #### M G, URIC, RENAL #### [facility] [address] [place] [address] Dr. Tyree Botello RENAL FUNCTION PANELon 04-05 Albumin [Mass/Vol] 3.5 g/dL Normal 3.4-5.0 [facility] Comment on above: Performed By: #### M G, URIC, RENAL #### [facility] [address] [place] [address] Dr. Tyree Botello Calcium [Mass/Vol] 11.5 mg/dL Critically high 8.5-10.1 [facility] Comment on above: Performed By: #### M G, URIC, RENAL #### [facility] [address] [place] [address] Dr. Tyree Botello Chloride [Moles/Vol] 95 mmol/L Critically low 98-107 [facility] Comment on above: Performed By: #### M G, URIC, RENAL #### [facility] [address] [place] [address] Dr. Tyree Botello CO2 [Moles/Vol] 28.3 mmol/L Normal 21.0-32.0 [facility] Comment on above: Performed By: #### M G, URIC, RENAL #### [facility] [address] [address] [address] Tyree Botello Creatinine [Mass/Vol] 1.17 mg/dL Critically high 0.55-1.02 [facility] Comment on above: Performed By: #### M G, URIC, RENAL #### [facility] [address] [address] [address] Tyree Botello EGFR-AF [place] 59 mL/min/1.73m2 Critically low >=60 [facility] Comment on above: Performed By: #### M G, URIC, RENAL #### [facility] [address] [address] [address] Tyree Botello EGFR-NON AF [place] 49 mL/min/1.73m2 Critically low >=60 [facility] Comment on above: Performed By: #### M G, URIC, RENAL #### [facility] [address] [place] [address] Dr. Tyree Botello Glucose [Mass/Vol] 229 mg/dL Critically high 74-106 [facility] Comment on above: Performed By: #### M G, URIC, RENAL #### [facility] [address] [address] [address] Tyree Botello Phosphate [Mass/Vol] 3.0 mg/dL Normal 2.6-4.7 [facility] Comment on above: Performed By: #### M G, URIC, RENAL #### [facility] [address] [place] [address] Dr. Tyree Botello Potassium [Moles/Vol] 3.5 mmol/L Normal 3.5-5.1 [facility] Comment on above: Performed By: #### M G, URIC, RENAL #### [facility] [address] [address] [address] Tyree Botello Sodium [Moles/Vol] 136 mmol/L Normal 136-145 [facility] Comment on above: Performed By: #### M G, URIC, RENAL #### [facility] [address] [address] [address] Tyree Botello Urea nitrogen [Mass/Vol] 20.0 mg/dL Critically high 7.0-18 .0 [facility] Comment on above: Performed By: #### M G, URIC, RENAL #### [facility] [address] [place] [address] Dr. Tyree Botello UA RANDOM W/MICROSCOPICon BACTERIA TRACE Abnormal NONE SEEN [facility] Comment on above: Performed By: #### U AMIC #### [facility] [address] [place] [address] Dr. Tyree Botello Bilirubin Ql (U) SMALL Abnormal NEGATIVE [facility] Comment on above: Performed By: #### U AMIC #### [facility] [address] [place] [address] Dr. Tyree Botello CAST SEEN Abnormal NONE SEEN [facility] Comment on above: Performed By: #### U AMIC #### [facility] [address] [place] [address] Dr. Tyree Botello Clarity (U) CLEAR Normal CLEAR [facility] Comment on above: Performed By: #### U AMIC #### [facility] [address] [place] [address] Dr. Tyree Botello Color (U) YELLOW Normal YELLOW [facility] Comment on above: Performed By: #### U AMIC #### [facility] [address] [place] [address] Dr. Tyree Botello Crystals LM Nom (Urine sed) NONE SEEN Normal NONE SEEN [facility] Comment on above: Performed By: #### U AMIC #### [facility] [address] [place] [address] Dr. Tyree Botello Epithelial cells LM Ql (Urine sed) MODERATE Abnormal NONE SEEN /RARE [facility] Comment on above: Performed By: #### U AMIC #### [facility] [address] [place] [address] Dr. Tyree Botello Glucose Ql (U) 500 mg/dl Abnormal NEGATIVE [facility] Comment on above: Performed By: #### U AMIC #### [facility] [address] [place] [address] Dr. Tyree Botello Hemoglobin Ql (U) MODERATE Abnormal NEGATIVE [facility] Comment on above: Performed By: #### U AMIC #### [facility] [address] [address] [address] Tyree Botello HYALINE CAST FEW Normal [facility] Comment on above: Performed By: #### U AMIC #### [facility] [address] [address] [address] Tyree Botello Ketones Ql (U) TRACE Abnormal NEGATIVE [facility] Comment on above: Performed By: #### U AMIC #### [facility] [address] [address] [address] Tyree Botello LEUKOCYTES Negative Normal NEGATIVE [facility] Comment on above: Performed By: #### U AMIC #### [facility] [address] [address] [address] Tyree Botello MUCOUS NONE SEEN Normal NONE SEEN [facility] Comment on above: Performed By: #### U AMIC #### [facility] [address] [address] [address] Tyree Botello Nitrite Ql (U) Negative Normal NEGATIVE [facility] Comment on above: Performed By: #### U AMIC #### [facility] [address] [address] [address] Tyree Botello pH (U) 5.5 [pH] Normal 5-9 [facility] Comment on above: Performed By: #### U AMIC #### [facility] [address] [place] [address] Dr. Tyree Botello RBC 2-5 Abnormal 0-2 [facility] Comment on above: Performed By: #### U AMIC #### [facility] [address] [place] [address] Dr. Tyree Botello SPEC GRAVITY >=1.030 Abnormal 1.005-<=1. 025 [facility] Comment on above: Performed By: #### U AMIC #### [facility] [address] [place] [address] Dr. Tyree Botello UA PROTEIN >300 Abnormal NEGATIVE/ TRACE [facility] Comment on above: Performed By: #### U AMIC #### [facility] [address] [place] [address] Dr. Tyree Botello Urobilinogen Qn (U) 0.2 {Jennifer'U}/dL Normal 0.2 - 1. 0 [facility] Comment on above: Performed By: #### U AMIC #### [facility] [address] [place] [address] Dr. Tyree Botello WBC 2-5 Abnormal NONE SEEN [facility] Comment on above: Performed By: #### U AMIC #### [facility] [address] [address] [address] Tyree Botello URIC ACID SERUMon 04-05-2022 Urate [Mass/Vol] 8.0 mg/dL Critically high 2.6-6.0 [facility] Comment on above: Performed By: #### M G, URIC, RENAL #### [facility] [address] [place] [address] Dr. Tyree Botello URINE T PROTEIN CREAT RATIOo n 04-05-2022 UR PROT CREAT RAT 0.66 Normal [facility] Comment on above: Performed By: #### M G, RENAL, URIC #### [facility] [address] [place] [address] Dr. Tyree Botello UR TOTAL PROTEIN >200.0 Critically high <=12.0 [facility] Comment on above: Performed By: #### M G, RENAL, URIC #### [facility] [address] [place] [address] Dr. Tyree Botello URINE CREAT 304.32 mg/dL Critically high 20.00-300. 00 [facility] Comment on above: Performed By: #### M G, RENAL, URIC #### [facility] [address] [place] [address] Dr. Tyree Botello VITAMIN D 25 OHon 04-05-2022 VIT D 25-OH 49.7 ng/mL Normal [facility] Comment on above: Performed By: #### M G, RENAL, URIC #### [facility] [address] [place] [address] Dr. Tyree Botello VIT D RANGES SEE BELOW Normal [facility] Comment on above: Result Comment: <20 ng/mL Vit D deficient 20 - <30 ng/mL Vit D insufficient 30 - 100 ng/mL Vit D sufficient >100 ng/mL Potential Toxicity Performed By: #### M G, RENAL, URIC #### [facility] [address] [place], [place] [id number] Dr. Tyree Botello SCREENING MAMMOGRAM W/CHASE, BILATERAL*on [...] VERY IMPORTANT TO YOUR HEALTH. THE CURRENT [place] [employer] GUIDELINES RECOMMENDS ANNUAL MAMMOGRAPHY BEGINNING AT AGE 41 THIS FACILITY USES A REMINDER SYSTEM TO ENSURE ALL PATIENTS RECEIVE REMINDER NOTIFICATIONS AT THE APPROPRIATE TIME BASED ON THE RECOMMENDATIONS OF THIS EXAM. Report reported and signed by Rich Soriano on 03/13/2022 0925 Normal [facility] Coding Summary.on 02-15-2022 Coding Summary. CD:[id number] Gh0bW w+PGhlYWQ+OB0ODXDvY77ysIO fgF6TB1tJXB0DUTBSDWEQTD5H WJ9kuLN3FFbgV6DrcmYv SungrTQtPL10VGi3RSG4wRyeS PswxZ7taPIsV2o7MzYtGV68kS 73CLnhKGUoYaA4AgZkdmqawJC y G1luGjFsbBUfWva+PHRhYmxlI HdpZHRoPScxMDAlJyBzdHlsZT 2eSg0uRYOsGMYzyEbujRPwRlU j g2kgCXZoVFwoYM2xjHjbV0Xvc AU4ACJaa4c6Pc54oNA+PHRkIH A3cIbqVZhjz602FvVuz9qhUKF 3 dDXrNNmnETS7S83cs0E9PXEnA SBeMMK7vFA6sC2tbRkrsvpsM7 CdhCYvWiM7DZC2pJFflC7prWy n dyxhvM7nTjd+S67COF0LLDLDZ Y9TGpl0H8YwCznitES+PC90YW FzZZ80oCJpjWKuy1zswSw4NdR w MESkSMI9jKozCShws8BvMVNyM 14frVOhb2S3MARrnGlcuATlFz GvoCK8fW3lMKbwkulnk8lsnun n Tjtoe1rllw57jY03R46tPAawW RSbLOS9CSZzPHOyhYwfch0gmY 9wIi8+UHpbv2xhb0quoAa8ZeB w PETeivYgfTkgVOR7m1TvMo34P 2UopMcip3QdPjk8re74sNKmr3 B8rFN0NQdoYDLpeA1wNXieFbO 6 XVLqVjWpqJ90zDKpSPmhQu4uu AidrKerZH0jJOCiklpxQGBnmM 9wXEIivZMujYktAK0tCMEarkx m f782HoRfXBJ7JHHtvQJiO5Ujn Q5bKgOjUPJjAJGcT5OvwOVaJK bzJ644XYbgMxM4YQIopcElS7X s BLEqlFzgLmM0w2L2Op8Yb9Dpf bcaDAK0ZQxhXDBuSsF6LoYrRq T4J6WhFys5ENFhxXwsQO1wH3U h TPTmwvqjchbvrXS6JEXdOMCrp Q93eVFrODntEf0hl8B0f305JF GnJCBesL96Hr4ocHdpWALhnJH U mP5izylre9sogthzRhZzWFRkR Ac9ZFv2VWAbrAfuQiVqCZV9Ux K1MDA6rKGsiG7mrVvqrszgjE2 w Oyc+Q43tsY3qBBO6RNI6ekxuQ YQqvwWhWB12OR50C6BmBcttxR FibGU+NHRgpzKnxKzxZZ5wIeV j u7bqs4VwYIbbC1KtUEHdSBwgK ad9BCHxHMB4aED0gL6nVCYhOY xha1N1iEB1D7OfwjZfyz1to7d s SFYbGJyhZ01hsYZlk3B1TYRzo FD1BCJkvMjdVbYxoM14Iud+PG TveMfgw1UcIdvwb3vll6zyhHx 9 VvEeLJYhztUstOwoKVC5k9KnI z82J66pCSseCSSbIMJtETYwDK PkvSbqsk9vnL9yWy2+PGNvbCB 3 hRD9eN9aZJMwTrT2AHeaF570Q jVivIWhXtjkd9mqc1iwcGv6Wq OoHQWeteFqoIajCMB3x9IzWc3 8 K18bQWdzNAVmDAWpZZFaKGZlc Cukqd3ffJ0mHf6+ZF1zw3pcmb 11kD87iRE+NUYySUS1tXqmKIe w KIGcuX3dPIfdRmN0QGXtXiYra S40wDCyQWmsLx5uvHoumOqkZI 7bAHDdeowyk854DhBiq1grIEL w fKYvXJsuFZU0Z72ri4E6ZGJuE LZhTEW8oVV7bJ3kxCvykeifwF DaoJvlgqXheOxmTNgzZLetY66 6 IHRvcDsnPlBhdGllbnQgTmFtZ Qn7L4WyQxm0CFBhxObtGR3vpU UaZXkoFf0tvSglbItlDZ1kAWL p tussg219NbAcg3rbVCEenFGqV NkjNFH4F84lf0E0WSCcZRRlJR V2qLW0yM1zuJxzgxjyxZEpyMz g suOdvOjbNZmfKHcdV757JZNve DkiUuDdmvFnROUgvCB9PX61WC 46lRPlg2H5uQM3K9FaZWYgxke t mekrkVU9RFHvVEEpsT93Yh4kz RevQe7jVSXxILA7DNKzsWXhE6 HcnP0qOjYsOVOgXXDxT2ZuwFP t MClvW902PHdxLaZ2ALSrvxNdX 1WbFNAlhZedOxO5q3P3Bi5YC2 T6ZU32UE41zONga2L3tLQ4M0T h FBQzxafkkodfrKD7HKPrLDXcj B34Fk6jtNqfGo7nAUKbNFH3YI SldGSrK1DjkM2aWmAiROWhJLU w V9AkpNZaRWetO411RAwfUuN6W ZBmdnNcS8BjSSDmvDuyUoV9r9 M9Gc9CXSp1UW89KV36wNNhq9G 5 iKC5N8QnERVaxcctrhtydSU0D NHpVUAbwV25Vg9ijXweRt7hEX RwLWF4GFTihFMrL0ZoiU6mWsB j LHAsSNWcN6VqlGXyRWspJ100T NzyVwS9VSDwngEtE2TuNUSlcV nbTmZ7q8K2Lk6JDMIxZI87GUG 5 vLG7YY29NH53Y0OpLzxmyWItw +PHRhYmxlIHdpZHRoPScxMD AdQvYmbDvkKH8pKe0tNFAmSFG v aNcnuUBpKlXbf9owZNPpUWloO R3kjDedE8JirXW4AUZuk0c0Yt 72Q09fF5MphOU+VWLjmRO3pHZ 0 dT4rSiKoRtU2JSchX440VqXlp ONeJjqfu0bkh4ebnHd9AcA4GY YofzXfqZkrFJK9n6GdPd34I54 s IHdpZHRoPSIxNSUiIHZhbGlnb a9bgB8pYj6+UDZcqUG0bMP4kG 4kIkVyIlL6EOxvI250ZoIamKU v Amldr6sgl7pskGh4VkAuLJXvd hSagUzeKMJ7f7EtWe68W1MjmB nlw9VeBrd9ej69jNUyo9V2hDO 9 B2ApANVrpqgvcBOpzLqmSI4fX CMftxjoWDJsfL2kIADaP5p5Se XrPbA8NPcnU3DdqxR3UASnoCM g VJbzJIA9U43jm4R6OEUdGWDtP GY7bPJ8nG4duYugepghkXCmyY xxvhRbtBenVXhnIDiiZ525ZWN v nSajCQFbhP6zICUffXSzgShtT L6xWYUijdnpFaOJO0xHZFEeCY xPVUVMTEEgTDwvdGQ+PHRkIHN 0 zBbwPJviWJNdjB5yZBZkK5d6S zLvUtQ7GNgfL2WtBFOpqjrbWl 99mU0nRpQrEtS6LMgaJ4DyopT 6 ARCrcCYtRGfxNKR8D39qe3B9E ZPsMXFbKVU5zHG7aR4qqYrwap ogbGVmdDsgdmVydGljYWwtYWx p R947XAZemIkzGhLmUcZ5VxF5B tN7N9YrRoj6CUUttNnjNT5okP OfQGspMw0ysFlriPllYZ8tMNY p kdzgPMFkiC6jAEGyeTKymBgqY N9zCUEvfmhze137VnFjUKL3UQ ZeuZJyV5QnfD0vTnLvYZYeLYW w Q0IehDWiFGawM437HZyuKfT5P LIfopPnT4NuHXBmuRicAuZ1y9 Y2Uy35UHJCJIYskulbfNU+PHR k XAU3gTemZDqmQTAbrT9sQWCfB 6n8OwLeMhW0VJivP7DtUZNtcm fyXl84xN9qHbOvHcR1ZUfxX9R v wlE8FIVaxHMmPMnyUVU5Q75we 3T8XAUsNPFkLUO8cCP1mO3nuW lnbjogbGVmdDsgdmVydGljYWw t QYpaF463STMuwVftBjKtqXDsY TwvdGQ+KPTyOYC5dApvCPzmLI MkmV5hZRZxR8d8IuHnAuM5MUk u R3QwLPAnjxvhFf05hI9pYfYtM kN0DVilO1TspcA5TSPgbRPlYI hdKDF9M22mt6F3LKWfQOBeWFU 7 jHG9uQ5rdOlgeuzgsRNkwUrfp sQyzMnhFOvdAObsY014XWKymA hyUmeiHfPGmq5wRD8oJihrsLU + WM66ln01O4WcIilpDvy1TZKlH PQ1fMU0gM2oLVGmNHiyv1S5hP W0K2FeoaIkxi8lj3yfGAJnFJd g I78nbMJsh2M0NLOkjHR1RKUrz HljDeAksO83Tbk+PGNvbGdyb3 ShUqevy8bmh1losYw2NtZoDHS g csHgbRayLNE3a4BqKv60T37pW HdpZHRoPSIzMCUiIHZhbGlnbj 7qmV0fKt6+GJOfxQZ8dYL9hO9 i OtFgPtL2ITztJ247BsYrdEIeC eekd7vie8ubvWp1FtInENReaj LwgZxhLTS3s7EsGc80T3JagBi y c0YfMdx8kg88sXXct5Z7wJO8L 9MqUTCqtiivhWZkgOraRI0vEH SyayjwPCQutU6sVSBcZ1y3BkY w PdV7SMjuF8SlnnO7HDVvqYMaW XPkfIVPfE5rnxnns1mbzuneBn BgMJMiYPe7TVj5YKWjkByuMqE s VCE9BxV3LVM1mDLxzK7jpQsld aycuG6rWfh+RJh7h4yrzYQdTN 7hhAR0CF84LB58bZTsx4U3hOK 9 L3JjRHRqbulknmrcjSF3TUCoJ JTztL79Pl8wyIzwSm0eEZJvCN R8DXBxkHIbK3YlfM2eYrUgSZD w UHZmE6BerOYfSEjeK982LDepS pK1DCKxbmHbC5AhFJTsoHqvDj I4g2Q5Qk5RDZ49NS02SI15aIY g p1U8zEV8G5LhNLQonfrfvamso UG7AUUfISEsjT75Af5adGunAu 6vPSHeVOF2GYOfkRFqD0TjmC6 y NkEvOHIoWBRyN3FweJTuAFpvC 074DHaoGsM4BANvzvMiH8SnEE FymKyqLkR4l3O0Ez3FZx66LP7 0 NJ75pJOpk8T9iBP9F2BsLOHil qcmpxisuJQ0HNPfTZPbxV18Em 8icIqvDe8cEDSwUXI7JEQwgHV z F8EjfX5fDsUyOSWvMTJkL7Nhh GIfMCiqP561OFqhZrH1TAAcny EqJ2ShEBEurCreElY2h7P0Ro6 Q VOwwzax0K7DsFvqbcTW+PC90Y FApBJ18vXKzoWMsi5eoeCq7Qw MiYBAoLXG0tDngBSagw8QpDFV t Y29s (more content not included)... Normal [facility] Coding Summary.on 02-07-2022 Coding Summary. CD:[id number] Gh0bW w+PGhlYWQ+TY2KNWJaJ35vpGI rjM7QS3uRFL2VINZGMZBHAK4O AU7kwGD6COglQ8AczjBu CrmbfRBnOG06MWb1UBY8wEmbN EehyL3ogYPmM7e8SeZoKM88pD 22VCnwQKUhBoJ1LjFexyjdvCX y Y6opHbYhhKJpKjs+PHRhYmxlI HdpZHRoPScxMDAlJyBzdHlsZT 2bMb1iPUPrXPShkAnzgLAvKxB j o3igZCLvSNpsJC5ekQtdM5Lax OM0ZJRkm6j9Lo72lMS+PHRkIH F9wCilSHtig136EeUiv9stSRJ 3 dBIaIHobVXN7W51ti7G6UGReH UMdHEG5jMC0hL5pvAjwgsynM0 RtmDWbOhU2ZNK2vRMyfL1swIf n qmurtU2xOfh+X79FFO5LVTHKN A1VDtn7F1IgBlkywCO+PC90YW YzKR25qPRejVMyp6cymKr8BaV w PFHiHZZ7xWpxUDpzc3BiGLBlZ 06ztVSgr1K2UWAnbEtilKCdXv OqaJJ2xT3gDQnytiogz1wildg n Zpzvc9bjxo41cH35W41yLKidS NXdHXH2DDWlITAfoAeekc9laY 9wIi8+SWzgi9jwf2fmlQe6JtK w VYEutqUzoWonMWU0h5GnHv01Q 2WgfQyux4EvAws8fn57yEOau9 J7pYX4XAgnWHWgoA1cQTqgQcK 6 VLXxAgWfnW25rMQdYYstNd0uj KjdpTlpBD3hFOJpjsltSXUlhV 1mDSGqsQLoeKoqZQ0rFTOlyfk m u749UpFuNAK5FVXzzNUgR8Suc E8iEjWgERKlCBDoU4PewZRqGM eoJ320PEcrJgB4JTJjsgVtI1N s HOThiIemPaN1i6O8Fc2Vb5Nco rbrWFF3DNgbTTUuIrXtPfPxQc B1P6FqEvk6LRMvlPpaPY9qA3H h ZAUyvaccfqetqMS7FUVmWYVlw P27oXCrCWhvHy8hq9M3u701FV AcGEKaxZ22Bn5mdIseUQQfkUL U dI1klxejk9etrmauPnUtFFWpG Rb7ERz5STEkjRncChHfZBR0Hu Y8YKX2pFLbgZ7pvMlifgtzmT6 w Oyc+Y55itG2iYWL6NWO5zegeR JUzmaLyKB17DL99X1DfXmiwlT FibGU+LNOeyxMtlCprZD6iZiE j w6vzf1IpJVgdJ9RyYMEfFCduC ss0RHUlKRR3iLR5fL7hFPQnMG izw9H6vIT2B9EqfqHoyu1el6d s ZPPyQZsoK31ahHAbs1X7LXDtj FK5CWHguYpqWaOiiC41Fdj+PG LaqKojc7XnQfooy9yyv7wxeWx 9 HxEqTUUqedCvlHmyOFP6a7BdA a83L96nFJpsQRWuIFZeOBAeDZ FkpWnyyh3csK0tVm4+PGNvbCB 3 jEE4gD8lZQBwTeD6FUxyK726O nFwyCVjMllwx1hua2pxkUy0Kd YeRYUchlDzeHgvCVF6e5NgHa6 8 T41dTFqoILKbVMBfIBFvSNNpm Cwdxg7qfP3yJb9+NF6es3fsdu 21kL62zKG+ELOyWWU1kKpiJMx w QDEdyK7gYRbjEcA9FCCfJvEsa V91tWZnCCxyHj7cjVamuQntYH 5yEUSravjno204KrDyb8rcFHR w yNByCWxoKFM8R93et0W7YVLfV XRnKLF5kYT3aN4ydPqyqpmihK CtwDfklkEccUgdBLcgQXxqD60 6 IHRvcDsnPlBhdGllbnQgTmFtZ Pt0M0IrYmx1BVYqcPjwCO3ktQ TmPIhsMc5vcJdklCwgVQ0gJUN p elfgs500YdPgi2cfVPWgrWCxE OskSZY9G70px7A2PYEzGKDdVO X2bND4oT3fhHlyeuvhyWPwoXh g rgUkwLqvETbyDLwiQ067RYQdf IsrXkVxuaOhADLovVM4RK46OK 06gRSqt2M7lHV0F7TfEVPthgc t ppqzeYN1GAJgVGJffZ29Kc5ly RjnNv6bAKGzURN0OQExgADpY2 ZqkD9cHmHcSMSxWMJyE2MskRN t GYwzC059EZnvRnH5LLUyvkMiK 2GkOJMjcOnrLtQ5i9Y0Ij2LQ6 U5KR93RP33eJBas1L2hXX9N8F h LPYiwtrorenqnOK1ULNkDEEap E00Pl6dlUlwLi4pFWVvNAW7IY AwyJQoH8XikB3aAeYwEOBoURV w B7XuuXFvQOwfR076WBtwLzE6P VBouxKzH5UdHJRtgMjaWtW8w7 A9Yl3ICGl7RD65WB05eBSpi4C 5 eXY3P5GwSUUhuytuvfgyaBS3P LXtSOLabZ80Qi6buKpaBz2tJP GgOSS1OMUqrQFfG8MwsX3iNkB j WRAhAVLqK5VzfDSjZPksC074I NvxOuK2UUBgsqZeZ4SkVUBteG grDeX1f5Y7Au6ZVLUvAE95REB 5 oPO9OP38ZO11M6OuJivqbFFfm +PHRhYmxlIHdpZHRoPScxMD StIjMhyOqoSE7hQf0fMSJbYDJ v jDskhGYvVbBlg5upFSXxMTllP E1xsSfbJ5YxeXG6FCKtw2w7No 86G90uO8CgnRP+TICmrNB3wCR 0 tY3gKvVfWqI9GKytV494BmVjb TWlUqagm8qou5qdhOj3XfJ9FY XzhtMvlIonSFD2x4AtLn51L00 s IHdpZHRoPSIxNSUiIHZhbGlnb v8kbY3dPe9+FJAboIB6zTL2oP 5xXbViNkV9MMkeF605TnRarWB v Gjtah8acm7juwXt6SjGfZPHhg tVtqUifKOG8i2SiDy12R0KdiU ypi0FlGch0qy91oQGgg7L8kKO 9 S3SnXIPtutrrgLIupGknSG4mN DAdkmzqYDHaeP4aXZPhE8a3Pr NaHhG3UHdqK0ZxccL5GSKjuZJ g CLimXBO6X55rx0R7MXQhRLIhE WR5aKO1jB0gyOlkxbcbdYZdrT jgtdYaxUseZTomETgwO713GHX v oUyjOUCidW1mIBRaqVIkyMpzE G1mJRElswzvOsHUW7nNKGOnTT xPVUVMTEEgTDwvdGQ+PHRkIHN 0 kRhiBVfkNMIosT5rCPZiZ6b4N uTkHcC7TSfaM6YvIFYeozvfTk 63qO1oGoFrXdE9DEzkN9OidzX 6 KSZcgYDkTZmdLXF7N91tb0G7J ABcHFHzLUP0iAE1fW8yhLryqu ogbGVmdDsgdmVydGljYWwtYWx p W537LUUdaSwgOvHfIiT5PpU9B bH1Z2ExHtn0VJGmkYdtYC3hcJ BnIOumOd8xtKkaqWdhCD0zNWB p rgfsIWYuvW1iOXDokLCdbEsoJ V2rIEInerxpn729PaWbOVG1JG PczSHkQ3WuoY5mFhDwDULaBYE w H5BzeNNhBCvhE549ORrrIvW5E SFzvqBqH4CeCBAjqMblYeA0u9 O6Pu74WGAEAHOoqnldnRZ+PHR k MZN1kKnyIQuwYMFmiE8zCYGrH 3w6XwLdCqJ5DSbtV2LeFRJtkx eeYt94uI7wLtOkHmR0SHkeB0Q v fyH5RELzmJXcGUkwNGS5N54zs 5X0NECeKRPrJEZ6qVG1uK1ktS lnbjogbGVmdDsgdmVydGljYWw t VMhuB944QZLflGniCbGldZTsU TwvdGQ+HPOrXBS5nRjoAXhaRB RbuV2fLTUsZ3x5DsPzYlM7PZr u V5NhOXRvmmigKk62dJ2dAlZqK xV6EVtdD8YgwjN3BQYxuVCbFJ wjZMW3K44dg8W6AGJmDTUjJCU 7 xDO5tK6ujXjyisynrKVuvJgsh zSrqVhbYGgnJPtdW449DUAhiK gvNe34fGJdfVrzfiG7D6GaDjv v dHI+AA51NPDmLD83bXQgaGYuh 5xitAc7OgAgBGToFXO5fSqkRG ckq5EzTPGzD36rwLLih8W6VCX v nHmlfTYrKvOnhDO6jC2tFOpor kanr3opbrosFvfgb5jzdo16wT 47O04dCJxaYHGkLBUaXXWoICJ h nBxmko2liM7sRc0+JVLtoSQ2e DT1lF2sVbDlCbI9SIpoY124Wx UfqUSkZsamb4dpj3bpxQx7OvL w GJIfjxRbqZhuNPG9d7MpLh13I 29sIHdpZHRoPSIyMCUiIHZhbG uhbj5nlD6mAy9+AE4iz6iiky8 1 kD93jEW+NIRlYCN1dPidKPffS CNlnC9pNNwlHvW3FMQrElOusD 81eAPuXXrwSh1ltVnzzRsrQC9 w XCApdrkqm098SlBtw1dbMCVnh YDpVUbyUUS4K15rc1P6SCYrQP UtKFY1lGA4sB7isCtlqpsteEG m nMlmuvTyrQatPDzmPAguT012U ANxoSogWdTanTSvD6fsfwUNXT 1lOjwvdGQ+INAdUCX7aWyrIAz w IOWkmK2qQHCtZ7t1MkDzYyI1S DvvE8RhggL2FHXxtGRxFSRlnZ UCpC6htwkgu2jtjrurCzPrCNP w HQa9VNj6ZNLixIipLrEwTCZ0U aS1RWU7fFBwzY4xjJlyoznmsI 9wOyc+RklOOjwvdGQ+PHRkIHN 0 pTdxERsyNIGjxC8qWYFvW3f0E rJqEbE0IDdjS2HfzlJ4ZWGawL JyDDIeoHVYlE4iuqqbg6gwhpp g ApJgQNXdOVv0EJg4BJKijSngG sMiGFI1GkH4JNR7rFMfwY5eiH kjsbnnzA6fNfu+TVJOOjwvdGQ + TRAgAMR0dSzuTQonLLLdqY0lN ENgO8o0LmJkWsD3QPgrL1Oeuu J5ZOHbjWTrZOEeaHIQhK5xtbv j z4ghkntoDwDyLAUpWTu4IMe9K JIlaUcrVwYsTPP2YfK2FGD7iI CxsF5peUisipeidY5kVtz+UGF 5 WYL9DL10NI13D7CaMkpzlFXug +PHRhYmxlIHdpZHRoPScxMD FwLnRszCwoMT8xRs4qLOJtXYZ v bGxh (more content not included)... Normal [facility] Physician Orderon 02-07-2022 Physician Order [id number]:1 27 Normal [facility] BMPon 02-05-2022 Anion gap [Moles/Vol] 18 mmol/L High 6-16 [facility] Comment on above: Performed By: #### 2 [id number], [id number] #### [facility] [address] [place] [address] Calcium [Mass/Vol] 9.6 mg/dL Normal 8.9-11.1 [facility] Comment on above: Performed By: #### 2 [id number], [id number] #### [facility] [address] [place] [address] Chloride [Moles/Vol] 101 mmol/L Normal 101-111 [facility] Comment on above: Performed By: #### 2 [id number], [id number] #### [facility] [address] [place] [address] CO2 [Moles/Vol] 23 mmol/L Normal 21-31 [facility] Comment on above: Performed By: #### 2 [id number], [id number] #### [facility] [address] [place] [address] Creatinine [Mass/Vol] 1.0 mg/dL Normal 0.5-1.3 [facility] Comment on above: Performed By: #### 2 [id number], [id number] #### [facility] [address] [place] [address] Glucose [Mass/Vol] 154 mg/dL Normal 55-199 [facility] Comment on above: Result Comment: If t his glucose result represents a fasting glucose, interpretation should refer to the following reference range: 55-99 mg/dL Performed By: #### 2 [id number], [id number] #### [facility] [address] [place] [address] Potassium [Moles/Vol] 3.9 mmol/L Normal 3.5-5.3 [facility] Comment on above: Performed By: #### 2 [id number], [id number] #### [facility] [address] [place] [address] Sodium [Moles/Vol] 138 mmol/L Normal 135-145 [facility] Comment on above: Performed By: #### 2 [id number], [id number] #### [facility] [address] [place] [address] Urea nitrogen [Mass/Vol] 19 mg/dL Normal 5-21 [facility] Comment on above: Performed By: #### 2 [id number], [id number] #### [facility] [address] [place] [address] Urea nitrogen/Creatinine [Mass ratio] 19 No Units Normal 10-20 [facility] Comment on above: Performed By: #### 2 [id number], [id number] #### [facility] [address] [place] [address] CHEMISTRYOrdered By: SYSTEM SYSTEM on 02-05-2022 Anion gap [Moles/Vol] 18 mmol/L High 6 - 16 mEq/L [facility] Remisol Calcium [Mass/Vol] 9.6 mg/dL Normal 8.9 - 11. 1 mg/dL [facility] Remisol Chloride [Moles/Vol] 101 mmol/L Normal 101 - 1 11 mmol/L [facility] Remisol CO2 [Moles/Vol] 23 mmol/L Normal 21 - 31 mmol/L [facility] Remisol Creatinine [Mass/Vol] 1.0 mg/dL Normal 0.5 - 1.3 mg/dL [facility] Remisol GFR/1.73 sq M.predicted among blacks MDRD (S/P/Bld) [Vol rate/Area] mL/min/1.73 m2 Normal >=59mL/min /1.73 m2 [facility] Chem S GFR/1.73 sq M.predicted among non-blacks MDRD (S/P/Bld) [Vol rate/Area] 59 mL/min/1.73 m2 Normal >=59mL/min /1.73 m2 [facility] Chem S Glucose [Mass/Vol] 154 mg/dL Normal 55 - 199 mg/dL [facility] Remisol Potassium [Moles/Vol] 3.9 mmol/L Normal 3.5 - 5.3 mmol/L [facility] Remisol Sodium [Moles/Vol] 138 mmol/L Normal 135 - 145 mmol/L [facility] Remisol Urea nitrogen [Mass/Vol] 19 mg/dL Normal 5 - 21 mg/dL [facility] Remisol Urea nitrogen/Creatinine [Mass ratio] 19 mg/mg Normal 10 - 20 [facility] Remisol Consent for Treatmenton 01-10 Consent for Treatment [id number]#[id number]:12 7 Normal [facility] Physician Orderon 02-05-2022 Physician Order [id number]#1.00CD:12 7 Normal [facility] eGFRon 02-05-2022 GFR/1.73 sq M.predicted among blacks MDRD (S/P/Bld) [Vol rate/Area] mL/min/{1.73_m2} Normal >=59 [facility] Comment on above: Order Comment: Order added by Discern Expert. Result Comment: eGFR is race adjusted. AA=. Performed By: #### 2 [id number], [id number] #### [facility] [address] [place] [address] GFR/1.73 sq M.predicted among non-blacks MDRD (S/P/Bld) [Vol rate/Area] 59 mL/min/1.73 m2 Normal >=59 [facility] Comment on above: Order Comment: Order added by Discern Expert. Result Comment: Deputy Chief Magistrate shayne kidney disease could be indicated at eGFR's of less than 60 mL/min/1.73m2. Kidney failure is indicated at less than 15 mL/min/1.73m2. Performed By: #### 2 [id number], [id number] #### [facility] [address] [place] [address] Coding Summary.on 01-15-2022 Coding Summary. CD:[id number] Gh0bW w+PGhlYWQ+UC6BJQSeD99pgJR vrK1SK2vCYC3WAIHOKNYGLR8J XI0ztCG2WDwyM2CjecNr RyuzoWYyAC22ZOz6UUE3tOreH GwjoY0yfBVjX4s1GpDpZQ29lA 02SQccEWCaCnR8SzHavbrbzMH y R4duIsPgfUFiEwx+PHRhYmxlI HdpZHRoPScxMDAlJyBzdHlsZT 6zWu8cVRGzNEKhhHruvTKuDtM j d7cbBCOeXHtcDY7tkLffP1Hdb ZJ0KLEqg9f3Sb87tOZ+PHRkIH X6iMgyPDhnn349DmLdi0xkXLI 3 kGWkWFmjRLE4P41mk0J0ZHBgZ UMyVSX7eRI1eB8xfSyrbxusK0 KuzFZePwY8OOM6oEFzhH0sqFk n ghtfzP5yWsf+S93QZF0VARKUU S3WYiv3K9BjKsfsdTN+PC90YW UuJK51fBKetHKiy8drsSm2GlV w WJJdGPR6tGyzXGhqe2ZoWUCzI 78fjVGmv8F3RGGihTcbvSRpFo CqrQK0vR4hBUtxpfhsh5mgpws n Sbewv0nwza70bW93B64eWFxtD RGlVPK7VNNjQLGndObcoa7maE 9wIi8+LFuwl2uox3ajzUj1TkN w KMLkscFvsOyzLJU7k5PaWe24S 8NokSsbd6MmSzs0px62bMSgc7 B3vVS6FSuhHHKnzW8lQKkiGiD 6 QCZbLmXnaC40pFTcAWujRw3ih RekuRgeXM5vNEVpjrojZHDvyM 4hIFOvbUOqqWneQU8hNBQqngk m c431HrJhBEH2NCTezXMjZ4Jyh C5wTsZjXNHnNWDrI7CgvATwOV rbY979VPrzMpA7ZIBrzuPvO5F s KGMlcLtxGdF8m0F8Vc0Pk6Lay osaVFJ0EOxwKXQdAcD6PzPkZc E7H3CqSgt7CNIxpUseKF4kY1Y h BHYymssyupirjVL1YZWrJSZcf [id number] SkGWVvoA55Fu5bpDkuLTSpuCF U kU0izhyej2vfnjqrZxYnRKPjW Pt3FIw8RQKqaZovReXeRLJ6Ta J6AGN2eOGkrB0byIacrrrcsJ8 w Oyc+Y44jhW4vQBT1ZFW7ufjdR XBijsDgRZ14LZ12O9KiJlbppF FibGU+YRFtunAkfThcAU8uNrF j g3hzl1GlDZwiL0CoPYReUJtmK rf9WQDjDLO1iFE9sG8bPGGfSX dzm6H9nDF0N1CuanCwtr6nx9b s GSCtEIgtE26qnLSzw2Y0HLAtx BF3PEJyrZtqUtRpiK21Pfm+PG YomWkdr6LhLfrtc6qwm7uunPt 9 XoVxEIWwupEjxCpuGIW7k6IpM r54F75hEMppOZHzWJXpMPLbYS BfhRlnam5rrJ6rIq9+PGNvbCB 3 cLS6dD3yTWTnWaQ4UQbhN709Y lUpwIMuSfkwq0bvv5ooyPh9Yb MrAHXzuwUfkWzlWAH9u2UlXa2 8 N18qTHedBNIcCHOiBGExYUBkr Uxwxp4awM9aAu2+VN1tg0vfup 70cA16ePB+OKFzSEJ4dEapEBs w HCDmuB1zNGnrFeR7XWKsYvPkm E77zOBmJFprGt5boEaulVvxWC 6uZJZqczcuh600OsQqj0soOGK w uQSxHTuwWOT8W79qq9J4LUZwA DMzKLY6vVP3bT9rdWpdugfqyN NitJldwpVfeGgnEWvuLPusF93 6 IHRvcDsnPlBhdGllbnQgTmFtZ Tr4Q8OwLqa0EQLfaAquFB8vjX ZpHKedGg3meTbzpOvyED6eEQF p aiwmo590JaIfa7lqGHSmsXLqD LfiTYY3U78um4D0ZYFyXNYxVO X3sAZ1sR7xvKdiawoxdWPjoAv g hcBrxKfyNNztOMrlY662FBVwi FpdJqNuptMkEUBgrXB4SY21XR 07dBLtw0P3gCP0T4SiRPGejue t tfkemPC4BFAyRTYuoT41Ur8is ZvsDk3zDPMpXHV3JUEezHQkD2 PogA7aPrNqRWTvWKFpR0PwtUN t QSqjW126XLpeNlQ1ZAGfspVzV 9TqLORzgBwpMqL1d2Y0Aa1YK8 Q6WI07YV21pZApb8A1eXI4S7Y h GMXvpehgzcngpWA8DKTyFDUep I09Pb1tqIlvDe6wBZXxRTS9SR MpkNOaA9TdzB6uRqJqKENgGKI w W8CayZChRLbmE380UYjmNiE6T XXrygKnV1AfPSLnuFriUuC7h9 U1Al5WMYj3NQ17QK27jGMpx8M 5 cLR8C7DeOVPqcmghejhogHI0O JUyXZBvsG94Ne8pnZxwOk6eUA BrGUA2CFLomZShV6AjmI7aDpX j DVVxBKQyX6RclPGfDIbcA562R FpzYsT9MBTdwvHpR9OmIWDjaL urEdK3b7V8Ni5JHMXcUD61WYQ 5 oKF3SP02KQ17R3IbPpceqENsg +PHRhYmxlIHdpZHRoPScxMD PnMsJnyQdaBR8bCp5lDRHzTIH v zIzhpDSfNmAgp7jnVNQvJHxiN G0gsRpaQ5DuyGJ0XMOpv9n8Cf 38X98jG4SzoLT+IPDcwRH3sHY 0 yJ4kWyOwYsL1AUfcG474KjYqn HEyPepvu2ehy7nxlIn9FuN6DT JnmpSdbKayJLT3t9RtLz09R48 s IHdpZHRoPSIxNSUiIHZhbGlnb u4yqE7dDo0+WPXqbHL2qYN4eD 3kVdZnCiZ7BOvnH298OzCzrVO v Hgeqj2imh3dhaRy2TnFnSYVqt gCjhDbhNNC2e0LoQq01Q4EknG fqk6XlYna0ye49oSTiy3B5dIK 9 F3EaJDSwnimsiWHefLsrNG9hM OWskqqxOYFxiN0eOKHgK5r6Eg XmMdK0FSlzY7EshyU9PRUzdWN g NEvzUSQ4O10ba2L2UTOqRTNxM QR6nKX9cC2ykPrixnicdUUjbL wzolXocSuwMQmmXQzzC968WIV v hUwjANRejA6pZBFwsNBzaVkcC V8fRKHmrxhxGkYCY9bOJYXpCQ xPVUVMTEEgTDwvdGQ+PHRkIHN 0 nLzjRTjxTKEtjZ1oYVJwC9a9B eLaJqM7NAxxD9JhSBIusuhxWr 89jH0pNjPzIiX3KZohU3ZbmqA 6 HXOfbQUiSZfvYPO2X44xh3M9A QSiLIOmZXI8cJT5eG9ebCbfwj ogbGVmdDsgdmVydGljYWwtYWx p Y068GAPdxQsbYiCuMeR1UnR9N oR2T2MvOso0BAZnePnfWO8pxZ VxQBgbEb6ufCqzsHopVJ2zVSG p lhbfOXJjoP8oARNiiHIydXwlX K0hNEDxmyfcq465VwLuWEM2LE HieILwZ5PxcE9yMjMnVDPfMYY w G3SshZTdCIivV458HGrgTtA9C ZUqrxXwY7NgFFDkkFcwDqK1z8 S0Kv90ECITMJBfjqvruHL+PHR k UNH2bZxePLvjYUMjgJ5xOQUsM 1y3CbUgMvL1GLdpO5QgQKLktl qtEr66mP2mSaDaDzX3IAhrC0Y v heB4CIHpmCAeUChnYRN6Z37rn 0K8ITDcUEWeMIX6dYI3iY5muX lnbjogbGVmdDsgdmVydGljYWw t HKtlG742UGDqfFrcXvHkuOIcT TwvdGQ+GNTuPJR9hVrcZRoxYS ZtxP1dVNKaY3y6PqQsGyB3DFx u L4BlMXKxnvqpCc60sI2jFhJmD jF9YVzkM6MkghG7XHQvbXRzOR ytBMH4Q37ol2W1QTJtCDHuPWH 7 jMX7bX5oyLsbksfzdLJwjWnvg gLxsTunJKirVJtuK719MYAbiQ fzDa49qDCxtBzevpU6C0GvLmn v dHI+ZK26KAYeXB55tLFndIUzs 2ymnMv8CqTpSYXkBWB4uGmnTY tvs4MvCLAtJ57yvLJrh5X5MRH v bCsrkXDvRzTsaZJ4pJ9mCGqpp eeng6yjjrtjJknhv7dkqr54kA 06P03tVIveJQUqRTPqNELzIIN h vLnzql6mwJ3qBn1+WXGshGT3n AX4jJ7jLsNkBlU4RAggL968Kn TzxFVuFwxmc3ghb9azkEp2PcA w GJSmtfDzrJirTLY1u5MiRa17X 29sIHdpZHRoPSIyMCUiIHZhbG msmd5sdT4rGe8+CV8ao5wugs9 1 uM25pYG+ONCzYWC4sQedHZykS ZCewK3cVWxqNuU4FICjFbFexS 35sOLcOJtkAm3mpMuwmXemKS0 w JBJlridkw474XhKsb8tuBTZtm SDfINcvPAB5V37gp9Y2ZJRnND WtTJB6nZJ2gV5oqRojlmbveIO m nYyhgyTdaBznODucVOkcO938X LEkqOpkRoYtzEMfP5cdjzPFFI 1lOjwvdGQ+ZHVzNIJ8zLhnBVg w DALyeX2aMOFlY0j9EhOcGmG5V JjhR6SekjM6HYEpiFJzNBUuhI MGfD4byakwl5zpggqgMmPeNSF w ZOy6YOu2BMCdeLenCeOrJNJ1C jO8SGQ8cWQuvX3hcDioabfdvI 9wOyc+RklOOjwvdGQ+PHRkIHN 0 sWdmDGwuMKTubI9qZXPhI2s5G eZyNtK5SLnjC8DyqyS6XHGbsT WgRRDaeIGSiQ7acgiiq7vjzht g TvErOZTlTIk6DIa2EFOdrJkoQ dXxKQH8PfV1ZEY6qEJqzF8qvQ kqefjpiP8oFvv+TVJOOjwvdGQ + YUGqQZB9kBcgJMyrBYNcwA6pC LBwE1m9CkWkMlB7FDftF7Cfoj J0UULwkGFvWYCueIAQyJ7gxtn j w2eojeijEvBzZMVwBGg3CCi0V JFmtXxjEuIvVYG3ZtE3NZP1pD PufD1neSexdbqlyW6sQxt+UGF 5 SJN0VH34AD36N6TuFvaleVFkx +PHRhYmxlIHdpZHRoPScxMD GbUbPgzKrfWD7xFf3uQYPtHOT v bGxh (more content not included)... Normal [facility] Auto Diffon 01-08-2022 Basophils/100 WBC (Bld) 0.6 % Normal 0.0-2.0 [facility] Comment on above: Order Comment: Order Added by Discern Expert. Performed By: #### 2 [id number], [id number] #### [facility] [address] [place] [address]573 Basophils/Leukocytes Auto (Bld) [Pure # fraction] 0.1 E9/L Normal 0.0-0.2 [facility] Comment on above: Order Comment: Order Added by Discern Expert. Performed By: #### 2 [id number], [id number] #### [facility] [address] [place] [address] 15254 Eosinophils/100 WBC (Bld) 1.4 % Normal 0.0-8.0 [facility] Comment on above: Order Comment: Order Added by Discern Expert. Performed By: #### 2 [id number], [id number] #### [facility] [address] [place] [address] 18491 Eosinophils/Leukocytes Auto (Bld) [Pure # fraction] 0.2 E9/L Normal 0.0-0.5 [facility] Comment on above: Order Comment: Order Added by Discern Expert. Performed By: #### 2 [id number], [id number] #### [facility] [address] [place] [address] 43923 Lymphocytes/100 WBC (Bld) 35.6 % Normal 14.0-50.0 [facility] Comment on above: Order Comment: Order Added by Discern Expert. Performed By: #### 2 [id number], [id number] #### [facility] [address] [place] [address] Lymphocytes/Leukocytes Auto (Bld) [Pure # fraction] 4.2 E9/L High 1.0-4.0 [facility] Comment on above: Order Comment: Order Added by Discern Expert. Performed By: #### 2 [id number], [id number] #### [facility] [address] [place] [address] Monocytes/100 WBC (Bld) 3.0 % Low 4.0-14.0 [facility] Comment on above: Order Comment: Order Added by Discern Expert. Performed By: #### 2 776687, [id number] #### [facility] [address] [place] [address] Monocytes/Leukocytes Auto (Bld) [Pure # fraction] 0.4 E9/L Normal 0.2-1.0 [facility] Comment on above: Order Comment: Order Added by Discern Expert. Performed By: #### 2 001171, [id number] #### [facility] [address] [place] [address] 607[address] Neutrophils/100 WBC (Bld) 59.4 % Normal 36.0-75.0 [facility] Comment on above: Order Comment: Order Added by Discern Expert. Performed By: #### 2 621301, [id number] #### [facility] [address] [place] [address] 00201 Neutrophils/Leukocytes Auto (Bld) [Pure # fraction] 7.0 E9/L Normal 2.0-7.5 [facility] Comment on above: Order Comment: Order Added by Discern Expert. Performed By: #### 2 480438, [id number] #### [facility] [address] [place] [address] BMPon 01-08-2022 Anion gap [Moles/Vol] 17 mmol/L High 6-16 [facility] Comment on above: Performed By: #### 2 668432, [id number] #### [facility] [address] [place] [address] 95029 Calcium [Mass/Vol] 10.1 mg/dL Normal 8.9-11.1 [facility] Comment on above: Performed By: #### 2 122907, [id number] #### [facility] [address] [place] [address] Chloride [Moles/Vol] 99 mmol/L Low 101-111 [facility] Comment on above: Performed By: #### 2 549116, [id number] #### [facility] [address] [place] [address] CO2 [Moles/Vol] 22 mmol/L Normal 21-31 [facility] Comment on above: Performed By: #### 2 030417, [id number] #### [facility] [address] [place] [address] Creatinine [Mass/Vol] 1.1 mg/dL Normal 0.5-1.3 [facility] Comment on above: Performed By: #### 2 193701, [id number] #### [facility] [address] [place] [address] Glucose [Mass/Vol] 356 mg/dL High 55-199 [facility] Comment on above: Result Comment: If t his glucose result represents a fasting glucose, interpretation should refer to the following reference range: 55-99 mg/dL Performed By: #### 2 934601, [id number] #### [facility] [address] [place] [address] Potassium [Moles/Vol] 4.2 mmol/L Normal 3.5-5.3 [facility] Comment on above: Performed By: #### 2 748095, [id number] #### [facility] [address] [place] [address] Sodium [Moles/Vol] 134 mmol/L Low 135-145 [facility] Comment on above: Performed By: #### 2 105480, [id number] #### [facility] [address] [place] [address] Urea nitrogen [Mass/Vol] 18 mg/dL Normal 5-21 [facility] Comment on above: Performed By: #### 2 131409, [id number] #### [facility] [address] [place] [address] Urea nitrogen/Creatinine [Mass ratio] 16 No Units Normal 10-20 [facility] Comment on above: Performed By: #### 2 456846, [id number] #### [facility] [address] [place] [address] CBC w/ Auto Diffon Erythrocyte distribution width (RBC) [Ratio] 13.5 % Normal 10.9-14.2 [facility] Comment on above: Performed By: #### 2 706064, [id number] #### [facility] [address] [place] [address] Hematocrit (Bld) [Volume fraction] 46.4 % High 34.0-46.0 [facility] Comment on above: Performed By: #### 2 348754, [id number] #### [facility] [address] [place] [address] Hemoglobin (Bld) [Mass/Vol] 15.8 g/dL Normal 12.0-16.0 [facility] Comment on above: Performed By: #### 2 774021, [id number] #### [facility] [address] [place] [address]206 MCH (RBC) [Entitic mass] 30.4 pg Normal 27.0-34.0 [facility] Comment on above: Performed By: #### 2 482995, [id number] #### [facility] [address] [place] [address] MCHC (RBC) [Mass/Vol] 34.1 g/dL Normal 31.4-36.0 [facility] Comment on above: Performed By: #### 2 576374, [id number] #### [facility] [address] [place] [address] MCV (RBC) [Entitic vol] 89.1 fL Normal 80.0-100.0 [facility] Comment on above: Performed By: #### 2 126937, [id number] #### [facility] [address] [place] [address] Platelet mean volume (Bld) [Entitic vol] 9.8 fL Normal 6.4-10.8 [facility] Comment on above: Performed By: #### 2 126815, [id number] #### [facility] [address] [place] [address] Platelets (Bld) [#/Vol] 252.0 E9/L Normal 150. 0-500. 0 [facility] Comment on above: Performed By: #### 2 452623, [id number] #### [facility] [address] [place] [address] RBC (Bld) [#/Vol] 5.2 E12/L Normal 4.3-5.9 [facility] Comment on above: Performed By: #### 2 513117, [id number] #### [facility] [address] [place] [address] WBC corrected for nucl RBC Auto (Bld) [#/Vol] 11.8 E9/L High 4.0-11.0 [facility] Comment on above: Performed By: #### 2 540950, [id number] #### [facility] [address] [place] [address] CHEMISTRYOrdered By: SYSTEM SYSTEM on 01-08-2022 Anion gap [Moles/Vol] 17 mmol/L High 6 - 16 mEq/L [facility] Remisol Calcium [Mass/Vol] 10.1 mg/dL Normal 8.9 - 11. 1 mg/dL [facility] Chloride [Moles/Vol] 99 mmol/L Low 101 - 1 11 mmol/L [facility] CO2 [Moles/Vol] 22 mmol/L Normal 21 - 31 mmol/L [facility] Creatinine [Mass/Vol] 1.1 mg/dL Normal 0.5 - 1.3 mg/dL [facility] GFR/1.73 sq M.predicted among blacks MDRD (S/P/Bld) [Vol rate/Area] mL/min/1.73 m2 Normal >=59mL/min /1.73 m2 [facility] Chem S GFR/1.73 sq M.predicted among non-blacks MDRD (S/P/Bld) [Vol rate/Area] 53 mL/min/1.73 m2 Low >=59mL/min /1.73 m2 [facility] Chem S Glucose [Mass/Vol] 356 mg/dL High [...] Consent for Treatmenton 12-11 Consent for Treatment [id number]:12 7 Normal [facility] HEMATOLOGYOrdered By: SYSTEM SYSTEM on 01-08-2022 Basophils/100 [...] 7.0 E9/L Normal 2.0 - 7.5 E9/L [facility] HemeAutoSS HEMATOLOGYOrdered By: Wild Beaver on 01-08-2022 Erythrocyte distribution width (RBC) [Ratio] 13.5 % Normal 10.9 - 14.2 % [facility] Heme[employer] Hematocrit (Bld) [Volume fraction] 46.4 % High 34.0 - 46.0 % [facility] Hemoglobin (Bld) [Mass/Vol] 15.8 g/dL Normal 12.0 - 16.0 gm/dL [facility]e[employer] MCH (RBC) [Entitic mass] 30.4 pg Normal 27. 0 - 34.0 pg [facility] MCHC (RBC) [Mass/Vol] 34.1 g/dL Normal 31.4 - 36.0 gm/dL [facility]e[employer] MCV (RBC) [Entitic vol] 89.1 fL Normal 80.0 - 100.0 fL [facility] Platelet mean volume (Bld) [Entitic vol] 9.8 fL Normal 6.4 - 10.8 fL [facility] Platelets (Bld) [#/Vol] 252.0 E9/L Normal 150. 0 - 500.0 E9/L [facility]e[employer] RBC (Bld) [#/Vol] 5.2 E12/L Normal 4.3 - 5.9 E12/L [facility]e[employer] WBC corrected for nucl RBC Auto (Bld) [#/Vol] 11.8 E9/L High 4.0 - 11.0 E9/L [facility]e[employer] Pharmacy Officeon 01-08-2022 Pharmacy Office [id number]#[id number]:1 27 Normal [facility] Physician Orderon 01-08-2022 Physician Order [id number]#[id number]:12 7 Normal [facility] eGFRon 01-08-2022 GFR/1.73 sq M.predicted among blacks MDRD (S/P/Bld) [Vol rate/Area] mL/min/{1.73_m2} Normal >=59 [facility] Comment on above: Order Comment: Order added by Discern Expert. Result Comment: eGFR is race adjusted. AA=. Performed By: #### 2 [id number], [id number] #### [facility] [address] [place] [address] GFR/1.73 sq M.predicted among non-blacks MDRD (S/P/Bld) [Vol rate/Area] 53 mL/min/1.73 m2 Low >=59 [facility] Comment on above: Order Comment: Order added by Discern Expert. Result Comment: Deputy Chief Magistrate shayne kidney disease could be indicated at eGFR's of less than 60 mL/min/1.73m2. Kidney failure is indicated at less than 15 mL/min/1.73m2. Performed By: #### 2 524404, [id number] #### [facility] [address] [place] [address] PTH INTACTon 09-13-2021 PTH, Intact 17 pg/mL Normal 15-65 [facility] Comment on above: Performed By: #### M G, RENAL, URIC #### [facility] [address] [address] [address] Tyree Botello HEMOGRAM AND PLATELon 2021 Hematocrit (Bld) [Volume fraction] 46.5 % Normal 36.0-48.0 [facility] Comment on above: Performed By: #### M G, RENAL, URIC #### [facility] [address] [address] [address] Tyree Botello Hemoglobin (Bld) [Mass/Vol] 15.7 g/dL Normal 12.0-16.0 [facility] Comment on above: Performed By: #### M G, RENAL, URIC #### [facility] [address] [address] [address] Tyree Botello MCH (RBC) [Entitic mass] 30.0 pg Normal 26.7-34.0 [facility] Comment on above: Performed By: #### M G, RENAL, URIC #### [facility] [address] [address] [address] Tyree Botello MCHC (RBC) [Mass/Vol] 33.8 g/dL Normal 29.9-35.2 [facility] Comment on above: Performed By: #### M G, RENAL, URIC #### [facility] [address] [place] [address] Dr. Tyree Botello MCV (RBC) [Entitic vol] 88.9 fL Normal 81.0-99.0 [facility] Comment on above: Performed By: #### M G, RENAL, URIC #### [facility] [address] [place] [address] Dr. Tyree Botello PLT 261 103/ul Normal 150-450 [facility] Comment on above: Performed By: #### M Quinton, RENAL, URIC #### [facility] [address] [place] [address] Dr. Tyree Botello RBC 5.23 106/ul Normal 4.20-5.40 [facility] Comment on above: Performed By: #### M Quinton, RENAL, URIC #### [facility] [address] [place] [address] Dr. Tyree Botello WBC 11.1 103/ul Critically high 4.0-11.0 [facility] Comment on above: Performed By: #### M Quinton, RENAL, URIC #### [facility] [address] [place] [address] Dr. Tyree Botello MAGNESIUMon 09-12-2021 Magnesium [Mass/Vol] 1.3 mg/dL Critically low 1.8-2.4 [facility] Comment on above: Performed By: #### M G, RENAL, URIC #### [facility] [address] [place] [address] Dr. Tyree Botello RENAL FUNCTION PANELon 09-12 Albumin [Mass/Vol] 3.4 g/dL Normal 3.4-5.0 [facility] Comment on above: Performed By: #### M G, RENAL, URIC #### [facility] [address] [place] [address] Dr. Tyree Botello Calcium [Mass/Vol] 10.3 mg/dL Critically high 8.5-10.1 [facility] Comment on above: Performed By: #### M G, RENAL, URIC #### [facility] [address] [address] [address] Tyree Botello Chloride [Moles/Vol] 100 mmol/L Normal 98-107 [facility] Comment on above: Performed By: #### M G, RENAL, URIC #### [facility] [address] [address] [address] Tyree Botello CO2 [Moles/Vol] 23.1 mmol/L Normal 21.0-32.0 [facility] Comment on above: Performed By: #### M G, RENAL, URIC #### [facility] [address] [address] [address] Tyree Botello Creatinine [Mass/Vol] 1.11 mg/dL Critically high 0.55-1.02 [facility] Comment on above: Performed By: #### M G, RENAL, URIC #### [facility] [address] [address] [address] Tyree Botello EGFR-AF DUTCH >60 Normal >=60 [facility] Comment on above: Performed By: #### M G, RENAL, URIC #### [facility] [address] [address] [address] Tyree Botello EGFR-NON AF DUTCH 52 mL/min/1.73m2 Critically low >=60 [facility] Comment on above: Performed By: #### M G, RENAL, URIC #### [facility] [address] [address] [address] Tyree Botello Glucose [Mass/Vol] 239 mg/dL Critically high 74-106 [facility] Comment on above: Performed By: #### M G, RENAL, URIC #### [facility] [address] [address] [address] Tyree Botello Phosphate [Mass/Vol] 2.6 mg/dL Normal 2.6-4.7 [facility] Comment on above: Performed By: #### M G, RENAL, URIC #### [facility] [address] [address] [address] Tyree Botello Potassium [Moles/Vol] 4.2 mmol/L Normal 3.5-5.1 [facility] Comment on above: Performed By: #### M G, RENAL, URIC #### [facility] [address] [place] [address] Dr. Tyree Botello Sodium [Moles/Vol] 137 mmol/L Normal 136-145 [facility] Comment on above: Performed By: #### M G, RENAL, URIC #### [facility] [address] [place] [address] Dr. Tyree Botello Urea nitrogen [Mass/Vol] 21.0 mg/dL Critically high 7.0-18 .0 [facility] Comment on above: Performed By: #### M G, RENAL, URIC #### [facility] [address] [place] [address] Dr. Tyree Botello UA RANDOM W/MICROSCOPICon BACTERIA MODERATE Abnormal NONE SEEN [facility] Comment on above: Performed By: #### M G, RENAL, URIC #### [facility] [address] [place] [address] Dr. Tyree Botello Bilirubin Ql (U) Negative Normal NEGATIVE [facility] Comment on above: Performed By: #### M G, RENAL, URIC #### [facility] [address] [place] [address] Dr. Tyree Botello CAST SEEN Abnormal NONE SEEN [facility] Comment on above: Performed By: #### M G, RENAL, URIC #### [facility] [address] [place] [address] Dr. Tyree Botello Clarity (U) CLEAR Normal CLEAR [facility] Comment on above: Performed By: #### M G, RENAL, URIC #### [facility] [address] [place] [address] Dr. Tyree Botello Color (U) YELLOW Normal YELLOW [facility] Comment on above: Performed By: #### M G, RENAL, URIC #### [facility] [address] [place] [address] Dr. Tyree Botello Crystals LM Nom (Urine sed) NONE SEEN Normal NONE SEEN [facility] Comment on above: Performed By: #### M G, RENAL, URIC #### [facility] [address] [address] [address] Tyree Botello Epithelial cells LM Ql (Urine sed) FEW Abnormal NONE SEEN /RARE [facility] Comment on above: Performed By: #### M G, RENAL, URIC #### [facility] [address] [address] [address] Tyree Botello Glucose Ql (U) >1000 Abnormal NEGATIVE [facility] Comment on above: Performed By: #### M G, RENAL, URIC #### [facility] [address] [address] [address] Tyree Botello Hemoglobin Ql (U) SMALL Abnormal NEGATIVE [facility] Comment on above: Performed By: #### M G, RENAL, URIC #### [facility] [address] [address] [address] Tyree Botello HYALINE CAST RARE Normal [facility] Comment on above: Performed By: #### M G, RENAL, URIC #### [facility] [address] [address] [address] Tyree Botello Ketones Ql (U) Negative Normal NEGATIVE [facility] Comment on above: Performed By: #### M G, RENAL, URIC #### [facility] [address] [address] [address] Tyree Botello LEUKOCYTES Negative Normal NEGATIVE [facility] Comment on above: Performed By: #### M G, RENAL, URIC #### [facility] [address] [address] [address] Tyree Botello MUCOUS NONE SEEN Normal NONE SEEN [facility] Comment on above: Performed By: #### M G, RENAL, URIC #### [facility] [address] [address] [address] Tyree Botello Nitrite Ql (U) Negative Normal NEGATIVE [facility] Comment on above: Performed By: #### M G, RENAL, URIC #### [facility] [address] [address] [address] Tyree Botello pH (U) 5.5 [pH] Normal 5-9 [facility] Comment on above: Performed By: #### M G, RENAL, URIC #### [facility] [address] [address] [address] Tyree Botello RBC 2-5 Abnormal 0-2 [facility] Comment on above: Performed By: #### M G, RENAL, URIC #### [facility] [address] [place] [address] Dr. Tyree Botello SPEC GRAVITY >=1.030 Abnormal 1.005-<=1. 025 [facility] Comment on above: Performed By: #### M G, RENAL, URIC #### [facility] [address] [place] [address] Dr. Tyree Botello UA PROTEIN 100 mg/dl Abnormal NEGATIVE/ TRACE [facility] Comment on above: Performed By: #### M G, RENAL, URIC #### [facility] [address] [place] [address] Dr. Tyree Botello Urobilinogen Qn (U) 0.2 {Jennifer'U}/dL Normal 0.2 - 1. 0 [facility] Comment on above: Performed By: #### M G, RENAL, URIC #### [facility] [address] [place] [address] Dr. Tyree Botello WBC 5-10 Abnormal NONE SEEN [facility] Comment on above: Performed By: #### M G, RENAL, URIC #### [facility] [address] [place] [address] Dr. Tyree Botello URIC ACID SERUMon 09-12-2021 Urate [Mass/Vol] 6.5 mg/dL Critically high 2.6-6.0 [facility] Comment on above: Performed By: #### M G, RENAL, URIC #### [facility] [address] [place] [address] Dr. Tyree Botello URINE T PROTEIN CREAT RATIOo n 09-12-2021 Protein (U) [Mass/Vol] 177.8 mg/dL Critically high <=12.0 [facility] Comment on above: Performed By: #### M G, RENAL, URIC #### [facility] [address] [place] [address] Dr. Tyree Botello UR PROT CREAT RAT 1.06 Normal [facility] Comment on above: Performed By: #### M G, RENAL, URIC #### [facility] [address] [place] [address] Dr. Tyree Botello URINE CREAT 168.43 mg/dL Normal 20.00-300. 00 [facility] Comment on above: Performed By: #### M G, RENAL, URIC #### [facility] [address] [place] [address] Dr. Tyree Botello VITAMIN D 25 OHon 09-12-2021 VIT D 25-OH 45.5 ng/mL Normal [facility] Comment on above: Performed By: #### M G, RENAL, URIC #### [facility] [address] [place] [address] Dr. Tyree Botello VIT D RANGES SEE BELOW Normal [facility] Comment on above: Result Comment: <20 ng/mL Vit D deficient 20 - <30 ng/mL Vit D insufficient 30 - 100 ng/mL Vit D sufficient >100 ng/mL Potential Toxicity Performed By: #### M G, RENAL, URIC #### [facility] [address] [place] [address] Dr. Tyree Botello CBC AUTO DIFFon 08-30-2021 BASO # 0.1 103/ul Normal 0.0-0.1 [facility] Comment on above: Performed By: #### M G, RENAL, URIC #### [facility] [address] [place] [address] Dr. Tyree Botello Basophils/100 WBC (Bld) 0.5 % Normal 0.2-2.0 [facility] Comment on above: Performed By: #### M G, RENAL, URIC #### [facility] [address] [place] [address] Dr. Tyree Botello EO # 0.1 103/ul Normal 0.0-0.7 [facility] Comment on above: Performed By: #### M G, RENAL, URIC #### [facility] [address] [place] [address] Dr. Tyree Botello Eosinophils/100 WBC (Bld) 1.1 % Normal 0.9-7.0 [facility] Comment on above: Performed By: #### M G, RENAL, URIC #### [facility] [address] [place] [address] Dr. Tyree Botello Erythrocyte distribution width (RBC) [Ratio] 12.7 % Normal 11.0-15.0 [facility] Comment on above: Performed By: #### M G, RENAL, URIC #### [facility] [address] [place] [address] Dr. Tyree Botello Hematocrit (Bld) [Volume fraction] 44.6 % Normal 36.0-48.0 [facility] Comment on above: Performed By: #### M G, RENAL, URIC #### [facility] [address] [place] [address] Dr. Tyree Botello Hemoglobin (Bld) [Mass/Vol] 15.0 g/dL Normal 12.0-16.0 [facility] Comment on above: Performed By: #### M G, RENAL, URIC #### [facility] [address] [place] [address] Dr. Tyree Botello IG # 0.05 10e3/ul Critically high 0.00-0.03 [facility] Comment on above: Performed By: #### M G, RENAL, URIC #### [facility] [address] [place] [address] Dr. Tyree Botello IG % 0.4 % Normal 0.0-0.5 [facility] Comment on above: Performed By: #### M G, RENAL, URIC #### [facility] [address] [place] [address] Dr. Tyree Botello LYMPH # 3.6 103/ul Normal 1.2-3.8 [facility] Comment on above: Performed By: #### M G, RENAL, URIC #### [facility] [address] [place] [address] Dr. Tyree Botello Lymphocytes/100 WBC (Bld) 29.8 % Normal 20.5-60.0 [facility] Comment on above: Performed By: #### M G, RENAL, URIC #### [facility] [address] [place] [address] Dr. Tyree Botello MANUAL DIFF REQ NO Normal [facility] Comment on above: Performed By: #### M G, RENAL, URIC #### [facility] [address] [place] [address] Dr. Tyree Botello MCH (RBC) [Entitic mass] 29.9 pg Normal 26.7-34.0 [facility] Comment on above: Performed By: #### M G, RENAL, URIC #### [facility] [address] [place] [address] Dr. Tyree Botello MCHC (RBC) [Mass/Vol] 33.6 g/dL Normal 29.9-35.2 [facility] Comment on above: Performed By: #### M G, RENAL, URIC #### [facility] [address] [place] [address] Dr. Tyree Botello MCV (RBC) [Entitic vol] 88.8 fL Normal 81.0-99.0 [facility] Comment on above: Performed By: #### M G, RENAL, URIC #### [facility] [address] [place] [address] Dr. Tyree Botello MONO # 0.6 103/ul Normal 0.3-0.8 [facility] Comment on above: Performed By: #### M G, RENAL, URIC #### [facility] [address] [place] [address] Dr. Tyree Botello Monocytes/100 WBC (Bld) 5.2 % Normal 1.7-12.0 [facility] Comment on above: Performed By: #### M G, RENAL, URIC #### [facility] [address] [place] [address] Dr. Tyree Botello NEUT # 7.5 103/ul Critically high 1.4-6.5 [facility] Comment on above: Performed By: #### M G, RENAL, URIC #### [facility] [address] [place] [address] Dr. Tyree Botello Neutrophils/100 WBC (Bld) 63.0 % Normal 43.0-75.0 [facility] Comment on above: Performed By: #### M G, RENAL, URIC #### [facility] [address] [address] [address] Tyree Botello Platelet mean volume (Bld) [Entitic vol] 11.4 fL Normal 9.5-13.5 [facility] Comment on above: Performed By: #### M G, RENAL, URIC #### [facility] [address] [address] [address] Tyree Botello PLT 225 103/ul Normal 150-450 [facility] Comment on above: Performed By: #### M G, RENAL, URIC #### [facility] [address] [address] [address] Tyree Botello RBC 5.02 106/ul Normal 4.20-5.40 [facility] Comment on above: Performed By: #### M G, RENAL, URIC #### [facility] [address] [place] [address] Dr. Tyree Botello WBC 12.0 103/ul Critically high 4.0-11.0 [facility] Comment on above: Performed By: #### M G, RENAL, URIC #### [facility] [address] [place] [address] Dr. Tyree Botello DEPAKENE/VALPROICon 08-31-19 DEPAKENE 53.3 ug/ml Normal 50.0-100.0 [facility] Comment on above: Performed By: #### M G, RENAL, URIC #### [facility] [address] [place] [address] Dr. Tyree Botello LIPID PROFILEon 08-30-2021 CHOL-HDL RATIO NORM SEE BELOW Normal [facility] Comment on above: Result Comment: 3.3 - 4.4 LOW RISK 4.4 - 7.1 AVERAGE RISK 7.1 - 11.0 MODERATE RISK >11.0 HIGH RISK Performed By: #### M G, RENAL, URIC #### [facility] [address] [place] [address] Dr. Tyree Botello Cholesterol [Mass/Vol] 160 mg/dL Normal <=200 [facility] Comment on above: Performed By: #### M G, RENAL, URIC #### [facility] [address] [address] [address] Tyree Botello Cholesterol in HDL [Mass/Vol] 43 mg/dL Normal 40-60 [facility] Comment on above: Performed By: #### M G, RENAL, URIC #### [facility] [address] [address] [address] Tyree Botello Cholesterol in LDL [Mass/Vol] 76.0 mg/dL Normal [facility] Comment on above: Performed By: #### M G, RENAL, URIC #### [facility] [address] [address] [address] Tyree Botello Cholesterol.total/Choles terol in HDL [Mass ratio] 3.7 {ratio} Normal [facility] Comment on above: Performed By: #### M G, RENAL, URIC #### [facility] [address] [address] [address] Tyree Botello HDL NORMAL > or = 60 mg/dl - LO W CARDIOVASCULAR RISK <40 mg/dl - HIGH CARDIOVASCULAR RISK Normal [facility] Comment on above: Performed By: #### M G, RENAL, URIC #### [facility] [address] [address] [address] Tyree Botello LDL CALC NORMAL SEE BELOW Normal [facility] Comment on above: Result Comment: <100 mg/dl OPTIMAL 100 - 129 mg/dl NEAR OR ABOVE OPTIMAL 130 - 159 mg/dl BORDERLINE HIGH 160 - 189 mg/dl HIGH >190 mg/dl VERY HIGH Performed By: #### M G, RENAL, URIC #### [facility] [address] [address] [address] Tyree Botello Triglyceride [Mass/Vol] 205 mg/dL Critically high <=150 [facility] Comment on above: Performed By: #### M G, RENAL, URIC #### [facility] [address] [address] [address] Tyree Botello VLDL CALC 41.0 mg/dL Normal [facility] Comment on above: Performed By: #### M G, RENAL, URIC #### [facility] [address] [address] [address] Tyree Botello LIVER PROFILEon 08-30-2021 Albumin [Mass/Vol] 3.0 g/dL Critically low 3.4-5.0 [facility] Comment on above: Performed By: #### M G, RENAL, URIC #### [facility] [address] [address] [address] Tyree Botello Albumin/Globulin [Mass ratio] 0.8 {ratio} Normal [facility] Comment on above: Performed By: #### M G, RENAL, URIC #### [facility] [address] [address] [address] Tyree Botello ALP [Catalytic activity/Vol] 63 U/L Normal 46-116 [facility] Comment on above: Performed By: #### M G, RENAL, URIC #### [facility] [address] [place] [address] Dr. Tyree Botello ALT [Catalytic activity/Vol] 49 U/L Normal 14-59 [facility] Comment on above: Performed By: #### M G, RENAL, URIC #### [facility] [address] [place] [address] Dr. Tyree Botello AST [Catalytic activity/Vol] 23 U/L Normal 15-37 [facility] Comment on above: Performed By: #### M G, RENAL, URIC #### [facility] [address] [place] [address] Dr. Tyree Botello BILI, CONJUGATED 0.1 mg/dL Normal 0.0-0.2 [facility] Comment on above: Performed By: #### M G, RENAL, URIC #### [facility] [address] [place] [address] Dr. Tyree Botello Bilirubin [Mass/Vol] 0.4 mg/dL Normal 0.2-1.0 [facility] Comment on above: Performed By: #### M G, RENAL, URIC #### [facility] [address] [place] [address] Dr. Tyree Botello Globulin (S) [Mass/Vol] 3.7 g/dL Normal [facility] Comment on above: Performed By: #### M G, RENAL, URIC #### [facility] [address] [address] [address] Tyree Botello Protein [Mass/Vol] 6.7 g/dL Normal 6.4-8.2 [facility] Comment on above: Performed By: #### M G, RENAL, URIC #### [facility] [address] [place], [place] [id number] Dr. Tyree Botello Complete Blood Count with Au to Diffon 07-17-2021 BASOABS 97 cells/uL Normal 0-200 [facility] Comment on above: Order Comment: [facility] performed at: [employer], [employer] [facility], [address] [place] [address], [address] [place] [address], [address] [place] [address], [employer] B[employer] Operator: Senthil Ramsey MD [facility] Date/Time: [facility] Results Received Date/Time: [facility] Reported Date/Time: FASTING: UNKNOWN Performed By: #### L IPD, CMP, TSH, CBCAD #### [facility] [address] [place] [address] Basophils/100 WBC (Bld) 0.9 % Normal N [facility] Comment on above: Order Comment: [facility] performed at: [employer] [facility], [address] [place] [address], [address] [place] [address], [address] [place] [address], [employer] Operator: Senthil Ramsey MD [facility] Date/Time: [facility] Results Received Date/Time: [facility] Reported Date/Time: FASTING: UNKNOWN Performed By: #### L IPD, CMP, TSH, CBCAD #### [facility] [address] [place] [address] EOSABS 97 cells/uL Normal 15-500 [facility] Comment on above: Order Comment: [facility] performed at: [employer] [facility], [address] [place] [address], [address] [place] [address], [address] [place] [address], [employer] Operator: Senthil Ramsey MD [facility] Date/Time: [facility] Results Received Date/Time: [facility] Reported Date/Time: FASTING: UNKNOWN Performed By: #### L IPD, CMP, TSH, CBCAD #### [facility] [address] [place] [address] Eosinophils/100 WBC (Bld) 0.9 % Normal [facility] Comment on above: Order Comment: [facility] performed at: [employer], [employer] [facility], [address] [place] [address], [address] [place] [address], [address] [place] [address], [employer] Operator: Senthil Ramsey MD [facility] Date/Time: [facility] Results Received Date/Time: [facility] Reported Date/Time: FASTING: UNKNOWN Performed By: #### L IPD, CMP, TSH, CBCAD #### [facility] [address] [place] [address] Erythrocyte distribution width (RBC) [Ratio] 13.6 % Normal 11.0-15.0 [facility] Comment on above: Order Comment: [facility] performed at: [employer] [facility], [address] [place] [address], [address] [place] [address], [address] [place] [address], [employer] Operator: Senthil Ramsey MD [facility] Date/Time: [facility] Results Received Date/Time: [facility] Reported Date/Time: FASTING: UNKNOWN Performed By: #### L IPD, CMP, TSH, CBCAD #### [facility] [address] [place] [address] Hematocrit (Bld) [Volume fraction] 48.3 % High 35.0-45.0 [facility] Comment on above: Order Comment: [facility] performed at: [employer], [employer] [facility], [address] [place] [address], [address] [place] [address], [address] [place] [address], [employer] Operator: Senthil Ramsey MD [facility] Date/Time: [facility] Results Received Date/Time: [facility] Reported Date/Time: FASTING: UNKNOWN Performed By: #### L IPD, CMP, TSH, CBCAD #### [facility] [address] [place] [address] Hemoglobin (Bld) [Mass/Vol] 16.7 g/dL High 11.7-15.5 [facility] Comment on above: Order Comment: [facility] performed at: [employer], [employer] [facility], [address] [place] [address], [address] [place] [address], [phone], [employer] Operator: Senthil Ramsey MD [facility] Date/Time: [facility] Results Received Date/Time: [facility] Reported Date/Time: FASTING: UNKNOWN Performed By: #### L IPD, CMP, TSH, CBCAD #### [facility] [address] [place] [address] Lymphocytes (Bld) [#/Vol] 4.428 10*3/uL High 850-3900 [facility] Comment on above: Order Comment: [facility] performed at: [employer], [employer] [facility], [address] [place] [address], [address] [place] [address], [address] [place] [address], [employer] Operator: Senthil Ramsey MD [facility] Date/Time: [facility] Results Received Date/Time: [facility] Reported Date/Time: FASTING: UNKNOWN Performed By: #### L IPD, CMP, TSH, CBCAD #### [facility] [address] [place] [address] Lymphocytes/100 WBC (Bld) 41.0 % Normal [facility] Comment on above: Order Comment: [facility] performed at: [employer] [facility], [address] [place] [address], [address] [place] [address], [address] [place] [address], [employer] Operator: Senthil Ramsey MD [facility] Date/Time: [facility] Results Received Date/Time: [facility] Reported Date/Time: FASTING: UNKNOWN Performed By: #### L IPD, CMP, TSH, CBCAD #### [facility] [address] [place] [address] MCH (RBC) [Entitic mass] 31.0 pg Normal 27.0-33.0 [facility] Comment on above: Order Comment: [facility] performed at: [employer], [employer] [facility], [address] [place] [address], [address] [place] [address], [address] [place] [address], [employer] B[employer] Operator: Senthil Ramsey MD [facility] Date/Time: [facility] Results Received Date/Time: [facility] Reported Date/Time: FASTING: UNKNOWN Performed By: #### L IPD, CMP, TSH, CBCAD #### [facility] [address] [place] [address] MCHC (RBC) [Mass/Vol] 34.6 g/dL Normal 32.0-36.0 [facility] Comment on above: Order Comment: [facility] performed at: [employer], [employer] [facility], [address] [place] [address], [address] [place] [address], [id number], [employer] Operator: Senthil Ramsey MD [facility] Date/Time: [facility] Results Received Date/Time: [facility] Reported Date/Time: FASTING: UNKNOWN Performed By: #### L IPD, CMP, TSH, CBCAD #### [facility] [address] [place] [address] MCV (RBC) [Entitic vol] 89.6 fL Normal 80.0-100.0 [facility] Comment on above: Order Comment: [facility] performed at: [employer], [employer] [facility], [address] [place] [address], [phone], [employer] Operator: Senthil Ramsey MD [facility] Date/Time: [facility] Results Received Date/Time: [facility] Reported Date/Time: FASTING: UNKNOWN Performed By: #### L IPD, CMP, TSH, CBCAD #### [facility] [address] [place] [address] MONOABS 605 cells/uL Normal 200-950 [facility] Comment on above: Order Comment: [facility] performed at: [employer], [employer] [facility], [address] [place] [address], [address] [place] [address], [address] [place] [address], [employer] Operator: Senthil Ramsey MD [facility] Date/Time: [facility] Results Received Date/Time: [facility] Reported Date/Time: FASTING: UNKNOWN Performed By: #### L IPD, CMP, TSH, CBCAD #### [facility] [address] [place] [address] Monocytes/100 WBC (Bld) 5.6 % Normal N [facility] Comment on above: Order Comment: [facility] performed at: [employer], [employer] [facility], [address] [place] [address], [address] [place] [address], [address] [place] [address], [employer] Operator: Senthil Ramsey MD [facility] Date/Time: [facility] Results Received Date/Time: [facility] Reported Date/Time: FASTING: UNKNOWN Performed By: #### L IPD, CMP, TSH, CBCAD #### [facility] [address] [place] [address] Neutrophils (Bld) [#/Vol] 5.573 10*3/uL Normal 4950-7399 [facility] Comment on above: Order Comment: [facility] performed at: [employer], [employer] [facility], [address] [place] [address], [address] [place] [address], [address] [place] [address], [employer] B[employer] Operator: Senthil Ramsey MD [facility] Date/Time: [facility] Results Received Date/Time: [facility] Reported Date/Time: FASTING: UNKNOWN Performed By: #### L IPD, CMP, TSH, CBCAD #### [facility] [address] [place] [address] Neutrophils/100 WBC (Bld) 51.6 % Normal [facility] Comment on above: Order Comment: [facility] performed at: [employer], [employer] [facility], [address] [facility], [address] [place] [address], [address] [place] [address], [employer] B[employer] Operator: Senthil Ramsey MD [facility] Date/Time: [facility] Results Received Date/Time: [facility] Reported Date/Time: FASTING: UNKNOWN Performed By: #### L IPD, CMP, TSH, CBCAD #### [facility] [address] [place] [address] Platelet mean volume (Bld) [Entitic vol] 11.4 fL Normal 7.5-12.5 [facility] Comment on above: Order Comment: [facility] performed at: [employer], [employer] [facility], [facility], [address] [place] [address], [address] [place] [address], [employer] B[employer] Operator: Senthil Ramsey MD [facility] Date/Time: [facility] Results Received Date/Time: [facility] Reported Date/Time: FASTING: UNKNOWN Performed By: #### L IPD, CMP, TSH, CBCAD #### [facility] [address] [place] [address] Platelets (Bld) [#/Vol] 239 10*3/uL Normal 140-400 [facility] Comment on above: Order Comment: [facility] performed at: [employer] [facility], [address] [place] [address], [address] [place] [address], [address] [place] [address], [employer] Operator: Senthil Ramsey MD [facility] Date/Time: [facility] Results Received Date/Time: [facility] Reported Date/Time: FASTING: UNKNOWN Performed By: #### L IPD, CMP, TSH, CBCAD #### [facility] [address] [place] [address] RBC (Bld) [#/Vol] 5.39 10*6/uL High 3.80-5.10 [facility] Comment on above: Order Comment: [facility] performed at: [employer] [facility], [address] [place] [address], [address] [place] [address], [address] [place] [address], [employer] Operator: Senthil Ramsey MD [facility] Date/Time: [facility] Results Received Date/Time: [facility] Reported Date/Time: FASTING: UNKNOWN Performed By: #### L IPD, CMP, TSH, CBCAD #### [facility] [address] [place] [address] WBC (Bld) [#/Vol] 10.8 10*3/uL Normal 3.8-10.8 [facility] Comment on above: Order Comment: [facility] performed at: [employer], [employer] [facility], [address] [place] [address], [address] [place] [address], [address] [place] [address], [employer] Operator: Senthil Ramsey MD [facility] Date/Time: [facility] Results Received Date/Time: [facility] Reported Date/Time: FASTING: UNKNOWN Performed By: #### L IPD, CMP, TSH, CBCAD #### [facility] [address] [place] [address] [facility] 07-17-2021 Albumin [Mass/Vol] 4.2 g/dL Normal 3.6-5.1 [facility] Comment on above: Order Comment: [facility] performed at: [employer], [employer] [facility], [address] [place] [address], [address] [place] [address], [address] [place] [address], [employer] Operator: Senthil Ramsey MD [facility] Date/Time: [facility] Results Received Date/Time: [facility] Reported Date/Time: FASTING: UNKNOWN Performed By: #### L IPD, CMP, TSH, CBCAD #### [facility] [address] [place] [address] Albumin/Globulin [Mass ratio] 1.4 {ratio} Normal 1.0-2.5 [facility] Comment on above: Order Comment: [facility] performed at: [employer], [employer] [facility] [place], [address] [place] [address], [address] [place] [address], [address] [place] [address], Power Bender Operator: Senthil Ramsey MD [facility] Collection Date/Time: [facility] Results Received Date/Time: [facility] Reported Date/Time: FASTING: UNKNOWN Performed By: #### L IPD, CMP, TSH, CBCAD #### [facility] Default [address] [place] [address] ALP [Catalytic activity/Vol] 65 U/L Normal 31-125 [facility] Specialist Comment on above: Order Comment: [facility] Testing performed at: [facility] [facility], [employer] [facility] [place], [address] [place] [address], [address] [place] [address], [address] [place] [address], Power Bender Operator: Senthil Ramsey MD [facility] Collection Date/Time: [facility] Results Received Date/Time: [facility] Reported Date/Time: FASTING: UNKNOWN Performed By: #### L IPD, CMP, TSH, CBCAD #### [facility] Default [address] [place] [address] ALT [Catalytic activity/Vol] 30 U/L High 6-29 [facility] Specialist Comment on above: Order Comment: [facility] Testing performed at: [employer], [employer] [facility] [place], [address] [place] [address], [address] [place] [address], [address] [place] [address], Power Bender Operator: Senthil Ramsey MD [facility] Collection Date/Time: [facility] Results Received Date/Time: [facility] Reported Date/Time: FASTING: UNKNOWN Performed By: #### L IPD, CMP, TSH, CBCAD #### [facility] Default [address] [place] [address] Anion gap [Moles/Vol] 20 mmol/L Normal 12-20 [facility] Comment on above: Order Comment: [facility] Testing performed at: [employer], [employer] [facility] [place], [address] [place] [address], [address] [place] [address], [address] [place] [address], Power Bender Operator: Senthil Ramsey MD [facility] Collection Date/Time: [facility] Results Received Date/Time: [facility] Reported Date/Time: FASTING: UNKNOWN Result Comment: Effe ctive 03/16/2019 reference range changed. Performed By: #### L IPD, CMP, TSH, CBCAD #### [facility] Default [address] [place] [address] AST [Catalytic activity/Vol] 15 U/L Normal 10-35 [facility] Record Label Internship Comment on above: Order Comment: [facility] Testing performed at: [employer] [facility] [place], [address] [place] [address], [address] [place] [address], [address] [place] [address], Power Bender Operator: Senthil Ramsey MD [facility] Collection Date/Time: [facility] Results Received Date/Time: [facility] Reported Date/Time: FASTING: UNKNOWN Performed By: #### L IPD, CMP, TSH, CBCAD #### [facility] Default [address] [place] [address] Bilirubin [Mass/Vol] 0.4 mg/dL Normal 0.2-1.2 [facility] Specialist Comment on above: Order Comment: [facility] Testing performed at: [employer] [facility] [place], [address] [place] [address], [address] [place] [address], [address] [place] [address], Power Bender Operator: Senthil Ramsey MD [facility] Collection Date/Time: [facility] Results Received Date/Time: [facility] Reported Date/Time: FASTING: UNKNOWN Performed By: #### L IPD, CMP, TSH, CBCAD #### [facility] Default [address] [place] [address] BUN/CREA 24 NOT APPLICABLE Normal 6-22 [facility] Record Label Internship Comment on above: Order Comment: [facility] Testing performed at: [employer] [facility] [place], [address] [place] [address], [address] [place] [address], [address] [place] [address], Power Bender Operator: Senthil Ramsey MD [facility] Collection Date/Time: [facility] Results Received Date/Time: [facility] Reported Date/Time: FASTING: UNKNOWN Performed By: #### L IPD, CMP, TSH, CBCAD #### [facility] Default [address] [place] [address] Calcium [Mass/Vol] 10.2 mg/dL Normal 8.6-10.2 [facility] Specialist Comment on above: Order Comment: [facility] Testing performed at: [employer], [employer] [facility] [place], [address] [facility], [address] [place] [address], [address] [place] [address], Power Bender Operator: Senthil Ramsey MD [facility] Collection Date/Time: [facility] Results Received Date/Time: [facility] Reported Date/Time: FASTING: UNKNOWN Performed By: #### L IPD, CMP, TSH, CBCAD #### [facility] Default [address] [place] [address] Chloride [Moles/Vol] 103 mmol/L Normal 98-110 [facility] Specialist Comment on above: Order Comment: [facility] Testing performed at: [employer], [employer] [facility] [place], [address] [place] [address], [address] [place] [address], [address] [place] [address], Power Bender Operator: Senthil Ramsey MD [facility] Collection Date/Time: [facility] Results Received Date/Time: [facility] Reported Date/Time: FASTING: UNKNOWN Performed By: #### L IPD, CMP, TSH, CBCAD #### [facility] Default [address] [place] [address] CO2 [Moles/Vol] 22 mmol/L Normal 20-32 [facility] Specialist Comment on above: Order Comment: [facility] Testing performed at: [employer], [employer] [facility] [place], [address] [place] [address], [address] [place] [address], [address] [place] [address], Power Bender Operator: Senthil Ramsey MD [facility] Collection Date/Time: [facility] Results Received Date/Time: [facility] Reported Date/Time: FASTING: UNKNOWN Performed By: #### L IPD, CMP, TSH, CBCAD #### [facility] Default [address] [place] [address] Creatinine [Mass/Vol] 0.75 mg/dL Normal 0.50-1.10 [facility] Specialist Comment on above: Order Comment: [facility] Testing performed at: [employer], [employer] [facility] [place], [address] [place] [address], [address] [place] [address], [address] [place] [address], Power Bender Operator: Senthil Ramsey MD [facility] Collection Date/Time: [facility] Results Received Date/Time: [facility] Reported Date/Time: FASTING: UNKNOWN Performed By: #### L IPD, CMP, TSH, CBCAD #### [facility] Default [address] [place] [address] eGFRAA (Quest) 108 mL/min/1.73m2 Normal > OR = 60 [facility] Record Label Internship Comment on above: Order Comment: [facility] Testing performed at: [employer], [employer] [facility] [place], [address] [facility], [address] [place] [address], [address] [place] [address], Power Bender Operator: Senthil Ramsey MD [facility] Collection Date/Time: [facility] Results Received Date/Time: [facility] Reported Date/Time: FASTING: UNKNOWN Performed By: #### L IPD, CMP, TSH, CBCAD #### [facility] Default [address] [place] [address] eGFRNAA (Quest) 94 mL/min/1.73m2 Normal > OR = 60 [facility] Record Label Internship Comment on above: Order Comment: [facility] Testing performed at: [employer] [facility] [place], [address] [place] [address], [address] [place] [address], [address] [place] [address], Power Bender Operator: Senthil Ramsey MD [facility] Collection Date/Time: [facility] Results Received Date/Time: [facility] Reported Date/Time: FASTING: UNKNOWN Performed By: #### L IPD, CMP, TSH, CBCAD #### [facility] Default [address] [place] [address] Globulin (S) [Mass/Vol] 3.0 g/dL Normal 1.9-3.7 [facility] Record Label Internship Comment on above: Order Comment: [facility] Testing performed at: [employer] [facility] [place], [address] [facility], [address] [place] [address], [address] [place] [address], Power Bender Operator: Senthil Ramsey MD [facility] Collection Date/Time: [facility] Results Received Date/Time: [facility] Reported Date/Time: FASTING: UNKNOWN Performed By: #### L IPD, CMP, TSH, CBCAD #### [facility] Default [address] [place] [address] Glucose [Mass/Vol] 132 mg/dL High 65-99 [facility] Record Label Internship Comment on above: Order Comment: [facility] Testing performed at: [employer], [employer] [facility] [place], [address] [place] [address], [address] [place] [address], [address] [place] [address], Power Bender Operator: Senthil Ramsey MD [facility] Collection Date/Time: [facility] Results Received Date/Time: [facility] Reported Date/Time: FASTING: UNKNOWN Result Comment: Fasting reference interval For someone without known diabetes, a glucose value >125 mg/dL indicates that they may have diabetes and this should be confirmed with a follow-up test. Performed By: #### L IPD, CMP, TSH, CBCAD #### [facility] Default [address] [place] [address] Potassium [Moles/Vol] 3.9 mmol/L Normal 3.5-5.3 [facility] [place] Record Label Internship Comment on above: Order Comment: [facility] Testing performed at: [employer], [employer] [facility] [place], [address] [place] [address], [address] [place] [address], [address] [place] [address], Power Bender Operator: Senthil Ramsey MD [facility] Collection Date/Time: [facility] Results Received Date/Time: [facility] Reported Date/Time: FASTING: UNKNOWN Performed By: #### L IPD, CMP, TSH, CBCAD #### [facility] Default [address] [place] [address] Protein [Mass/Vol] 7.2 g/dL Normal 6.1-8.1 L[facility]ll [place]anches [place] Record Label Internship Comment on above: Order Comment: [facility] Testing performed at: [employer], [employer] [facility] [place], [address] [place] [address], [address] [place] [address], [address] [place] [address], Power Bender Operator: Senthil Ramsey MD [facility] Collection Date/Time: [facility] Results Received Date/Time: [facility] Reported Date/Time: FASTING: UNKNOWN Performed By: #### L IPD, CMP, TSH, CBCAD #### [facility] Default [address] [place] [address] Sodium [Moles/Vol] 141 mmol/L Normal 135-146 [facility] Specialist Comment on above: Order Comment: [facility] Testing performed at: [employer], [employer] [facility] [place], [address] [facility], [address] [place] [address], [phone], Power Bender Operator: Senthil Ramsey MD [facility] Collection Date/Time: [facility] Results Received Date/Time: [facility] Reported Date/Time: FASTING: UNKNOWN Performed By: #### L IPD, CMP, TSH, CBCAD #### [facility] Default [address] [place] [address] Urea nitrogen [Mass/Vol] 18 mg/dL Normal 7-25 [facility] Specialist Comment on above: Order Comment: [facility] Testing performed at: [employer] [facility] [place], [address] [place] [address], [address] [place] [address], [phone], Power Bender Operator: Senhtil Ramsey MD [facility] Collection Date/Time: [facility] Results Received Date/Time: [facility] Reported Date/Time: FASTING: UNKNOWN Performed By: #### L IPD, CMP, TSH, CBCAD #### [facility] Default [address] [place] [address] Lipid Panelon 07-17-2021 Cholesterol [Mass/Vol] 306 mg/dL High <200 No rthern [place] Record Label Internship Comment on above: Order Comment: [facility] Testing performed at: [employer] [facility] [place], [address] [place] [address], [address] [place] [address], [phone], Power Bender Operator: Senthil Ramsey MD [facility] Collection Date/Time: [facility] Results Received Date/Time: [facility] Reported Date/Time: FASTING: UNKNOWN Performed By: #### L IPD, CMP, TSH, CBCAD #### [facility] Default [address] [place] [address] Cholesterol in HDL [Mass/Vol] 49 mg/dL Low > OR = 50 [facility] Record Label Internship Comment on above: Order Comment: [facility] Testing performed at: [employer], [employer] [facility] [place], [address] [place] [address], [address] [place] [address], [address] [place] [address], Power Bender Operator: Senthil Ramsey MD [facility] Collection Date/Time: [facility] Results Received Date/Time: [facility] Reported Date/Time: FASTING: UNKNOWN Performed By: #### L IPD, CMP, TSH, CBCAD #### [facility] Default [address] [place] [address] LDLD SEE NOTE Normal [facility] Record Label Internship Comment on above: Order Comment: [facility] Testing performed at: [employer], [employer] [facility] [place], [address] [place] [address], [address] [place] [address], [phone], Power Bender Operator: Senthil Ramsey MD [facility] Collection Date/Time: Quest [...] LDL-C. Nabil RICO et al. CHRISTIN. 2013;310(19): 9388-3171 ([email or web address]) Performed By: #### L IPD, CMP, TSH, CBCAD #### [facility] Default [address] [place] [address] NON HDL CHOLESTEROL 257 mg/dL (calc) High <130 [place] Record Label Internship Comment on above: Order Comment: [facility] Testing performed at: [employer] [facility] [place], [address] [facility], [address] [place] [address], [phone], Power Bender Operator: Senthil Ramsey MD [facility] Collection Date/Time: Quest [...] TSH, CBCAD #### [facility] Default [address] [place] [address] Triglyceride [Mass/Vol] 403 mg/dL High <150 [facility] Comment on above: Order Comment: [facility] Testing performed at: [employer] [facility] [place], [address] [facility], [address] [place] [address], [phone], Power Bender Operator: Senthil Ramsey MD [facility] Collection Date/Time: [facility] Results Received Date/Time: [facility] Reported Date/Time: FASTING: UNKNOWN Result Comment: If a non-fasting specimen was collected, consider repeat triglyceride testing on a fasting specimen if clinically indicated. Leonie et al. J. of Clin. Lipidol. 2015;9:129-169. Performed By: #### L IPD, CMP, TSH, CBCAD #### [facility] Default [address] [place] [address] TSHon 07-17-2021 TSH Qn 0.95 m[IU]/L Normal [facility] Comment on above: Order Comment: [facility] Testing performed at: [employer], [employer] [facility] [place], [address] , [address] [place] [address], [phone], Power Bender Operator: Senthil Ramsey MD [facility] Collection Date/Time: [facility] Results Received Date/Time: [facility] Reported Date/Time: [id number] FASTING: UNKNOWN Result Comment: Refe rence Range > or = 20 Years 0.40-4.50 Ranges First trimester 0.26-2.66 Second trimester 0.55-2.73 Third trimester 0.43-2.91 Performed By: #### L IPD, CMP, TSH, CBCAD #### [facility] Default [address] [place] [address] XR Spine Lumbar Complete w/F levi AND [place] 05-25-2021 XR Spine Lumbar Complete w/Flex AND [...] by Rich Soriano on 05/26/2021 0756 Normal [facility] Specialist Laboratory - Hematology and Cell countson 07-22-2020 Nucleated RBC/100 WBC (Bld) [Ratio] 0.2 % 0-0.5 [facility] Vital Signs Date Time Vital Sign Value Performing Clinician Facility 12-11-2023 13:31-0400 Body height 162.6 cm [employer] PA-C Work Phone: [employer] 12-11-2023 13:31-0400 Body mass index (BMI) [Ratio] 34.16 kg/m2 Fusebillff PA-C Work Phone: [employer] 12-11-2023 13:31-0400 Body weight 90.27 kg F[employer]ebillff PA-C Work Phone: [employer] 12-11-2023 13:31-0400 Diastolic blood pressure 92 mm[Hg] [employer] PA-C Work Phone: [employer] 12-11-2023 13:31-0400 Heart rate 83 /min Live Adamsff PA-C Work Phone: [facility] 12-11-2023 13:31-0400 SaO2% (BldA) [Mass fraction] 97 % Live Adamsff PA-C Work Phone: [facility] 12-11-2023 13:31-0400 Systolic blood pressure 152 mm[Hg] Live Adamsff PA-C Work Phone: [facility] 11-21-2023 14:29-0400 Body height 165.1 cm DSP ENGINEERGunnar Chavez Work Phone: [facility] 11-21-2023 14:29-0400 Body mass index (BMI) [Ratio] 33.4 kg/m2 DSP ENGINEERGunnar Chavez Work Phone: [facility] 11-21-2023 14:29-0400 Body temperature 97.4 [degF] TAMMIE Chavez Work Phone: [facility] 11-21-2023 14:29-0400 Body weight 91.17 kg DSP ENGINEERGunnar Chavez Work Phone: [facility] 11-21-2023 14:29-0400 Diastolic blood pressure 99 mm[Hg] TAMMIE Chavez Work Phone: [facility] 11-21-2023 14:29-0400 Heart rate 109 /min TAMMIE Chavez Work Phone: [facility] 11-21-2023 14:29-0400 Respiratory rate 16 /min ATMMIE Chavez Work Phone: [facility] 11-21-2023 14:29-0400 SaO2% (BldA) [Mass fraction] 98 % TAMMIE Chavez Work Phone: [facility] 11-21-2023 14:29-0400 Systolic blood pressure 167 mm[Hg] TAMMIE Chavez Work Phone: [facility] 10-01-2023 14:45-0400 Body height 165.1 cm TAMMIE Chavez Work Phone: [facility] 10-01-2023 14:45-0400 Body mass index (BMI) [Ratio] 34 kg/m2 TAMMIE Chavez Work Phone: [facility] 10-01-2023 14:45-0400 Body weight 92.64 kg TAMMIE Chavez Work Phone: [facility] 06-12-2023 10:56-0400 Body mass index (BMI) [Ratio] 33.81 kg/m2 Live Verhoff PA-C Work Phone: [facility] [employer] [facility] 06-12-2023 10:56-0400 Body weight 89.36 kg Live Verhoff PA-C Work Phone: [facility] [employer] [facility] 06-12-2023 10:56-0400 Diastolic blood pressure 75 mm[Hg] Live Verhoff PA-C Work Phone: [employer] 06-12-2023 10:56-0400 Heart rate 90 /min Live Verhoff PA-C Work Phone: [facility] 06-12-2023 10:56-0400 Respiratory rate 18 /min Live Verhoff PA-C Work Phone: [facility] 06-12-2023 10:56-0400 SaO2% (BldA) [Mass fraction] 97 % Live Verhoff PA-C Work Phone: [facility] 06-12-2023 10:56-0400 Systolic blood pressure 152 mm[Hg] Live Verhoff PA-C Work Phone: [facility] [employer] [facility] 04-25-2023 14:26-0500 Body height 165.1 cm [facility] 04-25-2023 14:26-0500 Body mass index (BMI) [Ratio] 34 kg/m2 [facility] 04-25-2023 14:26-0500 Body temperature 97.2 [degF] [facility] 04-25-2023 14:26050 Body weight 92.7 kg [facility] 04-25-2023 14:26-050 Diastolic blood pressure 70 mm[Hg] [facility] 04-25-2023 14:26-0500 Heart rate 102 /min [facility] 04-25-2023 14:260500 Respiratory rate 16 /min [facility] 04-25-2023 14:26-0500 SaO2% (BldA) [Mass fraction] 97 % [facility] 04-25-2023 14:26-0500 Systolic blood pressure 139 mm[Hg] [facility] 04-11-2023 14:14-0500 Body height 165.1 cm Eliazar Pires DPM Work Phone: [facility] 04-11-2023 14:14-0500 Body mass index (BMI) [Ratio] 33.45 kg/m2 Eliazar Pires DPM Work Phone: [facility] 04-11-2023 14:14-0500 Body weight 91.17 kg Eliazar Pires DPM Work Phone: [facility] 04-11-2023 14:14-0500 Diastolic blood pressure 80 mm[Hg] Eliazar Pires DPM Work Phone: [facility] 04-11-2023 14:14-0500 Heart rate 82 /min Eliazar Pires DPM Work Phone: [facility] 04-11-2023 14:14-0500 Systolic blood pressure 130 mm[Hg] Eliazar Pires DPM Work Phone: [facility] 03-15-2023 12:54-0500 Body height 162.6 cm Dennis Foster MD Work Phone: [facility] 03-15-2023 12:54-0500 Body mass index (BMI) [Ratio] 35.7 kg/m2 Dennis Foster MD Work Phone: [employer] 03-15-2023 12:54-0500 Body weight 94.35 kg Dennis Foster MD Work Phone: [employer] 03-15-2023 12:54-0500 Diastolic blood pressure 80 mm[Hg] Dennis Foster MD Work Phone: [employer] 03-15-2023 12:54-0500 Heart rate 81 /min Dennis Foster MD Work Phone: [employer] 03-15-2023 12:54-0500 SaO2% (BldA) [Mass fraction] 98 % Dennis Foster MD Work Phone: [employer] 03-15-2023 12:54-0500 Systolic blood pressure 140 mm[Hg] Dennis Foster MD Work Phone: [employer] 10-18-2022 15:00-0400 Body height 165.1 cm Nir Danis Other [employer] Other 10-18-2022 15:00-0400 Body mass index (BMI) [Ratio] 33.08 kg/m2 Nir Danis Other [employer] Other 10-18-2022 15:00-0400 Body temperature 97.1 [degF] Nir Danis Other [employer] Other 10-18-2022 15:00-0400 Body weight 90.18 kg Nir Danis Other [employer] Other 10-18-2022 15:00-0400 Diastolic blood pressure 98 mm[Hg] Nir Danis Other [employer] Other 10-18-2022 15:00-0400 Respiratory rate 18 /min Nir Danis Other [employer] Other 10-18-2022 15:00-0400 SaO2% (BldA) [Mass fraction] 98 % Nir Danis Other [employer] Other 10-18-2022 15:00-0400 Systolic blood pressure 167 mm[Hg] Nir Danis Other [employer] Other 07-12-2022 14:00-0400 Diastolic blood pressure 94 mm[Hg] MD Kala Lloyd Work Phone: [facility] 07-12-2022 14:00-0400 Heart rate 86 /min MD Kala Lloyd Work Phone: [facility] 07-12-2022 14:00-0400 Respiratory rate 16 /min MD Kala Lloyd Work Phone: [facility] 07-12-2022 14:00-0400 SaO2% (BldA) [Mass fraction] 99 % MD Kala Lloyd Work Phone: [facility] 07-12-2022 14:00-0400 Systolic blood pressure 165 mm[Hg] MD Kala Lloyd Work Phone: [facility] 07-12-2022 11:44-0400 Body height 162.56 cm MD Kala Lloyd Work Phone: [facility] 07-12-2022 11:44-0400 Body temperature 98.6 [degF] MD Kala Lloyd Work Phone: [facility] 07-12-2022 11:44-0400 Body weight 94.34 kg MD Kala Lloyd Work Phone: [facility] 06-04-2022 14:15-0400 Body height 165.1 cm Imad Asaad Other [employer] Other 06-04-2022 14:15-0400 Body mass index (BMI) [Ratio] 32.95 kg/m2 Imad Asaad Other [employer] Other 06-04-2022 14:15-0400 Body weight 89.81 kg Imad Asaad Other [employer] Other 06-04-2022 14:15-0400 Diastolic blood pressure 90 mm[Hg] Imad Asaad Other [employer] Other 06-04-2022 14:15-0400 Systolic blood pressure 145 mm[Hg] Imad Asaad Other [employer] Other 05-18-2022 11:46-0500 Body temperature 97.8 [degF] MD Kala Lloyd Work Phone: [facility] 05-18-2022 11:46-0500 Body weight 89.4 kg MD Kala Lloyd Work Phone: [facility] 05-18-2022 11:46-0500 Diastolic blood pressure 86 mm[Hg] MD Kala Lloyd Work Phone: [facility] 05-18-2022 11:46-0500 Heart rate 94 /min MD Kala Lloyd Work Phone: [facility] 05-18-2022 11:46-0500 Respiratory rate 16 /min MD Kala Lloyd Work Phone: [facility] 05-18-2022 11:46-0500 SaO2% (BldA) [Mass fraction] 98 % MD Kala Lloyd Work Phone: [facility] 05-18-2022 11:46-0500 Systolic blood pressure 149 mm[Hg] MD Kala Lloyd Work Phone: [facility] 04-12-2022 12:40-0500 Body height 165.1 cm Nir Danis Other [employer] Other 04-12-2022 12:40-0500 Body mass index (BMI) [Ratio] 32.85 kg/m2 Nir Danis Other [employer] Other 04-12-2022 12:40-0500 Body temperature 96.7 [degF] Nir Danis Other [employer] Other 04-12-2022 12:40-0500 Body weight 89.54 kg Nir Danis Other [employer] Other 04-12-2022 12:40-0500 Diastolic blood pressure 84 mm[Hg] Nir Danis Other [employer] Other 04-12-2022 12:40-0500 Respiratory rate 18 /min Nir Danis Other [employer] Other 04-12-2022 12:40-0500 SaO2% (BldA) [Mass fraction] 97 % Nir Danis Other [employer] Other 04-12-2022 12:40-0500 Systolic blood pressure 139 mm[Hg] Nir Danis Other [employer] Other 09-14-2021 13:00-0400 Body height 165.1 cm Nir Danis Other [employer] Other 09-14-2021 13:00-0400 Body mass index (BMI) [Ratio] 34.44 kg/m2 Nir Danis Other [employer] Other 09-14-2021 13:00-0400 Body temperature 96.6 [degF] Nir Danis Other [employer] Other 09-14-2021 13:00-0400 Body weight 93.9 kg Nir Danis Other [employer] Other 09-14-2021 13:00-0400 Diastolic blood pressure 80 mm[Hg] Nir Danis Other [employer] Other 09-14-2021 13:00-0400 Respiratory rate 18 /min Nir Danis Other [employer] Other 09-14-2021 13:00-0400 SaO2% (BldA) [Mass fraction] 97 % Nir Danis Other [employer] Other 09-14-2021 13:00-0400 Systolic blood pressure 132 mm[Hg] Nir Danis Other [employer] Other 04-22-2020 14:49-0500 Body height 165.1 cm MD Kala Lloyd Work Phone: [facility] Encounters Encounter Date Encounter Type Care Provider Facility Start: 12-23-2023 End: 12-23-2023 ambulatory LINDY VALENTINO Not Available Start: 12-11-2023 End: 12-11-2023 ambulatory LIVE KWON [facility] Start: 12-11-2023 End: 12-11-2023 Office outpatient visit 25 minutes Live Kwon PA-C Work Phone: [facility] Comment on above: Lumbar spondylosis ( Primary Dx); Disorder of sacrum; Spinal stenosis of lumbar region with neurogenic claudication Start: 12-02-2023 End: 12-02-2023 ambulatory LINDY K JAS Not Available Start: 11-23-2023 End: 11-23-[address] BARBOUR [facility] Start: 11-22-2023 End: 11-22-2023 ambulatory [facility] Start: 11-22-2023 End: 11-22-2023 ambulatory [facility] Start: 11-21-2023 End: 11-21-2023 ambulatory TAMMIE Chavez Work Phone: [facility] Work Phone: Start: 11-21-2023 End: 11-21-2023 Patient encounter procedure TAMMIE Chavez Work Phone: [facility] Jean Work Phone: Start: 11-13-2023 Non-patient / Non-visit TAMMIE Chavez Work Phone: [facility] Work Phone: Start: 11-12-2023 ambulatory LIVE N [facility] Start: 11-07-2023 End: 11-07-2023 ambulatory ELIAZAR PIRES Not Available Start: 11-04-2023 End: 11-04-2023 ambulatory LINDY DHILLONRO Not Available Start: 10-29-2023 Registered Recurring TAMMIE Chavez Work Phone: [facility] Start: 10-24-2023 End: 11-10-2023 ambulatory LIVE N [facility] Start: 10-23-2023 End: 10-23-2023 ambulatory LIVE N [facility] Start: 10-21-2023 End: 10-21-2023 ambulatory LAVERNE PORTER Not Available Start: 10-21-2023 End: 10-21-2023 ambulatory RALPH OJEDA Not Available Start: 10-01-2023 End: 10-01-2023 ambulatory TAMMIE Chavez Work Phone: [facility] Work Phone: Start: 10-01-2023 End: 10-01-2023 Patient encounter procedure TAMMIE Chavez Work Phone: [facility] Work Phone: Start: 09-30-2023 End: 09-30-2023 Patient encounter procedure TAMMIE Chavez Work Phone: [facility] [place] Work Phone: Start: 09-30-2023 End: 09-30-2023 ambulatory TAMMIE Chavez Work Phone: [facility] Work Phone: Start: 09-28-2023 End: 09-28-2023 ambulatory SYEDA Ugalde HUI [facility] Start: 09-27-2023 End: 09-27-2023 ambulatory [facility] Start: 09-24-2023 Registered Recurring TAMMIE Chavez Work Phone: [facility] Start: 09-03-2023 End: 09-03-2023 ambulatory LINDY VALENTINO Not Available Start: 08-29-2023 End: 08-29-2023 ambulatory ELIAZAR PIRES Not Available Start: 08-23-2023 End: 08-23-2023 ambulatory [facility] Start: 08-12-2023 End: 08-12-2023 ambulatory LINDY CORMIERDARO Not Available Start: 08-10-2023 End: 08-10-2023 ambulatory JOB Tatyana CLINTON [facility] Start: 08-09-2023 End: 08-09-2023 ambulatory [facility] Start: 07-24-2023 End: 07-24-2023 ambulatory LINDY CORMIERDARO Not Available Start: 07-02-2023 End: 07-02-2023 ambulatory LAVERNE PORTER Not Available Start: 07-01-2023 End: 07-01-2023 ambulatory KALA LLOYD Not Available Start: 06-28-2023 End: 06-28-2023 ambulatory [facility] Beti [facility] Start: 06-21-2023 End: 06-21-2023 Emergency department patient visit KAYLIE R SCOTT [facility] Start: 06-20-2023 End: 06-20-2023 ambulatory ELIAZAR PIRES Not Available Start: 06-12-2023 End: 06-12-2023 Office outpatient visit 25 minutes Live Kwon PA-C Work Phone: [facility] Comment on above: Lumbar spondylosis ( Primary Dx) Start: 06-12-2023 End: 06-12-2023 ambulatory LIVE KWON [facility] Start: 05-18-2023 End: 05-18-[address] Ugalde ANGLE [facility] Start: 05-17-2023 End: 05-17-2023 ambulatory [facility] Beti [facility] Start: 04-26-2023 Telephone encounter Gabriella Wong RN [facility] Comment on above: Surgical Or Dental C learance Start: 04-25-2023 End: 04-25-2023 ambulatory [facility] Work Phone: Start: 04-25-2023 End: 04-25-2023 Patient encounter procedure [facility] Nephrology Jean Work Phone: Start: 04-22-2023 End: 04-22-2023 ambulatory KAYLIE CHAVEZ Not Available Start: 04-16-2023 Registered Recurring DSP ENGINEER Bakari Chavez Work Phone: [facility] Start: 04-15-2023 Chart abstracting Lindy Valentino [facility] Work Phone: [facility] Start: 04-15-2023 End: 04-15-2023 ambulatory LINDY VALENTINO Not Available Start: 04-11-2023 End: 04-11-2023 ambulatory ELIAZAR PIRES Not Available Start: 04-11-2023 End: 04-11-2023 Office outpatient visit 15 minutes Eliazar Pires DPM Work Phone: [facility] Comment on above: Metatarsalgia, left foot (Primary Dx); Diabetes 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 polyneuropathy, with long-term current use of insulin ([facility]); Onychomycosis; Toe pain, right; Toe pain, left Start: 04-05-2023 End: 04-05-2023 ambulatory KALA LLOYD Not Available Start: 04-02-2023 End: 04-02-2023 ambulatory LAVERNE Nova [place] Not Available Start: 04-01-2023 End: 04-01-2023 ambulatory [facility] Start: 04-01-2023 End: 04-01-2023 [facility] Start: 03-29-2023 End: 03-29-2023 ambulatory [facility] Start: 03-29-2023 End: 04-01-2023 ambulatory [facility] Start: 03-28-2023 Telephone encounter Don Taylor RN [facility] Comment on above: Direct LDL Start: 03-27-2023 End: 04-11-2023 ambulatory [facility] Start: 03-26-2023 Telephone encounter Louise Judge [facility] Start: 03-15-2023 End: 03-15-2023 ambulatory BRANDON LAUGHLIN Not Available Start: 03-15-2023 End: 03-15-2023 Office outpatient visit 25 minutes Dennis Foster MD Work Phone: [facility] Comment on above: Chest pain, unspecif ied type (Primary Dx); Primary hypertension; Familial hypercholesterolemia; Abnormal EKG Start: 03-15-2023 End: 03-15-2023 ambulatory [facility] Start: 03-14-2023 Telephone encounter Ramila Jones CMA [facility] Start: 02-27-2023 End: 02-27-2023 ambulatory LIVE KWON [facility] Start: 02-20-2023 End: 02-20-2023 ambulatory LINDY Naik JAS Not Available Start: 02-14-2023 End: 02-14-2023 ambulatory ELIAZAR PIRES Not Available Start: 02-06-2023 End: 02-06-2023 ambulatory LINDY VALENTINO Not Available Start: 01-28-2023 End: 01-28-2023 ambulatory BRANDON LAUGHLIN Not Available Start: 01-21-2023 End: 01-21-2023 ambulatory KAYLIE CHAVEZ Not Available Start: 10-18-2022 End: 10-18-2022 ambulatory Nir Danis Other [place] [employer] Other Start: 10-18-2022 Office outpatient visit 25 minutes Nir Danis [facility] Start: 08-09-2022 End: 08-09-2022 ambulatory MD Kala Lloyd Work Phone: [facility] Work Phone: Start: 08-09-2022 End: 08-09-2022 Patient encounter procedure MD Kala Lloyd Work Phone: [facility] Work Phone: Start: 07-25-2022 End: 07-25-2022 Patient encounter procedure MD Kala Lloyd Work Phone: [facility]-CT Scan [facility] [place] Work Phone: Start: 07-23-2022 End: 07-23-2022 ambulatory MD Kala Lloyd Work Phone: [facility] Work Phone: Start: 07-23-2022 End: 07-23-2022 Patient encounter procedure MD Kala Lloyd Work Phone: [facility]Nuc Med [facility] [place] Work Phone: Start: 07-18-2022 Telephone encounter Nir Danis [facility] Start: 07-18-2022 End: 07-19-2022 ambulatory NIR DANIS [facility] [place] Other Start: 07-12-2022 End: 07-12-2022 Admission to same day surgery center MD Kala Lloyd Work Phone: [facility] Work Phone: Start: 07-12-2022 End: 07-12-2022 ambulatory MD Kala Lloyd Work Phone: [facility] Work Phone: Start: 07-10-2022 Registered Recurring MD Kala tam Work Phone: [facility] Start: 07-02-2022 End: 07-03-2022 ambulatory NIR DANIS Facility: Start: 06-04-2022 End: 06-04-2022 ambulatory Imad Asaad Other [place] [employer] Other Start: 06-04-2022 Office outpatient ne w 45 minutes Imad Asaad [facility] Start: 05-18-2022 End: 05-18-2022 ambulatory MD Kala Lloyd Work Phone: [facility] Work Phone: Start: 05-18-2022 End: 05-18-2022 Registered Recurring MD Kala Lloyd Work Phone: [facility] Work Phone: Start: 04-12-2022 End: 04-13-2022 ambulatory NIR DANIS [facility] [place] Other Start: 04-12-2022 Office outpatient visit 25 minutes Nir Danis [facility] Jean Start: 04-05-2022 End: 04-06-2022 ambulatory NIR DANIS Facility: Start: 02-07-2022 End: 02-08-2022 ambulatory Eliazar Pires Facility:[facility] Start: 02-07-2022 End: 02-07-2022 Lab Drop off Eliazar Pires [facility] Start: 02-05-2022 End: 02-06-2022 ambulatory Eliazar Pires Facility:[facility] Start: 02-05-2022 End: 02-05-2022 Patient encounter procedure Eliazar Pires [facility] Start: 01-08-2022 End: 01-09-2022 ambulatory Eliazar Pires Facility:[facility] Start: 01-08-2022 End: 01-08-2022 Patient encounter procedure Eliazar Pires [facility] Start: 09-14-2021 End: 09-14-2021 ambulatory Nir Danis Other [employer] Other Start: 09-14-2021 Office outpatient visit 25 [...] 09-05-2032 Screening for malignant neoplasm of colon [facility] Start: 12-10-2024 Adult BMI Screening Adult BMI Screening [facility] Start: 12-10-2024 Tobacco Screening Tobacco Screening [facility] Start: 06-11-2024 Adult BMI Screening Adult BMI Screening [facility] Start: 06-11-2024 Tobacco Screening Tobacco Screening [facility] Start: 05-16-2024 Tobacco Screening Tobacco Screening [facility] Start: 04-15-2024 End: 04-15-2024 Patient encounter procedure 04/15/2024 1:45 PM EST Office Visit [facility] [address] [place] [phone] Live Kwon, PASadiq [address] [facility] [place] [address] [facility] Start: 04-01-2024 Adult BMI Screening Adult BMI Screening [facility] Start: 04-01-2024 Tobacco Screening Tobacco Screening [facility] Start: 03-15-2024 Adult BMI Screening Adult BMI Screening [facility] Start: 03-15-2024 Tobacco Screening Tobacco Screening [facility] Start: 02-28-2024 Tobacco Screening Tobacco Screening [facility] Start: 01-23-2024 Adult BMI Screening Adult BMI Screening [facility] Start: 01-21-2024 End: 01-21-2024 Patient encounter procedure 01/21/2024 12:30 PM EST Office Visit [facility] [address] [place] [address] Ricky Miles PA [address], [address] [place] [address] [facility] Start: 12-27-2023 End: 12-27-2023 Admission to same day surgery center 12/27/2023 1:57 PM EDT - 12/27/2023 2:04 PM EDT Surgery [facility] [address] [facility] [place] [phone] Reymundo Giron MD [address] [facility] [id number] INJECTION SPINE TRANSFORAMINAL Left 4,5 NRoot [78756 (CPT )] [facility] Comment on above: INJECTION SPINE TRANSFORAMINAL Left 4,5 NRoot [22725 (CPT )] Start: 12-27-2023 End: 12-27-2023 Njx anes&/strd w/img tfrml edrl lmbr/sac 1 lvl INJECTION SPINE TRANSFORAMINAL Spinal stenosis of lumbar region with neurogenic claudication 12/27/2023 1:57 PM EDT [facility] Start: 12-27-2023 Subsequent hospital visit by physician 12/27/2023 1:57 PM EDT Hospital Encounter [facility] [address] [place] [phone] Reymundo Giron MD [address] [facility] [place], [place] [phone] [facility] Start: 11-10-2023 Influenza vaccination Influenza Vaccine [facility] Start: 09-28-2023 Glaucoma screening Diabetes: Retinopathy Screening [facility] Start: 09-08-2023 Influenza vaccination Influenza Vaccine (#1) [facility] Comment on above: Postponed from 11/09/2022 (Patient Refus ed) Start: 08-14-2023 End: 08-14-2023 Patient encounter procedure 08/14/2023 12:45 PM EDT Office Visit [facility] [address] [place] [address] Live Kwon PA-C [address], [address] [place] [address] [facility] Start: 07-12-2023 End: 07-12-2023 Admission to same day surgery center 07/12/2023 11:00 AM EDT - 07/12/2023 11:11 AM EDT Surgery [facility] [address] [place] [phone] Reymundo Giron MD [address] [place] [address] RADIOFREQUENCY ABLATION SPINAL Left L 2/3, 3/4 [14382 (CPT )] [facility] Comment on above: RADIOFREQUENCY ABLATION SPINAL Left L 2/ 3, 3/4 [93636 (CPT )] Start: 07-12-2023 End: 07-12-2023 Dstr nrolytc agnt parverteb fct sngl lmbr/sacral RADIOFREQUENCY ABLATION SPINAL Lumbar spondylosis 07/12/2023 11:00 AM EDT [facility] Start: 07-12-2023 Subsequent hospital visit by physician 07/12/2023 11:00 AM EDT Hospital Encounter [facility] [address] [place] [phone] Reymundo Giron MD [address] [place] [address] [facility] Start: 07-02-2023 End: 07-02-2023 Patient encounter procedure 07/02/2023 2:15 PM EDT Office Visit [facility] [address] [place] [phone] Laverne Porter, [address] [place] [address] [facility] Start: 07-02-2023 Hemoglobin A1c measurement Diabetes: Hemoglobin A1C [facility] Start: 06-28-2023 End: 06-28-2023 Admission to same day surgery center 06/28/2023 11:00 AM EDT - 06/28/2023 11:11 AM EDT Surgery [facility] [address] [place] [phone] Reymundo Giron MD [address] [place], [place] [phone] RADIOFREQUENCY ABLATION SPINAL Right L 2/3 3/4 [75784 (CPT )] [facility] Comment on above: RADIOFREQUENCY ABLATION SPINAL Right L 2 /3 3/4 [14813 (CPT )] Start: 06-28-2023 End: 06-28-2023 Dstr nrolytc agnt parverteb fct sngl lmbr/sacral RADIOFREQUENCY ABLATION SPINAL Lumbar spondylosis 06/28/2023 11:00 AM EDT [facility] Start: 06-28-2023 Subsequent hospital visit by physician 06/28/2023 11:00 AM EDT Hospital Encounter [facility] [address] [place] [phone] Reymundo Giron MD [address] [place], [place] [phone] [facility] Start: 06-20-2023 End: 06-20-2023 Patient encounter procedure 06/20/2023 2:00 PM EDT Office Visit [facility] [address] [place] [address] Eliazar Pires, DPM [address] [facility] [address] [place] [address] [facility] Start: 06-12-2023 End: 06-12-2023 Patient encounter procedure 06/12/2023 10:45 AM EDT Office Visit [facility] [address] [place] [address] Live Kwon PA-C [address] [place] [address] [facility] Start: 04-17-2023 End: 04-17-2023 Patient encounter procedure 04/17/2023 2:30 PM EST Office Visit [facility] [address] [place] [phone] Live Kwon PA-C [address] [place], [place] [phone] [facility] Start: 04-15-2023 End: 04-15-2023 Clinical Support 04/15/2023 11:00 AM EST Clinical Support [facility] [address] [place] [address] Lindy Valentino, [facility] [address] [place] [address] [facility] Start: 04-01-2023 End: 04-01-2023 Patient encounter procedure [facility] Start: 03-29-2023 End: 03-29-2023 Admission to same day surgery center 03/29/2023 10:34 AM EST - 03/29/2023 10:40 AM EST Surgery [facility] [address] [place] [phone] Reymundo Giron MD [address] [place] [id number] INJECTION BLOCK NERVE MEDIAL BRANCH Bilat L 2/3, 3/4 [72393 (CPT )] [facility] Comment on above: INJECTION BLOCK NERVE MEDIAL BRANCH Bila t L 2/3, 3/4 [65872 (CPT )] Start: 03-29-2023 End: 03-29-2023 Njx dx/ther agt pvrt facet jt lmbr/sac 1 level INJECTION BLOCK NERVE MEDIAL BRANCH Lumbar spondylosis 03/29/2023 10:34 AM EST [facility] Start: 03-29-2023 Subsequent hospital visit by physician [facility] Start: 03-29-2023 End: 03-29-2023 Patient encounter procedure 03/29/2023 8:55 AM EST Appointment [facility] [address] [place] [address] Reymundo Giron MD [address] [facility] [place] [address] [facility] Start: 03-27-2023 End: 03-27-2023 Patient encounter procedure [facility] Start: 03-22-2023 End: 03-15-2024 Basic metabolic 2000 panel - Serum or Plasma Basic Metabolic Panel Lab Routine Primary hypertension Familial hypercholesterolemia Chest pain, unspecified type Abnormal EKG Expected: 03/22/2023 (Approximate), Expires: 03/15/2024 [facility] Comment on above: Expected: 03/22/2023 (Approximate), Expi res: 03/15/2024 Start: 03-22-2023 End: 03-15-2024 CBC W Auto Differential panel - Blood CBC auto differential Lab Routine Primary hypertension Familial hypercholesterolemia Chest pain, unspecified type Abnormal EKG Expected: 03/22/2023, Expires: 03/15/2024 [facility] Comment on above: Expected: 03/22/2023, Expires: Start: 03-22-2023 End: 03-15-2024 Lipid 1996 panel - Serum or Plasma Lipid profile Lab Routine Primary hypertension Familial hypercholesterolemia Chest pain, unspecified type Abnormal EKG Expected: 03/22/2023, Expires: 03/15/2024 [facility] [employer] [facility] Comment on above: Expected: 03/22/2023, Expires: Start: 03-22-2023 End: 03-14-2024 NM Heart Perfusion W adenosine and W radionuclide IV Nuc stress Lexiscan/Exercise Cardiac Services Routine Chest pain, unspecified type Abnormal EKG Expected: 03/22/2023, Expires: 03/14/2024 [facility] Work Phone: Comment on above: Expected: 03/22/2023, Expires: Start: 03-15-2023 End: 03-15-2023 Patient encounter procedure 03/15/2023 1:00 PM EST Office Visit [facility] [address] [place] [address] Dennis Foster MD [address] [place] [address] [facility] Start: 03-09-2023 Screening for malignant neoplasm of breast Mammogram [facility] Start: 11-09-2022 Influenza vaccination Influenza Vaccine [facility] Start: 08-09-2022 [facility] Start: 07-12-2022 [facility] Start: 04-27-2022 [facility] Start: 12-24-2021 Administration of varicella zoster vaccine Zoster (Shingles) Vaccine (1 of 2) [facility] Start: 12-24-1990 DTaP,Tdap and Td Vaccines (1 - Tdap) DTaP,Tdap and Td Vaccines (1 - Tdap) [facility] Start: 12-24-1989 Adult BMI Follow Up Plan Adult BMI Follow Up Plan [facility] Start: 12-24-1989 Diabetic foot examination Diabetic Foot Exam [facility] Start: 1983 Depression Screening Depression Screening [facility] Start: 1971 Glaucoma screening Diabetic Ophthalmology Exam [facility] Start: 1971 Screening for malignant neoplasm of colon [facility] Start: 1971 Tobacco Counseling Tobacco Counseling [facility] End: 03-28-2024 Cholesterol in LDL [Mass/volume] in Serum or Plasma LDL cholesterol, direct Lab Routine Familial hypercholesterolemia 1 Occurrences starting 03/28/2023 until 03/28/2024 [facility] Work Phone: Comment on above: 1 Occurrences starting 03/28/2023 until 03/28/2024 Njx dx/ther agt pvrt facet jt lmbr/sac 1 level INJECTION BLOCK NERVE MEDIAL BRANCH Lumbar spondylosis [facility] Patient Education Gastritis (DC) [facility] Work Phone: Renal function 1999 panel - Serum or Plasma [facility] Renal function 1999 panel - Serum or Plasma [facility] Immunizations Immunization Date Immunization Notes Care Provider Page celestin 06-21-2021 hepatitis B vaccine, adult dosage Eliazar Pires DPM Work Phone: [facility] 03-01-2020 hepatitis A vaccine, adult dosage Eliazar Pires DPM Work Phone: [facility] 03-01-2020 hepatitis B vaccine, adult dosage Eliazar Pires DPM Work Phone: [facility] 01-24-2020 hepatitis A vaccine, adult dosage Eliazar Pires DPM Work Phone: [facility] 01-24-2020 pneumococcal polysaccharide vaccine, 23 valent Eliazar Pires DPM Work Phone: [facility] 01-24-2020 Seasonal, quadrivalent, recombinant, injectable influenza vaccine, preservative free Eliazar Pires DPM Work Phone: [facility] 01-24-2020 influenza virus vaccine, unspecified formulation Ramila Jones [facility] 12-18-2018 hepatitis A vaccine, adult dosage Eliazar Pires DPM Work Phone: [facility] 12-18-2018 Seasonal, quadrivalent, recombinant, injectable influenza vaccine, preservative free Eliazar Pires DPM Work Phone: [facility] 12-13-2016 influenza virus vaccine, unspecified formulation [facility] 12-13-2016 influenza, injectable, quadrivalent, preservative free Eliazar Pires DPM Work Phone: [facility] 12-13-2016 influenza, injectable,quadrival ent, preservative free, pediatric Nir Danis Other [employer] Other NEGATED: Highlighted row has not occurred! 9 influenza, injectable,quadrival ent, preservative free, pediatric Patient Objection Nir Danis Other [employer] Other Payers Date Payer Category Payer Medicaid [id number] 2022 Unknown [id number] 1970 Unknown [id number] 2.16.8 40.1.936101.3.579.2.727 1970 Unknown [id number] 2.16.8 40.1.062227.3.579.2.727 1971 Unknown [id number] 2.16.8 40.1.744856.3.579.2.727 1971 Unknown [id number] 2.16.84 0.1.871585.3.579.2.593 1971 Unknown [id number] 2.16.84 0.1.069132.3.579.2.593 1971 Unknown [id number] 2.16.84 0.1.497874.3.579.2.593 1971 Unknown [id number] 2.16.84 0.1.979391.3.579.2.593 1971 Unknown [id number] 2.16.84 0.1.380868.3.579.2.593 1971 Unknown [id number] 2.16.84 0.1.481999.3.579.2.593 1971 Unknown [id number] 2.16.8 40.1.669390.3.579.2.1286 1971 Unknown [id number] 2.16.8 40.1.619872.3.579.2.1286 1971 Unknown [id number] 2.16.8 40.1.713559.3.579.2.1286 1971 Unknown [id number] 2.16.8 40.1.054812.3.579.2.1286 1971 Unknown [id number] 2.16.8 40.1.801523.3.579.2.1286 1971 Unknown [id number] 2.16.8 40.1.415739.3.579.2.1286 1971 Unknown [id number] 2.16.8 40.1.525008.3.579.2.1286 1971 Unknown [id number] 2.16.8 40.1.272791.3.579.2.1286 1971 Unknown [id number] 2.16.8 40.1.007397.3.579.2.1286 1971 Unknown [id number] 2.16.8 40.1.401357.3.579.2.1286 1971 Unknown [id number] 2.16.8 40.1.191083.3.579.2.1286 1971 Unknown [id number] 2.16.8 40.1.975469.3.579.2.1286 1971 Unknown [id number] 2.16.8 40.1.688050.3.579.2.1286 1971 Unknown [id number] 2.16.8 40.1.743207.3.579.2.1286 1971 Unknown [id number] 2.16.8 40.1.829583.3.579.2.1286 1971 Unknown [id number] 2.16.8 40.1.501483.3.579.2.128 1971 Unknown [id number] 2.16.8 40.1.446321.3.579.2.1286 1971 Unknown [id number] 2.16.8 40.1.458764.3.579.2.128 1971 Unknown [id number] 2.16.8 40.1.391572.3.579.2.1285 1971 Unknown [id number] 2.16.8 40.1.786360.3.579.2.1285 1971 Unknown [id number] 2.16.8 40.1.154290.3.579.2.1286 1971 Unknown [id number] 2.16.8 40.1.404029.3.579.2.1286 1971 Unknown [id number] 2.16.8 40.1.043679.3.579.2.1286 1971 Unknown [id number] 2.16.8 40.1.332777.3.579.2.1286 1971 Unknown [id number] 2.16.8 40.1.141187.3.579.2.128 1971 Unknown [id number] 2.16.84 0.1.320990.3.579.2.1286 1971 Unknown [id number] 2.16.8 40.1.564988.3.579.2.1285 1971 Unknown [id number] 2.16.8 40.1.992609.3.579.2.1285 1971 Unknown [id number] 2.16.84 0.1.107784.3.579.2.1286 1971 Unknown [id number] 2.16.84 0.1.309337.3.579.2.1286 1971 Unknown [id number] 2.16.84 0.1.737002.3.579.2.1286 1971 Unknown [id number] 2.16.8 40.1.243568.3.579.2.1286 1971 Unknown [id number] 2.16.8 40.1.027222.3.579.2.1286 1971 Unknown [id number] 2.16.8 40.1.242865.3.579.2.1286 1971 Unknown [id number] 2.16.8 40.1.761899.3.579.2.1286 1971 Unknown [id number] 2.16.84 0.1.782351.3.579.2.1286 1971 Unknown [id number] 2.16.84 0.1.979109.3.579.2.1286 1971 Unknown [id number] 2.16.84 0.1.863848.3.579.2.1259 1971 Unknown [id number] 2.16.84 0.1.564201.3.579.2.1259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 visit NarrativePatient here at the request of Dr. Chavez for evaluation & treatment of dysphagia.[employer] Other Summary Purpose Family History No Family [...] kidney disease) stage 3, GFR 30-59 ml/min [id number] Hypomagnesemia Type 2 diabetes mellitus with diabetic chronic kidney disease Hypercalcemia Chief Complaint BH RENAL F/U Reason for Visit Adrenal nodule CKD (chronic kidney disease) stage 3, GFR 30-59 ml/min [id number] Hypomagnesemia Type 2 diabetes mellitus with diabetic chronic kidney disease Hypercalcemia Chief Complaint BH m54.50 Chief Complaint BH m54.50 Other intervertebral disc displacement, lumbar Chief Complaint m54.50 Other intervertebral disc displacement, lumbar BH RENAL 6 MONTH F/U Reason for Visit History of lumbar fu paul Lumbar stenosis Piriformis syndrome of left side Adrenal nodule CKD (chronic kidney disease) stage 3, GFR 30-59 ml/min [id number] Hypomagnesemia Type 2 diabetes mellitus with diabetic chronic kidney disease Hypercalcemia Reason for Referral Specialty Diagnoses / Procedures Referred By Randall bliss Referred To Contact Diagnoses Spinal stenosis of lumbar region with neurogenic claudication Procedures Case request operating room: INJECTION SPINE TRANSFORAMINAL Left 4,5 NR Live Kwon, MAKAYLA [address] [place] [id number] Referral ID Status Reason Start Date Expiration Date V isits Requested Visits Authorized [id number] Pending Review 12/11/2023 12/10/2024 1 1 Specialty Diagnoses / Procedures Referred By Contac t Referred To Contact Diagnoses Lumbar spondylosis Procedures Case request operating room: RADIOFREQUENCY ABLATION SPINAL Left L 2/3, 3/4 Cher Live Maher, PA-C [address] [place] [address] Referral ID Status Reason Start Date Expiration Date V isits Requested Visits Authorized [id number] Pending Review 06/12/2023 06/11/2024 1 1 Specialty Diagnoses / Procedures Referred By Contac t Referred To Contact Diagnoses Lumbar spondylosis Procedures Case request operating room: RADIOFREQUENCY ABLATION SPINAL Right L 2/3 3/4 Cher Live Maher, PA-C [address], [address] [place] [id number] Referral ID Status Reason Start Date Expiration Date V isits Requested Visits Authorized [id number] Pending Review 06/12/2023 06/11/2024 1 1 Specialty Diagnoses / Procedures Referred By Contac t Referred To Contact Diagnoses Chest pain, unspecified type Abnormal EKG Procedures Nuc stress Lexiscan/Exercise Dennis Foster MD [address] [place] [address] [facility] [address] [place] [address] Phone: [phone] Referral ID Status Reason Start Date Expiration Date V isits Requested Visits Authorized [id number] Authorized 03/15/2023 03/14/2024 5 5 Additional Source [...] Member Role Status Dates Kaylie Chavez APRN TENNIS RACKET REPAIRER-C Primary Care Provider Active Team Status: Inactive Member Role Status Dates Kaylie Chavez APRN TENNIS RACKET REPAIRER-C Primary Care Provider Active Start: September 30, 2023 End: September 30, 2023 Jeovanny Mendes MD Attending Provider Active Star t: September 30, 2023 End: September 30, 2023 Team Status: Inactive Member Role Status Dates Kaylie Chavez APRN TENNIS RACKET REPAIRER-C Primary Care Provider Active Start: October 01, 2023 End: October 01, 2023 Jeovanny Mendes MD Attending Provider Active Star t: October 01, 2023 End: October 01, 2023 Team Status: Active Member Role Status Dates Kaylie Chavez APRN TENNIS RACKET REPAIRER-C Primary Care Provider Active Start: October 29, 2023 Fermín Donahue MD Attending Provider Active Start: October 29, 2023 Team Status: Active Member Role Status Dates Kaylie Chavez APRN TENNIS RACKET REPAIRER-C Primary Care Provider Active Start: November 13, 2023 Nir Horvath MD Attending Provider Active Start : November 13, 2023 Team Status: Inactive Member Role Status Dates Kaylie Chavez APRN TENNIS RACKET REPAIRER-C Primary Care Provider Active Start: November 21, 2023 End: November 21, 2023 Nir Horvath MD Attending Provider Active Start : November 21, 2023 End: November 21, 2023 Team Status: Active Member Role Status Dates Kaylie Chavez APRN TENNIS RACKET REPAIRER-C Primary Care Provider Active Start: April 16, 2023 Fermín Donahue MD Attending Provider Active Start: April 16, 2023 Team Status: Inactive Member Role Status Dates Kaylie Chavez APRN TENNIS RACKET REPAIRER-C Primary Care Provider Active Start: April 25, 2023 End: April 25, 2023 Nir Horvath MD Attending Provider Active Start : April 25, 2023 End: April 25, 2023 Team Status: Inactive Member Role Status Dates Kaylie Chavez APRN TENNIS RACKET REPAIRER-C Primary Care Provider Active Peyton Hoskins MD Attending Provider Active Team Status: Active Member Role Status Dates Kala Lloyd MD Primary Care Provider Active Kaylie Chavez APRN TENNIS RACKET REPAIRER-C Referring Provider Active Isela Downs MD Attending Provider Active Team Status: Active Member Role Status Dates Kaylie Chavez APRN TENNIS RACKET REPAIRER-C Primary Care Provider Active Herrera Donahue MD Attending Provider Active Team Status: Inactive Member Role Status Dates Kaylie Chavez APRN TENNIS RACKET REPAIRER-C Primary Care Provider Active Nir Horvath MD Attending Provider Active Wood Patternmaker Relationship Specialty Start Date End Date Kaylie Chavez DSP ENGINEER-VOLUNTEER SERVICES DIRECTOR [address] [place] [address] PCP - General Nurse Practitioner 11/20/18 Wood Patternmaker Relationship Specialty Start Date End Date Kaylie Chavez APRN-VOLUNTEER SERVICES DIRECTOR [address] [place] [address] PCP - General Nurse Practitioner 11/20/18 Wood Patternmaker Relationship Specialty Start Date End Date Kaylie Chavez APRN-VOLUNTEER SERVICES DIRECTOR [address] [place] [address] PCP - General Nurse Practitioner 11/20/18 Wood Patternmaker Relationship Specialty Start Date End Date Kala Lloyd MD [address] [place] [address] PCP - General Family Medicine 08/07/22 Kaylie Chavez TENNIS RACKET REPAIRER [address] [place] [address] Nurse Practitioner Family Medicine 08/07/22 Wood Patternmaker Relationship Specialty Start Date End Date Kala Lloyd MD [address] [place] [address] PCP - General Family Medicine 08/07/22 Kaylie Chavez NP [address] [place] [address] Nurse Practitioner Family Medicine 08/07/22 Wood Patternmaker Relationship Specialty Start Date End Date Kaylie Chavez APRN-VOLUNTEER SERVICES DIRECTOR [address] [facility] [place] [address] PCP - General Nurse Practitioner 11/20/18 Wood Patternmaker Relationship Specialty Start Date End Date Kaylie Chavez APRN-VOLUNTEER SERVICES DIRECTOR [address] [facility] [place] [address] PCP - General Nurse Practitioner 11/20/18 Team Status: Active Member Role Status Dates Kaylie Chavez APRN TENNIS RACKET REPAIRER-C Primary Care Provider Active Start: September 24, 2023 Fermín Donahue MD Attending Provider Active Start: September 24, 2023 Wood Patternmaker Relationship Specialty Start Date End Date Kaylie Chavez APRN-VOLUNTEER SERVICES DIRECTOR [address] [facility] [place] [address] PCP - General Nurse Practitioner 11/20/18 INFORMATION SOURCE (unrecogn ized section and content) DATE CREATED AUTHOR 03/13/2022 [facility] dical Specialist DATE CREATED AUTHOR AUTHOR'S ORGANIZ ATION 03/22/2022 [facility] DATE CREATED AUTHOR AUTHOR'S ORGANIZ ATION 07/22/2022 [facility] DATE CREATED AUTHOR AUTHOR'S ORGANIZ ATION 10/03/2023 [facility] DATE CREATED AUTHOR AUTHOR'S ORGANIZ ATION 12/13/2023 [facility] DATE CREATED AUTHOR AUTHOR'S ORGANIZ ATION 2023 [facility] dical Specialists EPIC Goals (unrecognized section and [...] BE BASED ON THE PRIMARY CLINICAL RECORDS. [employer] provides no warranty or guarantee of the accuracy or completeness of information in this document.
[2023-12-25 12:07] LABS: Valproic Acid 27.3 ug/mL (50.0-100.0)
== END 2023-12-25 10:54 | disposition home or self-care (01) ==
PROVIDERS: PCP Nurse Practitioner Family; Visit Provider Registered Nurse Psychiatric/Mental Health
DX: Z79.899 Other long term (current) drug therapy (principal)
CPT/HCPCS: 36415; 80164

== ENCOUNTER 2024-06-10 10:17 | Outpatient (OUT) | payer MEDICAID, SELFPAY ==
--- OUTSIDE RECORDS SUMMARY | 2024-06-10 10:25 | XMS_ITS | CCD ---
Demographics Address [address] [address] Mobile Phone Home Phone Preferred Language en Marital Status Unknown Religion Affiliation Unknown Race White Ethnic Group Not or Lati no Author Organization [facility] Care Team Providers Care Transport Conductor Name Role Phone Danis, Nir Unavailable KAYLIE CHAVEZ Primary Care Physician [phone] Rosina Salter Unavailable Unavailable KALA LLOYD Primary Care Physician [phone] Eliazar Pires Attending Unavailable Eliazar Pires Admitting Unavailable Eliazar Pires Attending Unavailable Eliazar Pires Admitting Unavailable Eliazar Pires Admitting Unavailable Eliazar Pires Attending Unavailable MD Kala Lloyd Primary Care Provider TAMMIE Chavez Referring Provider MD Isela Downs Attending Provider Peyton Hoskins Unavailable MD Kala Lloyd Primary Care Provider TAMMIE Chavez Referring Provider [phone] MD Isela Downs Attending Provider TAMMIE Chavez Primary Care Provider [phone] MD Peyton Hoskins Attending Provider [phone] DANIS, NIR Admitting Unavailable DANIS, NIR Attending [...] Care Unavailable DANIS, NIR Consulting Unavailable Chavez, CASHIER MANAGER Kaylie R Primary Care Provider MD Herrera Donahue Attending Provider MD Nir Moscoso Attending Provider Prema COUGHLIN, [facility] Primary Care Provider Chavez COFFEE SAMPLER, Kaylie R Unavailable ChavezCAROLN Kaylie R Primary Care Provider MD Fermín Donahue Attending Provider ChavezTAMMIE Kaylie R Primary Care Provider MD Fermín Donahue Attending Provider MD Jeovanny Mendes Attending Provider [phone] Chavez, Kaylie R Primary Care Unavailable Jeovanny Mendes Attending Unavailable Jeovanny Mendes Admitting Unavailable Chavez, CASHIER MANAGER Kaylie R Primary Care Provider MD Fermín Donahue Attending Provider Prema COUGHLIN, [facility] Unavailable Sterling Ford Attending Unavailable Sterling Ford Referring Unavailable Chavez COFFEE SAMPLER, Kaylie R Unavailable Chicho [facility], Lindy K Unavailable [phone] Chavez CASHIER MANAGER-MACHINE FITTER, Kaylie R Primary Care Provider Chavez CASHIER MANAGER-MACHINE FITTER, Kaylie R Primary Care Provider LIVE KWON Attending Unavailable CHAVEZ, KAYLIE R Referring Unavailable CHAVEZ, KAYLIE R Primary Care Unavailable CHAVEZ, KAYLIE R Primary Care Unavailable JULITA PETERSEN Attending Unavailab REYMUNDO Valladares Admitting Unavailable GIRON, REYMUNDO Bang Attending Unavailable [...] Unavailable CHAVEZ, KAYLIE R Primary Care Unavailable VERHOLIVE BYRNE Referring Unavailable CHAVEZ, KAYLIE R Primary Care Unavailable VERHOLIVE BYRNE Referring Unavailable CHAVEZ, KAYLIE R Primary Care [...] Unavailable CHAVEZ, KAYLIE R Primary Care Unavailable NIENBERGMAGALIE Attending Unavailable CHAVEZ, KAYLIE R Referring Unavailable CHAVEZ, KAYLIE R Primary Care Unavailable GIRON, REYMUNDO E Admitting Unavailable GIRON, REYMUNDO Bang Attending Unavailable CHAVEZ, KAYLIE R Referring Unavailable CHAVEZ, KAYLIE R Primary Care Unavailable GIRON, REYMUNDO E Attending Unavailable GIRON, REYMUNDO E Referring Unavailable CHAVEZ, KAYLIE R Primary Care Unavailable NIMAGALIE CASTLE Attending Unavailable CHAVEZ, KAYLIE R Referring Unavailable CHAVEZ, KAYLIE R Primary Care Unavailable GIRON, REYMUNDO E Admitting Unavailable GIRON, REYMUNDO Bang Attending Unavailable CHAVEZ, KAYLIE R Referring Unavailable CHAVEZ, KAYLIE R Primary Care Unavailable GIRON, REYMUNDO E Attending Unavailable GIRON, REYMUNDO E Referring Unavailable CHAVEZ, KAYLIE R Primary Care Unavailable MAGALIE GREEN Attending Unavailable CHAVEZ, KAYLIE R Referring Unavailable CHAVEZ, KAYLIE R Primary Care Unavailable LINDY VALENTINO Attending Unavailabl ELIAZAR Yost Attending Unavailable CHICHOLINDY KEARNEY Attending Unavailabl e PREMA, KALA F Attending Unavailable PREMA, KALA F Attending Unavailable PREMA, KALA F Referring Unavailable PETLAVERNE COLES Attending Unavailable LINDY VALENTINO Attending Unavailabl e PREMA, KALA F Referring Unavailable ELIAZAR PIRES Attending Unavailable KALA LLOYD F Attending Unavailable LAVERNE PORTER Attending Unavailable LINDY VALENTINO Attending Unavailabl e CHICHOLINDY LONG Attending Unavailabl e ELIAZAR PIRES Attending Unavailable LINDY VALENTINO Attending Unavailabl e RALPH OJEDA Attending Unavailable LAVERNE PORTER Attending Unavailable LINDY VALENTINO Attending Unavailabl e ELIAZAR PIRES Attending Unavailable LINDY VALENTINO Attending Unavailabl e CHICHOLINDY LONG Attending Unavailabl e DANII MANLEY Attending Unavailable DANII MANLEY Referring Unavailable ELIAZAR PIRES Attending Unavailable LAVERNE PORTER Attending Unavailable LINDY VALENTINO Attending Unavailabl e KALA LLOYD F Attending Unavailable LINDY VALENTINO Attending Unavailabl e Allergies Allergy Classification Reported Allergen(s) Allergy Type Date of Onset Reaction(s) Facility (14 sources) Coconut extract Drug Allergy 05-19-19 Unknown, [facility] (20 sources) Codeine; Translations: [CODEINE] Drug Allergy 01-01-20 Unknown [facility] (20 sources) dapagliflozin; Translations: [DAPAGLIFLOZIN] Drug Allergy 01-01-20 [facility] (20 sources) Latex; Translations: [LATEX] Propensity to adverse reactions 01-08-20 [facility] (5 sources) onions Propensity to adverse reactions Unknown [facility] (20 sources) Acetaminophen Drug Allergy 05-19-19 Unknown [facility] (4 sources) Bee pollen Allergy to substance 05-19-19 23 Anaphylaxis [facility] (20 sources) Onion extract Drug Allergy 05-19-19 23 Anaphylaxis [facility] (9 sources) Tide Allergy to substance 05-19-19 23 Rash [facility] (1 source) Coconut extract Drug Allergy 06-17-[address] [facility] (1 source) Codeine Drug Allergy 02-08-20 [address] [facility] (1 source) Latex Drug allergy (disorder) 06-17-[address] [facility] (1 source) Misc-Food; Translations: [Misc-Food] Food allergy (disorder) 06-17-[address] [facility] (1 source) Misc-Drug Drug allergy (disorder) 07-05-19 [address] [facility] (20 sources) dapagliflozin Drug Allergy 07-24-19 [address] [facility] (20 sources) Latex Allergy to substance 07-24-19 23 Unknown [facility] (20 sources) Coconut Flavor Allergy to substance 07-24-19 Unknown [facility] Work Phone: (20 sources) Coconut Flavoring Agent (Non-Screening) Allergy to substance 07-24-19 [facility] Work Phone: Medications Current Medications Medication Drug Class(es) Dates Sig (Normalized) Sig (Original) [id number] 200 actuat albuterol 0.09 mg/actuat metered dose inhaler (20 sources) beta2-Adrenergic Agonist Start: 04-25-2023 take 2 puff(s) by inhalation every six hours as needed Albuterol Sulfate Active 2 PUFF INHALATION Every 6 hours April 25, 2023 1:00am [employer] puffs as needed Inhalation every 6 hrs; Note: Source Status: Taking; Provider: Danis Loyola ( ) Start: 07-17-2021 End: 01-31-2024 take 2 puff(s) by inhalation every four hours for wheezing albuterol HFA 90 mcg/act inhaler Indications: Acute bronchitis, unspecified organism , Chronic diarrhea Inhale 2 puffs every 4 (four) hours if needed for wheezing 18 g 3 01/31/2024 Active Start: 05-25-2019 End: 11-21-2023 take 1 [...] Active aMILoride hydrochloride 5 mg oral tablet (20 sources) Potassium-sparing Diuretic Start: 04-12-2022 take 5 [...] November 21, 2023 12:00am Start: 04-26-2022 End: 05-16-2024 take 1 tablet by mouth once daily atorvastatin (Lipitor) 80 MG tablet Indications: Mixed hyperlipidemia (CMS/HCC) Take 1 tablet (80 mg) by mouth Daily 100 tablet 3 05/17/2023 Active Start: 05-15-2018 End: 04-22-2020 take 80 mg by mouth once daily in the morning Atorvastatin Discontinued 80 MG PO Every morning May 15, 2018 1:00am April 22, 2020 4:06pm take 2 tablets by mo [facility] in the morning atorvastatin (LIPITOR) 40 mg tablet Take 2 tablets (80 mg total) by mouth in the morning. Active bismuth subsalicylate 262 mg chewable tablet (1 source) Bismuth Start: 07-20-2022 take 1 tablet by mouth twice daily Bismuth 262 MG 1 tablet Orally twice daily for 14 days July, Active Blood Glucose Monitoring Suppl ([employer]) w/Device kit (20 sources) Start: 10-21-2023 Blood Glucose Monitoring Suppl ([employer]) w/Device kit Indications: Type 2 diabetes mellitus with stage 3a chronic kidney disease, with long-term current use of insulin (HCC) ([facility]/HCC) Fsbs daily 1 kit 10/21/2023 Active blood-glucose sensor (DEXCOM G6 SENSOR) device (13 sources) blood-glucose se nsor (DEXCOM G6 SENSOR) [...] tablet (20 sources) Histamine-1 Receptor Antagonist Start: 09-06-2023 End: 12-06-2023 take 1 tablet by mouth once daily cetirizine (ZyrTEC) 10 MG tablet Indications: Seasonal allergic rhinitis due to pollen Take 1 tablet by mouth once daily 90 tablet 1 12/06/2023 Active Start: 05-25-2019 End: 04-25-2023 take 10 mg [...] mg by mouth every 8 (eight) hours. Active cholecalciferol 1.25 mg oral capsule (20 sources) Vitamin D Start: 11-21-2023 take 1250 ug by mouth every week Cholecalciferol (Vitamin D3) Active 1250 MCG PO every week November 21, 2023 12:00am Start: 04-21-2020 End: 04-27-2022 take 10 ug by mouth once daily Cholecalciferol (Vitami n D3) Discontinued 10 MCG PO Daily April 21, 2020 1:00am April 27, 2022 10:40am take 1 tablet by nancy th every week cholecalciferol (Vitamin D-3) 1.25 MG (44743 UT) tablet Take 50,000 Units by mouth 1 (one) time per week Active cholecalciferol (VITAMIN D3) 50,000 units capsule Take 5,000 Units by mouth once a week. Active take 1 capsule by mo uth every week cholecalciferol (Vitamin D-3) 1.25 MG (45723 UT) capsule Take 50,000 Units by mouth 1 (one) time per week. 0 Active Continuous Glucose Research Laboratory Technician (Dexcom G7 Research Laboratory Technician) device (20 sources) Start: 10-22-2023 Continuous Glu cose Research Laboratory Technician (Dexcom G7 Research Laboratory Technician) device Indications: Type 2 diabetes mellitus with stage 3a chronic kidney disease, with long-term current use of insulin (HCC) ([facility]/HCC) 1 Device See administration instructions 1 each 10/22/2023 Active Continuous Glucose Sensor (Dexcom G7 Sensor) [facility] (20 sources) Start: 05-19-2024 Continuous Glu cose Sensor (Dexcom G7 Sensor) [facility] Indications: Type 2 diabetes mellitus with stage 3a chronic kidney disease, with long-term current use of insulin (HCC) (CMS/HCC) Inject 1 Device under the skin Every 10 (ten) days 9 each 3 05/19/2024 Active Start: 10-22-2023 End: 05-19-2024 Continuous Glucose Sensor (D excom G7 Sensor) [facility] Indications: Type 2 diabetes mellitus with stage 3a chronic kidney disease, with long-term current use of insulin (HCC) (CMS/HCC) Inject 1 Device under the skin Every 10 (ten) days 9 each 3 10/22/2023 05/19/2024 Discontinued (Reorder) Start: 10-22-2023 Continuous Glu cose Sensor (Dexcom G7 Sensor) [facility] Indications: Type 2 diabetes mellitus with stage 3a chronic kidney disease, with long-term current use of insulin (HCC) (CMS/HCC) Inject 1 Device under the skin Every 10 (ten) days 9 each 3 10/22/2023 Active doxepin hydrochloride 50 mg oral capsule (20 sources) Tricyclic Antidepressant Start: 05-15-2018 take 50 mg by mouth three times daily Doxepin Active 50 MG PO Three times daily May 15, 2018 1:00am doxycycline hyclate 100 mg oral tablet (2 sources) Tetracycline-class Drug Start: 01-31-2024 End: 02-10-2024 doxycycline (Vibra-Tabs) 100 MG tablet Indications: Acute bronchitis, unspecified organism , Chronic diarrhea Take 1 tablet (100 mg) by mouth in the morning and 1 tablet (100 mg) before bedtime. Do all this for 10 days. Take with a full glass of water and do not lie down for at least 30 minutes after.. 20 tablet 01/31/2024 02/10/2024 Active [id number] 0.3 ml EPINEPHrine 1 mg/ml auto-injector (20 sources) alpha-Adrenergic Agonist, beta-Adrenergic Agonist, Catecholamine Start: 11-02-2021 EPINEPHrine (EpiPen 2-Arnaldo) 0.3 MG/0.3ML injection syringe Inject 1 Syringe as directed 1 (one) time. 11/02/2021 Active EPINEPHrine (ADR ENALIN) 1 mg/mL injection Inject into the appropriate muscle once. Active ergocalciferol 1.25 mg oral capsule (20 sources) Provitamin D2 Compound Start: 06-09-2024 take 1 capsule by mouth every week ergocalciferol (Vitamin D2) 1.25 MG (26559 UT) capsule Indications: Vitamin D deficiency Take 1 capsule by mouth once a week 12 capsule 06/09/2024 Active Start: 12-30-2023 End: 06-09-2024 take 1 capsule by mouth every week ergocalciferol (Vitamin D2) 1.25 MG (97502 UT) capsule Indications: Vitamin D deficiency Take 1 capsule by mouth once a week 12 capsule 03/18/2024 06/09/2024 Discontinued Start: 05-25-2019 End: 04-26-2022 Ergocalciferol (Vitamin D2) (Vitamin D2) 1,250 mcg (50,000 unit) Capsule Discontinued 85274 UNIT PO As Directed May 25, 2019 12:00am April 26, 2022 3:35pm take twice weekly take 1 capsule by mo uth two times weekly Vitamin D (Ergocalciferol) 1.25 MG (34888 UT) 1 capsule Orally twice a week Active ezetimibe 10 mg oral tablet (20 sources) Dietary Cholesterol Absorption Inhibitor Start: 12-02-2020 take 1 tablet by mouth once daily ezetimibe (Zetia) 10 MG tablet Indications: Hyperlipidemia, unspecified hyperlipidemia type (CMS/HCC) Take 1 tablet by mouth once daily 90 tablet 1 09/18/2023 Active fluticasone propionate 0.05 mg/actuat metered dose [...] sprays into each nostril in the morning. 09/06/2014 Active take 2 spray(s) nasa l [...] pen injector (20 sources) Insulin Analog Start: 05-19-2024 insulin aspart (NovoLOG FlexPen ReliOn) 100 UNIT/ML pen Indications: Type 2 diabetes mellitus with peripheral neuropathy (CMS/HCC) 15 units breakfast/lunch, 35 units dinner plus correction 1:30 > 150 mg/dl (max daily 100 units) 30 mL 3 05/19/2024 Active Start: 01-20-2024 End: 05-19-2024 insulin aspart (NovoLOG Flex Pen ReliOn) 100 UNIT/ML pen Indications: Type 2 diabetes mellitus with peripheral neuropathy (CMS/HCC) 15 units breakfast/lunch, 30 units dinner (max daily 80 units) 30 mL 3 01/20/2024 05/19/2024 Discontinued (Reorder) Start: 08-12-2023 End: 01-20-2024 inject 10 [IU] by subcutaneous injection at mealtime insulin aspart (NovoLOG FlexPen ReliOn) 100 UNIT/ML pen Indications: Type 2 diabetes mellitus with peripheral neuropathy (CMS/HCC) INJECT 10 UNITS SUBCUTANEOUSLY WITH SMALL MEALS AND 30 UNITS WITH LARGE MEALS. (MAX DAILY AMOUNT 100 UNITS) 30 mL 3 08/12/2023 01/20/2024 Discontinued (Dose adjustment) Start: 04-03-2023 insulin aspart (NovoLOG) 100 UNIT/ML [...] pen injector (20 sources) Insulin Analog Start: 05-19-2024 End: 05-19-2025 inject 40 [IU] by subcutaneous injection in the morning insulin glargine (Lantus SoloStar) 100 UNIT/ML pen Indications: Type 2 diabetes mellitus with peripheral neuropathy (CMS/HCC) Inject 40 Units under the skin in the morning and 40 Units before bedtime. 30 mL 3 05/19/2024 05/19/2025 Active Start: 04-13-2024 End: 04-13-2025 inject 35 [IU] by subcutaneous injection in the morning Lantus SoloStar 100 UNIT/ML pen Indications: Type 2 diabetes mellitus with peripheral neuropathy (CMS/HCC) Inject 35 Units under the skin in the morning and 35 Units before bedtime. 30 mL 11 04/13/2024 05/19/2024 Discontinued (Reorder) Start: 11-21-2023 Insulin Glargi ne (Lantus Solostar U-100 Insulin) 100 unit/mL (3 mL) insulin pen Active 35 UNIT SUBCUT Twice daily November 21, 2023 2:47pm Start: 10-21-2023 inject 35 [IU] by burgos bcutaneous injection in the morning insulin glargine (Lantus SoloStar) 100 UNIT/ML pen Indications: Type 2 diabetes mellitus with peripheral neuropathy (CMS/HCC) Inject 35 Units under the skin in the morning and 35 Units before bedtime. 30 mL 3 10/21/2023 Active Start: 04-25-2023 End: 11-21-2023 Insulin Glargine (Lantus [...] morning. 90 tablet 1 01/21/2023 Active LORazepam 1 mg oral tablet (20 sources) Benzodiazepine Start: 05-14-2023 take 1 tablet by mouth three times daily as needed for anxiety LORazepam (Ativan) 1 MG tablet Take 1 mg by mouth 3 (three) times a day as needed for anxiety 05/14/2023 Active Start: 04-25-2023 take 2 tablets by mo uth four times daily Lorazepam (Ativan) 0.5 mg tablet Active 1 MG PO Four times daily April 25, 2023 3:36pm Start: 05-18-2022 End: 04-25-2023 take 1 tablet by mouth three times daily Lorazepam (Ativan) 0.5 mg Tablet Discontinued 0.5 MG PO Three times daily May 18, 2022 1:00am April 25, 2023 3:48pm Start: 05-18-2022 take 1 tablet by nancy once daily Lorazepam (Ativan) 0.5 mg Tablet Active 0.5 MG PO Daily May 18, 2022 1:00am take 2 tablets by mo uth every six hours as needed for anxiety LORazepam (ATIVAN) 0.5 mg tablet Take 2 tablets (1 mg total) by mouth every 6 (six) hours as needed for anxiety. 0.5-1 mg daily 2 tablets at HS Active take 2 tablets by mo uth in the morning, then take 2 tablets [...] 400 mg oral tablet (20 sources) Start: 02-26-2024 take 1 tablet by mouth once daily MAGnesium-Oxide 400 (240 Mg) MG tablet Indications: Hypomagnesemia Take 1 tablet by mouth once daily 30 tablet 3 02/26/2024 Active Start: 12-30-2023 End: 03-29-2024 take 1 tablet by mouth once daily Magnesium Oxide -Mg Supplement 400 MG capsule Indications: Hypomagnesemia Take 1 tablet by mouth Daily 30 capsule 1 12/30/2023 03/29/2024 Active Start: 04-25-2023 End: 11-21-2023 take 400 mg by mouth twice daily Magnesium Oxide Discontinued 400 MG PO Twice daily April 25, 2023 4:08pm November 21, 2023 2:57pm Start: 04-26-2022 End: 01-20-2024 take 400 mg by mouth once daily Magnesium Oxide Discon tinued 400 MG PO Daily April 26, 2022 1:00am April 25, 2023 4:08pm take 1 tablet by nancy th twice daily at mealtime Magnesium Oxide 400 (240 Mg) MG 1 tablet with food Orally bid for 90 day(s) Active metFORMIN hydrochloride 1000 mg oral tablet (20 sources) Biguanide Start: 05-15-2018 End: 12-24-2023 take 1 tablet by mouth in the morning metFORMIN (Glucophage) 1000 MG tablet Indications: Type 2 diabetes mellitus with peripheral neuropathy (CMS/HCC) Take 1 tablet (1,000 mg) by mouth in the morning and 1 tablet (1,000 mg) before bedtime. 180 tablet 3 12/24/2022 Active take 1 tablet by nancy th [...] July, Active montelukast 10 mg oral tablet (20 sources) Leukotriene Receptor Antagonist Start: 08-07-2022 take 1 tablet by mouth at bedtime montelukast (Singulair) 10 MG tablet Indications: Seasonal allergic rhinitis due to pollen Take 1 tablet (10 mg) by mouth at bedtime. 30 tablet 6 08/07/2022 Active 10 actuat olodaterol 0.0025 mg/actuat / tiotropium 0.0025 mg/actuat inhalation spray (20 sources) Anticholinergic, beta2-Adrenergic Agonist Start: 01-31-2024 tiotropium-olodate rol (Stiolto Respimat) 2.5-2.5 MCG/ACT aerosol solution inhaler Indications: Acute bronchitis, unspecified organism , Chronic diarrhea Inhale 2 Inhalation Daily 4 g 11 01/31/2024 Active Start: 04-26-2022 Tiotropium-Olo daterol (Stiolto Respimat) 2.5-2.5 mcg/actuation Mist Active 2 PUFF INHALATION Daily April 26, 2022 1:00am Start: 04-26-2022 Tiotropium-Olo daterol (Stiolto Respimat) 2.5-2.5 mcg/actuation Mist Active 2 PUFF INHALATION Daily April 26, 2022 12:00am Start: 11-03-2021 End: 01-31-2024 tiotropium-olodaterol (Stiol to Respimat) 2.5-2.5 MCG/ACT aerosol solution inhaler Inhale 2 Inhalation in the morning. 11/03/2021 01/31/2024 Discontinued (Reorder) tiotropium-oloda teroL (STIOLTO RESPIMAT) 2.5-2.5 mcg/actuation mist Inhale 2 puffs daily. Active Stiolto Respimat 2.5-2.5 MCG/ACT Inhalation for 30 Days Active omeprazole 40 mg delayed release oral capsule (1 source) Proton Pump Inhibitor Start: 07-20-2022 Omeprazole 40 MG 1 capsule 30 minutes before morning meal and evening meal Orally twice a day for 14 days July, Active polyethylene glycol 3350 17047 mg powder for oral solution (1 source) Osmotic Laxative Start: 05-10-2024 End: 05-13-2024 polyethylene glycol, PEG, 3350 (MiraLax) 17 GM/SCOOP powder Indications: Constipation, unspecified constipation type Take 17 g by mouth Daily for 3 days 527 g 2 05/10/2024 05/13/2024 Active polyethylene glycol 3350 [id number] mg / potassium chloride 2970 mg / sodium bicarbonate 6740 mg / sodium chloride 5860 mg / sodium sulfate 19950 mg powder for oral solution (1 source) [...] (20 sources) Nonergot Dopamine Agonist Start: 04-19-2016 rOPINIRole (Requip) 0.25 MG tablet Take 0.25 mg by mouth as needed at bedtime. 04/19/2016 Active tetracycline hydrochloride 500 mg oral capsule (1 source) Tetracycline-class Antimicrobial Start: 07-20-2022 take 1 capsule by mouth twice daily Tetracycline HCl 500 MG 1 capsule on an empty stomach Orally twice daily for 14 days July, Active 24 hr divalproex sodium 500 mg [...] 2019 12:00am April 26, 2022 3:34pm take 2 tablets by mo uth every twenty-four hours in the morning, then take 3 tablets by mouth at bedtime divalproex (Depakote ER) 500 MG 24 hr tablet Take by mouth Takes 2 tablet in the am and 3 tablets at bedtime Active take 3 tablets by mo uth [...] coma, with long-term current use of insulin ([facility]) Inject 1 mL (75 mg total) under [...] MG SUBCUT Q14D April 26, 2022 12:00am Continuous Blood Gluc Sensor (Dexcom G6 Sensor) [facility] (20 sources) Start: 01-03-2023 End: 01-20-2024 Continuous Blood Gluc Sensor (Dexcom G6 Sensor) [facility] Indications: Type 2 diabetes mellitus with peripheral neuropathy (CMS/HCC) 1 each Every 10 (ten) days. 9 each 3 01/03/2023 01/20/2024 Discontinued Start: 01-03-2023 Continuous Blo od Gluc Sensor (Dexcom G6 Sensor) [facility] Indications: Type 2 diabetes mellitus with peripheral neuropathy (CMS/HCC) 1 each Every 10 (ten) days. 9 each 3 01/03/2023 Active cyclobenzaprine hydrochloride 10 mg oral tablet (18 [...] tablets. Active take 1 tablet by nancy th every twenty-four hours Desvenlafaxine ER 100 MG 1 tablet Orally Once a day Active diazePAM 5 mg oral tablet (9 sources) Benzodiazepine Start: 08-28-2019 End: 04-21-2020 take 5 mg by mouth four times daily Diazepam Discontinued 5 MG PO Four times daily 40 10 August 28, 2019 12:00am April 21, 2020 5:12pm autmhans-zlti-SK- calcium &mins (THERAGRAN-M) 9 mg iron-400 mcg tablet (2 sources) End: 03-15-2023 [id number]-BO-calc ium &mins (THERAGRAN-M) 9 mg iron-400 mcg tablet Take 1 tablet by mouth in the morning. 0 03/15/2023 Discontinued (Therapy completed) irgnmvrz-[id number]-JG -calcium &mins (THERAGRAN-M) 9 mg iron-400 mcg [...] 2020 9:29am take 1 tablet by nancy every twelve hours pantoprazole (Protonix) 40 MG EC tablet Take 40 mg by mouth every 12 (twelve) hours. Active potassium gluconate 2.13 meq oral tablet (9 sources) Start: 07-24-2019 End: 12-02-2020 take 75 mg by mouth once daily Potassium Gluconate Discontinued 75 MG PO Daily July 24, 2019 12:00am December 02, 2020 9:29am tiotropium 0.018 mg inhalation powder (19 sources) Anticholinergic Start: 05-25-2019 End: 04-26-2022 take 1 puff(s) by inhalation once daily in the morning Tiotropium Olmitz Discontinued 1 PUFF INHALATION Every morning May 25, 2019 12:00am April 26, 2022 3:46pm Start: 05-15-2018 End: 05-25-2019 take 18 ug by inhalation once daily Tiotropium Olmitz Discontinued 18 MCG INHALATION Daily May 15, 2018 1:00am May 25, 2019 11:12am take 1 capsule by in halation once daily Spiriva HandiHaler 18 MCG 1 capsule by inhaling the contents of the capsule using the HandiHaler device Inhalation Once a day Active tiZANidine 4 mg oral tablet (20 sources) Central alpha-2 Adrenergic Agonist Start: 02-27-2023 End: 05-19-2024 take 1 tablet by mouth twice daily as needed tiZANidine (Zanaflex) 4 MG tablet Take 4 mg by mouth 2 (two) times a day as needed 02/27/2023 05/19/2024 Discontinued (Therapy completed) Problems Active Problems Problem Classification Problem Date Documented Date Episodic/Chronic Abdominal pain (11 sources) Abdominal pain; Translations: [Unspecified abdominal pain] 05-05-2024 Episodic Acquired foot deformities (20 sources) Acquired hallux valgus; Translations: [Hallux valgus (acquired), unspecified foot] Onset: 3 07-23-2022 Chronic Acute bronchitis (2 sources) Acute bronchitis; Translations: [Acute bronchitis, unspecified] 01-31-2024 Episodic Adjustment disorders (20 sources) Stress; Translations: [Reaction to severe stress, unspecified] Onset: 3 07-23-2022 Chronic Anxiety disorders (5 sources) Posttraumatic stress disorder; Translations: [Post-traumatic stress disorder, unspecified] Chronic Cataract (1 source) Combined forms of age-related cataract, bilateral; Translations: [Combined forms of age-related cataract, bilateral] Onset: 4 Chronic Chronic kidney disease (20 sources) Chronic kidney disease stage 2; Translations: [Chronic kidney disease, stage 2 (mild)] Onset: 4 04-25-2023 Chronic Chronic kidney disease (8 sources) Chronic kidney disease; Translations: [Chronic kidney disease, stage III (moderate)] Onset: 2 Resolved: 2 Chronic obstructive pulmonary disease and bronchiectasis (20 sources) Emphysematous bronchitis; Translations: [Chronic obstructive pulmonary disease, unspecified] Onset: 8 04-27-2022 Chronic Complications of surgical procedures or medical care (20 sources) Post-hysterectomy menopause; Translations: [Asymptomatic postprocedural ovarian failure] Onset: 3 07-23-2022 Chronic Diabetes mellitus with complications (20 sources) Type 2 diabetes mellitus; Translations: [Type 2 diabetes mellitus with diabetic chronic kidney disease] Onset: 1 Resolved: 4 Chronic Diabetes mellitus without complication (20 sources) Diabetes mellitus; Translations: [Type 2 diabetes mellitus without complications] Onset: 2 04-27-2022 Chronic Diseases of white blood cells (20 sources) Leukocytosis; Translations: [Elevated white blood cell count, unspecified] Onset: 3 04-22-2020 Chronic Disorders of lipid metabolism (20 sources) Hyperlipidemia; Translations: [Hyperlipidemia, unspecified] Onset: 2 07-23-2022 Chronic Esophageal disorders (20 sources) Gastroesophageal reflux disease; Translations: [Gastro-esophageal reflux disease without esophagitis] Onset: 3 04-22-2020 Chronic Essential hypertension (20 sources) Hypertensive disorder; Translations: [Essential (primary) hypertension] Onset: 2 07-23-2022 Chronic Gastritis and duodenitis (2 sources) Gastroduodenitis; Translations: [Gastritis, unspecified, without bleeding] Episodic Hepatitis (20 sources) Nonalcoholic steatohepatitis; Translations: [Nonalcoholic steatohepatitis (WICK)] Onset: 2 07-23-2022 Chronic Hypertension with complications and secondary hypertension (20 sources) Hypertensive renal disease; Translations: [Hypertensive chronic kidney disease with stage 1 through stage 4 chronic kidney disease, or unspecified chronic kidney disease] Onset: 2 Resolved: 2 Chronic Malaise and fatigue (20 sources) Fatigue; Translations: [Chronic fatigue, unspecified] Onset: 3 07-23-2022 Chronic Miscellaneous mental health disorders (4 sources) Feeling of lump in throat; Translations: [Other somatoform disorders] Chronic Mood disorders (20 sources) Bipolar affective disorder, currently depressed, moderate; Translations: [Bipolar disorder, current episode depressed, moderate] Onset: 3 07-23-2022 Chronic Mycoses (7 sources) Onychomycosis; Translations: [Tinea unguium] 04-09-2023 Episodic Noninfectious gastroenteritis (2 sources) Chronic diarrhea; Translations: [Noninfective gastroenteritis and colitis, unspecified] 01-31-2024 Episodic Nutritional deficiencies (20 sources) Vitamin D deficiency; Translations: [Vitamin D deficiency, unspecified] Onset: 2 Resolved: 2 Chronic Other acquired deformities (20 sources) Contracture of joint of left ankle; Translations: [Contracture, left ankle] Onset: 3 07-23-2022 Chronic Other acquired deformities (5 sources) Lumbar spondylolisthesis; Translations: [Spondylolisthesis, lumbar region] Episodic Other and unspecified benign neoplasm (2 sources) Benign neoplasm of parathyroid gland; Translations: [Benign neoplasm of parathyroid gland] 12-30-2023 Episodic Other connective tissue disease (7 sources) Metatarsalgia of left foot; Translations: [Metatarsalgia, left foot] 04-09-2023 Episodic Other connective tissue disease (1 source) Pain of toe of right foot; Translations: [Pain in right toe(s)] 04-09-2023 Episodic Other connective tissue disease (1 source) Pain of toe of left foot; Translations: [Pain in left toe(s)] 04-09-2023 Episodic Other connective tissue disease (1 source) Arthrodesis status; Translations: [Arthrodesis status] 10-01-2023 Episodic Other diseases of kidney and ureters (5 sources) Secondary hyperparathyroidism; Translations: [Secondary hyperparathyroidism of renal origin] Chronic Other diseases of kidney and ureters (2 sources) Abnormal renal function; Translations: [Disorder of kidney and ureter, unspecified] 12-30-2023 Episodic Other endocrine disorders (5 sources) Disorder of adrenal gland; Translations: [Disorder of adrenal gland, unspecified] Chronic Other endocrine disorders (20 sources) Adrenal mass; Translations: [Disorder of adrenal gland, unspecified] Onset: 3 07-23-2022 Chronic Other endocrine disorders (5 sources) Disorder of adrenal gland, unspecified; Translations: [Unspecified disorder of adrenal glands] Onset: 2 Resolved: 2 Chronic Other endocrine disorders (2 sources) Other specified disorders of adrenal gland; Translations: [Other specified disorders of adrenal glands] 04-25-2023 Chronic Other gastrointestinal disorders (1 source) Dysphagia, unspecified Episodic Other gastrointestinal disorders (1 source) Constipation; Translations: [Constipation, unspecified] 05-10-2024 Episodic Other hematologic conditions (2 sources) Secondary polycythemia; Translations: [SECONDARY POLYCYTHEMIA] Onset: 3 Episodic Other hereditary and degenerative nervous system conditions (20 sources) Restless legs; Translations: [Restless legs syndrome] Onset: 3 07-23-2022 Chronic Other liver diseases (20 sources) Lesion of liver; Translations: [Liver disease, unspecified] Onset: 3 07-23-2022 Chronic Other nervous system disorders (5 sources) Carpal tunnel syndrome; Translations: [Carpal tunnel syndrome, right upper limb] Chronic Other nervous system disorders (5 sources) Radial neuropathy; Translations: [Lesion of radial nerve, right upper limb] Chronic Other nervous system disorders (20 sources) Carpal tunnel syndrome of right wrist; Translations: [Carpal tunnel syndrome, right upper limb] Onset: 3 07-23-2022 Chronic Other nervous system disorders (20 sources) Right radial neuropathy; Translations: [Lesion of radial nerve, right upper limb] Onset: 3 07-23-2022 Chronic Other nervous system disorders (20 sources) Chronic pain; Translations: [Other chronic pain] Onset: 3 07-23-2022 Chronic Other nervous system disorders (1 source) Piriformis syndrome; Translations: [Lesion of sciatic nerve, left lower limb] 10-01-2023 Chronic Other nervous system disorders (1 source) Lesion of sciatic nerve, left lower limb; Translations: [Lesion of sciatic nerve] 10-01-2023 Chronic Other nervous system disorders (20 sources) Left-sided piriformis syndrome; Translations: [Lesion of sciatic nerve, left lower limb] Onset: 4 01-31-2024 Chronic Other non-traumatic joint disorders (5 sources) Pain of right wrist; Translations: [Pain in right wrist] Episodic Other nutritional; endocrine; and metabolic disorders (5 sources) Obese class I; Translations: [Body mass index (BMI) 33.0-33.9, adult] Chronic Other nutritional; endocrine; and metabolic disorders (20 sources) Hypomagnesemia; Translations: [Hypomagnesemia] Onset: 4 04-25-2023 Chronic Other nutritional; endocrine; and metabolic disorders (7 sources) Hypomagnesemia; Translations: [Disorders of magnesium metabolism] Onset: 2 Resolved: 2 Chronic Other nutritional; endocrine; and metabolic disorders (20 sources) Hypercalcemia; Translations: [Hypercalcemia] Onset: 3 04-27-2022 Chronic Other nutritional; endocrine; and metabolic disorders (11 sources) Hypercalcemia; Translations: [Hypercalcemia] Onset: 3 Chronic Other nutritional; endocrine; and metabolic disorders (2 sources) Weight decreased; Translations: [Abnormal weight loss] Episodic Other upper respiratory disease (20 sources) Allergic rhinitis; Translations: [Allergic rhinitis, unspecified] Onset: 3 07-23-2022 Chronic Other upper respiratory disease (20 sources) Seasonal allergic rhinitis; Translations: [Other seasonal allergic rhinitis] Onset: 3 07-23-2022 Chronic Other upper respiratory disease (20 sources) Allergic rhinitis due to pollen; Translations: [Allergic rhinitis due to pollen] Onset: 3 07-23-2022 Chronic Residual codes; unclassified (20 sources) Obstructive sleep apnea syndrome; Translations: [Obstructive sleep apnea (adult) (pediatric)] Onset: 3 01-21-2023 Chronic Residual codes; unclassified (5 sources) Tobacco user; Translations: [Tobacco use] Episodic Spondylosis; intervertebral disc disorders; other back problems (20 sources) Prolapsed lumbar intervertebral disc; Translations: [Other intervertebral disc displacement, lumbar region] Onset: 3 04-27-2022 Chronic Substance-related disorders (20 sources) Tobacco user; Translations: [Nicotine dependence, cigarettes, uncomplicated] Onset: 5 12-10-2022 Chronic Unclassified (1 source) CHRN KIDNEY DISEASE STG 3 UNSP; Translations: [CHRN KIDNEY DISEASE STG 3 UNSP] Onset: 3 Unclassified (1 source) Low back pain, unspecified; Translations: [Low back pain, unspecified] Onset: 4 Past or Other Problems Problem Classification Problem Date Documented Da te Episodic/Chronic Genitourinary symptoms and ill-defined conditions (20 sources) Proteinuria; Translations: [Proteinuria, unspecified] Onset: 09-14-2021 Resolved: 09-14-2021 Episodic Mood disorders (20 sources) Mood disorders Onset: 08-07-2022 Resolved: 07-01-2023 08-07-2022 Nonspecific chest pain (20 sources) Chest pain; Translations: [Chest pain, unspecified] Onset: 03-15-2023 04-02-2023 Episodic Other acquired deformities (20 sources) Acquired spondylolisthesis; Translations: [Spondylolisthesis, site unspecified] Onset: 07-23-2022 07-23-2022 Episodic Other aftercare (20 sources) Long-term current use of insulin; Translations: [senior care (current) use of insulin] Onset: 11-29-2022 Resolved: 04-02-2023 04-02-2023 Episodic Other aftercare (4 sources) Other fdc (current) drug therapy; Translations: [[employer] CURRENT DRUG THERAPY] Onset: 08-30-2021 Episodic Other connective tissue disease (20 sources) History of lumbar fusion; Translations: [Arthrodesis status] Onset: 01-31-2024 10-01-2023 Episodic Other connective tissue disease (20 sources) Trochanteric bursitis of left hip; Translations: [Trochanteric bursitis, left hip] Onset: 10-23-2023 01-31-2024 Episodic Other connective tissue disease (2 sources) Pain of toes of bilateral feet; Translations: [Pain in right toe(s)] 11-04-2023 Episodic Other connective tissue disease (1 source) Trochanteric bursitis, left hip; Translations: [Trochanteric bursitis, left hip] Onset: 10-23-2023 Episodic Other connective tissue disease (1 source) Myalgia, other site; Translations: [Myalgia, other site] Onset: 06-21-2023 Episodic Other gastrointestinal disorders (20 sources) Dysphagia; Translations: [Dysphagia, unspecified] Onset: 07-23-2022 04-22-2020 Episodic Other hematologic conditions (20 sources) Red blood cell finding; Translations: [Other abnormality of red blood cells] Onset: 07-23-2022 07-23-2022 Episodic Other nutritional; endocrine; and metabolic disorders (20 sources) Morbid obesity; Translations: [Morbid (severe) obesity due to excess calories] Onset: 07-23-2022 Resolved: 04-02-2023 04-02-2023 Chronic Other nutritional; endocrine; and metabolic disorders (20 sources) Severe obesity; Translations: [Morbid (severe) obesity due to excess calories] Onset: 07-23-2022 Resolved: 04-02-2023 04-02-2023 Chronic Other screening for suspected conditions (not mental disorders or infectious disease) (20 sources) Elevated liver enzymes level; Translations: [Other specified abnormal findings of blood chemistry] Onset: 07-23-2022 04-27-2022 Episodic Residual codes; unclassified (20 sources) Acquired absence of cervix and uterus; Translations: [Acquired absence of both cervix and uterus] Onset: 07-23-2022 07-23-2022 Episodic Spondylosis; intervertebral disc disorders; other back problems (20 sources) Acute back pain with sciatica; Translations: [Lumbago with sciatica, left side] Onset: 07-23-2022 07-23-2022 Episodic Results Test Name Value Interpretation Reference Range Facility BI MAMMOGRAM SCREENING TOMOS YNTHESIS BILATERALon 05-29-2024 BI MAMMOGRAM SCREENING TOMOSYNTHESIS BILATERAL This is a summary report. The complete report is available in the patient's medical record. If you cannot access the medical record, please contact the sending organization for a detailed fax or copy. Examination: BI MAMMOGRAM SCREENING TOMOSYNTHESIS BILATERAL Clinical History: screen Technique: Screening digital mammography study of both breasts was performed with 2-D and 3-D tomosynthesis imaging. Study was compared to the prior exam dated 04/22/2023. Findings: There is no evidence of interval dominant spiculated mass, grouped microcalcifications, or skin thickening which would be suggestive of malignancy. Mild scattered benign-appearing calcifications are noted bilaterally. Small benign-appearing asymmetric density on the right posteriorly, similar to the prior study. Axillary lymph nodes are noted on the left which appear grossly unremarkable. IMPRESSION: Impression: No specific evidence of malignancy seen in either breast. BIRADS 2 - Benign Findings DENSITY: The breasts are almost entirely fatty. FOLLOW-UP: Routine Screening Mammogram ELECTRONICALLY SIGNED BY: Baron Erickson M.D. Normal Not Available CT ABDOMEN PELVIS WO IV CONT Rosa 05-29-2024 CT ABDOMEN PELVIS WO IV CONTRAST TITLE OF EXAM: CT ABDOMEN PELVIS WO IV CONTRAST REASON FOR EXAM: Right lower quadrant pain with hematuria, constipation, diarrhea TECHNIQUE: Axial CT of the abdomen and pelvis. COMPARISON: Abdomen radiographs 05/08/2024 FINDINGS: Lung bases: No lung base nodule, consolidation, or lower thorax effusion. Heart: No acute abnormality of the visualized cardiac structures. Liver: The liver appears normal in size, shape, and attenuation. No focal hepatic lesion. Bile ducts: No intra- or extra-hepatic dilation. Gallbladder: Surgically absent. Mildly complex fluid attenuating lesion within the gallbladder fossa at the site of a surgical clip, 2.3 cm diameter, mean Hounsfield units 16. Pancreas: Normal. Spleen: No splenomegaly. Adrenals: Left adrenal nodule, 1.6 cm, mean Hounsfield units 14. Normal right adrenal gland. Kidneys/Ureters/Urinary Bladder: Kidneys and ureters appear normal. No hydroureteronephrosis. No nephroureterolithiasis. Urinary bladder is thin walled and partially distended. Reproductive organs: No adnexal mass. GI tract/Mesentery: There is no dilation, focal stenosis, or wall thickening. No evidence of obstruction. Physiologic quantity and distribution of bowel gas and colonic stool. Normal appendix. Peritoneum: No ascites. No pneumoperitoneum. Retroperitoneum: There is no significant retroperitoneal lymphadenopathy in the abdomen. Vasculature: No AAA or focal stenosis. Minimal nonconcentric calcific arteriosclerosis of the abdominal aorta and iliac arteries. Bones and soft tissues: No concerning focal osseous lesion. No acute osseous abnormality or dislocation. No focal soft tissue abnormality. IMPRESSION: 1. Mildly complex fluid attenuating lesion within the gallbladder fossa with an internal surgical clip, favored a small postoperative benign cystic collection or tiny biloma. No complex features. 2. Nonspecific left adrenal nodule, 1.6 cm. Per ACR criteria based on size, consider 12-month follow-up adrenal protocol CT. 3. No specific findings to explain the patient's reported right lower quadrant pain and hematuria. Specifically, the urologic structures and appendix are normal. Normal volume and distribution of colonic stool. DICTATED ON: 05/29/2024 1:57 PM This report has been electronically signed in approved by the interpreting radiologist. Normal Not Available CBC W Auto Differential pane l (Bld)on 05-08-2024 Basophils (Bld) [#/Vol] 51 10*3/uL [place] [facility] Basophils/100 WBC (Bld) 0.4 % N [facility] Eosinophils (Bld) [#/Vol] 115 10*3/uL [facility] Eosinophils/100 WBC (Bld) 0.9 % [facility] Erythrocyte distribution width (RBC) [Ratio] 13.4 % 11.0 - 15.0 % [facility] Hematocrit (Bld) [Volume fraction] 44.5 % 35.0 - 45.0 % [facility] Hemoglobin (Bld) [Mass/Vol] 14.6 g/dL 11.7 - 15.5 g/dL [facility] Interpretation and review of laboratory results Abnormal [facility] Lymphocytes (Bld) [#/Vol] 3699 10*3/uL [facility] Lymphocytes/100 WBC (Bld) 28.9 % [facility] MCH (RBC) [Entitic mass] 30.8 pg 27. 0 - 33.0 pg [facility] MCHC (RBC) [Mass/Vol] 32.8 g/dL 32.0 - 36.0 g/dL [facility] Comment on above: For adults, a slight decrease in the calculated MCHC value (in the range of 30 to 32 g/dL) is most likely not clinically significant; however, it should be interpreted with caution in correlation with other red cell parameters and the patient's clinical condition. MCV (RBC) [Entitic vol] 93.9 fL 80.0 - 100.0 fL [facility] Monocytes (Bld) [#/Vol] 666 10*3/uL [facility] Monocytes/100 WBC (Bld) 5.2 % N [facility] Neutrophils (Bld) [#/Vol] 8269 10*3/uL High [facility] Neutrophils/100 WBC (Bld) 64.6 % [facility] Platelet mean volume (Bld) [Entitic vol] 10.9 fL 7.5 - 12.5 fL [facility] Platelets (Bld) [#/Vol] 287 10*3/uL [facility] RBC (Bld) [#/Vol] 4.74 10*6/uL [facility] WBC (Bld) [#/Vol] 12.8 10*3/uL High [facility] COLLECTION KIT GIVEN TO PATIENT. PATIENT ADVISED TO RETURN. [employer] Organizat ion Information Site ID: QPT Name: [facility] Address: [address] [place] [address], [address] [place] [id number] Director: Senthil Ramsey MD [facility] XR Abdomen Single viewon Views: 5 Findings: Lumbar fusion is noted. There are surgical clips in the right upper quadrant from a cholecystectomy. There is moderate stool throughout the colon. There is no free air beneath the diaphragm. There is a normal bowel gas pattern without obstruction or ileus, and no organomegaly or abnormal calcifications. Impression: No acute radiographic findings in the abdomen. IMAGING Enio Neves MD - 05/08/2024 Views: 5 Findings: Lumbar fusion is noted. There are surgical clips in the right upper quadrant from a cholecystectomy. There is moderate stool throughout the colon. There is no free air beneath the diaphragm. There is a normal bowel gas pattern without obstruction or ileus, and no organomegaly or abnormal calcifications. Impression: No acute radiographic findings in the abdomen. [facility] XR Abdomen Single viewOrdere d By: Enio Neves on 05-08-2024 [facility] Work Phone: Laboratory - Hematology and Cell countson 05-07-2024 HbA1c (Bld) [Mass fraction] 9.1 % [facility] No Panel Informationon 05-07 [facility] XR ABDOMEN 2 VIEWon 05-07-19 XR ABDOMEN 2 VIEW Views: 5 Findings: Lumbar fusion is noted. There are surgical clips in the right upper quadrant from a cholecystectomy. There is moderate stool throughout the colon. There is no free air beneath the diaphragm. There is a normal bowel gas pattern without obstruction or ileus, and no organomegaly or abnormal calcifications. Impression: No acute radiographic findings in the abdomen. Normal Not Available XR Abdomen Single viewon Radiology Study observation (narrative) [facility] CBC W Auto Differential pane l (Bld)on 05-06-2024 Basophils (Bld) [#/Vol] 72 10*3/uL N [facility] Basophils/100 WBC (Bld) 0.5 % N [facility] Eosinophils (Bld) [#/Vol] 101 10*3/uL [facility] Eosinophils/100 WBC (Bld) 0.7 % [facility] Erythrocyte distribution width (RBC) [Ratio] 13.4 % 11.0 - 15.0 % [facility] Hematocrit (Bld) [Volume fraction] 45.4 % High 35.0 - 45.0 % [facility] Hemoglobin (Bld) [Mass/Vol] 14.8 g/dL 11.7 - 15.5 g/dL [facility] Lymphocytes (Bld) [#/Vol] 3787 10*3/uL [facility] Lymphocytes/100 WBC (Bld) 26.3 % [facility] MCH (RBC) [Entitic mass] 30 pg 27. 0 - 33.0 pg [facility] MCHC (RBC) [Mass/Vol] 32.6 g/dL 32.0 - 36.0 g/dL [facility] Comment on above: For adults, a slight decrease in the calculated MCHC value (in the range of 30 to 32 g/dL) is most likely not clinically significant; however, it should be interpreted with caution in correlation with other red cell parameters and the patient's clinical condition. MCV (RBC) [Entitic vol] 91.9 fL 80.0 - 100.0 fL [facility] Monocytes (Bld) [#/Vol] 662 10*3/uL [facility] Monocytes/100 WBC (Bld) 4.6 % N [facility] Neutrophils (Bld) [#/Vol] 9778 10*3/uL High [facility] Neutrophils/100 WBC (Bld) 67.9 % [facility] Platelet mean volume (Bld) [Entitic vol] 10.6 fL 7.5 - 12.5 fL [facility] Platelets (Bld) [#/Vol] 267 10*3/uL [facility] RBC (Bld) [#/Vol] 4.94 10*6/uL [facility] WBC (Bld) [#/Vol] 14.4 10*3/uL High [facility] Laboratory - Chemistry and C hemistry - challengeon 05-06-2024 Albumin [Mass/Vol] 4 g/dL 3.6 - 5.1 g/dL [facility] Albumin/Globulin [Mass ratio] 1.5 {ratio} [facility] ALP [Catalytic activity/Vol] 50 U/L 37 - 153 U/L [facility] ALT [Catalytic activity/Vol] 16 U/L 6 - 29 U/L [facility] Amylase [Catalytic activity/Vol] 17 U/L Low 21 - 101 U/L [facility] AST [Catalytic activity/Vol] 11 U/L 10 - 35 U/L [facility] Bilirubin [Mass/Vol] 0.3 mg/dL 0.2 - 1 .2 mg/dL [facility] Calcium [Mass/Vol] 9.9 mg/dL 8.6 - 10. 4 mg/dL [facility] Chloride [Moles/Vol] 102 mmol/L 98 - 11 0 mmol/L [facility] CO2 [Moles/Vol] 27 mmol/L 20 - 32 mmol/L [facility] Creatinine [Mass/Vol] 1.06 mg/dL High 0.50 - 1.03 mg/dL [facility] GFR/1.73 sq M.predicted among non-blacks MDRD (S/P/Bld) [Vol rate/Area] 63 mL/min/{1.73_m2} > OR = 60 mL/min/1.7 3m2 [facility] Globulin (S) [Mass/Vol] 2.6 g/dL N [facility] Glucose [Mass/Vol] 175 mg/dL High 65 - 99 mg/dL [facility] Comment on above: Fasting reference interval For someone without known diabetes, a glucose value >125 mg/dL indicates that they may have diabetes and this should be confirmed with a follow-up test. Potassium [Moles/Vol] 4.3 mmol/L 3.5 - 5.3 mmol/L [facility] Protein [Mass/Vol] 6.6 g/dL 6.1 - 8.1 g/dL [facility] Sodium [Moles/Vol] 140 mmol/L 135 - 146 mmol/L [facility] Urea nitrogen [Mass/Vol] 20 mg/dL 7 - 25 mg/dL [facility] Urea nitrogen/Creatinine [Mass ratio] 19 mg/mg [facility] No Panel Informationon 05-06 Interpretation and review of laboratory results Abnormal [facility] Performing Organizat ion Information Site ID: QPT Name: [facility] Address: [address] [place] [phone] Director: Senthil Ramsey MD [facility] Glucose Glucometer (BldC) [M ass/Vol]on 04-24-2024 Glucose [Mass/Vol] 200 mg/dL High 65-99 [facility] HbA1c (Bld) [Mass fraction]o n 01-20-2024 Interpretation and review of laboratory results Abnormal [facility] Laboratory - Hematology and Cell countson 01-20-2024 HbA1c (Bld) [Mass fraction] 9.8 % [facility] DEPAKENE/ VALPROIC ACIDo n 2023 Interpretation and review of laboratory results Abnormal [facility] VALPROIC ACID 27.3 ug/mL Low 50.0 - 100.0 ug/mL [facility] Erythrocyte distribution wid th Auto (RBC) [Ratio]on 11-13-2023 Erythrocyte distribution width (RBC) [Ratio] 13.2 % 11.0-15.0 [facility] Estimated glomerular filtrat ion rate (GFR) non- Americanon 11-13-2023 GFR/1.73 sq M.predicted among non-blacks MDRD (S/P/Bld) [Vol rate/Area] 55 mL/min/{1.73_m2} Low >=60 [facility] CBC WITH PLATELET NO DI FFERENTIALon 11-13-2023 Erythrocyte distribution width (RBC) [Ratio] 13.2 % 11.0 - 15.0 % [facility] Hematocrit (Bld) [Volume fraction] 46.7 % 36.0 - 48.0 % [facility] Hemoglobin (Bld) [Mass/Vol] 15.6 g/dL 12.0 - 16.0 g/dL [facility] Interpretation and review of laboratory results Abnormal [facility] MCH (RBC) [Entitic mass] 30.4 pg 26. 7 - 34.0 pg [facility] MCHC (RBC) [Mass/Vol] 33.4 g/dL 29.9 - 35.2 g/dL [facility] MCV (RBC) [Entitic vol] 91.0 fL 81.0 - 99.0 fL [facility] Platelet mean volume (Bld) [Entitic vol] 10.9 fL 9.5 - 13.5 fL [facility] PLT 259 [facility] RBC 5.13 [facility] WBC 11.8 High [facility] Hematocrit Auto (Bld) [Volum e fraction]on 11-13-2023 Hematocrit (Bld) [Volume fraction] 46.7 % 36.0-48.0 [facility] Hemoglobin [Mass/volume] in Bloodon 11-13-2023 Hemoglobin (Bld) [Mass/Vol] 15.6 g/dL 12.0-16.0 [facility] Laboratory - Chemistry and C hemistry - challengeon 11-13-2023 Albumin [Mass/Vol] 3.1 g/dL Low 3.4-5.0 [facility] Calcium [Mass/Vol] 9.7 mg/dL 8.5-10.1 [facility] Chloride [Moles/Vol] 102 mmol/L 98-107 [facility] CO2 [Moles/Vol] 29.3 mmol/L 21.0-32.0 [facility] Creatinine [Mass/Vol] 1.05 mg/dL High 0.55-1.02 [facility] GFR/1.73 sq M.predicted MDRD (S/P/Bld) [Vol rate/Area] mL/min/{1.73_m2} >=60 [facility] Glucose [Mass/Vol] 120 mg/dL High 74-106 [facility] Magnesium [Mass/Vol] 1.5 mg/dL Low 1.8-2.4 [facility] Potassium [Moles/Vol] 3.7 mmol/L 3.5-5.1 [facility] Sodium [Moles/Vol] 143 mmol/L 136-145 [facility] Urate [Mass/Vol] 7.5 mg/dL High 2.6-6.0 [facility] Urea nitrogen [Mass/Vol] 17.0 mg/dL 7.0-18.0 [facility] Urea nitrogen/Creatinine [Mass ratio] 16.2 mg/mg [facility] Bilirubin Ql (U) Negative NEGATIVE [facility] Glucose (U) [Mass/Vol] Negative NEGATIVE [facility] Ketones Ql (U) Negative NEGATIVE [facility] pH (U) 5.5 [pH] 5.0-9.0 [facility] Specific gravity (U) [Rel density] >=1.030 Abnormal 1.005-1.02 5 [facility] Urobilinogen Qn (U) 0.2 {Jennifer'U}/dL 0.2-1.0 [facility] Laboratory - Specimen inform ationon 11-13-2023 Appearance (U) CLEAR CLEAR [facility] Color (U) YELLOW YELLOW [facility] Laboratory - Urinalysison Leukocyte esterase Test strip Ql (U) Negative NEGATIVE [facility] Mucus Ql (Urine sed) SMALL Abnormal NONE SEEN [facility] Nitrite Ql (U) Negative NEGATIVE [facility] Protein (U) [Mass/Vol] 725.5 mg/dL High <=11.9 [facility] Protein Ql (U) >=300 mg/dL Abnormal NEG/TRACE [facility] Leukocytes [#/volume] correc kaykay for nucleated erythrocytes in Blood by Automated counon 11-13-2023 WBC corrected for nucl RBC Auto (Bld) [#/Vol] 11.8 10 3/uL High 4.0-11.0 [facility] MCH Auto (RBC) [Entitic mass ]on 11-13-2023 MCH (RBC) [Entitic mass] 30.4 pg 26.7-34.0 [facility] MCHC Auto (RBC) [Mass/Vol]on 11-13-2023 MCHC (RBC) [Mass/Vol] 33.4 g/dL 29.9-35.2 [facility] MCV Auto (RBC) [Entitic vol] on 11-13-2023 MCV (RBC) [Entitic vol] 91.0 fL 81.0-99.0 [facility] No Panel Informationon 11-12 Parathyroid Hormone (Intact) 25 pg/mL 15-65 [facility] Comment on above: Performed at: [facility] [id number] Director: Duke Peguero PhD, Phone: [phone] Phosphorus Level 3.8 mg/dL 2.6-4.7 [facility] Urine Bacteria SMALL #/HPF Abnormal NONE SEEN [facility] Urine Occult Blood MODERATE Abnormal NEGATIVE [facility] Urine Other Casts NONE SEEN #/LPF NONE SEEN [facility] Urine Other Crystals None Seen #/HPF None Seen [facility] Urine Random Creatinine 356.96 mg/dL High 20.0 0-300. 00 [facility] Urine RBC 2-5 #/HPF Abnormal 0-2 [facility] Urine Squamous Epithelial Cells MODERATE #/LPF Abnormal NONE/RARE [facility] Urine WBC 0-2 #/HPF Abnormal NONE SEEN [facility] Platelet mean volume Auto (B ld) [Entitic vol]on 11-13-2023 Platelet mean volume (Bld) [Entitic vol] 10.9 fL 9.5-13.5 [facility] Platelets Auto (Bld) [#/Vol] on 11-13-2023 Platelets (Bld) [#/Vol] 259 10 3/uL 150-450 [facility] RBC Auto (Bld) [#/Vol]on RBC (Bld) [#/Vol] 5.13 10 6/uL 4.20-5.40 [facility] Serum or plasma anion gap de terminationon 11-13-2023 Anion gap [Moles/Vol] 15.4 mmol/L [facility] Urine protein/creatinine rat ioon 11-13-2023 Protein/Creatinine (U) [Ratio] 2.03 [facility] XR lumbar spine 6V w bending on 09-30-2023 XR lumbar spine 6V w bending [facility] [place] [address] XRay Report Signed Patient: Radha Jones MR#: [id number] : 1970 Acct:[id number] Age/Sex: 52 / F ADM Date: 09/30/23 Loc: XD Room: Type: [facility] Attending Dr: Jeovanny Mendes MD Copies to: [...] Jenaro Stockton M.D.09/30/2023 3:31 PM Dictation Location: [place] [address] Transcribed By: [facility] 09/30/23 1531 Dictated By: Jenaro Stockton DO 09/30/23 1530 Signed By: 09/30/23 1531 Normal [facility] Glucose Glucometer (BldC) [M ass/Vol]on 09-27-2023 Glucose [Mass/Vol] 170 mg/dL High 65-99 [facility] Glucose Glucometer (BldC) [M ass/Vol]on 08-09-2023 Glucose [Mass/Vol] 150 mg/dL High 65-99 [facility] POCT EKGOrdered By: Mary Kay Finley on 03-15-[address] [facility] Creatinine (Bld) [Mass/Vol]O rdered By: Peyton Hoskins on 07-25-2022 Creatinine [Mass/Vol] 1.0 mg/dL 0.6-1.3 [facility] Comment on above: ER/ESD physician is notified/shown all ISTAT results.Critical values may be confirmed by laboratory testing ifdeemed necessary by ER attending doctor. Creatinine [Mass/volume] in Serum or PlasmaOrdered By: Peyton Hoskins on 07-25-2022 Creatinine [Mass/Vol] 0.95 mg/dL 0.60-1.20 [facility] No Panel InformationOrdered By: Peyton Hoskins on 07-25-2022 Estimated GFR (CKD-EPI) > 60.0 mL/Min [facility] Creatinine Clearance (Chem N/A [facility] Urea nitrogen [Mass/volume] in Serum or PlasmaOrdered By: Peyton Hoskins on 07-25-2022 Urea nitrogen [Mass/Vol] 17 mg/dL 7-25 [facility] CALCIUM 24 HR URINEon 2022 CALC, 24 HR UR 202.8 mg/24 hr Normal 100.0-300. 0 [facility] Comment on above: Performed By: #### C [id number] #### [facility] [address] [place] [address] Dr. Tyree Botello UR CALCIUM 15.6 mg/dL Normal 5.1-21.0 [facility] Comment on above: Performed By: #### C [id number] #### [facility] [address] [place] [address] Dr. Tyree Botello UR TOT VOL 1300 ml/24 HR Normal [facility] Comment on above: Performed By: #### C [id number] #### [facility] [address] [place] [address] Dr. Tyree Botello MAGNESIUMon 07-18-2022 Magnesium [Mass/Vol] 1.4 mg/dL Critically low 1.8-2.4 [facility] Comment on above: Performed By: #### M G, RENAL, URIC #### [facility] [address] [place] [address] Dr. Tyree Botello RENAL FUNCTION PANELon 07-18 Albumin [Mass/Vol] 3.1 g/dL Critically low 3.4-5.0 [facility] Comment on above: Performed By: #### M G, RENAL, URIC #### [facility] [address] [place] [address] Dr. Tyree Botello Calcium [Mass/Vol] 9.7 mg/dL Normal 8.5-10.1 [facility] Comment on above: Performed By: #### M G, RENAL, URIC #### [facility] [address] [place] [address] Dr. Tyree Botello Chloride [Moles/Vol] 102 mmol/L Normal 98-107 [facility] Comment on above: Performed By: #### M G, RENAL, URIC #### [facility] [address] [place] [address] Dr. Tyree Botello CO2 [Moles/Vol] 26.1 mmol/L Normal 21.0-32.0 [facility] Comment on above: Performed By: #### M G, RENAL, URIC #### [facility] [address] [address] [address] Tyree Botello Creatinine [Mass/Vol] 1.13 mg/dL Critically high 0.55-1.02 [facility] Comment on above: Performed By: #### M G, RENAL, URIC #### [facility] [address] [place] [address] [address] Tyree Botello EGFR-AF SLOVAK >60 Normal >=60 [facility] Comment on above: Performed By: #### M Quniton, RENAL, URIC #### [facility] [address] [place] [address] Dr. Tyree Botello EGFR-NON AF SLOVAK 51 mL/min/1.73m2 Critically low >=60 [facility] Comment on above: Performed By: #### M Quinton, RENAL, URIC #### [facility] [address] [place] [address] Dr. Tyree Botello Glucose [Mass/Vol] 355 mg/dL Critically high 74-106 [facility] Comment on above: Performed By: #### M G, RENAL, URIC #### [facility] [address] [place] [address] Dr. Tyree Botello Phosphate [Mass/Vol] 3.4 mg/dL Normal 2.6-4.7 [facility] Comment on above: Performed By: #### M G, RENAL, URIC #### [facility] [address] [place] [address] Dr. Tyree Botello Potassium [Moles/Vol] 4.3 mmol/L Normal 3.5-5.[address] [facility] Comment on above: Performed By: #### M G, RENAL, URIC #### [facility] [address] [place] [address] [address] Tyree Botello Sodium [Moles/Vol] 138 mmol/L Normal 136-145 [facility] Comment on above: Performed By: #### M G, RENAL, URIC #### [facility] [address] [place] [address] Dr. Tyree Botello Urea nitrogen [Mass/Vol] 16.0 mg/dL Normal 7.0-18.0 [facility] Comment on above: Performed By: #### M G, RENAL, URIC #### [facility] [address] [place] [address] Dr. Tyree Botello PTH INTACTon 07-03-2022 PTH, Intact 16 pg/mL Normal 15-65 [facility] Comment on above: Performed By: #### M G, RENAL, URIC #### [facility] [address] [place] [address] Dr. Tyree Botello HEMOGRAM AND PLATELon 2022 Hematocrit (Bld) [Volume fraction] 44.5 % Normal 36.0-48.0 [facility] Comment on above: Performed By: #### M G, RENAL, URIC #### [facility] [address] [place] [address] Dr. Tyree Botello Hemoglobin (Bld) [Mass/Vol] 15.0 g/dL Normal 12.0-16.0 [facility] Comment on above: Performed By: #### M G, RENAL, URIC #### [facility] [address] [place] [address] Dr. Tyree Botello MCH (RBC) [Entitic mass] 30.2 pg Normal 26.7-34.0 [facility] Comment on above: Performed By: #### M G, RENAL, URIC #### [facility] [address] [place] [address] Dr. Tyree Botello MCHC (RBC) [Mass/Vol] 33.7 g/dL Normal 29.9-35.2 [facility] Comment on above: Performed By: #### M G, RENAL, URIC #### [facility] [address] [place] [address] Dr. Tyree Botello MCV (RBC) [Entitic vol] 89.5 fL Normal 81.0-99.[address] [facility] Comment on above: Performed By: #### M G, RENAL, URIC #### [facility] [address] [address] [address] Tyree Botello PLT 263 103/ul Normal 150-[address] [facility] Comment on above: Performed By: #### M G, RENAL, URIC #### [facility] [address] [place] [address] [address] Tyree Botello RBC 4.97 106/ul Normal 4.20-5.40 [facility] Comment on above: Performed By: #### M G, RENAL, URIC #### [facility] [address] [place] [address] [address] Tyree Botello WBC 12.0 103/ul Critically high 4.0-11.0 [facility] Comment on above: Performed By: #### M G, RENAL, URIC #### [facility] [address] [place] [address] Dr. Tyree Botello MAGNESIUMon 07-02-2022 Magnesium [Mass/Vol] 1.2 mg/dL Critically low 1.8-2.4 [facility] Comment on above: Performed By: #### M G, RENAL, URIC #### [facility] [address] [place] [address] Dr. Tyree Botello RENAL FUNCTION PANELon 07-02 Albumin [Mass/Vol] 3.1 g/dL Critically low 3.4-5.0 [facility] Comment on above: Performed By: #### M G, RENAL, URIC #### [facility] [address] [place] [address] [address] Tyree Botello Calcium [Mass/Vol] 9.7 mg/dL Normal 8.5-10.[address] [facility] Comment on above: Performed By: #### M G, RENAL, URIC #### [facility] [address] [place] [address] [address] Tyree Botello Chloride [Moles/Vol] 104 mmol/L Normal 98-[address] [facility] Comment on above: Performed By: #### M G, RENAL, URIC #### [facility] [address] [place] [address] [address] Tyree Botello CO2 [Moles/Vol] 28.6 mmol/L Normal 21.0-32.0 [facility] Comment on above: Performed By: #### M G, RENAL, URIC #### [facility] [address] [place] [address] [address] Tyree Botello Creatinine [Mass/Vol] 0.95 mg/dL Normal 0.55-1.02 [facility] Comment on above: Performed By: #### M G, RENAL, URIC #### [facility] [address] [address] [address] Tyree Botello EGFR-AF SLOVAK >60 Normal >=60 [facility] Comment on above: Performed By: #### M G, RENAL, URIC #### [facility] [address] [place] [address] [address] Tyree Botello EGFR-NON AF SLOVAK >60 Normal >=60 [facility] Comment on above: Performed By: #### M G, RENAL, URIC #### [facility] [address] [address] [address] Tyree Botello Glucose [Mass/Vol] 148 mg/dL Critically high 74-[address] [facility] Comment on above: Performed By: #### M G, RENAL, URIC #### [facility] [address] [address] [address] Tyree Botello Phosphate [Mass/Vol] 3.6 mg/dL Normal 2.6-4.7 [facility] Comment on above: Performed By: #### M G, RENAL, URIC #### [facility] [address] [address] [address] Tyree Botello Potassium [Moles/Vol] 4.2 mmol/L Normal 3.5-5.1 [facility] Comment on above: Performed By: #### M G, RENAL, URIC #### [facility] [address] [address] [address] Tyree Botello Sodium [Moles/Vol] 143 mmol/L Normal 136-145 [facility] Comment on above: Performed By: #### M G, RENAL, URIC #### [facility] [address] [address] [address] Tyree Botello Urea nitrogen [Mass/Vol] 14.0 mg/dL Normal 7.0-18.[address] [facility] Comment on above: Performed By: #### M G, RENAL, URIC #### [facility] [address] [place] [address] Dr. Tyree Botello UA RANDOM W/MICROSCOPICon BACTERIA NONE SEEN Normal NONE SEEN [facility] Comment on above: Performed By: #### M G, RENAL, URIC #### [facility] [address] [place] [address] Dr. Tyree Botello Bilirubin Ql (U) Negative Normal NEGATIVE [facility] Comment on above: Performed By: #### M G, RENAL, URIC #### [facility] [address] [place] [address] Dr. Tyree Botello CAST SEEN Abnormal NONE SEEN [facility] Comment on above: Performed By: #### M G, RENAL, URIC #### [facility] [address] [place] [address] Dr. Tyree Botello Clarity (U) CLEAR Normal CLEAR [facility] Comment on above: Performed By: #### M G, RENAL, URIC #### [facility] [address] [place] [address] Dr. Tyree Botello Color (U) LT. YELLOW Normal YELLOW [facility] Comment on above: Performed By: #### M G, RENAL, URIC #### [facility] [address] [place] [address] Dr. Tyree Botello Crystals LM Nom (Urine sed) NONE SEEN Normal NONE SEEN [facility] Comment on above: Performed By: #### M G, RENAL, URIC #### [facility] [address] [place] [address] Dr. Tyree Botello Epithelial cells LM Ql (Urine sed) FEW Abnormal NONE SEEN /RARE [facility] Comment on above: Performed By: #### M G, RENAL, URIC #### [facility] [address] [place] [address] Dr. Tyree Botello Glucose Ql (U) Negative Normal NEGATIVE [facility] Comment on above: Performed By: #### M G, RENAL, URIC #### [facility] [address] [address] [address] Tyree Botello Hemoglobin Ql (U) SMALL Abnormal NEGATIVE [facility] Comment on above: Performed By: #### M G, RENAL, URIC #### [facility] [address] [address] [address] Tyree Botello Ketones Ql (U) Negative Normal NEGATIVE [facility] Comment on above: Performed By: #### M G, RENAL, URIC #### [facility] [address] [address] [address] Tyree Botello LEUKOCYTES Negative Normal NEGATIVE [facility] Comment on above: Performed By: #### M G, RENAL, URIC #### [facility] [address] [address] [address] Tyree Botello MUCOUS NONE SEEN Normal NONE SEEN [facility] Comment on above: Performed By: #### M G, RENAL, URIC #### [facility] [address] [place] [address] Dr. Tyree Botello Nitrite Ql (U) Negative Normal NEGATIVE [facility] Comment on above: Performed By: #### M G, RENAL, URIC #### [facility] [address] [address] [address] Tyree Botello pH (U) 5.0 [pH] Normal 5-9 [facility] Comment on above: Performed By: #### M G, RENAL, URIC #### [facility] [address] [address] [address] Tyree Botello RBC 0-2 Normal 0-[address] [facility] Comment on above: Performed By: #### M G, RENAL, URIC #### [facility] [address] [address] [address] Tyree Botello SPEC GRAVITY >=1.030 Abnormal 1.005-<=1. 025 [facility] Comment on above: Performed By: #### M G, RENAL, URIC #### [facility] [address] [address] [address] Tyree Botello UA PROTEIN >300 Abnormal NEGATIVE/ TRACE [facility] Comment on above: Performed By: #### M G, RENAL, URIC #### [facility] [address] [address] [address] Tyree Botello Urobilinogen Qn (U) 0.2 {Jennifer'U}/dL Normal 0.2 - 1. 0 [facility] Comment on above: Performed By: #### M G, RENAL, URIC #### [facility] [address] [address] [address] Tyree Botello WBC 0-2 Abnormal NONE SEEN [facility] Comment on above: Performed By: #### M G, RENAL, URIC #### [facility] [address] [address] [address] Tyree Botello URIC ACID SERUMon 07-02-2022 Urate [Mass/Vol] 5.8 mg/dL Normal 2.6-6.0 [facility] Comment on above: Performed By: #### M G, RENAL, URIC #### [facility] [address] [place] [address] Dr. Tyree Botello VITAMIN D 25 OHon 07-02-2022 VIT D 25-OH 39.2 ng/mL Normal [facility] Comment on above: Performed By: #### M G, RENAL, URIC #### [facility] [address] [address] [address] Tyree Botello VIT D RANGES SEE BELOW Normal [facility] Comment on above: Result Comment: <20 ng/mL Vit D deficient 20 - <30 ng/mL Vit D insufficient 30 - 100 ng/mL Vit D sufficient >100 ng/mL Potential Toxicity Performed By: #### M G, RENAL, URIC #### [facility] [address] [place] [address] Dr. Tyree Botello Albumin [Mass/volume] in Bod y fluidOrdered By: Isela Downs on 04-27-2022 Albumin (Body fld) [Mass/Vol] 3.6 g/dL 3.2-5.5 [facility] Albumin [Mass/volume] in Ser um or PlasmaOrdered By: Isela Downs on 04-27-2022 Albumin [Mass/Vol] 3.4 g/dL 2.9-4.4 [facility] Albumin/Protein.total in 24 hour Urine by ElectrophoresisOrdered By: Isela Downs on 04-27-2022 Albumin Elph (24H U) [Mass fraction] 77.3 % . [facility] Alkaline phosphatase [Enzyma tic activity/volume] in Serum or PlasmaOrdered By: Isela Downs on 04-27-2022 ALP [Catalytic activity/Vol] 57 U/L 32-92 [facility] Aspartate aminotransferase [ Enzymatic activity/volume] in Serum or PlasmaOrdered By: Isela Downs on 04-27-2022 AST [Catalytic activity/Vol] 26 U/L 10-42 [facility] Basophils Auto (Bld) [#/Vol] Ordered By: Isela Downs on 04-27-2022 Basophils (Bld) [#/Vol] 0.1 10*3/uL 0.0-0.2 [facility] Basophils/100 WBC Auto (Bld) Ordered By: Isela Downs on 04-27-2022 Basophils/100 WBC (Bld) 0.9 % . [facility] Bilirubin.total [Mass/volume ] in Serum or PlasmaOrdered By: Isela Downs on 04-27-2022 Bilirubin [Mass/Vol] 0.4 mg/dL 0.3-1.2 [facility] Calcium [Mass/volume] in Ser um or PlasmaOrdered By: Isela Downs on 04-27-2022 Calcium [Mass/Vol] 9.6 mg/dL 8.2-10.2 [facility] Carbon dioxide, total [Moles /volume] in Serum or PlasmaOrdered By: Isela Downs on 04-27-2022 CO2 [Moles/Vol] 20.1 mmol/L 22.0-30.0 [facility] Chloride [Moles/volume] in S mary ann or PlasmaOrdered By: Isela Downs on 04-27-2022 Chloride [Moles/Vol] 101 mmol/L 95-114 [facility] Creatinine and Glomerular fi ltration rate.predicted panel (S/P/Bld)Ordered By: Isela Downs on 04-27-2022 Creatinine [Mass/Vol] 0.90 mg/dL 0.44-1.03 [facility] Eosinophils Auto (Bld) [#/Vo l]Ordered By: Isela Downs on 04-27-2022 Eosinophils (Bld) [#/Vol] 0.2 10*3/uL 0.0-0.45 [facility] Eosinophils/100 WBC Auto (Bl d)Ordered By: Isela Downs on 04-27-2022 Eosinophils/100 WBC (Bld) 1.5 % . [facility] Erythrocyte distribution wid th Auto (RBC) [Ratio]Ordered By: Isela Downs on 04-27-2022 Erythrocyte distribution width (RBC) [Ratio] 13.3 % 11.9-15.3 [facility] Estimated glomerular filtrat ion rate (GFR) non- AmericanOrdered By: Isela Downs on 04-27-2022 GFR/1.73 sq M.predicted among non-blacks MDRD (S/P/Bld) [Vol rate/Area] > 60 mL/Min [facility] Gamma globulin/Protein.total in 24 hour Urine by ElectrophoresisOrdered By: Isela Downs on 04-27-2022 Gamma globulin Elph (24H U) [Mass fraction] 3.7 % . [facility] Globulin Calc (S) [Mass/Vol] Ordered By: Isela Downs on 04-27-2022 Globulin (S) [Mass/Vol] 3.3 g/dL [facility] Glucose [Mass/volume] in Ser um or PlasmaOrdered By: Isela Downs on 04-27-2022 Glucose [Mass/Vol] 327 mg/dL 70-100 [facility] Comment on above: ADA recommended refe rence rangeRandom Glucose Reference Range is dependent on time and content of last meal. Glucose of more than 200 mg/dL in a nonstressed, ambulatory subject supports the diagnosis of Diabetes Mellitus. Hematocrit Auto (Bld) [Volum e fraction]Ordered By: Isela Downs on 04-27-2022 Hematocrit (Bld) [Volume fraction] 45.4 % 34.0-46.4 [facility] Hemoglobin [Mass/volume] in BloodOrdered By: Isela Downs on 04-27-2022 Hemoglobin (Bld) [Mass/Vol] 15.2 g/dL 11.8-15.4 [facility] Immunoglobulin light chains. kappa.free [Mass/volume] in SerumOrdered By: Isela Downs on 04-27-2022 Immunoglobulin light chains.kappa.free (S) [Mass/Vol] 25.4 mg/L 3.3-19.4 [facility] Immunoglobulin light chains. kappa.free/Immunoglobulin light chains.lambda.free [MassOrdered By: Isela Downs on 04-27-2022 Immunoglobulin light chains.kappa.free/Immuno globulin light chains.lambda.free (S) [Mass ratio] 1.62 0.26-1.65 [facility] Comment on above: Performed at: [address] [id number] Director: Duke Peguero PhD, Phone: [phone] Immunoglobulin light chains. lambda.free [Mass/volume] in Serum or PlasmaOrdered By: Isela Downs on 04-27-2022 Immunoglobulin light chains.lambda.free [Mass/Vol] 15.7 mg/L 5.7-26.3 [facility] Leukocytes [#/volume] correc kaykay for nucleated erythrocytes in Blood by Automated counOrdered By: Isela Downs on 04-27-2022 WBC corrected for nucl RBC Auto (Bld) [#/Vol] 11.3 10*3/uL 3.8-11.6 [facility] Lymphocytes Auto (Bld) [#/Vo l]Ordered By: Isela Downs on 04-27-2022 Lymphocytes (Bld) [#/Vol] 3.6 10*3/uL 1.00-4.8 [facility] Lymphocytes/100 WBC Auto (Bl d)Ordered By: Isela Downs on 04-27-2022 Lymphocytes/100 WBC (Bld) 31.7 % . [facility] MCH Auto (RBC) [Entitic mass ]Ordered By: Isela Downs on 04-27-2022 MCH (RBC) [Entitic mass] 30.0 pg 24.7-34.3 [facility] MCHC Auto (RBC) [Mass/Vol]Or dered By: Isela Downs on 04-27-2022 MCHC (RBC) [Mass/Vol] 33.5 g/dL 32.0-35.0 [facility] MCV Auto (RBC) [Entitic vol] Ordered By: Isela Downs on 04-27-2022 MCV (RBC) [Entitic vol] 89.6 fL 80-100 [facility] Monocytes Auto (Bld) [#/Vol] Ordered By: Isela Downs on 04-27-2022 Monocytes (Bld) [#/Vol] 0.5 10*3/uL 0.0-0.8 [facility] Monocytes/100 WBC Auto (Bld) Ordered By: Isela Downs on 04-27-2022 Monocytes/100 WBC (Bld) 4.8 % . [facility] Neutrophils Auto (Bld) [#/Vo l]Ordered By: Isela Downs on 04-27-2022 Neutrophils (Bld) [#/Vol] 6.9 10*3/uL 1.8-7.7 [facility] Neutrophils/100 WBC Auto (Bl d)Ordered By: Isela Downs on 04-27-2022 Neutrophils/100 WBC (Bld) 61.1 % . [facility] No Panel InformationOrdered By: Isela Downs on 04-27-2022 Urine Random Prot Electrophor Note See comment . [facility] Comment on above: Protein electrophore sis scan will follow via computer,mail, or nipple machine operator delivery.Performed at: [facility] [place], [place] [id number] Director: Duke Peguero PhD, Phone: [phone] Estimated GFR () > 60 mL/Min [facility] Comment on above: GFR estimated refere nce range: According to KDOQI guidelines, <60 ml/min/1.73m2 is sufficient to diagnose a patient with chronic kidney disease. Pharmacy Creatinine Clearance (Chem 83.02 [facility] Protein Electrophoresis M-Sarthak Not observed g/dL Not Observed [facility] Protein Electrophoresis Note See comment . [facility] Comment on above: Protein electrophore sis scan will follow via computer,mail, or nipple machine operator delivery.Performed at: [employer] [place], [place] [id number] Director: Duke Peguero PhD, Phone: [phone] Nucleated erythrocytes [Pres ence] in Blood by Automated countOrdered By: Isela Downs on 04-27-2022 Nucleated RBC Auto Ql (Bld) 0.1 /100{WBC} 0-0.5 [facility] Platelet mean volume Auto (B ld) [Entitic vol]Ordered By: Isela Downs on 04-27-2022 Platelet mean volume (Bld) [Entitic vol] 9.5 fL 6.3-10.7 [facility] Platelets Auto (Bld) [#/Vol] Ordered By: Isela Downs on 04-27-2022 Platelets (Bld) [#/Vol] 257 10*3/uL 150-450 [facility] Potassium [Moles/volume] in Serum or PlasmaOrdered By: Isela Downs on 04-27-2022 Potassium [Moles/Vol] 4.3 mmol/L 3.5-5.1 [facility] Protein [Mass/volume] in Ser um or PlasmaOrdered By: Isela Downs on 04-27-2022 Protein [Mass/Vol] 6.9 g/dL 6.1-7.9 [facility] Protein [Mass/Vol] 6.8 g/dL 6.0-8.5 [facility] Protein [Mass/volume] in Uri neOrdered By: Isela Downs on 04-27-2022 Protein (U) [Mass/Vol] 183.6 mg/dL Not Estab. [facility] Protein.monoclonal/Protein.t otal in 24 hour Urine by ElectrophoresisOrdered By: Isela Downs on 04-27-2022 Protein.monoclonal Elph (24H U) [Mass fraction] Not observed % Not Observed [facility] RBC Auto (Bld) [#/Vol]Ordere d By: Isela Downs on 04-27-2022 RBC (Bld) [#/Vol] 5.07 10*6/uL 3.60-5.00 [facility] Serum globulin measurement ( mass/volume)Ordered By: Isela Downs on 04-27-2022 Globulin (S) [Mass/Vol] 3.4 g/dL 2.2-3.9 [facility] Serum or plasma alanine barroso otransferase measurement without P-5'-P (enzymatic activiOrdered By: Isela Downs on 04-27-2022 ALT No additional P-5'-P [Catalytic activity/Vol] 36 U/L 10-60 [facility] Serum or plasma albumin/glob ulin mass ratioOrdered By: Isela Downs on 04-27-2022 Albumin/Globulin [Mass ratio] 1.1 {ratio} [facility] Albumin/Globulin [Mass ratio] 1.0 {ratio} 0.7-1.7 [facility] Serum or plasma alpha 1 glob ulin measurement by electrophoresis (mass/volume)Ordered By: Isela Downs on 04-27-2022 Alpha 1 globulin Elph [Mass/Vol] 0.3 g/dL 0.0-0.4 [facility] Serum or plasma alpha 2 glob ulin measurement by electrophoresis (mass/volume)Ordered By: Isela Downs on 04-27-2022 Alpha 2 globulin Elph [Mass/Vol] 1.6 g/dL 0.4-1.0 [facility] Serum or plasma anion gap de terminationOrdered By: Isela Downs on 04-27-2022 Anion gap [Moles/Vol] 18.2 mmol/L 6.0-15.0 [facility] Serum or plasma beta globuli n measurement by electrophoresis (mass/volume)Ordered By: Isela Downs on 04-27-2022 Beta globulin Elph [Mass/Vol] 1.1 g/dL 0.7-1.3 [facility] Serum or plasma [id number] globulin measurement (mass/volume)Ordered By: Isela Downs on 04-27-2022 Lezb-0-Nxkcsdoalrzbm [Mass/Vol] 1.9 ug/mL 0.6-2.4 [facility] Comment on above: Siemens Immulite 200 0 Immunochemiluminometric assay (ICMA)Values obtained with different assay methods or kits cannotbe used interchangeably. Results cannot be interpreted asabsolute evidence of the presence or absence of malignantdisease.Performed at: [address] [id number] Director: Loni Olvera MD, Phone: [phone] Serum or plasma gamma globul in measurement by electrophoresis (mass/volume)Ordered By: Isela Downs on 04-27-2022 Gamma globulin Elph [Mass/Vol] 0.5 g/dL 0.4-1.8 [facility] Sodium [Moles/volume] in Ser um or PlasmaOrdered By: Isela Downs on 04-27-2022 Sodium [Moles/Vol] 135 mmol/L 136-146 [facility] Urea nitrogen [Mass/volume] in Serum or PlasmaOrdered By: Isela Downs on 04-27-2022 Urea nitrogen [Mass/Vol] 14 mg/dL 9-23 [facility] Urine alpha 1 globulin/total protein by electrophoresisOrdered By: sIela Downs on 04-27-2022 Alpha 1 globulin Elph (U) [Mass fraction] 2.6 % . [facility] Urine alpha 2 globulin/total protein ratio by electrophoresisOrdered By: Isela Downs on 04-27-2022 Alpha 2 globulin Elph (U) [Mass fraction] 4.2 % . [facility] Urine beta globulin measurem ent by electrophoresis (mass/volume)Ordered By: Isela Downs on 04-27-2022 Beta globulin Elph (U) [Mass/Vol] 12.2 % . [facility] WBC Auto (Bld) [#/Vol]Ordere d By: Isela Downs on 04-27-2022 WBC (Bld) [#/Vol] 11.3 10*3/uL 3.8-11.6 [facility] PARATHYROID HORMONE- RELATED PEPTIDEon 04-20-2022 PTHrP (PTH-Related Peptide) <2.0 Normal [facility] Comment on above: Result Comment: This test was developed and its performance characteristics determined by [employer]. It has not been cleared or approved [...] G, RENAL, URIC #### [facility] [address] [address] [address] Tyree Botello IMMUNOFIXATION (CHERRI), URINEo n 04-16-2022 CHERRI Interpretation:U Comment Normal [facility] Comment on above: Result Comment: No m onoclonality detected. Performed By: #### M G, RENAL, URIC #### [facility] [address] [address] [address] Tyree Botello PROTEIN ELECTROPHERESIS URIN E RANDOMon 04-16-2022 Albumin, U 80.3 % Normal [facility] Comment on above: Performed By: #### M G, RENAL, URIC #### [facility] [address] [address] [address] Tyree Botello Alpha-1 Globulin U 4.3 % Normal [facility] Comment on above: Performed By: #### M G, RENAL, URIC #### [facility] [address] [address] [address] Tyree Botello Alpha-2 Glubulin U 2.9 % Normal [facility] Comment on above: Performed By: #### M G, RENAL, URIC #### [facility] [address] [address] [address] Tyree Botello Beta Globulin, U 10.2 % Normal [facility] Comment on above: Performed By: #### M G, RENAL, URIC #### [facility] [address] [address] [address] Tyree Botello Gamma Globulin U 2.2 % Normal [facility] Comment on above: Performed By: #### M G, RENAL, URIC #### [facility] [address] [address] [address] Tyree Botello M-Sarthak, % Not Observed Normal Not Observed [facility] Comment on above: Performed By: #### M G, RENAL, URIC #### [facility] [address] [address] [address] Tyree Botello PDF . Normal [facility] Comment on above: Performed By: #### M G, RENAL, URIC #### [facility] [address] [place] [address] Dr. Tyree Botello Please note: Comment Normal [facility] Comment on above: Result Comment: Prot ein electrophoresis scan will follow via computer, mail, or nipple machine operator delivery. Performed By: #### M G, RENAL, URIC #### [facility] [address] [place] [address] Dr. Tyree Botello Protein (U) [Mass/Vol] 181.5 mg/dL Normal Not Estab. [facility] Comment on above: Performed By: #### M G, RENAL, URIC #### [facility] [address] [place] [address] Dr. Tyree Botello VIT D 1 25 DIHYDROXYon 04-14 Calcitriol(1,25 di-OH Vit D) 12.5 pg/mL Critically low 24.8-81.5 [facility] Comment on above: Performed By: #### M G, RENAL, URIC #### [facility] [address] [place] [address] Dr. Tyree Botello IMMUNOFIXATION(CHERRI),PROTEIN ELEC(PE),FREon 04-13-2022 Albumin [Mass/Vol] 3.5 g/dL Normal 2.9-4.4 [facility] Comment on above: Performed By: #### I FEPEFL #### [facility] [address] [place] [address] Dr. Tyree Botello Albumin/Globulin [Mass ratio] 1.1 {ratio} Normal 0.7-1.7 [facility] Comment on above: Performed By: #### I FEPEFL #### [facility] [address] [place] [address] Dr. Tyree Botello Ixjly-6-Hdwadlbu 0.2 g/dL Normal 0.0-0.4 [facility] Comment on above: Performed By: #### I FEPEFL #### [facility] [address] [place] [address] Dr. Tyree Botello Clnpe-1-Rmbvycpm 1.5 g/dL Critically high 0.4-1.0 [facility] Comment on above: Performed By: #### I FEPEFL #### [facility] [address] [place] [address] Dr. Tyree Botello Beta Globulin 1.3 g/dL Normal 0.7-1.3 [facility] Comment on above: Performed By: #### I FEPEFL #### [facility] [address] [address] [address] Tyree Botello Free Hesston Lt Chains,S 25.5 mg/L Critically high 3.3-19.4 [facility] Comment on above: Performed By: #### I FEPEFL #### [facility] [address] [address] [address] Tyree Botello Free Lambda Lt Chains,S 15.9 mg/L Normal 5.7-26.[address] [facility] Comment on above: Performed By: #### I FEPEFL #### [facility] [address] [place] [address] Dr. Tyree Botello Gamma Globulin 0.5 g/dL Normal 0.4-1.8 [facility] Comment on above: Performed By: #### I FEPEFL #### [facility] [address] [place] [address] Dr. Tyree Botello Globulin (S) [Mass/Vol] 3.5 g/dL Normal 2.2-3.[address] [facility] Comment on above: Performed By: #### I FEPEFL #### [facility] [address] [place] [address] Dr. Tyree Botello Immunofixation Result, Serum Comment: Normal [facility] Comment on above: Result Comment: Pres ence of monoclonal protein is unclear at this time. Suggest repeat in 3 to 6 months if clinically indicated. Performed By: #### I FEPEFL #### [facility] [address] [place] [address] Dr. Tyree Botello Immunoglobulin A, Qn, Serum 266 mg/dL Normal 87-352 [facility] Comment on above: Performed By: #### I FEPEFL #### [facility] [address] [address] [address] Tyree Botello Immunoglobulin G, Qn, Serum 517 mg/dL Critically low 586-1602 [facility] Comment on above: Performed By: #### I FEPEFL #### [facility] [address] [address] [address] Tyree Botello Immunoglobulin M, Qn, Serum 118 mg/dL Normal 26-[address] [facility] Comment on above: Performed By: #### I FEPEFL #### [facility] [address] [place] [address] Dr. Tyree Botello Hesston/Lambda Ratio, S 1.60 Normal 0.26-1.65 [facility] Comment on above: Performed By: #### I FEPEFL #### [facility] [address] [place] [address] Dr. Tyree Botello M-Sarthak Not Observed Normal Not Observed [facility] Comment on above: Performed By: #### I FEPEFL #### [facility] [address] [address] [address] Tyree Botello PDF . Normal [facility] Comment on above: Performed By: #### I FEPEFL #### [facility] [address] [place] [address] Dr. Tyree Botello Please note: Comment Normal [facility] Comment on above: Result Comment: Prot ein electrophoresis scan will follow via computer, mail, or nipple machine operator delivery. Performed By: #### I FEPEFL #### [facility] [address] [place] [address] Dr. Tyree Botello Protein [Mass/Vol] 7.0 g/dL Normal 6.0-8.5 [facility] Comment on above: Performed By: #### I FEPEFL #### [facility] [address] [place] [address] Dr. Tyree Botello PTH INTACTon 04-06-2022 PTH, Intact 9 pg/mL Critically low 15-65 [facility] Comment on above: Performed By: #### P THINT #### [facility] [address] [place] [address] Dr. Tyree Botello HEMOGRAM AND PLATELon 2022 Hematocrit (Bld) [Volume fraction] 51.5 % Critically high 36.0-48.0 [facility] Comment on above: Performed By: #### M G, RENAL, URIC #### [facility] [address] [place] [address] Dr. Tyree Botello Hemoglobin (Bld) [Mass/Vol] 16.2 g/dL Critically high 12.0-16.0 [facility] Comment on above: Performed By: #### M G, RENAL, URIC #### [facility] [address] [place] [address] Dr. Tyree Botello MCH (RBC) [Entitic mass] 30.1 pg Normal 26.7-34.0 [facility] Comment on above: Performed By: #### M G, RENAL, URIC #### [facility] [address] [place] [address] Dr. Tyree Botello MCHC (RBC) [Mass/Vol] 31.5 g/dL Normal 29.9-35.[address] [facility] Comment on above: Performed By: #### M Quinton, RENAL, URIC #### [facility] [address] [place] [address] Dr. Tyree Botello MCV (RBC) [Entitic vol] 95.7 fL Normal 81.0-99.[address] [facility] Comment on above: Performed By: #### M G, RENAL, URIC #### [facility] [address] [place] [address] Dr. Tyree Botello PLT 280 103/ul Normal 150-[address] [facility] Comment on above: Performed By: #### M Quinton, RENAL, URIC #### [facility] [address] [place] [address] Dr. Tyree Botello RBC 5.38 106/ul Normal 4.20-5.[address] [facility] Comment on above: Performed By: #### M G, RENAL, URIC #### [facility] [address] [place] [address] Dr. Tyree Botello WBC 11.7 103/ul Critically high 4.0-11.[address] [facility] Comment on above: Performed By: #### M G, RENAL, URIC #### [facility] [address] [place] [address] Dr. Tyree Botello MAGNESIUMon 04-05-2022 Magnesium [Mass/Vol] 1.1 mg/dL Critically low 1.8-2.[address] [facility] Comment on above: Performed By: #### M G, URIC, RENAL #### [facility] [address] [place] [address] Dr. Tyree Botello RENAL FUNCTION PANELon 04-05 Albumin [Mass/Vol] 3.5 g/dL Normal 3.4-5.0 [facility] Comment on above: Performed By: #### M G, URIC, RENAL #### [facility] [address] [place] [address] Dr. Tyree Botello Calcium [Mass/Vol] 11.5 mg/dL Critically high 8.5-10.[address] [facility] Comment on above: Performed By: #### M G, URIC, RENAL #### [facility] [address] [place] [address] Dr. Tyree Botello Chloride [Moles/Vol] 95 mmol/L Critically low 98-107 [facility] Comment on above: Performed By: #### M G, URIC, RENAL #### [facility] [address] [place] [address] Dr. Tyree Botello CO2 [Moles/Vol] 28.3 mmol/L Normal 21.0-32.0 [facility] Comment on above: Performed By: #### M G, URIC, RENAL #### [facility] [address] [place] [address] Dr. Tyree Botello Creatinine [Mass/Vol] 1.17 mg/dL Critically high 0.55-1.02 [facility] Comment on above: Performed By: #### M G, URIC, RENAL #### [facility] [address] [place] [address] Dr. Tyree Botello EGFR-AF SLOVAK 59 mL/min/1.73m2 Critically low >=60 [facility] Comment on above: Performed By: #### M G, URIC, RENAL #### [facility] [address] [place] [address] Dr. Tyree Botello EGFR-NON AF SLOVAK 49 mL/min/1.73m2 Critically low >=60 [facility] Comment on above: Performed By: #### M G, URIC, RENAL #### [facility] [address] [place] [address] Dr. Tyree Botello Glucose [Mass/Vol] 229 mg/dL Critically high 74-106 [facility] Comment on above: Performed By: #### M Quinton, URIC, RENAL #### [facility] [address] [place] [address] Dr. Tyree Botello Phosphate [Mass/Vol] 3.0 mg/dL Normal 2.6-4.[address] [facility] Comment on above: Performed By: #### M G, URIC, RENAL #### [facility] [address] [place] [address] Dr. Tyree Botello Potassium [Moles/Vol] 3.5 mmol/L Normal 3.5-5.[address] [facility] Comment on above: Performed By: #### M Quinton, URIC, RENAL #### [facility] [address] [place] [address] Dr. Tyree Botello Sodium [Moles/Vol] 136 mmol/L Normal 136-[address] [facility] Comment on above: Performed By: #### M G, URIC, RENAL #### [facility] [address] [place] [address] Dr. Tyree Botello Urea nitrogen [Mass/Vol] 20.0 mg/dL Critically high 7.0-18 .[address] [facility] Comment on above: Performed By: #### M G, URIC, RENAL #### [facility] [address] [place] [address] Dr. Tyree Botello UA RANDOM W/MICROSCOPICon BACTERIA TRACE Abnormal NONE SEEN [facility] Comment on above: Performed By: #### U AMIC #### [facility] [address] [place] [address] Dr. Tyree Botello Bilirubin Ql (U) SMALL Abnormal NEGATIVE [facility] Comment on above: Performed By: #### U AMIC #### [facility] [address] [place] [address] Dr. Tyree Botello CAST SEEN Abnormal NONE SEEN [facility] Comment on above: Performed By: #### U AMIC #### [facility] [address] [place] [address] Dr. Tyree Botello Clarity (U) CLEAR Normal CLEAR [facility] Comment on above: Performed By: #### U AMIC #### [facility] [address] [address] [address] Tyree Botello Color (U) YELLOW Normal YELLOW [facility] Comment on above: Performed By: #### U AMIC #### [facility] [address] [address] [address] Tyree Botello Crystals LM Nom (Urine sed) NONE SEEN Normal NONE SEEN [facility] Comment on above: Performed By: #### U AMIC #### [facility] [address] [address] [address] Tyree Botello Epithelial cells LM Ql (Urine sed) MODERATE Abnormal NONE SEEN /RARE [facility] Comment on above: Performed By: #### U AMIC #### [facility] [address] [place] [address] Dr. Tyree Botello Glucose Ql (U) 500 mg/dl Abnormal NEGATIVE [facility] Comment on above: Performed By: #### U AMIC #### [facility] [address] [address] [address] Tyree Botello Hemoglobin Ql (U) MODERATE Abnormal NEGATIVE [facility] Comment on above: Performed By: #### U AMIC #### [facility] [address] [address] [address] Tyree Botello HYALINE CAST FEW Normal [facility] Comment on above: Performed By: #### U AMIC #### [facility] [address] [address] [address] Tyree Botello Ketones Ql (U) TRACE Abnormal NEGATIVE [facility] Comment on above: Performed By: #### U AMIC #### [facility] [facility] [address] [address] [address] Tyree Botello LEUKOCYTES Negative Normal NEGATIVE [facility] Comment on above: Performed By: #### U AMIC #### [facility] [address] [address] [address] Tyree Botello MUCOUS NONE SEEN Normal NONE SEEN [facility] Comment on above: Performed By: #### U AMIC #### [facility] [address] [address] [address] Tyree Botello Nitrite Ql (U) Negative Normal NEGATIVE [facility] Comment on above: Performed By: #### U AMIC #### [facility] [address] [place] [address] Dr. Tyree Botello pH (U) 5.5 [pH] Normal 5-9 [facility] Comment on above: Performed By: #### U AMIC #### [facility] [address] [address] [address] Tyree Botello RBC 2-5 Abnormal 0-2 [facility] Comment on above: Performed By: #### U AMIC #### [facility] [address] [place] [address] Dr. Tyree Botello SPEC GRAVITY >=1.030 Abnormal 1.005-<=1. 025 [facility] Comment on above: Performed By: #### U AMIC #### [facility] [address] [place] [address] Dr. Tyree Botello UA PROTEIN >300 Abnormal NEGATIVE/ TRACE [facility] Comment on above: Performed By: #### U AMIC #### [facility] [address] [place] [address] Dr. Tyree Botello Urobilinogen Qn (U) 0.2 {Jennifer'U}/dL Normal 0.2 - 1. 0 [facility] Comment on above: Performed By: #### U AMIC #### [facility] [address] [place] [address] Dr. Tyree Botello WBC 2-5 Abnormal NONE SEEN [facility] Comment on above: Performed By: #### U AMIC #### [facility] [address] [place] [address] Dr. Tyree Botello URIC ACID SERUMon 04-05-2022 Urate [Mass/Vol] 8.0 mg/dL Critically high 2.6-6.0 [facility] Comment on above: Performed By: #### M G, URIC, RENAL #### [facility] [address] [place] [address] Dr. Tyree Botello URINE T PROTEIN CREAT RATIOo n 04-05-2022 UR PROT CREAT RAT 0.66 Normal [facility] Comment on above: Performed By: #### M G, RENAL, URIC #### [facility] [address] [address] [address] Tyree Botello UR TOTAL PROTEIN >200.0 Critically high <=12.0 [facility] Comment on above: Performed By: #### M G, RENAL, URIC #### [facility] [address] [address] [address] Tyree Botello URINE CREAT 304.32 mg/dL Critically high 20.00-300. 00 [facility] Comment on above: Performed By: #### M G, RENAL, URIC #### [facility] [address] [address] [address] Tyree Botello VITAMIN D 25 OHon 04-05-2022 VIT D 25-OH 49.7 ng/mL Normal [facility] Comment on above: Performed By: #### M G, RENAL, URIC #### [facility] [address] [address] [address] Tyree Botello VIT D RANGES SEE BELOW Normal [facility] Comment on above: Result Comment: <20 ng/mL Vit D deficient 20 - <30 ng/mL Vit D insufficient 30 - 100 ng/mL Vit D sufficient >100 ng/mL Potential Toxicity Performed By: #### M G, RENAL, URIC #### [facility] [address] [address] [address] Tyree Botello SCREENING MAMMOGRAM W/CHASE, BILATERAL*on [...] VERY IMPORTANT TO YOUR HEALTH. THE CURRENT [employer] GUIDELINES RECOMMENDS ANNUAL MAMMOGRAPHY BEGINNING AT AGE 41 THIS FACILITY USES A REMINDER SYSTEM TO ENSURE ALL PATIENTS RECEIVE REMINDER NOTIFICATIONS AT THE APPROPRIATE TIME BASED ON THE RECOMMENDATIONS OF THIS EXAM. Report reported and signed by Rich Soriano on 03/13/2022 0925 [facility] Coding Summary.on 02-15-2022 Coding Summary. CD:[id number] Gh0bW w+PGhlYWQ+ZS2FNZEoM03clVX qjF4DL8iUWE3QGRZAZKDNPI0N YD9keLQ0XRvhC2GkuiOk MwrltBEkRJ66GHf5QCX2rJctY ChdqE5naOFdN6v6YrSxSN81pE 84OSgkAJOwRbJ1HcDfwfxpvVX y S7hsFxRezXBsIiz+PHRhYmxlI HdpZHRoPScxMDAlJyBzdHlsZT 4rQr2xRWJxUFGfpHqukFVqBuT j j7itANBfKLccSF2liTivK7Ocw GA4BWYhx4j8Nh35dHU+PHRkIH S2aAmbCEjxp658TjHwu1kpXUP 3 dLOmOHmsBFV0W89yo4X9OHGdN UZhEIX0uAW6gY6ikHarcpdnH0 ZgpJAfMmL6OEG0yVAzdH0xpAw n ljbhmG3rAmt+H83LDU8EKNGIH D4ZQwn5Y9VdBtjuwTF+PC90YW QcJY76vKXtlRYlu9qkxSr6JeF w DBYcSZN8jGrgDDyab2QxRUMrG 87hePDql9P4DQQqbOitxXAsSs XilNS3bR5tCTdpujvvb6gfiti n Yktfh6mgqr38gN66T40rWJulX GCeIUV0DPJxEKEgdSdptj1mzL 9wIi8+JXugd0kty5jbdZn2WkB w TUPlyjYwlJqqNSQ6k6BnTf11F 2SpbSang3CcIqw5le01uXIrr4 G2rQG3EQjaNYFhsI0gLBslRfM 6 RYYhEsKzwE82xZXzDUvbLx5ju JiedEbxMR2pZBAyebzzKCRwrG 5nBGDutNVmpAurVY8xYTHvutm m x431YoSkEFM9BOCdbXWjK7Nra T9eKgJwAUQjTGHjV3SkbUPeLI lyP098BQijHeK9MIZmvaIiZ4H s LZZxqErpJfC4b5S0Vq3Rx6Ash cfuBIB1BRjhOSKqNgR2SxKrUg S1C1AjJaa8HTTafYfcSZ0oM6J h PHApllmzcphsjTF1YJPuYJKjg D10xIDhXRmvPr3bd4C2h482BU ViGZZeeQ09Qf3oaHexLRKwaPG U wM2uixpwd3iehulhOgEhKMWwI Ju9ADl7EEVyiStqAfEfYSA0Qz X4BOV1gQUovF0ixQgcbqyrnS6 w Oyc+I76vrG3cBMH9VKQ6unnjE QKfpnShNF61PA77D9HhHqurzU FibGU+SJCibvFltZqwGJ2wJwV j o9zos5NoDHtiT0BrOEWtHUttN jd7ZMMvAID4jIB5lI2rRJLbXX lcn7E5aGJ0G7LltfVnqd8fc1d s KRZeVTasT17wzSRal4L1CKTmp ZC8BKYutBkrLyWgqE70Rlr+PG ZaiMjrn7AeLaohq8qjv4wnsKx 9 UrXzZYSzurYcuMmmQWO9j9BkO f12Q29dSWtoNAJiCAEoWDLqTM BcgHogzn7dqU5xTk7+PGNvbCB 3 cUE2pU9bJJEdItN5SWgvJ066L tLrrGOjSgkut5pay4asmFk0Kf RnUCWvpcJndUqlEUQ5t9TvPu6 8 J06xTMqdRXQhCUCcSZZcJJCii Xrlzd6wuX4xIz6+ZJ9pe2cojk 95kK52dDP+FCJfOJD4hRuoKLc w UDGncI5qAHjnQqV7LJUhJqRst O92xPDcDKpaMj1mdSbnfSklRZ 5iBPTqmyiuz901HvGug4veQJY w kUCmHKwpSTP4D42zy8J2JDUdX WDhYGB0ySI9oX4twKmdpsqeaW KmqZcfyyMzhQylJJdbCSrtS39 6 IHRvcDsnPlBhdGllbnQgTmFtZ Ke7M0TqJaz7GXUogZwbRJ5dhY YsGKewOc5ayBlejVexMP9dMBY p orntl203VzVnw2qeGLBfrMEuM MsaCYK4M05sr3G7KGMwZYQcOM D9aEG4fA4idOyjcasigNBylTf g unHbdKcpKDvzVRgjF338WMTgw QffWiPyksOyIYBlhDS3AR93SA 68hXNfg9Y7sUR4J6ZuSGJxejs t aqfqgVQ8OSMbPSQtiK68Od0qn MrfPe0cVEPuAWV3IHRcqJNxU7 HbcY8sTlDpCIMsCMRmS2JzaKR t PVieP138TYcqYdX8SYZymqDtS 2XuNYFdwAhaWiW0x4P7Td4YF9 Y2TQ13KG58lYJka1L1kAK3N6Z h RBXnvhoxfabkqUS7KPWjQQEli C15Xe9yyFbpTb7uJPBxXEY3MW OztFGwW4IjbF7lRcWgTZQlFAE w Y4ZatIKtXQwtH122SXqoYlG6G KRwunWhC4DmTOWyzJltNhU1f4 Z5Kb8CPGk2JR52MM15oXUrv2K 5 wXY5T6AnAFWvcqswuivuiUK1Q QRtBIOzsO97Dj9jtUrlJo5bRA HtLBH1OXJukWDdB5JjcK4pBpS j TXCgHYXgE4AqhPExZDcaO229S DpiUgT7GHRbxfOgW4ApITGoaH skVeY8z5O9Vt7ELBVbTB78AMR 5 pAN2MP07LM84B6BoFbtzuBHak +PHRhYmxlIHdpZHRoPScxMD BxDcBcfPucGX2pYh0lDHNtSXL v bYgizOXzNnFhn6xbMJNePJytW E3noRkkI5AriTD9DIOpm0c3Fu 62Q68iU1CrfDY+PTGlcWA7fQB 0 qH2gGlZwUhF1LVxrO944VrSbw WGoWioyo5ysi2xblLt3LkJ8DC GckuMftZsaICA8a0RbCa04S61 s IHdpZHRoPSIxNSUiIHZhbGlnb l7wpU1iTf7+TLOauFW1uDS7jG 6lGqAcFhN9EPrsL497PiHrcVW v Fulvt6rpk8ddkVg2XhYeMCEvg aVpdUezEQD4r8YiYf13R1MykQ rex6PtQgx3id69oQYjo2K4tDX 9 O1RmZAAksctnzREvwRoiRY7xL NNilcezSTGarO3zDTExH5d9Jh YaNnI0DEkmV7OwynF2FPScgCY g KPkvEJC9I60vd3H2VRLoSEVyX YU0zHL3xR7ocPauuvqcoFOfnJ rdlqQldDqjWVjlDQvxU510SPZ v bNkdVWGmjE7yTKBacABykAzjX W1oWNAqgxqbObRYH9rFWXHfTT xPVUVMTEEgTDwvdGQ+PHRkIHN 0 zHkuMAadWHEdvF3tKUFkW1o1M uBjVhA7YTwgT6CrZFHygwofQx 56iS8dDwDdHkH3VMfuS9OdycF 6 ACOwmKFdXIawAQH3C63cq2H7U MUpBMOwUHL6dVY8vN5otSwuis ogbGVmdDsgdmVydGljYWwtYWx p F577CLLtwLbcWnUaCgY9YtR3H qB4R2PzNdx2ZLNwoBavPQ8zeS EbFFkdCx7keXhppAybGE1iRBQ p vneyESRjaG3aTDVsjAYtwOjrB O7rGXGpudmev056GxVlILB5JC XopGNnF7ZjvC9jDaAjENNyDOP w Y5WtoIRdNJjbV987OYwtOuH4F CTzqrHuV6OjDQWqpTnlJzB1m1 Q7In89YHQERRWhxokgrBQ+PHR k CXU9eNdiHSpzCHHjhE5zVOCjN 9n7LkZuMfL6SPlqB0NsSSCaya omBz47pT0pWeZxFnS0NDurU3U v dvL0XEGgzCYiWAdyHOK6L24jn 4B2DMReVJUxEWX0wRJ6kI0shR lnbjogbGVmdDsgdmVydGljYWw t DTppK786HCNvhYpxJfKupALmD TwvdGQ+LZMhZEQ1bTfkTEbgNN VppH6jVSFcP3b1IcBpYqM7NJu u L8ObNBOzfmnrFv13cS7bEmEnF rF6PIbwC1GoezD1GIGflKZhCP giICG0X62uz8A5XNAnWNFkUAH 7 yRV4gZ0tlKqizcnnlBGxxLmsy fFqbItrHPvnPNdaK571QVFzlX wbRstnEeWZxh0oVU8iMkjskVJ + HX34fd71W3TpDterLvc1UOTtN IL4sOG7xH4aHYSmYXnwv5A3qP S2V3NetzNhlm5hg0vdJIJqHZg g V99hgVZie2Q3ZYAnrVE4HUEvo WojWeCjoN52Dtk+PGNvbGdyb3 TiQfmom1ced7bmvOa2PvQjWPP g seApjUmhHTP3y3DqJf05Q60lH HdpZHRoPSIzMCUiIHZhbGlnbj 2woR4hSq5+VPQgoAX8hZN8qT7 i DeTmTqP0SAodP611IaGdlGMuS ztbb4lug4cdoTx3RgQdEHAdvp NkfTwzDVN4k8IzWo40T0ZhcSl y b8ZbZjz4zd82eQJee6L3gBG9V 1LnMWOaooyggTLvpCnyGT2eJZ MlahxxSADnkJ5bDJBiL0g5CuR w CmD9VVdeC0DmayU2DFMamXYuA FVgyVEMiD4mkykdx2dvfksoNe QcDPGuYLu8AXc3OUMwcXwwZhE s VOH9TaS6PDY0qUIuwM5oyDgla evtaM2tMgn+LVk2a6pzdAKhEL 2xpPU2RK58CF66wNRsg4Y1pLE 9 Y5NnUUKccosglvwohII7QWAqU QUxcY64Nm8zfYypGq9sTTKbZW A5ZFNbpJXtE9ZcjI4vKjMjVGK w UXVkQ9KtoZAoMTjsX123RNtaJ iZ3XCHuikWwZ9XbZCEgwOweAw P7o9A3Yf9NJA64OA72VC70wSY g u2G7lED1F9HbEPErvrrldbgne PY4OCQzEZDpgU02Wg3lhWihVy 4fQXBvNZJ6XVFckNEtM8BybW6 y IhWrWVXrJJMiL3EesNQoOMrmV 509MAolBtC2AJKskjOlG0EpUW NijNgnNbA6q0D8Lr9IJo23DB5 0 LO70xVZhr7V9nIV9X5QoBKKko yweugoaxDV7OQNmICKnfO97Lz 2pvEtoUi1hUEReEUB8BYRmtGV z N3SnoG6wIbShPZLnNIGlN8Ldg MSkVBoeR269MCsnCeS3UYZfwu PmK3HnWBKrmNjsJtY7b8S9Au4 Q NUdrvgf2I0DwGmqwhSJ+PC90Y XEsZI30hKNuwAZdk6hgcCf6Tu OcWSVvUBF5bWpzYXlqi6ZcUXX t Y29s (more content not included)... Normal [facility] Coding Summary.on 02-07-2022 Coding Summary. CD:[id number] Gh0bW w+PGhlYWQ+TD1IVEVrL26xpCQ wcP9SG1aSLL3QFDWAAURJKO1U EL3yiLE9ONfnU2IdoqTw JypwrAZzTT20QVa1AJU7lZpbP NnfnV6piWMiM3o5PnEyPY85sU 30QKnzXYWlXvP5TgCmebhxzYJ y Y8pnYoCybHJeXxj+PHRhYmxlI HdpZHRoPScxMDAlJyBzdHlsZT 1cOn2wXIPmAQIfaGzgyHOeXgB j u8coCSDwUAslLJ0hbRklZ2Jsm KS9DNIbc5t2Wj08sSI+PHRkIH G4xDpmBCpfq033VaAwy9fxVJK 3 hKRxFUfaZMU6H89ye8S1BWMbY WGpFDX0eTQ1aY0zsTukfpjaO8 VwaNZsErF1EDK9mSXxoP4vsGl n htptxM9aLsp+Y54DVV5QATDOI L7RVqd0D1YyVycreZY+PC90YW NePW78kHQzgWSbz2wffVg7XlO w KBThOKJ0hMzoZYkwv2LbORXbV 63pxJMnz2V5OEDukYoklKJuJn NzzYZ6gF7bYKpvknrsj0cfbiv n Klpeg3olup63rM05E29tALhbU WOzAYM9IVAlOCOjbKjadr3dlT 9wIi8+SUghs8dtf2lxzZm9ZuZ w JKMwarExaJrsXHF8v2NpNp47Z 0FgsCwuc0EeCbd3iw38aHIyc6 W2iBX4YUwqBPPjrT7wPOurIiX 6 UUWhIzAgiQ87kFMiHZwuTt3id ZrlcIbgZP4pCTDidmlfSPRhmU 1xWXOwlSXyyDhkTA4iNCOvrjb m d850SsNiQXH2LJWzpUFtB0Anq K1tQbDzDWFwIQWhV8MgzWEsVG ipB373VWujRlK7ZTMovsElT7F s FECaiNwtApK6o9O4Zt5Wj8Fnc yoiCTH7ZXbhMBUoAwOfPjXqKj Y8H6OvUlc3LUCueNrsLR6cH1B h CNVhizkquehejWE9VSJvNQQzj Q16hXIkXSsjGt1ev7I9a979YH JaKNZqpB67Ts0egOasULSqqPJ U pV0omdoib1qqdwgkKrSuKQObI Zg3EDw7FFItrOcjHxIvSTY9Cf T0HXL2zBGzoU5huRzglichiJ6 w Oyc+D03ezB3oPCS7GUP5vswjF OIwhdQrDZ54AB95U8LmTwxpdA FibGU+TKTzsdVsaHceWV5oUaD j g5mwe5PyWDjxB4JrYUUzEUjtJ aq4IBOzDRJ0vWQ6aU7tVQWyBT emm2Y3fUQ9D6OsdiRaud9or4e s CNAjJWlwH26avFAoe2Y5BYIid BY3GYMobZaxPiKutX52Dqm+PG EkiQoro2HqHpjlg4cmc5zfsCm 9 OrUcIQZaeqUsoBbpPQW9v4HoV d91A47lJYwnRHIsCDAiJNOgEJ UbeBvidf6syS2oKl0+PGNvbCB 3 tMN9zW9mHKCcOrG2VVlhX217Y dHvpZAsVulal2gjk0qnpHr1Au DiYEScnqGdfUwaGLZ0t1DrTg9 8 W28yQApeHKXbSVZtRJNqHIYgu Cgwgn3nzW2tNq9+QQ1ru2xdhl 30tX43kAB+JZFuCFK5tWjrKWp w JPGrmC9yKSceOcB4UQTgZlItk B48lVKnIKpcGc8wlVlrnXlrZU 3xNOGhfjmqi955VcJxk9tdMNR w hCIhNOeiNYC6G72qw5U9AEJbS OYkIKY7bQP0iN2cvXxoakzkvK BbyOqbyeCmsTbiIEugQQxuI12 6 IHRvcDsnPlBhdGllbnQgTmFtZ Vs7V0EmEla6OMEkhRdoOJ5epS JtFQjaKs1xhGiaiAmkYU4kGNE p nmlzu548JuHmc7quMDOuvBZkF EfcQDH5X67ei4O1UAXaWQJlZE W8eSS8jJ2gnKshdgitjYNmoEt g fyPbeDbmLRutXTneT769UXHfj TnbGgJcjmNnDXIgoIX0OR14KR 43bOLat4G5wNP9H4BcKFSogjc t tzaxxWR3DSYlRHXfbW53Zu7hx VjjXd9vPTMiZUZ1TIIiuYNdN7 NurK3hFxZpWXHbAOIeN7WzhYV t YUfbG629UEjpHgT1XWZnlgAfF 1UzVWUqnKrtTbL6x5K9Qk7SS3 X1YV96SC62dHOsx5W4iNH5U3O h UPEiytzqlyyfeRD1PQCqQYQwj F72Qt7nqVvgWt0iORBeYJU9VZ JoaITaP4HnoJ7xFpExGLYaXFV w E7LiiSZqYFozR893IPmoBiA7N JZndhBnJ0MqAZYtcTsqPxZ0u9 Y9Qg3BFIo9FF34CW02qPSnb4M 5 aKG9S6ZrCQQvaefxxdxptDM7O YLyRVEiyB71Pm7nbIwlKw0cMY ZiPZA3MOOpwKJyD4UvmH9eVyK j VCUlCUGuS3SsuOMtSNekX743O MgnCmR3NVNltvKlL2MnSEIdiI afWjJ0f1U0Tw1IBDXpYM08HCA 5 kXN8NL29SI70Q7ShXfiujCKsz +PHRhYmxlIHdpZHRoPScxMD NcZwSegPubDT1fUr6sMXBqHFH v qEfmxSTqNqGow9blDQBsIHmjG L8zbBonZ0JsfRL7PYExj0w9Cj 20Z04hM8UlhWW+DCAvzGD1wAV 0 wB9pMzNtHoI9QGfsV687OfZkv QVnLuwyh8tec2tpkGq6XvO3US PttaMifEpqIFJ4k3MlZr51Z01 s IHdpZHRoPSIxNSUiIHZhbGlnb x3heA9qGd3+LGZqkJN0bJN8jS 2aGwTzDcK7PGyhP066OhXebZZ v Sxnwg8uhh2hnfSv6AnPhAJLct lBxpYkzWJW6a8FnXm17U6MdoP wgr7ZyLyk3cs05tKTbv3E4vTC 9 X6DeTTXyvqgxnDAzgZdrIS5fX CWlkaxxSERkfE9sIIUxH0n8Vi GoXjA5PCewV4LkmrN9KMLkgFN g DIkyQTE4F72eb0F1KLIoKGMpU OV4qIL1fX1bySxzrrkrmCFgsB qunxSejNniITqhQWsdW557TPA v iYgeSWMdoB8aFGUjePMyjQrbC O5kMKUmhwuuCeSJF5pEMXEhYR xPVUVMTEEgTDwvdGQ+PHRkIHN 0 xWoyKZqwBSHyaO2cGDLeO2w8Y xRmKuF3PUaiJ1ItQDBelcipBe 47xB2iEuWwCxR0OLstY0TavhL 6 AFSkdMReHSvzXEV2U59my2E7L GJkJJQjXGT1dDO8gA9jyZmyzw ogbGVmdDsgdmVydGljYWwtYWx p P467WXFjrQypUfHnOeS2RsU0A tZ8V6KjBnn4YXZtdOvoKH1szX HyRAetGc6udDculUbjJY1nQTU p lphzDCSqgP6nQRLheEVikNkzX G0wPFLdxxwyz979SpSmGIX2IR VorVDgO6YpxG9wAnIfUWIpGIQ w T2CufQTxCVkvR939JEvsDyL2N JDfsxLkK3OzXYVvqNexDfY0p1 F3Fz97QQFEROSerbchyFY+PHR k LZN8eSfvOTysGUKepI9kGHIxZ 9d3NvTjTlR7GOitQ5JaVCXkhl uaTs89kZ4dTpMfEgK6SZiiI3L v okY6RJKjvKYyQLsyRVG3B05lv 9N0VELuALNiBED4oMG9qR9nzE lnbjogbGVmdDsgdmVydGljYWw t BTezA687KBHwhXxkMxPyiSMrK TwvdGQ+BBArNYT2vCqrMEraUC PraG2eJBBtB7b6XkQjUxH1RIk u P0BwLLQejgecSj79jD5uYhYnS lV5COpzQ3LcpwF7VLGzcHQyTA gpIKZ6L50xk5J2EGEsLHWcJNB 7 fRD8qE2ukGajbdtnfLGweXckq cCsaZrtVPvpICskP692OCRxoA svGt65fNJedCucqxB9H3QnXpy v dHI+NZ30GVVkGE39xHRxpXDpk 3snvUu4EtBcYMAuQSC7aIwlYA twq1XgRJZwQ65oiSBkf7C7KZJ v sJxrpOPsGbAybZE9zH0hJManb sfsp1vsxtswZvnya5wgmw31aF 74N98xNFbxGIYyFSLyUMJdNRM h hEnijp3xlL3nYs6+STBypXX1j FQ4jT6sRrJvPoX2ERzrL800Ml KyqSXdQlrnm0gog6dgpSt3RpD w GTEdvfKapItyCUQ7n4PiUn65Y 29sIHdpZHRoPSIyMCUiIHZhbG yhdy9ijF1jYl8+PV5iw6socn3 1 sY79rUD+QAMkXVE6yJyeGHbgD THvsB2uFVilGuW1BLWaOqObnL 44eQRkMXpbBc7fmOenhXsfRC0 w BNPxnwnaa436ZrWmg0mwPKRxn FPxWDdrFZP9Q05or2B4AKQyGP SoPTA8bGB8zT2idMqedblefKY m dSypmhBbpPtfWDxzUOhhI158G LKxtCjrHdPkfEDwN2zskbYVBX 1lOjwvdGQ+BLDkTEI9zPacWQv w FOUrzY5pVHLzG1f7TfJaJkY4F MnjN4VelcT6QFBgnLVmGXEefK KOiJ0srfymb0bdgcwnRkZyNPN w UVd1RIr5LSEckLhvKeVzCWQ2X fT1ZGW9nGHdqZ3xjZqywrxeiE 9wOyc+RklOOjwvdGQ+PHRkIHN 0 yEdbSWioWEKsqM9nROFrH7m0N tWxRgT5QGxyE2WpjwT0XNXenD TvCEGdaREBhT5qhfhui4bjgfa g XfKmQURrPAj6FJx1BGLblPwlU gWjSCG6CtD5WSU3mXTvkQ2whR krnargzX0zQwq+TVJOOjwvdGQ + BILyHKC5uHqeTPayAZYvnU4hS QXeV8v8EjYxIbV8DHgeI6Enea W7IXYzpJZhFBGqhMLYmC1zcdr j r5dvfmyyEaOjAUQmOXv5JWd7C CCuaSwaIiQxRNO4NlO4ZPW9uM EkaV3crWnqrsgkjP8hKcl+UGF 5 VXX9LW06XS41H8YaBuirsJTca +PHRhYmxlIHdpZHRoPScxMD GmMiZvoXbwQV5zIy1tJQIgTCT v bGxh (more content not included)... Normal [facility] Physician Orderon 02-07-2022 Physician Order [id number]:1 27 Normal [facility] BMPon 02-05-2022 Anion gap [Moles/Vol] 18 mmol/L High 6-16 [facility] Comment on above: Performed By: #### 2 [id number], [id number] #### [facility] [address] [place] [address] Calcium [Mass/Vol] 9.6 mg/dL Normal 8.9-11.1 [facility] Comment on above: Performed By: #### 2 [id number], [id number] #### [facility] [address] [place] [address] Chloride [Moles/Vol] 101 mmol/L Normal 101-111 [facility] Comment on above: Performed By: #### 2 [id number], [id number] #### [facility] [address] [place] [address] CO2 [Moles/Vol] 23 mmol/L Normal 21-31 [facility] Comment on above: Performed By: #### 2 [id number], [id number] #### [facility] [address] [place] [address] Creatinine [Mass/Vol] 1.0 mg/dL Normal 0.5-1.3 [facility] Comment on above: Performed By: #### 2 [id number], [id number] #### [facility] [address] [place] [address] Glucose [Mass/Vol] 154 mg/dL Normal 55-199 [facility] Comment on above: Result Comment: If t his glucose result represents a fasting glucose, interpretation should refer to the following reference range: 55-99 mg/dL Performed By: #### 2 [id number], [id number] #### [facility] [address] [place] [address] Potassium [Moles/Vol] 3.9 mmol/L Normal 3.5-5.3 [facility] Comment on above: Performed By: #### 2 [id number], [id number] #### [facility] [address] [place] [address] Sodium [Moles/Vol] 138 mmol/L Normal 135-145 [facility] Comment on above: Performed By: #### 2 [id number], [id number] #### [facility] [address] [place] [address] Urea nitrogen [Mass/Vol] 19 mg/dL Normal 5-21 [facility] Comment on above: Performed By: #### 2 [id number], [id number] #### [facility] [address] [place] [address] Urea nitrogen/Creatinine [Mass ratio] 19 No Units Normal 10-20 [facility] Comment on above: Performed By: #### 2 [id number], [id number] #### [facility] [address] [place] [address] CHEMISTRYOrdered By: SYSTEM SYSTEM on 02-05-2022 Anion gap [Moles/Vol] 18 mmol/L High 6 - 16 mEq/L [facility] Calcium [Mass/Vol] 9.6 mg/dL Normal 8.9 - 11. 1 mg/dL [facility] Chloride [Moles/Vol] 101 mmol/L Normal 101 - 1 11 mmol/L [facility] CO2 [Moles/Vol] 23 mmol/L Normal 21 - 31 mmol/L [facility] Creatinine [Mass/Vol] 1.0 mg/dL Normal 0.5 - 1.3 mg/dL [facility] Remisol GFR/1.73 sq M.predicted among blacks MDRD (S/P/Bld) [Vol rate/Area] mL/min/1.73 m2 Normal >=59mL/min /1.73 m2 [facility] Chem S GFR/1.73 sq M.predicted among non-blacks MDRD (S/P/Bld) [Vol rate/Area] 59 mL/min/1.73 m2 Normal >=59mL/min /1.73 m2 [facility] Chem S Glucose [Mass/Vol] 154 mg/dL Normal 55 - 199 mg/dL [facility] Potassium [Moles/Vol] 3.9 mmol/L Normal 3.5 - 5.3 mmol/L [facility] Sodium [Moles/Vol] 138 mmol/L Normal 135 - 145 mmol/L [facility] Urea nitrogen [Mass/Vol] 19 mg/dL Normal 5 - 21 mg/dL [facility] Remisol Urea nitrogen/Creatinine [Mass ratio] 19 mg/mg Normal 10 - 20 [facility] Consent for Treatmenton 01-10 Consent for Treatment [id number]#[id number]:12 7 Normal [facility] Physician Orderon 02-05-2022 Physician Order [id number]#[id number]:12 7 Normal [facility] eGFRon 02-05-2022 GFR/1.73 sq M.predicted among blacks MDRD (S/P/Bld) [Vol rate/Area] mL/min/{1.73_m2} Normal >=59 [facility] Comment on above: Order Comment: Order added by Discern Expert. Result Comment: eGFR is race adjusted. AA=. Performed By: #### 2 [id number], [id number] #### [facility] [address] [place] [address] GFR/1.73 sq M.predicted among non-blacks MDRD (S/P/Bld) [Vol rate/Area] 59 mL/min/1.73 m2 Normal >=59 [facility] Comment on above: Order Comment: Order added by Discern Expert. Result Comment: Obgyn Hospitalist Physician shayne kidney disease could be indicated at eGFR's of less than 60 mL/min/1.73m2. Kidney failure is indicated at less than 15 mL/min/1.73m2. Performed By: #### 2 [id number], [id number] #### [facility] [address] [place] [address] Coding Summary.on 01-15-2022 Coding Summary. CD:[id number] Gh0bW w+PGhlYWQ+RN0LSWHqM43ynDU glS6TS5fELC3ZFYNQIVOCPP4V IJ2uaRN3CLvgA9OefrTb GciddHEkYZ28QUf3XHG2lEqdS MoupL1qnWJjL7u2YmDgYG43oZ 78MFeuTAPgEsV7KhKjccdtfVD y T7ysGgCxpJVvWbr+PHRhYmxlI HdpZHRoPScxMDAlJyBzdHlsZT 1lUc7fZRExRZHrfEnleELgAyZ j z5swVPPrSJhrGC3dfKbzG4May KY6VRZwe3j8Ow52vUQ+PHRkIH I2vIkuRZwan379MyNey0wtVXS 3 dROeDFboSBC2X14mq0L6YLQrM ALtRBW4vMB4mW1udFuacjirD6 WbvRHwQeB8GIT4kVPriE3umUr n puowvS2rCne+C86CVA9MJPKGE W8DJjy2A8CbOsogvQU+PC90YW UiDN82fFGtpSYtt0kzjUw3VyP w ABEnTGD6jKwpZExsr4EpEGRsZ 83xyCUvo1O1DFOjmHobkRArEo JkoWK6bN8vUKospokue2aunra n Lgznw5wihk29rH99I71sQIeoZ PNbCMQ6ONZcMCMjiNbucz5ekF 9wIi8+FCyyp3mik4ebePk7OgO w YFSnrfDouBarMDJ4n4DkPb79Q 7XwwOjjv5SyQug7ex60zTBxw7 U6bZL1LIjhVMCccL7fIRofHfC 6 VJDlFfLriB71cVShTSjiHi6la JsqhBwvNP8mFBXeoyuiUEDsbI 3aNWQeoPLkzYbkLZ4fBQTamdx m h491EvCkFUW3WBPsiZAhZ6Ota K1hKkZkKPSkKPWnW4GflHAzIC laV391HDruFpP4OXFqalHgA8S s ACKnjQfoCyP2l1Y0Bb1Mi2Mny itwVSJ0KMcoPDJaRqA9KbOcMc M1Q8GsSbz1AVUquUfnGC5rS0F h VYSeqmsjzdjcjCK2MCIoMHYoa K56eQXfNIpuBq1ss0X8j215QN EqGZUctK30Fg4uhLbqPCUdhDC U gA5tvzsjd1unvldlFnHbBAClI Zc3AEl4HYTvlJtfTcQmSQL3Py I7XKT7vHBlsL9mnKvpoqncnJ4 w Oyc+Q10kwW3uLEA8VKG5nrkjA KAicdFeUW45ZI37T9SbAelepB FibGU+IGKlacBedIilZL2tZjP j a2jbl9JyQZvyP2HtCBChTLvkO ja5ZGYsEXJ1lBF9bQ1wUBCmJZ nzg2M0bKL5Z1CikoDlex6ig5n s NVOqONrkJ72hpHXpk1U7GVAvw TH6YWXgfGvnXkLmaC10Nss+PG LhtBljm3YtGngap2afp4xrdSh 9 NoQrFKZmmgOmqSmyWTU4q1PgW g57N90tRQkrNTShNTTnPIXoLL GgwHdvsp5byU2kEk0+PGNvbCB 3 iBN7tC4wEHWuAsZ6WRocR022A jGxqXWeNpyfq6uzv9vvcIm4Xj OvXNEhkaQrqNizTUH7x5LmXl9 8 J96jPWemFQCmURVsWDMrNULez Vehzj7wtI0rUs6+EJ4hx1yqqt 78fR47tYR+WIVpTCI5zOooSRj w XPJqbT9uSOmuGuC0AMGfEaMpt E38kGOrKLpeNl8abYodkYumJR 8gXHJaofirt946PcHzk8voZGI w wJJzNNfaIYC9D62wm1F6BWZlC FJhVJE0dQA4lM6nvHjnkiqucR EliOzdnqPvxTzqBBgqNCtzX10 6 IHRvcDsnPlBhdGllbnQgTmFtZ Ud4N8SsHzl2PXHjmPkmTU4zsK ZyCUtnXe3zvRcxdJxbCH6yHGM p svszk895SpInv7vcWYSlzSBlZ IltGNR8T12df2Z8HGAvFCZdZR T1bIX4sM3gxKfrbdtmxEJnbWn g ufVmkCxdEYbwOZfhD418UAXre ZapRsEovhTqCOJxqLP9LI86FX 55wLLbt8V1gDY6Z5MgDNCwneh t zkedyLO0GVFgNVSqpY06Ye5zn IxtQe2uJNKeAWC7ZANpyJNfC4 UshX4wMpPgKBBuNZEyC1KbdEM t KZgjY083SCilTxF4JYPqyuGnO 0WzMXAwxFabNxF5k6J1Nu0FG7 B8CL11NT82pMVds6D9qZI5B6T h HHBpfkbxrllufTH8WPEaYYGuq P85Ls1nbBrkKh2dQIEyWIV4KH CedGNoC2TnkS9wBjUbYSDuSLM w A3BytFAmKEaxV851AJrySkP6A TSzfpDqA9CjFKAaoAhnJdG1b8 X9Pr5ABEm0DK46PJ67pXJiq2U 5 aZW8F4CcFHQtusafpwvlgSB0B MZxNIGidS99Nu0wkWgbOo3dNP XiWYB9PDLmqYRzT7BvgY1uUyN j LIHpAKPfD3CbhLRcTThzC360X IqsRhC3BZFlygTuJ3UgICQjoX ezTgH9h6F9Nd8HBUMsBO47VUO 5 xZT0RB43OO35V9ReZylwvWVok +PHRhYmxlIHdpZHRoPScxMD ZpHzDilCtxJA5kSv5wRLNmUWB v cOqhsZWwKlInn4cgSPRoTXgxY R4lyLvrQ8BarKC3CZTam0h9Cv 63R73dL2ZymPB+TJDmtKQ9gKQ 0 nF5fIlBwWpN9EVgkB673EiRbs FHmXnimi0vdo5tekFj9AjB9SU DdzeXcnMnnCNJ0e6BkAn04Q39 s IHdpZHRoPSIxNSUiIHZhbGlnb r4gtV2nRh2+WMKtdWF1vUJ9zD 9pOqVnIaT7CLrzI168RvBimEB v Slhun6vrg6jcvJz1JbZeGZJph bAsuLjlBSD3o9BmBr29E4GeuN xwd4FuTlm0wu21qKCae7K2wGO 9 M1NwACKocqjylTEqeMzaIX8mC BIwjhprDVIcpE5oDOYbL5d9Ga BuJyM8NKueP9RmmrN4NCMvpVO g CHrgEIH9D37ic4J8WMOzBGReD ZM5jLX4rA2qfQbyuuljpJPbnW xtebTfoQqpVXitWUntQ829SDA v rYhzNWYhuD9uQUSkuQXaeOlqM C6aYGFibdjaGmAOJ9aQXMPtYK xPVUVMTEEgTDwvdGQ+PHRkIHN 0 fLidIFuhFILwtD6mMQMmW1i5B gOyQtW0JHnoE7BrVWEohnlsOl 38sK0yHsOnFdL2XExzP1KkucR 6 SMOkyDPsBShmRYX4B80rp3N4P JKzBFZqKCZ2eXT5zY3wnMjzmu ogbGVmdDsgdmVydGljYWwtYWx p U326CYEjfFmbUdYiQlE1VzF1G vN5I8UkDkc1NKPdqVijXK1ftL VpFNweKq3oiBcjwFysZC2xLOD p sylhBSPlsK3cJTRxyPQeqQkeR E7uUOHxlawjk647JmHaSHG0PF HcgKAnL9PjuV2rBfFlUCDzHWA w Q3FuuJZkIKrxT737LMaxZgA0J SGrthTnM7BaIOWheIqeUdL9r0 T2Hx81DDUXIZMkumqbyBR+PHR k JKT2xFmvHYawAWDzxY7vYJUwA 3g8JpKbUmR0GOznF9CxQFFlio rgCc25vS9aKuWoAhQ3EWcvJ0K v ggH4BHAmlFAwAOiuQSB1F86ra 9V7LMWmORHvOPX1cHI2rT1iaY lnbjogbGVmdDsgdmVydGljYWw t VNdrM137KHOfiRktOlKvlINeD TwvdGQ+OGOuAZU7bRqhDHqhQX PlpA8rARBqK5r9GsEsKoC8MAh u R4IfZBQklgzgMk63cW0zHqRsD nC0YHdrP9KpbtI2YJVviFCwNY hjKOE5K28pv0P8ROMyXGMnTFS 7 mWI0wS2itRrryopeaHUwgMkeb dFegJpwZEhbWYlkQ501VJIljW ygWy27wHZdzVndkoI1P3CjEya v dHI+UI07REUlTV52gZBscLDki 4pywOn0ZbLzKIPmSOL9eRlfTO rno5RpCCCgN95xqBSiq3A0QYV v cBepjYKwAgPxjUF0xE0yJDsyd cpct9jqqzxcErpsy9kccl37jO 53N93iSOyjDAXlHDVsQBDrKED h nZednm6zwM0bTq0+ZDZipFM3s ZO7hN6eMlBuIeE9BEfhM401Xi XarPMfUzbud9xre2higRg0JbP w YRRjxuMsvYglUIK9z7UmBg57N 29sIHdpZHRoPSIyMCUiIHZhbG etkq7gpM9xZy7+JA8ex3xxwe0 1 xV48qSH+JTQxDTU6zHepEYmgZ TGyiO2zLVarUhA1TIPvZiRxoI 70dAZkMQrbLc6vvZwieRftQB5 w OBMshvzbd713ZvUrd6hcXIKvg HMgBFepOAF3X42kv9I0VHKfNY AwMBT9vVS2bF9pgVykzcodjYQ m aTxkknAvkGraVCioGVuhB710L KGkzKhiNmJwvNVhH8serpUBRA 1lOjwvdGQ+UWDzYFF2qMihKKc w BVXnsY7pZWQnH4e5KpPcWmA1D LvvY4JmuvI5UKJocEIeKHTebO BBdN9scjemv3sfmguxRuNnSPF w NYc5JNs1RCEhvHgpWrSnGPR8B mR3BAM6wKSoaU6igPxbwbfgmA 9wOyc+RklOOjwvdGQ+PHRkIHN 0 aAroBCrzEZKnbB1fSHZuX2h5K oStFyQ4HMnfN4FfbhB1SWTqjZ SbMQDiyKXDcM6tvebvq4gljwj g YvAbSZYzZJy3XAt3PJQdqAgrT gYlZIM4JnL8IWW4yJFlhY7atK gpgxgkpG7wNli+TVJOOjwvdGQ + HPPoOON9oEqzTMblWNCgfP6zQ GJtQ8w6AcOxBzO8RXqrV9Gmro H3GVJyjUEdGMNfwMYGkI1ohzd j e4wptytrEiFqKUNuOKb6VMr8O BNhcXlfDpHzLQE3IbU2RUD3mA QomE6orQelqtjpmU9wZol+UGF 5 DQZ3XC22UQ56W9QsMmfzpDJml +PHRhYmxlIHdpZHRoPScxMD LsVfQbdFzxUP0rYx6eVJBfLPW v bGxh (more content not included)... Normal [facility] Auto Diffon 01-08-2022 Basophils/100 WBC (Bld) 0.6 % Normal 0.0-2.0 [facility] Comment on above: Order Comment: Order Added by Discern Expert. Performed By: #### 2 [id number], [id number] #### [facility] [address] [place] [address] Basophils/Leukocytes Auto (Bld) [Pure # fraction] 0.1 E9/L Normal 0.0-0.2 [facility] Comment on above: Order Comment: Order Added by Discern Expert. Performed By: #### 2 [id number], [id number] #### [facility] [address] [place] [address] Eosinophils/100 WBC (Bld) 1.4 % Normal 0.0-8.0 [facility] Comment on above: Order Comment: Order Added by Samara Expert. Performed By: #### 2 [id number], [id number] #### [facility] [address] [place] [address] Eosinophils/Leukocytes Auto (Bld) [Pure # fraction] 0.2 E9/L Normal 0.0-0.5 [facility] Comment on above: Order Comment: Order Added by Samara Expert. Performed By: #### 2 [id number], [id number] #### [facility] [address] [place] [address] Lymphocytes/100 WBC (Bld) 35.6 % Normal 14.0-50.0 [facility] Comment on above: Order Comment: Order Added by Samara Expert. Performed By: #### 2 [id number], [id number] #### [facility] [address] [place] [address] Lymphocytes/Leukocytes Auto (Bld) [Pure # fraction] 4.2 E9/L High 1.0-4.0 [facility] Comment on above: Order Comment: Order Added by Samara Expert. Performed By: #### 2 [id number], [id number] #### [facility] [address] [place] [address] Monocytes/100 WBC (Bld) 3.0 % Low 4.0-14.0 [facility] Comment on above: Order Comment: Order Added by Samara Expert. Performed By: #### 2 [id number], [id number] #### [facility] [address] [place] [address] Monocytes/Leukocytes Auto (Bld) [Pure # fraction] 0.4 E9/L Normal 0.2-1.0 [facility] Comment on above: Order Comment: Order Added by Samara Expert. Performed By: #### 2 [id number], [id number] #### [facility] [address] [place] [address] Neutrophils/100 WBC (Bld) 59.4 % Normal 36.0-75.0 [facility] Comment on above: Order Comment: Order Added by Discern Expert. Performed By: #### 2 [id number], [id number] #### [facility] [address] [place] [address] Neutrophils/Leukocytes Auto (Bld) [Pure # fraction] 7.0 E9/L Normal 2.0-7.5 [facility] Comment on above: Order Comment: Order Added by Discern Expert. Performed By: #### 2 [id number], [id number] #### [facility] [address] [place] [address] BMPon 01-08-2022 Anion gap [Moles/Vol] 17 mmol/L High 6-16 [facility] Comment on above: Performed By: #### 2 [id number], [id number] #### [facility] [address] [place] [address] Calcium [Mass/Vol] 10.1 mg/dL Normal 8.9-11.1 [facility] Comment on above: Performed By: #### 2 [id number], [id number] #### [facility] [address] [place] [address] Chloride [Moles/Vol] 99 mmol/L Low 101-111 [facility] Comment on above: Performed By: #### 2 [id number], [id number] #### [facility] [address] [place] [address] CO2 [Moles/Vol] 22 mmol/L Normal 21-31 [facility] Comment on above: Performed By: #### 2 [id number], [id number] #### [facility] [address] [place] [address] Creatinine [Mass/Vol] 1.1 mg/dL Normal 0.5-1.3 [facility] Comment on above: Performed By: #### 2 [id number], [id number] #### [facility] [address] [place] [address] Glucose [Mass/Vol] 356 mg/dL High 55-199 [facility] Comment on above: Result Comment: If t his glucose result represents a fasting glucose, interpretation should refer to the following reference range: 55-99 mg/dL Performed By: #### 2 [id number], [id number] #### [facility] [address] [place] [address] Potassium [Moles/Vol] 4.2 mmol/L Normal 3.5-5.3 [facility] Comment on above: Performed By: #### 2 [id number], [id number] #### [facility] [address] [place] [address] Sodium [Moles/Vol] 134 mmol/L Low 135-145 [facility] Comment on above: Performed By: #### 2 [id number], [id number] #### [facility] [address] [place] [address] Urea nitrogen [Mass/Vol] 18 mg/dL Normal 5-21 [facility] Comment on above: Performed By: #### 2 [id number], [id number] #### [facility] [address] [place] [address] Urea nitrogen/Creatinine [Mass ratio] 16 No Units Normal 10-20 [facility] Comment on above: Performed By: #### 2 [id number], [id number] #### [facility] [address] [place] [address] CBC w/ Auto Diffon Erythrocyte distribution width (RBC) [Ratio] 13.5 % Normal 10.9-14.2 [facility] Comment on above: Performed By: #### 2 [id number], [id number] #### [facility] [address] [place] [address] Hematocrit (Bld) [Volume fraction] 46.4 % High 34.0-46.0 [facility] Comment on above: Performed By: #### 2 [id number], [id number] #### [facility] [address] [place] [address] Hemoglobin (Bld) [Mass/Vol] 15.8 g/dL Normal 12.0-16.0 [facility] Comment on above: Performed By: #### 2 [id number], [id number] #### [facility] [address] [place] [address] MCH (RBC) [Entitic mass] 30.4 pg Normal 27.0-34.0 [facility] Comment on above: Performed By: #### 2 525074, [id number] #### [facility] [address] [place] [address] MCHC (RBC) [Mass/Vol] 34.1 g/dL Normal 31.4-36.0 [facility] Comment on above: Performed By: #### 2 [id number], [id number] #### [facility] [address] [place] [address] MCV (RBC) [Entitic vol] 89.1 fL Normal 80.0-100.0 [facility] Comment on above: Performed By: #### 2 [id number], [id number] #### [facility] [address] [place] [address] Platelet mean volume (Bld) [Entitic vol] 9.8 fL Normal 6.4-10.8 [facility] Comment on above: Performed By: #### 2 [id number], [id number] #### [facility] [address] [place] [address] Platelets (Bld) [#/Vol] 252.0 E9/L Normal 150. 0-500. 0 [facility] Comment on above: Performed By: #### 2 [id number], [id number] #### [facility] [address] [place] [address] RBC (Bld) [#/Vol] 5.2 E12/L Normal 4.3-5.9 [facility] Comment on above: Performed By: #### 2 634449, [id number] #### [facility] [address] [place] [address] WBC corrected for nucl RBC Auto (Bld) [#/Vol] 11.8 E9/L High 4.0-11.0 [facility] Comment on above: Performed By: #### 2 676941, [id number] #### [facility] [address] [place] [address] CHEMISTRYOrdered By: SYSTEM SYSTEM on 01-08-2022 Anion [...] rate/Area] mL/min/1.73 m2 Normal >=59mL/min /1.73 m2 FT Chem S GFR/1.73 sq M.predicted among non-blacks MDRD (S/P/Bld) [Vol rate/Area] 53 mL/min/1.73 m2 Low >=59mL/min /1.73 m2 [facility] Chem S Glucose [Mass/Vol] 356 mg/dL High [...] Consent for Treatmenton 12-11 Consent for Treatment [id number]:12 7 Normal [facility] HEMATOLOGYOrdered By: SYSTEM SYSTEM on [...] 9.8 fL Normal 6.4 - 10.8 fL [facility] HemeAutoSS Platelets (Bld) [#/Vol] 252.0 E9/L Normal 150. 0 - 500.0 E9/L [facility] HemeAutoSS RBC (Bld) [#/Vol] 5.2 E12/L Normal 4.3 - 5.9 E12/L [facility] HemeAutoSS WBC corrected for nucl RBC Auto (Bld) [#/Vol] 11.8 E9/L High 4.0 - 11.0 E9/L [facility] HemeAutoSS Pharmacy Officeon 01-08-2022 Pharmacy Office [id number]:1 27 Normal [facility] Physician Orderon 01-08-2022 Physician Order [id number]:12 7 Normal [facility] eGFRon 01-08-2022 GFR/1.73 sq M.predicted among blacks MDRD (S/P/Bld) [Vol rate/Area] mL/min/{1.73_m2} Normal >=59 [facility] Comment on above: Order Comment: Order added by Discern Expert. Result Comment: eGFR is race adjusted. AA=. Performed By: #### 2 [id number], [id number] #### [facility] [address] [place] [address] GFR/1.73 sq M.predicted among non-blacks MDRD (S/P/Bld) [Vol rate/Area] 53 mL/min/1.73 m2 Low >=59 [facility] Comment on above: Order Comment: Order added by Discern Expert. Result Comment: Obgyn Hospitalist Physician shayne kidney disease could be indicated at eGFR's of less than 60 mL/min/1.73m2. Kidney failure is indicated at less than 15 mL/min/1.73m2. Performed By: #### 2 [id number], [id number] #### [facility] [address] [place] [address] PTH INTACTon 09-13-2021 PTH, Intact 17 pg/mL Normal 15-65 [facility] Comment on above: Performed By: #### M G, RENAL, URIC #### [facility] [address] [place] [address] Dr. Tyree Botello HEMOGRAM AND PLATELon 2021 Hematocrit (Bld) [Volume fraction] 46.5 % Normal 36.0-48.0 [facility] Comment on above: Performed By: #### M G, RENAL, URIC #### [facility] [address] [place] [address] Dr. Tyree Botello Hemoglobin (Bld) [Mass/Vol] 15.7 g/dL Normal 12.0-16.0 [facility] Comment on above: Performed By: #### M G, RENAL, URIC #### [facility] [address] [place] [address] Dr. Tyree Botello MCH (RBC) [Entitic mass] 30.0 pg Normal 26.7-34.0 [facility] Comment on above: Performed By: #### M G, RENAL, URIC #### [facility] [address] [place] [address] Dr. Tyree oBtello MCHC (RBC) [Mass/Vol] 33.8 g/dL Normal 29.9-35.2 [facility] Comment on above: Performed By: #### M G, RENAL, URIC #### [facility] [address] [place] [address] Dr. Tyree Botello MCV (RBC) [Entitic vol] 88.9 fL Normal 81.0-99.[address] [facility] Comment on above: Performed By: #### M G, RENAL, URIC #### [facility] [address] [place] [address] Dr. Tyree Botello PLT 261 103/ul Normal 150-[address] [facility] Comment on above: Performed By: #### M G, RENAL, URIC #### [facility] [address] [place] [address] Dr. Tyree Botello RBC 5.23 106/ul Normal 4.20-5.40 [facility] Comment on above: Performed By: #### M G, RENAL, URIC #### [facility] [address] [address] [address] Tyree Botello WBC 11.1 103/ul Critically high 4.0-11.0 [facility] Comment on above: Performed By: #### M G, RENAL, URIC #### [facility] [address] [place] [address] Dr. Tyree Botello MAGNESIUMon 09-12-2021 Magnesium [Mass/Vol] 1.3 mg/dL Critically low 1.8-2.4 [facility] Comment on above: Performed By: #### M G, RENAL, URIC #### [facility] [address] [place] [address] Dr. Tyree Botello RENAL FUNCTION PANELon 09-12 Albumin [Mass/Vol] 3.4 g/dL Normal 3.4-5.0 [facility] Comment on above: Performed By: #### M G, RENAL, URIC #### [facility] [address] [place] [address] Dr. Tyree Botello Calcium [Mass/Vol] 10.3 mg/dL Critically high 8.5-10.[address] [facility] Comment on above: Performed By: #### M G, RENAL, URIC #### [facility] [address] [place] [address] Dr. Tyree Botello Chloride [Moles/Vol] 100 mmol/L Normal 98-[address] [facility] Comment on above: Performed By: #### M G, RENAL, URIC #### [facility] [address] [place] [address] Dr. Tyree Botello CO2 [Moles/Vol] 23.1 mmol/L Normal 21.0-32.0 [facility] Comment on above: Performed By: #### M G, RENAL, URIC #### [facility] [address] [place] [address] Dr. Tyree Botello Creatinine [Mass/Vol] 1.11 mg/dL Critically high 0.55-1.02 [facility] Comment on above: Performed By: #### M G, RENAL, URIC #### [facility] [address] [address] [address] Tyree Botello EGFR-AF SLOVAK >60 Normal >=60 [facility] Comment on above: Performed By: #### M G, RENAL, URIC #### [facility] [address] [address] [address] Tyree Botello EGFR-NON AF [place]OVAK 52 mL/min/1.73m2 Critically low >=60 [facility] Comment on above: Performed By: #### M G, RENAL, URIC #### [facility] [address] [address] [address] Tyree Botello Glucose [Mass/Vol] 239 mg/dL Critically high 74-106 [facility] Comment on above: Performed By: #### M G, RENAL, URIC #### [facility] [address] [place] [address] Dr. Tyree Botello Phosphate [Mass/Vol] 2.6 mg/dL Normal 2.6-4.7 [facility] Comment on above: Performed By: #### M G, RENAL, URIC #### [facility] [address] [address] [address] Tyree Botello Potassium [Moles/Vol] 4.2 mmol/L Normal 3.5-5.1 [facility] Comment on above: Performed By: #### M G, RENAL, URIC #### [facility] [address] [address] [address] Tyree Botello Sodium [Moles/Vol] 137 mmol/L Normal 136-145 [facility] Comment on above: Performed By: #### M G, RENAL, URIC #### [facility] [address] [address] [address] Tyree Botello Urea nitrogen [Mass/Vol] 21.0 mg/dL Critically high 7.0-18 .0 [facility] Comment on above: Performed By: #### M G, RENAL, URIC #### [facility] [address] [address] [address] Tyree Botello UA RANDOM W/MICROSCOPICon BACTERIA MODERATE Abnormal NONE SEEN [facility] Comment on above: Performed By: #### M G, RENAL, URIC #### [facility] [address] [address] [address] Tyree Botello Bilirubin Ql (U) Negative Normal NEGATIVE [facility] Comment on above: Performed By: #### M G, RENAL, URIC #### [facility] [address] [address] [address] Tyree Botello CAST SEEN Abnormal NONE SEEN [facility] Comment on above: Performed By: #### M G, RENAL, URIC #### [facility] [address] [place] [address] Dr. Tyree Botello Clarity (U) CLEAR Normal CLEAR [facility] Comment on above: Performed By: #### M G, RENAL, URIC #### [facility] [address] [place] [address] Dr. Tyree Botello Color (U) YELLOW Normal YELLOW [facility] Comment on above: Performed By: #### M G, RENAL, URIC #### [facility] [address] [place] [address] Dr. Tyree Botello Crystals LM Nom (Urine sed) NONE SEEN Normal NONE SEEN [facility] Comment on above: Performed By: #### M G, RENAL, URIC #### [facility] [address] [place] [address] Dr. Tyree Botello Epithelial cells LM Ql (Urine sed) FEW Abnormal NONE SEEN /RARE [facility] Comment on above: Performed By: #### M G, RENAL, URIC #### [facility] [address] [place] [address] Dr. Tyree Botello Glucose Ql (U) >1000 Abnormal NEGATIVE [facility] Comment on above: Performed By: #### M G, RENAL, URIC #### [facility] [address] [address] [address] Tyree Botello Hemoglobin Ql (U) SMALL Abnormal NEGATIVE [facility] Comment on above: Performed By: #### M G, RENAL, URIC #### [facility] [address] [place] [address] Dr. Tyree Botello HYALINE CAST RARE Normal [facility] Comment on above: Performed By: #### M G, RENAL, URIC #### [facility] [address] [address] [address] Tyree Botello Ketones Ql (U) Negative Normal NEGATIVE [facility] Comment on above: Performed By: #### M G, RENAL, URIC #### [facility] [address] [address] [address] Tyree Botello LEUKOCYTES Negative Normal NEGATIVE [facility] Comment on above: Performed By: #### M G, RENAL, URIC #### [facility] [address] [address] [address] Tyree Botello MUCOUS NONE SEEN Normal NONE SEEN [facility] Comment on above: Performed By: #### M G, RENAL, URIC #### [facility] [address] [place] [address] Dr. Tyree Botello Nitrite Ql (U) Negative Normal NEGATIVE [facility] Comment on above: Performed By: #### M G, RENAL, URIC #### [facility] [address] [place] [address] Dr. Tyree Botello pH (U) 5.5 [pH] Normal 5-[address] [facility] Comment on above: Performed By: #### M G, RENAL, URIC #### [facility] [address] [place] [address] Dr. Tyree Botello RBC 2-5 Abnormal 0-2 [facility] Comment on above: Performed By: #### M G, RENAL, URIC #### [facility] [address] [place] [address] Dr. Tyree Botello SPEC GRAVITY >=1.030 Abnormal 1.005-<=1. 025 [facility] Comment on above: Performed By: #### M G, RENAL, URIC #### [facility] [address] [address] [address] Tyree Botello UA PROTEIN 100 mg/dl Abnormal NEGATIVE/ TRACE [facility] Comment on above: Performed By: #### M G, RENAL, URIC #### [facility] [address] [place] [address] Dr. Tyree Botello Urobilinogen Qn (U) 0.2 {Jennifer'U}/dL Normal 0.2 - 1. [address] [facility] Comment on above: Performed By: #### M G, RENAL, URIC #### [facility] [address] [address] [address] Tyree Botello WBC 5-10 Abnormal NONE SEEN [facility] Comment on above: Performed By: #### M G, RENAL, URIC #### [facility] [address] [address] [address] Tyree Botello URIC ACID SERUMon 09-12-2021 Urate [Mass/Vol] 6.5 mg/dL Critically high 2.6-6.0 [facility] Comment on above: Performed By: #### M G, RENAL, URIC #### [facility] [address] [place] [address] Dr. Tyree Botello URINE T PROTEIN CREAT RATIOo n 09-12-2021 Protein (U) [Mass/Vol] 177.8 mg/dL Critically high <=12.0 [facility] Comment on above: Performed By: #### M G, RENAL, URIC #### [facility] [address] [address] [address] Tyree Botello UR PROT CREAT RAT 1.06 Normal [facility] Comment on above: Performed By: #### M G, RENAL, URIC #### [facility] [address] [place] [address] Dr. Tyree Botello URINE CREAT 168.43 mg/dL Normal 20.00-300. [address] [facility] Comment on above: Performed By: #### M G, RENAL, URIC #### [facility] [address] [place] [address] Dr. Tyree Botello VITAMIN D 25 OHon 09-12-2021 VIT D 25-OH 45.5 ng/mL Normal [facility] Comment on above: Performed By: #### M G, RENAL, URIC #### [facility] [address] [place] [address] Dr. Tyree Botello VIT D RANGES SEE BELOW Normal [facility] Comment on above: Result Comment: <20 ng/mL Vit D deficient 20 - <30 ng/mL Vit D insufficient 30 - 100 ng/mL Vit D sufficient >100 ng/mL Potential Toxicity Performed By: #### M G, RENAL, URIC #### [facility] [address] [place] [address] Dr. Tyree Botello CBC AUTO DIFFon 08-30-2021 BASO # 0.1 103/ul Normal 0.0-0.1 [facility] Comment on above: Performed By: #### M G, RENAL, URIC #### [facility] [address] [place] [address] Dr. Tyree Botello Basophils/100 WBC (Bld) 0.5 % Normal 0.2-2.[address] [facility] Comment on above: Performed By: #### M G, RENAL, URIC #### [facility] [address] [place] [address] Dr. Tyree Botello EO # 0.1 103/ul Normal 0.0-0.7 [facility] Comment on above: Performed By: #### M G, RENAL, URIC #### [facility] [address] [place] [address] Dr. Tyree Botello Eosinophils/100 WBC (Bld) 1.1 % Normal 0.9-7.0 [facility] Comment on above: Performed By: #### M Quinton, RENAL, URIC #### [facility] [address] [place] [address] Dr. Tyree Botello Erythrocyte distribution width (RBC) [Ratio] 12.7 % Normal 11.0-15.0 [facility] Comment on above: Performed By: #### M G, RENAL, URIC #### [facility] [address] [place] [address] Dr. Tyree Botello Hematocrit (Bld) [Volume fraction] 44.6 % Normal 36.0-48.0 [facility] Comment on above: Performed By: #### M G, RENAL, URIC #### [facility] [address] [place] [address] Dr. Tyree Botello Hemoglobin (Bld) [Mass/Vol] 15.0 g/dL Normal 12.0-16.0 [facility] Comment on above: Performed By: #### M G, RENAL, URIC #### [facility] [address] [address] [address] Tyree Botello IG # 0.05 10e3/ul Critically high 0.00-0.03 [facility] Comment on above: Performed By: #### M G, RENAL, URIC #### [facility] [address] [address] [address] Tyree Botello IG % 0.4 % Normal 0.0-0.5 [facility] Comment on above: Performed By: #### M G, RENAL, URIC #### [facility] [address] [address] [address] Tyree Botello LYMPH # 3.6 103/ul Normal 1.2-3.8 [facility] Comment on above: Performed By: #### M G, RENAL, URIC #### [facility] [address] [place] [address] Dr. Tyree Botello Lymphocytes/100 WBC (Bld) 29.8 % Normal 20.5-60.0 [facility] Comment on above: Performed By: #### M G, RENAL, URIC #### [facility] [address] [address] [address] Tyree Botello MANUAL DIFF REQ NO Normal [facility] Comment on above: Performed By: #### M G, RENAL, URIC #### [facility] [address] [address] [address] Tyree Botello MCH (RBC) [Entitic mass] 29.9 pg Normal 26.7-34.0 [facility] Comment on above: Performed By: #### M G, RENAL, URIC #### [facility] [address] [address] [address] Tyree Botello MCHC (RBC) [Mass/Vol] 33.6 g/dL Normal 29.9-35.2 [facility] Comment on above: Performed By: #### M G, RENAL, URIC #### [facility] [address] [address] [address] Tyree Botello MCV (RBC) [Entitic vol] 88.8 fL Normal 81.0-99.[address] [facility] Comment on above: Performed By: #### M G, RENAL, URIC #### [facility] [address] [place] [address] Dr. Tyree Botello MONO # 0.6 103/ul Normal 0.3-0.8 [facility] Comment on above: Performed By: #### M G, RENAL, URIC #### [facility] [address] [place] [address] Dr. Tyree Botello Monocytes/100 WBC (Bld) 5.2 % Normal 1.7-12.[address] [facility] Comment on above: Performed By: #### M G, RENAL, URIC #### [facility] [address] [place] [address] Dr. Tyree Botello NEUT # 7.5 103/ul Critically high 1.4-6.5 [facility] Comment on above: Performed By: #### M G, RENAL, URIC #### [facility] [address] [place] [address] Dr. Tyree Botello Neutrophils/100 WBC (Bld) 63.0 % Normal 43.0-75.0 [facility] Comment on above: Performed By: #### M G, RENAL, URIC #### [facility] [address] [place] [address] Dr. Tyree Botello Platelet mean volume (Bld) [Entitic vol] 11.4 fL Normal 9.5-13.5 [facility] Comment on above: Performed By: #### M G, RENAL, URIC #### [facility] [address] [place] [address] Dr. Tyree Botello PLT 225 103/ul Normal 150-[address] [facility] Comment on above: Performed By: #### M G, RENAL, URIC #### [facility] [address] [place] [address] Dr. Tyree Botello RBC 5.02 106/ul Normal 4.20-5.40 [facility] Comment on above: Performed By: #### M G, RENAL, URIC #### [facility] [address] [place] [address] Dr. Tyree Botello WBC 12.0 103/ul Critically high 4.0-11.0 [facility] Comment on above: Performed By: #### M G, RENAL, URIC #### [facility] [address] [address] [address] Tyree Botello DEPAKENE/VALPROICon 08-31-19 DEPAKENE 53.3 ug/ml Normal 50.0-100.0 [facility] Comment on above: Performed By: #### M G, RENAL, URIC #### [facility] [address] [address] [address] Tyree Botello LIPID PROFILEon 08-30-2021 CHOL-HDL RATIO NORM SEE BELOW Normal [facility] Comment on above: Result Comment: 3.3 - 4.4 LOW RISK 4.4 - 7.1 AVERAGE RISK 7.1 - 11.0 MODERATE RISK >11.0 HIGH RISK Performed By: #### M G, RENAL, URIC #### [facility] [address] [address] [address] Tyree Botello Cholesterol [Mass/Vol] 160 mg/dL Normal <=200 [facility] Comment on above: Performed By: #### M G, RENAL, URIC #### [facility] [address] [place] [address] Dr. Tyree Botello Cholesterol in HDL [Mass/Vol] 43 mg/dL Normal 40-60 [facility] Comment on above: Performed By: #### M G, RENAL, URIC #### [facility] [address] [address] [address] Tyree Botello Cholesterol in LDL [Mass/Vol] 76.0 mg/dL Normal [facility] Comment on above: Performed By: #### M G, RENAL, URIC #### [facility] [address] [address] [address] Tyree Botello Cholesterol.total/Choles terol in HDL [Mass ratio] 3.7 {ratio} Normal [facility] Comment on above: Performed By: #### M G, RENAL, URIC #### [facility] [address] [address] [address] Tyree Botello HDL NORMAL > or = 60 mg/dl - LO W CARDIOVASCULAR RISK <40 mg/dl - HIGH CARDIOVASCULAR RISK Normal [facility] Comment on above: Performed By: #### M G, RENAL, URIC #### [facility] [address] [address] [address] Tyree Botello LDL CALC NORMAL SEE BELOW Normal [facility] Comment on above: Result Comment: <100 mg/dl OPTIMAL 100 - 129 mg/dl NEAR OR ABOVE OPTIMAL 130 - 159 mg/dl BORDERLINE HIGH 160 - 189 mg/dl HIGH >190 mg/dl VERY HIGH Performed By: #### M G, RENAL, URIC #### [facility] [address] [address] [address] Tyree Botello Triglyceride [Mass/Vol] 205 mg/dL Critically high <=150 [facility] Comment on above: Performed By: #### M G, RENAL, URIC #### [facility] [address] [address] [address] Tyree Botello VLDL CALC 41.0 mg/dL Normal [facility] Comment on above: Performed By: #### M G, RENAL, URIC #### [facility] [address] [address] [address] Tyree Botello LIVER PROFILEon 08-30-2021 Albumin [Mass/Vol] 3.0 g/dL Critically low 3.4-5.0 Th [facility] Comment on above: Performed By: #### M G, RENAL, URIC #### [facility] [address] [address] [address] Tyree Botello Albumin/Globulin [Mass ratio] 0.8 {ratio} Normal [facility] Comment on above: Performed By: #### M G, RENAL, URIC #### [facility] [address] [address] [address] Tyree Botello ALP [Catalytic activity/Vol] 63 U/L Normal 46-116 [facility] Comment on above: Performed By: #### M G, RENAL, URIC #### [facility] [address] [address] [address] Tyree Botello ALT [Catalytic activity/Vol] 49 U/L Normal 14-59 [facility] Comment on above: Performed By: #### M G, RENAL, URIC #### [facility] [address] [address] [address] Tyree Botello AST [Catalytic activity/Vol] 23 U/L Normal 15-37 [facility] Comment on above: Performed By: #### M G, RENAL, URIC #### [facility] [address] [address] [address] Tyree Botello BILI, CONJUGATED 0.1 mg/dL Normal 0.0-0.2 [facility] Comment on above: Performed By: #### M G, RENAL, URIC #### [facility] [address] [address] [address] Tyree Botello Bilirubin [Mass/Vol] 0.4 mg/dL Normal 0.2-1.0 [facility] Comment on above: Performed By: #### M G, RENAL, URIC #### [facility] [address] [place] [address] Dr. Tyree Botello Globulin (S) [Mass/Vol] 3.7 g/dL Normal [facility] Comment on above: Performed By: #### M G, RENAL, URIC #### [facility] [address] [address] [address] Tyree Botello Protein [Mass/Vol] 6.7 g/dL Normal 6.4-8.2 [facility] Comment on above: Performed By: #### M G, RENAL, URIC #### [facility] [address] [place] [address] Dr. Tyree Botello Complete Blood Count with Au to Diffon 07-17-2021 BASOABS 97 cells/uL Normal 0-200 [facility] Comment on above: Order Comment: [facility] performed at: [facility], [address] [place] [address], [address] [place] [address], [place], [address], Filling Winder: Senthil Ramsey MD [facility] Date/Time: [id number] [facility] Results Received Date/Time: [id number] [facility] Reported Date/Time: FASTING: UNKNOWN Performed By: #### L IPD, CMP, TSH, CBCAD #### [facility] Default [address] [place] [address] Basophils/100 WBC (Bld) 0.9 % Normal [facility] Comment on above: Order Comment: [facility] performed at: [facility], [address] [place] [address], [address] [place] [address], [address] [place] [address], Filling Winder: Senthil Ramsey MD [facility] Date/Time: [facility] Results Received Date/Time: [facility] Reported Date/Time: FASTING: UNKNOWN Performed By: #### L IPD, CMP, TSH, CBCAD #### [facility] [address] [place] [address] EOSABS 97 cells/uL Normal 15-500 [facility] Comment on above: Order Comment: [facility] performed at: [facility], [address] [place] [address], [address] [place] [address], [address] [place] [address], Filling Winder: Senthil Ramsey MD [facility] Date/Time: [facility] Results Received Date/Time: [facility] Reported Date/Time: FASTING: UNKNOWN Performed By: #### L IPD, CMP, TSH, CBCAD #### [facility] [address] [place] [address] Eosinophils/100 WBC (Bld) 0.9 % Normal [facility] Comment on above: Order Comment: [facility] performed at: [facility], [address] [place] [address], [address] [place] [address], [address] [place] [address], Filling Winder: Senthil Ramsey MD [facility] Date/Time: [facility] Results Received Date/Time: [facility] Reported Date/Time: FASTING: UNKNOWN Performed By: #### L IPD, CMP, TSH, CBCAD #### [facility] [address] [place] [address] Erythrocyte distribution width (RBC) [Ratio] 13.6 % Normal 11.0-15.0 [facility] [place] [facility] Comment on above: Order Comment: [facility] performed at: [facility], [address] [place] [address], [address] [place] [address], [address] [place] [address], Filling Winder: Senthil Ramsey MD [facility] Date/Time: [facility] Received Date/Time: [facility] Reported Date/Time: FASTING: UNKNOWN Performed By: #### L IPD, CMP, TSH, CBCAD #### [facility] [address] [place] [address] Hematocrit (Bld) [Volume fraction] 48.3 % High 35.0-45.0 [facility] Comment on above: Order Comment: [facility] performed at: [facility], [address] [place] [address], [address] [place] [address], [address] [place] [address], Filling Winder: Senthil Ramsey MD [facility] Date/Time: [facility] Results Received Date/Time: [facility] Reported Date/Time: FASTING: UNKNOWN Performed By: #### L IPD, CMP, TSH, CBCAD #### [facility] [address] [place] [address] Hemoglobin (Bld) [Mass/Vol] 16.7 g/dL High 11.7-15.5 [facility] Comment on above: Order Comment: [facility] performed at: [facility] [employer] [facility], [address] [place] [address], [address] [place] [address], [address] [place] [address], Filling Winder: Senthil Ramsey MD [facility] Date/Time: [facility] Results Received Date/Time: [facility] Reported Date/Time: FASTING: UNKNOWN Performed By: #### L IPD, CMP, TSH, CBCAD #### [facility] [address] [place] [address] Lymphocytes (Bld) [#/Vol] 4.428 10*3/uL High 850-3900 [facility] [employer] Comment on above: Order Comment: [facility] performed at: [employer] [facility], [address] [place] [address], [address] [place] [address], [address] [place] [address], Filling Winder: Senthil Ramsey MD [facility] Date/Time: [facility] Results Received Date/Time: [facility] Reported Date/Time: FASTING: UNKNOWN Performed By: #### L IPD, CMP, TSH, CBCAD #### [facility] [address] [place] [address] Lymphocytes/100 WBC (Bld) 41.0 % Normal [facility] [employer] Comment on above: Order Comment: [facility] performed at: [facility], [address] [place] [address], [address] [place] [address], [address] [place] [address], Filling Winder: Senthil Ramsey MD [facility] Date/Time: [facility] Results Received Date/Time: [facility] Reported Date/Time: FASTING: UNKNOWN Performed By: #### L IPD, CMP, TSH, CBCAD #### [facility] [address] [place] [address] MCH (RBC) [Entitic mass] 31.0 pg Normal 27.0-33.0 [facility] Comment on above: Order Comment: [facility] performed at: [facility] [employer] [facility], [address] [place] [address], [address] [place] [address], [address] [place] [address], Filling Winder: Senthil Ramsey MD [facility] Date/Time: [facility] Results Received Date/Time: [facility] Reported Date/Time: FASTING: UNKNOWN Performed By: #### L IPD, CMP, TSH, CBCAD #### [facility] [address] [place] [address] MCHC (RBC) [Mass/Vol] 34.6 g/dL Normal 32.0-36.[address] [facility] Comment on above: Order Comment: [facility] performed at: [facility], [address] [place] [address], [address] [place] [address], [address] [place] [address], Filling Winder: Senthil Ramsey MD [facility] Date/Time: [facility] Results Received Date/Time: [facility] Reported Date/Time: FASTING: UNKNOWN Performed By: #### L IPD, CMP, TSH, CBCAD #### [facility] [address] [place] [address] MCV (RBC) [Entitic vol] 89.6 fL Normal 80.0-100.0 [facility] Comment on above: Order Comment: [facility] performed at: [facility], [address] [place] [address], [address] [place] [address], [address] [place] [address], Filling Winder: Senthil Ramsey MD [facility] Date/Time: [facility] Results Received Date/Time: [facility] Reported Date/Time: FASTING: UNKNOWN Performed By: #### L IPD, CMP, TSH, CBCAD #### [facility] [address] [place] [address] MONOABS 605 cells/uL Normal 200-950 [facility] Comment on above: Order Comment: [facility] performed at: [facility], [address] [place] [address], [address] [place] [address], [address] [place] [address], Filling Winder: Senthil Ramsey MD [facility] Date/Time: [facility] Results Received Date/Time: [facility] Reported Date/Time: FASTING: UNKNOWN Performed By: #### L IPD, CMP, TSH, CBCAD #### [facility] [address] [place] [address] Monocytes/100 WBC (Bld) 5.6 % Normal [facility] Comment on above: Order Comment: [facility] performed at: [employer] [facility], [address] [place] [address], [address] [place] [address], [address] [place] [address], Filling Winder: Senthil Ramsey MD [facility] Date/Time: [facility] Results Received Date/Time: [facility] Reported Date/Time: [id number] FASTING: UNKNOWN Performed By: #### L IPD, CMP, TSH, CBCAD #### [facility] Default [address] [place] [address] Neutrophils (Bld) [#/Vol] 5.573 10*3/uL Normal 4309-9600 [facility] [employer] Comment on above: Order Comment: [facility] performed at: [facility], [facility], [address] [place] [address], [address] [place] [address], Filling Winder: Senthil Ramsey MD [facility] Date/Time: [facility] Results Received Date/Time: [facility] Reported Date/Time: FASTING: UNKNOWN Performed By: #### L IPD, CMP, TSH, CBCAD #### [facility] Default [address] [place] [address] Neutrophils/100 WBC (Bld) 51.6 % Normal [facility] [employer] Comment on above: Order Comment: [facility] performed at: [employer] [facility], 5 [facility], [address] [place] [address], [address] [place] [address], Filling Winder: Senthil Ramsey MD [facility] Date/Time: [facility] Results Received Date/Time: [facility] Reported Date/Time: FASTING: UNKNOWN Performed By: #### L IPD, CMP, TSH, CBCAD #### [facility] Default [address] [place] [address] Platelet mean volume (Bld) [Entitic vol] 11.4 fL Normal 7.5-12.5 [facility] [employer] Comment on above: Order Comment: [facility] performed at: [employer] [facility], [address] [place] [address], [address] [place] [address], [address] [place] [address], Filling Winder: Senthil Ramsey MD [facility] Date/Time: [facility] Results Received Date/Time: [facility] Reported Date/Time: FASTING: UNKNOWN Performed By: #### L IPD, CMP, TSH, CBCAD #### [facility] Default [address] [place] [address] Platelets (Bld) [#/Vol] 239 10*3/uL Normal 140-400 [facility] Comment on above: Order Comment: [facility] performed at: [facility], [address] [place] [address], [address] [place] [address], [address] [place] [address], Filling Winder: Senthil Ramsey MD [facility] Date/Time: [facility] Results Received Date/Time: [facility] Reported Date/Time: FASTING: UNKNOWN Performed By: #### L IPD, CMP, TSH, CBCAD #### [facility] Default [address] [place] [address] RBC (Bld) [#/Vol] 5.39 10*6/uL High 3.80-5.10 [facility] Specialist Comment on above: Order Comment: [facility] performed at: [facility], [address] [place] [address], [address] [place] [address], [address] [place] [address], Filling Winder: Senthil Ramsey MD [facility] Date/Time: [facility] Results Received Date/Time: [facility] Reported Date/Time: FASTING: UNKNOWN Performed By: #### L IPD, CMP, TSH, CBCAD #### [facility] Default [address] [place] [address] WBC (Bld) [#/Vol] 10.8 10*3/uL Normal 3.8-10.8 [facility] Comment on above: Order Comment: [facility] performed at: [facility], [address] [place] [address], [address] [place] [address], [address] [place] [address], Filling Winder: Senthil Ramsey MD [facility] Date/Time: [facility] Results Received Date/Time: [facility] Reported Date/Time: FASTING: UNKNOWN Performed By: #### L IPD, CMP, TSH, CBCAD #### [facility] Default [address] [place] [address] Comprehensive Metabolic Pane [place] 07-17-2021 Albumin [Mass/Vol] 4.2 g/dL Normal 3.6-5.1 [facility] Specialist Comment on above: Order Comment: [facility] performed at: [employer] [facility], [address] [place] [address], [address] [place] [address], [address] [place] [address], Filling Winder: Senthil Ramsey MD [facility] Date/Time: [facility] Results Received Date/Time: [facility] Reported Date/Time: FASTING: UNKNOWN Performed By: #### L IPD, CMP, TSH, CBCAD #### [facility] Default [address] [place] [address] Albumin/Globulin [Mass ratio] 1.4 {ratio} Normal 1.0-2.5 [facility] [employer] Comment on above: Order Comment: [facility] performed at: [employer] [facility], [address] [place] [address], [address] [place] [address], [address] [place] [address], Filling Winder: Senthil Ramsey MD [facility] Date/Time: [facility] Results Received Date/Time: [facility] Reported Date/Time: FASTING: UNKNOWN Performed By: #### L IPD, CMP, TSH, CBCAD #### [facility] Default [address] [place] [address] ALP [Catalytic activity/Vol] 65 U/L Normal 31-125 [facility] [employer] Comment on above: Order Comment: [facility] performed at: [employer] [facility], [address] [place] [address], [address] [place] [address], [address] [place] [address], Filling Winder: Senthil Ramsey MD [facility] Date/Time: [facility] Results Received Date/Time: [facility] Reported Date/Time: FASTING: UNKNOWN Performed By: #### L IPD, CMP, TSH, CBCAD #### [facility] Default [address] [place] [address] ALT [Catalytic activity/Vol] 30 U/L High 6-29 [facility] [employer] Comment on above: Order Comment: [facility] performed at: [employer] [facility], [address] [place] [address], [address] [place] [address], [address] [place] [address], Filling Winder: Senthil Ramsey MD [facility] Date/Time: [facility] Results Received Date/Time: [facility] Reported Date/Time: FASTING: UNKNOWN Performed By: #### L IPD, CMP, TSH, CBCAD #### [facility] Default [address] [place] [address] Anion gap [Moles/Vol] 20 mmol/L Normal 12-[address] [facility] Comment on above: Order Comment: [facility] performed at: [facility], [address] [place] [address], [address] [place] [address], [address] [place] [address], Filling Winder: Senthil Ramsey MD [facility] Date/Time: [facility] Results Received Date/Time: [facility] Reported Date/Time: FASTING: UNKNOWN Result Comment: Effe ctive 03/16/2019 reference range changed. Performed By: #### L IPD, CMP, TSH, CBCAD #### [facility] Default [address] [place] [address] AST [Catalytic activity/Vol] 15 U/L Normal 10-35 [facility] Specialist Comment on above: Order Comment: [facility] performed at: [facility], [address] [place] [address], [address] [place] [address], [address] [place] [address], Filling Winder: Senthil Ramsey MD [facility] Date/Time: [facility] Results Received Date/Time: [facility] Reported Date/Time: FASTING: UNKNOWN Performed By: #### L IPD, CMP, TSH, CBCAD #### [facility] Default [address] [place] [address] Bilirubin [Mass/Vol] 0.4 mg/dL Normal 0.2-1.2 [facility] Specialist Comment on above: Order Comment: [facility] performed at: [facility], [address] [place] [address], [address] [place] [address], [address] [place] [address], Filling Winder: Senthil Ramsey MD [facility] Date/Time: [facility] Results Received Date/Time: [facility] Reported Date/Time: FASTING: UNKNOWN Performed By: #### L IPD, CMP, TSH, CBCAD #### [facility] Default [address] [place] [address] BUN/CREA 24 NOT APPLICABLE Normal 6-22 [facility] Clay Pigeon Setter Comment on above: Order Comment: [facility] Testing performed at: [facility], [address] [place] [address], [address] [place] [address], [address] [place] [address], Filling Winder: Senthil Ramsey MD [facility] Collection Date/Time: [facility] Results Received Date/Time: [facility] Reported Date/Time: FASTING: UNKNOWN Performed By: #### L IPD, CMP, TSH, CBCAD #### [facility] [address] [place] [address] Calcium [Mass/Vol] 10.2 mg/dL Normal 8.6-10.2 [facility] Clay Pigeon Setter Comment on above: Order Comment: [facility] Testing performed at: [facility], [address] [place] [address], [address] [place] [address], [address] [place] [address], Filling Winder: Senthil Ramsey MD [facility] Collection Date/Time: [facility] Results Received Date/Time: [facility] Reported Date/Time: FASTING: UNKNOWN Performed By: #### L IPD, CMP, TSH, CBCAD #### [facility] [address] [place] [address] Chloride [Moles/Vol] 103 mmol/L Normal 98-110 Hue [place] Clay Pigeon Setter Comment on above: Order Comment: [facility] Testing performed at: [facility], [address] [place] [address], [address] [place] [address], [address] [place] [address], Filling Winder: Senthil Ramsey MD [facility] Collection Date/Time: [facility] Results Received Date/Time: [facility] Reported Date/Time: FASTING: UNKNOWN Performed By: #### L IPD, CMP, TSH, CBCAD #### [facility] [address] [place] [address] CO2 [Moles/Vol] 22 mmol/L Normal 20-32 [facility] Comment on above: Order Comment: [facility] Testing performed at: [facility], [address] [place] [address], [address] [place] [address], [address] [place] [address], Filling Winder: Senthil Ramsey MD [facility] Collection Date/Time: [facility] Results Received Date/Time: [facility] Reported Date/Time: FASTING: UNKNOWN Performed By: #### L IPD, CMP, TSH, CBCAD #### [facility] [address] [place] [address] Creatinine [Mass/Vol] 0.75 mg/dL Normal 0.50-1.10 [facility] Comment on above: Order Comment: [facility] Testing performed at: [facility], [address] [place] [address], [address] [place] [address], [address] [place] [address], Filling Winder: Senthil Ramsey MD [facility] Collection Date/Time: [facility] Results Received Date/Time: [facility] Reported Date/Time: FASTING: UNKNOWN Performed By: #### L IPD, CMP, TSH, CBCAD #### [facility] [address] [place] [address] eGFRAA ([facility]) 108 mL/min/1.73m2 Normal > OR = 60 [facility] Comment on above: Order Comment: [facility] Testing performed at: [facility], [address] [place] [address], [address] [place] [address], [address] [place] [address], Filling Winder: Senthil Ramsey MD [facility] Collection Date/Time: [facility] Results Received Date/Time: [facility] Reported Date/Time: FASTING: UNKNOWN Performed By: #### L IPD, CMP, TSH, CBCAD #### [facility] [address] [place] [address] eGFRNAA ([facility]) 94 mL/min/1.73m2 Normal > OR = 60 [facility] Clay Pigeon Setter Comment on above: Order Comment: [facility] Testing performed at: [facility], [address] [facility], [address] [place] [address], [address] [place] [address], Filling Winder: Senthil Ramsey MD [facility] Collection Date/Time: [facility] Results Received Date/Time: [facility] Reported Date/Time: FASTING: UNKNOWN Performed By: #### L IPD, CMP, TSH, CBCAD #### [facility] Default [address] [place] [address] Globulin (S) [Mass/Vol] 3.0 g/dL Normal 1.9-3.7 N [facility] Clay Pigeon Setter Comment on above: Order Comment: [facility] Testing performed at: [facility], [address] [place] [address], [address] [place] [address], [address] [place] [address], Filling Winder: Senthil Ramsey MD [facility] Collection Date/Time: [facility] Results Received Date/Time: [facility] Reported Date/Time: FASTING: UNKNOWN Performed By: #### L IPD, CMP, TSH, CBCAD #### [facility] Default [address] [place] [address] Glucose [Mass/Vol] 132 mg/dL High 65-99 [facility] Clay Pigeon Setter Comment on above: Order Comment: [facility] Testing performed at: [facility], [address] [place] [address], [address] [place] [address], [address] [place] [address], Filling Winder: Senthil Ramsey MD [facility] Collection Date/Time: [facility] Results Received Date/Time: [facility] Reported Date/Time: FASTING: UNKNOWN Result Comment: Fasting reference interval For someone without known diabetes, a glucose value >125 mg/dL indicates that they may have diabetes and this should be confirmed with a follow-up test. Performed By: #### L IPD, CMP, TSH, CBCAD #### [facility] Default [address] [place] [address] Potassium [Moles/Vol] 3.9 mmol/L Normal 3.5-5.3 [place] Clay Pigeon Setter Comment on above: Order Comment: [facility] Testing performed at: [facility], [address] [facility], [address] [place] [address], [phone], Filling Winder: Senthil Ramsey MD [facility] Collection Date/Time: [facility] Results Received Date/Time: [facility] Reported Date/Time: FASTING: UNKNOWN Performed By: #### L IPD, CMP, TSH, CBCAD #### [facility] Default [address] [place] [address] Protein [Mass/Vol] 7.2 g/dL Normal 6.1-8.1 Latrell sanches [place] Clay Pigeon Setter Comment on above: Order Comment: [facility] Testing performed at: [facility], [address] [facility], [address] [place] [address], [phone], Filling Winder: Senthil Ramsey MD [facility] Collection Date/Time: [facility] Results Received Date/Time: [facility] Reported Date/Time: FASTING: UNKNOWN Performed By: #### L IPD, CMP, TSH, CBCAD #### [facility] Default [address] [place] [address] Sodium [Moles/Vol] 141 mmol/L Normal 135-146 Latrell sanches [place] Clay Pigeon Setter Comment on above: Order Comment: [facility] Testing performed at: [facility], [address] [facility], [address] [place] [address], [phone], Filling Winder: Senthil Ramsey MD [facility] Collection Date/Time: [facility] Results Received Date/Time: [facility] Reported Date/Time: FASTING: UNKNOWN Performed By: #### L IPD, CMP, TSH, CBCAD #### [facility] Default [address] [place] [address] Urea nitrogen [Mass/Vol] 18 mg/dL Normal 7-25 [facility] Clay Pigeon Setter Comment on above: Order Comment: [facility] Testing performed at: [facility], [address] [place] [address], [address] [place] [address], [address] [place] [address], Filling Winder: Senthil Ramsey MD [facility] Collection Date/Time: [facility] Results Received Date/Time: [facility] Reported Date/Time: FASTING: UNKNOWN Performed By: #### L IPD, CMP, TSH, CBCAD #### [facility] Default [address] [place] [address] Lipid Panelon 07-17-2021 Cholesterol [Mass/Vol] 306 mg/dL High <200 [facility] above: Order Comment: [facility] Testing performed at: [facility], [address] [place] [address], [address] [place] [address], [address] [place] [address], Filling Winder: Senthil Ramsey MD [facility] Collection Date/Time: [facility] Results Received Date/Time: [facility] Reported Date/Time: FASTING: UNKNOWN Performed By: #### L IPD, CMP, TSH, CBCAD #### [facility] Default [address] [place] [address] Cholesterol in HDL [Mass/Vol] 49 mg/dL Low > OR = 50 [facility] Clay Pigeon Setter Comment on above: Order Comment: [facility] Testing performed at: [facility], [address] [place] [address], [address] [place] [address], [address] [place] [address], Filling Winder: Senthil Ramsey MD [facility] Collection Date/Time: [facility] Results Received Date/Time: [facility] Reported Date/Time: FASTING: UNKNOWN Performed By: #### L IPD, CMP, TSH, CBCAD #### [facility] Default [address] [place] [address] LDLD SEE NOTE Normal [facility] Clay Pigeon Setter Comment on above: Order Comment: [facility] Testing performed at: [facility], [address] [facility], [address] [place] [address], [phone], Filling Winder: Senthil Ramsey MD [facility] Collection Date/Time: [facility] [...] LDL-C. Nabil SS et al. CHRISTIN. 2013;310(19): 7413-6355 ([email or web address]) Performed By: #### L IPD, CMP, TSH, CBCAD #### [facility] Default [address] [place] [address] NON HDL CHOLESTEROL 257 mg/dL (calc) High <130 [facility] Comment on above: Order Comment: [facility] Testing performed at: [facility], [facility], [address] [place] [address], [address] [place] [address], [phone], Filling Winder: Senthil Ramsey MD [facility] Collection Date/Time: [facility] [...] TSH, CBCAD #### [facility] Default [address] [place] [address] Triglyceride [Mass/Vol] 403 mg/dL High <150 [facility] Comment on above: Order Comment: [facility] Testing performed at: [facility], [address], [address] [place] [address], [id number], Filling Winder: Senthil Ramsey MD [facility] Collection Date/Time: [facility] Results Received Date/Time: [facility] Reported Date/Time: FASTING: UNKNOWN Result Comment: If a non-fasting specimen was collected, consider repeat triglyceride testing on a fasting specimen if clinically indicated. Leonie et al. J. of Clin. Lipidol. 2015;9:129-169. Performed By: #### L IPD, CMP, TSH, CBCAD #### [facility] Default [address] [place] [address] TSHon 07-17-2021 TSH Qn 0.95 m[IU]/L Normal [facility] Comment on above: Order Comment: [facility] Testing performed at: [facility], [address], [address] [place], [address], Filling Winder: Senthil Ramesy MD [facility] Collection Date/Time: [facility] Results Received Date/Time: [facility] Reported Date/Time: FASTING: UNKNOWN Result Comment: Refe rence Range > or = 20 Years 0.40-4.50 Ranges First trimester 0.26-2.66 Second trimester 0.55-2.73 Third trimester 0.43-2.91 Performed By: #### L IPD, CMP, TSH, CBCAD #### [facility] Default [address] [place] [address] XR Spine Lumbar Complete w/F levi AND Garrison 05-25-2021 XR Spine Lumbar Complete w/Flex AND [...] by Rich Soriano on 05/26/2021 0756 Normal [facility] Specialist Laboratory - Hematology and Cell countson 07-22-2020 Nucleated RBC/100 WBC (Bld) [Ratio] 0.2 % 0-0.5 [facility] Vital Signs Date Time Vital Sign Value Performing Clinician Facility 05-19-2024 15:25-0400 Body height 165.1 cm Laverne Petznick DO Work Phone: [facility] 05-19-2024 15:25-0400 Body mass index (BMI) [Ratio] 33.61 kg/m2 Laverne Petznick DO Work Phone: [facility] 05-19-2024 15:25-0400 Body temperature 98.71 [degF] Laverne Petznick DO Work Phone: [facility] 05-19-2024 15:25-0400 Body weight 91.63 kg Laverne Petznick DO Work Phone: [facility] 05-19-2024 15:25-0400 Diastolic blood pressure 74 mm[Hg] Laverne Petznick DO Work Phone: [facility] 05-19-2024 15:25-0400 Heart rate 83 /min Laverne Petznick DO Work Phone: [facility] 05-19-2024 15:25-0400 SaO2% (BldA) [Mass fraction] 96 % Lavenre Petznick DO Work Phone: [facility] 05-19-2024 15:25-0400 Systolic blood pressure 130 mm[Hg] Laverne Petznick DO Work Phone: [facility] 05-14-2024 14:22-0500 Diastolic blood pressure 88 mm[Hg] Magalie LESTER Work Phone: [facility] 05-14-2024 14:22-0500 Heart rate 81 /min Magalie LESTER Work Phone: [facility] 05-14-2024 14:22-0500 Respiratory rate 16 /min Magalie LESTER Work Phone: [facility] 05-14-2024 14:22-0500 SaO2% (BldA) [Mass fraction] 98 % Magalie LESTER Work Phone: [facility] 05-14-2024 14:22-0500 Systolic blood pressure 148 mm[Hg] Magalie LESTER Work Phone: [facility] 05-07-2024 14:18-0500 Body mass index (BMI) [Ratio] 33.25 kg/m2 Kala Lloyd MD Work Phone: [facility] 05-07-2024 14:18-0500 Body weight 90.63 kg Kala Lloyd MD Work Phone: [facility] 05-07-2024 14:18-0500 Diastolic blood pressure 74 mm[Hg] Kala Lloyd MD Work Phone: [facility] 05-07-2024 14:18-0500 Heart rate 78 /min Kala Lloyd MD Work Phone: [facility] 05-07-2024 14:18-0500 SaO2% (BldA) [Mass fraction] 98 % Kala Lloyd MD Work Phone: [facility] 05-07-2024 14:18-0500 Systolic blood pressure 144 mm[Hg] Kala Lloyd MD Work Phone: [facility] 05-05-2024 14:38-0500 Body height 165.1 cm Kala Lloyd MD Work Phone: [facility] 05-05-2024 14:38-0500 Body mass index (BMI) [Ratio] 33.45 kg/m2 Kala Lloyd MD Work Phone: [facility] 05-05-2024 14:38-0500 Body weight 91.17 kg Kala Lloyd MD Work Phone: [facility] 05-05-2024 14:38-0500 Diastolic blood pressure 88 mm[Hg] Kala Lloyd MD Work Phone: [facility] 05-05-2024 14:38-0500 Heart rate 74 /min Kala Lloyd MD Work Phone: [facility] 05-05-2024 14:38-0500 Respiratory rate 18 /min Kala Lloyd MD Work Phone: [facility] 05-05-2024 14:38-0500 SaO2% (BldA) [Mass fraction] 98 % Kala Lloyd MD Work Phone: [facility] 05-05-2024 14:38-0500 Systolic blood pressure 144 mm[Hg] Kala Lloyd MD Work Phone: [facility] 04-09-2024 16:35-0500 Body height 165.1 cm Eliazar Pires DPM Work Phone: [facility] 04-09-2024 16:35-0500 Body mass index (BMI) [Ratio] 33.28 kg/m2 Eliazar Pires DPM Work Phone: [facility] 04-09-2024 16:35-0500 Body weight 90.72 kg Eliazar Pires DPM Work Phone: [facility] 04-09-2024 16:35-0500 Respiratory rate 18 /min Eliazar Pires DPM Work Phone: [facility] 04-02-2024 13:04-0500 Diastolic blood pressure 110 mm[Hg] Magalie LESTER Work Phone: [facility] 04-02-2024 13:04-0500 Heart rate 89 /min Magalie Green PA Work Phone: [facility] 04-02-2024 13:04-0500 Respiratory rate 18 /min Magalie Green PA Work Phone: [facility] 04-02-2024 13:04-0500 SaO2% (BldA) [Mass fraction] 97 % Magalie LESTER Work Phone: [facility] 04-02-2024 13:04-0500 Systolic blood pressure 157 mm[Hg] Magalie LESTER Work Phone: [facility] 01-31-2024 11:44-0500 Body height 165.1 cm Kala Lloyd MD Work Phone: [facility] 01-31-2024 11:44-0500 Body mass index (BMI) [Ratio] 33.32 kg/m2 Kala Lloyd MD Work Phone: [facility] 01-31-2024 11:44-0500 Body weight 90.81 kg Kala Lloyd MD Work Phone: [facility] 01-31-2024 11:44-0500 Diastolic blood pressure 78 mm[Hg] Kala Lloyd MD Work Phone: [facility] 01-31-2024 11:44-0500 Heart rate 98 /min Kala Lloyd MD Work Phone: [facility] 01-31-2024 11:44-0500 Respiratory rate 18 /min Kala Lloyd MD Work Phone: [facility] 01-31-2024 11:44-0500 SaO2% (BldA) [Mass fraction] 96 % Kala Lloyd MD Work Phone: [facility] 01-31-2024 11:44-0500 Systolic blood pressure 130 mm[Hg] Kala Lloyd MD Work Phone: [facility] 01-21-2024 12:33-0500 Diastolic blood pressure 100 mm[Hg] Magalie Green PA Work Phone: [facility] 01-21-2024 12:33-0500 Heart rate 88 /min Magalie Green PA Work Phone: [facility] 01-21-2024 12:33-0500 Respiratory rate 20 /min Magalie Green PA Work Phone: [facility] 01-21-2024 12:33-0500 Systolic blood pressure 170 mm[Hg] Magalie Green PA Work Phone: [facility] 01-20-2024 13:02-0500 Body height 165.1 cm Laverne Petznick DO Work Phone: [facility] 01-20-2024 13:02-0500 Body mass index (BMI) [Ratio] 33.28 kg/m2 Laverne Petznick DO Work Phone: [facility] 01-20-2024 13:02-0500 Body temperature 98.6 [degF] Laverne Petznick DO Work Phone: [facility] 01-20-2024 13:02-0500 Body weight 90.72 kg Laverne Petznick DO Work Phone: [facility] 01-20-2024 13:02-0500 Diastolic blood pressure 80 mm[Hg] Laverne Petznick DO Work Phone: [facility] 01-20-2024 13:02-0500 Heart rate 100 /min Laverne Petznick DO Work Phone: [facility] 01-20-2024 13:02-0500 SaO2% (BldA) [Mass fraction] 96 % Laverne Petznick DO Work Phone: [facility] 01-20-2024 13:02-0500 Systolic blood pressure 154 mm[Hg] Laverne Petznick DO Work Phone: [facility] 01-16-2024 15:21-0500 Body height 165.1 cm Eliazar Pires DPM Work Phone: [facility] 01-16-2024 15:21-0500 Body mass index (BMI) [Ratio] 34.28 kg/m2 Eliazar Pires DPM Work Phone: [facility] 01-16-2024 15:21-0500 Body weight 93.44 kg Eliazar Pires DPM Work Phone: [facility] 01-16-2024 15:21-0500 Diastolic blood pressure 80 mm[Hg] Eliazar Pires DPM Work Phone: [facility] 01-16-2024 15:21-0500 Heart rate 78 /min Eliazar Pires DPM Work Phone: [facility] 01-16-2024 15:21-0500 Systolic blood pressure 126 mm[Hg] Eliazarmar Pires DPM Work Phone: [facility] 12-30-2023 13:37-0400 Body height 165.1 cm Danii Manley MD Work Phone: [facility] 12-30-2023 13:37-0400 Body mass index (BMI) [Ratio] 34.28 kg/m2 Danii Manley MD Work Phone: [facility] 12-30-2023 13:37-0400 Body weight 93.44 kg Danii Manley MD Work Phone: [facility] 12-30-2023 13:37-0400 Diastolic blood pressure 68 mm[Hg] Danii Manley MD Work Phone: [facility] 12-30-2023 13:37-0400 Heart rate 88 /min Danii Manley MD Work Phone: [facility] 12-30-2023 13:37-0400 Respiratory rate 18 /min Danii Manley MD Work Phone: [facility] 12-30-2023 13:37-0400 Systolic blood pressure 140 mm[Hg] Danii Manley MD Work Phone: [facility] 12-11-2023 13:31-0400 Body height 162.6 cm Live Verhoff PA-C Work Phone: [facility] 12-11-2023 13:31-0400 Body mass index (BMI) [Ratio] 34.16 kg/m2 Live Verhoff PA-C Work Phone: [facility] 12-11-2023 13:31-0400 Body weight 90.27 kg Live Verhoff PA-C Work Phone: [facility] 12-11-2023 13:31-0400 Diastolic blood pressure 92 mm[Hg] Live Verhoff PA-C Work Phone: [facility] 12-11-2023 13:31-0400 Heart rate 83 /min Live Astridhoff PA-C Work Phone: [facility] 12-11-2023 13:31-0400 SaO2% (BldA) [Mass fraction] 97 % Live Astridhoff PA-C Work Phone: [facility] 12-11-2023 13:31-0400 Systolic blood pressure 152 mm[Hg] Live Astridhoff PA-C Work Phone: [facility] 11-21-2023 14:29-0400 Body height 165.1 cm CASHIER MANAGERGunnar Chavez Work Phone: [facility] 11-21-2023 14:29-0400 Body mass index (BMI) [Ratio] 33.4 kg/m2 CASHIER MANAGERGnunar Chavez Work Phone: [facility] 11-21-2023 14:29-0400 Body temperature 97.4 [degF] TAMMIE Chavez Work Phone: [facility] 11-21-2023 14:29-0400 Body weight 91.17 kg TAMMIE Chavez Work Phone: [facility] 11-21-2023 14:29-0400 Diastolic blood pressure 99 mm[Hg] TAMMIE Chavez Work Phone: [facility] 11-21-2023 14:29-0400 Heart rate 109 /min TAMMIE Chavez Work Phone: [facility] 11-21-2023 14:29-0400 Respiratory rate 16 /min CASHIER MANAGERGunnar Chavez Work Phone: [facility] 11-21-2023 14:29-0400 SaO2% (BldA) [Mass fraction] 98 % CASHIER MANAGERGunnar Chavez Work Phone: [facility] 11-21-2023 14:29-0400 Systolic blood pressure 167 mm[Hg] TAMMIE Chavez Work Phone: [facility] 11-07-2023 14:55-0400 Body height 165.1 cm Eliazar Pires DPM Work Phone: [facility] 11-07-2023 14:55-0400 Body mass index (BMI) [Ratio] 34.61 kg/m2 Eliazar Pires DPM Work Phone: [facility] 11-07-2023 14:55-0400 Body weight 94.35 kg Eliazar Pires DPM Work Phone: [facility] 11-07-2023 14:55-0400 Diastolic blood pressure 80 mm[Hg] Eliazar Pires DPM Work Phone: [facility] 11-07-2023 14:55-0400 Heart rate 79 /min Eliazar Pires DPM Work Phone: [facility] 11-07-2023 14:55-0400 Systolic blood pressure 126 mm[Hg] Eliazar Pires DPM Work Phone: [facility] 10-23-2023 13:18-0400 Diastolic blood pressure 90 mm[Hg] Live Verhoff PA-C Work Phone: [facility] 10-23-2023 13:18-0400 Heart rate 87 /min Live Verhoff PA-C Work Phone: [facility] 10-23-2023 13:18-0400 Respiratory rate 16 /min Live Verhoff PA-C Work Phone: [facility] 10-23-2023 13:18-0400 SaO2% (BldA) [Mass fraction] 98 % Live Verhoff PA-C Work Phone: [facility] 10-23-2023 13:18-0400 Systolic blood pressure 139 mm[Hg] Live Verhoff PA-C Work Phone: [facility] 10-01-2023 14:45-0400 Body height 165.1 cm TAMMIE Chavez Work Phone: [facility] 10-01-2023 14:45-0400 Body mass index (BMI) [Ratio] 34 kg/m2 TAMMIE Chavez Work Phone: [facility] 10-01-2023 14:45-0400 Body weight 92.64 kg TAMMIE Chavez Work Phone: [facility] 06-12-2023 10:56-0400 Body mass index (BMI) [Ratio] 33.81 kg/m2 Live Verhoff PA-C [facility] 06-12-2023 10:56-0400 Body weight 89.36 kg Live Verhoff PA-C [facility] 06-12-2023 10:56-0400 Diastolic blood pressure 75 mm[Hg] Live Verhoff PA-C Work Phone: [facility] 06-12-2023 10:56-0400 Heart rate 90 /min Live Verhoff PA-C Work Phone: [facility] 06-12-2023 10:56-0400 Respiratory rate 18 /min Live Verhoff PA-C Work Phone: [facility] 06-12-2023 10:56-0400 SaO2% (BldA) [Mass fraction] 97 % Live Verhoff PA-C [facility] 06-12-2023 10:56-0400 Systolic blood pressure 152 mm[Hg] Live Verhoff PA-C [facility] 04-25-2023 14:26-0500 Body height 165.1 cm [facility] 04-25-2023 14:26-0500 Body mass index (BMI) [Ratio] 34 kg/m2 [facility] 04-25-2023 14:26-0500 Body temperature 97.2 [degF] [facility] 04-25-2023 [id number] Body weight 92.7 kg [facility] 04-25-2023 14:26-0500 Diastolic blood pressure 70 mm[Hg] [facility] 04-25-2023 14:26-0500 Heart rate 102 /min [facility] 04-25-2023 [id number] Respiratory rate 16 /min [facility] 04-25-2023 14:26-0500 SaO2% (BldA) [Mass fraction] 97 % [facility] 04-25-2023 14:26-0500 Systolic blood pressure 139 mm[Hg] [facility] 04-11-2023 14:14-0500 Body height 165.1 cm Eliazar Pires DPM Work Phone: [facility] 04-11-2023 14:14-0500 Body mass index (BMI) [Ratio] 33.45 kg/m2 Eliazar Pires DPM Work Phone: [facility] 04-11-2023 14:14-0500 Body weight 91.17 kg Eliazar Pires DPM Work Phone: [facility] 04-11-2023 14:14-0500 Diastolic blood pressure 80 mm[Hg] Eliazar Pires DPM Work Phone: [facility] 04-11-2023 14:14-0500 Heart rate 82 /min Eliazar Pires DPM Work Phone: [facility] 04-11-2023 14:14-0500 Systolic blood pressure 130 mm[Hg] Eliazar Pires DPM Work Phone: [facility] 03-15-2023 12:54-0500 Body height 162.6 cm Bird Dykes MD Work Phone: [facility] 03-15-2023 12:54-0500 Body mass index (BMI) [Ratio] 35.7 kg/m2 Bird Dykes MD Work Phone: [facility] 03-15-2023 12:54-0500 Body weight 94.35 kg Bird Dykes MD Work Phone: [facility] 03-15-2023 12:54-0500 Diastolic blood pressure 80 mm[Hg] Bird Dykes MD Work Phone: [facility] 03-15-2023 12:54-0500 Heart rate 81 /min Bird Dykes MD Work Phone: [facility] 03-15-2023 12:54-0500 SaO2% (BldA) [Mass fraction] 98 % Bird Dykes MD Work Phone: [facility] 03-15-2023 12:54-0500 Systolic blood pressure 140 mm[Hg] Bird Dykes MD Work Phone: [facility] 10-18-2022 15:00-0400 Body height 165.1 cm Nir Danis Other [employer] Other 10-18-2022 15:00-0400 Body mass index (BMI) [Ratio] 33.08 kg/m2 Nir Danis Other [employer] Other 10-18-2022 15:00-0400 Body temperature 97.1 [degF] Nir Danis Other [employer] Other 10-18-2022 15:00-0400 Body weight 90.18 kg Nir Danis Other [employer] Other 10-18-2022 15:00-0400 Diastolic blood pressure 98 mm[Hg] Nir Danis Other [employer] Other 10-18-2022 15:00-0400 Respiratory rate 18 /min Nir Danis Other [employer] Other 10-18-2022 15:00-0400 SaO2% (BldA) [Mass fraction] 98 % Nir Danis Other [employer] [facility] [employer] Other 10-18-2022 15:00-0400 Systolic blood pressure 167 mm[Hg] Nir Danis Other [employer] Other 07-12-2022 14:00-0400 Diastolic blood pressure 94 mm[Hg] MD Kala Lloyd Work Phone: [facility] 07-12-2022 14:00-0400 Heart rate 86 /min MD Kala Lloyd Work Phone: [facility] 07-12-2022 14:00-0400 Respiratory rate 16 /min MD Kala Lloyd Work Phone: [facility] 07-12-2022 14:00-0400 SaO2% (BldA) [Mass fraction] 99 % MD Kala Lloyd Work Phone: [facility] 07-12-2022 14:00-0400 Systolic blood pressure 165 mm[Hg] MD Kala Lloyd Work Phone: [facility] 07-12-2022 11:44-0400 Body height 162.56 cm MD Kala Lloyd Work Phone: [facility] 07-12-2022 11:44-0400 Body temperature 98.6 [degF] MD Kala Lloyd Work Phone: [facility] 07-12-2022 11:44-0400 Body weight 94.34 kg MD Kala Lloyd Work Phone: [facility] 06-04-2022 14:15-0400 Body height 165.1 cm Imad Asaad Other [employer] Other 06-04-2022 14:15-0400 Body mass index (BMI) [Ratio] 32.95 kg/m2 Imad Asaad Other [employer] Other 06-04-2022 14:15-0400 Body weight 89.81 kg Imad Asaad Other [employer] Other 06-04-2022 14:15-0400 Diastolic blood pressure 90 mm[Hg] Imad Asaad Other [employer] Other 06-04-2022 14:15-0400 Systolic blood pressure 145 mm[Hg] Imad Asaad Other [employer] Other 05-18-2022 11:46-0500 Body temperature 97.8 [degF] MD aKla Lloyd Work Phone: [facility] 05-18-2022 11:46-0500 Body weight 89.4 kg MD Kala Lloyd Work Phone: [facility] 05-18-2022 11:46-0500 Diastolic blood pressure 86 mm[Hg] MD Kala Lloyd Work Phone: [facility] 05-18-2022 11:46-0500 Heart rate 94 /min MD Kala Lloyd Work Phone: [facility] 05-18-2022 11:46-0500 Respiratory rate 16 /min MD Kala Lloyd Work Phone: [facility] 05-18-2022 11:46-0500 SaO2% (BldA) [Mass fraction] 98 % MD Kala Lloyd Work Phone: [facility] 05-18-2022 11:46-0500 Systolic blood pressure 149 mm[Hg] MD Kala Lloyd Work Phone: [facility] 04-12-2022 12:40-0500 Body height 165.1 cm Nir Danis Other [employer] Other 04-12-2022 12:40-0500 Body mass index (BMI) [Ratio] 32.85 kg/m2 Nir Danis Other [employer] Other 04-12-2022 12:40-0500 Body temperature 96.7 [degF] Nir Danis Other [employer] Other 04-12-2022 12:40-0500 Body weight 89.54 kg Nir Danis Other [employer] Other 04-12-2022 12:40-0500 Diastolic blood pressure 84 mm[Hg] Nir Danis Other [employer] Other 04-12-2022 12:40-0500 Respiratory rate 18 /min Nir Danis Other [employer] Other 04-12-2022 12:40-0500 SaO2% (BldA) [Mass fraction] 97 % Nir Danis Other [employer] Other 04-12-2022 12:40-0500 Systolic blood pressure 139 mm[Hg] Nir Danis Other [employer] Other 09-14-2021 13:00-0400 Body height 165.1 cm Nir Danis Other [employer] Other 09-14-2021 13:00-0400 Body mass index (BMI) [Ratio] 34.44 kg/m2 Nir Danis Other [employer] Other 09-14-2021 13:00-0400 Body temperature 96.6 [degF] Nir Danis Other [employer] Other 09-14-2021 13:00-0400 Body weight 93.9 kg Nir Danis Other [employer] Other 09-14-2021 13:00-0400 Diastolic blood pressure 80 mm[Hg] Nir Danis Other [employer] Other 09-14-2021 13:00-0400 Respiratory rate 18 /min Nir Danis Other [employer] Other 09-14-2021 13:00-0400 SaO2% (BldA) [Mass fraction] 97 % Nir Danis Other [employer] Other 09-14-2021 13:00-0400 Systolic blood pressure 132 mm[Hg] Nir Danis Other [employer] Other 04-22-2020 14:49-0500 Body height 165.1 cm MD Kala Lloyd Work Phone: [facility] Encounters Encounter Date Encounter Type Care Provider Facility Start: 06-09-2024 End: 06-09-2024 Refill Danii Manley MD Work Phone: [facility] Comment on above: Vitamin D deficiency Start: 05-29-2024 End: 05-29-2024 ambulatory KALA LLOYD Not Available Start: 05-21-2024 End: 05-21-2024 Bamboo flowsheet Lindy Valentino [facility] Work Phone: [facility] Start: 05-21-2024 End: 05-21-2024 Bamboo flowsheet Lindy Valentino [facility] Work Phone: [facility] Start: 05-21-2024 End: 05-21-2024 Clinical Support Lindy Gumaro Chicho [facility] Work Phone: [facility] Comment on above: Bipolar 1 disorder ( CMS/HCC) Start: 05-19-2024 End: 05-19-2024 Office outpatient visit 25 minutes Laverne Porter DO Work Phone: [facility] 230 Comment on above: Type 2 diabetes rj itus with peripheral neuropathy (CMS/HCC) (Primary Dx); Type 2 diabetes mellitus with stage 3a chronic kidney disease, with long-term current use of insulin (HCC) (CMS/HCC); 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 associated with type 2 diabetes mellitus (CMS/HCC); Type 2 diabetes mellitus with hyperglycemia, with long-term current use of insulin (CMS/HCC) Start: 05-19-2024 End: 05-19-2024 ambulatory LAVERNE PORTER Not Available Start: 05-18-2024 End: 05-18-2024 Telephone encounter Laverne Porter DO Work Phone: [facility] 230 Comment on above: Appointment Confirma tion Start: 05-14-2024 End: 05-14-2024 Office outpatient visit 15 minutes Magalie LESTER Work Phone: [facility] Comment on above: Lumbosacral spondylo sis without myelopathy (Primary Dx) Start: 05-14-2024 End: 05-14-2024 ambulatory MAGALIE GREEN [facility] Start: 05-10-2024 End: 05-10-2024 Orders Only Kala Lloyd MD Work Phone: [facility] Comment on above: Constipation, unspec ified constipation type (Primary Dx) Start: 05-07-2024 End: 05-07-2024 Patient encounter status Kala Lloyd MD Work Phone: [facility] Work Phone: Start: 05-07-2024 End: 05-07-2024 Periodic preventive med est patient 40-64yrs Kala Lloyd MD Work Phone: [facility] Comment on above: Routine general medi julio examination at a health care facility (Primary Dx); Adrenal mass (CMS/HCC); High cholesterol (CMS/HCC); COPD (chronic obstructive pulmonary disease) with chronic bronchitis (CMS/HCC); Bipolar affective disorder, currently depressed, moderate (CMS/HCC); Type 2 diabetes mellitus with stage 3a chronic kidney disease, with long-term current use of insulin (HCC) (CMS/HCC); Acquired absence of both cervix and uterus; Simple chronic bronchitis (CMS/HCC); Mixed hyperlipidemia (CMS/HCC); Primary hypertension (CMS/HCC); Type 2 diabetes mellitus with peripheral neuropathy (CMS/HCC); Stage 3a chronic kidney disease (HCC) (CMS/HCC); 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 associated with type 2 diabetes mellitus ([facility]/HCC); Generalized abdominal pain; Encounter for screening mammogram for malignant neoplasm of breast Start: 05-07-2024 End: 05-07-2024 ambulatory KALA LLOYD Not Available Start: 05-07-2024 End: 05-07-2024 Bamboo flowsheet Kala Lloyd MD Work Phone: [facility] Start: 05-07-2024 End: 05-07-2024 Bamboo flowsheet Kala Lloyd MD Work Phone: [facility] Start: 05-05-2024 End: 05-05-2024 Office outpatient visit 25 minutes Kala Lloyd MD Work Phone: [facility] Comment on above: Hematuria, unspecifi ed type (Primary Dx); Generalized abdominal pain Start: 05-05-2024 End: 05-05-2024 ambulatory KALA LLOYD Not Available Start: 05-05-2024 End: 05-05-2024 Bamboo flowsheet Kala Lloyd MD Work Phone: [facility] Start: 05-05-2024 End: 05-05-2024 Bamboo flowskalli Lloyd MD Work Phone: [facility] Start: 05-04-2024 End: 05-04-2024 Telephone encounter Kala Lloyd MD Work Phone: [facility] Start: 04-30-2024 End: 04-30-2024 Clinical Support Lindy Valentino LPCC Work Phone: [facility] Comment on above: Bipolar 1 disorder ( CMS/HCC) Start: 04-30-2024 End: 04-30-2024 Bamboo flowsheet Lindy Valentino LPCC Work Phone: [facility] Start: 04-30-2024 End: 04-30-2024 Bamboo flowsheet Lindy Valentino LPCC Work Phone: [facility] Start: 04-24-2024 End: 04-24-2024 ambulatory [facility] Start: 04-09-2024 End: 04-09-2024 Office outpatient visit 15 minutes Eliazar Pires DPM Work Phone: [facility] Comment on above: Metatarsalgia, left foot (Primary Dx); Diabetes 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 polyneuropathy, with long-term current use of insulin (CMS/HCC); Pain due to onychomycosis of toenails of both feet Start: 04-09-2024 End: 04-09-2024 ambulatory ELIAZAR PIRES Not Available Start: 04-09-2024 End: 04-09-2024 Bamboo flowsheet Eliazar Pires DPM Work Phone: [facility] Start: 04-09-2024 End: 04-09-2024 Bamboo flowsheet Eliazar Pires DPM Work Phone: [facility] Start: 04-08-2024 End: 04-08-2024 Bamboo flowsheet Lindy Valentino LPCC Work Phone: [facility] Start: 04-08-2024 End: 04-08-2024 Bamboo flowsheet Lindy Valentino LPCC Work Phone: [facility] Start: 04-08-2024 End: 04-08-2024 Clinical Support Lindy Valentino LPCC Work Phone: [facility] Comment on above: Bipolar 1 disorder ( CMS/HCC) Start: 04-02-2024 End: 04-02-2024 Office outpatient visit 25 minutes Magalie Green PA Work Phone: [facility] Comment on above: Spinal stenosis of l umbar region with neurogenic claudication (Primary Dx) Start: 04-02-2024 End: 04-02-2024 ambulatory [facility] Start: 03-19-2024 End: 03-19-2024 Bamboo flowsheet [facility] Work Phone: [facility] Start: 03-19-2024 End: 03-19-2024 Bamboo flowsheet Lindy Valentino [facility] Work Phone: [facility] Start: 03-19-2024 End: 03-19-2024 Clinical Support Lindy Valentino LPCC Work Phone: [facility] Comment on above: Bipolar 1 disorder ( CMS/HCC) Start: 02-28-2024 End: 02-28-2024 ambulatory REYMUNDO Bang GIRON [facility] Start: 02-25-2024 Office outpatient vi sit 15 minutes Sterling Flower tatiana [facility] Start: 02-25-2024 ambulatory Sterling [facility] Start: 02-24-2024 End: 04-16-2024 Telephone encounter Kala Lloyd MD Work Phone: [facility] Start: 01-31-2024 End: 01-31-2024 Bamboo flowsheet Kala Lloyd MD Work Phone: [facility] Start: 01-31-2024 End: 01-31-2024 Bamboo flowsheet Kala Lloyd MD Work Phone: [facility] Start: 01-31-2024 End: 01-31-2024 Office outpatient visit 25 minutes Kala Lloyd MD Work Phone: [facility] Comment on above: Acute bronchitis, un specified organism (Primary Dx); Chronic diarrhea Start: 01-31-2024 End: 01-31-2024 ambulatory KALA LLOYD Not Available Start: 01-23-2024 End: 01-23-2024 Bamboo flowsheet Lindy Valentino [facility] Work Phone: [facility] Start: 01-23-2024 End: 01-23-2024 Bamboo flowsheet Lindy Naik Chicho [facility] Work Phone: [facility] Start: 01-23-2024 End: 01-23-2024 Clinical Support Lindy Valentino [facility] Work Phone: [facility] Comment on above: Bipolar 1 disorder ( CMS/HCC) Start: 01-21-2024 End: 01-21-2024 Office outpatient visit 25 minutes [facility] Jd LESTER Work Phone: [facility] Comment on above: Disorder of sacrum ( Primary Dx) Start: 01-21-2024 End: 01-21-[address] [facility] Aftab TIN [facility] Start: 01-20-2024 End: 01-20-2024 Office outpatient visit 25 minutes Laverne Porter DO Work Phone: [facility] 230 Comment on above: Mild nonproliferativ e 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 associated with type 2 diabetes mellitus (CMS/HCC) (Primary Dx); Type 2 diabetes mellitus with peripheral neuropathy (CMS/HCC); Type 2 diabetes mellitus with stage 3a chronic kidney disease, with long-term current use of insulin (HCC) (CMS/HCC) Start: 01-20-2024 End: 01-20-2024 ambulatory LAVERNE PORTER Not Available Start: 01-16-2024 End: 01-16-2024 Office outpatient visit 15 minutes Eliazar Pires DPM Work Phone: [facility] Comment on above: Metatarsalgia, left foot (Primary Dx); Diabetes 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 polyneuropathy, with long-term current use of insulin ([facility]); Pain due to onychomycosis of toenails of both feet Start: 01-16-2024 End: 01-16-2024 ambulatory ELIAZAR PIRES Not Available Start: 01-16-2024 End: 01-16-2024 Bamboo flowsheet Eliazar Pires DPM Work Phone: [facility] Start: 01-16-2024 End: 01-16-2024 Bamboo flowsheet Eliazar Pires DPM Work Phone: [facility] Start: 12-30-2023 End: 12-30-2023 Office outpatient visit 25 minutes Danii Manley MD Work Phone: [facility] Comment on above: Hypercalcemia (Prima ry Dx); Vitamin D deficiency; Benign neoplasm of parathyroid gland; Hypomagnesemia; Abnormal kidney function Start: 12-30-2023 End: 12-30-2023 ambulatory DANII MANLEY Not Available Start: 12-27-2023 End: 12-27-2023 ambulatory [facility] Start: 12-27-2023 End: 12-27-2023 ambulatory [facility] Start: 2023 End: 2023 Clinisync Result Encounter Generic External Data Provider [facility] External Department Unsolicited Start: 2023 End: 2023 Clinisync Result Encounter Generic External Data Provider [facility] External Department Unsolicited Start: 12-23-2023 End: 12-23-2023 Bamboo flowsheet Lindy Valentino [facility] Work Phone: [facility] Start: 12-23-2023 End: 12-23-2023 Bamboo flowsheet Lindy Valentino [facility] Work Phone: [facility] Start: 12-23-2023 End: 12-23-2023 Clinical Support Lindy Valentino [facility] Work Phone: [facility] Comment on above: Bipolar 1 disorder ( [facility]) Start: 12-11-2023 End: 12-11-2023 ambulatory [facility] Gunnar [facility] Start: 12-11-2023 End: 12-11-2023 Office outpatient visit 25 minutes [facility] TAYLER-C Work Phone: [facility] Comment on above: Lumbar spondylosis ( Primary Dx); Disorder of sacrum; Spinal stenosis of lumbar region with neurogenic claudication Start: 12-06-2023 End: 12-06-2023 Refill Jasmin Travis NP Work Phone: [facility] Comment on above: Seasonal allergic rh initis due to pollen Start: 12-02-2023 End: 12-02-2023 Clinical Support Lindy Valentino [facility] Work Phone: [facility] Comment on above: Bipolar 1 disorder ( [facility]) Start: 11-23-2023 End: 11-23-2023 ambulatory [facility] Start: 11-22-2023 End: 11-22-2023 ambulatory [facility] Start: 11-22-2023 End: 11-22-2023 ambulatory [facility] Start: 11-21-2023 End: 11-21-2023 ambulatory TAMMIE Chavez Work Phone: [facility] Work Phone: Start: 11-21-2023 End: 11-21-2023 Patient encounter procedure TAMMIE Chavez Work Phone: [facility] Jean Work Phone: Start: 11-13-2023 End: 11-13-2023 Clinisync Result Encounter Generic External Data Provider [facility] External Department Unsolicited Start: 11-13-2023 End: 11-13-2023 Clinisync Result Encounter Generic External Data Provider [facility] External Department Unsolicited Start: 11-13-2023 Non-patient / Non-visit TAMMIE Chavez Work Phone[facility] Work Phone: Start: 11-12-2023 ambulatory LIVE Quinonez LACHO [facility] Start: 11-07-2023 End: 11-07-2023 Office outpatient visit 10 minutes Eliazar Pires DPM Work Phone: [facility] Comment on above: Metatarsalgia, left foot (Primary Dx); Diabetes 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 polyneuropathy, with long-term current use of insulin ([facility]); Onychomycosis; Toe pain, bilateral Start: 11-07-2023 End: 11-07-2023 ambulatory ELIAZAR PIRES Not Available Start: 11-07-2023 End: 11-07-2023 Bamboo flowsheet Eliazar Pires DPM Work Phone: [facility] Start: 11-07-2023 End: 11-07-2023 Bamboo flowsheet Eliazar Pires DPM Work Phone: [facility] Start: 11-04-2023 End: 11-04-2023 Bamboo flowsheet Lindy Valentino [facility] Work Phone: [facility] Start: 11-04-2023 End: 11-04-2023 Bamboo flowsheet Lindy Valentino LPCC Work Phone: [facility] Start: 11-04-2023 End: 11-04-2023 Clinical Support Lindy Valentino LPCC Work Phone: [facility] Comment on above: Bipolar 1 disorder ( CMS/HCC) Start: 10-29-2023 Registered Recurring TAMMIE Chavez Work Phone: [facility] Start: 10-24-2023 End: 11-10-2023 ambulatory LIVE RESENDIZCATY [facility] Start: 10-23-2023 End: 10-23-2023 Office outpatient visit 25 minutes Live Gunnar Resendizeleonora BENAVIDES Work Phone: [facility] Comment on above: Lumbar spondylosis ( Primary Dx); Trochanteric bursitis of left hip; Disorder of sacrum Start: 10-23-2023 End: 10-23-2023 [facility]ulatory [facility] Start: 10-21-2023 End: 10-21-2023 ambulatory LAVERNE Nova [place] Not Available Start: 10-21-2023 End: 10-21-2023 ambulatory RALPH OJEDA Not Available Start: 10-01-2023 End: 10-01-2023 ambulatory TAMMIE Chavez Work Phone: [facility] Work Phone: Start: 10-01-2023 End: 10-01-2023 Patient encounter procedure TAMMIE Chavez Work Phone: [facility] Work Phone: Start: 09-30-2023 End: 09-30-2023 Patient encounter procedure TAMMIE Chavez Work Phone: [facility] Work Phone: Start: 09-30-2023 End: 09-30-2023 ambulatory TAMMIE Chavez Work Phone: [facility] Work Phone: Start: 09-28-2023 End: 09-28-2023 ambulatory SYEDA Aftab HUI [facility] Start: 09-27-2023 End: 09-27-2023 ambulatory REYMUNDO GIRON [facility] Start: 09-24-2023 Registered Recurring TAMMIE Chavez Work Phone: [facility] Start: 09-03-2023 End: 09-03-2023 ambulatory LINDY VALENTINO Not Available Start: 08-29-2023 End: 08-29-2023 ambulatory ELIAZAR PIRES Not Available Start: 08-23-2023 End: 08-23-2023 ambulatory [facility] Start: 08-12-2023 End: 08-12-2023 ambulatory LINDY CORMIERDARO Not Available Start: 08-10-2023 End: 08-10-2023 ambulatory JOB CLINTON [facility] Start: 08-09-2023 End: 08-09-2023 ambulatory [facility] Start: 07-24-2023 End: 07-24-2023 ambulatory LINDY CORMIERDARO Not Available Start: 07-02-2023 End: 07-02-2023 ambulatory LAVERNE Nova [place] Not Available Start: 07-01-2023 End: 07-01-2023 ambulatory KALA LLOYD Not Available Start: 06-28-2023 End: 06-28-2023 ambulatory [facility] Start: 06-24-2023 End: 07-11-2023 Telephone encounter Louise Hale RN [facility] Start: 06-21-2023 End: 07-03-2023 Telephone encounter Sandy Ferreira RN [facility] Comment on above: Back pain Start: 06-21-2023 End: 06-21-2023 Emergency department patient visit KAYLIE CHAVEZ [facility] Start: 06-20-2023 End: 06-20-2023 ambulatory ELIAZAR PIRES Not Available Start: 06-12-2023 End: 06-12-2023 Office outpatient visit 25 minutes Live Kwon PA-C Work Phone: [facility] Comment on above: Lumbar spondylosis ( Primary Dx) Start: 06-12-2023 End: 06-12-2023 ambulatory LIVE KWON [facility] Start: 04-26-2023 Telephone encounter Gabriella Wong RN [facility] Comment on above: Surgical Or Dental C learance Start: 04-25-2023 End: 04-25-2023 ambulatory [facility] Work Phone: Start: 04-25-2023 End: 04-25-2023 Patient encounter procedure [facility] Jean Work Phone: Start: 04-16-2023 Registered Recurring TAMMIE quinonez Chavez Work Phone: [facility] Start: 04-15-2023 Chart abstracting Lindy Valentino [facility] Work Phone: [facility] Start: 04-11-2023 End: 04-11-2023 Office outpatient visit 15 minutes Eliazar Pires DPM Work Phone: [facility] Comment on above: Metatarsalgia, left foot (Primary Dx); Diabetes 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 polyneuropathy, with long-term current use of insulin ([facility]); Onychomycosis; Toe pain, right; Toe pain, left Start: 03-28-2023 Telephone encounter Don Taylor RN [facility] Comment on above: Direct LDL Start: 03-26-2023 Telephone encounter Louise Hale RN [facility] Start: 03-15-2023 End: 03-15-2023 Office outpatient visit 25 minutes Bird Dykes MD Work Phone: [facility] Comment on above: Chest pain, unspecif ied type (Primary Dx); Primary hypertension; Familial hypercholesterolemia; Abnormal EKG Start: 03-14-2023 Telephone encounter Ramila noe CMA [facility] Start: 10-18-2022 End: 10-18-2022 ambulatory Nir Danis Other [employer] Other Start: 10-18-2022 Office outpatient vi sit 25 minutes Nir Danis [facility] Start: 08-09-2022 End: 08-09-2022 ambulatory MD Kala Lloyd Work Phone: [facility] Work Phone: Start: 08-09-2022 End: 08-09-2022 Patient encounter procedure MD Kala Lloyd Work Phone: [facility]Dig[facility]ive [facility] Work Phone: Start: 07-25-2022 End: 07-25-2022 Patient encounter procedure MD Kala Lloyd Work Phone: [facility]-CT Scan [facility] [place] Work Phone: Start: 07-23-2022 End: 07-23-2022 ambulatory MD Kala Lloyd Work Phone: [facility] Work Phone: Start: 07-23-2022 End: 07-23-2022 Patient encounter procedure MD Kala Lloyd Work Phone: [facility]-Nuc Med [facility] [place] Work Phone: Start: 07-18-2022 Telephone encounter Nir Danis [facility] Start: 07-18-2022 End: 07-19-2022 ambulatory NIR DANIS [facility] [facility] Other Start: 07-12-2022 End: 07-12-2022 Admission to same day surgery center MD Kala Lloyd Work Phone: [facility] Work Phone: Start: 07-12-2022 End: 07-12-2022 ambulatory MD Kala Lloyd Work Phone: [facility] Work Phone: Start: 07-10-2022 Registered Recurring MD Kala tam Work Phone: [facility] [employer] Start: 07-02-2022 End: 07-03-2022 ambulatory NIR DANIS Facility:[facility]1 Start: 06-04-2022 End: 06-04-2022 ambulatory Imad Asaad Other [place] [employer] Other Start: 06-04-2022 Office outpatient ne w 45 minutes Imad Asaad [facility] Start: 05-18-2022 End: 05-18-2022 ambulatory MD Kala Lloyd Work Phone: [facility] Work Phone: Start: 05-18-2022 End: 05-18-2022 Registered Recurring MD Kala Lloyd Work Phone: [facility] Work Phone: Start: 04-12-2022 End: 04-13-2022 ambulatory NIR DANIS [facility] Other Start: 04-12-2022 Office outpatient vi sit 25 minutes Nir Danis [facility] Start: 04-05-2022 End: 04-06-2022 ambulatory NIR DANIS Facility: Start: 02-07-2022 End: 02-08-2022 ambulatory Eliazar Pires Facility:[facility] Start: 02-07-2022 End: 02-07-2022 Lab Drop off Eliazar Pires [facility] Start: 02-05-2022 End: 02-06-2022 ambulatory Eliazar Pires Facility:[facility] Start: 02-05-2022 End: 02-05-2022 Patient encounter procedure Eliazar Pires [facility] Start: 01-08-2022 End: 01-09-2022 ambulatory Eliazar Pires Facility:[facility] Start: 01-08-2022 End: 01-08-2022 Patient encounter procedure Eliazar Pires [facility] Start: 09-14-2021 End: 09-14-2021 ambulatory Nir Danis Other [employer] Other Start: 09-14-2021 Office outpatient vi sit 25 minutes Nir Moscoso [facility] Start: 09-12-2021 End: 09-13-2021 ambulatory NIR MOSCOSO Facility:[facility] Start: 08-30-2021 End: 08-31-[address] [facility] Facility:[facility] Procedures Date Procedure Procedure Detail Performing Clinician Start: 05-29-2024 Mammography Danii Manley MD Work Phone: Start: 05-07-2024 Complete blood count with white cell differential, automated Kala Lloyd MD Work Phone: Start: 05-07-2024 Hemoglobin glycosylated a1c Kala Lloyd MD Work Phone: Start: 05-05-2024 Complete blood count with white cell differential, automated Kala Lloyd MD Work Phone: Start: 05-05-2024 Comprehensive metabolic panel Kala brownlee MD Work Phone: Start: 02-25-2024 Computerized ophthalmic imaging retina Sterling Al Shweiki Start: 02-25-2024 Fundus Photos No Charge Sterling Al Shweik i Start: 01-20-2024 Hemoglobin glycosylated a1c Laverne leslie DO Work Phone: Start: 2023 [facility] DEPAKENE/ VALPROIC ACID Generic Exte rnal Data Provider Start: 11-13-2023 [facility] CBC WITH PLATELET NO DIFFERENTIAL Generic External Data Provider Start: 09-30-2023 X-ray of lumbar spine, six views including bending views TAMMIE Chavez Work Phone: Start: 04-22-2023 Mammography Lindy Chicho [facility] Work Phone: Start: 03-15-2023 Ecg routine ecg w/least 12 lds w/i&r Bird Dykes MD Work Phone: Start: 09-05-2022 Colonoscopy Eliazar [...] Screening for malignant neoplasm of colon [facility] Start: 05-29-2025 Screening for malignant neoplasm of breast Mammogram [facility] Start: 05-14-2025 Tobacco Screening Tobacco Screening [facility] Start: 04-02-2025 Tobacco Screening Tobacco Screening [facility] Start: 02-24-2025 Glaucoma screening Diabetes: Retinopathy Screening [facility] Start: 01-20-2025 Tobacco Screening Tobacco Screening [facility] Start: 12-29-2024 Urine screening for protein Diabetes: Urine Protein Screening [facility] Start: 12-10-2024 Adult BMI Screening Adult BMI Screening [facility] Start: 12-10-2024 Tobacco Screening Tobacco Screening [facility] Start: 11-09-2024 Influenza vaccination Influenza Vaccine (Season Ended) [facility] Start: 10-27-2024 Glaucoma screening Diabetes: Retinopathy Screening [facility] Start: 10-22-2024 Tobacco Screening Tobacco Screening [facility] Start: 09-07-2024 Influenza vaccination Influenza Vaccine (#1) [facility] Comment on above: Postponed from 11/10/2023 (Insurance / F inancial) Start: 08-17-2024 End: 08-17-2024 Patient encounter procedure 08/17/2024 3:00 PM EDT Office Visit [facility] [address] [place] [phone] Laverne Porter DO [address] [place] [address] [facility] 230 Start: 08-04-2024 Hemoglobin A1c measurement Diabetes: Hemoglobin A1C [facility] Start: 07-30-2024 End: 07-30-2024 Patient encounter procedure 07/30/2024 2:00 PM EDT Office Visit [facility] [address] [place] [facility] [place] [phone] Kala Lloyd MD [address] [place] [address] [facility] Start: 07-02-2024 End: 07-02-2024 Patient encounter procedure 07/02/2024 2:15 PM EDT Office Visit [facility] [address] [place] [phone] Magalie Green, PA [address] [facility], 2nd Floor [place], [place] [phone] [facility] Start: 06-29-2024 End: 06-29-2024 Patient encounter procedure 06/29/2024 1:30 PM EDT Office Visit [facility] [address] [place] [phone] Danii Manely MD [address] [place] [address] [facility] Start: 06-25-2024 End: 06-25-2024 Patient encounter procedure 06/25/2024 4:50 PM EDT Office Visit [facility] [address] [facility] [address] [place] [phone] Eliazar Pires DPM [address] [facility] [address] [place] [address] [facility] Start: 06-20-2024 Adult BMI Screening Adult BMI Screening [facility] Start: 06-20-2024 Tobacco Screening Tobacco Screening [facility] Start: 06-11-2024 Adult BMI Screening Adult BMI Screening [facility] Start: 06-11-2024 Tobacco Screening Tobacco Screening [facility] Start: 06-10-2024 End: 06-10-2024 Clinical Support 06/10/2024 2:00 PM EDT Clinical Support [facility] [address] [place] [address] Lindy Valentino, [facility] [address] [place] [address] [facility] Start: 05-29-2024 End: 05-29-2024 Professional / ancillary services management [facility] Start: 05-22-2024 End: 05-22-2024 Professional / ancillary services management 05/22/2024 4:00 PM EDT Ancillary Procedure [facility] [address] [place] [phone] [facility] Start: 05-21-2024 End: 05-21-2024 Clinical Support [facility] Comment on above: Arrived Start: 05-19-2024 End: 05-19-2024 Patient encounter procedure 05/19/2024 3:30 PM EDT Office Visit [facility] [address] [place] [address] Laverne Porter, [address] [place] [address] [facility] 230 Start: 05-16-2024 Tobacco Screening Tobacco Screening [facility] Start: 05-14-2024 End: 05-14-2024 Patient encounter procedure 05/14/2024 2:15 PM EST Office Visit [facility] [address] [place] [phone] Magalie Green, PA [address], [address] [place], [place] [phone] [facility] Start: 05-07-2024 End: 05-07-2024 Patient encounter procedure [facility] Comment on above: Arrived Start: 05-07-2024 End: 05-07-2025 Bacteria identified in Urine by Culture Urine culture (clean catch) Microbiology Routine Generalized abdominal pain Expected: 05/07/2024 (Approximate), Expires: 05/07/2025 [facility] Comment on above: Expected: 05/07/2024 (Approximate), Expi res: 05/07/2025 Start: 05-07-2024 End: 07-05-2025 DBT Breast - bilateral screening Bilateral screening mammogram with tomosynthesis Imaging Routine Encounter for screening mammogram for malignant neoplasm of breast Expected: 05/07/2024, Expires: 07/05/2025 [facility] Comment on above: Expected: 05/07/2024, Expires: Start: 05-07-2024 End: 05-07-2025 Urinalysis complete panel - Urine Urinalysis with reflex microscopic (catheter) Lab Routine Generalized abdominal pain Expected: 05/07/2024 (Approximate), Expires: 05/07/2025 [facility] Work Phone: Comment on above: Expected: 05/07/2024 (Approximate), Expi res: 05/07/2025 Start: 05-05-2024 End: 05-05-2024 Patient encounter procedure 05/05/2024 2:40 PM EST Office Visit [facility] [address] [place] [address] Kala Lloyd MD [address] [place] [address] Arrived [facility] Comment on above: Arrived Start: 05-05-2024 End: 05-05-2025 CT Abdomen and Pelvis WO contrast CT abdomen pelvis wo IV contrast Imaging STAT Generalized abdominal pain Expected: 05/05/2024, Expires: 05/05/2025 [facility] Work Phone: Comment on above: Expected: 05/05/2024, Expires: Start: 04-30-2024 End: 04-30-2024 Clinical Support [facility] Comment on above: Bipolar 1 disorder ([facility]) Start: 04-24-2024 End: 04-24-2024 Admission to same day surgery center 04/24/2024 10:07 AM EST - 04/24/2024 10:14 AM EST Surgery [facility] [address] [place] [address] Reymundo Giron MD [address] [facility] [phone] INJECTION BLOCK EPIDURAL CAUDAL STEROID [15574 (CPT )] [facility] Comment on above: INJECTION BLOCK EPIDURAL CAUDAL STEROID [86793 (CPT )] Start: 04-24-2024 End: 04-24-2024 Njx dx/ther sbst intrlmnr lmbr/sac w/img gdn INJECTION BLOCK EPIDURAL CAUDAL STEROID Spinal stenosis of lumbar region with neurogenic claudication 04/24/2024 10:07 AM EST [facility] Start: 04-24-2024 Subsequent hospital visit by physician 04/24/2024 10:07 AM EST Hospital Encounter [facility] [address] [place] [address] Reymundo Giron MD [address] [place] [address] [facility] Start: 04-22-2024 Screening for malignant neoplasm of breast Mammogram [facility] Start: 04-21-2024 Hemoglobin A1c measurement Diabetes: Hemoglobin A1C [facility] Start: 04-20-2024 End: 04-20-2024 Patient encounter procedure 04/20/2024 1:15 PM EST Office Visit [facility] [address] [place] [phone] Laverne Porter DO [address] [place] [address] [facility] [address] Start: 04-15-2024 End: 04-15-2024 Patient encounter procedure 04/15/2024 1:45 PM EST Office Visit [facility] [address] [place] [phone] Live Kwon, PADarrellC [address], [address] [place] [address] [facility] Start: 04-09-2024 End: 04-09-2024 Patient encounter procedure [facility] Comment on above: Diabetes mellitus due to underlying cond ition with diabetic polyneuropathy, with long-term current use of insulin ([facility]) (Primary Dx); Pain due to onychomycosis of toenails of both feet; Metatarsalgia, left foot Start: 04-08-2024 End: 04-08-2024 Clinical Support [facility] Comment on above: Arrived Start: 04-02-2024 End: 04-02-2024 Patient encounter procedure 04/02/2024 1:00 PM EST Office Visit [facility] [address] [place] [phone] Magalie Green, TAYLER [address] [place] [address] [facility] Start: 04-01-2024 Adult BMI Screening Adult BMI Screening [facility] Start: 04-01-2024 Tobacco Screening Tobacco Screening [facility] Start: 03-26-2024 End: 03-26-2024 Patient encounter procedure 03/26/2024 3:10 PM EST Office Visit [facility] [address] [facility] [address] [place] [phone] Eliazar Pires DPM [address] [facility] [address] [place] [address] [facility] Start: 03-19-2024 End: 03-19-2024 Clinical Support [facility] Comment on above: Arrived Start: 03-15-2024 Adult BMI Screening Adult BMI Screening [facility] Start: 03-15-2024 Tobacco Screening Tobacco Screening [facility] Start: 03-13-2024 End: 03-13-2024 Admission to same day surgery center 03/13/2024 10:00 AM EST - 03/13/2024 10:07 AM EST Surgery [facility] [address] [place] [phone] Reymundo Giron MD [address] [facility], [place] [phone] INJECTION BLOCK SACROILIAC JOINT [58210 (CPT )] [facility] Comment on above: INJECTION BLOCK SACROILIAC JOINT [14992 (CPT )] Start: 03-13-2024 End: 03-13-2024 Inject si joint arthrgrphy&/anes/stero id w/guanakito INJECTION BLOCK SACROILIAC JOINT Disorder of sacrum 03/13/2024 10:00 AM EST [facility] Start: 03-13-2024 Subsequent hospital visit by physician 03/13/2024 10:00 AM EST Hospital Encounter [facility] [address] [place] [phone] Reymundo Giron MD [address] [facility] [place], [place] [phone] [facility] Start: 02-28-2024 Tobacco Screening Tobacco Screening [facility] Start: 01-31-2024 End: 01-31-2024 Patient encounter procedure [facility] Comment on above: Arrived Start: 01-23-2024 Adult BMI Screening Adult BMI Screening [facility] Start: 01-23-2024 End: 01-23-2024 Clinical Support 01/23/2024 2:00 PM EST Clinical Support [facility] [address] [place] [address] Lindy Valentino, [facility] [address] [place] [address] [facility] Start: 01-22-2024 Urine screening for protein Diabetes: Urine Protein Screening [facility] Start: 01-21-2024 Hemoglobin A1c measurement Diabetes: Hemoglobin A1C [facility] Start: 01-21-2024 End: 01-21-2024 Patient encounter procedure 01/21/2024 12:30 PM EST Office Visit [facility] [address] [place] [phone] Magalie Green, TAYLER [address] [facility] [address] [place], [place] [phone] [facility] Start: 01-20-2024 End: 01-20-2024 Patient encounter procedure [facility] FM [address] Comment on above: Type 2 diabetes mellitus with peripheral neuropathy (CMS/HCC) Start: 01-16-2024 End: 01-16-2024 Patient encounter procedure [facility] Comment on above: Metatarsalgia, left foot (Primary Dx); Diabetes 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 polyneuropathy, with long-term current use of insulin (CMS/HCC); Pain due to onychomycosis of toenails of both feet Start: 12-30-2023 End: 12-29-2024 25-hydroxyvitamin D3 [Mass/volume] in Serum or Plasma Vitamin D 25 hydroxy Total Lab Routine Vitamin D deficiency Expected: 12/30/2023 (Approximate), Expires: 12/29/2024 [facility] Work Phone: Comment on above: Expected: 12/30/2023 (Approximate), Expi res: 12/29/2024 Start: 12-30-2023 End: 12-29-2024 Magnesium [Mass/volume] in Serum or Plasma Magnesium Lab Routine Hypomagnesemia Expected: 12/30/2023 (Approximate), Expires: 12/29/2024 [facility] Comment on above: Expected: 12/30/2023 (Approximate), Expi res: 12/29/2024 Start: 12-30-2023 End: 12-29-2024 Parathyrin.intact [Mass/volume] in Serum or Plasma PTH, intact Lab Routine Hypercalcemia Expected: 12/30/2023 (Approximate), Expires: 12/29/2024 [facility] Comment on above: Expected: 12/30/2023 (Approximate), Expi res: 12/29/2024 Start: 12-30-2023 End: 12-29-2024 Renal function panel Renal function panel Lab Routine Hypercalcemia Expected: 12/30/2023 (Approximate), Expires: 12/29/2024 [facility] Comment on above: Expected: 12/30/2023 (Approximate), Expi res: 12/29/2024 Start: 12-30-2023 End: 12-30-2023 Patient encounter procedure 12/30/2023 1:40 PM EDT Office Visit [facility] [address] [place] [address] Danii Manley MD [address], [address] [place] [address] [facility] Start: 12-27-2023 End: 12-27-2023 Admission to same day surgery center 12/27/2023 1:57 PM EDT - 12/27/2023 2:04 PM EDT Surgery [facility] [address] [place] [address] Reymundo Giron MD [address] [place] [address] INJECTION SPINE TRANSFORAMINAL Left 4,5 NRoot [33875 (CPT )] [facility] Comment on above: INJECTION SPINE TRANSFORAMINAL Left 4,5 NRoot [83893 ([facility] )] Start: 12-27-2023 End: 12-27-2023 Njx anes&/strd w/img tfrml edrl lmbr/sac 1 lvl INJECTION SPINE TRANSFORAMINAL Spinal stenosis of lumbar region with neurogenic claudication 12/27/2023 1:57 PM EDT [facility] Start: 12-27-2023 Subsequent hospital visit by physician 12/27/2023 1:57 PM EDT Hospital Encounter [facility] [address] [place] [address] Reymundo Giron MD [address] [place] [address] [facility] Start: 12-23-2023 End: 12-23-2023 Clinical Support [facility] Comment on above: Arrived Start: 12-11-2023 End: 12-11-2023 Patient encounter procedure 12/11/2023 1:30 PM EDT Office Visit [facility] [address] [place] [address] Live Kwon, PASadiq [address], [address] [place] [address] [facility] Start: 12-02-2023 End: 12-02-2023 Clinical Support 12/02/2023 2:00 PM EDT Clinical Support [facility] [address] [place] [phone] Lindy Valentino, [facility] [address] [place] [address] [facility] Start: 11-22-2023 End: 11-22-2023 Admission to same day surgery center 11/22/2023 10:37 AM EDT - 11/22/2023 10:43 AM EDT Surgery [facility] [address] [place] [address] Reymundo Giron MD [address] [facility] [address] INJECTION BLOCK SACROILIAC JOINT Bilateral SI Joint [facility] Comment on above: INJECTION BLOCK SACROILIAC JOINT Bilater al SI Joint Start: 11-22-2023 End: 11-22-2023 INJECTION BLOCK SACROILIAC JOINT INJECTION BLOCK SACROILIAC JOINT Disorder of sacrum 11/22/2023 10:37 AM EDT [facility] Start: 11-22-2023 Subsequent hospital visit by physician 11/22/2023 10:37 AM EDT Hospital Encounter [facility] [address] [facility] [place] [phone] Reymundo Giron MD [address] [place] [address] [facility] Start: 11-10-2023 Influenza vaccination [facility] Start: 11-07-2023 End: 11-07-2023 Patient encounter procedure [facility] Comment on above: Metatarsalgia, left foot (Primary Dx); Diabetes 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 polyneuropathy, with long-term current use of insulin ([facility]); Onychomycosis; Toe pain, bilateral Start: 11-04-2023 End: 11-04-2023 Clinical Support 11/04/2023 2:00 PM EDT Clinical Support [facility] [address] [place] [address] Lindy Valentino, [facility] [address] [place] [address] Arrived [facility] Comment on above: Arrived Start: 09-28-2023 Glaucoma screening Diabetes: Retinopathy Screening [facility] Start: 09-08-2023 Influenza vaccination Influenza Vaccine (#1) [facility] Comment on above: Postponed from 11/09/2022 (Patient Refus ed) Start: 08-14-2023 End: 08-14-2023 Patient encounter procedure 08/14/2023 12:45 PM EDT Office Visit [facility] [address] [place] [address] Live Kwon, MAKAYLA [address], [address] [place] [address] [facility] Start: 08-09-2023 Subsequent hospital visit by physician 08/09/2023 Hospital Encounter [facility] [address] [facility] [place] [address] Reymundo Giron MD [address] [place] [address] [facility] Start: 07-12-2023 End: 07-12-2023 Admission to same day surgery center 07/12/2023 11:00 AM EDT - 07/12/2023 11:11 AM EDT Surgery [facility] [address] [place] [facility] [address] Reymundo Giron MD [address] [place] [address] RADIOFREQUENCY ABLATION SPINAL Left L 2/3, 3/4 [42209 (CPT )] [facility] Comment on above: RADIOFREQUENCY ABLATION SPINAL Left L 2/ 3, 3/4 [90685 (CPT )] Start: 07-12-2023 End: 07-12-2023 Dstr nrolytc agnt parverteb fct sngl lmbr/sacral RADIOFREQUENCY ABLATION SPINAL Lumbar spondylosis 07/12/2023 11:00 AM EDT [facility] Start: 07-12-2023 Subsequent hospital visit by physician 07/12/2023 11:00 AM EDT Hospital Encounter [facility] [address] [place] [address] Reymundo Giron MD [address] [place] [address] [facility] Start: 07-02-2023 End: 07-02-2023 Patient encounter procedure 07/02/2023 2:15 PM EDT Office Visit [facility] [address] [place] [address] Laverne Porter DO [address] [place] [address] [facility] [address] Start: 07-02-2023 Hemoglobin A1c measurement Diabetes: Hemoglobin A1C [facility] Start: 06-28-2023 End: 06-28-2023 Admission to same day surgery center 06/28/2023 11:00 AM EDT - 06/28/2023 11:11 AM EDT Surgery [facility] [address] [place] [address] Reymundo Giron MD [address] [place] [address] RADIOFREQUENCY ABLATION SPINAL Right L 2/3 3/4 [85900 (CPT )] [facility] Comment on above: RADIOFREQUENCY ABLATION SPINAL Right L 2 /3 3/4 [48067 (CPT )] Start: 06-28-2023 End: 06-28-2023 Dstr nrolytc agnt parverteb fct sngl lmbr/sacral RADIOFREQUENCY ABLATION SPINAL Lumbar spondylosis 06/28/2023 11:00 AM EDT [facility] Start: 06-28-2023 Subsequent hospital visit by physician 06/28/2023 11:00 AM EDT Hospital Encounter [facility] [address] [place] [id number] Reymundo Giron MD [address] [place] [address] [facility] Pain Procedures Start: 06-20-2023 End: 06-20-2023 Patient encounter procedure 06/20/2023 2:00 PM EDT Office Visit [facility] [address] [facility] [address] [place] [address] Eliazar Pires DPM [address] [facility] [address] [place] [address] [facility] Start: 06-12-2023 End: 06-12-2023 Patient encounter procedure 06/12/2023 10:45 AM EDT Office Visit [facility] [address] [facility] [place] [address] Live Kwon PA-C [address] [place] [address] [facility] Start: 04-17-2023 End: 04-17-2023 Patient encounter procedure 04/17/2023 2:30 PM EST Office Visit [facility] [address] [place] [address] Live Kwon PA-C [address] [place] [address] [facility] Start: 04-15-2023 End: 04-15-2023 Clinical Support 04/15/2023 11:00 AM EST Clinical Support [facility] [address] [place] [address] Lindy Valentino, [facility] [address] [place] [address] [facility] Start: 04-01-2023 End: 04-01-2023 Patient encounter procedure [facility] - Stress Imaging Start: 03-29-2023 End: 03-29-2023 Admission to same day surgery center 03/29/2023 10:34 AM EST - 03/29/2023 10:40 AM EST Surgery [facility] Pain Procedures [address] [facility] [id number] Reymundo Giron MD [address] [place], [place] [id number] INJECTION BLOCK NERVE MEDIAL BRANCH Bilat L 2/3, 3/4 [75083 (CPT )] [facility] Procedures Comment on above: INJECTION BLOCK NERVE MEDIAL BRANCH Bila t L 2/3, 3/4 [45628 (CPT )] Start: 03-29-2023 End: 03-29-2023 Njx dx/ther agt pvrt facet jt lmbr/sac 1 level INJECTION BLOCK NERVE MEDIAL BRANCH Lumbar spondylosis 03/29/2023 10:34 AM EST [facility] Start: 03-29-2023 Subsequent hospital visit by physician [facility] Pain Procedures Start: 03-29-2023 End: 03-29-2023 Patient encounter procedure 03/29/2023 8:55 AM EST Appointment [facility] Radiology [address] [place] [phone] Reymundo Giron MD [address] [facility] [place], [place] [id number] [facility] - Radiology Start: 03-27-2023 End: 03-27-2023 Patient encounter procedure [facility] Stress Imaging Start: 03-22-2023 End: 03-15-2024 Basic metabolic 2000 panel - Serum or Plasma Basic Metabolic Panel Lab Routine Primary hypertension Familial hypercholesterolemia Chest pain, unspecified type Abnormal EKG Expected: 03/22/2023 (Approximate), Expires: 03/15/[address] [facility] Comment on above: Expected: 03/22/2023 (Approximate), Expi res: 03/15/2024 Start: 03-22-2023 End: 03-15-2024 CBC W Auto Differential panel - Blood CBC auto differential Lab Routine Primary hypertension Familial hypercholesterolemia Chest pain, unspecified type Abnormal EKG Expected: 03/22/2023, Expires: 03/15/[address] [facility] Comment on above: Expected: 03/22/2023, Expires: Start: 03-22-2023 End: 03-15-2024 Lipid 1996 panel - Serum or Plasma Lipid profile Lab Routine Primary hypertension Familial hypercholesterolemia Chest pain, unspecified type Abnormal EKG Expected: 03/22/2023, Expires: 03/15/[address] [facility] Comment on above: Expected: 03/22/2023, Expires: Start: 03-22-2023 End: 03-14-2024 NM Heart Perfusion W adenosine and W radionuclide IV Nuc stress Lexiscan/Exercise Cardiac Services Routine Chest pain, unspecified type Abnormal EKG Expected: 03/22/2023, Expires: 03/14/2024 [facility] Work Phone: Comment on above: Expected: 03/22/2023, Expires: Start: 03-15-2023 End: 03-15-2023 Patient encounter procedure 03/15/2023 1:00 PM EST Office Visit [facility] [address] [place] [address] Bird Dykes MD [address] [place] [address] [facility] Start: 03-09-2023 Screening for malignant neoplasm of breast Mammogram [facility] Start: 11-09-2022 Influenza vaccination Influenza Vaccine [facility] Start: 08-09-2022 [facility] Start: 07-12-2022 [facility] Start: 04-27-2022 [facility] Start: 12-24-2021 Administration of varicella zoster vaccine Zoster (Shingles) Vaccine (1 of 2) [facility] Start: 12-24-1990 DTaP,Tdap and Td Vaccines (1 - Tdap) DTaP,Tdap and Td Vaccines (1 - Tdap) [facility] Start: 12-24-1989 Adult BMI Follow Up Plan Adult BMI Follow Up Plan [facility] Start: 12-24-1989 Diabetic foot examination Diabetic Foot Exam [facility] Start: 1983 Depression Screening Depression Screening [facility] Start: 1971 Glaucoma screening Diabetic Ophthalmology Exam [facility] Start: 1971 Screening for malignant neoplasm of colon [facility] Start: 1971 Tobacco Counseling Tobacco Counseling [facility] End: 03-28-2024 Cholesterol in LDL [Mass/volume] in Serum or Plasma LDL cholesterol, direct Lab Routine Familial hypercholesterolemia 1 Occurrences starting 03/28/2023 until 03/28/2024 [facility] Work Phone: Comment on above: 1 Occurrences starting 03/28/2023 until 03/28/2024 Dstr nrolytc agnt parverteb fct sngl lmbr/sacral RADIOFREQUENCY ABLATION SPINAL Lumbar spondylosis [facility] Njx dx/ther agt pvrt facet jt lmbr/sac 1 level INJECTION BLOCK NERVE MEDIAL BRANCH Lumbar spondylosis [facility] Patient Education Gastritis (DC) [facility] Work Phone: Renal function 1999 panel - Serum or Plasma [facility] Renal function 1999 panel - Serum or Plasma [facility] Immunizations Immunization Date Immunization Notes Care Provider Page celestin 06-21-2021 hepatitis B vaccine, adult dosage Eliazar Pires DPM Work Phone: [facility] 03-01-2020 hepatitis A vaccine, adult dosage Eliazar Pires DPM Work Phone: [facility] 03-01-2020 hepatitis B vaccine, adult dosage Eliazar Pires DPM Work Phone: [facility] 01-24-2020 hepatitis A vaccine, adult dosage Eliazar Filiberto DPM Work Phone: [facility] 01-24-2020 pneumococcal polysaccharide vaccine, 23 valent Eilazar Pires DPM Work Phone: [facility] 01-24-2020 Seasonal, quadrivalent, recombinant, injectable influenza vaccine, preservative free Eliazar Filiberto DPM Work Phone: [facility] 01-24-2020 influenza virus vaccine, unspecified formulation Eliazar Filiberto DPM Work Phone: [facility] 12-18-2018 hepatitis A vaccine, adult dosage Eliazar Filiberto DPM Work Phone: [facility] 12-18-2018 Seasonal, quadrivalent, recombinant, injectable influenza vaccine, preservative free Eliazar Filiberto DPM Work Phone: [facility] 12-13-2016 influenza virus vaccine, unspecified formulation [facility] 12-13-2016 influenza, injectable, quadrivalent, preservative free Eliazar Brown DPM Work Phone: [facility] 12-13-2016 influenza, injectable,quadrival ent, preservative free, pediatric Nir Danis Other [facility] Other NEGATED: Highlighted row has not occurred! 9 influenza, injectable,quadrival ent, preservative free, pediatric Patient Objection Nir Danis Other [facility] Other Payers Date Payer Category Payer Medicaid [id number] 5 2022 Unknown [id number] 1971 Unknown [id number] 2.16.8 40.1.920484.3.579.2.727 1971 Unknown [id number] 2.16.8 40.1.499361.3.579.2.727 1971 Unknown [id number] 2.16.8 40.1.180689.3.579.2.727 1971 Unknown [id number] 2.16.84 0.1.117106.3.579.2.593 1971 Unknown [id number] 2.16.84 0.1.120560.3.579.2.593 1971 Unknown [id number] 2.16.84 0.1.005773.3.579.2.593 1971 Unknown [id number] 2.16.84 0.1.803005.3.579.2.593 1971 Unknown [id number] 2.16.84 0.1.103380.3.579.2.593 1971 Unknown [id number] 2.16.84 0.1.815258.3.579.2.593 1971 Unknown [id number] 2.16.84 0.1.359342.3.579.2.1347 1971 Unknown [id number] 2.16.840.1.144878.3.579.2.1286 1971 Unknown [id number] 2.16.840.1.342072.3.579.2.1286 1971 Unknown [id number] 2.16.840.1.215519.3.579.2.1286 1971 Unknown [id number] 2.16.840.1.396539.3.579.2.1286 1971 Unknown [id number] 2.16.8 40.1.228324.3.579.2.1286 1971 Unknown [id number] 2.16.8 40.1.514675.3.579.2.1286 1971 Unknown [id number] 2.16.8 40.1.072735.3.579.2.1286 1971 Unknown [id number] 2.16.8 40.1.825242.3.579.2.1285 1971 Unknown [id number] 2.16.8 40.1.619307.3.579.2.1285 1971 Unknown [id number] 2.16.8 40.1.930083.3.579.2.1285 1971 Unknown [id number] 2.16.8 40.1.341663.3.579.2.1285 1971 Unknown [id number] 2.16.8 40.1.673725.3.579.2.1285 1971 Unknown [id number] 2.16.8 40.1.626463.3.579.2.1285 1971 Unknown [id number] 2.16.8 40.1.435182.3.579.2.1285 1971 Unknown [id number] 2.16.8 40.1.049766.3.579.2.1285 1971 Unknown [id number] 2.16.8 40.1.136255.3.579.2.1285 1971 Unknown [id number] 2.16.8 40.1.575933.3.579.2.1285 1971 Unknown [id number] 2.16.8 40.1.943332.3.579.2.1285 1971 Unknown [id number] 2.16.8 40.1.092391.3.579.2.1285 1971 Unknown [id number] 2.16.8 40.1.461367.3.579.2.1285 1971 Unknown [id number] 2.16.8 40.1.034302.3.579.2.1285 1971 Unknown [id number] 2.16.8 40.1.812520.3.579.2.1285 1971 Unknown [id number] 2.16.8 40.1.053649.3.579.2.1286 1971 Unknown [id number] 2.16.8 40.1.634437.3.579.2.1286 1971 Unknown [id number] 2.16.8 40.1.913524.3.579.2.1286 1971 Unknown [id number] 2.16.8 40.1.176940.3.579.2.1286 1971 Unknown [id number] 2.16.8 40.1.046532.3.579.2.1286 1971 Unknown [id number] 2.16.8 40.1.023819.3.579.2.1286 1971 Unknown [id number] 2.16.8 40.1.144134.3.579.2.1286 1971 Unknown [id number] 2.16.84 0.1.220776.3.579.2.1259 1971 Unknown [id number] 2.16.84 0.1.345485.3.579.2.1259 1971 Unknown [id number] 2.16.84 0.1.440142.3.579.2.1259 1971 Unknown [id number] 2.16.84 0.1.903665.3.579.2.1259 1971 Unknown [id number] 2.16.84 0.1.116722.3.579.2.1259 1971 Unknown [id number] 2.16.84 0.1.407584.3.579.2.1259 1971 Unknown [id number] 2.16.84 0.1.548197.3.579.2.1259 1971 Unknown [id number] 2.16.84 0.1.061060.3.579.2.1259 1971 Unknown [id number] 2.16.84 0.1.403836.3.579.2.1259 1971 Unknown [id number] 2.16.84 0.1.130916.3.579.2.1259 1971 Unknown [id number] 2.16.84 0.1.729760.3.579.2.1259 1971 Unknown [id number] 2.16.84 0.1.865241.3.579.2.1259 1971 Unknown [id number] 2.16.84 0.1.817362.3.579.2.1259 1971 Unknown [id number] 2.16.84 0.1.264298.3.579.2.9 1971 Unknown [id number] 2.16.84 0.1.558750.3.579.2.1259 1971 Unknown [id number] 2.16.84 0.1.375846.3.579.2.9 1971 Unknown [id number] 2.16.84 0.1.084228.3.579.2.1259 1971 Unknown [id number] 2.16.84 0.1.486314.3.579.2.9 1971 Unknown [id number] 2.16.84 0.1.361403.3.579.2.1259 1971 Unknown [id number] 2.16.84 0.1.945752.3.579.2.1259 1971 Unknown [id number] 2.16.84 0.1.672475.3.579.2.1259 1971 Unknown [id number] 2.16.84 0.1.306049.3.579.2.1259 1971 Unknown [id number] 2.16.84 0.1.708118.3.579.2.9 1971 Unknown [id number] 2.16.84 0.1.730714.3.579.2.1259 1971 Unknown [id number] 2.16.84 0.1.534327.3.579.2.1259 1971 Unknown [id number] 2.16.84 0.1.320690.3.579.2.1259 1971 Unknown [id number] 2.16.84 0.1.480615.3.579.2.1259 1971 Unknown [id number] 2.16.84 0.1.021291.3.579.2.1259 1971 Unknown [id number] 2.16.84 0.1.237373.3.579.2.1259 1959 Unknown [id number] 2.1 6.840.1.735229.19 Medicaid [employer] [id number] Self-pay Self Pay [id number] Social History Date Type Detail Facility Unknown if ever smoked [facility] Other Start: 08-07-2022 End: 05-19-2024 Sex Assigned At [facility] Tobacco smoking status No Smokin g Status Entered [facility] Start: 04-27-2022 End: 09-05-2022 Tobacco smoking status NHIS Smoker (finding) [facility] Start: 1971 Sex Assigned At Female [facility] Start: 03-15-2023 End: 05-19-2024 Tobacco smoking status NHIS Smokes tobacco daily [facility] History of tobacco use Cigarette Smoker [facility] Start: 03-15-2023 End: 05-19-2024 Cigarettes smoked current (pack per day) - Reported 0.3 [facility] Start: 04-11-2023 End: 05-19-2024 Alcohol intake Lifetime non-drinker (finding) [facility] How often to you hav e a drink containing alcohol? Never [facility] How many standard drinks containing alcohol do you have on a typical day? Patient does not drink [facility] Start: 11-20-2022 Education 13 [facility] Start: 03-15-2023 Tobacco Comment Smokes a pack a week. 2-3 cigarettes a day. [facility] Start: 08-04-2022 Alcohol Comment caffeine intake: more than 4 cups per day/ 2 pots of coffee. [facility] Start: 1970 Sex Assigned At Not on file [facility] Start: 05-23-2022 Gender identity Identifies as female gender (finding) [facility] Start: 10-23-2023 End: 05-19-2024 Tobacco use and exposure Smokeless tobacco non-user [facility] Start: 12-19-2022 Tobacco Comment One pack per week [facility] Start: 10-14-2014 Sex Female (finding) [facility] Start: 01-22-2023 Sexual orientation Choose not to disclose [facility] Medical Equipment Procedure Code Equipment Code Equipment Original Text Equipment Identifier Dates CANCELLOUS COARSE 7.5CC FDA S tart: 08-27-2019 Bone-screw inter nal spinal fixation system, non-sterile ()[id number] FDA Start: 08-27-2019 Bone-screw inter nal spinal fixation system, non-sterile ()[id number] FDA Start: 08-27-2019 Bone-screw inter nal spinal fixation system, non-sterile ()[id number] FDA Start: 08-27-2019 Bone-screw inter nal spinal fixation system, non-sterile ()[id number] FDA Start: 08-27-2019 Bone-screw inter nal spinal fixation system, non-sterile ()[id number] FDA Start: 08-27-2019 Polymeric spinal fusion cage, non-sterile ()[id number] FDA Start: 08-27-2019 Polymeric spinal interbody fusion cage ()[id number] FDA Start: 08-27-2019 XLIF 2 LEVEL MAS REDUCTION FDA Start: 08-27-2019 Dura mater sealant ()[id number]( [id number] FDA Start: 08-27-2019 Dura mater graft , bovine ()[id number]( [id number] FDA Start: 08-27-2019 Spinal fusion graft kit () [id number] FDA Start: 08-27-2019 Bone-screw inter nal spinal fixation system, non-sterile ()[id number] FDA Start: 08-27-2019 Bone-screw inter nal spinal fixation system, non-sterile ()[id number] FDA Start: 08-27-2019 CANCELLOUS COARSE 7.5CC FDA S tart: 08-27-2019 XLIF 2 LEVEL MAS REDUCTION FDA Start: 08-27-2019 CANCELLOUS COARSE 7.5CC FDA S tart: 08-27-2019 XLIF 2 LEVEL MAS REDUCTION FDA Start: 08-27-2019 CANCELLOUS COARSE 7.5CC FDA S tart: 08-27-2019 XLIF 2 LEVEL MAS REDUCTION FDA Start: 08-27-2019 Check sugars bid [id number] Start: 04-02-2023 CANCELLOUS COARSE 7.5CC FDA S tart: 08-27-2019 XLIF 2 LEVEL MAS REDUCTION FDA Start: 08-27-2019 CANCELLOUS COARSE 7.5CC FDA S tart: 08-27-2019 XLIF 2 LEVEL MAS REDUCTION FDA Start: 08-27-2019 CANCELLOUS COARSE 7.5CC FDA S tart: 08-27-2019 XLIF 2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 Go to [email or web address] and click the Health Risk Assessment and Resources link to get started. In the [employer]uz[employer] menu, click Action Plans instead of Health Risk Assessment to access the Quit Smoking Action Plan. Additional smoking cessation resources are also available to all [facility] employees on the [employer] web page at [email or web address] [email or web address]. [employer] Tobacco Cessation Program If [employer] is your medical insurance provider, there are more free resources available to you, including: No copays or deductibles on local tobacco cessation counseling services to help you quit Prescription assistance for tobacco cessation medications to help you quit For details about the tobacco cessation program available to [employer] members, go to www.[employer].com (Search: Tobacco Cessation Program). [place] Tobacco Quit Line 6-695-TSSZ-NOW ( ) is a toll-free, telephonic service that helps [place] residents quit smoking and using tobacco. It is staffed by experts who tailor a quit plan for you and provide you with advice. [place] Tobacco Quit Line 9-381-OISC-NOW ( ) is a toll-free, telephonic service [...] and resources to help you quit tobacco: [place] [employer]--www.cancer.org/healthy/st ayawayfromtobacco [place] [employer]--www.heart.org (Search: Quit Smoking) Centers for Disease Control and Prevention--www.cdc.gov/tobacco [place] [employer]--www.lungusa.org [facility] Miscellaneous Notes Called patient to remind them to bring their most current copy of their medication list with them to their appt. Patient verbalizes understanding. documented [facility] 03-14-2023 Telephone encounter Note Called patient to remind them to bring their most current copy of their medication list with them to their appt. Patient verbalizes understanding. [facility] 10-18-2022 Evaluation note Encounter Date Diagnosis [...] hyperfunctioning adenoma including Tawanda, pheochromocytoma and primary hyperaldosteronism . Oct, Type [...] advised the patient to avoid calcium supplements. [facility] Other 05-10-2023 Evaluation note* Encounter Date Diagnosis Assessment Notes Treatment Notes Treatment Clinical Notes July, Hypercalcemia (ICD-1 0 - E83.52) [facility] Encounter Date Diagnosis Assessment Notes Treatment Notes Treatment Clinical Notes May, Dysphagia (ICD-10 - R13.10) May, GERD (gastroesophageal reflux disease) (ICD-10 - K21.9) Encouraged lifestyle and diet modifications Continue Pantoprazole 40mg twice daily, 30 minutes prior to breakfast and supper. Arrange for EGD May, Esophageal spasm (ICD-10 - K22.4) May, Globus sensation (ICD-10 - F45.8) [facility] Other 02-17-2023 Progress note Author Isela Downs [facility] April 27, 2022 3:36pm Note Date/Time April 27, 2022 9:49am [facility] [place] [address] Hem/Onc Follow Up Note - OP Signed Patient: Radha [place] MR#: [id number] : 1970 Acct:[id number] Age/Sex: 51 / F Type: REG RCR Copies to: MD Kaylie Eason CASHIER MANAGER, MACHINE FITTER Kala Lloyd MD~ Subjective Date/Time of Service: Date of Service: 04/27/2022 Time of Service: 09:49 Chief Complaint: Patient is here today for a referral from Nir Moscoso MD for hypercalcemia and erythrocytosis HPI: Ms. Jones is a now 51-year-old lady who was previously seen by my partner Dr. Josh Bhatia in 2020 for leukocytosis. I was contacted by Dr. Moscoso of nephrology that the patient was found [...] adenopathy. She has been followed by Dr. Moscoso for chronic kidney disease over the last 3 years and reports that she had presented with diabetic ketoacidosis requiring hospitalization in 2013. She denies any gain or loss of weight. She notes thatin the middle of March she had 1 week of recurrent nausea vomiting and diarrhea about [address] Moscoso but all of the symptoms resolved. When [...] Negative for environmental allergies and food allergies. [facility] - History Attestation statement: The following [...] None Social History Comments: lives in [facility] Home Medications & Allergies Allergies [...] 57, totalprotein 6.9, albumin 3.6 Outside Labs: [facility] nephrology labs 04/05/2022: White blood cells 11,700, [...] 304.32, urine protein/creatinine ratio 0.66 - Impressions [facility] specialists 04/25/2022 CT chest without [...] leukocytosis and mild elevation of hemoglobin. Dr. Moscoso raised concern that she could have a [...] for coordination of care (as documented) and [id number] counseling of patient and/or family. Dictated By: Isela Downs MD DD/ 0949 Signed By: <Electronically signed by MD Isela Downs> 04/27/22 1536 [facility] Work Phone: [phone]) 376-679002-17-2023 [facility]* Encounter Date Diagnosis Assessment [...] a negative work-up for hyperfunctioning adenoma including Lasara, pheochromocytoma and primary hyperaldosteronism. Apr, Type 2 [...] to see the patient for further evaluation. [facility] Other 07-07-2022 Evaluation note* Encounter Date Diagnosis [...] a negative work-up for hyperfunctioning adenoma including Lasara, pheochromocytoma and primary hyperaldosteronism. Sep, Type 2 [...] her to increase oral magnesium twice daily [facility] Other 05-23-2021 Progress note Author Josh Bhatia [facility] July 31, 2020 11:28am Note Date/Time July 31, 2020 11:22 am [facility] [place] [address] Hem/Onc Follow Up Note - OP Signed Patient: Radha Jones MR#: [id number] : 1970 Acct:[id number] Age/Sex: 49 / F Type: REG RCR Copies to: Kaylie Chavez APRN, MACHINE FITTER Kala Lloyd MD~ Subjective Date/Time of Service: Date of Service: 07/26/2020 Time of Service: 14:20 Chief Complaint: Patient is here for a 3 week follow up with labs for review. HPI: Ms. Jones returns to review labs and plan. She reports overall stable, no specific complaints today. Comorbidities: hypertension, insulin-dependent diabetes, obesity, asthma, COPD, active smoker. ROS Details: All systems reviewed & no additional complaints except as documented [facility] - Medical History Medical History: Medical History (Last Reviewed 04/22/20 @ 14:41 by Mel Dowell) Anxiety Arthritis Asthma Back pain Bipolar disorder COPD (chronic obstructive pulmonary disease) DDD (degenerative disc disease) Depression Diabetes mellitus, type 2 GERD (gastroesophageal reflux disease) History of vertigo Hyperlipidemia Kidney disease stage 1 Lumbar adjacent segment disease with spondylolisthesis Lumbosacral disc herniation WCIK (nonalcoholic steatohepatitis) OCD (obsessive compulsive disorder) PTSD [...] None Social History Comments: lives in [facility] Home Medications & Allergies Allergies [...] for coordination of care (as documented) and [id number] counseling of patient and/or family. Dictated By: Josh Bhatia MD DD/ 19 Signed By: <Electronically signed by Josh Bhatia MD> 07/31/208 [facility] Work Phone: [phone]) 801-303002-16-2021 Consult note Author Josh Bhatia [facility] April 26, 2020 3:37pm Note Date/Time April 22, 2020 3:36pm [facility] [place] [address] Hem/Onc Consult Note - OP Signed with Addenda Patient: Radha Jones MR#: [id number] : 1970 Acct:[id number] Age/Sex: 49 / F Type: REG RCR Copies to: Kaylie Chavez APRN, MACHINE FITTER Kala Lloyd MD~ ADDENDUM1 Flow cytometry showed [...] Referring Provider/PCP: Referring Provider: Kaylie Chavez APRN, COFFEE SAMPLER-C PCP: Kala Lloyd MD - History of Present Illness Reason for Consultation: Leukocytosis Chief Complaint: No other concerns voiced today. HPI: Dear Ms. Chavez, I have seen you patient in consultation, and I would like to thank you for the referral. As you know, Ms. Jones is a 49-year-old lady, history of hypertension, [...] chills, or lymphadenopathy. She denied active infection. [facility] - Medical History Medical History: Medical [...] Type: None Social History Comments: lives in [place] Home Medications & Allergies Allergies bee pollen [...] 15.7, platelet 260, neutrophils 59%, lymphocytes 33.6%, [id number] Assessment and Plan (1) Leukocytosis Qualifiers: Leukocytosis [...] for coordination of care (as documented) and [id number] counseling of patient and/or family. Dictated By: Josh Bhatia MD DD/ 33 Signed By: <Electronically signed by Josh Bhatia MD> 04/22/201543 [facility] Work Phone: Evaluation + Plan note No data available for this section [facility] Diagnosis Onset Date Resolution Status Hypercalcemia acute COPD (chronic obstructive pulmonary disease) chronic Diabetes mellitus chronic Leukocytosis chronic Lumbar degenerative disc disease chronic [facility] Work Phone: Evaluation note* Diagnosis Onset Date Resolution Status COPD (chronic obstructive pulmonary disease) chronic Diabetes mellitus chronic Lumbar degenerative disc disease chronic Hypercalcemia resolved Leukocytosis resolved [facility] Work Phone: evaluation note* Diagnosis Metatarsalgia, left foot- Primary Diabetes 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 polyneuropathy, with long-term current use of insulin ([facility]) Onychomycosis Dermatophytosis of nail Toe pain, right Pain in soft tissues of limb Toe pain, left Pain in soft tissues of limb [facility] Diagnosis Onset Date Resolution Status Adrenal nodule acute CKD (chronic kidney disease) stage 3, GFR 30-59 ml/min acute [id number] acute Hypomagnesemia acute Type 2 diabetes mellitus wit h diabetic chronic kidney disease acute Hypercalcemia resolved [facility] Work Phone: Evaluation noteNo assessment information available [facility] Work Phone: evaluation note* Diagnosis Onset Date Resolution Status History of lumbar fusion acu te Lumbar stenosis acute Piriformis syndrome of left side acute Adrenal nodule acute CKD (chronic kidney disease) stage 3, GFR 30-59 ml/min acute [id number] acute Hypomagnesemia acute Type 2 diabetes mellitus wit h diabetic chronic kidney disease acute Hypercalcemia resolved [facility] Work Phone: Evaluation note* Diagnosis Diabetic nephropathy associated with type 2 diabetes mellitus (HCC) ([facility]/HCC)- Primary Type 2 diabetes mellitus with peripheral neuropathy ([facility]/HCC) Diabetic retinopathy of 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 associated with type 2 diabetes mellitus, unspecified retinopathy severity ([facility]/HCC) Severe obesity (BMI 35.0-39.9) with comorbidity (CMS/HCC) Long-term insulin use (CMS/HCC) Type 2 diabetes mellitus with stage 3a chronic kidney disease, with long-term current use of insulin (HCC) ([facility])- Primary Type 2 diabetes mellitus with peripheral neuropathy ([facility]/HCC) 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 associated with type 2 diabetes mellitus ([facility]/HCC) 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 associated with type 2 diabetes mellitus (CMS/HCC)- Primary Type 2 diabetes mellitus with stage 3a chronic kidney disease, with long-term current use of insulin (HCC) (CMS/HCC) Type 2 diabetes mellitus with peripheral neuropathy (CMS/HCC) 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 associated with type 2 diabetes mellitus (CMS/HCC)- Primary Type 2 diabetes mellitus with stage 3a chronic kidney disease, with long-term current use of insulin (HCC) (CMS/HCC) Type 2 diabetes mellitus with peripheral neuropathy (CMS/HCC) Bipolar 1 disorder (CMS/HCC) documented in this encounter [facility]* Diagnosis Diabetic nephropathy associated with type 2 diabetes mellitus (HCC) (CMS/HCC)- Primary Type 2 diabetes mellitus with peripheral neuropathy (CMS/HCC) Diabetic retinopathy of 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 associated with type 2 diabetes mellitus, unspecified retinopathy severity (CMS/HCC) Severe obesity (BMI 35.0-39.9) with comorbidity (CMS/HCC) Long-term insulin use (CMS/HCC) Type 2 diabetes mellitus with stage 3a chronic kidney disease, with long-term current use of insulin (HCC) (CMS/HCC)- Primary Type 2 diabetes mellitus with peripheral neuropathy (CMS/HCC) 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 associated with type 2 diabetes mellitus (CMS/HCC) 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 associated with type 2 diabetes mellitus (CMS/HCC)- Primary Type 2 diabetes mellitus with stage 3a chronic kidney disease, with long-term current use of insulin (HCC) (CMS/HCC) Type 2 diabetes mellitus with peripheral neuropathy (CMS/HCC) 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 associated with type 2 diabetes mellitus (CMS/HCC)- Primary Type 2 diabetes mellitus with stage 3a chronic kidney disease, with long-term current use of insulin (HCC) (CMS/HCC) Type 2 diabetes mellitus with peripheral neuropathy (CMS/HCC) Hypercalcemia- Primary Vitamin D deficiency Benign neoplasm of parathyroid gland Hypomagnesemia Disorders of magnesium metabolism Abnormal kidney function Nonspecific abnormal results of kidney function study documented in this encounter [facility]* Diagnosis Diabetic nephropathy associated with type 2 diabetes mellitus (HCC) (CMS/HCC)- Primary Type 2 diabetes mellitus with peripheral neuropathy (CMS/HCC) Diabetic retinopathy of 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 associated with type 2 diabetes mellitus, unspecified retinopathy severity (CMS/HCC) Severe obesity (BMI 35.0-39.9) with comorbidity (CMS/HCC) Long-term insulin use (CMS/HCC) Type 2 diabetes mellitus with stage 3a chronic kidney disease, with long-term current use of insulin (HCC) (CMS/HCC)- Primary Type 2 diabetes mellitus with peripheral neuropathy (CMS/HCC) 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 associated with type 2 diabetes mellitus (CMS/HCC) 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 associated with type 2 diabetes mellitus (CMS/HCC)- Primary Type 2 diabetes mellitus with stage 3a chronic kidney disease, with long-term current use of insulin (HCC) (CMS/HCC) Type 2 diabetes mellitus with peripheral neuropathy (CMS/HCC) 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 associated with type 2 diabetes mellitus (CMS/HCC)- Primary Type 2 diabetes mellitus with stage 3a chronic kidney disease, with long-term current use of insulin (HCC) (CMS/HCC) Type 2 diabetes mellitus with peripheral neuropathy (CMS/HCC) Metatarsalgia, left foot- Primary Diabetes 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 polyneuropathy, with long-term current use of insulin (CMS/HCC) Pain due to onychomycosis of toenails of both feet Type 2 diabetes mellitus with peripheral neuropathy (CMS/HCC) documented in this encounter [facility]* Diagnosis Diabetic nephropathy associated with type 2 diabetes mellitus (HCC) (CMS/HCC)- Primary Type 2 diabetes mellitus with peripheral neuropathy (CMS/HCC) Diabetic retinopathy of 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 associated with type 2 diabetes mellitus, unspecified retinopathy severity (CMS/HCC) Severe obesity (BMI 35.0-39.9) with comorbidity (CMS/HCC) Long-term insulin use (CMS/HCC) Type 2 diabetes mellitus with stage 3a chronic kidney disease, with long-term current use of insulin (HCC) (CMS/HCC)- Primary Type 2 diabetes mellitus with peripheral neuropathy (CMS/HCC) 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 associated with type 2 diabetes mellitus (CMS/HCC) 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 associated with type 2 diabetes mellitus (CMS/HCC)- Primary Type 2 diabetes mellitus with stage 3a chronic kidney disease, with long-term current use of insulin (HCC) (CMS/HCC) Type 2 diabetes mellitus with peripheral neuropathy (CMS/HCC) 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 associated with type 2 diabetes mellitus (CMS/HCC)- Primary Type 2 diabetes mellitus with stage 3a chronic kidney disease, with long-term current use of insulin (HCC) (CMS/HCC) Type 2 diabetes mellitus with peripheral neuropathy (CMS/HCC) 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 associated with type 2 diabetes mellitus (CMS/HCC)- Primary Type 2 diabetes mellitus with peripheral neuropathy (CMS/HCC) Type 2 diabetes mellitus with stage 3a chronic kidney disease, with long-term current use of insulin (HCC) (CMS/HCC) documented in this encounter [facility]* Diagnosis Diabetic nephropathy associated with type 2 diabetes mellitus (HCC) (CMS/HCC)- Primary Type 2 diabetes mellitus with peripheral neuropathy (CMS/HCC) Diabetic retinopathy of 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 associated with type 2 diabetes mellitus, unspecified retinopathy severity (CMS/HCC) Severe obesity (BMI 35.0-39.9) with comorbidity (CMS/HCC) Long-term insulin use (CMS/HCC) Type 2 diabetes mellitus with stage 3a chronic kidney disease, with long-term current use of insulin (HCC) (CMS/HCC)- Primary Type 2 diabetes mellitus with peripheral neuropathy (CMS/HCC) 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 associated with type 2 diabetes mellitus (CMS/HCC) 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 associated with type 2 diabetes mellitus (CMS/HCC)- Primary Type 2 diabetes mellitus with stage 3a chronic kidney disease, with long-term current use of insulin (HCC) (CMS/HCC) Type 2 diabetes mellitus with peripheral neuropathy (CMS/HCC) 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 associated with type 2 diabetes mellitus (CMS/HCC)- Primary Type 2 diabetes mellitus with stage 3a chronic kidney disease, with long-term current use of insulin (HCC) (CMS/HCC) Type 2 diabetes mellitus with peripheral neuropathy (CMS/HCC) 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 associated with type 2 diabetes mellitus (CMS/HCC)- Primary Type 2 diabetes mellitus with peripheral neuropathy (CMS/HCC) Type 2 diabetes mellitus with stage 3a chronic kidney disease, with long-term current use of insulin (HCC) (CMS/HCC) Bipolar 1 disorder (CMS/HCC) documented in this encounter [facility]* Diagnosis Diabetic nephropathy associated with type 2 diabetes mellitus (HCC) ([facility]/HCC)- Primary Type 2 diabetes mellitus with peripheral neuropathy (CMS/HCC) Diabetic retinopathy of 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 associated with type 2 diabetes mellitus, unspecified retinopathy severity (CMS/HCC) Severe obesity (BMI 35.0-39.9) with comorbidity (CMS/HCC) Long-term insulin use (CMS/HCC) Type 2 diabetes mellitus with stage 3a chronic kidney disease, with long-term current use of insulin (HCC) ([facility]/HCC)- Primary Type 2 diabetes mellitus with peripheral neuropathy (CMS/HCC) 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 associated with type 2 diabetes mellitus (CMS/HCC) 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 associated with type 2 diabetes mellitus (CMS/HCC)- Primary Type 2 diabetes mellitus with stage 3a chronic kidney disease, with long-term current use of insulin (HCC) ([facility]/HCC) Type 2 diabetes mellitus with peripheral neuropathy (CMS/HCC) 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 associated with type 2 diabetes mellitus (CMS/HCC)- Primary Type 2 diabetes mellitus with stage 3a chronic kidney disease, with long-term current use of insulin (HCC) ([facility]/HCC) Type 2 diabetes mellitus with peripheral neuropathy (CMS/HCC) 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 associated with type 2 diabetes mellitus (CMS/HCC)- Primary Type 2 diabetes mellitus with peripheral neuropathy (CMS/HCC) Type 2 diabetes mellitus with stage 3a chronic kidney disease, with long-term current use of insulin (HCC) ([facility]) Acute bronchitis, unspecified organism- Primary Chronic diarrhea Diarrhea documented in this encounter [facility]* Diagnosis Bipolar 1 disorder ([facility]/HCC) Metatarsalgia, left foot- Primary Diabetes 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 polyneuropathy, with long-term current use of insulin ([facility]) Onychomycosis Dermatophytosis of nail Toe pain, bilateral documented in this encounter [facility]* Diagnosis Metatarsalgia, left foot- Primary Diabetes 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 polyneuropathy, with long-term current use of insulin ([facility]) Onychomycosis Dermatophytosis of nail Toe pain, bilateral documented [facility] encounter [facility]* Diagnosis Bipolar 1 disorder (CMS/HCC) documented in this encounter [facility]* Diagnosis Seasonal allergic rhinitis due to pollen documented in this encounter [facility]* Diagnosis Diabetic nephropathy associated with type 2 diabetes mellitus (HCC) (CMS/HCC)- Primary Type 2 diabetes mellitus with peripheral neuropathy (CMS/HCC) Diabetic retinopathy of 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 associated with type 2 diabetes mellitus, unspecified retinopathy severity (CMS/HCC) Severe obesity (BMI 35.0-39.9) with comorbidity (CMS/HCC) Long-term insulin use (CMS/HCC) Type 2 diabetes mellitus with stage 3a chronic kidney disease, with long-term current use of insulin (HCC) (CMS/HCC)- Primary Type 2 diabetes mellitus with peripheral neuropathy (CMS/HCC) 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 associated with type 2 diabetes mellitus (CMS/HCC) 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 associated with type 2 diabetes mellitus (CMS/HCC)- Primary Type 2 diabetes mellitus with stage 3a chronic kidney disease, with long-term current use of insulin (HCC) (CMS/HCC) Type 2 diabetes mellitus with peripheral neuropathy (CMS/HCC) 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 associated with type 2 diabetes mellitus (CMS/HCC)- Primary Type 2 diabetes mellitus with stage 3a chronic kidney disease, with long-term current use of insulin (HCC) (CMS/HCC) Type 2 diabetes mellitus with peripheral neuropathy (CMS/HCC) 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 associated with type 2 diabetes mellitus (CMS/HCC)- Primary Type 2 diabetes mellitus with peripheral neuropathy (CMS/HCC) Type 2 diabetes mellitus with stage 3a chronic kidney disease, with long-term current use of insulin (HCC) (CMS/HCC) Bipolar 1 disorder (CMS/HCC) Diabetes 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 polyneuropathy, with long-term current use of insulin ([facility]/HCC)- Primary Pain due to onychomycosis of toenails of both feet Metatarsalgia, left foot documented in this encounter [facility]* Diagnosis Spinal stenosis of lumbar region with neurogenic claudication- Primary Spinal stenosis of lumbar region with neurogenic claudication- Primary Spinal stenosis of lumbar region with neurogenic claudication [facility] Diagnosis Diabetic nephropathy associated with type 2 diabetes mellitus (HCC) (CMS/HCC)- Primary Type 2 diabetes mellitus with peripheral neuropathy (CMS/HCC) Diabetic retinopathy of 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 associated with type 2 diabetes mellitus, unspecified retinopathy severity (CMS/HCC) Severe obesity (BMI 35.0-39.9) with comorbidity (CMS/HCC) Long-term insulin use (CMS/HCC) Type 2 diabetes mellitus with stage 3a chronic kidney disease, with long-term current use of insulin (HCC) (CMS/HCC)- Primary Type 2 diabetes mellitus with peripheral neuropathy (CMS/HCC) 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 associated with type 2 diabetes mellitus (CMS/HCC) 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 associated with type 2 diabetes mellitus (CMS/HCC)- Primary Type 2 diabetes mellitus with stage 3a chronic kidney disease, with long-term current use of insulin (HCC) (CMS/HCC) Type 2 diabetes mellitus with peripheral neuropathy (CMS/HCC) 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 associated with type 2 diabetes mellitus (CMS/HCC)- Primary Type 2 diabetes mellitus with stage 3a chronic kidney disease, with long-term current use of insulin (HCC) (CMS/HCC) Type 2 diabetes mellitus with peripheral neuropathy (CMS/HCC) 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 associated with type 2 diabetes mellitus (CMS/HCC)- Primary Type 2 diabetes mellitus with peripheral neuropathy (CMS/HCC) Type 2 diabetes mellitus with stage 3a chronic kidney disease, with long-term current use of insulin (HCC) (CMS/HCC) Bipolar 1 disorder (CMS/HCC) Diabetes 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 polyneuropathy, with long-term current use of insulin (CMS/HCC)- Primary Pain due to onychomycosis of toenails of both feet Metatarsalgia, left foot documented in this encounter [facility]* Diagnosis Diabetic nephropathy associated with type 2 diabetes mellitus (HCC) (CMS/HCC)- Primary Type 2 diabetes mellitus with peripheral neuropathy (CMS/HCC) Diabetic retinopathy of 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 associated with type 2 diabetes mellitus, unspecified retinopathy severity (CMS/HCC) Severe obesity (BMI 35.0-39.9) with comorbidity (CMS/HCC) Long-term insulin use (CMS/HCC) Type 2 diabetes mellitus with stage 3a chronic kidney disease, with long-term current use of insulin (HCC) (CMS/HCC)- Primary Type 2 diabetes mellitus with peripheral neuropathy (CMS/HCC) 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 associated with type 2 diabetes mellitus (CMS/HCC) 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 associated with type 2 diabetes mellitus (CMS/HCC)- Primary Type 2 diabetes mellitus with stage 3a chronic kidney disease, with long-term current use of insulin (HCC) (CMS/HCC) Type 2 diabetes mellitus with peripheral neuropathy (CMS/HCC) 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 associated with type 2 diabetes mellitus (CMS/HCC)- Primary Type 2 diabetes mellitus with stage 3a chronic kidney disease, with long-term current use of insulin (HCC) (CMS/HCC) Type 2 diabetes mellitus with peripheral neuropathy (CMS/HCC) 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 associated with type 2 diabetes mellitus (CMS/HCC)- Primary Type 2 diabetes mellitus with peripheral neuropathy (CMS/HCC) Type 2 diabetes mellitus with stage 3a chronic kidney disease, with long-term current use of insulin (HCC) (CMS/HCC) Metatarsalgia, left foot- Primary Diabetes 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 polyneuropathy, with long-term current use of insulin (CMS/HCC) Pain due to onychomycosis of toenails of both feet documented in this encounter [facility]* Diagnosis Lumbar spondylosis- Primary Lumbosacral spondylosis without myelopathy Chest pain, unspecified type- Primary Primary hypertension Unspecified essential hypertension Familial hypercholesterolemia Abnormal EKG Nonspecific abnormal electrocardiogram (ECG) (EKG) Lumbar spondylosis Lumbosacral spondylosis without myelopathy [facility] Diagnosis Lumbar spondylosis- Primary Lumbosacral spondylosis without myelopathy Familial hypercholesterolemia- Primary [facility]* Diagnosis Lumbar spondylosis- Primary Lumbosacral spondylosis without myelopathy Lumbar spondylosis- Primary Lumbosacral spondylosis without myelopathy Lumbar spondylosis Lumbosacral spondylosis without myelopathy Lumbar spondylosis Lumbosacral spondylosis without myelopathy [facility]* Diagnosis Lumbar spondylosis- Primary Lumbosacral spondylosis without myelopathy Trochanteric bursitis of left hip Disorder of sacrum Disorders of sacrum Disorder of sacrum- Primary Disorders of sacrum Disorder of sacrum Disorders of sacrum [facility]* Diagnosis Lumbar spondylosis- Primary Lumbosacral spondylosis without myelopathy Disorder of sacrum Disorders of sacrum Spinal stenosis of lumbar region with neurogenic claudication Spinal stenosis of lumbar region with neurogenic claudication- Primary Spinal stenosis of lumbar region with neurogenic claudication [facility]* Diagnosis Disorder of sacrum- Primary Disorders of sacrum Disorder of sacrum- Primary Disorders of sacrum Disorder of sacrum Disorders of sacrum [facility]* Diagnosis Diabetic nephropathy associated with type 2 diabetes mellitus (HCC) (CMS/HCC)- Primary Type 2 diabetes mellitus with peripheral neuropathy (CMS/HCC) Diabetic retinopathy of 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 associated with type 2 diabetes mellitus, unspecified retinopathy severity (CMS/HCC) Severe obesity (BMI 35.0-39.9) with comorbidity (CMS/HCC) Long-term insulin use (CMS/HCC) Type 2 diabetes mellitus with stage 3a chronic kidney disease, with long-term current use of insulin (HCC) (CMS/HCC)- Primary Type 2 diabetes mellitus with peripheral neuropathy (CMS/HCC) 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 associated with type 2 diabetes mellitus (CMS/HCC) 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 associated with type 2 diabetes mellitus (CMS/HCC)- Primary Type 2 diabetes mellitus with stage 3a chronic kidney disease, with long-term current use of insulin (HCC) (CMS/HCC) Type 2 diabetes mellitus with peripheral neuropathy (CMS/HCC) 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 associated with type 2 diabetes mellitus (CMS/HCC)- Primary Type 2 diabetes mellitus with stage 3a chronic kidney disease, with long-term current use of insulin (HCC) (CMS/HCC) Type 2 diabetes mellitus with peripheral neuropathy (CMS/HCC) 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 associated with type 2 diabetes mellitus (CMS/HCC)- Primary Type 2 diabetes mellitus with peripheral neuropathy (CMS/HCC) Type 2 diabetes mellitus with stage 3a chronic kidney disease, with long-term current use of insulin (HCC) (CMS/HCC) Bipolar 1 disorder (CMS/HCC) documented in this encounter [facility]* Diagnosis Diabetic nephropathy associated with type 2 diabetes mellitus (HCC) (CMS/HCC)- Primary Type 2 diabetes mellitus with peripheral neuropathy (CMS/HCC) Diabetic retinopathy of 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 associated with type 2 diabetes mellitus, unspecified retinopathy severity (CMS/HCC) Severe obesity (BMI 35.0-39.9) with comorbidity (CMS/HCC) Long-term insulin use (CMS/HCC) Type 2 diabetes mellitus with stage 3a chronic kidney disease, with long-term current use of insulin (HCC) (CMS/HCC)- Primary Type 2 diabetes mellitus with peripheral neuropathy (CMS/HCC) 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 associated with type 2 diabetes mellitus (CMS/HCC) 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 associated with type 2 diabetes mellitus (CMS/HCC)- Primary Type 2 diabetes mellitus with stage 3a chronic kidney disease, with long-term current use of insulin (HCC) (CMS/HCC) Type 2 diabetes mellitus with peripheral neuropathy (CMS/HCC) 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 associated with type 2 diabetes mellitus (CMS/HCC)- Primary Type 2 diabetes mellitus with stage 3a chronic kidney disease, with long-term current use of insulin (HCC) (CMS/HCC) Type 2 diabetes mellitus with peripheral neuropathy (CMS/HCC) 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 associated with type 2 diabetes mellitus (CMS/HCC)- Primary Type 2 diabetes mellitus with peripheral neuropathy (CMS/HCC) Type 2 diabetes mellitus with stage 3a chronic kidney disease, with long-term current use of insulin (HCC) (CMS/HCC) Hematuria, unspecified type- Primary Generalized abdominal pain Abdominal pain, generalized documented in this encounter [facility]* Diagnosis Diabetic nephropathy associated with type 2 diabetes mellitus (HCC) (CMS/HCC)- Primary Type 2 diabetes mellitus with peripheral neuropathy (CMS/HCC) Diabetic retinopathy of 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 associated with type 2 diabetes mellitus, unspecified retinopathy severity (CMS/HCC) Severe obesity (BMI 35.0-39.9) with comorbidity (CMS/HCC) Long-term insulin use (CMS/HCC) Type 2 diabetes mellitus with stage 3a chronic kidney disease, with long-term current use of insulin (HCC) (CMS/HCC)- Primary Type 2 diabetes mellitus with peripheral neuropathy (CMS/HCC) 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 associated with type 2 diabetes mellitus (CMS/HCC) 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 associated with type 2 diabetes mellitus (CMS/HCC)- Primary Type 2 diabetes mellitus with stage 3a chronic kidney disease, with long-term current use of insulin (HCC) (CMS/HCC) Type 2 diabetes mellitus with peripheral neuropathy (CMS/HCC) 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 associated with type 2 diabetes mellitus (CMS/HCC)- Primary Type 2 diabetes mellitus with stage 3a chronic kidney disease, with long-term current use of insulin (HCC) (CMS/HCC) Type 2 diabetes mellitus with peripheral neuropathy (CMS/HCC) 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 associated with type 2 diabetes mellitus (CMS/HCC)- Primary Type 2 diabetes mellitus with peripheral neuropathy (CMS/HCC) Type 2 diabetes mellitus with stage 3a chronic kidney disease, with long-term current use of insulin (HCC) (CMS/HCC) Routine general medical examination at a health care facility- Primary Adrenal mass (CMS/HCC) Unspecified disorder of adrenal glands High cholesterol (CMS/HCC) Pure hypercholesterolemia COPD (chronic obstructive pulmonary disease) with chronic bronchitis (CMS/HCC) Bipolar affective disorder, currently depressed, moderate (CMS/HCC) Bipolar I disorder, most recent episode (or current) depressed, moderate Type 2 diabetes mellitus with stage 3a chronic kidney disease, with long-term current use of insulin (HCC) (CMS/HCC) Acquired absence of both cervix and uterus Simple chronic bronchitis (CMS/HCC) Simple chronic bronchitis Mixed hyperlipidemia (CMS/HCC) Mixed hyperlipidemia Primary hypertension (CMS/HCC) Unspecified essential hypertension Type 2 diabetes mellitus with peripheral neuropathy (CMS/HCC) Stage 3a chronic kidney disease (HCC) (CMS/HCC) 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 associated with type 2 diabetes mellitus (CMS/HCC) Generalized abdominal pain Abdominal pain, generalized Encounter for screening mammogram for malignant neoplasm of breast Generalized abdominal pain Abdominal pain, generalized documented in this encounter [facility]* Diagnosis Diabetic nephropathy associated with type 2 diabetes mellitus (HCC) (CMS/HCC)- Primary Type 2 diabetes mellitus with peripheral neuropathy (CMS/HCC) Diabetic retinopathy of 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 associated with type 2 diabetes mellitus, unspecified retinopathy severity (CMS/HCC) Severe obesity (BMI 35.0-39.9) with comorbidity (CMS/HCC) Long-term insulin use (CMS/HCC) Type 2 diabetes mellitus with stage 3a chronic kidney disease, with long-term current use of insulin (HCC) (CMS/HCC)- Primary Type 2 diabetes mellitus with peripheral neuropathy (CMS/HCC) 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 associated with type 2 diabetes mellitus (CMS/HCC) 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 associated with type 2 diabetes mellitus (CMS/HCC)- Primary Type 2 diabetes mellitus with stage 3a chronic kidney disease, with long-term current use of insulin (HCC) (CMS/HCC) Type 2 diabetes mellitus with peripheral neuropathy (CMS/HCC) 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 associated with type 2 diabetes mellitus (CMS/HCC)- Primary Type 2 diabetes mellitus with stage 3a chronic kidney disease, with long-term current use of insulin (HCC) (CMS/HCC) Type 2 diabetes mellitus with peripheral neuropathy (CMS/HCC) 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 associated with type 2 diabetes mellitus (CMS/HCC)- Primary Type 2 diabetes mellitus with peripheral neuropathy (CMS/HCC) Type 2 diabetes mellitus with stage 3a chronic kidney disease, with long-term current use of insulin (HCC) (CMS/HCC) Constipation, unspecified constipation type- Primary documented in this encounter [facility]* Diagnosis Lumbosacral spondylosis without myelopathy- Primary [facility] Diagnosis Diabetic nephropathy associated with type 2 diabetes mellitus (HCC) (CMS/HCC)- Primary Type 2 diabetes mellitus with peripheral neuropathy (CMS/HCC) Diabetic retinopathy of 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 associated with type 2 diabetes mellitus, unspecified retinopathy severity (CMS/HCC) Severe obesity (BMI 35.0-39.9) with comorbidity (CMS/HCC) Long-term insulin use (CMS/HCC) Type 2 diabetes mellitus with stage 3a chronic kidney disease, with long-term current use of insulin (HCC) (CMS/HCC)- Primary Type 2 diabetes mellitus with peripheral neuropathy (CMS/HCC) 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 associated with type 2 diabetes mellitus (CMS/HCC) 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 associated with type 2 diabetes mellitus (CMS/HCC)- Primary Type 2 diabetes mellitus with stage 3a chronic kidney disease, with long-term current use of insulin (HCC) (CMS/HCC) Type 2 diabetes mellitus with peripheral neuropathy (CMS/HCC) 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 associated with type 2 diabetes mellitus (CMS/HCC)- Primary Type 2 diabetes mellitus with stage 3a chronic kidney disease, with long-term current use of insulin (HCC) (CMS/HCC) Type 2 diabetes mellitus with peripheral neuropathy (CMS/HCC) 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 associated with type 2 diabetes mellitus (CMS/HCC)- Primary Type 2 diabetes mellitus with peripheral neuropathy (CMS/HCC) Type 2 diabetes mellitus with stage 3a chronic kidney disease, with long-term current use of insulin (HCC) (CMS/HCC) Type 2 diabetes mellitus with peripheral neuropathy (CMS/HCC)- Primary Type 2 diabetes mellitus with stage 3a chronic kidney disease, with long-term current use of insulin (HCC) (CMS/HCC) 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 associated with type 2 diabetes mellitus (CMS/HCC) Type 2 diabetes mellitus with hyperglycemia, with long-term current use of insulin (CMS/HCC) documented in this encounter [facility]* Diagnosis Diabetic nephropathy associated with type 2 diabetes mellitus (HCC) (CMS/HCC)- Primary Type 2 diabetes mellitus with peripheral neuropathy (CMS/HCC) Diabetic retinopathy of 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 associated with type 2 diabetes mellitus, unspecified retinopathy severity (CMS/HCC) Severe obesity (BMI 35.0-39.9) with comorbidity (CMS/HCC) Long-term insulin use (CMS/HCC) Type 2 diabetes mellitus with stage 3a chronic kidney disease, with long-term current use of insulin (HCC) (CMS/HCC)- Primary Type 2 diabetes mellitus with peripheral neuropathy (CMS/HCC) 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 associated with type 2 diabetes mellitus (CMS/HCC) 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 associated with type 2 diabetes mellitus (CMS/HCC)- Primary Type 2 diabetes mellitus with stage 3a chronic kidney disease, with long-term current use of insulin (HCC) (CMS/HCC) Type 2 diabetes mellitus with peripheral neuropathy (CMS/HCC) 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 associated with type 2 diabetes mellitus (CMS/HCC)- Primary Type 2 diabetes mellitus with stage 3a chronic kidney disease, with long-term current use of insulin (HCC) (CMS/HCC) Type 2 diabetes mellitus with peripheral neuropathy (CMS/HCC) 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 associated with type 2 diabetes mellitus (CMS/HCC)- Primary Type 2 diabetes mellitus with peripheral neuropathy (CMS/HCC) Type 2 diabetes mellitus with stage 3a chronic kidney disease, with long-term current use of insulin (HCC) (CMS/HCC) Type 2 diabetes mellitus with peripheral neuropathy (CMS/HCC)- Primary Type 2 diabetes mellitus with stage 3a chronic kidney disease, with long-term current use of insulin (HCC) (CMS/HCC) 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 associated with type 2 diabetes mellitus (CMS/HCC) Type 2 diabetes mellitus with hyperglycemia, with long-term current use of insulin (CMS/HCC) Bipolar 1 disorder (CMS/HCC) documented in this encounter [facility]* Diagnosis Diabetic nephropathy associated with type 2 diabetes mellitus (HCC) (CMS/HCC)- Primary Type 2 diabetes mellitus with peripheral neuropathy (CMS/HCC) Diabetic retinopathy of 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 associated with type 2 diabetes mellitus, unspecified retinopathy severity (CMS/HCC) Severe obesity (BMI 35.0-39.9) with comorbidity (CMS/HCC) Long-term insulin use (CMS/HCC) Type 2 diabetes mellitus with stage 3a chronic kidney disease, with long-term current use of insulin (HCC) (CMS/HCC)- Primary Type 2 diabetes mellitus with peripheral neuropathy (CMS/HCC) 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 associated with type 2 diabetes mellitus (CMS/HCC) 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 associated with type 2 diabetes mellitus (CMS/HCC)- Primary Type 2 diabetes mellitus with stage 3a chronic kidney disease, with long-term current use of insulin (HCC) (CMS/HCC) Type 2 diabetes mellitus with peripheral neuropathy (CMS/HCC) 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 associated with type 2 diabetes mellitus (CMS/HCC)- Primary Type 2 diabetes mellitus with stage 3a chronic kidney disease, with long-term current use of insulin (HCC) (CMS/HCC) Type 2 diabetes mellitus with peripheral neuropathy (CMS/HCC) 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 associated with type 2 diabetes mellitus (CMS/HCC)- Primary Type 2 diabetes mellitus with peripheral neuropathy (CMS/HCC) Type 2 diabetes mellitus with stage 3a chronic kidney disease, with long-term current use of insulin (HCC) (CMS/HCC) Type 2 diabetes mellitus with peripheral neuropathy (CMS/HCC)- Primary Type 2 diabetes mellitus with stage 3a chronic kidney disease, with long-term current use of insulin (HCC) (CMS/HCC) 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 associated with type 2 diabetes mellitus (CMS/HCC) Type 2 diabetes mellitus with hyperglycemia, with long-term current use of insulin (CMS/HCC) Vitamin D deficiency documented in this encounter [facility] Author Peyton Hoskins [facility] July 12, 2022 1:05pm Note Date/Time July 12, 2022 1:05pm [facility] [address] [place] [address] Gastroenterology H&P Signed Patient: Radha Jones MR#: [id number] : 1970 Acct:[id number] Age/Sex: 51 / F Adm Date: 3 Loc: Room: Type: [facility] Attending Dr: Peyton Hoskins MD Copies to: MD Kaylie Tarango, TAMMIE, MACHINE FITTER~ Date of Service: 07/12/2022 HISTORY & PHYSICAL: [...] an appropriate candidate for the procedure. Peyton Hosknis M.D. Documented By: Peyton Hoskins MD 07/12/22 1305 Signed By: <Electronically signed by Peyton Hoskins MD> 07/12/22 1305 [facility] Work Phone: Hisftmj general Narrative - Reported* Type Description Date [...] 2014 Hospitalization History See past surgical hx [facility] Other [facility] general Narrative - Reported* Type Description Date [...] 2013 Hospitalization History See past surgical hx [facility] Other History general Narrative - Reported* Type [...] 2013 Hospitalization History See past surgical hx [facility] Other Hospital Discharge instructions No data available for this section [facility] Additional Instructions DISCHARGE INSTRUCTIONS FOR [...] NOT operate machinery such as power tools, [address] [employer] mowers, snow blowers, sewing machines, etc. for [...] problems. -Follow up with PCP. -Office number [phone]. [facility] Work Phone: InstructionsNot on filedocumented in this encounter [facility] filedocument[facility] in this [facility]Not on filedocumented in this encounter [facility]Not on filedocumented in this encounter [facility] No data available for this section [facility] for visit NarrativePatient here at the request of Dr. Chavez for evaluation & treatment of dysphagia.[facility] Other [facility] for visit Narrative* Behavioral Health - Outpatient (Routine) - Closed Specialty Diagnoses / Procedures Referred By Randall t Referred To Contact Behavioral Health Diagnoses Generalized anxiety disorder (CMS/[facility]) Procedures [place] PSYCHIATRIC DIAGNOSTIC EVALUATION [facility] [address] [place] [address] Phone: tel: fax: Lindy Valentino, [facility] [address] [facility] [address] [place] [address] Phone: tel: fax: Referral ID Status Reason Start Date Expiration Date Visits Re quested Visits Authorized [id number] Closed 02/20/2024 08/18/2024 1 1 [facility] Summary Purpose Family History Relationship Condition Age at Onset Recorded Date/T [...] Unknown mother Diabetes mellitus Unknown Advance Directives Advance Directive Response Recorded Date/ Time Advance [...] kidney disease) stage 3, GFR 30-59 ml/min [id number] Hypomagnesemia Type 2 diabetes mellitus with diabetic chronic kidney disease Hypercalcemia Chief Complaint RENAL F/U Reason for Visit Adrenal nodule CKD (chronic kidney disease) stage 3, GFR 30-59 ml/min [id number] Hypomagnesemia Type 2 diabetes mellitus with diabetic chronic kidney disease Hypercalcemia Chief Complaint BH m54.50 Chief Complaint BH m54.50 Other intervertebral disc displacement, lumbar Chief Complaint m54.50 Other intervertebral disc displacement, lumbar BH RENAL 6 MONTH F/U Reason for Visit History of lumbar fu paul Lumbar stenosis Piriformis syndrome of left side Adrenal nodule CKD (chronic kidney disease) stage 3, GFR 30-59 ml/min [id number] Hypomagnesemia Type 2 diabetes mellitus with diabetic chronic kidney disease Hypercalcemia Reason for Referral Specialty Diagnoses / Procedures Referred By Contac t Referred To Contact Diagnoses Spinal stenosis of lumbar region with neurogenic claudication Procedures Case request operating room: INJECTION SPINE TRANSFORAMINAL Left 4,5 NR Live Kwon PA-C [address], [address] [place] [id number] Referral ID Status Reason Start Date Expiration Date V isits Requested Visits Authorized [id number] Pending Review 12/11/2023 12/10/2024 1 1 Specialty Diagnoses / Procedures Referred By Contac t Referred To Contact Diagnoses Disorder of sacrum Procedures Case request operating room: INJECTION BLOCK SACROILIAC JOINT Bilateral SI Joint Live Kwon PA-C [address], [address] [place] [id number] Referral ID Status Reason Start Date Expiration Date V isits Requested Visits Authorized [id number] Pending Review 10/23/2023 10/22/2024 1 1 Specialty Diagnoses / Procedures Referred By Contac t Referred To Contact Rehabilitation Diagnoses Lumbar spondylosis Trochanteric bursitis of left hip Disorder of sacrum Live Kwon PA-C [address] [address] [facility] [address] [place] [address] Referral ID Status Reason Start Date Expiration Date Visits Requested Visits Authorized [id number] Authorized Specialty Services Required 10/23/2023 10/22/2024 1 1 Specialty Diagnoses / Procedures Referred By Contac t Referred To Contact Diagnoses Lumbar spondylosis Procedures Case request operating room: RADIOFREQUENCY ABLATION SPINAL Left L 2/3, 3/4 Live Kwon PA-C [address] [facility], [address] [place] [id number] Referral ID Status Reason Start Date Expiration Date V isits Requested Visits Authorized [id number] Pending Review 06/12/2023 06/11/2024 1 1 Specialty Diagnoses / Procedures Referred By Contac t Referred To Contact Diagnoses Lumbar spondylosis Procedures Case request operating room: RADIOFREQUENCY ABLATION SPINAL Right L 2/3 3/4 Live Kwon PA-C [address] [facility], [address] [place] [phone] Referral ID Status Reason Start Date Expiration Date V isits Requested Visits Authorized [id number] Pending Review 06/12/2023 06/11/2024 1 1 Specialty Diagnoses / Procedures Referred By Contac t Referred To Contact Diagnoses Chest pain, unspecified type Abnormal EKG Procedures Nuc stress [employer] Bird Dykes MD [address] [place] [address] [facility] [address] [place] [address] Phone: [phone] Referral ID Status Reason Start Date Expiration Date V isits Requested Visits Authorized [id number] Authorized 03/15/2023 03/14/2024 5 5 Additional Source Comments REASON FOR VISIT (unrecogniz ed section and content) Reason Comments DM Foot Care Reason Comments Abnormal Calcium Follow-up Reason Comments DM Foot Care Dm Nails Reason Comments Diabetes Reason Comments URI Patient presents tod ay for cough, congestion, fatigue for about 1.5 weeks. Patient has diarrhea x 1 month. Reason Comments Med Refill Reason Comments Back Pain Reason Comments DM Foot Care Dm nail care Reason Onset Date Comments Back pain 06/21/2023 Reason Comments Follow-up EST PT F/U 1 YR LABS AT [facility] SCHED W/PT L/S GRU Reason Onset Date Comments Direct LDL 03/28/2023 Reason Onset Date Comments Surgical Or Dental Clearance 04/26/2023 Reason Comments Back Pain Reason Comments Pain Reason Comments Annual Exam Reason Comments Back Pain Reason Onset Date Comments Appointment Confirmation 05/18/2024 Reason Comments Diabetes Patient Care team informatio n (unrecognized section and content) Team Status: Active Member Role Status Dates Kaylie Chavez APRN COFFEE SAMPLER-C Primary Care Provider Active Team Status: Inactive Member Role Status Dates Kaylie Chavez APRN COFFEE SAMPLER-C Primary Care Provider Active Start: September 30, 2023 End: September 30, 2023 Jeovanny Mendes MD Attending Provider Active Star t: September 30, 2023 End: September 30, 2023 Team Status: Inactive Member Role Status Dates Kaylie Chavez APRN COFFEE SAMPLER-C Primary Care Provider Active Start: October 01, 2023 End: October 01, 2023 Jeovanny Mendes MD Attending Provider Active Star t: October 01, 2023 End: October 01, 2023 Team Status: Active Member Role Status Dates Kaylie Chavez APRN COFFEE SAMPLER-C Primary Care Provider Active Start: October 29, 2023 Fermín Donahue MD Attending Provider Active Start: October 29, 2023 Team Status: Active Member Role Status Dates Kaylie Chavez APRN COFFEE SAMPLER-C Primary Care Provider Active Start: November 13, 2023 Nir Moscoso MD Attending Provider Active Start : November 13, 2023 Team Status: Inactive Member Role Status Dates Kaylie Chavez APRN COFFEE SAMPLER-C Primary Care Provider Active Start: November 21, 2023 End: November 21, 2023 Nir Moscoso MD Attending Provider Active Start : November 21, 2023 End: November 21, 2023 Team Status: Active Member Role Status Dates Kaylie Chavez APRN COFFEE SAMPLER-C Primary Care Provider Active Start: April 16, 2023 Fermín Donahue MD Attending Provider Active Start: April 16, 2023 Team Status: Inactive Member Role Status Dates Kaylie Chavez APRN COFFEE SAMPLER-C Primary Care Provider Active Start: April 25, 2023 End: April 25, 2023 Nir Moscoso MD Attending Provider Active Start : April 25, 2023 End: April 25, 2023 Team Status: Inactive Member Role Status Dates Kaylie Chavez APRN COFFEE SAMPLER-C Primary Care Provider Active Peyton Hoskins MD Attending Provider Active Team Status: Active Member Role Status Dates Kala Lloyd MD Primary Care Provider Active Kaylie Chavez APRN COFFEE SAMPLER-C Referring Provider Active Isela Downs MD Attending Provider Active Team Status: Active Member Role Status Dates Kaylie Chavez APRN COFFEE SAMPLER-C Primary Care Provider Active Herrera Donahue MD Attending Provider Active Team Status: Inactive Member Role Status Dates Kaylie Chavez APRN COFFEE SAMPLER-C Primary Care Provider Active Nir Moscoso MD Attending Provider Active Transport Conductor Relationship Specialty Start Date End Date Kala Lloyd MD [address] [place] [address] PCP - General Family Medicine 08/07/22 Kaylie Chavez NP [address] [facility] [place] [address] Nurse Practitioner Family Medicine 08/07/22 Transport Conductor Relationship Specialty Start Date End Date Kala Lloyd MD [address] [place] [address] PCP - General Family Medicine 08/07/22 Kaylie Chavez NP [address] [facility] [place] [address] Nurse Practitioner Family Medicine 08/07/22 Team Status: Active Member Role Status Dates Kaylie Chavez APRN COFFEE SAMPLER-C Primary Care Provider Active Start: September 24, 2023 Fermín Donahue MD Attending Provider Active Start: September 24, 2023 Transport Conductor Relationship Specialty Start Date End Date Kala Lloyd MD [address] [place] [address] PCP - General Family Medicine 08/07/22 Kala Lloyd MD [address] [place] [address] PCP - [facility] 06/10/23 Kaylie Chavez NP [address] [facility] [place] [address] Nurse Practitioner Family Medicine 08/07/22 Transport Conductor Relationship Specialty Start Date End Date Kala Lloyd MD [address] [facility] [place] [address] PCP - General Family Medicine 08/07/22 Kala Lloyd MD [address] [facility] [place] [address] PCP - [facility] 06/10/23 Kaylie Chavez COFFEE SAMPLER [address] [facility] [place] [address] Nurse Practitioner Family Medicine 08/07/22 Transport Conductor Relationship Specialty Start Date End Date Kala Lloyd MD [address] [place] [address] PCP - General Family Medicine 08/07/22 Kala Lloyd MD [address] [facility] [place] [address] PCP - [facility] 06/10/23 Kaylie Chavez, COFFEE SAMPLER [address] [place] [address] Nurse Practitioner Family Medicine 08/07/22 Transport Conductor Relationship Specialty Start Date End Date Kala Lloyd MD [address] [place] [address] PCP - General Family Medicine 08/07/22 Kala Lloyd MD [address] [place] [address] PCP - [facility] 06/10/23 Kaylie Chavez NP [address] [place] [address] Nurse Practitioner Family Medicine 08/07/22 Transport Conductor Relationship Specialty Start Date End Date Kala Lloyd MD [address] [place] [address] PCP - General Family Medicine 08/07/22 Kala Lloyd MD [address] [place] [address] PCP - [facility] 06/10/23 Kaylie Chavez, AKILAH [address] [place] [address] Nurse Practitioner Family Medicine 08/07/22 Transport Conductor Relationship Specialty Start Date End Date Kala Lloyd MD [address] [place] [address] PCP - General Family Medicine 08/07/22 Kala Lloyd MD [address] [place] [address] PCP - [facility] 06/10/23 Kaylie Chavez, AKILAH [address] [facility] [place] [address] Nurse Practitioner Family Medicine 08/07/22 Transport Conductor Relationship Specialty Start Date End Date Kala Lloyd MD [address] [facility] [place] [address] PCP - General Family Medicine 08/07/22 Kala Lloyd MD [address] [facility] [place] [address] PCP - [facility] 06/10/23 Kaylie Chavez NP [address] [facility] [place] [address] Nurse Practitioner Family Medicine 08/07/22 Transport Conductor Relationship Specialty Start Date End Date Kala Lloyd MD [address] [facility] [place] [address] PCP - General Family Medicine 08/07/22 Kala Lloyd MD [address] [facility] [place] [address] PCP - [facility] 06/10/23 Kaylie Chavez, COFFEE SAMPLER [address] [facility] [place] [address] Nurse Practitioner Family Medicine 08/07/22 Transport Conductor Relationship Specialty Start Date End Date Kala Lloyd MD [address] [facility] [place] [address] PCP - General Family Medicine 08/07/22 Kaylie Chavez NP [address] [place] [address] Nurse Practitioner Family Medicine 08/07/22 Transport Conductor Relationship Specialty Start Date End Date Kala Lloyd MD [address] [place] [address] PCP - General Family Medicine 08/07/22 Kaylie Chavez NP [address] [place] [address] Nurse Practitioner Family Medicine 08/07/22 Transport Conductor Relationship Specialty Start Date End Date Kala Lloyd MD [address] [place] [address] PCP - General Family Medicine 08/07/22 Kaylie Chavez NP [address] [place] [address] Nurse Practitioner Family Medicine 08/07/22 Transport Conductor Relationship Specialty Start Date End Date Kala Lloyd MD [address] [place] [address] PCP - General Family Medicine 08/07/22 Kaylie Chavez NP [address] [place] [address] Nurse Practitioner Family Medicine 08/07/22 Transport Conductor Relationship Specialty Start Date End Date Kala Lloyd MD [address] [place] [address] PCP - General Family Medicine 08/07/22 Kaylie Cahvez NP [address] [place] [address] Nurse Practitioner Family Medicine 08/07/22 Transport Conductor Relationship Specialty Start Date End Date Kala Lloyd MD [address] [facility] [place] [address] PCP - General Family Medicine 08/07/22 Kala Lloyd MD [address] [place] [address] PCP - [facility] [employer] [facility] 06/10/23 Kaylie Chavez, COFFEE SAMPLER [address] [place] [address] Nurse Practitioner Family Medicine 08/07/22 Transport Conductor Relationship Specialty Start Date End Date Kala Lloyd MD [address] [place] [address] PCP - General Family Medicine 08/07/22 Kala Lloyd MD [address] [place] [address] PCP - [facility] 06/10/23 Kaylie Chavez, COFFEE SAMPLER [address] [place] [address] Nurse Practitioner Family Medicine 08/07/22 Lindy Valentino, [facility] [address] [facility] [address] [place] [address] Behavioral Health 03/18/24 Transport Conductor Relationship Specialty Start Date End Date Kala Lloyd MD [address] [place] [address] PCP - General Family Medicine 08/07/22 Kala Lloyd MD [address] [place] [address] PCP - [facility] 06/10/23 Kaylie Chavez, COFFEE SAMPLER [address] [place] [address] Nurse Practitioner Family Medicine 08/07/22 Lindy Valentino [facility] [address] [place] [address] Behavioral Health 03/18/24 Transport Conductor Relationship Specialty Start Date End Date Kaylie Chavez, CASHIER MANAGER-MACHINE FITTER PCP - General Nurse Practitioner 11/20/18 Transport Conductor Relationship Specialty Start Date End Date Kala Lloyd MD [address] [place] [address] PCP - General Family Medicine 08/07/22 Kala Lloyd MD [address] [place] [address] PCP - [facility] 06/10/23 Kaylie Chavez COFFEE SAMPLER [address] [place] [address] Nurse Practitioner Family Medicine 08/07/22 Lindy Valentino [facility] [address] [place] [address] Behavioral Health 03/18/24 Transport Conductor Relationship Specialty Start Date End Date Kala Lloyd MD [address] [place] [address] PCP - General Family Medicine 08/07/22 Kala Lloyd MD [address] [place] [address] PCP - [facility] 06/10/23 Kaylie Chavez, AKILAH [address] [place] [address] Nurse Practitioner Family Medicine 08/07/22 Lindy Valentino, [facility] [address] [place] [address] Behavioral Health 03/18/24 Transport Conductor Relationship Specialty Start Date End Date Kala Lloyd MD [address] [place] [address] PCP - General Family Medicine 08/07/22 Kala Lloyd MD [address] [place] [address] PCP - [facility] 06/10/23 Kaylie Chavez, COFFEE SAMPLER [address] [place] [address] Nurse Practitioner Family Medicine 08/07/22 Lindy Valentino [facility] [address] [place] [address] Behavioral Health 03/18/24 Transport Conductor Relationship Specialty Start Date End Date Kaylie Chavez APRN-MACHINE FITTER [address] [place] [address] PCP - General Nurse Practitioner 11/20/18 Transport Conductor Relationship Specialty Start Date End Date Kaylie Chavez APRN-MACHINE FITTER [address] [place] [address] PCP - General Nurse Practitioner 11/20/18 Transport Conductor Relationship Specialty Start Date End Date Kaylie Chavez CASHIER MANAGER-MACHINE FITTER [address] [facility] [place] [address] PCP - General Nurse Practitioner 11/20/18 Transport Conductor Relationship Specialty Start Date End Date Kaylie Chavez CASHIER MANAGER-MACHINE FITTER [address] [facility] [place] [address] PCP - General Nurse Practitioner 11/20/18 Transport Conductor Relationship Specialty Start Date End Date Kaylie Chavez CASHIER MANAGER-MACHINE FITTER [address] [facility] [place] [address] PCP - General Nurse Practitioner 11/20/18 Transport Conductor Relationship Specialty Start Date End Date Kaylie Chavez CASHIER MANAGER-MACHINE FITTER [address] [facility] [place] [address] PCP - General Nurse Practitioner 11/20/18 Transport Conductor Relationship Specialty Start Date End Date Kaylie Chavez CASHIER MANAGER-MACHINE FITTER [address] [facility] [place] [address] PCP - General Nurse Practitioner 11/20/18 Transport Conductor Relationship Specialty Start Date End Date Kaylie Chavez, CASHIER MANAGER-MACHINE FITTER [address] [facility] [place] [address] PCP - General Nurse Practitioner 11/20/18 Transport Conductor Relationship Specialty Start Date End Date Kala Lloyd MD [address] [facility] [place] [address] PCP - General Family Medicine 08/07/22 Kala Lloyd MD [address] [place] [address] PCP - [facility] [employer] 06/10/23 Kaylie Chavez, COFFEE SAMPLER [address] [place] [address] Nurse Practitioner Family Medicine 08/07/22 Lindy Valentino [facility] [address] [place] [address] Behavioral Health 03/18/24 Transport Conductor Relationship Specialty Start Date End Date Kala Lloyd MD [address] [place] [address] PCP - General Family Medicine 08/07/22 Kala Lloyd MD [address] [place] [address] PCP - [facility] 06/10/23 Kaylie Chavez NP [address] [place] [address] Nurse Practitioner Family Medicine 08/07/22 Lindy Valentino [facility] [address] [facility] [address] [place] [address] Behavioral Health 03/18/24 Transport Conductor Relationship Specialty Start Date End Date Kala Lloyd MD [address] [place] [address] PCP - General Family Medicine 08/07/22 Kala Lloyd MD [address] [place] [address] PCP - [facility] 06/10/23 Kaylie Chavez NP [address] [place] [address] Nurse Practitioner Family Medicine 08/07/22 Lindy Valentino [facility] [address] [place] [address] Behavioral Health 03/18/24 Transport Conductor Relationship Specialty Start Date End Date Kala Lloyd MD [address] [place] [address] PCP - General Family Medicine 08/07/22 Kala Lloyd MD [address] [place] [address] PCP - [facility] [employer] 06/10/23 Kaylie Chavez NP [address] [place] [address] Nurse Practitioner Family Medicine 08/07/22 Lindy Valentino [facility] [address] [place] [address] Behavioral Health 03/18/24 Transport Conductor Relationship Specialty Start Date End Date Kala Lloyd MD [address] [place] [address] PCP - General Family Medicine 08/07/22 Kala Lloyd MD [address] [place] [address] PCP - [facility] [employer] 06/10/23 Kaylie Chavez NP [address] [place] [address] Nurse Practitioner Family Medicine 08/07/22 Lindy Valentino [facility] [address] [place] [address] Behavioral Health 03/18/24 Transport Conductor Relationship Specialty Start Date End Date Kala Lloyd MD [address] [place] [address] PCP - General Family Medicine 08/07/22 Kala Lloyd MD [address] [place] [address] PCP - [facility] 06/10/23 Kaylie Chavez, COFFEE SAMPLER [address] [place] [address] Nurse Practitioner Family Medicine 08/07/22 Lindy Valentino [facility] [address] [place] [address] Behavioral Health 03/18/24 Transport Conductor Relationship Specialty Start Date End Date Kaylie Chavez APRN-MACHINE FITTER PCP - General Nurse Practitioner 11/20/18 Transport Conductor Relationship Specialty Start Date End Date Kala Lloyd MD [address] [place] [address] PCP - General Family Medicine 08/07/22 Kala Lloyd MD [address] [place] [address] PCP - [facility] 06/10/23 Kaylie Chavez, COFFEE SAMPLER [address] [place] [address] Nurse Practitioner Family Medicine 08/07/22 Lindy Valentino [facility] [address] [place] [address] Behavioral Health 03/18/24 Transport Conductor Relationship Specialty Start Date End Date Kala Lloyd MD [address] [place] [address] PCP - General Family Medicine 08/07/22 Kala Lloyd MD [address] [place] [address] PCP - [facility] 06/10/23 Kaylie Chavez, COFFEE SAMPLER [address] [place] [address] Nurse Practitioner Family Medicine 08/07/22 [facility] [address] [place] [address] Behavioral Health 03/18/24 Transport Conductor Relationship Specialty Start Date End Date Kala Lloyd MD [address] [place] [address] PCP - General Family Medicine 08/07/22 Kala Lloyd MD [address] [place] [address] PCP - [facility] 06/10/23 Kaylie Chavez, COFFEE SAMPLER [address] [place] [address] Nurse Practitioner Family Medicine 08/07/22 Lindy Valentino [facility] [address] [place] [address] Behavioral Health 03/18/24 INFORMATION SOURCE (unrecogn ized section and content) DATE CREATED AUTHOR 03/13/2022 [facility] dical Specialist DATE CREATED AUTHOR AUTHOR'S ORGANIZ ATION 03/22/2022 [facility] DATE CREATED AUTHOR AUTHOR'S ORGANIZ ATION 07/22/2022 [facility] DATE CREATED AUTHOR AUTHOR'S ORGANIZ ATION 10/03/2023 [facility] DATE CREATED AUTHOR AUTHOR'S ORGANIZ ATION 03/03/2024 [facility] DATE CREATED AUTHOR AUTHOR'S ORGANIZ ATION 05/16/2024 [facility] DATE CREATED AUTHOR AUTHOR'S ORGANIZ ATION 06/02/2024 [facility] dical Specialists EPIC Goals (unrecognized section [...] ON THE PRIMARY CLINICAL RECORDS. [facility]. provides no warranty or guarantee of the accuracy or completeness of information in this document.
[2024-06-10 10:36] LABS: Hematocrit 43.7 % (36.0-48.0); Hemoglobin 14.6 g/dL (12.0-16.0); Mean Corpuscular HGB Conc 33.4 g/dL (29.9-35.2); Mean Corpuscular Hemoglobin 30.4 pg (26.7-34.0); Mean Platelet Volume 11.2 fL (9.5-13.5); Platelet Count 263 10^3/uL (150-450); Red Cell Distribution Width 12.9 % (11.0-15.0); White Blood Count 12.8 10^3/uL (4.0-11.0)
[2024-06-10 11:09] LABS: Albumin Level 3.1 g/dL (3.4-5.0); Anion Gap 16.9; BUN Creatinine Ratio 11.9; Calcium 9.4 mg/dL (8.5-10.1); Carbon Dioxide 25.1 mmol/L (21.0-32.0); Chloride 103 mmol/L (98-107); Estimated GFR (African America 58 (>=60 mL/min/1.73m^2); Estimated GFR (Non-African Ame 48 (>=60 mL/min/1.73m^2); Glucose 200 mg/dL (74-106); Magnesium 1.3 mg/dL (1.8-2.4); Phosphorus 3.3 mg/dL (2.6-4.7); Sodium 141 mmol/L (136-145); Uric Acid 4.8 mg/dL (2.6-6.0)
[2024-06-10 11:17] LABS: Bilirubin Urine NEGATIVE (NEGATIVE); Blood Urine SMALL (NEGATIVE); Clarity Urine CLEAR (CLEAR); Color Urine YELLOW (YELLOW); Glucose Urine UA NEGATIVE (NEGATIVE); Ketones Urine NEGATIVE (NEGATIVE); Leukocyte Esterase Urine NEGATIVE (NEGATIVE); Nitrite Urine NEGATIVE (NEGATIVE); Protein Urine >=300 mg/dL (NEG/TRACE); Specific Gravity Urine >=1.030 (1.005-1.025); Urobilinogen Urine 0.2 EU/dL (0.2-1.0)
[2024-06-10 11:32] LABS: Cast Seen? SEEN #/LPF (NONE SEEN); Crystals Seen? None Seen #/HPF (None Seen); Hyaline Casts Urine RARE; Mucus Urine TRACE (NONE SEEN); Squamous Epithelial Cell Urine MODERATE #/LPF (NONE/RARE); WBC Urine 0-2 #/HPF (NONE SEEN)
[2024-06-10 11:33] LABS: Bacteria Urine TRACE #/HPF (NONE SEEN); Urine Culture Indicated NO
[2024-06-10 11:56] LABS: Creatinine Urine Random 356.57 mg/dL (20.00-300.00)
[2024-06-10 12:36] LABS: Protein Creatinine Ratio Urine 2.14; Total Protein Urine Random 762.4 mg/dL (<=11.9)
[2024-06-11 11:10] LABS: PTH, Intact 27 pg/mL (15-65)
== END 2024-06-10 10:18 | disposition home or self-care (01) ==
LOC: LAB 10:19
PROVIDERS: PCP Nurse Practitioner Family; Visit Provider Internal Medicine
DX: E83.42 Hypomagnesemia (principal); E27.8 Other specified disorders of adrenal gland; I12.9 Hypertensive chronic kidney disease with stage 1 through stage 4 chronic kidney disease, or unspecified chronic kidney disease; E11.22 Type 2 diabetes mellitus with diabetic chronic kidney disease; N18.30 Chronic kidney disease, stage 3 unspecified; E83.52 Hypercalcemia
CPT/HCPCS: 36415; 80069; 81001; 82306; 82570; 83735; 83970; 84156; 84550; 85027

== ENCOUNTER 2024-07-08 10:24 | Outpatient (OUT) | payer MEDICAID, SELFPAY ==
[2024-07-08 11:24] LABS: Anion Gap 21.4; BUN Creatinine Ratio 19.4; Calcium 9.6 mg/dL (8.5-10.1); Carbon Dioxide 20.5 mmol/L (21.0-32.0); Chloride 101 mmol/L (98-107); Estimated GFR (African America 50 (>=60 mL/min/1.73m^2); Estimated GFR (Non-African Ame 42 (>=60 mL/min/1.73m^2); Glucose 334 mg/dL (74-106); Potassium 3.9 mmol/L (3.5-5.1); Sodium 139 mmol/L (136-145)
[2024-07-09 15:10] LABS: Cortisol - AM 1.3 ug/dL (6.2-19.4)
== END 2024-07-08 10:25 | disposition home or self-care (01) ==
LOC: LAB 10:24
PROVIDERS: PCP Nurse Practitioner Family; Visit Provider Internal Medicine
DX: E27.9 Disorder of adrenal gland, unspecified (principal)
CPT/HCPCS: 36415; 80048; 82533

== ENCOUNTER 2024-07-09 10:09 | Outpatient (OUT) | payer MEDICAID, SELFPAY ==
[2024-07-16 16:09] LABS: Metanephrine, Pl <25.0 pg/mL (0.0-88.0); Normetanephrine, Pl 31.4 pg/mL (0.0-244.0)
== END 2024-07-09 10:10 | disposition home or self-care (01) ==
LOC: LAB 10:09
PROVIDERS: PCP Nurse Practitioner Family; Visit Provider Internal Medicine
DX: E27.9 Disorder of adrenal gland, unspecified (principal)
CPT/HCPCS: 36415; 83835

== ENCOUNTER 2024-09-04 16:48 | Emergency (ER) | payer MEDICAID, SELFPAY ==
[2024-09-04 17:10] VITALS: BP 190/94; PULSE 112; TEMP 37.1; O2SAT 97; BMI 35.5
--- NOTE | 2024-09-04 17:31 | ED_ITS ---
HPI HPI - General Adult General Chief complaint: Extremity Injury, Lower Stated complaint: HIP PAIN Time Seen by Provider: 09/04/24 17:20 Source: patient Mode of arrival: Wheelchair Limitations: no limitations History of Present Illness HPI narrative: 53-year-old female presents to the emergency department for left hip pain. It started yesterday when her sister fell and she tried to help her up and she twisted her hip. She did not fall. Her lower back does not hurt and she has no weakness or numbness in her leg. The pain is severe. Related Data Previous Rx's ?Medication ?Instructions ?Recorded etodolac 300 mg capsule 300 mg PO Q8H PRN pain #20 c aps 09/04/24 methocarbamol 500 mg tablet 500 mg PO Q8H PRN pain #20 tabs 09/04/24 Allergies Allergy/AdvReac Type Severity Reaction Status Date / Time bee venom protein (honey bee) Allergy Severe Anaphylaxis Verified 09/04/24 17:10 coconut Allergy Severe Rash Verified 09/04/24 17:10 [email or web address] (From [facility]) Allergy Severe Rash Verified 09/04/24 17:10 Latex, Natural Rubber Allergy Severe Hives Verified 09/04/24 17:10 codeine AdvReac Severe Nausea Verified 09/04/24 17:10 Opioid HPI Opioid Management Most Recent Opioid Data: Last Pain Scale 10 Today, 17:49 Last MAR Pain Assessment Today, 17:49 Review of Systems ROS Narrative A ten point review of systems is negative except as noted above. PFSH PFSH Social History Little interest or pleasure in doing things: not at all Feeling down, depressed, or hopeless: not at all Exam Narrative Exam Narrative: Nurses note and vital signs reviewed and patient is not hypoxic. General: The patient is in no acute distress. She seems uncomfortable. Skin: Warm, dry, no pallor noted. There is no rash noted. Head: Normocephalic, atraumatic Eye: Normal conjunctiva, no drainage Ears, Nose, Mouth, and Throat: oral mucosa is moist. Nares patent. Cardiovascular: Regular Rate and Rhythm Respiratory: Patient is in no distress, no accessory muscle use Back: No bruise or rash or palpable tenderness GI: Obese and nontender Musculoskeletal: Left hip is examined. No bruise or rash and her hip has good range of motion. No focal area of tenderness to palpation. Range of motion causes some discomfort. The left knee is nontender and her leg is nonswollen. Neurological: A&O, normal speech Psychiatric: Cooperative Constitutional Vital Signs, click to edit/add: Last Vital Signs Temp 98.8 F 09/04/24 17:10 Pulse 112 H 09/04/24 17:10 Resp 20 09/04/24 17:10 BP 190/94 H 09/04/24 17:10 Pulse Ox 97 09/04/24 17:10 O2 Del Method Room Air 09/04/24 17:10 Course Vital Signs Vital signs: Vital Signs Temperature 98.8 F 09/04/24 17:10 Pulse Rate 112 H 09/04/24 17:10 Respiratory Rate 20 09/04/24 17:10 Blood Pressure 190/94 H 09/04/24 17:10 Pulse Oximetry 97 09/04/24 17:10 Oxygen Delivery Method Room Air 09/04/24 17:10 Temperature 98.8 F 09/04/24 17:10 Pulse Rate 112 H 09/04/24 17:10 Respiratory Rate 09/04/24 17:10 Blood Pressure 190/94 H 09/04/24 17:10 Pulse Oximetry 97 09/04/24 17:10 Oxygen Delivery Method Room Air 09/04/24 17:10 Medical Decision Making MDM Narrative Medical decision making narrative: X-ray shows no acute findings, degenerative changes present. She was given IM Norflex and Toradol and discharged home on Lodine and Robaxin. Treatment diagnosis and follow-up were discussed with the patient. Differential Diagnosis Differential Diagnosis: Muscle strain, tendinitis, fracture Imaging Data Left hip x-ray: Radiologist's impression: ITS Impressions Hip X-Ray 09/04/24 17:49 IMPRESSION: MILD DEGENERATIVE CHANGE. NEGATIVE ACUTE FRACTURE OR ACUTE OSSEOUS ABNORMALITY. Impression dictated by: Efren Mott M.D. 09/04/2024 6:03 PM Dictation Location: [place] [address] Electronically authenticated by: [id number] Y Date: 09/04/2024 18:03 Discharge Plan Discharge Chief Complaint: Extremity Injury, Lower Clinical Impression: Hip pain, left Patient Disposition: Home, Self-Care Time of Disposition Decision: 18:14 Condition: Good Mode of Transportation: Private Vehicle Prescriptions / Home Meds: New methocarbamol 500 mg tablet 500 mg PO Q8H PRN (Reason: pain) Qty: 20 0RF etodolac 300 mg capsule 300 mg PO Q8H PRN (Reason: pain) Qty: 20 0RF Print Language: Austrian Instructions: Hip Pain (ED) Referrals: ALEJANDRA GARCIA [Primary Care Provider, Family Practice] - 1 week
[2024-09-04] MEDS: KETOROLAC TROMETHAMINE 60 MG/2 ML VIAL IM (17:49)
--- NOTE | 2024-09-04 17:49 | XR_ITS ---
[facility] [place] [id number] Patient Name: KEYA LEY MRN: [id number] date: 1970 Sex: F Assigned Patient Location: ER Current Patient Location: ER Accession/Order Number: [id number] Exam Date: 09/04/2024 18:01 Report Date: 09/04/2024 18:03 At the request of: LISSETH GAONA MD Procedure: XR hip LT min 2V LEFT HIP - 2 views: CLINICAL HISTORY: Atraumatic pain COMPARISON: None FINDINGS: Mild degenerative changes. Enthesopathy identified level of the greater trochanter. No fractures. No dislocation. Soft tissues unremarkable.. XR/XR hip LT min 2V IMPRESSION: MILD DEGENERATIVE CHANGE. NEGATIVE ACUTE FRACTURE OR ACUTE OSSEOUS ABNORMALITY. Impression dictated by: Efren Mott M.D. 09/04/2024 6:03 PM Dictation Location: [place] [address] Electronically authenticated by: [id number] Y Date: 09/04/2024 18:03
[2024-09-04] MEDS: ORPHENADRINE 60 MG/2 ML VIAL IM (17:50)
== END 2024-09-04 19:28 | disposition home or self-care (01) ==
PROVIDERS: Emergency Provider Emergency Medicine; PCP Family Medicine
DX: M25.552 Pain in left hip (principal); S73.192A Other sprain of left hip, initial encounter
CPT/HCPCS: 73502; 96372; 99284; J1885; J2360

== ENCOUNTER 2024-12-14 13:04 | Outpatient (OUT) | payer MEDICAID, SELFPAY ==
--- OUTSIDE RECORDS SUMMARY | 2024-12-01 12:00 | XMS_ITS | Encounter Summary ---
Demographics Address [address] [address] Mobile Phone Home Phone Email Address m Preferred Language en Marital Status Unmarried Oriental Orthodox Affiliation Unknown Race White Ethnic Group Not or Lati no Author Organization [facility] Address [address] [place] [address] Care Team Providers Care Hand Mexican Food Maker Name Role Phone Kala Lloyd MD Primary Care Provider [phone] Kaylie Chavez SURGICAL NURSE PRACTITIONER Unavailable Kala Lloyd MD Unavailable Lindy Valentino [facility] Unavailable Laverne Espinal [employer] [employer] [facility] Unavailable [phone] Reason for Visit * Rehabilitation - Outpatient (Routine) - Authorized Specialty Diagnoses / Procedures Referred By Randall bliss Referred To Contact Physical Therapy Diagnoses Piriformis syndrome of left side Procedures ID OFFICE/OUTPATIENT [facility] 60 MINUTES Kala Lloyd MD [address] [place] [address] Phone: tel: fax: Marylou Lay PT Referral ID Status Reason Start Date Expiration Date Visits Requested Visits Authorized [id number] Authorized Specialty Services Required 09/09/2024 03/10/2025 30 30 Encounter Details Date Type Department Care Team (Late st Contact Info) Description 12/01/2024 12:00 PM EDT Treatment [facility] [address] [place] [address] Samuel Wright PTA Piriformis syndrome of left side (Primary Dx) Social History Tobacco Use Types Packs/Day Years Used Date Smoking Tobacco: Every Day Cigarettes 0.3 15 Smokeless Tobacco: Never Comments:Smokes a pack a wee k. 2-3 cigarettes a day. Alcohol Use Standard Drinks/Week Comments Never 0 (1 standard drink = 0.6 oz pure alcohol) caffeine intake: more than 4 cups per day/ 2 pots of coffee. AUDIT-C Answer Date Recorded Q1: How often do you have a drink containing alcohol? Never 05/19/2024 Q2: How many drinks containi ng alcohol do you have on a typical day when you are drinking? Patient does not drink Q3: How often do you have si x or more drinks on one occasion? Never 05/19/2024 PHQ-2 Answer Date Recorded Patient Health Questionnaire-2 Score 0 12/01/2024 Education Answer Date Recorded What is the highest level of school you have completed or the highest degree you have received? 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 Physical Therapy Progress Visit Patient Name: Radha Jones Today's Date: 12/01/2024 Encounter Diagnosis Name Primary? Piriformis syndrome of left side Yes Visit number: 5 Timed Code Treatment Minutes: 40 minutes Total Treatment Time: 45 minutes Time In: 1155 Time Out: 1240 History: Pt to states she has a history of low back pain. Had L4/5 fusion in 2019 or 2020. States she was trying to hold off on surgery but then both of her legs went numb. States prior to surgery and even following she has be having pain in bilateral buttock. Has been seeing pain management and has received multiple injection. Last injection was September 25. States she felt good for a few days; however, her mother almost fell and she had to assist her down. Also states she has to lift her mom frequently from the chair. States currently has numbness in left knee that runs down to her foot, mostly to her big toe. Precautions: [place] Subjective: Pt reported being busy with getting a car running. She reported having to work on it from underneath. There are days that feel better and days that I wonder why am I doing this . No incontinence experienced. Pain: Pt reports 09/17 of LE pain. Objective: PT Evaluation (10/21/2024) LUMBAR SPINE AROM: full flexion without increase pain but pain upon return, extension and left SB limited due toincrease left low back pain; limited right hip IR ROM Strength: right hip 4-/5, quad 4/5, ankle DF 4/5; left hip 3-/5, quad 4-/5, ankle DF 3+ to 4-/5; core strength is fair/poor Palpation: moderate to severe tenderness left piriformis and lower lumbar; mild tenderness right piriformis Special Test: negative slump testing but neuro tension present left LE Neurological: Reflexes: 2 bilateral patellar Myotomes: decrease strength L3 and L4 Dermatomes: decrease L4 Special Test: negative clonus Treatment: Education: HEP education with demonstration, Educated on Eval Findings and POC Manual Therapy: Passive ROM, Joint mobilization, Soft Tissue Mobilization, Myofascial Release, Muscle Energy Technique, Neural Mobilization, Myofascial Cupping, Dry Needling, IASTM, and Scar mobilization as needed. Therapeutic Exercise: (40 minutes) Strength, Endurance, Flexibility, ROM, HEP, Neural Mobilization,Power, and Core Stability as needed. Pt performed and instructed in therex to improve hip strength to support pelvic with good pt understanding. Therapeutic Activity: Exercises to improve dynamic activities, functional tasks, functional mobility to return to prior activity level as needed. Neuromuscular re-education: (0 minutes) Balance Training, Muscle Facilitation, Dynamic Stability, Core Stabilization, and Blood Flow Restriction Training (BFRT) as needed. Instructed Pt through core and hip strength to improve lumbar stabilization. Modalities: Heat, Ice, Electrical Stimulation, Ultrasound, Cervical Mechanical Traction, Lumbar Mechanical Traction, Iontophoresis, and Fluidotherapy as needed. HP x PRN in sitting Assessment: Strength: RIGHT hip 4-/5, quad 4+/5. LEFT hip 3-/5, quad 4+/5, Core strength is fair/poor AROM: Full flexion without increase pain but pain upon return, extension is painful, Sidebending isequal bilaterally, no pain. Pt is 53 y/o female with chronic low back and bilateral buttock pain. Pt with limited trunk extension and left SB due to increase pain. Decrease bilateral LE strength, left weaker than right. Fair topoor core strength. Minimal if any improvements towards LTGs. Compliance to HEP is sparse. Pt will benefit from further PT to improve core and hip strength to support lumbar spine. Barrier to progress is being primary caregiver to mother and performing transfers. Outcome Measure: Lower Extremity Functional Scale (LEFS): 34/80, (12/01/24) 21/80 Rehab Diagnosis: low back pain, left LE pain, decrease ROM and mobility, difficulty walking Short Term Goal: To be met in 2 weeks Goal 1: Pt to be instructed in home exercise program. Turf Keeper Goals: To be met in 10 weeks Goal 1: Pt to report independence and compliance with home program. Goal 2: Pt to report pain no greater than 3/10 with function tasks, ADL's, and work related activities. Goal 3: Pt to have full trunk ROM without complaints of increase pain at end ranges to assist with functional tasks. Progressing Goal 4: Pt to score no less than 50/80 on LEFS indicating improved QOL. Goal 5: Pt to achieve grossly 4+/5 strength bilateral hips and quads to assist with lifting at home. Goal 6: Pt to demonstrate good core/fair core strength for improved lumbar stability. Pt will benefit from skilled PT for 2x/week from 10/21/2024 to 01/13/2025 to address the above impairments. I hereby deem this POC medically necessary. Please sign below. Date: Cosigned by Marylou Lay PT at 12/04/2024 2:24 PM EDT documented in this encounter Plan of Treatment Upcoming Encounters Date Type Department Care Team (Late st Contact Info) Description 12/22/2024 2:00 PM EDT Treatment [facility] [address] [place] [address] JohnClaire saini, [employer] UN[employer]ER 12/28/2024 1:40 PM EDT Office Visit [facility] [address] [place] [address] Danii Manley MD [address] [place] [address] 01/21/2025 3:20 PM EST Office Visit [facility] [address] [place] [phone] Eliazar De Los Santos, SULEMA [address] [facility] [address] [place] [address] 02/02/2025 3:00 PM EST Office Visit [facility] [address] [place] [id number] Kala Lloyd MD [address] [place], [place] [id number] 03/02/2025 1:00 PM EST Office Visit [facility] [address] [place] [phone] Laverne Carolina DO [address] [place] [address] documented as of this encounter Visit Diagnoses Diagnosis Piriformis syndrome of left side- Primary documented in this encounter Additional Health Concerns Assessment Noted Time PHQ-9 Depression Total Score: 22 2 024 3:54 PM EDT documented as of this encounter Care Teams Hand Mexican Food Maker Relationship Specialty Start Date End Date Kala Lloyd MD [address] [place], [place] [id number] PCP - General Family Medicine 08/07/22 Kala Lloyd MD [address] [place] [address] PCP - [facility] 06/10/23 Kaylie Chavez NP [address] [place] [address] Nurse Practitioner Family Medicine 08/07/22 Lindy Valentino, [facility] [address] [facility] [address] [place] [address] Behavioral Health 03/18/24 Laverne Espinal LSW [address] [place], [place] [id number] Independent Trader Family Medicine 09/07/24 documented as of this encounter
--- OUTSIDE RECORDS SUMMARY | 2024-12-01 14:30 | XMS_ITS | Encounter Summary ---
Demographics Address [address] [address] Mobile Phone Home Phone Email Address m Preferred Language en Marital Status Unmarried Baptist Affiliation Unknown Race White Ethnic Group Not or Lati no Author Organization [facility] Address [address] [place] [address] Care Team Providers Care Student Accounts Coordinator Name Role Phone Kala Lloyd MD Primary Care Provider [phone] Kaylie Chavez TANKAGE GRINDER Unavailable Kala Lloyd MD Unavailable Lindy Valentino [facility] Unavailable Laverne Espinal WEB DESIGN INTERN Unavailable [phone] Reason for Visit * Reason Comments Diabetes Encounter Details Date Type Department Care Team (Latest Contact Info) Description 12/01/2024 2:30 PM EDT Office Visit [facility] [address] [facility] 230 [place] [address] Laverne Carolina DO [address] [facility] 230 [place] [address] Type 2 diabetes mellitus with stage 3b chronic kidney disease, with long-term current use of insulin ([facility]) (Primary Dx); Type 2 diabetes mellitus with peripheral neuropathy ([facility]); Type 2 diabetes mellitus with hyperglycemia, with long-term current use of insulin ([facility]); Moderate nonproliferative diabetic retinopathy of both eyes with macular edema associated with type 2 diabetes mellitus ([facility]); Class 2 severe obesity due to excess calories with serious comorbidity and body mass index (BMI) of 35.0 to 35.9 in adult ([facility]) Social History Tobacco Use Types Packs/Day Years [...] Industry 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 Date 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 [employer] Not on file Not on file No t on file documented as of this encounter Last Filed Vital Signs Vital Sign Reading Time Taken Comments Blood Pressure 136/64 12/01/2024 2:28 PM EDT Pulse 87 12/01/2024 2:28 PM EDT Temperature 37.1 C (98.7 F) 12/01/2024 2:28 PM EDT Respiratory Rate - - Oxygen Saturation 97% 12/01/2024 2:28 PM EDT Inhaled Oxygen Concentration - - Weight 93 kg (205 lb) 12/01/2024 2:28 PM EDT Height 162.6 cm (5' 4 ) 12/01/2024 2:28 PM EDT Body Mass Index 35.19 12/01/2024 2:28 PM EDT documented in this encounter Functional Status * Over the past 2 weeks, how often have you been bothered by any of the following problems? Question Answer Date of Assessment Author Little interest or pleasure in doing things Not at all 12/01/2024 2:28 PM EDT Ramila Stern LPN Feeling down, depressed, or hopeless Not at all 12/01/2024 2:28 PM EDT Ramila Stern LPN Patient Health Questionnaire-2 Score 0 12/01/2024 2:28 PM EDT Augustine Stern LPN documented as of this encounter Progress Notes * Laverne Carolina DO - 12/01/2024 9:42 PM EDTAssociated Problem(s): Type 2 diabetes mellitus with peripheral neuropathy (HCC) During the appointment today all pertinent labs, imaging, health maintenance, and glucose readings were reviewed. Encouraged to check blood glucose throughout the day with some fasting and some PP readings. They are to bring their glucose meter/cgm in to all appointments. All of the patients questions, treatment options, and current care plan and goals were discussed. Acopy of this along with pertinent instructions were given to the patient at the end of the appointment. The patient voices understanding of all of this and is to call in between appointments if they have any problems or questions. Radha Jones is struggling to gain control of their diabetes. I am very concerned for diabetesrelated complications. , The patient is wearing their cgm on a daily basis and making decisions in regards to adjusting insulin daily as well for at least the last 60 days , Discussed dietary changesat length. Encouraged to limit simple carbs and focus more on healthy protein/fat with all meals and snacks. They should also avoid any sugary drinks. , Instructed on the importance of taking insulinbefore eating. If it has been more than [...] instructions and Dietary education. Will increase insulin for her meals. She needs to improve her diet and avoid fried/fatty foods inorder to tolerate trulicity better. She needs to work on finding better coping skills. * Laverne Carolina DO - 12/01/2024 2:30 PM EDT Images from the original note were not included. Radha Jones is a 53 y.o. female presents with chief complaint of Diabetes HPI: Diabetes Mellitus Follow-up: Radha Jones is here for follow-up evaluation of diabetes mellitus. Diabetes complications: retinopathy and peripheral neuropathy Hx of diabetes medications tried: ozempic- insurance She has been checking her blood glucose with a Dexcom G7 CGM-LINKED- on a daily basis. Bg running around 180-220 at her baseline and will rise in the afternoon/evening. She eats one main meal around 4:30 pm and then will snack later in the evening around midnight. Last A1c: 9.1 (07/30/24) Last eye exam: 06/23/2024 Current concerns include: Last ov 08/28/2024 PT for back and hips twice a week. She will be having an epidural injection in the near future by Dr Giron She was told she would need to hold Trulicity the week before her back injection She has had 3 deaths in the family in the past 2 months. Admits to being an emotional eater and is snacking on pork rinds, cookies, cakes BG levels: little higher Diet: small portions Drinks: water, coffee with sugar sweetened creamer Exercise: none Hypoglycemia: none Diabetes Associated symptoms include fatigue. Pertinent negatives for diabetes include no chest pain, no polydipsia, no polyphagia and no polyuria. SUBJECTIVE: PROBLEM LIST SOCIAL ALLERGIES: Patient Active Problem List Diagnosis Abnormal metabolic state due to diabetes mellitus (HCC) Abnormality of red blood cells Acquired absence of both cervix and uterus Acquired hallux valgus Acquired spondylolisthesis Acute left-sided low back pain with left-sided sciatica Adrenal nodule (HCC) Seasonal allergic rhinitis Allergic rhinitis due to pollen Allergic rhinitis Chronic bronchitis (HCC) COPD (chronic obstructive pulmonary disease) with chronic bronchitis (HCC) Asymptomatic postprocedural ovarian failure Bipolar affective disorder, currently depressed, moderate (HCC) Carpal tunnel syndrome of right wrist Chronic fatigue Contracture, left ankle Degeneration of intervertebral disc of lumbar region Type 2 diabetes mellitus with stage 3b chronic kidney disease, with long-term current use of insulin (HCC) Esophageal spasm Esophageal stricture Gastroesophageal reflux disease without esophagitis GERD with esophagitis Hammertoe of left foot High cholesterol Hx of total hysterectomy Hyperlipidemia Hypercalcemia Hypertension Lesion of liver Leukocytosis Low vitamin D level Lumbago with sciatica, left side Lumbago with sciatica, right side Displacement of lumbar intervertebral disc without myelopathy Lumbar disc herniation Class 2 severe obesity due to excess calories with serious comorbidity and body mass index (BMI) of35.0 to 35.9 in adult ([facility]) Neuropathy of right radial nerve TEODORA on CPAP Other chronic pain Dysphagia Pharyngoesophageal dysphagia Proteinuria Restless leg syndrome Situational stress Steatohepatitis, non-alcoholic Type 2 diabetes mellitus with peripheral neuropathy (HCC) Vitamin D deficiency Bipolar 1 disorder (HCC) Chronic obstructive pulmonary disease (HCC) Cigarette smoker Familial hypercholesterolemia Moderate nonproliferative diabetic retinopathy of both eyes with macular edema associated with type2 diabetes mellitus (HCC) Spinal stenosis of lumbar region with neurogenic claudication Disorder of sacrum Lumbar spondylosis Chest pain History of lumbar fusion Stage 3 chronic kidney disease ([facility]) Hypertensive chronic kidney disease with stage 1 through stage 4 chronic kidney disease, or unspecified chronic kidney disease Hypomagnesemia Piriformis syndrome of left side Screening for colorectal cancer Trochanteric bursitis of left hip Type 2 diabetes mellitus with hyperglycemia, with long-term current use of insulin ([facility]) Age-related cataract of both eyes Social History Tobacco Use Smoking status: Every [...] Unknown Latex Unknown Dapagliflozin Rash Synopsis SmartLink 12/01/2024 Antidiabetic medications Dulaglutide 0.75 mg Weekly SC (0.75 MG/0.5ML SOAJ) Insulin Aspart 15 units breakfast/lunch, 30 units dinner plus correction 1:30 > 150 mg/dl (max daily 100 units) (100 UNIT/ML SOPN) -Discontinued (Dose adjustm) Insulin Aspart 20 units small meals , 40 units large meals plus correction 1:30 > 150 mg/dl (maxdaily 100 units) (100 UNIT/ML SOPN) Insulin Glargine 35 Units BID SC metFORMIN HCl 1,000 mg BID PO Labs [facility] HEMOGLOBIN A1C/HEMOGLOBIN.TOTAL:MFR:PT:BLD:QN: 10.1 Outpatient prescription Medication marked as long-term The 10-year ASCVD risk score (Raeann SLATER, et al., 2019) is: 18.7% Values used to calculate the score: Age: 53 years Sex: Female Is Non- : No Diabetic: Yes Tobacco smoker: Yes Systolic Blood Pressure: 136 mmHg Is BP treated: Yes HDL Cholesterol: [...] Negative for polydipsia, polyphagia and polyuria. OBJECTIVE: 12/01/2024 2:28 PM 11/12/2024 2:55 PM 09/09/2024 1:00 PM Vitals BMI 35.19 kg/m2 34.84 kg/m2 34.91 kg/m2 Systolic 136 140 Diastolic 64 82 Heart Rate 87 101 Temp 98.7 ??F Resp 18 18 Height (in) 5' 4 5' 4 5' 4 Weight (lb) 205 203 203.4 Visit Report Report Report Report Physical Exam Constitutional: General: She is not in acute distress. Appearance: Normal appearance. She is obese. Cardiovascular: Rate and Rhythm: Normal rate and regular rhythm. Heart sounds: No murmur heard. No friction rub. No gallop. Pulmonary: Breath sounds: Normal breath sounds. No wheezing, rhonchi or rales. Musculoskeletal: General: No swelling. Neurological: Mental Status: She is alert. ASSESSMENT AND PLAN: Problem List Items Addressed This Visit Type 2 diabetes mellitus with stage 3b chronic kidney disease, with long-term current use of insulin (HCC) - Primary Class 2 severe obesity due to excess calories with serious comorbidity and body mass index (BMI) of35.0 to 35.9 in adult ([facility]) Type 2 diabetes mellitus with peripheral neuropathy (HCC) During the appointment today all pertinent labs, imaging, health maintenance, and glucose readings were reviewed. Encouraged to check blood glucose throughout the day with some fasting and some PP readings. They are to bring their glucose meter/cgm in to all appointments. All of the patients questions, treatment options, and current care plan and goals were discussed. Acopy of this along with pertinent instructions were given to the patient at the end of the appointment. The patient voices understanding of all of this and is to call in between appointments if they have any problems or questions. Radha Jones is struggling to gain control of their diabetes. I am very concerned for diabetesrelated complications. , The patient is wearing their cgm on a daily basis and making decisions in regards to adjusting insulin daily as well for at least the last 60 days , Discussed dietary changesat length. Encouraged to limit simple carbs and focus more on healthy protein/fat with all meals and snacks. They should also avoid any sugary drinks. , Instructed on the importance of taking insulinbefore eating. If it has been more than [...] instructions and Dietary education. Will increase insulin for her meals. She needs to improve her diet and avoid fried/fatty foods inorder to tolerate trulicity better. She needs to work on finding better coping skills. Relevant Medications insulin pen needle (BD Pen Needle Tyra 2nd Gen) 32G x 4 mm misc insulin aspart (NovoLOG FlexPen ReliOn) 100 UNIT/ML pen Other Relevant Orders POCT glycosylated hemoglobin (Hb A1C) docked device (Completed) Moderate nonproliferative diabetic retinopathy of both eyes with macular edema associated with type2 diabetes mellitus (HCC) Type 2 diabetes mellitus with hyperglycemia, with long-term current use of insulin ([facility]) Follow up in about 3 months (around 03/02/2025) for Recheck. Patient's Medications New Prescriptions No medications on file Previous Medications ALBUTEROL HFA 90 MCG/ACT INHALER Inhale 2 puffs every 4 (four) hours if needed for wheezing AMILORIDE (MIDAMOR) 5 MG TABLET Take 5 mg by mouth Daily ATORVASTATIN (LIPITOR) 80 MG TABLET Take 1 tablet (80 mg) by mouth Daily BLOOD GLUCOSE MONITORING SUPPL (MagTag) W/DEVICE KIT Fsbs daily CETIRIZINE (ZYRTEC) 10 MG TABLET Take 1 tablet (10 mg) by mouth Daily CHLORPROMAZINE (THORAZINE) 200 MG TABLET Take 600 mg by mouth at bedtime CHOLECALCIFEROL (VITAMIN D-3) 1.25 MG (97095 UT) TABLET Take 50,000 Units by mouth 1 (one) time perweek CONTINUOUS GLUCOSE LEGAL RECORDS MANAGER (DEXCOM G7 LEGAL RECORDS MANAGER) DEVICE 1 Device See administration instructions CONTINUOUS GLUCOSE SENSOR (DEXCOM G7 SENSOR) MIS Inject 1 Device under the skin Every 10 (ten) days CYANOCOBALAMIN (VITAMIN B-12) 100 MCG TABLET Take 100 mcg by mouth Daily DESVENLAFAXINE (PRISTIQ) 100 MG 24 HR TABLET 100 mg 1 (one) time each day at the same time Takes 1 tab DIVALPROEX (DEPAKOTE ER) 500 MG 24 HR TABLET Take by mouth 3 tablets at bedtime DOXEPIN (SINEQUAN) 50 MG CAPSULE Take 50 mg by mouth at bedtime. DULAGLUTIDE (TRULICITY) 0.75 MG/0.5ML SOLUTION AUTO-INJECTOR Inject 0.75 mg under the skin 1 (one) time per week EPINEPHRINE (EPIPEN 2-ARNALDO) 0.3 MG/0.3ML INJECTION SYRINGE Inject 1 Syringe as directed 1 (one) time. ERGOCALCIFEROL (VITAMIN D2) 1.25 MG (85993 UT) CAPSULE Take 1 capsule by mouth once a week ETODOLAC (LODINE) 300 MG CAPSULE Take 300 mg by mouth every 8 (eight) hours EZETIMIBE (ZETIA) 10 MG TABLET Take 1 tablet (10 mg) by mouth Daily FLUTICASONE (FLONASE) 50 MCG/ACT NASAL SPRAY Administer 2 sprays into each nostril Daily GABAPENTIN (NEURONTIN) 800 MG TABLET Take 800 mg by mouth in the morning and 800 mg at noon and 800mg in the evening and 800 mg before bedtime. GLUCOSE BLOOD (Persado VERIO) TEST STRIP Fsbs daily INSULIN GLARGINE (LANTUS SOLOSTAR) 100 UNIT/ML PEN Inject 35 Units under the skin in the morning and 35 Units before bedtime. KETOROLAC (ACULAR) 0.4 % OPHTHALMIC SOLUTION Administer 1 drop into both eyes in the morning and 1 drop in the evening and 1 drop before bedtime. LANCETS (Meritage PharmaUCH DELICA PLUS [id number]) [facility] Fsbs daily LISINOPRIL 20 MG TABLET Take 1 tablet (20 mg) by mouth Daily LORAZEPAM (ATIVAN) 1 MG TABLET Take 1 mg by mouth 3 (three) times a day as needed for anxiety MAGNESIUM-OXIDE 400 (240 MG) MG TABLET Take 1 tablet by mouth once daily METFORMIN (GLUCOPHAGE) 1000 MG TABLET Take 1 tablet (1,000 mg) by mouth in the morning and 1 tablet(1,000 mg) before bedtime. METHOCARBAMOL (ROBAXIN) 500 MG TABLET Take 500 mg by mouth every 8 (eight) hours if needed MONTELUKAST (SINGULAIR) 10 MG TABLET Take 1 tablet (10 mg) by mouth at bedtime PANTOPRAZOLE (PROTONIX) 40 MG EC TABLET Take 1 tablet (40 mg) by mouth every 12 (twelve) hours ROPINIROLE (REQUIP) 0.25 MG TABLET Take 0.25 mg by mouth as needed at bedtime. TIOTROPIUM-OLODATEROL (STIOLTO RESPIMAT) 2.5-2.5 MCG/ACT AEROSOL SOLUTION INHALER Inhale 2 Inhalation Daily Modified Medications Modified Medication Previous Medication INSULIN ASPART (NOVOLOG FLEXPEN RELION) 100 UNIT/ML PEN insulin aspart (NovoLOG FlexPen ReliOn) 100UNIT/ML pen 20 units small meals , 40 units large meals plus correction 1:30 > 150 mg/dl (max daily 100 units) 15 units breakfast/lunch, 30 units dinner plus correction 1:30 > 150 mg/dl (max daily 100 units) INSULIN PEN NEEDLE (BD PEN NEEDLE TYRA 2ND GEN) 32G X 4 MM MISC insulin pen needle (BD Pen Needle Tyra 2nd Gen) 32G x 4 mm misc USE 1 SUBCUTANEOUSLY 4 TIMES DAILY USE 1 SUBCUTANEOUSLY 4 TIMES DAILY Discontinued Medications No medications on file I have reviewed and reconciled the history and medication list with the patient today. documented in this encounter Plan of Treatment Upcoming Encounters Date Type Department Care Team (Late st Contact Info) Description 12/22/2024 2:00 PM EDT Treatment [facility] [address] [facility] [address] [place] [address] Claire Palmer PTA 12/28/2024 1:40 PM EDT Office Visit [facility] [place] [facility] [address] [place] [address] Danii Manley MD [address] [place] [address] 01/21/2025 3:20 PM EST [facility] [address] [facility] [address] [place] [address] Eliazar De Los Santos, DPM [address] [facility] [address] [place] [address] 02/02/2025 3:00 PM EST Office Visit [facility] [address] [place] [phone] Kala Lloyd MD [address] [place], [place] [id number] 03/02/2025 1:00 PM EST Office Visit [facility] [place] [facility] [address] [facility] [address] [place] [address] Laverne Carolina DO [address] [facility] [address] [place] [address] documented as of this encounter Procedures Procedure Name Priority Date/Time Associated Diagnosis Comments POCT GLYCOSYLATED HEMOGLOBIN (HGB A1C) Routine 12/01/2024 2:41 PM EDT Type 2 diabetes mellitus with peripheral neuropathy (HCC) documented in this encounter Results * (ABNORMAL) POCT glycosylated hemoglobin (Hb A1C) docked device (12/01/2024 2:41 PM EDT) Hemoglobin A1C 10.1 Blood Venous blood specimen / Unknown 12/01/2024 2:41 PM EDT Laverne Carolina DO POINT OF CARE TEST ENTER/E DIT ORDERABLES Final Result documented in this encounter Visit Diagnoses Diagnosis Type 2 diabetes mellitus with stage 3b chronic kidney disease, with long-term current use of insulin (HCC)- Primary Type 2 diabetes mellitus with peripheral neuropathy (HCC) Type 2 diabetes mellitus with hyperglycemia, with long-term current use of insulin ([facility]) Moderate nonproliferative diabetic retinopathy of both eyes with macular edema associated with type 2 diabetes mellitus (HCC) Class 2 severe obesity due to excess calories with serious comorbidity and body mass index (BMI) of 35.0 to 35.9 in adult documented in this encounter Additional Health Concerns Assessment Noted Time PHQ-9 Depression Total Score: 22 024 3:54 PM EDT documented as of this encounter Care Teams Student Accounts Coordinator Relationship Specialty Start Date End Date Kala Lloyd MD [address] [place] [address] PCP - General Family Medicine 08/07/22 Kala Lloyd MD [address] [place] [address] PCP - LIANA Chaparro [facility] 06/10/23 Kaylie Chavez, TANKAGE GRINDER [address] [place] [address] Nurse Practitioner Family Medicine 08/07/22 Lindy Valentino, [facility] [address] [facility] [address] [place] [address] Behavioral Health 03/18/24 Laverne Espinal LSW [address] [place] [address] Bridal Service Sales And Management Family Medicine 09/07/24 documented as of this encounter
--- OUTSIDE RECORDS SUMMARY | 2024-12-09 14:30 | XMS_ITS | Encounter Summary ---
Demographics Address [address] [address] Mobile Phone Home Phone Email Address m Preferred Language en Marital Status Unmarried Denominational Affiliation Unknown Race White Ethnic Group Not or Lati no Author Organization [facility] Address [address] [place] [address] Care Team Providers Care Tube Blower Name Role Phone Kala Lloyd MD Primary Care Provider [phone] Kaylie Chavez PAYROLL ACCOUNTING MANAGER Unavailable Kala Lloyd MD Unavailable Lindy Valentino [facility] Unavailable [phone] Laverne Espinal QUALITY REVIEWER Unavailable [phone] Reason for Visit * Rehabilitation - Outpatient (Routine) - Authorized Specialty Diagnoses / Procedures Referred By Randall bliss Referred To Contact Physical Therapy Diagnoses Piriformis syndrome of left side Procedures [facility] OFFICE/OUTPATIENT [facility] 60 MINUTES Kala Lloyd MD [address] [place] [address] Phone: tel: fax: Marylou Lay PT Referral ID Status Reason Start Date Expiration Date Visits Requested Visits Authorized [id number] Authorized Specialty Services Required 09/09/2024 03/10/2025 30 30 Encounter Details Date Type Department Care Team (Late st Contact Info) Description 12/09/2024 2:30 PM EDT Treatment [facility] [address] [place] [address] Samuel Wright PTA Piriformis syndrome [...] Industry 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 Date 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 [employer] Not on file Not on file No t on file documented as of this encounter Plan of Treatment Upcoming Encounters Date Type Department Care Team (Late st Contact Info) Description 12/22/2024 2:00 PM EDT Treatment [facility] [address] [place] [address] [place] [address] Claire Palmer, TETRYL BLENDER OPERATOR 12/28/2024 1:40 PM EDT Office Visit [facility] [place] [facility] [address] [place] [address] Danii [place] MD [address] [place] [address] 01/21/2025 3:20 PM EST Office Visit [facility] [address] [place] [phone] Eliazar De Los Santos DPM [address] [facility] [address] [place] [address] 02/02/2025 3:00 PM EST [facility] [address] [facility] [place] [phone] Kala Lloyd MD [address] [facility] [place] [address] 03/02/2025 1:00 PM EST Office Visit [facility] [address] [place] [address] [place] [address] Lvaerne [place] DO [address] [place] [address] documented as of this encounter Visit Diagnoses Diagnosis Piriformis syndrome of left side- Primary documented in this encounter Additional Health Concerns Assessment Noted Time PHQ-9 Depression Total Score: 22 024 3:54 PM EDT documented as of this encounter Care Teams Tube Blower Relationship Specialty Start Date End Date Kala Lloyd MD [address] [facility] [place] [address] PCP - General Family Medicine 08/07/22 Kala Lloyd MD [address] [place] [address] PCP - LIANA Chaparro BOTTOM FINISHER 06/10/23 Kaylie Chavez, PAYROLL ACCOUNTING MANAGER [address] [place] [address] Nurse Practitioner Family Medicine 08/07/22 Lindy Valentino [facility] [address] [place] [address] Behavioral Health 03/18/24 Laverne Espinal LSW [address] [place] [address] Heavy Coil Winder Family Medicine 09/07/24 documented as of this encounter
--- OUTSIDE RECORDS SUMMARY | 2024-12-11 08:10 | XMS_ITS | Encounter Summary ---
Author Organization [employer] tem Address [id number] [address] [place] [address] Care Team Providers Care Ap Processor Name Role Phone Laverne Carolina DO Primary Care Provider [phone]- [phone] Reason for Referral * Diagnostic Imaging (Routine) - Pending Review Specialty Diagnoses / Procedures Referred By Contac t Referred To Contact Diagnoses Spinal stenosis of lumbar region with neurogenic claudication Procedures Fluoroscopy less than one hour Reymundo Giron MD [address] [place] [address] Phone: tel: fax: Referral ID Status Reason Start Date Expiration Date V isits Requested Visits Authorized [id number] Pending Review 12/07/2024 12/07/2025 1 1 Reason for Visit * Auth/Cert Specialty Diagnoses / Procedures Referred By Contac t Referred To Contact Diagnoses Spinal stenosis of lumbar region with neurogenic claudication Spinal stenosis of lumbar region with neurogenic claudication [M48.062] Procedures WA NJX DX/THER SBST INTRLMNR LMBR/SAC W/IMG GDN INJECTION BLOCK EPIDURAL CAUDAL STEROID Reymundo Giron MD [address] [place] [address] Phone: tel: fax: Referral ID Status Reason Start Date Expiration Date Visits Re quested Visits Authorized [id number] 1 1 Encounter Details Date Type Department Care Team (Latest Contact Info) Description 12/11/2024 8:10 AM EDT - 12/11/2024 8:28 AM EDT Hospital Encounter [facility] - Radiology [address] [facility] [address] Reymundo Giron MD [address] [place], [place] [id number] Spinal stenosis of lumbar region with neurogenic claudication Discharge Disposition: Home Social History Tobacco Use Types Packs/Day Years Used Date Smoking Tobacco: Every Day Cigarettes 1 18 Smokeless Tobacco: Never Comments:One pack per week Alcohol Use Standard Drinks/Week Comments Never 0 (1 standard drink = 0.6 oz pur e alcohol) AUDIT-C Answer Date Recorded Frequency of Alcohol Consumption Never 12/31/2018 Average Number of Drinks Not on file 019 Frequency of Binge Drinking Not on file 12/10 Childcare Answer Date Recorded Childcare Unknown 08/20/2018 Employment Answer Date Recorded Employment Unknown 08/20/2018 Hunger Screening Answer Date Recorded Within the past 12 months we worried whether our food would run out before we got money to buy more. Never True 11/17/2024 Within the past 12 months th e food we bought just didn't last and we didn't have money to get more. Never True 11/17/2024 Purpose - Life Answer Date Recorded Purpose and direction in life Unknown Comments No Sex and Gender Information Value Date Recorded Sex Assigned at Female 01/22/2023 1:17 PM EST Legal Sex Female 11:44 AM EDT Gender Identity Female 01/22/2023 1:17 PM EST Sexual Orientation Choose not to disclose 2022 1:17 PM EST documented as of this encounter Medications at Time of Discharge albuterol (PROVENTIL HFA;VENTOLIN HFA) 90 mcg/actuation inhaler Inhale 2 puffs every 6 (six) hours as needed for wheezing. aMILoride (MIDAMOR) 5 mg tablet Take 1 tablet (5 mg total) by mouth in the morning. atorvastatin (LIPITOR) 40 mg tablet Take 2 tablets (80 mg total) by mouth in the morning. blood-glucose sensor (DEXCOM G6 SENSOR) device by miscellaneous route. cetirizine (ZyrTEC) 10 mg tablet Take 1 tablet (10 mg total) by mouth in the morning. chlorproMAZINE (THORAZINE) 200 mg tablet Take 1 [...] 1 capsule (50 mg total) by mouth in the morning and 1 capsule (50 mg total) at noon and 1 capsule (50 mg total) before bedtime. doxycycline (ADOXA) 100 MG tablet Take 1 tablet (100 mg total) by mouth in the morning. 12/08/2024 EPINEPHrine (ADRENALIN) 1 mg/mL injection Inject into [...] 100 unit/mL injection Inject under the skin in the morning and at noon and in the evening. Inject before meals. Sliding scale . insulin glargine (LANTUS, BASAGLAR) 100 unit/mL (3 mL) insulin pen Inject 40 Units under the skin in the morning and 40 Units before bedtime. lisinopril (PRINIVIL,ZESTRI L) 20 mg tablet Take 1 tablet (20 mg total) by mouth in the morning. LORazepam (ATIVAN) 0.5 mg tablet Take 2 tablets (1 mg total) by mouth every 6 (six) hours as needed for anxiety. 0.5-1 mg daily 2 tablets at HS LORazepam (ATIVAN) 1 mg tablet Take 1 [...] tablet (0.25 mg total) by mouth nightly. tiotropium-oloda teroL (STIOLTO RESPIMAT) 2.5-2.5 mcg/actuation mist Inhale 2 puffs in the morning. tiZANidine (ZANAFLEX) 4 mg tablet Take 1 tablet (4 mg total) by mouth 2 (two) times a day as needed for muscle spasms. 60 tablet 1 02/27/2023 TRULICITY 0.75 mg/0.5 mL pen injector Inject 0.5 mL (0.75 mg total) under the skin once a week. INJECT 0.75 MG UNDER THE SKIN 1 (ONE) TIME PER WEEK 08/28/2024 6 predniSONE (DELTASONE) 20 mg tablet Take 1 tablet (20 mg total) by mouth in the morning. 12/08/2024 5 documented as of this encounter Plan of Treatment Upcoming Encounters Date Type Department Care Team (Late st Contact Info) Description 01/05/2025 1:15 PM EDT Office Visit [facility] Management [facility] [address] [place] [address] Ricky Miles PA [address] [place] [address] Scheduled Procedures Name Priority Associated Diagnoses Date/Ti me INJECTION BLOCK SACROILIAC JOINT Disorder of sacrum documented as of this encounter Procedures Procedure Name Priority Date/Time Associated Diagnosis Comments FL FLUOROSCOPY UP TO 1 HOUR Routine 12/11/2024 9:10 AM EDT Spinal stenosis of lumbar region with neurogenic claudication documented in this encounter Results * Fluoroscopy less than one hour (12/11/2024 9:10 AM EDT) Narrative SYSTEMGENERATED, DOCUMENTATION - 12/11/2024 9:10 AM EDT No Reading Required. This procedure does not require a formal dictation. Non-Radiologist provider performed procedures can be reviewed under Post-Op, Procedure or Progress notes. For full report details, please reach out to your physician. Effective 07/26/2020 this image will be visible to you in [facility] Reymundo Giron MD IMG FLUOROSCOPY ORDERABLES Fi nal Result documented in this encounter Visit Diagnoses Diagnosis Spinal stenosis of lumbar region with neurogenic claudication documented in this encounter Care Teams Ap Processor Relationship Specialty Start Date End Date Laverne Carolina DO [address] [place] [address] PCP - General Family Medicine 11/17/24 documented as of this encounter
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
--- OUTSIDE RECORDS SUMMARY | 2024-12-11 09:05 | XMS_ITS | Encounter Summary ---
[facility] Address [id number] [address] [place] [address] Care Team Providers Care Lead Dental Assistant Name Role Phone Laverne Carolina DO Primary Care Provider [phone] Reason for Visit * Auth/Cert Specialty Diagnoses / Procedures Referred By Contac t Referred To Contact Diagnoses Spinal stenosis of lumbar region with neurogenic claudication Spinal stenosis of lumbar region with neurogenic claudication [M48.062] Procedures RI NJX DX/THER SBST INTRLMNR LMBR/SAC W/IMG GDN INJECTION BLOCK EPIDURAL CAUDAL STEROID Reymundo Giron MD [address] [place] [address] Phone: tel: fax: Referral ID Status Reason Start Date Expiration Date Visits Re quested Visits Authorized [id number] 1 1 Encounter Details Date Type Department Care Team (Late st Contact Info) Description 12/11/2024 9:05 AM EDT Anesthesia Event [facility] - [facility] Procedures [address] [place] [id number] Jude Stoddard, DO [address] [place] [address] Brooks De Oliveira, PROGRAMMING DEVELOPMENT PROJECT MANAGER-PROMOTIONAL DEMONSTRATOR [address] [place] [address] Anesthesia Record Procedure Summary Procedure Name Responsible Anesthesiologist Anesthesia Start Time Anesthesia Stop Time INJECTION BLOCK EPIDURAL CAUDAL STEROID Jude Stoddard, DO 12/11/24 0905 12/11/24 0911 Events Date Time Event Comment 12/11/2024 0859 0859 Quick Note Positioning Pat ient in room, assisted with positioning to prone. See nursing flow sheet for IVF totals. Assessment: 3 lead EKG, NC O2 @ 4L/min with +ETCO2. No EBL or UO measured. PQRS: No antibiotic ordered, no active warming considered, no central line inserted. 09 An Start 0905 An Start Data 09 An Induction The patient was reevaluated immediately before moderate or deep sedation use and before anesthesia induction. 904 Patient Ready for Surgeon 09 Position 09 an stop data 09 Transport/Transfer From the OR 910 Handoff to RN Transported to :Phase II, Spontaneous Ventilation, O2 per Room Air, 0 LPM Pt. Tolerated procedure well, vital signs stable and document on nursing record Care transferred to receiving RN 09 An Stop Meds Name Total propofol (DIPRIVAN) injection 100 mg sodium chloride 0.9 % infusion 0 mL * Agents No agents on file. * Blood No blood administrations on file. Lines, Drains, and Airways Type Details Placement Removal Wound 02/15/23; 1034; Inci paul; Back; Bilateral; cotton ball and paper tape 02/15/23 1034 by Denisha Juan RN Wound 05/17/23; 0818; Inci paul; Back; Bilateral; BANDAGE ADH LF 4X2IN NADH STRP CRD FLX-FBRC STRL DISP RPL [id number] (x2) 05/17/23 0818 by Louise Hale RN Wound 08/09/23; 1204; Inci paul; Back; Right 08/09/23 1204 by Jing Escoto RN Wound 09/27/23; 0723; Inci paul; Back; Left 09/27/23 0723 by Lorena Lindo RN Peripheral IV Placement Date: 06/02; Placement Time: 0850; Catheter Size: 22 G; Orientation: Posterior, Right; Location: Hand; Site Prep: Chlorhexadine; Inserted by: Madison Krishnan RN; Insertion Attempts: 1; Patient Tolerance: Tolerated well; Removal Date: 12/11/24; Removal Time: 91412/11/24 0850 by Chantel Tomlinson RN 12/11/24 0915 by Lorena Lindo, RN documented in this encounter Social History Tobacco Use Types Packs/Day Years [...] PM EST documented as of this encounter OR Notes * Anesthesia Postprocedure Evaluation - Brooks De Oliveira APRN-PROMOTIONAL DEMONSTRATOR - 12/11/2024 9:27 AM EDT ANESTHESIA POST-EVALUATION [facility] Procedure Summary Date: 12/11/24 Room / Location: [facility] / [facility] Anesthesia Start: 904 Anesthesia Stop: 910 Procedure: INJECTION BLOCK EPIDURAL CAUDAL STEROID Diagnosis: Spinal stenosis of lumbar region with neurogenic claudication (Spinal stenosis of lumbar region with neurogenic claudication [M48.062]) Surgeons: Reymundo Giron MD Responsible Provider: Jude Stoddard DO Anesthesia Type: MAC ASA Status: 3 Vitals: 12/11/24 0916 BP: 127/87 Pulse: 79 Resp: 18 Temp: SpO2: 98% Patient Evaluated: Phase II Patient Participation: Complete - patient participated Patient Level of Consciousness: Awake and Sedated Pain scale: See Notes. Pain Management: Satisfactory to patient (see notes) Airway Patency: Patent Anesthetic Complications: No Cardiovascular Status: Hemodynamically Stable Respiratory Status: Stable/Baseline and Room Air Post-op Hydration: Euvolemic Final Anesthesia Type: MAC Does patient meet criteria to D/C from PACU?: Yes Post Evaluation Comments: See nursing procedural pain assessment No notable events documented. * Anesthesia Postprocedure Evaluation - Jude Stoddard DO - 12/11/2024 9:17 AM EDT ANESTHESIA POST-EVALUATION [facility] Procedure Summary Date: 12/11/24 Room / Location: [facility] PROC [facility]OM / [facility] Anesthesia Start: 904 Anesthesia Stop: 910 Procedure: INJECTION BLOCK EPIDURAL CAUDAL STEROID Diagnosis: Spinal stenosis of lumbar region with neurogenic claudication (Spinal stenosis of lumbar region with neurogenic claudication [M48.062]) Surgeons: Reymundo Giron MD Responsible Provider: Jude Stoddard DO Anesthesia Type: MAC ASA Status: 3 Vitals: 12/11/24 0916 BP: 127/87 Pulse: 79 Resp: 18 Temp: SpO2: 98% Patient Evaluated: Phase II Patient Participation: Complete - patient participated Patient Level of Consciousness: Awake and Alert Pain Score: 2 Pain Management: Adequate Airway Patency: Patent Anesthetic Complications: No Cardiovascular Status: Hemodynamically Stable Respiratory Status: Stable/Baseline Post-op Hydration: Euvolemic Final Anesthesia Type: MAC No notable events documented. * Anesthesia Preprocedure Evaluation - YA Addison - 12/11/2024 8:50 AM EDT Images from the original note were not included. ANESTHESIA PRE-PROCEDURE EVALUATION [facility] Procedure(s): INJECTION BLOCK EPIDURAL CAUDAL STEROID ANESTHESIA PHYSICAL EXAM Patient summary reviewed and nursing notes reviewed. stress test reviewed Airway Mallampati: I TM distance: >3 FB Neck ROM: Full Patient is not intubated Patient does not have tracheostomy Mouth Opening:>= 4 cm Comment: Pt. Asked to remove tongue piercing and complied. Dental : exam normal Pulmonary (+) decreased breath sounds Comment: COPD and Chronic Bronchitis. Has maintenance and rescue inhalers. Instructed to bring rescue in haler with her on procedure days and to use in preop area. Pt. Acknowledges. Current smoker Cardiovascular : exam normal Exercise tolerance: <4 METS ([place]) ECG reviewed Neuro Abdominal (+) obesity Comment: Chronic liver and kidney disease. Has lab work monitored every 6 months. Other Findings ANESTHESIA PLAN ASA 3 Anesthesia Type: MAC Induction: Intravenous Anesthetic risks, plan and alternatives discussed with Patient. Plan discussed with Attending and PROMOTIONAL DEMONSTRATOR. Airway Management: Nasal Cannula Transfer to Phase II PONV: Low Risk Total Score: 1 Female patient Criteria that do not apply: Non-smoker History of PONV and/or Motion Sickness Intended opioid administration RCRI: Low Risk: Score of 0 = 3.9% (2.8-5.4%) Risk of major cardiac event Score of 1 = 6.0% (4.9-7.4%) Risk of major cardiac event Total Score: 0 Criteria that do not apply: Cerebrovascular Disease Ischemic Heart Disease Congestive Heart Failure Elevated Risk Surgery Pre-operative Treatment with Insulin Pre-operative Creatinine >2 mg/dL / 176.8 mol/L Patient Active Problem List Diagnosis Primary hypertension Familial hypercholesterolemia Type 2 diabetes mellitus, with long-term current use of insulin ([facility]) WICK (nonalcoholic steatohepatitis) Disorder of sacrum Spinal stenosis of lumbar region with neurogenic claudication Lumbar spondylosis Chest pain Trochanteric bursitis of left hip documented in this encounter Miscellaneous Notes * Addendum Note - YA Addison - 12/11/2024 9:27 AM EDT Addendum created 12/11/24926 by YA Addison Clinical Note Signed documented in this encounter Plan of Treatment Upcoming Encounters Date Type Department Care Team (Late st Contact Info) Description 01/05/2025 1:15 PM EDT Office Visit [facility] [address] [place] [phone] Ricky Miles PA [address] [place] [address] Scheduled Procedures Name Priority Associated Diagnoses Date/Ti me INJECTION BLOCK SACROILIAC JOINT Disorder of sacrum documented as of this encounter Visit Diagnoses Not on filedocumented in this encounter Administered Medications Inactive Administered Medications - up to 3 most recent administrations Medication Order MAR Action Action Date Dose Rate Site propofoL (DIPRIVAN) infusion intravenous, As needed, Starting on Sat12/11/24 at 0906, Anesthesia Intra-op Given 12/11/2024 9:08 AM EDT 50 mg Given 12/11/2024 9:06 AM EDT 50 mg sodium chloride 0.9 % infusion 15 mL/hr, intravenous, Continuous, Starting on Sat12/11/24 at 0830, Pre-op Continued by Anesthesia 12/11/2024 9:05 AM EDT 15 mL/hr New Bag 12/11/2024 8:50 AM EDT 15 mL/hr 15 mL/hr documented in this encounter Care Teams Lead Dental Assistant Relationship Specialty Start Date End Date Laverne Carolina DO [address] [facility] [address] [place] [address] PCP - General Family Medicine 11/17/24 documented as of this encounter
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
--- OUTSIDE RECORDS SUMMARY | 2024-12-14 13:08 | XMS_ITS | Encounter Summary ---
Demographics Address [address] [facility] [address] [place] [address] Mobile Phone Home Phone Email Address m Preferred Language en Marital Status Unmarried Denominational Affiliation Unknown Race White Ethnic Group Not or Lati no Author Organization [facility] Address [address] [place] [address] Care Team Providers Care Director Of Product Development Name Role Phone Kala Lloyd MD Primary Care Provider [phone] Kaylie Chavez CONSTRUCTION RECRUITER Unavailable Kala Lloyd MD Unavailable Lindy Valentino 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 on file Not on file No t on file documented as of this encounter Plan of Treatment Upcoming Encounters Date Type Department Care Team (Late st Contact Info) Description 12/22/2024 2:00 PM EDT Treatment [facility] [address] [place] [address] Claire Palmer, DANITA 12/28/2024 1:40 PM EDT Office Visit [facility] [address] [place] [address] Danii Manley MD [address] [place] [address] 01/21/2025 3:20 PM EST Office Visit [facility] [address] [place] [phone] Eliazar De Los Santos, DPM [address] [facility] [address] [place] [address] 02/02/2025 3:00 PM EST Office Visit [facility] [address] [place] [address] Kala Lloyd MD [address] [place], [place] [phone] 03/02/2025 1:00 PM EST Office Visit [facility] [address] [place] [address] Laverne Carolina, DO [address] [place] [address] documented as of this encounter Visit Diagnoses Not on filedocumented in this encounter Additional Health Concerns Assessment Noted Time PHQ-9 Depression Total Score: 22 024 3:54 PM EDT documented as of this encounter Care Teams Director Of Product Development Relationship Specialty Start Date End Date Kala Lloyd MD [address] [place] [address] PCP - General Family Medicine 08/07/22 Kala Lloyd MD [address] [place] [address] PCP - LIANA Chaparro TRACTOR DRIVER TEAMSTER 06/10/23 Kaylie Chavez NP [address] [place] [address] Nurse Practitioner Family Medicine 08/07/22 Lindy Valentino [facility] [address] [facility] [address] [place] [address] Behavioral Health 03/18/24 Laverne Espinal LSW [address] [place] [address] Facility Designer Family Medicine 09/07/24 documented as of this encounter
--- OUTSIDE RECORDS SUMMARY | 2024-12-14 13:08 | XMS_ITS | Encounter Summary ---
Demographics Address [address] [address] Mobile Phone Home Phone Email Address m Preferred Language en Marital Status Unmarried Mu-Ism Affiliation Unknown Race White Ethnic Group Not or Lati no Author Organization [facility] Address [address] [place] [address] Care Team Providers Care Sporting Goods Sales Associate Name Role Phone Kala Lloyd MD Primary Care Provider [phone] Kaylie Chavez DISK AND TAPE MACHINE TENDER Unavailable Kala Lloyd MD Unavailable Lindy Valentnio [facility] Unavailable Laverne Espinal [facility] Unavailable [phone] Encounter Details Date Type Department Care Team (Late st Contact Info) Description 05/15/2023 Abstract [facility] [address] [place] [address] Kaylie Chavez DISK AND TAPE MACHINE TENDER Social History Tobacco Use Types Packs/Day Years Used Date Smoking Tobacco: Every Day Cigarettes 0.3 15 Comments:Smokes a pack a wee k. 2-3 cigarettes a day. Alcohol Use Standard Drinks/Week Comments Never 0 (1 standard drink = 0.6 oz pure alcohol) caffeine intake: more than 4 cups per day/ 2 pots of coffee. AUDIT-C Answer Date Recorded Q1: How often do you have a drink containing alcohol? Never 08/07/2022 Q2: How many drinks containi ng alcohol do you have on a typical day when you are drinking? Patient does not drink Q3: How often do you have si x or more drinks on one occasion? 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 Not on file No t on file documented as of this encounter Plan of Treatment Upcoming Encounters Date Type Department Care Team (Late st Contact Info) Description 12/22/2024 2:00 PM EDT Treatment [facility] [address] [place] [address] Claire Palmer, BENDER MACHINE OPERATOR 12/28/2024 1:40 PM EDT Office Visit [facility] [address] [place] [address] Danii Manley MD [address] [place] [address] 01/21/2025 3:20 PM EST Office Visit [facility] [address] [place] [phone] Eliazar De Los Santos, DPM [address] [facility] [address] [place] [address] 02/02/2025 3:00 PM EST Office Visit [facility] [address] [place] [phone] Kala Lloyd MD [address] [place] [address] 03/02/2025 1:00 PM EST Office Visit [facility] [address] [place] [address] Laverne Carolina, DO [address] [place] [address] documented as of this encounter Visit Diagnoses Not on filedocumented in this encounter Additional Health Concerns Assessment Noted Time PHQ-9 Depression Total Score: 26 023 4:10 PM EDT documented as of this encounter Care Teams Sporting Goods Sales Associate Relationship Specialty Start Date End Date Kala Lloyd MD [address] [place] [address] PCP - General Family Medicine 08/07/22 Kala Lloyd MD [address] [place] [address] PCP - LIANA Chaparro LOW ALTITUDE AIR DEFENSE GUNNER 06/10/23 Kaylie Chavez NP [address] [place] [address] Nurse Practitioner Family Medicine 08/07/22 Lindy Valentino [facility] [address] [facility] [address] [place] [address] Behavioral Health 03/18/24 Laverne Espinal LSW [address] [place] [address] Hand Carver Family Medicine 09/07/24 documented as of this encounter
--- OUTSIDE RECORDS SUMMARY | 2024-12-14 13:08 | XMS_ITS | Encounter Summary ---
Demographics Address [address] [address] Mobile Phone Home Phone Email Address m Preferred Language en Marital Status Unmarried Sabianism Affiliation Unknown Race White Ethnic Group Not or Lati no Author Organization [facility] Address [address] [place] [address] Care Team Providers Care Cbx Operator Name Role Phone Kala Lolyd MD Primary Care Provider [phone] Kaylie Chavez ENGINEERING DEPARTMENT CHAIR Unavailable Kala Lloyd MD Unavailable Lindy Valentino [facility] Unavailable Laverne Espinal AGRICULTURAL TECHNICIAN Unavailable [phone] Encounter Details Date Type Department Care Team (Latest Contact Info) Description 12/09/2024 Travel Social History Tobacco Use Types Packs/Day Years [...] Industry 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 Date 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 Not on file No t on file documented as of this encounter Plan of Treatment Upcoming Encounters Date Type Department Care Team (Late st Contact Info) Description 12/22/2024 2:00 PM EDT Treatment [facility] [address] [place] [address] Spencer Claire, STORE LEADER 12/28/2024 1:40 PM EDT Office Visit [facility] [address] [place] [address] Danii Manley MD [address] [place] [address] 01/21/2025 3:20 PM EST Office Visit [facility] [address] [place] [phone] Eliazar De Los Santos DPM [address] [facility] [address] [place] [address] 02/02/2025 3:00 PM EST Office Visit [facility] [address] [place] [phone] Kala Lloyd MD [address] [place] [address] 03/02/2025 1:00 PM EST Office Visit [facility] [address] [facility] [address] [place] [address] Laverne Carolina DO [address] [facility] [address] [place] [address] documented as of this encounter Visit Diagnoses Not on filedocumented in this encounter Additional Health Concerns Assessment Noted Time PHQ-9 Depression Total Score: 22 024 3:54 PM EDT documented as of this encounter Care Teams Cbx Operator Relationship Specialty Start Date End Date Kala Lloyd MD [address] [place] [address] PCP - General Family Medicine 08/07/22 Kala Lloyd MD [address] [place] [address] PCP - [facility] Krysta CATTLE DEHORNER 06/10/23 Kaylie Chavez NP [address] [place] [address] Nurse Practitioner Family Medicine 08/07/22 Lindy Valentino [facility] [address] [place] [address] Behavioral Health 03/18/24 Laverne Espinal LSW [address] [place] [address] [place] Paver Operator Family Medicine 09/07/24 documented as of this encounter
--- OUTSIDE RECORDS SUMMARY | 2024-12-14 13:08 | XMS_ITS | Encounter Summary ---
Demographics Address [address] [address] Mobile Phone Home Phone Email Address m Preferred Language en Marital Status Unmarried Methodist Affiliation Unknown Race White Ethnic Group Not or Lati no Author Organization [facility] Address [address] [place] [address] Care Team Providers Care Sourcing Assistant Name Role Phone Kala Lloyd MD Primary Care Provider [phone] Kaylie Chavez ENTERPRISE INTEGRATION ARCHITECT Unavailable Kala Lloyd MD Unavailable Lindy Valentino [facility] Unavailable Laverne Espinal PRODUCTION MACHINE TENDER Unavailable [phone] Encounter Details Date Type Department Care Team (Latest Contact Info) Description 12/01/2024 Travel Social History Tobacco Use Types Packs/Day [...] Industry 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 [employer] Not on file Not on file No t on file documented as of this encounter Functional Status * Over the [...] Stern LPN documented as of this encounter Plan of Treatment Upcoming Encounters Date Type Department Care Team (Late st Contact Info) Description 12/22/2024 2:00 PM EDT Treatment [facility] [address] [place] [address] Claire Palmer, SOCIAL SCIENCE INSTRUCTOR 12/28/2024 1:40 PM EDT Office Visit [facility] [address] [place] [address] Danii Manley MD [address] [place] [address] 01/21/2025 3:20 PM EST Office Visit [facility] [address] [place] [phone] Eliazar De Los Santos DPM [address] [facility] [address] [place] [address] 02/02/2025 3:00 PM EST Office Visit [facility] [address] [facility] [place] [phone] Kala Lloyd MD [address] [place] [address] 03/02/2025 1:00 PM EST [facility] [address] [place] [address] Laverne Carolina DO [address] [place] [address] documented as of this encounter Visit Diagnoses Not on filedocumented in this encounter Additional Health Concerns Assessment Noted Time PHQ-9 Depression Total Score: 024 3:54 PM EDT documented as of this encounter Care Teams Sourcing Assistant Relationship Specialty Start Date End Date Kala Lloyd MD [address] [place] [address] PCP - General Family Medicine 08/07/22 Kala Lloyd MD [address] [place] [address] PCP - [facility] Krysta LINER WORKER 06/10/23 Kaylie Chavez, AKILAH [address] [place] [address] Nurse Practitioner Family Medicine 08/07/22 Lindy Valentino, [facility] [address] [facility] [address] [place] [address] Behavioral Health 03/18/24 Laverne Espinal LSW [address] [place] [address] Electric Switch Tester Family Medicine 09/07/24 documented as of this encounter
--- OUTSIDE RECORDS SUMMARY | 2024-12-14 13:08 | XMS_ITS | Clinical Summary ---
Demographics Address [address] [address] Mobile Phone Home Phone Email Address m Preferred Language en Marital Status Unmarried Orthodoxy Affiliation Unknown Race White Ethnic Group Not or Lati no Author Organization [facility] Address [address] [place] [address] Care Team Providers Care Commodity Buyer Name Role Phone Kala Lloyd MD Primary Care Provider [phone] Kaylie Chavez DEICER KIT ASSEMBLER Unavailable Kala Lloyd MD Unavailable Lindy Valentino [facility] Unavailable Laverne Espinal GLUE JOINTER FEEDER Unavailable Allergies Active Allergy Reactions Criticality Noted Date Comments Acetaminophen Unknown 04/25/2023 Coconut Flavoring Agent (Non-Screening) Unknown 07/23/2022 Codeine Unknown 07/23/2022 Dapagliflozin Rash Low 07/23/2022 Latex Unknown 07/23/2022 Onion Anaphylaxis High 04/25/2023 Medications chlorproMAZINE (Thorazine) 200 MG tablet Take 600 mg by mouth at bedtime Active rOPINIRole (Requip) 0.25 MG tablet Take 0.25 mg by mouth as needed at bedtime. 04/19/19 17 Active gabapentin (Neurontin) 800 MG tablet Take 800 mg by mouth in the morning and 800 mg at noon and 800 mg in the evening and 800 mg before bedtime. Active EPINEPHrine (EpiPen 2-Dre) 0.3 MG/0.3ML injection syringe Inject 1 Syringe as directed 1 (one) time. 11/03/19 22 Active doxepin (SINEquan) 50 MG capsule Take 50 mg by mouth at bedtime. Active divalproex (Depakote ER) 500 MG 24 hr tablet Take by mouth 3 tablets at bedtime Active desvenlafaxine (Pristiq) 100 MG 24 hr tablet 100 mg 1 (one) time each day at the same time Takes 1 tab Active LORazepam (Ativan) 1 MG tablet Take 1 mg by mouth 3 (three) times a day as needed for anxiety 05/14/19 24 Active aMILoride (Midamor) 5 MG tablet Take 5 mg by mouth Daily Active Blood Glucose Monitoring Suppl ([employer]) w/Device kitIndications:Ty pe 2 diabetes mellitus with stage 3a chronic kidney disease, with long-term current use of insulin ([facility]) Fsbs daily 1 kit 10/21/19 24 Active glucose blood ([employer]) test stripIndications: Type 2 diabetes mellitus with stage 3a chronic kidney disease, with long-term current use of insulin ([facility]) Fsbs daily 100 strip 3 10/21/19 24 Active Lancets (SpokenLayer Delica Plus [id number]) miscIndications:T ype 2 diabetes mellitus with stage 3a chronic kidney disease, with long-term current use of insulin ([facility]) Fsbs daily 100 each 3 10/21/19 24 Active Continuous Glucose Repair Clerk (Dexcom G7 Repair Clerk) deviceIndications :Type 2 diabetes mellitus with stage 3a chronic kidney disease, with long-term current use of insulin ([facility]) 1 Device See administration instructions 1 each 10/22/19 24 Active cholecalciferol (Vitamin D-3) 1.25 MG (84184 UT) tablet Take 50,000 Units by mouth 1 (one) time per week Active tiotropium-olodat moreno (Stiolto Respimat) 2.5-2.5 MCG/ACT aerosol solution inhalerIndication s:Acute bronchitis, unspecified organism,Chronic diarrhea Inhale 2 Inhalation Daily 4 g 11 01/31/20 24 Active MAGnesium-Oxide 400 (240 Mg) MG tabletIndications :Hypomagnesemia Take 1 tablet by mouth once daily 30 tablet 3 02/26/20 24 Active Continuous Glucose Sensor (Dexcom G7 Sensor) miscIndications:T ype 2 diabetes mellitus with stage 3a chronic kidney disease, with long-term current use of insulin ([facility]) Inject 1 Device under the skin Every 10 (ten) days 9 each 3 05/20/19 25 Active ketorolac (Acular) 0.4 % ophthalmic solution Administer 1 drop into both eyes in the morning and 1 drop in the evening and 1 drop before bedtime. 07/19/19 25 Active cyanocobalamin (Vitamin B-12) 100 MCG tablet Take 100 mcg by mouth Daily Active cetirizine (ZyrTEC) 10 MG tabletIndications :Seasonal allergic rhinitis due to pollen Take 1 tablet (10 mg) by mouth Daily 90 tablet 1 07/31/19 25 Active fluticasone (Flonase) 50 MCG/ACT nasal sprayIndications: Seasonal allergic rhinitis due to pollen Administer 2 sprays into each nostril Daily 16 g 2 07/31/19 25 Active ezetimibe (Zetia) 10 MG tabletIndications :Hyperlipidemia, unspecified hyperlipidemia type Take 1 tablet (10 mg) by mouth Daily 100 tablet 3 07/31/19 25 2025 Active metFORMIN (Glucophage) 1000 MG tabletIndications :Type 2 diabetes mellitus with peripheral neuropathy (HCC) Take 1 tablet (1,000 mg) by mouth in the morning and 1 tablet (1,000 mg) before bedtime. 200 tablet 07/31/19 25 2025 Active lisinopril 20 MG tabletIndications :Primary hypertension Take 1 tablet (20 mg) by mouth Daily 100 tablet 07/31/19 25 2025 Active montelukast (Singulair) 10 MG tabletIndications :Seasonal allergic rhinitis due to pollen Take 1 tablet (10 mg) by mouth at bedtime 100 tablet 1 07/31/19 Active atorvastatin (Lipitor) 80 MG tabletIndications :Mixed hyperlipidemia Take 1 tablet (80 mg) by mouth Daily 100 tablet 07/31/19 25 2025 Active pantoprazole (Protonix) 40 MG EC tabletIndications :Gastroesophageal reflux disease without esophagitis Take 1 tablet (40 mg) by mouth every 12 (twelve) hours 200 tablet 07/31/19 25 2025 Active Dulaglutide (Trulicity) 0.75 MG/0.5ML solution auto-injectorIndi cations:Type 2 diabetes mellitus with peripheral neuropathy (HCC) Inject 0.75 mg under the skin 1 (one) time per week 6 mL 08/29/19 25 2025 Active insulin glargine (Lantus SoloStar) 100 UNIT/ML penIndications:Ty pe 2 diabetes mellitus with peripheral neuropathy (HCC) Inject 35 Units under the skin in the morning and 35 Units before bedtime. 30 mL 3 08/29/19 25 2025 Active ergocalciferol (Vitamin D2) 1.25 MG (98150 UT) capsuleIndication s:Vitamin D deficiency Take 1 capsule by mouth once a week 12 capsule 09/03/19 25 Active etodolac (Lodine) 300 MG capsule Take 300 mg by mouth every 8 (eight) hours 09/06/19 25 Active methocarbamol (Robaxin) 500 MG tablet Take 500 mg by mouth every 8 (eight) hours if needed 09/06/19 25 Active insulin pen needle (BD Pen Needle Lizbeth 2nd Gen) 32G x 4 mm miscIndications:T ype 2 diabetes mellitus with peripheral neuropathy (HCC) USE 1 SUBCUTANEOUSLY 4 TIMES DAILY 400 each 3 12/02/19 25 Active insulin aspart (NovoLOG FlexPen ReliOn) 100 UNIT/ML penIndications:Ty pe 2 diabetes mellitus with peripheral neuropathy (HCC) 20 units small meals , 40 units large meals plus correction 1:30 > 150 mg/dl (max daily 100 units) 30 mL 3 12/02/19 25 Active albuterol HFA 90 mcg/act inhalerIndication s:Acute bronchitis, unspecified organism,Chronic diarrhea Inhale 2 puffs every 4 (four) hours if needed for wheezing 18 g 3 12/08/19 25 Active doxycycline (Adoxa) 100 MG tabletIndications :Acute bronchitis, unspecified organism Take 1 tablet (100 mg) by mouth in the morning and 1 tablet (100 mg) before bedtime. Do all this for 10 days. Take with a full glass of water and do not lie down for at least 30 minutes after. 20 tablet 12/08/19 25 2024 Active albuterol HFA 90 mcg/act inhalerIndication s:Acute bronchitis, unspecified organism,Chronic diarrhea Inhale 2 puffs every 4 (four) hours if needed for wheezing 18 g 3 01/31/20 24 2024 Discontin ued(Reord er) insulin pen needle (BD Pen Needle Lizbeth 2nd Gen) 32G x 4 mm miscIndications:T ype 2 diabetes mellitus with peripheral neuropathy (HCC) USE 1 SUBCUTANEOUSLY 4 TIMES DAILY 400 each 3 05/20/19 25 2024 Discontin ued(Reord er) insulin aspart (NovoLOG FlexPen ReliOn) 100 UNIT/ML penIndications:Ty pe 2 diabetes mellitus with peripheral neuropathy (HCC) 15 units breakfast/lunch, 30 units dinner plus correction 1:30 > 150 mg/dl (max daily 100 units) 30 mL 3 08/29/19 25 2024 Discontin ued(Dose adjustmen t) predniSONE (Deltasone) 20 MG tabletIndications :Acute bronchitis, unspecified organism Take 2 tablets (40 mg) by mouth Daily for 5 days 10 tablet 12/08/19 25 2024 Active Problems Problem Noted Date Diagnosed Date Type 2 diabetes mellitus wit h hyperglycemia, with long-term current use of insulin 05/19/2024 Age-related cataract of both eyes 02/25/2024 History of lumbar fusion 01/31/2024 Stage 3 chronic kidney disease 01/31/2024 Hypertensive chronic kidney disease with stage 1 through stage 4 chronic kidney disease, or unspecified chronic kidney disease 01/31/2024 Hypomagnesemia 01/31/2024 Piriformis syndrome of left side 01/31/2024 Assessment & Plan (09/09/2024 1:46 PM EDT): Orders: Ambulatory referral to Physical Therapy; Future Screening for colorectal cancer 01/31/2024 Trochanteric bursitis of left hip 10/23/2023 Chest pain 03/15/2023 Lumbar spondylosis 01/22/2023 Spinal stenosis of lumbar re gion with neurogenic claudication 12/19/2022 Disorder of sacrum 12/19/2022 Bipolar 1 disorder 09/03/2022 Abnormal metabolic state due to diabetes mellitu s 07/23/2022 Abnormality of red blood cells 07/23/2022 Acquired absence of both cervix and uterus 07/23 Acquired hallux valgus 07/23/2022 Acquired spondylolisthesis 07/23/2022 Acute left-sided low back pain with left-sided s ciatica 07/23/2022 Adrenal nodule 07/23/2022 Seasonal allergic rhinitis 07/23/2022 Allergic rhinitis due to pollen 07/23/2022 Allergic rhinitis 07/23/2022 Chronic bronchitis 07/23/2022 COPD (chronic obstructive pu lmonary disease) with chronic bronchitis 07/23/2022 Asymptomatic postprocedural ovarian failure 07/09 Bipolar affective disorder, currently depressed, moderate 07/23/2022 Carpal tunnel syndrome of right wrist 07/23/2022 Chronic fatigue 07/23/2022 Contracture, left ankle 07/23/2022 Degeneration of intervertebral disc of lumbar re gion 07/23/2022 Type 2 diabetes mellitus wit h stage 3b chronic kidney disease, with long-term current use of insulin 07/23/2022 Esophageal spasm 07/23/2022 Esophageal stricture 07/23/2022 Gastroesophageal reflux disease without esophagi tis 07/23/2022 GERD with esophagitis 07/23/2022 Hammertoe of left foot 07/23/2022 High cholesterol 07/23/2022 Hx of total hysterectomy 07/23/2022 Hyperlipidemia 07/23/2022 Hypercalcemia 07/23/2022 Hypertension 07/23/2022 Lesion of liver 07/23/2022 Leukocytosis 07/23/2022 Low vitamin D level 07/23/2022 Lumbago with sciatica, left side 07/23/2022 Lumbago with sciatica, right side 07/23/2022 Displacement of lumbar inter vertebral disc without myelopathy 07/23/2022 Lumbar disc herniation 07/23/2022 Class 2 severe obesity due t o excess calories with serious comorbidity and body mass index (BMI) of 35.0 to 35.9 in adult 07/23/2022 Neuropathy of right radial nerve 07/23/2022 TEODORA on CPAP 07/23/2022 Other chronic pain 07/23/2022 Dysphagia 07/23/2022 Pharyngoesophageal dysphagia 07/23/2022 Proteinuria 07/23/2022 Restless leg syndrome 07/23/2022 Situational stress 07/23/2022 Steatohepatitis, non-alcoholic 07/23/2022 Type 2 diabetes mellitus with peripheral neuropa thy 07/23/2022 Assessment & Plan (12/01/2024 9:42 PM EDT): During the appointment today all pertinent labs, [...] improve her diet and avoid fried/fatty foods in order to tolerate trulicity better. She needs to work on finding better coping skills. Assessment & Plan (08/28/2024 2:07 PM EDT): During the appointment today all pertinent labs, [...] should also avoid any sugary drinks. , Instructions given today include: Insulin instructions and Dietary education. Medicaid doesn't typically cover ozempic. Will see if they will cover trulicity. GLP-1 and GLP-1/GIP agonist: Instructed on injection technique and the use of the medication. Pt has no hx of pancreatitis or fmh of mtc. Pt is to call if any significant vomiting, diarrhea, or reflux. Will decrease lantus and novolog at dinner with starting this. Assessment & Plan (05/19/2024 4:11 PM EDT): During the appointment today all pertinent labs, [...] too much correction insulin and drop low. Assessment & Plan (01/20/2024 1:40 PM EST): During the appointment today all pertinent labs, [...] to contact her PCP about the diarrhea. Assessment & Plan (10/21/2023 9:26 PM EDT): During the appointment today all pertinent labs, [...] they have any problems or questions. Radha L Karen control is stable overall. , The patient is wearing their cgm on a daily basis and making decisions in regards to adjusting insulin daily as well for at least the last 60 days , Instructions given today include: Insulin instructions and Dietary education. Will restart lantus but at a lower dose. Will stay on her current dose of novolog. Most of her issue is her diet and she will continue to struggle with control due to this. Assessment & Plan (07/02/2023 3:02 PM EDT): During the appointment today all pertinent labs, [...] Insulin instructions and Dietary education. Will increase her lantus to try and improve control. Will need better glucose control if she is to have back surgery due to risk for infection and not healing well. Assessment & Plan (04/03/2023 7:29 PM EST): During the appointment today all pertinent labs, [...] any problems or questions. Radha Jones is making improvements and encouraged on this. , The patient is wearing their cgm [...] insulin dose. , Instructions given today include: Hypoglycemia management, Insulin instructions, and Dietary education. Will increase insulin for her larger meals and she is to keep working on eating healthier. Assessment & Plan (11/29/2022 8:24 PM EDT): During the appointment today all pertinent labs, [...] should also avoid any sugary drinks. , Instructions given today include: Insulin instructions and Dietary education. Will increase insulin but will continue to struggle to gain control until she works on healthier eating and takes her diabetes more seriously. 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 2 diabetes mellitus 10/07/2020 Chronic obstructive pulmonary disease 01/20/2018 Cigarette smoker 11/09/2014 Resolved Problems Problem Noted Date Diagnosed Date Resolved Date Type 2 diabetes mellitus wit h diabetic chronic kidney disease 01/31/2024 12/01/2024 Long-term insulin use 11/29/20222023 Diabetic autonomic neuropath y associated with type 2 diabetes mellitus 07/23/2022 11/29/2022 Diabetic retinopathy 07/23/2022 024 Hypoglycemia unawareness ass ociated with type 2 diabetes mellitus 07/23/2022 11/29/2022 Morbid obesity 07/23/2022 04/02/2023 Polyneuropathy due to type 2 diabetes mellitus 07/23/2022 11/29/2022 Type 2 diabetes mellitus 07/23/2022 Encounters Date Type Department Care Team Description 12/09/2024 2:30 PM EDT Treatment [facility] [address] [place] [address] Samuel Wright PTA Piriformis syndrome of left side (Primary Dx) 12/09/2024 Bamboo flowsheet [facility] [address] [place] [address] Samuel Wright PTA 12/09/2024 Travel 12/07/2024 Patient Outreach [facility] [address] 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 associated with type 2 diabetes mellitus (HCC); Class 2 severe obesity due to excess calories with serious comorbidity and body mass index (BMI) of 35.0 to 35.9 in adult ([facility]) 12/01/2024 12:00 PM EDT Treatment [facility] [address] [place] [address] Samuel Wright PTA Piriformis syndrome of left side (Primary Dx) 12/01/2024 Bamboo flowsheet [facility] [address] [place] [address] Samuel Wright, [employer] 12/01/2024 Travel 11/24/2024 1:00 PM EDT Clinical Support [facility] [place] [facility] [address] [place] [address] Lindy Valentino, [facility] Bipolar 1 disorder ([facility]) 11/24/2024 Bamboo flowsheet [facility] [place] [facility] [address] [place] [address] Lindy Valentino, [facility] 11/24/2024 Travel 11/16/2024 1:30 PM EDT Treatment [facility] [address] [place] [address] Samuel Wright, DANITA Piriformis syndrome of left side (Primary Dx) 11/16/2024 Bamboo flowsheet [facility] [address] [place] [address] Samuel Wright, DANITA 11/16/2024 Travel 11/12/2024 3:10 PM EDT Office Visit [facility] [address] [place] [address] Eliazar De Los Santos, SULEMA Metatarsalgia, left foot (Primary Dx); Diabetes 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 polyneuropathy, with long-term current use of insulin ([facility]); Pain due to onychomycosis of toenails of both feet 11/12/2024 Bamboo flowsheet [facility] [address] [place] [address] Eliazar De Los Santos, DPM 11/12/2024 Travel 11/04/2024 Patient Outreach [facility] [address] [place] [address] Laverne Espinal, [facility] 11/02/2024 1:30 PM EDT Treatment [facility] [address] [place] [address] Samuel Wright, [employer] Piriformis syndrome of left side (Primary Dx) 11/02/2024 Bamboo flowsheet [facility] [address] [place] [address] Samuel Wright, [employer] 11/02/2024 Travel 10/28/2024 2:00 PM EDT Treatment [facility] [address] [place] [address] Samuel Wright, [employer] Piriformis syndrome of left side (Primary Dx) 10/28/2024 Bamboo flowsheet [facility] [address] [place] [address] Samuel Wright, [employer] 10/28/2024 Travel 10/21/2024 1:00 PM EDT Evaluation [facility] [address] [place] [address] Marylou Lay, PT Piriformis syndrome of left side (Primary Dx) 10/21/2024 Plan of Care Documentation [facility] [address] [place] [address] 10/21/2024 Bamboo flowsheet [facility] [address] [place] [address] Marylou Lay, PT 10/21/2024 Travel 10/06/2024 Patient Outreach [facility] [address] [place] [address] Laverne Espinal, [facility] 09/21/2024 Telephone [facility] [address] [facility] [address] [place] [address] Alfonso Turcios, PT re: PT Eval today; FU; PT Eval rs (10/21/24 w/ Alin Lay, PT.) from Last 3 Months Immunizations Immunization Administration Dates Next Due Hep A, Adult 03/01/2020,01/24/2020,12/18/2018 Hep B, adult 06/21/2021,03/01/2020 Influenza, injectable, quadr ivalent, preservative free 12/13/2016 Influenza, recombinant, quad rivalent, injectable, preservative free 01/24/2020,12/18/2018 Pneumococcal Polysaccharide PPSV23 01/24/2020 Family History Medical History Relation Name Comments Diabetes Father Heart disease Father Kidney disease Father Mental illness Father Stroke Father stomach trouble Father Anxiety disorder Mother Depression Mother Diabetes Mother Heart disease Mother Anxiety disorder Sister Depression Sister Relation Name Status Comments Father Mother Alive Sister Social History Tobacco Use Types Packs/Day Years Used Date Smoking Tobacco: Every Day Cigarettes 0.3 15 Smokeless Tobacco: Never Tobacco Cessation:Ready to Q uit: Not Asked; Counseling Given: Yes Comments:Smokes a pack a week. 2-3 cigarettes a day. 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 [employer] Not on file Not on file No t on file Last Filed Vital Signs Vital Sign Reading Time Taken Comments Blood Pressure 136/64 12/01/2024 2:28 PM EDT Pulse 87 12/01/2024 2:28 PM EDT Temperature 37.1 C (98.7 F) 12/01/2024 2:28 PM EDT Respiratory Rate 18 11/12/2024 2:55 PM EDT Oxygen Saturation 97% 12/01/2024 2:28 PM EDT Inhaled Oxygen Concentration - - Weight 93 kg (205 lb) 12/01/2024 2:28 PM EDT Height 162.6 cm (5' 4 ) 12/01/2024 2:28 PM EDT Body Mass Index 35.19 12/01/2024 2:28 PM EDT Plan of Treatment Upcoming Encounters Date Type Department Care Team (Late st Contact Info) Description 12/22/2024 2:00 PM EDT Treatment [facility] [address] [place] [address] Claire Palmer, [employer] 12/28/2024 1:40 PM EDT Office Visit [facility] [place] [facility] [address] [place] [address] Danii Manley MD [address] [place] [address] 01/21/2025 3:20 PM EST Office Visit [facility] [address] [place] [address] Eliazar De Los Santos, DPM [address] [facility] [address] [place] [address] 02/02/2025 3:00 PM EST Office Visit [facility] [address] [facility] [phone] Kala Lloyd MD [address] [place] [address] 03/02/2025 1:00 PM EST Office Visit [facility] [address] [place] [address] Laverne Carolina, [address] [place] [address] Health Maintenance Due Date Last Done Comments CT Colonography 1971 FIT-DNA 1971 FIT 1971 FOBT 1971 Sigmoidoscopy 1971 Influenza Vaccine (#1) 2024 , 12/18/2018, 12/13/2016 Diabetes: Urine Protein Screening 12/29/2024 12/30/2023, 01/21/2023, 04/05/2022, Additional history exists Diabetes: Hemoglobin A1C 03/02/2025 025, 07/30/2024, 05/07/2024, Additional history exists Mammogram 05/29/2025 05/29/2024, 04/11, 03/09/2022, Additional history exists Diabetes: Retinopathy Screening 06/23/2025 06/23/2024, 02/25/2024, 10/28/2023, Additional history exists Colonoscopy 09/05/2032 09/05/2022 Colorectal Cancer Screening 09/05/2032 Procedures Procedure Name Priority Date/Time Associated Diagnosis Comments POCT GLYCOSYLATED HEMOGLOBIN (HGB A1C) Routine 12/01/2024 2:41 PM EDT Type 2 diabetes mellitus with peripheral neuropathy (HCC) DIABETIC RETINOPATHY SCREENING - OU - BOTH EYES Routine 06/23/2024 4:14 PM EDT BI MAMMOGRAM SCREENING TOMOSYNTHESIS BILATERAL Routine 05/29/2024 3:33 PM EDT Encounter for screening mammogram for malignant neoplasm of breast MICROALBUMIN, URINE, 24 HOUR Routine 12/30/2023 8:13 AM EDT COLONOSCOPY DIAGNOSTIC Routine 5:27 PM EDT from Last 3 Months or Most Recently Relevant to Health Maintenance Results * (ABNORMAL) POCT glycosylated hemoglobin (Hb A1C) docked device (12/01/2024 2:41 PM EDT) Hemoglobin A1C 10.1 Blood Venous blood specimen / Unknown 12/01/2024 2:41 PM EDT Laverne Carolina DO POINT OF CARE TEST ENTER/E DIT ORDERABLES Final Result * (ABNORMAL) Diabetic Retinopathy Screening - OU - Both Eyes (06/23/2024 4:14 PM EDT) Anatomical Region Laterality Modality Head Other Laverne Carolina DO OPHTH PHOTOGRAPHY Final Re sult * Bilateral screening mammogram with tomosynthesis (05/29/2024 3:33 PM EDT) Anatomical Region Laterality Modality Breast Bilateral Mammography 05/30/2024 4:43 PM EDT Impressions 05/30/2024 4:50 PM EDT Impression: No specific evidence of malignancy seen in either breast. BIRADS 2 - Benign Findings DENSITY: The breasts are almost entirely fatty. FOLLOW-UP: Routine Screening Mammogram ELECTRONICALLY SIGNED BY: Baron Erickson M.D. Narrative 05/30/2024 4:50 PM EDT Examination: BI MAMMOGRAM SCREENING TOMOSYNTHESIS BILATERAL Clinical [...] on the left which appear grossly unremarkable. Procedure Note Baron Erickson MD - 05/30/2024 Examination: BI MAMMOGRAM SCREENING TOMOSYNTHESIS BILATERAL Clinical History: screen Technique: Screening digital mammography study of both breasts wasperformed with 2-D and 3-D tomosynthesis imaging. Study was compared tothe prior exam dated 04/22/2023. Findings: There is no evidence of interval dominant spiculated mass,grouped microcalcifications, or skin thickening which would be suggestiveof malignancy. Mild scattered benign-appearing calcifications are noted bilaterally.Small benign-appearing asymmetric density on the right posteriorly,similar to the prior study. Axillary lymph nodes are noted on the leftwhich appear grossly unremarkable. IMPRESSION: Impression: No specific evidence of malignancy seen in either breast. BIRADS 2 - Benign Findings DENSITY: The breasts are almost entirely fatty. FOLLOW-UP: Routine Screening Mammogram ELECTRONICALLY SIGNED BY: Baron Erickson M.D. Kala Lloyd MD IMG BI PROCEDURES Final Result * Microalbumin, urine, 24 hour (12/30/2023 8:13 AM EDT) Urine Urine specimen obtained by clean catch procedure / Unknown Danii Manley MD LAB URINE ORDERABLES Final Re sult * (ABNORMAL) COLONOSCOPY DIAGNOSTIC (09/05/2022 5:27 PM EDT) Anatomical Region Laterality Modality Radiographic Emerita ging Kala Lloyd MD IMG XR PROCEDURES Final Result from Last 3 Months or Most Recently Relevant to Health Maintenance Insurance [address] [id number] [facility] MEDICAID [place] Care Teams Commodity Buyer Relationship Specialty Start Date End Date Kala Lloyd MD [facility] [place] [address] PCP - General Family Medicine 08/07/22 Kala Lloyd MD [address] [place], [place] [id number] PCP - [facility] [place] [facility] 06/10/23 Kaylie Chavez, DEICER KIT ASSEMBLER [address] [place] [address] Nurse Practitioner Family Medicine 08/07/22 Lindy Valentino, [facility] [address] [facility] [address] [place] [address] Behavioral Health 03/18/24 Laverne Espinal, LUCERO [address] [place], [place] [id number] Science Professor Family Medicine 09/07/24
--- OUTSIDE RECORDS SUMMARY | 2024-12-14 13:08 | XMS_ITS | Encounter Summary ---
Demographics Address [address] [address] Mobile Phone Home Phone Email Address m Preferred Language en Marital Status Unmarried Presybeterian Affiliation Unknown Race White Ethnic Group Not or Lati no Author Organization [facility] Address [address] [place] [address] Care Team Providers Care Perforating Machine Operator Name Role Phone Kala Lloyd MD Primary Care Provider [phone] Kaylie Chavez STEEL PICKLER Unavailable Kala Lloyd MD Unavailable Lindy Valentino [facility] Unavailable Laverne Espinal BINDING PRINTER Unavailable [phone] Encounter Details Date Type Department Care Team (Late st Contact Info) Description 03/06/2023 Orders Only [facility] Family Medicine [address] [place] [address] Kala Lloyd MD [address] [place] [address] Social History Tobacco Use Types Packs/Day Years Used Date Smoking Tobacco: Every Day Cigarettes 1 15 Comments:Smokes 5 or less ci garettes per day. 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 on file Not on file No t on file documented as of this encounter Plan of Treatment Upcoming Encounters Date Type Department Care Team (Late st Contact Info) Description 12/22/2024 2:00 PM EDT Treatment [facility] [address] [place] [address] Claire Palmer, AUTO ELECTRICIAN 12/28/2024 1:40 PM EDT Office Visit [facility] [address] [place] [address] Danii Manley MD [address] [place] [address] 01/21/2025 3:20 PM EST Office Visit [facility] [address] [place] [address] Eliazar De Los Santos, DPAvtar [address] [facility] [address] [place] [address] 02/02/2025 3:00 PM EST Office Visit [facility] [address] [place] [address] Kala Lloyd MD [address] [place], [place] [address] 03/02/2025 1:00 PM EST Office Visit [facility] [address] [place] [address] Laverne Carolina, [address] [place] [address] documented as of this encounter Procedures Procedure Name Priority Date/Time Associated Diagnosis Comments COLONOSCOPY DIAGNOSTIC Routine 09/05/2022 5:27 PM EDT documented in this encounter Results * (ABNORMAL) COLONOSCOPY DIAGNOSTIC (09/05/2022 5:27 PM EDT) Anatomical Region Laterality Modality Radiographic Emerita ging us Kala Lloyd MD IMG XR PROCEDURES Final Result documented in this encounter Visit Diagnoses Not on filedocumented in this encounter Additional Health Concerns Assessment Noted Time PHQ-9 Depression Total Score: 26 023 4:10 PM EDT documented as of this encounter Care Teams Perforating Machine Operator Relationship Specialty Start Date End Date Kala Lloyd MD [address] [place] [address] PCP - General Family Medicine 08/07/22 Kala Lloyd MD [address] [place] [address] PCP - LIANA Chaparro WASTEWATER ANALYST 06/10/23 Kaylie Chavez NP [address] [place] [address] Nurse Practitioner Family Medicine 08/07/22 Lindy Valentino [facility] [address] [place] [address] Behavioral Health 03/18/24 Laverne Espinal LSW [address] [place] [address] Diet Counselor Family Medicine 09/07/24 documented as of this encounter
--- OUTSIDE RECORDS SUMMARY | 2024-12-14 13:08 | XMS_ITS | Encounter Summary ---
Demographics Address [address] [facility] [address] [place] [address] Mobile Phone Home Phone Email Address m Preferred Language en Marital Status Unmarried Hoahaoism Affiliation Unknown Race White Ethnic Group Not or Lati no Author Organization [facility] Address [address] [place] [address] Care Team Providers Care Cylinder Dyer Name Role Phone Kala Lloyd MD Primary Care Provider [phone] Kaylie Chavez DIVER PUMPER Unavailable Kala Llyod MD Unavailable Lindy Valentino [facility] Unavailable Laverne Espinal LAMP INSPECTOR Unavailable [phone] Encounter Details Date Type Department Care Team (Late st Contact Info) Description 12/01/2024 Bamboo flowsheet [facility] [address] [place] [address] Samuel Wright, DANITA Social History [...] Industry 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 Date 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 on file Not on file No t on file documented as of this encounter Plan of Treatment Upcoming Encounters Date Type Department Care Team (Late st Contact Info) Description 12/22/2024 2:00 PM EDT Treatment [facility] [address] [place] [address] Claire Palmer, DANITA 12/28/2024 1:40 PM EDT Office Visit [facility] [address] [place] [address] Danii Manley MD [address] [place] [address] 01/21/2025 3:20 PM EST Office Visit [facility] [address] [place] [address] Eliazar De Los Santos, DPM [address] [facility] 5 [place] [address] 02/02/2025 3:00 PM EST Office Visit [facility] [address] [place] [phone] Kala Lloyd MD [address] [place], [place] [phone] 03/02/2025 1:00 PM EST Office Visit [facility] [address] [place] [address] Laverne Carolina, DO [address] [place] [address] documented as of this encounter Visit Diagnoses Not on filedocumented in this encounter Additional Health Concerns Assessment Noted Time PHQ-9 Depression Total Score: 22 024 3:54 PM EDT documented as of this encounter Care Teams Cylinder Dyer Relationship Specialty Start Date End Date Kala Lloyd MD [address] [place] [address] PCP - General Family Medicine 08/07/22 Kala Lloyd MD [address] [place] [address] PCP - LIANA Chaparro GROOVING LATHE TENDER 06/10/23 Kaylie Chavez NP [address] [place] [address] Nurse Practitioner Family Medicine 08/07/22 Lindy Valentino [facility] [address] [facility] [address] [place] [address] Behavioral Health 03/18/24 Laverne Espinal LSW [address] [place] [address] Element Setter Family Medicine 09/07/24 documented as of this encounter
--- OUTSIDE RECORDS SUMMARY | 2024-12-14 13:08 | XMS_ITS | Encounter Summary ---
Demographics Address [address] [address] Mobile Phone Home Phone Email Address m Preferred Language en Marital Status Unmarried Jehovah'S Witness Affiliation Unknown Race White Ethnic Group Not or Lati no Author Organization [facility] Address [address] [place] [address] Care Team Providers Care Immigration Paralegal Name Role Phone Kala Garcia MD Primary Care Provider [phone] Kaylie Chavez EDGE BANDER OPERATOR Unavailable Kala Garcia MD Unavailable Lindy Valentino [facility] Unavailable Laverne Espinal TENDERIZER TENDER Unavailable [phone] Encounter Details Date Type Department Care Team (Late st Contact Info) Description 12/07/2024 Patient Outreach [facility] [address] [address] Laverne Espinal, TENDERIZER TENDER [address] [place] [address] Social History Tobacco Use Types [...] you are drinking? 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 Called and spoke to pt for CCM monitoring. States she is resting for a few hours while mom is at dialysis. She's had a chest cold since last week. Vomited last Saturday, and has had hacking cough. Thick clear mucous. Slight SOB. She is taking nyquil, reports she is out of her rescue inhaler, cetrizine, and flonase. Advised screen writer would request refills. Pt admits she has difficulty letting self rest between managing her own care and mother's care, and feels this has caught up with her. Pt denies having any other needs at this time. Monitor call kept brief due to pt had coughing fit. Called [facility]. Cetrizine was filled 10/25 for 90 day supply. Refills are available on flonase and screen writer asked that this be filled. They do not have active rx for albuterol inhaler. * Kala Garcia MD - 12/07/2024 2:36 PM EDT Rx for doxycycline and prednsione and albuterol sent * LUCERO Ramirez - 12/07/2024 2:36 PM EDT <December 08, 2024, 10:01 - LUCERO Ramirez> Notified pt of albuterol refill and rx doxycycline and prednisone. Advised that pharmacy also filled her flonase, and she should have cetirizine at home. Pt voices understanding. Enc her to call office if not improved after finishing atb and steroid. documented in this encounter Miscellaneous Notes * Addendum Note - Kala Garcia MD - 12/07/2024 2:36 PM EDTAddended by: KALA GARCIA on: 12/07/2024 07:31 PM Modules accepted: Orders documented in this encounter Plan of Treatment Upcoming Encounters Date Type Department Care Team (Late st Contact Info) Description 12/22/2024 2:00 PM EDT Treatment [facility] [address] [place] [address] Claire Palmer, RVDA MASTER CERTIFIED RV TECHNICIAN 12/28/2024 1:40 PM EDT Office Visit [facility] [address] [place] [address] Danii Manley MD [address] [place] [address] 01/21/2025 3:20 PM EST Office Visit [facility] [address] [place] [address] Eliazar De Los Santos DPM [address] [facility] [address] [place] [address] 02/02/2025 3:00 PM EST Office Visit [facility] [address] [place] [address] Kala Garcia MD [address] [place] [address] 03/02/2025 1:00 PM EST [facility] [address] [place] [address] Laverne Carolina DO [address] [place] [address] documented as of this encounter Visit Diagnoses Diagnosis Type 2 diabetes mellitus with diabetic polyneuropathy, with long-term current use of insulin (HCC)- Primary Essential (primary) hypertension Unspecified essential hypertension Acute bronchitis, unspecified organism Chronic diarrhea Diarrhea documented in this encounter Additional Health Concerns Assessment Noted Time PHQ-9 Depression Total Score: 22 024 3:54 PM EDT documented as of this encounter Care Teams Immigration Paralegal Relationship Specialty Start Date End Date Kala Garcia MD [address] [place] [address] PCP - General Family Medicine 08/07/22 Kala Garcia MD [address] [place] [address] PCP - LIANA Chaparro BIG DATA ADMIN 06/10/23 Kaylie Chavez, AKILAH [address] [place] [address] Nurse Practitioner Family Medicine 08/07/22 Lindy Valentino [facility] [address] [place] [address] Behavioral Health 03/18/24 Laverne Espinal LSW [address] [place] [address] Sales Office Coordinator Family Medicine 09/07/24 documented as of this encounter
--- OUTSIDE RECORDS SUMMARY | 2024-12-14 13:08 | XMS_ITS | Clinical Summary ---
Demographics Address [address] [address] Home Phone Preferred Language Unknown Marital Status Unknown Confucianism Affiliation Unknown Race Unknown Ethnic Group Unknown Author Organization [facility] Address [address] [place] [address] Phone Care Team Providers Care Seismic Survey Assistant Name Role Phone Unavailable Primary Care Provider Unavailabl e Social History Tobacco Use Types Packs/Day Years Used Date Smoking Tobacco: Never Assessed Comments Unknown Sex and Gender Information Value Date Recorded Sex Assigned at Not on file Legal Sex Female 11:38 AM EST Gender Identity Not on file Sexual Orientation Not on file Plan of Treatment Not on file
--- OUTSIDE RECORDS SUMMARY | 2024-12-14 13:09 | XMS_ITS | Clinical Summary ---
Author Organization [employer] [employer] Address [id number] [place] [address] Care Team Providers Care Welder Fitter Apprentice Name Role Phone EarnesttracyPhuLaverne Avtar MISHRA Primary Care Provider [phone] Allergies Active Allergy Reactions Criticality Noted Date Comments Codeine 12/31/2018 N/V Dapagliflozin 12/31/2018 rash Latex Rash Low 01/07/2019 Medications chlorproMAZINE (THORAZINE) 200 mg tablet Take 1 tablet (200 mg total) by mouth once daily at bedtime. Take 2-3 tablets at night Active divalproex (DEPAKOTE) 500 mg EC tablet Take 3 tablets (1,500 mg total) by mouth nightly. Active doxepin (SINEquan) 50 mg capsule Take 1 capsule (50 mg total) by mouth in the morning and 1 capsule (50 mg total) at noon and 1 capsule (50 mg total) before bedtime. Active gabapentin (NEURONTIN) 800 mg tablet Take 1 tablet (800 mg total) by mouth in the morning and 1 tablet (800 mg total) at noon and 1 tablet (800 mg total) in the evening and 1 tablet (800 mg total) before bedtime. Active desvenlafaxine (PRISTIQ) 100 mg 24 hr tablet Take 1 tablet (100 mg total) by mouth in the morning. Take 1.5 tablets. Active metFORMIN (GLUMETZA) 1000 MG (MOD) 24 hr tablet Take 1 tablet (1,000 mg total) by mouth in the morning and 1 tablet (1,000 mg total) in the evening. Take with meals. Active insulin aspart U-100 (NovoLOG) 100 unit/mL injection Inject under the skin in the morning and at noon and in the evening. Inject before meals. Sliding scale . Active insulin glargine (LANTUS, BASAGLAR) 100 unit/mL (3 mL) insulin pen Inject 40 Units under the skin in the morning and 40 Units before bedtime. Active rOPINIRole (REQUIP) 0.25 mg tablet Take 1 tablet (0.25 mg total) by mouth nightly. Active lisinopril (PRINIVIL,ZEST RIL) 20 mg tablet Take 1 tablet (20 mg total) by mouth in the morning. Active atorvastatin (LIPITOR) 40 mg tablet Take 2 tablets (80 mg total) by mouth in the morning. Active fluticasone propionate (FLONASE) 50 mcg/actuation nasal spray Administer 2 sprays into each nostril in the morning. Active pantoprazole (PROTONIX) 40 mg EC tablet Take 1 tablet (40 mg total) by mouth in the morning and 1 tablet (40 mg total) before bedtime. Active tiotropium-olo dateroL (STIOLTO RESPIMAT) 2.5-2.5 mcg/actuation mist Inhale 2 puffs in the morning. Active cholecalcifero l (VITAMIN D3) 50,000 units capsule Take 5,000 Units by mouth once a week. Active magnesium oxide (MAGOX) 400 mg tablet Take 1 tablet (400 mg total) by mouth in the morning and 1 tablet (400 mg total) before bedtime. Active cetirizine (ZyrTEC) 10 mg tablet Take 1 tablet (10 mg total) by mouth in the morning. Active ezetimibe (ZETIA) 10 mg tablet Take 1 tablet (10 mg total) by mouth in the morning. Active albuterol (PROVENTIL HFA;VENTOLIN HFA) 90 mcg/actuation inhaler Inhale 2 puffs every 6 (six) hours as needed for wheezing. Active blood-glucose sensor (DEXCOM G6 SENSOR) device by miscellaneous route. Active EPINEPHrine (ADRENALIN) 1 mg/mL injection Inject into the appropriate muscle once. Active LORazepam (ATIVAN) 0.5 mg tablet Take 2 tablets (1 mg total) by mouth every 6 (six) hours as needed for anxiety. 0.5-1 mg daily 2 tablets at HS Active aMILoride (MIDAMOR) 5 mg tablet Take 1 tablet (5 mg total) by mouth in the morning. Active montelukast (SINGULAIR) 10 mg tablet Take 1 tablet (10 mg total) by mouth nightly. Active tiZANidine (ZANAFLEX) 4 mg tablet Take 1 tablet (4 mg total) by mouth 2 (two) times a day as needed for muscle spasms. 60 tablet 1 3 Active LORazepam (ATIVAN) 1 mg tablet Take 1 tablet (1 mg total) by mouth in the morning. 1 tablets 3 times daily and 2 tablets at bedtime. Active TRULICITY 0.75 mg/0.5 mL pen injector Inject 0.5 mL (0.75 mg total) under the skin once a week. INJECT 0.75 MG UNDER THE SKIN 1 (ONE) TIME PER WEEK 5 026 Active doxycycline (ADOXA) 100 MG tablet Take 1 tablet (100 mg total) by mouth in the morning. 5 025 Active predniSONE (DELTASONE) 20 mg tablet Take 1 tablet (20 mg total) by mouth in the morning. 5 025 Active Problems Problem Noted Date Diagnosed Date Trochanteric bursitis of left hip 10/23/2023 Chest pain 03/15/2023 Lumbar spondylosis 01/22/2023 Disorder of sacrum 12/19/2022 Spinal stenosis of lumbar re gion with neurogenic claudication 12/19/2022 Primary hypertension 12/18/2021 Familial hypercholesterolemia 12/18/2021 Type 2 diabetes mellitus, wi th long-term current use of insulin 12/18/2021 WICK (nonalcoholic steatohepatitis) 12/18/2021 Encounters Date Type Department Care Team Description 12/11/2024 9:22 AM EDT - 12/11/2024 9:29 AM EDT Surgery [facility] [address] [place] [address] Reymundo Giron MD INJECTION BLOCK EPIDURAL CAUDAL STEROID [03211 ([facility] )] 12/11/2024 9:05 AM EDT Anesthesia Event [facility] [address] [place] [address] Jude Stoddard, Brooks Hanna, NURSING TECHN-GLASS RIBBON MACHINE OPERATOR 12/11/2024 8:29 AM EDT - 12/11/2024 11:59 PM EDT Hospital Encounter [facility] [address] [place] [address] Reymundo Giron MD Discharge Disposition: Home 12/11/2024 8:10 AM EDT - 12/11/2024 8:28 AM EDT Hospital Encounter [facility] - Radiology [address] [place] [address] Reymundo Giron MD Spinal stenosis of lumbar region with neurogenic claudication Discharge Disposition: Home 11/23/2024 Travel 11/19/2024 Telephone [facility] [address] [place] [address] Louise Hale RN 11/17/2024 2:30 PM EDT Office Visit [facility] [address] [place] [address] Ricky Miles PA Spinal stenosis of lumbar region with neurogenic claudication (Primary Dx) 11/17/2024 Travel 10/08/2024 2:00 PM EDT Office Visit [facility] [address] [place] [address] Ricky Miles PA Lumbosacral spondylosis without myelopathy (Primary Dx) 10/08/2024 Travel 09/25/2024 2:30 PM EDT - 09/25/2024 2:37 PM EDT Surgery [facility] [address] [place] [address] Reymundo Giron MD INJECTION BLOCK SACROILIAC JOINT [91149 ([facility] )] 09/25/2024 1:44 PM EDT - 09/25/2024 11:59 PM EDT Hospital Encounter [facility] [address] [place] [address] Reymundo Giron MD Discharge Disposition: Home 09/25/2024 10:55 AM EDT - 09/25/2024 1:43 PM EDT Hospital Encounter [facility] [address] [place] [address] Reymundo Giron MD Disorder of sacrum Discharge Disposition: Home 09/17/2024 8:00 AM EDT Office Visit [facility] [address] [place] [address] Ricky Miles PA Disorder of sacrum (Primary Dx) 09/17/2024 Travel 09/15/2024 Travel from Last 3 Months Family History Medical History Relation Name Comments Diabetes Father Heart disease Father Kidney disease Father Mental illness Father Stroke Father Anxiety disorder Mother Depression Mother Diabetes Mother Heart disease Mother Relation Name Status Comments Father Mother Social History Tobacco Use Types Packs/Day Years Used Date Smoking Tobacco: Every Day Cigarettes 1 18 Smokeless Tobacco: Never Tobacco Cessation:Ready to Q uit: Not Asked; Counseling Given: Not Answered Comments:One pack per week Alcohol Use Standard [...] not to disclose 2022 1:17 PM EST Last Filed Vital Signs Vital Sign Reading Time Taken Comments Blood Pressure 127/87 12/11/2024 9:16 AM EDT Pulse 79 12/11/2024 9:16 AM EDT Temperature 36 C (96.8 F) 12/11/2024 8:47 AM EDT Respiratory Rate 18 12/11/2024 9:16 AM EDT Oxygen Saturation 98% 12/11/2024 9:16 AM EDT Inhaled Oxygen Concentration - - Weight 90.7 kg (200 lb) 08/27/2024 9:00 AM EDT Height 162.6 cm (5' 4 ) 12/11/2023 1:31 PM EDT Body Mass Index 34.33 12/11/2023 1:31 PM EDT Plan of Treatment Upcoming Encounters Date Type Department Care Team (Late st Contact Info) Description 01/05/2025 1:15 PM EDT Office Visit [facility] [address] [place] [address] Ricky Miles, PA [address] [place], [place] [address] Scheduled Procedures Name Priority Associated Diagnoses Date/Ti me INJECTION BLOCK SACROILIAC JOINT Disorder of sacrum Health Maintenance Due Date Last Done Comments Diabetic Ophthalmology Exam 1971 Tobacco Counseling 1971 Depression Screening 1983 Diabetic Foot Exam 12/24/1989 DTaP,Tdap and Td Vaccines (1 - Tdap) 12/24/1990 Zoster (Shingles) Vaccine (1 of 2) 12/24/2021 Influenza Vaccine 11/09/2024 01/24/2020, , 12/13/2016 Statin Use: Diabetic 07/30/2025 07/30/2024 Adult BMI Screening 08/27/2025 08/27/2024 Tobacco Screening 12/11/2025 12/11/2024 Medical Devices Implanted Type Area Hazardous Waste Management Specialist Device Identifier Shelf Expiration Date Model / Serial / Lot Lumbar Description:lumbar hardware Ortho Hardware Description:left wrist Procedures Procedure Name Priority Date/Time Associated Diagnosis Comments FL FLUOROSCOPY UP TO 1 HOUR Routine 12/11/2024 9:10 AM EDT Spinal stenosis of lumbar region with neurogenic claudication AR NJX DX/THER SBST INTRLMNR LMBR/SAC W/IMG GDN 12/11/2024 9:04 AM EDT Spinal stenosis of lumbar region with neurogenic claudication Special Needs Diabetic, Dexcom, Trulicity (Fri) - hold 7d Latex allergy FL FLUOROSCOPY UP TO 1 HOUR Routine 09/25/2024 2:18 PM EDT Disorder of sacrum AR INJECTION,SACROILI AC JOINT 09/25/2024 2:13 PM EDT Disorder of sacrum Special Needs Diabetic, Dexcom Latex allergy from Last 3 Months Results * Fluoroscopy less than one hour (12/11/2024 9:10 AM EDT) Only the most recent of2 resultswithin the time period is included. Narrative SYSTEMGENERATED, DOCUMENTATION - 12/11/2024 9:10 AM EDT No Reading Required. This procedure does not require a formal dictation. Non-Radiologist provider performed procedures can be reviewed under Post-Op, Procedure or Progress notes. For full report details, please reach out to your physician. Effective 07/26/2020 this image will be visible to you in MyChart. Reymundo Giron MD IMG FLUOROSCOPY ORDERABLES Fi nal Result from Last 3 Months Insurance [facility] 1/[address] MEDICAID Care Teams Welder Fitter Apprentice Relationship Specialty Start Date End Date Laverne Carolina DO [address] [facility] [address] [place] [address] PCP - General Family Medicine 11/17/24
--- OUTSIDE RECORDS SUMMARY | 2024-12-14 13:09 | XMS_ITS | Encounter Summary ---
Author Organization [employer] Address [id number] [address] [place] [address] Care Team Providers Care Labor Contractor Name Role Phone Laverne Carolina Primary Care Provider [phone] Encounter Details Date Type Department Care Team (Late st Contact Info) Description 03/28/2023 Orders Only [facility] [address] [place] [phone] Radha Finley RMA Primary hypertension; Familial hypercholesterolemia; Chest pain, unspecified type; Abnormal EKG Social History Tobacco Use Types Packs/Day Years [...] got money to buy more. Never True 03/15/2023 Within the past 12 months th e food we bought just didn't last and we didn't have money to get more. Never True 03/15/2023 Purpose - Life Answer Date Recorded Purpose and direction in life Unknown Comments No Sex and Gender Information Value Date Recorded Sex Assigned at Female 01/22/2023 1:17 PM EST Legal Sex Female 11:44 AM EDT Gender Identity Female 01/22/2023 1:17 PM EST Sexual Orientation Choose not to disclose 2022 1:17 PM EST documented as of this encounter Plan of Treatment Upcoming Encounters Date Type Department Care Team (Late st Contact Info) Description 01/05/2025 1:15 PM EDT Office Visit [facility] [address] [place] [phone] Ricky Miles PA [address] [place], [place] [id number] Scheduled Procedures Name Priority Associated Diagnoses Date/Ti me INJECTION BLOCK SACROILIAC JOINT Disorder of sacrum documented as of this encounter Procedures Procedure Name Priority Date/Time Associated Diagnosis Comments CBC WITH AUTO DIFFERENTIAL Routine 03/28/2023 Primary hypertension Familial hypercholesterolemia Chest pain, unspecified type Abnormal EKG LIPID PROFILE Routine 03/28/2023 Primary hypertension Familial hypercholesterolemia Chest pain, unspecified type Abnormal EKG BASIC METABOLIC PANEL Routine 03/28/2023 Primary hypertension Familial hypercholesterolemia Chest pain, unspecified type Abnormal EKG documented in this encounter Results * CBC auto differential (03/28/2023) 03/28/2023 Bird Dykes MD LAB BLOOD ORDERABLES Final Re sult Performing Organization Address [facility] Co de Phone Number [facility] * Basic Metabolic Panel (03/28/2023) 03/28/2023 Bird Dykes MD LAB BLOOD ORDERABLES Final Re sult [facility] * Lipid profile (03/28/2023) External Cholesterol 268 [facility] External Cholesterol:Hdl 5.5 [facility] External Hdl Cholesterol 49 [facility] External Triglycerides 325 [facility] External Very Low Lipoprotein 65.0 [facility] 03/28/2023 us Bird Dykes MD LAB BLOOD ORDERABLES Final Re sult [facility] documented in this encounter Visit Diagnoses Diagnosis Primary hypertension Unspecified essential hypertension Familial hypercholesterolemia Chest pain, unspecified type Abnormal EKG Nonspecific abnormal electrocardiogram (ECG) (EKG) documented in this encounter Care Teams Labor Contractor Relationship Specialty Start Date End Date Laverne Carolina DO [address] [facility] [address] [place] [address] PCP - General Family Medicine 11/17/24 documented as of this encounter
--- OUTSIDE RECORDS SUMMARY | 2024-12-14 13:09 | XMS_ITS | Encounter Summary ---
Demographics Address [address] [address] Mobile Phone Home Phone Email Address m Preferred Language en Marital Status Unmarried Holiness Affiliation Unknown Race White Ethnic Group Not or Lati no Author Organization [facility] Address [address] [place] [address] Care Team Providers Care Plant Puller Name Role Phone Kala Lloyd MD Primary Care Provider [phone] Kaylie Chavez CLOTH LAMINATING SUPERVISOR Unavailable Kala Lloyd MD Unavailable Lindy Valentino [facility] Unavailable Laverne Espinal RETREAD BUILDER Unavailable [phone] Encounter Details Date Type Department Care Team (Late st Contact Info) Description 05/19/2024 Abstract [facility] Medicine [address] [place] [address] Laverne Carolina, DO [address] [facility] [address] [place] [address] Social History Tobacco Use Types Packs/Day Years [...] Date Recorded Patient Health Questionnaire-2 Score 0 05/19/2024 Education Answer Date Recorded What is the [...] Industry 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 Never 05/19/2024 3:26 PM Ramila Fonseca LPN Q2: How many drinks containing alcohol do you have on a typical day when you are drinking? Patient does not drink 05/19/2024 3:26 PM Ramila Fonseca LPN Q3: How often do you have six or more drinks on one occasion? Never 05/19/2024 3:26 PM Ramila Fonseca LPN * Over the past 2 weeks, how often have you been bothered by any of the following problems? Question Answer Date of Assessment Author Little interest or pleasure in doing things Not at all 05/19/2024 3:25 PM Ramila Fonseca LPN Feeling down, depressed, or hopeless Not at all 05/19/2024 3:25 PM Ramila Fonseca LPN Patient Health Questionnaire-2 Score 0 05/19/2024 3:25 PM Augustine Fonseca LPN documented as of this encounter Plan of Treatment Upcoming Encounters Date Type Department Care Team (Late st Contact Info) Description 12/22/2024 2:00 PM EDT Treatment [facility] [address] [place] [address] Claire Palmer, PUBLICATION DIRECTOR 12/28/2024 1:40 PM EDT Office Visit [facility] [place] [facility] [address] [place] [address] Danii Manley MD [address] [place] [address] 01/21/2025 3:20 PM EST Office Visit [facility] [address] [facility] [address] [place] [address] Eliazar De Los Santos, DPM [address] [facility] [address] [place] [address] 02/02/2025 3:00 PM EST Office Visit [facility] [address] [place] [address] Kala Lloyd MD [address] [place] [address] 03/02/2025 1:00 PM EST [facility] [address] [place] [address] Laverne Carolina DO [address] [place] [address] documented as of this encounter Visit Diagnoses Not on filedocumented in this encounter Additional Health Concerns Assessment Noted Time PHQ-9 Depression Total Score: 22 2 024 3:54 PM EDT documented as of this encounter Care Teams Plant Puller Relationship Specialty Start Date End Date Kala Lloyd MD [address] [place] [address] PCP - General Family Medicine 08/07/22 Kala Lloyd MD [address] [place] [address] PCP - [facility] Chaparro SECURITY REP 06/10/23 Kaylie Chavez, CLOTH LAMINATING SUPERVISOR [address] [place] [address] Nurse Practitioner Family Medicine 08/07/22 Lindy Valentino, [facility] [address] [facility] [address] [place] [address] Behavioral Health 03/18/24 Laverne Espinal LSW [address] [place] [address] Linoleum Floor Installer Family Medicine 09/07/24 documented as of this encounter
--- OUTSIDE RECORDS SUMMARY | 2024-12-14 13:09 | XMS_ITS | Encounter Summary ---
Demographics Address [address] [address] Mobile Phone Home Phone Email Address m Preferred Language en Marital Status Unmarried Gnosticist Affiliation Unknown Race White Ethnic Group Not or Lati no Author Organization [facility] Address [address] [place] [address] Care Team Providers Care Senior Benefits Manager Name Role Phone Kala Lloyd MD Primary Care Provider [phone] Kaylie Chavez MACHINE FEATHEREDGER AND REDUCER Unavailable Kala Lloyd MD Unavailable iLndy Valentino [facility] Unavailable Laverne Espinal [facility] Unavailable [phone] Encounter Details Date Type Department Care Team (Late st Contact Info) Description 09/05/2022 Abstract [facility] Medicine [address] [place] [address] Kaylie Chavez MACHINE FEATHEREDGER AND REDUCER Social History Tobacco Use Types Packs/Day Years Used Date Smoking Tobacco: Every Day Cigarettes 1 15 Comments:Smokes 5 or less ci garettes per day. Alcohol Use Standard Drinks/Week Comments Not Asked 0 (1 standard drink = 0.6 oz [...] Recorded Patient Health Questionnaire-2 Score 6 08/07/2022 Comments Unknown Sex and Gender Information Value Date Recorded Sex Assigned at Not on file Legal Sex Female 6:48 PM EDT Gender Identity Female 05/23/2022 6:48 PM EDT Sexual Orientation Not on file documented as of this encounter Plan of Treatment Upcoming Encounters Date Type Department Care Team (Late st Contact Info) Description 12/22/2024 2:00 PM EDT Treatment [facility] [address] [place] [address] Claire Palmer, RN CALL CENTER 12/28/2024 1:40 PM EDT Office Visit [facility] [place] [facility] [address] [place] [address] Danii Manley MD [address] [place] [address] 01/21/2025 3:20 PM EST Office Visit [facility] [address] [place] [address] Eliazar De Los Santos, DPM [address] [facility] 5 [place] [address] 02/02/2025 3:00 PM EST Office Visit [facility] [address] [place] [address] Kala lLoyd MD [address] [place] [address] 03/02/2025 1:00 PM EST Office Visit [facility] [place] [facility] [address] [facility] 230 [place] [address] Laverne Carolina DO [address] [facility] [address] [place] [address] documented as of this encounter Visit Diagnoses Not on filedocumented in this encounter Additional Health Concerns Assessment Noted Time PHQ-9 Depression Total Score: 26 023 4:10 PM EDT documented as of this encounter Care Teams Senior Benefits Manager Relationship Specialty Start Date End Date Kala Lloyd MD [address] [place], [place] [id number] PCP - General Family Medicine 08/07/22 Kala Lloyd MD [address] [place] [address] PCP - SOTOS Krysta [facility] 06/10/23 Kaylie Chavez, AKILAH [address] [place] [address] Nurse Practitioner Family Medicine 08/07/22 Lindy Valentino, [facility] [address] [place] [address] Behavioral Health 03/18/24 Laverne Espinal LSW [address] [place] [address] Candy Rolling Machine Operator Family Medicine 09/07/24 documented as of this encounter
--- OUTSIDE RECORDS SUMMARY | 2024-12-14 13:09 | XMS_ITS | Encounter Summary ---
Demographics Address [address] [address] Mobile Phone Home Phone Email Address m Preferred Language en Marital Status Unmarried Denominational Affiliation Unknown Race White Ethnic Group Not or Lati no Author Organization [facility] Address [address] [place] [address] Care Team Providers Care Infection Control Rn Name Role Phone Kala Lloyd MD Primary Care Provider [phone] Kaylie Chavez TRANSLITERATOR Unavailable Kala Lloyd MD Unavailable Lindy Valentino [facility] Unavailable Laverne Espinal RESOURCE TEACHER Unavailable [phone] Encounter Details Date Type Department Care Team (Late st Contact Info) Description 10/03/2022 [facility] [address] [place] [address] Kala Lloyd MD [address] [place] [address] Social History Tobacco Use Types [...] [facility] [address] [facility] [address] [place] [address] Spencer Claire, CARD HAND 12/28/2024 1:40 PM EDT Office Visit [facility] [place] [facility] [address] [place] [address] Danii Manley MD [address] [place] [address] 01/21/2025 3:20 PM EST Office Visit [facility] [address] [facility] [address] [place] [address] Eliazar De Los Santos DPM [address] [facility] 5 [place] [address] 02/02/2025 3:00 PM EST Office Visit [facility] [address] [place] [address] Kala Lloyd MD [address] [place] [address] 03/02/2025 1:00 PM EST Office Visit [facility] [place] [facility] [address] [place] [place] [address] Laverne Carolina DO [address] [facility] [address] [place] [address] documented as of this encounter Visit Diagnoses Not on filedocumented in this encounter Additional Health Concerns Assessment Noted Time PHQ-9 Depression Total Score: 26 023 4:10 PM EDT documented as of this encounter Care Teams Infection Control Rn Relationship Specialty Start Date End Date Kala Lloyd MD [address] [place] [address] PCP - General Family Medicine 08/07/22 Kala Lloyd MD [address] [place] [address] PCP - [facility] Krysta L D RN 06/10/23 Kaylie Chavez NP [address] [place] [address] Nurse Practitioner Family Medicine 08/07/22 Lindy Valentino [facility] [address] [place] [address] Behavioral Health 03/18/24 Laverne Espinal LSW [address] [place] [address] Malthouse Laborer Family Medicine 09/07/24 documented as of this encounter
--- OUTSIDE RECORDS SUMMARY | 2024-12-14 13:09 | XMS_ITS | Encounter Summary ---
Demographics Address [address] [address] Mobile Phone Home Phone Email Address m Preferred Language en Marital Status Unmarried Mandaeism Affiliation Unknown Race White Ethnic Group Not or Lati no Author Organization [facility] Address [address] [place] [address] Care Team Providers Care President And Ceo Name Role Phone Kala Lloyd MD Primary Care Provider [phone] Kaylie Chavez FUEL TRUCK DRIVER Unavailable Kala Lloyd MD Unavailable Lindy Valentino [facility] Unavailable [phone] Laverne Espinal BURN TABLE OPERATOR Unavailable [phone] Encounter Details Date Type Department Care Team (Late st Contact Info) Description 03/05/2024 Orders Only [facility] Family Medicine [address] [place] [address] Kala Lloyd MD [address] [place] [address] Social History Tobacco Use Types [...] Date Recorded Patient Health Questionnaire-2 Score 6 07/01/2023 Education Answer Date Recorded What is the [...] 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 No t on file documented as of this encounter Plan of Treatment Upcoming Encounters Date Type Department Care Team ([facility] st Contact Info) Description 12/22/2024 2:00 PM EDT Treatment [facility] [address] [facility] [address] [place] [address] Claire Palmer, DANITA 12/28/2024 1:40 PM EDT Office Visit [facility] [facility] [address] [place] [address] Danii Manley MD [address] [place] [address] 01/21/2025 3:20 PM EST Office Visit [facility] [address] [facility] 120 [place] [address] Eliazar De Los Santos, DPAvtar [address] [facility] 5 [place] [address] 02/02/2025 3:00 PM EST Office Visit [facility] [address] [place] [address] Kala Lloyd MD [address] [place], [place] [address] 03/02/2025 1:00 PM EST Office Visit [facility] [facility] [address] [facility] 230 [place] [address] Laverne Carolina, [address] [place] [address] documented as of this encounter Procedures Procedure Name Priority Date/Time Associated Diagnosis Comments DIABETIC RETINOPATHY SCREENING - OU - BOTH EYES Routine 02/25/2024 8:04 AM EST documented in this encounter Results * Diabetic Retinopathy Screening - OU - Both Eyes (02/25/2024 8:04 AM EST) Anatomical Region Laterality Modality Head Other us Kala Lloyd MD OPHTH PHOTOGRAPHY Final Result documented in this encounter Visit Diagnoses Not on filedocumented in this encounter Additional Health Concerns Assessment Noted Time PHQ-9 Depression Total Score: 22 024 3:54 PM EDT documented as of this encounter Care Teams President And Ceo Relationship Specialty Start Date End Date Kala Lloyd MD [address] [place] [address] PCP - General Family Medicine 08/07/22 Kala Lloyd MD [address] [place] [address] PCP - LIANA Chaparro BOARD MILL SUPERVISOR 06/10/23 Kaylie Chavez, FUEL TRUCK DRIVER [address] [place] [address] Nurse Practitioner Family Medicine 08/07/22 Lindy Valentino [facility] [address] [place] [address] Behavioral Health 03/18/24 Laverne Espinal LSW [address] [facility] [place] [address] Paste Up Artist Apprentice Family Medicine 09/07/24 documented as of this encounter
--- OUTSIDE RECORDS SUMMARY | 2024-12-14 13:09 | XMS_ITS | Encounter Summary ---
Demographics Address [address] [address] Mobile Phone Home Phone Email Address m Preferred Language en Marital Status Unmarried Baptism Affiliation Unknown Race White Ethnic Group Not or Lati no Author Organization [facility] Address [address] [place] [address] Care Team Providers Care Round Kiln Drawer Name Role Phone Kala Lloyd MD Primary Care Provider [phone] Kaylie Chavez BELTING CUTTER Unavailable Kala Lloyd MD Unavailable Lindy Valentino [facility] Unavailable Laverne Espinal [facility] Unavailable [phone] Encounter Details Date Type Department Care Team (Late st Contact Info) Description 07/14/2024 Orders Only [facility] [address] [facility] 230 [place] [address] Laverne Carolina, [address] [facility] 230 [place] [address] Social History Tobacco Use Types Packs/Day Years [...] 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 st Contact Info) Description 12/22/2024 2:00 PM EDT Treatment [facility] [address] [place] [address] Claire Palmer PTA 12/28/2024 1:40 PM EDT Office Visit [facility] [facility] [address] [place] [address] Danii Manley MD [address] [place] [address] 01/21/2025 3:20 PM EST Office Visit [facility] [address] [place] [address] Eliazar De Los Santos DPM [address] [facility] 5 [place] [address] 02/02/2025 3:00 PM EST Office Visit [facility] [address] [place] [address] Kala Lloyd MD [address] [place], [place] [address] 03/02/2025 1:00 PM EST Office Visit [facility] [address] [place] [address] Laverne Carolina DO [address] [place] [address] documented as of this encounter Procedures Procedure Name Priority Date/Time Associated Diagnosis Comments DIABETIC RETINOPATHY SCREENING - OU - BOTH EYES Routine 06/23/2024 4:14 PM EDT documented in this encounter Results * (ABNORMAL) Diabetic Retinopathy Screening - OU - Both Eyes (06/23/2024 4:14 PM EDT) Anatomical Region Laterality Modality Head Other us Laverne Carolina DO OPHTH PHOTOGRAPHY Final Re sult documented in this encounter Visit Diagnoses Not on filedocumented in this encounter Additional Health Concerns Assessment Noted Time PHQ-9 Depression Total Score: 22 024 3:54 PM EDT documented as of this encounter Care Teams Round Kiln Drawer Relationship Specialty Start Date End Date Kala Lloyd MD [address] [place] [address] PCP - General Family Medicine 08/07/22 Kala Lloyd MD [address] [facility] [place] [address] PCP - SOTOS Krysta OPTICAL FABRICATION TECHNICIAN 06/10/23 Kaylie Chavez NP [address] [place] [address] Nurse Practitioner Family Medicine 08/07/22 Lindy Valentino [facility] [address] [place] [address] Behavioral Health 03/18/24 Laverne Espinal LSW [address] [facility] [place] [address] Wet Mix Operator Family Medicine 09/07/24 documented as of this encounter
--- OUTSIDE RECORDS SUMMARY | 2024-12-14 13:09 | XMS_ITS | Encounter Summary ---
Demographics Address [address] [address] Mobile Phone Home Phone Email Address m Preferred Language en Marital Status Unmarried Uatsdin Affiliation Unknown Race White Ethnic Group Not or Lati no Author Organization [facility] Address [address] [place] [address] Care Team Providers Care Clean Up Supervisor Name Role Phone Kala Lloyd MD Primary Care Provider [phone] Kaylie Chavez DISTRIBUTION SUPERVISOR Unavailable Kala Lloyd MD Unavailable Lindy Valentino [facility] Unavailable [phone] Laverne Espinal MICROBIOLOGY LAB TECHNICIAN Unavailable [phone] Encounter Details Date Type Department Care Team (Late st Contact Info) Description 09/28/2022 Orders Only [facility] [address] [place] [address] Kala Lloyd MD [address] [place] [address] Social History Tobacco Use Types [...] [facility] [address] [facility] [address] [place] [address] Claire Palmer, SPRIGGER 12/28/2024 1:40 PM EDT Office Visit [facility] [address] [place] [address] Danii Manley MD [address] [place] [address] 01/21/2025 3:20 PM EST Office Visit [facility] [address] [facility] 120 [place] [address] Eliazar De Los Santos DPM [address] [facility] 5 [place] [address] 02/02/2025 3:00 PM EST Office Visit [facility] [address] [place] [address] Kala Lloyd MD [address] [place] [address] 03/02/2025 1:00 PM EST Office Visit [facility] [address] [facility] 230 [place] [address] Laverne Carolina DO [address] [facility] 230 [place] [address] documented as of this encounter Visit Diagnoses Not on filedocumented in this encounter Additional Health Concerns Assessment Noted Time PHQ-9 Depression Total Score: 26 023 4:10 PM EDT documented as of this encounter Care Teams Clean Up Supervisor Relationship Specialty Start Date End Date Kala Lloyd MD [address] [place] [address] PCP - General Family Medicine 08/07/22 Kala Lloyd MD [address] [place] [address] PCP - [facility] Krysta CONTACT ACID PLANT OPERATOR HELPER 06/10/23 Kaylie Chavez NP [address] [place] [address] Nurse Practitioner Family Medicine 08/07/22 Lindy Valentino [facility] [address] [place] [address] Behavioral Health 03/18/24 Lavrene Espinal LSW [address] [place] [address] Airport Manager Family Medicine 09/07/24 documented as of this encounter
--- OUTSIDE RECORDS SUMMARY | 2024-12-14 13:09 | XMS_ITS | Encounter Summary ---
Demographics Address [address] [address] Mobile Phone Home Phone Email Address m Preferred Language en Marital Status Unmarried Rastafari Affiliation Unknown Race White Ethnic Group Not or Lati no Author Organization [facility] Address [address] [place] [address] Care Team Providers Care Child Welfare Assistant Name Role Phone Kala Lloyd MD Primary Care Provider [phone] Kaylie Chavez OCCUPATIONAL THERAPY DEPARTMENT CHAIR Unavailable Kala Lloyd MD Unavailable Lindy Valentino [facility] Unavailable Laverne Espinal CAUSTIC PURIFICATION OPERATOR Unavailable [phone] Encounter Details Date Type Department Care Team (Late st Contact Info) Description 12/30/2023 Orders Only [facility] [address] [place] [address] Danii Manley MD [address] [place] [address] Social History Tobacco Use Types Packs/Day Years [...] Industry 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 Date 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 Not on file No t on file documented as of this encounter Plan of Treatment Upcoming Encounters Date Type Department Care Team ([facility] st Contact Info) Description 12/22/2024 2:00 PM EDT Treatment [facility] [address] [place] [address] Claire Palmer PTA 12/28/2024 1:40 PM EDT Office Visit [facility] [facility] [address] [place] [address] Danii Manley MD [address] [place] [address] 01/21/2025 3:20 PM EST Office Visit [facility] [address] [place] [address] Eliazar De Los Santos DPM 3006 [facility] 5 [place] [address] 02/02/2025 3:00 PM EST Office Visit [facility] [address] [place] [address] Kala Lloyd MD [address] [place], [place] [address] 03/02/2025 1:00 PM EST Office Visit [facility] [address] [place] [address] Laverne Carolina DO [address] [place] [address] documented as of this encounter Procedures Procedure Name Priority Date/Time Associated Diagnosis Comments MISC TEST ([facility] ONLY) Routine 12/30/2023 1:37 PM EDT MICROALBUMIN, URINE, 24 HOUR Routine 12/30/2023 8:13 AM EDT PROTEIN, BODY FLUID Routine 12/30/2023 8:13 AM EDT documented in this encounter Results * MISC TEST ([facility] ONLY) (12/30/2023 1:37 PM EDT) us Danii Manley MD LAB BLOOD ORDERABLES Final Re sult * Protein, body fluid (12/30/2023 8:13 AM EDT) Body Fluid us Danii Manley MD LAB BODY FLUIDS AND STOOLS OR DERABLES Final Result * Microalbumin, urine, 24 hour (12/30/2023 8:13 AM EDT) Urine Urine specimen obtained by clean catch procedure / Unknown us Danii Manley MD LAB URINE ORDERABLES Final Re sult documented in this encounter Visit Diagnoses Not on filedocumented in this encounter Additional Health Concerns Assessment Noted Time PHQ-9 Depression Total Score: 22 024 3:54 PM EDT documented as of this encounter Care Teams Child Welfare Assistant Relationship Specialty Start Date End Date Kala Lloyd MD [address] [facility] [address] [place], [place] [phone] PCP - General Family Medicine 08/07/22 Kala Lloyd MD [address] [facility] [place] [place], [place] [phone] PCP - [facility] Krysta [facility] 06/10/23 Kaylie Chavez, AKILAH [address] [place] [address] Nurse Practitioner Family Medicine 08/07/22 Lindy Valentino, [facility] [address] [place] [address] Behavioral Health 03/18/24 Laverne Espinal LSW [address] [place] [address] Line Fixer Family Medicine 09/07/24 documented as of this encounter
--- OUTSIDE RECORDS SUMMARY | 2024-12-14 13:09 | XMS_ITS | Encounter Summary ---
Demographics Address [address] [address] Mobile Phone Home Phone Email Address m Preferred Language en Marital Status Unmarried Oriental Orthodox Affiliation Unknown Race White Ethnic Group Not or Lati no Author Organization [facility] Address [address] [place] [address] Care Team Providers Care Business Administration Instructor Name Role Phone Kala Lloyd MD Primary Care Provider [phone] Kaylie Chavez PROMOTIONS ASSISTANT SALES MARKETING Unavailable Kala Lloyd MD Unavailable Lindy Valentino [facility] Unavailable Laverne Espinal COMMERCIAL PHOTOGRAPHER Unavailable [phone] Encounter Details Date Type Department Care Team (Late st Contact Info) Description 12/26/2023 Orders Only [facility] [facility] [address] [place] [address] Danii Manley MD [address] [place] [address] Social History Tobacco Use Types [...] 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 Date 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 t on file documented as of this encounter Plan of Treatment Upcoming Encounters Date Type Department Care Team ([facility] st Contact Info) Description 12/22/2024 2:00 PM EDT Treatment [facility] [address] [place] [address] Claire Palmer PTA 12/28/2024 1:40 PM EDT Office Visit [facility] [address] [place] [address] Danii Manley MD [address] [place] [address] 01/21/2025 3:20 PM EST Office Visit [facility] [address] [place] [address] Eliazar De Los Santos DPM [address] [facility] [place] [address] 02/02/2025 3:00 PM EST Office Visit [facility] 14[address] [place] [address] Kala Lloyd MD 1479 [place], [place] [address] 03/02/2025 1:00 PM EST Office Visit [facility] [address] [place] [address] Laverne Carolina DO [address] [place] [address] documented as of this encounter Procedures Procedure Name Priority Date/Time Associated Diagnosis Comments PTH, INTACT AND CALCIUM Routine 12/26/2023 2:10 PM EDT HEPATIC FUNCTION PANEL Routine 12/26/2023 2:10 PM EDT documented in this encounter Results * Hepatic function panel (12/26/2023 2:10 PM EDT) Blood Venous blood specimen / Unknown Danii Manley MD LAB BLOOD ORDERABLES Final Re sult * PTH, intact and calcium (12/26/2023 2:10 PM EDT) Blood Venous blood specimen / Unknown Danii Manley MD LAB BLOOD ORDERABLES Final Re sult documented in this encounter Visit Diagnoses Not on filedocumented in this encounter Additional Health Concerns Assessment Noted Time PHQ-9 Depression Total Score: 22 024 3:54 PM EDT documented as of this encounter Care Teams Business Administration Instructor Relationship Specialty Start Date End Date Kala Lloyd MD [address] [place] [address] PCP - General Family Medicine 08/07/22 Kala Lloyd MD [address] [place] [address] PCP - [facility] Krysta DRUPAL PROGRAMMER 06/10/23 Kaylie Chavez NP [address] [facility] [place] [address] Nurse Practitioner Family Medicine 08/07/22 Lindy Valentino [facility] [address] [place] [address] Behavioral Health 03/18/24 Laverne Espinal, LUCERO [address] [place] [address] Firer Locomotive Crane Family Medicine 09/07/24 documented as of this encounter
--- OUTSIDE RECORDS SUMMARY | 2024-12-14 13:09 | XMS_ITS | Encounter Summary ---
Demographics Address [address] [address] Mobile Phone Home Phone Email Address m Preferred Language en Marital Status Unmarried Uatsdin Affiliation Unknown Race White Ethnic Group Not or Lati no Author Organization [facility] Address [address] [facility] [place] [address] Care Team Providers Care Salon Manager Name Role Phone Kala Lloyd MD Primary Care Provider [phone] Kaylie Chavez ELECTRONICS REPAIR TECHNICIAN Unavailable Kala Lloyd MD Unavailable Lindy Valentino [facility] Unavailable Laverne Espinal QC ANALYST Unavailable [phone] Encounter Details Date Type Department Care Team (Late st Contact Info) Description 06/25/2024 Orders Only [facility] [address] [place] [address] Danii Manley MD [address] [place] [address] Social History Tobacco Use Types [...] Industry 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 on file No t on file documented as of this encounter Plan of Treatment Upcoming Encounters Date Type Department Care Team ([facility] Contact Info) Description 12/22/2024 2:00 PM EDT Treatment [facility] [address] [place] [address] Claire Palmer PTA 12/28/2024 1:40 PM EDT Office Visit [facility] [address] [place] [address] Danii Manley MD [address] [place] [address] 01/21/2025 3:20 PM EST Office Visit [facility] [address] [place] [address] Eliazar De Los Santos, DPAvtar [address] [facility] [place] [address] 02/02/2025 3:00 PM EST Office Visit [facility] [address] [place] [address] Kala Lloyd MD [address] [place], [place] [address] 03/02/2025 1:00 PM EST Office Visit [facility] [address] [place] [address] EarnestLaverne molina, DO [address] [place] [address] documented as of this encounter Procedures Procedure Name Priority Date/Time Associated Diagnosis Comments VITAMIN D Routine 06/25/2024 1:30 PM EDT PTH, INTACT AND CALCIUM Routine 06/25/2024 1:30 PM EDT MAGNESIUM Routine 06/25/2024 1:30 PM EDT RENAL FUNCTION PANEL Routine 06/25/2024 1:30 PM EDT documented in this encounter Results * Renal function panel (06/25/2024 1:30 PM EDT) Blood Venous blood specimen / Unknown Danii Manley MD LAB BLOOD ORDERABLES Final Re sult * PTH, intact and calcium (06/25/2024 1:30 PM EDT) Blood Venous blood specimen / Unknown us Danii Manley MD LAB BLOOD ORDERABLES Final Re sult * Magnesium (06/25/2024 1:30 PM EDT) Blood Venous blood specimen / Unknown us Danii Manley MD LAB BLOOD ORDERABLES Final Re sult * VITAMIN D (06/25/2024 1:30 PM EDT) us Danii Manley MD LAB BLOOD ORDERABLES Final Re sult documented in this encounter Visit Diagnoses Not on filedocumented in this encounter Additional Health Concerns Assessment Noted Time PHQ-9 Depression Total Score: 22 04/2 024 3:54 PM EDT documented as of this encounter Care Teams Salon Manager Relationship Specialty Start Date End Date Kala Lloyd MD [address] [place], [place] [phone] PCP - General Family Medicine 08/07/22 Kala Lloyd MD [address] [place], [place] [address] PCP - [facility] Krysta [facility] 06/10/23 Kaylie Chavez, ELECTRONICS REPAIR TECHNICIAN [facility] [place] [address] Nurse Practitioner Family Medicine 08/07/22 Lindy Valentino [facility] [address] [address] Behavioral Health 03/18/24 Laverne Espinal, LUCERO [address] [place] [address] Pathology Secretary Family Medicine 09/07/24 documented as of this encounter
--- OUTSIDE RECORDS SUMMARY | 2024-12-14 13:09 | XMS_ITS | Encounter Summary ---
Author Organization [facility] tem Address [id number] [place] [address] Care Team Providers Care Hydraulic Corrugating Machine Operator Name Role Phone EarnestLaverne molina Avtar MISHRA Primary Care Provider [phone] Encounter Details Date Type Department Care Team (Late st Contact Info) Description 11/19/2024 Telephone [facility] [address] [place] [address] Louise Hale, RN Social History Tobacco Use Types Packs/Day Years [...] PM EST documented as of this encounter Miscellaneous Notes * Telephone Encounter - Louise Hale RN - 11/19/2024 1:26 PM EDT Received clearance to hold trulicity x7 days Needs insurance auth if not done Needs scheduled * Telephone Encounter - Esperanza Edwards CNA - 11/19/2024 1:26 PM EDT Radha is scheduled for 12/11. She will hold Trulicity after 12/03 * Telephone Encounter - Louise Hale RN - 11/19/2024 1:26 PM EDT Call placed to remind pt not to take trulicity after today until after 12/11/24 procedure. PVU documented in this encounter Plan of Treatment Upcoming Encounters Date Type Department Care Team (Late st Contact Info) Description 01/05/2025 1:15 PM EDT Office Visit [facility] [address] [place] [address] Ricky Miles PA [address] [place] [address] Scheduled Procedures Name Priority Associated Diagnoses Date/Ti me INJECTION BLOCK SACROILIAC JOINT Disorder of sacrum documented as of this encounter Visit Diagnoses Not on filedocumented in this encounter Care Teams Hydraulic Corrugating Machine Operator Relationship Specialty Start Date End Date Laverne Carolina DO [address] [place] [address] PCP - General Family Medicine 11/17/24 documented as of this encounter
--- OUTSIDE RECORDS SUMMARY | 2024-12-14 13:09 | XMS_ITS ---
Demographics Address [address] [address] Mobile Phone Home Phone Email Address m Preferred Language en Marital Status Unmarried Mormonism Affiliation Unknown Race White Ethnic Group Not or Lati no Author Organization [facility] Address [address] [place] [address] Care Team Providers Care Dough Maker Name Role Phone Kala Lloyd MD Primary Care Provider [phone] Kaylie Chavez SHUTTLE BUS DRIVER Unavailable Kala Lloyd MD Unavailable iLndy Valentino [facility] Unavailable Laverne Espinal Unavailable [phone] Chronic Care Management (CCM) Status:Enrolled (Active) Start date:09/07/2024 Enrollment date:09/07/2024 Enrollment reason:Identified from transitional care managment Overview Please assess for Care Management needs. 09/07/24, 4:30 PM - LUCERO Ramirez- Patient gives verbal consent to be enrolled in CCM Program and understands there could be a bill for this service. Currently CCM Bill NO with [place] [employer] Case Team Name Relationship Phone Laverne SALCEDOW(Responsible Staff) [facility] [place] [phone] Continued Care and Services Coordination
--- OUTSIDE RECORDS SUMMARY | 2024-12-14 13:09 | XMS_ITS | Encounter Summary ---
Demographics Address [address] [address] Mobile Phone Home Phone Email Address m Preferred Language en Marital Status Unmarried Anabaptism Affiliation Unknown Race White Ethnic Group Not or Lati no Author Organization [facility] Address [address] [place] [address] Care Team Providers Care Physiotherapy Aide Name Role Phone Kala Lloyd MD Primary Care Provider [phone] Kaylie Chavez LEATHER CARTRIDGE BELT MAKER Unavailable Kala Lloyd MD Unavailable Lindy Valentino [facility] Unavailable [phone] Laverne Espinal INSURANCE UNDERWRITER SALES Unavailable [phone] Encounter Details Date Type Department Care Team (Late st Contact Info) Description 09/28/2022 Abstract [facility] [address] [place] [address] Farrah Romo LPN Social History Tobacco Use Types Packs/Day Years [...] Therapy [address] [place] [address] Claire Palmer, AIRPLANE PATROL PILOT 12/28/2024 1:40 PM EDT Office Visit [facility] [facility] [address] [place] [address] Danii Manley MD [address] [place] [address] 01/21/2025 3:20 PM EST Office Visit [facility] [address] [place] [address] Eliazar De Los Santos, DPM 3[address] [facility] 5 [place] [address] 02/02/2025 3:00 PM EST Office Visit [facility] 14[address] [place] [address] Kala Lloyd MD [address] [place] [address] 03/02/2025 1:00 PM EST Office Visit [facility] [address] [facility] [address] [place] [address] Laverne Carolina DO [address] [facility] [address] [place] [address] documented as of this encounter Visit Diagnoses Not on filedocumented in this encounter Additional Health Concerns Assessment Noted Time PHQ-9 Depression Total Score: 26 023 4:10 PM EDT documented as of this encounter Care Teams Physiotherapy Aide Relationship Specialty Start Date End Date Kala Lloyd MD [address] [place], [place] [address] PCP - General Family Medicine 08/07/22 Kala Lloyd MD [address] [place] [address] PCP - [facility] Krysta [facility] 06/10/23 Kaylie Chavez, AKILAH [address] [place] [address] Nurse Practitioner Family Medicine 08/07/22 Lindy Valentino, [facility] [address] [place] [address] Behavioral Health 03/18/24 Laverne Espinal LSW [address] [place] [address] Medical Associate Family Medicine 09/07/24 documented as of this encounter
--- OUTSIDE RECORDS SUMMARY | 2024-12-14 13:09 | XMS_ITS | Encounter Summary ---
Demographics Address [address] [address] Mobile Phone Home Phone Email Address m Preferred Language en Marital Status Unmarried Lutheran Affiliation Unknown Race White Ethnic Group Not or Lati no Author Organization [facility] Address [address] [place] [address] Care Team Providers Care Metal Baler Name Role Phone Kala Lloyd MD Primary Care Provider [phone] Kaylie Chavez STEAMSHIP AGENT Unavailable Kala Lloyd MD Unavailable Lindy Valentino [facility] Unavailable Laverne Espinal [facility] Unavailable [phone] Encounter Details Date Type Department Care Team (Late st Contact Info) Description 09/05/2022 Abstract [facility] Medicine [address] [place] [address] Kaylie Chavez STEAMSHIP AGENT Social History Tobacco Use Types Packs/Day Years [...] Therapy [address] [place] [address] Claire Palmer, OFFICE WORKFORCE PLANNER 12/28/2024 1:40 PM EDT Office Visit [facility] [place] [facility] [address] [place] [address] Danii Manley MD [address] [place] [address] 01/21/2025 3:20 PM EST Office [facility] [address] [place] [address] Eliazar De Los Santos, DPM 3006 [facility] 5 [place] [address] 02/02/2025 3:00 PM EST Office Visit [facility] [place] [facility] [address] [place] [address] Kala Lloyd MD [address] [place] [address] 03/02/2025 1:00 PM EST Office Visit [facility] [address] [facility] [address] [place] [address] Laverne Carolina DO [address] [facility] [address] [place] [address] documented as of this encounter Visit Diagnoses Not on filedocumented in this encounter Additional Health Concerns Assessment Noted Time PHQ-9 Depression Total Score: 26 023 4:10 PM EDT documented as of this encounter Care Teams Metal Baler Relationship Specialty Start Date End Date Kala Lloyd MD [address] [place], [place] [phone] PCP - General Family Medicine 08/07/22 Kala Lloyd MD [address] [place] [address] PCP - SOT[facility] Krysta [facility] 06/10/23 Kaylie Chavez, AKILAH [address] [place] [address] Nurse Practitioner Family Medicine 08/07/22 Lindy Valentino, [facility] [address] [place] [address] Behavioral Health 03/18/24 Laverne Espinal LSW [address] [place] [address] Dairy Frozen Manager Family Medicine 09/07/24 documented as of this encounter
--- OUTSIDE RECORDS SUMMARY | 2024-12-14 13:09 | XMS_ITS | Encounter Summary ---
Demographics Address [address] [address] Mobile Phone Home Phone Email Address m Preferred Language en Marital Status Unmarried Lutheran Affiliation Unknown Race White Ethnic Group Not or Lati no Author Organization [facility] Address [address] [place] [address] Care Team Providers Care Dessert Cup Machine Feeder Name Role Phone Kala Lloyd MD Primary Care Provider [phone] Kaylie Chavez NIGHT ASSISTANT Unavailable Kala Lloyd MD Unavailable Lindy Valentino [facility] Unavailable Laverne Espinal [facility] Unavailable [phone] Encounter Details Date Type Department Care Team (Late st Contact Info) Description 10/28/2023 Orders Only [facility] Family Medicine [address] [place] [address] Kaylie Chavez NIGHT ASSISTANT Social History Tobacco Use Types Packs/Day Years [...] Industry 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 Date 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 file No t on file documented as of this encounter Plan of Treatment Upcoming Encounters Date Type Department Care Team (Late st Contact Info) Description 12/22/2024 2:00 PM EDT Treatment [facility] [address] [place] [address] Claire Palmer, DANITA 12/28/2024 1:40 PM EDT Office Visit [facility] [place] [facility] [address] [place] [address] Danii Manley MD [address] [place] [address] 01/21/2025 3:20 PM EST Office Visit [facility] [address] [place] [address] Eliazar De Los Santos, DPM 3006 [facility] 5 [place] [address] 02/02/2025 3:00 PM EST Office Visit [facility] [address] [place] [address] Kala Lloyd MD [address] [place], [place] [address] 03/02/2025 1:00 PM EST Office Visit [facility] [place] [facility] [address] [place] [address] Laverne Carolina, DO [address] [place] [address] documented as of this encounter Procedures Procedure Name Priority Date/Time Associated Diagnosis Comments DIABETIC RETINOPATHY SCREENING - OU - BOTH EYES Routine 10/28/2023 3:11 PM EDT documented in this encounter Results * Diabetic Retinopathy Screening - OU - Both Eyes (10/28/2023 3:11 PM EDT) Anatomical Region Laterality Modality Head Other Kaylie Chavez NIGHT ASSISTANT OPHTH PHOTOGRAPHY Final Result documented in this encounter Visit Diagnoses Not on filedocumented in this encounter Additional Health Concerns Assessment Noted Time PHQ-9 Depression Total Score: 22 024 3:54 PM EDT documented as of this encounter Care Teams Dessert Cup Machine Feeder Relationship Specialty Start Date End Date Kala Lloyd MD [address] [place] [address] PCP - General Family Medicine 08/07/22 Kala Lloyd MD [address] [place] [address] PCP - SOTOS Krysta VOLUNTEER SPECIALIST 06/10/23 Kaylie Chavez, AKILAH [address] [place] [address] Nurse Practitioner Family Medicine 08/07/22 Lindy Valentino [facility] [address] [place] [address] Behavioral Health 03/18/24 Laverne Espinal LSW [address] [place] [address] Postal Sorting Officer Family Medicine 09/07/24 documented as of this encounter
--- OUTSIDE RECORDS SUMMARY | 2024-12-14 13:09 | XMS_ITS | Encounter Summary ---
Demographics Address [address] [address] Mobile Phone Home Phone Email Address m Preferred Language en Marital Status Unmarried Religion Affiliation Unknown Race White Ethnic Group Not or Lati no Author Organization [facility] Address [address] [place] [address] Care Team Providers Care Cap And Stud Machine Operator Name Role Phone Kala Lloyd MD Primary Care Provider [phone] Kaylie Chavez STRIPPER AND TAPER Unavailable Kala Lloyd MD Unavailable Lindy Valentino [facility] Unavailable [phone] Laverne Espinal [facility] Unavailable [phone] Encounter Details Date Type Department Care Team (Late st Contact Info) Description 10/15/2022 Abstract [facility] [address] [facility] 230 [place] [address] Laverne Carolina, [address] [facility] 230 [place] [address] Social History Tobacco Use Types Packs/Day Years [...] [facility] [address] [facility] [address] [place] [address] Claire Palmer, DANITA 12/28/2024 1:40 PM EDT Office Visit [facility] [address] [place] [address] Danii Manley MD [address] [place] [address] 01/21/2025 3:20 PM EST Office Visit [facility] 112 [facility] 120 [place] [address] Eliazar De Los Santos DPM [address] [facility] 5 [place] [address] 02/02/2025 3:00 PM EST Office Visit [facility] [address] [place] [address] Kala Lloyd MD [address] [place] [address] 03/02/2025 1:00 PM EST Office Visit [facility] [address] [facility] 230 [place] [address] Laverne Carolina DO [address] [facility] [address] [place] [address] documented as of this encounter Visit Diagnoses Not on filedocumented in this encounter Additional Health Concerns Assessment Noted Time PHQ-9 Depression Total Score: 26 023 4:10 PM EDT documented as of this encounter Care Teams Cap And Stud Machine Operator Relationship Specialty Start Date End Date Kala Lloyd MD [address] [place] [address] PCP - General Family Medicine 08/07/22 Kala Lloyd MD [address] [place] [address] PCP - [facility] K[facility]a [facility] 06/10/23 Kaylie Chavez NP [address] [place] [address] Nurse Practitioner Family Medicine 08/07/22 Lindy Valentino, [facility] [address] [place] [address] Behavioral Health 03/18/24 Laverne Espinal LSW [address] [place] [address] Electric Distribution Engineer Family Medicine 09/07/24 documented as of this encounter
--- OUTSIDE RECORDS SUMMARY | 2024-12-14 13:09 | XMS_ITS | Encounter Summary ---
Demographics Address [address] [address] Mobile Phone Home Phone Email Address m Preferred Language en Marital Status Unmarried Bahai Affiliation Unknown Race White Ethnic Group Not or Lati no Author Organization [facility] Address [address] [place] [address] Care Team Providers Care Sofa Back Upholsterer Name Role Phone Kala Lloyd MD Primary Care Provider [phone] Kaylie Chavez CMM INSPECTOR Unavailable Kala Lloyd MD Unavailable Lindy Valentino [facility] Unavailable Laverne Espinal EXPENSE CLERK Unavailable [phone] Encounter Details Date Type Department Care Team (Late st Contact Info) Description 2022 [facility] [address] [place] [address] Kala Lloyd MD [address] [place] [address] Social History Tobacco Use Types [...] 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 Date 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 Not on file No t on file documented as of this encounter Plan of Treatment Upcoming Encounters Date Type Department Care Team (Late st Contact Info) Description 12/22/2024 2:00 PM EDT Treatment [facility] [address] [place] [address] Claire Palmer, AGRICULTURAL SERVICE TECHNICIAN 12/28/2024 1:40 PM EDT Office Visit [facility] [address] [place] [address] Danii Manley MD [address] [place] [address] 01/21/2025 3:20 PM EST Office Visit [facility] [address] [place] [address] Eliazar De Los Santos, DPAvtar [address] [facility] 5 [place] [address] 02/02/2025 3:00 PM EST Office Visit [facility] [address] [place] [address] Kala Lloyd MD [address] [place], [place] [address] 03/02/2025 1:00 PM EST Office Visit [facility] [address] [facility] 230 [place] [address] Laverne Carolina, [address] [place] [address] documented as of this encounter Visit Diagnoses Not on filedocumented in this encounter Additional Health Concerns Assessment Noted Time PHQ-9 Depression Total Score: 26 023 4:10 PM EDT documented as of this encounter Care Teams Sofa Back Upholsterer Relationship Specialty Start Date End Date Kala Lloyd MD [address] [place] [address] PCP - General Family Medicine 08/07/22 Kala Lloyd MD [address] [place] [address] PCP - [facility] Krysta [facility] 06/10/23 Kaylie Chavez NP [facility] [place] [address] Nurse Practitioner Family Medicine 08/07/22 Lindy Valentino [facility] [address] [place] [address] Behavioral Health 03/18/24 Laverne Espinal, EXPENSE CLERK [address] [place] [address] Deoiling Machine Operator Family Medicine 09/07/24 documented as of this encounter
--- OUTSIDE RECORDS SUMMARY | 2024-12-14 13:09 | XMS_ITS | Encounter Summary ---
Demographics Address [address] [address] Mobile Phone Home Phone Email Address m Preferred Language en Marital Status Unmarried Pentecostalism Affiliation Unknown Race White Ethnic Group Not or Lati no Author Organization [facility] Address [address] [facility] [place] [address] Care Team Providers Care Health Professor Name Role Phone Kala Lloyd MD Primary Care Provider [phone] Kaylie Chavez COMPLETIONS ENGINEER Unavailable Kala Lloyd MD Unavailable Lindy Valentino [facility] Unavailable Laverne Espinal CIVIL DEFENSE DIRECTOR Unavailable [phone] Encounter Details Date Type Department Care Team (Late st Contact Info) Description 2023 Orders Only [facility] [address] [place] [address] Danii Manley MD [address] [place] [address] Social History Tobacco Use Types [...] Industry 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 Date 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 Not on file No t on file documented as of this encounter Plan of Treatment Upcoming Encounters Date Type Department Care Team ([facility] st Contact Info) Description 12/22/2024 2:00 PM EDT Treatment [facility] [address] [place] [address] Claire Palmer PTA 12/28/2024 1:40 PM EDT Office Visit [facility] [address] [place] [address] Danii Manley MD [address] [place] [address] 01/21/2025 3:20 PM EST Office Visit [facility] [address] [place] [address] Eliazar De Los Santos DPM [address] [facility] 5 [place] [address] 02/02/2025 3:00 PM EST Office Visit [facility] [address] [place] [address] Kala Lloyd MD [address] [place], [place] [address] 03/02/2025 1:00 PM EST Office Visit [facility] [address] [place] [address] Laverne Carolina DO [address] [place] [address] documented as of this encounter Procedures Procedure Name Priority Date/Time Associated Diagnosis Comments BASIC METABOLIC PANEL WITH ANION GAP Routine 2023 1:53 PM EDT VITAMIN D, 25-HYDROXY Routine 2023 1:53 PM EDT documented in this encounter Results * BASIC METABOLIC PANEL WITH ANION GAP (2023 1:53 PM EDT) Danii Manely MD LAB BLOOD ORDERABLES Final Re sult * VITAMIN D, 25-HYDROXY (2023 1:53 PM EDT) Danii Manley MD LAB BLOOD ORDERABLES Final Re sult documented in this encounter Visit Diagnoses Not on filedocumented in this encounter Additional Health Concerns Assessment Noted Time PHQ-9 Depression Total Score: 22 04/2 024 3:54 PM EDT documented as of this encounter Care Teams Health Professor Relationship Specialty Start Date End Date Kala Lloyd MD [address] [place] [address] PCP - General Family Medicine 08/07/22 Kala Lloyd MD [address] [place] [address] PCP - [facility] Krysta W[facility] 06/10/23 Kaylie Chavez NP [address] [place] [address] Nurse Practitioner Family Medicine 08/07/22 Lindy Valentino [facility] [address] [place] [address] Behavioral Health 03/18/24 Laverne Espinal, LUCERO [address] [place] [phone] Polymerization Oven Operator Family Medicine 09/07/24 documented as of this encounter
--- OUTSIDE RECORDS SUMMARY | 2024-12-14 13:09 | XMS_ITS | Encounter Summary ---
Demographics Address [address] [address] Mobile Phone Home Phone Email Address m Preferred Language en Marital Status Unmarried Faith Affiliation Unknown Race White Ethnic Group Not or Lati no Author Organization [facility] Address [address] [place] [address] Care Team Providers Care Practice Or Student Teacher Name Role Phone Kala Lloyd MD Primary Care Provider [phone] Kaylie Chavez ODD JOBS DAY WORKER Unavailable Kala Llody MD Unavailable Lindy Valentino [facility] Unavailable Laverne Espinal [facility] Unavailable [phone] Encounter Details Date Type Department Care Team (Late st Contact Info) Description 08/04/2022 Abstract [facility] [address] [place] [address] Kaylie Chavez ODD JOBS DAY WORKER Social History Tobacco Use Types Packs/Day Years Used Date Smoking Tobacco: Every Day Cigarettes Tobacco Cessation:Ready to Q uit: Not Asked; Counseling Given: Not Answered Comments:Smokes 5 or less cigarettes per day. Alcohol Use Standard Drinks/Week Comments [...] Score Answer Date of Assessment Author 0 08/07/2022 4:09 PM EDT Reena Hemphill MA * Question Answer Date of Assessment Author Q1: How often do you have a drink containing alcohol? Never 08/07/2022 4:09 PM EDT Reena Hemphill MA Q2: How many drinks containing alcohol do you have on a typical day when you are drinking? Patient does not drink 08/07/2022 4:09 PM EDT Reena Hemphill MA Q3: How often do you have six or more drinks on one occasion? Never 08/07/2022 4:09 PM EDT Reena Hemphill MA * Over the past 2 weeks, how often have you been bothered by any of the following problems? Question Answer Date of Assessment Author Little interest or pleasure in doing things Nearly every day 08/07/2022 4:10 PM T Reena Hemphill MA Feeling down, depressed, or hopeless Nearly every day 08/07/2022 4:10 PM EDT Reena Hemphill MA Patient Health Questionnaire-2 Score 6 08/07/2022 4:10 PM EDT Reena Hemphill MA * Question Answer Date of Assessment Author Trouble falling or staying asleep, or sleeping too much Nearly every day 08/07/2022 4:10 PM T Reena Hemphill MA Feeling tired or having little energy More than half the days 08/07/2022 4:10 PM EDT Reena Hemphill MA Poor appetite or overeating Nearly every day 08/07/2022 4:10 PM T Reena Hemphill MA Feeling bad about yourself - or that you are a failure or have let yourself or your family down Nearly every day 08/07/2022 4:10 PM T Reena Hemphill MA Trouble concentrating on things, such as reading the newspaper or watching television Nearly every day 08/07/2022 4:10 PM EDT Reena Hemphill MA Moving or speaking so slowly that other people could have noticed? Or the opposite - being so fidgety or restless that you have been moving around a lot more than usual. Nearly every day 08/07/2022 4:10 PM EDT Reena Hemphill MA Thoughts that you would be better off or hurting yourself in some way Nearly every day 08/07/2022 4:10 PM EDT Reena Hemphill MA Patient Health Questionnaire-9 Score 26 08/07/2022 4:10 PM EDT Reena Hemphill MA * If you checked off any problems on this questionnaire so far, Question Answer Date of Assessment Author How difficult have these problems made it for you to do your work, take care of things at home, or get along with other people? Extremely difficult 08/07/2022 4:10 PM EDT Reena Hemphill MA documented as of this encounter Plan of Treatment Upcoming Encounters Date Type Department Care Team (Late st Contact Info) Description 12/22/2024 2:00 PM EDT Treatment [facility] [address] [place] [address] Claire Palmer PTA 12/28/2024 1:40 PM EDT Office Visit [facility] [address] [place] [address] Danii Manley MD [address] [place] [address] 01/21/2025 3:20 PM EST Office Visit [facility] [address] [place] [address] Eliazar De Los Santos DPM [address] [facility] 5 [place] [address] 02/02/2025 3:00 PM EST Office Visit [facility] [address] [facility] [place] [address] Kala Lloyd MD [address] [place] [address] 03/02/2025 1:00 PM EST [facility] [address] [place] [address] Laverne Carolina DO [address] [place] [address] documented as of this encounter Visit Diagnoses Not on filedocumented in this encounter Care Teams Practice Or Student Teacher Relationship Specialty Start Date End Date Kala Lloyd MD 14[address] [facility] [place] [address] PCP - General Family Medicine 08/07/22 Kala Lloyd MD [address] [place] [address] PCP - [facility] Krysta COMMUNICATIONS TECH 06/10/23 Kaylie Chaevz, ODD JOBS DAY WORKER [address] [place] [address] Nurse Practitioner Family Medicine 08/07/22 Lindy Valentino, [facility] [address] [facility] [address] [place] [address] Behavioral Health 03/18/24 Laverne Espinal LSW [address] [place] [address] Customer Acquisition Specialist Family Medicine 09/07/24 documented as of this encounter
--- OUTSIDE RECORDS SUMMARY | 2024-12-14 13:13 | XMS_ITS | CCD ---
Demographics Address [address] [address] Mobile Phone Home Phone Preferred Language en Marital Status Unknown Latter Day Affiliation Unknown Race White Ethnic Group Not or Lati no Author Organization [facility] Care Team Providers Care Veterinarian Poultry Name Role Phone Danis, Nir Unavailable KAYLIE CHAVEZ Primary Care Physician [phone] Rosina Salter Unavailable Unavailable KALA LLOYD Primary Care Physician [phone] Eliazar Pires Attending Unavailable Eliazar Pires Admitting Unavailable Eliazar Pires Attending Unavailable Eliazar Pires Admitting Unavailable Eliazar Pires Admitting Unavailable Eliazar Pires Attending Unavailable MD Kala Lloyd Primary Care Provider [phone] TAMMIE Chavez Referring Provider MD Isela Downs Attending Provider Peyton Hoskins Unavailable MD Kala Lloyd Primary Care Provider [phone] TAMMIE Chavez Referring Provider [phone] MD Isela Downs Attending Provider TAMMIE Chavez [...] Care Unavailable DANIS, NIR Consulting Unavailable Chavez, COILED COIL INSPECTOR Kaylie R Primary Care Provider MD Herrera Donahue Attending Provider MD Nir Horvath Attending Provider [phone] Prema COUGHLIN, [facility] Primary Care Provider Scott FIELD REIMBURSEMENT MANAGER, Kaylie R Unavailable Chavez, COILED COIL INSPECTOR Kaylie R Primary Care Provider MD Fermín Donahue Attending Provider [phone] Chavez COILED COIL INSPECTOR Kaylie R Primary Care Provider MD Fermín Donahue Attending Provider MD Jeovanny Mendes Attending Provider Chavez, Kaylie R Primary Care Unavailable Jeovanny Mendes Attending Unavailable Jeovanny Mendes Admitting Unavailable Chavez, COILED COIL INSPECTOR Kaylie R Primary Care Provider MD Fermín Donahue Attending Provider Prema COUGHLIN, [facility] Unavailable Chavez FIELD REIMBURSEMENT MANAGER, Kaylie R Unavailable [facility], Lindy K Unavailable Chavez COILED COIL INSPECTOR-ARTIST MODEL, Kaylie R Primary Care Provider Chavez COILED COIL INSPECTOR-ARTIST MODEL, Kaylie R Primary Care Provider Chavez COILED COIL INSPECTOR, Kaylie R Primary Care Provider Fermín Donahue MD Attending Provider Mundo Lopes MD, Sterling Unavailable Unavailabl e Chaevz COILED COIL INSPECTOR-ARTIST MODEL, Kaylie R Primary Care Provider [facility], [place] Unavailable Mundo Lopes MD, Sterling Unavailable Unavailabl e Laverne Porter DO Primary Care Provider [phone] REYMUNDO GIRON Attending Unavailable GIRON, REYMUNDO E Referring Unavailable [...] Unavailable CHAVEZ, KAYLIE R Primary Care Unavailable NIENBERG, MAGALIE Ugalde Attending Unavailable CHAVEZ, KAYLIE R Referring Unavailable CHAVEZ, KAYLIE R Primary Care Unavailable GIRON, REYMUNDO E Admitting Unavailable GIRON, REYMUNDO E Attending Unavailable CHAVEZ, KAYLIE R Referring Unavailable CHAVEZ, KAYLIE R Primary Care Unavailable GIRON, REYMUNDO E Attending Unavailable GIRON, REYMUNDO E Referring Unavailable CHAVEZ, KAYLIE R Primary Care Unavailable NIENBERG, MAGALIE Ugalde Attending Unavailable CHAVEZ, KAYLIE R Referring Unavailable CHAVEZ, KAYLIE R Primary Care Unavailable GIRON, REYMUNDO E Admitting Unavailable GIRON, REYMUNDO Bang Attending Unavailable CHAVEZ, KAYLIE R Referring Unavailable CHAVEZ, KAYLIE R Primary Care Unavailable GIRON, REYMUNDO Bang Attending Unavailable GIRON, REYMUNDO E Referring Unavailable CHAVEZ, KAYLIE R Primary Care Unavailable NIENBERG, MAGALIE Ugalde Attending Unavailable CHAVEZ, KAYLIE R Referring Unavailable CHAVEZ, KAYLIE R Primary Care Unavailable NIENBERG, MAGALIE Ugalde Attending Unavailable CHAVEZ, KAYLIE R Referring Unavailable CHAVEZ, KAYLIE R Primary Care Unavailable GIRON, REYMUNDO E Attending Unavailable GIRON, REYMUNDO E Referring Unavailable CHAVEZ, KAYLIE R Primary Care Unavailable GIRON, REYMUNDO E Admitting Unavailable GIRON, REYMUNDO Bang Attending Unavailable CHAVEZ, KAYLIE R Referring Unavailable CHAVEZ, KAYLIE R Primary Care Unavailable NIENBERG, MAGALIE Ugalde Attending Unavailable KALA LLOYD Referring Unavailable CHAVEZ, KAYLIE R Primary Care Unavailable NIENBERG, MAGALIE Ugalde Attending Unavailable CHAVEZ, KAYLIE R Referring Unavailable CHAVEZ, KAYLIE R Primary Care Unavailable GIRON, REYMUNDO Bang Attending Unavailable GIRON, REYMUNDO E Referring Unavailable CHAVEZ, KAYLIE R Primary Care Unavailable GIRON, REYMUNDO E Admitting Unavailable GIRON, REYMUNDO E Attending Unavailable PREMA, KALA F Referring Unavailable CHAVEZ, KAYLIE R Primary Care Unavailable MAGALIE GREEN Attending Unavailable CHAVEZ, KAYLIE R Referring Unavailable CHAVEZ, KAYLIE R Primary Care Unavailable MAGALIE GREEN Attending Unavailable CHAVEZ, KAYLIE R Referring Unavailable PREMA, KALA F Primary Care Unavailable Al Shweiki, Sterling Attending Unavailable Al Shweiki, Sterling Referring Unavailable Al Shweiki, Sterling Attending Unavailable Al Shweiki, Sterling Referring Unavailable Al Shweiki, Sterling Attending Unavailable Al Shweiki, Sterling Referring Unavailable Al Shweiki, Sterling Attending Unavailable Al Shweiki, Sterling Referring Unavailable Al Shweiki, Sterling Attending Unavailable Al Shweiki, Sterling Referring Unavailable LINDY VALENTINO Attending Unavailabl ELIAZAR Yost Attending Unavailable LINDY VALENTINO Attending Unavailabl e PREMA, KALA F Attending Unavailable PREMA, KALA F Attending Unavailable PREMA, KALA F Referring Unavailable PETLAVERNE COLES Attending Unavailable LINDY VALENTINO Attending Unavailabl e PREMA, KALA F Referring Unavailable BROWNELIAZAR Attending Unavailable DANII MANLEY F Attending Unavailable LINDY VALENTINO Attending Unavailabl e PREMA, KALA F Attending Unavailable LINDY VALENTINO Attending Unavailabl e LAVERNE PORTER Attending Unavailable ELIAZAR PIRES Attending Unavailable PREMA, KALA F Attending Unavailable MARYLOU LAY Attending Unavailable PREMA, KALA F Referring Unavailable BRSUIM ARAIZA Attending Unavailable PREMA, KALA F Referring Unavailable BRSUMI ARAIZA Attending Unavailable PREMA, KALA F Referring Unavailable ELIAZAR PIRES Attending Unavailable SUMI COTTRELL Attending Unavailable PREMA, KALA F Referring Unavailable LINDY VALENTINO Attending Unavailabl SUMI Hood Attending Unavailable PREMA, KALA F Referring Unavailable PETLAVERNE COLES Attending Unavailable LINDY VALENTINO Attending Unavailabl e OMID AHMAD F Attending Unavailable OMID, AHMAD F Referring Unavailable ELIAZAR PIRES Attending Unavailable LAEVRNE PORTER Attending Unavailable LINDY VALENTINO Attending Unavailabl e PREMA, KALA F Attending Unavailable NORA VALENTINOQUELINE K Attending Dana bang Allergies Allergy Classification Reported Allergen(s) Allergy Type Date of Onset Reaction(s) Facility (15 sources) Coconut extract Drug Allergy 05-19-19 Unknown, [facility] (20 sources) Codeine; Translations: [codeine] Drug Allergy 01-01-20 Unknown, Nausea [facility] (20 sources) dapagliflozin; Translations: [DAPAGLIFLOZIN] Drug Allergy 01-01-20 [facility] (20 sources) Latex; Translations: [latex] Propensity to adverse reactions 01-08-20 [facility] (5 sources) onions Propensity to adverse reactions Unknown [facility] Other (20 sources) Acetaminophen Drug Allergy 05-19-19 Unknown [facility] (4 sources) Bee pollen Allergy to substance 05-19-19 Anaphylaxis [facility] (20 sources) Onion extract Drug Allergy 05-19-19 [facility] (10 sources) Tide Allergy to substance 05-19-19 [facility] (1 source) Coconut extract Drug Allergy 06-17-19 14 [facility] (1 source) Codeine Drug Allergy 02-08-20 13 [facility] (1 source) Latex Drug allergy (disorder) 06-17-19 14 [facility] (1 source) Misc-Food; Translations: [Misc-Food] Food allergy (disorder) 06-17-19 14 [facility] (1 source) Misc-Drug Drug allergy (disorder) 07-05-19 16 [facility] (20 sources) dapagliflozin; Translations: [DAPAGLIFLOZIN PROPANEDIOL] Drug Allergy 06-01-19 Rash [facility] (20 sources) Latex Allergy to substance 07-24-19 Unknown [facility] (20 sources) Coconut Flavor Allergy to substance 07-24-19 Unknown [facility] Work Phone: (20 sources) Coconut Flavoring Agent (Non-Screening) Allergy to substance 07-24-19 Unknown [facility] Work Phone: (1 source) dapagliflozin; Translations: [DAPAGLIFLOZIN PROPANEDIOL] Drug Allergy 06-01-19 23 Rash [facility] Medications Current Medications Medication Drug Class(es) Dates Sig (Normalized) Sig (Original) [id number] 200 actuat albuterol 0.09 mg/actuat metered dose inhaler (20 sources) beta2-Adrenergic Agonist Start: 04-25-2023 take 2 puff(s) by inhalation every six hours as needed Albuterol Sulfate 90 mcg/actuation HFA aerosol inhaler Active 2 PUFF INHALATION Every 6 hours April 25, 2023 1:00am [employer] puffs as needed Inhalation every 6 hrs; Note: Source Status: Taking; Provider: Danis Loyola ( ) Start: 07-17-2021 End: 12-07-2024 take 2 puff(s) by inhalation every four hours for wheezing albuterol HFA 90 mcg/act inhaler Indications: Acute bronchitis, unspecified organism , Chronic diarrhea Inhale 2 puffs every 4 (four) hours if needed for wheezing 18 g 3 12/07/2024 Active Start: 05-25-2019 End: 11-21-2023 take 1 puff(s) by inhalation every four to six hours as needed for wheezing Albuterol Sulfate 90 mcg/actuation Hfa Aerosol Inhaler Discontinued 2 PUFF INHALATION EVERY 4-6 HOURS as needed for Shortness Of Breath Or Wheezing May 25, 2019 12:00am November 21, 2023 [...] (20 sources) Potassium-sparing Diuretic Start: 04-12-2022 take 1 tablet by mouth once daily Amiloride 5 mg tablet Active 5 MG PO Daily April 25, 2023 1:00am take 1 tablet by nancy th every twelve hours aMILoride HCl 5 MG 1 tablet with food Orally bid for 90 days Active atorvastatin 80 mg oral tablet (20 sources) HMG-CoA Reductase Inhibitor Start: 11-21-2023 take 1 tablet by mouth once daily at bedtime Atorvastatin 40 mg tablet Active 40 MG PO Daily at bedtime November 21, 2023 12:00am Start: 04-26-2022 End: 07-30-2025 take 1 tablet by mouth once daily atorvastatin (Lipitor) 80 MG tablet Indications: Mixed hyperlipidemia Take 1 tablet (80 mg) by mouth Daily 100 tablet 3 07/30/2024 07/30/2025 Active Start: 05-15-2018 End: 04-22-2020 take 2 tablets by mouth once daily in the morning Atorvastatin 40 mg tablet Discontinued 80 MG PO Every morning May 15, 2018 1:00am April 22, 2020 4:06pm Start: 05-15-2018 End: 04-22-2020 take 80 mg by mouth once daily in the morning Atorvastatin Discontinued 80 MG PO Every morning May 15, 2018 1:00am April 22, 2020 4:06pm bismuth subsalicylate 262 mg chewable tablet (1 source) Bismuth Start: 07-20-2022 take 1 tablet by mouth twice daily Bismuth 262 MG 1 tablet Orally twice daily for 14 days July, Active Blood Glucose Monitoring Suppl (Lude[employer]io) w/Device kit (20 sources) Start: 10-21-2023 Blood Glucose Monitoring Suppl ([employer]Touch Verio) w/Device kit Indications: Type 2 diabetes mellitus with stage 3a chronic kidney disease, with long-term current use of insulin ([facility]) Fsbs daily 1 kit 10/21/2023 Active Start: 10-21-2023 Blood Glucose Monitoring Suppl ([employer] Verio) w/Device kit Indications: Type 2 diabetes mellitus with stage 3a chronic kidney disease, with long-term current use of insulin (HCC) ([facility]) Fsbs daily 1 kit 10/21/2023 Active blood-glucose sensor (DEXCOM G6 SENSOR) device (20 sources) blood-glucose se nsor (DEXCOM G6 SENSOR) device by miscellaneous route. Active blood-glucose se nsor (DEXCOM G6 SENSOR) device by miscellaneous route. 0 Active cefuroxime 500 mg oral tablet (12 sources) Cephalosporin Antibacterial Start: 04-05-2023 End: 04-15-2023 take 1 tablet by mouth in the morning cefuroxime (Ceftin) 500 MG tablet Indications: Acute bronchitis, unspecified organism Take 1 tablet (500 mg) by mouth in the morning and 1 tablet (500 mg) before bedtime. Do all this for 10 days. 20 tablet 0 04/05/2023 04/15/2023 Active Start: 07-24-2019 End: 08-20-2019 take 1 tablet by mouth twice daily Cefuroxime Axetil 250 mg Tablet Discontinued 250 MG PO Twice daily July 24, 2019 12:00am August 20, 2019 1:24pm cetirizine hydrochloride 10 mg oral tablet (20 sources) Histamine-1 Receptor Antagonist Start: 09-06-2023 End: 07-30-2024 take 1 tablet by mouth once daily cetirizine (ZyrTEC) 10 MG tablet Indications: Seasonal allergic rhinitis due to pollen Take 1 tablet (10 mg) by mouth Daily 90 tablet 1 07/30/2024 Active Start: 05-25-2019 End: 04-25-2023 take 1 tablet by mouth once daily Cetirizine 10 mg Tablet Discontinued 10 MG PO Daily May 25, 2019 12:00am April 25, 2023 3:45pm chlorproMAZINE hydrochloride 200 mg oral tablet (20 sources) Phenothiazine Start: 04-25-2023 take 1 tablet by mouth once Chlorpromazine 200 mg tablet Active 200 MG PO Once April 25, 2023 1:00am Start: 05-15-2018 End: 04-25-2023 take 1 tablet by mouth three times daily Chlorpromazine 200 mg tablet Discontinued 200 MG PO Three times daily May 15, 2018 1:00am April 25, 2023 3:45pm Start: 05-15-2018 Chlorpromazine Active 100 MG PO As Directed May 15, 2018 1:00am Start: 05-15-2018 take 500 mg by mouth at bedtime Chlorpromazine Active 500 MG PO Bedtime May 15, 2018 12:00am Start: 05-15-2018 End: 05-25-2019 take 1 tablet by mouth twice daily Chlorpromazine 50 mg tablet Discontinued 50 MG PO Twice daily May 15, 2018 1:00am May 25, 2019 10:57am take 3 tablets by mo uth at bedtime chlorproMAZINE (Thorazine) 200 MG tablet Take 600 mg by mouth at bedtime Active take 1 tablet by nancy th every eight hours chlorproMAZINE (Thorazine) 200 MG tablet Take 200 mg by mouth every 8 (eight) hours. Active cholecalciferol 1.25 mg oral capsule (20 sources) Vitamin D Start: 11-21-2023 take 1 capsule by mouth every week Cholecalciferol (Vitamin D3) 1,250 mcg (50,000 unit) capsule Active 1250 MCG PO every week November 21, 2023 12:00am Start: 04-21-2020 End: 04-27-2022 take 1 tablet by mouth once daily Cholecalciferol (Vitamin D3) 10 mcg (400 unit) Tablet Discontinued 10 MCG PO Daily April 21, 2020 1:00am April 27, 2022 10:40am take 1 tablet by nancy th every week cholecalciferol (Vitamin D-3) 1.25 MG (65883 UT) tablet Take 50,000 Units by mouth 1 (one) time per week Active cholecalciferol (VITAMIN D3) 50,000 units capsule Take 5,000 Units by mouth once a week. Active take 1 capsule by mo uth every week cholecalciferol (Vitamin D-3) 1.25 MG (32665 UT) capsule Take 50,000 Units by mouth 1 (one) time per week. 0 Active Continuous Glucose Coal Sampler (Dexcom G7 Coal Sampler) device (20 sources) Start: 10-22-2023 Continuous Glu cose Coal Sampler (Dexcom G7 Coal Sampler) device Indications: Type 2 diabetes mellitus with stage 3a chronic kidney disease, with long-term current use of insulin (HCC) 1 Device See administration instructions 1 each 10/22/2023 Active Start: 10-22-2023 Continuous Glu cose Coal Sampler (Dexcom G7 Coal Sampler) device Indications: Type 2 diabetes mellitus with stage 3a chronic kidney disease, with long-term current use of insulin (HCC) ([facility]/HCC) 1 Device See administration instructions 1 each 10/22/2023 Active Continuous Glucose Sensor (Dexcom G7 Sensor) misc (20 sources) Start: 05-19-2024 Continuous Glu cose Sensor (Dexcom G7 Sensor) misc Indications: Type 2 diabetes mellitus with stage 3a chronic kidney disease, with long-term current use of insulin (HCC) Inject 1 Device under the skin Every 10 (ten) days 9 each 3 05/19/2024 Active Start: 05-19-2024 Continuous Glu cose Sensor (Dexcom G7 Sensor) mis Indications: Type 2 diabetes mellitus with stage 3a chronic kidney disease, with long-term current use of insulin (HCC) (CMS/HCC) Inject 1 Device under the skin Every 10 (ten) days 9 each 05/19/2024 Active Start: 10-22-2023 End: 05-19-2024 Continuous Glucose Sensor (D excom G7 Sensor) [facility] Indications: Type 2 diabetes mellitus with stage 3a chronic kidney disease, with long-term current use of insulin (HCC) (CMS/HCC) Inject 1 Device under the skin Every 10 (ten) days 9 each 10/22/2023 05/19/2024 Discontinued (Reorder) Start: 10-22-2023 Continuous Glu cose Sensor (Dexcom G7 Sensor) [facility] Indications: Type 2 diabetes mellitus with stage 3a chronic kidney disease, with long-term current use of insulin (HCC) (CMS/HCC) Inject 1 Device under the skin Every 10 (ten) days 9 each 10/22/2023 Active doxepin hydrochloride 50 mg oral capsule (20 sources) Tricyclic Antidepressant Start: 05-15-2018 take 1 capsule by mouth three times daily Doxepin 50 mg capsule Active 50 MG PO Three times daily May 15, 2018 1:00am take 1 capsule by [facility] once daily at bedtime doxepin 50 mg capsule take 1 capsule by oral route every day at bedtime 50 MG - Active doxycycline monohydrate 100 mg oral tablet (8 sources) Tetracycline-class Drug Start: 12-07-2024 End: 12-17-2024 take 1 tablet by mouth in the morning doxycycline (Adoxa) 100 MG tablet Indications: Acute bronchitis, unspecified organism Take 1 tablet (100 mg) by mouth in the morning and 1 tablet (100 mg) before bedtime. Do all this for 10 days. Take with a full glass of water and do not lie down for at least 30 minutes after. 20 tablet 12/07/2024 12/17/2024 Active Start: 07-30-2024 End: 08-09-2024 take 1 tablet by mouth in the morning doxycycline (Vibra-Tabs) 100 MG tablet Indications: Acute bronchitis, unspecified organism Take 1 tablet (100 mg) by mouth in the morning and 1 tablet (100 mg) before bedtime. Do all this for 10 days. Take with a full glass of water and do not lie down for at least 30 minutes after. 20 tablet 07/30/2024 08/09/2024 Active Start: 01-31-2024 End: 02-10-2024 doxycycline (Vibra-Tabs) 100 MG tablet Indications: Acute bronchitis, unspecified organism , Chronic diarrhea Take 1 tablet (100 mg) by mouth in the morning and 1 tablet (100 mg) before bedtime. Do all this for 10 days. Take with a full glass of water and do not lie down for at least 30 minutes after.. 20 tablet 01/31/2024 02/10/2024 Active 0.5 ml dulaglutide 1.5 mg/ml auto-injector (20 sources) GLP-1 Receptor Agonist Start: 08-28-2024 End: 08-28-2025 inject 0.75 mg by subcutaneous injection every week Dulaglutide (Trulicity) 0.75 MG/0.5ML solution auto-injector Indications: Type 2 diabetes mellitus with peripheral neuropathy (HCC) Inject 0.75 mg under the skin 1 (one) time per week 6 mL 3 08/28/2024 08/28/2025 Active Start: 08-28-2024 End: 08-28-2025 inject 0.5 mL by subcutaneous injection every week TRULICITY 0.75 mg/0.5 mL pen injector Inject 0.5 mL (0.75 mg total) under the skin once a week. INJECT 0.75 MG UNDER THE SKIN 1 (ONE) TIME PER WEEK 08/28/2024 08/28/2025 Active [id number] 0.3 ml EPINEPHrine 1 mg/ml auto-injector (20 sources) alpha-Adrenergic Agonist, beta-Adrenergic Agonist, Catecholamine Start: 11-02-2021 EPINEPHrine (EpiP en 2-Arnaldo) 0.3 MG/0.3ML injection syringe Inject 1 Syringe as directed 1 (one) time. 11/02/2021 Active EPINEPHrine (ADR ENALIN) 1 mg/mL injection Inject into the appropriate muscle once. Active ergocalciferol 1.25 mg oral capsule (20 sources) Provitamin D2 Compound Start: 09-02-2024 take 1 capsule by mouth every week ergocalciferol (Vitamin D2) 1.25 MG (51913 UT) capsule Indications: Vitamin D deficiency Take 1 capsule by mouth once a week 12 capsule 09/02/2024 Active Start: 06-18-2024 Ergocalciferol (Vitamin D2) 1,250 mcg (50,000 unit) capsule Active 09885 UNIT PO every week June 18, 2024 12:00am Start: 12-30-2023 End: 06-09-2024 take 1 capsule by mouth every week ergocalciferol (Vitamin D2) 1.25 MG (12984 UT) capsule Indications: Vitamin D deficiency Take 1 capsule by mouth once a week 12 capsule 06/09/2024 Active Start: 05-25-2019 End: 04-26-2022 Ergocalciferol (Vitamin D2) (Vitamin D2) 1,250 mcg (50,000 unit) Capsule Discontinued 15584 UNIT PO As Directed May 25, 2019 12:00am April 26, 2022 3:35pm take twice weekly take 1 capsule by mo uth two times weekly Vitamin D (Ergocalciferol) 1.25 MG (61740 UT) 1 capsule Orally twice a week Active etodolac 300 mg oral capsule (20 sources) Nonsteroidal Anti-inflammatory Drug Start: 09-05-2024 take 1 capsule by mouth every eight hours etodolac (Lodine) 300 MG capsule Take 300 mg by mouth every 8 (eight) hours 09/05/2024 Active ezetimibe 10 mg oral tablet (20 sources) Dietary Cholesterol Absorption Inhibitor Start: 12-02-2020 End: 07-30-2025 take 1 tablet by mouth once daily ezetimibe (Zetia) 10 MG tablet Indications: Hyperlipidemia, unspecified hyperlipidemia type Take 1 tablet (10 mg) by mouth Daily 100 tablet 3 07/30/2024 07/30/2025 Active fluticasone propionate 0.05 mg/actuat metered dose nasal spray (20 sources) Corticosteroid Start: 07-30-2024 take 2 spray(s) nasal route once daily fluticasone (Flonase) 50 MCG/ACT nasal spray Indications: Seasonal allergic rhinitis due to pollen Administer 2 sprays into each nostril Daily 16 g 2 07/30/2024 Active Start: 04-25-2023 take 1 spray(s) nasa l route once daily Fluticasone Propionate 50 mcg/actuation spray,suspension Active 1 SPRAY INTRANASAL Daily April 25, 2023 1:00am [employer] spray in each nostril Nasally Once a day; Note: Source Status: Taking; Provider: Danis Loyola ( ) Start: 07-24-2019 End: 04-26-2022 Fluticasone Propionate 50 mcg/actuation spray,suspension Discontinued 2 SPRAY INTRANASAL Daily July 24, 2019 12:00am April 26, 2022 3:43pm Start: 09-06-2014 End: 07-30-2024 take 2 spray(s) nasal route in the morning fluticasone (Flonase) 50 MCG/ACT nasal spray Administer 2 sprays into each nostril in the morning. 09/06/2014 07/30/2024 Discontinued (Reorder) take 2 spray(s) nasa l route in the morning fluticasone propionate (FLONASE) 50 mcg/actuation nasal spray Administer 2 sprays into each nostril in the morning. Active take 2 puff(s) by in halation twice daily [employer] Digihaler 55 mcg/actuation aerosol powder breath act, sensor inhale 2 puff by inhalation route 2 times every day - Active take 1 spray(s) nasa l route once daily Fluticasone Propionate 50 MCG/ACT 1 spray in each nostril Nasally Once a day Active gabapentin 800 mg oral tablet (20 sources) Anti-epileptic Agent Start: 05-15-2018 take 1 tablet by mouth four times daily Gabapentin 800 mg tablet Active 800 MG PO Four times daily May 15, 2018 1:00am take 1 tablet by nancy th every twelve hours gabapentin 800 mg tablet take 1 tablet b y oral route 2 times every day 800 MG - Active take 1 tablet by mouth every six hours gabapentin (Neurontin) 800 MG tablet Take 800 mg by mouth every 6 (six) hours. 0 Active Insulin Aspart U-100 (Novolo g Flexpen U-100 Insulin) 100 unit/mL (3 mL) Insulin Pen (10 sources) Start: 05-25-2019 Insulin Aspart U-100 (Novolog Flexpen U-100 Insulin) 100 unit/mL (3 mL) Insulin Pen Active 15 - 40 UNIT SUBCUT THREE TIMES DAILY WITH MEALS May 25, 2019 12:00am Please contact the information source for Protocol details. Start: 05-25-2019 Insulin Aspart U-100 (Novolog Flexpen [...] (20 sources) Insulin Analog Start: 05-19-2024 End: 12-01-2024 insulin aspart (NovoLOG FlexPen ReliOn) 100 UNIT/ML pen Indications: Type 2 diabetes mellitus with peripheral neuropathy (HCC) 20 units small meals , 40 units large meals plus correction 1:30 > 150 mg/dl (max daily 100 units) 30 mL 3 12/01/2024 Active Start: 01-20-2024 End: 05-19-2024 insulin aspart [...] before meals. Sliding scale . Active insulin aspart U -100 (NovoLOG) 100 unit/mL injection Inject under the skin 3 (three) times a day before meals. Sliding scale Active NovoLOG 100 UNIT /ML 30 UNITS FOR SMALL MEALS, 45 UNITS FOR LARGE MEALS Subcutaneous NEEDED Active 3 ml insulin glargine 100 unt/ml pen injector (20 sources) Insulin Analog Start: 04-13-2024 End: 08-28-2025 inject 35 [IU] by subcutaneous injection in the morning insulin glargine (Lantus SoloStar) 100 UNIT/ML pen Indications: Type 2 diabetes mellitus with peripheral neuropathy (HCC) Inject 35 Units under the skin in the morning and 35 Units before bedtime. 30 mL 3 08/28/2024 08/28/2025 Active Start: 11-21-2023 Insulin Glargi ne (Lantus Solostar [...] 3:43pm November 21, 2023 2:47pm Start: 04-02-2023 End: 05-19-2025 inject 40 [IU] by subcutaneous injection in the morning insulin glargine (Lantus SoloStar) 100 UNIT/ML pen Indications: Type 2 diabetes mellitus with peripheral neuropathy (HCC) Inject 40 Units under the skin in the morning and 40 Units before bedtime. 30 mL 3 05/19/2024 08/28/2024 Discontinued (Dose adjustment) Start: 04-21-2020 End: 04-25-2023 Insulin Glargine (Lantus [...] by subcutaneous injection twice daily Insulin Glargine 100 unit/mL (3 mL) insulin pen Discontinued 35 UNIT SUBCUT Twice daily May 25, 2019 12:00am April 26, 2022 3:44pm Start: 05-15-2018 End: 05-25-2019 inject 35 mg by subcutaneous injection twice daily Insulin Glargine 100 unit/mL (3 mL) insulin pen Discontinued 35 MG SUBCUT Twice daily May 15, 2018 1:00am May 25, 2019 11:05am Lantus Solostar U-100 Insulin 100 unit/mL (3 mL) subcutaneous pen inject by subcutaneous route as per insulin protocol 0.00 - Active inject 40 [IU] by burgos bcutaneous injection in the morning insulin glargine (LANTUS, BASAGLAR) 100 unit/mL (3 mL) insulin pen Inject 40 Units under the skin in the morning and 40 Units before bedtime. 0 Active Lantus SoloStar 100 UNIT/ML as directed Subcutaneous 40 UNITS TWICE A DAY Active 3 ml insulin isophane, human 100 unt/ml pen injector (2 sources) Novolin N FlexPe n 100 unit/mL (3 mL) subcutaneous insulin pen inject by subcutaneous route per prescriber's instructions. Insulin dosing requires individualization. 0.00 - Active ketorolac tromethamine 4 mg/ml ophthalmic solution (20 sources) Nonsteroidal Anti-inflammatory Drug, Cyclooxygenase Inhibitor Start: 025 take 1 drop(s) into the eye(s) in the morning, then take 1 drop(s) into the eye(s) in the evening, then take 1 drop(s) into the eye(s) at bedtime ketorolac (Acular) 0.4 % ophthalmic solution Administer 1 drop into both eyes in the morning and 1 drop in the evening and 1 drop before bedtime. 07/18/2024 Active Start: 06-23-2024 End: 10-13-2024 take 1 drop(s) into the eye(s) three times daily ketorolac 0.4 % eye drops instill 1 drop by ophthalmic route 3 times every day into the both eyes 1 drop - No Longer Active substitutions are acceptable Comment on above: substitutions are ac ceptable lisinopril 20 mg oral tablet (20 sources) Angiotensin Converting Enzyme Inhibitor Start: 05-16-19 End: 07-31-19 26 take 1 tablet by mouth once daily lisinopril 20 MG tablet Indications: Primary hypertension Take 1 tablet (20 mg) by mouth Daily 100 tablet 3 07/30/2024 07/30/2025 Active LORazepam 1 mg oral tablet (20 sources) Benzodiazepine Start: 05-14-19 24 take 1 tablet by mouth three times daily as needed for anxiety LORazepam (Ativan) 1 MG tablet Take 1 mg by mouth 3 (three) times a day as needed for anxiety 05/14/2023 Active Start: 04-25-2023 take 2 tablets by mo [facility] four times daily Lorazepam (Ativan) 0.5 mg tablet Active 1 MG PO Four times daily April 25, 2023 3:36pm Start: 05-18-2022 End: 04-25-2023 take 1 tablet by mouth three times daily Lorazepam (Ativan) 0.5 mg Tablet Discontinued 0.5 MG PO Three times daily May 18, 2022 1:00am April 25, 2023 3:48pm Start: 05-18-2022 take 1 tablet by [facility] once daily Lorazepam (Ativan) 0.5 mg Tablet Active 0.5 MG PO Daily May 18, 2022 1:00am take 2 tablets by mo [facility] every six hours as needed for anxiety LORazepam (ATIVAN) 0.5 mg tablet Take 2 tablets (1 mg total) by mouth every 6 (six) hours as needed for anxiety. 0.5-1 mg daily 2 tablets at HS Active take 1 tablet by nancy every twelve hours Ativan 0.5 mg tablet take 1 tablet by oral route 2 times every day as needed 0.5 MG - Active take 2 tablets by mo [facility] in the morning, then take 2 tablets by mouth in the evening, then take 2 tablets by mouth at bedtime LORazepam (Ativan) 0.5 MG tablet Take 1 mg by mouth in the morning and 1 mg in the evening and 1 mg before bedtime. 0 Active take 1 tablet by nancy every six hours as needed for anxiety LORazepam (ATIVAN) 0.5 mg tablet Take 1 tablet (0.5 mg total) by mouth every 6 (six) hours as needed for anxiety. 0.5-1 mg daily 2 tablets at HS 0 Active Magnesium (2 sources) magnesium 200 mg (as magnesium oxide) chewable tablet - Active magnesium oxide 400 mg oral tablet (20 sources) Start: 06-18-2024 End: 06-18-2024 take 1 tablet by mouth twice daily Magnesium Oxide 400 mg (241.3 mg magnesium) tablet Active 400 MG PO Twice daily 180 June 18, 2024 2:13pm Start: 06-18-2024 End: 06-18-2024 take 1 tablet by mouth once daily Magnesium Oxide 400 mg (241.3 mg magnesium) tablet Discontinued 400 MG PO Daily June 18, 2024 12:00am June 18, 2024 2:13pm Start: 02-26-2024 take 1 tablet by nancy once daily MAGnesium-Oxide 400 (240 Mg) MG tablet Indications: Hypomagnesemia Take 1 tablet by mouth once daily 30 tablet 3 02/26/2024 Active Start: 12-30-2023 End: 03-29-2024 take 1 tablet by mouth once daily Magnesium Oxide -Mg Supplement 400 MG capsule Indications: Hypomagnesemia Take 1 tablet by mouth Daily 30 capsule 1 12/30/2023 03/29/2024 Active Start: 04-25-2023 End: 11-21-2023 take 1 tablet by mouth twice daily Magnesium Oxide 400 mg magnesium tablet Discontinued 400 MG PO Twice daily April 25, 2023 4:08pm November 21, 2023 2:57pm Start: 04-26-2022 End: 01-20-2024 take 1 tablet by mouth once daily Magnesium Oxide 400 mg magnesium Tablet Discontinued 400 MG PO Daily April 26, 2022 1:00am April 25, 2023 4:08pm take 1 tablet by nancy twice daily at mealtime Magnesium Oxide 400 (240 Mg) MG 1 tablet with food Orally bid for 90 day(s) Active metFORMIN hydrochloride 1000 mg oral tablet (20 sources) Biguanide Start: 05-15-2018 End: 07-30-2025 take 1 tablet by mouth in the morning metFORMIN (Glucophage) 1000 MG tablet Indications: Type 2 diabetes mellitus with peripheral neuropathy (HCC) Take 1 tablet (1,000 mg) by mouth in the morning and 1 tablet (1,000 mg) before bedtime. 200 tablet 3 07/30/2024 07/30/2025 Active take 1 tablet by nancy every twenty-four hours in the morning, then take 1 tablet by mouth at mealtime metFORMIN (GLUMETZA) 1000 MG (MOD) 24 hr tablet Take 1 tablet (1,000 mg total) by mouth in the morning and 1 tablet (1,000 mg total) in the evening. Take with meals. Active methocarbamol 500 mg oral tablet (20 sources) Muscle Relaxant Start: 09-05-2024 take 1 tablet by mouth every eight hours as needed methocarbamol (Robaxin) 500 MG tablet Take 500 mg by mouth every 8 (eight) hours if needed 09/05/2024 Active metroNIDAZOLE 500 mg oral tablet (1 source) Nitroimidazole Antimicrobial Start: 07-20-2022 take 1 tablet by mouth every twelve hours metroNIDAZOLE 500 MG 1 tablet Orally Twice a day for 14 days July, Active montelukast 10 mg oral tablet (20 sources) Leukotriene Receptor Antagonist Start: 08-07-2022 End: 11-07-2024 take 1 tablet by mouth at bedtime montelukast (Singulair) 10 MG tablet Indications: Seasonal allergic rhinitis due to pollen Take 1 tablet (10 mg) by mouth at bedtime 100 tablet 1 07/30/2024 Active 10 actuat olodaterol 0.0025 mg/actuat / [...] Inhale 2 puffs in the morning. Active Stiolto Respimat 2.5 mcg-2.5 mcg/actuation solution for inhalation inhale 2 puff by inhalation route every day at the same time each day 2.00 puff - Active tiotropium-oloda teroL (STIOLTO RESPIMAT) 2.5-2.5 mcg/actuation [...] tablet (20 sources) Proton Pump Inhibitor Start: 07-30-2024 End: 07-30-2025 take 1 tablet by mouth once pantoprazole (Protonix) 40 MG EC tablet Indications: Gastroesophageal reflux disease without esophagitis Take 1 tablet (40 mg) by mouth every 12 (twelve) hours 200 tablet 3 07/30/2024 07/30/2025 Active Start: 05-07-2018 End: 12-02-2020 take 1 tablet by mouth twice daily Pantoprazole 40 mg tablet,delayed release (DR/EC) Discontinued 40 MG PO Twice daily May 15, 2018 1:00am December 02, 2020 9:29am polyethylene glycol 3350 03874 mg powder for oral solution (1 source) Osmotic Laxative Start: 05-10-2024 End: 05-13-2024 polyethylene glycol, PEG, 3350 (MiraLax) 17 GM/SCOOP powder Indications: Constipation, unspecified constipation type Take 17 g by mouth Daily for 3 days 527 g 2 05/10/2024 05/13/2024 Active polyethylene glycol 3350 [id number] mg / potassium chloride 2970 mg / sodium bicarbonate 6740 mg / sodium chloride 5860 mg / sodium sulfate 91002 mg powder for oral solution (1 source) Osmotic Laxative Start: 07-24-2022 PEG-3350/Electrolyte s 236 GM as directed Orally once daily for 1 days July, Active predniSONE 20 mg oral tablet (4 sources) Start: 12-07-2024 End: 12-12-2024 take 2 tablets by mouth once daily predniSONE (Deltasone) 20 MG tablet Indications: Acute bronchitis, unspecified organism Take 2 tablets (40 mg) by mouth Daily for 5 days 10 tablet 12/07/2024 12/12/2024 Active Start: 04-05-2023 take 2 tablets by [facility] once daily, then take 1 tablet by [...] mouth as needed at bedtime. 04/19/2016 Active take 1 tablet by mouth every eig ht hours ropinirole 0.25 mg tablet take 1 tablet by oral route 3 times every day 0.25 MG - Active tetracycline hydrochloride 500 mg oral capsule (1 source) Tetracycline-class Antimicrobial Start: 07-20-2022 take 1 capsule by mouth twice daily Tetracycline HCl 500 MG 1 capsule on an empty stomach Orally twice daily for 14 days July, Active tiZANidine 4 mg oral tablet (20 sources) Central alpha-2 Adrenergic Agonist Start: 02-27-2023 End: 06-18-2024 take 1 tablet by mouth twice daily as needed for muscle spasms tiZANidine (ZANAFLEX) 4 mg tablet Take 1 tablet (4 mg total) by mouth 2 (two) times a day as needed for muscle spasms. 60 tablet 1 02/27/2023 Active take 1 tablet by mouth every six hours tizanidine 4 mg tablet take 1 tablet by oral route every 6 - 12 hours as needed not to exceed 3 doses in 24 hours 4 MG - Active 24 hr divalproex sodium 500 mg extended release oral tablet (20 sources) Mood Stabilizer, Anti-epileptic Agent Start: 11-21-2023 take 2 tablets by mouth twice daily in the morning, then take 3 tablets by mouth twice daily in the evening Divalproex 500 mg tablet extended release 24 hr Active 0 PO Twice daily November 21, 2023 2:43pm 2 tabs in am, 3 tabs in pm orally twice daily; Start: 04-25-2023 End: 11-21-2023 Divalproex 500 mg tablet ext ended release 24 hr Discontinued 1500 MG PO Daily April 25, 2023 1:00am November 21, 2023 2:47pm Start: 04-25-2023 End: 11-21-2023 take 1500 mg by mouth once daily Divalproex Discontinued 1500 MG PO Daily April 25, 2023 1:00am November 21, 2023 2:47pm Start: 04-26-2022 End: 04-25-2023 take 1 tablet by mouth once daily Divalproex (Depakote Er) 500 mg Tablet Extended Release 24 Hr Discontinued 500 MG PO Daily April 26, 2022 1:00am April 25, 2023 3:44pm Start: 05-25-2019 End: 04-21-2020 Divalproex 500 mg tablet ext ended release 24 hr Discontinued 1500 MG PO Daily at bedtime May 25, 2019 12:00am April 21, 2020 5:05pm Start: 05-25-2019 End: 04-26-2022 Divalproex 500 mg tablet ext ended release 24 hr Discontinued 1000 MG PO Every morning May [...] 2022 3:34pm take 3 tablets by mo ut every twenty-four hours at bedtime divalproex (Depakote ER) 500 MG 24 hr tablet Take by mouth 3 tablets at bedtime Active take 3 tablets by mo ut once daily divalproex (DEPAKOTE) 500 mg EC tablet Take 3 tablets (1,500 mg total) by mouth nightly. Active take 1 tablet by nancy every twelve hours Depakote 500 mg tablet,delayed release take 1 tablet by oral route 2 times every day 500 MG - Active take 2 tablets by mo uth [...] AT BEDTIME Orally TWICE A DAY Active vitamin b12 0.1 mg oral tablet (20 sources) Vitamin B12 take 1 tablet by mouth once daily cyanocobalamin (Vitamin B-12) 100 MCG tablet Take 100 mcg by mouth Daily Active Completed/Discontinued Medications Medication Drug Class(es) Dates Sig (Normalized) Sig (Original) 1 ml alirocumab 75 mg/ml auto-injector (6 sources) PCSK9 Inhibitor Start: 12-21-2021 End: 03-15-2023 inject 1 mL by subcutaneous injection once alirocumab (PRALUENT PEN) 75 mg/mL pen injector Indications: High cholesterol , Type 2 diabetes mellitus with hyperosmolarity without coma, with long-term current use of insulin ([facility]) Inject 1 mL (75 mg total) under the skin every 14 (fourteen) days. 2 mL 11 12/21/2021 03/15/2023 Discontinued (Therapy completed) Praluent 75 MG/M L Subcutaneous for 28 Days Active Alirocumab (Praluent Pen) 75 mg/mL Pen Injector (10 sources) Start: 04-26-2022 End: 04-25-2023 inject 75 [...] Continuous Blood Gluc Sensor (Dexcom G6 Sensor) [facility] (20 sources) Start: 01-03-2023 End: 01-20-2024 Continuous Blood Gluc Sensor (Dexcom G6 Sensor) [facility] Indications: Type 2 diabetes mellitus with peripheral neuropathy (CMS/HCC) 1 each Every 10 (ten) days. 9 each 3 01/03/2023 01/20/2024 Discontinued Start: 01-03-2023 Continuous Blo od Gluc Sensor (Dexcom G6 Sensor) [facility] Indications: Type 2 diabetes mellitus with peripheral neuropathy (CMS/HCC) 1 each Every 10 (ten) days. 9 each 3 01/03/2023 Active cyclobenzaprine hydrochloride 10 mg oral tablet (20 sources) Muscle Relaxant Start: 04-21-2020 End: 04-22-2020 take 1 tablet by mouth at bedtime as needed for muscle spasms Cyclobenzaprine 10 mg Tablet Discontinued 10 MG PO Bedtime as needed for Muscle Spasm April 21, 2020 1:00am April 22, 2020 4:06pm Start: 07-24-2019 End: 08-28-2019 take 1 tablet by mouth three times daily Cyclobenzaprine 10 mg Tablet Discontinued 10 MG PO Three times daily July 24, 2019 12:00am August 28, 2019 8:41am 24 hr desvenlafaxine succinate 100 mg extended release oral tablet (20 sources) Serotonin and Norepinephrine Reuptake Inhibitor Start: 12-02-2020 End: 04-26-2022 take 1 tablet by mouth every twenty-four hours Desvenlafaxine Succinate 100 mg tablet extended release 24 hr Discontinued MG PO December 02, 2020 12:00am April 26, 2022 3:33pm Start: 05-15-2018 take 1 tablet by nancy th once daily Desvenlafaxine Succinate 100 mg tablet extended release 24 hr Active 100 MG PO Daily May 15, 2018 1:00am desvenlafaxine ( PRISTIQ) 100 mg 24 hr tablet Take 1 tablet (100 mg total) by mouth in the morning. Take 1.5 tablets. Active take 1 tablet by nancy th every twenty-four hours Desvenlafaxine ER 100 MG 1 tablet Orally Once a day Active dexamethasone 1 mg oral tablet (12 sources) Corticosteroid Start: 06-29-2024 End: 08-28-2024 dexAMETHasone (Decadron) 1 MG tablet Indications: Adrenal nodule (HCC) Take 1 tablet when directed 1 tablet 06/29/2024 08/28/2024 Discontinued (Therapy completed) diazePAM 5 mg oral tablet (10 sources) Benzodiazepine Start: 08-28-2019 End: 04-21-2020 take 1 tablet by mouth four times daily as needed for muscle spasms Diazepam 5 mg Tablet Discontinued 5 MG PO Four times daily as needed for Muscle Spasm 40 10 August 28, 2019 12:00am April 21, 2020 5:12pm Insulin Aspart U-100 100 unit/mL insulin pen (1 source) Start: 05-15-2018 End: 05-25-2019 inject 30 [IU] by subcutaneous injection four times daily Insulin Aspart U-100 100 unit/mL insulin pen Discontinued 30 UNITS SUBCUT Four times daily May 15, 2018 1:00am May 25, 2019 11:05am [id number] lcium &mins (THERAGRAN-M) 9 mg iron-400 mcg tablet (2 sources) End: 03-15-2023 [id number] alcium &mins (THERAGRAN-M) 9 mg iron-400 mcg tablet Take 1 tablet by mouth in the morning. 0 03/15/2023 Discontinued (Therapy completed) [id number] -calcium &mins (THERAGRAN-M) 9 mg iron-400 mcg [...] PO Every morning May 24, 2019 11:00pm Multivitamin Tablet (1 source) Start: 05-25-2019 End: 09-05-2022 take 1 tablet by mouth once daily in the morning Multivitamin Tablet Discontinued 1 TAB PO Every morning May 25, 2019 12:00am September 05, 2022 9:24am naproxen 500 mg oral tablet (20 sources) Nonsteroidal Anti-inflammatory Drug Start: 04-21-2020 End: 07-11-2022 take 1 tablet by mouth every twelve hours Naproxen 500 mg tablet Discontinued 500 MG PO Q12H April 21, 2020 1:00am July 11, 2022 12:58pm Start: 05-25-2019 End: 08-28-2019 take 1 tablet by mouth twice daily Naproxen 500 mg Tablet Discontinued 500 MG PO Twice daily May 25, 2019 12:00am August 28, 2019 8:41am oxyCODONE hydrochloride 5 mg oral tablet (10 sources) Opioid Agonist Start: 08-28-2019 End: 04-22-2020 take 1 tablet by mouth every four to six hours as needed for pain Oxycodone 5 mg Tablet Discontinued 5 MG PO EVERY 4-6 HOURS as needed for Pain Scale 1 - 5 70 14 August 28, 2019 April 22, 2020 4:06pm potassium gluconate 2.13 meq oral tablet (10 sources) Start: 07-24-2019 End: 12-02-2020 take 1 tablet by mouth once daily Potassium Gluconate 500 mg (83 mg) Tablet Discontinued 75 MG PO Daily July 24, 2019 12:00am December 02, 2020 9:29am 0.25 mg, 0.5 mg dose 1.5 ml semaglutide 1.34 mg/ml pen injector (6 sources) Start: 07-30-2024 End: 08-28-2024 inject 0.25 mg by subcutaneous injection every week semaglutide (Ozempic, 0.25 or 0.5 MG/DOSE,) 2 MG/1.5ML solution pen-injector Indications: Type 2 diabetes mellitus with peripheral neuropathy (HCC) Inject 0.25 mg under the skin 1 (one) time per week 3 mL 1 07/30/2024 08/28/2024 Discontinued (Cost of medication) tiotropium 0.018 mg inhalation powder (20 sources) Anticholinergic Start: 05-25-2019 End: 04-26-2022 take 1 puff(s) by inhalation once daily in the morning Tiotropium [place] 18 mcg capsule, w/inhalation device Discontinued 1 PUFF INHALATION Every morning May 25, 2019 12:00am April 26, 2022 3:46pm Start: 05-25-2019 End: 04-26-2022 take 1 puff(s) by inhalation once daily in the morning Tiotropium [place] Discontinued 1 PUFF INHALATION Every morning May 25, 2019 12:00am April 26, 2022 3:46pm Start: 05-15-2018 End: 05-25-2019 take 1 capsule by inhalation once daily Tiotropium [place] 18 mcg capsule, w/inhalation device Discontinued 18 MCG INHALATION Daily May 15, [...] foot] Onset: 3 07-23-2022 Chronic Acute bronchitis (5 sources) Acute bronchitis; Translations: [Acute bronchitis, unspecified] 01-31-2024 Episodic Adjustment disorders (20 sources) Stress; Translations: [Reaction to severe stress, unspecified] Onset: 3 07-23-2022 Chronic Anxiety disorders (5 sources) Posttraumatic stress disorder; Translations: [Post-traumatic stress disorder, unspecified] Chronic Cataract (20 sources) Bilateral age-related cataract; Translations: [Combined forms of age-related cataract, bilateral] Onset: 4 02-25-2024 Chronic Chronic kidney disease (20 sources) Chronic [...] diabetic chronic kidney disease] Onset: 1 Resolved: 5 Chronic Diabetes mellitus without complication (20 sources) [...] depressed, moderate] Onset: 3 07-23-2022 Chronic Mycoses (13 sources) Onychomycosis; Translations: [Tinea unguium] 04-09-2023 Episodic Noninfectious gastroenteritis (3 sources) Chronic diarrhea; Translations: [Noninfective gastroenteritis and [...] gland] 12-30-2023 Episodic Other connective tissue disease (13 sources) Metatarsalgia of left foot; Translations: [Metatarsalgia, [...] Chronic Other diseases of kidney and ureters (4 sources) Abnormal renal function; Translations: [Disorder of kidney and ureter, unspecified] 12-30-2023 Episodic Other endocrine disorders (5 sources) Disorder of adrenal gland; Translations: [Disorder of adrenal gland, unspecified] Chronic Other endocrine disorders (20 sources) Adrenal mass; Translations: [Disorder of adrenal gland, unspecified] Onset: 3 07-23-2022 Chronic Other endocrine disorders (6 sources) Disorder of adrenal gland, unspecified; Translations: [...] Chronic Other nervous system disorders (2 sources) Piriformis syndrome; Translations: [Lesion of sciatic nerve, [...] Translations: [Pain in right wrist] Episodic Other non-traumatic joint disorders (1 source) Hip pain Onset: 5 Episodic Other nutritional; endocrine; and metabolic disorders (5 sources) Obese class I; Translations: [Body mass index (BMI) 33.0-33.9, adult] Chronic Other nutritional; endocrine; and metabolic disorders (20 sources) Hypomagnesemia; Translations: [Hypomagnesemia] Onset: 4 04-25-2023 Chronic Other nutritional; endocrine; and metabolic disorders (20 sources) Severe obesity; Translations: [Morbid (severe) obesity due to excess calories] Onset: 3 Resolved: 4 04-02-2023 Chronic Other nutritional; endocrine; and metabolic disorders (8 sources) Hypomagnesemia; Translations: [Disorders of magnesium metabolism] Onset: 2 Resolved: 2 Chronic Other nutritional; endocrine; and metabolic disorders (20 sources) Hypercalcemia; Translations: [Hypercalcemia] Onset: 3 04-27-2022 Chronic Other nutritional; endocrine; and metabolic disorders (12 sources) Hypercalcemia; Translations: [Hypercalcemia] Onset: 3 Chronic [...] sources) Long-term current use of insulin; Translations: [FCI (current) use of insulin] Onset: 11-29-2022 Resolved: 04-02-2023 04-02-2023 Episodic Other aftercare (4 sources) Other correction (current) drug therapy; Translations: [OTH FIRE PATROL CURRENT DRUG THERAPY] Onset: 08-30-2021 Episodic Other connective tissue disease (20 sources) History of lumbar fusion; Translations: [Arthrodesis status] Onset: 01-31-2024 10-01-2023 Episodic Other connective tissue disease (20 sources) Trochanteric bursitis of left hip; Translations: [Trochanteric bursitis, left hip] Onset: 10-23-2023 01-31-2024 Episodic Other connective tissue disease (2 sources) Pain of toes of bilateral feet; Translations: [Pain in right toe(s)] 11-04-2023 Episodic Other gastrointestinal disorders (20 sources) Dysphagia; [...] sciatica, left side] Onset: 07-23-2022 07-23-2022 Episodic Unclassified (2 sources) DM with moderate NPDR with ME (chief complaint) Onset: 06-23-2024 Unclassified (2 sources) Follow Up of NPDR (chief complaint) Onset: 04-04-2023 Unclassified (3 sources) NPDR (chief complaint) Onset: 09-27-2022 Resolved: 10-13-2024 Unclassified (2 sources) dr (chief complaint) Onset: 06-07-2022 Results Test Name Value Interpretation Reference Range Facility HbA1c (Bld) [Mass fraction]o n 12-01-2024 Interpretation and review of laboratory results Abnormal [facility] - Hematology and Cell count[facility] 12-01-2024 HbA1c (Bld) [Mass fraction] 10.1 % [facility] HbA1c (Bld) [Mass fraction]o n 07-30-2024 Interpretation and review of laboratory results Abnormal [facility] - Hematology and Cell countson 07-30-2024 HbA1c (Bld) [Mass fraction] 9.1 % [facility] METANEPHRINES, FRAC., PL. FR EEon 07-16-2024 METANEPHRINE, PL <25.0 0.0 - 88.0 pg/mL [facility] Comment on above: This test was develo ped and its performance characteristics determined by [facility]. It has not been cleared or approved by the Food and Drug Administration. Performed at: [address] [id number] Procurement Inspector: Loni Olvera MD, Phone: [phone] NORMETANEPHRINE, PL 31.4 pg/mL 0.0 - 244.0 pg/mL [facility] Comment on above: This test was develo ped and its performance characteristics determined by [facility]. It has not been cleared or approved by the Food and Drug Administration. CLINISYNC [facility] ALL BASIC METABOLIC PANELon 07-08-2024 Anion gap [Moles/Vol] 21.4 mmol/L [facility] Calcium [Mass/Vol] 9.6 mg/dL 8.5 - 10. 1 mg/dL [facility] Chloride [Moles/Vol] 101 mmol/L 98 - 10 7 mmol/L [facility] CO2 [Moles/Vol] 20.5 mmol/L Low 21.0 - 32.0 mmol/L [facility] Creatinine [Mass/Vol] 1.34 mg/dL High 0.55 - 1.02 mg/dL [facility] GFR/1.73 sq M.predicted CKD-EPI (S/P/Bld) [Vol rate/Area] 50 Low >=60 mL/min/1.7 3m 2 [facility] Glucose [Mass/Vol] 334 mg/dL High 74 - 106 mg/dL [facility] Interpretation and review of laboratory results Abnormal [facility] Potassium [Moles/Vol] 3.9 mmol/L 3.5 - 5.1 mmol/L [facility] Sodium [Moles/Vol] 139 mmol/L 136 - 145 mmol/L [facility] TBH EGFR-NON [address] [facility] 42 Low >=6 0 mL/min/1.7 3m 2 [facility] Urea nitrogen [Mass/Vol] 26 mg/dL High 7.0 - 18.0 mg/dL [facility] Urea nitrogen/Creatinine [Mass ratio] 19.4 mg/mg [facility] Erythrocyte distribution wid th Auto (RBC) [Ratio]on 06-10-2024 Erythrocyte distribution width (RBC) [Ratio] Erythrocyte distribution width [Ratio] by Automated count 11.0-15.0 [facility] Estimated glomerular filtrat ion rate (GFR) non- Americanon 06-10-2024 GFR/1.73 sq M.predicted among non-blacks MDRD (S/P/Bld) [Vol rate/Area] Estimated glomerular filtration rate (GFR) non- Low >=60 mL/min/1.7 3m 2 [facility] HMHP CBC WITH PLATELET NO DI FFERENTIALon 06-10-2024 Erythrocyte distribution width (RBC) [Ratio] 12.9 % 11.0 - 15.0 % [facility] Hematocrit (Bld) [Volume fraction] 43.7 % 36.0 - 48.0 % [facility] Hemoglobin (Bld) [Mass/Vol] 14.6 g/dL 12.0 - 16.0 g/dL [facility] Interpretation and review of laboratory results Abnormal [facility] MCH (RBC) [Entitic mass] 30.4 pg 26. 7 - 34.0 pg [facility] MCHC (RBC) [Mass/Vol] 33.4 g/dL 29.9 - 35.2 g/dL [facility] MCV (RBC) [Entitic vol] 91 fL 81.0 - 99.0 fL [facility] Platelet mean volume (Bld) [Entitic vol] 11.2 fL 9.5 - 13.5 fL [facility] TBH PLT 263 [facility] TBH RBC 4.8 [facility] WBC 12.8 High [facility] Hematocrit Auto (Bld) [Volum e fraction]on 06-10-2024 Hematocrit (Bld) [Volume fraction] Hematocrit [Volume Fraction] of Blood by Automated count 36.0-48.0 [facility] Hemoglobin [Mass/volume] in Bloodon 06-10-2024 Hemoglobin (Bld) [Mass/Vol] Hemoglobin [Mass/volume] in Blood 12.0-16.0 [facility] Laboratory - Chemistry and C hemistry - challengeon 06-10-2024 Albumin [Mass/Vol] 3.1 g/dL Low 3.4-5.0 [facility] Calcium [Mass/Vol] 9.4 mg/dL 8.5-10.1 [facility] Chloride [Moles/Vol] 103 mmol/L 98-107 [facility] CO2 [Moles/Vol] 25.1 mmol/L 21.0-32.0 [facility] Creatinine [Mass/Vol] 1.18 mg/dL High 0.55-1.02 [facility] GFR/1.73 sq M.predicted MDRD (S/P/Bld) [Vol rate/Area] 58 mL/min/{1.73_m2} Low >=60 mL/min/1.7 3m 2 [facility] Glucose [Mass/Vol] 200 mg/dL High 74-106 [facility] Magnesium [Mass/Vol] 1.3 mg/dL Low 1.8-2.4 [facility] Potassium [Moles/Vol] 4.0 mmol/L 3.5-5.1 [facility] Sodium [Moles/Vol] 141 mmol/L 136-145 [facility] Urate [Mass/Vol] 4.8 mg/dL 2.6-6.0 [facility] Urea nitrogen [Mass/Vol] 14.0 mg/dL 7.0-18.0 [facility] Urea nitrogen/Creatinine [Mass ratio] 11.9 mg/mg [facility] Laboratory - Urinalysison Protein (U) [Mass/Vol] 762.4 mg/dL High <=11.9 [facility] Leukocytes [#/volume] correc kaykay for nucleated erythrocytes in Blood by Automated counon 06-10-2024 WBC corrected for nucl RBC Auto (Bld) [#/Vol] Leukocytes [#/volume] corrected for nucleated erythrocytes in Blood by Automated coun High 4.0-11.0 [facility] MCH Auto (RBC) [Entitic mass ]on 06-10-2024 MCH (RBC) [Entitic mass] MCH [Entitic ma ss] by Automated count 26.7-34.0 [facility] MCHC Auto (RBC) [Mass/Vol]on 06-10-2024 MCHC (RBC) [Mass/Vol] MCHC [Mass/volume] by Automated count 29.9-35.2 [facility] MCV Auto (RBC) [Entitic vol] on 06-10-2024 MCV (RBC) [Entitic vol] MCV [Entitic vol ume] by Automated count 81.0-99.0 [facility] No Panel Informationon 06-10 25-Hydroxy Vitamin D Total 12.7 ng/mL [facility] Comment on above: <20 ng/mL Vit D defi cient20-<30 ng/mL Vit D [id number] ng/mL Vit D sufficient>100 ng/mL Potential Toxicity Parathyroid Hormone (Intact) 27 pg/mL 15-65 [facility] Comment on above: Performed at: [address] [id number] Director: Duke Peguero PhD, Phone: [phone] Phosphorus Level 3.3 mg/dL 2.6-4.7 [facility] Urine Random Creatinine 356.57 mg/dL High 20.0 0-300. 00 [facility] Platelet mean volume Auto (B ld) [Entitic vol]on 06-10-2024 Platelet mean volume (Bld) [Entitic vol] Platelet mean volume [Entitic volume] in Blood by Automated count 9.5-13.5 [facility] Platelets Auto (Bld) [#/Vol] on 06-10-2024 Platelets (Bld) [#/Vol] Platelets [#/vol ume] in Blood by Automated count 150-450 [facility] RBC Auto (Bld) [#/Vol]on RBC (Bld) [#/Vol] Erythrocytes [#/volu me] in Blood by Automated count 4.20-5.40 [facility] Serum or plasma anion gap de terminationon 06-10-2024 Anion gap [Moles/Vol] Serum or plasma an ion gap determination [facility] Urine protein/creatinine rat ioon 06-10-2024 Protein/Creatinine (U) [Ratio] Urine protein/creatinine ratio [facility] BI MAMMOGRAM SCREENING TOMOS YNTHESIS BILATERALon 05-29-2024 [...] 05-08-2024 Basophils (Bld) [#/Vol] 51 10*3/uL [facility] Basophils/100 WBC (Bld) 0.4 % N [facility] Eosinophils (Bld) [#/Vol] 115 10*3/uL [facility] Eosinophils/100 WBC (Bld) 0.9 % [facility] Erythrocyte distribution width (RBC) [Ratio] 13.4 % 11.0 - 15.0 % [facility] Hematocrit (Bld) [Volume fraction] 44.5 % 35.0 - 45.0 % [facility] Hemoglobin (Bld) [Mass/Vol] 14.6 g/dL 11.7 - 15.5 g/dL [facility] Interpretation and review of laboratory results Abnormal [facility] Lymphocytes (Bld) [#/Vol] 3699 10*3/uL [facility] Lymphocytes/100 WBC (Bld) 28.9 % [facility] MCH (RBC) [Entitic mass] 30.8 pg 27. 0 - 33.0 pg [facility] MCHC (RBC) [Mass/Vol] 32.8 g/dL 32.0 - 36.0 g/dL [facility] Comment on above: For adults, a slight decrease in the calculated MCHC value (in the range of 30 to 32 g/dL) is most likely not clinically significant; however, it should be interpreted with caution in correlation with other red cell parameters and the patient's clinical condition. MCV (RBC) [Entitic vol] 93.9 fL 80.0 - 100.0 fL [facility] Monocytes (Bld) [#/Vol] 666 10*3/uL [facility] Monocytes/100 WBC (Bld) 5.2 % N [facility] Neutrophils (Bld) [#/Vol] 8269 10*3/uL High [facility] Neutrophils/100 WBC (Bld) 64.6 % [facility] Platelet mean volume (Bld) [Entitic vol] 10.9 fL 7.5 - 12.5 fL [facility] Platelets (Bld) [#/Vol] 287 10*3/uL [facility] RBC (Bld) [#/Vol] 4.74 10*6/uL [facility] WBC (Bld) [#/Vol] 12.8 10*3/uL High [facility] COLLECTION KIT GIVEN TO PATIENT. PATIENT ADVISED TO RETURN. [employer] Organizat ion Information Site ID: QPT Name: [employer] [facility] Address: [address] [place] [address], [address] [place] [id number] Director: Senthil Ramsey MD [facility] XR Abdomen Single viewon Views: 5 Findings: [...] No acute radiographic findings in the abdomen. [facility] XR Abdomen Single viewOrdere d By: Enoi Neves on 05-08-2024 [facility] Work Phone: Laboratory - Hematology and Cell countson 05-07-2024 HbA1c (Bld) [Mass fraction] 9.1 % [facility] No Panel Informationon 05-07 [facility] XR ABDOMEN 2 VIEWon 05-07-19 XR [...] Abdomen Single viewon Radiology Study observation (narrative) [facility] CBC W Auto Differential pane l (Bld)on 05-06-2024 Basophils (Bld) [#/Vol] 72 10*3/uL N [facility] Basophils/100 WBC (Bld) 0.5 % N [facility] Eosinophils (Bld) [#/Vol] 101 10*3/uL [facility] Eosinophils/100 WBC (Bld) 0.7 % [facility] Erythrocyte distribution width (RBC) [Ratio] 13.4 % 11.0 - 15.0 % [facility] Hematocrit (Bld) [Volume fraction] 45.4 % High 35.0 - 45.0 % [facility] Hemoglobin (Bld) [Mass/Vol] 14.8 g/dL 11.7 - 15.5 g/dL [facility] Lymphocytes (Bld) [#/Vol] 3787 10*3/uL [facility] Lymphocytes/100 WBC (Bld) 26.3 % [facility] MCH (RBC) [Entitic mass] 30 pg 27. 0 - 33.0 pg [facility] MCHC (RBC) [Mass/Vol] 32.6 g/dL 32.0 - 36.0 g/dL [facility] Comment on above: For adults, a slight decrease in the calculated MCHC value (in the range of 30 to 32 g/dL) is most likely not clinically significant; however, it should be interpreted with caution in correlation with other red cell parameters and the patient's clinical condition. MCV (RBC) [Entitic vol] 91.9 fL 80.0 - 100.0 fL [facility] Monocytes (Bld) [#/Vol] 662 10*3/uL [facility] Monocytes/100 WBC (Bld) 4.6 % N [facility] Neutrophils (Bld) [#/Vol] 9778 10*3/uL High [facility] Neutrophils/100 WBC (Bld) 67.9 % [facility] Platelet mean volume (Bld) [Entitic vol] 10.6 fL 7.5 - 12.5 fL [facility] Platelets (Bld) [#/Vol] 267 10*3/uL [facility] RBC (Bld) [#/Vol] 4.94 10*6/uL [facility] WBC (Bld) [#/Vol] 14.4 10*3/uL High [facility] Laboratory - Chemistry and C hemistry - challengeon 05-06-2024 Albumin [Mass/Vol] 4 g/dL 3.6 - 5.1 g/dL [facility] Albumin/Globulin [Mass ratio] 1.5 {ratio} [facility] ALP [Catalytic activity/Vol] 50 U/L 37 - 153 U/L [facility] ALT [Catalytic activity/Vol] 16 U/L 6 - 29 U/L [facility] Amylase [Catalytic activity/Vol] 17 U/L Low 21 - 101 U/L [facility] AST [Catalytic activity/Vol] 11 U/L 10 - 35 U/L [facility] Bilirubin [Mass/Vol] 0.3 mg/dL 0.2 - 1 .2 mg/dL [facility] Calcium [Mass/Vol] 9.9 mg/dL 8.6 - 10. 4 mg/dL [facility] Chloride [Moles/Vol] 102 mmol/L 98 - 11 0 mmol/L [facility] CO2 [Moles/Vol] 27 mmol/L 20 - 32 mmol/L [facility] Creatinine [Mass/Vol] 1.06 mg/dL High 0.50 - 1.03 mg/dL [facility] GFR/1.73 sq M.predicted among non-blacks MDRD (S/P/Bld) [Vol rate/Area] 63 mL/min/{1.73_m2} > OR = 60 mL/min/1.7 3m2 [facility] Globulin (S) [Mass/Vol] 2.6 g/dL N [facility] Glucose [Mass/Vol] 175 mg/dL High 65 - 99 mg/dL [facility] Comment on above: Fasting reference interval For someone without known diabetes, a glucose value >125 mg/dL indicates that they may have diabetes and this should be confirmed with a follow-up test. Potassium [Moles/Vol] 4.3 mmol/L 3.5 - 5.3 mmol/L [facility] Protein [Mass/Vol] 6.6 g/dL 6.1 - 8.1 g/dL [facility] Sodium [Moles/Vol] 140 mmol/L 135 - 146 mmol/L [facility] Urea nitrogen [Mass/Vol] 20 mg/dL 7 - 25 mg/dL [facility] Urea nitrogen/Creatinine [Mass ratio] 19 mg/mg [facility] No Panel Informationon 05-06 Interpretation and review of laboratory results Abnormal [facility] Performing Organizat ion Information Site ID: QPT Name: [employer] [facility] Address: [address] [place] [id number] Director: Senthil Ramsey MD [facility] Glucose Glucometer (BldC) [M ass/Vol]on 04-24-2024 Glucose [Mass/Vol] 200 mg/dL High 65-99 [facility] HbA1c (Bld) [Mass fraction]o n 01-20-2024 Interpretation and review of laboratory results Abnormal [facility] Laboratory - Hematology and Cell countson 01-20-2024 HbA1c (Bld) [Mass fraction] 9.8 % [facility] DEPAKENE/ VALPROIC ACIDo n 2023 Interpretation and review of laboratory results Abnormal [facility] VALPROIC ACID 27.3 ug/mL Low 50.0 - 100.0 ug/mL [facility] Erythrocyte distribution wid th Auto (RBC) [Ratio]on 11-13-2023 Erythrocyte distribution width (RBC) [Ratio] 13.2 % 11.0-15.0 [facility] Estimated glomerular filtrat ion rate (GFR) non- Americanon 11-13-2023 GFR/1.73 sq M.predicted among non-blacks MDRD (S/P/Bld) [Vol rate/Area] 55 mL/min/{1.73_m2} Low >=60 [facility] CBC WITH PLATELET NO DI FFERENTIALon 11-13-2023 Erythrocyte distribution width (RBC) [Ratio] 13.2 % 11.0 - 15.0 % [facility] Hematocrit (Bld) [Volume fraction] 46.7 % 36.0 - 48.0 % [facility] Hemoglobin (Bld) [Mass/Vol] 15.6 g/dL 12.0 - 16.0 g/dL [facility] Interpretation and review of laboratory results Abnormal [facility] MCH (RBC) [Entitic mass] 30.4 pg 26. 7 - 34.0 pg [facility] MCHC (RBC) [Mass/Vol] 33.4 g/dL 29.9 - 35.2 g/dL [facility] MCV (RBC) [Entitic vol] 91.0 fL 81.0 - 99.0 fL [facility] Platelet mean volume (Bld) [Entitic vol] 10.9 fL 9.5 - 13.5 fL [facility] PLT 259 [facility] RBC 5.13 [facility] WBC 11.8 High [facility] Hematocrit Auto (Bld) [Volum e fraction]on 11-13-2023 Hematocrit (Bld) [Volume fraction] 46.7 % 36.0-48.0 [facility] Hemoglobin [Mass/volume] in Bloodon 11-13-2023 Hemoglobin (Bld) [Mass/Vol] 15.6 g/dL 12.0-16.0 [facility] Laboratory - Chemistry and C hemistry - challengeon 11-13-2023 Albumin [Mass/Vol] 3.1 g/dL Low 3.4-5.0 [facility] Calcium [Mass/Vol] 9.7 mg/dL 8.5-10.1 [facility] Chloride [Moles/Vol] 102 mmol/L 98-107 [facility] CO2 [Moles/Vol] 29.3 mmol/L 21.0-32.0 [facility] Creatinine [Mass/Vol] 1.05 mg/dL High 0.55-1.02 [facility] GFR/1.73 sq M.predicted MDRD (S/P/Bld) [Vol rate/Area] mL/min/{1.73_m2} >=60 [facility] Glucose [Mass/Vol] 120 mg/dL High 74-106 [facility] Magnesium [Mass/Vol] 1.5 mg/dL Low 1.8-2.4 [facility] Potassium [Moles/Vol] 3.7 mmol/L 3.5-5.1 [facility] Sodium [Moles/Vol] 143 mmol/L 136-145 [facility] Urate [Mass/Vol] 7.5 mg/dL High 2.6-6.0 [facility] Urea nitrogen [Mass/Vol] 17.0 mg/dL 7.0-18.0 [facility] Urea nitrogen/Creatinine [Mass ratio] 16.2 mg/mg [facility] Bilirubin Ql (U) Negative NEGATIVE [facility] Glucose (U) [Mass/Vol] Negative NEGATIVE [facility] Ketones Ql (U) Negative NEGATIVE [facility] pH (U) 5.5 [pH] 5.0-9.0 [facility] Specific gravity (U) [Rel density] >=1.030 Abnormal 1.005-1.02 5 [facility] Urobilinogen Qn (U) 0.2 {Jennifer'U}/dL 0.2-1.0 [facility] Laboratory - Specimen inform ationon 11-13-2023 Appearance (U) CLEAR CLEAR [facility] Color (U) YELLOW YELLOW [facility] Laboratory - Urinalysison Leukocyte esterase Test strip Ql (U) Negative NEGATIVE [facility] Mucus Ql (Urine sed) SMALL Abnormal NONE SEEN [facility] Nitrite Ql (U) Negative NEGATIVE [facility] Protein (U) [Mass/Vol] 725.5 mg/dL High <=11.9 [facility] Protein Ql (U) >=300 mg/dL Abnormal NEG/TRACE [facility] Leukocytes [#/volume] correc kaykay for nucleated erythrocytes in Blood by Automated counon 11-13-2023 WBC corrected for nucl RBC Auto (Bld) [#/Vol] 11.8 10 3/uL High 4.0-11.0 [facility] MCH Auto (RBC) [Entitic mass ]on 11-13-2023 MCH (RBC) [Entitic mass] 30.4 pg 26.7-34.0 [facility] MCHC Auto (RBC) [Mass/Vol]on 11-13-2023 MCHC (RBC) [Mass/Vol] 33.4 g/dL 29.9-35.2 [facility] MCV Auto (RBC) [Entitic vol] on 11-13-2023 MCV (RBC) [Entitic vol] 91.0 fL 81.0-99.0 [facility] No Panel Informationon 11-12 Parathyroid Hormone (Intact) 25 pg/mL 15-65 [facility] Comment on above: Performed at: [facility] [address] [id number] Director: Duke Peguero PhD, Phone: [phone] Phosphorus Level 3.8 mg/dL 2.6-4.7 [facility] Urine Bacteria SMALL #/HPF Abnormal NONE SEEN [facility] Urine Occult Blood MODERATE Abnormal NEGATIVE [facility] Urine Other Casts NONE SEEN #/LPF NONE SEEN [facility] Urine Other Crystals None Seen #/HPF None Seen [facility] Urine Random Creatinine 356.96 mg/dL High 20.0 0-300. 00 [facility] Urine RBC 2-5 #/HPF Abnormal 0-2 [facility] Urine Squamous Epithelial Cells MODERATE #/LPF Abnormal NONE/RARE [facility] Urine WBC 0-2 #/HPF Abnormal NONE SEEN [facility] Platelet mean volume Auto (B ld) [Entitic vol]on 11-13-2023 Platelet mean volume (Bld) [Entitic vol] 10.9 fL 9.5-13.5 [facility] Platelets Auto (Bld) [#/Vol] on 11-13-2023 Platelets (Bld) [#/Vol] 259 10 3/uL 150-450 [facility] RBC Auto (Bld) [#/Vol]on RBC (Bld) [#/Vol] 5.13 10 6/uL 4.20-5.40 [facility] Serum or plasma anion gap de terminationon 11-13-2023 Anion gap [Moles/Vol] 15.4 mmol/L [facility] Urine protein/creatinine rat ioon 11-13-2023 Protein/Creatinine (U) [Ratio] 2.03 [facility] XR lumbar spine 6V w bending on 09-30-2023 XR lumbar spine 6V w bending [facility] [place] [address] XRay Report Signed Patient: Radha Jones MR#: [id number] : 1970 Acct:[id number] Age/Sex: 52 / F ADM Date: 09/30/23 Loc: XD Room: Type: [facility] Attending Dr: Jeovanny Mendes MD Copies to: [...] Jenaro Stockton M.D.09/30/2023 3:31 PM Dictation Location: [place] [address] Transcribed By: [facility] 09/30/23 1531 Dictated By: Jenaro Stockton DO 09/30/23 1530 Signed By: 09/30/23 153 Normal [facility] POCT EKGOrdered By: Mary Kay Finley on 03-15-2023 [facility] Creatinine (Bld) [Mass/Vol]O rdered By: Peyton Hoskins on 07-25-2022 Creatinine [Mass/Vol] 1.0 mg/dL 0.6-1.3 [facility] Comment on above: ER/ESD physician is notified/shown all ISTAT results.Critical values may be confirmed by laboratory testing ifdeemed necessary by ER attending doctor. Creatinine [Mass/volume] in Serum or PlasmaOrdered By: Peyton Hoskins on 07-25-2022 Creatinine [Mass/Vol] 0.95 mg/dL 0.60-1.20 [facility] No Panel InformationOrdered By: Peyton Hoskins on 07-25-2022 Estimated GFR (CKD-EPI) > 60.0 mL/Min [facility] Creatinine Clearance (Chem N/A [facility] Urea nitrogen [Mass/volume] in Serum or PlasmaOrdered By: Peyton Hoskins on 07-25-2022 Urea nitrogen [Mass/Vol] 17 mg/dL 10-02 [facility] CALCIUM 24 HR URINEon 2022 CALC, 24 HR UR 202.8 mg/24 hr Normal 100.0-300. 0 [facility] Comment on above: Performed By: #### C [id number] #### [facility] [address] [address] [address] Tyree Botello UR CALCIUM 15.6 mg/dL Normal 5.1-21.0 [facility] Comment on above: Performed By: #### C [id number] #### [facility] [address] [address] [address] Tyree Botello UR TOT VOL 1300 ml/24 HR Normal [facility] Comment on above: Performed By: #### C [id number] #### [facility] [address] [address] [address] Tyree Botello MAGNESIUMon 07-18-2022 Magnesium [Mass/Vol] 1.4 mg/dL Critically low 1.8-2.4 [facility] Comment on above: Performed By: #### M G, RENAL, URIC #### [facility] [address] [place] [address] Dr. Tyree Botello RENAL FUNCTION PANELon 07-18 Albumin [Mass/Vol] 3.1 g/dL Critically low 3.4-5.0 [facility] Comment on above: Performed By: #### M G, RENAL, URIC #### [facility] [address] [place] [address] Dr. Tyree Botello Calcium [Mass/Vol] 9.7 mg/dL Normal 8.5-10.1 [facility] Comment on above: Performed By: #### M G, RENAL, URIC #### [facility] [address] [place] [address] Dr. Tyree Botello Chloride [Moles/Vol] 102 mmol/L Normal 98-107 [facility] Comment on above: Performed By: #### M G, RENAL, URIC #### [facility] [address] [place] [address] Dr. Tyree Botello CO2 [Moles/Vol] 26.1 mmol/L Normal 21.0-32.0 [facility] Comment on above: Performed By: #### M G, RENAL, URIC #### [facility] [address] [address] [address] Tyree Botello Creatinine [Mass/Vol] 1.13 mg/dL Critically high 0.55-1.02 [facility] Comment on above: Performed By: #### M G, RENAL, URIC #### [facility] [address] [place] [address] Dr. Tyree Botello EGFR-AF [facility] >60 Normal >=60 [facility] Comment on above: Performed By: #### M G, RENAL, URIC #### [facility] [address] [place] [address] Dr. Tyree Botello EGFR-NON AF [facility] 51 mL/min/1.73m2 Critically low >=60 [facility] Comment on above: Performed By: #### M G, RENAL, URIC #### [facility] [address] [place] [address] Dr. Tyree Botello Glucose [Mass/Vol] 355 mg/dL Critically high 74-106 T [facility] Comment on above: Performed By: #### M G, RENAL, URIC #### [facility] [address] [place] [address] Dr. Tyree Botello Phosphate [Mass/Vol] 3.4 mg/dL Normal 2.6-4.7 [facility] Comment on above: Performed By: #### M G, RENAL, URIC #### [facility] [address] [place] [address] Dr. Tyree Botello Potassium [Moles/Vol] 4.3 mmol/L Normal 3.5-5.1 [facility] Comment on above: Performed By: #### M G, RENAL, URIC #### [facility] [address] [place] [address] Dr. Tyree Botello Sodium [Moles/Vol] 138 mmol/L Normal 136-145 [facility] Comment on above: Performed By: #### M G, RENAL, URIC #### [facility] [address] [place] [address] Dr. Tyree Botello Urea nitrogen [Mass/Vol] 16.0 mg/dL Normal 7.0-18.0 [facility] Comment on above: Performed By: #### M G, RENAL, URIC #### [facility] [address] [place] [address] Dr. Tyree Botello PTH INTACTon 07-03-2022 PTH, Intact 16 pg/mL Normal 15-65 [facility] Comment on above: Performed By: #### M G, RENAL, URIC #### [facility] [address] [place] [address] Dr. Tyree Botello HEMOGRAM AND PLATELon 2022 Hematocrit (Bld) [Volume fraction] 44.5 % Normal 36.0-48.0 [facility] Comment on above: Performed By: #### M G, RENAL, URIC #### [facility] [address] [place] [address] Dr. Tyree Botello Hemoglobin (Bld) [Mass/Vol] 15.0 g/dL Normal 12.0-16.0 [facility] Comment on above: Performed By: #### M G, RENAL, URIC #### [facility] [address] [place] [address] Dr. Tyree Botello MCH (RBC) [Entitic mass] 30.2 pg Normal 26.7-34.0 [facility] Comment on above: Performed By: #### M G, RENAL, URIC #### [facility] [address] [place] [address] Dr. Tyree Botello MCHC (RBC) [Mass/Vol] 33.7 g/dL Normal 29.9-35.2 [facility] Comment on above: Performed By: #### M G, RENAL, URIC #### [facility] [address] [place] [address] Dr. Tyree Botello MCV (RBC) [Entitic vol] 89.5 fL Normal 81.0-99.0 [facility] Comment on above: Performed By: #### M G, RENAL, URIC #### [facility] [address] [place] [address] Dr. Tyree Botello PLT 263 103/ul Normal 150-450 [facility] Comment on above: Performed By: #### M G, RENAL, URIC #### [facility] [address] [place] [address] Dr. Tyree Botello RBC 4.97 106/ul Normal 4.20-5.40 [facility] Comment on above: Performed By: #### M G, RENAL, URIC #### [facility] [address] [address] [address] Tyree Botello WBC 12.0 103/ul Critically high 4.0-11.0 [facility] Comment on above: Performed By: #### M G, RENAL, URIC #### [facility] [address] [place] [address] Dr. Tyree Botello MAGNESIUMon 07-02-2022 Magnesium [Mass/Vol] 1.2 mg/dL Critically low 1.8-2.4 [facility] Comment on above: Performed By: #### M Quinton, RENAL, URIC #### [facility] [address] [place] [address] Dr. Tyree Botello RENAL FUNCTION PANELon 07-02 Albumin [Mass/Vol] 3.1 g/dL Critically low 3.4-5.0 [facility] Comment on above: Performed By: #### M G, RENAL, URIC #### [facility] [address] [place] [address] Dr. Tyree Botello Calcium [Mass/Vol] 9.7 mg/dL Normal 8.5-10.1 [facility] Comment on above: Performed By: #### M Quinton, RENAL, URIC #### [facility] [address] [place] [address] Dr. Tyree Botello Chloride [Moles/Vol] 104 mmol/L Normal 98-107 [facility] Comment on above: Performed By: #### M G, RENAL, URIC #### [facility] [address] [place] [address] Dr. Tyree Botello CO2 [Moles/Vol] 28.6 mmol/L Normal 21.0-32.0 [facility] Comment on above: Performed By: #### M G, RENAL, URIC #### [facility] [address] [place] [address] Dr. Tyree Botello Creatinine [Mass/Vol] 0.95 mg/dL Normal 0.55-1.02 [facility] Comment on above: Performed By: #### M G, RENAL, URIC #### [facility] [address] [address] [address] Tyree Botello EGFR-AF [facility] >60 Normal >=60 [facility] Comment on above: Performed By: #### M G, RENAL, URIC #### [facility] [address] [address] [address] Tyree Botello EGFR-NON AF [facility] >60 Normal >=60 [facility] Comment on above: Performed By: #### M G, RENAL, URIC #### [facility] [address] [address] [address] Tyree Botello Glucose [Mass/Vol] 148 mg/dL Critically high 74-106 [facility] Comment on above: Performed By: #### M G, RENAL, URIC #### [facility] [address] [place] [address] Dr. Tyree Botello Phosphate [Mass/Vol] 3.6 mg/dL Normal 2.6-4.7 [facility] Comment on above: Performed By: #### M G, RENAL, URIC #### [facility] [address] [address] [address] Tyree Botello Potassium [Moles/Vol] 4.2 mmol/L Normal 3.5-5.1 [facility] Comment on above: Performed By: #### M G, RENAL, URIC #### [facility] [address] [address] [address] Tyree Botello Sodium [Moles/Vol] 143 mmol/L Normal 136-145 [facility] Comment on above: Performed By: #### M G, RENAL, URIC #### [facility] [address] [address] [address] Tyree Botello Urea nitrogen [Mass/Vol] 14.0 mg/dL Normal 7.0-18.0 [facility] Comment on above: Performed By: #### M G, RENAL, URIC #### [facility] [address] [place] [address] Dr. Tyree Botello UA RANDOM W/MICROSCOPICon BACTERIA NONE SEEN Normal NONE SEEN [facility] Comment on above: Performed By: #### M G, RENAL, URIC #### [facility] [address] [address] [address] Tyree Botello Bilirubin Ql (U) Negative Normal NEGATIVE [facility] Comment on above: Performed By: #### M G, RENAL, URIC #### [facility] [address] [address] [address] Tyree Botello CAST SEEN Abnormal NONE SEEN [facility] Comment on above: Performed By: #### M G, RENAL, URIC #### [facility] [address] [address] [address] Tyree Botello Clarity (U) CLEAR Normal CLEAR [facility] Comment on above: Performed By: #### M G, RENAL, URIC #### [facility] [address] [place] [address] Dr. Tyree Botello Color (U) LT. YELLOW Normal YELLOW [facility] Comment on above: Performed By: #### M G, RENAL, URIC #### [facility] [address] [place] [address] Dr. Tyree Botello Crystals LM Nom (Urine sed) NONE SEEN Normal NONE SEEN [facility] Comment on above: Performed By: #### M G, RENAL, URIC #### [facility] [address] [address] [address] Tyree Botello Epithelial cells LM Ql (Urine sed) FEW Abnormal NONE SEEN /RARE [facility] Comment on above: Performed By: #### M G, RENAL, URIC #### [facility] [address] [address] [address] Tyree Botello Glucose Ql (U) Negative Normal NEGATIVE [facility] Comment on above: Performed By: #### M G, RENAL, URIC #### [facility] [address] [address] [address] Tyree Botello Hemoglobin Ql (U) SMALL Abnormal NEGATIVE [facility] Comment on above: Performed By: #### M G, RENAL, URIC #### [facility] [address] [address] [address] Tyree Botello Ketones Ql (U) Negative Normal NEGATIVE [facility] Comment on above: Performed By: #### M G, RENAL, URIC #### [facility] [address] [address] [address] Tyree Botello LEUKOCYTES Negative Normal NEGATIVE [facility] Comment on above: Performed By: #### M G, RENAL, URIC #### [facility] [address] [place] [address] Dr. Tyree Botello MUCOUS NONE SEEN Normal NONE SEEN [facility] Comment on above: Performed By: #### M G, RENAL, URIC #### [facility] [address] [place] [address] Dr. Tyree Botello Nitrite Ql (U) Negative Normal NEGATIVE [facility] Comment on above: Performed By: #### M G, RENAL, URIC #### [facility] [address] [place] [address] Dr. Tyree Botello pH (U) 5.0 [pH] Normal 5-9 [facility] Comment on above: Performed By: #### M G, RENAL, URIC #### [facility] [address] [place] [address] Dr. Tyree Botello RBC 0-2 Normal 0-2 [facility] Comment on above: Performed By: #### M G, RENAL, URIC #### [facility] [address] [place] [address] Dr. Tyree Botello SPEC GRAVITY >=1.030 Abnormal 1.005-<=1. 025 [facility] Comment on above: Performed By: #### M G, RENAL, URIC #### [facility] [address] [place] [address] Dr. Tyree Botello UA PROTEIN >300 Abnormal NEGATIVE/ TRACE [facility] Comment on above: Performed By: #### M G, RENAL, URIC #### [facility] [address] [place] [address] Dr. Tyree Botello Urobilinogen Qn (U) 0.2 {Jennifer'U}/dL Normal 0.2 - 1. 0 [facility] Comment on above: Performed By: #### M G, RENAL, URIC #### [facility] [address] [address] [address] Tyree Botello WBC 0-2 Abnormal NONE SEEN [facility] Comment on above: Performed By: #### M G, RENAL, URIC #### [facility] [address] [place] [address] Dr. Tyree Botello URIC ACID SERUMon 07-02-2022 Urate [Mass/Vol] 5.8 mg/dL Normal 2.6-6.0 [facility] Comment on above: Performed By: #### M G, RENAL, URIC #### [facility] [address] [place] [address] Dr. Tyree Botello VITAMIN D 25 OHon 07-02-2022 VIT D 25-OH 39.2 ng/mL Normal [facility] Comment on above: Performed By: #### M G, RENAL, URIC #### [facility] [address] [place] [address] Dr. Tyree Botello VIT D RANGES SEE BELOW Normal [facility] Comment on above: Result Comment: <20 ng/mL Vit D deficient 20 - <30 ng/mL Vit D insufficient 30 - 100 ng/mL Vit D sufficient >100 ng/mL Potential Toxicity Performed By: #### M G, RENAL, URIC #### [facility] [address] [place] [address] Dr. Tyree Botello Albumin [Mass/volume] in Bod y fluidOrdered By: Isela Downs on 04-27-2022 Albumin (Body fld) [Mass/Vol] 3.6 g/dL 3.2-5.5 [facility] Albumin [Mass/volume] in Ser um or PlasmaOrdered By: Isela Downs on 04-27-2022 Albumin [Mass/Vol] 3.4 g/dL 2.9-4.4 [facility] Albumin/Protein.total in 24 hour Urine by ElectrophoresisOrdered By: Isela Downs on 04-27-2022 Albumin Elph (24H U) [Mass fraction] 77.3 % . [facility] Alkaline phosphatase [Enzyma tic activity/volume] in Serum or PlasmaOrdered By: Isela Downs on 04-27-2022 ALP [Catalytic activity/Vol] 57 U/L 32-92 [facility] Aspartate aminotransferase [ Enzymatic activity/volume] in Serum or PlasmaOrdered By: Isela Downs on 04-27-2022 AST [Catalytic activity/Vol] 26 U/L 10-42 [facility] Basophils Auto (Bld) [#/Vol] Ordered By: Isela Downs on 04-27-2022 Basophils (Bld) [#/Vol] 0.1 10*3/uL 0.0-0.2 [facility] Basophils/100 WBC Auto (Bld) Ordered By: Isela Downs on 04-27-2022 Basophils/100 WBC (Bld) 0.9 % . [facility] Bilirubin.total [Mass/volume ] in Serum or PlasmaOrdered By: Isela Downs on 04-27-2022 Bilirubin [Mass/Vol] 0.4 mg/dL 0.3-1.2 [facility] Calcium [Mass/volume] in Ser um or PlasmaOrdered By: Isela Downs on 04-27-2022 Calcium [Mass/Vol] 9.6 mg/dL 8.2-10.2 [facility] Carbon dioxide, total [Moles /volume] in Serum or PlasmaOrdered By: Isela Downs on 04-27-2022 CO2 [Moles/Vol] 20.1 mmol/L 22.0-30.0 [facility] Chloride [Moles/volume] in S mary ann or PlasmaOrdered By: Isela Downs on 04-27-2022 Chloride [Moles/Vol] 101 mmol/L 95-114 [facility] Creatinine and Glomerular fi ltration rate.predicted panel (S/P/Bld)Ordered By: Isela Downs on 04-27-2022 Creatinine [Mass/Vol] 0.90 mg/dL 0.44-1.03 [facility] Eosinophils Auto (Bld) [#/Vo l]Ordered By: Isela Downs on 04-27-2022 Eosinophils (Bld) [#/Vol] 0.2 10*3/uL 0.0-0.45 [facility] Eosinophils/100 WBC Auto (Bl d)Ordered By: Isela Downs on 04-27-2022 Eosinophils/100 WBC (Bld) 1.5 % . [facility] Erythrocyte distribution wid th Auto (RBC) [Ratio]Ordered By: Isela Downs on 04-27-2022 Erythrocyte distribution width (RBC) [Ratio] 13.3 % 11.9-15.3 [facility] Estimated glomerular filtrat ion rate (GFR) non- AmericanOrdered By: Isela Downs on 04-27-2022 GFR/1.73 sq M.predicted among non-blacks MDRD (S/P/Bld) [Vol rate/Area] > 60 mL/Min [facility] Gamma globulin/Protein.total in 24 hour Urine by ElectrophoresisOrdered By: Isela Downs on 04-27-2022 Gamma globulin Elph (24H U) [Mass fraction] 3.7 % . [facility] Globulin Calc (S) [Mass/Vol] Ordered By: Isela Downs on 04-27-2022 Globulin (S) [Mass/Vol] 3.3 g/dL [facility] Glucose [Mass/volume] in Ser um or PlasmaOrdered By: Isela Downs on 04-27-2022 Glucose [Mass/Vol] 327 mg/dL 70-100 [facility] Comment on above: ADA recommended refe rence rangeRandom Glucose Reference Range is dependent on time and content of last meal. Glucose of more than 200 mg/dL in a nonstressed, ambulatory subject supports the diagnosis of Diabetes Mellitus. Hematocrit Auto (Bld) [Volum e fraction]Ordered By: Isela Downs on 04-27-2022 Hematocrit (Bld) [Volume fraction] 45.4 % 34.0-46.4 [facility] Hemoglobin [Mass/volume] in BloodOrdered By: Isela Downs on 04-27-2022 Hemoglobin (Bld) [Mass/Vol] 15.2 g/dL 11.8-15.4 [facility] Immunoglobulin light chains. kappa.free [Mass/volume] in SerumOrdered By: Isela Downs on 04-27-2022 Immunoglobulin light chains.kappa.free (S) [Mass/Vol] 25.4 mg/L 3.3-19.4 [facility] Immunoglobulin light chains. kappa.free/Immunoglobulin light chains.lambda.free [MassOrdered By: Isela Downs on 04-27-2022 Immunoglobulin light chains.kappa.free/Immuno globulin light chains.lambda.free (S) [Mass ratio] 1.62 0.26-1.65 [facility] Comment on above: Performed at: [address] [id number] Director: Duke Peguero PhD, Phone: [phone] Immunoglobulin light chains. lambda.free [Mass/volume] in Serum or PlasmaOrdered By: Isela Downs on 04-27-2022 Immunoglobulin light chains.lambda.free [Mass/Vol] 15.7 mg/L 5.7-26.3 [facility] Leukocytes [#/volume] correc kaykay for nucleated erythrocytes in Blood by Automated counOrdered By: Isela Downs on 04-27-2022 WBC corrected for nucl RBC Auto (Bld) [#/Vol] 11.3 10*3/uL 3.8-11.6 [facility] Lymphocytes Auto (Bld) [#/Vo l]Ordered By: Isela Downs on 04-27-2022 Lymphocytes (Bld) [#/Vol] 3.6 10*3/uL 1.00-4.8 [facility] Lymphocytes/100 WBC Auto (Bl d)Ordered By: Isela Downs on 04-27-2022 Lymphocytes/100 WBC (Bld) 31.7 % . [facility] MCH Auto (RBC) [Entitic mass ]Ordered By: Isela Downs on 04-27-2022 MCH (RBC) [Entitic mass] 30.0 pg 24.7-34.3 [facility] MCHC Auto (RBC) [Mass/Vol]Or dered By: Isela Downs on 04-27-2022 MCHC (RBC) [Mass/Vol] 33.5 g/dL 32.0-35.0 [facility] MCV Auto (RBC) [Entitic vol] Ordered By: Isela Downs on 04-27-2022 MCV (RBC) [Entitic vol] 89.6 fL 80-100 [facility] Monocytes Auto (Bld) [#/Vol] Ordered By: Isela Downs on 04-27-2022 Monocytes (Bld) [#/Vol] 0.5 10*3/uL 0.0-0.8 [facility] Monocytes/100 WBC Auto (Bld) Ordered By: Isela Downs on 04-27-2022 Monocytes/100 WBC (Bld) 4.8 % . [facility] Neutrophils Auto (Bld) [#/Vo l]Ordered By: Isela Downs on 04-27-2022 Neutrophils (Bld) [#/Vol] 6.9 10*3/uL 1.8-7.7 [facility] Neutrophils/100 WBC Auto (Bl d)Ordered By: Isela Downs on 04-27-2022 Neutrophils/100 WBC (Bld) 61.1 % . [facility] No Panel InformationOrdered By: Isela Downs on 04-27-2022 Urine Random Prot Electrophor Note See comment . [facility] Comment on above: Protein electrophore sis scan will follow via computer,mail, or stepdown nurse delivery.Performed at: [facility] [place] [id number] Director: Duke Peguero PhD, Phone: [phone] Estimated GFR () > 60 mL/Min [facility] Comment on above: GFR estimated refere nce range: According to KDOQI guidelines, <60 ml/min/1.73m2 is sufficient to diagnose a patient with chronic kidney disease. Pharmacy Creatinine Clearance (Chem 83.02 [facility] Protein Electrophoresis M-Sarthak Not observed g/dL Not Observed [facility] Protein Electrophoresis Note See comment . [facility] Comment on above: Protein electrophore sis scan will follow via computer,mail, or stepdown nurse delivery.Performed at: [facility] [place], [place] [id number] Director: Duke Peguero PhD, Phone: [phone] Nucleated erythrocytes [Pres ence] in Blood by Automated countOrdered By: Isela Downs on 04-27-2022 Nucleated RBC Auto Ql (Bld) 0.1 /100{WBC} 0-0.5 [facility] Platelet mean volume Auto (B ld) [Entitic vol]Ordered By: Isela Downs on 04-27-2022 Platelet mean volume (Bld) [Entitic vol] 9.5 fL 6.3-10.7 [facility] Platelets Auto (Bld) [#/Vol] Ordered By: Isela Downs on 04-27-2022 Platelets (Bld) [#/Vol] 257 10*3/uL 150-450 [facility] Potassium [Moles/volume] in Serum or PlasmaOrdered By: Isela Downs on 04-27-2022 Potassium [Moles/Vol] 4.3 mmol/L 3.5-5.1 [facility] Protein [Mass/volume] in Ser um or PlasmaOrdered By: Isela Downs on 04-27-2022 Protein [Mass/Vol] 6.9 g/dL 6.1-7.9 [facility] Protein [Mass/Vol] 6.8 g/dL 6.0-8.5 [facility] Protein [Mass/volume] in Uri neOrdered By: Isela Downs on 04-27-2022 Protein (U) [Mass/Vol] 183.6 mg/dL Not Estab. [facility] Protein.monoclonal/Protein.t otal in 24 hour Urine by ElectrophoresisOrdered By: Isela Downs on 04-27-2022 Protein.monoclonal Elph (24H U) [Mass fraction] Not observed % Not Observed [facility] RBC Auto (Bld) [#/Vol]Ordere d By: Isela Downs on 04-27-2022 RBC (Bld) [#/Vol] 5.07 10*6/uL 3.60-5.00 [facility] Serum globulin measurement ( mass/volume)Ordered By: Isela Downs on 04-27-2022 Globulin (S) [Mass/Vol] 3.4 g/dL 2.2-3.9 [facility] Serum or plasma alanine barroso otransferase measurement without P-5'-P (enzymatic activiOrdered By: Isela Downs on 04-27-2022 ALT No additional P-5'-P [Catalytic activity/Vol] 36 U/L 10-60 [facility] Serum or plasma albumin/glob ulin mass ratioOrdered By: Isela Downs on 04-27-2022 Albumin/Globulin [Mass ratio] 1.1 {ratio} [facility] Albumin/Globulin [Mass ratio] 1.0 {ratio} 0.7-1.7 [facility] Serum or plasma alpha 1 glob ulin measurement by electrophoresis (mass/volume)Ordered By: Isela Downs on 04-27-2022 Alpha 1 globulin Elph [Mass/Vol] 0.3 g/dL 0.0-0.4 [facility] Serum or plasma alpha 2 glob ulin measurement by electrophoresis (mass/volume)Ordered By: Isela Downs on 04-27-2022 Alpha 2 globulin Elph [Mass/Vol] 1.6 g/dL 0.4-1.0 [facility] Serum or plasma anion gap de terminationOrdered By: Isela Downs on 04-27-2022 Anion gap [Moles/Vol] 18.2 mmol/L 6.0-15.0 [facility] Serum or plasma beta globuli n measurement by electrophoresis (mass/volume)Ordered By: Isela Downs on 04-27-2022 Beta globulin Elph [Mass/Vol] 1.1 g/dL 0.7-1.3 [facility] Serum or plasma ugpq-1-zynot globulin measurement (mass/volume)Ordered By: Isela Downs on 04-27-2022 Mgci-3-Hckesnmptxvbg [Mass/Vol] 1.9 ug/mL 0.6-2.4 [facility] Comment on above: Siemens Immulite 200 0 Immunochemiluminometric assay (ICMA)Values obtained with different assay methods or kits cannotbe used interchangeably. Results cannot be interpreted asabsolute evidence of the presence or absence of malignantdisease.Performed at: - [facility] [id number] Director: Loni Olvera MD, Phone: [phone] Serum or plasma gamma globul in measurement by electrophoresis (mass/volume)Ordered By: Isela Downs on 04-27-2022 Gamma globulin Elph [Mass/Vol] 0.5 g/dL 0.4-1.8 [facility] Sodium [Moles/volume] in Ser um or PlasmaOrdered By: Isela Downs on 04-27-2022 Sodium [Moles/Vol] 135 mmol/L 136-146 [facility] Urea nitrogen [Mass/volume] in Serum or PlasmaOrdered By: Isela Downs on 02-17-2023 Urea nitrogen [Mass/Vol] 14 mg/dL 9 [facility] Urine alpha 1 globulin/total protein by electrophoresisOrdered By: Isela Downs on 04-27-2022 Alpha 1 globulin Elph (U) [Mass fraction] 2.6 % . [facility] Urine alpha 2 globulin/total protein ratio by electrophoresisOrdered By: Isela Downs on 04-27-2022 Alpha 2 globulin Elph (U) [Mass fraction] 4.2 % . [facility] Urine beta globulin measurem ent by electrophoresis (mass/volume)Ordered By: Isela Downs on 04-27-2022 Beta globulin Elph (U) [Mass/Vol] 12.2 % . [facility] WBC Auto (Bld) [#/Vol]Ordere d By: Isela Downs on 04-27-2022 WBC (Bld) [#/Vol] 11.3 10*3/uL 3.8-11.6 [facility] PARATHYROID HORMONE- RELATED PEPTIDEon 04-20-2022 PTHrP (PTH-Related Peptide) <2.0 Normal [facility] Comment on above: Result Comment: This test was developed and its performance characteristics determined by [employer]. It has not been cleared or approved [...] By: #### M G, RENAL, URIC #### [facility] [address] [address] [address] Tyree Botello IMMUNOFIXATION (CHERRI), URINEo n 04-16-2022 CHERRI Interpretation:U Comment Normal [facility] Comment on above: Result Comment: No m onoclonality detected. Performed By: #### M G, RENAL, URIC #### [facility] [address] [address] [address] Tyree Botello PROTEIN ELECTROPHERESIS URIN E RANDOMon 04-16-2022 Albumin, U 80.3 % Normal [facility] Comment on above: Performed By: #### M G, RENAL, URIC #### [facility] [address] [address] [address] Tyree Botello Alpha-1 Globulin U 4.3 % Normal [facility] Comment on above: Performed By: #### M G, RENAL, URIC #### [facility] [address] [address] [address] Tyree Botello Alpha-2 Glubulin U 2.9 % Normal [facility] Comment on above: Performed By: #### M G, RENAL, URIC #### [facility] [address] [address] [address] Tyree Botello Beta Globulin, U 10.2 % Normal [facility] Comment on above: Performed By: #### M G, RENAL, URIC #### [facility] [address] [address] [address] Tyree Btoello Gamma Globulin U 2.2 % Normal [facility] Comment on above: Performed By: #### M G, RENAL, URIC #### [facility] [address] [place] [address] Dr. Tyree Botello M-Sarthak, % Not Observed Normal Not Observed [facility] Comment on above: Performed By: #### M G, RENAL, URIC #### [facility] [address] [place] [address] Dr. Tyree Botello PDF . Normal [facility] Comment on above: Performed By: #### M G, RENAL, URIC #### [facility] [address] [place] [address] Dr. Tyree Botello Please note: Comment Normal [facility] Comment on above: Result Comment: Prot ein electrophoresis scan will follow via computer, mail, or stepdown nurse delivery. Performed By: #### M G, RENAL, URIC #### [facility] [address] [place] [address] Dr. Tyree Botello Protein (U) [Mass/Vol] 181.5 mg/dL Normal Not Estab. T [facility] Comment on above: Performed By: #### M G, RENAL, URIC #### [facility] [address] [place] [address] Dr. Tyree Botello VIT D 1 25 DIHYDROXYon 04-14 Calcitriol(1,25 di-OH Vit D) 12.5 pg/mL Critically low 24.8-81.5 [facility] Comment on above: Performed By: #### M G, RENAL, URIC #### [facility] [address] [address] [address] Tyree Botello IMMUNOFIXATION(CHERRI),PROTEIN ELEC(PE),FREon 04-13-2022 Albumin [Mass/Vol] 3.5 g/dL Normal 2.9-4.4 [facility] Comment on above: Performed By: #### I FEPEFL #### [facility] [facility] [address] [place] [address] Dr. Tyree Botello Albumin/Globulin [Mass ratio] 1.1 {ratio} Normal 0.7-1.7 [facility] [place] Comment on above: Performed By: #### I FEPEFL #### [facility] [address] [address] [address] Tyree Botello Adyob-4-Vxyrpvgn 0.2 g/dL Normal 0.0-0.4 [facility] [place] Comment on above: Performed By: #### I FEPEFL #### [facility] [address] [address] [address] Tyree Botello Ycfkr-1-Ndymrcmk 1.5 g/dL Critically high 0.4-1.0 [facility] [place] Comment on above: Performed By: #### I FEPEFL #### [facility] [address] [address] [address] Tyree Botello Beta Globulin 1.3 g/dL Normal 0.7-1.3 [facility] [place] Comment on above: Performed By: #### I FEPEFL #### [facility] [address] [place] [address] Dr. Tyree Botello Free Knapp Lt Chains,S 25.5 mg/L Critically high 3.3-19.4 [facility] [place] Comment on above: Performed By: #### I FEPEFL #### [facility] [address] [place] [address] Dr. Tyree Botello Free Lambda Lt Chains,S 15.9 mg/L Normal 5.7-26.3 [facility] Comment on above: Performed By: #### I FEPEFL #### [facility] [address] [address] [address] Tyree Botello Gamma Globulin 0.5 g/dL Normal 0.4-1.8 [facility] [place] Comment on above: Performed By: #### I FEPEFL #### [facility] [address] [address] [address] Tyree Botello Globulin (S) [Mass/Vol] 3.5 g/dL Normal 2.2-3.9 [facility] Comment on above: Performed By: #### I FEPEFL #### [facility] [address] [place] [address] Dr. Tyree Botello Immunofixation Result, Serum Comment: Normal [facility] [place] Comment on above: Result Comment: Pres ence of monoclonal protein is unclear at this time. Suggest repeat in 3 to 6 months if clinically indicated. Performed By: #### I FEPEFL #### [facility] [address] [place] [address] Dr. Tyree Botello Immunoglobulin A, Qn, Serum 266 mg/dL Normal 87-352 [facility] [place] Comment on above: Performed By: #### I FEPEFL #### [facility] [address] [place] [address] Dr. Tyree Botello Immunoglobulin G, Qn, Serum 517 mg/dL Critically low 586-1602 [facility] [place] Comment on above: Performed By: #### I FEPEFL #### [facility] [address] [place] [address] Dr. Tyree Botello Immunoglobulin M, Qn, Serum 118 mg/dL Normal 26-217 [facility] [place] Comment on above: Performed By: #### I FEPEFL #### [facility] [address] [place] [address] Dr. Tyree Botello Knapp/Lambda Ratio, S 1.60 Normal 0.26-1.65 [facility] [place] Comment on above: Performed By: #### I FEPEFL #### [facility] [address] [place] [address] Dr. Tyree Botello M-Sarthak Not Observed Normal Not Observed [facility] Comment on above: Performed By: #### I FEPEFL #### [facility] [address] [place] [address] Dr. Tyree Botello PDF . Normal [facility] [place] Comment on above: Performed By: #### I FEPEFL #### [facility] [address] [place] [address] Dr. Tyree Botello Please note: Comment Normal [facility] [place] Comment on above: Result Comment: Prot ein electrophoresis scan will follow via computer, mail, or stepdown nurse delivery. Performed By: #### I FEPEFL #### [facility] [address] [place] [address] Dr. Tyree Botello Protein [Mass/Vol] 7.0 g/dL Normal 6.0-8.5 [facility] Comment on above: Performed By: #### I FEPEFL #### [facility] [address] [place] [address] Dr. Tyree Botello PTH INTACTon 04-06-2022 PTH, Intact 9 pg/mL Critically low 15-65 [facility] Comment on above: Performed By: #### P THINT #### [facility] [address] [place] [address] Dr. Tyree Botello HEMOGRAM AND PLATELon 2022 Hematocrit (Bld) [Volume fraction] 51.5 % Critically high 36.0-48.0 [facility] Comment on above: Performed By: #### M G, RENAL, URIC #### [facility] [address] [place] [address] Dr. Tyree Botello Hemoglobin (Bld) [Mass/Vol] 16.2 g/dL Critically high 12.0-16.0 [facility] Comment on above: Performed By: #### M G, RENAL, URIC #### [facility] [address] [place] [address] Dr. Tyree Botello MCH (RBC) [Entitic mass] 30.1 pg Normal 26.7-34.0 [facility] Comment on above: Performed By: #### M G, RENAL, URIC #### [facility] [address] [place] [address] Dr. Tyree Botello MCHC (RBC) [Mass/Vol] 31.5 g/dL Normal 29.9-35.2 [facility] Comment on above: Performed By: #### M G, RENAL, URIC #### [facility] [address] [place] [address] Dr. Tyree Botello MCV (RBC) [Entitic vol] 95.7 fL Normal 81.0-99.0 [facility] Comment on above: Performed By: #### M G, RENAL, URIC #### [facility] [address] [place] [address] Dr. Tyree Botello PLT 280 103/ul Normal 150-450 [facility] Comment on above: Performed By: #### M G, RENAL, URIC #### [facility] [address] [place] [address] Dr. Tyree Botello RBC 5.38 106/ul Normal 4.20-5.40 [facility] Comment on above: Performed By: #### M G, RENAL, URIC #### [facility] [address] [place] [address] Dr. Tyree Botello WBC 11.7 103/ul Critically high 4.0-11.0 [facility] [place] Comment on above: Performed By: #### M G, RENAL, URIC #### [facility] [address] [place] [address] Dr. Tyree Botello MAGNESIUMon 04-05-2022 Magnesium [Mass/Vol] 1.1 mg/dL Critically low 1.8-2.4 [facility] Comment on above: Performed By: #### M G, URIC, RENAL #### [facility] [address] [place] [address] Dr. Tyree Botello RENAL FUNCTION PANELon 04-05 Albumin [Mass/Vol] 3.5 g/dL Normal 3.4-5.0 [facility] Comment on above: Performed By: #### M G, URIC, RENAL #### [facility] [address] [address] [address] Tyree Botello Calcium [Mass/Vol] 11.5 mg/dL Critically high 8.5-10.1 [facility] Comment on above: Performed By: #### M G, URIC, RENAL #### [facility] [address] [address] [address] Tyree Botello Chloride [Moles/Vol] 95 mmol/L Critically low 98-107 [facility] [place] Comment on above: Performed By: #### M G, URIC, RENAL #### [facility] [address] [address] [address] Tyree Botello CO2 [Moles/Vol] 28.3 mmol/L Normal 21.0-32.0 [facility] [place] Comment on above: Performed By: #### M G, URIC, RENAL #### [facility] [address] [place] [address] Dr. Tyree Botello Creatinine [Mass/Vol] 1.17 mg/dL Critically high 0.55-1.02 [facility] [place] Comment on above: Performed By: #### M G, URIC, RENAL #### [facility] [address] [address] [address] Tyree Botello EGFR-AF [facility] 59 mL/min/1.73m2 Critically low >=60 [facility] [place] Comment on above: Performed By: #### M G, URIC, RENAL #### [facility] [address] [address] [address] Tyree Botello EGFR-NON AF [facility] 49 mL/min/1.73m2 Critically low >=60 [facility] [place] Comment on above: Performed By: #### M G, URIC, RENAL #### [facility] [address] [address] [address] Tyree Botello Glucose [Mass/Vol] 229 mg/dL Critically high 74-106 [facility] Comment on above: Performed By: #### M G, URIC, RENAL #### [facility] [address] [address] [address] Tyree Botello Phosphate [Mass/Vol] 3.0 mg/dL Normal 2.6-4.7 [facility] [place] Comment on above: Performed By: #### M G, URIC, RENAL #### [facility] [address] [place] [address] Dr. Tyree Botello Potassium [Moles/Vol] 3.5 mmol/L Normal 3.5-5.1 [facility] Comment on above: Performed By: #### M G, URIC, RENAL #### [facility] [address] [place] [address] Dr. Tyree Botello Sodium [Moles/Vol] 136 mmol/L Normal 136-145 [facility] Comment on above: Performed By: #### M G, URIC, RENAL #### [facility] [address] [place] [address] Dr. Tyree Botello Urea nitrogen [Mass/Vol] 20.0 mg/dL Critically high 7.0-18 .0 [facility] [place] Comment on above: Performed By: #### M G, URIC, RENAL #### [facility] [address] [place] [address] Dr. Tyree Botello UA RANDOM W/MICROSCOPICon BACTERIA TRACE Abnormal NONE SEEN [facility] Comment on above: Performed By: #### U AMIC #### [facility] [address] [place] [address] Dr. Tyree Botello Bilirubin Ql (U) SMALL Abnormal NEGATIVE [facility] Comment on above: Performed By: #### U AMIC #### [facility] [address] [place] [address] Dr. Tyree Botello CAST SEEN Abnormal NONE SEEN [facility] [place] Comment on above: Performed By: #### U AMIC #### [facility] [address] [place] [address] Dr. Tyree Botello Clarity (U) CLEAR Normal CLEAR [facility] Comment on above: Performed By: #### U AMIC #### [facility] [address] [place] [address] Dr. Tyree Botello Color (U) YELLOW Normal YELLOW [facility] Comment on above: Performed By: #### U AMIC #### [facility] [address] [address] [address] Tyree Botello Crystals LM Nom (Urine sed) NONE SEEN Normal NONE SEEN [facility] Comment on above: Performed By: #### U AMIC #### [facility] [address] [address] [address] Tyree Botello Epithelial cells LM Ql (Urine sed) MODERATE Abnormal NONE SEEN /RARE [facility] Comment on above: Performed By: #### U AMIC #### [facility] [address] [address] [address] Tyree Botello Glucose Ql (U) 500 mg/dl Abnormal NEGATIVE [facility] Comment on above: Performed By: #### U AMIC #### [facility] [address] [address] [address] Tyree Botello Hemoglobin Ql (U) MODERATE Abnormal NEGATIVE [facility] Comment on above: Performed By: #### U AMIC #### [facility] [address] [place] [address] Dr. Tyree Botello HYALINE CAST FEW Normal [facility] Comment on above: Performed By: #### U AMIC #### [facility] [address] [address] [address] Tyree Botello Ketones Ql (U) TRACE Abnormal NEGATIVE [facility] Comment on above: Performed By: #### U AMIC #### [facility] [address] [place] [address] Dr. Tyree Botello LEUKOCYTES Negative Normal NEGATIVE [facility] Comment on above: Performed By: #### U AMIC #### [facility] [address] [address] [address] Tyree Botello MUCOUS NONE SEEN Normal NONE SEEN [facility] Comment on above: Performed By: #### U AMIC #### [facility] [address] [place] [address] Dr. Tyree Botello Nitrite Ql (U) Negative Normal NEGATIVE [facility] Comment on above: Performed By: #### U AMIC #### [facility] [address] [address] [address] Tyree Botello pH (U) 5.5 [pH] Normal 5-9 [facility] Comment on above: Performed By: #### U AMIC #### [facility] [address] [address] [address] Tyree Botello RBC 2-5 Abnormal 0-2 [facility] [place] Comment on above: Performed By: #### U AMIC #### [facility] [address] [address] [address] Tyree Botello SPEC GRAVITY >=1.030 Abnormal 1.005-<=1. 025 [facility] [place] Comment on above: Performed By: #### U AMIC #### [facility] [address] [address] [address] Tyree Botello UA PROTEIN >300 Abnormal NEGATIVE/ TRACE [facility] [place] Comment on above: Performed By: #### U AMIC #### [facility] [address] [place] [address] Dr. Tyree Botello Urobilinogen Qn (U) 0.2 {Jennifer'U}/dL Normal 0.2 - 1. 0 [facility] [place] Comment on above: Performed By: #### U AMIC #### [facility] [address] [address] [address] Tyree Botello WBC 2-5 Abnormal NONE SEEN [facility] Comment on above: Performed By: #### U AMIC #### [facility] [address] [address] [address] Tyree Botello URIC ACID SERUMon 04-05-2022 Urate [Mass/Vol] 8.0 mg/dL Critically high 2.6-6.0 [facility] [place] Comment on above: Performed By: #### M G, URIC, RENAL #### [facility] [address] [address] [address] Tyree Botello URINE T PROTEIN CREAT RATIOo n 04-05-2022 UR PROT CREAT RAT 0.66 Normal [facility] Comment on above: Performed By: #### M G, RENAL, URIC #### [facility] [address] [address] [address] Tyree Botello UR TOTAL PROTEIN >200.0 Critically high <=12.0 [facility] [place] Comment on above: Performed By: #### M G, RENAL, URIC #### [facility] [address] [place], [place] [address] Dr. Tyree Botello URINE CREAT 304.32 mg/dL Critically high 20.00-300. 00 [facility] [place] Comment on above: Performed By: #### M G, RENAL, URIC #### [facility] [address] [place], [place] [address] Dr. Tyree Botello VITAMIN D 25 OHon 04-05-2022 VIT D 25-OH 49.7 ng/mL Normal [facility] [place] Comment on above: Performed By: #### M G, RENAL, URIC #### [facility] [id number] Tyree Botello VIT D RANGES SEE BELOW Normal [facility] [place] Comment on above: Result Comment: <20 ng/mL Vit D deficient 20 - <30 ng/mL Vit D insufficient 30 - 100 ng/mL Vit D sufficient >100 ng/mL Potential Toxicity Performed By: #### M G, RENAL, URIC #### [facility] [address] [place], [place] [address] Dr. Tyree Botello SCREENING MAMMOGRAM W/CHASE, BILATERAL*on [...] VERY IMPORTANT TO YOUR HEALTH. THE CURRENT [facility] [employer] [employer] GUIDELINES RECOMMENDS ANNUAL MAMMOGRAPHY BEGINNING AT AGE 41 THIS FACILITY USES A REMINDER SYSTEM TO ENSURE ALL PATIENTS RECEIVE REMINDER NOTIFICATIONS AT THE APPROPRIATE TIME BASED ON THE RECOMMENDATIONS OF THIS EXAM. Report reported and signed by Rich Soriano on 03/13/2022 0925 Normal [facility] Techn[facility] Coding Summary.on 02-15-2022 Coding Summary. CD:[id number] Gh0bW w+PGhlYWQ+BN4SJEEmC96exZX cqR0EG1ySFA0VGCJKYZSRJT2U YR2vwDE0XZqxG8LplbMb VpyxxTArGV21VGj8PSE0dXukU PefeH6ssIUkZ6e0PoQhPR48zH 39FEzbTQXqXiQ1CcAovoqodOP y K1jiBhHjxIPpTiy+PHRhYmxlI HdpZHRoPScxMDAlJyBzdHlsZT 1wNv8dGINyRHXvbQsecUDpApO j y9hpESPhGHqtMV9hoWawK9Wwe NN7GPGkm7j0En54jWQ+PHRkIH T3yGyiVCxpb369JlNmt2drLHH 3 vWQcPKerSDY1H33xr6M8REUwU XXzGUX7kHK6wC6ziPupfgswH3 ZgqHPtUkG4TWA1oOHhlD3dwQf n asmewN6qFiz+B31WVS1YSPKPC O2RXbw4P0PqUxfksHU+PC90YW BcAR59tFNsnAZrz7ishOf6YxU w JMTyWLS4uJivSZurb4GvGMLrI 18pgSGwh4Y2NAQpoJxlsHTxSl AffEN3wZ2nLAzbdjgwz7zwfco n Cfiuu4doij55nG54F02gMWzfM AWhSMB4HJVtSEGnsLbuaf0ukQ 9wIi8+RKqvc8cit4qxcVu5WxM w FEWrugBzxYihTIX5d4UyGi56H 4PniNudj7ViQyq2pk89mPAug4 S7rEX0PFmhWDEuoG4jOSfnPlD 6 DEEhDjExvM71jHBdDGgvAy1pc XdmsEetNG1zRKBonhccHBWbtF 4gXFOfmCNxpLioXM0yHHJwtcy m b062CmYrPTJ1LIBkvFKeM6Yyn A8lMrEwDZHeBSUcO4QknGXsQI srN265TThyKfT3ADIpefKmE1K s MWKjuSjbNmI3b9B9Be4Sn7Mly gnhDOC3JPcpVRDoWsI4HoUbHq U6G0TdZzz6VELrrUkyTI8jT7T h AOJgyxifkukcmSU9LFUpXYLaz Q08oMXhGVwzQy0ud9X9q900UR XmLUFseZ10Dq4neWbeMQSdvZR U gG9othkrp3ezhoxwAnPzPMJcW Ga9ZGd1ONQcfTsoZqDkWSY0Jf I8MGY1oBQmlD6spPdvllzwbE2 w Oyc+L30wjM5oFRN4JCU2eyslW LYnkuQkUM73CI36K9TfCacpvU FibGU+VCIlxrSxvItiAY9zHeR j s1xlv6LfHGjyX2LwQWPlFNydU mf9IBWfAMN0tOK5lH0mIXNtTX stm2A2xLR4G7WdklZgtj5rr0g s TOQrALxhG90fqLZuc4O0HBMgl UC8JWHeoBxeTqWqqA31Uyr+PG IfdBpqu9EtJbdak3irn5orrZi 9 DxAwBCFpnyPaaGggIKO8k0MrT k22I30kBQgxVBLtZUUkGHHhGF EisAwzra1geK7iFc4+PGNvbCB 3 xSS6lA0fZWBgKgN1MOgqQ783N hEueMLgFlmyr8drj4wcoZd1Pw QoKXSkazTvoTwvDQM1z2QnIh7 8 A01fIGohKNDpNVHnGBYlZOAuf Czhit3dmO7cYi4+EB8yn5xmrv 63mW61pEM+MIGrBJH1gAblRKf w RWUvjG3zHGbhPeC4HZVuKxEtm E71rYYpBEvsBi2zpLombYalHL 4jRPVwtpgnr117AfReu4nkMBR w lIIjXCpkVTK8G73az3W3EVCnS VIeVNT9vGL6rT3ukIvtonkpyR TdmQkmppPghQxnHGaiQLidL23 6 IHRvcDsnPlBhdGllbnQgTmFtZ Xb7O6NmRqz7XUUywHvlIG6mnO LaHRguSh6vcQpgzOtgQO2rNHW p kvqqz491KwDgc1cfLTMcdEJrU QieGPU2E30rq2R8RWCvLRCjGH C7mOC8vY0bfTclcxniwZHvkKr g dxQugMzjHMhkVWkzI518GTEht SyiJjDzprBbQCTrqCE3YW05CP 13zIIsm7W1yQT4D7ZmCIPwoko t gnyzfME1AROyOZQnbF94Nt7zh GxxLk1iQXRkEJV3UDIwwYKqB9 LbpN8xSaXtXWUqZIHxV2HjeEY t KXmpS479KJjvGpY5IUDmfzQeT 9DeWDFdcEqhGzZ3d2K6Ib1OJ6 Q8KW85DS60tHLjj7F6kNS4O4R h NRMurpmzsgzncPA4TJJnWUJpx A62Ri8ypYwxAx2gEAYqBLR9NU IljHMoE1MvkN6iYyNnICPqTKK w F2EwdYHwLLnpL343WPgjQiD6C RPfzwXhM1VsNMRvmLwkNeF4s2 L7Uu2IGYc9TI61TP77iIByo3P 5 cZQ5Y9PdNWDypszxdbouoLN3Z GFzKCCyzS02Vy9ilMhnAr5yJD XhURX5LFMcrCQrP5BwnZ4jAbK j IPHcPXZuF5DcbCDfUFiuA613S NwmDfP2QAOrtaYpT2AtOSDifU dnAaT9g6X7Lk6EXAGjDR92HVP 5 wFC4BB74JJ99Q9GfPqtiyLZna +PHRhYmxlIHdpZHRoPScxMD IqKuXeqVpmSP0iSx9jILLuPOK v yQkqfRLuAzMqf7iwPWVoEBkaP O5ciDmbU5RxqSH1QFRow1e5Dl 69L04nY4PtqXN+TJFnqJA6iBB 0 zA5yNpDbJhU7IAkaK162MrLrp RErFvowr1nav1rlaSb0IbS9DN MugfXwzMyzKWV1o8FlUo31J64 s IHdpZHRoPSIxNSUiIHZhbGlnb c9rmC1eEd4+IYDeuVI3xSX5tR 3mNsBuEcM7FMogM044ThHsfIG v Pwoji0ydg0cryRm8CjQpLIVva gGyyXdaSRR0z0KuKh14V5XwvU jwj6MbKyj2nd55wWUag2M5fVV 9 R6UgCFJwxlbumHHcaBjlCO9eI TWdxxffKWGlhW5cAJVnU6w3Pa FnGgA0PWwjS8CtzqW4LHQtxYD g PRpcHXK2Y01rc8E3FIFjBMReK FA4cIR8iB1hpQyujzyqkSWbkX yqrfQyxBdtWIuwDMedN540TMW v kAhkBZOcjD3gTXVhlRKpaNhsI C9qZSEggnpfVlXAC2qOMYJtES xPVUVMTEEgTDwvdGQ+PHRkIHN 0 cJldOLqsJAAdkA6sXBUlC0w2E qOuTdD7PZrmU0ZeCALfvhsoSj 14tJ2iHdIoYqP6ARodF1OkoqQ 6 IWIwaAVvHCtqZGY9T24he5U5Q NJjEIZnSIT8kCL3tN4soFyuwa ogbGVmdDsgdmVydGljYWwtYWx p G952UIOzfEwlZzVqOhY1WfV6G lI8K2QfAyf4IXPtaIddWM9plC CkHGagHz8nsSxekDbgQS1bZQP p wttrLJJvcG6zSGBsvRJmvZncZ X5zTYKrdvnkh899YpRnUSY7PP FgyTKtW5AnnR6fNzHwOILtBJK w H2RpeSZwJMueG025FIzgDsT4E OCyasHaY8EiASAatOzjMiZ5s6 L6Sq24ONOKAOSszdbucHG+PHR k NFM0xAizRXqrGYTjoS4nWHGuB 3f0RcHhNtP0VIbkN2XgTYIhqv lxOh81rV6eNgMjNkE9TQjbQ6W v peW8HUEdcSKkYWouBZU2Y13xy 8X2YBNpVJJzSUB4dUD5uI3tyK lnbjogbGVmdDsgdmVydGljYWw t AVwyA096WGCocBdkOzGrhQNyH TwvdGQ+SFYnBUG8yUcpFIjoLU JihB8vCULoZ5t2KiUvGyH9LBo u F5HmYJOmolsgXd57mT3jUrTqS xB5XJswZ8QfgmX5GUZduRNyLB zeIPC6R55hc5L0TWDiYBUzJVJ 7 pYY3fJ4aeEoimhdvmGYgoAkcz iXajNfkBVejMEjgR345YSOelA opHlgwPuDFyo9uRC3tGkepaPB + QH40wt95N7NvBmufCcg3OSWtF SM9nEC7tU3pUOAxLKuij6H1wP D6N8EmmtPgye3tq6ycRETaRFk g V61fhKKgh8X9PSCnsKU6UGHqr ZpuTxQdcR61Xnh+PGNvbGdyb3 FnUeabk3ppf0jfaVp2NuSeCQK g xlDjgZwlHNW1q3FeCw37T25uL HdpZHRoPSIzMCUiIHZhbGlnbj 9lhR8vRf8+DYBhfJI9aZY6sP6 i TtRlOrP1SDjpG215RsIyzVJkF olin1nkp1lexZq5IuLdZSFics UykDucJIA7q6LbLy25V3IrpOo y i1MtQpp9zu10tFDuj5I1aVZ3N 3TjLSKlcwkzhVRmrItoZJ0kLC ZrmfweROGnsX7nRXDbZ0q8VtG w ZvL4ZZqsQ6VmzsX4NPHisUQcS RJclJKUlI0swbcee6wyrtxaPb VrIFRjUSh5HSe5DGNviTicHbG s LPL8QuC7JMJ5lJAgkK2egYldb ekfvG3cVrm+LFz7k6mdqJBiEO 0shGJ1KA63DW69dROru7P8bRA 9 M3CeGYOhydkciumbjBA2QSKuW IMlyI72Fk6ndFuiCv3fYJDfID T1KAJqrRZcU1PalP4nBrYyKLB w YIUfT0TynJWuRVelJ080ACnsR uV6EHPwkfDdO3DvJIPiqWkhPv K5r1Q0Wt6NQP62UA62YJ22iRQ g l2I4cYX1B8PkBXHfrtarjafkp PG2HUZhXJOsvV57Mh6ghGkcNh 6qRZYbBCX1ZXAlzDOeP1EqwO6 y ZhMvCDZdVBXtI4ReqXNrEVasZ 482VFgmYmE4BWOjadIpK2MgZW GrbIhiCkT9x6N0Tp8HZp67DW6 0 EP55kEHlj2Y0oZW4O3FbLGUtp kozybqmdGP1IPXlZKMnfM14Di 6voYplAg1qSCOnXTM4UFQtgUB z Z7XfaC3jOqRfHLZcFLDzM3Hjj SNcYDkkW118GStpCzG6ZEAbeo XmH3IjCEKrvYpbRlH9n4G9Tn3 Q NEropoh1U3LcGrxduPG+PC90Y UDuAJ60cJSkwKXih0ppwLk3Qo LcEFUePQV2lUshABhqd4QsHQS t Y29s (more content not included)... Normal [facility] Coding Summary.on 02-07-2022 Coding Summary. [id number] Gh0bW w+PGhlYWQ+QM3VLKEpZ17nmKY hqN8IE9tMLA0CZQENTFLMGV1M JZ6qpVD0YWatY5OfavQm DupgmZRpFC08BPb0DSO0dLqhK UwfkT8cdAAvR9i8NrTcTV35iU 39EUsbURNzIoC3LrJslrgcfEF y D3bbMqYloJZzAbu+PHRhYmxlI HdpZHRoPScxMDAlJyBzdHlsZT 3yIv8oBUCxGASrqXzljDVlBmA j m3huQRTqOJvxPE3reBklD7Kbd CK3DPYsb0u8Zy09bVJ+PHRkIH W8xEwtSHvsv714FlNzz9uaYIE 3 kPOuMKkvOXH1R75yh8R0AKWlS HWnRXB8yKR7zJ4teTcitlcxK2 DoxXMcDrO2FVU9oYJsoX3piGi n kvrddQ7vDje+E44MRC5SSTSUL E0ZJqi6U4XmTatjmNF+PC90YW EdKM40iVExwVDay3pqsXf0LzR w AAJaNLK5jPzfAWvyj5XhUHDdD 12ckFHnk5Y2TJAmfGtihCOhAp VzpSL5mI8eCEfarsvnw1yjyoo n Kczjo8xjjz26jT78X01gEOvmI HQyWBC7VKMaQUVwlUlqgt2cpX 9wIi8+UVojs3ddd6lbmWc5CcE w SDNylzIfkVviZZE9q8WtXk52C 6DasPhcp7RiVfw4uv75cWNrv2 R9xKS2SSgbOISxsD4zTMxgWjF 6 CNNdGiGskI96sTBsORzeAa3ce TzygYgeAR7cPXLmjqhcEPFuuN 6jLGIgiOCiyHwiJD4gXUHnztr m z400VcBoNTX7XKMfwOEuW4Xbm M7pXrWxNMEhXBVoF3VmzECwZV joZ468WEydVaX8WMAgtgUnR6G s TCAmzHsaSdB9t9R0Ju4Qq7Fni jnwMND4KOvxTDXpCdFtIfZlCg T1H9BsDst2DWDceZalHX3eH7V h BJDeegpsdmgpbCZ3BQVuMPMym E98qEKuMUbkXf3ib7I4v191DS ZpLCSooA86Dp8scXnfHXAlaDM U pP9jxbeme2payxzqRhUaIXQxS Nt9DUm7HLAqpEfbRoMaTQJ4Ur U7BLM3eZJqdM6lqShegbnvmT9 w Oyc+A29qsC1yIEY6AAE2ajqcI BOaclZoXM94QF80D9KdXedhwE FibGU+XTRpmqTekJcuYK3fBxZ j a5fhg1JjKLyiC8AlWNDvPUagN ui3QQKcNUE6iNJ8vU4yOHGpPU rek2D1iXG8Z2XhnzZyqp9xw9u s HSCbVDnnF95xwTUsf2Z7JRUwx CG1CSTojKclKzNjpP51Tuv+PG ByzWznx6GeMuwgq0prd6qyyCw 9 IaNgIIBqbhXiqVslPVU1i1JxK v16C42kQNefGCMgJSWvFNOdOG LquBfsdi2jhR9fCb9+PGNvbCB 3 aIY6cI7cQLChCyJ8SRuyU752K aWwmUKeEsirq5umf5raaRo9Na KaXDInmuFbbMxjPOI5e0QdNe9 8 E30rSDkwEGJfBQMtNAGeJPClw Zrdwp2hiC8oTz8+DK6qq0pzrb 52kB19pYZ+ETRbQIF0iOmcHJb w GQXjtR0aGXgbBiV4GQRpDvMik M96aCLhIYwgHt0scPyitMjvMZ 0wLXLbpnovo303CbGgv9tcCAF w bUEhEUgmUCO8M04uw7U2HVMnH IFmJXU2vBC4pA3azVgkkrsvoF ZcaMxlgzSlbKtjWBygINuxG45 6 IHRvcDsnPlBhdGllbnQgTmFtZ Tk9Q9HbOab2HHHvjEkdUJ8snB MfQKdhDz8huEkybCyjFQ5hBLB p pilgt675XuCrk2zbTTSmkSThX NblEYY0D26bb0E0YXHcJOLbVB S7tIG7nG2haDftxexauWAgcEb g daUscWkeOGdmVQquQ408SZGsn XwiXdRydfZzYTCugWQ0KV12JW 23pLByh3B0lWH0U6YiSDNzrfa t ublzbLR6XKLyCIZxjK04Wn0ib NxoCw1iACZhZAC3HBAwuQXhT7 JoqZ5zXqCwCNWkCSMgG9SkoOD t UYxgJ174MWiqOyV8CIRwajPsW 2DcMJOnuPoxBdL2n5O8Ez2MS8 A1WY34DA94wWLzy6J6lFK3G5H h ZOLghcjzqwjspRC4GRRpUSZup L88Xj1ccMmmWz8pWOQbOII6IG BngUPqI8WaoN7pKlRhXUFsDZZ w C3LxjEMdDGytG421LNqyXuH3X MPhgjMgP0WwPBZfaNjjBhU4x9 Z5La6VOTg1VP35JK76oWJhg6C 5 eCC8S8HyOCJowjweuktvwOX1L TNnOFZkeM72Eq8biXtoKh5yXC FgQMR0FFYofIXqS1BynI5uGlN j PSObSTCpS7LlqUQtRGgzF881R JwgOlK5UAKnhjWzA6SqOZClqI jfFbS6g7S5Ek3URYNyUY03SGJ 5 lIJ7RS84TL51N8FuYrcjmNLwb +PHRhYmxlIHdpZHRoPScxMD LrUzTojNjbLA6hCt8uPFRwETV v hGrdkLAaIuLma0yyJXRcCCydL T1rpLexR1IwhDB1VYYtj0z9Hj 44G63nO3GnoNN+ZVSxmWO9dRI 0 mR8nAbGoHdK0LDcvI602HbXjh QYlRewve8smj8wyzXr2NwI0LL AumsKtgTywVTE9q7SnKm03S01 s IHdpZHRoPSIxNSUiIHZhbGlnb o0zuB6lFi5+MTDwkYK6eWH3iM 2lCwGyYfY0ORjoG947PoAhkMF v Cyqdv9bnb6jixCm7FiNfXETad eEsmSsiIWB0e4BgCy02H8VnpB bgi5XjFyv6lv78gMAlk9N1sPM 9 D1GaTOUztrwgiKKicFyoKL0qU QYzjxvaSYLmrA2nRVBfX6n7Ce AeEwK8XYdrK0VdgfV5XFCgmNB g FLffYPW3M97dq6M0JGEnWORqQ XR5rKY3lY8vgQhjwryzqTQbnM vftoAtfItzFEnzFRolD603RAQ v mQroUMWanE4wZWGweTUdjQsyX G9jNOSjajqxXmFHK0pAGCEwYM xPVUVMTEEgTDwvdGQ+PHRkIHN 0 zFgzTJngRBEomA6bKZIrZ5u5R vLdYyU8AXzsV4TcQRQrhaupPp 33wB9uLwYtGlY3RCqwC2RtxjP 6 TIPbiOSoQDjrAEA9B28ha0X7F UFiABOpMBH5rIA6vV5bsWwgyi ogbGVmdDsgdmVydGljYWwtYWx p B372XBCgcCwoLgDgRkV6QuM0E kQ1D3YmNon1JUVgpCheUA4vzB SqCUzmVl8mqYfgzQgyVZ1iAWB p tbpdTVKvpU5yXRDcqCNduLciV S5tYTZnblqbt168IgAqNZK7HJ CdhBMsP8VueP3qUhBbNLFfGOI w Q3SmxIRqZSwjW835QHhxRcI9Y WCzkdPaE5MbFCGcsUvoCuM3h6 R5Nj23PRWCHCStoqsweLY+PHR k SJB2fXzaDDmvMKJvmZ9lUNTmU 7c2VzXpFsD7VXmaO1OuKGOeyt wqWj03gX2hVeAwUxE4HTtvN1Q v dbT9LLKpuBAyVKvsECA0O76vh 7P8MZEgSATvVPP6eSY9rP6koE lnbjogbGVmdDsgdmVydGljYWw t JXvjD700UUNtzSqvRgGuwMRyN TwvdGQ+FOCkSQB9hDacNEfuWU BllO1zWXOsC7z0ReDpAaZ7IZw u H4YpBCSzqslcAn71cO3wLqRoR cV6BZveG1TigfM2UUIexFKsIZ riMNT6X89ki3F0KEDoTPAoAXK 7 bZC4aY5chRnhlighvQTxrGcab rMdyYyiYApiJMfkA216TZVagC fnXo13rBOuvPnileZ2E0MlInf v dHI+VJ56BNFuVZ95xDZlsSNkh 8whlGp8QgWaNMNjPTT7nRdiOH zsd2HrDOKzX35kqMKrx6U9XCE v sZujfCYbSrManEP7mF4iWHwej oloq9zryvaoQtteg0lskn70lD 13X32jWZaeJLQgBQTnCAUjAVM h fMmpfj7jrA0cZf2+HDJjtHI5h GF5eJ2oAiNaFbE0ZYfeZ259Ij AwtLUpVomrg7vva6ipdWt6KkX w LBDledRhwYyvOQN0n0XyDq14N 29sIHdpZHRoPSIyMCUiIHZhbG rpdw1gfR8qZm9+AJ8ed3lfej7 1 zH07jTK+VLFrSZU1mTxzJAyoL IKisM8dZJjkCuL0BNHuSfJwsI 92lEPbJXquPb1ppJnwxAhwJA0 w OFCqzfzjp018ZlQpb1wrMLOki ACeBWmfJKN7W04oy0Z2VXLeTC HgYYR6qTU7lR8lfIsvbuqsvZA m iXfghqEqaTevNVnyDOhlT461P AOfsYthRmNpbCIrR2tqyeYTDE 1lOjwvdGQ+IXNgFVR9iMggSLu w IILzeM0vDTYlU3x8HtMvLbI6Z VkgK6HdclJ2FSGyqOZlZIMdlD HWpU1xwhkqf8ivipscBtLuINQ w PUx5SWv0ZNDnvPgfVzVyQDJ3I oY3YAY4lDYxdY4tmRloqgmczW 9wOyc+RklOOjwvdGQ+PHRkIHN 0 vEksKHhjHRTjqY3qEUDgW0q2D kFdTdI8EDepP1DzcaD8YXBbbR UaICCleBIZxB8gdtmqj1rutzp g HcEdGQWkCCv5KWq7AJLlsDruX iWqENK4KcX3UBI7dAIssW6qtJ yrwuutdO2hZlg+TVJOOjwvdGQ + GQEtLAS2yXiiCKkwBRFveZ1hW RWrT7t0UvVwMaL5URifO0Vhtl B6JNLspPIjLDJwrOMGmB3lcao j v3dgnimkPfKrPXEuOQg0ZHa2V HUlxUmxBpKcGVE0WbC2FQI9rK ZjmV2qvKfieyhujP5tTvc+UGF 5 IZN8EI55LP33E4NhIkpdxALup +PHRhYmxlIHdpZHRoPScxMD TsBxPymYobPQ0ySt6bTOGhGWK v bGxh (more content not included)... Normal [facility] Physician Orderon 02-07-2022 Physician Order [id number]:1 27 Normal [facility] BMPon 02-05-2022 Anion gap [Moles/Vol] 18 mmol/L High 6-16 [facility] Comment on above: Performed By: #### 2 [id number], [id number] #### [facility] [address] [place] [address] Calcium [Mass/Vol] 9.6 mg/dL Normal 8.9-11.1 [facility] Comment on above: Performed By: #### 2 [id number], [id number] #### [facility] [address] [place] [address] Chloride [Moles/Vol] 101 mmol/L Normal 101-111 [facility] Comment on above: Performed By: #### 2 [id number], [id number] #### [facility] [address] [place] [address] CO2 [Moles/Vol] 23 mmol/L Normal 21-31 [facility] Comment on above: Performed By: #### 2 [id number], [id number] #### [facility] [address] [place] [address] Creatinine [Mass/Vol] 1.0 mg/dL Normal 0.5-1.3 [facility] Comment on above: Performed By: #### 2 [id number], [id number] #### [facility] [address] [place] [address] Glucose [Mass/Vol] 154 mg/dL Normal 55-199 [facility] Comment on above: Result Comment: If t his glucose result represents a fasting glucose, interpretation should refer to the following reference range: 55-99 mg/dL Performed By: #### 2 [id number], [id number] #### [facility] [address] [place] [address] Potassium [Moles/Vol] 3.9 mmol/L Normal 3.5-5.3 [facility] Comment on above: Performed By: #### 2 848245, [id number] #### [facility] [address] [place] [address] Sodium [Moles/Vol] 138 mmol/L Normal 135-145 [facility] Comment on above: Performed By: #### 2 [id number], [id number] #### [facility] [address] [place] [address] Urea nitrogen [Mass/Vol] 19 mg/dL Normal 5-21 [facility] Comment on above: Performed By: #### 2 [id number], [id number] #### [facility] [address] [place] [address] Urea nitrogen/Creatinine [Mass ratio] 19 No Units Normal 10-20 [facility] Comment on above: Performed By: #### 2 [id number], [id number] #### [facility] [address] [place] [address] CHEMISTRYOrdered By: SYSTEM SYSTEM on 02-05-2022 Anion gap [Moles/Vol] 18 mmol/L High 6 - 16 mEq/L [facility] Calcium [Mass/Vol] 9.6 mg/dL Normal 8.9 - 11. 1 mg/dL [facility] Chloride [Moles/Vol] 101 mmol/L Normal 101 - 1 11 mmol/L [facility] CO2 [Moles/Vol] 23 mmol/L Normal 21 - 31 mmol/L [facility] Creatinine [Mass/Vol] 1.0 mg/dL Normal 0.5 - 1.3 mg/dL [facility] GFR/1.73 sq M.predicted among blacks MDRD (S/P/Bld) [Vol rate/Area] mL/min/1.73 m2 Normal >=59mL/min /1.73 m2 [facility] Chem S GFR/1.73 sq M.predicted among non-blacks MDRD (S/P/Bld) [Vol rate/Area] 59 mL/min/1.73 m2 Normal >=59mL/min /1.73 m2 [facility] Chem S Glucose [Mass/Vol] 154 mg/dL Normal 55 - 199 mg/dL [facility]isol Potassium [Moles/Vol] 3.9 mmol/L Normal 3.5 - 5.3 mmol/L [facility] Sodium [Moles/Vol] 138 mmol/L Normal 135 - 145 mmol/L [facility] Urea nitrogen [Mass/Vol] 19 mg/dL Normal 5 - 21 mg/dL [facility] Urea nitrogen/Creatinine [Mass ratio] 19 mg/mg Normal 10 - 20 [facility] Consent for Treatmenton 01-10 Consent for Treatment [id number]#[id number]:12 7 Normal [facility] Physician Orderon 02-05-2022 Physician Order [id number]#1.00CD:12 7 Normal [facility] eGFRon 02-05-2022 GFR/1.73 sq M.predicted among blacks MDRD (S/P/Bld) [Vol rate/Area] mL/min/{1.73_m2} Normal >=59 [facility] Comment on above: Order Comment: Order added by Discern Expert. Result Comment: eGFR is race adjusted. AA=. Performed By: #### 2 [id number], [id number] #### [facility] [address] [place] [address] GFR/1.73 sq M.predicted among non-blacks MDRD (S/P/Bld) [Vol rate/Area] 59 mL/min/1.73 m2 Normal >=59 [facility] Comment on above: Order Comment: Order added by Discern Expert. Result Comment: Health And Wellness Director shayne kidney disease could be indicated at eGFR's of less than 60 mL/min/1.73m2. Kidney failure is indicated at less than 15 mL/min/1.73m2. Performed By: #### 2 [id number], [id number] #### [facility] [address] [place] [address] Coding Summary.on 01-15-2022 Coding Summary. CD:[id number] Gh0bW w+PGhlYWQ+LM5LSMGuU20jxCG ptU7QR5sDPS7EXGLDLNSUCW8T IV0nnUP3QMaeR2QljzSf YfjakVQyYF83GPs3WDX1tTozW FxahG3cyHEhO8g4IpJmDC46fT 50YDtePVXhXvV2RjQrbrmzqAI y G2vpKxPzeUIfYtj+PHRhYmxlI HdpZHRoPScxMDAlJyBzdHlsZT 2gTo4uJNVmNFBtqNnvuPPuZnW j y8iwFGBwFGgwIG5weDkmL9Cdr QS3OHPbr8z1Zc52tCE+PHRkIH L5xMmbVDqtw259WmRlt7jyXND 3 dJKtVNbwZZK6G84cv9L3PZWfH QChAOS1aSI6aD0pcDywpkbuX9 SbyVQzBcZ1QCR5qBPagP0zlZt n dtllmX9kTeh+J50HHV8JCJLLY B2GYcm9G4AuAjvkfAD+PC90YW TaZU43tIFhhOWhk5ropHb5HsD w XBLfZPT4sXriNJdtt5WrNIBkW 68ypYKwq7O2RSSpxNsshROpVf DrvRZ9qE2qQRbbunjqz9jetlq n Fslos8dtfh17oP07C83cCSimN ENvVEV9IYDyTVWeiQsbgz8qqJ 9wIi8+YMwwz3wqw2ngkVb0YgA w QXSzvoBjcFohYWY2u2FpSs85G 1EzeXwqs9ScXpq3hd45wDLlx1 D9yDS5OBtaPRSogD7aSDbhRrQ 6 HUKjCiRjzC90pGMqYTtyYz3xz YzreDejNN3gRNEbupsoQSVrmR 4fYEGbfKCvnOfaWC9aVAFfzjz m j645DvAbGCX9SBHjtFLkF9Fdv A6lBdYxNVUgEQToZ0TpnEIcNE biK243GDatGlB1VNTxpaKtR3X s GVFmrFwfHoD5h5N7Fa5Wf8Eqw hxrBEY5MWjcRXEbZnA6RbAvOw V5Q1CqPta4ZCElbLpqXL2fD9V h GMEbmwamxmsrhFY1JPKxLEWxj H43fUMuYLhmPz3aq0N1a688WW IjEPZgxH07Jx0qkBaqIXEuqHF U gO9bipnqu2phibsfSkVaEIQaN Lg3WSj5JLNvwOzrAmYmQHX5Ui I7KDQ7aRVyoM3vjZkhsswmhH0 w Oyc+Z84oaW2wAJQ1XVY5njzcY KZrxeFaEY09VZ59N5VgOqefqX FibGU+MYHefzNrrXbuXD8eUrM j f5buf5KoQYofM1KaINPaDSajT ad1GBUnMSI8fBO1qX1mNAWqHX xry0G1nGD0A0SvckYupf6fc9i s MBSoAGjjI37icBThe6H2LVXtg CZ4OYMtrUibCfMdfY55Rbe+PG EcvGqcp9RoDecgj6jig9dycTz 9 RnTaKRZwurThpTcgNBN7h5HbT a17J72ePPiqYXQjUMIlEVLcXY CurAjcpn6hbN5yRd9+PGNvbCB 3 tMY9sR2cGBFlWcA4GWtkG057D xZuwORmOjsud1wqq8lskDf8Ec MqJYKnheUjcGpeZCM2q5NnQj1 8 F03gNOmqTUKqDJZrVQYnUBTuk Netdv3nkT4ySj2+IG8xj4owuw 94dN67zEI+RQMfNOB7yUslVYa w GYWqqO2mBTclXoX8EJXaQvElr J44wEEfTNlqAk2pmWogkFjhEB 7xFGLghartz162PyHyc5imZXD w mWMcAKftQLG3O88sv1F2ITPiY VXzMBF1fYL5vB4wgEdbspfnhX NieRcfgjHqcYwrXYjlAAfcG07 6 IHRvcDsnPlBhdGllbnQgTmFtZ Eg7S7AcYqk9WZRpnMxxVG2xzC JyPKxrMa4ufQuawBzbLE2lCXJ p ejhjo882EqNqx9rtTLSepUAgD KzyKOH2Y62ry2G6ERDdYZHiPB Y1zCZ6yP2tcDjorniknUAozAe g avNdjFmaDOewJKumL126WIMpn JujTbEcopOaZPVnyRF3QD23BO 97fTAsf2T1yMD7G1DiOPNurel t hltqzBD5QSMsMRIsrB75Jv9fn MbwIw6rUHEzTDS7ZMKprKJxU8 JmqJ2sAvLtSYPmTOZqC2WydPK t YFpvR065GEhdEbS4DIBleiAiD 8FoQOWwfGwjMbH2a6G5Ay2UY0 V7JT83GD01cWLyn2H0oHL8Y0G h AYZmpdrxgtvpiSZ0EWNqMYYte E71Ma7wmPnfWi7fXIAmFTC2XK AooMHbH8SnbJ8lKuDwLMYcBVO w G9FfhCMyHYocY896RTugJlR7X JDzrvEgS2GbAHJrtXvdVdR0q5 R2Mr8AJWw4JX25FZ11lLHgk3M 5 aCB3J5GjXJXdhaqwbkskoIL3Z MVwDOXblU75Vf2gjEygBz8lUP VxHJL3GCNhpYEwD2HfyA5wWaK j IOJdNWWrA0RfnQWrRYkkN709R IgpPqC6HARqinUwP0PiEOEozJ xuEbM3b9X8My5RRNUzIX47ARL 5 tCL6IM33FA06V7HxSisztFDuj +PHRhYmxlIHdpZHRoPScxMD XfXxFteAvzWX9qOg7eCQTmCLV v iIoqsQIsNuYtg3uyKCEcPFeqI Z7omOaqX1KmgXZ3AKTuw3k3Bl 61M58gL2PikOO+GYZfzCZ8hSE 0 fU8pVhOdQyM6IRgbS482WcBdl CLbHghiy7sij7idqFy1DpG0ML LtzkNzeBagZDV8d5QvEx39K15 s IHdpZHRoPSIxNSUiIHZhbGlnb o4oaY8cDw5+TEPwhBT0xOV3dI 7sNyLwBbF0EJnlA982BlPxnTC v Fazwd0giy4iduPo0TvUdQISos qQmqCbsTMJ5u9FxKs50Z1GcnW tzh3NrSuv5xp19vHWot5E4uNM 9 I4WcJKVvgshnjBXosTrsFI6tQ XAurshhHFAesE2wHHIzD4f7Bw AuQzW8QXkyM4SuqcB4VEJybRP g ALsbYVY3O13jr2P5ILAzMQUdE KK8wOM9xB9maEqymigngUUozC tqazRlrBmyUPlkUIjrZ489YYX v qQwnOSPhaT1oVXRzdNWxvMqbD G3vIZMwaxdaOmIVN2rAAPWsUP xPVUVMTEEgTDwvdGQ+PHRkIHN 0 bYnzGOqsTZDkpO9nGNZeW2s2F pAgFtP3JEwxW8RfWUQhbzwdOu 89wV4gNoGiVgX2HOzcN6FxiyN 6 CQGrdHSsPTucQIT6H36ot0F5A XUrGYKxTDO3fKO0xH4reChfnp ogbGVmdDsgdmVydGljYWwtYWx p O956NCFlhSdkVcMqDiH2ZsV9S yB5E2NcJvu4UUGamAuxTK2rjU BgOMveYo3bgNazlKboGK2jGIB p nsqfIPQoiK3yVLOunNUmlFioE F0rYNHbghrax074MuUjBAL4ES GenVEkX5QthX4dTrMbYLRfCQS w S3TciQKpHIutG379WLkfYqX2C NQpyaCjN4NzTKIqaOrpXdX0p9 A9Va97OXJPMKXfskcikTY+PHR k BOH5oUixLUupRYTvcU9mMUJxK 5r1XyWwAtE7GLglP3MxNECkcw mmEc31uV0jEvOjGzN9BPckG9O v pqM1OMPgkFBxOHjgIPY7F69uv 7H3CCZgAHVhWYL5fSD1dI8pkN lnbjogbGVmdDsgdmVydGljYWw t KNmrL712VXGlfTuaKsCxpZAfH TwvdGQ+DBTtGXA4sMenWDhsGO CxvU5eKHPmD3e3KqArOdG1IOl u G6MeOQFkrjdtJz27cP9hLcRuA nC9SXtqN5LzenS2RXEtfZRbGY clJLU2J06yw6T7VPAkSGLgFXD 7 iNS0zV0sqVbgzvtqkTSxuRqyn zUheUsaMHzyRCceZ431JLZocR wkXc21aPRqoKokhdH3A4BcHnk v dHI+OY32SHDfVL54jLLtwMAiy 4hxbSj1JbJdITHoCEP9tZgwKD nfx6YkAOBkP01tnMSlk8V8ZLT v kLshdXGvDzCcwCE6kI6aAAcyj ucus5huxwwxWojhm7mbsh70fF 40E53pSUfbYBImOJSzDSOaSCN h wRcrxi9rkG5oPf3+FLFcqIE9f FO8hF7nNnBrStY8DUpoH306Tt VboZMzAprtr0nwz4wapRi8GdF w YTBheyQeaCdxKMB9t1EkAg44Y 29sIHdpZHRoPSIyMCUiIHZhbG yqmf2fsR1rHb2+RB1pf1dwdf0 1 iG13dZN+QUAdCRK9ySkiJPvdW RUexO6cEBvjHuR9AQVmScEvlH 32xTCyMIfdMi9buFyxsYarMK5 w HNIqadfio749MpXva7pgSYHlj EBtHXqyVVG9C59sd1X3ZLVtPD XyRGV5qFB7cC2rcBgqkccapQT m dHeijnNhoPmyNIljPJsxU047I NImbBarYoTorWReK1sjumUKSH 1lOjwvdGQ+HPNeJJO4nQdgGLj w BRTciF0sXFVhE3h1GsCeQiP5L CfsI9RqieN9HAVbwQKzFERjlC CAmJ5nkixvn6vdrzixNdVsNUN w JDv5DOp0EXKflUmgZxHhEST6E cM0UJG5uLHytY5ckOflyoabaC 9wOyc+RklOOjwvdGQ+PHRkIHN 0 iZxcJIypYKFfsV5nSHVoF7v0R aRoQjT1APbwF8VmgkO9ISLlqT YxSZFqsRBWyP9kcakqs1jghmd g EgVcWCMoDDd6ONf2NJKivHutE yYtYRT8VgO0KRL6iOKllZ8hlN njdknbhA7dZmu+TVJOOjwvdGQ + NAZeFEP1mVnoFSplUYVotW6vH GNcK3m4CqVzYvI1NNcaV8Rvik A3IFOcwVDkCPJstIDVtN3drvz j a8dqwbvxTtWnVUNmLUy3JFa1Y FUnrQodDcArXTI7CxV7IOR5hV RtwU3qgHolclwreE1oMrd+UGF 5 KYH8UH73DY04C6DnKhqkqLRuk +PHRhYmxlIHdpZHRoPScxMD OnZkIynObfDX3yQo7uDROhQYQ v bGxh (more content not included)... Normal [facility] Auto Diffon 01-08-2022 Basophils/100 WBC (Bld) 0.6 % Normal 0.0-2.0 [facility] Comment on above: Order Comment: Order Added by Discern Expert. Performed By: #### 2 [id number], [id number] #### [facility] [address] [place] [address] Basophils/Leukocytes Auto (Bld) [Pure # fraction] 0.1 E9/L Normal 0.0-0.2 [facility] Comment on above: Order Comment: Order Added by Discern Expert. Performed By: #### 2 [id number], [id number] #### [facility] [address] [place] [address] Eosinophils/100 WBC (Bld) 1.4 % Normal 0.0-8.0 [facility] Comment on above: Order Comment: Order Added by Discern Expert. Performed By: #### 2 [id number], [id number] #### [facility] [address] [place] [address] Eosinophils/Leukocytes Auto (Bld) [Pure # fraction] 0.2 E9/L Normal 0.0-0.5 [facility] Comment on above: Order Comment: Order Added by Discern Expert. Performed By: #### 2 [id number], [id number] #### [facility] [address] [place] [address] Lymphocytes/100 WBC (Bld) 35.6 % Normal 14.0-50.0 [facility] Comment on above: Order Comment: Order Added by Discern Expert. Performed By: #### 2 733294, [id number] #### [facility] [address] [place] [address] Lymphocytes/Leukocytes Auto (Bld) [Pure # fraction] 4.2 E9/L High 1.0-4.0 [facility] Comment on above: Order Comment: Order Added by Discern Expert. Performed By: #### 2 [id number], [id number] #### [facility] [address] [place] [address] Monocytes/100 WBC (Bld) 3.0 % Low 4.0-14.0 [facility] Comment on above: Order Comment: Order Added by Discern Expert. Performed By: #### 2 907362, [id number] #### [facility] [address] [place] [address] Monocytes/Leukocytes Auto (Bld) [Pure # fraction] 0.4 E9/L Normal 0.2-1.0 [facility] Comment on above: Order Comment: Order Added by Discern Expert. Performed By: #### 2 [id number], [id number] #### [facility] [address] [place] [address] Neutrophils/100 WBC (Bld) 59.4 % Normal 36.0-75.0 [facility] Comment on above: Order Comment: Order Added by Discern Expert. Performed By: #### 2 [id number], [id number] #### [facility] [address] [place] [address] Neutrophils/Leukocytes Auto (Bld) [Pure # fraction] 7.0 E9/L Normal 2.0-7.5 [facility] Comment on above: Order Comment: Order Added by Discern Expert. Performed By: #### 2 756298, [id number] #### [facility] [address] [place] [address] BMPon 01-08-2022 Anion gap [Moles/Vol] 17 mmol/L High 6-16 [facility] Comment on above: Performed By: #### 2 [id number], [id number] #### [facility] [address] [place] [address] Calcium [Mass/Vol] 10.1 mg/dL Normal 8.9-11.1 [facility] Comment on above: Performed By: #### 2 664537, [id number] #### [facility] [address] [place] [address] Chloride [Moles/Vol] 99 mmol/L Low 101-111 [facility] Comment on above: Performed By: #### 2 [id number], [id number] #### [facility] [address] [place] [address] CO2 [Moles/Vol] 22 mmol/L Normal - [facility] Comment on above: Performed By: #### 2 653915, [id number] #### [facility] [address] [place] [address] Creatinine [Mass/Vol] 1.1 mg/dL Normal 0.5-1.3 [facility] Comment on above: Performed By: #### 2 488924, [id number] #### [facility] [address] [place] [address] Glucose [Mass/Vol] 356 mg/dL High 55-199 [facility] Comment on above: Result Comment: If t his glucose result represents a fasting glucose, interpretation should refer to the following reference range: 55-99 mg/dL Performed By: #### 2 833601, [id number] #### [facility] [address] [place] [address] Potassium [Moles/Vol] 4.2 mmol/L Normal 3.5-5.3 [facility] Comment on above: Performed By: #### 2 714129, [id number] #### [facility] [address] [place] [address] Sodium [Moles/Vol] 134 mmol/L Low 135-145 [facility] Comment on above: Performed By: #### 2 266976, [id number] #### [facility] [address] [place] [address] Urea nitrogen [Mass/Vol] 18 mg/dL Normal 5-21 [facility] Comment on above: Performed By: #### 2 968709, [id number] #### [facility] [address] [place] [address] Urea nitrogen/Creatinine [Mass ratio] 16 No Units Normal 10-20 [facility] Comment on above: Performed By: #### 2 [id number], [id number] #### [facility] [address] [place] [address] CBC w/ Auto Diffon Erythrocyte distribution width (RBC) [Ratio] 13.5 % Normal 10.9-14.2 [facility] Comment on above: Performed By: #### 2 [id number], [id number] #### [facility] [address] [place] [address] Hematocrit (Bld) [Volume fraction] 46.4 % High 34.0-46.0 [facility] Comment on above: Performed By: #### 2 [id number], [id number] #### [facility] [address] [place] [address] Hemoglobin (Bld) [Mass/Vol] 15.8 g/dL Normal 12.0-16.0 [facility] Comment on above: Performed By: #### 2 [id number], [id number] #### [facility] [address] [place] [address] MCH (RBC) [Entitic mass] 30.4 pg Normal 27.0-34.0 [facility] Comment on above: Performed By: #### 2 [id number], [id number] #### [facility] [address] [place] [address] MCHC (RBC) [Mass/Vol] 34.1 g/dL Normal 31.4-36.[address] [facility] Comment on above: Performed By: #### 2 [id number], [id number] #### [facility] [address] [place] [address] MCV (RBC) [Entitic vol] 89.1 fL Normal 80.0-100.0 [facility] Comment on above: Performed By: #### 2 [id number], [id number] #### [facility] [address] [place] [address] Platelet mean volume (Bld) [Entitic vol] 9.8 fL Normal 6.4-10.8 [facility] Comment on above: Performed By: #### 2 [id number], [id number] #### [facility] [address] [place] [address] Platelets (Bld) [#/Vol] 252.0 E9/L Normal 150. 0-500. 0 [facility] Comment on above: Performed By: #### 2 [id number], [id number] #### [facility] [address] [place] [address] RBC (Bld) [#/Vol] 5.2 E12/L Normal 4.3-5.9 [facility] Comment on above: Performed By: #### 2 [id number], [id number] #### [facility] [address] [place] [address] WBC corrected for nucl RBC Auto (Bld) [#/Vol] 11.8 E9/L High 4.0-11.0 [facility] Comment on above: Performed By: #### 2 [id number], [id number] #### [facility] [address] [place] [address] CHEMISTRYOrdered By: SYSTEM SYSTEM on 01-08-2022 Anion [...] 53 mL/min/1.73 m2 Low >=59mL/min /1.73 m2 [facility] Chem S Glucose [Mass/Vol] 356 mg/dL High [...] Consent for Treatmenton 12-11 Consent for Treatment [id number]:12 7 Normal [facility] HEMATOLOGYOrdered By: SYSTEM SYSTEM on 01-08-2022 Basophils/100 [...] 9.8 fL Normal 6.4 - 10.8 fL [facility] Platelets (Bld) [#/Vol] 252.0 E9/L Normal 150. 0 - 500.0 E9/L [facility] RBC (Bld) [#/Vol] 5.2 E12/L Normal 4.3 - 5.9 E12/L [facility] WBC corrected for nucl RBC Auto (Bld) [#/Vol] 11.8 E9/L High 4.0 - 11.0 E9/L [facility] Pharmacy Officeon 01-08-2022 Pharmacy Office [id number]:1 27 Normal [facility] Physician Orderon 01-08-2022 Physician Order [id number]:12 7 Normal [facility] eGFRon 01-08-2022 GFR/1.73 sq M.predicted among blacks MDRD (S/P/Bld) [Vol rate/Area] mL/min/{1.73_m2} Normal >=59 [facility] Comment on above: Order Comment: Order added by Discern Expert. Result Comment: eGFR is race adjusted. AA=. Performed By: #### 2 [id number], [id number] #### [facility] [address] [place] [address] GFR/1.73 sq M.predicted among non-blacks MDRD (S/P/Bld) [Vol rate/Area] 53 mL/min/1.73 m2 Low >=59 [facility] Comment on above: Order Comment: Order added by Discern Expert. Result Comment: Health And Wellness Director shayne kidney disease could be indicated at eGFR's of less than 60 mL/min/1.73m2. Kidney failure is indicated at less than 15 mL/min/1.73m2. Performed By: #### 2 [id number], [id number] #### [facility] [address] [place] [address] PTH INTACTon 09-13-2021 PTH, Intact 17 pg/mL Normal 15-65 [facility] Comment on above: Performed By: #### M G, RENAL, URIC #### [facility] [address] [place], [place] [address] Dr. Tyree Botello HEMOGRAM AND PLATELon 2021 Hematocrit (Bld) [Volume fraction] 46.5 % Normal 36.0-48.0 [facility] Comment on above: Performed By: #### M G, RENAL, URIC #### [facility] [address] [place] [address] Dr. Tyree Botello Hemoglobin (Bld) [Mass/Vol] 15.7 g/dL Normal 12.0-16.0 [facility] Comment on above: Performed By: #### M G, RENAL, URIC #### [facility] [address] [place] [address] Dr. Tyree Botello MCH (RBC) [Entitic mass] 30.0 pg Normal 26.7-34.0 [facility] Comment on above: Performed By: #### M G, RENAL, URIC #### [facility] [address] [place] [address] Dr. Tyree Botello MCHC (RBC) [Mass/Vol] 33.8 g/dL Normal 29.9-35.2 [facility] Comment on above: Performed By: #### M G, RENAL, URIC #### [facility] [address] [place] [address] Dr. Tyree Botello MCV (RBC) [Entitic vol] 88.9 fL Normal 81.0-99.0 [facility] Comment on above: Performed By: #### M G, RENAL, URIC #### [facility] [address] [place] [address] Dr. Tyree Botello PLT 261 103/ul Normal 150-450 [facility] Comment on above: Performed By: #### M G, RENAL, URIC #### [facility] [address] [place] [address] Dr. Tyree Botello RBC 5.23 106/ul Normal 4.20-5.40 [facility] Comment on above: Performed By: #### M G, RENAL, URIC #### [facility] [address] [place] [address] Dr. Tyree Botello WBC 11.1 103/ul Critically high 4.0-11.0 [facility] Comment on above: Performed By: #### M G, RENAL, URIC #### [facility] [address] [place] [address] [address] Tyree Botello MAGNESIUMon 09-12-2021 Magnesium [Mass/Vol] 1.3 mg/dL Critically low 1.8-2.4 [facility] Comment on above: Performed By: #### M G, RENAL, URIC #### [facility] [address] [place] [address] Dr. Tyree Botello RENAL FUNCTION PANELon 09-12 Albumin [Mass/Vol] 3.4 g/dL Normal 3.4-5.0 [facility] Comment on above: Performed By: #### M G, RENAL, URIC #### [facility] [address] [place] [address] Dr. Tyree Botello Calcium [Mass/Vol] 10.3 mg/dL Critically high 8.5-10.1 [facility] Comment on above: Performed By: #### M G, RENAL, URIC #### [facility] [address] [place] [address] Dr. Tyree Botello Chloride [Moles/Vol] 100 mmol/L Normal 98-107 [facility] Comment on above: Performed By: #### M G, RENAL, URIC #### [facility] [address] [place] [address] Dr. Tyree Botello CO2 [Moles/Vol] 23.1 mmol/L Normal 21.0-32.0 [facility] [place] Comment on above: Performed By: #### M G, RENAL, URIC #### [facility] [address] [place] [address] Dr. Tyree Botello Creatinine [Mass/Vol] 1.11 mg/dL Critically high 0.55-1.02 [facility] [place] Comment on above: Performed By: #### M G, RENAL, URIC #### [facility] [address] [place] [address] Dr. Tyree Botello EGFR-AF [facility] >60 Normal >=60 [facility] [place] Comment on above: Performed By: #### M G, RENAL, URIC #### [facility] [address] [place] [address] Dr. Tyree Botello EGFR-NON AF [facility] 52 mL/min/1.73m2 Critically low >=60 [facility] Comment on above: Performed By: #### M G, RENAL, URIC #### [facility] [address] [place] [address] Dr. Tyree Botello Glucose [Mass/Vol] 239 mg/dL Critically high 74-106 T [facility] Comment on above: Performed By: #### M G, RENAL, URIC #### [facility] [address] [place] [address] Dr. Tyree Botello Phosphate [Mass/Vol] 2.6 mg/dL Normal 2.6-4.7 [facility] [place] Comment on above: Performed By: #### M G, RENAL, URIC #### [facility] [address] [place] [address] Dr. Tyree Botello Potassium [Moles/Vol] 4.2 mmol/L Normal 3.5-5.1 [facility] [place] Comment on above: Performed By: #### M G, RENAL, URIC #### [facility] [address] [place] [address] Dr. Tyree Botello Sodium [Moles/Vol] 137 mmol/L Normal 136-145 [facility] [place] Comment on above: Performed By: #### M G, RENAL, URIC #### [facility] [address] [place] [address] Dr. Tyree Botello Urea nitrogen [Mass/Vol] 21.0 mg/dL Critically high 7.0-18 .0 [facility] [place] Comment on above: Performed By: #### M G, RENAL, URIC #### [facility] [address] [place] [address] Dr. Tyree Botello UA RANDOM W/MICROSCOPICon BACTERIA MODERATE Abnormal NONE SEEN [facility] Comment on above: Performed By: #### M G, RENAL, URIC #### [facility] [address] [place] [address] Dr. Tyree Botello Bilirubin Ql (U) Negative Normal NEGATIVE [facility] Comment on above: Performed By: #### M G, RENAL, URIC #### [facility] [address] [place] [address] Dr. Tyree Botello CAST SEEN Abnormal NONE SEEN [facility] Comment on above: Performed By: #### M G, RENAL, URIC #### [facility] [address] [address] [address] Tyree Botello Clarity (U) CLEAR Normal CLEAR [facility] Comment on above: Performed By: #### M G, RENAL, URIC #### [facility] [address] [address] [address] Tyree Botello Color (U) YELLOW Normal YELLOW [facility] Comment on above: Performed By: #### M G, RENAL, URIC #### [facility] [address] [address] [address] Tyree Botello Crystals LM Nom (Urine sed) NONE SEEN Normal NONE SEEN [facility] Comment on above: Performed By: #### M G, RENAL, URIC #### [facility] [address] [place] [address] Dr. Tyree Botello Epithelial cells LM Ql (Urine sed) FEW Abnormal NONE SEEN /RARE [facility] Comment on above: Performed By: #### M G, RENAL, URIC #### [facility] [address] [place] [address] Dr. Tyree Botello Glucose Ql (U) >1000 Abnormal NEGATIVE [facility] Comment on above: Performed By: #### M G, RENAL, URIC #### [facility] [address] [place] [address] Dr. Tyree Botello Hemoglobin Ql (U) SMALL Abnormal NEGATIVE [facility] Comment on above: Performed By: #### M G, RENAL, URIC #### [facility] [address] [address] [address] Tyree Botello HYALINE CAST RARE Normal [facility] Comment on above: Performed By: #### M G, RENAL, URIC #### [facility] [address] [address] [address] Tyree Botello Ketones Ql (U) Negative Normal NEGATIVE [facility] Comment on above: Performed By: #### M G, RENAL, URIC #### [facility] [address] [place] [address] Dr. Tyree Botello LEUKOCYTES Negative Normal NEGATIVE [facility] Comment on above: Performed By: #### M G, RENAL, URIC #### [facility] [address] [address] [address] Tyree Botello MUCOUS NONE SEEN Normal NONE SEEN [facility] Comment on above: Performed By: #### M G, RENAL, URIC #### [facility] [address] [address] [address] Tyree Botello Nitrite Ql (U) Negative Normal NEGATIVE [facility] Comment on above: Performed By: #### M G, RENAL, URIC #### [facility] [address] [place] [address] Dr. Tyree Botello pH (U) 5.5 [pH] Normal 5-9 [facility] Comment on above: Performed By: #### M G, RENAL, URIC #### [facility] [address] [place] [address] Dr. Tyree Botello RBC 2-5 Abnormal 0-2 [facility] Comment on above: Performed By: #### M G, RENAL, URIC #### [facility] [address] [place] [address] Dr. Tyree Botello SPEC GRAVITY >=1.030 Abnormal 1.005-<=1. 025 [facility] Comment on above: Performed By: #### M G, RENAL, URIC #### [facility] [address] [place] [address] Dr. Tyree Botello UA PROTEIN 100 mg/dl Abnormal NEGATIVE/ TRACE [facility] Comment on above: Performed By: #### M G, RENAL, URIC #### [facility] [address] [place] [address] Dr. Tyree Botello Urobilinogen Qn (U) 0.2 {Jennifer'U}/dL Normal 0.2 - 1. 0 [facility] Comment on above: Performed By: #### M G, RENAL, URIC #### [facility] [address] [place] [address] Dr. Tyree Botello WBC 5-10 Abnormal NONE SEEN [facility] Comment on above: Performed By: #### M G, RENAL, URIC #### [facility] [address] [place] [address] Dr. Tyree Botello URIC ACID SERUMon 09-12-2021 Urate [Mass/Vol] 6.5 mg/dL Critically high 2.6-6.0 [facility] [place] Comment on above: Performed By: #### M G, RENAL, URIC #### [facility] [address] [place] [address] Dr. Tyree Botello URINE T PROTEIN CREAT RATIOo n 09-12-2021 Protein (U) [Mass/Vol] 177.8 mg/dL Critically high <=12.0 [facility] [place] Comment on above: Performed By: #### M G, RENAL, URIC #### [facility] [address] [place] [address] Dr. Tyree Botello UR PROT CREAT RAT 1.06 Normal [facility] [place] Comment on above: Performed By: #### M G, RENAL, URIC #### [facility] [address] [place] [address] Dr. Tyree Botello URINE CREAT 168.43 mg/dL Normal 20.00-300. 00 [facility] [place] Comment on above: Performed By: #### M G, RENAL, URIC #### [facility] [address] [place] [address] Dr. Tyree Botello VITAMIN D 25 OHon 09-12-2021 VIT D 25-OH 45.5 ng/mL Normal [facility] [place] Comment on above: Performed By: #### M G, RENAL, URIC #### [facility] [address] [place] [address] Dr. Tyree Botello VIT D RANGES SEE BELOW Normal [facility] Comment on above: Result Comment: <20 ng/mL Vit D deficient 20 - <30 ng/mL Vit D insufficient 30 - 100 ng/mL Vit D sufficient >100 ng/mL Potential Toxicity Performed By: #### M G, RENAL, URIC #### [facility] [address] [place] [address] Dr. Tyree Botello CBC AUTO DIFFon 08-30-2021 BASO # 0.1 103/ul Normal 0.0-0.1 [facility] [place] Comment on above: Performed By: #### M G, RENAL, URIC #### [facility] [address] [place] [address] Dr. Tyree Botello Basophils/100 WBC (Bld) 0.5 % Normal 0.2-2.0 [facility] Comment on above: Performed By: #### M G, RENAL, URIC #### [facility] [address] [place] [address] Dr. Tyree Botello EO # 0.1 103/ul Normal 0.0-0.7 [facility] [place] Comment on above: Performed By: #### M G, RENAL, URIC #### [facility] [address] [place] [address] Dr. Tyree Botello Eosinophils/100 WBC (Bld) 1.1 % Normal 0.9-7.0 [facility] [place] Comment on above: Performed By: #### M G, RENAL, URIC #### [facility] [address] [place] [address] Dr. Tyree Botello Erythrocyte distribution width (RBC) [Ratio] 12.7 % Normal 11.0-15.0 [facility] [place] Comment on above: Performed By: #### M G, RENAL, URIC #### [facility] [address] [place] [address] Dr. Tyree Botello Hematocrit (Bld) [Volume fraction] 44.6 % Normal 36.0-48.0 [facility] [place] Comment on above: Performed By: #### M G, RENAL, URIC #### [facility] [address] [place] [address] Dr. Tyree Botello Hemoglobin (Bld) [Mass/Vol] 15.0 g/dL Normal 12.0-16.0 [facility] [place] Comment on above: Performed By: #### M G, RENAL, URIC #### [facility] [address] [place] [address] Dr. Tyree Botelol IG # 0.05 10e3/ul Critically high 0.00-0.03 [facility] [place] Comment on above: Performed By: #### M G, RENAL, URIC #### [facility] [address] [place] [address] Dr. Tyree Botello IG % 0.4 % Normal 0.0-0.5 [facility] [place] Comment on above: Performed By: #### M G, RENAL, URIC #### [facility] [address] [place] [address] Dr. Tyree Botello LYMPH # 3.6 103/ul Normal 1.2-3.8 [facility] [place] Comment on above: Performed By: #### M G, RENAL, URIC #### [facility] [address] [place] [address] Dr. Tyree Botello Lymphocytes/100 WBC (Bld) 29.8 % Normal 20.5-60.0 [facility] [place] Comment on above: Performed By: #### M G, RENAL, URIC #### [facility] [address] [place] [address] Dr. Tyree Botello MANUAL DIFF REQ NO Normal [facility] [place] Comment on above: Performed By: #### M G, RENAL, URIC #### [facility] [address] [place] [address] Dr. Tyree Botello MCH (RBC) [Entitic mass] 29.9 pg Normal 26.7-34.0 [facility] [place] Comment on above: Performed By: #### M G, RENAL, URIC #### [facility] [address] [place] [address] Dr. Tyree Botello MCHC (RBC) [Mass/Vol] 33.6 g/dL Normal 29.9-35.2 [facility] [place] Comment on above: Performed By: #### M G, RENAL, URIC #### [facility] [address] [place] [address] Dr. Tyree Botello MCV (RBC) [Entitic vol] 88.8 fL Normal 81.0-99.0 [facility] Comment on above: Performed By: #### M G, RENAL, URIC #### [facility] [address] [place] [address] Dr. Tyree Botello MONO # 0.6 103/ul Normal 0.3-0.8 [facility] [place] Comment on above: Performed By: #### M G, RENAL, URIC #### [facility] [address] [address] [address] Tyree Botello Monocytes/100 WBC (Bld) 5.2 % Normal 1.7-12.0 [facility] Comment on above: Performed By: #### M G, RENAL, URIC #### [facility] [address] [place] [address] Dr. Tyree Botello NEUT # 7.5 103/ul Critically high 1.4-6.5 [facility] [place] Comment on above: Performed By: #### M G, RENAL, URIC #### [facility] [address] [place] [address] Dr. Tyree Botello Neutrophils/100 WBC (Bld) 63.0 % Normal 43.0-75.0 [facility] [place] Comment on above: Performed By: #### M G, RENAL, URIC #### [facility] [address] [place] [address] Dr. Tyree Botello Platelet mean volume (Bld) [Entitic vol] 11.4 fL Normal 9.5-13.5 [facility] [place] Comment on above: Performed By: #### M G, RENAL, URIC #### [facility] [address] [place] [address] Dr. Tyree Botello PLT 225 103/ul Normal 150-450 [facility] [place] Comment on above: Performed By: #### M G, RENAL, URIC #### [facility] [address] [place] [address] Dr. Tyree Botello RBC 5.02 106/ul Normal 4.20-5.40 [facility] [place] Comment on above: Performed By: #### M G, RENAL, URIC #### [facility] [address] [place] [address] Dr. Tyree Botello WBC 12.0 103/ul Critically high 4.0-11.0 [facility] [place] Comment on above: Performed By: #### M G, RENAL, URIC #### [facility] [address] [place] [address] Dr. Tyree Botello DEPAKENE/VALPROICon 08-30- 22 DEPAKENE 53.3 ug/ml Normal 50.0-100.0 [facility] [place] Comment on above: Performed By: #### M G, RENAL, URIC #### [facility] [address] [address] [address] Tyree Botello LIPID PROFILEon 08-30-2021 CHOL-HDL RATIO NORM SEE BELOW Normal [facility] [place] Comment on above: Result Comment: 3.3 - 4.4 LOW RISK 4.4 - 7.1 AVERAGE RISK 7.1 - 11.0 MODERATE RISK >11.0 HIGH RISK Performed By: #### M G, RENAL, URIC #### [facility] [address] [address] [address] Tyree Botello Cholesterol [Mass/Vol] 160 mg/dL Normal <=200 [facility] Comment on above: Performed By: #### M G, RENAL, URIC #### [facility] [address] [address] [address] Tyree Botello Cholesterol in HDL [Mass/Vol] 43 mg/dL Normal 40-60 [facility] [place] Comment on above: Performed By: #### M G, RENAL, URIC #### [facility] [address] [place], [place] [address] Dr. Tyree Botello Cholesterol in LDL [Mass/Vol] 76.0 mg/dL Normal [facility] [place] Comment on above: Performed By: #### M G, RENAL, URIC #### [facility] [address] [place], [place] [address] Dr. Tyree Botello Cholesterol.total/Choles terol in HDL [Mass ratio] 3.7 {ratio} Normal [facility] [place] Comment on above: Performed By: #### M G, RENAL, URIC #### [facility] [address] [place], [place] [address] Dr. Tyree Botello HDL NORMAL > or = 60 mg/dl - LO W CARDIOVASCULAR RISK <40 mg/dl - HIGH CARDIOVASCULAR RISK Normal [facility] [place] Comment on above: Performed By: #### M G, RENAL, URIC #### [facility] [address] [address] [address] Tyree Botello LDL CALC NORMAL SEE BELOW Normal [facility] [place] Comment on above: Result Comment: <100 mg/dl OPTIMAL 100 - 129 mg/dl NEAR OR ABOVE OPTIMAL 130 - 159 mg/dl BORDERLINE HIGH 160 - 189 mg/dl HIGH >190 mg/dl VERY HIGH Performed By: #### M G, RENAL, URIC #### [facility] [address] [place] [address] Dr. Tyree Botello Triglyceride [Mass/Vol] 205 mg/dL Critically high <=150 [facility] [place] Comment on above: Performed By: #### M G, RENAL, URIC #### [facility] [address] [place] [address] Dr. Tyree Botello VLDL CALC 41.0 mg/dL Normal [facility] [place] Comment on above: Performed By: #### M Quinton, RENAL, URIC #### [facility] [address] [place] [address] Dr. Tyree Botello LIVER PROFILEon 08-30-2021 Albumin [Mass/Vol] 3.0 g/dL Critically low 3.4-5.0 Th [facility] Comment on above: Performed By: #### M G, RENAL, URIC #### [facility] [address] [place] [address] Dr. Tyree Botello Albumin/Globulin [Mass ratio] 0.8 {ratio} Normal [facility] [place] Comment on above: Performed By: #### M G, RENAL, URIC #### [facility] [address] [place] [address] Dr. Tyree Botello ALP [Catalytic activity/Vol] 63 U/L Normal 46-116 [facility] [place] Comment on above: Performed By: #### M G, RENAL, URIC #### [facility] [address] [place] [address] Dr. Tyree Botello ALT [Catalytic activity/Vol] 49 U/L Normal 14-59 [facility] [place] Comment on above: Performed By: #### M G, RENAL, URIC #### [facility] [address] [place] [address] Dr. Tyree Botello AST [Catalytic activity/Vol] 23 U/L Normal 15-37 [facility] [place] Comment on above: Performed By: #### M G, RENAL, URIC #### [facility] [address] [address] [address] Tyree Botello BILI, CONJUGATED 0.1 mg/dL Normal 0.0-0.2 [facility] [place] Comment on above: Performed By: #### M G, RENAL, URIC #### [facility] [address] [place], [place] [address] Dr. Tyree Botello Bilirubin [Mass/Vol] 0.4 mg/dL Normal 0.2-1.0 [facility] [place] Comment on above: Performed By: #### M G, RENAL, URIC #### [facility] [address] [address] [address] Tyree Botello Globulin (S) [Mass/Vol] 3.7 g/dL Normal T [facility] Comment on above: Performed By: #### M G, RENAL, URIC #### [facility] [address] [place] [address] Dr. Tyree Botello Protein [Mass/Vol] 6.7 g/dL Normal 6.4-8.2 [facility] [place] Comment on above: Performed By: #### M G, RENAL, URIC #### [facility] [address] [place] [address] Dr. Tyree Botello Complete Blood Count with Au to Diffon 07-17-2021 BASOABS 97 cells/uL Normal 0-200 [facility] Comment on above: Order Comment: [facility] performed at: [employer], [employer] [facility], [address] [place] [address], [address] [place] [address], [id number], Survey Rodman: Senthil Ramsey MD [facility] Date/Time: [id number] [facility] Results Received Date/Time: [id number] [facility] Reported Date/Time: FASTING: UNKNOWN Performed By: #### L IPD, CMP, TSH, CBCAD #### [facility] [address] [place] [address] Basophils/100 WBC (Bld) 0.9 % Normal N [facility] Comment on above: Order Comment: [facility] performed at: [employer], [employer] [facility], [facility], [address] [place] [address], [address] [place] [address], Survey Rodman: Senthil Ramsey MD [facility] Date/Time: [facility] Results Received Date/Time: [facility] Reported Date/Time: FASTING: UNKNOWN Performed By: #### L IPD, CMP, TSH, CBCAD #### [facility] [address] [place] [address] EOSABS 97 cells/uL Normal 15-500 [facility] Comment on above: Order Comment: [facility] performed at: [employer], [employer] [facility], [address] [place] [address], [address] [place] [address], [address] [place] [address], Survey Rodman: Senthil Ramsey MD [facility] Date/Time: [facility] Results Received Date/Time: [facility] Reported Date/Time: FASTING: UNKNOWN Performed By: #### L IPD, CMP, TSH, CBCAD #### [facility] [address] [place] [address] Eosinophils/100 WBC (Bld) 0.9 % Normal [facility] Comment on above: Order Comment: [facility] performed at: [employer], [employer] [facility], [address] [place] [address], [address] [place] [address], [address] [place] [address], Survey Rodman: Senthil Ramsey MD [facility] Date/Time: [facility] Results Received Date/Time: [facility] Reported Date/Time: FASTING: UNKNOWN Performed By: #### L IPD, CMP, TSH, CBCAD #### [facility] [address] [place] [address] Erythrocyte distribution width (RBC) [Ratio] 13.6 % Normal 11.0-15.0 [facility] Comment on above: Order Comment: [facility] performed at: [employer], [employer] [facility], [address] [place] [address], [address] [place] [address], [address] [place] [address], Survey Rodman: Senthil Ramsey MD [facility] Date/Time: [facility] Results Received Date/Time: [facility] Reported Date/Time: FASTING: UNKNOWN Performed By: #### L IPD, CMP, TSH, CBCAD #### [facility] [address] [place] [address] Hematocrit (Bld) [Volume fraction] 48.3 % High 35.0-45.0 [facility] Comment on above: Order Comment: [facility] performed at: [employer], [employer] [facility], [address] [place] [address], [address] [place] [address], [address] [place] [address], Survey Rodman: Senthil Ramsey MD [facility] Date/Time: [facility] Results Received Date/Time: [facility] Reported Date/Time: FASTING: UNKNOWN Performed By: #### L IPD, CMP, TSH, CBCAD #### [facility] [address] [place] [address] Hemoglobin (Bld) [Mass/Vol] 16.7 g/dL High 11.7-15.5 [facility] Comment on above: Order Comment: [facility] performed at: [employer], [employer] [facility], [address] [place] [address], [address] [place] [address], [address] [place] [address], Survey Rodman: Senthil Ramsey MD [facility] Date/Time: [facility] Results Received Date/Time: [facility] Reported Date/Time: FASTING: UNKNOWN Performed By: #### L IPD, CMP, TSH, CBCAD #### [facility] [address] [place] [address] Lymphocytes (Bld) [#/Vol] 4.428 10*3/uL High 850-3900 [facility] Techn[facility] Comment on above: Order Comment: [facility] performed at: [employer], [employer] [facility], [address] [place] [address], [address] [place] [address], [id number], Survey Rodman: Senthil Ramsey MD [facility] Date/Time: [facility] Results Received Date/Time: [facility] Reported Date/Time: FASTING: UNKNOWN Performed By: #### L IPD, CMP, TSH, CBCAD #### [facility] Default [address] [place] [address] Lymphocytes/100 WBC (Bld) 41.0 % Normal [facility] Technician Comment on above: Order Comment: [facility] Testing performed at: [employer], [facility], [address] [place] [address], [address] [place] [address], [address] [place] [address], Survey [employer]man: Senthil Ramsey MD [facility] Collection Date/Time: [facility] Results Received Date/Time: [facility] Reported Date/Time: FASTING: UNKNOWN Performed By: #### L IPD, CMP, TSH, CBCAD #### [facility] Default [address] [place] [address] MCH (RBC) [Entitic mass] 31.0 pg Normal 27.0-33.0 [facility] Laboratory Technician Comment on above: Order Comment: [facility] Testing performed at: [employer], [employer], [address] [place] [address], [address] [place] [address], [address] [place] [address], Survey Rodman: Senthil Ramsey MD [facility] Collection Date/Time: [facility] Results Received Date/Time: [facility] Reported Date/Time: FASTING: UNKNOWN Performed By: #### L IPD, CMP, TSH, CBCAD #### [facility] Default [address] [place] [address] MCHC (RBC) [Mass/Vol] 34.6 g/dL Normal 32.0-36.0 [facility] Comment on above: Order Comment: [facility] Testing performed at: [employer] [facility], [address] [place] [address], [address] [place] [address], [phone], Survey Rodman: Senthil Ramsey MD [facility] Collection Date/Time: [facility] Results Received Date/Time: [facility] Reported Date/Time: FASTING: UNKNOWN Performed By: #### L IPD, CMP, TSH, CBCAD #### [facility] Default [address] [place] [address] MCV (RBC) [Entitic vol] 89.6 fL Normal 80.0-100.0 [facility] Comment on above: Order Comment: [facility] Testing performed at: [facility] [facility], [address] [place] [address], [address] [place] [address], [address] [place] [address], Survey Rodman: Senthil Ramsey MD [facility] Collection Date/Time: [facility] Results Received Date/Time: [facility] Reported Date/Time: FASTING: UNKNOWN Performed By: #### L IPD, CMP, TSH, CBCAD #### [facility] Default [address] [place] [address] MONOABS 605 cells/uL Normal 200-950 [facility] Comment on above: Order Comment: [facility] Testing performed at: [facility] [facility], [address] [place] [address], [address] [place] [address], [address] [place] [address], [employer]man: Senthil Ramsey MD [facility] Collection Date/Time: [facility] Results Received Date/Time: [facility] Reported Date/Time: FASTING: UNKNOWN Performed By: #### L IPD, CMP, TSH, CBCAD #### [facility] Default [address] [place] [address] Monocytes/100 WBC (Bld) 5.6 % Normal [facility] Specialist Comment on above: Order Comment: [facility] Testing performed at: [facility], [address] [place] [address], [address] [place] [address], [address] [place] [address], Survey Rodman: Senthil Ramsey MD [facility] Collection Date/Time: [facility] Results Received Date/Time: [facility] Reported Date/Time: FASTING: UNKNOWN Performed By: #### L IPD, CMP, TSH, CBCAD #### [facility] Default [address] [place] [address] Neutrophils (Bld) [#/Vol] 5.573 10*3/uL Normal 9432-3464 [facility] Specialist Comment on above: Order Comment: [facility] Testing performed at: [facility] [facility], [address] [facility], [address] [place] [address], [address] [place] [address], [employer]man: Senthil Ramsey MD [facility] Collection Date/Time: [facility] Results Received Date/Time: [facility] Reported Date/Time: FASTING: UNKNOWN Performed By: #### L IPD, CMP, TSH, CBCAD #### [facility] Default [address] [place] [address] Neutrophils/100 WBC (Bld) 51.6 % Normal [facility] Laboratory Technician Comment on above: Order Comment: [facility] Testing performed at: [employer], [employer] [facility], [address] [place] [address], [address] [place] [address], [address] [place] [address], [employer]: Senthil Ramsey MD [facility] Collection Date/Time: [facility] Results Received Date/Time: [facility] Reported Date/Time: FASTING: UNKNOWN Performed By: #### L IPD, CMP, TSH, CBCAD #### [facility] Default [address] [place] [address] Platelet mean volume (Bld) [Entitic vol] 11.4 fL Normal 7.5-12.5 [facility] Technician Comment on above: Order Comment: [facility] Testing performed at: [facility], [address] [place] [address], [address] [place] [address], [address] [place] [address], [employer]: Senthil Ramsey MD [facility] Collection Date/Time: [facility] Results Received Date/Time: [facility] Reported Date/Time: FASTING: UNKNOWN Performed By: #### L IPD, CMP, TSH, CBCAD #### [facility] Default [address] [place] [address] Platelets (Bld) [#/Vol] 239 10*3/uL Normal 140-400 [facility] Technician Comment on above: Order Comment: [facility] Testing performed at: [employer], [facility], [address] [place] [address], [address] [place] [address], [address] [place] [address], [employer]: Senthil Ramsey MD [facility] Collection Date/Time: [facility] Results Received Date/Time: [facility] Reported Date/Time: FASTING: UNKNOWN Performed By: #### L IPD, CMP, TSH, CBCAD #### [facility] Default [address] [place] [address] RBC (Bld) [#/Vol] 5.39 10*6/uL High 3.80-5.10 Miguel A [facility] [place] [facility] Technician Comment on above: Order Comment: [facility] Testing performed at: [employer], [facility], [address] [facility], [address] [place] [address], [address] [place] [address], [employer]man: Senhtil Ramsey MD [facility] Collection Date/Time: [facility] Results Received Date/Time: [facility] Reported Date/Time: FASTING: UNKNOWN Performed By: #### L IPD, CMP, TSH, CBCAD #### [facility] Default [address] [place] [address] WBC (Bld) [#/Vol] 10.8 10*3/uL Normal 3.8-10.8 Miguel A [facility] Microbi[facility] Laboratory Technician Comment on above: Order Comment: [facility] Testing performed at: [employer], [facility], [address] [facility], [address] [place] [address], [address] [place] [address], [employer]man: Senthil Ramsey MD [facility] Collection Date/Time: [facility] Results Received Date/Time: [facility] Reported Date/Time: FASTING: UNKNOWN Performed By: #### L IPD, CMP, TSH, CBCAD #### [facility] Default [address] [place] [address] Comprehensive Metabolic Pane brina 07-17-2021 Albumin [Mass/Vol] 4.2 g/dL Normal 3.6-5.1 [facility] Laboratory Technician Comment on above: Order Comment: [facility] Testing performed at: [employer], [facility], [address] [facility], [address] [place] [address], [address] [place] [address], [employer]man: Senthil Ramsey MD [facility] Collection Date/Time: [facility] Results Received Date/Time: [facility] Reported Date/Time: FASTING: UNKNOWN Performed By: #### L IPD, CMP, TSH, CBCAD #### [facility] Default [address] [place] [address] Albumin/Globulin [Mass ratio] 1.4 {ratio} Normal 1.0-2.5 [facility] Technician Comment on above: Order Comment: [facility] Testing performed at: [employer], [facility], [address] [place] [address], [address] [place] [address], [address] [place] [address], [employer]: Senthil Ramsey MD [facility] Collection Date/Time: [facility] Results Received Date/Time: [facility] Reported Date/Time: FASTING: UNKNOWN Performed By: #### L IPD, CMP, TSH, CBCAD #### [facility] Default [address] [place] [address] ALP [Catalytic activity/Vol] 65 U/L Normal 31-125 [facility] Technician Comment on above: Order Comment: [facility] Testing performed at: [employer], [facility], [address] [place] [address], [address] [place] [address], [address] [place] [address], [employer]man: Senthil Ramsey MD [facility] Collection Date/Time: [facility] Results Received Date/Time: [facility] Reported Date/Time: FASTING: UNKNOWN Performed By: #### L IPD, CMP, TSH, CBCAD #### [facility] Default [address] [place] [address] ALT [Catalytic activity/Vol] 30 U/L High 6-29 [facility] Technician Comment on above: Order Comment: [facility] Testing performed at: [employer], [facility], [address] [place] [address], [address] [place] [address], [address] [place] [address], [employer]man: Senthil Ramsey MD [facility] Collection Date/Time: [facility] Results Received Date/Time: [facility] Reported Date/Time: FASTING: UNKNOWN Performed By: #### L IPD, CMP, TSH, CBCAD #### [facility] Default [address] [place] [address] Anion gap [Moles/Vol] 20 mmol/L Normal 12-20 [facility] Comment on above: Order Comment: [facility] Testing performed at: [employer] [employer] [facility], [address] [facility], [address] [place] [address], [address] [place] [address], Survey [employer]man: Senthil Ramsey MD [facility] Collection Date/Time: [facility] Results Received Date/Time: [facility] Reported Date/Time: FASTING: UNKNOWN Result Comment: Effe ctive 03/16/2019 reference range changed. Performed By: #### L IPD, CMP, TSH, CBCAD #### [facility] Default [address] [place] [address] AST [Catalytic activity/Vol] 15 U/L Normal 10-35 [facility] Specialist Comment on above: Order Comment: [facility] Testing performed at: [employer], [facility], [address] [place] [address], [address] [place] [address], [address] [place] [address], Survey [employer]man: Senthil Ramsey MD [facility] Collection Date/Time: [facility] Results Received Date/Time: [facility] Reported Date/Time: FASTING: UNKNOWN Performed By: #### L IPD, CMP, TSH, CBCAD #### [facility] Default [address] [place] [address] Bilirubin [Mass/Vol] 0.4 mg/dL Normal 0.2-1.2 [facility] Specialist Comment on above: Order Comment: [facility] Testing performed at: [employer], [facility], [address] [place] [address], [address] [place] [address], [address] [place] [address], Survey [employer]man: Senthil Ramsey MD [facility] Collection Date/Time: [facility] Results Received Date/Time: [facility] Reported Date/Time: FASTING: UNKNOWN Performed By: #### L IPD, CMP, TSH, CBCAD #### [facility] Default [address] [place] [address] BUN/CREA 24 NOT APPLICABLE Normal 6-22 [facility] Specialist Comment on above: Order Comment: [facility] Testing performed at: [employer], [facility], [address] [place] [address], [address] [place] [address], [address] [place] [address], [employer]man: Senthil Ramsey MD [facility] Collection Date/Time: [facility] Results Received Date/Time: [facility] Reported Date/Time: FASTING: UNKNOWN Performed By: #### L IPD, CMP, TSH, CBCAD #### [facility] Default [address] [place] [address] Calcium [Mass/Vol] 10.2 mg/dL Normal 8.6-10.2 [facility] Specialist Comment on above: Order Comment: [facility] Testing performed at: [employer], [facility], [address] [place] [address], [address] [place] [address], [address] [place] [address], Survey Rodman: Senthil Ramsey MD [facility] Collection Date/Time: [facility] Results Received Date/Time: [facility] Reported Date/Time: FASTING: UNKNOWN Performed By: #### L IPD, CMP, TSH, CBCAD #### [facility] Default [address] [place] [address] Chloride [Moles/Vol] 103 mmol/L Normal 98-110 [facility] Comment on above: Order Comment: [facility] Testing performed at: [facility], [address] [place] [address], [address] [place] [address], [address] [place] [address], Survey [employer]man: Senthil Ramsey MD [facility] Collection Date/Time: [facility] Results Received Date/Time: [facility] Reported Date/Time: FASTING: UNKNOWN Performed By: #### L IPD, CMP, TSH, CBCAD #### [facility] Default [address] [place] [address] CO2 [Moles/Vol] 22 mmol/L Normal 20-32 [facility] Technician Comment on above: Order Comment: [facility] Testing performed at: [employer], [facility], [address] [place] [address], [address] [place] [address], [address] [place] [address], Survey Rodman: Senthil Ramsey MD [facility] Collection Date/Time: [facility] Results Received Date/Time: [facility] Reported Date/Time: FASTING: UNKNOWN Performed By: #### L IPD, CMP, TSH, CBCAD #### [facility] Default [address] [place] [address] Creatinine [Mass/Vol] 0.75 mg/dL Normal 0.50-1.10 Nor [facility] Technician Comment on above: Order Comment: [facility] Testing performed at: [employer], [facility], [address] [place] [address], [address] [place] [address], [address] [place] [address], Survey Rodman: Senthil Ramsey MD [facility] Collection Date/Time: [facility] Results Received Date/Time: [facility] Reported Date/Time: FASTING: UNKNOWN Performed By: #### L IPD, CMP, TSH, CBCAD #### [facility] Default [address] [place] [address] eGFRAA ([facility]) 108 mL/min/1.73m2 Normal > OR = 60 Nor [facility] Technician Comment on above: Order Comment: [facility] Testing performed at: [employer], [facility], [address] [place] [address], [address] [place] [address], [address] [place] [address], Survey [employer]man: Senthil Ramsey MD [facility] Collection Date/Time: [facility] Results Received Date/Time: [facility] Reported Date/Time: FASTING: UNKNOWN Performed By: #### L IPD, CMP, TSH, CBCAD #### [facility] Default [address] [place] [address] eGFRNAA ([facility]) 94 mL/min/1.73m2 Normal > OR = 60 Nor [facility] Technician Comment on above: Order Comment: [facility] Testing performed at: [employer], [facility], [address] [place] [address], [address] [place] [address], [address] [place] [address], Survey Rodman: Senthil Ramsey MD [facility] Collection Date/Time: [facility] Results Received Date/Time: [facility] Reported Date/Time: FASTING: UNKNOWN Performed By: #### L IPD, CMP, TSH, CBCAD #### [facility] Default [address] [place] [address] Globulin (S) [Mass/Vol] 3.0 g/dL Normal 1.9-3.7 [facility] [place] [facility] Techn[facility] Comment on above: Order Comment: [facility] Testing performed at: [employer], [facility], [address] [place] [address], [address] [place] [address], [address] [place] [address], Survey Rodman: Senthil Ramsey MD [facility] Collection Date/Time: [facility] Results Received Date/Time: [facility] Reported Date/Time: FASTING: UNKNOWN Performed By: #### L IPD, CMP, TSH, CBCAD #### [facility] Default [address] [place] [address] Glucose [Mass/Vol] 132 mg/dL High 65-99 [facility] Laboratory Technician Comment on above: Order Comment: [facility] Testing performed at: [facility], [address] [place] [address], [address] [place] [address], [address] [place] [address], Survey Rodman: Senthil Ramsey MD [facility] Collection Date/Time: [facility] Results Received Date/Time: [facility] Reported Date/Time: FASTING: UNKNOWN Result Comment: Fasting reference interval For someone without known diabetes, a glucose value >125 mg/dL indicates that they may have diabetes and this should be confirmed with a follow-up test. Performed By: #### L IPD, CMP, TSH, CBCAD #### [facility] Default [address] [place] [address] Potassium [Moles/Vol] 3.9 mmol/L Normal 3.5-5.3 Nor [facility] [place] [facility] Technician Comment on above: Order Comment: [facility] Testing performed at: [facility], [address] [facility], [address] [place] [address], [address] [place] [address], Survey Rodman: Senthil Ramsey MD [facility] Collection Date/Time: [facility] Results Received Date/Time: [facility] Reported Date/Time: FASTING: UNKNOWN Performed By: #### L IPD, CMP, TSH, CBCAD #### [facility] Default [address] [place] [address] Protein [Mass/Vol] 7.2 g/dL Normal 6.1-8.1 Latrell sanches [place] [facility] Technician Comment on above: Order Comment: [facility] Testing performed at: Q, [facility], [address] [place] [address], [address] [place] [address], [address] [place] [address], Survey [employer]man: Senthil Ramsey MD [facility] Collection Date/Time: [facility] Results Received Date/Time: [facility] Reported Date/Time: FASTING: UNKNOWN Performed By: #### L IPD, CMP, TSH, CBCAD #### [facility] Default [address] [place] [address] Sodium [Moles/Vol] 141 mmol/L Normal 135-146 Latrell sanches [place] [facility] Technician Comment on above: Order Comment: [facility] Testing performed at: [employer], [facility], [address] [place] [address], [address] [place] [address], [address] [place] [address], Survey Rodman: Senthil Ramsey MD [facility] Collection Date/Time: [facility] Results Received Date/Time: [facility] Reported Date/Time: FASTING: UNKNOWN Performed By: #### L IPD, CMP, TSH, CBCAD #### [facility] Default [address] [place] [address] Urea nitrogen [Mass/Vol] 18 mg/dL Normal 7-25 [facility] Technician Comment on above: Order Comment: [facility] Testing performed at: [employer], [address] [place] [address], [address] [place] [address], [phone], Survey Rodman: Senthil Ramsey MD [facility] Collection Date/Time: [facility] Results Received Date/Time: [facility] Reported Date/Time: FASTING: UNKNOWN Performed By: #### L IPD, CMP, TSH, CBCAD #### [facility] Default [address] [place] [address] Lipid Panelon 07-17-2021 Cholesterol [Mass/Vol] 306 mg/dL High <200 [facility] Comment on above: Order Comment: [facility] Testing performed at: [employer], [facility], [address] [place] [address], [address] [place] [address], [address] [place] [address], Survey Rodman: Senthil Ramsey MD [facility] Collection Date/Time: [facility] Results Received Date/Time: [facility] Reported Date/Time: FASTING: UNKNOWN Performed By: #### L IPD, CMP, TSH, CBCAD #### [facility] Default [address] [place] [address] Cholesterol in HDL [Mass/Vol] 49 mg/dL Low > OR = 50 [facility] Technician Comment on above: Order Comment: [facility] Testing performed at: [facility], [address] [place] [address], [address] [place] [address], [address] [place] [address], Survey Rodman: Senthil Ramsey MD [facility] Collection Date/Time: [facility] Results Received Date/Time: [facility] Reported Date/Time: FASTING: UNKNOWN Performed By: #### L IPD, CMP, TSH, CBCAD #### [facility] Default [address] [place] [address] LDLD SEE NOTE Normal [facility] Technician Comment on above: Order Comment: [facility] Testing performed at: [facility], [address] [place] [address], [address] [place] [address], [address] [place] [address], Survey Rodman: Senthil Ramsey MD [facility] Date/Time: [facility] [...] factors. LDL-C is now calculated using the Joseph calculation, which is a validated novel method providing better accuracy than the Friedewald equation in the estimation of LDL-C. Nabil SS et al. CHRISTIN. 2013;310(19): 0180-3276 (http://education.Netsocket.Webroot/faq/OFR236) Performed By: #### L IPD, CMP, TSH, CBCAD #### [facility] Default [address] [place] [address] NON HDL CHOLESTEROL 257 mg/dL (calc) High <130 [facility] Specialist Comment on above: Order Comment: [facility] Testing performed at: [facility], [address] [place] [address], [address] [place] [address], [phone], Survey Rodman: Senthil Ramsey MD [facility] Collection Date/Time: [facility] [...] TSH, CBCAD #### [facility] Default [address] [place] [address] Triglyceride [Mass/Vol] 403 mg/dL High <150 N [facility] Comment on above: Order Comment: [facility] Testing performed at: [facility], [address] [place] [address], [address] [place] [address], [phone], Survey Rodman: Senthil Ramsey MD [facility] Collection Date/Time: [facility] Results Received Date/Time: [facility] Reported Date/Time: FASTING: UNKNOWN Result Comment: If a non-fasting specimen was collected, consider repeat triglyceride testing on a fasting specimen if clinically indicated. Leonie et al. J. of Clin. Lipidol. 2015;9:129-169. Performed By: #### L IPD, CMP, TSH, CBCAD #### [facility] Default [address] [place] [address] TSHon 07-17-2021 TSH Qn 0.95 m[IU]/L Normal [facility] Comment on above: Order Comment: [facility] Testing performed at: Q, [facility], [address] [facility], [address] [place] [address], [phone], Survey Rodman: Senthil Ramsey MD [facility] Collection Date/Time: [facility] Results Received Date/Time: [facility] Reported Date/Time: FASTING: UNKNOWN Result Comment: Refe rence Range > or = 20 Years 0.40-4.50 Ranges First trimester 0.26-2.66 Second trimester 0.55-2.73 Third trimester 0.43-2.91 Performed By: #### L IPD, CMP, TSH, CBCAD #### [facility] Default [address] [place] [address] XR Spine Lumbar Complete w/F levi AND [place] 05-25-2021 XR Spine Lumbar Complete w/Flex AND [...] by Rich Soriano on 05/26/2021 0756 Normal [facility] - Hematology and Cell countson 07-22-2020 Nucleated RBC/100 WBC (Bld) [Ratio] 0.2 % 0-0.5 [facility] Vital Signs Date Time Vital Sign Value Performing Clinician Facility 12-01-2024 14:28-0400 Body height 162.6 cm Laverne Petznick DO Work Phone: [facility] 12-01-2024 14:28-0400 Body mass index (BMI) [Ratio] 35.19 kg/m2 Laverne Petznick DO Work Phone: [facility] 12-01-2024 14:28-0400 Body temperature 98.71 [degF] Laverne Petznick DO Work Phone: [facility] 12-01-2024 14:28-0400 Body weight 92.99 kg Laverne Petznick DO Work Phone: [facility] 12-01-2024 14:28-0400 Diastolic blood pressure 64 mm[Hg] Laverne Petznick DO Work Phone: [facility] 12-01-2024 14:28-0400 Heart rate 87 /min Laverne Petznick DO Work Phone: [facility] 12-01-2024 14:28-0400 SaO2% (BldA) [Mass fraction] 97 % Laverne Petznick DO Work Phone: [facility] 12-01-2024 14:28-0400 Systolic blood pressure 136 mm[Hg] Laverne Petznick DO Work Phone: [facility] 11-17-2024 14:40-0400 Diastolic blood pressure 92 mm[Hg] Magalie LESTER Work Phone: [facility] 11-17-2024 14:40-0400 Heart rate 99 /min Magalie LESTER Work Phone: [facility] 11-17-2024 14:40-0400 Respiratory rate 18 /min Magalie LESTER Work Phone: [facility] 11-17-2024 14:40-0400 SaO2% (BldA) [Mass fraction] 97 % Magalie LESTER Work Phone: [facility] 11-17-2024 14:40-0400 Systolic blood pressure 147 mm[Hg] Magalie Green PA Work Phone: [facility] 11-12-2024 14:55-0400 Body height 162.6 cm Eliazar Filiberto DPM Work Phone: [facility] 11-12-2024 14:55-0400 Body mass index (BMI) [Ratio] 34.84 kg/m2 Eliazarmar Pires DPM Work Phone: [facility] 11-12-2024 14:55-0400 Body weight 92.08 kg Eliazarmar Pires DPM Work Phone: [facility] 11-12-2024 14:55-0400 Respiratory rate 18 /min Eliazar Pires DPM Work Phone: [facility] 10-13-2024 13:48-0400 Diastolic blood pressure 77 mm[Hg] Sterling Ford MD [facility] 10-13-2024 13:48-0400 Systolic blood pressure 157 mm[Hg] Sterling Ford MD [facility] 10-08-2024 14:10-0400 Diastolic blood pressure 99 mm[Hg] Magalie LESTER Work Phone: [facility] 10-08-2024 14:10-0400 Heart rate 95 /min Magalie Green PA Work Phone: [facility] 10-08-2024 14:10-0400 Respiratory rate 18 /min Magalie Green PA Work Phone: [facility] 10-08-2024 14:10-0400 SaO2% (BldA) [Mass fraction] 97 % Magalie Geren PA Work Phone: [facility] 10-08-2024 14:10-0400 Systolic blood pressure 160 mm[Hg] Magalie Green PA Work Phone: [facility] 09-17-2024 08:01-0400 Diastolic blood pressure 106 mm[Hg] Magalie Green PA Work Phone: [facility] 09-17-2024 08:01-0400 Heart rate 105 /min Magalie Sequeirajuan PA Work Phone: [facility] 09-17-2024 08:01-0400 Respiratory rate 18 /min Magalie Green PA Work Phone: [facility] 09-17-2024 08:01-0400 SaO2% (BldA) [Mass fraction] 99 % Magalie Sequeirajuan PA Work Phone: [facility] 09-17-2024 08:01-0400 Systolic blood pressure 148 mm[Hg] Magalie Sequeirajuan PA Work Phone: [facility] 09-09-2024 13:00-0400 Body height 162.6 cm Kala Lloyd MD Work Phone: [facility] 09-09-2024 13:00-0400 Body mass index (BMI) [Ratio] 34.91 kg/m2 Kala Lloyd MD Work Phone: [facility] 09-09-2024 13:00-0400 Body weight 92.26 kg Kala Lloyd MD Work Phone: [facility] 09-09-2024 13:00-0400 Diastolic blood pressure 82 mm[Hg] Kala Lloyd MD Work Phone: [facility] 09-09-2024 13:00-0400 Heart rate 101 /min Kala Lloyd MD Work Phone: [facility] 09-09-2024 13:00-0400 Respiratory rate 18 /min Kala Lloyd MD Work Phone: [facility] 09-09-2024 13:00-0400 SaO2% (BldA) [Mass fraction] 97 % Kala Lloyd MD Work Phone: [facility] 09-09-2024 13:00-0400 Systolic blood pressure 140 mm[Hg] Kala Lloyd MD Work Phone: [facility] 09-03-2024 14:26-0400 Body height 162.6 cm Eliazar Pires DPM Work Phone: [facility] 09-03-2024 14:26-0400 Body mass index (BMI) [Ratio] 35.36 kg/m2 Eliazar Pires DPM Work Phone: [facility] 09-03-2024 14:26-0400 Body weight 93.44 kg Eliazar Pires DPM Work Phone: [facility] 09-03-2024 14:26-0400 Respiratory rate 18 /min Eliazar Pires DPM Work Phone: [facility] 08-28-2024 13:18-0400 Body height 162.6 cm Laverne Petznick DO Work Phone: [facility] 08-28-2024 13:18-0400 Body mass index (BMI) [Ratio] 35.36 kg/m2 Laverne Petznick DO Work Phone: [facility] 08-28-2024 13:18-0400 Body temperature 98.1 [degF] Laverne Petznick DO Work Phone: [facility] 08-28-2024 13:18-0400 Body weight 93.44 kg Laverne Petznick DO Work Phone: [facility] 08-28-2024 13:18-0400 Diastolic blood pressure 76 mm[Hg] Laverne Petznick DO Work Phone: [facility] 08-28-2024 13:18-0400 Heart rate 89 /min Laverne Petznick DO Work Phone: [facility] 08-28-2024 13:18-0400 SaO2% (BldA) [Mass fraction] 96 % Laverne Petznick DO Work Phone: [facility] 08-28-2024 13:18-0400 Systolic blood pressure 134 mm[Hg] Laverne Petznick DO Work Phone: [facility] 08-27-2024 09:00-0400 Body mass index (BMI) [Ratio] 34.33 kg/m2 Magalie LESTER Work Phone: [facility] 08-27-2024 09:00-0400 Body weight 90.72 kg Magalie Sequeirajuan PA Work Phone: [facility] 08-27-2024 09:00-0400 Diastolic blood pressure 85 mm[Hg] Magalie Sequeirajuan PA Work Phone: [facility] 08-27-2024 09:00-0400 Heart rate 87 /min Magalie Sequeirajuan PA Work Phone: [facility] 08-27-2024 09:00-0400 Respiratory rate 16 /min Magalie Sequeiraenberg PA Work Phone: [facility] 08-27-2024 09:00-0400 SaO2% (BldA) [Mass fraction] 98 % Magalie Nijuan PA Work Phone: [facility] 08-27-2024 09:00-0400 Systolic blood pressure 167 mm[Hg] Magalie Sequeirajuan PA Work Phone: [facility] 07-30-2024 13:59-0400 Body height 162.6 cm Kala Lloyd MD Work Phone: [facility] 07-30-2024 13:59-0400 Body mass index (BMI) [Ratio] 35.46 kg/m2 Kala Lloyd MD Work Phone: [facility] 07-30-2024 13:59-0400 Body weight 93.71 kg Kala Lloyd MD Work Phone: [facility] 07-30-2024 13:59-0400 Diastolic blood pressure 70 mm[Hg] Kala Lloyd MD Work Phone: [facility] 07-30-2024 13:59-0400 Heart rate 79 /min Kala Lloyd MD Work Phone: [facility] 07-30-2024 13:59-0400 Respiratory rate 18 /min Kala Lloyd MD Work Phone: [facility] 07-30-2024 13:59-0400 SaO2% (BldA) [Mass fraction] 97 % Kala Lloyd MD Work Phone: [facility] 07-30-2024 13:59-0400 Systolic blood pressure 124 mm[Hg] Kala Lloyd MD Work Phone: [facility] 07-09-2024 13:43-0400 Diastolic blood pressure 112 mm[Hg] Magalie LESTER Work Phone: [facility] Comment on above: patient has no symptoms. Reports she is in pain and under stress -had no sleep and has running back and forth to [facility] due to sisters illness 07-09-2024 13:43-0400 Heart rate 83 /min Magalie LESTER Work Phone: [facility] 07-09-2024 13:43-0400 Respiratory rate 16 /min Magalie LESTER Work Phone: [facility] 07-09-2024 13:43-0400 SaO2% (BldA) [Mass fraction] 99 % Magalie LESTER Work Phone: [facility] 07-09-2024 13:43-0400 Systolic blood pressure 159 mm[Hg] Magalie LESTER Work Phone: [facility] Comment on above: patient has no symptoms. Reports she is in pain and under stress -had no sleep and has running back and forth to [facility] due to sisters illness 06-29-2024 13:28-0400 Body height 162.6 cm Danii Manley MD Work Phone: [facility] 06-29-2024 13:28-0400 Body mass index (BMI) [Ratio] 34.16 kg/m2 Danii Manley MD Work Phone: [facility] 06-29-2024 13:28-0400 Body weight 90.27 kg Danii Manley MD Work Phone: [facility] 06-29-2024 13:28-0400 Diastolic blood pressure 94 mm[Hg] Danii Manley MD Work Phone: [facility] 06-29-2024 13:28-0400 Heart rate 98 /min Danii Manley MD Work Phone: [facility] 06-29-2024 13:28-0400 Respiratory rate 18 /min Danii Manley MD Work Phone: [facility] 06-29-2024 13:28-0400 SaO2% (BldA) [Mass fraction] 97 % Danii Manley MD Work Phone: [facility] 06-29-2024 13:28-0400 Systolic blood pressure 182 mm[Hg] Danii Manley MD Work Phone: [facility] 06-25-2024 16:25-0400 Body height 165.1 cm Eliazar Pires DPM Work Phone: [facility] 06-25-2024 16:25-0400 Body mass index (BMI) [Ratio] 33.61 kg/m2 Eliazar Pires DPM Work Phone: [facility] 06-25-2024 16:25-0400 Body weight 91.63 kg Eliazar Pires DPM Work Phone: [facility] 06-25-2024 16:25-0400 Respiratory rate 18 /min Eliazar Pires DPM Work Phone: [facility] 06-23-2024 14:46-0400 Diastolic blood pressure 80 mm[Hg] Sterling Ford MD [facility] 06-23-2024 14:46-0400 Systolic blood pressure 129 mm[Hg] Sterling Ford MD [facility] 06-18-2024 13:53-0400 Body height 165.1 cm Kaylie Chavez APRN Work Phone: [facility] 06-18-2024 13:53-0400 Body mass index (BMI) [Ratio] 33.7 kg/m2 Kaylie Chavez APRN Work Phone: [facility] 06-18-2024 13:53-0400 Body temperature 96.9 [degF] Kaylie Chavez COILED COIL INSPECTOR Work Phone: [facility] 06-18-2024 13:53-0400 Body weight 92.13 kg Kaylie Chavez [employer]ILED COIL INSPECTOR Work Phone: [facility] 06-18-2024 13:53-0400 Diastolic blood pressure 81 mm[Hg] Kaylie Cahvez [employer]ED [employer]IL INSPECTOR Work Phone: [facility] 06-18-2024 13:53-0400 Heart rate 86 /min Kaylie Chavez COILED COIL INSPECTOR Work Phone: [facility] 06-18-2024 13:53-0400 Respiratory rate 16 /min Kaylie Chavez COILED COIL INSPECTOR Work Phone: [facility] 06-18-2024 13:53-0400 SaO2% (BldA) [Mass fraction] 98 % Kaylie Chavez COILED COIL INSPECTOR Work Phone: [facility] 06-18-2024 13:53-0400 Systolic blood pressure 147 mm[Hg] Kaylie Chavez COILED COIL INSPECTOR Work Phone: [facility] 05-19-2024 15:25-0400 Body height 165.1 cm Laverne Petznick DO Work Phone: [facility] 05-19-2024 15:25-0400 Body mass index (BMI) [Ratio] 33.61 kg/m2 Laverne Petznick DO Work Phone: [facility] 05-19-2024 15:25-0400 Body temperature 98.71 [degF] Laverne Petznick DO Work Phone: [facility] 05-19-2024 15:25-0400 Body weight 91.63 kg Laverne Petznick DO Work Phone: [facility] 05-19-2024 15:25-0400 Diastolic blood pressure 74 mm[Hg] Laverne Petznick DO Work Phone: [facility] 05-19-2024 15:25-0400 Heart rate 83 /min Laverne Petznick DO Work Phone: [facility] 05-19-2024 15:25-0400 SaO2% (BldA) [Mass fraction] 96 % Laverne Manzanoick DO Work Phone: [facility] 05-19-2024 15:25-0400 Systolic blood pressure 130 mm[Hg] Laverne Manzanoick DO Work Phone: [facility] 05-14-2024 14:22-0500 Diastolic blood pressure 88 mm[Hg] Magalie Green PA Work Phone: [facility] 05-14-2024 14:22-0500 Heart rate 81 /min Magaliebud Green PA Work Phone: [facility] 05-14-2024 14:22-0500 Respiratory rate 16 /min Magaliebud Green PA Work Phone: [facility] 05-14-2024 14:22-0500 SaO2% (BldA) [Mass fraction] 98 % Magalie Green PA Work Phone: [facility] 05-14-2024 14:22-0500 Systolic blood pressure 148 mm[Hg] Magalie Green PA Work Phone: [facility] 05-07-2024 14:18-0500 Body mass index (BMI) [Ratio] 33.25 kg/m2 Kala Lloyd MD Work Phone: [facility] 05-07-2024 14:18-0500 Body weight 90.63 kg Kala Lloyd MD Work Phone: [facility] 05-07-2024 14:18-0500 Diastolic blood pressure 74 mm[Hg] Kala Lloyd MD Work Phone: [facility] 05-07-2024 14:18-0500 Heart rate 78 /min Kala Lloyd MD Work Phone: [facility] 05-07-2024 14:18-0500 SaO2% (BldA) [Mass fraction] 98 % Kala Lloyd MD Work Phone: [facility] 05-07-2024 14:18-0500 Systolic blood pressure 144 mm[Hg] Kala Lloyd MD Work Phone: [facility] 05-05-2024 14:38-0500 Body height 165.1 cm Kala Lloyd MD Work Phone: [facility] 05-05-2024 14:38-0500 Body mass index (BMI) [Ratio] 33.45 kg/m2 Kala Lloyd MD Work Phone: [facility] 05-05-2024 14:38-0500 Body weight 91.17 kg Kala Lloyd MD Work Phone: [facility] 05-05-2024 14:38-0500 Diastolic blood pressure 88 mm[Hg] Kala Lloyd MD Work Phone: [facility] 05-05-2024 14:38-0500 Heart rate 74 /min Kala Lloyd MD Work Phone: [facility] 05-05-2024 14:38-0500 Respiratory rate 18 /min Kala Lloyd MD Work Phone: [facility] 05-05-2024 14:38-0500 SaO2% (BldA) [Mass fraction] 98 % Kala Lloyd MD Work Phone: [facility] 05-05-2024 14:38-0500 Systolic blood pressure 144 mm[Hg] Kala Lloyd MD Work Phone: [facility] 04-09-2024 16:35-0500 Body height 165.1 cm Eliazar Pires DPM Work Phone: [facility] 04-09-2024 16:35-0500 Body mass index (BMI) [Ratio] 33.28 kg/m2 Eliazar Pires DPM Work Phone: [facility] 04-09-2024 16:35-0500 Body weight 90.72 kg Eliazar Pires DPM Work Phone: [facility] 04-09-2024 16:35-0500 Respiratory rate 18 /min Eliazar Pires DPM Work Phone: [facility] 04-02-2024 13:04-0500 Diastolic blood pressure 110 mm[Hg] Magalie Sequeirajuan PA Work Phone: [facility] 04-02-2024 13:04-0500 Heart rate 89 /min Magalie Sequeirajuan PA Work Phone: [facility] 04-02-2024 13:04-0500 Respiratory rate 18 /min Magalie Sequeirajuan PA Work Phone: [facility] 04-02-2024 13:04-0500 SaO2% (BldA) [Mass fraction] 97 % Magalie Sequeirajuan PA Work Phone: [facility] 04-02-2024 13:04-0500 Systolic blood pressure 157 mm[Hg] Magalie Sequeirajuan PA Work Phone: [facility] 01-31-2024 11:44-0500 Body height 165.1 cm Kala Lloyd MD Work Phone: [facility] 01-31-2024 11:44-0500 Body mass index (BMI) [Ratio] 33.32 kg/m2 Kala Lloyd MD Work Phone: [facility] 01-31-2024 11:44-0500 Body weight 90.81 kg Kala Lloyd MD Work Phone: [facility] 01-31-2024 11:44-0500 Diastolic blood pressure 78 mm[Hg] Kala Lloyd MD Work Phone: [facility] 01-31-2024 11:44-0500 Heart rate 98 /min Kala Lloyd MD Work Phone: [facility] 01-31-2024 11:44-0500 Respiratory rate 18 /min Kala Lloyd MD Work Phone: [facility] 01-31-2024 11:44-0500 SaO2% (BldA) [Mass fraction] 96 % Kala Lloyd MD Work Phone: [facility] 01-31-2024 11:44-0500 Systolic blood pressure 130 mm[Hg] Kala Lloyd MD Work Phone: [facility] 01-21-2024 12:33-0500 Diastolic blood pressure 100 mm[Hg] Magalie LESTER Work Phone: [facility] 01-21-2024 12:33-0500 Heart rate 88 /min Magalie Green PA Work Phone: [facility] 01-21-2024 12:33-0500 Respiratory rate 20 /min Magalie Green PA Work Phone: [facility] 01-21-2024 12:33-0500 Systolic blood pressure 170 mm[Hg] Magalie Green PA Work Phone: [facility] 01-20-2024 13:02-0500 Body height 165.1 cm Laverne Petznick DO Work Phone: [facility] 01-20-2024 13:02-0500 Body mass index (BMI) [Ratio] 33.28 kg/m2 Laverne Petznick DO Work Phone: [facility] 01-20-2024 13:02-0500 Body temperature 98.6 [degF] Laverne Petznick DO Work Phone: [facility] 01-20-2024 13:02-0500 Body weight 90.72 kg Laverne Petznick DO Work Phone: [facility] 01-20-2024 13:02-0500 Diastolic blood pressure 80 mm[Hg] Laverne Petznick DO Work Phone: [facility] 01-20-2024 13:02-0500 Heart rate 100 /min Laverne Petznick DO Work Phone: [facility] 01-20-2024 13:02-0500 SaO2% (BldA) [Mass fraction] 96 % Laverne Petznick DO Work Phone: [facility] 01-20-2024 13:02-0500 Systolic blood pressure 154 mm[Hg] Laverne Petznick DO Work Phone: [facility] 01-16-2024 15:21-0500 Body height 165.1 cm Eliazar Pires DPM Work Phone: [facility] 01-16-2024 15:21-0500 Body mass index (BMI) [Ratio] 34.28 kg/m2 Eliazar Pires DPM Work Phone: [facility] 01-16-2024 15:21-0500 Body weight 93.44 kg Eliazar Pires DPM Work Phone: [facility] 01-16-2024 15:21-0500 Diastolic blood pressure 80 mm[Hg] Eliazar Pires DPM Work Phone: [facility] 01-16-2024 15:21-0500 Heart rate 78 /min Eliazar Pires DPM Work Phone: [facility] 01-16-2024 15:21-0500 Systolic blood pressure 126 mm[Hg] Eliazar Pires DPM Work Phone: [facility] 12-30-2023 13:37-0400 Body height 165.1 cm Danii Manley MD Work Phone: [facility] 12-30-2023 13:37-0400 Body mass index (BMI) [Ratio] 34.28 kg/m2 Danii Manley MD Work Phone: [facility] 12-30-2023 13:37-0400 Body weight 93.44 kg Danii Manley MD Work Phone: [facility] 12-30-2023 13:37-0400 Diastolic blood pressure 68 mm[Hg] Danii Manley MD Work Phone: [facility] 12-30-2023 13:37-0400 Heart rate 88 /min Danii Manley MD Work Phone: [facility] 12-30-2023 13:37-0400 Respiratory rate 18 /min Danii Manley MD Work Phone: [facility] 12-30-2023 13:37-0400 Systolic blood pressure 140 mm[Hg] Danii Manley MD Work Phone: [facility] 12-11-2023 13:31-0400 Body height 162.6 cm Live Verhoff PA-C Work Phone: [facility] 12-11-2023 13:31-0400 Body mass index (BMI) [Ratio] 34.16 kg/m2 Live Verhoff PA-C Work Phone: [facility] [employer] [facility] 12-11-2023 13:31-0400 Body weight 90.27 kg Live Verhoff PA-C Work Phone: [facility] [facility] 12-11-2023 13:31-0400 Diastolic blood pressure 92 mm[Hg] Live Verhoff PA-C Work Phone: [facility] 12-11-2023 13:31-0400 Heart rate 83 /min Live Verhoff PA-C Work Phone: [facility] 12-11-2023 13:31-0400 SaO2% (BldA) [Mass fraction] 97 % Live Verhoff PA-C Work Phone: [facility] 12-11-2023 13:31-0400 Systolic blood pressure 152 mm[Hg] Live Verhoff PA-C Work Phone: [facility] 11-21-2023 14:29-0400 Body height 165.1 cm TAMMIE Chavez Work Phone: [facility] 11-21-2023 14:29-0400 Body mass index (BMI) [Ratio] 33.4 kg/m2 [employer] INSPECTOR Kaylie Chavez Work Phone: [facility] 11-21-2023 14:29-0400 Body temperature 97.4 [degF] CO[employer]ED [employer] INSPECTOR Kaylie Chavez Work Phone: [facility] 11-21-2023 14:29-0400 Body weight 91.17 kg CO[employer]ED [employer] INSPECTOR Kaylie Chavez Work Phone: [facility] 11-21-2023 14:29-0400 Diastolic blood pressure 99 mm[Hg] TAMMIE Chavez Work Phone: [facility] 11-21-2023 14:29-0400 Heart rate 109 /min [employer]ED [employer] INSPECTOR Kaylie Chavez Work Phone: [facility] 11-21-2023 14:29-0400 Respiratory rate 16 /min COILED COIL INSPECTORDevi Chavez Work Phone: [facility] 11-21-2023 14:29-0400 SaO2% (BldA) [Mass fraction] 98 % CO[employer]ED COIL INSPECTORDevi Chavez Work Phone: [facility] 11-21-2023 14:29-040 Systolic blood pressure 167 mm[Hg] COILED COIL INSPECTOR Kaylie Chavez Work Phone: [facility] 11-07-2023 14:55-0400 Body height 165.1 cm Eliazar Pires DPM Work Phone: [facility] 11-07-2023 14:55-0400 Body mass index (BMI) [Ratio] 34.61 kg/m2 Eliazar Pires DPM Work Phone: [facility] 11-07-2023 14:55-0400 Body weight 94.35 kg Eliazar Brown DPM Work Phone: [facility] 11-07-2023 14:55-0400 Diastolic blood pressure 80 mm[Hg] Eliazar Pires DPM Work Phone: [facility] 11-07-2023 14:55-0400 Heart rate 79 /min Eliazar Pires DPM Work Phone: [facility] 11-07-2023 14:55-0400 Systolic blood pressure 126 mm[Hg] Eliazar Pires DPM Work Phone: [facility] 10-23-2023 13:18-0400 Diastolic blood pressure 90 mm[Hg] Live Kwon PA-C Work Phone: [facility] [employer] [facility] 10-23-2023 13:18-0400 Heart rate 87 /min Live Verhoff PA-C Work Phone: [facility] 10-23-2023 13:18-0400 Respiratory rate 16 /min Live Verhoff PA-C Work Phone: [facility] 10-23-2023 13:18-0400 SaO2% (BldA) [Mass fraction] 98 % Live Verhoff PA-C Work Phone: [facility] 10-23-2023 13:18-0400 Systolic blood pressure 139 mm[Hg] Live Verhoff PA-C Work Phone: [facility] 10-01-2023 14:45-0400 Body height 165.1 cm TAMMIE Chavez Work Phone: [facility] 10-01-2023 14:45-0400 Body mass index (BMI) [Ratio] 34 kg/m2 TAMMIE Chavez Work Phone: [facility] 10-01-2023 14:45-0400 Body weight 92.64 kg COILED COIL INSPECTORDevi Chavez Work Phone: [facility] 06-12-2023 10:56-0400 Body mass index (BMI) [Ratio] 33.81 kg/m2 Live Verhoff PA-C Work Phone: [facility] 06-12-2023 10:56-0400 Body weight 89.36 kg Live Verhoff PA-C Work Phone: [facility] 06-12-2023 10:56-0400 Diastolic blood pressure 75 mm[Hg] Live Verhoff PA-C Work Phone: [facility] 06-12-2023 10:56-0400 Heart rate 90 /min Live Verhoff PA-C Work Phone: [facility] 06-12-2023 10:56-0400 Respiratory rate 18 /min Live Verhoff PA-C Work Phone: [facility] 06-12-2023 10:56-0400 SaO2% (BldA) [Mass fraction] 97 % Live Resendizabilioff PA-C Work Phone: [facility] 06-12-2023 10:56-0400 Systolic blood pressure 152 mm[Hg] Live Kwon PA-C Work Phone: [facility] 04-25-2023 14:26-0500 Body height 165.[address] [facility] 04-25-2023 14:26-0500 Body mass index (BMI) [Ratio] 34 kg/m2 [facility] 04-25-2023 14:26-0500 Body temperature 97.2 [degF] [facility] 04-25-2023 14:26-0500 Body weight 92.[address] [facility] 04-25-2023 14:26-0500 Diastolic blood pressure 70 mm[Hg] [facility] 04-25-2023 14:26-0500 Heart rate 102 /min [facility] 04-25-2023 14:26-0500 Respiratory rate 16 /min [facility] 04-25-2023 14:26-0500 SaO2% (BldA) [Mass fraction] 97 % [facility] 04-25-2023 14:26-0500 Systolic blood pressure 139 mm[Hg] [facility] 04-11-2023 14:14-0500 Body height 165.1 cm Eliazar Pires DPM Work Phone: [facility] 04-11-2023 14:14-0500 Body mass index (BMI) [Ratio] 33.45 kg/m2 Eliazar Pires DPM Work Phone: [facility] 04-11-2023 14:14-0500 Body weight 91.17 kg Eliazar Pires DPM Work Phone: [facility] 04-11-2023 14:14-0500 Diastolic blood pressure 80 mm[Hg] Eliazar Pires DPM Work Phone: [facility] 04-11-2023 14:14-0500 Heart rate 82 /min Eliazar Pires DPM Work Phone: [facility] 04-11-2023 14:14-0500 Systolic blood pressure 130 mm[Hg] Eliazar Pires DPM Work Phone: [facility] 03-15-2023 12:54-0500 Body height 162.6 cm Bird Dykes MD Work Phone: [facility] 03-15-2023 12:54-0500 Body mass index (BMI) [Ratio] 35.7 kg/m2 Bird Dykes MD Work Phone: [employer] 03-15-2023 12:54-0500 Body weight 94.35 kg Bird Dykes MD [facility] 03-15-2023 12:54-0500 Diastolic blood pressure 80 mm[Hg] Bird Dykes MD [facility] 03-15-2023 12:54-0500 Heart rate 81 /min Bird Dykes MD Work Phone: [employer] 03-15-2023 12:54-0500 SaO2% (BldA) [Mass fraction] 98 % Bird Dykes MD Work Phone[facility] 03-15-2023 12:54-0500 Systolic blood pressure 140 mm[Hg] Bird Dykes MD Work Phone: [employer] 10-18-2022 15:00-0400 Body height 165.1 cm Nir Danis Other [employer] Other 10-18-2022 15:00-0400 Body mass index (BMI) [Ratio] 33.08 kg/m2 Nir Danis Other [employer] Other 10-18-2022 15:00-0400 Body temperature 97.1 [degF] Nir Danis Other [employer] Other 10-18-2022 15:00-0400 Body weight 90.18 kg Nir Danis Other [employer] Other 10-18-2022 15:00-0400 Diastolic blood pressure 98 mm[Hg] Nir Danis Other [employer] Other 10-18-2022 15:00-0400 Respiratory rate 18 /min Nir Danis Other [employer] Other 10-18-2022 15:00-0400 SaO2% (BldA) [Mass fraction] 98 % Nir Danis Other [employer] Other 10-18-2022 15:00-0400 Systolic blood pressure 167 mm[Hg] Nir Danis Other [employer] Other 07-12-2022 14:00-0400 Diastolic blood pressure 94 mm[Hg] MD Kala Lloyd Work Phone: [facility] 07-12-2022 14:00-0400 Heart rate 86 /min MD Kala Lloyd Work Phone: [facility] 07-12-2022 14:00-0400 Respiratory rate 16 /min MD Kala Lloyd Work Phone: [facility] 07-12-2022 14:00-0400 SaO2% (BldA) [Mass fraction] 99 % MD Kala Lloyd Work Phone: [facility] 07-12-2022 14:00-0400 Systolic blood pressure 165 mm[Hg] MD Kala Lloyd Work Phone: [facility] 07-12-2022 11:44-0400 Body height 162.56 cm MD Kala Lloyd Work Phone: [facility] 07-12-2022 11:44-0400 Body temperature 98.6 [degF] MD Kala Lloyd Work Phone: [facility] 07-12-2022 11:44-0400 Body weight 94.34 kg MD Kala Lloyd Work Phone: [facility] 06-04-2022 14:15-0400 Body height 165.1 cm Imad Asaad Other [facility] [employer] Other 06-04-2022 14:15-0400 Body mass index (BMI) [Ratio] 32.95 kg/m2 Imad Asaad Other [employer] Other 06-04-2022 14:15-0400 Body weight 89.81 kg Imad Asaad Other [employer] Other 06-04-2022 14:15-0400 Diastolic blood pressure 90 mm[Hg] Imad Asaad Other [employer] Other 06-04-2022 14:15-0400 Systolic blood pressure 145 mm[Hg] Imad Asaad Other [employer] Other 05-18-2022 11:46-0500 Body temperature 97.8 [degF] MD Kala Lloyd Work Phone: [facility] 05-18-2022 11:46-0500 Body weight 89.4 kg MD Kala Lloyd Work Phone: [facility] 05-18-2022 11:46-0500 Diastolic blood pressure 86 mm[Hg] MD Kala Lloyd Work Phone: [facility] 05-18-2022 11:46-0500 Heart rate 94 /min MD Kala Lloyd Work Phone: [facility] 05-18-2022 11:46-0500 Respiratory rate 16 /min MD Kala Lloyd Work Phone: [facility] 05-18-2022 11:46-0500 SaO2% (BldA) [Mass fraction] 98 % MD Kala Lloyd Work Phone: [facility] 05-18-2022 11:46-0500 Systolic blood pressure 149 mm[Hg] MD Kala Lloyd Work Phone: [facility] 04-12-2022 12:40-0500 Body height 165.1 cm Nir Danis Other [employer] Other 04-12-2022 12:40-0500 Body mass index (BMI) [Ratio] 32.85 kg/m2 Nir Danis Other [employer] Other 04-12-2022 12:40-0500 Body temperature 96.7 [degF] Nir Danis Other [employer] Other 04-12-2022 12:40-0500 Body weight 89.54 kg Nir Danis Other [employer] Other 04-12-2022 12:40-0500 Diastolic blood pressure 84 mm[Hg] Nir Danis Other [employer] Other 04-12-2022 12:40-0500 Respiratory rate 18 /min Nir Danis Other [employer] Other 04-12-2022 12:40-0500 SaO2% (BldA) [Mass fraction] 97 % Nir Danis Other [employer] Other 04-12-2022 12:40-0500 Systolic blood pressure 139 mm[Hg] Nir Danis Other [employer] Other 09-14-2021 13:00-0400 Body height 165.1 cm Nir Danis Other [employer] Other 09-14-2021 13:00-0400 Body mass index (BMI) [Ratio] 34.44 kg/m2 Nir Danis Other [employer] Other 09-14-2021 13:00-0400 Body temperature 96.6 [degF] Nir Danis Other [employer] Other 09-14-2021 13:00-0400 Body weight 93.9 kg Nir Danis Other [employer] Other 09-14-2021 13:00-0400 Diastolic blood pressure 80 mm[Hg] Nir Danis Other [employer] Other 09-14-2021 13:00-0400 Respiratory rate 18 /min Nir Danis Other [employer] Other 09-14-2021 13:00-0400 SaO2% (BldA) [Mass fraction] 97 % Nir Danis Other [employer] Other 09-14-2021 13:00-0400 Systolic blood pressure 132 mm[Hg] Nir Danis Other [employer] Other 04-22-2020 14:49-0500 Body height 165.1 cm MD Kala Lloyd Work Phone: [facility] Encounters Encounter Date Encounter Type Care Provider Facility Start: 12-09-2024 End: 12-09-2024 ambulatory Sumi Cottrell INSPECTOR ASSEMBLIES AND INSTALLATIONS [facility] Comment on above: Piriformis syndrome of left side (Primary Dx) Start: 12-09-2024 End: 12-09-2024 Bamboo flowsheet Sumi Cottrell INSPECTOR ASSEMBLIES AND INSTALLATIONS [facility] Start: 12-09-2024 End: 12-09-2024 Bamboo flowsheet Sumi Cottrell INSPECTOR ASSEMBLIES [employer] INSTALLATIONS [facility] Start: 12-07-2024 End: 12-07-2024 ambulatory Laverne Sanchezell DIRECTOR OF CONVENTION SERVICES Work Phone: [facility] Start: 12-01-2024 End: 12-01-2024 Office outpatient visit 25 minutes Laverne Porter DO Work Phone: [facility] 230 Comment on above: 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, with [...] (BMI) of 35.0 to 35.9 in adult ([facility]-HCC) Start: 12-01-2024 End: 12-01-2024 Bamboo flowsheet Sumi Cottrell INSPECTOR ASSEMBLIES AND INSTALLATIONS [facility] Start: 12-01-2024 End: 12-01-2024 Bamboo flowsheet Sumi Cottrell INSPECTOR ASSEMBLIES [employer] INSTALLATIONS [facility] Start: 12-01-2024 End: 12-01-2024 ambulatory Sumi Cottrell INS[employer]OR [employer]BLIES [employer] INSTALLATIONS [facility] Comment on above: Piriformis syndrome of left side (Primary Dx) Start: 11-24-2024 End: 11-24-2024 Bamboo flowsheet Lindy Valentino [facility] Work Phone: [facility] Start: 11-24-2024 End: 11-24-2024 Bamboo flowskalli Valentino [facility] Work Phone: [facility] Start: 11-24-2024 End: 11-24-2024 Clinical Support Lindy Valentino [facility] Work Phone: [facility] Comment on above: Bipolar 1 disorder ( HCC) Start: 11-19-2024 [facility] Start: 11-19-2024 End: 11-19-2024 Telephone encounter Louise Hale RN [facility] Start: 11-17-2024 End: 11-17-2024 Office outpatient visit 25 minutes Magalie Green PA Work Phone: [facility] Comment on above: Spinal stenosis of l umbar region with neurogenic claudication (Primary Dx) Start: 11-17-2024 End: 11-17-2024 ambulatory MAGALIE GREEN [facility] Start: 11-16-2024 End: 11-16-2024 Bamboo flowsheet Sumi Brink INSPECTOR ASSEMBLIES AND INSTALLATIONS [facility] Start: 11-16-2024 End: 11-16-2024 Bamboo flowsheet Sumi Brink INSPECTOR [employer]SEMBLIES [employer] INSTALLATIONS [facility] Start: 11-16-2024 End: 11-16-2024 ambulatory Sumi Brink INSPECTOR [employer]SEMBLIES [employer] INSTALLATIONS [facility] Comment on above: Piriformis syndrome of left side (Primary Dx) Start: 11-12-2024 End: 11-12-2024 Office outpatient visit 15 minutes Eliazar Pires DPM Work Phone: [facility] Comment on above: Metatarsalgia, left foot (Primary Dx); Diabetes 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 polyneuropathy, with long-term current use of insulin (HCC); Pain due to onychomycosis of toenails of both feet Start: 11-12-2024 End: 11-12-2024 ambulatory ELIAZAR PIRES Not Available Start: 11-12-2024 End: 11-12-2024 Bamboo flowsheet Eliazar Pires DPM Work Phone: [facility] Start: 11-12-2024 End: 11-12-2024 Bamboo flowsheet Eliazar Oswaldo Filiberto DPM Work Phone: [facility] Start: 11-05-2024 ambulatory Sterling Jensentamiaoscar [facility] Start: 11-02-2024 End: 11-02-2024 Bamboo flowsheet Sumi Brink INSPECTOR ASSEMBLIES AND INSTALLATIONS [facility] Start: 11-02-2024 End: 11-02-2024 Bamboo flowsheet Sumi Brink [employer]OR [employer]SEMBLIES [employer] INSTALLATIONS [facility] Start: 11-02-2024 End: 11-03-2024 ambulatory Sumi Brink [employer]OR [employer]SEMBLIES [employer] INSTALLATIONS [facility] Comment on above: Piriformis syndrome of left side (Primary Dx) Start: 10-28-2024 End: 10-28-2024 Bamboo flowsheet Sumi Brink INSPECTOR ASSEMBLIES AND INSTALLATIONS [facility] Start: 10-28-2024 End: 10-28-2024 Bamboo flowsheet Sumi Brink INSPECTOR ASSEMBLIES AND INSTALLATIONS [facility] Start: 10-28-2024 End: 10-29-2024 ambulatory Sumi Brink [employer]OR [employer]IES [employer] INSTALLATIONS [facility] Comment on above: Piriformis syndrome of left side (Primary Dx) Start: 10-21-2024 End: 10-21-2024 Bamboo flowsheet Marylou Lay PT [facility] Start: 10-21-2024 End: 10-21-2024 Bamboo flowsheet Marylou Lay PT [facility] Start: 10-21-2024 End: 10-22-2024 ambulatory Marylou Lay PT [facility] Comment on above: Piriformis syndrome of left side (Primary Dx) Start: 10-13-2024 End: 10-13-2024 Office outpatient visit 25 minutes Sterling Ford Work Phone: [facility] Start: 10-13-2024 ambulatory Sterling Jensentatiana [facility] Start: 10-08-2024 End: 10-08-2024 Office outpatient visit 15 minutes Magalie LESTER Work Phone: [facility] Comment on above: Lumbosacral spondylo sis without myelopathy (Primary Dx) Start: 10-08-2024 End: 10-08-2024 [address] [facility] Start: 09-25-2024 End: 09-25-2024 ambulatory REYMUNDO GIRON [facility] Start: 09-21-2024 End: 10-02-2024 Telephone encounter Alfonso Turcios PT Work Phone: [facility] Comment on above: re: PT Eval today; F U; PT Eval rs (10/21/24 w/ Alin Lay, PT.) Start: 09-17-2024 End: 09-17-2024 Office outpatient visit 25 minutes Magalie Green PA Work Phone: [facility] Comment on above: Disorder of sacrum ( Primary Dx) Start: 09-17-2024 End: 09-17-2024 amb[address] [facility] Start: 09-09-2024 End: 09-09-2024 Bamboo flowsheet Kala Lloyd MD Work Phone: [facility] Start: 09-09-2024 End: 09-09-2024 Bamboo flowsheet Kala Lloyd MD Work Phone: [facility] Start: 09-09-2024 End: 09-10-2024 Telephone encounter Magalie LESTER Work Phone: [facility] Start: 09-09-2024 End: 09-09-2024 Office outpatient visit 15 minutes Kala Lloyd MD Work Phone: [facility] Comment on above: Piriformis syndrome of left side (Primary Dx) Start: 09-09-2024 End: 09-09-2024 ambulatory KALA LLOYD Not Available Start: 09-03-2024 End: 09-03-2024 Office outpatient visit 15 minutes Eliazar RASHIDM Work Phone: [facility] Comment on above: Metatarsalgia, left foot (Primary Dx); Diabetes 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 polyneuropathy, with long-term current use of insulin (HCC); Pain due to onychomycosis of toenails of both feet Start: 09-03-2024 End: 09-03-2024 ambulatory ELIAZAR PIRES Not Available Start: 09-03-2024 End: 09-03-2024 Bamboo flowsheet Eliazar Pires DPM Work Phone: [facility] Start: 09-03-2024 End: 09-03-2024 Bamboo flowsheet Eliazar Pires DPM Work Phone: [facility] Start: 08-28-2024 End: 08-28-2024 Office outpatient visit 25 minutes Laverne Porter DO Work Phone: [facility] [phone] Comment on above: Type 2 diabetes rj itus with peripheral neuropathy (HCC) (Primary Dx); Moderate nonproliferative diabetic retinopathy of both eyes with macular edema associated with type 2 diabetes mellitus (HCC); Type 2 diabetes mellitus with stage 3a chronic kidney disease, with long-term current use of insulin (HCC); Type 2 diabetes mellitus with hyperglycemia, with long-term current use of insulin (HCC); Class 2 severe obesity due to excess calories with serious comorbidity and body mass index (BMI) of 35.0 to 35.9 in adult ([facility]-H[facility]) Start: 08-28-2024 End: 08-28-2024 ambulatory LAVERNE PORTER Not Available Start: 08-27-2024 End: 08-27-2024 Office outpatient visit 25 minutes Magalie LESTER Work Phone: [facility] Comment on above: Disorder of sacrum ( Primary Dx) Start: 08-27-2024 End: 08-27-2024 ambulatory MAGALIE GREEN [facility] Start: 08-06-2024 End: 08-06-2024 Bamboo flowsheet Lindy Valentino [facility] Work Phone: [facility] Start: 08-06-2024 End: 08-06-2024 Bamboo flowsheet Lindy Valentino [facility] Work Phone: [facility] Start: 08-06-2024 End: 08-06-2024 Clinical Support Lindy Valentino [facility] Work Phone: [facility] Comment on above: Bipolar 1 disorder ( CMS/HCC) Start: 07-31-2024 End: 07-31-2024 ambulatory REYMUNDO GIRON [facility] Start: 07-30-2024 End: 07-30-2024 Office outpatient visit 25 minutes Kala Lloyd MD Work Phone: [facility] Comment on above: TEODORA on CPAP (Primary Dx); Type 2 diabetes mellitus with stage 3a chronic kidney disease, with long-term current use of insulin (HCC) (CMS/[facility]); Seasonal allergic rhinitis due to pollen; Primary hypertension ([facility]); Hyperlipidemia, unspecified hyperlipidemia type ([facility]/HCC); Type 2 diabetes mellitus with peripheral neuropathy (CMS/HCC); Mixed hyperlipidemia ([facility]/HCC); Acute bronchitis, unspecified organism; Gastroesophageal reflux disease without esophagitis Start: 07-30-2024 End: 07-30-2024 ambulatory KALA LLOYD Not Available Start: 07-21-2024 End: 07-21-2024 Clinical Support Lindy Valentino [facility] Work Phone: [facility] Comment on above: Bipolar 1 disorder ( CMS/HCC) Appointment Start: 07-09-2024 End: 07-16-2024 Clinisync Result Encounter Generic External Data Provider [facility] External Department Unsolicited Start: 07-09-2024 End: 07-16-2024 Clinisync Result Encounter Generic External Data Provider [facility] External Department Unsolicited Start: 07-09-2024 End: 07-09-2024 Office outpatient visit 25 minutes Magalie LESTER Work Phone: [facility] Comment on above: Spinal stenosis of l umbar region with neurogenic claudication (Primary Dx) Start: 07-09-2024 End: 07-09-2024 ambulatory MAGALIE GREEN [facility] Start: 07-08-2024 End: 07-08-2024 Clinisync Result Encounter Generic External Data Provider [facility] External Department Unsolicited Start: 07-08-2024 End: 07-08-2024 Clinisync Result Encounter Generic External Data Provider [facility] External Department Unsolicited Start: 06-29-2024 End: 06-29-2024 Bamboo flowsheet Danii Manley MD Work Phone: [facility] Start: 06-29-2024 End: 06-29-2024 Bamboo flowsheet Danii Manley MD Work Phone: [facility] Start: 06-29-2024 End: 06-29-2024 Office outpatient visit 40 minutes Danii Manley MD Work Phone: [facility] Comment on above: Hypercalcemia (Prima ry Dx); Vitamin D deficiency; Hypomagnesemia; Abnormal kidney function; Adrenal nodule ([facility]/HCC) Start: 06-29-2024 End: 06-29-2024 ambulatory DANII MANLEY Not Available Start: 06-25-2024 End: 06-25-2024 Office outpatient visit 15 minutes Eliazar Pires DPM Work Phone: [facility] Comment on above: Metatarsalgia, left foot (Primary Dx); Diabetes 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 polyneuropathy, with long-term current use of insulin ([facility]); Pain due to onychomycosis of toenails of both feet Start: 06-25-2024 End: 06-25-2024 ambulatory ELIAZAR PIRES Not Available Start: 06-23-2024 End: 06-23-2024 Office outpatient visit 25 minutes Sterling Ford Work Phone: [facility] Start: 06-23-2024 ambulatory Sterling Ford [facility] Start: 06-18-2024 End: 06-18-2024 ambulatory Kaylie Chavez APRN Work Phone: [facility] Work Phone: Start: 06-18-2024 End: 06-18-2024 Patient encounter procedure Kaylie Chavez APRN Work Phone: [facility] Work Phone: Start: 06-10-2024 End: 06-10-2024 Clinisync Result Encounter Generic External Data Provider [facility] External Department Unsolicited Start: 06-10-2024 End: 06-10-2024 Clinisync Result Encounter Generic External Data Provider [facility] External Department Unsolicited Start: 06-10-2024 Non-patient / Non-visit Kaylie Chavez APRN Work Phone: [facility] Work Phone: Start: 06-09-2024 End: 06-09-2024 Refill Danii Manley MD Work Phone: [facility] Comment on above: Vitamin D deficiency Start: 05-29-2024 End: 05-29-2024 ambulatory KALA LLOYD Not Available Start: 05-21-2024 End: 05-21-2024 Bamboo flowsheet Lindy Valentino [facility] Work Phone: [facility] Start: 05-21-2024 End: 05-21-2024 Bamboo flowsheet Lindy Valentino [facility] Work Phone: [facility] Start: 05-21-2024 End: 05-21-2024 Clinical Support Lindy Valentino [facility] Work Phone: [facility] Comment on above: Bipolar 1 disorder ( CMS/HCC) Start: 05-19-2024 End: 05-19-2024 Office outpatient visit 25 minutes Laverne Porter DO Work Phone: [facility] [phone] Comment on above: Type 2 diabetes [...] encounter Laverne Porter DO Work Phone: [facility] 230 Comment on above: Appointment Confirma tion Start: 05-14-2024 End: 05-14-2024 Office outpatient visit 15 minutes Magalie LESTER Work Phone: [facility] Comment on above: Lumbosacral spondylo sis without myelopathy (Primary Dx) Start: 05-14-2024 End: 05-14-2024 ambulatory MAGALIE GREEN [facility] Start: 05-12-2024 Registered Recurring Kaylie carrillo APRN Work Phone: [facility] Start: 05-10-2024 End: 05-10-2024 Orders Only Kala Lloyd MD Work Phone: [facility] Comment on above: Constipation, unspec ified constipation type (Primary Dx) Start: 05-07-2024 End: 05-07-2024 Patient encounter status Kala Lloyd MD Work Phone: [facility] Work Phone: Start: 05-07-2024 End: 05-07-2024 Periodic preventive med est patient 40-64yrs Kala Lloyd MD Work Phone: [facility] Comment on above: Routine general medi julio [...] associated with type 2 diabetes mellitus (CMS/HCC); Generalized abdominal pain; Encounter for screening mammogram [...] [facility] Start: 05-05-2024 End: 05-05-2024 Bamboo flowsheet Kala Lloyd MD Work Phone: [facility] Start: 05-04-2024 End: 05-04-2024 Telephone encounter Kala Lloyd MD Work Phone: [facility] Start: 04-30-2024 End: 04-30-2024 Clinical Support Lindy Valentino [facility] Work Phone: [facility] Comment on above: Bipolar 1 disorder ( CMS/HCC) Start: 04-30-2024 End: 04-30-2024 Bamboo flowsheet Lindy Valentino [facility] Work Phone: [facility] Start: 04-30-2024 End: 04-30-2024 Bamboo flowsheet Lindy Valentino LPCC Work Phone: [facility] Start: 04-24-2024 End: 04-24-2024 ambulatory REYMUNDO GIRON [facility] Start: 04-09-2024 End: 04-09-2024 Office outpatient visit 15 minutes Eliazar Pries DPM Work Phone: [facility] Comment on above: Metatarsalgia, left foot (Primary Dx); Diabetes 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 polyneuropathy, with long-term current use of insulin (CMS/[facility]); Pain due to onychomycosis of toenails of both feet Start: 04-09-2024 End: 04-09-2024 ambulatory ELIAZAR PIRES Not Available Start: 04-09-2024 End: 04-09-2024 Bamboo flowsheet Eliazar Pires DPM Work Phone: [facility] Start: 04-09-2024 End: 04-09-2024 Bamboo flowsheet Eliazar Pires DPM Work Phone: [facility] Start: 04-08-2024 End: 04-08-2024 Bamboo flowsheet Lindy Valentino LP[facility] Work Phone: [facility] Start: 04-08-2024 End: 04-08-2024 Bamboo flowsheet Lindy Valentino LPCC Work Phone: [facility] Start: 04-08-2024 End: 04-08-2024 Clinical Support Lindy Valentino LP[facility] Work Phone: [facility] Comment on above: Bipolar 1 disorder ( CMS/HCC) Start: 04-02-2024 End: 04-02-2024 Office outpatient visit 25 minutes Magalie LESTER Work Phone: [facility] Comment on above: Spinal stenosis of l umbar region with neurogenic claudication (Primary Dx) Start: 04-02-2024 End: 04-02-2024 ambulatory MAGALIE GREEN [facility] Start: 03-19-2024 End: 03-19-2024 Bamboo flowsheet Lindy Valentino [facility] Work Phone: [facility] Start: 03-19-2024 End: 03-19-2024 Bamboo flowsheet Lindy Valentino [facility] Work Phone: [facility] Start: 03-19-2024 End: 03-19-2024 Clinical Support Lindy Valentino [facility] Work Phone: [facility] Comment on above: Bipolar 1 disorder ( [facility]) Start: 02-28-2024 End: 02-28-2024 ambulatory REYMUNDO GIRON [facility] Start: 02-25-2024 End: 02-25-2024 Office outpatient visit 15 minutes Sterling Ford Work Phone: [facility] Start: 02-25-2024 ambulatory Sterling Ford [facility] Start: 02-24-2024 End: 04-16-2024 Telephone encounter Kala Lloyd MD Work Phone: [facility] Start: 01-31-2024 End: 01-31-2024 Bamboo flowsheet Kala Lloyd MD Work Phone: [facility] Start: 01-31-2024 End: 01-31-2024 Bamboo flowsheet Kala Lloyd MD Work Phone: [facility] Start: 01-31-2024 End: 01-31-2024 Office outpatient visit 25 minutes Kala Lloyd MD Work Phone: [facility] Comment on above: Acute bronchitis, un specified organism (Primary Dx); Chronic diarrhea Start: 01-31-2024 End: 01-31-2024 ambulatory KALA LLOYD Not Available Start: 01-23-2024 End: 01-23-2024 Bamboo flowsheet Lindy Naik Chicho [facility] Work Phone: [facility] Start: 01-23-2024 End: 01-23-2024 Bamboo flowsheet Lindy Gumaro Valentino [facility] Work Phone: [facility] Start: 01-23-2024 End: 01-23-2024 Clinical Support Lindy Valentino [facility] Work Phone: [facility] Comment on above: Bipolar 1 disorder ( CMS/HCC) Start: 01-21-2024 End: 01-21-2024 Office outpatient visit 25 minutes Magalie Green PA Work Phone: [facility] Comment on above: Disorder of sacrum ( Primary Dx) Start: 01-21-2024 End: 01-21-2024 ambulatory MAAGLIEBUD GREEN [facility] Start: 01-20-2024 End: 01-20-2024 Office outpatient visit 25 minutes Laverne Porter DO Work Phone: [facility] 230 Comment on above: Mild [...] DPM Work Phone: [facility] Start: 01-16-2024 End: 01-16-2024 Bamboo flowsheet Eliazar Pires DPM Work Phone: [facility] Start: 12-30-2023 End: 12-30-2023 Office outpatient visit 25 minutes Danii Manley MD Work Phone: [facility] Comment on above: Hypercalcemia (Prima ry Dx); Vitamin D deficiency; Benign neoplasm of parathyroid gland; Hypomagnesemia; Abnormal kidney function Start: 12-30-2023 End: 12-30-2023 ambulatory DANII MANLEY Not Available Start: 12-27-2023 End: 12-27-2023 ambulatory [facility] Start: 12-27-2023 End: 12-27-2023 ambulatory [facility] Start: 2023 End: 2023 Clinisync Result Encounter Generic External Data Provider [facility] External Department Unsolicited Start: 2023 End: 2023 Clinisync Result Encounter Generic External Data Provider [facility] External Department Unsolicited Start: 12-23-2023 End: 12-23-2023 Bamboo flowsheet Lindy Valentino [facility] Work Phone: [facility] Start: 12-23-2023 End: 12-23-2023 Bamboo flowsheet Lindy Valentino [facility] Work Phone: [facility] Start: 12-23-2023 End: 12-23-2023 Clinical Support Lindy Valentino [facility] Work Phone: [facility] Comment on above: Bipolar 1 disorder ( CMS/HCC) Start: 12-11-2023 End: 12-11-2023 ambulatory LIVE N [facility] Start: 12-11-2023 End: 12-11-2023 Office outpatient visit 25 minutes Live Kwon PA-C Work Phone: [facility] Comment on above: Lumbar spondylosis ( Primary Dx); Disorder of sacrum; Spinal stenosis of lumbar region with neurogenic claudication Start: 12-06-2023 End: 12-06-2023 Refill Jasmin Travis FIELD REIMBURSEMENT MANAGER Work Phone: [facility] Comment on above: Seasonal allergic rh initis due to pollen Start: 12-02-2023 End: 12-02-2023 Clinical Support Lindy Valentino [facility] Work Phone: [facility] Comment on above: Bipolar 1 disorder ( [facility]) Start: 11-23-2023 End: 11-23-2023 ambulatory [facility] Start: 11-22-2023 End: 11-22-2023 ambulatory [facility] Start: 11-22-2023 End: 11-22-2023 ambulatory [facility] Start: 11-21-2023 End: 11-21-2023 ambulatory TAMMIE Chavez Work Phone: [facility] Work Phone: Start: 11-21-2023 End: 11-21-2023 Patient encounter procedure TAMMIE Chavez Work Phone: [facility] Work Phone: Start: 11-13-2023 End: 11-13-2023 Clinisync Result Encounter Generic External Data Provider [facility] External Department Unsolicited Start: 11-13-2023 End: 11-13-2023 Clinisync Result Encounter Generic External Data Provider [facility] External Department Unsolicited Start: 11-13-2023 Non-patient / Non-visit TAMMIE Chavez Work Phone: [facility] Work Phone: Start: 11-07-2023 End: 11-07-2023 Office outpatient visit 10 minutes Eliazar Pires DPM Work Phone: [facility] Comment on above: Metatarsalgia, left foot (Primary Dx); Diabetes 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 polyneuropathy, with long-term current use of insulin ([facility]); Onychomycosis; Toe pain, bilateral Start: 11-07-2023 End: 11-07-2023 Bamboo flowsheet Eliazar Pires DPM Work Phone: [facility] Start: 11-07-2023 End: 11-07-2023 Bamboo flowsheet Eliazar Pires DPM Work Phone: [facility] Start: 11-04-2023 End: 11-04-2023 Bamboo flowsheet Lindy Valentino [facility] Work Phone: [facility] Start: 11-04-2023 End: 11-04-2023 Bamboo flowsheet Lindy Valentino [facility] Work Phone: [facility] Start: 11-04-2023 End: 11-04-2023 Clinical Support Lindy Valentino [facility] Work Phone: [facility] Comment on above: Bipolar 1 disorder ( CMS/HCC) Start: 10-29-2023 Registered Recurring TAMMIE Chavez Work Phone: [facility]- Credible Start: 10-23-2023 End: 10-23-2023 Office outpatient visit 25 minutes Live Kwon PA-C Work Phone: [facility] Comment on above: Lumbar spondylosis ( Primary Dx); Trochanteric bursitis of left hip; Disorder of sacrum Start: 10-01-2023 End: 10-01-2023 ambulatory TAMMIE Chavez Work Phone: [facility] Work Phone: Start: 10-01-2023 End: 10-01-2023 Patient encounter procedure TAMMIE Chavez Work Phone: [facility] Neurosurgery Work Phone: Start: 09-30-2023 End: 09-30-2023 Patient encounter procedure TAMMIE Chavez Work Phone: [facility]-XRay [facility] [place] Work Phone: Start: 09-30-2023 End: 09-30-2023 ambulatory COILED COIL INSPECTOR Kaylie Chavez Work Phone: [facility] Work Phone: Start: 09-24-2023 Registered Recurring TAMMIE Chavez Work Phone: [facility] Start: 06-24-2023 End: 07-11-2023 Telephone encounter Louise Hale RN [facility] Start: 06-21-2023 End: 07-03-2023 Telephone encounter Sandy Ferreira RN [facility] Comment on above: Back pain Start: 06-12-2023 End: 06-12-2023 Office outpatient visit 25 minutes Live Kwon PA-C Work Phone: [facility] Pain Management [facility] Comment on above: Lumbar spondylosis ( Primary Dx) Start: 04-26-2023 Telephone encounter Gabriella Wong RN [facility] Comment on above: Surgical Or Dental C learance Start: 04-25-2023 End: 04-25-2023 ambulatory [facility] Work Phone: Start: 04-25-2023 End: 04-25-2023 Patient encounter procedure [facility] Nephrology [place] Work Phone: Start: 04-16-2023 Registered Recurring TAMMIE Chavez Work Phone: [facility] Start: 04-15-2023 Chart abstracting Lindy Valentino [facility] Work Phone: [facility] Start: 04-11-2023 End: 04-11-2023 Office outpatient visit 15 minutes Eliazar Pires DPAvtar Work Phone: [facility] Comment on above: Metatarsalgia, left foot (Primary Dx); Diabetes 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 polyneuropathy, with long-term current use of insulin ([facility]); Onychomycosis; Toe pain, right; Toe pain, left Start: 04-04-2023 End: 04-04-2023 Office outpatient visit 15 minutes May El Rashedy Work Phone: [facility] Start: 03-28-2023 Telephone encounter Don Taylor RN [facility] Comment on above: Direct LDL Start: 03-26-2023 Telephone encounter Louise Hale RN [facility] Start: 03-15-2023 End: 03-15-2023 Office outpatient visit 25 minutes Bird Dykes MD Work Phone: [facility] Comment on above: Chest pain, unspecif ied type (Primary Dx); Primary hypertension; Familial hypercholesterolemia; Abnormal EKG Start: 03-14-2023 Telephone encounter Ramila noe CMA [facility] Start: 10-18-2022 End: 10-18-2022 ambulatory Nir Danis Other [employer] Other Start: 10-18-2022 Office outpatient vi sit 25 minutes Nir Danis [facility] Start: 09-27-2022 End: 09-27-2022 Office outpatient visit 15 minutes May El Rashedy Work Phone: [facility] Start: 08-09-2022 End: 08-09-2022 ambulatory MD Kala Lloyd Work Phone: [facility] Work Phone: Start: 08-09-2022 End: 08-09-2022 Patient encounter procedure MD Kala Lloyd Work Phone: [facility]-Digestive Health Work Phone: Start: 07-25-2022 End: 07-25-2022 Patient encounter procedure MD Kala Lloyd Work Phone: [facility]-CT Scan [place] Work Phone: Start: 07-23-2022 End: 07-23-2022 ambulatory MD Kala Lloyd Work Phone: [facility] Work Phone: Start: 07-23-2022 End: 07-23-2022 Patient encounter procedure MD Kala Lloyd Work Phone: [facility]-Nuc Med [facility] [place] Work Phone: Start: 07-18-2022 Telephone encounter Nir Danis [facility] Start: 07-18-2022 End: 07-19-2022 ambulatory NIR DANIS [facility] [employer] Other Start: 07-12-2022 End: 07-12-2022 Admission to same day surgery center MD Kala Lloyd Work Phone: [facility]-Digestive Health Work Phone: Start: 07-12-2022 End: 07-12-2022 ambulatory MD Kala Lloyd Work Phone: [facility] Work Phone: Start: 07-10-2022 Registered Recurring MD Kala tam Work Phone: [facility] Start: 07-02-2022 End: 07-03-2022 ambulatory NIR DANIS Facility:[facility] Start: 06-07-2022 End: 06-07-2022 Office outpatient new 30 minutes May El Rashedy Work Phone: [facility] Start: 06-04-2022 End: 06-04-2022 ambulatory Imad Asaad Other [place] [employer] Other Start: 06-04-2022 Office outpatient ne w 45 minutes Imad Asaad [facility] Start: 05-31-2022 End: 05-31-2022 Encounter identifier Dona Puckett Work Phone: [facility] Start: 05-31-2022 End: 05-31-2022 Dona Puckett Work Phone: [facility] Start: 05-18-2022 End: 05-18-2022 ambulatory MD Kala Lloyd Work Phone: [facility] Work Phone: Start: 05-18-2022 End: 05-18-2022 Registered Recurring MD Kala Lloyd Work Phone: [facility]-Cancer Center Work Phone: Start: 04-12-2022 End: 04-13-2022 ambulatory NIR DANIS [facility] [employer] Other Start: 04-12-2022 Office outpatient vi sit 25 minutes Nir Danis [facility] [place] Start: 04-05-2022 End: 04-06-2022 ambulatory NIR DANIS Facility: Start: 02-07-2022 End: 02-08-2022 ambulatory Eliazar Pires Facility[facility] Start: 02-07-2022 End: 02-07-2022 Lab Drop off Eliazar Pires [facility] Start: 02-05-2022 End: 02-06-2022 ambulatory Eliazar Pires Facility:[facility] Start: 02-05-2022 End: 02-05-2022 Patient encounter procedure Eliazar Pires [facility] Start: 01-08-2022 End: 01-09-2022 ambulatory Eliazar Pires Facility:[facility] Start: 01-08-2022 End: 01-08-2022 Patient encounter procedure Eliazar Pires [facility] Start: 09-14-2021 End: 09-14-2021 ambulatory Nir Danis Other [facility] [employer] Other Start: 09-14-2021 Office outpatient vi sit 25 minutes Nir Danis [facility] Start: 09-12-2021 End: 09-13-2021 ambulatory NIR DANIS Facility:[facility] Start: 08-30-2021 End: 08-31-[address] DOCTOR HURT Facility:[facility] Procedures Date Procedure Procedure Detail Performing Clinician Start: 12-01-2024 Hemoglobin glycosylated a1c Laverne Nova Ayan leslie DO Work Phone: Start: 11-19-2024 Dstrj loclzd lesion retina 1/> sess pc Sterling Ford Start: 11-05-2024 Dstrj loclzd lesion retina 1/> sess pc Sterling Ford Start: 10-13-2024 End: 10-13-2024 Fluorescein angrph w/multiframe i&r uni/bi Sterling Ford MD Start: 07-30-2024 Hemoglobin glycosylated a1c Kala Lloyd MD Work Phone: Start: 07-09-2024 METANEPHRINES, FRAC., PL. FREE Generic E xternal Data Provider Start: 07-08-2024 ALL BASIC METABOLIC PANEL Generic [employer] St[employer] al Data Provider Start: 06-23-2024 End: 06-23-2024 Computerized ophthalmic imaging retina Sterling Ford MD Start: 06-10-2024 [facility] CBC WITH PLATELET NO DIFFERENTIAL Generic External Data Provider Start: 05-29-2024 Mammography Danii Manley MD Work Phone: Start: 05-07-2024 Complete blood count with white cell differential, automated Kala Lloyd MD Work Phone: Start: 05-07-2024 Hemoglobin glycosylated a1c Kala Lloyd MD Work Phone: Start: 05-05-2024 Complete blood count with white cell differential, automated Kala Lloyd MD Work Phone: Start: 05-05-2024 Comprehensive metabolic panel Kala brownlee MD Work Phone: Start: 02-25-2024 End: 02-25-2024 Computerized ophthalmic imaging retina Sterling Ford MD Start: 02-25-2024 Fundus Photos No Charge Sterling John i Start: 02-25-2024 End: 02-25-2024 Fundus Photos No Charge Bilateral Sterling Ford MD Start: 01-20-2024 Hemoglobin glycosylated a1c Laverne leslie DO Work Phone: Start: 2023 TB DEPAKENE/ VALPROIC ACID Generic Exte rnal Data Provider Start: 11-13-2023 [facility] CBC WITH PLATELET NO DIFFERENTIAL Generic External Data Provider Start: 09-30-2023 X-ray of lumbar spine, six views including bending views TAMMIE Chavez Work Phone: Start: 04-22-2023 Mammography Lindy Washburnro [facility] Work Phone: Start: 04-04-2023 End: 04-04-2023 Computerized ophthalmic imaging retina Sterling Ford MD Start: 03-15-2023 Ecg routine ecg w/least 12 lds w/i&r Bird Dykes MD Work Phone: Start: 09-27-2022 End: 09-27-2022 Computerized ophthalmic imaging retina Sterling Ford MD Start: 09-05-2022 Colonoscopy Eliazar Pires DPM Work [...] Esophagogastroduodenoscopy MD Kala Lloyd Work Phone: Start: 06-07-2022 End: 06-07-2022 Computerized ophthalmic imaging retina Sterling Ford MD Start: 06-07-2022 End: 06-07-2022 Fundus Photos No Charge Bilateral Sterling Ford MD Start: 03-09-2022 Mammography Eliazar Pires DP Work Phone: Plan of Treatment Date Care Activity Detail Author Start: 09-05-2032 Screening for malignant neoplasm of colon [facility] Start: 11-17-2025 Tobacco Screening Tobacco Screening [facility] Start: 10-08-2025 Tobacco Screening Tobacco Screening [facility] Start: 09-17-2025 Tobacco Screening Tobacco Screening [facility] Start: 08-27-2025 Adult BMI Screening Adult BMI Screening [facility] Start: 08-27-2025 Tobacco Screening Tobacco Screening [facility] Start: 07-30-2025 Statin Use: Diabetic Statin Use: Diabetic [facility] Start: 07-09-2025 Tobacco Screening Tobacco Screening [facility] Start: 06-23-2025 Glaucoma screening Diabetes: Retinopathy Screening [facility] Start: 05-29-2025 Screening for malignant neoplasm of breast Mammogram [facility] Start: 05-14-2025 Tobacco Screening Tobacco Screening [facility] Start: 04-02-2025 Tobacco Screening Tobacco Screening [facility] Start: 03-02-2025 Hemoglobin A1c measurement Diabetes: Hemoglobin A1C [facility] Start: 03-02-2025 End: 03-02-2025 Patient encounter procedure 03/02/2025 1:00 PM EST Office Visit [facility] [address] [place] [phone] Laverne Porter DO [address] [place] [address] [facility] [address] Start: 02-24-2025 Glaucoma screening Diabetes: Retinopathy Screening [facility] Start: 02-02-2025 End: 02-02-2025 Patient encounter procedure [facility] Start: 01-21-2025 End: 01-21-2025 Patient encounter procedure 01/21/2025 3:20 PM EST Office Visit [facility] [address] [place] [address] Eliazar Pires, DPM [address] [facility] [place] [address] [place] [address] [facility] Start: 01-20-2025 Tobacco Screening Tobacco Screening [facility] Start: 12-29-2024 Urine screening for protein Diabetes: Urine Protein Screening [facility] Start: 12-28-2024 End: 12-28-2024 Patient encounter procedure [facility] Start: 12-22-2024 End: 12-22-2024 ambulatory 12/22/2024 2:00 PM EDT Treatment [facility] [address] [place] [address] Claire Palmer PTA [facility] Start: 12-16-2024 End: 12-16-2024 Clinical Support 12/16/2024 1:30 PM EDT Clinical Support [facility] [address] [place] [address] Lindy Valentino, [facility] [address] [place] [address] [facility] [place] [facility] Start: 12-10-2024 Adult BMI Screening Adult BMI Screening [facility] Start: 12-10-2024 Tobacco Screening Tobacco Screening [facility] Start: 12-09-2024 End: 12-09-2024 ambulatory [facility] Comment on above: Piriformis syndrome of left side (Primar y Dx) Start: 12-08-2024 End: 12-08-2024 ambulatory [facility] Start: 12-03-2024 End: 12-03-2024 ambulatory 12/03/2024 2:30 PM EDT Treatment [facility] [address] [place] [address] Claire Palmer PTA [facility] Start: 12-01-2024 End: 12-01-2024 Patient encounter procedure 12/01/2024 2:30 PM EDT Office Visit [facility] [place] [facility] [address] [place] [address] Laverne Porter DO [address] [place] [address] [place] [facility] [address] Start: 12-01-2024 End: 12-01-2024 ambulatory 12/01/2024 12:00 PM EDT Treatment [facility] [address] [place] [address] Sumi Cottrell PTA [facility] Start: 11-27-2024 End: 11-27-2024 Patient encounter procedure [facility] [address] Start: 11-25-2024 End: 11-25-2024 ambulatory 11/25/2024 2:00 PM EDT Treatment [facility] [address] [place] [address] Sumi Cottrell PTA [facility] Start: 11-24-2024 End: 11-24-2024 Clinical Support 11/24/2024 1:00 PM EDT Clinical Support [facility] [address] [place] [address] Lindy Valentino, [facility] [address] [place] [address] [facility] Start: 11-17-2024 End: 11-17-2024 Patient encounter procedure 11/17/2024 2:30 PM EDT Office Visit [facility] [address] [place] [address] Magalie Green, PA [address] [place], [place] [phone] [facility] Start: 11-16-2024 End: 11-16-2024 ambulatory 11/16/2024 1:30 PM EDT Treatment [facility] [address] [facility] [address] [place] [address] Sumi Cottrell PTA [facility] Start: 11-12-2024 End: 11-12-2024 Patient encounter procedure [facility] Comment on above: Diabetes mellitus due to underlying cond ition with diabetic polyneuropathy, with long-term current use of insulin (HCC) (Primary Dx); Pain due to onychomycosis of toenails of both feet; Metatarsalgia, left foot Start: 11-09-2024 Influenza vaccination [facility] Start: 11-06-2024 End: 11-06-2024 ambulatory 11/06/2024 1:00 PM EDT Treatment [facility] [address] [facility] [address] [place] [address] Sumi Cottrell PTA [facility] Start: 11-05-2024 Radha Jones 3-4(3) Weeks PRP OS [facility] Work Phone: Start: 11-02-2024 End: 11-02-2024 ambulatory [facility] Comment on above: Arrived Start: 10-30-2024 Hemoglobin A1c measurement Diabetes: Hemoglobin A1C [facility] Start: 10-28-2024 End: 10-28-2024 ambulatory [facility] Comment on above: Arrived Start: 10-27-2024 Glaucoma screening Diabetes: Retinopathy Screening [facility] Start: 10-22-2024 Tobacco Screening Tobacco Screening [facility] Start: 10-21-2024 End: 10-21-2024 ambulatory [facility] Comment on above: Piriformis syndrome of left side Start: 10-13-2024 Smoking cessation education Tobacco cessation counseling [facility] Start: 10-08-2024 End: 10-08-2024 Patient encounter procedure 10/08/2024 2:00 PM EDT Office Visit [facility] [address] [place] [phone] Magalie Green PA [address] [facility] [place] [phone] [facility] Start: 09-25-2024 End: 09-25-2024 Admission to same day surgery center [facility] Comment on above: INJECTION BLOCK SACROILIAC JOINT [06716 (CPT )] Start: 09-25-2024 End: 09-25-2024 Inject si joint arthrgrphy&/anes/stero id w/guanakito INJECTION BLOCK SACROILIAC JOINT Disorder of sacrum 09/25/2024 2:30 PM EDT [facility] Start: 09-25-2024 Subsequent hospital visit by physician 09/25/2024 2:30 PM EDT Hospital Encounter [facility] [address] [facility] [place] [phone] Reymundo Giron MD [address] [facility] [place] [phone] [facility] Start: 09-22-2024 Radha Jones 3mo DFE OCT FA OD [facility] Work Phone: Start: 09-17-2024 End: 09-17-2024 Patient encounter procedure 09/17/2024 2:30 PM EDT Office Visit [facility] [address] [place] [phone] Magalie Green PA [address] [facility] [place] [phone] [facility] Start: 09-09-2024 End: 09-09-2024 Patient encounter procedure 09/09/2024 1:20 PM EDT Office Visit [facility] [address] [place] [phone] Kala Lloyd MD [address] [place], [place] [phone] Arrived [facility] Comment on above: Arrived Start: 09-07-2024 Influenza vaccination Influenza Vaccine (#1) [facility] Comment on above: Postponed from 11/10/2023 (Insurance / F inancial) Start: 09-03-2024 End: 09-03-2024 Patient encounter procedure [facility] Comment on above: Diabetes mellitus due to underlying cond ition with diabetic polyneuropathy, with long-term current use of insulin (HCC) (Primary Dx); Pain due to onychomycosis of toenails of both feet; Metatarsalgia, left foot Start: 09-01-2024 End: 09-01-2024 Clinical Support 09/01/2024 3:00 PM EDT Clinical Support [facility] [address] [place] [address] Lindy Valentino, [facility] [address] [place] [address] [facility] Start: 08-18-2024 End: 08-18-2024 Patient encounter procedure 08/18/2024 1:15 PM EDT Office Visit [facility] [address] [place] [address] Magalie Green PA [address] [place] [address] [facility] Start: 08-17-2024 End: 08-17-2024 Patient encounter procedure 08/17/2024 3:00 PM EDT Office Visit [facility] [address] [place] [phone] Laverne Porter, DO [address] [place] [address] [facility] [address] Start: 08-06-2024 End: 08-06-2024 Clinical Support [facility] Comment on above: Arrived Start: 08-04-2024 Hemoglobin A1c measurement Diabetes: Hemoglobin A1C [facility] Start: 07-31-2024 End: 07-31-2024 Admission to same day surgery center 07/31/2024 10:09 AM EDT - 07/31/2024 10:17 AM EDT Surgery [facility] [address] [place] [address] Reymundo Giron MD [address] [place] [address] INJECTION BLOCK EPIDURAL CAUDAL STEROID [facility] Comment on above: INJECTION BLOCK EPIDURAL CAUDAL STEROID Start: 07-31-2024 End: 07-31-2024 INJECTION BLOCK EPIDURAL CAUDAL STEROID INJECTION BLOCK EPIDURAL CAUDAL STEROID Spinal stenosis of lumbar region with neurogenic claudication 07/31/2024 10:09 AM EDT [facility] Start: 07-31-2024 Subsequent hospital visit by physician 07/31/2024 10:09 AM EDT Hospital Encounter [facility] [address] [place] [address] Reymundo Giron MD [address] [place] [address] [facility] Start: 07-30-2024 End: 07-30-2024 Patient encounter procedure 07/30/2024 2:00 PM EDT Office Visit [facility] [address] [place] [phone] Kala Lloyd MD [address] [place] [address] [facility] Start: 07-02-2024 End: 07-02-2024 Patient encounter procedure 07/02/2024 2:15 PM EDT Office Visit [facility] [address] [place] [phone] Magalie Green PA [address] [place] [address] [facility] Start: 06-29-2024 End: 06-29-2025 25-hydroxyvitamin D3 [Mass/volume] in Serum or Plasma Vitamin D 25 hydroxy Total Lab Routine Hypercalcemia Expected: 06/29/2024 (Approximate), Expires: 06/29/2025 [facility] Comment on above: Expected: 06/29/2024 (Approximate), Expi res: 06/29/2025 Start: 06-29-2024 End: 06-29-2025 ALDOSTERONE/PLASMA RENIN ACTIVITY RATIO, LC/MS/MS ALDOSTERONE/PLASMA RENIN ACTIVITY RATIO, LC/MS/MS Lab Routine Adrenal nodule (CMS/HCC) Expected: 06/29/2024 (Approximate), Expires: 06/29/2025 [facility] Comment on above: Expected: 06/29/2024 (Approximate), Expi res: 06/29/2025 Start: 06-29-2024 End: 06-29-2025 Basic metabolic 1998 panel - Serum or Plasma Basic metabolic panel Lab Routine Adrenal nodule (CMS/HCC) Expected: 06/29/2024 (Approximate), Expires: 06/29/2025 [facility] Comment on above: Expected: 06/29/2024 (Approximate), Expi res: 06/29/2025 Start: 06-29-2024 End: 06-29-2025 Cortisol AM Cortisol AM Lab Routine Adrenal nodule (CMS/HCC) Expected: 06/29/2024 (Approximate), Expires: 06/29/2025 [facility] Comment on above: Expected: 06/29/2024 (Approximate), Expi res: 06/29/2025 Start: 06-29-2024 End: 06-29-2025 Magnesium [Mass/volume] in Serum or Plasma Magnesium Lab Routine Hypercalcemia Expected: 06/29/2024 (Approximate), Expires: 06/29/2025 [facility] Work Phone: Comment on above: Expected: 06/29/2024 (Approximate), Expi res: 06/29/2025 Start: 06-29-2024 End: 06-29-2025 Metanephrines Plasma Metanephrines Plasma Lab Routine Adrenal nodule (CMS/HCC) Expected: 06/29/2024 (Approximate), Expires: 06/29/2025 [facility] Comment on above: Expected: 06/29/2024 (Approximate), Expi res: 06/29/2025 Start: 06-29-2024 End: 06-29-2025 Parathyrin.intact [Mass/volume] in Serum or Plasma PTH, intact Lab Routine Hypercalcemia Expected: 06/29/2024 (Approximate), Expires: 06/29/2025 [facility] Comment on above: Expected: 06/29/2024 (Approximate), Expi res: 06/29/2025 Start: 06-29-2024 End: 06-29-2025 Renal function panel Renal function panel Lab Routine Hypercalcemia Expected: 06/29/2024 (Approximate), Expires: 06/29/2025 [facility] Comment on above: Expected: 06/29/2024 (Approximate), Expi res: 06/29/2025 Start: 06-29-2024 End: 06-29-2024 Patient encounter procedure [facility] Comment on above: Arrived Start: 06-25-2024 End: 06-25-2024 Patient encounter procedure 06/25/2024 4:50 PM EDT Office Visit [facility] [address] [facility] [address] [place] [address] Eliazar Pires DPM [address] [facility] [address] [place] [address] [facility] Start: 06-23-2024 Counseling about tobacco use Tobacco cessation counseling [facility] Start: 06-20-2024 Adult BMI Screening Adult BMI Screening [facility] Start: 06-20-2024 Tobacco Screening Tobacco Screening [facility] [facility] Start: 06-11-2024 Adult BMI Screening Adult BMI Screening [facility] Start: 06-11-2024 Tobacco Screening Tobacco Screening [facility] Start: 06-10-2024 End: 06-10-2024 Clinical Support 06/10/2024 2:00 PM EDT Clinical Support [facility] [address] [place] [address] Lindy Valentino, [facility] [address] [place] [address] [facility] Start: 05-29-2024 End: 05-29-2024 Professional / ancillary services management [facility] Start: 05-22-2024 End: 05-22-2024 Professional / ancillary services management 05/22/2024 4:00 PM EDT Ancillary Procedure [facility] [address] [place] [phone] [facility] Start: 05-21-2024 End: 05-21-2024 Clinical Support [facility] Comment on above: Arrived Start: 05-19-2024 End: 05-19-2024 Patient encounter procedure 05/19/2024 3:30 PM EDT Office Visit [facility] [address] [place] [address] Laverne Porter, [address] [place] [address] [facility] Start: 05-16-2024 Tobacco Screening Tobacco Screening [facility] Start: 05-14-2024 End: 05-14-2024 Patient encounter procedure 05/14/2024 2:15 PM EST Office Visit [facility] [address] [place] [address] Magalie Green, PA [address], [address] [place], [place] [phone] [facility] Start: 05-07-2024 End: 05-07-2024 Patient encounter procedure [facility] Comment on above: Arrived Start: 05-07-2024 End: 05-07-2025 Bacteria identified in Urine by Culture Urine culture (clean catch) Microbiology Routine Generalized abdominal pain Expected: 05/07/2024 (Approximate), Expires: 05/07/2025 [facility] Comment on above: Expected: 05/07/2024 (Approximate), Expi res: 05/07/2025 Start: 05-07-2024 End: 07-05-2025 DBT Breast - bilateral screening Bilateral screening mammogram with tomosynthesis Imaging Routine Encounter for screening mammogram for malignant neoplasm of breast Expected: 05/07/2024, Expires: 07/05/2025 [facility] Comment on above: Expected: 05/07/2024, Expires: Start: 05-07-2024 End: 05-07-2025 Urinalysis complete panel - Urine Urinalysis with reflex microscopic (catheter) Lab Routine Generalized abdominal pain Expected: 05/07/2024 (Approximate), Expires: 05/07/2025 [facility] Work Phone: Comment on above: Expected: 05/07/2024 (Approximate), Expi res: 05/07/2025 Start: 05-05-2024 End: 05-05-2024 Patient encounter procedure 05/05/2024 2:40 PM EST Office Visit [facility] [address] [place] [address] Kala Lloyd MD [address] [place] [address] Arrived [facility] Comment on above: Arrived Start: 05-05-2024 End: 05-05-2025 CT Abdomen and Pelvis WO contrast CT abdomen pelvis wo IV contrast Imaging STAT Generalized abdominal pain Expected: 05/05/2024, Expires: 05/05/2025 [facility] Work Phone: Comment on above: Expected: 05/05/2024, Expires: Start: 04-30-2024 End: 04-30-2024 Clinical Support [facility] Comment on above: Bipolar 1 disorder ([facility]/HCC) Start: 04-24-2024 End: 04-24-2024 Admission to same day surgery center 04/24/2024 10:07 AM EST - 04/24/2024 10:14 AM EST Surgery [facility] [address] [place] [address] Reymundo Giron MD [address] [place], [place] [phone] INJECTION BLOCK EPIDURAL CAUDAL STEROID [93828 (CPT )] [facility] Comment on above: INJECTION BLOCK EPIDURAL CAUDAL STEROID [36824 (CPT )] Start: 04-24-2024 End: 04-24-2024 Njx dx/ther sbst intrlmnr lmbr/sac w/img gdn INJECTION BLOCK EPIDURAL CAUDAL STEROID Spinal stenosis of lumbar region with neurogenic claudication 04/24/2024 10:07 AM EST [facility] Start: 04-24-2024 Subsequent hospital visit by physician 04/24/2024 10:07 AM EST Hospital Encounter [facility] [address] [place] [address] Reymundo Giron MD [address] [place] [address] [facility] Start: 04-22-2024 Screening for malignant neoplasm of breast Mammogram [facility] Start: 04-21-2024 Hemoglobin A1c measurement Diabetes: Hemoglobin A1C [facility] Start: 04-20-2024 End: 04-20-2024 Patient encounter procedure 04/20/2024 1:15 PM EST Office Visit [facility] [address] [place] [phone] Laverne Porter, [address] [place] [address] [facility] Start: 04-15-2024 End: 04-15-2024 Patient encounter procedure 04/15/2024 1:45 PM EST Office Visit [facility] [address] [place] [address] Live Kwon, PADarrellC [address] [place], [place] [phone] [facility] Start: 04-09-2024 End: 04-09-2024 Patient encounter procedure [facility] Comment on above: Diabetes mellitus due to underlying cond ition with diabetic polyneuropathy, with long-term current use of insulin ([facility]) (Primary Dx); Pain due to onychomycosis of toenails of both feet; Metatarsalgia, left foot Start: 04-08-2024 End: 04-08-2024 Clinical Support [facility] Comment on above: Arrived Start: 04-02-2024 End: 04-02-2024 Patient encounter procedure 04/02/2024 1:00 PM EST Office Visit [facility] [address] [place] [address] Magalie Green, TAYLER [address] [place] [address] [facility] Start: 04-01-2024 Adult BMI Screening Adult BMI Screening [facility] Start: 04-01-2024 Tobacco Screening Tobacco Screening [facility] Start: 03-26-2024 End: 03-26-2024 Patient encounter procedure 03/26/2024 3:10 PM EST Office Visit [facility] [address] [facility] [address] [place] [phone] Eliazar Pires, SULEMA [address] [facility] [address] [address] [place] [address] [facility] Start: 03-19-2024 End: 03-19-2024 Clinical Support [facility] Comment on above: Arrived Start: 03-15-2024 Adult BMI Screening Adult BMI Screening [facility] Start: 03-15-2024 Tobacco Screening Tobacco Screening [facility] Start: 03-13-2024 End: 03-13-2024 Admission to same day surgery center 03/13/2024 10:00 AM EST - 03/13/2024 10:07 AM EST Surgery [facility] [address] [place] [address] Reymundo Giron MD [address] [facility] [phone] INJECTION BLOCK SACROILIAC JOINT [81581 (CPT )] [facility] Comment on above: INJECTION BLOCK SACROILIAC JOINT [31600 (CPT )] Start: 03-13-2024 End: 03-13-2024 Inject si joint arthrgrphy&/anes/stero id w/guanakito INJECTION BLOCK SACROILIAC JOINT Disorder of sacrum 03/13/2024 10:00 AM EST [facility] Start: 03-13-2024 Subsequent hospital visit by physician 03/13/2024 10:00 AM EST Hospital Encounter [facility] [address] [place] [address] Reymundo Giron MD [address] [facility] [place], [place] [phone] [facility] Start: 02-28-2024 Tobacco Screening Tobacco Screening [facility] Start: 02-25-2024 Smoking cessation education Tobacco cessation counseling [facility] Start: 01-31-2024 End: 01-31-2024 Patient encounter procedure [facility] Comment on above: Arrived Start: 01-23-2024 Adult BMI Screening Adult BMI Screening [facility] Start: 01-23-2024 End: 01-23-2024 Clinical Support 01/23/2024 2:00 PM EST Clinical Support [facility] [address] [place] [address] Lindy Valentino, [facility] [address] [place] [address] [facility] Start: 01-22-2024 Urine screening for protein Diabetes: Urine Protein Screening [facility] Start: 01-21-2024 Hemoglobin A1c measurement Diabetes: Hemoglobin A1C [facility] Start: 01-21-2024 End: 01-21-2024 Patient encounter procedure 01/21/2024 12:30 PM EST Office Visit [facility] [address] [place] [phone] Maglaie Green PA [address] [place] [address] [facility] Start: 01-20-2024 End: 01-20-2024 Patient encounter procedure [facility] 230 Comment on above: Type 2 diabetes mellitus with peripheral neuropathy (CMS/HCC) Start: 01-16-2024 End: 01-16-2024 Patient encounter procedure [facility] Comment on above: Metatarsalgia, left foot (Primary Dx); Diabetes 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 polyneuropathy, with long-term current use of insulin (CMS/HCC); Pain due to onychomycosis of toenails of both feet Start: 12-30-2023 End: 12-29-2024 25-hydroxyvitamin D3 [Mass/volume] in Serum or Plasma Vitamin D 25 hydroxy Total Lab Routine Vitamin D deficiency Expected: 12/30/2023 (Approximate), Expires: 12/29/2024 [facility] Work Phone: Comment on above: Expected: 12/30/2023 (Approximate), Expi res: 12/29/2024 Start: 12-30-2023 End: 12-29-2024 Magnesium [Mass/volume] in Serum or Plasma Magnesium Lab Routine Hypomagnesemia Expected: 12/30/2023 (Approximate), Expires: 12/29/2024 [facility] Comment on above: Expected: 12/30/2023 (Approximate), Expi res: 12/29/2024 Start: 12-30-2023 End: 12-29-2024 Parathyrin.intact [Mass/volume] in Serum or Plasma PTH, intact Lab Routine Hypercalcemia Expected: 12/30/2023 (Approximate), Expires: 12/29/2024 [facility] Comment on above: Expected: 12/30/2023 (Approximate), Expi res: 12/29/2024 Start: 12-30-2023 End: 12-29-2024 Renal function panel Renal function panel Lab Routine Hypercalcemia Expected: 12/30/2023 (Approximate), Expires: 12/29/2024 [facility] Comment on above: Expected: 12/30/2023 (Approximate), Expi res: 12/29/2024 Start: 12-30-2023 End: 12-30-2023 Patient encounter procedure 12/30/2023 1:40 PM EDT Office Visit [facility] [address] [place] [address] Danii Manley MD [address] [place] [address] [facility] Start: 12-27-2023 End: 12-27-2023 Admission to same day surgery center 12/27/2023 1:57 PM EDT - 12/27/2023 2:04 PM EDT Surgery [facility] [address] [place] [phone] Reymundo Giron MD [address] [place], [place] [phone] INJECTION SPINE TRANSFORAMINAL Left 4,5 NRoot [08489 (CPT )] [facility] Comment on above: INJECTION SPINE TRANSFORAMINAL Left 4,5 NRoot [98812 ([facility] )] Start: 12-27-2023 End: 12-27-2023 Njx anes&/strd w/img tfrml edrl lmbr/sac 1 lvl INJECTION SPINE TRANSFORAMINAL Spinal stenosis of lumbar region with neurogenic claudication 12/27/2023 1:57 PM EDT [facility] Start: 12-27-2023 Subsequent hospital visit by physician 12/27/2023 1:57 PM EDT Hospital Encounter [facility] [address] [place] [place] [address] Reymundo Giron MD [address] [facility] [place] [address] [facility] Start: 12-23-2023 End: 12-23-2023 Clinical Support [facility] Comment on above: Arrived Start: 12-11-2023 End: 12-11-2023 Patient encounter procedure 12/11/2023 1:30 PM EDT Office Visit [facility] [address] [place] [address] Live Kwon, MAKAYLA [address], [address] [place] [address] [facility] Start: 12-02-2023 End: 12-02-2023 Clinical Support 12/02/2023 2:00 PM EDT Clinical Support [facility] [address] [place] [address] Lindy Valentino, [facility] [address] [place] [address] [facility] Start: 11-22-2023 End: 09-13-2024 Admission to same day surgery center 11/22/2023 10:37 AM EDT - 11/22/2023 10:43 AM EDT Surgery [facility] [address] [place] [address] Reymundo Giron MD [address] [place] [address] INJECTION BLOCK SACROILIAC JOINT Bilateral SI Joint [facility] Comment on above: INJECTION BLOCK SACROILIAC JOINT Bilater al SI Joint Start: 11-22-2023 End: 11-22-2023 INJECTION BLOCK SACROILIAC JOINT INJECTION BLOCK SACROILIAC JOINT Disorder of sacrum 11/22/2023 10:37 AM EDT [facility] Start: 11-22-2023 Subsequent hospital visit by physician 11/22/2023 10:37 AM EDT Hospital Encounter [facility] [address] [place] [address] Reymundo Giron MD [address] [facility] [place] [address] [facility] Start: 11-10-2023 Influenza vaccination [facility] Start: 11-07-2023 End: 11-07-2023 Patient encounter procedure [facility] Comment on above: Metatarsalgia, left foot (Primary Dx); Diabetes 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 polyneuropathy, with long-term current use of insulin ([facility]); Onychomycosis; Toe pain, bilateral Start: 11-04-2023 End: 11-04-2023 Clinical Support 11/04/2023 2:00 PM EDT Clinical Support [facility] [address] [place] [address] Lindy Valentino, [facility] [address] [place] [address] Arrived [facility] Comment on above: Arrived Start: 09-28-2023 Glaucoma screening Diabetes: Retinopathy Screening [facility] Start: 09-08-2023 Influenza vaccination Influenza Vaccine (#1) [facility] Comment on above: Postponed from 11/09/2022 (Patient Refus ed) Start: 08-14-2023 End: 08-14-2023 Patient encounter procedure 08/14/2023 12:45 PM EDT Office Visit [facility] [address] [place] [address] Live Kwon PA-C [address] [place] [address] [facility] Start: 08-09-2023 Subsequent hospital visit by physician 08/09/2023 Hospital Encounter [facility] [address] [place] [address] Reymundo Giron MD [address] [place] [address] [facility] Start: 07-12-2023 End: 07-12-2023 Admission to same day surgery center 07/12/2023 11:00 AM EDT - 07/12/2023 11:11 AM EDT Surgery [facility] [address] [place] [address] Reymundo Giron MD [address] [place] [address] RADIOFREQUENCY ABLATION SPINAL Left L 2/3, 3/4 [34352 (CPT )] [facility] Comment on above: RADIOFREQUENCY ABLATION SPINAL Left L 2/ 3, 3/4 [01752 (CPT )] Start: 07-12-2023 End: 07-12-2023 Dstr nrolytc agnt parverteb fct sngl lmbr/sacral RADIOFREQUENCY ABLATION SPINAL Lumbar spondylosis 07/12/2023 11:00 AM EDT [facility] Start: 07-12-2023 Subsequent hospital visit by physician 07/12/2023 11:00 AM EDT Hospital Encounter [facility] [address] [place] [address] Reymundo Giron MD [address] [place] [address] [facility] Start: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 type 2 diabetes mellitus, unspecified retinopathy severity (HCC) Severe obesity (BMI 35.0-39.9) with comorbidity ([facility]-HCC) Long-term insulin use (HCC) Type 2 diabetes mellitus with stage 3a chronic kidney disease, with long-term current use of insulin (HCC)- Primary Type 2 diabetes mellitus with peripheral neuropathy (HCC) 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 associated with type 2 diabetes mellitus (HCC) 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 associated with type 2 diabetes mellitus (HCC)- Primary Type 2 diabetes mellitus with stage 3a chronic kidney disease, with long-term current use of insulin (HCC) Type 2 diabetes mellitus with peripheral neuropathy (HCC) 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 associated with type 2 diabetes mellitus (HCC)- Primary Type 2 diabetes mellitus with stage 3a chronic kidney disease, with long-term current use of insulin (HCC) Type 2 diabetes mellitus with peripheral neuropathy (HCC) 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 associated with type 2 diabetes mellitus (HCC)- Primary Type 2 diabetes mellitus with peripheral neuropathy (HCC) Type 2 diabetes mellitus with stage 3a chronic kidney disease, with long-term current use of insulin (HCC) Type 2 diabetes mellitus with peripheral neuropathy (HCC)- Primary Type 2 diabetes mellitus with stage 3a chronic kidney disease, with long-term current use of insulin (HCC) 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 associated with type 2 diabetes mellitus (HCC) Type 2 diabetes mellitus with hyperglycemia, with long-term current use of insulin (HCC) Type 2 diabetes mellitus with peripheral neuropathy (HCC)- Primary Moderate nonproliferative diabetic retinopathy of both eyes with macular edema associated with type 2 diabetes mellitus (HCC) Type 2 diabetes mellitus with stage 3a chronic kidney disease, with long-term current use of insulin (HCC) Type 2 diabetes mellitus with hyperglycemia, with long-term current use of insulin (HCC) Class 2 severe obesity due to excess calories with serious comorbidity and body mass index (BMI) of 35.0 to 35.9 in adult ([facility]) Piriformis syndrome of left side- Primary documented in this encounter [facility] HealthcareEvaluation note* Diagnosis Disorder of sacrum- Primary Disorders of sacrum Disorder of sacrum- Primary Disorders of sacrum Disorder of sacrum Disorders of sacrum [facility] Lumbosacral spondylosis without myelopathy- [facility] Diagnosis Diabetic nephropathy associated with type 2 diabetes mellitus (HCC)- Primary Type 2 diabetes mellitus with peripheral neuropathy (HCC) Diabetic retinopathy of 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 associated with type 2 diabetes mellitus, unspecified retinopathy severity (HCC) Severe obesity (BMI 35.0-39.9) with comorbidity ([facility]-HCC) Long-term insulin use (HCC) Type 2 diabetes mellitus with stage 3a chronic kidney disease, with long-term current use of insulin (HCC)- Primary Type 2 diabetes mellitus with peripheral neuropathy (HCC) 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 associated with type 2 diabetes mellitus (HCC) 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 associated with type 2 diabetes mellitus (HCC)- Primary Type 2 diabetes mellitus with stage 3a chronic kidney disease, with long-term current use of insulin (HCC) Type 2 diabetes mellitus with peripheral neuropathy (HCC) 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 associated with type 2 diabetes mellitus (HCC)- Primary Type 2 diabetes mellitus with stage 3a chronic kidney disease, with long-term current use of insulin (HCC) Type 2 diabetes mellitus with peripheral neuropathy (HCC) 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 associated with type 2 diabetes mellitus (HCC)- Primary Type 2 diabetes mellitus with peripheral neuropathy (HCC) Type 2 diabetes mellitus with stage 3a chronic kidney disease, with long-term current use of insulin (HCC) Type 2 diabetes mellitus with peripheral neuropathy (HCC)- Primary Type 2 diabetes mellitus with stage 3a chronic kidney disease, with long-term current use of insulin (HCC) 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 associated with type 2 diabetes mellitus (HCC) Type 2 diabetes mellitus with hyperglycemia, with long-term current use of insulin (HCC) Type 2 diabetes mellitus with peripheral neuropathy (HCC)- Primary Moderate nonproliferative diabetic retinopathy of both eyes with macular edema associated with type 2 diabetes mellitus (HCC) Type 2 diabetes mellitus with stage 3a chronic kidney disease, with long-term current use of insulin (HCC) Type 2 diabetes mellitus with hyperglycemia, with long-term current use of insulin (HCC) Class 2 severe obesity due to excess calories with serious comorbidity and body mass index (BMI) of 35.0 to 35.9 in adult ([facility]) Piriformis syndrome of left side- Primary Piriformis syndrome of left side- Primary documented in this encounter [facility]Evaluation note* Diagnosis Diabetic nephropathy associated with type 2 diabetes mellitus (HCC)- Primary Type 2 diabetes mellitus with peripheral neuropathy (HCC) Diabetic retinopathy of 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 associated with type 2 diabetes mellitus, unspecified retinopathy severity (HCC) Severe obesity (BMI 35.0-39.9) with comorbidity ([facility]) Long-term insulin use (HCC) Type 2 diabetes mellitus with stage 3a chronic kidney disease, with long-term current use of insulin (HCC)- Primary Type 2 diabetes mellitus with peripheral neuropathy (HCC) 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 associated with type 2 diabetes mellitus (HCC) 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 associated with type 2 diabetes mellitus (HCC)- Primary Type 2 diabetes mellitus with stage 3a chronic kidney disease, with long-term current use of insulin (HCC) Type 2 diabetes mellitus with peripheral neuropathy (HCC) 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 associated with type 2 diabetes mellitus (HCC)- Primary Type 2 diabetes mellitus with stage 3a chronic kidney disease, with long-term current use of insulin (HCC) Type 2 diabetes mellitus with peripheral neuropathy (HCC) 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 associated with type 2 diabetes mellitus (HCC)- Primary Type 2 diabetes mellitus with peripheral neuropathy (HCC) Type 2 diabetes mellitus with stage 3a chronic kidney disease, with long-term current use of insulin (HCC) Type 2 diabetes mellitus with peripheral neuropathy (HCC)- Primary Type 2 diabetes mellitus with stage 3a chronic kidney disease, with long-term current use of insulin (HCC) 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 associated with type 2 diabetes mellitus (HCC) Type 2 diabetes mellitus with hyperglycemia, with long-term current use of insulin (HCC) Type 2 diabetes mellitus with peripheral neuropathy (HCC)- Primary Moderate nonproliferative diabetic retinopathy of both eyes with macular edema associated with type 2 diabetes mellitus (HCC) Type 2 diabetes mellitus with stage 3a chronic kidney disease, with long-term current use of insulin (HCC) Type 2 diabetes mellitus with hyperglycemia, with long-term current use of insulin (HCC) Class 2 severe obesity due to excess calories with serious comorbidity and body mass index (BMI) of 35.0 to 35.9 in adult ([facility]) Piriformis syndrome of left side- Primary Piriformis syndrome of left side- Primary documented in this encounter [facility]* Diagnosis Diabetic nephropathy associated with type 2 diabetes mellitus (HCC)- Primary Type 2 diabetes mellitus with peripheral neuropathy (HCC) Diabetic retinopathy of 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 associated with type 2 diabetes mellitus, unspecified retinopathy severity (HCC) Severe obesity (BMI 35.0-39.9) with comorbidity ([facility]) Long-term insulin use (HCC) Type 2 diabetes mellitus with stage 3a chronic kidney disease, with long-term current use of insulin (HCC)- Primary Type 2 diabetes mellitus with peripheral neuropathy (HCC) 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 associated with type 2 diabetes mellitus (HCC) 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 associated with type 2 diabetes mellitus (HCC)- Primary Type 2 diabetes mellitus with stage 3a chronic kidney disease, with long-term current use of insulin (HCC) Type 2 diabetes mellitus with peripheral neuropathy (HCC) 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 associated with type 2 diabetes mellitus (HCC)- Primary Type 2 diabetes mellitus with stage 3a chronic kidney disease, with long-term current use of insulin (HCC) Type 2 diabetes mellitus with peripheral neuropathy (HCC) 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 associated with type 2 diabetes mellitus (HCC)- Primary Type 2 diabetes mellitus with peripheral neuropathy (HCC) Type 2 diabetes mellitus with stage 3a chronic kidney disease, with long-term current use of insulin (HCC) Type 2 diabetes mellitus with peripheral neuropathy (HCC)- Primary Type 2 diabetes mellitus with stage 3a chronic kidney disease, with long-term current use of insulin (HCC) 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 associated with type 2 diabetes mellitus (HCC) Type 2 diabetes mellitus with hyperglycemia, with long-term current use of insulin (HCC) Type 2 diabetes mellitus with peripheral neuropathy (HCC)- Primary Moderate nonproliferative diabetic retinopathy of both eyes with macular edema associated with type 2 diabetes mellitus (HCC) Type 2 diabetes mellitus with stage 3a chronic kidney disease, with long-term current use of insulin (HCC) Type 2 diabetes mellitus with hyperglycemia, with long-term current use of insulin (HCC) Class 2 severe obesity due to excess calories with serious comorbidity and body mass index (BMI) of 35.0 to 35.9 in adult ([facility]) Piriformis syndrome of left side- Primary Piriformis syndrome of left side- Primary documented in this encounter [facility]* Diagnosis Diabetic nephropathy associated with type 2 diabetes mellitus (HCC)- Primary Type 2 diabetes mellitus with peripheral neuropathy (HCC) Diabetic retinopathy of 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 associated with type 2 diabetes mellitus, unspecified retinopathy severity (HCC) Severe obesity (BMI 35.0-39.9) with comorbidity ([facility]) Long-term insulin use (HCC) Type 2 diabetes mellitus with stage 3a chronic kidney disease, with long-term current use of insulin (HCC)- Primary Type 2 diabetes mellitus with peripheral neuropathy (HCC) 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 associated with type 2 diabetes mellitus (HCC) 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 associated with type 2 diabetes mellitus (HCC)- Primary Type 2 diabetes mellitus with stage 3a chronic kidney disease, with long-term current use of insulin (HCC) Type 2 diabetes mellitus with peripheral neuropathy (HCC) 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 associated with type 2 diabetes mellitus (HCC)- Primary Type 2 diabetes mellitus with stage 3a chronic kidney disease, with long-term current use of insulin (HCC) Type 2 diabetes mellitus with peripheral neuropathy (HCC) 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 associated with type 2 diabetes mellitus (HCC)- Primary Type 2 diabetes mellitus with peripheral neuropathy (HCC) Type 2 diabetes mellitus with stage 3a chronic kidney disease, with long-term current use of insulin (HCC) Type 2 diabetes mellitus with peripheral neuropathy (HCC)- Primary Type 2 diabetes mellitus with stage 3a chronic kidney disease, with long-term current use of insulin (HCC) 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 associated with type 2 diabetes mellitus (HCC) Type 2 diabetes mellitus with hyperglycemia, with long-term current use of insulin (HCC) Type 2 diabetes mellitus with peripheral neuropathy (HCC)- Primary Moderate nonproliferative diabetic retinopathy of both eyes with macular edema associated with type 2 diabetes mellitus (HCC) Type 2 diabetes mellitus with stage 3a chronic kidney disease, with long-term current use of insulin (HCC) Type 2 diabetes mellitus with hyperglycemia, with long-term current use of insulin (HCC) Class 2 severe obesity due to excess calories with serious comorbidity and body mass index (BMI) of 35.0 to 35.9 in adult ([facility]) Piriformis syndrome of left side- Primary Metatarsalgia, left foot- Primary Diabetes 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 polyneuropathy, with long-term current use of insulin ([facility]) Pain due to onychomycosis of toenails of both feet documented in this encounter [facility]* Diagnosis Spinal stenosis of lumbar region with neurogenic claudication- [facility] Diabetic nephropathy associated with type 2 diabetes mellitus (HCC)- Primary Type 2 diabetes mellitus with peripheral neuropathy (HCC) Diabetic retinopathy of 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 associated with type 2 diabetes mellitus, unspecified retinopathy severity ([facility]) Severe obesity (BMI 35.0-39.9) with comorbidity ([facility]) Long-term insulin use (HCC) Type 2 diabetes mellitus with stage 3a chronic kidney disease, with long-term current use of insulin (HCC)- Primary Type 2 diabetes mellitus with peripheral neuropathy (HCC) 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 associated with type 2 diabetes mellitus (HCC) 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 associated with type 2 diabetes mellitus (HCC)- Primary Type 2 diabetes mellitus with stage 3a chronic kidney disease, with long-term current use of insulin (HCC) Type 2 diabetes mellitus with peripheral neuropathy (HCC) 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 associated with type 2 diabetes mellitus (HCC)- Primary Type 2 diabetes mellitus with stage 3a chronic kidney disease, with long-term current use of insulin (HCC) Type 2 diabetes mellitus with peripheral neuropathy (HCC) 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 associated with type 2 diabetes mellitus (HCC)- Primary Type 2 diabetes mellitus with peripheral neuropathy (HCC) Type 2 diabetes mellitus with stage 3a chronic kidney disease, with long-term current use of insulin (HCC) Type 2 diabetes mellitus with peripheral neuropathy (HCC)- Primary Type 2 diabetes mellitus with stage 3a chronic kidney disease, with long-term current use of insulin (HCC) 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 associated with type 2 diabetes mellitus (HCC) Type 2 diabetes mellitus with hyperglycemia, with long-term current use of insulin (HCC) Type 2 diabetes mellitus with peripheral neuropathy (HCC)- Primary Moderate nonproliferative diabetic retinopathy of both eyes with macular edema associated with type 2 diabetes mellitus (HCC) Type 2 diabetes mellitus with stage 3a chronic kidney disease, with long-term current use of insulin (HCC) Type 2 diabetes mellitus with hyperglycemia, with long-term current use of insulin (HCC) Class 2 severe obesity due to excess calories with serious comorbidity and body mass index (BMI) of 35.0 to 35.9 in adult ([facility]) Piriformis syndrome of left side- Primary Bipolar 1 disorder ([facility]) documented in this encounter [facility]* Diagnosis Diabetic nephropathy associated with type 2 diabetes mellitus (HCC)- Primary Type 2 diabetes mellitus with peripheral neuropathy (HCC) Diabetic retinopathy of 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 associated with type 2 diabetes mellitus, unspecified retinopathy severity ([facility]) Severe obesity (BMI 35.0-39.9) with comorbidity ([facility]) Long-term insulin use (HCC) Type 2 diabetes mellitus with stage 3a chronic kidney disease, with long-term current use of insulin (HCC)- Primary Type 2 diabetes mellitus with peripheral neuropathy (HCC) 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 associated with type 2 diabetes mellitus (HCC) 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 associated with type 2 diabetes mellitus (HCC)- Primary Type 2 diabetes mellitus with stage 3a chronic kidney disease, with long-term current use of insulin (HCC) Type 2 diabetes mellitus with peripheral neuropathy (HCC) 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 associated with type 2 diabetes mellitus (HCC)- Primary Type 2 diabetes mellitus with stage 3a chronic kidney disease, with long-term current use of insulin (HCC) Type 2 diabetes mellitus with peripheral neuropathy (HCC) 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 associated with type 2 diabetes mellitus (HCC)- Primary Type 2 diabetes mellitus with peripheral neuropathy (HCC) Type 2 diabetes mellitus with stage 3a chronic kidney disease, with long-term current use of insulin (HCC) Type 2 diabetes mellitus with peripheral neuropathy (HCC)- Primary Type 2 diabetes mellitus with stage 3a chronic kidney disease, with long-term current use of insulin (HCC) 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 associated with type 2 diabetes mellitus (HCC) Type 2 diabetes mellitus with hyperglycemia, with long-term current use of insulin (HCC) Type 2 diabetes mellitus with peripheral neuropathy (HCC)- Primary Moderate nonproliferative diabetic retinopathy of both eyes with macular edema associated with type 2 diabetes mellitus (HCC) Type 2 diabetes mellitus with stage 3a chronic kidney disease, with long-term current use of insulin (HCC) Type 2 diabetes mellitus with hyperglycemia, with long-term current use of insulin (HCC) Class 2 severe obesity due to excess calories with serious comorbidity and body mass index (BMI) of 35.0 to 35.9 in adult ([facility]CC) Piriformis syndrome of left side- Primary Piriformis syndrome of left side- Primary Type 2 diabetes mellitus with peripheral neuropathy (HCC) documented in this encounter [facility] HealthcareEvaluation note* Diagnosis Diabetic nephropathy associated with type 2 diabetes mellitus (HCC)- Primary Type 2 diabetes mellitus with peripheral neuropathy (HCC) Diabetic retinopathy of 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 associated with type 2 diabetes mellitus, unspecified retinopathy severity (HCC) Severe obesity (BMI 35.0-39.9) with comorbidity (CMS-HCC) Long-term insulin use (HCC) Type 2 diabetes mellitus with stage 3a chronic kidney disease, with long-term current use of insulin (HCC)- Primary Type 2 diabetes mellitus with peripheral neuropathy (HCC) 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 associated with type 2 diabetes mellitus (HCC) 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 associated with type 2 diabetes mellitus (HCC)- Primary Type 2 diabetes mellitus with stage 3a chronic kidney disease, with long-term current use of insulin (HCC) Type 2 diabetes mellitus with peripheral neuropathy (HCC) 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 associated with type 2 diabetes mellitus (HCC)- Primary Type 2 diabetes mellitus with stage 3a chronic kidney disease, with long-term current use of insulin (HCC) Type 2 diabetes mellitus with peripheral neuropathy (HCC) 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 associated with type 2 diabetes mellitus (HCC)- Primary Type 2 diabetes mellitus with peripheral neuropathy (HCC) Type 2 diabetes mellitus with stage 3a chronic kidney disease, with long-term current use of insulin (HCC) Type 2 diabetes mellitus with peripheral neuropathy (HCC)- Primary Type 2 diabetes mellitus with stage 3a chronic kidney disease, with long-term current use of insulin (HCC) 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 associated with type 2 diabetes mellitus (HCC) Type 2 diabetes mellitus with hyperglycemia, with long-term current use of insulin (HCC) Type 2 diabetes mellitus with peripheral neuropathy (HCC)- Primary Moderate nonproliferative diabetic retinopathy of both eyes with macular edema associated with type 2 diabetes mellitus (HCC) Type 2 diabetes mellitus with stage 3a chronic kidney disease, with long-term current use of insulin (HCC) Type 2 diabetes mellitus with hyperglycemia, with long-term current use of insulin (HCC) Class 2 severe obesity due to excess calories with serious comorbidity and body mass index (BMI) of 35.0 to 35.9 in adult Piriformis syndrome of left side- Primary Type 2 diabetes mellitus with stage 3b chronic kidney disease, with long-term current use of insulin (HCC)- Primary Type 2 diabetes mellitus with peripheral neuropathy (HCC) Type 2 diabetes mellitus with hyperglycemia, with long-term current use of insulin (HCC) Moderate nonproliferative diabetic retinopathy of both eyes with macular edema associated with type 2 diabetes mellitus (HCC) Class 2 severe obesity due to excess calories with serious comorbidity and body mass index (BMI) of 35.0 to 35.9 in adult documented in this encounter [facility] HealthcareEvaluation note* Diagnosis Diabetic nephropathy associated with type 2 diabetes mellitus (HCC)- Primary Type 2 diabetes mellitus with peripheral neuropathy (HCC) Diabetic retinopathy of 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 associated with type 2 diabetes mellitus, unspecified retinopathy severity (HCC) Severe obesity (BMI 35.0-39.9) with comorbidity ([facility]-HCC) Long-term insulin use (HCC) Type 2 diabetes mellitus with stage 3a chronic kidney disease, with long-term current use of insulin (HCC)- Primary Type 2 diabetes mellitus with peripheral neuropathy (HCC) 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 associated with type 2 diabetes mellitus (HCC) 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 associated with type 2 diabetes mellitus (HCC)- Primary Type 2 diabetes mellitus with stage 3a chronic kidney disease, with long-term current use of insulin (HCC) Type 2 diabetes mellitus with peripheral neuropathy (HCC) 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 associated with type 2 diabetes mellitus (HCC)- Primary Type 2 diabetes mellitus with stage 3a chronic kidney disease, with long-term current use of insulin (HCC) Type 2 diabetes mellitus with peripheral neuropathy (HCC) 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 associated with type 2 diabetes mellitus (HCC)- Primary Type 2 diabetes mellitus with peripheral neuropathy (HCC) Type 2 diabetes mellitus with stage 3a chronic kidney disease, with long-term current use of insulin (HCC) Type 2 diabetes mellitus with peripheral neuropathy (HCC)- Primary Type 2 diabetes mellitus with stage 3a chronic kidney disease, with long-term current use of insulin (HCC) 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 associated with type 2 diabetes mellitus (HCC) Type 2 diabetes mellitus with hyperglycemia, with long-term current use of insulin (HCC) Type 2 diabetes mellitus with peripheral neuropathy (HCC)- Primary Moderate nonproliferative diabetic retinopathy of both eyes with macular edema associated with type 2 diabetes mellitus (HCC) Type 2 diabetes mellitus with stage 3a chronic kidney disease, with long-term current use of insulin (HCC) Type 2 diabetes mellitus with hyperglycemia, with long-term current use of insulin (HCC) Class 2 severe obesity due to excess calories with serious comorbidity and body mass index (BMI) of 35.0 to 35.9 in adult Piriformis syndrome of left side- Primary Type 2 diabetes mellitus with stage 3b chronic kidney disease, with long-term current use of insulin (HCC)- Primary Type 2 diabetes mellitus with peripheral neuropathy (HCC) Type 2 diabetes mellitus with hyperglycemia, with long-term current use of insulin (HCC) Moderate nonproliferative diabetic retinopathy of both eyes with macular edema associated with type 2 diabetes mellitus (HCC) Class 2 severe obesity due to excess calories with serious comorbidity and body mass index (BMI) of 35.0 to 35.9 in adult Type 2 diabetes mellitus with diabetic polyneuropathy, with long-term current use of insulin (HCC)- Primary Essential (primary) hypertension Unspecified essential hypertension Acute bronchitis, unspecified organism Chronic diarrhea Diarrhea documented in this encounter [facility] HealthcareEvaluation note* Diagnosis Diabetic nephropathy associated with type 2 diabetes mellitus (HCC)- Primary Type 2 diabetes mellitus with peripheral neuropathy (HCC) Diabetic retinopathy of 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 associated with type 2 diabetes mellitus, unspecified retinopathy severity (HCC) Severe obesity (BMI 35.0-39.9) with comorbidity ([facility]-HCC) Long-term insulin use (HCC) Type 2 diabetes mellitus with stage 3a chronic kidney disease, with long-term current use of insulin (HCC)- Primary Type 2 diabetes mellitus with peripheral neuropathy (HCC) 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 associated with type 2 diabetes mellitus (HCC) 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 associated with type 2 diabetes mellitus (HCC)- Primary Type 2 diabetes mellitus with stage 3a chronic kidney disease, with long-term current use of insulin (HCC) Type 2 diabetes mellitus with peripheral neuropathy (HCC) 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 associated with type 2 diabetes mellitus (HCC)- Primary Type 2 diabetes mellitus with stage 3a chronic kidney disease, with long-term current use of insulin (HCC) Type 2 diabetes mellitus with peripheral neuropathy (HCC) 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 associated with type 2 diabetes mellitus (HCC)- Primary Type 2 diabetes mellitus with peripheral neuropathy (HCC) Type 2 diabetes mellitus with stage 3a chronic kidney disease, with long-term current use of insulin (HCC) Type 2 diabetes mellitus with peripheral neuropathy (HCC)- Primary Type 2 diabetes mellitus with stage 3a chronic kidney disease, with long-term current use of insulin (HCC) 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 associated with type 2 diabetes mellitus (HCC) Type 2 diabetes mellitus with hyperglycemia, with long-term current use of insulin (HCC) Type 2 diabetes mellitus with peripheral neuropathy (HCC)- Primary Moderate nonproliferative diabetic retinopathy of both eyes with macular edema associated with type 2 diabetes mellitus (HCC) Type 2 diabetes mellitus with stage 3a chronic kidney disease, with long-term current use of insulin (HCC) Type 2 diabetes mellitus with hyperglycemia, with long-term current use of insulin (HCC) Class 2 severe obesity due to excess calories with serious comorbidity and body mass index (BMI) of 35.0 to 35.9 in adult Piriformis syndrome of left side- Primary Type 2 diabetes mellitus with stage 3b chronic kidney disease, with long-term current use of insulin (HCC)- Primary Type 2 diabetes mellitus with peripheral neuropathy (HCC) Type 2 diabetes mellitus with hyperglycemia, with long-term current use of insulin (HCC) Moderate nonproliferative diabetic retinopathy of both eyes with macular edema associated with type 2 diabetes mellitus (HCC) Class 2 severe obesity due to excess calories with serious comorbidity and body mass index (BMI) of 35.0 to 35.9 in adult Piriformis syndrome of left side- Primary documented in this encounter [facility] and [facility] note Author Peyton Hoskins [facility] July 12, 2022 1:05pm Note Date/Time July 12, 2022 1:05pm [facility] [address] [place] [address] Gastroenterology H&P Signed Patient: Radha Jonse MR#: [id number] : 1970 Acct:[id number] Age/Sex: 51 / F Adm Date: 3 Loc: Room: Type: [facility] Attending Dr: Peyton Hoskins MD Copies to: MD Kaylie Tarango APRN, ARTIST MODEL~ Date of Service: 07/12/2022 HISTORY & PHYSICAL: [...] <Electronically signed by Peyton Hoskins MD> 07/12/22 1300 [facility] Work Phone: History and physical note* Clinical Note Date No Information [facility] Work Phone: Hisiolp general Narrative - Reported* Type Description Date [...] 2014 Hospitalization History See past surgical hx ikeGPS Other Hismrap general Narrative - Reported* Type Description Date [...] 2013 Hospitalization History See past surgical hx ikeGPS Other History general Narrative - Reported* Type [...] 2013 Hospitalization History See past surgical hx ikeGPS Other Hospital Discharge instructions No data available for this section [facility] Additional Instructions DISCHARGE INSTRUCTIONS [...] problems. -Follow up with PCP. -Office number [phone]. [facility] Work Phone: InstructionsNot on filedocumented in this encounter [facility] filed[facility] in this [facility]Not on filedocumented in this encounter [facility] filedocumented in this encounter [facility] No data available for this section [facility] note* Clinical Note Date No Information [facility] Work Phone: Rerrxv for referral (narrative)* Reason For Referral No Information [facility] Work Phone: Reason for visit NarrativePatient here at the request of Dr. Chavez for evaluation & treatment of dysphagia.ikeGPS Other Reason for visit Narrative* Behavioral Health - Outpatient (Routine) - Closed Specialty Diagnoses / Procedures Referred By Randall bliss Referred To Contact Behavioral Health Diagnoses Generalized anxiety disorder (CMS/HCC) Procedures [place] PSYCHIATRIC DIAGNOSTIC EVALUATION [facility] [address] [place] [address] Phone: tel: fax: [facility] [address] [place] [address] Phone: tel: fax: Referral ID Status Reason Start Date Expiration Date Visits Re quested Visits Authorized [id number] Closed 02/20/2024 08/18/2024 1 1 [facility]Reason for [facility] Narrative* Rehabilitation - Outpatient (Routine) - Authorized Specialty Diagnoses / Procedures Referred By Randall bliss Referred To Contact Physical Therapy Diagnoses Piriformis syndrome of left side Procedures [place] OFFICE/OUTPATIENT NEW HIGH MDM 60 MINUTES K[facility] Lloyd [facility] [place] [address] Phone: tel: fax: Marylou Lay, PT Referral ID Status Reason Start Date Expiration Date Visits Requested Visits Authorized [id number] Authorized Specialty Services Required 09/09/2024 03/08/2025 30 30 [facility]Reason for [facility] Narrative* Rehabilitation - Outpatient (Routine) - Authorized Specialty Diagnoses / Procedures Referred By Randall bliss Referred To Contact Physical Therapy Diagnoses Piriformis syndrome of left side Procedures [place] OFFICE/OUTPATIENT NEW HIGH MDM 60 MINUTES Kala Lloyd MD [address] [place] [address] Phone: tel: fax: Marylou Lay, PT Referral ID Status Reason Start Date Expiration Date Visits Requested Visits Authorized [id number] Authorized Specialty Services Required 09/09/2024 03/10/2025 30 30 [facility] Healthcare Summary Purpose Family History Relationship Condition [...] mental disorder Unknown mother Diabetes mellitus Unknown Family Member Type Diagnosis Age At Onset Father Problem Diabetes mellitus Sister Problem Diabetes mellitus Mother Problem Cardiovascular disease Mother Problem degenerative disorder of mac [place] Mother Problem Diabetes mellitus Advance Directives Advance Directive Response Recorded Date/ Time Advance Directives No April 2:13pm Advance Directive Response Recorded Date/ Time Advance Directives No April 3:13pm Advance Directive Response Recorded Date/ Time Advance Directives No September 03 1:37pm Directive Yes / No Effective Date File Name No Information Chief Complaint and Reason for Visit Chief [...] kidney disease) stage 3, GFR 30-59 ml/min [id number] Hypomagnesemia Type 2 diabetes mellitus with diabetic chronic kidney disease Hypercalcemia Chief Complaint RENAL F/U Reason for Visit Adrenal nodule CKD (chronic kidney disease) stage 3, GFR 30-59 ml/min [id number] Hypomagnesemia Type 2 diabetes mellitus with diabetic chronic kidney disease Hypercalcemia Chief Complaint m54.50 Chief Complaint BH m54.50 Other intervertebral disc displacement, lumbar Chief Complaint m54.50 Other intervertebral disc displacement, lumbar RENAL 6 MONTH F/U Reason for Visit History of lumbar fu paul Lumbar stenosis Piriformis syndrome of left side Adrenal nodule CKD (chronic kidney disease) stage 3, GFR 30-59 ml/min [id number] Hypomagnesemia Type 2 diabetes mellitus with diabetic chronic kidney disease Hypercalcemia Chief Complaint Admit Date May 12, 2024 1:00 am RENAL 6 MONTH F/U June 18, 2024 1:5 1pm Reason for Visit Admit Date Adrenal nodule June 18, 2024 1:5 1pm CKD (chronic kidney disease) stage 3, GF R 30-59 ml/min June 18, 2024 1:51pm Hypertensive chronic kidney disease with stage 1 through stage 4 chronic ki June 18, 2024 1:51pm Hypomagnesemia June 18, 2024 1:5 1pm Type 2 diabetes mellitus with diabetic c hronic kidney disease June 18, 2024 1:51pm Hypercalcemia June 18, 2024 1:5 1pm Reason for Referral Specialty Diagnoses / Procedures Referred By Randall bliss Referred To Contact Diagnoses Spinal stenosis of lumbar region with neurogenic claudication Procedures Case request operating room: INJECTION SPINE TRANSFORAMINAL Left 4,5 NR Live Kwon PA-C [address], [address] [place] [address] Referral ID Status Reason Start Date Expiration Date V isits Requested Visits Authorized [id number] Pending Review 12/11/2023 12/10/2024 1 1 Specialty Diagnoses / Procedures Referred By Contac t Referred To Contact Diagnoses Disorder of sacrum Procedures Case request operating room: INJECTION BLOCK SACROILIAC JOINT Bilateral SI Joint Live Kwon PA-C [address], [address] [place] [address] Referral ID Status Reason Start Date Expiration Date V isits Requested Visits Authorized [id number] Pending Review 10/23/2023 10/22/2024 1 1 Specialty Diagnoses / Procedures Referred By Contac t Referred To Contact Rehabilitation Diagnoses Lumbar spondylosis Trochanteric bursitis of left hip Disorder of sacrum Live Kwon PA-C [address], [address] [place] [address] [facility] [address] [place] [id number] Referral ID Status Reason Start Date Expiration Date Visits Requested Visits Authorized [id number] Authorized Specialty Services Required 10/23/2023 10/22/2024 1 1 Specialty Diagnoses / Procedures Referred By Contac t Referred To Contact Diagnoses Lumbar spondylosis Procedures Case request operating room: RADIOFREQUENCY ABLATION SPINAL Left L 2/3, 3/4 Live Kwon PA-C [address] [address] Referral ID Status Reason Start Date Expiration Date V isits Requested Visits Authorized [id number] Pending Review 06/12/2023 06/11/2024 1 1 Specialty Diagnoses / Procedures Referred By Contac t Referred To Contact Diagnoses Lumbar spondylosis Procedures Case request operating room: RADIOFREQUENCY ABLATION SPINAL Right L 2/3 3/4 Live Kwon PA-C [address], [address] [place] [address] Referral ID Status Reason Start Date Expiration Date V isits Requested Visits Authorized [id number] Pending Review 06/12/2023 06/11/2024 1 1 Specialty Diagnoses / Procedures Referred By Contac t Referred To Contact Diagnoses Chest pain, unspecified type Abnormal EKG Procedures Nuc stress Lexiscan/Exercise Bird Dykes MD [address] [place] [address] [facility] [address] [place] [address] Phone: [phone] Referral ID Status Reason Start Date Expiration Date V isits Requested Visits Authorized [id number] Authorized 03/15/2023 03/14/2024 5 5 Additional Source [...] Comments Appointment Confirmation 05/18/2024 Reason Comments Diabetes Reason Comments Abnormal Calcium Follow-up LAB Reason Onset Date Comments Appointment 07/21/2024 Reason Comments Diabetes Cough Reason Comments Back Pain Hip Pain Reason Comments ER Follow-up Reason Onset Date Comments re: PT Eval today 09/21/2024 FU 09/30/2024 PT Eval rs 10/02/2024 10/21/24 w/ Alin Lay PT. Reason Comments Back Pain Hip Pain Patient Care team informatio n (unrecognized section and content) Team Status: Active Member Role Status Dates Kaylie Chavez APRN FIELD REIMBURSEMENT MANAGER-C Primary Care Provider Active Team Status: Active Member Role Status Dates Kaylie Chavez APRN FIELD REIMBURSEMENT MANAGER-C Primary Care Provider Active Start: May 12, 2024 Fermín Donahue MD Attending Provider Active Start: May 12, 2024 Team Status: Active Member Role Status Dates Kaylie Chavez APRN FIELD REIMBURSEMENT MANAGER-C Primary Care Provider Active Start: June 10, 2024 Nir Horvath MD Attending Provider Active Start : June 10, 2024 Team Status: Inactive Member Role Status Dates Kaylie Chavez APRN FIELD REIMBURSEMENT MANAGER-C Primary Care Provider Active Start: June 18, 2024 End: June 18, 2024 Nir Horvath MD Attending Provider Active Start : June 18, 2024 End: June 18, 2024 Team Status: Inactive Member Role Status Dates Kaylie Chavez APRN FIELD REIMBURSEMENT MANAGER-C Primary Care Provider Active Start: September 30, 2023 End: September 30, 2023 Jeovanny Mendes MD Attending Provider Active Star t: September 30, 2023 End: September 30, 2023 Team Status: Inactive Member Role Status Dates Kaylie Chavez APRN FIELD REIMBURSEMENT MANAGER-C Primary Care Provider Active Start: October 01, 2023 End: October 01, 2023 Jeovanny Mendes MD Attending Provider Active Star t: October 01, 2023 End: October 01, 2023 Team Status: Active Member Role Status Dates Kaylie Chavez APRN FIELD REIMBURSEMENT MANAGER-C Primary Care Provider Active Start: October 29, 2023 Fermín Donahue MD Attending Provider Active Start: October 29, 2023 Team Status: Active Member Role Status Dates Kaylie Chavez APRN FIELD REIMBURSEMENT MANAGER-C Primary Care Provider Active Start: November 13, 2023 Nir Horvath MD Attending Provider Active Start : November 13, 2023 Team Status: Inactive Member Role Status Dates Kaylie Chavez APRN FIELD REIMBURSEMENT MANAGER-C Primary Care Provider Active Start: November 21, 2023 End: November 21, 2023 Nir Horvath MD Attending Provider Active Start : November 21, 2023 End: November 21, 2023 Team Status: Active Member Role Status Dates Kaylie Chavez APRN FIELD REIMBURSEMENT MANAGER-C Primary Care Provider Active Start: April 16, 2023 Fermín Donahue MD Attending Provider Active Start: April 16, 2023 Team Status: Inactive Member Role Status Dates Kaylie Chavez APRN FIELD REIMBURSEMENT MANAGER-C Primary Care Provider Active Start: April 25, 2023 End: April 25, 2023 Nir Horvath MD Attending Provider Active Start : April 25, 2023 End: April 25, 2023 Team Status: Inactive Member Role Status Dates Kaylie Chavez APRN FIELD REIMBURSEMENT MANAGER-C Primary Care Provider Active Peyton Hoskins MD Attending Provider Active Team Status: Active Member Role Status Dates Kala Lloyd MD Primary Care Provider Active Kaylie Chavez APRN FIELD REIMBURSEMENT MANAGER-C Referring Provider Active Isela Downs MD Attending Provider Active Team Status: Active Member Role Status Dates Kaylie Chavez APRN FIELD REIMBURSEMENT MANAGER-C Primary Care Provider Active Herrera Donahue MD Attending Provider Active Team Status: Inactive Member Role Status Dates Kaylie Chavez APRN FIELD REIMBURSEMENT MANAGER-C Primary Care Provider Active Nir Horvath MD Attending Provider Active Veterinarian Poultry Relationship Specialty Start Date End Date Kala Lloyd MD [address] [facility] [place] [address] PCP - General Family Medicine 08/07/22 Kaylie Chavez NP [address] [place] [address] Nurse Practitioner Family Medicine 08/07/22 Veterinarian Poultry Relationship Specialty Start Date End Date Kala Lloyd MD [address] [place] [facility] [place] [address] PCP - General Family Medicine 08/07/22 Kaylie Chavez NP [address] [place] [address] Nurse Practitioner Family Medicine 08/07/22 Team Status: Active Member Role Status Dates Kaylie Chavez APRN FIELD REIMBURSEMENT MANAGER-C Primary Care Provider Active Start: September 24, 2023 Fermín Donahue MD Attending Provider Active Start: September 24, 2023 Veterinarian Poultry Relationship Specialty Start Date End Date Kala Lloyd MD [address] [place] [address] PCP - General Family Medicine 08/07/22 Kala Lloyd MD [address] [place] [address] PCP - [facility] 06/10/23 Kaylie Chavez, FIELD REIMBURSEMENT MANAGER [address] [place] [address] Nurse Practitioner Family Medicine 08/07/22 Veterinarian Poultry Relationship Specialty Start Date End Date Kala Lloyd MD [address] [place] [address] PCP - General Family Medicine 08/07/22 Kala Lloyd MD [address] [place] [address] PCP - NOMS Krysta [facility] 06/10/23 Kaylie Chavez NP [address] [place] [address] Nurse Practitioner Family Medicine 08/07/22 Veterinarian Poultry Relationship Specialty Start Date End Date Kala Lloyd MD [address] [place] [address] PCP - General Family Medicine 08/07/22 Kala Lloyd MD [address] [place] [address] PCP - NOMS Keyser [facility] 06/10/23 Kaylie Chavez, AKILAH [address] [place] [address] Nurse Practitioner Family Medicine 08/07/22 Veterinarian Poultry Relationship Specialty Start Date End Date Kala Lloyd MD [address] [place] [address] PCP - General Family Medicine 08/07/22 Kala Lloyd MD [address] [place] [address] PCP - NOMS Keyser [facility] 06/10/23 Kaylie Chavez, AKILAH [address] [place] [address] Nurse Practitioner Family Medicine 08/07/22 Veterinarian Poultry Relationship Specialty Start Date End Date Kala Lloyd MD [address] [facility] [place] [address] PCP - General Family Medicine 08/07/22 Kala Lloyd MD [address] [facility] [place] [address] PCP - NOMS Keyser [facility] 06/10/23 Kaylie Chavez NP [address] [facility] [place] [address] Nurse Practitioner Family Medicine 08/07/22 Veterinarian Poultry Relationship Specialty Start Date End Date Kala Lloyd MD [address] [facility] [place] [address] PCP - General Family Medicine 08/07/22 Kala Lloyd MD [address] [facility] [place] [address] PCP - NOMS Keyser [facility] 06/10/23 Kaylie Chavez, AKILAH [address] [facility] [place] [address] Nurse Practitioner Family Medicine 08/07/22 Veterinarian Poultry Relationship Specialty Start Date End Date Kala Lloyd MD [address] [facility] [place] [address] PCP - General Family Medicine 08/07/22 Kala Lloyd MD [address] [place] [address] PCP - NOMS Krysta [facility] 06/10/23 Kaylie Chavez, AKILAH [address] [place] [address] Nurse Practitioner Family Medicine 08/07/22 Veterinarian Poultry Relationship Specialty Start Date End Date Kala Lloyd MD [address] [place] [address] PCP - General Family Medicine 08/07/22 Kala Lloyd MD [address] [place] [address] PCP - NOMS Krysta [facility] 06/10/23 Kaylie Chavez NP [address] [place] [address] Nurse Practitioner Family Medicine 08/07/22 Veterinarian Poultry Relationship Specialty Start Date End Date Kala Lloyd MD [address] [place] [address] PCP - General Family Medicine 08/07/22 Kaylie Chavez, FIELD REIMBURSEMENT MANAGER [address] [place] [address] Nurse Practitioner Family Medicine 08/07/22 Veterinarian Poultry Relationship Specialty Start Date End Date Kala Lloyd MD [address] [place] [address] PCP - General Family Medicine 08/07/22 Kaylie Chavez, AKILAH [address] [place] [address] Nurse Practitioner Family Medicine 08/07/22 Veterinarian Poultry Relationship Specialty Start Date End Date Kala Lloyd MD [address] [facility] [place] [address] PCP - General Family Medicine 08/07/22 Kaylie Chavez NP [address] [facility] [place] [address] Nurse Practitioner Family Medicine 08/07/22 Veterinarian Poultry Relationship Specialty Start Date End Date Kala Lloyd MD [address] [facility] [place] [address] PCP - General Family Medicine 08/07/22 Kaylie Chavez NP [address] [facility] [place] [address] Nurse Practitioner Family Medicine 08/07/22 Veterinarian Poultry Relationship Specialty Start Date End Date Kala Lloyd MD [address] [facility] [place] [address] PCP - General Family Medicine 08/07/22 Kaylie Chavez NP [address] [facility] [place] [address] Nurse Practitioner Family Medicine 08/07/22 Veterinarian Poultry Relationship Specialty Start Date End Date Kala Lloyd MD [address] [facility] [place] [address] PCP - General Family Medicine 08/07/22 Kala Lloyd MD [address] [facility] [place] [address] PCP - NOMS Krysta [facility] 06/10/23 Kaylie Chavez, FIELD REIMBURSEMENT MANAGER [address] [place] [address] Nurse Practitioner Family Medicine 08/07/22 Veterinarian Poultry Relationship Specialty Start Date End Date Kala Lloyd MD [address] [place] [address] PCP - General Family Medicine 08/07/22 Kala Lloyd MD [address] [place] [address] PCP - NOMS Krysta [facility] 06/10/23 Kaylie Chavez NP [address] [place] [address] Nurse Practitioner Family Medicine 08/07/22 Lindy Valentino [facility] [address] [place] [address] Behavioral Health 03/18/24 Veterinarian Poultry Relationship Specialty Start Date End Date Kala Lloyd MD [address] [place] [address] PCP - General Family Medicine 08/07/22 Kala Lloyd MD [address] [place] [address] PCP - NOMS Krysta [facility] 06/10/23 Kaylie Chavez, AKILAH [address] [place] [address] Nurse Practitioner Family Medicine 08/07/22 Lindy Valentino [facility] [address] [place] [address] Behavioral Health 03/18/24 Veterinarian Poultry Relationship Specialty Start Date End Date Kaylie Chavez, COILED COIL INSPECTOR-ARTIST MODEL PCP - General Nurse Practitioner 11/20/18 Veterinarian Poultry Relationship Specialty Start Date End Date Kala Lloyd MD [address] [place] [address] PCP - General Family Medicine 08/07/22 Kala Lloyd MD [address] [place] [address] PCP - NOMS Krysta [facility] 06/10/23 Kaylie Chavez FIELD REIMBURSEMENT MANAGER [address] [place] [address] Nurse Practitioner Family Medicine 08/07/22 Lindy Valentino [facility] [address] [place] [address] Behavioral Health 03/18/24 Veterinarian Poultry Relationship Specialty Start Date End Date Kala Lloyd MD [address] [place] [address] PCP - General Family Medicine 08/07/22 Kala Lloyd MD [address] [place] [address] PCP - NOMS Krysta [facility] 06/10/23 Kaylie Chavez FIELD REIMBURSEMENT MANAGER [address] [place] [address] Nurse Practitioner Family Medicine 08/07/22 Lindy Valentino [facility] [address] [place] [address] Behavioral Health 03/18/24 Veterinarian Poultry Relationship Specialty Start Date End Date Kala Lloyd MD [address] [facility] [place] [address] PCP - General Family Medicine 08/07/22 Kala Lloyd MD [address] [place] [address] PCP - NOMS Krysta [facility] 06/10/23 Kaylie Chavez, FIELD REIMBURSEMENT MANAGER [facility] [place] [address] Nurse Practitioner Family Medicine 08/07/22 Lindy Valentino [facility] [address] [place] [address] Behavioral Health 03/18/24 Veterinarian Poultry Relationship Specialty Start Date End Date Kaylie Chavez APRN-ARTIST MODEL [address] [place] [address] PCP - General Nurse Practitioner 11/20/18 Veterinarian Poultry Relationship Specialty Start Date End Date Kaylie Chavez APRN-ARTIST MODEL [address] [place] [address] PCP - General Nurse Practitioner 11/20/18 Veterinarian Poultry Relationship Specialty Start Date End Date Kaylie Chavez APRN-ARTIST MODEL [address] [place] [address] PCP - General Nurse Practitioner 11/20/18 Veterinarian Poultry Relationship Specialty Start Date End Date Kaylie Chavez COILED COIL INSPECTOR-ARTIST MODEL [address] [place] [address] PCP - General Nurse Practitioner 11/20/18 Veterinarian Poultry Relationship Specialty Start Date End Date Kaylie Chavez, COILED COIL INSPECTOR-[facility] [address] [facility] [place] [address] PCP - General Nurse Practitioner 11/20/18 Veterinarian Poultry Relationship Specialty Start Date End Date Kaylie Chavez COILED COIL INSPECTOR-ARTIST MODEL [address] [facility] [place] [address] PCP - General Nurse Practitioner 11/20/18 Veterinarian Poultry Relationship Specialty Start Date End Date Kaylie Chavez COILED COIL INSPECTOR-[facility] [address] [facility] [place] [facility] [place] [address] PCP - General Nurse Practitioner 11/20/18 Veterinarian Poultry Relationship Specialty Start Date End Date Kaylie Chavez COILED COIL INSPECTOR-[facility] [address] [place] [address] PCP - General Nurse Practitioner 11/20/18 Veterinarian Poultry Relationship Specialty Start Date End Date Kaal Lloyd MD [address] [place] [address] PCP - General Family Medicine 08/07/22 Kala Lloyd MD [address] [facility] [place] [address] PCP - NOMS Krysta [facility] 06/10/23 Kaylie Chavez, FIELD REIMBURSEMENT MANAGER [address] [facility] [place] [address] Nurse Practitioner Family Medicine 08/07/22 Lindy Valentino, [facility] [address] [place] [address] Behavioral Health 03/18/24 Veterinarian Poultry Relationship Specialty Start Date End Date Kala Lloyd MD [address] [place] [address] PCP - General Family Medicine 08/07/22 Kala Lloyd MD [address] [place] [address] PCP - NOMS Krysta [employer] 06/10/23 Kaylie Chavez, FIELD REIMBURSEMENT MANAGER [address] [place] [address] Nurse Practitioner Family Medicine 08/07/22 Lindy Valentino [facility] [address] [place] [address] Behavioral Health 03/18/24 Veterinarian Poultry Relationship Specialty Start Date End Date Kala Lloyd MD [address] [place] [address] PCP - General Family Medicine 08/07/22 Kala Llody MD [address] [place] [address] PCP - NOMS Krysta [employer] 06/10/23 Kaylie Chavez, FIELD REIMBURSEMENT MANAGER [address] [place] [address] Nurse Practitioner Family Medicine 08/07/22 Lindy Valentino [facility] [address] [place] [address] Behavioral Health 03/18/24 Veterinarian Poultry Relationship Specialty Start Date End Date Kala Lloyd MD [address] [place] [address] PCP - General Family Medicine 08/07/22 Kala Lloyd MD [address] [place] [address] PCP - NOMS Krysta [facility] 06/10/23 Kaylie Chavez, FIELD REIMBURSEMENT MANAGER [address] [place] [address] Nurse Practitioner Family Medicine 08/07/22 [facility] [address] [place] [address] Behavioral Health 03/18/24 Veterinarian Poultry Relationship Specialty Start Date End Date Kala Lloyd MD [address] [place] [address] PCP - General Family Medicine 08/07/22 Kala Lloyd MD [address] [place] [address] PCP - NOMS Krysta [facility] 06/10/23 Kaylie Chavez, FIELD REIMBURSEMENT MANAGER [address] [place] [address] Nurse Practitioner Family Medicine 08/07/22 [facility] [address] [place] [address] Behavioral Health 03/18/24 Veterinarian Poultry Relationship Specialty Start Date End Date Kala Lloyd MD [address] [place] [address] PCP - General Family Medicine 08/07/22 Kala Lloyd MD [address] [place] [address] PCP - NOMS Krysta [facility] 06/10/23 Kaylie Chvaez, FIELD REIMBURSEMENT MANAGER [address] [place] [address] Nurse Practitioner Family Medicine 08/07/22 Lindy Valentino [facility] [address] [place] [address] Behavioral Health 03/18/24 Veterinarian Poultry Relationship Specialty Start Date End Date Kaylie Chavez, COILED COIL INSPECTOR-ARTIST MODEL PCP - General Nurse Practitioner 11/20/18 Veterinarian Poultry Relationship Specialty Start Date End Date Kala Lloyd MD [address] [facility] [place] [address] PCP - General Family Medicine 08/07/22 Kala Lloyd MD [address] [facility] [place] [address] PCP - NOMS Krysta [facility] 06/10/23 Kaylie Chavez, FIELD REIMBURSEMENT MANAGER [address] [facility] [place] [address] Nurse Practitioner Family Medicine 08/07/22 Lindy Valentino [facility] [address] [place] [address] Behavioral Health 03/18/24 Veterinarian Poultry Relationship Specialty Start Date End Date Kala Lloyd MD [address] [facility] [place] [address] PCP - General Family Medicine 08/07/22 Kala Lloyd MD [address] [place] [address] PCP - NOMS Keyser [employer] 06/10/23 Kaylie Chavez, FIELD REIMBURSEMENT MANAGER [address] [place] [address] Nurse Practitioner Family Medicine 08/07/22 Lindy Valentino [facility] [address] [place] [address] Behavioral Health 03/18/24 Veterinarian Poultry Relationship Specialty Start Date End Date Kala Lloyd MD [address] [place] [address] PCP - General Family Medicine 08/07/22 Kala Lloyd MD [address] [place] [address] PCP - NOMS Keyser [facility] 06/10/23 Kaylie Chavez NP [address] [place] [address] Nurse Practitioner Family Medicine 08/07/22 Lindy Valentino [facility] [address] [facility] [address] [place] [address] Behavioral Health 03/18/24 Veterinarian Poultry Relationship Specialty Start Date End Date Kala Lloyd MD [address] [place] [address] PCP - General Family Medicine 08/07/22 Kala Lloyd MD [address] [place] [address] PCP - NOMS Keyser [facility] 06/10/23 Kaylie Chavez NP [address] [place] [address] Nurse Practitioner Family Medicine 08/07/22 Lindy Valentino [facility] [address] [place] [address] Behavioral Health 03/18/24 Veterinarian Poultry Relationship Specialty Start Date End Date Kala Lloyd MD [address] [place] [address] PCP - General Family Medicine 08/07/22 Kala Lloyd MD [address] [place] [address] PCP - NOMS Krysta [facility] 06/10/23 Kaylie Chavez NP [address] [place] [address] Nurse Practitioner Family Medicine 08/07/22 Lindy Valentino [facility] [address] [place] [address] Behavioral Health 03/18/24 Name Effective Dates (start - stop) Status Members No Information Veterinarian Poultry Relationship Specialty Start Date End Date Kala Lloyd MD [address] [place] [address] PCP - General Family Medicine 08/07/22 Kala Lloyd MD [address] [place] [address] PCP - NOMS Krysta [facility] 06/10/23 Kaylie Chavez NP [address] [place] [address] Nurse Practitioner Family Medicine 08/07/22 Lindy Valentino [facility] [address] [place] [address] Behavioral Health 03/18/24 Veterinarian Poultry Relationship Specialty Start Date End Date Kaylie Chavez, COILED COIL INSPECTOR-ARTIST MODEL PCP - General Nurse Practitioner 11/20/18 Veterinarian Poultry Relationship Specialty Start Date End Date Kala Lloyd MD [address] [place] [address] PCP - General Family Medicine 08/07/22 Kala Lloyd MD [address] [place] [address] PCP - NOMS Krysta [employer] 06/10/23 Kaylie Chavez FIELD REIMBURSEMENT MANAGER [address] [place] [address] Nurse Practitioner Family Medicine 08/07/22 [facility] [address] [place] [address] Behavioral Health 03/18/24 Veterinarian Poultry Relationship Specialty Start Date End Date Kala Lloyd MD [address] [place] [address] PCP - General Family Medicine 08/07/22 Kala Lloyd MD [address] [place] [address] PCP - NOMS Keyser [employer] 06/10/23 Kaylie Chavez NP [address] [place] [address] Nurse Practitioner Family Medicine 08/07/22 Lindy Valentino [facility] [address] [place] [address] Behavioral Health 03/18/24 Veterinarian Poultry Relationship Specialty Start Date End Date Kala Lloyd MD [address] [facility] [place] [address] PCP - General Family Medicine 08/07/22 Kala Llyod MD [address] [facility] [place] [address] PCP - NOMS Krysta [employer] 06/10/23 Kaylie Chavez FIELD REIMBURSEMENT MANAGER [address] [place] [address] Nurse Practitioner Family Medicine 08/07/22 Lindy Valentino [facility] [address] [place] [address] Behavioral Health 03/18/24 Veterinarian Poultry Relationship Specialty Start Date End Date Kaylie Chavez, COILED COIL INSPECTOR-ARTIST MODEL PCP - General Nurse Practitioner 11/20/18 Veterinarian Poultry Relationship Specialty Start Date End Date Kala Lloyd MD [address] [facility] [place] [address] PCP - General Family Medicine 08/07/22 Kala Lloyd MD [address] [facility] [place] [address] PCP - NOMS Krysta [employer] 06/10/23 Kaylie Chavez FIELD REIMBURSEMENT MANAGER [address] [place] [address] Nurse Practitioner Family Medicine 08/07/22 Lindy Valentino [facility] [address] [facility] [address] [place] [address] Behavioral Health 03/18/24 Veterinarian Poultry Relationship Specialty Start Date End Date Kala Lloyd MD [address] [place] [address] PCP - General Family Medicine 08/07/22 Kala Lloyd MD [address] [place] [address] PCP - NOMS Krysta [employer] 06/10/23 Kaylie Chavez NP [address] [facility] [place] [address] Nurse Practitioner Family Medicine 08/07/22 Lindy Valentino [facility] [address] [facility] [address] [place] [address] Behavioral Health 03/18/24 Veterinarian Poultry Relationship Specialty Start Date End Date Kala Lloyd MD [address] [place] [address] PCP - General Family Medicine 08/07/22 Kala Lloyd MD [address] [place] [facility] [address] PCP - NOMS Krysta [employer] 06/10/23 Kaylie Chavez NP [address] [facility] [place] [address] Nurse Practitioner Family Medicine 08/07/22 Lindy Valentino [facility] [address] [place] [address] Behavioral Health 03/18/24 Veterinarian Poultry Relationship Specialty Start Date End Date Kala Lloyd MD [address] [place] [address] PCP - General Family Medicine 08/07/22 Kala Lloyd MD [address] [place] [address] PCP - NOMS Krysta [employer] 06/10/23 Kaylie Chavez, FIELD REIMBURSEMENT MANAGER [address] [place] [address] Nurse Practitioner Family Medicine 08/07/22 Lindy Valentino [facility] [address] [place] [address] Behavioral Health 03/18/24 Laverne Espinal, DIRECTOR OF CONVENTION SERVICES [address] [place] [address] Hypoid Gear Generator Family Medicine 09/07/24 Veterinarian Poultry Relationship Specialty Start Date End Date Kala Lloyd MD [address] [place] [address] PCP - General Family Medicine 08/07/22 Kala Lloyd MD [address] [place] [address] PCP - NOMS Krysta [facility] 06/10/23 Kaylie Chavez, FIELD REIMBURSEMENT MANAGER [address] [place] [address] Nurse Practitioner Family Medicine 08/07/22 Lindy Valentino [facility] [address] [place] [address] Behavioral Health 03/18/24 Laverne Espinal, DIRECTOR OF CONVENTION SERVICES [address] [place] [address] Hypoid Gear Generator Family Medicine 09/07/24 Veterinarian Poultry Relationship Specialty Start Date End Date Kaylie Chavez COILED COIL INSPECTOR-ARTIST MODEL PCP - General Nurse Practitioner 11/20/18 Veterinarian Poultry Relationship Specialty Start Date End Date Kala Lloyd MD [address] [place] [address] PCP - General Family Medicine 08/07/22 Kala Lloyd MD [facility] [place] [address] PCP - NOMS Keyser [employer]IE[employer] 06/10/23 Kaylie Chavez NP [address] [place] [address] Nurse Practitioner Family Medicine 08/07/22 Lindy Valentino [facility] [address] [facility] [address] [place] [address] Behavioral Health 03/18/24 Laverne Espinal, DIRECTOR OF CONVENTION SERVICES [address] [place] [address] Hypoid Gear Generator Family Medicine 09/07/24 Veterinarian Poultry Relationship Specialty Start Date End Date Kaylie Chavez APRN-ARTIST MODEL PCP - General Nurse Practitioner 11/20/18 Veterinarian Poultry Relationship Specialty Start Date End Date Kala Lloyd MD [address] [place] [address] PCP - General Family Medicine 08/07/22 Kala Lloyd MD [address] [place] [address] PCP - NOMS Krysta [facility] 06/10/23 Kaylie Chavez, FIELD REIMBURSEMENT MANAGER [address] [place] [address] Nurse Practitioner Family Medicine 08/07/22 Lindy Valentino [facility] [address] [place] [address] Behavioral Health 03/18/24 Laverne Espinal LSW [address] [place] [address] Hypoid Gear Generator Family Medicine 09/07/24 Veterinarian Poultry Relationship Specialty Start Date End Date Kala Lloyd MD [address] [place] [facility] [address] PCP - General Family Medicine 08/07/22 Kala Lloyd MD [address] [place] [address] PCP - NOMS Krysta [employer] 06/10/23 Kaylie Chavez, FIELD REIMBURSEMENT MANAGER [address] [place] [address] Nurse Practitioner Family Medicine 08/07/22 Lindy Valentino [facility] [address] [place] [address] Behavioral Health 03/18/24 Laverne Espinal LSW [address] [place] [address] Hypoid Gear Generator Family Medicine 09/07/24 Veterinarian Poultry Relationship Specialty Start Date End Date Kala Lloyd MD [address] [facility] [place] [address] PCP - General Family Medicine 08/07/22 Kala Lloyd MD [address] [facility] [place] [address] PCP - NOMS Krysta [employer] 06/10/23 Kaylie Chavez, FIELD REIMBURSEMENT MANAGER [address] [facility] [place] [address] Nurse Practitioner Family Medicine 08/07/22 Lindy Valentino [facility] [address] [place] [address] Behavioral Health 03/18/24 Laverne Espinal, DIRECTOR OF CONVENTION SERVICES [address] [place] [address] Hypoid Gear Generator Family Medicine 09/07/24 Veterinarian Poultry Relationship Specialty Start Date End Date Kala Lloyd MD [address] [facility] [place] [address] PCP - General Family Medicine 08/07/22 Kala Lloyd MD [address] [facility] [place] [address] PCP - NOMS Krysta [employer]IE[employer] 06/10/23 Kaylie Chavez, FIELD REIMBURSEMENT MANAGER [address] [facility] [place] [address] Nurse Practitioner Family Medicine 08/07/22 Lindy Valentino [facility] [address] [place] [address] Behavioral Health 03/18/24 Laverne Espinal, DIRECTOR OF CONVENTION SERVICES [address] [place] [address] Hypoid Gear Generator Family Medicine 09/07/24 Veterinarian Poultry Relationship Specialty Start Date End Date Kala Lloyd MD [address] [place] [facility] [place] [address] PCP - General Family Medicine 08/07/22 Kala Lloyd MD [address] [facility] [place] [address] PCP - NOMS Krysta [employer]IE[employer] 06/10/23 Kaylie Chavez FIELD REIMBURSEMENT MANAGER [address] [facility] [place] [address] Nurse Practitioner Family Medicine 08/07/22 Lindy Valentino, [facility] [address] [place] [address] Behavioral Health 03/18/24 Laverne Espinal, DIRECTOR OF CONVENTION SERVICES [address] [place] [facility] [place] [address] Hypoid Gear Generator Family Medicine 09/07/24 Veterinarian Poultry Relationship Specialty Start Date End Date Kala Lloyd MD [address] [place] [facility] [place] [address] PCP - General Family Medicine 08/07/22 Kala Lloyd MD [address] [place] [address] PCP - NOMS Krysta [employer] 06/10/23 Kaylie Chavez, FIELD REIMBURSEMENT MANAGER [address] [facility] [place] [address] Nurse Practitioner Family Medicine 08/07/22 Lindy Valentino [facility] [address] [place] [address] Behavioral Health 03/18/24 Laverne Espinal, DIRECTOR OF CONVENTION SERVICES [address] [place] [address] Hypoid Gear Generator Family Medicine 09/07/24 Veterinarian Poultry Relationship Specialty Start Date End Date Kala Lloyd MD [address] [place] [address] PCP - General Family Medicine 08/07/22 Kala Lloyd MD [address] [place] [address] PCP - NOMS Krysta [facility] 06/10/23 Kaylie Chavez FIELD REIMBURSEMENT MANAGER [address] [place] [address] Nurse Practitioner Family Medicine 08/07/22 Lindy Valentino, [facility] [address] [facility] [address] [place] [address] Behavioral Health 03/18/24 Laverne Espinal, DIRECTOR OF CONVENTION SERVICES [address] [place] [id number] [facility] [facility] Family Medicine 09/07/24 Veterinarian Poultry Relationship Specialty Start Date End Date Laverne Porter DO [address] [place] [address] PCP - General Family Medicine 11/17/24 Veterinarian Poultry Relationship Specialty Start Date End Date Laverne Porter DO [address] [place] [address] PCP - General Family Medicine 11/17/24 Veterinarian Poultry Relationship Specialty Start Date End Date Kala Lloyd MD [address] [place] [facility] [place] [address] PCP - General Family Medicine 08/07/22 Kala Lloyd MD [address] [place] [address] PCP - [facility] Krysta PBX WIRE CHIEF 06/10/23 Kaylie Chavez, FIELD REIMBURSEMENT MANAGER [address] [facility] [place] [address] Nurse Practitioner Family Medicine 08/07/22 Lindy Valentino [facility] [address] [place] [address] Behavioral Health 03/18/24 Laverne Espinal, DIRECTOR OF CONVENTION SERVICES [address] [place] [facility] [place] [address] [employer] Generator Family Medicine 09/07/24 Veterinarian Poultry Relationship Specialty Start Date End Date Kala Lloyd MD [address] [place] [facility] [place] [address] PCP - General Family Medicine 08/07/22 Kala Lloyd MD [address] [place] [address] PCP - NOMPamela Chaparro [facility] 06/10/23 Kaylie Chavez, FIELD REIMBURSEMENT MANAGER [address] [place] [facility] [place] [address] Nurse Practitioner Family Medicine 08/07/22 Lindy Valentino [facility] [address] [place] [address] Behavioral Health 03/18/24 Laverne Espinal, DIRECTOR OF CONVENTION SERVICES [address] [place] [facility] [place] [address] Hypoid Gear Generator Family Medicine 09/07/24 Veterinarian Poultry Relationship Specialty Start Date End Date Kala Lloyd MD [address] [facility] [place] [address] PCP - General Family Medicine 08/07/22 Kala Lloyd MD [address] [facility] [place] [address] PCP - [facility] Krysta PBX WIRE CHIEF 06/10/23 Kaylie Chavez, FIELD REIMBURSEMENT MANAGER [facility] [place] [address] Nurse Practitioner Family Medicine 08/07/22 Lindy Valentino [facility] [address] [place] [address] Behavioral Health 03/18/24 Laverne Espinal, [facility] [address] [place] [facility] [place] [address] Hypoid Gear Generator Family Medicine 09/07/24 Veterinarian Poultry Relationship Specialty Start Date End Date Kala Lloyd MD [address] [facility] [place] [address] PCP - General Family Medicine 08/07/22 Kala Lloyd MD [address] [facility] [place] [address] PCP - [facility] Krysta PBX WIRE CHIEF 06/10/23 Kaylie Chavez, FIELD REIMBURSEMENT MANAGER [address] [place] [address] Nurse Practitioner Family Medicine 08/07/22 Lindy Valentino [facility] [address] [place] [address] Behavioral Health 03/18/24 Laverne Espinal, DIRECTOR OF CONVENTION SERVICES [address] [place] [address] Hypoid Gear Generator Family Medicine 09/07/24 Veterinarian Poultry Relationship Specialty Start Date End Date Kala Lloyd MD [address] [place] [address] PCP - General Family Medicine 08/07/22 Kala Lloyd MD [address] [place] [address] PCP - [facility] Krysta [facility] 06/10/23 Kaylie Chavez NP [address] [place] [address] Nurse Practitioner Family Medicine 08/07/22 Lindy Valentino [facility] [address] [facility] [address] [place] [address] Behavioral Health 03/18/24 Laverne Espinal, DIRECTOR OF CONVENTION SERVICES [address] [place] [address] Hyp[employer] Gear Generator Family Medicine 09/07/24 INFORMATION SOURCE (unrecogn ized section and content) DATE CREATED AUTHOR 03/13/2022 [facility] dical Specialist DATE CREATED AUTHOR AUTHOR'S ORGANIZ ATION 03/22/2022 [facility] DATE CREATED AUTHOR AUTHOR'S ORGANIZ ATION 07/22/2022 Karmen Josselin [facility] DATE CREATED AUTHOR AUTHOR'S ORGANIZ ATION 10/03/2023 [facility] DATE CREATED AUTHOR AUTHOR'S ORGANIZ ATION 11/19/2024 [facility] DATE CREATED AUTHOR AUTHOR'S ORGANIZ ATION 11/26/2024 [facility] DATE CREATED AUTHOR AUTHOR'S ORGANIZ ATION 12/02/2024 [facility] dical Specialists EPIC Goals (unrecognized section [...] BE BASED ON THE PRIMARY CLINICAL RECORDS. [employer] provides no warranty or guarantee of the accuracy or completeness of information in this document.
[2024-12-14 17:42] LABS: Alanine Aminotransferase 32 U/L (14-59); Albumin Globulin Ratio 0.7; Albumin Level 2.9 g/dL (3.4-5.0); Alkaline Phosphatase 61 U/L (46-116); Aspartate Amino Transferase 9 U/L (15-37); Globulin 4.0 g/dL; Total Protein 6.9 g/dL (6.4-8.2)
== END 2024-12-14 13:05 | disposition home or self-care (01) ==
PROVIDERS: PCP Family Medicine; Visit Provider Registered Nurse Psychiatric/Mental Health
DX: Z79.899 Other long term (current) drug therapy (principal)
CPT/HCPCS: 36415; 80076; 80164

== ENCOUNTER 2025-01-06 12:29 | Outpatient (OUT) | payer MEDICAID, SELFPAY ==
--- OUTSIDE RECORDS SUMMARY | 2024-12-28 13:40 | XMS_ITS | Encounter Summary ---
Demographics Address [address] [address] Mobile Phone Home Phone Email Address m Preferred Language en Marital Status Unmarried Gnosticist Affiliation Unknown Race White Ethnic Group Not or Lati no Author Organization [facility] Address [address] [place] [address] Care Team Providers Care Desk Attendant Name Role Phone Kala Lloyd MD Primary Care Provider [phone] Kaylie Chavez MANUSCRIPT EDITOR Unavailable Kala Lloyd MD Unavailable Lindy Valentino [facility] Unavailable Laverne Espinal MANAGED CARE ANALYST Unavailable [phone] Encounter Details DateTypeDepartmentCare Team (Latest Contact Info)Vocggzgqhkv45/20/2025 1:40 PM EDTOffice Visit [facility] [address] [place] [address] Danii Manley MD [address] [place] [address] Hypercalcemia (Primary Dx); Vitamin D deficiency; Hypomagnesemia; Abnormal kidney function; Adrenal nodule (HCC); Benign neoplasm of parathyroid gland Social History Tobacco UseTypesPacks/DayYears UsedDateSmoking Tobacco: Every DayCigarettes0.315 Smokeless Tobacco: Never Comments:Smokes a pack a wee k. 2-3 cigarettes a day. Alcohol UseStandard Drinks/WeekCommentsNever0 (1 standard drink = 0.6 oz pure alcohol)caffeine intake: more than 4 cups per day/ 2 pots of coffee.AUDIT-C AnswerDate RecordedQ1: How often do you have a drink containing alcohol?Never 05/19/2024Q2: How many drinks containing alcohol do you have on a typical day when you are drinking?Patient does not drink05/19/2024Q3: How often do you have six or more drinks on one occasion?Never05/19/2024PHQ-2AnswerDate Recorded Patient Health Questionnaire-2 Jnwuh524EducationAnswerDate RecordedWhat is the highest level of school you have completed or the highest degree you have received?High school zgnfmfib06/12/2023CommentsUnknownSex and Gender InformationValueDate RecordedSex Assigned at BirthNot on fileLegal SexFemale 05/23/2022 6:48 PM EDTGender TlpodmyoAjcvbh27/15/2023 6:48 PM EDTSexual OrientationNot on fileOccupationIndustryJob Start DateJob End DateDeli 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 Northwell HealthNot on fileNot on fileNot on filedocumented as of this encounter Last Filed Vital Signs Vital SignReadingTime TakenCommentsBlood Ydnsnihq835/7610 1:20 PM EDT Vadco141212/28/2024 1:20 PM EDTTemperature--Respiratory Htfw6972 1:20 PM EDTOxygen Jqrixxossh87%12/28/2024 1:20 PM EDTInhaled Oxygen Concentration-- Nctxqc52.7 kg (200 lb)12/28/2024 1:20 PM LJAPqvlbw221.6 cm (5' 4 )12/28/2024 1:20 PM EDTBody Mass Index34.331 1:20 PM EDTdocumented in this encounter Progress Notes * Danii Manley MD - 12/28/2024 1:40 PM EDT Radha Jones is a 54 y.o. female No ref. provider found presents with chief complaint of No chief complaint on file. HPI: Interim history: 12/2024 Followup visit: 12/28/2024 for labs. On Vitamin-D 50,000 once a week, on magnesium 400 mg twice a day, they found incidentally 1.6 mm nodule in left adrenal Hounsfield units 14. Lab pending Interim history: 06/2024 Followup visit: 06/29/2024 for [...] 2022 due to leukocytosis and hypercalcemia by weight checker. Nonspecific ___ done within normal limits. Now she is not taking any calcium supplement or multivitamin D. SUBJECTIVE: MEDICATIONS: Current Outpatient Medications Medication Instructions albuterol HFA 90 mcg/act inhaler 2 puffs, Inhalation, Every 4 hours PRN aMILoride (MIDAMOR) 5 mg, Daily atorvastatin (LIPITOR) 80 mg, Oral, Daily Blood Glucose Monitoring Suppl ([employer] VerLocondo.jp) w/Device kit Fsbs daily cetirizine (ZYRTEC) 10 mg, Oral, Daily chlorproMAZINE (THORAZINE) 600 mg, Nightly cholecalciferol (VITAMIN D-3) 50,000 Units, Weekly Continuous Glucose Chrome Plater (Dexcom G7 Chrome Plater) device 1 Device, Does not apply, See admin instructions Continuous Glucose Sensor (Dexcom G7 Sensor) misc 1 Device, Subcutaneous, Every 10 days cyanocobalamin (VITAMIN B-12) 100 mcg, Daily desvenlafaxine (PRISTIQ) 100 mg, Every 24 hours divalproex (Depakote ER) 500 MG 24 hr tablet Take by mouth 3 tablets at bedtime doxepin (SINEQUAN) 50 mg, Nightly EPINEPHrine (EpiPen 2-Dre) 0.3 MG/0.3ML injection syringe 1 Syringe, Once ergocalciferol (VITAMIN D2) 1.25 mg, Oral, Every 7 days etodolac (LODINE) 300 mg, Every 8 hours ezetimibe (ZETIA) 10 mg, Oral, Daily fluticasone (Flonase) 50 MCG/ACT nasal spray 2 sprays, Each Nostril, Daily gabapentin (NEURONTIN) 800 mg, 4 times daily glucose blood ([employer] Verio) test strip Fsbs daily insulin aspart (NovoLOG FlexPen ReliOn) 100 UNIT/ML pen 20 units small meals , 40 units large mealsplus correction 1:30 > 150 mg/dl (max daily 100 units) insulin pen needle (BD Pen Needle Lizbeth 2nd Gen) 32G x 4 mm [facility] USE 1 SUBCUTANEOUSLY 4 TIMES DAILY ketorolac (Acular) 0.4 % ophthalmic solution 1 drop, 3 times daily Lancets ([employer] Delica Plus Btzckz70L) [facility] Fsbs daily Lantus SoloStar 35 Units, Subcutaneous, 2 times daily lisinopril 20 mg, Oral, Daily LORazepam (ATIVAN) 1 mg, 3 times daily PRN magnesium oxide (MAGNESIUM-OXIDE) 400 mg, Oral, 2 times daily metFORMIN (GLUCOPHAGE) 1,000 mg, Oral, 2 times daily methocarbamol (ROBAXIN) 500 mg, Every 8 hours PRN montelukast (SINGULAIR) 10 mg, Oral, Nightly pantoprazole (PROTONIX) 40 mg, Oral, Every 12 hours rOPINIRole (REQUIP) 0.25 mg, Nightly PRN tiotropium-olodaterol (Stiolto Respimat) 2.5-2.5 MCG/ACT aerosol solution inhaler 2 Inhalation , Inhalation, Daily Trulicity 0.75 mg, Subcutaneous, Weekly ALLERGIES: Allergies Allergen Reactions Onion Anaphylaxis Acetaminophen Unknown Coconut Flavoring Agent (Non-Screening) Unknown Codeine Unknown Latex Unknown Dapagliflozin Rash Past Medical History: Diagnosis Date Anxiety Arthritis Asthma (HCC) Benign neoplasm of parathyroid gland Bipolar disorder, current episode depressed, moderate (HCC) Carpal tunnel syndrome, right Chronic bronchitis (HCC) Chronic cholecystitis 2016 Diabetes mellitus, type II (HCC) Elevated liver [...] SURGICAL HISTORY 02/2022 LEFT BUNION 2,3, TOES GA REMOVAL OF OVARY/TUBE(S) 07/2015 REVIEW OF SYMPTOMS: 14 POINT OF SYSTEM REVIEWED AND NEGATIVE OBJECTIVE: Lab Results Component Value Date TSH 1.37 01/21/2023 Visit Vitals BP 144/76 Pulse 77 Resp 16 Ht 5' 4 Wt 200 lb SpO2 98% BMI 34.33 kg/m?? Smoking Status Every Day BSA 2.02 m?? ASSESSMENT AND PLAN: Assessment/Plan Diagnoses and all orders for this visit: Hypercalcemia - Magnesium; Future - PTH, intact and calcium; Future - Renal function panel; Future - Vitamin D 25 hydroxy Total; Future Lab still pending, she is off calcium supplements Vitamin D deficiency - Vitamin D 25 hydroxy Total; Future Continue with 50,000 once a week Hypomagnesemia - MAGnesium-Oxide 400 (240 Mg) MG tablet; Take 1 tablet (400 mg) by mouth in the morning and 1 tablet (400 mg) before bedtime. - Magnesium; Future We will start her back on 400 mg b.I.d.. Abnormal kidney function - PTH, intact and calcium; Future Adrenal nodule (HCC) Benign neoplasm of parathyroid gland 1.6 cm left adrenal nodule with Hounsfield units 14, we will rule out [place], pheochromocytoma, primary hyperaldosteronism Follow up in about 6 months (around 06/28/2025). documented in this encounter Plan of Treatment DateTypeDepartmentCare Team (Latest Contact Info)Ogryibiqiub66/03/2025 3:30 PM ESTTreatment [facility] [address] [facility] [address] [place] [address] Samuel Wright, MEDICINE AND HEALTH SERVICE MANAGER 01/21/2025 3:20 PM ESTOffice Visit [facility] [address] [facility] [address] [place] [address] Eliazar De Los Santos DPM [address] [facility] [address] [place] [address] 02/02/2025 3:00 PM ESTOffice Visit [facility] [address] [place] [phone] Kala Lloyd MD [address] [place] [address] 03/02/2025 1:00 PM ESTOffice Visit [facility] [address] [facility] [address] [place] [address] Laverne Carolina DO [address] [facility] [address] [place] [address] 06/28/2025 2:00 PM EDTOffice Visit [facility] [address] [place] [address] Danii Manley MD [address] [place] [address] NameTypePriorityAssociated DiagnosesOrder ScheduleMagnesiumLabRoutine Hypercalcemia Hypomagnesemia Expected: 12/28/2024 (Approximate), Expires: 12/28/2025PTH, intact and calcium LabRoutine Hypercalcemia Abnormal kidney function Expected: 12/28/2024 (Approximate), Expires: 12/28/2025Renal function panelLab Routine Hypercalcemia Expected: 12/28/2024 (Approximate), Expires: 12/28/2025Vitamin D 25 hydroxy TotalLabRoutine Hypercalcemia Vitamin D deficiency Expected: 12/28/2024 (Approximate), Expires: 12/28/2025documented as of this encounter Visit Diagnoses Diagnosis Hypercalcemia- Primary Vitamin D deficiency Hypomagnesemia Disorders of magnesium metabolism Abnormal kidney function Nonspecific abnormal results of kidney function study Adrenal nodule (HCC) Benign neoplasm of adrenal gland Benign neoplasm of parathyroid gland documented in this encounter Additional Health Concerns AssessmentNoted TimePHQ-9 Depression Total Score: 3:54 PM EDT documented as of this encounter Care Teams Team MemberRelationshipSpecialtyStart DateEnd Date Kala Lloyd MD [address] [place] [address] PCP - GeneralFamily Medicine08/07/22 Kala Lloyd MD [address] [place] [address] PCP - LIANA Chaparro [facility]06/10/23 Kaylie Chavez NP [address] [place] [address] Nurse PractitionerFamily Medicine08/07/22 Lindy Valentino [facility] [address] [place] [address] Behavioral Health03/18/24 Laverne Espinal, MANAGED CARE ANALYST [address] [place] [address] Social WorkerFamily Medicine09/07/24documented as of this encounter
--- OUTSIDE RECORDS SUMMARY | 2024-12-31 14:30 | XMS_ITS | Encounter Summary ---
Demographics Address [address] [address] Mobile Phone Home Phone Email Address m Preferred Language en Marital Status Unmarried Druze Affiliation Unknown Race White Ethnic Group Not or Lati no Author Organization [facility] Address [address] [place] [address] Care Team Providers Care Gunite Nozzle Operator Name Role Phone Kala Lloyd MD Primary Care Provider [phone] Kaylie Chavez DIRECTOR SOFTWARE QUALITY ASSURANCE Unavailable Kala Lloyd MD Unavailable Lindy Valentino [facility] Unavailable [phone] Laverne Espinal SPRING INSPECTOR Unavailable [phone] Reason for Visit * Rehabilitation - Outpatient (Routine) - AuthorizedSpecialtyDiagnoses / ProceduresReferred By ContactReferred To ContactPhysical Therapy Diagnoses Piriformis syndrome of left side Procedures AR OFFICE/OUTPATIENT [facility] 60 MINUTES Kala Lloyd MD [address] [place] [address] Phone: tel: fax: Marylou Lay PT Referral IDStatusReasonStart DateExpiration DateVisits RequestedVisits [id number] Specialty Services Required 30 Encounter Details DateTypeDepartmentCare Team (Latest Contact Info)Ccgitcyhcdf80/23/2025 2:30 PM EDTTreatment [facility] [address] [place] [address] Leatha Webster PTA Piriformis syndrome of left side (Primary Dx) Social History Tobacco UseTypesPacks/DayYears UsedDateSmoking Tobacco: Every [...] on one occasion?Never05/19/2024PHQ-2AnswerDate Recorded Patient Health Questionnaire-2 Tvvkf540EducationAnswerDate RecordedWhat is the highest level of school you have completed or the highest degree you have received?High school laxnfkss53/12/2023CommentsUnknownSex and Gender InformationValueDate RecordedSex Assigned at BirthNot on fileLegal SexFemale 05/23/2022 6:48 PM EDTGender FgrqulwlDqsdqm19/15/2023 6:48 PM EDTSexual OrientationNot on fileOccupationIndustryJob Start DateJob End DateDeli 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 [facility] HospitalNot on fileNot on fileNot on filedocumented as of this encounter Progress Notes * Leatha Webster, BASEBOARD HEATING INSTALLER - 12/31/2024 2:30 PM EDT Physical Therapy Treatment Visit Patient Name: Radha Jones Today's Date: 12/31/2024 Encounter Diagnosis Name Primary? Piriformis syndrome of left side Yes Visit number: 7 Timed Code Treatment Minutes: 40 minutes Total Treatment Time: 40 minutes Time In: 2:25 PM Time Out: 3:05 PM History: Pt to states she has a [...] has received multiple injection. Last injection was Berta 18th. States she felt good for a few days; however, her mother almost fell and she had to assist her down. Also states she has to lift her mom frequently from the chair. States currently has numbness in left knee that runs down to her foot, mostly to her big toe. Precautions: Monona Subjective: Pt reports increased left leg weakness and plans on scheduling more visits for continued improvements. Pain: Pt reports 2/10 of LE pain twingy with certain activity, like lifting something. Objective: PT Evaluation (10/21/2024) LUMBAR SPINE AROM: [...] needed. HP x PRN in sitting Assessment: Pt is 53 y/o female with chronic low back and bilateral buttock pain. Pt with limited trunk extension and left SB. Decrease bilateral LE strength, left weaker than right. Pt struggled with LAQ on left leg d/t lack of strength with #4/ Left LE started to fatigue and unable to complete full range of extension. Cues given on leg press to push evenly through bilateral LE.Pt will benefit from further PT to improve core and hip strength to support lumbar spine. Barrier to progress is being primary caregiver to mother and performing transfers. RTD Jan 05 with follow injections. Outcome Measure: Lower Extremity Functional Scale (LEFS): 34/80, (12/01/24) 21/80 Rehab Diagnosis: low back pain, left LE pain, decrease ROM and mobility, difficulty walking Short Term Goal: To be met in 2 weeks Goal 1: Pt to be instructed in home exercise program. Tone Artist Apprentice Goals: To be met in 10 weeks Goal 1: Pt to report independence and compliance with home program. Goal 2: Pt to report pain no greater than 3/10 with function tasks, ADL's, and work related activities. Goal 3: Pt to have full trunk ROM without complaints of increase pain at end ranges to assist with functional tasks. Goal 4: Pt to score no less [...] POC medically necessary. Please sign below. Date: documented in this encounter Plan of Treatment DateTypeDepartmentCare Team (Latest Contact Info)Kpypfptzroz90/03/2025 3:30 PM ESTTreatment [facility] [address] [place] [address] Samuel Wright PTA 01/21/2025 3:20 PM ESTOffice Visit [facility] [address] [place] [address] Eliazar De Los Santos, DPAvtar [address] [facility] [address] [place] [address] 02/02/2025 3:00 PM ESTOffice Visit [facility] [address] [place] [phone] Kala Lloyd MD [address] [place] [address] 03/02/2025 1:00 PM ESTOffice Visit [facility] [address] [facility] [address] [place] [phone] Laverne Carolina, [address] [facility] [address] [place] [address] 06/28/2025 2:00 PM EDTOffice Visit [facility] [address] [place] [address] Danii Manley MD [address] [place] [address] documented as of this encounter Visit Diagnoses Diagnosis Piriformis syndrome of left side- Primary documented in this encounter Additional Health Concerns AssessmentNoted TimePQ-9 Depression Total Score: 3:54 PM EDT documented as of this encounter Care Teams Team MemberRelationshipSpecialtyStart DateEnd Date Kala Lloyd MD [address] [place], [place] [id number] PCP - GeneralFamily Medicine08/07/22 Kala Lloyd MD [address] [place] [address] PCP - LIANA Chaparro [facility]06/10/23 Kaylie Chavez, AKILAH [address] [place] [address] Nurse PractitionerFamily Medicine08/07/22 Lindy Valentino, [facility] [address] [place] [address] Behavioral Health03/18/24 Laverne Espinal LSW [address] [place] [address] Social WorkerFamily Medicine09/07/24documented as of this encounter
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
--- OUTSIDE RECORDS SUMMARY | 2025-01-06 12:35 | XMS_ITS | Encounter Summary ---
Author Organization [employer] tem Address [id number] [address] [place] [address] Care Team Providers Care Chrome Tanner Name Role Phone Laverne Carolina Primary Care Provider [phone] Encounter Details DateTypeDepartmentCare Team (Latest Contact Info)Bdbkexxjzaw54/28/2025Travel Social History Tobacco UseTypesPacks/DayYears UsedDateSmoking Tobacco: Every QlyBlquoipfhi853 Smokeless Tobacco: Never Comments:One pack per week Alcohol UseStandard Drinks/WeekCommentsNever0 (1 standard drink = 0.6 oz pure alcohol)AUDIT-CAnswerDate RecordedFrequency of Alcohol ConsumptionNever 12/31/2018Average Number of DrinksNot on file12/31/2018Frequency of Binge DrinkingNot on file12/31/2018ChildcareAnswerDate RecordedChildcareUnknown 08/20/2018EmploymentAnswerDate MvlfsbiyKdhccvtzbmTzulpxx06/12/2019Hunger ScreeningAnswerDate RecordedWithin the past 12 months we worried whether our food would run out before we got money to buy more.Never True01/05/2025Within the past 12 months the food we bought just didn't last and we didn't have money to get more.Never True01/05/2025Purpose - LifeAnswerDate RecordedPurpose and direction in coxoZtdbqdr23/11/2021CommentsNoSex and Gender Information ValueDate RecordedSex Assigned at FbokrGjenkj87/14/2023 1:17 PM ESTLegal Sex Cnccig5010/14/2014 11:44 AM EDTGender UwtqxpqxLqafda94/14/2023 1:17 PM ESTSexual OrientationChoose not to vykjbyqs11/14/2023 1:17 PM ESTdocumented as of this encounter Plan of Treatment DateTypeDepartmentCare Team (Latest Contact Info)Qvawmboaegh65/21/2025 10:28 AM ESTHospital Encounter [facility] [address] [place] [address] Reymundo Giron MD [address], [place] [address] 01/29/2025 10:28 AM EST - 01/29/2025 10:35 AM ESTSurgery [facility] [address] [place] [address] Reymundo Giron MD [address] [place] [address] INJECTION BLOCK SACROILIAC JOINT [[id number] (CPT??)]02/25/2025 1:15 PM ESTOffice Visit [facility] [address] [place] [address] Ricky Miles PA [address] [facility] [place] [address] NamePriorityAssociated DiagnosesDate/TimeINJECTION BLOCK SACROILIAC JOINT Disorder of sacrum 01/29/2025 10:28 AM ESTdocumented as of this encounter Visit Diagnoses Not on filedocumented in this encounter Care Teams Team MemberRelationshipSpecialtyStart DateEnd Date Laverne Carolina DO [address] [place] [address] PCP - GeneralFamily Medicine11/17/24documented as of this encounter
--- OUTSIDE RECORDS SUMMARY | 2025-01-06 12:35 | XMS_ITS | Encounter Summary ---
Demographics Address [address] [address] Mobile Phone Home Phone Email Address m Preferred Language en Marital Status Unmarried Anabaptism Affiliation Unknown Race White Ethnic Group Not or Lati no Author Organization [facility] Address [address] [facility] [place] [address] Care Team Providers Care Online Content Coordinator Name Role Phone Kala Lloyd MD Primary Care Provider [phone] Kaylie Chavez GRINDER DRESSER Unavailable Kala Lloyd MD Unavailable Lindy Valentino [facility] Unavailable [phone] Laverne Espinal HEAD NURSE Unavailable [phone] Encounter Details DateTypeDepartmentCare Team (Latest Contact Info)Vcfontzdwjt57/20/2025Bamboo flowsheet [facility] [place] [facility] [address] [place] [phone] Danii Manley MD [address] [place] [address] Social History Tobacco UseTypesPacks/DayYears UsedDateSmoking Tobacco: Every [...] on one occasion?Never05/19/2024PHQ-2AnswerDate Recorded Patient Health Questionnaire-2 Gmdeq797EducationAnswerDate RecordedWhat is the highest level of school you have completed or the highest degree you have received?High school zlabgwmi73/12/2023CommentsUnknownSex and Gender InformationValueDate RecordedSex Assigned at BirthNot on fileLegal SexFemale 05/23/2022 6:48 PM EDTGender JmjgmapqHxsxph43/15/2023 6:48 PM EDTSexual OrientationNot on fileOccupationIndustryJob Start DateJob End DateDeli 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 [facility] HospitalNot on fileNot on fileNot on filedocumented as of this encounter Plan of Treatment DateTypeDepartmentCare Team (Latest Contact Info)Zcyojfdlggu99/03/2025 3:30 PM ESTTreatment [facility] [address] [facility] [address] [place] [address] Samuel Wright, DANITA 01/21/2025 3:20 PM ESTOffice Visit [facility] [address] [facility] [address] [place] [address] Eliazar De Los Santos, DPM [address] [facility] 5 [place] [address] 02/02/2025 3:00 PM ESTOffice Visit [facility] [address] [place] [address] Kala Lloyd MD [address] [place], [place] [address] 03/02/2025 1:00 PM ESTOffice Visit [facility] [address] [facility] [address] [place] [address] Laverne Carolina, [address] [facility] [address] [place] [address] 06/28/2025 2:00 PM EDTOffice Visit [facility] [place] [facility] [address] [place] [phone] Danii Manley MD [address] [place] [address] documented as of this encounter Visit Diagnoses Not on filedocumented in this encounter Additional Health Concerns AssessmentNoted TimePHQ-9 Depression Total Score: 3:54 PM EDT documented as of this encounter Care Teams Team MemberRelationshipSpecialtyStart DateEnd Date Kala Lloyd MD [address] [place] [address] PCP - GeneralFamily Medicine08/07/22 Kala Lloyd MD [address] [place] [address] PCP - [facility] Krysta [facility]06/10/23 Kaylie Chavez, GRINDER DRESSER [address] [place] [address] Nurse PractitionerFamily Medicine08/07/22 Lindy Valentino [facility] [address] [place] [address] Behavioral Health03/18/24 Laverne Espinal, HEAD NURSE [address] [place] [address] Social WorkerFamily Medicine09/07/24documented as of this encounter
--- OUTSIDE RECORDS SUMMARY | 2025-01-06 12:36 | XMS_ITS | Encounter Summary ---
Demographics Address [address] [facility] [address] [place] [address] Mobile Phone Home Phone Email Address m Preferred Language en Marital Status Unmarried Christianity Affiliation Unknown Race White Ethnic Group Not or Lati no Author Organization [facility] Address [address] [place] [address] Care Team Providers Care Licensed And Certified Midwife Name Role Phone Kala Lloyd MD Primary Care Provider [phone] Kaylie Chavez SHOP FOREMAN Unavailable Kala Lolyd MD Unavailable Lindy Valentino [facility] Unavailable Laverne Espinal MINING AND QUARRYING MACHINERY REPAIRER Unavailable [phone] Encounter Details DateTypeDepartmentCare Team (Latest Contact Info)Wvlreqyvnze24/23/2025amboo flowsheet [facility] [address] [place] [address] Leatha Webster, DANITA Social History Tobacco UseTypesPacks/DayYears UsedDateSmoking Tobacco: Every [...] on one occasion?Never05/19/2024PHQ-2AnswerDate Recorded Patient Health Questionnaire-2 Uisnj804EducationAnswerDate RecordedWhat is the highest level of school you have completed or the highest degree you have received?High school oidovmak11/12/2023CommentsUnknownSex and Gender InformationValueDate RecordedSex Assigned at BirthNot on fileLegal SexFemale 05/23/2022 6:48 PM EDTGender OgsqgdodUnnkkv02/15/2023 6:48 PM EDTSexual OrientationNot on fileOccupationIndustryJob Start DateJob End DateDeli 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 [facility] HospitalNot on fileNot on fileNot on filedocumented as of this encounter Plan of Treatment DateTypeDepartmentCare Team (Latest Contact Info)Xjkxlebazlk88/03/2025 3:30 PM ESTTreatment [facility] [address] [place] [address] Samuel Wright PTA 01/21/2025 3:20 PM ESTOffice Visit [facility] [address] [place] [address] Eliazar De Los Santos, DPAvtar [address] [facility] 5 [place] [address] 02/02/2025 3:00 PM ESTOffice Visit [facility] [address] [place] [address] Kala Lloyd MD [address] [place] [address] 03/02/2025 1:00 PM ESTOffice Visit [facility] [address] [facility] [address] [place] [address] Laverne Carolina DO [address] [facility] [address] [place] [address] 06/28/2025 2:00 PM EDTOffice Visit [facility] [address] [place] [address] Danii Manley MD [address] [place] [address] documented as of this encounter Visit Diagnoses Not on filedocumented in this encounter Additional Health Concerns AssessmentNoted TimePHQ-9 Depression Total Score: 3:54 PM EDT documented as of this encounter Care Teams Team MemberRelationshipSpecialtyStart DateEnd Date Kala Lloyd MD [address] [place] [address] PCP - GeneralFamily Medicine08/07/22 Kala Lloyd MD [address] [place] [address] PCP - [facility] Krysta [facility]06/10/23 Kaylie Chavez, SHOP FOREMAN [address] [place] [address] Nurse PractitionerFamily Medicine08/07/22 Lindy Valentino, [facility] [address] [place] [address] Behavioral Health03/18/24 Laverne Espinal, LUCERO [address] [place] [address] Social WorkerFamily Medicine09/07/24documented as of this encounter
--- OUTSIDE RECORDS SUMMARY | 2025-01-06 12:36 | XMS_ITS | Encounter Summary ---
Demographics Address [address] [address] Mobile Phone Home Phone Email Address m Preferred Language en Marital Status Unmarried Jew Affiliation Unknown Race White Ethnic Group Not or Lati no Author Organization [facility] Address [address] [place] [address] Care Team Providers Care Book Sorter Name Role Phone Kala Lloyd MD Primary Care Provider [phone] Kaylie Chavez DIRECTOR PRODUCT SAFETY Unavailable Kala Lloyd MD Unavailable Lindy Valentino [facility] Unavailable Laverne Espinal PRINTING PRESSMAN Unavailable [phone] Encounter Details DateTypeDepartmentCare Team (Latest Contact Info)Alwvumerwqi42/23/2025Travel Social History Tobacco UseTypesPacks/DayYears UsedDateSmoking Tobacco: Every [...] on one occasion?Never05/19/2024PHQ-2AnswerDate Recorded Patient Health Questionnaire-2 Docrj822EducationAnswerDate RecordedWhat is the highest level of school you have completed or the highest degree you have received?High school /12/2023CommentsUnknownSex and Gender InformationValueDate RecordedSex Assigned at BirthNot on fileLegal SexFemale 05/23/2022 6:48 PM EDTGender VznfqlwjMibvmc55/15/2023 6:48 PM EDTSexual OrientationNot on fileOccupationIndustryJob Start DateJob End DateDeli 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 [facility] + HospitalsNot on fileNot on fileNot on filedocumented as of this encounter Plan of Treatment DateTypeDepartmentCare Team (Latest Contact Info)Xmcjpbrbvce22/03/2025 3:30 PM ESTTreatment [facility] [address] [place] [address] Samuel Wright, DANITA 01/21/2025 3:20 PM ESTOffice Visit [facility] [address] [place] [address] Eliazar De Los Santos, SULEMA [address] [facility] 5 [place] [address] 02/02/2025 3:00 PM ESTOffice Visit [facility] [address] [place] [phone] Kala Lloyd MD [address] [place] [address] 03/02/2025 1:00 PM ESTOffice Visit [facility] [address] [place] [address] Laverne Carolina, [address] [place] [address] 06/28/2025 2:00 PM EDTOffice Visit [facility] [address] [place] [phone] Danii Manley MD [address] [place] [address] documented as of this encounter Visit Diagnoses Not on filedocumented in this encounter Additional Health Concerns AssessmentNoted TimePHQ-9 Depression Total Score: 3:54 PM EDT documented as of this encounter Care Teams Team MemberRelationshipSpecialtyStart DateEnd Date Kala Lloyd MD [address] [place] [address] PCP - GeneralFamily Medicine08/07/22 Kala Lloyd MD [address] [place] [address] PCP - [facility] K[facility]a [facility]06/10/23 Kaylie Chavez, DIRECTOR PRODUCT SAFETY [address] [place] [address] Nurse PractitionerFamily Medicine08/07/22 Lindy Valentino, [facility] [address] [place] [address] Behavioral Health03/18/24 Laverne Espinal LSW [address] [place] [address] Social WorkerFamily Medicine09/07/24documented as of this encounter
--- OUTSIDE RECORDS SUMMARY | 2025-01-06 12:36 | XMS_ITS | Encounter Summary ---
Demographics Address [address] [address] Mobile Phone Home Phone Email Address m Preferred Language en Marital Status Unmarried Religion Affiliation Unknown Race White Ethnic Group Not or Lati no Author Organization [facility] Address [address] [place] [address] Care Team Providers Care Disposal Plant Operator Name Role Phone Kala Lloyd MD Primary Care Provider [phone] Kaylie Chavez [facility] Unavailable Kala Lloyd MD Unavailable Lindy Valentino [facility] Unavailable Laverne Espinal [facility] Unavailable Encounter Details DateTypeDepartmentCare Team (Latest Contact Info)Ogcbmfcoodp28/28/2025Patient Outreach [facility] [address] [place] [phone] Laverne Espinal, [facility] [address], [place] [id number] Social History Tobacco UseTypesPacks/DayYears UsedDateSmoking Tobacco: Every [...] on one occasion?Never05/19/2024PHQ-2AnswerDate Recorded Patient Health Questionnaire-2 [id number] RecordedWhat is the highest level of school you have completed or the highest degree you have received?High school kdheufhn59/12/2023CommentsUnknownSex and Gender InformationValueDate RecordedSex Assigned at BirthNot on fileLegal SexFemale 05/23/2022 6:48 PM EDTGender BycwggvgHsdzgb39/15/2023 6:48 PM EDTSexual OrientationNot on fileOccupationIndustryJob Start DateJob End DateDeli 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 [facility] HospitalNot on fileNot on fileNot on filedocumented as of this encounter Progress Notes * LUCERO Ramirez - 01/05/2025 12:00 PM EDT <January 05, 2025, 12:21 - LUCERO Ramirez> Chart reviewed. Called and spoke to pt for CCM monitoring. Pt still has a cough but states it is better. She follows up with pain mgmt today, did not have much improvement from 10/3 epidural injection. Pt continues to work with physical therapy and is now focusing on strengthening left leg. Pt having to lift her mom multiple times daily. She gets little help from family/other household members. Discussed advanced directives, pt does not have POA/LW but is interested in setting up. [facility] can plan on meeting pt at 02/02 OV to complete. Pt voices interest in DNR status, encouraged her to discuss with PCP at upcoming visit. No other needs at this time. documented in this encounter Plan of Treatment DateTypeDepartmentCare Team (Latest Contact Info)Kratjmwkcpj41/03/2025 3:30 PM ESTTreatment [facility] [address] [place] [address] Samuel Wright PTA 01/21/2025 3:20 PM ESTOffice Visit [facility] [address] [place] [address] Eliazar De Los Santos, DPM [address] [facility] [address] [place] [address] 02/02/2025 3:00 PM ESTOffice Visit [facility] [address] [place] [phone] Kala Lloyd MD [address] [place] [address] 03/02/2025 1:00 PM ESTOffice Visit [facility] [address] [place] [address] Laverne Carolina DO [address] [facility] [address] [place] [address] 06/28/2025 2:00 PM EDTOffice Visit [facility] [address] [place] [phone] Danii Manley MD [address] [place] [address] documented as of this encounter Visit Diagnoses Diagnosis Type 2 diabetes mellitus with diabetic polyneuropathy, with long-term current use of insulin (HCC)- Primary Essential (primary) hypertension Unspecified essential hypertension documented in this encounter Additional Health Concerns AssessmentNoted TimePQ-9 Depression Total Score: 3:54 PM EDT documented as of this encounter Care Teams Team MemberRelationshipSpecialtyStart DateEnd Date Kala Lloyd MD [address] [place] [address] PCP - GeneralFamily Medicine08/07/22 Kala Lloyd MD [address] [place] [address] PCP - [facility]06/10/23 Kaylie Chavez, AKILAH [address] [place], [place] [phone] Nurse PractitionerFamily Medicine08/07/22 Lindy Valentino, [facility] [address] [place] [address] Behavioral Health03/18/24 Laverne Espinal LSW [address], [place] [id number] Social WorkerFamily Medicine09/07/24documented as of this encounter
--- OUTSIDE RECORDS SUMMARY | 2025-01-06 12:39 | XMS_ITS | Clinical Summary ---
Demographics Address [address] [address] Mobile Phone Home Phone Email Address m Preferred Language en Marital Status Unmarried Gnosticist Affiliation Unknown Race White Ethnic Group Not or Lati no Author Organization [facility] Address [address] [place] [address] Care Team Providers Care Lease Attendant Name Role Phone Kala Lloyd MD Primary Care Provider [phone] Kaylie Chavez TRANSMISSION TECHNICIAN Unavailable Kala Lloyd MD Unavailable Lindy Valentino [facility] Unavailable Laverne Espinal TREE KILLER Unavailable Allergies Active AllergyReactionsCriticalityNoted DateCommentsAcetaminophenUnknown 4Coconut Flavoring Agent (Non-Screening)Chdvdda80/15/2023CodeineUnknown 8299CucsxddehcfqeXrxnLnw05/15/5752AaanxMtowcax96/15/2023OnionAnaphylaxis High04/25/2023 Medications MedicationSigDispense QuantityRefillsLast FilledStart DateEnd DateStatus chlorproMAZINE (Thorazine) 200 MG tablet Take 600 mg by mouth at bedtimeActive rOPINIRole (Requip) 0.25 MG tablet Take 0.25 mg by mouth as needed at mizniif6704/19/2016Active gabapentin (Neurontin) 800 MG tablet Take 800 mg by mouth in the morning and 800 mg at noon and 800 mg in the evening and 800 mg before bedtime.Active EPINEPHrine (EpiPen 2-Dre) 0.3 MG/0.3ML injection syringe Inject 1 Syringe as directed 1 (one) time11/02/2021ctive doxepin (SINEquan) 50 MG capsule Take 50 mg by mouth at bedtimeActive divalproex (Depakote ER) 500 MG 24 hr tablet Take by mouth 3 tablets at bedtimeActive desvenlafaxine (Pristiq) 100 MG 24 hr tablet 100 mg 1 (one) time each day at the same time Takes 1 tabActive LORazepam (Ativan) 1 MG tablet Take 1 mg by mouth 3 (three) times a day as needed for nqgqrhk8905/14/2023ctive aMILoride (Midamor) 5 MG tablet Take 5 mg by mouth DailyActive Blood Glucose Monitoring Suppl ([employer]) w/Device kit Indications:Type 2 diabetes mellitus with stage 3a chronic kidney disease, with long-term current use of insulin ([facility])Fsbs daily 1 kit 10/21/2023ctive glucose blood ([employer]) test strip Indications:Type 2 diabetes mellitus with stage 3a chronic kidney disease, with long-term current use of insulin ([facility])Fsbs daily 100 strip ctive Lancets ([employer] Delica Plus Kqtdkn49N) [facility] Indications:Type 2 diabetes mellitus with stage 3a chronic kidney disease, with long-term current use of insulin ([facility])Fsbs daily 100 each ctive Continuous Glucose Bat Carrier (Dexcom G7 Bat Carrier) device Indications:Type 2 diabetes mellitus with stage 3a chronic kidney disease, with long-term current use of insulin ([facility])1 Device See administration instructions 1 each 10/22/2023ctive cholecalciferol (Vitamin D-3) 1.25 MG (59743 UT) tablet Take 50,000 Units by mouth 1 (one) time per weekActive tiotropium-olodaterol (Stiolto Respimat) 2.5-2.5 MCG/ACT aerosol solution inhaler Indications:Acute bronchitis, unspecified organism,Chronic diarrheaInhale 2 Inhalation Daily 4 g ctive Continuous Glucose Sensor (Dexcom G7 Sensor) [facility] Indications:Type 2 diabetes mellitus with stage 3a chronic kidney disease, with long-term current use of insulin ([facility])Inject 1 Device under the skin Every 10 (ten) days 9 each 5Active ketorolac (Acular) 0.4 % ophthalmic solution Administer 1 drop into both eyes in the morning and 1 drop in the evening and 1 drop before bedtime.5Active cyanocobalamin (Vitamin B-12) 100 MCG tablet Take 100 mcg by mouth DailyActive cetirizine (ZyrTEC) 10 MG tablet Indications:Seasonal allergic rhinitis due to pollenTake 1 tablet (10 mg) by mouth Daily 90 tablet tive Additional Information Patient taking differently:10 mg Oral Daily,(No times of day reported), Reported on 12/28/2024 fluticasone (Flonase) 50 MCG/ACT nasal spray Indications:Seasonal allergic rhinitis due to pollenAdminister 2 sprays into each nostril Daily 16 g tive Additional Information Patient taking differently:2 spray Each Nostril Daily,(No times of day reported) , Reported on 12/28/2024 ezetimibe (Zetia) 10 MG tablet Indications:Hyperlipidemia, unspecified hyperlipidemia typeTake 1 tablet (10 mg) by mouth Daily 100 tablet ctive Additional Information Patient taking differently:10 mg Oral Daily,(No times of day reported), Reported on 12/28/2024 metFORMIN (Glucophage) 1000 MG tablet Indications:Type 2 diabetes mellitus with peripheral neuropathy (HCC)Take 1 tablet (1,000 mg) by mouth in the morning and 1 tablet (1,000 mg) before bedtime. 200 tablet ctive lisinopril 20 MG tablet Indications:Primary hypertensionTake 1 tablet (20 mg) by mouth Daily 100 tablet ctive Additional Information Patient taking differently:20 mg Oral Daily,(No times of day reported), Reported on 12/28/2024 montelukast (Singulair) 10 MG tablet Indications:Seasonal allergic rhinitis due to pollenTake 1 tablet (10 mg) by mouth at bedtime 100 tablet tive atorvastatin (Lipitor) 80 MG tablet Indications:Mixed hyperlipidemiaTake 1 tablet (80 mg) by mouth Daily 100 tablet 6Active Additional Information Patient taking differently:80 mg Oral Daily,(No times of day reported), Reported on 12/28/2024 pantoprazole (Protonix) 40 MG EC tablet Indications:Gastroesophageal reflux disease without esophagitisTake 1 tablet (40 mg) by mouth every 12 (twelve) hours 200 tablet 305///6Active Dulaglutide (Trulicity) 0.75 MG/0.5ML solution auto-injector Indications:Type 2 diabetes mellitus with peripheral neuropathy (HCC)Inject 0.75 mg under the skin 1 (one) time per week 6 mL //6Active insulin glargine (Lantus SoloStar) 100 UNIT/ML pen Indications:Type 2 diabetes mellitus with peripheral neuropathy (HCC)Inject 35 Units under the skin in the morning and 35 Units before bedtime. 30 mL //ctive ergocalciferol (Vitamin D2) 1.25 MG (54544 UT) capsule Indications:Vitamin D deficiencyTake 1 capsule by mouth once a week 12 capsule 5Active etodolac (Lodine) 300 MG capsule Take 300 mg by mouth every 8 (eight) hours09/05/2024tive methocarbamol (Robaxin) 500 MG tablet Take 500 mg by mouth every 8 (eight) hours if cixsao7009/05/2024tive insulin pen needle (BD Pen Needle Lizbeth 2nd Gen) 32G x 4 mm [facility] Indications:Type 2 diabetes mellitus with peripheral neuropathy (HCC)USE 1 SUBCUTANEOUSLY 4 TIMES DAILY 400 each 5Active insulin aspart (NovoLOG FlexPen ReliOn) 100 UNIT/ML pen Indications:Type 2 diabetes mellitus with peripheral neuropathy (HCC)20 units small meals , 40 units large meals plus correction 1:30 > 150 mg/dl (max daily 100 units) 30 mL 5Active albuterol HFA 90 mcg/act inhaler Indications:Acute bronchitis, unspecified organism,Chronic diarrheaInhale 2 puffs every 4 (four) hours if needed for wheezing 18 g 5Active MAGnesium-Oxide 400 (240 Mg) MG tablet Indications:HypomagnesemiaTake 1 tablet (400 mg) by mouth in the morning and 1 tablet (400 mg) before bedtime. 30 tablet 5Active MAGnesium-Oxide 400 (240 Mg) MG tablet Indications:HypomagnesemiaTake 1 tablet by mouth once daily 30 tablet 312//Discontinued(Reorder) doxycycline (Adoxa) 100 MG tablet Indications:Acute bronchitis, unspecified organismTake 1 tablet (100 mg) by mouth in the morning and 1 tablet (100 mg) before bedtime. Do all this for 10 days. Take with a full glass of water and do not lie down for at least 30 minutes after. 20 tablet Expired predniSONE (Deltasone) 20 MG tablet Indications:Acute bronchitis, unspecified organismTake 2 tablets (40 mg) by mouth Daily for 5 days 10 tablet Expired Active Problems ProblemNoted DateDiagnosed DateType 2 diabetes mellitus with hyperglycemia, with long-term current use of xdispga4805/19/2024ge-related cataract of both eyes 02/25/2024History of lumbar kqbloj7801/31/2024Stage 3 chronic kidney disease 01/31/2024Hypertensive chronic kidney disease with stage 1 through stage 4 chronic kidney disease, or unspecified chronic kidney auhhdgo4701/31/2024 Xyruypvfuawtjz27/22/2024iriformis syndrome of left side01/31/2024 Assessment & Plan (09/09/2024 1:46 PM EDT): Orders: Ambulatory referral to Physical Therapy; Future Screening for colorectal acxbqo3901/31/2024Trochanteric bursitis of left hip 10/23/2023hest pain03/15/2023Lumbar ldnwmupfsof96/14/2023Spinal stenosis of lumbar region with neurogenic jfaibumotiyc99/11/2023isorder of eywgam8212/19/2022 Bipolar 1 /26/2023bnormal metabolic state due to diabetes mellitus 07/23/2022bnormality of red blood cells07/23/2022cquired absence of both cervix and infwjz1807/23/2022cquired hallux gwtgtq2907/23/2022cquired jeknfbxhplhrkucfa23/15/2023cute left-sided low back pain with left-sided qiojziuv23/15/2023drenal enbyjd7307/23/2022Seasonal allergic eihqcyli54/15/2023 Allergic rhinitis due to yukfph4507/23/2022llergic ryqyspih73/15/2023hronic hosjnzqmhi57/15/2023OPD (chronic obstructive pulmonary disease) with chronic dsptzawurg40/15/2023symptomatic postprocedural ovarian knsjdbf8107/23/2022ipolar affective disorder, currently depressed, hgceybaw92/15/2023arpal tunnel syndrome of right wrist07/23/2022hronic ocuswxy3707/23/2022ontracture, left ankle07/23/2022egeneration of intervertebral disc of lumbar bbegxg2907/23/2022 Type 2 diabetes mellitus with stage 3b chronic kidney disease, with long-term current use of wjetajw6907/23/2022Esophageal spasm07/23/2022Esophageal stricture 07/23/2022astroesophageal reflux disease without qmnvojplggy99/15/2023ERD with ybxvmpvxqyl03/15/2023Hammertoe of left foot07/23/2022High tpxgmeontua05/15/2023 Hx of total rxhqmttywmxf12/15/5168Gscwkkjcfnkavr26/15/2023Hypercalcemia 07/23/20228149Emvztqtzhght70/15/2023Lesion of liver07/23/20221609Orkclkuorvby34/15/2023 Low vitamin D level07/23/2022Lumbago with sciatica, left side07/23/2022Lumbago with sciatica, right side07/23/2022isplacement of lumbar intervertebral disc without gyjcrzobqf46/15/2023Lumbar disc urqvzjpzbm71/15/2023lass 2 severe obesity due to excess calories with serious comorbidity and body mass index (BMI) of35.0 to 35.9 in adult07/23/2022Neuropathy of right radial nerve 07/23/2022OSA on CPAP07/23/2022Other chronic pain07/23/20225105Sxebblosi77/15/2023 Pharyngoesophageal grtarevhp10/15/0574Lbdxkksqhpg90/15/2023Restless leg syndrome 07/23/2022Situational sfqtkr7707/23/2022Steatohepatitis, non-lmgencxdr29/15/2023 Type 2 diabetes mellitus with peripheral vlezcupgjt90/15/2023 Assessment & Plan (12/01/2024 9:42 PM EDT): [...] is to call in between appointments if theyhave any problems or questions. Radha Jones is struggling to gain control of their diabetes. I am very concerned for diabetes related complications. , The patient is wearing their cgm on a daily basis and making decisions inregards to adjusting insulin daily as well for [...] have any problems or questions. Radha Jones control is stable overall. , The patient [...] her issue is her diet and she willcontinue to struggle with control due to this. [...] include: Insulin instructio ns and Dietary education. Will increase her lantus [...] this. , The patient is wearing their cgmon a daily basis and making decisions in [...] management, Insulin instructions, and Dietary education. Will i ncrease insulin for her larger meals and she [...] takes her diabetes more seriously. Vitamin D iipiphgfpo87/15/2023Familial ysslaqtsivkkkaosvurf76/10/2022Moderate nonproliferative diabetic retinopathy of both eyes with macular edema associated with type2 diabetes evxxlgwg86/30/2021hronic obstructive pulmonary disease 01/20/2018Cigarette hdhwhl6311/09/2014 Resolved Problems ProblemNoted DateDiagnosed DateResolved DateType 2 diabetes mellitus with diabetic chronic kidney hdslmfh84Long-term insulin use iabetic autonomic neuropathy associated with type 2 diabetes syyfgnwa02iabetic xrqodvfxkkk26 Hypoglycemia unawareness associated with type 2 diabetes culnwfsp53/15/2023 11/29/2022Morbid svxihxl62olyneuropathy due to type 2 diabetes uzmfcovc46Type 2 diabetes vpsebwip07/15/2023 11/29/2022 Encounters DateTypeDepartmentCare IlyxJxhqguqthxn20/28/2025Patient Outreach [facility] [address] [place] [address] Laverne Espinal LSW 12/31/2024 2:30 PM EDTTreatment [facility] [address] [place] [address] Leatha Webster PTA Piriformis syndrome of left side (Primary Dx)12/31/2024amboo flowsheet [facility] [address] [place] [address] Leatha Webster PTA 12/31/20244844Mkczrq31/20/2025 1:40 PM EDTOffice Visit [facility] [address] [place] [phone] Danii Manley MD Hypercalcemia (Primary Dx); Vitamin D deficiency; Hypomagnesemia; Abnormal kidney function; Adrenal nodule (HCC); Benign neoplasm of parathyroid gland12/28/2024amboo flowsheet [facility] [address] [place] [phone] Danii Manley MD 12/22/2024 2:00 PM EDTTreatment [facility] [address] [place] [address] Samuel Wright, [employer] Piriformis syndrome of left side (Primary Dx)12/22/2024amboo flowsheet [facility] [address] [place] [address] Samuel Wright, [employer] 12/22/20249279Psluup39/06/2025linisync Result Encounter [facility] External Department Unsolicited Provider, Generic External Data 12/09/2024 2:30 PM EDTTreatment [facility] [address] [place] [address] Samuel Wright [employer] Piriformis syndrome of left side (Primary Dx)12/09/2024amb flowsheet [facility] [address] [place] [address] Samuel Wright, [employer] 12/09/20244338Zgljve27/29/2025Patient Outreach [facility] [address] [place] [address] Laverne Espinal LSW 12/01/2024 2:30 PM EDTOffice Visit [facility] [address] [place] [address] Laverne Carolina, DO Type 2 diabetes mellitus with stage 3b chronic kidney disease, with long-term current use of insulin ([facility]) (Primary Dx); Type 2 diabetes mellitus with peripheral neuropathy ([facility]); Type 2 diabetes mellitus with hyperglycemia, with long-term current use of insulin ([facility]); Moderate nonproliferative diabetic retinopathy of both eyes with macular edema associated with type2 diabetes mellitus ([facility]); Class 2 severe obesity due to excess calories with serious comorbidity and body mass index (BMI) of35.0 to 35.9 in adult ([facility])12/01/2024 12:00 PM EDT Treatment [facility] [address] [place] [address] Samuel Wright, [employer] Piriformis syndrome of left side (Primary Dx)12/01/2024amboo flowsheet [facility] [address] [place] [address] Samuel Wright, [employer] 12/01/20240933Awbhgp68/16/2025 1:00 PM EDTClinical Support [facility] [place] [facility] [address] [place] [address] Lindy Valentino, [facility] Bipolar 1 disorder (HCC)11/24/2024[facility] flowsheet [facility] [place] [facility] [address] [place] [address] Lindy Valentino, [facility] 11/24/20240938Chwxpr54/08/2025 1:30 PM EDTTreatment [facility] [address] [place] [address] Samuel Wright, [employer] Piriformis syndrome of left side (Primary Dx)11/16/2024[facility] flowsheet [facility] [address] [place] [address] Samuel Wright, [employer] 11/16/20247523Vdbrog99/04/2025 3:10 PM EDTOffice Visit [facility] [address] [place] [address] Eliazar De Los Santos DPM Metatarsalgia, left foot (Primary Dx); Diabetes 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 polyneuropathy, with long-term current use of insulin (HCC); Pain due to onychomycosis of toenails of both feet11/12/2024amboo flowsheet [facility] [address] [place] [address] Eliazar De Los Santos DPM 11/12/20248210Zeudmd59/27/2025Patient Outreach [facility] [address] [place] [address] Laverne Espinal, LUCERO 11/02/2024 1:30 PM EDTTreatment [facility] [address] [place] [address] Adriana Samuel, [employer] Piriformis syndrome of left side (Primary Dx)11/02/2024amboo flowsheet [facility] [address] [place] [address] Adriana Samuel, [employer] 11/02/20246739Qfvmhu83/20/2025 2:00 PM EDTTreatment [facility] [address] [place] [address] Adriana Samuel, [employer] Piriformis syndrome of left side (Primary Dx)10/28/2024amboo flowsheet [facility] [address] [place] [address] Samuel Wright, [employer] 10/28/20246789Unhnoh57/13/2025 1:00 PM EDTEvaluation [facility] [address] [place] [address] Marylou Lay, PT Piriformis syndrome of left side (Primary Dx)10/21/2024Plan of Care Documentation [facility] [address] [place] [address] 10/21/2024amboo flowsheet [facility] [address] [place] [address] Marylou Lay, PT 10/21/20243695Hvixsg72/29/2025Patient Outreach [facility] [address] [place] [address] Laverne Espinal, LUCERO from Last 3 Months Immunizations ImmunizationAdministration DatesNext DueHep A, Adult03/01/2020,01/24/2020, 12/18/2018Hep B, adult06/21/2021,03/01/2020Influenza, injectable, quadrivalent, preservative free12/13/2016Influenza, recombinant, quadrivalent, injectable, preservative free01/24/2020,12/18/2018Pneumococcal Polysaccharide PPSV23 01/24/2020 Family History Medical HistoryRelationNameCommentsDiabetesFatherHeart diseaseFatherKidney diseaseFatherMental illnessFatherStrokeFatherstomach troubleFatherAnxiety disorderMotherDepressionMotherDiabetesMotherHeart diseaseMotherAnxiety disorder SisterDepressionSisterRelationNameStatusCommentsFatherDeceasedMotherAliveSister Social History Tobacco UseTypesPacks/DayYears UsedDateSmoking Tobacco: Every DayCigarettes0.315 Smokeless Tobacco: Never Tobacco Cessation:Ready to Q uit: Not Asked; Counseling Given: Yes Comments:Smokes a pack a week. 2-3 cigarettes a day. 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 [employer] [facility]Not on fileNot on fileNot on file Last Filed Vital Signs Vital SignReadingTime TakenCommentsBlood Zrlucsao378/7610 1:20 PM EDT Oagdz840812/28/2024 1:20 PM QWQEbqdqvqogoi14.1 ??C (98.7 ??F)12/01/2024 2:28 PM EDTRespiratory Orvx0430 1:20 PM EDTOxygen Oafkaivatf60%12/28/2024 1:20 PM EDTInhaled Oxygen Concentration--Wrkylr54.7 kg (200 lb)12/28/2024 1:20 PM EDT Dsixer222.6 cm (5' 4 )12/28/2024 1:20 PM EDTBody Mass Index34.331 1:20 PM EDT Plan of Treatment DateTypeDepartmentCare Team (Latest Contact Info)Pmmbaftxvju81/03/2025 3:30 PM ESTTreatment [facility] [address] [facility] [address] [place] [address] Samuel Wright PTA 01/21/2025 3:20 PM ESTOffice Visit [facility] [address] [facility] [address] [place] [address] Eliazar De Los Santos, DPAvtar [address] [facility] [address] [place] [address] 02/02/2025 3:00 PM ESTOffice Visit [facility] [address] [place] [phone] Kala Lloyd MD [address] [place] [address] 03/02/2025 1:00 PM ESTOffice Visit [facility] [address] [facility] [address] [place] [address] Laverne Carolina DO [address] [facility] [address] [place] [address] 06/28/2025 2:00 PM EDTOffice Visit [facility] [address] [place] [address] Danii Manley MD [address] [place] [address] Health MaintenanceDue DateLast DoneCommentsCT Fbrrcypsehyt70/16/1972FIT-DNA 1971FIT1971FOBT1971Clxepnobjdalh22/16/1972MMR Vaccines (1 of 1 - Standard series)12/24/1972DTaP/Tdap/Td Vaccines (1 - Tdap)12/24/1978 Pneumococcal Vaccine: Pediatrics (0 to 5 Years) and At-Risk Patients (6 to 64 Years) (2 of 2 - PCV)Hepatitis B Vaccines (3 of 3 - 19+ 3- dose series)/, 03/01/2020COVID-19 Vaccine ( - season)2024Diabetes: Urine Protein Hjkoybqmy11/21/418598/, 01/21/2023, 04/05/2022, Additional history existsDiabetes: Hemoglobin A1C 509/, 07/30/2024, 05/07/2024, Additional history existsMammogram 603/, 04/22/2023, 03/09/2022, Additional history existsDiabetes: Retinopathy Ulxslittz19/15/867041/, 02/25/2024, 10/28/2023, Additional history kyyitbMcgjrujswte94/28/203306/olorectal Cancer Screening 09/05/2032Hepatitis A NcmwwliiEhclnmvtz37/22/2020, 01/24/2020, 12/18/2018 Influenza MtsozskDggzbhwal30/18/2025, 01/24/2020, 12/18/2018, Additional history existsHIB VaccinesAged OutNo longer eligible based on patient's age to complete this topicHPV VaccinesAged OutNo longer eligible based on patient's age to complete this topicIPV VaccinesAged OutNo longer eligible based on patient's age to complete this topicMeningococcal B VaccineAged OutNo longer eligible based on patient's age to complete this topicMeningococcal VaccineAged OutNo longer eligible based on patient's age to complete this topicRotavirus VaccinesAged Out No longer eligible based on patient's age to complete this topic Procedures Procedure NamePriorityDate/TimeAssociated DiagnosisCommentsALDOSTERONE/PLASMA RENIN ACTIVITY RATIO, LC/MS/YDNquisrk32/17/2025 12:42 PM EDT Adrenal nodule (HCC) [facility] DEPAKENE/ VALPROIC KRNUBmqtwgs65/06/2025 1:18 PM EDT [facility] LIVER GPINZCxhvimc34/06/2025 1:18 PM EDT POCT GLYCOSYLATED HEMOGLOBIN (HGB A1C)Ahntkkc0712/01/2024 2:41 PM EDT Type 2 diabetes mellitus with peripheral neuropathy (HCC) DIABETIC RETINOPATHY SCREENING - OU - BOTH EUBQChddkuk98/15/2025 4:14 PM EDTBI MAMMOGRAM SCREENING TOMOSYNTHESIS IHIQWLJSGPfstinf29/21/2025 3:33 PM EDT Encounter for screening mammogram for malignant neoplasm of breast MICROALBUMIN, URINE, 24 TAUSIhnzgcd39/21/2024 8:13 AM EDTCOLONOSCOPY DIAGNOSTIC Btuwjyw3809/05/2022 5:27 PM EDTfrom Last 3 Months or Most Recently Relevant to Health Maintenance Results * ALDOSTERONE/PLASMA RENIN ACTIVITY RATIO, LC/MS/MS (2024 12:42 PM EDT) ComponentValueRef RangeTest MethodAnalysis TimePerformed AtPathologist SignatureALDOSTERONE, LC/MS/MS14ng/dLQUESTComment: Adult Reference Ranges for Aldosterone: Upright 8:00-10:00 am < or = 28 ng/dL Upright 4:00-6:00 pm < or = 21 ng/dL ?? Supine ??8:00-10:00 am ?3-16 ng/dL This test was developed and its analytical performance characteristics have been determined by [employer]. It has not been cleared or approved by the FDA. This assay has been validated pursuant to the CLIA regulations and is used for clinical purposes. PLASMA RENIN ACTIVITY, LC/MS/MS3.910.25 - 5.82 ng/mL/hQUESTALDO/PRA RATIO3.60.9 - 28.9 RatioQUESTSpecimen (Source)Anatomical Location / LateralityCollection Method / VolumeCollection TimeReceived Time2024 12:42 PM EDT1 12:42 PM EDT Narrative Resulting Agency Comment Performing Organization Information ?Site ID: ?Name: [facility], ?Address: [address] [place] [id number] ?Director: Sindy Tejada MD,PhD,CEASR Authorizing ProviderResult TypeResult StatusDanii DAVE BLOOD ORDERABLESFinal ResultPerforming OrganizationAddressty/State/ZIP CodePhone Number QUEST * [facility] DEPAKENE/ VALPROIC ACID (12/14/2024 1:18 PM EDT)ComponentValueRef Range Test MethodAnalysis TimePerformed AtPathologist SignatureTBH VALPROIC ACID90.0 50.0 - 100.0 ug/mLTBHSpecimen (Source)Anatomical Location / Laterality Collection Method / VolumeCollection TimeReceived Time12/14/2024 1:18 PM EDT 12/14/2024 1:47 PM EDT Narrative CLINISYNC - 12/14/2024 5:43 PM EDT Authorizing ProviderResult TypeResult StatusGeneric External Data Provider CLINISYNCFinal ResultPerforming OrganizationAddressCity/State/ZIP CodePhone Number CLINISYNC [facility] * (ABNORMAL) [facility] LIVER PANEL (12/14/2024 1:18 PM EDT)ComponentValueRef Range Test MethodAnalysis TimePerformed AtPathologist SignatureBILIRUBIN TOTAL0.20.2 - 1.0 mg/dLTBHBILIRUBIN DIRECT<0.10.0 - 0.2 mg/dLTBHASPARTATE AMINO TRANSFERASE9(L)15 - 37 U/LTBHALANINE WOXELAIUCHUJFYEC5962 - 59 U/LTBHALKALINE IUFVGBNCLBC4238 - 116 U/LTBHTOTAL PROTEIN6.96.4 - 8.2 g/dLTBHALBUMIN LEVEL2.9 (L)3.4 - 5.0 g/dLTBHGLOBULIN4.0g/dLTBHALBUMIN GLOBULIN RATIO0.7TBHSpecimen (Source)Anatomical Location / LateralityCollection Method / VolumeCollection TimeReceived Time12/14/2024 1:18 PM EDT1 1:47 PM EDT Narrative CLINISYNC - 12/14/2024 5:43 PM EDT Authorizing ProviderResult TypeResult StatusGeneric External Data Provider CLINISYNCFinal ResultPerforming OrganizationAddressCity/State/ZIP CodePhone Number [facility] * (ABNORMAL) POCT glycosylated hemoglobin (Hb A1C) docked device (12/01/2024 2:41 PM EDT)ComponentValueRef RangeTest MethodAnalysis TimePerformed At Pathologist SignatureHemoglobin A1C10.1Specimen (Source)Anatomical Location / LateralityCollection Method / VolumeCollection TimeReceived TimeBloodVenous blood specimen / Rpuxxza6812/01/2024 2:41 PM EDT Narrative Authorizing ProviderResult TypeResult StatusLaverne Carolina DOPOINT OF CARE TEST ENTER/EDIT ORDERABLESFinal Result * (ABNORMAL) Diabetic Retinopathy Screening - OU - Both Eyes (06/23/2024 4:14 PM EDT)Anatomical RegionLateralityModalityHeadOther Narrative Authorizing ProviderResult TypeResult Elli Carolina DOOPHTH PHOTOGRAPHYFinal Result * Bilateral screening mammogram with tomosynthesis (05/29/2024 3:33 PM EDT) Anatomical RegionLateralityModalityBreastBilateralMammographySpecimen (Source) Anatomical Location / LateralityCollection Method / VolumeCollection Time Received Time05/30/2024 4:43 PM EDT Impressions 05/30/2024 4:50 PM [...] thickening which would be suggestive of malignancy. ?? Mild scattered benign-appearing calcifications are noted bilaterally. Small benign-appearing asymmetric density on the right posteriorly, similar to the prior study. Axillary lymph nodes are noted onthe left which appear grossly unremarkable. Procedure Note [...] Mammogram ELECTRONICALLY SIGNED BY: Baron Erickson M.D. Authorizing ProviderResult TypeResult Bria MCNALLY BI PROCEDURES Final Result * Microalbumin, urine, 24 hour (12/30/2023 8:13 AM EDT)Specimen (Source) Anatomical Location / LateralityCollection Method / VolumeCollection Time Received TimeUrineUrine specimen obtained by clean catch procedure / Unknown Narrative Authorizing ProviderResult TypeResult Reyes DAVE URINE ORDERABLESFinal Result * (ABNORMAL) COLONOSCOPY DIAGNOSTIC (09/05/2022 5:27 PM EDT)Anatomical Region LateralityModalityRadiographic Imaging Narrative Authorizing ProviderResult TypeResult StatusKala Lloyd MDIMG XR PROCEDURES Final Result from Last 3 Months or Most Recently Relevant to Health Maintenance Insurance * Guarantor: Radha Jones Millie TypeRelation to PatientDate of BirthPhone Billing AddressPersonal/JltgxkSjxn71/16/1971 [address] [address] Care Teams Team MemberRelationshipSpecialtyStart DateEnd Date Kala Lloyd MD [address] [place] [address] PCP - GeneralFamily Medicine08/07/22 Kala Lloyd MD [address] [place] [address] PCP - [facility] Krysta [facility]EM[facility]EL [facility]06/10/23 Kaylie Chavez, TRANSMISSION TECHNICIAN [address] [place] [address] Nurse PractitionerFamily Medicine08/07/22 Lindy Valentino [facility] [address] [place] [address] Behavioral Health03/18/24 Laverne Espinal LSW [address] [place] [address] Social WorkerFamily Medicine09/07/24
--- OUTSIDE RECORDS SUMMARY | 2025-01-06 12:39 | XMS_ITS | Clinical Summary ---
Author Organization [employer] [facility] Address [id number] [place] [address] Care Team Providers Care Campground Cleaning Attendant Name Role Phone EarnesttracyPhuLaverne Avtar MISHRA Primary Care Provider [phone] Allergies Active AllergyReactionsCriticalityNoted AewsBsxuuofxAwishlv28/23/2019 N/V Gwbazvmucvsmu03/23/2019 rash IrlveWtlzGme36/30/2019 Medications MedicationSigDispense QuantityRefillsLast FilledStart DateEnd DateStatus chlorproMAZINE (THORAZINE) 200 mg tablet Take 1 tablet (200 mg total) by mouth once daily at bedtime. Take 2-3 tablets at nightActive divalproex (DEPAKOTE) 500 mg EC tablet Take 3 tablets (1,500 mg total) by mouth nightly.Active doxepin (SINEquan) 50 mg capsule Take 1 capsule (50 mg total) by mouth in the morning and 1 capsule (50 mg total) at noon and 1 capsule (50 mg total) before bedtime.Active gabapentin (NEURONTIN) 800 mg tablet Take 1 tablet (800 mg total) by mouth in the morning and 1 tablet (800 mg total) at noon and 1 tablet (800 mg total) in the evening and 1 tablet (800 mg total) before bedtime.Active desvenlafaxine (PRISTIQ) 100 mg 24 hr tablet Take 1 tablet (100 mg total) by mouth in the morning. Take 1.5 tablets.Active metFORMIN (GLUMETZA) 1000 MG (MOD) 24 hr tablet Take 1 tablet (1,000 mg total) by mouth in the morning and 1 tablet (1,000 mg total) in the evening. Take with meals.Active insulin aspart U-100 (NovoLOG) 100 unit/mL injection Inject under the skin in the morning and at noon and in the evening. Inject before meals. Sliding scale .Active insulin glargine (LANTUS, BASAGLAR) 100 unit/mL (3 mL) insulin pen Inject 40 Units under the skin in the morning and 40 Units before bedtime.Active rOPINIRole (REQUIP) 0.25 mg tablet Take 1 tablet (0.25 mg total) by mouth nightly.Active lisinopril (PRINIVIL,ZESTRIL) 20 mg tablet Take 1 tablet (20 mg total) by mouth in the morning.Active atorvastatin (LIPITOR) 40 mg tablet Take 2 tablets (80 mg total) by mouth in the morning.Active fluticasone propionate (FLONASE) 50 mcg/actuation nasal spray Administer 2 sprays into each nostril in the morning.Active pantoprazole (PROTONIX) 40 mg EC tablet Take 1 tablet (40 mg total) by mouth in the morning and 1 tablet (40 mg total) before bedtime.Active tiotropium-olodateroL (STIOLTO RESPIMAT) 2.5-2.5 mcg/actuation mist Inhale 2 puffs in the morning.Active cholecalciferol (VITAMIN D3) 50,000 units capsule Take 5,000 Units by mouth once a week.Active magnesium oxide (MAGOX) 400 mg tablet Take 1 tablet (400 mg total) by mouth in the morning and 1 tablet (400 mg total) before bedtime.Active cetirizine (ZyrTEC) 10 mg tablet Take 1 tablet (10 mg total) by mouth in the morning.Active ezetimibe (ZETIA) 10 mg tablet Take 1 tablet (10 mg total) by mouth in the morning.Active albuterol (PROVENTIL HFA;VENTOLIN HFA) 90 mcg/actuation inhaler Inhale 2 puffs every 6 (six) hours as needed for wheezing.Active blood-glucose sensor (DEXCOM G6 SENSOR) device by miscellaneous route.Active EPINEPHrine (ADRENALIN) 1 mg/mL injection Inject into the appropriate muscle once.Active LORazepam (ATIVAN) 0.5 mg tablet Take 2 tablets (1 mg total) by mouth every 6 (six) hours as needed for anxiety. 0.5-1 mg daily 2 tablets at HSActive aMILoride (MIDAMOR) 5 mg tablet Take 1 tablet (5 mg total) by mouth in the morning.Active montelukast (SINGULAIR) 10 mg tablet Take 1 tablet (10 mg total) by mouth nightly.Active tiZANidine (ZANAFLEX) 4 mg tablet Take 1 tablet (4 mg total) by mouth 2 (two) times a day as needed for muscle spasms. 60 tablet ctive LORazepam (ATIVAN) 1 mg tablet Take 1 tablet (1 mg total) by mouth in the morning. 1 tablets 3 times daily and 2 tablets at bedtime.Active TRULICITY 0.75 mg/0.5 mL pen injector Inject 0.5 mL (0.75 mg total) under the skin once a week. INJECT 0.75 MG UNDER THE SKIN 1 (ONE) TIME PER WEEK/ctive doxycycline (ADOXA) 100 MG tablet Take 1 tablet (100 mg total) by mouth in the morning.Expired predniSONE (DELTASONE) 20 mg tablet Take 1 tablet (20 mg total) by mouth in the morning.Expired Active Problems ProblemNoted DateDiagnosed DateTrochanteric bursitis of left hip10/23/2023hest pain03/15/2023Lumbar oiformxgxwr04/14/2023isorder of ajbiyz3312/19/2022Spinal stenosis of lumbar region with neurogenic kyeehzpugdtb45/11/2023Primary /10/2022Familial xpnmtycxqzoywlruwcgv88/10/2022Type 2 diabetes mellitus, with long-term current use of mjzhwol6012/18/2021NASH (nonalcoholic steatohepatitis)12/18/2021 Encounters DateTypeDepartmentCare WdosQysemxynemn61/28/2025 1:15 PM EDTOffice Visit [facility] [address] [place] [address] Ricky Miles PA Disorder of sacrum (Primary Dx)01/05/20258033Fehtsc29/03/2025 9:22 AM EDT - 12/11/2024 9:29 AM EDTSurgery [facility] [address] [place] [address] Reymundo Giron MD INJECTION BLOCK EPIDURAL CAUDAL STEROID [85239 (CPT??)]12/11/2024 9:05 AM EDT Anesthesia Event [facility] [address] [place] [address] Jude Stoddard, Brooks Hanna, WHAT JOB TITLES MEAN-SUPERVISOR LENDING ACTIVITIES 12/11/2024 8:29 AM EDT - 12/11/2024 11:59 PM EDTHospital Encounter [facility] [address] [place] [address] Reymundo Giron MD Discharge Disposition: Home12/11/2024 8:10 AM EDT - 12/11/2024 8:28 AM EDT Hospital Encounter [facility] [address] [place] [address] Reymundo Giron MD Spinal stenosis of lumbar region with neurogenic claudication Discharge Disposition: Home11/23/20248439Qdiuqg13/11/2025Telephone [facility] [address] [place] [address] Louise Hale RN 11/17/2024 2:30 PM EDTOffice Visit [facility] [address] [place] [address] Ricky Miles PA Spinal stenosis of lumbar region with neurogenic claudication (Primary Dx) 11/17/20247884Kcmgbe45/31/2025 2:00 PM EDTOffice Visit [facility] [address] [place] [address] Ricky Miles PA Lumbosacral spondylosis without myelopathy (Primary Dx)10/08/2024Travelfrom Last 3 Months Family History Medical HistoryRelationNameCommentsDiabetesFatherHeart diseaseFatherKidney diseaseFatherMental illnessFatherStrokeFatherAnxiety disorderMotherDepression MotherDiabetesMotherHeart diseaseMotherRelationNameStatusCommentsFatherDeceased Mother Social History Tobacco UseTypesPacks/DayYears UsedDateSmoking Tobacco: Every EfzCxkcgccbbq908 Smokeless Tobacco: Never Tobacco Cessation:Ready to Q uit: Not Asked; Counseling Given: Not Answered Comments:One pack per week Alcohol UseStandard Drinks/WeekCommentsNever0 (1 standard drink = 0.6 oz pure alcohol)AUDIT-CAnswerDate RecordedFrequency of Alcohol ConsumptionNever 12/31/2018Average Number of DrinksNot on file12/31/2018Frequency of Binge DrinkingNot on file12/31/2018ChildcareAnswerDate RecordedChildcareUnknown 08/20/2018EmploymentAnswerDate InmyufnqMkukflzcmdVrqazgd79/12/2019Hunger ScreeningAnswerDate RecordedWithin the past 12 months we worried whether our food would run out before we got money to buy more.Never True01/05/2025Within the past 12 months the food we bought just didn't last and we didn't have money to get more.Never True01/05/2025Purpose - LifeAnswerDate RecordedPurpose and direction in diuhSpqycwa86/11/2021CommentsNoSex and Gender Information ValueDate RecordedSex Assigned at MlndrGsifrq37/14/2023 1:17 PM ESTLegal Sex Xspobx4210/14/2014 11:44 AM EDTGender HsokcqkhZkhzja47/14/2023 1:17 PM ESTSexual OrientationChoose not to dglkbrog59/14/2023 1:17 PM EST Last Filed Vital Signs Vital SignReadingTime TakenCommentsBlood Ywyjjbpi484/8701/05/2025 1:34 PM EDT Tjwvl084101/05/2025 1:34 PM OOSUejsluiisin45 ??C (96.8 ??F)12/11/2024 8:47 AM EDT Respiratory Tnie8660 1:34 PM EDTOxygen Obgjyfogxg56%12/11/2024 9:16 AM EDTInhaled Oxygen Concentration--Tbhiwv10.4 kg (197 lb)01/05/2025 1:34 PM EDT Fupsvb459.6 cm (5' 4 )12/11/2023 1:31 PM EDTBody Mass Index33.8112/11/2023 1:31 PM EDT Plan of Treatment DateTypeDepartmentCare Team (Latest Contact Info)Nzbnjxxazex29/21/2025 10:28 AM ESTHospital Encounter [facility] [address] [place] [address] Reymundo Giron MD [address] [facility] [address] 01/29/2025 10:28 AM EST - 01/29/2025 10:35 AM ESTSurgery [facility] [address] [place] [address] Reymundo Giron MD [address] [facility] [place] [address] INJECTION BLOCK SACROILIAC JOINT [[id number] (CPT??)]02/25/2025 1:15 PM ESTOffice Visit [facility] [address] [place] [address] Ricky Miles PA [address] [place] [address] NamePriorityAssociated DiagnosesDate/TimeINJECTION BLOCK SACROILIAC JOINT Disorder of sacrum 01/29/2025 10:28 AM ESTHealth MaintenanceDue DateLast DoneCommentsDiabetic Ophthalmology Exam1971Tobacco Guqwoulgdy58/16/1972Depression Screening 1983Diabetic Foot Exam12/24/1989DTaP,Tdap and Td Vaccines (1 - Tdap) 12/24/1990Zoster (Shingles) Vaccine (2 of 2)Statin Use: Qpkeqrcu67/22/322881/dult BMI Ahpvszwxb22Tobacco Tjoohcyeg53Influenza BqtiewkNjtewjxzm34/18/2025, 01/24/2020, 12/18/2018, Additional history exists Medical Devices ImplantedTypeAreaManufacturerDevice IdentifierShelf Expiration DateModel / Serial / LotLumbarDescription:lumbar hardwareOrtho HardwareDescription:left wrist Procedures Procedure NamePriorityDate/TimeAssociated DiagnosisCommentsFL FLUOROSCOPY UP TO 1 YYJYTntuskv71/03/2025 9:10 AM EDT Spinal stenosis of lumbar region with neurogenic claudication CA NJX DX/THER SBST INTRLMNR LMBR/SAC W/IMG GDN1 9:04 AM EDT Spinal stenosis of lumbar region with neurogenic claudication Special Needs Diabetic, Dexcom, Trulicity (Fri) - hold 7d Latex allergy from Last 3 Months Results * Fluoroscopy less than one hour (12/11/2024 9:10 AM EDT)Specimen (Source) Anatomical Location / LateralityCollection Method / VolumeCollection Time Received Time Narrative SYSTEMGENERATED, DOCUMENTATION - 12/11/2024 9:10 AM EDT No Reading Required. This procedure does not require a formal dictation. Non-Radiologist provider performed procedures can be reviewed under Post-Op, Procedure or Progress notes. For full report details, please reach out to your physician. ??Effective 07/26/2020 this image will be visible to you in MyChart. Authorizing ProviderResult TypeResult StatusWilani MCNALLY FLUOROSCOPY ORDERABLESFinal Result from Last 3 Months Insurance * Guarantor: Radha Jones TypeRelation to PatientDate of PhoneBilling AddressPersonal/ZmyugkMzal17/16/1971 [facility]/[address] [place] [address] Care Teams Team MemberRelationshipSpecialtyStart DateEnd Date Laverne Carolina DO [address] [facility] [address] [place] [address] PCP - GeneralFamily Medicine11/17/24
--- OUTSIDE RECORDS SUMMARY | 2025-01-06 12:39 | XMS_ITS | Clinical Summary ---
Author Organization [facility] Address [address] [place], [place] [id number] Care Team Providers Care Order Desk Clerk Name Role Phone Kala Lloyd MD Primary Care Provider [phone] Allergies Active AllergyReactionsCriticalityNoted DateCommentsCodeineGI UpsetHigh 11/09/20149093VycwjhastfrvoKtnjJvmo34/01/2015Food KzvhbaixCiac07/01/2015 Onions--rash,coconut--breathing YnhhpEzogXvxy86/01/2015 Medications MedicationSigDispense QuantityRefillsLast FilledStart DateEnd DateStatus insulin glargine (LANTUS SOLOSTAR) 100 unit/mL (3 mL) inpn Inject 40 Units subcutaneously twice daily.Active metFORMIN (GLUCOPHAGE) 1,000 mg tablet Take 1,000 mg by mouth twice daily with meals.Active traZODone HCl 300 mg tablet Take 300 mg by mouth daily at bedtime.Active venlafaxine XR (EFFEXOR XR) 150 mg 24 hr capsule Take 150 mg by mouth once daily.Active gabapentin (NEURONTIN) 800 mg tablet Take 800 mg by mouth four times daily.Active baclofen (LIORESAL) 10 mg tablet Take 10 mg by mouth three times daily.Active hydrOXYzine pamoate (VISTARIL) 50 mg capsule Take 50 mg by mouth four times daily as needed for Anxiety.Active ibuprofen (MOTRIN) 800 mg tablet Take 800 mg by mouth every 6 hours as needed for Pain.Active atorvastatin (LIPITOR) 20 mg tablet Take 20 mg by mouth once daily.Active glimepiride (AMARYL) 1 mg tablet Take 1 mg by mouth twice daily.12/29/2014ctive VICTOZA 2-ARNALDO 0.6 mg/0.1 mL (18 mg/3 mL) pnij Inject 1.2 Units intramuscularly once daily.01/12/2015ctive doxepin capsule 150 mg Take 1 capsule by mouth every 6 hours.12/27/2014ctive fluticasone (FLONASE) 50 mcg/actuation nasal spray Use 2 Sprays in each nostril once daily.01/12/2015ctive OXcarbazepine (TRILEPTAL) 600 mg tablet Take 1 tablet by mouth three times daily.12/27/2014ctive Active Problems ProblemNoted DateDiagnosed DateCigarette pbfzsk4311/09/2014Metabolic syndrome 11/09/2014Intervertebral disc disorder with radiculopathy of lumbar region 11/09/2014Psychological factors affecting medical qzpowsjxg18/01/2015 Family History Medical HistoryRelationCommentsDiabetesFatherHypertensionFatherDiabetesMother HeartMotherHypertensionMotherRelationStatusCommentsFatherDeceasedMotherAlive SisterAlive Social History Tobacco UseTypesPacks/DayYears UsedDateSmoking Tobacco: Every BvzIieuzczjuz407 Tobacco Cessation:Ready to Q uit: No; Counseling Given: No Alcohol UseStandard Drinks/WeekCommentsNo0 (1 standard drink = 0.6 oz pure alcohol)CommentsNoSex and Gender InformationValueDate RecordedSex Assigned at BirthNot on fileLegal HeyYdienw16/02/2012 8:57 AM ESTGender Identity Not on fileSexual OrientationNot on fileOccupationIndustryJob Start DateJob End DatewalmartNot on fileNot on fileNot on file Last Filed Vital Signs Vital SignReadingTime TakenCommentsBlood Ywvayxsh449/8611 1:55 PM EST Ygjrz148301/18/2015 1:55 PM ESTTemperature--Respiratory Kpbt178503/20/2014 1:55 PM ESTOxygen Ipzawghcfx42%01/18/2015 1:55 PM ESTInhaled Oxygen Concentration-- Orrjao18.4 kg (197 lb)01/18/2015 1:55 PM FESZinylo346.6 cm (5' 4 )11/09/2014 10:30 AM EDTBody Mass Index33.8111/09/2014 10:30 AM EDT Plan of Treatment Health MaintenanceDue DateLast DoneCommentsAnxiety Wshowqndy43/16/1990Depression Fpoikoipy36/16/1990HIV Vvqnlvzhr18/16/1990Hepatitis C Ctmnvzmui02/16/1990 DTaP,Tdap,Td Vaccine (1 - Tdap)12/24/1990Hepatitis B Vaccine (1 of 3 - 19+ 3- dose series)12/24/1990Cervical Cancer Gzxpkvkae75/16/1993Mammogram Screening 2011CT Wicabnbsmdmr70/16/2017Cologuard (FIT-DNA)12/24/2016Colonoscopy 12/24/2016Colorectal Cancer Cjkdeiqhi88/16/2017Diabetes Ozeosmrlo30/16/2017Fecal Occult Blood12/24/2016Lipid Ljzaeytjo26/16/5274Djqdweiskbrzz07/16/2017 Pneumococcal Vaccine: 50+ (1 of 1 - PCV)12/24/2021hingrix Vaccine (1 of 2) 2Covid-19 Vaccine (1 - 2024- season)2024Influenza Vaccine (#1) 2024 Insurance Care Teams Team MemberRelationshipSpecialtyStart DateEnd Kala Lloyd MD [address] [phone] PCP - GeneralFamily Medicine10/25/14
--- OUTSIDE RECORDS SUMMARY | 2025-01-06 12:39 | XMS_ITS | Clinical Summary ---
Demographics Address [address] [address] Home Phone Preferred Language Unknown Marital Status Unknown Synagogue Affiliation Unknown Race Unknown Ethnic Group Unknown Author Organization [facility] Address [address] [place] [address] Phone Care Team Providers Care Windscreen Fitter Name Role Phone Unavailable Primary Care Provider Unavailabl e Social History Tobacco UseTypesPacks/DayYears UsedDateSmoking Tobacco: Never Assessed CommentsUnknownSex and Gender InformationValueDate RecordedSex Assigned at Not on fileLegal ZxaLgsdwq23/25/2022 11:38 AM ESTGender IdentityNot on file Sexual OrientationNot on file Plan of Treatment Not on file
--- OUTSIDE RECORDS SUMMARY | 2025-01-06 12:50 | XMS_ITS | CCD ---
Author Organization [facility] Care Team Providers Care Correctional Program Officer Name Role Phone Danis, Nir Unavailable KAYLIE [...] Attending Provider Peyton Hoskins Unavailable MD [facility] Primary Care Provider TAMMIE Chavez Referring Provider MD Isela Downs Attending Provider TAMMIE Chavez Primary Care Provider [phone] MD Peyton Hoskins Attending Provider DANIS, NIR Admitting Unavailable DANISCOLLINUL Attending Unavailable [...] Care Unavailable DANIS, NIR Consulting Unavailable Chavez, SEXTON HELPER Kaylie R Primary Care Provider MD Herrera Donahue Attending Provider [phone] MD Nir Horvath Attending Provider [phone] Prema COUGHLIN, [facility] Primary Care Provider Scott RECRUITING OPERATIONS CONSULTANT, Kaylie R Unavailable Scott SEXTON HELPER Kaylie R Primary Care Provider MD Fermín Donahue Attending Provider TAMMIE Chavez Kaylie R Primary Care Provider MD Fermín Donahue Attending Provider MD Jeovanny Mendes Attending Provider Chavez, Kaylie R Primary Care Unavailable Jeovanny Mendes Attending Unavailable Jeovanny Mendes Admitting Unavailable Chavez, SEXTON HELPER Kaylie R Primary Care Provider [phone] MD Fermín Donahue Attending Provider [phone] Prema COUGHLIN, Kala Derick Unavailable Scott RECRUITING OPERATIONS CONSULTANT, Kaylie R Unavailable [facility], Lindy K Unavailable Chavez SEXTON HELPER-TELEPHOTO INSTALLER, Kaylie R Primary Care Provider Scott SEXTON HELPER-TELEPHOTO INSTALLER, Kaylie R Primary Care Provider Scott SEXTON HELPER, Kaylie R Primary Care Provider Fermín Donahue MD Attending Provider Mundo Lopes MD, Sterling Unavailable Unavailyany e Scott SEXTON HELPER-TELEPHOTO INSTALLER, Kaylie R Primary Care Provider [facility], [place] Unavailable Mundo Lopes MD, Sterling Unavailable UnavailLaverne Cole DO Primary Care Provider [phone] Al Shweiki, Sterling Attending Unavailable Al Shweiki, Sterling Referring Unavailable Al Shweiki, Sterling Attending Unavailable Al Shweiki, Sterling Referring Unavailable Al Shweiki, Sterling Attending Unavailable Al Shweiki, Sterling Referring Unavailable Al Shweiki, Sterling Attending Unavailable Al Shweiki, Sterling Referring Unavailable Al Shweiki, Sterling Attending Unavailable Al Shweiki, Sterling Referring Unavailable REYMUNDO GIRON Attending Unavailable REYMUNDO GIRON Referring Unavailable CHAVEZ, KAYLIE R Primary Care Unavailable REYMUNDO GIRON Admitting Unavailable REYMUNDO GIRON Attending Unavailable CHAVEZ, KAYLIE R Referring Unavailable CHAVEZ, KAYLIE R Primary Care Unavailable NIENBERG, MAGALIE Ugalde Attending Unavailable CHAVEZ, KAYLIE R Referring Unavailable CHAVEZ, KAYLIE R Primary Care Unavailable REYMUNDO GIRON Admitting Unavailable REYMUNDO GIRON Attending Unavailable CHAVEZ, KAYLIE R Referring Unavailable CHAVEZ, KAYLIE R Primary Care Unavailable REYMUNDO GIRON Attending Unavailable REYMUNDO GIRON Referring Unavailable CHAVEZ, KAYLIE R Primary Care Unavailable NIENBERG, MAGALIE Ugalde Attending Unavailable CHAVEZ, KAYLIE R Referring Unavailable CHAVEZ, KAYLIE R Primary Care Unavailable REYMUNDO GIRON Admitting Unavailable REYMUNDO GIRON Attending Unavailable CHAVEZ, KAYLIE R Referring Unavailable CHAVEZ, KAYLIE R Primary Care Unavailable REYMUNDO GIRON Attending Unavailable REYMUNDO GIRON Referring Unavailable CHAVEZ, KAYLIE R Primary Care Unavailable NIENBERGMAGALIE Attending Unavailable CHAVEZ, KAYLIE R Referring Unavailable CHAVEZ, KAYLIE R Primary Care Unavailable NIENBERG, MAGALIE Ugalde Attending Unavailable CHAVEZ, KAYLIE R Referring Unavailable CHAVEZ, KAYLIE R Primary Care Unavailable REYMUNDO GIRON Attending Unavailable REYMUNDO GIRON Referring Unavailable CHAVEZ, KAYLIE R Primary Care Unavailable REYMUNDO GIRON Admitting Unavailable REYMUNDO GIRON Attending Unavailable CHAVEZ, KAYLIE R Referring Unavailable CHAVEZ, KAYLIE R Primary Care Unavailable NIENBERGMAGALIE Attending Unavailable KALA LLOYD F Referring Unavailable CHAVEZ, KAYLIE R Primary Care Unavailable NIENBERG, MAGALIE Ugalde Attending Unavailable CHAVEZ, KAYLIE R Referring Unavailable CHAVEZ, KAYLIE R Primary Care Unavailable GIRON, REYMUNDO E Attending Unavailable GIRON, REYMUNDO E Referring Unavailable CHAVEZ, KAYLIE R Primary Care Unavailable GIRON, REYMUNDO E Admitting Unavailable GIRON, REYMUNDO E Attending Unavailable PREMA, KALA F Referring Unavailable CHAVEZ, KAYLIE R Primary Care Unavailable FABBYENBERGMAGALIE Attending Unavailable CHAVEZ, KAYLIE R Referring Unavailable CHAVEZ, KAYLIE R Primary Care Unavailable MAGALIE GREEN Attending Unavailable CHAVEZ, KAYLIE R Referring Unavailable PREMA, KALA F Primary Care Unavailable GIRON REYMUNDO E Attending Unavailable GIRON, REYMUNDO E Referring Unavailable PETZNLAVERNE PAZ M Primary Care Unavailable GIRON, REYMUNDO E Admitting Unavailable GIRON, REYMUNDO E Attending Unavailable CHAVEZ, KAYLIE R Referring Unavailable PETLAVERNE COLES Primary Care Unavailable LINDY VALENTINO Attending Unavailabl ELIAZAR Yost Attending Unavailable LINDY VALENTINO Attending Unavailabl e PREMA, KALA F Attending Unavailable PREMA KALA F Attending Unavailable PREMA, KALA F Referring Unavailable PETLAVERNE COLES Attending Unavailable LINDY VALENTINO Attending Unavailabl e PREMA, KALA F Referring Unavailable ELIAZAR PIRES Attending Unavailable DANII MANLEY Attending Unavailable LINDY VALENTINO Attending Unavailabl e PREMA, KALA F Attending Unavailable LINDY VALENTINO Attending Unavailabl e LAVERNE PORTER Attending Unavailable ELIAZAR PIRES Attending Unavailable PREMA, KALA F Attending Unavailable MARYLOU LAY Attending Unavailable PREMA, KALA F Referring Unavailable BRINKSUMI Attending Unavailable PREMA, KALA F Referring Unavailable BRSUMI ARAIZA Attending Unavailable PREMA, KALA F Referring Unavailable ELIAZAR PIRES Attending Unavailable SUMI COTTRELL Attending Unavailable PREMA, KALA F Referring Unavailable CHICHOLINDY KEARNEY Attending Unavailabl e BRSUMI ARAIZA Attending Unavailable PREMA, KALA F Referring Unavailable PETZNLAVERNE PAZ Attending Unavailable SUMI COTTRELL Attending Unavailable PREMA, KALA F Referring Unavailable BRINKSUMI Attending Unavailable PREMA, KALA F Referring Unavailable OMIDDANII MILLER Attending Unavailable KIP WEBSTER Attending Unavailable PREMA, KALA F Referring Unavailable ELIAZAR PIRES Attending Unavailable LAVERNE PORTER Attending Unavailable LINDY VALENTINO Attending Unavailabl e PREMA, KALA F Attending Unavailable LINDY VALENTINO Attending Unavailabl e Allergies Allergy ClassificationReported Allergen(s)Allergy TypeDate of OnsetReaction(s) Facility (15 sources)Coconut extractDrug Zmohagc00-18-5453VidhsdrK[facility] (20 sources)Codeine; Translations: [codeine]Drug Awvuolk23-56-9991AujxnefPremier Health [facility] (20 sources)dapagliflozin; Translations: [DAPAGLIFLOZIN]Drug Boheuou99-68-3046 [facility] (20 sources)Latex; Translations: [latex]Propensity to adverse reactions 94-28-1023VybkRnlqrqlegMercy Health [facility] (5 sources)onionsPropensity to adverse reactionsSt. Vincent Fishers Hospitalhc1.comozarks medical center LensVector Other (20 sources)AcetaminophenDrug Osovila73-45-8674GdktqhjIstblpwrkOur [facility] of [facility] (4 sources)Bee pollenAllergy to kfkqaoezc01-77-7138FmsiqaiysxiDjkdulxcbKindred Hospital [facility] (20 sources)Onion extractDrug Sucildw61-25-6394DgddcsqypxiDiciedkutKindred Hospital [facility] (10 sources)TideAllergy to haupsdfkq66-02-3394VhmlTqwrrnwimMercy Health [facility] Hospital (1 source)Coconut extractDrug Gjronyx35-00-4059Epc [facility] (1 source)CodeineDrug Aplnqfo32-05-9275OigLakehealth [facility] (1 source)LatexDrug allergy (disorder)57-02-4752Php [facility] (1 source)Misc-Food; Translations: [Misc-Food]Food allergy (disorder)06-16-2013 [facility] (1 source)Misc-DrugDrug allergy (disorder)00-89-0434Knb [facility] (20 sources)dapagliflozin; Translations: [DAPAGLIFLOZIN PROPANEDIOL]Drug Allergy 91-07-2984SackQWVM [facility] (20 sources)LatexAllergy to -72-9884QfysehhGKIK Healthcare (20 sources)Coconut FlavorAllergy to drshhehuj75-79-0650OysrfquKWOH Healthcare Work Phone: (20 sources)Coconut Flavoring Agent (Non-Screening)Allergy to substance 43-05-6498VnpwwbjVQBSMercy Health [facility] Hospital Work Phone: (1 source)dapagliflozin; Translations: [DAPAGLIFLOZIN PROPANEDIOL]Drug Allergy 66-48-1545ZfvkNRY Physicians Medications Current Medications MedicationDrug Class(es)DatesSig (Normalized)Sig (Original)[id number] 200 actuat albuterol 0.09 mg/actuat metered dose inhaler (20 sources)beta2-Adrenergic AgonistStart: 45-56-3377dxfk 2 puff(s) by inhalation every six hours as neededAlbuterol Sulfate 90 mcg/actuation HFA aerosol inhaler Active 2 PUFF INHALATION Every 6 hours April 25, 2023 1:00am FreeTextSi puffs as needed Inhalation every 6 hrs; Note: Source Status: Taking; Provider: Danis Loyola ( )Start: 07-17-2021 End: 59-23-4212vgjp 2 puff(s) by inhalation every four hours for wheezing albuterol HFA 90 mcg/act inhaler Indications: Acute bronchitis, unspecified organism , Chronic diarrhea Inhale 2 puffs every 4 (four) hours if needed for wheezing 18 g 3 12/07/2024 ActiveStart: 05-25-2019 End: 79-98-2129shbb 1 puff(s) by inhalation every four to six hours as needed for wheezingAlbuterol Sulfate 90 mcg/actuation Hfa Aerosol Inhaler Discontinued 2 PUFF INHALATION EVERY 4-6 HOURS as needed for Shortness Of Breath Or Wheezing May 25, 2019 12:00am November 21, 2023 2:38pmtake 2 puff(s) by inhalation every six hours as needed for wheezingalbuterol (PROVENTIL HFA;VENTOLIN HFA) 90 mcg/actuation inhaler Inhale 2 puffs every 6 (six) hours as needed for wheezing. Activetake 2 puff(s) by inhalation every six hours as neededAlbuterol Sulfate HFA 108 (90 Base) MCG/ACT 2 puffs as needed Inhalation every 6 hrs Activetake 2 puff(s) by inhalation every six hours as neededAlbuterol Sulfate HFA 108 (90 Base) MCG/ACT 2 puffs as needed Inhalation every 6 hrs ActiveaMILoride hydrochloride 5 mg oral tablet (20 sources)Potassium-sparing DiureticStart: 41-01-5174tukk 1 tablet by mouth once dailyAmiloride 5 mg tablet Active 5 MG PO Daily April 25, 2023 1:00am take 1 tablet by mouth every twelve hoursaMILoride HCl 5 MG 1 tablet with food Orally bid for 90 days Activeatorvastatin 80 mg oral tablet (20 sources)HMG-CoA Reductase InhibitorStart: 19-43-8734xxpf 1 tablet by mouth once daily at bedtimeAtorvastatin 40 mg tablet Active 40 MG PO Daily at bedtime November 21, 2023 12:00amStart: 04-26-2022 End: 22-47-2140fctk 1 tablet by mouth once dailyatorvastatin (Lipitor) 80 MG tablet Indications: Mixed hyperlipidemia Take 1 tablet (80 mg) by mouth Daily 100 tablet 3 07/30/2024 07/30/2025 ActiveStart: 05-15-2018 End: 45-58-7863jrwe 2 tablets by mouth once daily in the morningAtorvastatin 40 mg tablet Discontinued 80 MG PO Every morning May 15, 2018 1:00am April 4:06pmStart: 05-15-2018 End: 85-65-4287rxsi 80 mg by mouth once daily in the morningAtorvastatin Discontinued 80 MG PO Every morning May 15, 2018 1:00am April 22, 2020 4:06pmbismuth subsalicylate 262 mg chewable tablet (1 source)BismuthStart: 38-23-3723podq 1 tablet by mouth twice dailyBismuth 262 MG 1 tablet Orally twice daily for 14 days July, ActiveBlood Glucose Monitoring Suppl ([employer]) w/Device kit (20 sources)Start: 79-39-9360Wwqzp Glucose Monitoring Suppl ([employer]) w/Device kit Indications: Type 2 diabetes mellitus with stage 3a chronic kidney disease, with long-term current use of insulin ([facility]) Fsbs daily 1 kit 10/21/2023 ActiveStart: 32-50-1536Ebpby Glucose Monitoring Suppl ([employer]) w/Device kit Indications: Type 2 diabetes mellitus with stage 3a chronic kidney disease, with long-term current use of insulin (HCC) ([facility]/HCC) Fsbs daily 1 kit 10/21/2023 Activeblood-glucose sensor (DEXCOM G6 SENSOR) device (20 sources)blood-glucose sensor (DEXCOM G6 SENSOR) device by miscellaneous route. Activeblood-glucose sensor (DEXCOM G6 SENSOR) device by miscellaneous route. 0 Activecefuroxime 500 mg oral tablet (12 sources)Cephalosporin AntibacterialStart: 04-05-2023 End: 91-88-4869bhdf 1 tablet by mouth in the morningcefuroxime (Ceftin) 500 MG tablet Indications: Acute bronchitis, unspecified organism Take 1 tablet(500 mg) by mouth in the morning and 1 tablet (500 mg) before bedtime. Do all this for 10 days. 20 tablet 0 04/05/2023 04/15/2023 ActiveStart: 07-24-2019 End: 36-77-9582cigv 1 tablet by mouth twice dailyCefuroxime Axetil 250 mg Tablet Discontinued 250 MG PO Twice daily July 24, 2019 12:00am August 20, 2019 1:24pm cetirizine hydrochloride 10 mg oral tablet (20 sources)Histamine-1 Receptor AntagonistStart: 09-06-2023 End: 79-14-1829zobe 1 tablet by mouth once dailycetirizine (ZyrTEC) 10 MG tablet Indications: Seasonal allergic rhinitis due to pollen Take 1 tablet (10 mg) by mouth Daily 90 tablet 1 07/30/2024 ActiveStart: 05-25-2019 End: 85-84-3157okzh 1 tablet by mouth once dailyCetirizine 10 mg Tablet Discontinued 10 MG PO Daily May 25, 2019 12:00am April 25, 2023 3:45pm chlorproMAZINE hydrochloride 200 mg oral tablet (20 sources)PhenothiazineStart: 88-52-9069ccxa 1 tablet by mouth once Chlorpromazine 200 mg tablet Active 200 MG PO Once April 25, 2023 1:00am Start: 05-15-2018 End: 85-17-1663kfjr 1 tablet by mouth three times dailyChlorpromazine 200 mg tablet Discontinued 200 MG PO Three times daily May 15, 2018 1:00am April 25, 2023 3:45pmStart: 87-22-3916Eugsvfrojixsws Active 100 MG PO As Directed May 15, 2018 1:00amStart: 28-23-8418cgvr 500 mg by mouth at bedtime Chlorpromazine Active 500 MG PO Bedtime May 15, 2018 12:00amStart: 05-15-2018 End: 12-10-0492tejp 1 tablet by mouth twice dailyChlorpromazine 50 mg tablet Discontinued 50 MG PO Twice daily May 15, 2018 1:00am May 25, 2019 10:57amtake 3 tablets by mouth at bedtimechlorproMAZINE (Thorazine) 200 MG tablet Take 600 mg by mouth at bedtime Activetake 1 tablet by mouth every eight hourschlorproMAZINE (Thorazine) 200 MG tablet Take 200 mg by mouth every 8 (eight) hours. Activecholecalciferol 1.25 mg oral capsule (20 sources)Vitamin DStart: 11-98-4580zjtk 1 capsule by mouth every week Cholecalciferol (Vitamin D3) 1,250 mcg (50,000 unit) capsule Active 1250 MCG PO every week November 21, 2023 12:00amStart: 04-21-2020 End: 10-35-8490bhip 1 tablet by mouth once dailyCholecalciferol (Vitamin D3) 10 mcg (400 unit) Tablet Discontinued 10 MCG PO Daily April 21, 2020 1:00am April 27, 2022 10:40amtake 1 tablet by mouth every weekcholecalciferol (Vitamin D-3) 1.25 MG (48092 UT) tablet Take 50,000 Units by mouth 1 (one) time perweek Activecholecalciferol (VITAMIN D3) 50,000 units capsule Take 5,000 Units by mouth once a week. Activetake 1 capsule by mouth every weekcholecalciferol (Vitamin D-3) 1.25 MG (21504 UT) capsule Take 50,000 Units by mouth 1 (one) time per week. 0 ActiveContinuous Glucose Modeling Agent (Dexcom G7 Modeling Agent) device (20 sources)Start: 50-02-6055Tgrcevqhcf Glucose Modeling Agent (Dexcom G7 Modeling Agent) device Indications: Type 2 diabetes mellitus with stage 3a chronic kidney disease, with long-term current use of insulin (HCC) 1 Device See administration instructions 1 each 10/22/2023 ActiveStart: 55-27-0435Dnoyzvonna Glucose Modeling Agent (Dexcom G7 Modeling Agent) device Indications: Type 2 diabetes mellitus with stage 3a chronic kidney disease, with long-term current use of insulin (HCC) ([facility]/HCC) 1 Device See administration instructions 1 each 10/22/2023 Active Continuous Glucose Sensor (Dexcom G7 Sensor) [facility] (20 sources)Start: 91-44-9386Fkzpuqzuvc Glucose Sensor (Dexcom G7 Sensor) [facility] Indications: Type 2 diabetes mellitus with stage 3a chronic kidney disease, with long-term current use of insulin (HCC) Inject 1 Device under the skin Every 10 (ten) days 9 each 3 05/19/2024 ActiveStart: 41-01-5658Sjrcwbhxue Glucose Sensor (Dexcom G7 Sensor) [facility] Indications: Type 2 diabetes mellitus with stage 3a chronic kidney disease, with long-term current use of insulin (HCC) (CMS/HCC) Inject 1 Device under the skin Every 10 (ten) days 9 each 3 05/19/2024 Active Start: 10-22-2023 End: 51-62-3924Tvbwruhxda Glucose Sensor (Dexcom G7 Sensor) [facility] Indications: Type 2 diabetes mellitus with stage 3a chronic kidney disease, with long-term current use of insulin (HCC) (CMS/HCC) Inject 1 Device under the skin Every 10 (ten) days 9 each 3 10/22/2023 05/19/2024 Discontinued (Reorder)Start: 33-64-8141Tduuyqoqlc Glucose Sensor (Dexcom G7 Sensor) [facility] Indications: Type 2 diabetes mellitus with stage 3a chronic kidney disease, with long-term current use of insulin (HCC) (CMS/HCC) Inject 1 Device under the skin Every 10 (ten) days 9 each 3 10/22/2023 Activedoxepin hydrochloride 50 mg oral capsule (20 sources)Tricyclic AntidepressantStart: 84-17-7095afta 1 capsule by mouth three times dailyDoxepin 50 mg capsule Active 50 MG PO Three times daily May 15, 2018 1:00amtake 1 capsule by mouth once daily at bedtimedoxepin 50 mg capsule take 1 capsule by oral route every day at bedtime 50 MG - Active doxycycline monohydrate 100 mg oral tablet (9 sources)Tetracycline-class DrugStart: 12-07-2024 End: 24-49-1680wiqh 1 tablet by mouth in the morningdoxycycline (Adoxa) 100 MG tablet Indications: Acute bronchitis, unspecified organism Take 1 tablet(100 mg) by mouth in the morning and 1 tablet (100 mg) before bedtime. Do all this for 10 days. Take with a full glass of water and do not lie down for at least 30 minutes after. 20 tablet ActiveStart: 07-30-2024 End: 95-58-0417blrp 1 tablet by mouth in the morningdoxycycline (Vibra-Tabs) 100 MG tablet Indications: Acute bronchitis, unspecified organism Take 1 tablet (100 mg) by mouth in the morning and 1 tablet (100 mg) before bedtime. Do all this for 10 days. Take with a full glass of water and do not lie down for at least 30 minutes after. 20 tablet 07/30/2024 08/09/2024 ActiveStart: 01-31-2024 End: 90-03-2824ehdegncdjmb (Vibra-Tabs) 100 MG tablet Indications: Acute bronchitis, unspecified organism , Chronic diarrhea Take 1 tablet (100 mg) by mouth in the morning and 1 tablet (100 mg) before bedtime. Do all this for 10 days. Take with a full glass of water and do not lie down for at least 30 minutes after.. 20 tablet 01/31/2024 02/10/2024 Active0.5 ml dulaglutide 1.5 mg/ml auto-injector (20 sources)GLP-1 Receptor AgonistStart: 08-28-2024 End: 49-99-2032ekdgua 0.75 mg by subcutaneous injection every weekDulaglutide (Trulicity) 0.75 MG/0.5ML solution auto-injector Indications: Type 2 diabetes mellitus with peripheral neuropathy (HCC) Inject 0.75 mg under the skin 1 (one) time per week 6 mL 3 08/28/2024 08/28/2025 ActiveStart: 08-28-2024 End: 70-15-3781wvapod 0.5 mL by subcutaneous injection every weekTRULICITY 0.75 mg/0.5 mL pen injector Inject 0.5 mL (0.75 mg total) under the skin once a week. INJECT 0.75 MG UNDER THE SKIN 1 (ONE) TIME PER WEEK 08/28/2024 08/28/2025 Active [id number] 0.3 ml EPINEPHrine 1 mg/ml auto-injector (20 sources)alpha-Adrenergic Agonist, beta-Adrenergic Agonist, Catecholamine Start: 89-35-2578PBAMCSObqkj (EpiPen 2-Arnaldo) 0.3 MG/0.3ML injection syringe Inject 1 Syringe as directed 1 (one) time11/02/2021 ActiveEPINEPHrine (ADRENALIN) 1 mg/mL injection Inject into the appropriate muscle once. Active ergocalciferol 1.25 mg oral capsule (20 sources)Provitamin D2 CompoundStart: 22-80-4383haws 1 capsule by mouth every weekergocalciferol (Vitamin D2) 1.25 MG (05586 UT) capsule Indications: Vitamin D deficiency Take 1 capsule by mouth once a week 12 capsule 09/02/2024 Active Start: 64-17-8069Clbiecmruprdba (Vitamin D2) 1,250 mcg (50,000 unit) capsule Active 22128 UNIT PO every week June 18, 2024 12:00amStart: 12-30-2023 End: 06-71-9590qrfk 1 capsule by mouth every weekergocalciferol (Vitamin D2) 1.25 MG (35366 UT) capsule Indications: Vitamin D deficiency Take 1 capsule by mouth once a week 12 capsule 06/09/2024 ActiveStart: 05-25-2019 End: 87-65-0387Ydrxzhilmxybxh (Vitamin D2) (Vitamin D2) 1,250 mcg (50,000 unit) Capsule Discontinued 34164 UNIT POAs Directed May 25, 2019 12:00am April 26, 2022 3:35pm take twice weeklytake 1 capsule by mouth two times weekly Vitamin D (Ergocalciferol) 1.25 MG (46128 UT) 1 capsule Orally twice a week Activeetodolac 300 mg oral capsule (20 sources)Nonsteroidal Anti-inflammatory DrugStart: 27-71-8972bexj 1 capsule by mouth every eight hoursetodolac (Lodine) 300 MG capsule Take 300 mg by mouth every 8 (eight) hours 09/05/2024 Activeezetimibe 10 mg oral tablet (20 sources)Dietary Cholesterol Absorption InhibitorStart: 12-02-2020 End: 84-87-6316oojl 1 tablet by mouth once dailyezetimibe (Zetia) 10 MG tablet Indications: Hyperlipidemia, unspecified hyperlipidemia type Take 1 tablet (10 mg) by mouth Daily 100 tablet 3 07/30/2024 07/30/2025 Activefluticasone propionate 0.05 mg/actuat metered dose nasal spray (20 sources)CorticosteroidStart: 06-20-4660fzei 2 spray(s) nasal route once dailyfluticasone (Flonase) 50 MCG/ACT nasal spray Indications: Seasonal allergic rhinitis due to pollen Administer 2 sprays into each nostril Daily 16 g 2 07/30/2024 ActiveStart: 33-47-0572gklc 1 spray(s) nasal route once daily Fluticasone Propionate 50 mcg/actuation spray,suspension Active 1 SPRAY INTRANASAL Daily April 25, 2023 1:00am FreeTextSi spray in each nostril Nasally Once a day; Note: Source Status: Taking; Provider: Danis Loyola ( )Start: 07-24-2019 End: 36-70-5564Qpophsxmrus Propionate 50 mcg/actuation spray,suspension Discontinued 2 SPRAY INTRANASAL Daily July 24, 2019 12:00am April 26, 2022 3:43pmStart: 09-06-2014 End: 68-45-4002qjyu 2 spray(s) nasal route in the morningfluticasone (Flonase) 50 MCG/ACT nasal spray Administer 2 sprays into each nostril in the morning. 0 09/06/2014 07/30/2024 Discontinued (Reorder)take 2 spray(s) nasal route in the morningfluticasone propionate (FLONASE) 50 mcg/actuation nasal spray Administer 2 sprays into each nostrilin the morning. Activetake 2 puff(s) by inhalation twice dailyArmonAir Digihaler 55 mcg/actuation aerosol powder breath act, sensor inhale 2 puff by inhalation route 2 times every day - Activetake 1 spray(s) nasal route once dailyFluticasone Propionate 50 MCG/ACT 1 spray in each nostril Nasally Once a day Activegabapentin 800 mg oral tablet (20 sources)Anti-epileptic AgentStart: 91-41-1595lwqy 1 tablet by mouth four times dailyGabapentin 800 mg tablet Active 800 MG PO Four times daily May 15, 2018 1:00amtake 1 tablet by mouth every twelve hoursgabapentin 800 mg tablet take 1 tablet by oral route 2 times every day 800 MG - Activetake 1 tablet by mouth every six hoursgabapentin (Neurontin) 800 MG tablet Take 800 mg by mouth every 6 (six) hours. 0 ActiveInsulin Aspart U-100 (Novolog Flexpen U-100 Insulin) 100 unit/mL (3 mL) Insulin Pen (10 sources)Start: 45-44-1251Cikcjwy Aspart U-100 (Novolog Flexpen U-100 Insulin) 100 unit/mL (3 mL) Insulin Pen Active 15 - 40 UNIT SUBCUT THREE TIMES DAILY WITH MEALS May 25, 2019 12:00am Please contact the information source for Protocol details.Start: 59-79-7484Pidbkoo Aspart U-100 (Novolog Flexpen U- 100 Insulin) 100 unit/mL (3 mL) Insulin Pen Active 15 - 40 UNIT SUBCUT THREE TIMES DAILY WITH MEALS May 25, 2019 12:00amStart: 83-81-2534Bagkduf Aspart U-100 (Novolog Flexpen U-100 Insulin) 100 unit/mL (3 mL) Insulin Pen Active 15 - 40 UNIT SUBCUT THREE TIMES DAILY WITH MEALS May 24, 2019 11:00pm3 ml insulin aspart, human 100 unt/ml pen injector (20 sources)Insulin AnalogStart: 05-19-2024 End: 11-12-0123hnvrqgs aspart (NovoLOG FlexPen ReliOn) 100 UNIT/ML pen Indications: Type 2 diabetes mellitus with peripheral neuropathy (HCC) 20 units small meals , 40 units large meals plus correction 1:30 > 150 mg/dl (max daily 100 units) 30 mL 3 12/01/2024 ActiveStart: 01-20-2024 End: 95-43-5855fxrxugt aspart (NovoLOG FlexPen ReliOn) 100 UNIT/ML pen Indications: Type 2 diabetes mellitus with peripheral neuropathy (CMS/HCC) 15 units breakfast/lunch, 30 units dinner (max daily 80 units) 30 mL3 01/20/2024 05/19/2024 Discontinued (Reorder)Start: 08-12-2023 End: 91-41-6916ootnno 10 [IU] by subcutaneous injection at mealtimeinsulin aspart (NovoLOG FlexPen ReliOn) 100 UNIT/ML pen Indications: Type 2 diabetes mellitus with peripheral neuropathy (CMS/HCC) INJECT 10 UNITS SUBCUTANEOUSLY WITH SMALL MEALS AND 30 UNITS WITH LARGE MEALS. (MAX DAILY AMOUNT 100 UNITS) 30 mL 3 08/12/2023 01/20/2024 Discontinued (Dose adjustment)Start: 04-03-2023 insulin aspart (NovoLOG) 100 UNIT/ML pen Indications: Type 2 diabetes mellitus with peripheral neuropathy (CMS/HCC) 10 units small meals, 20 units medium, 35 units large meals plus correction 2:30 > 150 mg/dl (max daily 100 units) 30 mL 2 04/03/2023 ActiveStart: 05-15-2018 End: 59-04-7544loqgks 30 [IU] by subcutaneous injection four times dailyInsulin Aspart U-100 Discontinued 30 UNITS SUBCUT Four times daily May 15, 2018 1:00am May 25, 2019 11:05amStart: 05-15-2018 End: 04-16-8652fqvhqn 30 [IU] by subcutaneous injection four times dailyInsulin Aspart U-100 Discontinued 30 UNITS SUBCUT Four times daily May 15, 2018 12:00am May 25, 2019 10:05aminsulin aspart U-100 (NovoLOG) 100 unit/mL injection Inject under the skin in the morning and at noon and in the evening. Inject before meals. Sliding scale . Activeinsulin aspart U-100 (NovoLOG) 100 unit/mL injection Inject under the skin 3 (three) times a day before meals. Sliding scale ActiveNovoLOG 100 UNIT/ML 30 UNITS FOR SMALL MEALS, 45 UNITS FOR LARGE MEALS Subcutaneous NEEDED Active3 ml insulin glargine 100 unt/ml pen injector (20 sources)Insulin AnalogStart: 04-13-2024 End: 14-85-1049jzuhue 35 [IU] by subcutaneous injection in the morninginsulin glargine (Lantus SoloStar) 100 UNIT/ML pen Indications: Type 2 diabetes mellitus with peripheral neuropathy (HCC) Inject 35 Units under the skin in the morning and 35 Units before bedtime. 30mL 3 08/28/2024 08/28/2025 ActiveStart: 85-83-5191Bkslzml Glargine (Lantus Solostar U-100 Insulin) 100 unit/mL (3 mL) insulin pen Active 35 UNIT SUBCUT Twice daily November 21, 2023 2:47pmStart: 81-21-4780aolqsx 35 [IU] by subcutaneous injection in the morninginsulin glargine (Lantus SoloStar) 100 UNIT/ML pen Indications: Type 2 diabetes mellitus with peripheral neuropathy (CMS/HCC) Inject 35 Units under the skin in the morning and 35 Units before bedtime. 30 mL 3 10/21/2023 ActiveStart: 04-25-2023 End: 36-93-0607Kwbkaqw Glargine (Lantus Solostar U-100 Insulin) 100 unit/mL (3 mL) insulin pen Discontinued 40 UNIT SUBCUT Twice daily April 25, 2023 3:43pm November 21, 2023 2:47pmStart: 04-02-2023 End: 62-84-3876dkswvq 40 [IU] by subcutaneous injection in the morninginsulin glargine (Lantus SoloStar) 100 UNIT/ML pen Indications: Type 2 diabetes mellitus with peripheral neuropathy (HCC) Inject 40 Units under the skin in the morning and 40 Units before bedtime. 30mL 3 05/19/2024 08/28/2024 Discontinued (Dose adjustment)Start: 04-21-2020 End: 74-89-1442Bnfxnqu Glargine (Lantus Solostar U-100 Insulin) 100 unit/mL (3 mL) insulin pen Discontinued 50 UNIT SUBCUT Twice daily April 21, 2020 1:00am April 25, 2023 3:48pmStart: 81-06-5141Zsqtuhy Glargine (Lantus Solostar U-100 Insulin) 100 unit/mL (3 mL) insulin pen Active 45 UNIT SUBCUT Twice daily April 21, 2020 12:00amStart: 05-25-2019 End: 22-39-4345gwauhi 35 [IU] by subcutaneous injection twice dailyInsulin Glargine 100 unit/mL (3 mL) insulin pen Discontinued 35 UNIT SUBCUT Twice daily May 12:00am April 26, 2022 3:44pmStart: 05-15-2018 End: 98-93-2133zkupui 35 mg by subcutaneous injection twice dailyInsulin Glargine 100 unit/mL (3 mL) insulin pen Discontinued 35 MG SUBCUT Twice daily May 15, 2018 1:00am May 25, 2019 11:05amLantus Solostar U-100 Insulin 100 unit/mL (3 mL) subcutaneous pen inject by subcutaneous route as per insulin protocol 0.00 - Activeinject 40 [IU] by subcutaneous injection in the morning insulin glargine (LANTUS, BASAGLAR) 100 unit/mL (3 mL) insulin pen Inject 40 Units under the skin in the morning and 40 Units before bedtime. 0 ActiveLantus SoloStar 100 UNIT/ML as directed Subcutaneous 40 UNITS TWICE A DAY Active3 ml insulin isophane, human 100 unt/ml pen injector (2 sources)Novolin N FlexPen 100 unit/mL (3 mL) subcutaneous insulin pen inject by subcutaneous route per prescriber's instructions. Insulin dosing requires individualization. 0.00 - Activeketorolac tromethamine 4 mg/ml ophthalmic solution (20 sources)Nonsteroidal Anti-inflammatory Drug, Cyclooxygenase InhibitorStart: 35-33-7161zdui 1 drop(s) into the eye(s) in the morning, then take 1 drop(s) into the eye(s) in the evening, then take 1 drop(s) into the eye(s) at bedtime ketorolac (Acular) 0.4 % ophthalmic solution Administer 1 drop into both eyes in the morning and 1 drop in the evening and 1 drop before bedtime. 07/18/2024 ActiveStart: 06-23-2024 End: 50-55-9966srfu 1 drop(s) into the eye(s) three times dailyketorolac 0.4 % eye drops instill 1 drop by ophthalmic route 3 times every day into the both eyes 1drop - No Longer Active substitutions are acceptableComment on above:substitutions are acceptablelisinopril 20 mg oral tablet (20 sources)Angiotensin Converting Enzyme InhibitorStart: 05-15-2018 End: 61-19-3280quwi 1 tablet by mouth once dailylisinopril 20 MG tablet Indications: Primary hypertension Take 1 tablet (20 mg) by mouth Daily 100 t ablet 3 07/30/2024 07/30/2025 ActiveLORazepam 1 mg oral tablet (20 sources)BenzodiazepineStart: 27-67-1813yitm 1 tablet by mouth three times daily as needed for anxietyLORazepam (Ativan) 1 MG tablet Take 1 mg by mouth 3 (three) times a day as needed for anxiety 05/14/2023 ActiveStart: 22-43-2279mtbb 2 tablets by mouth four times dailyLorazepam (Ativan) 0.5 mg tablet Active 1 MG PO Four times daily April 25, 2023 3:36pmStart: 05-18-2022 End: 72-29-9893ehfg 1 tablet by mouth three times dailyLorazepam (Ativan) 0.5 mg Tablet Discontinued 0.5 MG PO Three times daily May 18, 2022 1:00am Kate pacheco 2023 3:48pmStart: 40-95-4337mcoi 1 tablet by mouth once daily Lorazepam (Ativan) 0.5 mg Tablet Active 0.5 MG PO Daily May 18, 2022 1:00am take 2 tablets by mouth every six hours as needed for anxietyLORazepam (ATIVAN) 0.5 mg tablet Take 2 tablets (1 mg total) by mouth every 6 (six) hours as needed for anxiety. 0.5-1 mg daily 2 tablets at HS Activetake 1 tablet by mouth every twelve hoursAtivan 0.5 mg tablet take 1 tablet by oral route 2 times every day as needed 0.5 MG - Activetake 2 tablets by mouth in the morning, then take 2 tablets by mouth in the evening, then take 2 tablets by mouth at bedtime LORazepam (Ativan) 0.5 MG tablet Take 1 mg by mouth in the morning and 1 mg in the evening and 1 mgbefore bedtime. 0 Activetake 1 tablet by mouth every six hours as needed for anxietyLORazepam (ATIVAN) 0.5 mg tablet Take 1 tablet (0.5 mg total) by mouth every 6 (six) hours as needed for anxiety. 0.5-1 mg daily 2 tablets at HS 0 ActiveMagnesium (2 sources)magnesium 200 mg (as magnesium oxide) chewable tablet - Active magnesium oxide 400 mg oral tablet (20 sources)Start: 78-14-3884gsrx 1 tablet by mouth in the morningMAGnesium- Oxide 400 (240 Mg) MG tablet Indications: Hypomagnesemia Take 1 tablet (400 mg) by mouth in the morning and 1 tablet (400 mg) before bedtime. 30 tablet 3 12/28/2024 ActiveStart: 06-18-2024 End: 60-87-1335jhhn 1 tablet by mouth twice dailyMagnesium Oxide 400 mg (241.3 mg magnesium) tablet Active 400 MG PO Twice daily 180 June 18, 2024 2:13pm Start: 06-18-2024 End: 25-06-4644qcbz 1 tablet by mouth once dailyMagnesium Oxide 400 mg (241.3 mg magnesium) tablet Discontinued 400 MG PO Daily June 18, 2024 12:00am June 18, 2024 2:13pmStart: 02-26-2024 End: 51-81-2597gdrf 1 tablet by mouth once dailyMAGnesium-Oxide 400 (240 Mg) MG tablet Indications: Hypomagnesemia Take 1 tablet by mouth once daily 30 tablet 3 02/26/2024 12/28/2024 Discontinued (Reorder)Start: 12-30-2023 End: 04-33-3963ctqa 1 tablet by mouth once dailyMagnesium Oxide -Mg Supplement 400 MG capsule Indications: Hypomagnesemia Take 1 tablet by mouth Daily 30 capsule 1 12/30/2023 03/29/2024 ActiveStart: 04-25-2023 End: 69-49-4470thpz 1 tablet by mouth twice dailyMagnesium Oxide 400 mg magnesium tablet Discontinued 400 MG PO Twice daily April 25, 2023 4:08pm November 21, 2023 2:57pmStart: 04-26-2022 End: 10-93-2409pmsd 1 tablet by mouth once dailyMagnesium Oxide 400 mg magnesium Tablet Discontinued 400 MG PO Daily April 26, 2022 1:00am April 25, 2023 4:08pmtake 1 tablet by mouth twice daily at mealtimeMagnesium Oxide 400 (240 Mg) MG 1 tablet with food Orally bid for 90 day(s) ActivemetFORMIN hydrochloride 1000 mg oral tablet (20 sources)BiguanideStart: 05-15-2018 End: 38-18-7381dkmr 1 tablet by mouth in the morningmetFORMIN (Glucophage) 1000 MG tablet Indications: Type 2 diabetes mellitus with peripheral neuropathy (HCC) Take 1 tablet (1,000 mg) by mouth in the morning and 1 tablet (1,000 mg) before bedtime. 200 tablet 3 07/30/2024 07/30/2025 Activetake 1 tablet by mouth every twenty-four hours in the morning, then take 1 tablet by mouth at mealtime metFORMIN (GLUMETZA) 1000 MG (MOD) 24 hr tablet Take 1 tablet (1,000 mg total) by mouth in the morning and 1 tablet (1,000 mg total) in the evening. Take with meals. Activemethocarbamol 500 mg oral tablet (20 sources)Muscle RelaxantStart: 09-25-1688jteg 1 tablet by mouth every eight hours as neededmethocarbamol (Robaxin) 500 MG tablet Take 500 mg by mouth every 8 (eight) hours if needed 09/05/2024 ActivemetroNIDAZOLE 500 mg oral tablet (1 source)Nitroimidazole AntimicrobialStart: 98-31-8576tjmx 1 tablet by mouth every twelve hoursmetroNIDAZOLE 500 MG 1 tablet Orally Twice a day for 14 days July, Activemontelukast 10 mg oral tablet (20 sources)Leukotriene Receptor AntagonistStart: 08-07-2022 End: 64-85-3171zbos 1 tablet by mouth at bedtimemontelukast (Singulair) 10 MG tablet Indications: Seasonal allergic rhinitis due to pollen Take 1 tablet (10 mg) by mouth at bedtime 100 tablet 1 07/30/2024 Zccynu93 actuat olodaterol 0.0025 mg/actuat / tiotropium 0.0025 mg/actuat inhalation spray (20 sources)Anticholinergic, beta2-Adrenergic AgonistStart: 01-31-2024 tiotropium-olodaterol (Stiolto Respimat) 2.5-2.5 MCG/ACT aerosol solution inhaler Indications: Acute bronchitis, unspecified organism , Chronic diarrhea Inhale 2 Inhalation Daily 4 g 11 01/31/2024 ActiveStart: 87-63-8252Vquydlsclm- Olodaterol (Stiolto Respimat) 2.5-2.5 mcg/actuation Mist Active 2 PUFF INHALATION Daily April 26, 2022 1:00amStart: 46-93-1901Lnbviglvpq- Olodaterol (Stiolto Respimat) 2.5-2.5 mcg/actuation Mist Active 2 PUFF INHALATION Daily April 26, 2022 12:00amStart: 11-03-2021 End: 89-14-8746amfoimorqm-olodaterol (Stiolto Respimat) 2.5-2.5 MCG/ACT aerosol solution inhaler Inhale 2 Inhalation in the morning. 11/03/2021 01/31/2024 Discontinued (Reorder)tiotropium-olodateroL (STIOLTO RESPIMAT) 2.5-2.5 mcg/actuation mist Inhale 2 puffs in the morning. ActiveStiolto Respimat 2.5 mcg-2.5 mcg/actuation solution for inhalation inhale 2 puff by inhalation route every day at the same time each day 2.00 puff - Activetiotropium-olodateroL (STIOLTO RESPIMAT) 2.5-2.5 mcg/actuation mist Inhale 2 puffs daily. Active Stiolto Respimat 2.5-2.5 MCG/ACT Inhalation for 30 Days Activeomeprazole 40 mg delayed release oral capsule (1 source)Proton Pump InhibitorStart: 53-94-0657Rnstmfjqon 40 MG 1 capsule 30 minutes before morning meal and evening meal Orally twice a day for 14 days July, Activepantoprazole 40 mg delayed release oral tablet (20 sources)Proton Pump InhibitorStart: 07-30-2024 End: 05-52-0976xwof 1 tablet by mouth oncepantoprazole (Protonix) 40 MG EC tablet Indications: Gastroesophageal reflux disease without esophagitis Take 1 tablet (40 mg) by mouth every 12 (twelve) hours 200 tablet 3 07/30/2024 07/30/2025 ActiveStart: 05-07-2018 End: 71-77-0690emhi 1 tablet by mouth twice dailyPantoprazole 40 mg tablet,delayed release (DR/EC) Discontinued 40 MG PO Twice daily May 15, 2018 1:00am December 02, 2020 9:29ampolyethylene glycol 3350 17428 mg powder for oral solution (1 source)Osmotic LaxativeStart: 05-10-2024 End: 16-99-5838qbhhdimmcwpj glycol, PEG, 3350 (MiraLax) 17 GM/SCOOP powder Indications: Constipation, unspecified constipation type Take 17 g by mouth Daily for 3 days 527 g 2 05/10/2024 05/13/2024 Activepolyethylene glycol 3350 137068 mg / potassium chloride 2970 mg / sodium bicarbonate 6740 mg / sodium chloride 5860 mg / sodium sulfate 32194 mg powder for oral solution (1 source)Osmotic LaxativeStart: 62-50-9981UFG-3350/Electrolytes 236 GM as directed Orally once daily for 1 days July, ActivepredniSONE 20 mg oral tablet (4 sources)Start: 12-07-2024 End: 24-37-1083qups 2 tablets by mouth once dailypredniSONE (Deltasone) 20 MG tablet Indications: Acute bronchitis, unspecified organism Take 2 tablets (40 mg) by mouth Daily for 5 days 10 tablet 12/07/2024 12/12/2024 ActiveStart: 89-33-7183sicj 2 tablets by mouth once daily, then take 1 tablet by mouth once dailypredniSONE (Deltasone) 20 MG tablet Indications: Acute bronchitis, unspecified organism 2 po every day x 2 days then 1 po every day x 2 days 5 tablet 0 04/05/2023 ActiverOPINIRole 0.25 mg oral tablet (20 sources)Nonergot Dopamine AgonistStart: 06-20-6223vWQVEMLfry (Requip) 0.25 MG tablet Take 0.25 mg by mouth as needed at bedtime 04/19/2016 Activetake 1 tablet by mouth every eight hoursropinirole 0.25 mg tablet take 1 tablet by oral route 3 times every day 0.25 MG - Activetetracycline hydrochloride 500 mg oral capsule (1 source)Tetracycline-class AntimicrobialStart: 21-24-5161ldsn 1 capsule by mouth twice dailyTetracycline HCl 500 MG 1 capsule on an empty stomach Orally twice daily for 14 days July, ActivetiZANidine 4 mg oral tablet (20 sources)Central alpha-2 Adrenergic AgonistStart: 02-27-2023 End: 96-42-6352sfud 1 tablet by mouth twice daily as needed for muscle spasms tiZANidine (ZANAFLEX) 4 mg tablet Take 1 tablet (4 mg total) by mouth 2 (two) times a day as neededfor muscle spasms. 60 tablet 1 02/27/2023 Activetake 1 tablet by mouth every six hourstizanidine 4 mg tablet take 1 tablet by oral route every 6 - 12 hours as needed not to exceed 3 doses in 24 hours 4 MG - Lwrdrc25 hr divalproex sodium 500 mg extended release oral tablet (20 sources)Mood Stabilizer, Anti-epileptic AgentStart: 91-99-6061cfhr 2 tablets by mouth twice daily in the morning, then take 3 tablets by mouth twice daily in theeveningDivalproex 500 mg tablet extended release 24 hr Active 0 PO Twice daily November 21, 2023 2:43pm2 tabs in am, 3 tabs in pm orally twice daily; Start: 04-25-2023 End: 67-42-0309Mnxjlwnehq 500 mg tablet extended release 24 hr Discontinued 1500 MG PO Daily April 25, 2023 1:00am November 21, 2023 2:47pmStart: 04-25-2023 End: 94-14-8846cmml 1500 mg by mouth once dailyDivalproex Discontinued 1500 MG PO Daily April 25, 2023 1:00am November 21, 2023 2:47pmStart: 04-26-2022 End: 88-08-5303daxc 1 tablet by mouth once dailyDivalproex (Depakote Er) 500 mg Tablet Extended Release 24 Hr Discontinued 500 MG PO Daily 2022 1:00am April 25, 2023 3:44pmStart: 05-25-2019 End: 27-82-2040Xcbtfdwxim 500 mg tablet extended release 24 hr Discontinued 1500 MG PO Daily at bedtime May 25, 2019 12:00am April 21, 2020 5:05pm Start: 05-25-2019 End: 26-05-9530Ufmyzufbqm 500 mg tablet extended release 24 hr Discontinued 1000 MG PO Every morning May 25, 2019 12:00am April 26, 2022 3:34pmStart: 05-25-2019 End: 57-99-4363ezej 1500 mg by mouth once daily at bedtimeDivalproex Discontinued 1500 MG PO Daily at bedtime May 25, 2019 12:00am April 21, 2020 5:05pmStart: 05-25-2019 End: 45-10-8421rmoi 1000 mg by mouth once daily in the morningDivalproex Discontinued 1000 MG PO Every morning May 25, 2019 12:00am April 26, 2022 3:34pmtake 3 tablets by mouth every twenty-four hours at bedtimedivalproex (Depakote ER) 500 MG 24 hr tablet Take by mouth 3 tablets at bedtime Activetake 3 tablets by mouth once dailydivalproex (DEPAKOTE) 500 mg EC tablet Take 3 tablets (1,500 mg total) by mouth nightly. Activetake 1 tablet by mouth every twelve hoursDepakote 500 mg tablet,delayed release take 1 tablet by oral route 2 times every day 500 MG - Activetake 2 tablets by mouth every hour at bedtime divalproex (Depakote ER) 500 MG 24 hr tablet Take 500 mg by mouth every 12 (twelve) hours. Takes one tablet in the am and 2 at bedtime 0 Activetake 2 tablets by mouth in the morning, then take 3 tablets by mouth twice daily at bedtimeDepakote ER 500 MG 2 TABLETS IN AM, 3 TABLETS AT BEDTIME Orally TWICE A DAY Activevitamin b12 0.1 mg oral tablet (20 sources)Vitamin I74mhoa 1 tablet by mouth once dailycyanocobalamin (Vitamin B-12) 100 MCG tablet Take 100 mcg by mouth Daily Active Completed/Discontinued Medications MedicationDrug Class(es)DatesSig (Normalized)Sig (Original)1 ml alirocumab 75 mg/ml auto-injector (6 sources)PCSK9 InhibitorStart: 12-21-2021 End: 86-17-5990wekhvk 1 mL by subcutaneous injection oncealirocumab (PRALUENT PEN) 75 mg/mL pen injector Indications: High cholesterol , Type 2 diabetes rj itus with hyperosmolarity without coma, with long-term current use of insulin ([facility] [place] Inject 1 mL(75 mg total) under the skin every 14 (fourteen) days. 2 mL 11 12/21/2021 03/15/2023 Discontinued (Therapy completed)Praluent 75 MG/ML Subcutaneous for 28 Days ActiveAlirocumab (Praluent Pen) 75 mg/mL Pen Injector (10 sources)Start: 04-26-2022 End: 71-71-3054ojrslm 75 mg by subcutaneous injection every other weekAlirocumab (Praluent Pen) 75 mg/mL Pen Injector Discontinued 75 MG SUBCUT Q14D April 26, 2022 1:00am April 25, 2023 3:46pmStart: 04-26-2022 End: 00-10-8971gxlusv 75 mg by subcutaneous injection every other weekAlirocumab (Praluent Pen) 75 mg/mL Pen Injector Discontinued 75 MG SUBCUT Q14D April 26, 2022 12:00am April 25, 2023 2:46pmStart: 98-05-8588lhfemo 75 mg by subcutaneous injection every other weekAlirocumab (Praluent Pen) 75 mg/mL Pen Injector Active 75 MG SUBCUT Q14D April 26, 2022 1:00amStart: 04-26-2022 inject 75 mg by subcutaneous injection every other weekAlirocumab (Praluent Pen) 75 mg/mL Pen Injector Active 75 MG SUBCUT Q14D April 26, 2022 12:00am Continuous Blood Gluc Sensor (Dexcom G6 Sensor) mis (20 sources)Start: 01-03-2023 End: 82-71-1732Vutlcwcvbs Blood Gluc Sensor (Dexcom G6 Sensor) [facility] [place] Indications: Type 2 diabetes mellitus with peripheral neuropathy (CMS/HCC) 1 each Every 10 (ten) days. 9 each 3 01/03/2023 01/20/2024 DiscontinuedStart: 01-03-2023 Continuous Blood Gluc Sensor (Dexcom G6 Sensor) [facility] [place] Indications: Type 2 diabetes mellitus with peripheral neuropathy (CMS/HCC) 1 each Every 10 (ten) days. 9 each 3 01/03/2023 Activecyclobenzaprine hydrochloride 10 mg oral tablet (20 sources)Muscle RelaxantStart: 04-21-2020 End: 90-60-0217xify 1 tablet by mouth at bedtime as needed for muscle spasms Cyclobenzaprine 10 mg Tablet Discontinued 10 MG PO Bedtime as needed for Muscle Spasm April 21, 2020 1:00am April 22, 2020 4:06pmStart: 07-24-2019 End: 30-46-2891fxpy 1 tablet by mouth three times dailyCyclobenzaprine 10 mg Tablet Discontinued 10 MG PO Three times daily July 24, 2019 12:00am August 28, 2019 8:41am24 hr desvenlafaxine succinate 100 mg extended release oral tablet (20 sources)Serotonin and Norepinephrine Reuptake InhibitorStart: 12-02-2020 End: 90-03-8071nmsk 1 tablet by mouth every twenty-four hoursDesvenlafaxine Succinate 100 mg tablet extended release 24 hr Discontinued MG PO December 02, 2020 12:00am April 26, 2022 3:33pmStart: 08-40-3023tgoz 1 tablet by mouth once dailyDesvenlafaxine Succinate 100 mg tablet extended release 24 hr Active 100 MG PO Daily May 15, 2018 1:00amdesvenlafaxine (PRISTIQ) 100 mg 24 hr tablet Take 1 tablet (100 mg total) by mouth in the morning. Take 1.5 tablets. Activetake 1 tablet by mouth every twenty-four hoursDesvenlafaxine ER 100 MG 1 tablet Orally Once a day Activedexamethasone 1 mg oral tablet (12 sources)CorticosteroidStart: 06-29-2024 End: 57-74-1593meaVEAXQfmtgq (Decadron) 1 MG tablet Indications: Adrenal nodule (HCC) Take 1 tablet when directed 1 tablet 06/29/2024 08/28/2024 Discontinued (Therapy completed)diazePAM 5 mg oral tablet (10 sources)BenzodiazepineStart: 08-28-2019 End: 74-69-7074wcia 1 tablet by mouth four times daily as needed for muscle spasmsDiazepam 5 mg Tablet Discontinued 5 MG PO Four times daily as needed for Muscle Spasm 40 10 August 28, 2019 12:00am April 21, 2020 5:12pmInsulin Aspart U-100 100 unit/mL insulin pen (1 source)Start: 05-15-2018 End: 40-12-5821tmqzoz 30 [IU] by subcutaneous injection four times dailyInsulin Aspart U-100 100 unit/mL insulin pen Discontinued 30 UNITS SUBCUT Four times daily May 15, 2018 1:00am May 25, 2019 11:42fwcjixnkyt-mrgd-YC-calcium &mins (THERAGRAN-M) 9 mg iron-400 mcg tablet (2 sources) End: 09-52-4323homgjuln-wgtv-XE-tiwlqke &mins (THERAGRAN-M) 9 mg iron-400 mcg tablet Take 1 tablet by mouth inthe morning. 0 03/15/2023 Discontinued (Therapy completed)quynvyya-hgrn-TB-calcium &mins (THERAGRAN-M) 9 mg iron-400 mcg tablet Take 1 tablet by mouth inthe morning. 0 ActiveMultivitamin preparation (9 sources)Start: 05-25-2019 End: 20-59-3675mqqt 1 tablet by mouth once daily in the morningMultivitamin Discontinued 1 TAB PO Every morning May 25, 2019 12:00am September 05, 2022 9:24amStart: 05-25-2019 End: 46-16-3226mkdi 1 tablet by mouth once daily in the morningMultivitamin Discontinued 1 TAB PO Every morning May 24, 2019 11:00pm September 05, 2022 8:24amStart: 04-48-5571sqqq 1 tablet by mouth once daily in the morning Multivitamin Active 1 TAB PO Every morning May 25, 2019 12:00amStart: 44-57-1940bhqz 1 tablet by mouth once daily in the morningMultivitamin Active 1 TAB PO Every morning May 24, 2019 11:00pmMultivitamin Tablet (1 source)Start: 05-25-2019 End: 22-07-7533wfxk 1 tablet by mouth once daily in the morningMultivitamin Tablet Discontinued 1 TAB PO Every morning May 25, 2019 12:00am September 05, 2022 9:24amnaproxen 500 mg oral tablet (20 sources)Nonsteroidal Anti-inflammatory DrugStart: 04-21-2020 End: 25-39-2540pwxl 1 tablet by mouth every twelve hoursNaproxen 500 mg tablet Discontinued 500 MG PO Q12H April 21, 2020 1:00am July 11, 2022 12:58pm Start: 05-25-2019 End: 86-83-6808xxyz 1 tablet by mouth twice dailyNaproxen 500 mg Tablet Discontinued 500 MG PO Twice daily May 25, 2019 12:00am August 28, 2019 8 :41amoxyCODONE hydrochloride 5 mg oral tablet (10 sources)Opioid AgonistStart: 08-28-2019 End: 74-37-2870tmqa 1 tablet by mouth every four to six hours as needed for pain Oxycodone 5 mg Tablet Discontinued 5 MG PO EVERY 4-6 HOURS as needed for Pain Scale 1 - 5 70 14 August 28, 2019 April 22, 2020 4:06pmpotassium gluconate 2.13 meq oral tablet (10 sources)Start: 07-24-2019 End: 92-10-7511srtj 1 tablet by mouth once dailyPotassium Gluconate 500 mg (83 mg) Tablet Discontinued 75 MG PO Daily July 24, 2019 12:00am December 02, 2020 9:29am0.25 mg, 0.5 mg dose 1.5 ml semaglutide 1.34 mg/ml pen injector (6 sources)Start: 07-30-2024 End: 34-65-4435hhhtgn 0.25 mg by subcutaneous injection every weeksemaglutide (Ozempic, 0.25 or 0.5 MG/DOSE,) 2 MG/1.5ML solution pen-injector Indications: Type 2 diabetes mellitus with peripheral neuropathy (HCC) Inject 0.25 mg under the skin 1 (one) time per week3 mL 1 07/30/2024 08/28/2024 Discontinued (Cost of medication)tiotropium 0.018 mg inhalation powder (20 sources)AnticholinergicStart: 05-25-2019 End: 58-55-5774hlvr 1 puff(s) by inhalation once daily in the morningTiotropium Comfort 18 mcg capsule, w/inhalation device Discontinued 1 PUFF INHALATION Every morningMay 25, 2019 12:00am April 26, 2022 3:46pmStart: 05-25-2019 End: 75-41-2837btzf 1 puff(s) by inhalation once daily in the morningTiotropium Comfort Discontinued 1 PUFF INHALATION Every morning May 25, 2019 12:00am April 26, 2022 3:46pmStart: 05-15-2018 End: 29-96-3752fabm 1 capsule by inhalation once dailyTiotropium Comfort 18 mcg capsule, w/inhalation device Discontinued 18 MCG INHALATION Daily May 15, 2018 1:00am May 25, 2019 11:12amtake 1 capsule by inhalation once daily Spiriva HandiHaler 18 MCG 1 capsule by inhaling the contents of the capsule using the HandiHaler device Inhalation Once a day Active Problems Active Problems Problem ClassificationProblemDateDocumented DateEpisodic/ChronicAbdominal pain (11 sources)Abdominal pain; Translations: [Unspecified abdominal pain]05-05-2024 EpisodicAcquired foot deformities (20 sources)Acquired hallux valgus; Translations: [Hallux valgus (acquired), unspecified foot]Onset: 764474-99-8222FzrqmgqRjzcv bronchitis (5 sources)Acute bronchitis; Translations: [Acute bronchitis, unspecified] 80-28-5172XnlrwyawJaqrqtfsjj disorders (20 sources)Stress; Translations: [Reaction to severe stress, unspecified]Onset: 354496-26-8866OcbijtyNuopwae disorders (5 sources)Posttraumatic stress disorder; Translations: [Post-traumatic stress disorder, unspecified]ChronicCataract (20 sources)Bilateral age-related cataract; Translations: [Combined forms of age-related cataract, bilateral]Onset: 45-97-859293031014-47-0076DzerfimApmrxkg kidney disease (20 sources)Chronic kidney disease stage 2; Translations: [Chronic kidney disease, stage 2 (mild)]Onset: 616700-00-6636DvcvakvEiebhka kidney disease (8 sources)Chronic kidney disease; Translations: [Chronic kidney disease, stage III (moderate)]Onset: 09-14-2021 Resolved: 20-40-3683Iqonhmi obstructive pulmonary disease and bronchiectasis (20 sources)Emphysematous bronchitis; Translations: [Chronic obstructive pulmonary disease, unspecified]Onset: 204792-44-7296ScbwcglSnthwzwecnopw of surgical procedures or medical care (20 sources)Post-hysterectomy menopause; Translations: [Asymptomatic postprocedural ovarian failure]Onset: 434578-39-5682QqgynwdOlyoixru mellitus with complications (20 sources)Type 2 diabetes mellitus; Translations: [Type 2 diabetes mellitus with diabetic chronic kidney disease]Onset: 10-07-2020 Resolved: 08-75-4486FyhlafuVayazfvw mellitus without complication (20 sources)Diabetes mellitus; Translations: [Type 2 diabetes mellitus without complications]Onset: 380925-14-9963ZcuendnOpcqhpxh of white blood cells (20 sources)Leukocytosis; Translations: [Elevated white blood cell count, unspecified]Onset: 695225-47-9743JnbgszpTjlbbhblq of lipid metabolism (20 sources)Hyperlipidemia; Translations: [Hyperlipidemia, unspecified]Onset: 629529-47-2406OxbbmsmXzobwhgvjh disorders (20 sources)Gastroesophageal reflux disease; Translations: [Gastro-esophageal reflux disease without esophagitis]Onset: 871706-85-0673OqjftcdQffpjcffd hypertension (20 sources)Hypertensive disorder; Translations: [Essential (primary) hypertension]Onset: 721949-77-5163DttbjgnKdgqqhwav and duodenitis (2 sources)Gastroduodenitis; Translations: [Gastritis, unspecified, without bleeding]EpisodicHepatitis (20 sources)Nonalcoholic steatohepatitis; Translations: [Nonalcoholic steatohepatitis (WICK)]Onset: 299542-59-4072FlrhtnvOeweeonihhvz with complications and secondary hypertension (20 sources)Hypertensive renal disease; Translations: [Hypertensive chronic kidney disease with stage 1 throughstage 4 chronic kidney disease, or unspecified chronic kidney disease]Onset: 09-14-2021 Resolved: 82-25-4322BfnhkuqFdqfpbv and fatigue (20 sources)Fatigue; Translations: [Chronic fatigue, unspecified]Onset: 327992-43-7871MzxewacMckachhvifazy mental health disorders (4 sources)Feeling of lump in throat; Translations: [Other somatoform disorders] ChronicMood disorders (20 sources)Bipolar affective disorder, currently depressed, moderate; Translations: [Bipolar disorder, currentepisode depressed, moderate]Onset: 608558-32-8404YevvdvvGkprwnl (13 sources)Onychomycosis; Translations: [Tinea unguium]01-03-2061Dmjfktre Noninfectious gastroenteritis (3 sources)Chronic diarrhea; Translations: [Noninfective gastroenteritis and colitis, unspecified]84-82-6654WstzcwshEkfrkxpecku deficiencies (20 sources)Vitamin D deficiency; Translations: [Vitamin D deficiency, unspecified]Onset: 09-14-2021 Resolved: 39-82-3488KbrwsqkOgtzm acquired deformities (20 sources)Contracture of joint of left ankle; Translations: [Contracture, left ankle]Onset: 793775-59-8094KahrvqxShuwu acquired deformities (5 sources)Lumbar spondylolisthesis; Translations: [Spondylolisthesis, lumbar region]EpisodicOther and unspecified benign neoplasm (4 sources)Benign neoplasm of parathyroid gland; Translations: [Benign neoplasm of parathyroid gland]64-83-9530ThzrzlwuRkoer connective tissue disease (13 sources)Metatarsalgia of left foot; Translations: [Metatarsalgia, left foot] 55-81-3307TsfusjktXdlxn connective tissue disease (1 source)Pain of toe of right foot; Translations: [Pain in right toe(s)] 37-61-0282LjvpnexgNvyey connective tissue disease (1 source)Pain of toe of left foot; Translations: [Pain in left toe(s)] 57-11-0458VigmvkkwKwgge connective tissue disease (1 source)Arthrodesis status; Translations: [Arthrodesis status]10-01-2023 EpisodicOther diseases of kidney and ureters (5 sources)Secondary hyperparathyroidism; Translations: [Secondary hyperparathyroidism of renal origin]ChronicOther diseases of kidney and ureters (6 sources)Abnormal renal function; Translations: [Disorder of kidney and ureter, unspecified]21-71-6072XsjndkwbPdbzi endocrine disorders (5 sources)Disorder of adrenal gland; Translations: [Disorder of adrenal gland, unspecified]ChronicOther endocrine disorders (20 sources)Adrenal mass; Translations: [Disorder of adrenal gland, unspecified] Onset: 130714-99-5113PjpisecJykua endocrine disorders (6 sources)Disorder of adrenal gland, unspecified; Translations: [Unspecified disorder of adrenal glands]Onset: 09-14-2021 Resolved: 75-49-5617KpsntweVboia endocrine disorders (2 sources)Other specified disorders of adrenal gland; Translations: [Other specified disorders of adrenal glands]07-15-2550PqlipnaEeugn gastrointestinal disorders (1 source)Dysphagia, unspecifiedEpisodicOther gastrointestinal disorders (1 source)Constipation; Translations: [Constipation, unspecified]05-10-2024 EpisodicOther hematologic conditions (2 sources)Secondary polycythemia; Translations: [SECONDARY POLYCYTHEMIA]Onset: 01-56-4936AgvbdkgrForhc hereditary and degenerative nervous system conditions (20 sources)Restless legs; Translations: [Restless legs syndrome]Onset: 717030-72-9621AxzvzwyYqkon liver diseases (20 sources)Lesion of liver; Translations: [Liver disease, unspecified]Onset: 859866-44-6580CsencnoKacwc nervous system disorders (5 sources)Carpal tunnel syndrome; Translations: [Carpal tunnel syndrome, right upper limb]ChronicOther nervous system disorders (5 sources)Radial neuropathy; Translations: [Lesion of radial nerve, right upper limb]ChronicOther nervous system disorders (20 sources)Carpal tunnel syndrome of right wrist; Translations: [Carpal tunnel syndrome, right upper limb]Onset: 693856-83-6974MutbydrClddw nervous system disorders (20 sources)Right radial neuropathy; Translations: [Lesion of radial nerve, right upper limb]Onset: 701800-39-7184QtapelmTntbn nervous system disorders (20 sources)Chronic pain; Translations: [Other chronic pain]Onset: 07-23-2022 03-65-3942EsuiwsrUgwhu nervous system disorders (2 sources)Piriformis syndrome; Translations: [Lesion of sciatic nerve, left lower limb]97-01-6049IgnuhzvApkvx nervous system disorders (1 source)Lesion of sciatic nerve, left lower limb; Translations: [Lesion of sciatic nerve]22-05-9281WstlyfuPmoca nervous system disorders (20 sources)Left-sided piriformis syndrome; Translations: [Lesion of sciatic nerve, left lower limb]Onset: 321095-19-5290HcudmmeBfwjp non-traumatic joint disorders (5 sources)Pain of right wrist; Translations: [Pain in right wrist]EpisodicOther nutritional; endocrine; and metabolic disorders (5 sources)Obese class I; Translations: [Body mass index (BMI) 33.0-33.9, adult] ChronicOther nutritional; endocrine; and metabolic disorders (20 sources)Hypomagnesemia; Translations: [Hypomagnesemia]Onset: 01-31-2024 46-33-0151TgxyzthCiris nutritional; endocrine; and metabolic disorders (20 sources)Severe obesity; Translations: [Morbid (severe) obesity due to excess calories]Onset: 07-23-2022 Resolved: 068778-31-6008VhlhtcrZgdns nutritional; endocrine; and metabolic disorders (8 sources)Hypomagnesemia; Translations: [Disorders of magnesium metabolism] Onset: 09-14-2021 Resolved: 38-64-6771SlfvildPkubg nutritional; endocrine; and metabolic disorders (20 sources)Hypercalcemia; Translations: [Hypercalcemia]Onset: 07-23-2022 26-34-8601LvsnbkyRmrud nutritional; endocrine; and metabolic disorders (12 sources)Hypercalcemia; Translations: [Hypercalcemia]Onset: 22-76-9932Beblavj Other nutritional; endocrine; and metabolic disorders (2 sources)Weight decreased; Translations: [Abnormal weight loss]EpisodicOther upper respiratory disease (20 sources)Allergic rhinitis; Translations: [Allergic rhinitis, unspecified] Onset: 933978-13-5300HhpvtcpWysgz upper respiratory disease (20 sources)Seasonal allergic rhinitis; Translations: [Other seasonal allergic rhinitis]Onset: 47-95-173265334926-70-6584FkujuxvYaoyc upper respiratory disease (20 sources)Allergic rhinitis due to pollen; Translations: [Allergic rhinitis due to pollen]Onset: 168090-30-5425LasjegfXinieiua codes; unclassified (20 sources)Obstructive sleep apnea syndrome; Translations: [Obstructive sleep apnea (adult) (pediatric)]Onset: 302019-73-9910RxsybopWdacvvlg codes; unclassified (5 sources)Tobacco user; Translations: [Tobacco use]EpisodicSpondylosis; intervertebral disc disorders; other back problems (20 sources)Prolapsed lumbar intervertebral disc; Translations: [Other intervertebral disc displacement, lumbarregion]Onset: 718233-15-2026 ChronicSubstance-related disorders (20 sources)Tobacco user; Translations: [Nicotine dependence, cigarettes, uncomplicated]Onset: 309310-03-1853IkrvpspEukoxihizexw (1 source)CHRN KIDNEY DISEASE STG 3 UNSP; Translations: [CHRN KIDNEY DISEASE STG 3 UNSP]Onset: 61-12-2820Phktkidukuts (1 source)Low back pain, unspecified; Translations: [Low back pain, unspecified] Onset: 03-53-9207Dwfaptytwssv (1 source)Spinal stenosis of lumbar region with neurogenic claudication [M48.062]Onset: 12-27-2023 Past or Other Problems Problem ClassificationProblemDateDocumented DateEpisodic/ChronicGenitourinary symptoms and ill-defined conditions (20 sources)Proteinuria; Translations: [Proteinuria, unspecified]Onset: 09-14-2021 Resolved: 14-77-3205ZzdiojuaElwc disorders (20 sources)Mood disordersOnset: 08-07-2022 Resolved: 588008-08-9005Aqddezvcqmn chest pain (20 sources)Chest pain; Translations: [Chest pain, unspecified]Onset: 03-15-2023 81-33-4419FkweyuiuWxocx acquired deformities (20 sources)Acquired spondylolisthesis; Translations: [Spondylolisthesis, site unspecified]Onset: 745339-24-0596TabrebrfXeztc aftercare (20 sources)Long-term current use of insulin; Translations: [FDC (current) use of insulin]Onset: 11-29-2022 Resolved: 708338-70-7622VnlnvtkdAmdhb aftercare (4 sources)Other shelter (current) drug therapy; Translations: [OTH CERAMIC PLATER CURRENT DRUG THERAPY]Onset: 57-68-7363EjswymjkZuevz connective tissue disease (20 sources)History of lumbar fusion; Translations: [Arthrodesis status]Onset: 435699-60-6376DrhdvdhxKtajt connective tissue disease (20 sources)Trochanteric bursitis of left hip; Translations: [Trochanteric bursitis, left hip]Onset: 803065-48-0564XizaroggAfiar connective tissue disease (2 sources)Pain of toes of bilateral feet; Translations: [Pain in right toe(s)] 18-98-6301VmkedgbbLrlzh gastrointestinal disorders (20 sources)Dysphagia; Translations: [Dysphagia, unspecified]Onset: 07-23-2022 31-43-9768PwrggqbdHyqvw hematologic conditions (20 sources)Red blood cell finding; Translations: [Other abnormality of red blood cells]Onset: 948480-75-4697NewyezwfMlmtu non-traumatic joint disorders (1 source)Hip painOnset: 18-67-0659YaiybmlnBcbhh nutritional; endocrine; and metabolic disorders (20 sources)Morbid obesity; Translations: [Morbid (severe) obesity due to excess calories]Onset: 07-23-2022 Resolved: 325647-65-4937HzrdkupDekpb screening for suspected conditions (not mental disorders or infectious disease) (20 sources)Elevated liver enzymes level; Translations: [Other specified abnormal findings of blood chemistry]Onset: 524442-07-6945DjxxhwngBfgazlwi codes; unclassified (20 sources)Acquired absence of cervix and uterus; Translations: [Acquired absence of both cervix and uterus]Onset: 539930-74-2805Xkbmkvzo Spondylosis; intervertebral disc disorders; other back problems (20 sources)Acute back pain with sciatica; Translations: [Lumbago with sciatica, left side]Onset: 549432-15-9224QoqhealwMwardkdangjy (2 sources)DM with moderate NPDR with ME (chief complaint)Onset: 06-23-2024 Unclassified (2 sources)Follow Up of NPDR (chief complaint)Onset: 40-77-2012Lictwbofhljh (3 sources)NPDR (chief complaint)Onset: 09-27-2022 Resolved: 36-52-2233Igitqazegisw (2 sources)dr (chief complaint)Onset: 06-07-2022 Results Test NameValueInterpretationReference RangeFacilityALDOSTERONE/PLASMA RENIN ACTIVITY RATIO,LC/MS/MSon 06-50-3613HDCN/PRA RATIO3.6 RatioNormal0.9-28.9Quest DiagnosticsComment on above:Performed By: #### [id number] #### [facility], [address] [place] [phone] Loan Servicing Representative: Sindy Tejada MD,PhD,MBAALDOSTERONE, LC/MS/MS14 ng/dLNormal Quest DiagnosticsComment on above:Result Comment: Adult Reference Ranges for Aldosterone: Upright 8:00-10:00 am < or = 28 ng/dL Upright 4:00-6:00 pm < or = 21 ng/dL Supine 8:00-10:00 am 3-16 ng/dL This test was developed and its analytical performance characteristics have been determined by [employer]. It has not been cleared or approved by the FDA. This assay has been validated pursuant to the CLIA regulations and is used for clinical purposes.Performed By: #### [id number] #### [facility], [address] [place] [phone] Loan Servicing Representative: Sindy Tejada MD,PhD,MBAPLASMA RENIN ACTIVITY, LC/MS/MS3.91 ng/mL/hNormal0.25-5.82Quest DiagnosticsComment on above:Performed By: #### [id number] #### [facility], [address] [place] [phone] Loan Servicing Representative: Sindy Tejada MD,PhD,MBAHMHP LIVER PANELon 50-03-5930Ltpoaqf [Mass/Vol]2.9 g/dLLow3.4 - 5.0 g/dLMOUNTAINSTAR HEALTHCARE HealthcareALBUMIN GLOBULIN RATIO0.7NOAK HealthcareALP [Catalytic activity/Vol]61 U/L46 - 116 U/LNOMS HealthcareALT [Catalytic activity/Vol]32 U/L14 - 59 U/LNOMS HealthcareAST [Catalytic activity/Vol]9 U/LLow15 - 37 U/LNOMS HealthcareBilirubin [Mass/Vol]0.2 mg/dL0.2 - 1.0 mg/dLMOUNTAINSTAR HEALTHCARE HealthcareBilirubin.indirect [Mass/Vol]mg/dL0.0 - 0.2 mg/dLMOUNTAINSTAR HEALTHCARE HealthcareGlobulin (S) [Mass/Vol]4 g/dLMOUNTAINSTAR HEALTHCARE HealthcareInterpretation and review of laboratory resultsAbManchester Memorial Hospital HealthcareProtein [Mass/Vol]6.9 g/dL6.4 - 8.2 g/dLBothwell Regional Health CenterNo Panel Informationon 55-29-1159WDQPZFKYWZWMR HealthcareTBH DEPAKENE/ VALPROIC ACIDon 36-12-8691HBM VALPROIC ACID90 ug/mL50.0 - 100.0 ug/mL [facility] CenterHbA1c (Bld) [Mass fraction]on 49-09-9497Hieutkltdlenwj and review of laboratory resultsAbAlleghany HealthLaboratory - Hematology and Cell countson 97-01-8519ZnX4f (Bld) [Mass fraction]10.1 %[facility] CenterHbA1c (Bld) [Mass fraction]on 68-95-0806Hgauuzktulkxgf and review of laboratory resultsAbSouthwest Regional [facility] HealthcareLaboratory - Hematology and Cell countson 46-84-0869QsN6p (Bld) [Mass fraction]9.1 %[facility] METANEPHRINES, FRAC., PL. FREEon 08-64-9699TZCOLSTAFDYG, PL<25.00.0 - 88.0 pg/mL [facility] Health CenterComment on above:This test was developed and its performance characteristics determined by [facility]. It has not been cleared or approved by the Food and Drug Administration. Performed at: [address] [id number] [place] Operator: Loni Olvera MD, Phone: [phone] NORMETANEPHRINE, PL31.4 pg/mL0.0 - 244.0 pg/mLNOMS HealthcareComment on above: This test was developed and its performance characteristics determined by [facility]. It has not been cleared or approved by the Food and Drug Administration. CLINISYNCBothwell Regional Health CenterALL BASIC METABOLIC PANELon 73-16-0430Cnkby gap [Moles/Vol]21.4 mmol/LNOMS HealthcareCalcium [Mass/Vol]9.6 mg/dL8.5 - 10.1 mg/dL NOMS HealthcareChloride [Moles/Vol]101 mmol/L98 - 107 mmol/LNOMS HealthcareCO2 [Moles/Vol]20.5 mmol/LLow21.0 - 32.0 mmol/LNOMS HealthcareCreatinine [Mass/Vol] 1.34 mg/dLHigh0.55 - 1.02 mg/dLNOMS HealthcareGFR/1.73 sq M.predicted CKD-EPI (S/P/Bld) [Vol rate/Area]50Low>=60 mL/min/1.73m 2NOMS HealthcareGlucose [Mass/Vol]334 mg/jJQozw63 - 106 mg/dLNOAK HealthcareInterpretation and review of laboratory resultsAbnormalNOMS HealthcarePotassium [Moles/Vol]3.9 mmol/L3.5 - 5.1 mmol/LNOMS HealthcareSodium [Moles/Vol]139 mmol/L136 - 145 mmol/LNOMS HealthcareTBH EGFR-NON AF VCDHKBSP68Pyd>=60 mL/min/1.73m 2NOMS HealthcareUrea nitrogen [Mass/Vol]26 mg/dLHigh7.0 - 18.0 mg/dLNOMS HealthcareUrea nitrogen/Creatinine [Mass ratio]19.4 mg/mgNOMS HealthcareCLINISYNCNOMS HealthcareErythrocyte distribution width Auto (RBC) [Ratio]on 06-10-2024 Erythrocyte distribution width (RBC) [Ratio]Erythrocyte distribution width [Ratio] by Automated count11.0-15.0[facility] HospitalEstimated glomerular filtration rate (GFR) non- Americanon 96-33-3715NSZ/1.73 sq M.predicted among non-blacks MDRD (S/P/Bld) [Vol rate/Area]Estimated glomerular filtration rate (GFR) non- AmericanLow>=60 mL/min/1.73m 2FOhioHealth Grady Memorial HospitalHP CBC WITH PLATELET NO DIFFERENTIALon 06-10-2024 Erythrocyte distribution width (RBC) [Ratio]12.9 %11.0 - 15.0 %[facility] Hematocrit (Bld) [Volume fraction]43.7 %36.0 - 48.0 %[facility] Health CenterHemoglobin (Bld) [Mass/Vol]14.6 g/dL12.0 - 16.0 g/dLBothwell Regional Health CenterInterpretation and review of laboratory resultsAbnormRoxbury Treatment Center (RBC) [Entitic mass]30.4 pg26.7 - 34.0 pgI-70 Community HospitalHC (RBC) [Mass/Vol]33.4 g/dL29.9 - 35.2 g/dL [facility] HospitalV (RBC) [Entitic vol]91 fL81.0 - 99.0 fLBothwell Regional Health CenterPlatelet mean volume (Bld) [Entitic vol]11.2 fL9.5 - 13.5 fLUniversity Health Lakewood Medical Center IYT945RLLQUniversity Health Lakewood Medical Center RBC4.8[facility] WBC12.8HighBothwell Regional Health CenterCLINISYNCNMERCY HOSPITAL ADA – ADA HealthcareHematocrit Auto (Bld) [Volume fraction]on 25-65-6088Hwzqsneeoa (Bld) [Volume fraction]Hematocrit [Volume Fraction] of Blood by Automated count 36.0-48.0[facility] HospitalHemoglobin [Mass/volume] in Bloodon 32-70-9858Mkrhdrpokc (Bld) [Mass/Vol]Hemoglobin [Mass/volume] in Blood12.0-16.0 [facility] HospitalLaboratory - Chemistry and Chemistry - challengeon 21-48-6646Uvtcvnu [Mass/Vol]3.1 g/dLLow3.4-5.0[facility] HospitalCalcium [Mass/Vol]9.4 mg/dL8.5-10.1FMiddletown HospitalChloride [Moles/Vol]103 mmol/O12-317HrsfctoshMorrow County HospitalCO2 [Moles/Vol]25.1 mmol/L21.0-32.0[facility] HospitalCreatinine [Mass/Vol]1.18 mg/dLHigh0.55-1.02[facility] HospitalGFR/1.73 sq M.predicted MDRD (S/P/Bld) [Vol rate/Area]58 mL/min/{1.73_m2}Low>=60 mL/min/1.73m 2FMiddletown HospitalGlucose [Mass/Vol]200 mg/dLHigh 74-106M[facility] HospitalMagnesium [Mass/Vol]1.3 mg/dLLow1.8-2.4 [facility] HospitalPotassium [Moles/Vol]4.0 mmol/L3.5-5.1FMercy Health Urbana Hospitalodium [Moles/Vol]141 mmol/D322-096VioshxrhcMorrow County HospitalUrate [Mass/Vol]4.8 mg/dL2.6-6.0[facility] Urea nitrogen [Mass/Vol]14.0 mg/dL7.0-18.0[facility] HospitalUrea nitrogen/Creatinine [Mass ratio]11.9 mg/mgMorrow County Hospital Laboratory - Urinalysison 22-24-8946Snsrwlj (U) [Mass/Vol]762.4 mg/dLHigh<=11.9 [facility] HospitalLeukocytes [#/volume] corrected for nucleated erythrocytes in Blood by Automated counon 14-36-9334KLI corrected for nucl RBC Auto (Bld) [#/Vol]Leukocytes [#/volume] corrected for nucleated erythrocytes in Blood by Automated counHigh4.0-11.0[facility] HospitalH Auto (RBC) [Entitic mass]on 06-68-4277EYV (RBC) [Entitic mass]MCH [Entitic mass] by Automated count26.7-34.0[facility] HospitalMCHC Auto (RBC) [Mass/Vol]on 63-04-8591TJHD (RBC) [Mass/Vol]MCHC [Mass/volume] by Automated count29.9-35.2FMiddletown HospitalMCV Auto (RBC) [Entitic vol]on 64-73-8155DNN (RBC) [Entitic vol]MCV [Entitic volume] by Automated count 81.0-99.0[facility] HospitalNo Panel Informationon - Hydroxy Vitamin D Total12.7 ng/mLMorrow County HospitalComment on above:<20 ng/mL Vit D uxquxezyg20-<30 ng/mL Vit D twbmdbezgzwe22-468 ng/mL Vit D sufficient>100 ng/mL Potential ToxicityParathyroid Hormone (Intact)27 pg/mL15-65 [facility] HospitalComment on above:Performed at: - Lab[address] [id number] Director: Duke Peguero PhD, Phone: [phone] Level3.3 mg/dL2.6-4.7FMiddletown HospitalUrine Random Fnvebavmub992.57 mg/dQSpaq12.00-300.00[facility] HospitalPlatelet mean volume Auto (Bld) [Entitic vol]on 44-06-2889Lpvvnhqq mean volume (Bld) [Entitic vol]Platelet mean volume [Entitic volume] in Blood by Automated count9.5-13.5FMiddletown HospitalPlatelets Auto (Bld) [#/Vol]on 76-29-5333Rgsrzselc (Bld) [#/Vol]Platelets [#/volume] in Blood by Automated zecqv982-989DmumdgunaMorrow County HospitalRBC Auto (Bld) [#/Vol]on 30-79-8681QVO (Bld) [#/Vol]Erythrocytes [#/volume] in Blood by Automated count 4.20-5.40[facility] Hospitalerum or plasma anion gap determinationon 25-58-4450Yzaan gap [Moles/Vol]Serum or plasma anion gap determinationMorrow County HospitalUrine protein/creatinine ratioon 90-94-1801Djlnrpi/Creatinine (U) [Ratio]Urine protein/creatinine ratioMorrow County HospitalBI MAMMOGRAM SCREENING TOMOSYNTHESIS BILATERALon 75-17-0921FJ MAMMOGRAM SCREENING TOMOSYNTHESIS BILATERALThis is a summary report. The complete report [...] noted onthe left which appear grossly unremarkable. IMPRESSION: Impression: No specific evidence of malignancy seen in either breast. BIRADS 2 - Benign Findings DENSITY: The breasts are almost entirely fatty. FOLLOW-UP: Routine Screening Mammogram ELECTRONICALLY SIGNED BY: Baron Erickson M.D.NormalNot AvailableCT ABDOMEN PELVIS WO IV CONTRASTon [id number] ABDOMEN PELVIS WO IV CONTRASTTITLE OF EXAM: CT ABDOMEN PELVIS WO IV [...] electronically signed in approved by the interpreting radiologist.NormalNot AvailableCB W Auto Differential panel (Bld)on 05-08-2024 Basophils (Bld) [#/Vol]51 10*3/uLNOMercy Hospital JoplinBasophils/100 WBC (Bld)0.4 %[facility] Health CenterEosinophils (Bld) [#/Vol]115 10*3/uLNOMS HealthcareEosinophils/100 WBC (Bld)0.9 %[facility] Health CenterErythrocyte distribution width (RBC) [Ratio]13.4 % 11.0 - 15.0 %[facility] Health CenterHematocrit (Bld) [Volume fraction]44.5 %35.0 - 45.0 %[facility] Health CenterHemoglobin (Bld) [Mass/Vol]14.6 g/dL11.7 - 15.5 g/dLBothwell Regional Health CenterInterpretation and review of laboratory resultsAbrmSt. Mary Medical Center Lymphocytes (Bld) [#/Vol]3699 10*3/uLBothwell Regional Health CenterLymphocytes/100 WBC (Bld) 28.9 %[facility] HospitalH (RBC) [Entitic mass]30.8 pg27.0 - 33.0 pgI-70 Community HospitalHC (RBC) [Mass/Vol]32.8 g/dL32.0 - 36.0 g/dLMOUNTAINSTAR HEALTHCARE HealthcareComment on above:For adults, a slight decrease in the calculated MCHC value (in the range of 30 to 32 g/dL) is most likely not clinically significant; however, it should be interpreted with caution in correlation with other red cell parameters and the patient's clinical condition. MCV (RBC) [Entitic vol]93.9 fL80.0 - 100.0 fLBothwell Regional Health CenterMonocytes (Bld) [#/Vol]666 10*3/uLNOAK HealthcareMonocytes/100 WBC (Bld)5.2 %[facility] Neutrophils (Bld) [#/Vol]8269 10*3/uLLong Island Hospital HealthcareNeutrophils/100 WBC (Bld)64.6 %[facility] HealthcarePlatelet mean volume (Bld) [Entitic vol]10.9 fL7.5 - 12.5 fLMOUNT[facility] HealthcarePlatelets (Bld) [#/Vol]287 10*3/uLNOAK HealthcareRBC (Bld) [#/Vol]4.74 10*6/uLNOAK HealthcareWBC (Bld) [#/Vol]12.8 10*3/uLLong [facility] Hospital HealthcareCOLLECTION KIT GIVEN TO PATIENT. PATIENT ADVISED TO RETURN.[employer] Organization Information Site ID: QPT Name: [facility] Address: [address] [place] [address], [address] [place] [id number] Director: Senthil Ramsey MDScionHealthXR Abdomen Single viewon 05-08-2024 Views: 5 Findings: Lumbar fusion is noted. There are surgical clips in the right upper quadrant from a cholecystectomy. There is moderate stool throughout the colon. There is no free air beneath the diaphragm. There is a normal bowel gas pattern without obstruction or ileus, and no organomegaly or abnormal calcifications. Impression: No acute radiographic findings in the abdomen. IMAGINGWrEnio nam MD - 05/08/2024 Views: 5 Findings: Lumbar fusion is noted. There are surgical clips in the right upper quadrant from a cholecystectomy. There is moderate stool throughout the colon. There is no free air beneath the diaphragm. There is a normal bowel gas pattern without obstruction or ileus, and no organomegaly or abnormal calcifications. Impression: No acute radiographic findings in the abdomen. [facility] [email or web address] Abdomen Single viewOrdered By: Enio Neves on 07-60-3498HKZT [email or web address] Work Phone: Laboratory - Hematology and Cell countson 05-07-2024 HbA1c (Bld) [Mass fraction]9.1 %[facility] [email or web address] Panel Informationon 05-07-2024 [facility] CenterXR ABDOMEN 2 VIEWon 74-41-5732CR ABDOMEN 2 VIEWViews: 5 Findings: Lumbar fusion is noted. There are surgical clips in the right upper quadrant from a cholecystectomy. There is moderate stool throughout the colon. There is no free air beneath the diaphragm. There is a normal bowel gas pattern without obstruction or ileus, and no organomegaly or abnormal calcifications. Impression: No acute radiographic findings in the abdomen.NormalNot AvailableXR Abdomen Single viewon 75-90-2775Qxyxsxfsx Study observation (narrative)[facility] CenterCBC W Auto Differential panel (Bld)on 03-29-2271Grfnkfazy (Bld) [#/Vol]72 10*3/uLNOMS HealthcareBasophils/100 WBC (Bld)0.5 %[facility] Eosinophils (Bld) [#/Vol]101 10*3/uLNOMS [facility] CompanyEosinophils/100 WBC (Bld)0.7 %[facility] CenterErythrocyte distribution width (RBC) [Ratio]13.4 %11.0 - 15.0 % [facility] CenterHematocrit (Bld) [Volume fraction]45.4 %High35.0 - 45.0 %[facility] CenterHemoglobin (Bld) [Mass/Vol]14.8 g/dL11.7 - 15.5 g/dLBothwell Regional Health Center Lymphocytes (Bld) [#/Vol]3787 10*3/uLNOMS [facility] CompanyLymphocytes/100 WBC (Bld) 26.3 %[facility] CenterMCH (RBC) [Entitic mass]30 pg27.0 - 33.0 pgBothwell Regional Health Center MCHC (RBC) [Mass/Vol]32.6 g/dL32.0 - 36.0 g/dLBothwell Regional Health CenterComment on above: For adults, a slight decrease in the calculated MCHC value (in the range of 30 to 32 g/dL) is most likely not clinically significant; however, it should be interpreted with caution in correlation with other red cell parameters and the patient's clinical condition. MCV (RBC) [Entitic vol]91.9 fL80.0 - 100.0 fLBothwell Regional Health CenterMonocytes (Bld) [#/Vol]662 10*3/uLNOMS HealthcareMonocytes/100 WBC (Bld)4.6 %[facility] Neutrophils (Bld) [#/Vol]9778 10*3/uLHighNOMS HealthcareNeutrophils/100 WBC (Bld)67.9 %[facility] HealthcarePlatelet mean volume (Bld) [Entitic vol]10.6 fL7.5 - 12.5 fLNOAK HealthcarePlatelets (Bld) [#/Vol]267 10*3/uLNOMS HealthcareRBC (Bld) [#/Vol]4.94 10*6/uLNOMS HealthcareWBC (Bld) [#/Vol]14.4 10*3/uLLong [facility] HealthcareLaboratory - Chemistry and Chemistry - challengeon 01-04-3313Frzrfho [Mass/Vol]4 g/dL3.6 - 5.1 g/dLNOMS HealthcareAlbumin/Globulin [Mass ratio]1.5 {ratio}[facility] HealthcareALP [Catalytic activity/Vol]50 U/L37 - 153 U/LNOMS HealthcareALT [Catalytic activity/Vol]16 U/L6 - 29 U/LNOMS HealthcareAmylase [Catalytic activity/Vol]17 U/LLow21 - 101 U/LNOMS HealthcareAST [Catalytic activity/Vol]11 U/L10 - 35 U/LNOMS HealthcareBilirubin [Mass/Vol]0.3 mg/dL0.2 - 1.2 mg/dLNOMS HealthcareCalcium [Mass/Vol]9.9 mg/dL8.6 - 10.4 mg/dLNOAK HealthcareChloride [Moles/Vol]102 mmol/L98 - 110 mmol/LNOMS HealthcareCO2 [Moles/Vol]27 mmol/L20 - 32 mmol/LNOMS HealthcareCreatinine [Mass/Vol]1.06 mg/dL High0.50 - 1.03 mg/dLNOAK HealthcareGFR/1.73 sq M.predicted among non-blacks MDRD (S/P/Bld) [Vol rate/Area]63 mL/min/{1.73_m2}> OR = 60 mL/min/1.61b0MHJH HealthcareGlobulin (S) [Mass/Vol]2.6 g/dLNOMS HealthcareGlucose [Mass/Vol]175 mg/fOEvai51 - 99 mg/dLNOAK HealthcareComment on above: Fasting reference interval For someone without known diabetes, a glucose value >125 mg/dL indicates that they may have diabetes and this should be confirmed with a follow-up test. Potassium [Moles/Vol]4.3 mmol/L3.5 - 5.3 mmol/LNOMS HealthcareProtein [Mass/Vol] 6.6 g/dL6.1 - 8.1 g/dLNOAK HealthcareSodium [Moles/Vol]140 mmol/L135 - 146 mmol/LNOMS HealthcareUrea nitrogen [Mass/Vol]20 mg/dL7 - 25 mg/dLNOMercy Hospital Joplin Urea nitrogen/Creatinine [Mass ratio]19 mg/mgBothwell Regional Health CenterNo Panel Information on 47-72-0595Cgjecsaxclxuiy and review of laboratory resultsAbHills & Dales General HospitalPerforming Organization Information Site ID: QPT Name: [facility] Address: [address] [place] [address], [address] [place] [phone] Director: Senthil Ramsey MDScionHealthGlucose Glucometer (BldC) [Mass/Vol]on 50-60-3362Fsxrprp [Mass/Vol]200 mg/rZEgws40-17QdnMstlwnMercy Health St. Charles HospitalHbA1c (Bld) [Mass fraction]on 41-55-5639Zzwecctbfoswwx and review of laboratory resultsAbAlleghany HealthLaboratory - Hematology and Cell countson 32-05-4162TkG0y (Bld) [Mass fraction]9.8 %[facility] CenterTB DEPAKENE/ VALPROIC ACIDon 41-69-1552Mkyygcjoefetni and review of laboratory resultsAbSturgis Hospital VALPROIC ACID27.3 ug/mLLow50.0 - 100.0 ug/mLNOMS HealthcareCLINISYNCNMERCY HOSPITAL ADA – ADA HealthcareErythrocyte distribution width Auto (RBC) [Ratio]on 13-74-0941Jinhkeyixlf distribution width (RBC) [Ratio]13.2 %11.0-15.0[facility] HospitalEstimated glomerular filtration rate (GFR) non- Americanon 19-09-1343FFY/1.73 sq M.predicted among non-blacks MDRD (S/P/Bld) [Vol rate/Area]55 mL/min/{1.73_m2}Low>=60[facility] CampusHP CBC WITH PLATELET NO DIFFERENTIALon 56-35-3290Udzkvqovvpe distribution width (RBC) [Ratio]13.2 %11.0 - 15.0 %[facility] HealthcareHematocrit (Bld) [Volume fraction]46.7 %36.0 - 48.0 %[facility] HealthcareHemoglobin (Bld) [Mass/Vol]15.6 g/dL12.0 - 16.0 g/dLBothwell Regional Health CenterInterpretation and review of laboratory resultsAbnormalI-70 Community HospitalH (RBC) [Entitic mass]30.4 pg26.7 - 34.0 pgI-70 Community HospitalHC (RBC) [Mass/Vol]33.4 g/dL29.9 - 35.2 g/dLI-70 Community HospitalV (RBC) [Entitic vol]91.0 fL81.0 - 99.0 fLBothwell Regional Health CenterPlatelet mean volume (Bld) [Entitic vol]10.9 fL9.5 - 13.5 fLBothwell Regional Health CenterTB LTR499XECZPike County Memorial Hospital RBC5.13[facility] WBC11.8HighBothwell Regional Health CenterCLINISYNCNOMS HealthcareHematocrit Auto (Bld) [Volume fraction]on 58-78-1714Kvbcpqiprs (Bld) [Volume fraction]46.7 %36.0-48.0[facility] HospitalHemoglobin [Mass/volume] in Bloodon 28-58-5093Fopujduidk (Bld) [Mass/Vol]15.6 g/dL12.0-16.0 [facility] HospitalLaboratory - Chemistry and Chemistry - challengeon 24-76-8142Vsgvmbd [Mass/Vol]3.1 g/dLLow3.4-5.0[facility] HospitalCalcium [Mass/Vol]9.7 mg/dL8.5-10.1FMiddletown HospitalChloride [Moles/Vol]102 mmol/N87-028ByjptgjidMorrow County HospitalCO2 [Moles/Vol]29.3 mmol/L21.0-32.0[facility] HospitalCreatinine [Mass/Vol]1.05 mg/dLHigh0.55-1.02[facility] HospitalGFR/1.73 sq M.predicted MDRD (S/P/Bld) [Vol rate/Area]mL/min/{1.73_m2}>=60[facility] HospitalGlucose [Mass/Vol]120 mg/qOPzfv15-297SvimwczgmMorrow County HospitalMagnesium [Mass/Vol]1.5 mg/dLLow1.8-2.4FMiddletown Hospital Potassium [Moles/Vol]3.7 mmol/L3.5-5.1FMercy Health Urbana Hospitalodium [Moles/Vol]143 mmol/W634-569AozcjrwwuMorrow County HospitalUrate [Mass/Vol]7.5 mg/dLHigh2.6-6.0[facility] HospitalUrea nitrogen [Mass/Vol]17.0 mg/dL7.0-18.0[facility] HospitalUrea nitrogen/Creatinine [Mass ratio]16.2 mg/mgMorrow County HospitalBilirubin Ql (U)Negative NEGATIVEMorrow County HospitalGlucose (U) [Mass/Vol]NegativeNEGATIVE [facility] HospitalKetones Ql (U)NegativeNEGSouthern Ohio Medical CenterpH (U)5.5 [pH]5.0-9.0[facility] Specific gravity (U) [Rel density]>=1.212Hkmwmaxr2.005-1.025M[facility] County HospitalUrobilinogen Qn (U)0.2 {Jennifer'U}/dL0.2-1.0[facility] HospitalLaboratory - Specimen informationon 09-86-2284Khlwkhqxmd (U)CLEAR CLEARMorrow County HospitalColor (U)YELLOWYELLOWMorrow County HospitalLaboratory - Urinalysison 19-76-7845Wkwgtllir esterase Test strip Ql (U)NegativeNEGATIVEMorrow County HospitalMucus Ql (Urine sed)SMALL AbnormalNONE SEENMorrow County HospitalNitrite Ql (U)NegativeNEGATIVE [facility] HospitalProtein (U) [Mass/Vol]725.5 mg/dLHigh<=11.9 [facility] HospitalProtein Ql (U)>=300 mg/dLAbnormalNEG/TRACE [facility] HospitalLeukocytes [#/volume] corrected for nucleated erythrocytes in Blood by Automated counon 62-17-8738HSI corrected for nucl RBC Auto (Bld) [#/Vol]11.8 10 3/uLHigh4.0-11.0[facility] HospitalMCH Auto (RBC) [Entitic mass]on 95-75-1449LEV (RBC) [Entitic mass]30.4 pg26.7-34.0 [facility] HospitalMCHC Auto (RBC) [Mass/Vol]on 39-98-4400ETCR (RBC) [Mass/Vol]33.4 g/dL29.9-35.2FMiddletown HospitalMCV Auto (RBC) [Entitic vol]on 99-58-8117BUL (RBC) [Entitic vol]91.0 fL81.0-99.0[facility] HospitalNo Panel Informationon 86-36-6098Qpiouigtbvx Hormone (Intact)25 pg/zA73-61FnixrhwxqMorrow County HospitalComment on above:Performed at: [employer] [address] [id number] Director: Duke Peguero PhD, Phone: [phone] Level3.8 mg/dL2.6-4.7 [facility] HospitalUrine BacteriaSMALL #/HPFAbnormalNONE SEEN [facility] HospitalUrine Occult BloodMODERATEAbnormalNEGATIVE [facility] HospitalUrine Other CastsNONE SEEN #/LPFNONE SEEN [facility] HospitalUrine Other CrystalsNone Seen #/HPFNone Seen [facility] HospitalUrine Random Evzdupcrsm105.96 mg/dLHigh 20.00-300.00[facility] HospitalUrine RBC2-5 #/HPFAbnormal0-2 [facility] HospitalUrine Squamous Epithelial CellsMODERATE #/LPF AbnormalNONE/RAREMorrow County HospitalUrine WBC0-2 #/HPFAbnormalNONE SEENMorrow County HospitalPlatelet mean volume Auto (Bld) [Entitic vol]on 48-61-4718Xooadama mean volume (Bld) [Entitic vol]10.9 fL9.5-13.5 [facility] HospitalPlatelets Auto (Bld) [#/Vol]on 11-13-2023 Platelets (Bld) [#/Vol]259 10 3/hH681-834WffdikcxoMorrow County HospitalRBC Auto (Bld) [#/Vol]on 22-34-6417KSP (Bld) [#/Vol]5.13 10 6/uL4.20-5.40UC [facility] Chester Hospitalerum or plasma anion gap determinationon 40-85-0263Rppke gap [Moles/Vol]15.4 mmol/LFMiddletown HospitalUrine protein/creatinine ratioon 54-16-0450Sjspgfk/Creatinine (U) [Ratio]2.03[facility] HospitalXR lumbar spine 6V w bendingon 95-30-6883VF lumbar spine 6V w bendingVETERANS HEALTH ADMINISTRATION Main [facility] [address] [place] [address] XRay Report Signed Patient: Keya Ley MR#: [id number] : 1970 Acct:[id number] Age/Sex: 52 / F ADM Date: 09/30/23 Loc: XD Room: Type: [facility] Attending Dr: Jeovanny Mendes MD Copies [...] Jenaro Stockton M.D.09/30/2023 3:31 PM Dictation Location: [place] [address] Transcribed By: [facility] 09/30/23 1531 Dictated By: Jenaro Stockton DO 09/30/23 1530 Signed By: 09/30/23 1531[facility] Physician GroupPOCT EKGOrdered By: Radha Finley on 00-21-5076UtfAvkcek Health SystemCreatinine (Bld) [Mass/Vol]Ordered By: Peyton Hoskins on 63-75-5987Tseypcygao [Mass/Vol]1.0 mg/dL0.6-1.3FMiddletown HospitalComment on above:ER/ESD physician is notified/shown all ISTAT results.Critical values may be confirmed by laboratorytesting ifdeemed necessary by ER attending doctor.Creatinine [Mass/volume] in Serum or Plasma Ordered By: Peyton Hoskins on 60-24-3869Syzrybsmcj [Mass/Vol]0.95 mg/dL0.60-1.20 [facility] HospitalNo Panel InformationOrdered By: Peyton Hoskins on 80-01-7074Ippbmaock GFR (CKD-EPI)> 60.0 mL/MinMorrow County Hospital Pharmacy Creatinine Clearance (ChemN/[facility] St. Charles HospitalUrea nitrogen [Mass/volume] in Serum or PlasmaOrdered By: Peyton Hoskins on 07-25-2022 Urea nitrogen [Mass/Vol]17 mg/dL7-25M[facility] County HospitalCALCIUM 24 HR URINEon 34-03-2563KECZ, 24 HR UR202.8 mg/24 vzBwwrja921.0-300.0The [facility] HospitalComment on above:Performed By: #### [id number] #### [facility] [address] [place] [address] Dr. Tyree Cantu ZFRKRLS71.6 mg/dLNormal5.1-21.0The [facility] HospitalComment on above:Performed By: #### [id number] #### [facility] [address] [address] [address] Tyree Cantu TOT PCR9003 ml/24 HRNormalThe [facility] HospitalComment on above:Performed By: #### [id number] #### [facility] [address] [address] [address] Tyree BotelloMAGNESIUMon 11-83-1870Lqlulgxow [Mass/Vol]1.4 mg/dLCritically low 1.8-2.4The [facility] HospitalComment on above:Performed By: #### MG, RENAL, URIC #### [facility] [address] [place], [place] [id number] Dr. Tyree OliveraAL FUNCTION PANELon 35-57-6254Hpqczxj [Mass/Vol]3.1 g/dL Critically low3.4-5.0The [facility] HospitalComment on above:Performed By: #### MG, RENAL, URIC #### [facility] [address] [place] [address] Dr. Tyree BotelloCalcium [Mass/Vol]9.7 mg/dLNormal8.5-10.1The [facility] Comment on above:Performed By: #### MG, RENAL, URIC #### [facility] [address] [place] [address] Dr. Tyree BotelloChloride [Moles/Vol]102 mmol/KRxrwqz83-974Tqj [facility] Comment on above:Performed By: #### MG, RENAL, URIC #### [facility] [address] [place] [address] Dr. Tyree BotelloCO2 [Moles/Vol]26.1 mmol/CCagurn17.0-32.0The [facility] Comment on above:Performed By: #### MG, RENAL, URIC #### [facility] [address] [place] [address] Dr. Tyree BotelloCreatinine [Mass/Vol]1.13 mg/dLCritically high0.55-1.02The [facility] HospitalComment on above:Performed By: #### MG, RENAL, URIC #### [facility] [address] [place] [address] Dr. Tyree HolmGFR-AF MOSOTHO>60Normal>=60The [facility] HospitalComment on above:Performed By: #### MG, RENAL, URIC #### [facility] [address] [place] [address] Dr. Tyree HolmGFR-NON AF DGUBJNAT10 mL/min/1.84k4Ujudbpzexd low>=60The [facility] HospitalComment on above:Performed By: #### MG, RENAL, URIC #### [facility] [address] [place] [address] Dr. Tyree BotelloGlucose [Mass/Vol]355 mg/dLCritically xqwy82-819Tlj [facility] HospitalComment on above:Performed By: #### MG, RENAL, URIC #### [facility] [address] [address] [address] Tyree BotelloPhosphate [Mass/Vol]3.4 mg/dLNormal2.6-4.7The [facility] Comment on above:Performed By: #### MG, RENAL, URIC #### [facility] [address] [place] [address] Dr. Tyree BotelloPotassium [Moles/Vol]4.3 mmol/LNormal3.5-5.1[facility] Comment on above:Performed By: #### MG, RENAL, URIC #### [facility] [address] [place] [address] Dr. Tyree BotelloSodium [Moles/Vol]138 mmol/GWnfwju263-616Rol [facility] Comment on above:Performed By: #### MG, RENAL, URIC #### [facility] [address] [place] [address] Dr. Tyree BotelloUrea nitrogen [Mass/Vol]16.0 mg/dLNormal7.0-18.0The [facility] HospitalComment on above:Performed By: #### MG, RENAL, URIC #### [facility] [address] [place] [address] Dr. Tyree BotelloPTH INTACTon 60-17-8295VKO, Rgzuyw19 pg/jDBkqkub49-13Gvv [facility] HospitalComment on above:Performed By: #### MG, RENAL, URIC #### [facility] [address] [place] [address] Dr. Tyree BotelloHEMOGRAM AND PLATELon 78-00-5027Mprbhhzmpr (Bld) [Volume fraction]44.5 %Nslhvl46.0-48.0The [facility] HospitalComment on above:Performed By: #### MG, RENAL, URIC #### [facility] [address] [place] [address] Dr. Tyree BotelloHemoglobin (Bld) [Mass/Vol]15.0 g/eFCrmqom16.0-16.0The [facility] Hospitalment on above:Performed By: #### MG, RENAL, URIC #### [facility] [address] [place] [address] Dr. Tyree BotelloADIRONDACK MEDICAL [facility]ENTER (RBC) [Entitic mass]30.2 drUffdgb39.7-34.0The [facility] Hospitalment on above:Performed By: #### MG, RENAL, URIC #### [facility] [address] [place] [address] Dr. [facility] BotelloBETHESDA [facility] (RBC) [Mass/Vol]33.7 g/fPGvkmbz75.9-35.2The [facility] HospitalComment on above:Performed By: #### MG, RENAL, URIC #### [facility] [address] [place] [address] Dr. Tyree BotelloCHOCTAW MEMORIAL [facility] (RBC) [Entitic vol]89.5 kXAdumeb41.0-99.0The [facility] on above:Performed By: #### MG, RENAL, URIC #### [facility] [address] [place] [address] Dr. Tyree BotelloPLT263 103/fpJgcvhw671-413Amo [facility] on above: Performed By: #### MG, RENAL, URIC #### [facility] [address] [place] [address] Dr. Tyree BotelloRBC4.97 106/ulNormal4.20-5.40The [facility] on above:Performed By: #### MG, RENAL, URIC #### [facility] [address] [place] [address] Dr. Tyree BotelloWBC12.0 103/ulCritically high4.0-11.0The [facility] on above:Performed By: #### MG, RENAL, URIC #### [facility] [address] [place] [address] Dr. Tyree AveryESIUMon 46-55-2024Lsqxqykbk [Mass/Vol]1.2 mg/dLCritically low 1.8-2.4The [facility] HospitalCommunson healthcare [facility] on above:Performed By: #### MG, RENAL, URIC #### [facility] [address] [place] [address] Dr. Tyree BotelloRENAL FUNCTION PANELon 45-34-7785Kdiokho [Mass/Vol]3.1 g/dL Critically low3.4-5.0The [facility] HospitalComment on above:Performed By: #### MG, RENAL, URIC #### [facility] [address] [place] [address] Dr. Tyree BotelloCalcium [Mass/Vol]9.7 mg/dLNormal8.5-10.1The [facility] Comment on above:Performed By: #### MG, RENAL, URIC #### [facility] [address] [place] [address] Dr. Tyree BotelloChloride [Moles/Vol]104 mmol/IWmjbzq52-281Yaq [facility] Comment on above:Performed By: #### MG, RENAL, URIC #### [facility] [address] [place] [address] Dr. Tyree BotelloCO2 [Moles/Vol]28.6 mmol/GGbkfoe79.0-32.0The [facility] Comment on above:Performed By: #### MG, RENAL, URIC #### [facility] [address] [place] [address] Dr. Tyree BotelloCreatinine [Mass/Vol]0.95 mg/dLNormal0.55-1.02The [facility] HospitalComment on above:Performed By: #### MG, RENAL, URIC #### [facility] [address] [place] [address] Dr. Tyree HolmGFR-AF MOSOTHO>60Normal>=60The [facility] HospitalComment on above:Performed By: #### MG, RENAL, URIC #### [facility] [address] [place] [address] Dr. Tyree HolmGFR-NON AF MOSOTHO>60Normal>=60The [facility] HospitalComment on above:Performed By: #### MG, RENAL, URIC #### [facility] [address] [place] [address] Dr. Yilan ChangGlucose [Mass/Vol]148 mg/dLCritically oklk80-743Wag [facility] HospitalComment on above:Performed By: #### MG, RENAL, URIC #### [facility] [address] [address] [address] Tyree BotelloPhosphate [Mass/Vol]3.6 mg/dLNormal2.6-4.7The [facility] Comment on above:Performed By: #### MG, RENAL, URIC #### [facility] [address] [address] [address] Tyree BotelloPotassium [Moles/Vol]4.2 mmol/LNormal3.5-5.1The [facility] Comment on above:Performed By: #### MG, RENAL, URIC #### [facility] [address] [place] [address] Dr. Tyree BotelloSodium [Moles/Vol]143 mmol/AOcyjxj108-607Qih [facility] Comment on above:Performed By: #### MG, RENAL, URIC #### [facility] [address] [place] [address] Dr. Tyree BotelloUrea nitrogen [Mass/Vol]14.0 mg/dLNormal7.0-18.0The [facility] HospitalComment on above:Performed By: #### MG, RENAL, URIC #### [facility] [address] [place] [address] Dr. Tyree Blanca RANDOM W/MICROSCOPICon 36-35-2841NUSEZQBAWELY SEENNormalNONE SEENThe [facility] HospitalComment on above:Performed By: #### MG, RENAL, URIC #### [facility] [address] [place] [address] Dr. Tyree BotelloBilirubin Ql (U)NegativeNormalNEGATIVEThe [facility] Comment on above:Performed By: #### MG, RENAL, URIC #### [facility] [address] [place] [address] Dr. Tyree BotelloCASTSEENAbnormalNONE SEENThe [facility] HospitalComment on above: Performed By: #### MG, RENAL, URIC #### [facility] [address] [place], [place] [id number] Dr. Tyree Caseyarity (U)CLEARNormalCLEARLakehealth Tripoint Medical CenterComment on above: Performed By: #### MG, RENAL, URIC #### [facility] [address] [address] [address] Tyree Victor (U)LT. YELLOWNormalYELLOWLakehealth Tripoint Medical CenterComment on above:Performed By: #### MG, RENAL, URIC #### [facility] [address] [address] [address] Tyree BotelloCrystals LM Nom (Urine sed)NONE SEENNormalNONE SEENLakehealth Tripoint Medical CenterComment on above:Performed By: #### MG, RENAL, URIC #### [facility] [address] [place] [address] Dr. Clements ChangEgarfieldthelial cells LM Ql (Urine sed)FEWAbnormalNONE SEEN /RAREThe [facility] HospitalComment on above:Performed By: #### MG, RENAL, URIC #### [facility] [address] [place] [address] Dr. Tyree BotelloGlucose Ql (U)NegativeNormalNEGATIVELakehealth Tripoint Medical CenterComment on above:Performed By: #### MG, RENAL, URIC #### [facility] [address] [place] [address] Dr. Tyree BotelloHemoglobin Ql (U)SMALLAbnormalNEGATIVELakehealth Tripoint Medical Center Comment on above:Performed By: #### MG, RENAL, URIC #### [facility] [address] [address] [address] Tyree BotelloKetones Ql (U)NegativeNormalNEGATIVELakehealth Tripoint Medical CenterComment on above:Performed By: #### MG, RENAL, URIC #### [facility] [address] [place] [address] Dr. Tyree BotelloLEUKOCYTESNegativeNormalNEGATIVELakehealth Tripoint Medical CenterComment on above:Performed By: #### MG, RENAL, URIC #### [facility] [address] [address] [address] Tyree BotelloMUCOUSNONE SEENNormalNONE SEENThe [facility] HospitalComment on above:Performed By: #### MG, RENAL, URIC #### [facility] [address] [address] [address] Tyree Mccartney Ql (U)NegativeNormalNEGATIVEThe [facility] Mansfield HospitalComment on above:Performed By: #### MG, RENAL, URIC #### [facility] [address] [address] [address] Tyree BotellopH (U)5.0 [pH]Normal5-9The [facility] HospitalComment on above: Performed By: #### MG, RENAL, URIC #### [facility] [address] [address] [address] Tyree BotelloYigkjICX8-1Bhlygp9-0Njd Marymount Hospitalment on above:Performed By: #### MG, RENAL, URIC #### [facility] [address] [address] [address] Tyree BotelloSPEC GRAVITY>=1.612Vajuuker7.005-<=1.025The [facility] Comment on above:Performed By: #### MG, RENAL, URIC #### [facility] [address] [address] [address] Tyree BotelloUA PROTEIN>300AbnormalNEGATIVE/ TRACEThe [facility]field HospitalComment on above:Performed By: #### MG, RENAL, URIC #### [facility] [address] [address] [address] Tyree Olmosbilgreg Qn (U)0.2 {Jennifer'U}/dLNormal0.2 - 1.0The [facility] HospitalCommunson healthcare [facility] on above:Performed By: #### MG, RENAL, URIC #### [facility] [address] [address] [address] Tyree BotelloWBC0-2AbnormalNONE SEENLakehealth Tripoint Medical CenterComment on above: Performed By: #### MG, RENAL, URIC #### [facility] [address] [address] [address] Tyree BotelloURIC ACID SERUMon 67-19-5785Etbsb [Mass/Vol]5.8 mg/dLNormal 2.6-6.0Lake[facility] Tripoint Medical CenterComment on above:Performed By: #### MG, RENAL, URIC #### [facility] [address] [address] [address] Tyree BotelloVITAMIN D 25 OHon 22-65-2237BXQ D 25-OH39.2 ng/mLNormalLakehealth Tripoint Medical CenterComment on above:Performed By: #### MG, RENAL, URIC #### [facility] [address] [address] [address] Tyree Murdock D RANGES[place] BELOWNoOhioHealth Marion General HospitalComment on above: Result Comment: <20 ng/mL Vit D deficient 20 - <30 ng/mL Vit D insufficient 30 - 100 ng/mL Vit D sufficient >100 ng/mL Potential ToxicityPerformed By: #### MG, RENAL, URIC #### [facility] [address] [address] [address] Tyree BotelloAlbumin [Mass/volume] in Body fluidOrdered By: Isela Downs on 16-10-0220Yitsqla (Body fld) [Mass/Vol]3.6 g/dL3.2-5.5FMiddletown HospitalAlbumin [Mass/volume] in Serum or PlasmaOrdered By: Isela Downs on 70-47-3905Keaovhm [Mass/Vol]3.4 g/dL2.9-4.4FMiddletown Hospital Albumin/Protein.total in 24 hour Urine by ElectrophoresisOrdered By: Isela Downs on 59-51-4839Mmnmepu Elph (24H U) [Mass fraction]77.3 %.[facility] HospitalAlkaline phosphatase [Enzymatic activity/volume] in Serum or PlasmaOrdered By: Isela Downs on 12-90-2105IQM [Catalytic activity/Vol]57 U/L32-92 [facility] HospitalAspartate aminotransferase [Enzymatic activity/volume] in Serum or PlasmaOrdered By: Isela Downs on 94-64-6247BWQ [Catalytic activity/Vol]26 U/H27-07AtinsakuvMorrow County HospitalBasophils Auto (Bld) [#/Vol]Ordered By: Isela Downs on 66-85-8710Pjawichzu (Bld) [#/Vol]0.1 10*3/uL0.0-0.2FMiddletown HospitalBasophils/100 WBC Auto (Bld) Ordered By: Isela Downs on 62-06-4904Angenkpyc/100 WBC (Bld)0.9 %.[facility] HospitalBilirubin.total [Mass/volume] in Serum or PlasmaOrdered By: Isela Downs on 17-58-5727Rwfwtqsrt [Mass/Vol]0.4 mg/dL0.3-1.2FMiddletown HospitalCalcium [Mass/volume] in Serum or PlasmaOrdered By: Isela Downs on 79-11-3739Hggcrno [Mass/Vol]9.6 mg/dL8.2-10.2FMiddletown HospitalCarbon dioxide, total [Moles/volume] in Serum or PlasmaOrdered By: Isela Downs on 81-66-8068JH0 [Moles/Vol]20.1 mmol/L22.0-30.0[facility] HospitalChloride [Moles/volume] in Serum or PlasmaOrdered By: Isela Downs on 90-21-5260Momzyxfv [Moles/Vol]101 mmol/C89-838SzynmjzclMorrow County Hospital Creatinine and Glomerular filtration rate.predicted panel (S/P/Bld)Ordered By: Isela Downs on 05-78-2997Mrgzfhurhv [Mass/Vol]0.90 mg/dL0.44-1.03[facility] HospitalEosinophils Auto (Bld) [#/Vol]Ordered By: Isela Downs on 56-26-2239Skinftkxiys (Bld) [#/Vol]0.2 10*3/uL0.0-0.45[facility] HospitalEosinophils/100 WBC Auto (Bld)Ordered By: Isela Downs on 04-27-2022 Eosinophils/100 WBC (Bld)1.5 %.[facility] HospitalErythrocyte distribution width Auto (RBC) [Ratio]Ordered By: Isela Downs on 04-27-2022 Erythrocyte distribution width (RBC) [Ratio]13.3 %11.9-15.3FMiddletown HospitalEstimated glomerular filtration rate (GFR) non- Ordered By: Isela Downs on 47-46-2680CXV/1.73 sq M.predicted among non-blacks MDRD (S/P/Bld) [Vol rate/Area]> 60 mL/MinMorrow County HospitalGamma globulin/Protein.total in 24 hour Urine by ElectrophoresisOrdered By: Isela Downs on 16-58-3452Mspzk globulin Elph (24H U) [Mass fraction]3.7 %.[facility] County HospitalGlobulin Calc (S) [Mass/Vol]Ordered By: Isela Downs on 04-27-2022 Globulin (S) [Mass/Vol]3.3 g/dLMorrow County HospitalGlucose [Mass/volume] in Serum or PlasmaOrdered By: Isela Downs on 70-66-9906Yhxzesp [Mass/Vol]327 mg/yX06-005RealwrfvkMorrow County HospitalComment on above:ADA recommended reference rangeRandom Glucose Reference Range is dependent on time and content of last meal. Glucose of more than 200 mg/dL in a nonstressed, ambulatory subject supports the diagnosisof Diabetes Mellitus.Hematocrit Auto (Bld) [Volume fraction]Ordered By: Isela Downs on 87-21-2885Qkousditsb (Bld) [Volume fraction]45.4 %34.0-46.4FMiddletown HospitalHemoglobin [Mass/volume] in BloodOrdered By: Isela Downs on 84-59-3624Tjkngsfiwm (Bld) [Mass/Vol]15.2 g/dL11.8-15.4FMiddletown HospitalImmunoglobulin light chains.kappa.free [Mass/volume] in SerumOrdered By: Isela Downs on 44-40-2752Lhvpnqzcumfiux light chains.kappa.free (S) [Mass/Vol]25.4 mg/L3.3-19.4 [facility] HospitalImmunoglobulin light chains.kappa.free/Immunoglobulin light chains.lambda.free [MassOrdered By: Isela Downs on 91-03-0318Ddnspmtpnmzgap light chains.kappa.free/Immunoglobulin light chains.lambda.free (S) [Mass ratio]1.620.26-1.65[facility] HospitalComment on above:Performed at: [address] [place] [id number] Director: Duke Peguero PhD, Phone: [phone] Immunoglobulin light chains.lambda.free [Mass/volume] in Serum or PlasmaOrdered By: Isela Downs on 69-94-4445Iullzmrdvvbeta light chains.lambda.free [Mass/Vol] 15.7 mg/L5.7-26.3FMiddletown HospitalLeukocytes [#/volume] corrected for nucleated erythrocytes in Blood by Automated counOrdered By: Isela Downs on 72-08-5374LOG corrected for nucl RBC Auto (Bld) [#/Vol]11.3 10*3/uL 3.8-11.6FMiddletown HospitalLymphocytes Auto (Bld) [#/Vol]Ordered By: Isela Downs on 20-60-9110Xgnldudvsor (Bld) [#/Vol]3.6 10*3/uL1.00-4.8[facility] HospitalLymphocytes/100 WBC Auto (Bld)Ordered By: Isela Downs on 70-26-0504Qwtsjojdlue/100 WBC (Bld)31.7 %.[facility] HospitalH Auto (RBC) [Entitic mass]Ordered By: Isela Downs on 63-14-7917KOO (RBC) [Entitic mass]30.0 pg24.7-34.3FMiddletown HospitalMCHC Auto (RBC) [Mass/Vol] Ordered By: Isela Downs on 20-56-2829SPOE (RBC) [Mass/Vol]33.5 g/dL32.0-35.0 [facility] HospitalMCV Auto (RBC) [Entitic vol]Ordered By: Isela Downs on 22-30-5564FZO (RBC) [Entitic vol]89.6 pW58-249QxtvuigudMorrow County HospitalMonocytes Auto (Bld) [#/Vol]Ordered By: Isela Downs on 04-27-2022 Monocytes (Bld) [#/Vol]0.5 10*3/uL0.0-0.8[facility] Monocytes/100 WBC Auto (Bld)Ordered By: Isela Downs on 88-31-8586Lrfwpxyot/100 WBC (Bld)4.8 %.[facility] HospitalNeutrophils Auto (Bld) [#/Vol] Ordered By: Isela Downs on 75-90-4679Yustetoeikj (Bld) [#/Vol]6.9 10*3/uL1.8-7.7 [facility] HospitalNeutrophils/100 WBC Auto (Bld)Ordered By: Isela Downs on 57-86-4020Wskjnuehscz/100 WBC (Bld)61.1 %.[facility] HospitalNo Panel InformationOrdered By: Isela Downs on 18-72-7446Cxyxc Random Prot Electrophor NoteSee comment.[facility] HospitalComment on above: Protein electrophoresis scan will follow via computer,mail, or receiving associate delivery.Performed at: [employer] [address] [id number] Director: Duke Peguero PhD, Phone: [phone] GFR ()> 60 mL/MinMorrow County HospitalComment on above: GFR estimated reference range: According to KDOQI guidelines, <60 ml/min/1.73m2 is sufficient todiagnose a patient with chronic kidney disease.Pharmacy Creatinine Clearance (Chem83.02[facility] HospitalProtein Electrophoresis M-SpikeNot observed g/dLNot ObservedMorrow County HospitalProtein Electrophoresis NoteSee comment.[facility] Comment on above:Protein electrophoresis scan will follow via computer,mail, or receiving associate delivery.Performed at: [employer] [address] [id number] Director: Duke Peguero PhD, Phone: [phone] erythrocytes [Presence] in Blood by Automated countOrdered By: Isela Downs on 38-28-5756Vlyawmanw RBC Auto Ql (Bld)0.1 /100{WBC}0-0.5FMiddletown HospitalPlatelet mean volume Auto (Bld) [Entitic vol]Ordered By: Isela Downs on 25-90-7341Fptoooeu mean volume (Bld) [Entitic vol]9.5 fL6.3-10.7FMiddletown HospitalPlatelets Auto (Bld) [#/Vol]Ordered By: Isela Downs on 79-04-6780Bfuonsqqw (Bld) [#/Vol]257 10*3/xF181-186GqkimwmqeMorrow County HospitalPotassium [Moles/volume] in Serum or PlasmaOrdered By: Isela Downs on 20-95-6581Smzxfqrbi [Moles/Vol]4.3 mmol/L3.5-5.1FMiddletown HospitalProtein [Mass/volume] in Serum or PlasmaOrdered By: Isela Downs on 19-57-8646Xgygyya [Mass/Vol]6.9 g/dL6.1-7.9[facility] Protein [Mass/Vol]6.8 g/dL6.0-8.5FMiddletown HospitalProtein [Mass/volume] in UrineOrdered By: Isela Downs on 47-98-1671Dmvnasa (U) [Mass/Vol] 183.6 mg/dLNot Estab.[facility] Protein.monoclonal/Protein.total in 24 hour Urine by ElectrophoresisOrdered By: Isela Downs on 30-63-2032Hzdfyta.monoclonal Elph (24H U) [Mass fraction]Not observed %Not ObservedMorrow County HospitalRBC Auto (d) [#/Vol] Ordered By: Isela Downs on 52-55-9721MQU (d) [#/Vol]5.07 10*6/uL3.60-5.00 [facility] Hospitalerum globulin measurement (mass/volume)Ordered By: Isela Downs on 52-46-1555Hpaakiod (S) [Mass/Vol]3.4 g/dL2.2-3.9[facility] Hospitalerum or plasma alanine aminotransferase measurement without P-5'-P (enzymatic activiOrdered By: Isela Downs on 36-68-5848CLE No additional P-5'-P [Catalytic activity/Vol]36 U/Y18-01QujfykpdyUC West Chester Hospitalerum or plasma albumin/globulin mass ratioOrdered By: Isela Downs on 15-50-9364Tzuritg/Globulin [Mass ratio]1.1 {ratio}[facility] HospitalAlbumin/Globulin [Mass ratio]1.0 {ratio}0.7-1.7FMercy Health Urbana Hospitalerum or plasma alpha 1 globulin measurement by electrophoresis (mass/volume)Ordered By: Isela Downs on 30-00-1888Lonhg 1 globulin Elph [Mass/Vol] 0.3 g/dL0.0-0.4FMercy Health Urbana Hospitalerum or plasma alpha 2 globulin measurement by electrophoresis (mass/volume)Ordered By: Isela Downs on 04-27-2022 Alpha 2 globulin Elph [Mass/Vol]1.6 g/dL0.4-1.0[facility] Serum or plasma anion gap determinationOrdered By: Isela Downs on 50-07-3538Qlxwu gap [Moles/Vol]18.2 mmol/L6.0-15.0[facility] Hospitalerum or plasma beta globulin measurement by electrophoresis (mass/volume)Ordered By: Isela Downs on 59-49-6774Skce globulin Elph [Mass/Vol]1.1 g/dL0.7-1.3FMercy Health Urbana Hospitalerum or plasma rnwa-9-cypzgfleimswu measurement (mass/volume)Ordered By: Isela Downs on 06-98-7017Gyxt-2-Microglobulin [Mass/Vol] 1.9 ug/mL0.6-2.4FMiddletown HospitalComment on above:Siemens Immulite 2000 Immunochemiluminometric assay (ICMA)Values obtained with different assay methods or kits cannotbe used interchangeably. Results cannot be interpreted asabsolute evidence of the presence or absence of malignantdisease.Performed at: [facility] [id number] Director: Loni Olvera MD, Phone: [phone] or plasma gamma globulin measurement by electrophoresis (mass/volume)Ordered By: Isela Downs on 87-38-0531Rdowc globulin Elph [Mass/Vol]0.5 g/dL0.4-1.8[facility] Hospitalodium [Moles/volume] in Serum or PlasmaOrdered By: Isela Downs on 09-62-5617Tacmrr [Moles/Vol]135 mmol/T048-129EftyjdehzMorrow County HospitalUrea nitrogen [Mass/volume] in Serum or PlasmaOrdered By: Isela Downs on 72-18-2379Tkej nitrogen [Mass/Vol]14 mg/dL9-23[facility] Urine alpha 1 globulin/total protein by electrophoresisOrdered By: Isela Abramsse on 48-91-9524Cmtkl 1 globulin Elph (U) [Mass fraction]2.6 %.[facility] HospitalUrine alpha 2 globulin/total protein ratio by electrophoresis Ordered By: Isela Himanshu on 11-98-9238Shtwe 2 globulin Elph (U) [Mass fraction]4.2 %.[facility] HospitalUrine beta globulin measurement by electrophoresis (mass/volume)Ordered By: Isela Himanshu on 12-98-5820Ikoi globulin Elph (U) [Mass/Vol]12.2 %.[facility] HospitalWBC Auto (Bld) [#/Vol]Ordered By: Isela Downs on 96-25-8213RCR (Bld) [#/Vol]11.3 10*3/uL3.8-11.6 [facility] HospitalPARATHYROID HORMONE- RELATED PEPTIDEon 41-11-4125BLRuY (PTH-Related Peptide)<2.0NoOhioHealth Marion General HospitalComment on above:Result Comment: This test was developed and its performance characteristics determined by [employer]. It has not been cleared or approved [...] results are clinically discordant, please contact the laboratory.Performed By: #### MG, RENAL, URIC #### [facility] [address] [place] [address] Dr. Tyree BotelloIMMUNOFIXATION (CHERRI), URINEon 03-21-0474DKU Interpretation:U CommentNoOhioHealth Marion General HospitalComment on above:Result Comment: No monoclonality detected.Performed By: #### MG, RENAL, URIC #### [facility] [address] [place] [address] Dr. Tyree BotelloPROTEIN ELECTROPHERESIS URINE RANDOMon 52-83-4058Qumsicu, U80.3 % NormalThe [facility] HospitalComment on above:Performed By: #### MG, RENAL, URIC #### [facility] [address] [address] [address] Tyree BotelloAlpha-1 Globulin U4.3 %NormalThe University of Toledo Medical Centerment on above:Performed By: #### MG, RENAL, URIC #### [facility] [address] [place] [address] Dr. Tyree Elizondo-2 Glubulin U2.9 %NormalLakehealth Tripoint Medical CenterComment on above:Performed By: #### MG, RENAL, URIC #### [facility] [address] [address] [address] Tyree BotelloBeta Globulin, U10.2 %NormalLakehealth Tripoint Medical CenterComment on above:Performed By: #### MG, RENAL, URIC #### [facility] [address] [place] [address] Dr. Tyree BotelloGamma Globulin U2.2 %NormalThe University of Toledo Medical Centerment on above: Performed By: #### MG, RENAL, URIC #### [facility] [address] [place] [address] Dr. Tyree BotelloM-Sarthak, %Not ObservedNormalNot ObservedLakehealth Tripoint Medical Center Comment on above:Performed By: #### MG, RENAL, URIC #### [facility] [address] [place] [address] Dr. Tyree Huerta.NormalThe University of Tol[facility] Medical Centerment on above:Performed By: #### MG, RENAL, URIC #### [facility] [address] [place] [address] Dr. Tyree Anderson note:CommentNormalThe [facility] on above: Result Comment: Protein electrophoresis scan will follow via computer, mail, or receiving associate delivery.Performed By: #### MG, RENAL, URIC #### [facility] [address] [place] [address] Dr. Tyree BotelloProtein (U) [Mass/Vol]181.5 mg/dLNormalNot Estab.The [facility] HospitalComment on above:Performed By: #### MG, RENAL, URIC #### [facility] [address] [place] [address] Dr. Tyree Murdock D 1 25 DIHYDROXYon 20-06-5051Rllokemdzc(1,25 di-OH Vit D)12.5 pg/mLCritically low24.8-81.5The [facility] HospitalComment on above:Performed By: #### MG, RENAL, URIC #### [facility] [address] [place] [address] Dr. Tyree BotelloIMMUNOFIXATION(CHERRI),PROTEIN ELEC(PE),FREon 46-15-7664Ppooqmg [Mass/Vol]3.5 g/dLNormal2.9-4.4The [facility] HospitalComment on above:Performed By: #### IFEPEFL #### [facility] [address] [place] [address] Dr. Tyree BotelloAlbumin/Globulin [Mass ratio]1.1 {ratio}Normal0.7-1.7The [facility] HospitalComment on above:Performed By: #### IFEPEFL #### [facility] [address] [place] [address] Dr. Tyree BotelloEjsgkDigxr-6-Wgjjfvkp1.2 g/dLNormal0.0-0.4The [facility] HospitalComment on above:Performed By: #### IFEPEFL #### [facility] [address] [place] [address] Dr. Tyree BotelloRcwnsQcumx-5-Bejawuve0.5 g/dLCritically high0.4-1.0The [facility] HospitalComment on above:Performed By: #### IFEPEFL #### [facility] [address] [place] [address] Dr. Tyree BotelloBeta Globulin1.3 g/dLNormal0.7-1.3The [facility] HospitalComment on above:Performed By: #### IFEPEFL #### [facility] [address] [place] [address] Dr. Tyree BotelloFrporsha Opdyke Lt Chains,S25.5 mg/LCritically high3.3-19.4The [facility] HospitalComment on above:Performed By: #### IFEPEFL #### [facility] [address] [place] [address] Dr. Tyree Thompson Lambda Lt Chains,S15.9 mg/LNormal5.7-26.3The [facility] HospitalComment on above:Performed By: #### IFEPEFL #### [facility] [address] [address] [address] Tyree BotelloGamma Globulin0.5 g/dLNormal0.4-1.8The [facility] HospitalComment on above:Performed By: #### IFEPEFL #### [facility] [address] [address] [address] Tyree BotelloGlobulin (S) [Mass/Vol]3.5 g/dLNormal2.2-3.9The [facility] Comment on above:Performed By: #### IFEPEFL #### [facility] [address] [place] [address] Dr. Tyree BotelloImmunofixation Result, SerumComment:NormalThe [facility] Comment on above:Result Comment: Presence of monoclonal protein is unclear at this time. Suggest repeat in 3 to 6 months if clinically indicated.Performed By: #### IFEPEFL #### [facility] [address] [address] [address] Tyree BotelloImmunoglobulin A, Qn, Vtshv305 mg/qJEbqzvl18-126Qsr [facility] HospitalComment on above:Performed By: #### IFEPEFL #### [facility] [address] [address] [address] Tyree BotelloImmunoglobulin G, Qn, Cuwaw195 mg/dLCritically viu573-4643Zpj [facility] HospitalComment on above:Performed By: #### IFEPEFL #### [facility] [address] [address] [address] Tyree BotelloImmunoglobulin M, Qn, Lmkco432 mg/qHNedzyf15-187Smt [facility] HospitalComment on above:Performed By: #### IFEPEFL #### [facility] [address] [address] [address] Tyree BotelloKappa/Lambda Ratio, S1.27Usjkqr1.26-1.65[facility] Comment on above:Performed By: #### IFEPEFL #### [facility] [address] [address] [address] Tyree Barrett-SpikeNot ObservedNormalNot ObservedThe [facility] HospitalComment on above:Performed By: #### IFEPEFL #### [facility] [address] [place] [address] Dr. Tyree BotelloPDF.NormalThe [facility] HospitalComment on above:Performed By: #### IFEPEFL #### [facility] [address] [place] [address] Dr. Tyree BotelloPlease note:CommentNormalThe [facility]mount Hospitalment on above: Result Comment: Protein electrophoresis scan will follow via computer, mail, or receiving associate delivery.Performed By: #### IFEPEFL #### [facility] [address] [place] [address] Dr. Tyree BotelloProtein [Mass/Vol]7.0 g/dLNormal6.0-8.5ThTriHealth [facility]ull[facility] Comment on above:Performed By: #### IFEPEFL #### [facility] [address] [place] [address] Dr. Tyree BotelloPTAnshul INTACTon 47-17-7016ABK, Intact9 pg/mLCritically nzu86-34QgjLakehealth Tripoint Medical CenterComment on above:Performed By: #### PTHINT #### [facility] [address] [place] [address] Dr. Tyree BotelloHEMOGRAM AND PLATELon 22-55-0182Jrrivnxhsh (Bld) [Volume fraction]51.5 %Critically high36.0-48.0The [facility] HospitalComment on above: Performed By: #### MG, RENAL, URIC #### [facility] [address] [place] [address] Dr. Tyree BotelloHemoglobin (Bld) [Mass/Vol]16.2 g/dLCritically high12.0-16.0The [facility] HospitalComment on above:Performed By: #### MG, RENAL, URIC #### [facility] [address] [place] [address] Dr. Tyree BotelloADIRONDACK [facility] (RBC) [Entitic mass]30.1 xgCkmipp49.7-34.0The [facility] HospitalComment on above:Performed By: #### MG, RENAL, URIC #### [facility] [address] [place] [address] Dr. Tyree Russo (RBC) [Mass/Vol]31.5 g/jUJiebuq97.9-35.2The [place] HospitalComment on above:Performed By: #### MG, RENAL, URIC #### [facility] [address] [place] [address] Dr. Tyree BotelloCHOCTAW [facility]ORIAL [facility] (RBC) [Entitic vol]95.7 rVDspvgx77.0-99.0The [facility] on above:Performed By: #### MG, RENAL, URIC #### [facility] [address] [place] [address] Dr. Tyree BotelloPLT280 103/glRxackr139-385Pgt [facility] HospitalCommunson healthcare [facility] on above: Performed By: #### MG, RENAL, URIC #### [facility] [address] [place] [address] Dr. Tyree CarbajalC5.38 106/ulNormal4.20-5.40The [facility] on above:Performed By: #### MG, RENAL, URIC #### [facility] [address] [place] [address] Dr. Tyree BotelloWBC11.7 103/ulCritically high4.0-11.0The [facility] HospitalCommunson healthcare [facility] on above:Performed By: #### MG, RENAL, URIC #### [facility] [address] [place] [address] Dr. Tyree CarterGNESIUMon 38-87-5860Llzasppph [Mass/Vol]1.1 mg/dLCritically low 1.8-2.4The [facility] HospitalCommunson healthcare [facility] on above:Performed By: #### MG, URIC, RENAL #### [facility] [address] [place] [address] Dr. Tyree OliveraAL FUNCTION PANELon 41-30-6546Eliucqr [Mass/Vol]3.5 g/dLNormal 3.4-5.0The [facility] Hospitalment on above:Performed By: #### MG, URIC, RENAL #### [facility] [address] [address] [address] Tyree BotelloCalcium [Mass/Vol]11.5 mg/dLCritically high8.5-10.1The [facility] HospitalComment on above:Performed By: #### MG, URIC, RENAL #### [facility] [address] [address] [address] Tyree BotelloChloride [Moles/Vol]95 mmol/LCritically avb41-348Eng [facility] on above:Performed By: #### MG, URIC, RENAL #### [facility] [address] [place] [address] Dr. Tyree BotelloCO2 [Moles/Vol]28.3 mmol/FHwvizw15.0-32.0The [facility] Comment on above:Performed By: #### MG, URIC, RENAL #### [facility] [address] [address] [address] Tyree BotelloCreatinine [Mass/Vol]1.17 mg/dLCritically high0.55-1.02The [facility] on above:Performed By: #### MG, URIC, RENAL #### [facility] [address] [place] [address] Dr. Clements ChangEGFR-AF UCTOMZYF33 mL/min/1.01e6Vprhtwrbpm low>=60The [facility] on above:Performed By: #### MG, URIC, RENAL #### [facility] [address] [address] [address] Tyree HolmGFR-NON AF DYBALBGL93 mL/min/1.41e9Prcvojxxap low>=60The [facility] Hospitalment on above:Performed By: #### MG, URIC, RENAL #### [facility] [address] [address] [address] Tyree BotelloGlucose [Mass/Vol]229 mg/dLCritically wlfp05-177Jmd [facility] HospitalComment on above:Performed By: #### MG, URIC, RENAL #### [facility] [address] [place] [address] Dr. Tyree BotelloPhosphate [Mass/Vol]3.0 mg/dLNormal2.6-4.7The [facility] Comment on above:Performed By: #### MG, URIC, RENAL #### [facility] [address] [place] [address] Dr. Tyree BotelloPotassium [Moles/Vol]3.5 mmol/LNormal3.5-5.1The [facility] Comment on above:Performed By: #### MG, URIC, RENAL #### [facility] [address] [place] [address] Dr. Tyree BotelloSodium [Moles/Vol]136 mmol/CZenrxc168-598Rfb [facility] Comment on above:Performed By: #### MG, URIC, RENAL #### [facility] [address] [place] [address] Dr. Tyree Grant nitrogen [Mass/Vol]20.0 mg/dLCritically high7.0-18.0The [facility] HospitalComment on above:Performed By: #### MG, URIC, RENAL #### [facility] [address] [place] [address] Dr. Tyree Blanca RANDOM W/MICROSCOPICon 50-02-0308RTEOYGPKHZYMFCucrotqhKUTL SEENThe [facility] HospitalComment on above:Performed By: #### UAMIC #### [facility] [address] [place] [address] Dr. Tyree Colemanirubin Ql (U)SMALLAbnormalNEGATIVEThe [facility] HospitalComment on above:Performed By: #### UAMIC #### [facility] [address] [place] [address] Dr. Tyree GuptaSEENAbnormalNONE SEENLakehealth Tripoint Medical CenterComment on above: Performed By: #### UAMIC #### [facility] [address] [place] [address] Dr. Yilan ChangClarity (U)CLEARNormalCLEARLakehealth Tripoint Medical CenterComment on above: Performed By: #### UAMIC #### [facility] [address] [address] [address] Tyree Polancolor (U)YELLOWNormalYELLOWLakehealth Tripoint Medical CenterComment on above: Performed By: #### UAMIC #### [facility] [address] [address] [address] Tyree BotelloCrystals LM Nom (Urine sed)NONE SEENNormalNONE SEENLakehealth Tripoint Medical CenterComment on above:Performed By: #### UAMIC #### [facility] [address] [address] [address] Clements ChangEpithelial cells LM Ql (Urine sed)MODERATEAbnormalNONE SEEN /RARE [facility] CenterCommunson healthcare [facility] on above:Performed By: #### UAMIC #### [facility] [address] [address] [address] Tyree BotelloGlucose Ql (U)500 mg/dlAbnoalNEGSouthern [facility] Comment on above:Performed By: #### UAMIC #### [facility] [address] [address] [address] Tyree BotelloHemoglobin Ql (U)MODERATEAbrmalNEGSouthern [facility] Medical Center Comment on above:Performed By: #### UAMIC #### [facility] [address] [address] [address] Tyree BotelloHYALINE CASTFEWNormalThTriHealth McCullough-Hyde Memorial HospitalComment on above: Performed By: #### UAMIC #### [facility] [address] [address] [address] Tyree BotelloKetones Ql (U)TRACEAbnormalNEGATIVELakehealth Tripoint Medical CenterCommunson healthcare [facility] hospital on above:Performed By: #### UAMIC #### [facility] [address] [place] [address] Dr. Tyree BotelloLEUKOCYTESNegativermalNEGSouthern Ohio Medical CenterComment on above:Performed By: #### UAMIC #### [facility] [address] [address] [address] Tyree DanielsCOUSBRAN SEENNormalNONE SEENThe [facility] HospitalComment on above:Performed By: #### UAMIC #### [facility] [address] [place] [address] Dr. Tyree Mccartney Ql (U)NegativeNormalNEGATIVEThe [facility] HospitalComment on above:Performed By: #### UAMIC #### [facility] [address] [address] [address] Tyree BotellopH (U)5.5 [pH]Normal5-9The [facility] HospitalComment on above: Performed By: #### UAMIC #### [facility] [address] [place] [address] Dr. Tyree BotelloEjvdvOXU8-9Ddvwfeal6-5Ael [facility] HospitalComment on above:Performed By: #### UAMIC #### [facility] [address] [place] [address] Dr. Tyree BotelloSPEC GRAVITY>=1.385Bjrtuqrl0.005-<=1.025The [facility] Comment on above:Performed By: #### UAMIC #### [facility] [address] [place] [address] Dr. Tyree Blanca PROTEIN>300AbnormalNEGATIVE/ TRACEThe [facility] HospitalComment on above:Performed By: #### UAMIC #### [facility] [address] [place] [address] Dr. Tyree BotelloUrobilinogen Qn (U)0.2 {Jennifer'U}/dLNormal0.2 - 1.0The [facility] HospitalComment on above:Performed By: #### UAMIC #### [facility] [address] [address] [address] Tyree BotelloWBC2-5AbnormalNONE SEENThe [facility] HospitalComment on above: Performed By: #### UAMIC #### [facility] [address] [place] [address] Dr. Tyree BotelloURIC ACID SERUMon 99-76-3488Iyhah [Mass/Vol]8.0 mg/dLCritically high2.6-6.0The [facility] HospitalComment on above:Performed By: #### MG, URIC, RENAL #### [facility] [address] [place] [address] Dr. Tyree Simmons T PROTEIN CREAT RATIOon 66-39-2359RC PROT CREAT RAT0.66 NormalThe [facility] HospitalComment on above:Performed By: #### MG, RENAL, URIC #### [facility] [address] [place] [address] Dr. Tyree Cantu TOTAL PROTEIN>200.0Critically high<=12.0[facility] Comment on above:Performed By: #### MG, RENAL, URIC #### [facility] [address] [place] [address] Dr. Tyree Simmons TLNXM625.32 mg/dLCritically high20.00-300.00The [facility] HospitalComment on above:Performed By: #### MG, RENAL, URIC #### [facility] [address] [place] [address] Dr. Tyree BotelloVITAMIN D 25 OHon 73-96-6961YMK D 25-OH49.7 ng/mLNormalThe [facility] HospitalComment on above:Performed By: #### MG, RENAL, URIC #### [facility] [address] [place] [address] Dr. Tyree Boogie [facility]ERE [facility] HospitalComment on above: Result Comment: <20 ng/mL Vit D deficient 20 - <30 ng/mL Vit D insufficient 30 - 100 ng/mL Vit D sufficient >100 ng/mL Potential ToxicityPerformed By: #### MG, RENAL, URIC #### [facility] [address] [place] [address] Dr. Tyree BotelloSCREENING MAMMOGRAM W/CHASE, BILATERAL*on 98-66-9600RYNZLKDIS MAMMOGRAM W/CHASE, BILATERAL*COMPARISON: Dating back to March 06, 2021 and [...] VERY IMPORTANT TO YOUR HEALTH. THE CURRENT [place] [employer] GUIDELINES RECOMMENDS ANNUAL MAMMOGRAPHY BEGINNING AT AGE 40 THIS FACILITY USES A REMINDER SYSTEM TO ENSURE ALL PATIENTS RECEIVE REMINDER NOTIFICATIONS AT THE APPROPRIATE TIME BASED ON THE RECOMMENDATIONS OF THIS EXAM. Report reported and signed by Rich Soriano on 03/13/2022 0925NoalNoGrand Lake Joint Township District Memorial HospitalCoding Summary.on 41-98-6200Ckwpeg Summary. CD:[id number]:[id number]+PGhlYWQ+WN0MGUYeD19kyQUhtO4XS2bCQE3ALEWFYUPIBR7YXP4ve OD0RYucI3LqywKd [file] Y29s (more content not included)...[facility] CampusCoding Summary.on 05-26-9512Zzhklt Summary. CD:[id number]:[id number]+PGhlYWQ+OG1BBNWdL51ccQKqdQ5OT4lGUB3FBJDSCKPTDK8DXW2ai RH3WNhjJ8UyemMg [file] bGxh (more content not included)...NormalVeterans Health AdministrationPhysician Orderon 62-94-7812Hfgkuythh Order [id number]#1.00CD:127NormalVeterans Health AdministrationBMPon 82-43-1888Tegqb gap [Moles/Vol]18 mmol/LHigh6-16Veterans Health AdministrationComment on above:Performed By: #### [id number], [id number] #### [facility] [address] [place] [address] 135[address]Runvizy [Mass/Vol]9.6 mg/dLNormal8.9-11.1FUniversity Hospitals Samaritan Medical CenterComment on above:Performed By: #### [id number], [id number] #### [facility] [address], [place] [address]Ezkudxjm [Moles/Vol]101 mmol/GBgxvpb067-724PovoaxVeterans Health AdministrationComment on above:Performed By: #### [id number], [id number] #### [facility] [address], [place] [address]FT2 [Moles/Vol]23 mmol/TBgyvmi43-91BuzbybVeterans Health Administration Comment on above:Performed By: #### [id number], [id number] #### [facility] [address], [place] [address]Ftvyhfdmxi [Mass/Vol]1.0 mg/dLNormal0.5-1.3FUniversity Hospitals Samaritan Medical CenterComment on above:Performed By: #### [id number], [id number] #### [facility] [address], [place] [address]Xecbyzo [Mass/Vol]154 mg/yKSiaahl16-504JghzvyVeterans Health AdministrationComment on above:Result Comment: If this glucose result represents a fasting glucose, interpretation should refer tothe following reference range: 55-99 mg/dLPerformed By: #### [id number], [id number] #### [facility] [address], [place] [address]Yaavsgeey [Moles/Vol]3.9 mmol/LNormal3.5-5.3FUniversity Hospitals Samaritan Medical CenterComment on above:Performed By: #### [id number], [id number] #### [facility] [address], [place] [address]Twvngd [Moles/Vol]138 mmol/MJodotv796-993PgkulrVeterans Health AdministrationComment on above:Performed By: #### [id number], [id number] #### [facility] [address], [place] [address]Evxj nitrogen [Mass/Vol]19 mg/dLNormal5-21Veterans Health AdministrationComment on above:Performed By: #### [id number], [id number] #### [facility] [address], [place] [address]Jmna nitrogen/Creatinine [Mass ratio]19 No IzbpoVctiwa94-47 [facility] Health AdministrationComment on above:Performed By: #### [id number], [id number] #### [facility] [address], [place] [address]RBLNHMYEOHubcsjf By: SYSTEM SYSTEM on 40-49-7211Cbdxg gap [Moles/Vol]18 mmol/LHigh6 - 16 mEq/LFTMC RemisolCalcium [Mass/Vol]9.6 mg/dL Normal8.9 - 11.1 mg/dLFT RemisolChloride [Moles/Vol]101 mmol/NRqxwhd662 - 111 mmol/LFTMC RemisolCO2 [Moles/Vol]23 mmol/BBnrxhf77 - 31 mmol/LFTMC Remisol Creatinine [Mass/Vol]1.0 mg/dLNormal0.5 - 1.3 mg/dLFT RemisolGFR/1.73 sq M.predicted among blacks MDRD (S/P/Bld) [Vol rate/Area]mL/min/1.73 b0Fxqklz >=59mL/min/1.73 m2[facility] Chem SGFR/1.73 sq M.predicted among non-blacks MDRD (S/P/Bld) [Vol rate/Area]59 mL/min/1.73 e4Afgiji>=59mL/min/1.73 m2[facility] Chem S Glucose [Mass/Vol]154 mg/xVWfxfvv73 - 199 mg/dLFT RemisolPotassium [Moles/Vol] 3.9 mmol/LNormal3.5 - 5.3 mmol/LFTMC RemisolSodium [Moles/Vol]138 mmol/LNormal 135 - 145 mmol/LFTMC RemisolUrea nitrogen [Mass/Vol]19 mg/dLNormal5 - 21 mg/dL [facility] RemisolUrea nitrogen/Creatinine [Mass ratio]19 mg/qwFitktx89 - 20FT RemisolConsent for Treatmenton 72-35-2165Npbalcd for Treatment [id number]#1.00CD:127NoUK HealthcarePhysician Orderon 88-67-5893Echnwystl Order [id number]#1.00CD:127NormHolzer Health SystemeGFRon 55-03-0349RZF/1.73 sq M.predicted among blacks MDRD (S/P/Bld) [Vol rate/Area]mL/min/{1.73_m2}Normal>=59Veterans Health AdministrationComment on above: Order Comment: Order added by Discern Expert.Result Comment: eGFR is race adjusted. AA=.Performed By: #### [id number], [id number] #### [facility] [address], [place] [address]WOV/1.73 sq M.predicted among non-blacks MDRD (S/P/Bld) [Vol rate/Area]59 mL/min/1.73 p1Bpnmbs>=59Veterans Health AdministrationComment on above:Order Comment: Order added by Discern Expert.Result Comment: Chronic kidney disease could be indicated at eGFR's of less than 60 mL/min/1.73m2. K idney failure is indicated at less than 15 mL/min/1.73m2.Performed By: #### [id number], [id number] #### [facility] [address], [place] [address]Vitkxa Summary.on 49-07-7252Glelew Summary. CD:[id number]:[id number]+PGhlYWQ+SE3ESGRdN75voIHjrD2DD2eUBV6GZINNTQEPPG1UVT3hb QD6PTtxN5DfbuIt [file] bGxh (more content not included)...NormalVeterans Health AdministrationAuto Diffon 38-55-3052Tjsmgnhgp/100 WBC (Bld)0.6 %Normal0.0-2.0[facility] Comment on above:Order Comment: Order Added by Discern Expert.Performed By: #### [id number], [id number] #### [facility] [address] [place] [address]Qkdrygvnq/Leukocytes Auto (Bld) [Pure # fraction]0.1 E9/LNormal 0.0-0.2FUniversity Hospitals Samaritan Medical CenterComment on above:Order Comment: Order Added by Discern Expert.Performed By: #### [id number], [id number] #### [facility] [address] [place] [address]Qpigzmvphkn/100 WBC (Bld)1.4 %Normal0.0-8.0Veterans Health AdministrationComment on above:Order Comment: Order Added by Discern Expert.Performed By: #### [id number], [id number] #### [facility] [address] [place] [address] 37[address]Tkqputltqvb/Leukocytes Auto (Bld) [Pure # fraction]0.2 E9/L Normal0.0-0.5FUniversity Hospitals Samaritan Medical CenterComment on above:Order Comment: Order Added by Discern Expert.Performed By: #### [id number], [id number] #### [facility] [address] [place] [address]Jsufnzhujsn/100 WBC (Bld)35.6 %Kdnkjm02.0-50.0Veterans Health AdministrationComment on above:Order Comment: Order Added by Discern Expert. Performed By: #### [id number], [id number] #### [facility] [address] [place] [address]Hrhfmrgaemw/Leukocytes Auto (Bld) [Pure # fraction]4.2 E9/LHigh 1.0-4.0V[facility] Health AdministrationComment on above:Order Comment: Order Added by Discern Expert.Performed By: #### [id number], [id number] #### [facility] [address] [place] [address]Eyjwgntuo/100 WBC (Bld)3.0 %Low4.0-14.0V[facility] Health AdministrationComment on above:Order Comment: Order Added by Discern Expert.Performed By: #### [id number], [id number] #### [facility] [address], [place] [address]Xmgoqeefz/Leukocytes Auto (Bld) [Pure # fraction]0.4 E9/LNormal 0.2-1.0V[facility] Health AdministrationComment on above:Order Comment: Order Added by Discern Expert.Performed By: #### [id number], [id number] #### [facility] [address], [place] [address]Pnpyypmmsll/100 WBC (Bld)59.4 %Icegpj14.0-75.0Veter[facility] Health AdministrationComment on above:Order Comment: Order Added by Discern Expert. Performed By: #### [id number], [id number] #### [facility] [address] [place] [address]Zgrrfyitsuz/Leukocytes Auto (Bld) [Pure # fraction]7.0 E9/L Normal2.0-7.5FUniversity Hospitals Samaritan Medical CenterComment on above:Order Comment: Order Added by Discern Expert.Performed By: #### [id number], [id number] #### [facility] [address] [place] [address]CTXap 04-47-9982Pweui gap [Moles/Vol]17 mmol/LHigh6-16Veter[facility] Health AdministrationComment on above:Performed By: #### [id number], [id number] #### [facility] [address] [place] [address]Rlgjryd [Mass/Vol]10.1 mg/dLNormal8.9-11.1FUniversity Hospitals Samaritan Medical CenterComment on above:Performed By: #### [id number], [id number] #### [facility] [address], [place] [address]Dwqqexrq [Moles/Vol]99 mmol/BTdd285-854GhqlixVeterans Health AdministrationComment on above:Performed By: #### [id number], [id number] #### [facility] [address], [place] [address]KO6 [Moles/Vol]22 mmol/MSqqrmq04-22ZdhxlkVeterans Health Administration Comment on above:Performed By: #### [id number], [id number] #### [facility] [address], [place] [address]Jfrispffqw [Mass/Vol]1.1 mg/dLNormal0.5-1.3FUniversity Hospitals Samaritan Medical CenterComment on above:Performed By: #### [id number], [id number] #### [facility] [address], [place] [address]Hkjnanb [Mass/Vol]356 mg/hXNppk10-212UckwcmVeterans Health AdministrationComment on above:Result Comment: If this glucose result represents a fasting glucose, interpretation should refer tothe following reference range: 55-99 mg/dLPerformed By: #### [id number], [id number] #### [facility] [address] [place] [address]Yzcvmostc [Moles/Vol]4.2 mmol/LNormal3.5-5.3FUniversity Hospitals Samaritan Medical CenterComment on above:Performed By: #### [id number], [id number] #### [facility] [address] [place] [address]Kujxdy [Moles/Vol]134 mmol/BQdu297-199NbxsceVeterans Health AdministrationComment on above:Performed By: #### [id number], [id number] #### [facility] [address], [place] [address]Gpta nitrogen [Mass/Vol]18 mg/dLNormal5-21V[facility] Health AdministrationComment on above:Performed By: #### [id number], [id number] #### [facility] [address], [place] [address]Xopv nitrogen/Creatinine [Mass ratio]16 No OkeljMwtqes32-90 [facility] AdministrationComment on above:Performed By: #### [id number], [id number] #### [facility] [address], [place] [address]EFR w/ Auto Diffon 85-65-5685Fdqqnuymixr distribution width (RBC) [Ratio]13.5 %Tsbzmp67.9-14.2FUniversity Hospitals Samaritan Medical CenterComment on above: Performed By: #### [id number], [id number] #### [facility] [address] [place] [address]Eosllrcvim (Bld) [Volume fraction]46.4 %High34.0-46.0V[facility] Health AdministrationComment on above:Performed By: #### [id number], [id number] #### [facility] [address] [place] [address]Vvzqnjwhsf (Bld) [Mass/Vol]15.8 g/nDJabgoe09.0-16.0V[facility] Health AdministrationComment on above:Performed By: #### [id number], [id number] #### [facility] [address] [place] [address]VRF (RBC) [Entitic mass]30.4 paScbdnj47.0-34.0V[facility] Health AdministrationComment on above:Performed By: #### [id number], [id number] #### [facility] [address] [place] [address]UPIF (RBC) [Mass/Vol]34.1 g/sWTuqeka83.4-36.0[facility] Health AdministrationComment on above:Performed By: #### [id number], [id number] #### [facility] [address] [place] [address]GPE (RBC) [Entitic vol]89.1 uVMphfza84.0-100.0V[facility] Health AdministrationComment on above:Performed By: #### [id number], [id number] #### [facility] [address] [place] [address]25[address]Pxagfvir mean volume (Bld) [Entitic vol]9.8 fLNormal6.4-10.8 [facility] AdministrationComment on above:Performed By: #### [id number], [id number] #### [facility] [address], [place] [address]Njawztdsp (Bld) [#/Vol]252.0 E9/OEaxnlg305.0-500.0V[facility] Health AdministrationComment on above:Performed By: #### [id number], [id number] #### [facility] [address], [place] [address]WJJ (Bld) [#/Vol]5.2 E12/LNormal4.3-5.9[facility] Health AdministrationComment on above:Performed By: #### [id number], [id number] #### [facility] [address], [place] [address]ALB corrected for nucl RBC Auto (Bld) [#/Vol]11.8 E9/LHigh 4.0-11.0V[facility] Health AdministrationComment on above:Performed By: #### [id number], [id number] #### [facility] [address], [place] [address]UMGBWACAJSwnnqhy By: SYSTEM SYSTEM on 91-84-3610Zlsak gap [Moles/Vol]17 mmol/LHigh6 - 16 mEq/LFTMC RemisolCalcium [Mass/Vol]10.1 mg/dL Normal8.9 - 11.1 mg/dLFTMC RemisolChloride [Moles/Vol]99 mmol/TWlk210 - 111 mmol/LFTMC RemisolCO2 [Moles/Vol]22 mmol/KYwclmc83 - 31 mmol/LFTMC Remisol Creatinine [Mass/Vol]1.1 mg/dLNormal0.5 - 1.3 mg/dLFTMC RemisolGFR/1.73 sq M.predicted among blacks MDRD (S/P/Bld) [Vol rate/Area]mL/min/1.73 d3Qqvvop >=59mL/min/1.73 m2[facility] Chem SGFR/1.73 sq M.predicted among non-blacks MDRD (S/P/Bld) [Vol rate/Area]53 mL/min/1.73 m2Low>=59mL/min/1.73 m2[facility] Chem S Glucose [Mass/Vol]356 mg/tUYpvu35 - 199 mg/dLFTMC RemisolPotassium [Moles/Vol] 4.2 mmol/LNormal3.5 - 5.3 mmol/LFTMC RemisolSodium [Moles/Vol]134 mmol/FKwl878 - 145 mmol/LFTMC RemisolUrea nitrogen [Mass/Vol]18 mg/dLNormal5 - 21 mg/dLFTMC RemisolUrea nitrogen/Creatinine [Mass ratio]16 mg/syIidtzy32 - 20FTMC Remisol Consent for Treatmenton 26-29-9803Dgktqdq for Treatment [id number]#1.00CD:127[facility] CampusHEMATOLOGYOrdered By: SYSTEM SYSTEM on 23-90-6805Kynfpkhhg/100 WBC (Bld) 0.6 %Normal0.0 - 2.0 %[facility] HemeAutoSSBasophils/Leukocytes Auto (Bld) [Pure # fraction]0.1 E9/LNormal0.0 - 0.2 E9/LFTMC HemeAutoSSEosinophils/100 WBC (Bld)1.4 %Normal0.0 - 8.0 %[facility] HemeAutoSSEosinophils/Leukocytes Auto (Bld) [Pure # fraction]0.2 E9/LNormal0.0 - 0.5 E9/LFTMC HemeAutoSSLymphocytes/100 WBC (Bld) 35.6 %Kylvae18.0 - 50.0 %[facility] HemeAutoSSLymphocytes/Leukocytes Auto (Bld) [Pure # fraction]4.2 E9/LHigh1.0 - 4.0 E9/LFTMC HemeAutoSSMonocytes/100 WBC (Bld)3.0 % Low4.0 - 14.0 %[facility] HemeAutoSSMonocytes/Leukocytes Auto (Bld) [Pure # fraction] 0.4 E9/LNormal0.2 - 1.0 E9/LFTMC HemeAutoSSNeutrophils/100 WBC (Bld)59.4 %Normal 36.0 - 75.0 %[facility] HemeAutoSSNeutrophils/Leukocytes Auto (Bld) [Pure # fraction] 7.0 E9/LNormal2.0 - 7.5 E9/[facility] HemeAutoSSHEMATOLOGYOrdered By: Mendoza Beaver on 53-95-5868Mccojapypjt distribution width (RBC) [Ratio]13.5 %Normal 10.9 - 14.2 %[facility] HemeAutoSSHematocrit (Bld) [Volume fraction]46.4 %High34.0 - 46.0 %[facility] HemeAutoSSHemoglobin (Bld) [Mass/Vol]15.8 g/tITcjwbg78.0 - 16.0 gm/dL [facility] HemeAutoSSMCH (RBC) [Entitic mass]30.4 dvRsempv51.0 - 34.0 pgFTMC HemeAutoSSMCHC (RBC) [Mass/Vol]34.1 g/lQEhgchz74.4 - 36.0 gm/dLFTMC HemeAutoSS MCV (RBC) [Entitic vol]89.1 nMMttons49.0 - 100.0 fLFT HemeAutoSSPlatelet mean volume (Bld) [Entitic vol]9.8 fLNormal6.4 - 10.8 fLFT HemeAutoSSPlatelets (Bld) [#/Vol]252.0 E9/RGpvovy315.0 - 500.0 E9/[facility] HemeAutoSSRBC (Bld) [#/Vol] 5.2 E12/LNormal4.3 - 5.9 E12/[facility] HemeAutoSSWBC corrected for nucl RBC Auto (Bld) [#/Vol]11.8 E9/LHigh4.0 - 11.0 /[facility] HemeAutoSSPharmacy Officeon 45-47-9795Qsvgwvub [id number]#1.00CD:127 [facility] CampusPhysician Orderon 78-97-6561Thannbpaj Order [id number]#1.00CD:127NormalVeterans Health AdministrationeGFRon 01-05-5787MLE/1.73 sq M.predicted among blacks MDRD (S/P/Bld) [Vol rate/Area]mL/min/{1.73_m2}Normal>=59Veter[facility] Health AdministrationComment on above: Order Comment: Order added by Discern Expert.Result Comment: eGFR is race adjusted. AA=.Performed By: #### [id number], [id number] #### [facility] [address], [place] [address]DAP/1.73 sq M.predicted among non-blacks MDRD (S/P/Bld) [Vol rate/Area]53 mL/min/1.73 m2Low>=59V[facility] Health AdministrationComment on above: Order Comment: Order added by Discern Expert.Result Comment: Chronic kidney disease could be indicated at eGFR's of less than 60 mL/min/1.73m2. Kidney failure is indicated at less than 15 mL/min/1.73m2.Performed By: #### [id number], [id number] #### [facility] [address], [place] [address]HEV INTACTon 41-13-8592JYB, Jtarpg37 pg/hYLdmlav09-09Mbj [facility] HospitalComment on above:Performed By: #### MG, RENAL, URIC #### [facility] [address] [place] [address] Dr. Tyree BotelloHEMOGRAM AND PLATELon 70-35-0775Avdismajgg (Bld) [Volume fraction]46.5 %Ropmgv18.0-48.0The [facility] HospitalComment on above:Performed By: #### MG, RENAL, URIC #### [facility] [address] [place] [address] Dr. Tyree BotelloHemoglobin (Bld) [Mass/Vol]15.7 g/wVSiljrg38.0-16.0The [facility] HospitalComment on above:Performed By: #### MG, RENAL, URIC #### [facility] [address] [place] [address] Dr. Tyree BotelloADIRONDACK [facility] (RBC) [Entitic mass]30.0 spEmppzw27.7-34.0The [facility] HospitalComment on above:Performed By: #### MG, RENAL, URIC #### [facility] [address] [place] [address] Dr. Tyree BotelloHC (RBC) [Mass/Vol]33.8 g/uTBfmugf97.9-35.2The [facility] HospitalComment on above:Performed By: #### MG, RENAL, URIC #### [facility] [address] [place] [address] Dr. Tyree BotelloV (RBC) [Entitic vol]88.9 yUYcstgr91.0-99.0The [facility] HospitalComment on above:Performed By: #### MG, RENAL, URIC #### [facility] [address] [place] [address] Dr. Tyree BotelloPLT261 103/mtNtboyy644-613Thd [facility] on above: Performed By: #### MG, RENAL, URIC #### [facility] [address] [place] [address] Dr. Tyree BotelloRBC5.23 106/ulNormal4.20-5.40The [facility] HospitalComment on above:Performed By: #### MG, RENAL, URIC #### [facility] [address] [place] [address] Dr. Tyree BotelloWBC11.1 103/ulCritically high4.0-11.0The [facility] HospitalCommunson healthcare [facility] on above:Performed By: #### MG, RENAL, URIC #### [facility] [address] [place] [address] Dr. Tyree BotelloMAGNESIUMon 83-84-1074Wieprdasc [Mass/Vol]1.3 mg/dLCritically low 1.8-2.4The [facility] HospitalCommunson healthcare [facility] on above:Performed By: #### MG, RENAL, URIC #### [facility] [address] [place] [address] Dr. Tyree Resendiz FUNCTION PANELon 87-95-3035Rpxbsqv [Mass/Vol]3.4 g/dLNormal 3.4-5.0The [facility] HospitalComment on above:Performed By: #### MG, RENAL, URIC #### [facility] [address] [place], [place] [id number] Dr. Tyree BotelloCalcium [Mass/Vol]10.3 mg/dLCritically high8.5-10.1The [facility] HospitalComment on above:Performed By: #### MG, RENAL, URIC #### [facility] [address] [place] [address] Dr. Tyree BotelloChloride [Moles/Vol]100 mmol/NHxciqv69-716Xcp [facility] Comment on above:Performed By: #### MG, RENAL, URIC #### [facility] [address] [place] [address] Dr. Tyree BotelloCO2 [Moles/Vol]23.1 mmol/BRfqmzf07.0-32.0The [facility] Comment on above:Performed By: #### MG, RENAL, URIC #### [facility] [address] [place] [address] Dr. Tyree BotelloCreatinine [Mass/Vol]1.11 mg/dLCritically high0.55-1.02The [facility] HospitalComment on above:Performed By: #### MG, RENAL, URIC #### [facility] [address] [place] [address] Dr. Clements ChangEGFR-AF MOSOTHO>60Normal>=60The [facility] HospitalComment on above:Performed By: #### MG, RENAL, URIC #### [facility] [address] [place] [address] Dr. Clements ChangEGFR-NON AF PUQZPACV94 mL/min/1.15o1Mdpytzmred low>=60The [facility] HospitalComment on above:Performed By: #### MG, RENAL, URIC #### [facility] [address] [place] [address] Dr. Tyree BotelloGlucose [Mass/Vol]239 mg/dLCritically ivyf65-109Maq [facility] Hospitalment on above:Performed By: #### MG, RENAL, URIC #### [facility] [address] [place] [address] Dr. Tyree BotelloPhosphate [Mass/Vol]2.6 mg/dLNormal2.6-4.7The [facility] Comment on above:Performed By: #### MG, RENAL, URIC #### [facility] [address] [address] [address] Tyree BotelloPotassium [Moles/Vol]4.2 mmol/LNormal3.5-5.1The [facility] Comment on above:Performed By: #### MG, RENAL, URIC #### [facility] [address] [address] [address] Tyree BotelloSodium [Moles/Vol]137 mmol/PYiqtkw882-910Byl [facility] Comment on above:Performed By: #### MG, RENAL, URIC #### [facility] [address] [address] [address] Tyree BotelloUrea nitrogen [Mass/Vol]21.0 mg/dLCritically high7.0-18.0[facility] CenterComment on above:Performed By: #### MG, RENAL, URIC #### [facility] [address] [place] [address] Dr. Tyree Blanca RANDOM W/MICROSCOPICon 38-88-4294QVQZXJUALUVKDUMZPdbmxwdvPOMH SEENLakehealth Tripoint Medical CenterComment on above:Performed By: #### MG, RENAL, URIC #### [facility] [address] [place] [address] Dr. Tyree Colemanirubin Ql (U)NegativeNormalNEGATIVELakehealth Tripoint Medical Center Comment on above:Performed By: #### MG, RENAL, URIC #### [facility] [address] [place] [address] Dr. Tyree GuptaSEENAbnormalNONE SEENLakehealth Tripoint Medical CenterComment on above: Performed By: #### MG, RENAL, URIC #### [facility] [address] [address] [address] Tyree Coleman (U)CLEARNormalCLEARThe [facility] HospitalComment on above: Performed By: #### MG, RENAL, URIC #### [facility] [address] [place] [address] Dr. Tyree Victor (U)YELLOWNormalYELLOWLakehealth Tripoint Medical CenterComment on above: Performed By: #### MG, RENAL, URIC #### [facility] [address] [address] [address] Tyree BotelloCrystals LM Nom (Urine sed)NONE SEENNormalNONE SEENLakehealth Tripoint Medical CenterComment on above:Performed By: #### MG, RENAL, URIC #### [facility] [address] [address] [address] Clements ChangEpithelial cells LM Ql (Urine sed)FEWAbnormalNONE SEEN /RAREThe [facility] HospitalComment on above:Performed By: #### MG, RENAL, URIC #### [facility] [address] [address] [address] Tyree BotelloGlucose Ql (U)>1000AbnormalNEGATIVELakehealth Tripoint Medical CenterComment on above:Performed By: #### MG, RENAL, URIC #### [facility] [address] [address] [address] Tyree BotelloHemoglobin Ql (U)SMALLAbnormalNEGATIVEShelby Memorial Hospital on above:Performed By: #### MG, RENAL, URIC #### [facility] [address] [address] [address] Tyree BotelloHYALINE CASTRARENormalLakehealth Tripoint Medical CenterComment on above: Performed By: #### MG, RENAL, URIC #### [facility] [address] [address] [address] Tyree BotelloKetones Ql (U)NegativeNormalNEGATIVELakehealth Tripoint Medical CenterComment on above:Performed By: #### MG, RENAL, URIC #### [facility] [address] [address] [address] Tyree BotelloLEUKOCYTESNegativeNormalNEGATIVELakehealth Tripoint Medical CenterCommunson healthcare [facility] hospital on above:Performed By: #### MG, RENAL, URIC #### [facility] [address] [address] [address] Tyree BotelloMUCOUSNONE SEENNormflNONE SEENLakehealth Tripoint Medical CenterComment on above:Performed By: #### MG, RENAL, URIC #### [facility] [address] [address] [address] Tyree Mccartney Ql (U)NegativeNormalNEGATIVEThe [facility] HospitalComment on above:Performed By: #### MG, RENAL, URIC #### [facility] [address] [place] [address] Dr. Tyree BotellopH (U)5.5 [pH]Normal5-9The [facility] HospitalComment on above: Performed By: #### MG, RENAL, URIC #### [facility] [address] [place] [address] Dr. Tyree CarbajalYfxexKCG4-0Zfiraoqb5-5Zcg [facility] HospitalComment on above:Performed By: #### MG, RENAL, URIC #### [facility] [address] [place] [address] Dr. Tyree BotelloSPEC GRAVITY>=1.377Fhljsxuq0.005-<=1.025The [facility] Comment on above:Performed By: #### MG, RENAL, URIC #### [facility] [address] [place] [address] Dr. Tyree Blanca TIJIYAM084 mg/dlAbnormalNEGATIVE/ TRACEThe [facility] Comment on above:Performed By: #### MG, RENAL, URIC #### [facility] [address] [place] [address] Dr. Tyree Olmosbilinogen Qn (U)0.2 {Jennifer'U}/dLNormal0.2 - 1.0The [facility] HospitalComment on above:Performed By: #### MG, RENAL, URIC #### [facility] [address] [place] [address] Dr. Tyree BotelloWBC5-10AbnormalNONE SEENThe [facility] HospitalComment on above: Performed By: #### MG, RENAL, URIC #### [facility] [address] [place] [address] Dr. Tyree BotelloURIC ACID SERUMon 85-52-7743Yxqol [Mass/Vol]6.5 mg/dLCritically high2.6-6.0The [facility] HospitalComment on above:Performed By: #### MG, RENAL, URIC #### [facility] [address] [place] [address] Dr. Tyree Bernard PROTEIN CREAT RATIOon 93-18-6684Ilfiflp (U) [Mass/Vol] 177.8 mg/dLCritically high<=12.0The [facility] on above:Performed By: #### MG, RENAL, URIC #### [facility] [address] [place] [address] Dr. Tyree Cantu PROT CREAT RAT1.06NoOhioHealth Marion General HospitalComment on above: Performed By: #### MG, RENAL, URIC #### [facility] [address] [place] [address] Dr. Tyree Simmons UTEXL990.43 mg/cOIhljsf64.00-300.00[facility] Comment on above:Performed By: #### MG, RENAL, URIC #### [facility] [address] [place] [address] Dr. Tyree BotelloVITAMIN D 25 OHon 19-05-0642LNR D 25-OH45.5 ng/mLNormalThe [facility] HospitalComment on above:Performed By: #### MG, RENAL, URIC #### [facility] [address] [place] [address] Dr. Tyree Boogie [place]ANGES[place] BELOWMercy Health Lorain HospitalCommunson healthcare gray[facility] hospital on above: Result Comment: <20 ng/mL Vit D deficient 20 - <30 ng/mL Vit D insufficient 30 - 100 ng/mL Vit D sufficient >100 ng/mL Potential ToxicityPerformed By: #### MG, RENAL, URIC #### [facility] [address] [place] [address] Dr. Tyree Purvis AUTO DIFFon 86-87-6900WWWR #0.1 103/ulNormal0.0-0.1The [facility] HospitalComment on above:Performed By: #### MG, RENAL, URIC #### [facility] [address] [place] [address] Dr. Tyree BotelloBasophils/100 WBC (Bld)0.5 %Normal0.2-2.0The [facility] Comment on above:Performed By: #### MG, RENAL, URIC #### [facility] [address] [place] [address] Dr. Tyree Barrera #0.1 103/ulNormal0.0-0.7The [facility] HospitalComment on above: Performed By: #### MG, RENAL, URIC #### [facility] [address] [place] [address] Dr. Tyree Holmosinophils/100 WBC (Bld)1.1 %Normal0.9-7.0The [facility] Comment on above:Performed By: #### MG, RENAL, URIC #### [facility] [address] [place] [address] Dr. Tyree Holmrythrocyte distribution width (RBC) [Ratio]12.7 %Btwmnm65.0-15.0 The [facility] HospitalComment on above:Performed By: #### MG, RENAL, URIC #### [facility] [address] [place] [address] Dr. Tyree BotelloHematocrit (Bld) [Volume fraction]44.6 %Esovcp63.0-48.0The [facility] HospitalComment on above:Performed By: #### MG, RENAL, URIC #### [facility] [address] [place] [address] Dr. Tyree BotelloHemoglobin (Bld) [Mass/Vol]15.0 g/yVMwxtwu88.0-16.0The [facility] HospitalComment on above:Performed By: #### MG, RENAL, URIC #### [facility] [address] [place] [address] Dr. Tyree Esteban #0.05 10e3/ulCritically high0.00-0.03The [facility] Comment on above:Performed By: #### MG, RENAL, URIC #### [facility] [address] [place] [address] Dr. Tyree Esteban %0.4 %Normal0.0-0.5The [facility] HospitalComment on above: Performed By: #### MG, RENAL, URIC #### [facility] [address] [place] [address] Dr. Tyree Vargas #3.6 103/ulNormal1.2-3.8The [facility] HospitalComment on above:Performed By: #### MG, RENAL, URIC #### [facility] [address] [place] [address] Dr. Tyree Purvismphocytes/100 WBC (Bld)29.8 %Tjndpu12.5-60.0The [facility] HospitalComment on above:Performed By: #### MG, RENAL, URIC #### [facility] [address] [place] [address] Dr. Tyree Bowie DIFF REQNONormalThe [facility] HospitalCommunson healthcare [facility] hospital on above: Performed By: #### MG, RENAL, URIC #### [facility] [address] [place] [address] Dr. Tyree Russo (RBC) [Entitic mass]29.9 ipUronlp61.7-34.0The [facility] HospitalComment on above:Performed By: #### MG, RENAL, URIC #### [facility] [address] [place] [address] Dr. Tyree Russo (RBC) [Mass/Vol]33.6 g/yHFxbnpm39.9-35.2The [facility] on above:Performed By: #### MG, RENAL, URIC #### [facility] [address] [place] [address] Dr. Tyree Russo (RBC) [Entitic vol]88.8 lNJttebt03.0-99.0The [facility] on above:Performed By: #### MG, RENAL, URIC #### [facility] [address] [place] [address] Dr. Tyree Rm #0.6 103/ulNormal0.3-0.8The [facility] HospitalComment on above:Performed By: #### MG, RENAL, URIC #### [facility] [address] [place] [address] Dr. Tyree Bradyocytes/100 WBC (Bld)5.2 %Normal1.7-12.0[facility] Comment on above:Performed By: #### MG, RENAL, URIC #### [facility] [address] [place] [address] Dr. Tyree Dang #7.5 103/ulCritically high1.4-6.5ThTriHealth [facility] Comment on above:Performed By: #### MG, RENAL, URIC #### [facility] [address] [place] [address] Dr. Tyree Ruanoutrophils/100 WBC (Bld)63.0 %Pygxea68.0-75.0The [facility] HospitalComment on above:Performed By: #### MG, RENAL, URIC #### [facility] [address] [place] [address] Dr. Tyree Herrera mean volume (Bld) [Entitic vol]11.4 fLNormal9.5-13.5The [facility] HospitalComment on above:Performed By: #### MG, RENAL, URIC #### [facility] [address] [place] [address] Dr. Tyree BotelloPLT225 103/vcOovzff717-100Etr [facility] HospitalComment on above: Performed By: #### MG, RENAL, URIC #### [facility] [address] [place] [address] Dr. Tyree BotelloRBC5.02 106/ulNormal4.20-5.40The [facility] HospitalComment on above:Performed By: #### MG, RENAL, URIC #### [facility] [address] [place] [address] Dr. Tyree BotelloWBC12.0 103/ulCritically high4.0-11.0The [facility] HospitalComment on above:Performed By: #### MG, RENAL, URIC #### [facility] [address] [place] [address] Dr. Tyree Blanchard/VALPROICon 06-60-9176QLIOMQUM70.3 ug/wdLokawv14.0-100.0 The [facility] HospitalComment on above:Performed By: #### MG, RENAL, URIC #### [facility] [address] [address] [address] Tyree BotelloLIPID PROFILEon [id number]-HDL RATIO NORMSSelect Medical Specialty Hospital - ColumbusCommunson healthcare [facility] hospital on above:Result Comment: 3.3 - 4.4 LOW RISK 4.4 - 7.1 AVERAGE RISK 7.1 - 11.0 MODERATE RISK >11.0 HIGH RISKPerformed By: #### MG, RENAL, URIC #### [facility] [address] [address] [address] Tyree BotelloCholesterol [Mass/Vol]160 mg/dLNormal<=200[facility] Comment on above:Performed By: #### MG, RENAL, URIC #### [facility] [address] [place] [address] Dr. Tyree BotelloCholesterol in HDL [Mass/Vol]43 mg/gUBifesg46-47Avg [facility] HospitalComment on above:Performed By: #### MG, RENAL, URIC #### [facility] [address] [address] [address] Tyree BotelloCholesterol in LDL [Mass/Vol]76.0 mg/dLMercy Health Lorain HospitalCommunson healthcare grayling hospital on above:Performed By: #### MG, RENAL, URIC #### [facility] [address] [address] [address] Tyree Burnsesterlizzette.total/Cholesterol in HDL [Mass ratio]3.7 {ratio} NormalLakehealth Tripoint Medical CenterComment on above:Performed By: #### MG, RENAL, URIC #### [facility] [address] [address] [address] Tyree BotelloHDL NORMAL> or = 60 mg/dl - LOW CARDIOVASCULAR RISK <40 mg/dl - HIGH CARDIOVASCULAR RISKMercy Health Lorain HospitalCommunson healthcare [facility] hospital on above:Performed By: #### MG, RENAL, URIC #### [facility] [address] [place] [address] Dr. Tyree BotelloLDL CALC NORMALSEE [facility] HospitalComment on above:Result Comment: <100 mg/dl OPTIMAL 100 - 129 mg/dl NEAR OR ABOVE OPTIMAL 130 - 159 mg/dl BORDERLINE HIGH 160 - 189 mg/dl HIGH >190 mg/dl VERY HIGH Performed By: #### MG, RENAL, URIC #### [facility] [address] [place] [address] Dr. Tyree BotelloTriglyceride [Mass/Vol]205 mg/dLCritically high<=150The [facility] on above:Performed By: #### MG, RENAL, URIC #### [facility] [address] [place] [address] Dr. Tyree BotelloVLDL CALC41.0 mg/dLNoSelect Medical TriHealth Rehabilitation Hospitale [facility] on above: Performed By: #### MG, RENAL, URIC #### [facility] [address] [place] [address] Dr. Tyree Mcgarry PROFILEon 80-65-3435Btgzycr [Mass/Vol]3.0 g/dLCritically low3.4-5.0The [facility] on above:Performed By: #### MG, RENAL, URIC #### [facility] [address] [place] [address] Dr. Tyree BotelloAlbumin/Globulin [Mass ratio]0.8 {ratio}NormalThe [facility] on above:Performed By: #### MG, RENAL, URIC #### [facility] [address] [place] [address] Dr. Tyree Alvarado [Catalytic activity/Vol]63 U/LBhbvzj86-236Sti [facility] on above:Performed By: #### MG, RENAL, URIC #### [facility] [address] [place] [address] Dr. Tyree Duffy [Catalytic activity/Vol]49 U/NQgrpju14-13Ayr [facility] on above:Performed By: #### MG, RENAL, URIC #### [facility] [address] [place] [address] Dr. Tyree Woods [Catalytic activity/Vol]23 U/OJywplw20-43Gsv [facility] on above:Performed By: #### MG, RENAL, URIC #### [facility] [address] [address] [address] Tyree ColemanI, CONJUGATED0.1 mg/dLNormal0.0-0.2[facility] Comment on above:Performed By: #### MG, RENAL, URIC #### [facility] [address] [address] [address] Tyree BotelloBilirubin [Mass/Vol]0.4 mg/dLNormal0.2-1.0[facility] Comment on above:Performed By: #### MG, RENAL, URIC #### [facility] [address] [address] [address] Tyree BotelloGlobulin (S) [Mass/Vol]3.7 g/dLNormalThTriHealth McCullough-Hyde Memorial HospitalComment on above:Performed By: #### MG, RENAL, URIC #### [facility] [address] [address] [address] Tyree BotelloProtein [Mass/Vol]6.7 g/dLNormal6.4-8.2[facility] Comment on above:Performed By: #### MG, RENAL, URIC #### [facility] [address] [place] [address] Dr. Tyree BotelloComplete Blood Count with Auto Diffon 20-87-1444MEOJJHZ65 cells/uLNormal0-200Norttuba city regional health care corporationn [facility] HospitalComment on above:Order Comment: [facility] performed at: [employer], [employer] [facility], [address] [place] [address], [address] [place] [address], [id number], [employer]: Senthil Ramsey MD [facility] Collection Date/Time: [facility] Results Received Date/Time: [facility] Reported Date/Time: FASTING: UNKNOWNPerformed By: #### LIPD, CMP, TSH, CBCAD #### [facility] Default [address] [place], [place] [address]Dcqomsztq/100 WBC (Bld)0.9 %NormalNorthern Baptist Memorial Hospital SpecialistComment on above:Order Comment: [facility] performed at: [employer], [employer] [facility], [address] [place] [address], [address] [place] [address], [address] [place] [address], [employer]: Senthil Ramsey MD [facility] Collection Date/Time: [facility] Results Received Date/Time: [facility] Reported Date/Time: FASTING: UNKNOWNPerformed By: #### LIPD, CMP, TSH, CBCAD #### [facility] Default [address] [place], [place] [address]BBAAPJ93 cells/jCFwapmw71-693Htpgidyc [place] [employer] Comment on above:Order Comment: [facility] performed at: [employer], [employer] [facility], [address] [place] [address], [address] [place] [address], [address] [place] [address], [employer]: Senthil Ramsey MD [facility] Date/Time: [facility] Results Received Date/Time: [facility] Reported Date/Time: FASTING: UNKNOWNPerformed By: #### LIPD, CMP, TSH, CBCAD #### [facility] [address] [place], [place] [address]Qyudcphvxvu/100 WBC (Bld)0.9 %NormalAvita Health System SpecialistComment on above:Order Comment: [facility] performed at: [employer], [employer] [facility], [address] [place] [address], [address] [place] [address], [address] [place] [address], [employer]: Senthil Ramsey MD [facility] Date/Time: [facility] Results Received Date/Time: [facility] Reported Date/Time: FASTING: UNKNOWNPerformed By: #### LIPD, CMP, TSH, CBCAD #### [facility] [address] [place], [place] [address]Xuzvnxwyqti distribution width (RBC) [Ratio]13.6 %Mifldo77.0-15.0 [facility] SpecialistComment on above:Order Comment: [facility] performed at: [employer], [employer] [facility], [address] [place] [address], [address] [place] [address], [address] [place] [address], [employer]: Senthil Ramsey MD [facility] Date/Time: [facility] Results Received Date/Time: [facility] Reported Date/Time: FASTING: UNKNOWNPerformed By: #### LIPD, CMP, TSH, CBCAD #### [facility] Default [address] [place], [place] [address]Spgskwosie (Bld) [Volume fraction]48.3 %High35.0-45.0NoSt. Mary's Medical Center SpecialistComment on above:Order Comment: [facility] performed at: [employer], [employer] [facility], [address] [place] [address], [address] [place] [address], [address] [place] [address], [employer]: Senthil Ramsey MD [facility] Date/Time: [facility] Results Received Date/Time: [facility] Reported Date/Time: FASTING: UNKNOWNPerformed By: #### LIPD, CMP, TSH, CBCAD #### [facility] Default [address] [place], [place] [address]Iayksqpggj (Bld) [Mass/Vol]16.7 g/dIKczw05.7-15.5[facility] SpecialistComment on above:Order Comment: [facility] performed at: [employer], [employer] [facility], [address] [place] [address], [address] [place] [address], [address] [place] [address], [employer]: Senthil Ramsey MD [facility] Date/Time: [facility] Results Received Date/Time: [facility] Reported Date/Time: FASTING: UNKNOWNPerformed By: #### LIPD, CMP, TSH, CBCAD #### [facility] Default [address] [place], [place] [address] (Bld) [#/Vol]4.428 10*3/pYKvfe724-5176Zoqofmvy [facility] SpecialistComment on above:Order Comment: [facility] performed at: [employer], [employer] [facility], [address] [place] [address], [address] [place] [address], [address] [place] [address], [employer] Blower: Senthil Ramsey MD [facility] Collection Date/Time: [facility] Results Received Date/Time: [facility] Reported Date/Time: FASTING: UNKNOWNPerformed By: #### LIPD, CMP, TSH, CBCAD #### [facility] Default [address] [place], [place] [address]Dvwqyjkvmti/100 WBC (Bld)41.0 %NormalNoSt. Mary's Medical Center SpecialistComment on above:Order Comment: [facility] Testing performed at: [facility], [employer] [facility], [address] [place] [address], [address] [place] [address], [address] [place] [address], [employer] Blower: Senthil Ramsey MD [facility] Collection Date/Time: [facility] Results Received Date/Time: [facility] Reported Date/Time: FASTING: UNKNOWNPerformed By: #### LIPD, CMP, TSH, CBCAD #### [facility] Default [address] [place], [place] [address]MOQ (RBC) [Entitic mass]31.0 rlIjhmqq92.0-33.0NoSt. Mary's Medical Center SpecialistComment on above:Order Comment: [facility] Testing performed at: [facility], [facility], [address] [place] [address], [address] [place] [address], [address] [place] [address], [employer] Blower: Senthil Ramsey MD [facility] Collection Date/Time: [facility] Results Received Date/Time: [facility] Reported Date/Time: FASTING: UNKNOWNPerformed By: #### LIPD, CMP, TSH, CBCAD #### [facility] Default [address] [place], [place] [address]FIMY (RBC) [Mass/Vol]34.6 g/gMNokbdf64.0-36.0NoSt. Mary's Medical Center SpecialistComment on above:Order Comment: [facility] Testing performed at: [facility], [facility], [address] [place] [address], [address] [place] [address], [address] [place] [address], [employer] Blower: Senthil Ramsey MD [facility] Collection Date/Time: [facility] Results Received Date/Time: [facility] Reported Date/Time: FASTING: UNKNOWNPerformed By: #### LIPD, CMP, TSH, CBCAD #### [facility] Default [address] [place], [place] [address]DKW (RBC) [Entitic vol]89.6 dMEgquvj60.0-100.0NoSt. Mary's Medical Center SpecialistComment on above:Order Comment: [facility] Testing performed at: [employer], [facility], [address] [place] [address], [address] [place] [address], [phone], [employer] Blower: Senthil Ramsey MD [facility] Collection Date/Time: [facility] Results Received Date/Time: [facility] Reported Date/Time: FASTING: UNKNOWNPerformed By: #### LIPD, CMP, TSH, CBCAD #### [facility] Default [address] [place], [place] [address]PJPRHQA204 cells/eXFbvmay719-526Vgsikciz [place] [employer] Comment on above:Order Comment: [facility] Testing performed at: [employer], [facility], [address] [place] [address], [address] [place] [address], [phone], [employer] Blower: Senthil Ramsey MD [facility] Collection Date/Time: [facility] Results Received Date/Time: [facility] Reported Date/Time: FASTING: UNKNOWNPerformed By: #### LIPD, CMP, TSH, CBCAD #### [facility] Default [address] [place], [place] [address]Ufscjydpz/100 WBC (Bld)5.6 %NormalNoSt. Mary's Medical Center SpecialistComment on above:Order Comment: [facility] Testing performed at: [employer], [facility], [address] [facility], [address] [place] [address], [phone], [employer] Blower: Senthil Ramsey MD [facility] Collection Date/Time: [facility] Results Received Date/Time: [facility] Reported Date/Time: FASTING: UNKNOWNPerformed By: #### LIPD, CMP, TSH, CBCAD #### [facility] Default [address] [place], [place] [address]Icddypqdwzt (Bld) [#/Vol]5.573 10*3/rMMfexyf1560-1682PyfhysyyMercy Health Willard HospitalCommunson healthcare [facility] on above:Order Comment: [facility] Testing performed at: [employer], [facility], [facility], [address] [place] [address], [address] [place] [address], [employer] Blower: Senthil Ramsey MD [facility] Collection Date/Time: [facility] Results Received Date/Time: [facility] Reported Date/Time: FASTING: UNKNOWNPerformed By: #### LIPD, CMP, TSH, CBCAD #### [facility] Default [address] [place], [place] [address]Ceyhzveucok/100 WBC (Bld)51.6 %NormalAvita Health System SpecialistComment on above:Order Comment: [facility] Testing performed at: [facility], [address] [place] [address], [address] [place] [address], [address] [place] [address], [employer] Blower: Senthil Ramsey MD [facility] Collection Date/Time: [facility] Results Received Date/Time: [facility] Reported Date/Time: FASTING: UNKNOWNPerformed By: #### LIPD, CMP, TSH, CBCAD #### [facility] Default [address] [place], [place] [address]Rxubpkon mean volume (Bld) [Entitic vol]11.4 fLNormal7.5-12.5 [facility] HospitalCommunson healthcare gray[facility] on above:Order Comment: [facility] Testing performed at: [facility], [address] [place] [address], [address] [place] [address], [address] [place] [address], [employer] Blower: Senthil Ramsey MD [facility] Collection Date/Time: [facility] Results Received Date/Time: [id number] [facility] Reported Date/Time: FASTING: UNKNOWNPerformed By: #### LIPD, CMP, TSH, CBCAD #### [facility] Default [address] [place], [place] [address]Rrlxymulv (Bld) [#/Vol]239 10*3/yXYefxap599-483Bbswckmt [place] [facility] SpecialistComment on above:Order Comment: [facility] Testing performed at: [employer], [facility], [address] , [address] [place] [address], [address] [place] [address], [employer] Blower: Senthil Ramsey MD [facility] Collection Date/Time: [facility] Results Received Date/Time: [facility] Reported Date/Time: FASTING: UNKNOWNPerformed By: #### LIPD, CMP, TSH, CBCAD #### [facility] Default [address] [place], [place] [address]TCA (Bld) [#/Vol]5.39 10*6/uLHigh3.80-5.10NoSt. Mary's Medical Center SpecialistComment on above:Order Comment: [facility] Testing performed at: [employer], [facility], [address] , [address] [place] [address], [address] [place] [address], [employer] Blower: Senthil Ramsey MD [facility] Collection Date/Time: [facility] Results Received Date/Time: [facility] Reported Date/Time: FASTING: UNKNOWNPerformed By: #### LIPD, CMP, TSH, CBCAD #### [facility] Default [address] [place], [place] [address]ZQS (Bld) [#/Vol]10.8 10*3/uLNormal3.8-10.8NoSt. Mary's Medical Center SpecialistComment on above:Order Comment: [facility] Testing performed at: [employer], [facility], [address] , [address] [place] [address], [address] [place] [address], [employer] Blower: Senthil Ramsey MD [facility] Collection Date/Time: [facility] Results Received Date/Time: [facility] Reported Date/Time: FASTING: UNKNOWNPerformed By: #### LIPD, CMP, TSH, CBCAD #### [facility] Default [address] [place], [place] [address]Mydpjlircwxxf Metabolic Panelon 81-56-0515Qeywtbr [Mass/Vol]4.2 g/dLNormal3.6-5.1[facility] SpecialistComment on above:Order Comment: [facility] Testing performed at: [employer], [facility], [address] [place] [address], [address] [place] [address], [address] [place] [address], [employer] Blower: Senthil Ramsey MD [facility] Collection Date/Time: [facility] Results Received Date/Time: [facility] Reported Date/Time: FASTING: UNKNOWNPerformed By: #### LIPD, CMP, TSH, CBCAD #### [facility] Default [address] [place], [place] [address]Qzqvjoo/Globulin [Mass ratio]1.4 {ratio}Normal1.0-2.5NoSt. Mary's Medical Center SpecialistComment on above:Order Comment: [facility] Testing performed at: [facility], [address] [place] [address], [address] [place] [address], [employer] Blower: Senthil Ramsey MD [facility] Collection Date/Time: [facility] Results Received Date/Time: [facility] Reported Date/Time: FASTING: UNKNOWNPerformed By: #### LIPD, CMP, TSH, CBCAD #### [facility] Default [address] [place], [place] [address]WNU [Catalytic activity/Vol]65 U/VYwzxqo00-802Gbelhvkc [place] [facility] SpecialistComment on above:Order Comment: [facility] Testing performed at: [facility], [address] [place] [address], [address] [place] [address], [address] [place] [address], [employer] Blower: Senthil Ramsey MD [facility] Collection Date/Time: [facility] Results Received Date/Time: [facility] Reported Date/Time: FASTING: UNKNOWNPerformed By: #### LIPD, CMP, TSH, CBCAD #### [facility] Default [address] [place], [place] [address]UGI [Catalytic activity/Vol]30 U/LHigh6-29NoSt. Mary's Medical Center SpecialistComment on above:Order Comment: [facility] Testing performed at: [employer], [facility], [address] [place] [address], [address] [place] [address], [address] [place] [address], [employer] Blower: Senthil Ramsey MD [facility] Collection Date/Time: [facility] Results Received Date/Time: [facility] Reported Date/Time: FASTING: UNKNOWNPerformed By: #### LIPD, CMP, TSH, CBCAD #### [facility] Default [address] [place], [place] [address]Zbdju gap [Moles/Vol]20 mmol/DOrzvnn27-61Menjobkx [place] [facility] SpecialistComment on above:Order Comment: [facility] Testing performed at: [employer], [facility], [address] [place] [address], [address] [place] [address], [address] [place] [address], [employer] Blower: Senthil Ramsey MD [facility] Collection Date/Time: [facility] Results Received Date/Time: [facility] Reported Date/Time: FASTING: UNKNOWNResult Comment: Effective 03/16/2019 reference range changed. Performed By: #### LIPD, CMP, TSH, CBCAD #### [facility] Default [address] [place], [place] [address]MQN [Catalytic activity/Vol]15 U/MNjgdox71-25Vumapsqu [place] [facility] SpecialistComment on above:Order Comment: [facility] Testing performed at: [employer], [facility], [address] [place] [address], [address] [place] [address], [address] [place] [address], [employer] Blower: Senthil Ramsey MD [facility] Collection Date/Time: [facility] Results Received Date/Time: [facility] Reported Date/Time: FASTING: UNKNOWNPerformed By: #### LIPD, CMP, TSH, CBCAD #### [facility] Default [address] [place], [place] [address]Ppfxoguhz [Mass/Vol]0.4 mg/dLNormal0.2-1.2NSt. Mary's Medical Center SpecialistComment on above:Order Comment: [facility] Testing performed at: [employer], [facility], [address] [place] [address], [address] [place] [address], [address] [place] [address], [employer] Blower: eSnthil Ramsey MD [facility] Collection Date/Time: [facility] Results Received Date/Time: [facility] Reported Date/Time: FASTING: UNKNOWNPerformed By: #### LIPD, CMP, TSH, CBCAD #### [facility] Default [address] [place], [place] [address]JMQ/CREA24 NOT APPLICABLENormal6-NoGrand Lake Joint Township District Memorial HospitalComment on above:Order Comment: [facility] Testing performed at: [employer], [facility], [address] [place] [address], [address] [place] [address], [address] [place] [address], [employer] Blower: Senthil Ramsey MD [facility] Collection Date/Time: [facility] Results Received Date/Time: [facility] Reported Date/Time: FASTING: UNKNOWNPerformed By: #### LIPD, CMP, TSH, CBCAD #### [facility] Default [address] [place], [place] [address]Osruivy [Mass/Vol]10.2 mg/dLNormal8.6-10.2NSt. Mary's Medical Center SpecialistComment on above:Order Comment: [facility] Testing performed at: [employer], [facility], [address] [place] [address], [address] [place] [address], [address] [place] [address], [employer] Blower: Senthil Ramsey MD [facility] Collection Date/Time: [facility] Results Received Date/Time: [facility] Reported Date/Time: FASTING: UNKNOWNPerformed By: #### LIPD, CMP, TSH, CBCAD #### [facility] Default [address] [facility] [place] [address]Etpgeyyf [Moles/Vol]103 mmol/EJfdkye19-271Zomtpjii [place] [facility] SpecialistComment on above:Order Comment: [facility] Testing performed at: [facility], [facility], [address] [place] [address], [address] [place] [address], [address] [place] [address], [employer] Blower: Senthil Ramsey MD [facility] Collection Date/Time: [facility] Results Received Date/Time: [facility] Reported Date/Time: FASTING: UNKNOWNPerformed By: #### LIPD, CMP, TSH, CBCAD #### [facility] Default [address] [place], [place] [address]WH9 [Moles/Vol]22 mmol/JMfoidu73-56Cbbfopvh [place] [facility] SpecialistComment on above:Order Comment: [facility] Testing performed at: [facility], [facility], [address] [place] [address], [address] [place] [address], [address] [place] [address], [employer] Blower: Senthil Ramsey MD [facility] Collection Date/Time: [facility] Results Received Date/Time: [facility] Reported Date/Time: FASTING: UNKNOWNPerformed By: #### LIPD, CMP, TSH, CBCAD #### [facility] Default [address] [place], [place] [address]Fdgpbveark [Mass/Vol]0.75 mg/dLNormal0.50-1.10NoSt. Mary's Medical Center SpecialistComment on above:Order Comment: [facility] Testing performed at: [employer], [facility], [address] [place] [address], [address] [place] [address], [address] [place] [address], [employer] Blower: Senthil Ramsey MD [facility] Collection Date/Time: [facility] Results Received Date/Time: [facility] Reported Date/Time: FASTING: UNKNOWNPerformed By: #### LIPD, CMP, TSH, CBCAD #### [facility] Default [address] [place], [place] [address]yOTGJM (Quest)108 mL/min/1.09w5Isrwqz> OR = 60[facility] SpecialistComment on above:Order Comment: [facility] Testing performed at: [employer], [facility], [address] [place] [address], [address] [place] [address], [address] [place] [address], [employer] Blower: Senthil Ramsey MD [facility] Collection Date/Time: [facility] Results Received Date/Time: [facility] Reported Date/Time: FASTING: UNKNOWNPerformed By: #### LIPD, CMP, TSH, CBCAD #### [facility] Default [address] [place], [place] [address]eOPTRGU (Quest)94 mL/min/1.90z3Hkqfxz> OR = 60[facility] corporationn [facility] SpecialistComment on above:Order Comment: [facility] Testing performed at: [employer], [facility], [address] [place] [address], [address] [place] [address], [address] [place] [address], [employer] Blower: Senthil Ramsey MD [facility] Collection Date/Time: [facility] Results Received Date/Time: [facility] Reported Date/Time: FASTING: UNKNOWNPerformed By: #### LIPD, CMP, TSH, CBCAD #### [facility] Default [address] [place], [place] [address]Gbssmnef (S) [Mass/Vol]3.0 g/dLNormal1.9-3.7Norttuba city regional health care corporationn [facility] SpecialistComment on above:Order Comment: [facility] Testing performed at: [facility], [address] [place] [address], [address] [place] [address], [address] [place] [address], [employer] Blower: Senthil Ramsey MD [facility] Collection Date/Time: [facility] Results Received Date/Time: [facility] Reported Date/Time: FASTING: UNKNOWNPerformed By: #### LIPD, CMP, TSH, CBCAD #### [facility] Default [address] [place], [place] [address]Brwynld [Mass/Vol]132 mg/bTYjqt29-19Qklrvvqe [place] [facility] SpecialistComment on above:Order Comment: [facility] Testing performed at: [employer], [facility], [address] [place] [address], [address] [place] [address], [address] [place] [address], [employer] Blower: Senthil Ramsey MD [facility] Collection Date/Time: [facility] Results Received Date/Time: [facility] Reported Date/Time: FASTING: UNKNOWNResult Comment: Fasting reference interval For someone without known diabetes, a glucose value >125 mg/dL indicates that they may have diabetes and this should be confirmed with a follow-up test.Performed By: #### LIPD, CMP, TSH, CBCAD #### [facility] Default [address] [place], [place] [address]Sdwkxzinx [Moles/Vol]3.9 mmol/LNormal3.5-5.3NoGrand Lake Joint Township District Memorial HospitalComment on above:Order Comment: [facility] Testing performed at: [employer], [facility], [address] [facility], [address] [place] [address], [address] [place] [address], [employer] Blower: Senthil Ramsey MD [facility] Collection Date/Time: [facility] Results Received Date/Time: [facility] Reported Date/Time: FASTING: UNKNOWNPerformed By: #### LIPD, CMP, TSH, CBCAD #### [facility] Default [address] [place], [place] [address]Rhsyhie [Mass/Vol]7.2 g/dLNormal6.1-8.1NWayne HealthCare Main CampusComment on above:Order Comment: [facility] Testing performed at: [employer], [facility], [address] [facility], [address] [place] [address], [phone], [employer]lower: Senthil Ramsey MD [facility] Collection Date/Time: [facility] Results Received Date/Time: [facility] Reported Date/Time: FASTING: UNKNOWNPerformed By: #### LIPD, CMP, TSH, CBCAD #### [facility] Default [address] [place], [place] [address]Cyoiyw [Moles/Vol]141 mmol/TGcnyuh886-807VcczskzmGrand Lake Joint Township District Memorial HospitalCommunson healthcare [facility] on above:Order Comment: [facility] Testing performed at: [employer], [facility], [address] [place] [address], [address] [place] [address], [address] [place] [address], [employer]lower: Senthil Ramsey MD [facility] Collection Date/Time: [facility] Results Received Date/Time: [facility] Reported Date/Time: FASTING: UNKNOWNPerformed By: #### LIPD, CMP, TSH, CBCAD #### [facility] Default [address] [place], [place] [address]Jvwq nitrogen [Mass/Vol]18 mg/dLNormal7-25[facility] HospitalCommunson healthcare [facility] hospital on above:Order Comment: [facility] Testing performed at: [employer], [facility], [address] [place] [address], [address] [place] [address], [address] [place] [address], [employer]lower: Senthil Ramsey MD [facility] Collection Date/Time: [facility] Results Received Date/Time: [facility] Reported Date/Time: FASTING: UNKNOWNPerformed By: #### LIPD, CMP, TSH, CBCAD #### [facility] Default [address] [place], [place] [address]Oqjjc Panelon 88-13-6325Hwthbldfory [Mass/Vol]306 mg/dLHigh<200 [facility] HospitalCommunson healthcare [facility] on above:Order Comment: [facility] Testing performed at: [facility], [address] [place] [address], [address] [place] [address], [address] [place] [address], [employer] Blower: Senthil Ramsey MD [facility] Collection Date/Time: [facility] Results Received Date/Time: [facility] Reported Date/Time: FASTING: UNKNOWNPerformed By: #### LIPD, CMP, TSH, CBCAD #### [facility] Default [address] [place], [place] [address]Vuaiiuizctx in HDL [Mass/Vol]49 mg/dLLow> OR = 50[facility] Willard HospitalComment on above:Order Comment: [facility] Testing performed at: [employer], [facility], [address] [facility], [address] [place] [address], [address] [place] [address], [employer] Blower: Senthil Ramsey MD [facility] Collection Date/Time: [facility] Results Received Date/Time: [facility] Reported Date/Time: FASTING: UNKNOWNPerformed By: #### LIPD, CMP, TSH, CBCAD #### [facility] Default [address] [place], [place] [address]LAGJEMM NOTENormalMercy Health Willard HospitalComment on above:Order Comment: [facility] Testing performed at: [employer], [facility], [address] [facility], [address] [place] [address], [address] [place] [address], [employer]: Senthil Ramsey MD [facility] Collection Date/Time: [facility] Results Received Date/Time: [facility] Reported Date/Time: FASTING: UNKNOWNResult Comment: LDL cholesterol not calculated. Triglyceride levels [...] LDL-C. Nabil RICO et al. CHRISTIN. 2013;310(19): 4047-1315 (http://[email or web address] Bidamon.eOriginal/faq/HCW229)Performed By: #### LIPD, CMP, TSH, CBCAD #### [facility] Default [address] [place], [place] [address]GLX HDL FJANCYOIPBT256 mg/dL (calc)High<130[facility] HospitalCommunson healthcare [facility] hospital on above:Order Comment: [facility] Testing performed at: [employer], [facility], [address] [facility], [address] [place] [address], [phone], [employer]: Senthil Ramsey MD [facility] Collection Date/Time: [facility] Results Received Date/Time: [facility] Reported Date/Time: FASTING: UNKNOWNResult Comment: Non-HDL level > or = 220 is very high and may indicate genetic familial hypercholesterolemia (FH). Clinical assessment and measurement of blood lipid levels should be considered for all first-degree relatives of patients with an FH diagnosis. For patients with diabetes plus 1 major ASCVD risk factor, treating to a non-HDL-C goal of <100 mg/dL (LDL-C of <70 mg/dL) is considered a therapeutic option.Performed By: #### LIPD, CMP, TSH, CBCAD #### [facility] Default [address] [place], [place] [address]Kzwcycscguej [Mass/Vol]403 mg/dLHigh<150NoGrand Lake Joint Township District Memorial HospitalComment on above:Order Comment: [facility] Testing performed at: [facility], [address] [place] [address], [address] [place] [address], [address] [place] [address], [employer]lower: Senthil Ramsey MD [facility] Collection Date/Time: [facility] Results Received Date/Time: [facility] Reported Date/Time: FASTING: UNKNOWNResult Comment: If a non-fasting specimen was collected, consider repeat triglyceride testing on a fasting specimen if clinically indicated. Leonie et al. J. of Clin. Lipidol. 2015;9:129-169.Performed By: #### LIPD, CMP, TSH, CBCAD #### [facility] Default [address] [place], [place] [address]RNOzt 38-76-3224UJS Qn0.95 m[IU]/LNormalNoSt. [facility] SpecialistComment on above:Order Comment: [facility] Testing performed at: [facility], [address] [place] [address], [address] [place] [address], [address] [place] [address], [employer]lower: Senthil Ramsey MD [facility] Collection Date/Time: [facility] Results Received Date/Time: [facility] Reported Date/Time: FASTING: UNKNOWNResult Comment: Reference Range > or = 20 Years 0.40-4.50 Ranges First trimester 0.26-2.66 Second trimester 0.55-2.73 Third trimester 0.43-2.91Performed By: #### LIPD, CMP, TSH, CBCAD #### [facility] Default [address] [place], [place] [address]JA Spine Lumbar Complete w/Flex AND Baylis 12-03-2574DV Spine Lumbar Complete w/Flex AND ExtFINDINGS: L4-S1 pedicle screw fusion hardware, intervertebral disc [...] and signed by Rich Soriano on 05/26/2021 0756NormalNorthern [facility] SpecialistLaboratory - Hematology and Cell countson 07-22-2020 Nucleated RBC/100 WBC (Bld) [Ratio]0.2 %0-0.5FMiddletown Hospital Vital Signs Date TimeVital SignValuePerforming WzlwsmdrbUaypdgws45-08-1141 13:20-0400Body .6 Kim Manley MD Work Phone: noMercy Hospital [phone] 13:20-0400Body mass index (BMI) [Ratio]34.33 kg/l3UlobwDanii Manley MD Work Phone: noMercy Hospital JoplinYlvzduzhti20-42-2465 13:20-0400Body .72 kgDanii Manley MD Work Phone: noMercy Hospital JoplinHatlrivmkc01-97-0753 13:20-0400Diastolic blood gvivozxo49 mm[Hg]Danii Manley MD Work Phone: noMercy Hospital JoplinKnlzzzgdfa58-07-0945 13:20-0400Heart rate77 /min Danii Manley MD Work Phone: NOMercy Hospital JoplinVnolqvcgug17-88-4738 13:20-0400Respiratory rate16 /minDanii Manley MD Work Phone: NOMercy Hospital JoplinFdyabchuik71-93-1402 13:20-7983VdS0% (BldA) [Mass fraction]98 %Danii Manley MD Work Phone: NOMercy [facility] JoplinWdnydljdbi30-75-5135 13:20-0400Systolic blood ckfqqzod401 mm[Hg]Danii Manley MD Work Phone: NOMercy Hospital JoplinNepanvqdjj62-02-1750 14:28-0400Body jewyhd422.6 cmAllison Petznick DO Work Phone: NOMercy [facility] JoplinVyzefreomg93-50-2581 14:28-0400Body mass index (BMI) [Ratio]35.19 kg/m0Pegsjtk Petznick DO Work Phone: NOMercy [facility] JoplinWskbxmmmvu48-95-6939 14:28-0400Body temperature 98.71 [degF]Laverne Petznick DO Work Phone: no[facility]oplinZiheydspqq97-18-0722 14:28-0400Body .99 kgAllison Petznick DO Work Phone: noMer[facility]oplinDvehcndtlz19-24-1880 14:28-0400Diastolic blood hocplthu77 mm[Hg]Laverne Petznick DO Work Phone: no[facility]oplinYvbzezwplo85-05-6543 14:28-0400Heart rate87 /min Laverne Petznick DO Work Phone: noMer[facility] JoplinFnvmsfvaof08-46-1992 14:28-5455AvD3% (BldA) [Mass fraction]97 %Laverne Petznick DO Work Phone: [place] [address]Rrrkhrudmm53-31-7699 14:28-0400Systolic blood juautucr417 mm[Hg]Laverne Petznick DO Work Phone: [place] [address]Dfquodudyn20-20-4319 14:40-0400Diastolic blood nansekji12 mm[Hg]Magalie LESTER Work Phone: [facility]09-09-2025 14:40-0400Heart rate 99 /minMatthew Nijuan PA Work Phone: [facility]09-09-2025 14:40-0400 Respiratory rate18 /minMatthew Nijuan PA Work Phone: [facility]09-09-2025 14:40-1322ZfC1% (BldA) [Mass fraction]97 %Magalie Green PA Work Phone: [facility]09-09-2025 14:40-0400Systolic blood shuayujh216 mm[Hg]Magalie Green PA Work Phone: [facility]09-04-2025 14:55-0400Body jnotae326.6 cmEliazar Filiberto DPM Work Phone: [facility] CenterGgrquttobl03-28-8458 14:55-0400Body mass index (BMI) [Ratio]34.84 kg/d2Seyjmuhl Filiberto DPM Work Phone: [facility] CenterQrjvjmdqeo95-57-8699 14:55-0400Body ntyosa32.08 kgMindajael Pires DPM Work Phone: [facility] CenterFrahslosrz11-13-3155 14:55-0400Respiratory rate18 /minEliazar Filiberto DPM Work Phone: [facility] CenterOodopiolas22-16-2003 13:48-0400Diastolic blood dazgbbwg56 mm[Hg][facility] HospitalGjxwslvgvj75-25-9917 13:48-0400Systolic blood fjfknxci024 mm[Hg][facility]-31-2025 14:10-0400 Diastolic blood kdjdrqjy19 mm[Hg]Magalie Green PA Work Phone: [facility]07-31-2025 14:10-0400Heart rate 95 /minMatthew Jd PA Work Phone: [facility]07-31-2025 14:10-0400 Respiratory rate18 /minMatthew Nienberg PA Work Phone: [facility]07-31-2025 14:10-6153LtJ4% (BldA) [Mass fraction]97 %Magalie Green PA Work Phone: [facility]07-31-2025 14:10-0400Systolic blood xxuqqwgp617 mm[Hg]Magalie Green PA Work Phone: [facility]07-10-2025 08:01-0400Diastolic blood ixwowmmi141 mm[Hg]Magalie Sequeiraenberg PA Work Phone: [facility]07-10-2025 08:01-0400Heart rate 105 /minMatthew Nienberg PA Work Phone: [facility]07-10-2025 08:01-0400 Respiratory rate18 /minMatthew Nienberg PA Work Phone: [facility]07-10-2025 08:01-4509EhS0% (BldA) [Mass fraction]99 %Magalie Green PA Work Phone: [facility]07-10-2025 08:01-0400Systolic blood nruvclov108 mm[Hg]Magalie Fabbyenberg PA Work Phone: [facility]07-02-2025 13:00-0400Body eihqwi923.6 cmKala Lloyd MD Work Phone: [facility] CenterYfljcimrzb00-30-7651 13:00-0400Body mass index (BMI) [Ratio]34.91 kg/m2Kala Lloyd MD Work Phone: [facility] CenterAxvpzeqhth20-58-2245 13:00-0400Body qrugsm36.26 kgKala Lloyd MD Work Phone: [facility] CenterGmjodhopos76-96-5317 13:00-0400Diastolic blood fgloyfig98 mm[Hg]Kala Lloyd MD Work Phone: [facility] CenterUhdxwxocxq92-68-6407 13:00-0400Heart lnsf523 /min Kala Lloyd MD Work Phone: [facility] CenterToaaetmnkm22-26-6782 13:00-0400Respiratory rate18 /minKala Lloyd MD Work Phone: [facility] CenterOaxxktosue07-64-3069 13:00-8344AeL4% (BldA) [Mass fraction]97 %Kala Lloyd MD Work Phone: [facility] CenterZyvftvqfat53-33-4162 13:00-0400Systolic blood vnuvshxs747 mm[Hg]Kala Lloyd MD Work Phone: [facility] CenterQnwrxwtbwz69-13-5852 14:26-0400Body .6 cmTwinleola Pires DPM Work Phone: [facility] CenterHrzizhrikt55-64-4258 14:26-0400Body mass index (BMI) [Ratio]35.36 kg/w5Ocqpjuro Brown DPM Work Phone: [facility] CenterEemwgbswtc66-00-5838 14:26-0400Body ifnlrv51.44 kgEliazar Pires DPM Work Phone: [facility] CenterNtfnwjkvmd34-78-7265 14:26-0400Respiratory rate18 /minEliazar Pires DPM Work Phone: [facility] CenterClvrjonvfg88-06-2818 13:18-0400Body wjutmz836.6 cmAllison Petznick DO Work Phone: noMer[facility]oplinEgddlkuort05-39-7913 13:18-0400Body mass index (BMI) [Ratio]35.36 kg/s6Menryvo Petznick DO Work Phone: noMer[facility]linYagajhspwf40-47-4964 13:18-0400Body temperature 98.1 [degF]Laverne Petznick DO Work Phone: noMer[facility]linCahovrrnug66-03-8265 13:18-0400Body geacar66.44 kgAllison Petznick DO Work Phone: no[facility]linRuoejffhsi47-07-3170 13:18-0400Diastolic blood toqsovcu65 mm[Hg]Laverne Petznick DO Work Phone: no[facility]linUncblakcjs08-39-5340 13:18-0400Heart rate89 /min Laverne Manzanoick DO Work Phone: no[facility]linTxpuukqlbw14-25-4065 13:18-5848ZqM3% (BldA) [Mass fraction]96 %Laverne Manzanoick DO Work Phone: noMer[facility]linYajphdxoec13-09-7414 13:18-0400Systolic blood lgorryjv593 mm[Hg]Laverne Manzanoick DO Work Phone: no[facility]linOcgvjxncxp88-20-7561 09:00-0400Body mass index (BMI) [Ratio]34.33 kg/u2FrrtoekMagalie LESTER Work Phone: [facility]06-19-2025 09:00-0400Body kyeeyd76.72 kgMattez LESTER Work Phone: [facility]06-19-2025 09:00-0400Diastolic blood nbzicilg02 mm[Hg]Magalie LESTER Work Phone: [facility]06-19-2025 09:00-0400Heart rate 87 /minMattez LESTER Work Phone: [facility]06-19-2025 09:00-0400 Respiratory rate16 /minMattez LESTER Work Phone: [facility]06-19-2025 09:00-8243VdG1% (BldA) [Mass fraction]98 %Magalie LESTER Work Phone: [facility]06-19-2025 09:00-0400Systolic blood mm[Hg]Magalie LESTER Work Phone: [facility]05-22-2025 13:59-0400Body yoqxet160.6 cmKala Lloyd MD Work Phone: [facility] CenterEkazeskksc58-16-1520 13:59-0400Body mass index (BMI) [Ratio]35.46 kg/m2Kala Lloyd MD Work Phone: [facility] CenterHmpoxiyjjw27-44-9517 13:59-0400Body tondmj64.71 kgKala Lloyd MD Work Phone: [facility] CenterZnanlcqfik18-34-5463 13:59-0400Diastolic blood xmdfnrav26 mm[Hg]Kala Lloyd MD Work Phone: [facility] CenterPbayfpgwvl51-93-8728 13:59-0400Heart rate79 /min Kala Lloyd MD Work Phone: 1(311)356[facility]02[facility] CenterXwfneqlceu35-94-5620 13:59-0400Respiratory rate18 /minKala Lloyd MD Work Phone: 1([phone]85[facility] CenterKgmzbpfcpp19-08-0232 13:59-4373DiU3% (BldA) [Mass fraction]97 %Kala Lloyd MD Work Phone: [facility] CenterFnqohualyt43-64-2065 13:59-0400Systolic blood iqduanji938 mm[Hg]Kala Lloyd MD Work Phone: [facility] CenterBitymficyr27-46-5477 13:43-0400Diastolic blood nwgreman359 mm[Hg]Magalie LESTER Work Phone: [facility] MemorialComment on above:patient has no symptoms. Reports she is in pain and under stress -had no sleep and has running backand forth to [facility] due to sisters bnosmtv24-04-2678 13:43-0400 Heart rate83 /minMatthew Jd PA Work Phone: [facility]05-01-2025 13:43-0400 Respiratory rate16 /minMatthew Jd PA Work Phone: [facility]05-01-2025 13:43-5064QhJ9% (BldA) [Mass fraction]99 %Magalie LESTER Work Phone: [facility]05-01-2025 13:43-0400Systolic blood uifaporw656 mm[Hg]Magalie LESTER Work Phone: [facility] SystemComment on above:patient has no symptoms. Reports she is in pain and under stress -had no sleep and has running backand forth to [facility] due to sisters irruyam48-79-3210 13:28-0400 Body wkkcen980.6 Kim Manley MD Work Phone: [phone] CenterLaqemqcsza47-98-6889 13:28-0400Body mass index (BMI) [Ratio]34.16 kg/g8MzmbpDanii Manley MD Work Phone: 1(158)425[place] [address]-21-2025 13:28-0400Body wsraea63.27 kgDanii Manley MD Work Phone: 1(923)[address] [place] [address]-21-2025 13:28-0400Diastolic blood nburswpv23 mm[Hg]Danii Manley MD Work Phone: 1(009)[address]04-21-2025 13:28-0400Heart rate98 /min Danii Manley MD Work Phone: 1(232)608[place] [address]-21-2025 13:28-0400Respiratory rate18 /minDanii Manley MD Work Phone: 1(290)259[place] [address]-21-2025 13:28-7328WaZ9% (BldA) [Mass fraction]97 %Danii Manley MD Work Phone: 1(960)419[place] [address]-21-2025 13:28-0400Systolic blood szditgny388 mm[Hg]Danii Manley MD Work Phone: 1([phone] [place], [place] [address]Vlrsqgxlwq41-73-9942 16:25-0400Body gdswje754.1 cmEliazar Pires DPM Work Phone: [place] [address]Nezoxojscd71-81-7319 16:25-0400Body mass index (BMI) [Ratio]33.61 kg/q1DvahhjaoEliazar Pires DPM Work Phone: [place] [address]Xksonfddgd24-13-3881 16:25-0400Body dgpnoq79.63 kgEliazar Pires DPM Work Phone: [facility] CenterStvdlibcod92-10-5192 16:25-0400Respiratory rate18 /minNicalejandrojael Filiberto DPM Work Phone: [facility] CenterMuewwuhmxm46-12-8202 14:46-0400Diastolic blood alzgvfmq03 mm[Hg][facility]04-15-2025 14:46-0400Systolic blood twbkebxh557 mm[Hg][facility]04-10-2025 13:53-0400 Body .1 cmLenoch Scott [employer] Work Phone: 1(273)[address]04-10-2025 13:53-0400 Body mass index (BMI) [Ratio]33.7 kg/w3HupdiKaylie Chavez [employer] Work Phone: 1(517)[address]04-10-2025 13:53-0400 Body hjfoxsgovff94.9 [degF]Kaylie Chavez [employer] Work Phone: 1(863)[address] [place], [place] 8387304-10-2025 13:53-0400 Body ufcxty60.13 kgLumariah Chavez [employer] Work Phone: 1(581)[address] [place], [place] 8387304-10-2025 13:53-0400 Diastolic blood ortqwvak09 mm[Hg]Kaylie Chavez [employer] Work Phone: 1(228)[address]04-10-2025 13:53-0400 Heart rate86 /minKaylie Chavez [employer] Work Phone: 1(417)[address] [place], [place] 8387304-10-2025 13:53-0400 Respiratory rate16 /minKaylie Chavez [employer] Work Phone: 1(993)[address] [place], [place] 8387304-10-2025 13:53-0400 SaO2% (BldA) [Mass fraction]98 %Kaylie Chavez [employer] Work Phone: 1(348)[address] [place], [place] 8387304-10-2025 13:53-0400 Systolic blood oippnqsd070 mm[Hg]Kayliemariah Chavez [employer] Work Phone: 1(567)[address] [place], [place] 8387303-11-2025 15:25-0400 Body .1 cmAllabdirahman Petznick DO Work Phone: [facility] CenterPaatlrdggy72-84-8385 15:25-0400Body mass index (BMI) [Ratio]33.61 kg/n4Wpjonpt Petznick DO Work Phone: 1(857)464-[address] [place], [place] [address]Gakibzmokt72-62-4152 15:25-0400Body temperature 98.71 [degF]Laverne Petznick DO Work Phone: 1(531)[facility] [place], [place] [address]Aezugiyalr95-94-9643 15:25-0400Body .63 kgAllabdirahman Petznick DO Work Phone: 1(691)[facility] [place], [place] [address]Wcgvkexgri61-61-4618 15:25-0400Diastolic blood qlijkqlq80 mm[Hg]Laverne Petznick DO Work Phone: 1(002)[facility] [place], [place] [address]Kfdyninkes03-33-0448 15:25-0400Heart rate83 /min Laverne Petznick DO Work Phone: 1(003)[facility] [place], [place] [address]Qsfahmnkkz87-84-5542 15:25-9923ErB3% (BldA) [Mass fraction]96 %Laverne Petznick DO Work Phone: 1(643)827-[address] [place], [place] [address]Dhqcmhwvaw85-45-2019 15:25-0400Systolic blood fsmefyfu905 mm[Hg]Laverne Petznick DO Work Phone: [facility] CenterIwaadrtyqu77-38-6713 14:22-0500Diastolic blood qttygrbx09 mm[Hg]Magalie LESTER Work Phone: [facility]03-06-2025 14:22-0500Heart rate 81 /minMatthew Jd PA Work Phone: [facility]03-06-2025 14:22-0500 Respiratory rate16 /minMatthew Jd PA Work Phone: [facility]03-06-2025 14:22-2222SeR5% (BldA) [Mass fraction]98 %Magalie LESTER Work Phone: [facility]03-06-2025 14:22-0500Systolic blood mm[Hg]Magalie LESTER Work Phone: [facility]02-27-2025 14:18-0500Body mass index (BMI) [Ratio]33.25 kg/m2Kala Lloyd MD Work Phone: [facility] CenterRsapzhhozq66-57-5125 14:18-0500Body hhitxi73.63 kgKala Lloyd MD Work Phone: [facility] CenterOucytonxeu15-67-5906 14:18-0500Diastolic blood wtiyukfx31 mm[Hg]Kala Lloyd MD Work Phone: [facility] CenterXhqcqxgpvs45-07-2038 14:18-0500Heart rate78 /min Kala Lloyd MD Work Phone: [facility] CenterQyuswswund83-99-1081 14:18-1153NxB0% (BldA) [Mass fraction]98 %Kala Lloyd MD Work Phone: [phone] CenterGcwyflssgv57-12-0097 14:18-0500Systolic blood xeifqohi492 mm[Hg]Kala Lloyd MD Work Phone: [facility] CenterYrejmuffse34-29-7235 14:38-0500Body fvvdgi548.1 cmKala Lloyd MD Work Phone: [facility] CenterRwdjugickw63-57-5247 14:38-0500Body mass index (BMI) [Ratio]33.45 kg/m2Kala Lloyd MD Work Phone: [facility] CenterYefykhbrsy69-76-4862 14:38-0500Body .17 kgKala Lloyd MD Work Phone: [facility] CenterEgprogbgyw43-96-1030 14:38-0500Diastolic blood ukljawhq26 mm[Hg]Kala Lloyd MD Work Phone: [facility] CenterHkosbjhyqd10-90-6764 14:38-0500Heart rate74 /min Kala Lloyd MD Work Phone: [facility] CenterLlzuwgitzg56-94-4762 14:38-0500Respiratory rate18 /minKala Lloyd MD Work Phone: [place] [address]Biqddlmtjs86-13-2549 14:38-2593PvV1% (BldA) [Mass fraction]98 %Kala Lloyd MD Work Phone: [facility] CenterKaarkboejo51-13-1181 14:38-0500Systolic blood lapcwaug294 mm[Hg]Kala Lloyd MD Work Phone: [facility] CenterIkrglbxqwf54-14-8377 16:35-0500Body .1 cmMindajael Pires DPM Work Phone: [facility] CenterHcjgfogopt67-79-0058 16:35-0500Body mass index (BMI) [Ratio]33.28 kg/n4Hjfnbykf Filiberto DPM Work Phone: [facility] CenterAcwjdbqojm87-29-7531 16:35-0500Body pbpohy93.72 kgEliazar Pires DPM Work Phone: [facility] CenterDbqxrunrgc34-52-7155 16:35-0500Respiratory rate18 /minEliazar Pires DPM Work Phone: [facility] CenterWcvdprjbab49-66-8301 13:04-0500Diastolic blood hkmuvtdi918 mm[Hg]Magalie LESTER Work Phone: [facility]01-23-2025 13:04-0500Heart rate 89 /minMatthew Jd LESTER Work Phone: [facility]01-23-2025 13:04-0500 Respiratory rate18 /minMatthew Jd PA Work Phone: [facility]01-23-2025 13:04-2881LbW6% (BldA) [Mass fraction]97 %Magalie LESTER Work Phone: [facility]01-23-2025 13:04-0500Systolic blood mxcdqngo061 mm[Hg]Magalie LESTER Work Phone: [facility]11-22-2024 11:44-0500Body zmvxyq757.1 cmKala Lloyd MD Work Phone: [facility] CenterNkxrelhzdb71-30-8651 11:44-0500Body mass index (BMI) [Ratio]33.32 kg/m2Kala Lloyd MD Work Phone: [facility] CenterEwokowfvsm26-80-8728 11:44-0500Body cqwhhe02.81 kgKala Lloyd MD Work Phone: [facility] CenterNnjlfpwrpy86-67-2771 11:44-0500Diastolic blood dcrdvaqc75 mm[Hg]Kala Lloyd MD Work Phone: [place] [address]Ksolhzmyxz98-86-6598 11:44-0500Heart rate98 /min Kala Lloyd MD Work Phone: [place] [address]Uglcaatyhq38-33-4432 11:44-0500Respiratory rate18 /minKala Lloyd MD Work Phone: [place] [address]Npwngoqqgz10-19-2288 11:44-2537KgB9% (BldA) [Mass fraction]96 %Kala Lloyd MD Work Phone: [place] [address]Ezxgevzohw59-72-1197 11:44-0500Systolic blood tobnagqg549 mm[Hg]Kala Lloyd MD Work Phone: [place] [address]Gpwwwpghhh84-48-1517 12:33-0500Diastolic blood syvgqqdw925 mm[Hg]Magalie LESTER Work Phone: [facility]11-12-2024 12:33-0500Heart rate 88 /minMatthew Jd PA Work Phone: [facility]11-12-2024 12:33-0500 Respiratory rate20 /minMatthew Jd PA Work Phone: [facility]11-12-2024 12:33-0500Systolic blood mm[Hg]Magalie LESTER Work Phone: [facility]11-11-2024 13:02-0500Body torhgz842.1 cmAmoisés Porter DO Work Phone: [facility]linVzpivsmxai46-16-9025 13:02-0500Body mass index (BMI) [Ratio]33.28 kg/z9Xztbrjn Petznick DO Work Phone: [place] [address]Lpymvrfxai01-08-8246 13:02-0500Body temperature 98.6 [degF]Laverne Petznick DO Work Phone: [place] [address]Uvptpmxiry39-28-1229 13:02-0500Body pawhal32.72 kgAllison Petznick DO Work Phone: [place] [address]Icbljrpqou81-28-5822 13:02-0500Diastolic blood kpeefxhe87 mm[Hg]Laverne Petznick DO Work Phone: [place] [address]Ppvktygouj03-76-9930 13:02-0500Heart hare444 /min Laverne Petznick DO Work Phone: [place] [address]Khtotxfxzo33-95-6569 13:02-6105GqW3% (BldA) [Mass fraction]96 %Laverne Petznick DO Work Phone: [facility] CenterViiiamniol25-53-4214 13:02-0500Systolic blood qbzudzfl751 mm[Hg]Laverne Petznick DO Work Phone: [facility] CenterNhxfdsoeso16-49-6540 15:21-0500Body wrtbuy912.1 cmEliazar Pires DPM Work Phone: [facility] CenterAclwkwwfys19-16-7710 15:21-0500Body mass index (BMI) [Ratio]34.28 kg/r5VeknsehwEliazar Pires DPM Work Phone: [facility] CenterHdeygtcfwu86-57-8974 15:21-0500Body qzryjo41.44 kgEliazar Pires DPM Work Phone: [place] [address]Msjkrpixtu77-09-7014 15:21-0500Diastolic blood hyqsrqej72 mm[Hg]Eliazar Pires DPM Work Phone: [place] [address]Oybbodofxz47-40-0651 15:21-0500Heart rate78 /min Eliazar Pires DPM Work Phone: [place] [address]Pknrntyfhj68-16-1647 15:21-0500Systolic blood zkjarhhv864 mm[Hg]Eliazar Pires DPM Work Phone: [facility]oplinCjejsimntj85-08-9481 13:37-0400Body jpnyzn715.1 Kim Manley MD Work Phone: [facility] CenterSfffaxibnq39-98-4498 13:37-0400Body mass index (BMI) [Ratio]34.28 kg/n1AueqmDanii Manley MD Work Phone: [facility] CenterAtejygektq00-96-7516 13:37-0400Body ibfyia91.44 kgDanii Manley MD Work Phone: [place] [address]Jelumvxbzk54-14-6738 13:37-0400Diastolic blood hzsztbig07 mm[Hg]Danii Manley MD Work Phone: [facility] CenterKybbuldywn26-78-6938 13:37-0400Heart rate88 /min Danii Manley MD Work Phone: [facility] CenterVqikjnokkk52-66-7599 13:37-0400Respiratory rate18 /minDanii Manley MD Work Phone: [facility] CenterRxadtvraot47-69-4005 13:37-0400Systolic blood ulrlgkzl478 mm[Hg]Danii Manley MD Work Phone: [facility] CenterFritmzpimh15-47-5930 13:31-0400Body kogtwn857.6 cmMegan Verhoff PA-C Work Phone: [facility]10-02-2024 13:31-0400Body mass index (BMI) [Ratio]34.16 kg/z0Svmnc Verhoff PA-C Work Phone: [facility]10-02-2024 13:31-0400Body sskrox49.27 kgMegan Verhoff PA-C Work Phone: [facility]10-02-2024 13:31-0400Diastolic blood mm[Hg]Live Verhoff PA-C Work Phone: [facility]10-02-2024 13:31-0400Heart rate 83 /minLive Adamsff PA-C Work Phone: [facility]10-02-2024 13:31-5367VaS6% (BldA) [Mass fraction]97 %Live Adamsff PA-C Work Phone: [facility]10-02-2024 13:31-0400Systolic blood yscorlnb255 mm[Hg]Live Adamsff PA-C Work Phone: [facility]09-12-2024 14:29-0400Body fujalh628.1 cmAEDWARD Chavez Work Phone: 1(681)[address]09-12-2024 14:29-0400 Body mass index (BMI) [Ratio]33.4 kg/m2TAMMIE Chavez Work Phone: 1(017)[address]09-12-2024 14:29-0400 Body aywoefkvoap83.4 [degF]TAMMIE Chavez Work Phone: 1(141)[address]09-12-2024 14:29-0400 Body bpxhzi92.17 kgAPRDevi Chavez Work Phone: 1(513)[address]09-12-2024 14:29-0400 Diastolic blood yexhrppp54 mm[Hg]TAMMIE Chavez Work Phone: 1(087)[address]09-12-2024 14:29-0400 Heart hyul812 /minTAMMIE Chavez Work Phone: 1(898)[address]09-12-2024 14:29-0400 Respiratory rate16 /minTAMMIE Chavez Work Phone: 1(286)[address]09-12-2024 14:29-0400 SaO2% (BldA) [Mass fraction]98 %TAMMIE Chavez Work Phone: 1(128)[address]09-12-2024 14:29-0400 Systolic blood xylrgbge285 mm[Hg]TAMMIE Chavez Work Phone: 1(419)[address]08-29-2024 14:55-0400 Body .1 cmEliazar Pires DPM Work Phone: [facility] CenterUpfjzoblsh29-41-2781 14:55-0400Body mass index (BMI) [Ratio]34.61 kg/o4XwazihyjEliazar Pires DPM Work Phone: [facility] CenterDctbgxlonf95-04-4450 14:55-0400Body cydloa90.35 kgEliazar Pires DPM Work Phone: [facility] CenterCzkxymesue19-02-7515 14:55-0400Diastolic blood mm[Hg]Eliazar Pires DPM Work Phone: [facility] CenterLsruyplvpt28-23-1413 14:55-0400Heart rate79 /min Eliazar Pires DPM Work Phone: [facility] CenterUirlpcfnuk77-78-5968 14:55-0400Systolic blood ftfiiefq637 mm[Hg]Eliazar Pires DPM Work Phone: [facility] CenterDtcvojiozm90-08-9790 13:18-0400Diastolic blood cjxjaimf15 mm[Hg]Live Verhoff PA-C Work Phone: [facility]08-14-2024 13:18-0400Heart rate 87 /minMegan Verhoff PA-C Work Phone: [facility]08-14-2024 13:18-0400 Respiratory rate16 /minMegan Verhoff PA-C Work Phone: [facility]08-14-2024 13:18-1661FaW9% (BldA) [Mass fraction]98 %Live Verhoff PA-C Work Phone: [facility]08-14-2024 13:18-0400Systolic blood njxdpuhj364 mm[Hg]Live Verhoff PA-C Work Phone: [facility]07-23-2024 14:45-0400Body .1 cmAEDWARD Chavez Work Phone: [facility]07-23-2024 14:45-0400 Body mass index (BMI) [Ratio]34 kg/m2TAMMIE Chavez Work Phone: [facility]07-23-2024 14:45-0400 Body rewymf23.64 kgTAMMIE Chavez Work Phone: [facility]04-03-2024 10:56-0400 Body mass index (BMI) [Ratio]33.81 kg/e9Pnysg Verhoff PA-C Work Phone: [facility] [employer] Pagyif89-00-7766 10:56-0400Body xnuzko26.36 kgMegan Verhoff PA-C Work Phone: [facility] [employer] Juseip09-50-6612 10:56-0400Diastolic blood durgmzyp75 mm[Hg]Live Verhoff PA-C Work Phone: [facility] [employer] Awdwvo52-77-3556 10:56-0400Heart rate 90 /minMegan Verhoff PA-C Work Phone: [facility] Hgbvzw92-88-0271 10:56-0400 Respiratory rate18 /minMegan Verhoff PA-C Work Phone: [facility] [employer] Yyztlp95-37-4697 10:56-1835DjO6% (BldA) [Mass fraction]97 %Live Verhoff PA-C Work Phone: [facility] [employer] [id number] 10:56-0400Systolic blood ezvgfwsi074 mm[Hg]Live Verhoff PA-C Work Phone: [facility] [employer] [id number] 14:26-0500Body erpepz763.1 [facility] 14:26-0500Body mass index (BMI) [Ratio]34 kg/n6DcfqojgkmM[facility]02-15-2024 14:26-0500Body iqhnelqrhla07.2 [degF][facility]02-15-2024 14:26-0500Body etsrjj72.7 kg[facility]02[facility]2024 14:26-0500Diastolic blood mm[Hg][facility] 04-25-2023 14:26-0500Heart klec454 /[facility] 04-25-2023 14:26-0500Respiratory rate16 /[facility] 04-25-2023 14:26-4435ZzF3% (BldA) [Mass fraction]97 %[facility]02-15-2024 14:26-0500Systolic blood righocqe371 mm[Hg][facility]02-01-2024 14:14-0500Body mmibaa758.1 cmEliazar Pires DPM Work Phone: [facility]pg[facility]2022 14:14-0500Body mass index (BMI) [Ratio]33.45 kg/y0SlgvvczvEliazar Pires DPM Work Phone: [facility] [id number] 14:14-0500Body .17 kgEliazar Pires DPM Work Phone: [facility] [id number] 14:14-0500Diastolic blood vwbqotun83 mm[Hg]Eliazar Pires DPM Work Phone: [facility] [id number] 14:14-0500Heart rate82 /min Eliazar Pires DPM Work Phone: [facility] [id number] 14:14-0500Systolic blood mm[Hg]Eliazar Pires DPM Work Phone: [facility] [id number] 12:54-0500Body dmnasa344.6 Beba Dykes MD Work Phone: [facility]01-05-2024 12:54-0500Body mass index (BMI) [Ratio]35.7 kg/l4GrusarBird Dykes MD Work Phone: [facility]01-05-2024 12:54-0500Body .35 kgBird Dykes MD Work Phone: [facility]01-05-2024 12:54-0500Diastolic blood plerbrxc34 mm[Hg]Bird Dykes MD Work Phone: [facility]01-05-2024 12:54-0500Heart rate 81 /minBird Dykes MD Work Phone: [facility]01-05-2024 12:54-6709VdY3% (BldA) [Mass fraction]98 %Bird Dykes MD Work Phone: [facility]01-05-2024 12:54-0500Systolic blood vwmobllu624 mm[Hg]Bird Dykes MD Work Phone: [facility]08-10-2023 15:00-0400Body duilqr043.1 cmAbdul Danis Other [employer] Other 08-10-2023 15:00-0400Body mass index (BMI) [Ratio] 33.08 kg/r0Acfks Danis Other no[employer]It Other 08-10-2023 15:00-0400Body cwtmjugqgwm55.1 [degF]Nir Danis Other [employer] Other 08-10-2023 15:00-0400Body ajvavs96.18 kgAbdul Danis Other [employer] Other 08-10-2023 15:00-0400Diastolic blood frxtvuui63 mm[Hg] Nir Danis Other [employer] Other 08-10-2023 15:00-0400Respiratory rate18 /minAbdul Danis Other nort [employer] Other 08-10-2023 15:00-8809XqW6% (BldA) [Mass fraction]98 % Nir Danis Other [facility] [employer] Other 08-10-2023 15:00-0400Systolic blood mm[Hg] Nir Danis Other [facility] [employer] Other 496345-76-2521 14:00-0400Diastolic blood mm[Hg] MD Kala Lloyd Work Phone: [facility]05-04-2023 14:00-0400 Heart rate86 /minMD Kala Lloyd Work Phone: [phone]39[facility]05-04-2023 14:00-0400 Respiratory rate16 /minMD Kala Lloyd Work Phone: [phone]68[facility]05-04-2023 14:00-0400 SaO2% (BldA) [Mass fraction]99 %MD Kala Lloyd Work Phone: [phone]05-04-2023 14:00-0400 Systolic blood mm[Hg]MD Kala Lloyd Work Phone: [phone]05-04-2023 11:44-0400 Body libjwn066.56 cm Kala Lloyd Work Phone: [phone]05-04-2023 11:44-0400 Body cfesnkgnnlb16.6 [degF]MD Kala Lloyd Work Phone: [phone]05-04-2023 11:44-0400 Body eopdkl88.34 kgMD Kala Lloyd Work Phone: [facility]03-27-2023 14:15-0400 Body btxppi058.1 cmImad Asaad Other [employer] Other 03-27-2023 14:15-0400Body mass index (BMI) [Ratio] 32.95 kg/m2Imad Asaad Other [employer] Other 03-27-2023 14:15-0400Body wobbuv57.81 kgImad SAY Mediaad Other [employer] Other 03-27-2023 14:15-0400Diastolic blood kigivuft23 mm[Hg] Imad SAY Mediaad Other [employer] Other 03-27-2023 14:15-0400Systolic blood eqhnnkzi252 mm[Hg] Imad SAY Mediaad Other [employer] Other 03-10-2023 11:46-0500Body hhpxzuwhgoo46.8 [degF]MD Kala Lloyd Work Phone: [facility]03-10-2023 11:46-0500 Body igkkqx97.4 kg Kala Lloyd Work Phone: [facility]03-10-2023 11:46-0500 Diastolic blood tglvaedc78 mm[Hg]MD Kala Lloyd Work Phone: [facility]03-10-2023 11:46-0500 Heart rate94 /min Kala Lopezer Work Phone: [facility]03-10-2023 11:46-0500 Respiratory rate16 /minMD Kala Lloyd Work Phone: [facility]03-10-2023 11:46-0500 SaO2% (BldA) [Mass fraction]98 %MD Kala Lloyd Work Phone: [facility]03-10-2023 11:46-0500 Systolic blood epdfgcgr652 mm[Hg]MD Kala Lloyd Work Phone: [facility]02-02-2023 12:40-0500 Body pcvuqm604.1 cmAbdul Danis Other no[employer]It Other 066850-27-4790 12:40-0500Body mass index (BMI) [Ratio] 32.85 kg/w9Xzfzm Danis Other [employer] Other 915181-82-6309 12:40-0500Body wzhyulfdfkr02.7 [degF]Nir Danis Other [employer] Other 491528-58-9408 12:40-0500Body bqkqfa67.54 kgAbdul Danis Other [employer] Other 275396-09-7448 12:40-0500Diastolic blood hujytink53 mm[Hg] Nir Danis Other [employer] Other 669563-17-0840 12:40-0500Respiratory rate18 /minAbdul Danis Other [employer] Other 02-02-2023 12:40-9847MzT6% (BldA) [Mass fraction]97 % Nir Danis Other [employer] Other 02-02-2023 12:40-0500Systolic blood mm[Hg] Nir Danis Other [employer] Other 521891-69-6071 13:00-0400Body cxgcir696.1 cmAbdul Danis Other [employer] Other 07-07-2022 13:00-0400Body mass index (BMI) [Ratio] 34.44 kg/x1Kqchc Danis Other [employer] Other 07-07-2022 13:00-0400Body pkbrmbripwz27.6 [degF]Nir Danis Other [employer] Other 07-07-2022 13:00-0400Body yzvkpp26.9 kgAbdul Danis Other [employer] Other 07-07-2022 13:00-0400Diastolic blood gvloifhb78 mm[Hg] Nir Danis Other [employer] Other 07-07-2022 13:00-0400Respiratory rate18 /minAbdul Danis Other [employer] Other 07-07-2022 13:00-4369QpG0% (BldA) [Mass fraction]97 % Nir Danis Other [employer] Other 07-07-2022 13:00-0400Systolic blood lbbpzsmu777 mm[Hg] Nir Danis Other [employer] Other 02-12-2021 14:49-0500Body afbzhh602.1 cmMD Kala Prema Work Phone: [facility] Encounters Encounter DateEncounter TypeCare ProviderFacilityStart: 12-31-2024 End: 14-94-6876wzncrqojbaCoyhi Gezo PTANOMS Jean Physical TherapyComment on above:Piriformis syndrome of left side (Primary Dx)Start: 12-31-2024 End: 96-58-6525Wgqgce flowsheetAbbie Gezo PTANOMS Jean Physical TherapyStart: 12-31-2024 End: 01-17-9332Nwxrmy flowsheetAbbie Gezo PTANOMS Jean Physical TherapyStart: 12-28-2024 End: 40-30-1199Whmcwb Shaheed Manley MD Work Phone: noAK Ashkan EndocrinologyStart: 12-28-2024 End: 40-05-3571Xqsvxh Shaheed Manley MD Work Phone: noMS Munoz EndocrinologyStart: 12-28-2024 End: 69-93-3915Xlcuid outpatient visit 25 minutesAhradha Manley MD Work Phone: noMS Munoz EndocrinologyComment on above: Hypercalcemia (Primary Dx); Vitamin D deficiency; Hypomagnesemia; Abnormal kidney function; Adrenal nodule (HCC); Benign neoplasm of parathyroid glandStart: 12-28-2024 End: 94-00-7092hmgoxjvoyiJRWCW F SABBAGHNot AvailableStart: 12-22-2024 End: 16-12-4226Uiwgrz flowsheetMarshall Brink PTANOMS [facility] Start: 12-22-2024 End: 14-61-5246Oiffhb flowsheetMarshall Brink PTANOM[facility] Start: 12-22-2024 End: 34-73-4489vqhnoshuncDmsaeyyu Brink PTANOMS Jean Physical TherapyComment on above:Piriformis syndrome of left side (Primary Dx)Start: 12-14-2024 End: 80-41-4028Limydcfne Result EncounterGeneric External Data ProviderNOMS External Department UnsolicitedStart: 12-14-2024 End: 28-64-9964Lxubdevnx Result EncounterGeneric External Data ProviderNOMS External Department UnsolicitedStart: 12-11-2024 End: 93-27-5686fpwtrlbdypKYZJSCQ E HOGANProMediKaiser Martinez Medical Centertart: 12-09-2024 End: 59-91-8507awsdgyyijqJxdbqxdl Brink PTANOMS Jean Physical TherapyComment on above:Piriformis syndrome of left side (Primary Dx)Start: 12-09-2024 End: 53-67-1295Ktcnqb flowsheetSumi Cottrell PTAN[facility] Start: 12-09-2024 End: 71-70-3820Jtefqn flowsheetSumi Cottrell PTAN[facility] Start: 12-07-2024 End: 74-04-2266okbuxgbftcQbiqiaw Bedell TRAFFIC CIRCUIT ENGINEER Work Phone: NOAK POPULATION HEALTHStart: 12-01-2024 End: 13-49-6235Adewhe outpatient visit 25 minutesBatson Children'S Hospitalabdirahman Nova Caity DO Work Phone: [facility] 230Comment on above:Type 2 diabetes mellitus with stage 3b chronic kidney disease, with long-term current use of insulin (HCC) (Primary Dx); Type 2 diabetes mellitus with peripheral neuropathy (HCC); Type 2 diabetes mellitus with hyperglycemia, with long-term current use of insulin (HCC); Moderate nonproliferative diabetic retinopathy of both eyes with macular edema associated with type2 diabetes mellitus (HCC); Class 2 severe obesity due to excess calories with serious comorbidity and body mass index (BMI) of35.0 to 35.9 in adult ([facility]-HCC)Start: 12-01-2024 End: 52-68-5057Zumqxx flowsheetSumi Cottrell [facility] Start: 12-01-2024 End: 63-10-6973Oifbey flowsheetSumi Cottrell [facility] Start: 12-01-2024 End: 91-65-3171jwhkuxqkedRphfipem Brink PTANOMS Jean Physical TherapyComment on above:Piriformis syndrome of left side (Primary Dx)Start: 11-24-2024 End: 41-78-2221Lqkseh Min Valentino [facility] Work Phone: [facility] HealthStart: 11-24-2024 End: 18-63-0415Ggkdwx flowsNeftaly Washburnro [facility] Work Phone: [facility] Behavioral HealthStart: 11-24-2024 End: 85-65-4940Kkyukkgg SupportLindy Gumaro Chicho [facility] Work Phone: noms [facility] Behavioral HealthComment on above: Bipolar 1 disorder (HCC)Start: 24-17-5872pepwegakwuHwhtzx Al ShweikiCincinnati Eye InstituteStart: 11-19-2024 End: 62-30-7230Ojrvvgecv encounterIris AlexiaKettering Health [facility] - Pain Management ClinicStart: 11-17-2024 End: 46-45-1284Pbeppa outpatient visit 25 minutesHealthalliance Hospital: Broadway Campusmelodie Green PA Work Phone: [facility] - Pain Management ClinicComment on above:Spinal stenosis of lumbar region with neurogenic claudication (Primary Dx)Start: 11-17-2024 End: 49-71-5250wmabuwqhelFLNBRQB S NIJUANProtestant Deaconess Hospitaltart: 11-16-2024 End: 73-23-9663Pnbbvy flowsheetMarshall Brink [facility] Start: 11-16-2024 End: 51-72-3012Bikprl flowsheetMarshall Brink PT[facility] Start: 11-16-2024 End: 25-30-0854oevqiunmlmVgrsklam Brink PTANOMS Jean Physical TherapyComment on above:Piriformis syndrome of left side (Primary Dx)Start: 11-12-2024 End: 70-58-2227Vhphqb outpatient visit 15 minutesEliazar Pires DPM Work Phone: NOKZ CI PODIATRYComment on above:Metatarsalgia, left foot (Primary Dx); Diabetes 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 polyneuropathy, with long-term current use of insulin (HCC); Pain due to onychomycosis of toenails of both feetStart: 11-12-2024 End: 42-58-9371typsmbtjtfANDWDMAM A BROWNNot AvailableStart: 11-12-2024 End: 90-71-7934Rpwimgbabar Pires DPM Work Phone: noms CI PODIATRYStart: 11-12-2024 End: 77-10-1396Cqagqa flowsheetMindajael Pires DPM Work Phone: noms CI PODIATRYStart: 43-49-7815fjicocikmeZtvuhc Al ShweSentara Leigh Hospital Eye InstituteStart: 11-02-2024 End: 33-93-0691Ksdpls flowsheetMarshall Brink PTAN[facility] Start: 11-02-2024 End: 98-11-1351Rfdnlv flowsheetMarshall Brink [facility] Start: 11-02-2024 End: 28-29-6017noccinlqqkWrosixra Brink PTANOMS Jean Physical TherapyComment on above:Piriformis syndrome of left side (Primary Dx)Start: 10-28-2024 End: 33-57-6331Kypudx flowsheetMarshall Brink [facility] Start: 10-28-2024 End: 75-35-0476Kvkvfh flowsheetMarshall Brink [facility] Start: 10-28-2024 End: 00-42-9184ghyitpmbbjNkmniiwh Brink PTANOMS Jean Physical TherapyComment on above:Piriformis syndrome of left side (Primary Dx)Start: 10-21-2024 End: 85-83-4883Hpsgvs flowsheetSammantha Lay PTNOMS [facility] Start: 10-21-2024 End: 97-39-8899Awaifu flowsheetSammantha Lay PTNOMS [facility] Start: 10-21-2024 End: 36-53-7606mlrcydloapNpozaeprl Lay PTNOMS [facility] Comment on above:Piriformis syndrome of left side (Primary Dx)Start: 10-13-2024 End: 67-70-7678Dwpbie outpatient visit 25 minutesSamekem Ford Work Phone: RVA FindlayStart: 94-61-5686invmrdbmpyEhkyhc [facility] InstituteStart: 10-08-2024 End: 79-44-6130Rtenog outpatient visit 15 minutesMatthew S Nienberg PA Work Phone: [facility] - Pain Management ClinicComment on above:Lumbosacral spondylosis without myelopathy (Primary Dx) Start: 10-08-2024 End: 42-79-0381itezwdybwaYFBCVYWCape Cod Hospitaltart: 09-25-2024 End: 14-65-4633nxabxhnezdCLIZHZG E HOGANToledo Hospital HospitalStart: 09-21-2024 End: 59-55-3246Zzdcvrtwg encounterJerobert Turcios PT Work Phone: noms CI PTComment on above:re: PT Eval today; FU; PT Eval rs (10/21/24 w/ Alin Lay PT.)Start: 09-17-2024 End: 19-29-9159Ggxckb outpatient visit 25 minutesMagalie LESTER Work Phone: [facility] - Pain Management ClinicComment on above:Disorder of sacrum (Primary Dx)Start: 09-17-2024 End: 92-77-2320knpjzabcgwVMRDFRDLane Regional Medical Center HospitalStart: 09-09-2024 End: 53-02-5263Ljictc flowsIvett Lloyd MD Work Phone: NOMS FNR FMStart: 09-09-2024 End: 55-17-9338Osniuh Jonah Lloyd MD Work Phone: NOMS FNR FMStart: 09-09-2024 End: 61-55-0293Zafjwqtji encounterMagalie LESTER Work Phone: [facility] - Pain Management ClinicStart: 09-09-2024 End: 22-33-6682Xxajcj outpatient visit 15 minutesKala Lloyd MD Work Phone: NOMS FNR FMComment on above:Piriformis syndrome of left side (Primary Dx)Start: 09-09-2024 End: 19-04-8622pajmhuvmfgFCAK F BOWERCatalina AvailableStart: 09-03-2024 End: 84-38-3489Vdsiso outpatient visit 15 minutesEliazar Pires DPM Work Phone: NOMS CI PODIATRYComment on above:Metatarsalgia, left foot (Primary Dx); Diabetes 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 polyneuropathy, with long-term current use of insulin ([facility]); Pain due to onychomycosis of toenails of both feetStart: 09-03-2024 End: 02-70-7487sfgzhfkdkuBWNQYHXF A BROWNNot AvailableStart: 09-03-2024 End: 23-17-4946Rcqoafbabar Pires DPM Work Phone: NOMS CI PODIATRYStart: 09-03-2024 End: 04-97-4329Vkwkeg Teri Pires DPM Work Phone: noms CI PODIATRYStart: 08-28-2024 End: 46-48-6334Qceumi outpatient visit 25 minutesLaverne Porter DO Work Phone: noms SWS FM 230Comment on above:Type 2 diabetes mellitus with peripheral neuropathy (HCC) (Primary Dx); Moderate nonproliferative diabetic retinopathy of both eyes with macular edema associated with type2 diabetes mellitus (HCC); Type 2 diabetes mellitus with stage 3a chronic kidney disease, with long-term current use of insulin (HCC); Type 2 diabetes mellitus with hyperglycemia, with long-term current use of insulin (HCC); Class 2 severe obesity due to excess calories with serious comorbidity and body mass index (BMI) of35.0 to 35.9 in adult ([facility]-HCC)Start: 08-28-2024 End: 88-90-6879dqyhplxhgdLLBKUOTDillon Kumar AvailableStart: 08-27-2024 End: 42-42-1570Mvshkm outpatient visit 25 minutesMagalie LESTER Work Phone: [facility] - Pain Management ClinicComment on above:Disorder of sacrum (Primary Dx)Start: 08-27-2024 End: 71-46-9254mdsptbtqnxZLFZILF S NIENBERGToledo Hospital HospitalStart: 08-06-2024 End: 06-01-8327Bhjcpq flowsheetJacqueline K Chicho LPCC Work Phone: noms SWS BHStart: 08-06-2024 End: 34-93-5197Hbprio flowsheetJacqueline K Chicho LPCC Work Phone: noms SWS BHStart: 08-06-2024 End: 01-04-5514Fcsdzehy SupportJacqueline K Chicho LPCC Work Phone: noms SWS BHComment on above:Bipolar 1 disorder (CMS/HCC)Start: 07-31-2024 End: 38-30-4417poqjqioimyFFJDRBZ E HOGANToledo Hospital HospitalStart: 07-30-2024 End: 84-88-6881Cnxwpa outpatient visit 25 minutesKala Lloyd MD Work Phone: noms FNR FMComment on above:TEODORA on CPAP (Primary Dx); Type 2 diabetes mellitus with stage 3a chronic kidney disease, with long-term current use of insulin (HCC) (CMS/HCC); Seasonal allergic rhinitis due to pollen; Primary hypertension (CMS/HCC); Hyperlipidemia, unspecified hyperlipidemia type (CMS/HCC); Type 2 diabetes mellitus with peripheral neuropathy ([facility]/HCC); Mixed hyperlipidemia ([facility]/HCC); Acute bronchitis, unspecified organism; Gastroesophageal reflux disease without esophagitisStart: 07-30-2024 End: 75-20-6620gijjifmgdaAQCQ F BOWERNot AvailableStart: 07-21-2024 End: 25-59-0298Xlainjmn SupportJacqueline K Chicho LPCC Work Phone: noms SWS BHComment on above:Bipolar 1 disorder (CMS/HCC)AppointmentStart: 07-09-2024 End: 73-97-2752Hrssktqtr Result EncounterGeneric External Data ProviderNOMS External Department UnsolicitedStart: 07-09-2024 End: 13-86-0160Pkogqthch Result EncounterGeneric External Data ProviderNOMS External Department UnsolicitedStart: 07-09-2024 End: 01-11-4737Qqlnxo outpatient visit 25 minutesNmnarcisa Pamela Jd LESTER Work Phone: [facility] - Pain Management ClinicComment on above:Spinal stenosis of lumbar region with neurogenic claudication (Primary Dx)Start: 07-09-2024 End: 35-51-9159erpqizxgszASUJALDUniversity Medical Center New Orleans HospitalStart: 07-08-2024 End: 72-80-2139Cxesqqlah Result EncounterGeneric External Data ProviderNOMS External Department UnsolicitedStart: 07-08-2024 End: 52-95-8297Wkpjxvdul Result EncounterGeneric External Data ProviderNOMS External Department UnsolicitedStart: 06-29-2024 End: 47-75-9342Vyqytt Shaehed Manley MD Work Phone: noms ENDOCRINOLOGYStart: 06-29-2024 End: 98-20-0326Ddknmybabar Manley MD Work Phone: noms ENDOCRINOLOGYStart: 06-29-2024 End: 41-78-9064Suztnh outpatient visit 40 minutesDanii Manley MD Work Phone: noms ENDOCRINOLOGYComment on above:Hypercalcemia (Primary Dx); Vitamin D deficiency; Hypomagnesemia; Abnormal kidney function; Adrenal nodule (CMS/HCC)Start: 06-29-2024 End: 38-32-3412eydgycbemuZWOFM F SABBAGHNot AvailableStart: 06-25-2024 End: 70-05-5352Jeqyvn outpatient visit 15 minutesEliazar Pires DPM Work Phone: noms PODIATRYComment on above:Metatarsalgia, left foot (Primary Dx); Diabetes 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 polyneuropathy, with long-term current use of insulin (CMS/HCC); Pain due to onychomycosis of toenails of both feetStart: 06-25-2024 End: 49-65-4415zfuydbfjfzWJAJYHXD A BROWNNot AvailableStart: 06-23-2024 End: 40-68-1159Ahsjlr outpatient visit 25 minutesSameer Al Shweiki Work Phone: [facility] FindlayStart: 90-23-8274iaxpbskxdbRegvsk Al MosesFairmont Hospital and Clinictart: 06-18-2024 End: 46-82-9185plejldpcljSyadj R Wolf S[employer]ON HELPER Work Phone: [facility] Work Phone: Start: 06-18-2024 End: 92-03-2492Soprzlm encounter procedureLumariah Chavez S[employer]ON HELPER Work Phone: [facility] GroupSAMARITAN [facility] [place] Work Phone: Start: 06-10-2024 End: 37-62-6877Tsbizafqa Result EncounterGeneric External Data ProviderNOMS External Department UnsolicitedStart: 06-10-2024 End: 86-60-9351Oskqaacrs Result EncounterGeneric External Data ProviderNOMS External Department UnsolicitedStart: 87-44-3154Bpf-patient / Non-visitLumariah Chavez S[employer]ON HELPER Work Phone: [facility] GroupColumbia Basin Hospital Professional [facility] Work Phone: Start: 06-09-2024 End: 88-11-8578BoaqprIkwoa F Sabbagh MD Work Phone: noms ENDOCRINOLOGYComment on above:Vitamin D deficiencyStart: 05-29-2024 End: 37-40-7921iwhpdxcsqcVVNX Derick Marino AvailableStart: 05-21-2024 End: 76-38-7939Ncculy flowsheetJacmonicaline Gumaro Valentino LPCC Work Phone: noms SWS BHStart: 05-21-2024 End: 56-24-6230Fposkb flowsheetJamanoharline Gumaro Valentino LPCC Work Phone: noms SWS BHStart: 05-21-2024 End: 46-63-6000Ognnqfpi SupportLindy Valentino [facility] Work Phone: noms SWS BHComment on above:Bipolar 1 disorder (CMS/HCC)Start: 05-19-2024 End: 15-89-4493Pmlrkq outpatient visit 25 minutesLaverne Porter DO Work Phone: NOMS SWS FM 230Comment on above:Type 2 diabetes mellitus with peripheral neuropathy (CMS/HCC) (Primary Dx); Type 2 diabetes mellitus with stage 3a chronic kidney disease, with long-term current use of insulin (HCC) (CMS/HCC); 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 associated with type 2 diabetes mellitus (CMS/HCC); Type 2 diabetes mellitus with hyperglycemia, with long-term current use of insulin (CMS/HCC)Start: 05-19-2024 End: 52-65-1150ljdtsmnyktCEAEDTP M PETZNICKNot AvailableStart: 05-18-2024 End: 95-81-2359Kjtuohtyd encounterAllabdirahman Porter DO Work Phone: noMS SWS FM 230Comment on above:Appointment ConfirmationStart: 05-14-2024 End: 46-62-8954Gdwexu outpatient visit 15 minutesMagalie LESTER Work Phone: [facility] - Pain Management ClinicComment on above:Lumbosacral spondylosis without myelopathy (Primary Dx) Start: 05-14-2024 End: 27-55-6940zaxjnqaajrOKNPHGQ S NIENBERGToledo Hospital HospitalStart: 99-09-6735Yyeqfmxtic Memorial Hospital Centralmariah Chavez APRN Work Phone: [facility]- CredibleStart: 05-10-2024 End: 74-38-0596Imotpq OnlyKala Lloyd MD Work Phone: NOUX FNR FMComment on above:Constipation, unspecified constipation type (Primary Dx)Start: 05-07-2024 End: 08-08-5367Kxpyzwx encounter statusKala Lloyd MD Work Phone: [facility] Work Phone: Start: 05-07-2024 End: 47-69-2910Pzrvsbpb preventive med est patient 40-64yrSandee Lloyd MD Work Phone: NOMR FNR FMComment on above:Routine general medical examination at a health care facility (Primary [...] for screening mammogram for malignant neoplasm of breastStart: 05-07-2024 End: 64-94-4231dilnnivnenRTMS F BOWERNot AvailableStart: 05-07-2024 End: 49-52-7456Keknur Jonah Lloyd MD Work Phone: NOXC FNR FMStart: 05-07-2024 End: 34-12-8752Clxodi Jonah Lloyd MD Work Phone: NONN FNR FMStart: 05-05-2024 End: 47-86-9257Lhbxwt outpatient visit 25 minutesKala Lloyd MD Work Phone: NOYF FNR FMComment on above:Hematuria, unspecified type (Primary Dx); Generalized abdominal painStart: 05-05-2024 End: 58-78-0549cmjqaavyroFXQN F BOWERNot AvailableStart: 05-05-2024 End: 07-62-7276Iaijzf Jonah Lloyd MD Work Phone: NOWF FNR FMStart: 05-05-2024 End: 10-81-4876Tcmkty flowsIvett Lloyd MD Work Phone: noms FNR FMStart: 05-04-2024 End: 03-33-3445Dfuvahcbu Wai Lloyd MD Work Phone: noms FNR FMStart: 04-30-2024 End: 93-99-6069Zjbtebci SupportJacqueline K Chicho LPCC Work Phone: noms SWS BHComment on above:Bipolar 1 disorder ([facility])Start: 04-30-2024 End: 04-07-0779Lljhag flowsheetJacqueline K Chicho LPCC Work Phone: noms SWS BHStart: 04-30-2024 End: 29-51-8054Mlllgp flowsheetJacqueline K Chicho LPCC Work Phone: noms SWS BHStart: 04-24-2024 End: 89-14-8495mmdzyxnsljTDBYVZA E HOGANRutland Regional Medical CenterMedica Kaiser Foundation Hospitaltart: 04-09-2024 End: 62-36-6767Gfrpbx outpatient visit 15 minutesNicleola Pires DPM Work Phone: noms CI PODIATRYComment on above:Metatarsalgia, left foot (Primary Dx); Diabetes 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 polyneuropathy, with long-term current use of insulin ([facility]); Pain due to onychomycosis of toenails of both feetStart: 04-09-2024 End: 59-11-1553qkyvblgcdcRMMJBXBK A BROWNNot AvailableStart: 04-09-2024 End: 42-41-1702Vngdax flowsheetEliazar Pires DPM Work Phone: noms CI PODIATRYStart: 04-09-2024 End: 76-75-0043Mwtxyn flowsheetEliazar Pires DPM Work Phone: noms CI PODIATRYStart: 04-08-2024 End: 91-97-4979Fbqdyk flowsheetJacqueline K Chicho LPCC Work Phone: noms [facility] BHStart: 04-08-2024 End: 89-30-5896Tevxss flowsheetJacqueline K Chicho LPCC Work Phone: noms [facility] BHStart: 04-08-2024 End: 59-72-0384Egqgbmdt SupportJacqueline K Chicho LPCC Work Phone: noms [facility] BHComment on above:Bipolar 1 disorder (CMS/HCC)Start: 04-02-2024 End: 67-58-7546Ocssop outpatient visit [facility] minutesUnity [facility] Jd LESTER Work Phone: [facility] - Pain Management ClinicComment on above:Spinal stenosis of lumbar region with neurogenic claudication (Primary Dx)Start: 04-02-2024 End: 85-26-3713qgjmbydmaaRXNRVLJThe NeuroMedical Center HospitalStart: 03-19-2024 End: 95-43-9857Eynedu flowsheetJacqueline Gumaro Chicho LPCC Work Phone: noms [facility] BHStart: 03-19-2024 End: 18-58-4349Rcjxla flowsheetJacqueline K Chicho LPCC Work Phone: noms [facility] BHStart: 03-19-2024 End: 70-16-3042Utilgpwd SupportJacqueline Gumaro Chicho LPCC Work Phone: noms [facility] BHComment on above:Bipolar 1 disorder (CMS/HCC)Start: 02-28-2024 End: 49-59-3237lbhgpyajygYTXFTRJTennova Healthcare HospitalStart: 02-25-2024 End: 27-53-4327Tnlbfc outpatient visit 15 minutesSterling Ford Work Phone: RVP FindlayStart: 43-81-6222abxesrnoxiDjfhes Al ShweikiUniversity Hospitals Beachwood Medical Center InstituteStart: 02-24-2024 End: 81-39-2571Pymicaaon encounterKala Lloyd MD Work Phone: NOMS FNR FMStart: 01-31-2024 End: 63-89-1041Aobjzn flowsIvett Lloyd MD Work Phone: NOMS FNR FMStart: 01-31-2024 End: 95-12-3206Ffwrcl Jonah Lloyd MD Work Phone: NOMS FNR FMStart: 01-31-2024 End: 51-06-9446Qympbd outpatient visit 25 minutesKala Lloyd MD Work Phone: NOMS FNR FMComment on above:Acute bronchitis, unspecified organism (Primary Dx); Chronic diarrheaStart: 01-31-2024 End: 78-39-8977zdppxydeflSZGT F BOWERNot AvailableStart: 01-23-2024 End: 14-68-4798Vnaaxx flowsheetJacqueline K Chicho LPCC Work Phone: noMS SWS BHStart: 01-23-2024 End: 32-89-7978Podyqb flowsheetJacqueline K Chicho LPCC Work Phone: NOMS SWS BHStart: 01-23-2024 End: 35-31-2869Fhcfxbif SupportJacqueline K Chicho LPCC Work Phone: noMS SWS BHComment on above:Bipolar 1 disorder (CMS/HCC)Start: 01-21-2024 End: 94-87-0228Khhdaz outpatient visit 25 minutesNmnarcisa LESTER Work Phone: [facility] - Pain Management ClinicComment on above:Disorder of sacrum (Primary Dx)Start: 01-21-2024 End: 75-26-8538rczwgczkxqYXORXUQ S NIENBERGToledo Hospital HospitalStart: 01-20-2024 End: 03-10-6858Wqkrjl outpatient visit 25 minutesLaverne Porter DO Work Phone: [facility]S SWS FM 230Comment on above: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 associated with type 2 diabetes mellitus (CMS/HCC) (Primary Dx); Type 2 diabetes mellitus with peripheral neuropathy (CMS/HCC); Type 2 diabetes mellitus with stage 3a chronic kidney disease, with long-term current use of insulin (HCC) (CMS/HCC)Start: 01-20-2024 End: 41-17-0094abisldxnyzFXXSCPPDillon Kumar AvailableStart: 01-16-2024 End: 21-50-9768Kqlrsf outpatient visit 15 minutesEliazar Pires DPM Work Phone: noms CI PODIATRYComment on above:Metatarsalgia, left foot (Primary Dx); Diabetes 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 polyneuropathy, with long-term current use of insulin (CMS/HCC); Pain due to onychomycosis of toenails of both feetStart: 01-16-2024 End: 79-71-8956cblpskxoinRFCFCUNW A BROWNNot AvailableStart: 01-16-2024 End: 00-45-3757Ijajuq Teri Pires DPM Work Phone: noms CI PODIATRYStart: 01-16-2024 End: 71-11-7414Eisunyjacquie Pires DPM Work Phone: noms CI PODIATRYStart: 12-30-2023 End: 39-68-2972Yzhvko outpatient visit 25 minutesDanii Manley MD Work Phone: noms ENDOCRINOLOGYComment on above:Hypercalcemia (Primary Dx); Vitamin D deficiency; Benign neoplasm of parathyroid gland; Hypomagnesemia; Abnormal kidney functionStart: 12-27-2023 End: 88-73-0401nnereeoyuzVDAGSEEThe Children's Hospital Foundationtart: 12-27-2023 End: 74-40-3961ozdmbulhnrCOUZKFZThe Children's Hospital Foundationtart: 2023 End: 94-59-4124Guuywppyw Result EncounterGeneric External Data ProviderNOMS External Department UnsolicitedStart: 2023 End: 70-39-9615Ddvwvuwah Result EncounterGeneric External Data ProviderNOMS External Department UnsolicitedStart: 12-23-2023 End: 57-31-9111Xydzbl flowsheetJacqueline K Chicho LPCC Work Phone: noms SWS BHStart: 12-23-2023 End: 29-67-2149Xchmbg flowsheetJacqueline K Chicho LPCC Work Phone: noms SWS BHStart: 12-23-2023 End: 39-31-9448Xamjljoh SupportJacqueline K Chicho LPCC Work Phone: noms [facility] BHComment on above:Bipolar 1 disorder (CMS/HCC)Start: 12-11-2023 End: 13-91-2721Xphsxi outpatient visit 25 minutesLive Kwon PA-C Work Phone: [facility] - Pain Management ClinicComment on above:Lumbar spondylosis (Primary Dx); Disorder of sacrum; Spinal stenosis of lumbar region with neurogenic claudicationStart: 12-06-2023 End: 81-55-0424BubswdSfxutmiq Oswaldo Travis NP Work Phone: noms FNR FMComment on above:Seasonal allergic rhinitis due to pollenStart: 12-02-2023 End: 70-09-4369Ozwturga SupportJacqueline K Chicho LPCC Work Phone: noms [facility] BHComment on above:Bipolar 1 disorder (CMS/HCC)Start: 11-21-2023 End: 02-03-4490xmqwtrlvgtAREH Luann R Wolf Work Phone: [facility] Work Phone: Start: 11-21-2023 End: 03-46-0511Yxsmyjx encounter procedureTAMMIE Chavez Work Phone: [facility] Nephrology [place] Work Phone: Start: 11-13-2023 End: 38-99-4484Vuydixdbe Result EncounterGeneric External Data ProviderNOMS External Department UnsolicitedStart: 11-13-2023 End: 25-02-0266Bykudrlsd Result EncounterGeneric External Data ProviderNOMS External Department UnsolicitedStart: 18-96-7043Srz-patient / Non-visitTAMMIE Chavez Work Phone: [facility] Work Phone: Start: 11-07-2023 End: 14-04-7134Kdygix outpatient visit 10 minutesNicleola Chacon Brown DPM Work Phone: noms CI PODIATRYComment on above:Metatarsalgia, left foot (Primary Dx); Diabetes 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 polyneuropathy, with long-term current use of insulin (CMS/[facility]); Onychomycosis; Toe pain, bilateralStart: 11-07-2023 End: 33-57-9932Pgcgkj flowsheetNicholas Oswaldo Brown DPM Work Phone: N[facility]S CI PODIATRYStart: 11-07-2023 End: 46-30-0584Bnjpml flowsheetNicholas A Brown DPM Work Phone: noms CI PODIATRYStart: 11-04-2023 End: 57-97-0280Flogrd flowsheetJacqueline K Chicho LPCC Work Phone: noMS SWS BHStart: 11-04-2023 End: 00-12-1301Ozauta flowsheetJacqueline K Chicho LPCC Work Phone: noms SWS BHStart: 11-04-2023 End: 00-92-2901Rfvntchn SupportJacqueline K Chicho LPCC Work Phone: noMS SWS BHComment on above:Bipolar 1 disorder (CMS/HCC)Start: 66-63-1210Ntclevrxuj RecurringTAMMIE Chavez Work Phone: [facility]- CredibleStart: 10-23-2023 End: 65-38-9655Fzknhv outpatient visit 25 minutesMecorby Kwon PA-C Work Phone: [facility] - Pain Management ClinicComment on above:Lumbar spondylosis (Primary Dx); Trochanteric bursitis of left hip; Disorder of sacrumStart: 10-01-2023 End: 47-81-8631qzjpcmckxvYMJU Kaylie Chavez Work Phone: [facility] Work Phone: Start: 10-01-2023 End: 95-44-6510Dnjsjtf encounter procedureAPRDevi Chavez Work Phone: [facility] Neurosurgery Work Phone: start: 09-30-2023 End: 29-92-5300Rersdst encounter procedureAPRDevi Chavez Work Phone: [facility] Work Phone: Start: 09-30-2023 End: 40-66-4753asgbiaxzsxBRSK Luann R Wolf Work Phone: [facility] Work Phone: Start: 68-53-7005Qevuoigwpo RecurringTAMMIE Chaevz Work Phone: [facility]- CredibleStart: 06-24-2023 End: 05-36-0843Djfnwezrq encounterIripamela Hale [facility] Pain Management ClinicStart: 06-21-2023 End: 52-15-6397Fnlyzfuuo encounterTonroberto Ferreira [facility] - Pain Management ClinicComment on above:Back painStart: 06-12-2023 End: 17-42-0764Gfceom outpatient visit 25 minutesMecorby Kwon PA-C Work Phone: [facility] - Pain Management ClinicComment on above:Lumbar spondylosis (Primary Dx)Start: 10-99-6618Eanjbeycy encounterPatrey Wong [facility] Physicians CardiologyComment on above: Surgical Or Dental ClearanceStart: 04-25-2023 End: 01-33-9477zxzybguxisRmaizqept [facility] Work Phone: Start: 04-25-2023 End: 94-04-5887Jjbittb encounter procedureNov[facility] Nephrology [place] Work Phone: Start: 98-65-2920Povaochyih RecurringAPRN Kaylie Chavez Work Phone: [facility]- CredibleStart: 61-06-2555Ujmxx abstractingJacmoriah Valentino LPCC Work Phone: noms SWS BHStart: 04-11-2023 End: 33-02-6800Jbfnnc outpatient visit 15 minutesEliazar Pires DPM Work Phone: noms CI PODIATRYComment on above:Metatarsalgia, left foot (Primary Dx); Diabetes 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 polyneuropathy, with long-term current use of insulin ([facility]); Onychomycosis; Toe pain, right; Toe pain, leftStart: 04-04-2023 End: 33-44-5404Wuwcro outpatient visit 15 minutesCiarra Zafar Work Phone: [facility] [place]kyStart: 56-17-1165Nfrzvimqc encounter Don Taylor [facility] Physicians CardiologyComment on above:Direct LDL Start: 96-85-0448Taiyysnbl encounterLouise Hale [facility] - Pain Management ClinicStart: 03-15-2023 End: 57-62-9679Ugttgq outpatient visit 25 minutesBird Dykes MD Work Phone: [facility] CardiologyComment on above:Chest pain, unspecified type (Primary Dx); Primary hypertension; Familial hypercholesterolemia; Abnormal EKGStart: 90-86-6450Erxvdihep encounterRamila Jones CMAProMedica Physicians CardiologyStart: 10-18-2022 End: 85-39-8158mdhabnbglvOcqoe Qadir Other NoVerbalizeIt Other Start: 86-91-6442Ggcftu outpatient visit 25 minutes Nir QadirFPG NephrologyStart: 09-27-2022 End: 72-74-7445Hunmfo outpatient visit 15 minutesMay El Andrade Work Phone: [facility] [place]kyStart: 08-09-2022 End: 27-70-0663qinmkbtryzTG Kala Lloyd Work Phone: [facility] Work Phone: Start: 08-09-2022 End: 51-46-9550Kwvrnzw encounter procedureMD Kala Lloyd Work Phone: [facility] Work Phone: Start: 07-25-2022 End: 62-43-7618Pacpwtt encounter procedureMD Kala Lloyd Work Phone: [facility]CT Scan [facility] [place] Work Phone: Start: 07-23-2022 End: 44-02-0602swasdbnlkjRT Kala Lloyd Work Phone: [facility] Work Phone: Start: 07-23-2022 End: 93-00-9644Lgjmobc encounter procedureMD Kala Lloyd Work Phone: [facility]-Nuc Med [facility] [place] Work Phone: Start: 46-81-5755Whgyxiyen encounterAbdul QadirFPG NephrologyStart: 07-18-2022 End: 95-81-8023dabonuqoyxXKCIE QADIRNothe rehabilitation institute of [facility] [place] [employer] Other Start: 07-12-2022 End: 68-66-3911Yqcvzwavz to same day surgery centerMD Kala Lloyd Work Phone: [facility] Work Phone: Start: 07-12-2022 End: 14-53-0370lkeoennpxcIB Kala Lloyd Work Phone: [facility] Work Phone: Start: 97-40-5712Ymrzomibsu RecurringMD Kala Lloyd Work Phone: [facility]- CredibleStart: 07-02-2022 End: 35-59-6719rhaqjpfergCJRQL QADIRFacility:D6Dqvwu: 06-07-2022 End: 58-59-9560Dyytrs outpatient new 30 minutesMay El Rashedy Work Phone: [facility] [place]kyStart: 06-04-2022 End: 41-84-4027upblkxlsawOorj Asaad Other science[employer] Other Start: 28-00-7230Nxxptt outpatient new 45 minutesImad AsaadFPG GastroenterologyStart: 05-31-2022 End: 64-00-1873Rkdmpifny identifierAhmed M Alkaliby Work Phone: [facility] [place]Start: 05-31-2022 End: 61-60-7814Yeciu M Alkaliby Work Phone: [facility] [place]kyStart: 05-18-2022 End: 91-43-5220krrolxybfaXW Kala Lloyd Work Phone: [facility] Work Phone: Start: 05-18-2022 End: 50-52-0920Gskvnctngh RecurringMD Kala Lloyd Work Phone: [facility] Work Phone: Start: 04-12-2022 End: 26-51-2980ysgbeuxkstQAYQU QADIRNothe rehabilitation institute [facility] [employer] Other Start: 17-22-4851Yavauh outpatient visit 25 minutes Nir QadirFPG Nephrology ClydeStart: 04-05-2022 End: 14-76-2305qsleztsrbuCPXYN QADIRFacility:C7Rplqa: 02-07-2022 End: 83-04-1299avyiwsozatUqvuzqrn A BrownFacility:FTMCStart: 02-07-2022 End: 78-94-8628Dek Drop offNicleola Pires [facility] Start: 02-05-2022 End: 00-56-0625vmfijyyqazXadwfejq A BrownFacility:FTMCStart: 02-05-2022 End: 16-76-5354Zgsqymv encounter procedureNicholas A Filiberto [facility] Start: 01-08-2022 End: 33-53-7361hkbbymrhmaSnkhunwf A BrownFacility:FTMCStart: 01-08-2022 End: 41-56-0005Ipdrqkq encounter procedureNicleola Pires [facility] Start: 09-14-2021 End: 53-87-3752vavgdwqzqoYfxiq Danis Other [place] [employer] Other Start: 74-52-8491Ubndqm outpatient visit 25 minutes Nir QadirFPG Nephrology ClydeStart: 09-12-2021 End: 87-78-0644lunvqyuhzeEIHCZ QADIRFacility:G3Armvp: 08-30-2021 End: 58-35-2615djreztjjczBR DOCTOR MISCFacility:H1 Procedures DateProcedureProcedure DetailPerforming ClinicianStart: 16-24-8610XNCH LIVER PANELGeneric External Data ProviderStart: 25-11-9741DGP DEPAKENE/ VALPROIC ACID Generic External Data ProviderStart: 47-67-0855Stgiykdyzu glycosylated a1c Laverne Porter DO Work Phone: Start: 83-50-8274Ebvzf loclzd lesion retina 1/> sess pcSameer Al MarisaikiStart: 87-84-6375Utijs loclzd lesion retina 1/> sess pcSprecious Flower MarisaikiStart: 10-13-2024 End: 53-96-1353Yhujgwuohlr angrph w/multiframe i&r uni/biSandraekem Mundo Lopes MD Start: 22-00-5185Lnbiwhwfse glycosylated s0mJbjaKala Lloyd MD Work Phone: Start: 01-28-3284EBFJGJNVPHCRH, FRAC., PL. FREEGeneric External Data ProviderStart: 67-13-6221QQT BASIC METABOLIC PANELGeneric External Data ProviderStart: 06-23-2024 End: 57-20-6940Deeaizzjkjzm ophthalmic imaging retinaSprecious Jensentatiana MDStart: 59-06-9578DZUY CBC WITH PLATELET NO DIFFERENTIALGeneric External Data Provider Start: 10-27-4559AgyrlyahytxWyvyi Sabbagh MD Work Phone: Start: 71-48-8528Fkpatngt blood count with white cell differential, automatedKala Lloyd MD Work Phone: Start: 05-58-2778Nfauulaxnr glycosylated j3dSnalKala Lloyd MD Work Phone: Start: 69-73-6356Wamyqdmh blood count with white cell differential, Richardson Lloyd MD Work Phone: Start: 75-13-0149Mgulqtalwsspc metabolic panelKala Lloyd MD Work Phone: Start: 02-25-2024 End: 69-98-4226Zqgtnvhuarwf ophthalmic imaging retinaSprecious Flower Moses MDStart: 42-02-0917Fpdxbv Photos No ChargeSameer Mundo MosesStart: 02-25-2024 End: 58-44-0011Yzrguo Photos No Charge BilateralSameer Mundo Moses MDStart: 79-60-0796Ofuwqmpulm glycosylated u7pGbqwlbu Avtar Caity MISHRA Work Phone: Start: 58-84-8917QPO DEPAKENE/ VALPROIC ACIDGeneric External Data ProviderStart: 48-10-5480NOER CBC WITH PLATELET NO DIFFERENTIAL Generic External Data ProviderStart: 24-71-7487C-ray of lumbar spine, six views including bending viewsCAROLN Kayliemariah Chavez Work Phone: Start: 09-08-6899FsapbobobrhZvjqgqrdht Chicho [facility] Work Phone: Start: 04-04-2023 End: 90-67-5461Ijmrhbqukprc ophthalmic imaging Phillip Ford MDStart: 47-91-2454Wdc routine ecg w/least 12 lds w/i&rRobert Keagan Dykes MD Work Phone: Start: 09-27-2022 End: 32-89-4645Akuudcnvanxz ophthalmic imaging Phillip Ford MDStart: 74-84-8081EbsjarmzkxzLbukmhzc Brown DPM Work Phone: Start: 55-38-4834Zfsoxgneno elastography of liverMD Kala Lloyd Work Phone: Start: 53-11-4261Dkqiefti tomography of abdomen and pelvis with contrastMD Kala Lloyd Work Phone: Start: 42-34-3787Tqevvfc of total hysterectomyHx of total hysterectomyEliazar Pires DPM Work Phone: Start: 59-20-2544Wfszdr photon emission computed tomography of parathyroidMD Kala Lloyd Work Phone: Start: 13-85-7060JoijglvmnhgutypnkdunudxkboBZ Kala Lloyd Work Phone: Start: 06-07-2022 End: 16-30-2615Txgwfgthsxdl ophthalmic imaging Phillip Ford MDStart: 06-07-2022 End: 15-11-5534Nkqpyl Photos No Charge BilateralSavaldez Ford MDStart: 78-24-1687FftnfgnpsfxRdathrsh Brown DPM Work Phone: Plan of Treatment DateCare ActivityDetailAuthorStart: 72-36-4348Ayqcoftdc for malignant neoplasm of colonNOMS HealthcareStart: 53-96-8391Abidqpx ScreeningTobacco Screening [facility] SystemStart: 49-94-3384Wspkjat ScreeningTobacco Screening [facility] SystemStart: 99-88-0377Tcpwguz ScreeningTobacco Screening [facility] SystemStart: 93-53-0063Fnkvs BMI ScreeningAdult BMI Screening [facility] SystemStart: 84-20-1452Nflkfpf ScreeningTobacco Screening [facility] SystemStart: 35-18-3893Cbraiz Use: DiabeticStatin Use: Diabetic [facility] Centertart: 65-04-4688Weusczk ScreeningTobacco Screening [facility] Centertart: 06-28-2025 End: 78-26-4007Vcitazd encounter rhcdpiggc27/20/2026 2:00 PM EDT Office Visit [facility] [address] [place] [address] Danii Manley MD [address] [place] [address] NOMPamela [facility]oz EndocrinologyStart: 66-04-3387Cwsgarlh screeningDiabetes: Retinopathy ScreeningNOMS HealthcareStart: 08-48-7349Wkgpdfxdx for malignant neoplasm of breastMammogramNOMS Healthcare Start: 20-31-5022Uffqimp ScreeningTobacco ScreeningProMedica Health SystemStart: 63-08-8728Qjtmdhi ScreeningTobacco ScreeningFostoria City Hospitalca Health SystemStart: 27-73-6807Solfhhclbi A1c measurementDiabetes: Hemoglobin C6MWTTI Healthcare Start: 03-02-2025 End: 49-67-1457Oarsztd encounter gyaucayyx12/23/2025 1:00 PM EST Office Visit [facility] [address] [place] [address] Laverne Porter, [address] [place] [address] N[facility] 230 Start: 65-01-1873Lromvbnv screeningDiabetes: Retinopathy ScreeningNOAK HealthcareStart: 02-02-2025 End: 45-96-9175Dezyeeh encounter procedureNOMS FNR FMStart: 01-21-2025 End: 49-14-3231Yzjpkax encounter gbabcjodc19/13/2025 3:20 PM EST Office Visit [facility] [address] [place] [address] Eliazar Pires, DPAvtar [address] [facility] [address] [place] [address] NOMS [facility] PODIATRYStart: 96-01-1380Kcootdb Screening Tobacco ScreeningFostoria City Hospitalca [facility] SystemStart: 01-11-2025 End: 87-82-0102eoguqctcvg95/03/2025 3:30 PM EST Treatment [facility] [address] [place], [id number] Sumi Cottrell PTANOMS [place] Physical TherapyStart: 12-31-2024 End: 37-12-7439ljtpjkwnhvHMSR [place] Physical TherapyComment on above:Arrived Start: 83-95-9086Yiyik screening for proteinDiabetes: Urine Protein Screening [facility] HealthcareStart: 12-28-2024 End: 437928-efqlddsniimeqj D3 [Mass/volume] in Serum or PlasmaVitamin D 25 hydroxy Total Lab Routine Hypercalcemia Vitamin D deficiency Expected: 12/28/2024 (Approximate), Expires: 12/28/2025NOAK HealthcareComment on above: Expected: 12/28/2024 (Approximate), Expires: 12/28/2025Start: 12-28-2024 End: 95-43-2617Wfcgidikc [Mass/volume] in Serum or PlasmaMagnesium Lab Routine Hypercalcemia Hypomagnesemia Expected: 12/28/2024 (Approximate), Expires: 12/10NOAK Healthcare Work Phone: Comment on above:Expected: 12/28/2024 (Approximate), Expires: 12/28/2025Start: 12-28-2024 End: 96-21-9359Tnhuulsodk.intact and Calcium panel - Serum or PlasmaPTH, intact and calcium Lab Routine Hypercalcemia Abnormal kidney function Expected: 12/28/2024 (Approximate), Expires: 12/28/2025NOMS HealthcareComment on above: Expected: 12/28/2024 (Approximate), Expires: 12/28/2025Start: 12-28-2024 End: 98-07-8276Reqql function panelRenal function panel Lab Routine Hypercalcemia Expected: 12/28/2024 (Approximate), Expires: 12/28/2025NOMS HealthcareComment on above:Expected: 12/28/2024 (Approximate), Expires: 12/28/2025Start: 12-28-2024 End: 90-49-2327Upemscj encounter procedureNOMS SH ENDOCRINOLOGYComment on above: ArrivedStart: 12-22-2024 End: 70-32-2074iyrsfbiwunALCR [place] Physical TherapyComment on above:Piriformis syndrome of left side (Primary Dx)Start: 12-16-2024 End: 93-14-3687Ugvhfgpf Hrakedu9712/16/2024 1:30 PM EDT Clinical Support [facility] [address] [place] [address] Lindy Valentino, [facility] [address] [place], [place] [address] [facility] HealthStart: 07-90-3069Gaotd BMI ScreeningAdult BMI ScreeningProMedica Health SystemStart: 45-75-3785Wewtnbg ScreeningTobacco ScreeningProMedica Health SystemStart: 12-09-2024 End: 58-56-5367vxvnwkrmzhEHMP [place] Physical TherapyComment on above:Piriformis syndrome of left side (Primary Dx)Start: 12-08-2024 End: 80-84-4057wozulluaapNGIN [place] [facility] TherapyStart: 12-03-2024 End: 46-04-4617zebodtjzra74/25/2025 2:30 PM EDT Treatment [facility] [address] [place], [id number] Claire Palmer PTANOMS [place] Physical TherapyStart: 12-01-2024 End: 14-56-4396Owmtnax encounter jrjmazmob58/23/2025 2:30 PM EDT Office Visit [facility] [address] [place] [address] Laverne Porter, [address] [place] [address] [facility] 230 Start: 12-01-2024 End: 25-28-9879twvhemiteq77/23/2025 12:00 PM EDT Treatment [facility] [address] [place] [address] Sumi Cottrell PTANOMS [place] Physical TherapyStart: 11-27-2024 End: 76-62-8439Imcryek encounter procedureN[facility] 230Start: 11-25-2024 End: 78-86-7427ancwwagfft05/17/2025 2:00 PM EDT Treatment [facility] [address] [place], [id number] Sumi Cottrell PTANOMS [place] Physical TherapyStart: 11-24-2024 End: 15-90-8695Wigajdlf Uvxiijq9611/24/2024 1:00 PM EDT Clinical Support [facility] [facility] [address] [place] [address] Lindy Valentino, [facility] [address] [place], [place] [address] NOMPamela [place] [facility] HealthStart: 11-17-2024 End: 74-65-7804Hbbsuzm encounter igcdjkirh32/09/2025 2:30 PM EDT Office Visit [facility] [address] [facility] [place] [address] Magalie Green, TAYLER [address] [facility] [place] [address] [facility] Pain Management ClinicStart: 11-16-2024 End: 68-84-7069izoeedgsgc58/08/2025 1:30 PM EDT Treatment [facility] [address] [place], [id number] Sumi Cottrell PTANOMS [place] Physical TherapyStart: 11-12-2024 End: 94-81-3351Clubgjt encounter procedureNOMS CI PODIATRYComment on above: Diabetes 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 polyneuropathy, with long-term current use of insulin (HCC) (Primary Dx); Pain due to onychomycosis of toenails of both feet; Metatarsalgia, left footStart: 60-69-0362Tapdwutcu vaccinationNOAK Healthcare Start: 11-06-2024 End: 29-55-6845smvlknhyce26/29/2025 1:00 PM EDT Treatment [facility] [address] [place], [id number] Sumi Cottrell PTANOMS [facility] Physical TherapyStart: 28-28-3506Fxeaoys, Louella 3-4(3) Weeks PRP [facility] Work Phone: Start: 11-02-2024 End: 83-45-0040wwpgnpzwovVRII [place] Physical TherapyComment on above:Arrived Start: 34-58-8147Calnzjdyqi A1c measurementDiabetes: Hemoglobin W8SREII HealthcareStart: 10-28-2024 End: 12-99-3915ltifkhtcskFIBP [place] Physical TherapyComment on above:Arrived Start: 94-74-3443Bcpjamrg screeningDiabetes: Retinopathy ScreeningNOAK HealthcareStart: 43-74-3289Ezjxsma ScreeningTobacco ScreeningSouthwest General Health Center SystemStart: 10-21-2024 End: 40-90-0546uxrjlkixahVZJK CI PTComment on above:Piriformis syndrome of left sideStart: 57-03-8701Pbqwlln cessation educationTobacco cessation counselingCVP PhysiciansStart: 10-08-2024 End: 92-40-6201Vxqaoba encounter bowsljuzd17/31/2025 2:00 PM EDT Office Visit [facility] [address] [place] [address] Magalie Green PA [address] [facility] [place], [place] [id number] [facility] Pain Management ClinicStart: 09-25-2024 End: 19-03-3038Fdtubbotn to same day surgery [facility] - Pain ProceduresComment on above:INJECTION BLOCK SACROILIAC JOINT [10745 (CPT )]Start: 09-25-2024 End: 82-26-9353Sjkehh si joint arthrgrphy&/anes/steroid w/imaINJECTION BLOCK SACROILIAC JOINT Disorder of sacrum 09/25/2024 2:30 PM [facility]DLuther[facility] SystemStart: 51-05-7467Xqsjzhloac hospital visit by dxjqoracy69/18/2025 2:30 PM EDT Hospital Encounter [facility] Pain Procedures [address] [place] [address] Reymundo Giron MD [address] [place] [address] [facility] - Pain ProceduresStart: 94-60-3709Yevqrdn, Louella 3mo DFE OCT FA ODCVP Physicians Work Phone: Start: 09-17-2024 End: 62-66-7672Qqicqow encounter ezixndlvk62/10/2025 2:30 PM EDT Office Visit [facility] [address] [place] [phone] Magalie Green PA [address] [place] [address] [facility] Centertart: 09-09-2024 End: 40-27-5528Nnoogey encounter mutvuilbk55/02/2025 1:20 PM EDT Office Visit [facility] [address] [place] [address] Kala [place] MD [address] [place], [place] [id number] Arrived NOMS FNR FMComment on above:ArrivedStart: 75-42-3820Wjzwluycv vaccination Influenza Vaccine (#1)NOMS HealthcareComment on above:Postponed from 11/10/2023 (Insurance / Financial)Start: 09-03-2024 End: 99-98-1783Mftufiy encounter procedureNOMS CI PODIATRYComment on above: Diabetes 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 polyneuropathy, with long-term current use of insulin (HCC) (Primary Dx); Pain due to onychomycosis of toenails of both feet; Metatarsalgia, left footStart: 09-01-2024 End: 57-01-8570Soaxnqxv Mjwiych6409/01/2024 3:00 PM EDT Clinical Support [facility] [address] [place] [phone] Lindy Valentino, [facility] [address] [place] [address] (Wo rk) [facility] BHStart: 08-18-2024 End: 86-22-3709Idnhyrd encounter mshydjwke28/10/2025 1:15 PM EDT Office Visit [facility] [address] [place] [phone] Magalie Green PA [address], [address] [place] [address] [facility] - Pain Management ClinicStart: 08-17-2024 End: 97-97-0537Bgjxzhm encounter wepujmqif71/09/2025 3:00 PM EDT Office Visit [facility] [address] [place] [phone] Laverne Porter, [address] [place] [address] [facility]S [facility] 230Start: 08-06-2024 End: 65-09-9473Smmfgxdj SupportNOMISSOURI DELTA MEDICAL CENTERComment on above:ArrivedStart: 40-13-1865Pkmgjlwwdf A1c measurementDiabetes: Hemoglobin M0OZAPCBothwell [facility] Start: 07-31-2024 End: 68-70-2423Jvuydwcuu to same day surgery abkkzr8007/31/2024 10:09 AM EDT - 07/31/2024 10:17 AM EDT Surgery [facility] - [facility] Procedures [address] [facility] [place] [phone] Reymundo Giron MD [address] [place] [address] INJECTION BLOCK EPIDURAL CAUDAL STEROIDProMedica [facility] [place] - Pain ProceduresComment on above:INJECTION BLOCK EPIDURAL CAUDAL STEROIDStart: 07-31-2024 End: 32-75-2299SGTDFUAQZ BLOCK EPIDURAL CAUDAL STEROIDINJECTION BLOCK EPIDURAL CAUDAL STEROID Spinal stenosis of lumbar region with neurogenic claudication 07/31/2024 10:09 AM [facility] SystemStart: 47-81-6051Zhobcqzeno hospital visit by jarlbfosx20/23/2025 10:09 AM EDT Hospital Encounter [facility] Pain Procedures [address] [place] [place], [place] [phone] Reymundo Giron MD [address] [place] [address] [facility] - Pain ProceduresStart: 07-30-2024 End: 99-18-3807Lcsvsab encounter yueerpkwt58/22/2025 2:00 PM EDT Office Visit [facility] [address] [place] [phone] Kala Lloyd MD [address] [place] [facility] [place] [address] N[facility]S [facility] FMStart: 07-02-2024 End: 11-03-2063Iazmlzi encounter nbesiyozu47/24/2025 2:15 PM EDT Office Visit [facility] [address] [place] [phone] Magalie Green PA [address] [facility], 2nd [place] [address] [facility] - Pain Management ClinicStart: 06-29-2024 End: 201924-yumzoffwshsjmr D3 [Mass/volume] in Serum or PlasmaVitamin D 25 hydroxy Total Lab Routine Hypercalcemia Expected: 06/29/2024 (Approximate), Expires: 06/29/2025[facility] CenterComment on above:Expected: 06/29/2024 (Approximate), Expires: 06/29/2025Start: 06-29-2024 End: 14-60-5087BWKYXLOYLOZ/PLASMA RENIN ACTIVITY RATIO, LC/MS/MS ALDOSTERONE/PLASMA RENIN ACTIVITY RATIO, LC/MS/MS Lab Routine Adrenal nodule (CMS/HCC) Expected: 06/29/2024 (Approximate), Expires: 06/29/2025[facility] Comment on above:Expected: 06/29/2024 (Approximate), Expires: 06/29/2025Start: 06-29-2024 End: 96-13-9512Hhtar metabolic 1998 panel - Serum or PlasmaBasic metabolic panel Lab Routine Adrenal nodule (CMS/HCC) Expected: 06/29/2024 (Approximate), Expir es: 06/29/2025[facility] HealthcareComment on above:Expected: 06/29/2024 (Approximate), Expires: 06/29/2025Start: 06-29-2024 End: 52-94-2143Zhgtyhpp AMCortisol AM Lab Routine Adrenal nodule ([facility]) Expected: 06/29/2024 (Approximate), Expires: 06/29/2025[facility] HealthcareComment on above:Expected: 06/29/2024 (Approximate), Expires: 06/29/2025Start: 06-29-2024 End: 36-99-0073Bixatlmdf [Mass/volume] in Serum or PlasmaMagnesium Lab Routine Hypercalcemia Expected: 06/29/2024 (Approximate), Expires: 06/29/2025[facility] Work Phone: Comment on above:Expected: 06/29/2024 (Approximate), Expires: 06/29/2025Start: 06-29-2024 End: 85-94-2344Nsxmuniancaln PlasmaMetanephrines Plasma Lab Routine Adrenal nodule ([facility]) Expected: 06/29/2024 (Approximate), Expires: 06/29/2025[facility] HealthcareComment on above:Expected: 06/29/2024 (Approximate), Expires: 06/29/2025Start: 06-29-2024 End: 39-11-7713Kbfiruujex.intact [Mass/volume] in Serum or PlasmaPTH, intact Lab Routine Hypercalcemia Expected: 06/29/2024 (Approximate), Expires: 06/29/2025 NOMS HealthcareComment on above:Expected: 06/29/2024 (Approximate), Expires: 06/29/2025Start: 06-29-2024 End: 37-08-5601Qigkh function panelRenal function panel Lab Routine Hypercalcemia Expected: 06/29/2024 (Approximate), Expires: 06/29/2025[facility] HealthcareComment on above:Expected: 06/29/2024 (Approximate), Expires: 06/29/2025Start: 06-29-2024 End: 06-24-2026Miqymdo encounter procedureNOMS ENDOCRINOLOGYComment on above: ArrivedStart: 06-25-2024 End: 51-48-1537Xpzsmcx encounter qoanxqcqf18/17/2025 4:50 PM EDT Office Visit [facility] [address] [place] [address] Eliazar Pires, DPM [address] [facility] [address] [place] [address] NOMS [facility] PODIATRYStart: 78-62-8023Logbouihdv about tobacco useTobacco cessation counselingCVP PhysiciansStart: 13-00-4293Tvhnx BMI ScreeningAdult BMI ScreeningProKindred Hospital [facility] SystemStart: 08-38-7613Tykcpcg ScreeningTobacco ScreeningProKindred Hospital Limaca Health SystemStart: 42-39-9027Ojsfw BMI ScreeningAdult BMI ScreeningProKindred Hospital [facility] SystemStart: 86-18-0607Bxrxvwa ScreeningTobacco ScreeningFostoria City Hospitalca Health SystemStart: 06-10-2024 End: 61-77-5709Ljctcscn Mpbysiq8706/10/2024 2:00 PM EDT Clinical Support [facility] [address] [place] [phone] Lindy Valentino, [facility] [address] [place] [address] (Wo rk) [facility] BHStart: 05-29-2024 End: 68-07-6573Gkvinruvrdrq / ancillary services managementNOMS [facility] Start: 05-22-2024 End: 31-56-6979Levqkacndgrg / ancillary services rhaadyzanp10/14/2025 4:00 PM EDT Ancillary Procedure [facility] [address] [place] [address] NSMR [facility]INGStart: 05-21-2024 End: 72-35-7408Yxjhdnib SupportNOMS [facility] BHComment on above:ArrivedStart: 05-19-2024 End: 12-23-8904Waqwhxj encounter slakxoalx71/11/2025 3:30 PM EDT Office Visit [facility] [address] [place] [phone] Laverne Porter, DO [address] [place] [address] N[facility]S [facility] 230Start: 97-03-7732Dvamnxq ScreeningTobacco ScreeningFostoria City Hospitalca [facility] SystemStart: 05-14-2024 End: 94-38-2418Xhdyzig encounter czvxplkfy97/06/2025 2:15 PM EST Office Visit [facility] [address] [place] [phone] Magalie Green, TAYLER [address] [facility], 2nd Floor [place], [place] [phone] [facility] - Pain Management ClinicStart: 05-07-2024 End: 15-36-2665Rajlxzh encounter procedureNOMS FNR FMComment on above:Arrived Start: 05-07-2024 End: 01-21-9671Tavmxttn identified in Urine by CultureUrine culture (clean catch) Microbiology Routine Generalized abdominal pain Expected: 05/07/2024 (Ap proximate), Expires: 05/07/2025[facility] HealthcareComment on above:Expected: 05/07/2024 (Approximate), Expires: 05/07/2025Start: 05-07-2024 End: 53-16-9594HZL Breast - bilateral screeningBilateral screening mammogram with tomosynthesis Imaging Routine Encounter for screening mammogram for malignant neoplasm of breast Expected: 05/07/2024, Expires: 07/05/2025[facility] HealthcareComment on above:Expected: 05/07/2024, Expires: 07/05/2025Start: 05-07-2024 End: 48-29-9419Ueuavquxpg complete panel - UrineUrinalysis with reflex microscopic (catheter) Lab Routine Generalized abdominal pain Expected: 05/07 (Approximate), Expires: 05/07/2025[facility] Work Phone: Comment on above:Expected: 05/07/2024 (Approximate), Expires: 05/07/2025Start: 05-05-2024 End: 99-70-4676Wryfxzo encounter ypvqmqgao61/25/2025 2:40 PM EST Office Visit [facility] [address] [place] [phone] Kala Lloyd MD [address] [place] [address] ArrivedNOMS FNR FMComment on above:ArrivedStart: 05-05-2024 End: 07-44-4262EF Abdomen and Pelvis WO contrastCT abdomen pelvis wo IV contrast Imaging STAT Generalized abdominal pain Expected: 05/05/2024, Expires: 05/05/2025[facility] Work Phone: Comment on above:Expected: 05/05/2024, Expires: 05/05/2025Start: 04-30-2024 End: 04-68-9096Nacwrnab SupportNOMS SWS BHComment on above:Bipolar 1 disorder (CMS/HCC)Start: 04-24-2024 End: 74-38-9158Parptvyfy to same day surgery ybitwv9204/24/2024 10:07 AM EST - 04/24/2024 10:14 AM EST Surgery [facility] [address] [place] [address] Reymundo Giron MD [address] [place] [address] INJECTION BLOCK EPIDURAL CAUDAL STEROID [45919 (CPT )][facility] - Pain ProceduresComment on above:INJECTION BLOCK EPIDURAL CAUDAL STEROID [56509 (CPT )]Start: 04-24-2024 End: 92-94-8369Ddr dx/ther sbst intrlmnr lmbr/sac w/img gdnINJECTION BLOCK EPIDURAL CAUDAL STEROID Spinal stenosis of lumbar region with neurogenic claudication 04/24/2024 10:07 AM ESTFREMONT PAINStart: 71-30-5559Ikvuyejskb hospital visit by zitkqjzce59/14/2025 10:07 AM EST Hospital Encounter [facility] [address] [facility] [place] [address] Reymundo Giron MD [address] [place] [address] [facility] - Pain ProceduresStart: 25-51-8235Keehmlzjw for malignant neoplasm of breastMammogram NOMS HealthcareStart: 95-69-8225Zyshgvonqh A1c measurementDiabetes: Hemoglobin S9LLSUF HealthcareStart: 04-20-2024 End: 04-84-4834Nkcjiuk encounter cqaoilspr78/10/2025 1:15 PM EST Office Visit [facility] [address] [place] [phone] Laverne Porter DO [address] [place] [address] [facility] 230Start: 04-15-2024 End: 58-33-6404Twvyvnu encounter qrykuqoux29/05/2025 1:45 PM EST Office Visit [facility] [address] [place] [phone] Live Kwon PA-C [address], [address] [place] [address] [facility] Pain Management ClinicStart: 04-09-2024 End: 82-90-7559Klfalua encounter procedureNOMS CI PODIATRYComment on above: Diabetes 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 polyneuropathy, with long-term current use of insulin ([facility]/HCC) (Primary Dx); Pain due to onychomycosis of toenails of both feet; Metatarsalgia, left footStart: 04-08-2024 End: 56-35-5795Dsxizjju SupportNOMS SWS BHComment on above:ArrivedStart: 04-02-2024 End: 15-26-6843Ravqfmr encounter /23/2025 1:00 PM EST Office Visit [facility] [address] [place] [phone] Magalie Green PA [address], [address] [place] [address] [facility] - Pain Management ClinicStart: 71-48-8969Txwqy BMI Screening Adult BMI ScreeningSouthwest General Health Center SystemStart: 04-47-5451Jcjuasu Screening Tobacco ScreeningAtrium Health Wake Forest Baptist High Point Medical Centertart: 03-26-2024 End: 50-52-8542Pujdmuu encounter wakdsvrcx98/16/2025 3:10 PM EST Office Visit [facility] [address] [facility] [address] [place] [phone] Eliazar Pires DPM [address] [facility] [address] [place] [address] NOMS CI PODIATRYStart: 03-19-2024 End: 90-73-5416Xorjgamx SupportNOMS SWS BHComment on above:ArrivedStart: 25-60-3154Gydtr BMI ScreeningAdult BMI ScreeningSouthwest General Health Center SystemStart: 88-43-2426Suavetv ScreeningTobacco ScreeningProMercy Health [facility] SystemStart: 03-13-2024 End: 27-33-2252Auuoreskr to same day surgery spntgc8303/13/2024 10:00 AM EST - 03/13/2024 10:07 AM EST Surgery [facility] [address] [place] [address] Reymundo Giron MD [address] [place] [address] INJECTION BLOCK SACROILIAC JOINT [19451 (CPT )][facility] - Pain ProceduresComment on above:INJECTION BLOCK SACROILIAC JOINT [16666 (CPT )]Start: 03-13-2024 End: 57-42-8501Zvkqvk si joint arthrgrphy&/anes/steroid w/imaINJECTION BLOCK SACROILIAC JOINT Disorder of sacrum 03/13/2024 10:00 AM ESTFREMONT PAINStart: 12-07-1624Fvhwjykydf hospital visit by koerchfkm34/03/2025 10:00 AM EST Hospital Encounter [facility] [address] [place] [address] Reymundo Giron MD [address], [place] [address] [facility] - Pain ProceduresStart: 38-85-4091Cvcryva ScreeningTobacco Screening [facility] Medical Centertart: 68-16-8271Jkgwsyd cessation educationTobacco cessation counselingCV PhysiciansStart: 01-31-2024 End: 92-26-3671Hrazuvm encounter procedureNOMS FNR FMComment on above:Arrived Start: 88-67-8057Uxmns BMI ScreeningAdult BMI ScreeningKettering Health [facility] Start: 01-23-2024 End: 16-11-6511Pfxmthhc Qzhaydc9301/23/2024 2:00 PM EST Clinical Support [facility] [address] [place] [phone] Lindy Valentino [facility] [address] [place] [address] (Wo rk) N[facility]ISIONStart: 12-97-3893Jpxjd screening for protein Diabetes: Urine Protein ScreeningMOUNTAINSTAR HEALTHCARE HealthcareStart: 03-59-1834Kullaoeczo A1c measurementDiabetes: Hemoglobin G1DYSJY HealthcareStart: 01-21-2024 End: 19-00-9503Zvadfsu encounter tuoubcbsa90/12/2024 12:30 PM EST Office Visit [facility] [address] [place] [address] Magalie Green PA [address], [address] [place], [place] [address] [facility] Pain Management ClinicStart: 01-20-2024 End: 56-92-0442Rmxmqoe encounter procedureNOMS [facility] 230Comment on above:Type 2 diabetes mellitus with peripheral neuropathy (CMS/HCC)Start: 01-16-2024 End: 43-78-2251Auayuvw encounter procedureNOMS CI PODIATRYComment on above: Metatarsalgia, left foot (Primary Dx); Diabetes 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 polyneuropathy, with long-term current use of insulin (CMS/HCC); Pain due to onychomycosis of toenails of both feetStart: 12-30-2023 End: 947562-gamoqrcuscqjpy D3 [Mass/volume] in Serum or PlasmaVitamin D 25 hydroxy Total Lab Routine Vitamin D deficiency Expected: 12/30/2023 (Approximate), Expires: 12/29/2024[facility] Work Phone: Comment on above:Expected: 12/30/2023 (Approximate), Expires: 12/29/2024Start: 12-30-2023 End: 22-77-0400Qnbqhqjuy [Mass/volume] in Serum or PlasmaMagnesium Lab Routine Hypomagnesemia Expected: 12/30/2023 (Approximate), Expires: 12/29/2024NOMS HealthcareComment on above:Expected: 12/30/2023 (Approximate), Expires: 12/29/2024Start: 12-30-2023 End: 65-97-0673Lrqybztoqw.intact [Mass/volume] in Serum or PlasmaPTH, intact Lab Routine Hypercalcemia Expected: 12/30/2023 (Approximate), Expires: 12/29/2024 NOMS HealthcareComment on above:Expected: 12/30/2023 (Approximate), Expires: 12/29/2024Start: 12-30-2023 End: 57-20-8779Gwucc function panelRenal function panel Lab Routine Hypercalcemia Expected: 12/30/2023 (Approximate), Expires: 12/29/2024N[facility]S HealthcareComment on above:Expected: 12/30/2023 (Approximate), Expires: 12/29/2024Start: 12-30-2023 End: 74-73-3664Zsvsjsk encounter /21/2024 1:40 PM EDT Office Visit [facility] [address] [place] [phone] Danii Manley MD [address] [place] [address] [facility] ENDOCRINOLOGYStart: 12-27-2023 End: 64-35-3508Qsntqvnep to same day surgery roxsrw7712/27/2023 1:57 PM EDT - 12/27/2023 2:04 PM EDT Surgery [facility] P rocedures [address] [place] [address] Reymundo Giron MD [address] [place] [address] INJECTION SPINE TRANSFORAMINAL Left 4,5 NRoot[97037 (CPT )][facility] - Pain ProceduresComment on above:INJECTION SPINE TRANSFORAMINAL Left 4,5 NRoot [15480 (CPT )]Start: 12-27-2023 End: 40-32-6934Bqq anes&/strd w/img tfrml edrl lmbr/sac 1 lvlINJECTION SPINE TRANSFORAMINAL Spinal stenosis of lumbar region with neurogenic claudication 12/27/2023 1:57 PM EDTFREMONT PAINStart: 96-23-2586Wgmhkpkulj hospital visit by /18/2024 1:57 PM EDT Hospital Encounter [facility] [address] [place] [address] Reymundo Giron MD [address] [place] [address] [facility] - Pain ProceduresStart: 12-23-2023 End: 25-68-8522Pnospxzn SupportNOMS [facility] DIVISIONComment on above:ArrivedStart: 12-11-2023 End: 62-27-1384Spekykb encounter iixnsxclx75/02/2024 1:30 PM EDT Office Visit [facility] [address] [place] [phone] Live Kwon, MAKAYLA [address], [address] [place] [address] [facility] Pain Management ClinicStart: 12-02-2023 End: 98-26-8279Nvvcwgmo Ufknjet2012/02/2023 2:00 PM EDT Clinical Support [facility] [address] [place] [phone] Lindy Valentino, [facility] [address] [place] [address] (Wo rk) [facility]Start: 11-22-2023 End: 79-81-5575Acilofuoe to same day surgery lptyam0511/22/2023 10:37 AM EDT - 11/22/2023 10:43 AM EDT Surgery [facility] [address] [place] [address] Reymundo Giron MD [address] [place], [place] [phone] INJECTION BLOCK SACROILIAC JOINT Bilateral SI JointProMedica [facility] [place] - Pain ProceduresComment on above:INJECTION BLOCK SACROILIAC JOINT Bilateral SI JointStart: 11-22-2023 End: 31-77-7744WJYNAIULP BLOCK SACROILIAC JOINTINJECTION BLOCK SACROILIAC JOINT Disorder of sacrum 11/22/2023 10:37 AM [facility]ertart: 27-25-6051Zvaffnwjon hospital visit by daxuqrusb35/13/2024 10:37 AM EDT Hospital Encounter [facility] [address] [place] [address] Reymundo Giron MD [address], [place] [address] [facility] - Pain ProceduresStart: 54-42-3586Mnjatyyxg vaccinationNOAK [facility] Start: 11-07-2023 End: 00-31-0811Zehykhy encounter procedureNOMS CI PODIATRYComment on above: Metatarsalgia, left foot (Primary Dx); Diabetes 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 polyneuropathy, with long-term current use of insulin ([facility]); Onychomycosis; Toe pain, bilateralStart: 11-04-2023 End: 44-97-3421Qnwhmegm Ziybvvy7311/04/2023 2:00 PM EDT Clinical Support [facility] [address] [place] [phone] Lindy Valentino, [facility] [address] [place] [address] (Wo rk) ArrivedDELTA COMMUNITY MEDICAL CENTERComment on above:ArrivedStart: 95-90-7493Caymmopi screeningDiabetes: Retinopathy ScreeningNOAK HealthcareStart: 77-43-1288Dixlwjwcc vaccinationInfluenza Vaccine (#1)NOMS HealthcareComment on above:Postponed from 11/09/2022 (Patient Refused)Start: 08-14-2023 End: 30-50-1445Qbcmkwp encounter vqsguoadt94/05/2024 12:45 PM EDT Office Visit [facility] [address] [place] [address] Live Kwon PA-C [address], [address] [place] [address] [facility] Pain Management ClinicStart: 64-13-3807Kpkhifjyuw hospital visit by nznwqpguq30/31/2024 Hospital Encounter [facility] Procedures [address] [place] [address] Reymundo Giron MD [address] [facility] [place] [address] [facility] - Pain ProceduresStart: 07-12-2023 End: 10-91-5297Tcdssmwjp to same day surgery owcmji1007/12/2023 11:00 AM EDT - 07/12/2023 11:11 AM EDT Surgery [facility] [address] [place] [address] Reymundo Giron MD [address] [place], [place] [phone] RADIOFREQUENCY ABLATION SPINAL Left L 2/3, 3/4 [59121 (CPT )][facility] - Pain ProceduresComment on above:RADIOFREQUENCY ABLATION SPINAL Left L 2/3, 3/4 [38396 (CPT )]Start: 07-12-2023 End: 74-06-1271Khfn nrolytc agnt parverteb fct sngl lmbr/sacralRADIOFREQUENCY ABLATION SPINAL Lumbar spondylosis 07/12/2023 11:00 AM EDTFREMONT PAINStart: 18-77-3325Dqizittiha hospital visit by wzessenlz07/03/2024 11:00 AM EDT Hospital Encounter [facility] [address] [place] [address] Reymundo Giron MD [address] [facility] [place] [address] [facility] - Pain ProceduresStart: 07-02-2023 End: 28-36-1900Ddokxgg encounter tjemkqjyf76/23/2024 2:15 PM EDT Office Visit [facility] [address] [place] [phone] Laverne Porter DO [address] [place] [address] [facility] FM 230Start: 73-89-3245Qhraxmkuod A1c measurementDiabetes: Hemoglobin D2GNODG HealthcareStart: 06-28-2023 End: 92-85-6504Obnvtmabm to same day surgery fbizrf0406/28/2023 11:00 AM EDT - 06/28/2023 11:11 AM EDT Surgery [facility] [address] [place] [address] Reymundo Giron MD [address], [place] [phone] RADIOFREQUENCY ABLATION SPINAL Right L 2/3 3/4 [94972 (CPT )][facility] - Pain ProceduresComment on above:RADIOFREQUENCY ABLATION SPINAL Right L 2/3 3/4 [67714 (CPT )]Start: 06-28-2023 End: 66-26-5342Lgne nrolytc agnt parverteb fct sngl lmbr/sacralRADIOFREQUENCY ABLATION SPINAL Lumbar spondylosis 06/28/2023 11:00 AM EDTFREMONT PAINStart: 59-34-6294Sreaibqwho hospital visit by kjijttmow17/19/2024 11:00 AM EDT Hospital Encounter [facility] Procedures [address] [place] [address] Reymundo Giron MD [address], [place] [address] [facility] - Pain ProceduresStart: 06-20-2023 End: 75-12-0601Cyhvtna encounter xspqzxute69/11/2024 2:00 PM EDT Office Visit [facility] [address] [place] [address] Eliazar Pires, DPM [address] [facility] [address] [place] [address] N[facility] PODIATRYStart: 06-12-2023 End: 63-83-7523Xhkfuyz encounter xpjrlevkg39/03/2024 10:45 AM EDT Office Visit [facility] [address] [place] [address] Live Kwon, PA-C [address] [place] [address] [facility]: 04-17-2023 End: 46-84-0829Uieyijo encounter [email or web address]/07/2024 2:30 PM EST Office Visit [facility] [address] [place] [address] Live Kwon, PA-C [address] [place] [address] [facility]: 04-15-2023 End: 39-83-9024Vxhoubwk Kqwzxnf9304/15/2023 11:00 AM EST Clinical Support [facility] [address] [place] [address] Lindy Valentino, [facility] [address] [place] [address] (W ork) [facility] BHStart: [id number] cessation education Tobacco cessation counselingCVP PhysiciansStart: 04-01-2023 End: 97-61-8160Vfwsebo encounter procedureAv[facility] - [facility] ImagingStart: 03-29-2023 End: 94-88-2603Afmyhfaih to same day surgery cteceg4803/29/2023 10:34 AM EST - 03/29/2023 10:40 AM EST Surgery [facility] - Pain Procedures [address] [place] [address] Reymundo Giron MD [address], [place] [id number] INJECTION BLOCK NERVE MEDIAL BRANCH Bilat L2/3, 3/4 [95562 (CPT )][facility] - Pain ProceduresComment on above:INJECTION BLOCK NERVE MEDIAL BRANCH Bilat L 2/3, 3/4 [34579 (CPT )]Start: 03-29-2023 End: 56-20-3196Uzd dx/ther agt pvrt facet jt lmbr/sac 1 levelINJECTION BLOCK NERVE MEDIAL BRANCH Lumbar spondylosis 03/29/2023 10:34 AM ESTFREMONT PAINStart: 49-83-3012Sgjjmzdskr hospital visit by physician[facility] - Pain ProceduresStart: 03-29-2023 End: 50-48-4662Meylspd encounter tngaoaspl77/19/2024 8:55 AM EST Appointment [facility] - Radiology [address] [place] [address] Reymundo Giron MD [address] [place] [address] [facility] - RadiologyStart: 03-27-2023 End: 27-90-7186Pohweex encounter procedureAvita [facility] - Stress ImagingStart: 03-22-2023 End: 63-09-5537Fzbef metabolic 2000 panel - Serum or PlasmaBasic Metabolic Panel Lab Routine Primary hypertension Familial hypercholesterolemia Chest pain, uns pecified type Abnormal EKG Expected: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 Kaylie Chavez APRN, TELEPHOTO INSTALLER Kala Lloyd MD~ Subjective Date/Time of Service: [...] & no additional complaints except as documented [facility] - Medical History Medical History: Medical [...] Type: None Social History Comments: [place] Medications & Allergies Allergies bee pollen [...] be discharged from Hematology, see as needed inthe future. - Time with Patient Time Spent with Patient (Follow Up Visit): Less than 20 minutes Coordination of Care & Counseling Time: Greater than 50% of time spent with patient was for coordination of care (as documented) and [id number] counseling of patient and/or family. Dictated By: Josh Bhatia MD DD/ 19 Signed By: <Electronically signed by Josh Bhatia MD> 07/31/208 [facility] Work Phone: 1(591) 381-741202-16-2021 Consult note Author Josh Bhatia [facility] April 26, 2020 3:37pmNote Date/TimeFebruary 2020 3:[facility] [place] [address] Hem/Onc Consult Note - OP Signed with Addenda Patient: Keya Ley MR#: [id number] : 1970 Acct:[id number] Age/Sex: 49 / F Type: REG RCR Copies to: Kaylie Chavez APRN, TELEPHOTO INSTALLER Kala Lloyd MD~ ADDENDUM1 Flow cytometry showed [...] Referring Provider/PCP: Referring Provider: Kaylie Chavez APRN, RECRUITING OPERATIONS CONSULTANT-C PCP: Kala Lloyd MD - History of [...] normal differential. In January ALT was 120, herwhite count was elevated, 13.7, with mild absolute [...] chills, or lymphadenopathy. She denied active infection. [facility] - Medical History Medical History: Medical [...] Type: None Social History Comments: lives in [facility] Home Medications & Allergies Allergies bee [...] pink and moist. The oralmucosa is moist andclear. No oral thrush. NECK: Supple and symmetric. [...] platelet 272, neutrophils 55.9%, lymphocytes 37%, absolute [id number] CBC 02/22/2020 WBC 12.6, Hgb 16.5, MCV 88.6, platelets 287, neutrophils 58.7%, lymphocytes 34.4%, absolute lymphocyte 4334 CBC, 02/01/2020 WBC 13.7, Hgb 15.7, platelet 260, neutrophils 59%, lymphocytes 33.6%, [id number] Assessment and Plan (1) Leukocytosis Qualifiers: Leukocytosis [...] for coordination of care (as documented) and [id number] counseling of patient and/or family. Dictated By: Josh Bhatia MD DD/ 1534 Signed By: <Electronically signed by Josh Bhatia MD> 04/22/20 1544 [facility] Work Phone: Consult note* Clinical Note Date No Information [facility] Work Phone: Discharge summary* Clinical Note Date No Information [facility] Work Phone: Evaluation + Plan note No [facility] this [facility] Diagnosis Onset Date Resolution Status Hypercalcemia acuteCOPD (chronic obstructive pulmonary disease)chronicDiabetes mellituschronic LeukocytosischronicLumbar degenerative disc diseasechronic [facility] Work Phone: evaluation note* Diagnosis Onset Date Resolution Status COPD (chronic obstructive pulmonary dise ase) chronicDiabetes mellituschronicLumbar degenerative disc diseasechronic HypercalcemiaresolvedLeukocytosisresolved [facility] Work Phone: Evaluation note* Diagnosis Metatarsalgia, left foot- Primary Diabetes 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 polyneuropathy, with long-term current use of insulin ([facility]) Onychomycosis Dermatophytosis of nail Toe pain, right Pain in soft tissues of limb Toe pain, left Pain in soft tissues of limb [facility] Diagnosis Onset Date Resolution Status Adrenal nodule acuteCKD (chronic kidney disease) stage 3, GFR 30-59 ml/minacute [id number] 2 diabetes mellitus with diabetic chronic kidney diseaseacuteHypercalcemiaresolved [facility] Work Phone: Evaluation noteNo assessment information available [facility] Work Phone: evaluation note* Diagnosis Onset Date Resolution Status History of lumbar fusion acuteLumbar stenosisacutePiriformis syndrome of left sideacuteAdrenal nodule acuteCKD (chronic kidney disease) stage 3, GFR 30-59 ml/minacute [id number] 2 diabetes mellitus with diabetic chronic kidney diseaseacuteHypercalcemiaresolved [facility] Work Phone: Evaluation note* Diagnosis Diabetic nephropathy associated with type 2 diabetes mellitus (HCC) ([facility]/HCC)- Primary Type 2 diabetes mellitus with peripheral neuropathy ([facility]/HCC) Diabetic retinopathy of 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 associated with type 2 diabetes mellitus, unspecified retinopathy severity ([facility]/HCC) Severe obesity (BMI 35.0-39.9) with comorbidity (CMS/HCC) Long-term insulin use ([facility]/HCC) Type 2 diabetes mellitus with stage 3a [...] 1 disorder (CMS/HCC) [facility]* Diagnosis Diabetic nephropathy associated [...] kidney function study [facility] [...] peripheral neuropathy (CMS/HCC) documented in this encounter [facility]* Diagnosis Diabetic nephropathy associated with [...] insulin (HCC) (CMS/HCC) documented in this encounter [facility]* Diagnosis Diabetic nephropathy associated with [...] with long-term current use of insulin (HCC) ([facility]/HCC) Bipolar 1 disorder (CMS/HCC) documented in this encounter [facility]* Diagnosis Diabetic nephropathy associated with [...] with long-term current use of insulin (HCC) ([facility]/HCC) Type 2 diabetes mellitus with peripheral neuropathy (CMS/HCC) 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 associated with type 2 diabetes mellitus (CMS/HCC)- Primary Type 2 diabetes mellitus with peripheral neuropathy (CMS/HCC) Type 2 diabetes mellitus with stage 3a chronic kidney disease, with long-term current use of insulin (HCC) ([facility]/HCC) Acute bronchitis, unspecified organism- Primary Chronic diarrhea Diarrhea documented in this encounter [facility]* Diagnosis Bipolar 1 disorder ([facility]/HCC) Metatarsalgia, left foot- Primary Diabetes 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 polyneuropathy, with long-term current use of insulin ([facility]) Onychomycosis Dermatophytosis of nail Toe pain, bilateral documented in this encounter [facility]* Diagnosis Metatarsalgia, left foot- Primary Diabetes 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 polyneuropathy, with long-term current use of insulin (CMS/HCC) Onychomycosis Dermatophytosis of nail Toe pain, bilateral documented in this encounter [facility]* Diagnosis Bipolar 1 disorder (CMS/HCC) documented in this encounter [facility]* Diagnosis Seasonal allergic rhinitis due to pollen documented in this encounter [facility]* Diagnosis Diabetic nephropathy associated [...] Metatarsalgia, left foot documented in this encounter [facility]* Diagnosis Spinal stenosis of lumbar region with neurogenic claudication- Primary Spinal stenosis of lumbar region with neurogenic claudication- Primary Spinal stenosis of lumbar region with neurogenic claudication documented [facility]* Diagnosis Diabetic nephropathy associated with [...] Metatarsalgia, left foot documented in this encounter [facility]* Diagnosis Diabetic nephropathy associated with [...] of both feet [facility] Lumbar spondylosis- Primary Lumbosacral spondylosis without myelopathy Chest pain, unspecified type- Primary Primary hypertension Unspecified essential hypertension Familial hypercholesterolemia Abnormal EKG Nonspecific abnormal electrocardiogram (ECG) (EKG) Lumbar spondylosis Lumbosacral spondylosis without myelopathy [facility] Diagnosis Lumbar spondylosis- Primary Lumbosacral spondylosis without myelopathy Familial hypercholesterolemia- Primary [facility] Diagnosis Lumbar spondylosis- Primary Lumbosacral spondylosis without myelopathy Lumbar spondylosis- Primary Lumbosacral spondylosis without myelopathy Lumbar spondylosis Lumbosacral spondylosis without myelopathy Lumbar spondylosis Lumbosacral spondylosis without myelopathy documented in this encounter [facility]* Diagnosis Lumbar spondylosis- Primary Lumbosacral spondylosis without myelopathy Trochanteric bursitis of left hip Disorder of sacrum Disorders of sacrum Disorder of sacrum- Primary Disorders of sacrum Disorder of sacrum Disorders of sacrum documented in this encounter [facility]* Diagnosis Lumbar spondylosis- Primary Lumbosacral spondylosis without myelopathy Disorder of sacrum Disorders of sacrum Spinal stenosis of lumbar region with neurogenic claudication Spinal stenosis of lumbar region with neurogenic claudication- Primary Spinal stenosis of lumbar region with neurogenic claudication documented in this encounter [facility]* Diagnosis Disorder of sacrum- Primary Disorders of sacrum Disorder of sacrum- Primary Disorders of sacrum Disorder of sacrum Disorders of sacrum documented in this encounter [facility]* Diagnosis Diabetic nephropathy associated with type 2 diabetes mellitus (HCC) ([facility]/HCC)- Primary Type 2 diabetes mellitus with peripheral [...] 1 disorder (CMS/HCC) documented in this encounter [facility]* Diagnosis Diabetic nephropathy associated with [...] Abdominal pain, generalized documented in this encounter [facility]* Diagnosis Diabetic nephropathy associated with [...] Abdominal pain, generalized documented in this encounter [facility]* Diagnosis Diabetic nephropathy associated [...] constipation type- Primary documented in this encounter [facility]* Diagnosis Lumbosacral spondylosis without myelopathy- Primary documented in this encounter [facility]* Diagnosis Diabetic nephropathy associated with [...] of insulin (CMS/HCC) documented in this encounter [facility]* Diagnosis Diabetic nephropathy associated with [...] 1 disorder (CMS/HCC) documented in this encounter [facility]* Diagnosis Diabetic nephropathy associated with [...] Vitamin D deficiency documented in this encounter [facility]* Diagnosis Diabetic nephropathy associated [...] of both feet documented in this encounter [facility]* Diagnosis Diabetic nephropathy associated [...] of adrenal gland documented in this encounter [facility]* Diagnosis Spinal stenosis of lumbar region with neurogenic claudication- Primary Spinal stenosis of lumbar region with neurogenic claudication- Primary Spinal stenosis of lumbar region with neurogenic claudication documented in this encounter [facility]* Diagnosis Diabetic nephropathy associated with [...] 1 disorder (CMS/HCC) documented in this encounter [facility]* Diagnosis Diabetic nephropathy associated with [...] esophagitis Esophageal reflux documented in this encounter [facility]* Diagnosis Diabetic nephropathy associated [...] 1 disorder (CMS/HCC) documented in this encounter [facility]* Diagnosis Disorder of sacrum- Primary Disorders of sacrum Disorder of sacrum- Primary Disorders of sacrum Disorder of sacrum Disorders of sacrum documented in this encounter [facility]* Diagnosis Diabetic nephropathy associated with [...] index (BMI) of35.0 to 35.9 in adult ([facility]-HCC) Diabetes 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 polyneuropathy, with long-term current use of insulin (HCC)- Primary Pain due to onychomycosis of toenails of both feet Metatarsalgia, left foot documented in this encounter [facility]* Diagnosis Diabetic nephropathy associated with type 2 diabetes mellitus (HCC)- Primary Type 2 diabetes mellitus with peripheral neuropathy (HCC) Diabetic retinopathy of 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 associated with type 2 diabetes mellitus, unspecified retinopathy severity (HCC) Severe obesity (BMI 35.0-39.9) with comorbidity ([facility]-HCC) Long-term insulin use (HCC) Type 2 diabetes [...] index (BMI) of35.0 to 35.9 in adult ([facility]-HCC) Metatarsalgia, left foot- Primary Diabetes 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 polyneuropathy, with long-term current use of insulin (HCC) Pain due to onychomycosis of toenails of both feet documented in this encounter [facility]* Diagnosis Diabetic nephropathy associated with type 2 diabetes mellitus (HCC)- Primary Type 2 diabetes mellitus with peripheral neuropathy (HCC) Diabetic retinopathy of 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 associated with type 2 diabetes mellitus, unspecified retinopathy severity (HCC) Severe obesity (BMI 35.0-39.9) with comorbidity ([facility]-HCC) Long-term insulin use (HCC) Type 2 diabetes [...] hyperglycemia, with long-term current use of insulin ([facility]) Class 2 severe obesity due to excess calories with serious comorbidity and body mass index (BMI) of35.0 to 35.9 in adult ([facility]) Piriformis syndrome of left side- Primary documented in this encounter [facility]* Diagnosis Disorder of sacrum- Primary Disorders of sacrum Disorder of sacrum- Primary Disorders of sacrum Disorder of sacrum Disorders of sacrum documented in this encounter [facility]* Diagnosis Lumbosacral spondylosis without myelopathy- Primary documented in this encounter [facility]* Diagnosis Diabetic nephropathy associated with type 2 diabetes mellitus (HCC)- Primary Type 2 diabetes mellitus with peripheral neuropathy (HCC) Diabetic retinopathy of 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 associated with type 2 diabetes mellitus, unspecified retinopathy severity ([facility]) Severe obesity (BMI 35.0-39.9) with comorbidity ([facility]) Long-term insulin use (HCC) Type 2 diabetes [...] index (BMI) of35.0 to 35.9 in adult ([facility]) Piriformis syndrome of left side- Primary Piriformis syndrome of left side- Primary documented in this encounter [facility] HealthcareEvaluation note* Diagnosis Diabetic nephropathy associated with type 2 diabetes mellitus (HCC)- Primary Type 2 diabetes mellitus with peripheral neuropathy (HCC) Diabetic retinopathy of 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 associated with type 2 diabetes mellitus, unspecified retinopathy severity (HCC) Severe obesity (BMI 35.0-39.9) with comorbidity ([facility]) Long-term insulin use (HCC) Type 2 diabetes [...] index (BMI) of35.0 to 35.9 in adult ([facility]) Piriformis syndrome of left side- Primary Piriformis syndrome of left side- Primary documented in this encounter [facility] HealthcareEvaluation note* Diagnosis Diabetic nephropathy associated with type 2 diabetes mellitus (HCC)- Primary Type 2 diabetes mellitus with peripheral neuropathy (HCC) Diabetic retinopathy of 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 associated with type 2 diabetes mellitus, unspecified retinopathy severity (HCC) Severe obesity (BMI 35.0-39.9) with comorbidity ([facility]) Long-term insulin use (HCC) Type 2 diabetes [...] index (BMI) of35.0 to 35.9 in adult ([facility]) Piriformis syndrome of left side- Primary Piriformis syndrome of left side- Primary documented in this encounter [facility] HealthcareEvaluation note* Diagnosis Diabetic nephropathy associated with type 2 diabetes mellitus (HCC)- Primary Type 2 diabetes mellitus with peripheral neuropathy (HCC) Diabetic retinopathy of 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 associated with type 2 diabetes mellitus, unspecified retinopathy severity (HCC) Severe obesity (BMI 35.0-39.9) with comorbidity ([facility]) Long-term insulin use (HCC) Type 2 diabetes [...] index (BMI) of35.0 to 35.9 in adult ([facility]) Piriformis syndrome of left side- Primary Metatarsalgia, left foot- Primary Diabetes 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 polyneuropathy, with long-term current use of insulin ([facility]) Pain due to onychomycosis of toenails of both feet documented in this encounter [facility] HealthcareEvaluation note* Diagnosis Spinal stenosis of lumbar region with neurogenic claudication- Primary documented [facility]* Diagnosis Diabetic nephropathy associated with type 2 diabetes mellitus (HCC)- Primary Type 2 diabetes mellitus with peripheral neuropathy (HCC) Diabetic retinopathy of 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 associated with type 2 diabetes mellitus, unspecified retinopathy severity (HCC) Severe obesity (BMI 35.0-39.9) with comorbidity ([facility]) Long-term insulin use (HCC) Type 2 diabetes [...] index (BMI) of35.0 to 35.9 in adult ([facility]) Piriformis syndrome of left side- Primary Bipolar 1 disorder (HCC) documented in this encounter [facility] HealthcareEvaluation note* Diagnosis Diabetic nephropathy associated with type 2 diabetes mellitus (HCC)- Primary Type 2 diabetes mellitus with peripheral neuropathy (HCC) Diabetic retinopathy of 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 associated with type 2 diabetes mellitus, unspecified retinopathy severity (HCC) Severe obesity (BMI 35.0-39.9) with comorbidity ([facility]) Long-term insulin use (HCC) Type 2 diabetes [...] index (BMI) of35.0 to 35.9 in adult ([facility]) Piriformis syndrome of left side- Primary Piriformis syndrome of left side- Primary Type 2 diabetes mellitus with peripheral neuropathy (HCC) documented in this encounter [facility] HealthcareEvaluation note* Diagnosis Diabetic nephropathy associated with type 2 diabetes mellitus (HCC)- Primary Type 2 diabetes mellitus with peripheral neuropathy (HCC) Diabetic retinopathy of 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 associated with type 2 diabetes mellitus, unspecified retinopathy severity (HCC) Severe obesity (BMI 35.0-39.9) with comorbidity ([facility]) Long-term insulin use (HCC) Type 2 diabetes [...] index (BMI) of35.0 to 35.9 in adult Piriformis syndrome of [...] edema associated with type2 diabetes mellitus (HCC) Class 2 severe obesity due to excess calories with serious comorbidity and body mass index (BMI) of35.0 to 35.9 in adult documented in this encounter [facility] HealthcareEvaluation note* Diagnosis Diabetic nephropathy associated with type 2 diabetes mellitus (HCC)- Primary Type 2 diabetes mellitus with peripheral neuropathy (HCC) Diabetic retinopathy of 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 associated with type 2 diabetes mellitus, unspecified retinopathy severity (HCC) Severe obesity (BMI 35.0-39.9) with comorbidity ([facility]) Long-term insulin use (HCC) Type 2 diabetes [...] index (BMI) of35.0 to 35.9 in adult Piriformis syndrome of [...] edema associated with type2 diabetes mellitus (HCC) Class 2 severe obesity due to excess calories with serious comorbidity and body mass index (BMI) of35.0 to 35.9 in adult Type 2 diabetes mellitus with diabetic polyneuropathy, with long-term current use of insulin (HCC)- Primary Essential (primary) hypertension Unspecified essential hypertension Acute bronchitis, unspecified organism Chronic diarrhea Diarrhea documented in this encounter [facility] HealthcareEvaluation note* Diagnosis Diabetic nephropathy associated with type 2 diabetes mellitus (HCC)- Primary Type 2 diabetes mellitus with peripheral neuropathy (HCC) Diabetic retinopathy of 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 associated with type 2 diabetes mellitus, unspecified retinopathy severity (HCC) Severe obesity (BMI 35.0-39.9) with comorbidity ([facility]) Long-term insulin use (HCC) Type 2 diabetes [...] index (BMI) of35.0 to 35.9 in adult Piriformis syndrome of [...] edema associated with type2 diabetes mellitus (HCC) Class 2 severe obesity due to excess calories with serious comorbidity and body mass index (BMI) of35.0 to 35.9 in adult Piriformis syndrome of left side- Primary documented in this encounter [facility] HealthcareEvaluation note* Diagnosis Diabetic nephropathy associated with type 2 diabetes mellitus (HCC)- Primary Type 2 diabetes mellitus with peripheral neuropathy (HCC) Diabetic retinopathy of 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 associated with type 2 diabetes mellitus, unspecified retinopathy severity (HCC) Severe obesity (BMI 35.0-39.9) with comorbidity ([facility]) Long-term insulin use (HCC) Type 2 diabetes [...] index (BMI) of35.0 to 35.9 in adult Piriformis syndrome of [...] edema associated with type2 diabetes mellitus (HCC) Class 2 severe obesity due to excess calories with serious comorbidity and body mass index (BMI) of35.0 to 35.9 in adult Piriformis syndrome of left side- Primary documented in this encounter [facility] HealthcareEvaluation note* Diagnosis Diabetic nephropathy associated with type 2 diabetes mellitus (HCC)- Primary Type 2 diabetes mellitus with peripheral neuropathy (HCC) Diabetic retinopathy of 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 associated with type 2 diabetes mellitus, unspecified retinopathy severity (HCC) Severe obesity (BMI 35.0-39.9) with comorbidity ([facility]) Long-term insulin use (HCC) Type 2 diabetes [...] index (BMI) of35.0 to 35.9 in adult Piriformis syndrome of [...] edema associated with type2 diabetes mellitus (HCC) Class 2 severe obesity due to excess calories with serious comorbidity and body mass index (BMI) of35.0 to 35.9 in adult Hypercalcemia- Primary Vitamin D deficiency Hypomagnesemia Disorders of magnesium metabolism Abnormal kidney function Nonspecific abnormal results of kidney function study Adrenal nodule (HCC) Benign neoplasm of adrenal gland Benign neoplasm of parathyroid gland documented in this encounter [facility] HealthcareEvaluation note* Diagnosis Diabetic nephropathy associated with type 2 diabetes mellitus (HCC)- Primary Type 2 diabetes mellitus with peripheral neuropathy (HCC) Diabetic retinopathy of 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 associated with type 2 diabetes mellitus, unspecified retinopathy severity (HCC) Severe obesity (BMI 35.0-39.9) with comorbidity ([facility]) Long-term insulin use (HCC) Type 2 diabetes [...] index (BMI) of35.0 to 35.9 in adult Piriformis syndrome of [...] edema associated with type2 diabetes mellitus (HCC) Class 2 severe obesity due to excess calories with serious comorbidity and body mass index (BMI) of35.0 to 35.9 in adult Piriformis syndrome of left side- Primary documented in this encounter [facility] HealthcareHistory and physical note Author Peyton [facility]cheri [facility] July 12, 2022 1:05pmNote Date/TimeMay 2022 1:05pm[place] [address] Gastroenterology H&P Signed Patient: Keya Ley MR#: [id number] : 1970 Acct:[id number] Age/Sex: 51 / F Adm Date: 3 Loc: Room: Type: [facility] Attending Dr: Peyton Hoskins MD Copies to: MD Kaylie Tarango, SEXTON HELPER, TELEPHOTO INSTALLER~ Date of Service: 07/12/2022 HISTORY & PHYSICAL: Patient's history with special attention to the cardiovascular, pulmonary systems and the current problem was reviewed with the patient immediately prior to the procedure. Present medications and doses reviewed in the EMR. Allergies and pertinent laboratory tests were also re viewedat this time in the EMR. The physical [...] Hoskins M.D. Documented By: Peyton Hoskins MD 07/12/221304 Signed By: <Electronically signed by Peyton Hoskins MD> 07/12/22 5455 [facility] Work Phone: History and physical note* Clinical Note Date No Information [facility] Work Phone: History general Narrative - Reported* Type Description Date Medical History DM Medical HistoryChronic Back painMedical HistoryHTNMedical History HypercholesterolemiaMedical HistoryPolycystic Ovarian DiseaseMedical History Chronic bronchitisMedical HistoryMood disorderMedical HistoryAnxietyMedical HistoryRight wrist jammedMedical HistoryPTSD (post-traumatic stress disorder) Medical HistoryDissociative disorder or reaction, unspecifiedMedical History LIVER LESIONSSurgical HistoryProcedure:ORIF left [id number] History Reconstructive left handSurgical HistoryAbdominal LaparoscopySurgical History facet joint injection, low back05/28/2014Surgical Historycomplete hysterectomy 07/11/2015Surgical HistoryhysterectomySurgical HistoryCHOLECYSTOMYSurgical History liver ilatee41/2016Surgical Historycarpal tunnel release rightSurgical History Laparoscopic cholecystectomy04/09/[address] Casillas 01/07/19Surgical HistoryXLIF-Doctor ElskensSurgical Historylow back surgery 08/27/2019Surgical HistoryCOLONOSCOPY AND ESOPHAGUS STRETCHING12/02/2020 Hospitalization [id number] HistorySee past surgical hx sciencebite Other History general Narrative - Reported* Type Description Date Medical History DM Medical HistoryChronic Back painMedical HistoryHTNMedical History HypercholesterolemiaMedical HistoryPolycystic Ovarian DiseaseMedical History Chronic bronchitisMedical HistoryMood disorderMedical HistoryAnxietyMedical HistoryRight wrist jammedMedical HistoryPTSD (post-traumatic stress disorder) Medical HistoryDissociative disorder or reaction, unspecifiedMedical History LIVER LESIONSSurgical HistoryProcedure:ORIF left [id number] History Reconstructive left handSurgical HistoryAbdominal LaparoscopySurgical History facet joint injection, low back05/28/2014Surgical Historycomplete hysterectomy 07/11/2015Surgical HistoryhysterectomySurgical HistoryCHOLECYSTOMYSurgical History liver pipugs47/2016Surgical Historycarpal tunnel release rightSurgical History Laparoscopic cholecystectomy04/09/[address] Casillas 01/07/19Surgical HistoryXLIF-Doctor ElskensSurgical Historylow back surgery 08/27/2019Surgical HistoryCOLONOSCOPY AND ESOPHAGUS STRETCHING12/02/2020urgical HistoryLEFT FOOT SURGERY FOR THE FIRST 3 TOES104/09/2021Hospitalization HistoryDM 2013Hospitalization HistorySee past surgical hx sciencebite Other History general Narrative - Reported* Type Description Date Medical History DM Medical HistoryChronic Back painMedical HistoryHTNMedical HistoryPolycystic Ovarian DiseaseMedical HistoryChronic bronchitisMedical History HypercholesterolemiaMedical HistoryMood disorderMedical HistoryAnxietyMedical HistoryRight wrist jammedMedical HistoryPTSD (post-traumatic stress disorder) Medical HistoryDissociative disorder or reaction, unspecifiedMedical History LIVER LESIONSSurgical HistoryProcedure:ORIF left [id number] History Reconstructive left handSurgical HistoryAbdominal LaparoscopySurgical History facet joint injection, low back05/28/2014Surgical Historycomplete hysterectomy 07/11/2015Surgical HistoryhysterectomySurgical HistoryCHOLECYSTOMYSurgical History liver jmayhm83/2016Surgical Historycarpal tunnel release rightSurgical History Laparoscopic cholecystectomy04/09/[address] Casillas 01/07/19Surgical HistoryXLIF-Doctor ElskensSurgical Historylow back surgery 08/27/2019Surgical HistoryCOLONOSCOPY AND ESOPHAGUS STRETCHING12/02/2020urgical HistoryLEFT FOOT SURGERY FOR THE FIRST 3 TOES104/09/2021Hospitalization HistoryDM 2013Hospitalization HistorySee past surgical hx sciencebite Other Hospital Discharge instructions No data available for this section [facility] Additional Instructions DISCHARGE INSTRUCTIONS FOR [...] NOT operate machinery such as power tools, [employer] mowers, snow blowers, sewing machines, etc. for [...] problems. -Follow up with PCP. -Office number [phone]. [facility] Work Phone: InstructionsNot on filedocumented in this encounter [facility]ructionsNot on filedocumented in this encounter [facility] SystemInstructionsNot on filedocumented in this encounter [facility] SystemInstructionsNot on filedocumented in this encounter [facility] SystemInstructionsNot on filedocumented in this encounter [facility] SystemProgress note No data available for this section [facility]* Clinical Note Date No Information [facility] Work Phone: Reason for referral (narrative)* Reason For Referral No Information [facility] Work Phone: Repfik for visit NarrativePatient here at the request of Dr. Chavez for evaluation & treatment of dysphagia.sciencebite Other Rewulo for visit Narrative* Behavioral Health - Outpatient (Routine) - ClosedSpecialtyDiagnoses / ProceduresReferred By ContactReferred To ContactBehavioral Health Diagnoses Generalized anxiety disorder (CMS/HCC) Procedures ME PSYCHIATRIC DIAGNOSTIC EVALUATION [facility] [address] [place] [address] Phone: tel: fax: [facility] [address] [place] [address] Phone: tel: fax: Referral IDStatusReasonStart DateExpiration DateVisits RequestedVisits [id number]/12/20246/ [facility] HealthcareReason for visit Narrative* Rehabilitation - Outpatient (Routine) - AuthorizedSpecialtyDiagnoses / ProceduresReferred By ContactReferred To ContactPhysical Therapy Diagnoses Piriformis syndrome of left side Procedures ME OFFICE/OUTPATIENT NEW HIGH MDM 60 MINUTES Kala Lloyd MD [address] [place] [address] Phone: tel: fax: Marylou Lay PT Referral IDStatusReasonStletitia DateExpiration DateVisits RequestedVisits [id number] Specialty Services Required / [facility] HealthcareReason for visit Narrative* Rehabilitation - Outpatient (Routine) - AuthorizedSpecialtyDiagnoses / ProceduresReferred By ContactReferred To ContactPhysical Therapy Diagnoses Piriformis syndrome of left side Procedures ME OFFICE/OUTPATIENT NEW HIGH MDM 60 MINUTES Kala Lloyd MD [address] [place] [address] Phone: tel: fax: Marylou Lay BRANNON Referral IDStatusReasonStart DateExpiration DateVisits RequestedVisits [id number] Specialty Services Required [facility] Healthcare Summary Purpose Family History No Family History Records Found Relationship Condition Age at Onset Recorded Date/T rebeka father Diabetes mellitus Unknown NarcissismUnknownRenal failureUnknownChronic obstructive pulmonary disease UnknownHypertensionUnknownLeukemiaUnknownNot SpecifiedRheumatoid arthritis UnknownSciaticaUnknownScoliosisUnknownDiabetes mellitusUnknownCongestive heart failureUnknownPsoriatic arthritisUnknownDepressionUnknownTachycardiaUnknown AsthmaUnknownsisterDiabetes mellitusUnknownCongenital abnormalityUnknown Relationship Condition Age at Onset Recorded Date/T rebeka father Diabetes mellitus Unknown NarcissismUnknownRenal failureUnknownChronic obstructive pulmonary disease UnknownHypertensionUnknownLeukemiaUnknownNot SpecifiedRheumatoid arthritis UnknownSciaticaUnknownScoliosisUnknownDiabetes mellitusUnknownCongestive heart failureUnknownPsoriatic arthritisUnknownDepressionUnknownTachycardiaUnknown AsthmaUnknownsisterDiabetes mellitusUnknownCongenital abnormalityUnknownfamily memberDiabetes mellitusUnknownfatherHistory of strokeUnknownDeceasedUnknownHeart diseaseUnknownFamily history of mental disorderUnknownNot SpecifiedDiabetes mellitusUnknown Relationship Condition Age at Onset Recorded Date/T rebeka father Diabetes mellitus Unknown NarcissismUnknownRenal failureUnknownChronic obstructive pulmonary disease UnknownHypertensionUnknownLeukemiaUnknownmotherRheumatoid arthritisUnknown SciaticaUnknownScoliosisUnknownDiabetes mellitusUnknownCongestive heart failure UnknownPsoriatic arthritisUnknownDepressionUnknownTachycardiaUnknownAsthma UnknownsisterDiabetes mellitusUnknownCongenital abnormalityUnknownauntDiabetes mellitusUnknownfatherHistory of strokeUnknownDeceasedUnknownHeart diseaseUnknown Family history of mental disorderUnknownmotherDiabetes mellitusUnknown Family Member Type Diagnosis Age At Onset Father Problem Diabetes mellitu s SisterProblemDiabetes mellitusMotherProblemCardiovascular diseaseMotherProblem degenerative disorder of maculaMotherProblemDiabetes mellitus Advance Directives No Advanced Directives Records Found [...] Lumbar degenerative disc disease Chief Complaint leukocytosis DysphagiaReason for VisitCOPD (chronic obstructive pulmonary disease) Diabetes mellitus Lumbar degenerative disc disease Hypercalcemia Leukocytosis Chief Complaint leukocytosis Dysphagia E83.52Reason for VisitCOPD (chronic obstructive pulmonary disease) Diabetes mellitus Lumbar degenerative disc disease Hypercalcemia Leukocytosis Chief Complaint leukocytosis Dysphagia E83.52 R63.4 K29.70 Fatty LiverReason for VisitCOPD (chronic obstructive pulmonary disease) Diabetes mellitus Lumbar degenerative disc disease Hypercalcemia Leukocytosis Chief Complaint RENAL F/U Reason for Visit Adrenal nodule CKD (chronic kidney disease) stage 3, GFR 30-59 ml/min [id number] Hypomagnesemia Type 2 diabetes mellitus with diabetic chronic kidney disease Hypercalcemia Chief Complaint RENAL F/UReason for VisitAdrenal nodule CKD (chronic kidney disease) stage 3, GFR 30-59 ml/min [id number] Hypomagnesemia Type 2 diabetes mellitus with diabetic chronic kidney disease Hypercalcemia Chief Complaint m54.50 Chief Complaint BH m54.50 Other intervertebral disc displacement, lumbar Chief Complaint m54.50 Other intervertebral disc displacement, lumbar RENAL 6 MONTH F/UReason for VisitHistory of lumbar fusion Lumbar stenosis Piriformis syndrome of left side Adrenal nodule CKD (chronic kidney disease) stage 3, GFR 30-59 ml/min [id number] Hypomagnesemia Type 2 diabetes mellitus with diabetic [...] 18, 2024 1:5 1pm Reason for Referral SpecialtyDiagnoses / ProceduresReferred By ContactReferred To Contact Diagnoses Spinal stenosis of lumbar region with neurogenic claudication Procedures Case request operating room: INJECTION SPINE TRANSFORAMINAL Left 4,5 NR Live Kwon PA-C [address], [address] [place] [address] Referral IDStatusReasonStart DateExpiration DateVisits RequestedVisits [id number] [id number] / ProceduresReferred By ContactReferred To Contact Diagnoses Disorder of sacrum Procedures Case request operating room: INJECTION BLOCK SACROILIAC JOINT Bilateral SI Joint Live Kwon PA-C [address], [address] [place] [address] Referral IDStatusBelénasonStparis DateExpiration DateVisits RequestedVisits [id number] Review/[id number] / ProceduresReferred By ContactReferred To ContactRehabilitation Diagnoses Lumbar spondylosis Trochanteric bursitis of left hip Disorder of sacrum Live Kwon PA-C [address], [address] [place] [address] [facility] [address] [place] [phone] Referral IDStatusReasonStart DateExpiration DateVisits RequestedVisits [id number] Specialty Services Required /[id number] / ProceduresReferred By ContactReferred To Contact Diagnoses Lumbar spondylosis Procedures Case request operating room: RADIOFREQUENCY ABLATION SPINAL Left L 2/3, 3/4 Live Kwon PA-C [address] [facility], [address] [place] [address] Referral IDStatusReasonStart DateExpiration DateVisits RequestedVisits [id number] Review/[id number] / ProceduresReferred By ContactReferred To Contact Diagnoses Lumbar spondylosis Procedures Case request operating room: RADIOFREQUENCY ABLATION SPINAL Right L 2/3 3/4 Live Kwon PA-C [address] [facility], [address] [place] [address] Referral IDStatusReasonStart DateExpiration DateVisits RequestedVisits [id number] Review/[id number] / ProceduresReferred By ContactReferred To Contact Diagnoses Chest pain, unspecified type Abnormal EKG Procedures Nuc stress Lexiscan/Exercise Bird Dykes MD [address] [place] [address] [facility] [address] [place] [address] Phone: [phone] Referral IDStatusReasonStart DateExpiration DateVisits RequestedVisits [id number]/5/20241/ Additional Source Comments REASON FOR VISIT (unrecogniz ed section and content) ReasonCommentsDM Foot CareReasonCommentsAbnormal CalciumFollow-upReasonComments DM Foot CareDm NailsReasonCommentsDiabetesReasonCommentsURIPatient presents today for cough, congestion, fatigue for about 1.5 weeks. Patient has diarrhea x 1month.ReasonCommentsMed RefillReasonCommentsBack PainReasonCommentsDM Foot Care Dm nail careReasonOnset DateCommentsBack pain4ReasonCommentsFollow-up EST PT F/U 1 YR LABS AT [facility] SCHED W/PT L/S GRUReasonOnset DateCommentsDirect LDL4ReasonOnset DateCommentsSurgical Or Dental Ftbpcqvty27/16/2024 ReasonCommentsBack PainReasonCommentsPainReasonCommentsAnnual ExamReasonComments Back PainReasonOnset DateCommentsAppointment Ukvokwufepfl90/10/2025Reason CommentsDiabetesReasonCommentsAbnormal CalciumFollow-upLABReasonOnset Date QcihsfafFsrnucyfgfb50/13/2025ReasonCommentsDiabetesCoughReasonCommentsBack Pain Hip PainReasonCommentsER Follow-upReasonOnset DateCommentsre: PT Eval today 09/21/2024FU09/30/2024PT Eval rs10/02// w/ Alin Lay, PT.Reason CommentsBack PainHip Pain Patient Care team informatio n (unrecognized section and content) Team Status: Active Member Role Status Dates Kaylie Chavez APRN RECRUITING OPERATIONS CONSULTANT-C Primary Care Provider Active Team Status: Active Member Role Status Dates Kaylie Chavez APRN RECRUITING OPERATIONS CONSULTANT-C Primary Care Provider Active Start: May 12, 2024 Judith Wakefield ProviderActiveStart: May 12, 2024 Team Status: Active Member Role Status Dates Kaylie Chavez APRN RECRUITING OPERATIONS CONSULTANT-C Primary Care Provider Active Start: June 10, 2024 Nirnahun Horvath MDAttending ProviderActiveStart: June 10, 2024 Team Status: Inactive Member Role Status Dates Kaylie Chavez APRN RECRUITING OPERATIONS CONSULTANT-C Primary Care Provider Active Start: June 18, 2024 End: June 18liseth Horvath MDAttending ProviderActiveStart: June 18, 2024 End: June 18, 2024 Team Status: Inactive Member Role Status Dates Kaylie Chavez APRN RECRUITING OPERATIONS CONSULTANT-C Primary Care Provider Active Start: September 30, 2023 End: September 29nathan Mendes , MDAttending ProviderActiveStart: September 30, 2023 End: September 30, 2023 Team Status: Inactive Member Role Status Dates Kaylie Chavez APRN RECRUITING OPERATIONS CONSULTANT-C Primary Care Provider Active Start: October 01, 2023 End: September 30ale Beti Mendes , MDAttending ProviderActiveStart: October 01, 2023 End: October 01, 2023 Team Status: Active Member Role Status Dates Kaylie Chavez APRN RECRUITING OPERATIONS CONSULTANT-C Primary Care Provider Active Start: October 29, 2023 Fermínkyrie Donahue , MDAttending ProviderActiveStart: October 29, 2023 Team Status: Active Member Role Status Dates Kaylie Chavez APRN RECRUITING OPERATIONS CONSULTANT-C Primary Care Provider Active Start: November 13, 2023 Nir Danis , MDAttending ProviderActiveStart: November 13, 2023 Team Status: Inactive Member Role Status Dates Kaylie Chavez APRN RECRUITING OPERATIONS CONSULTANT-C Primary Care Provider Active Start: November 21, 2023 End: November 20bdul Dains , MDAttending ProviderActiveStart: November 21, 2023 End: November 21, 2023 Team Status: Active Member Role Status Dates Kaylie Chavez APRN RECRUITING OPERATIONS CONSULTANT-C Primary Care Provider Active Start: April 16, 2023 Fermín Donahue , MDAttending ProviderActiveStart: April 16, 2023 Team Status: Inactive Member Role Status Dates Kaylie Chavez APRN RECRUITING OPERATIONS CONSULTANT-C Primary Care Provider Active Start: April 25, 2023 End: April 25bdul Danis , MDAttending ProviderActiveStart: April 25, 2023 End: April 25, 2023 Team Status: Inactive Member Role Status Dates Kaylie Chavez APRN RECRUITING OPERATIONS CONSULTANT-C Primary Care Provider Active Imcheri Hoskins MDAttending ProviderActive Team Status: Active Member Role Status Dates Kala Lloyd MD Primary Care Provider Active Kaylie Chavez APRN RECRUITING OPERATIONS CONSULTANT-CReferring ProviderActiveAmy Himanshu , MDAttending Provider Active Team Status: Active Member Role Status Dates Kaylie Chavez APRN RECRUITING OPERATIONS CONSULTANT-C Primary Care Provider Active Herrera Donahue MDAttending ProviderActive Team Status: Inactive Member Role Status Dates Kaylie Chavez APRN RECRUITING OPERATIONS CONSULTANT-C Primary Care Provider Active Judith Eason ProviderActiveTeam MemberRelationshipSpecialtyStart DateEnd Date Kala Lloyd MD [address] [facility] [place] [address] PCP - GeneralFamily Medicine08/07/22 Kaylie Chavez NP [address] [place] [facility] [place] [address] Nurse PractitionerDana-Farber [facility] Medicine08/07/22Team MemberRelationshipSpecialtyStart DateEnd Date Kala Lloyd MD [address] [place] [address] PCP - GeneralFamily Medicine08/07/22 Kaylie Chavez NP [address] [place] [address] Nurse PractitionerDana-Farber Cancer Institute Medicine08/07/22 Team Status: Active Member Role Status Dates Kaylie Chavez APRN RECRUITING OPERATIONS CONSULTANT-C Primary Care Provider Active Start: September 24, 2023 Judith Wakefield ProviderActiveStart: September 24, 2023 Team MemberRelationshipSpecialtyStart DateEnd Date Kala Lloyd MD [address] [place] [address] PCP - GeneralFamily Medicine08/07/22 Kala Lloyd MD [address] [place] [facility] [place] [address] PCP - LIANA Chaparro [facility]06/10/23 Kaylie Chavez RECRUITING OPERATIONS CONSULTANT [address] [place] [address] Nurse PractitionerFamily Medicine08/07/22Team MemberRelationshipSpecialtyStart DateEnd Date Kala Lloyd MD [address] [place] [facility] [place] [address] PCP - Generalmily Medicine08/07/22 Kala Lloyd MD [address] [place] [facility] [place] [address] PCP - [facility] [facility]06/10/23 Kaylie Chavez, RECRUITING OPERATIONS CONSULTANT [address] [place] [facility] [place] [address] [facility]08/07/22Te MemberRelationshipSpecialtyStart DateEnd Date Kala Lloyd MD [address] [place] [facility] [place] [address] PCP - Generalmily Medicine08/07/22 Kala Lloyd MD [address] [place] [facility] [place] [address] PCP - [facility] [place] [facility]06/10/23 Kaylie Chavez, RECRUITING OPERATIONS CONSULTANT [address] [place] [facility] [place] [address] Nurse Pract[facility]erMon[facility]08/07/22Te MemberRelationshipSpecialtyStart DateEnd Date Kala Lloyd MD [address] [place] [facility] [place] [address] PCP - GeneralDana-Farber Cancer Institute Medicine08/07/22 Kala Lloyd MD [address] [place] [facility] [place] [address] PCP - [facility] [place] [facility]06/10/23 Kaylie Chavez, RECRUITING OPERATIONS CONSULTANT [address] [place] [address] Nurse PractitionerDana-Farber Cancer Institute Medicine08/07/22Te MemberRelationshipSpecialtyStart DateEnd Date Kala Lloyd MD [address] [place] [address] PCP - Generalmily Medicine08/07/22 Kala Lloyd MD [address] [place] [address] PCP - N[facility] Krysta [facility]06/10/23 Kaylie Chavez RECRUITING OPERATIONS CONSULTANT [address] [place] [address] Nurse Pract[facility]erMon[facility]08/07/22Te MemberRelationshipSpecialtyStart DateEnd Date Kala Lloyd MD [address] [place] [address] PCP - GeneralMercyone [facility] Centerly Medicine08/07/22 Kala Lloyd MD [address] [place] [address] PCP - N[facility] Krysta [facility]06/10/23 Kaylie Chavez RECRUITING OPERATIONS CONSULTANT [address] [place] [address] Nurse PractitionerDana-Farber Cancer Institute Medicine08/07/22Te MemberRelationshipSpecialtyStart DateEnd Date Kala Lloyd MD [address] [place] [address] PCP - GeneralMercyone Dubuque [facility] Centerly Medicine08/07/22 Kala Lloyd MD [address] [place] [address] PCP - N[facility] Krysta [facility]06/10/23 Kaylie Chavez, AKILAH [address] [place] [address] Nurse PractitionerMercyone Dubuque Medical Centerly Medicine08/07/22Te MemberRelationshipSpecialtyStart DateEnd Date Kala Lloyd MD [address] [place] [address] PCP - GeneralMercyone Dubuque [facility] Centerly Medicine08/07/22 Kala Lloyd MD [address] [place] [address] PCP - NOMS Krysta [facility]06/10/23 Kaylie Chavez, RECRUITING OPERATIONS CONSULTANT [address] [place] [address] Nurse PractitionerDana-Farber [facility] Institute Medicine08/07/22Te MemberRelationshipSpecialtyStart DateEnd Date Kala Lloyd MD [address] [place] [address] PCP - Generalmily Medicine08/07/22 Kaylie Chavez, RECRUITING OPERATIONS CONSULTANT [address] [place] [address] Nurse PractitionerDana-Far[facility] Medicine08/07/22Te MemberRelationshipSpecialtyStart DateEnd Date Kala Lloyd MD [address] [place] [address] PCP - Generalmily Medicine08/07/22 Kaylie Chavez RECRUITING OPERATIONS CONSULTANT [address] [place] [address] Nurse PractitionerDana-Farber [facility] Institute Medicine08/07/22Team MemberRelationshipSpecialtyStart DateEnd Date Kala Lloyd MD [address] [place] [address] PCP - GeneralMercyone Dubuque Medical Centerly Medicine08/07/22 Kaylie Chavez RECRUITING OPERATIONS CONSULTANT [address] [place] [address] Nurse PractitionerDana-Far[facility] Medicine08/07/22Te MemberRelationshipSpecialtyStart DateEnd Date Kala Lloyd MD [address] [place] [address] PCP - GeneralMercyone Dubuque Medical Centerly Medicine08/07/22 Kaylie Chavez NP [address] [place] [address] Nurse PractitionerDana-Farber [facility] Institute Medicine08/07/22Te MemberRelationshipSpecialtyStart DateEnd Date Kala Lloyd MD [address] [place] [address] PCP - GeneralMercyone Dubuque Medical Centerly Medicine08/07/22 Kaylie Chavez NP [address] [place] [address] Nurse PractitionerDana-Far[facility] Medicine08/07/22Te MemberRelationshipSpecialtyStart DateEnd Date Kala Lloyd MD [address] [place] [address] PCP - GeneralFamily Medicine08/07/22 Kala Lloyd MD [address] [place] [address] PCP - NOMS Krysta [facility]06/10/23 Kaylie Chavez NP [address] [place] [address] Nurse Practitionermily Medicine08/07/22Team MemberRelationshipSpecialtyStart DateEnd Date Kala Lloyd MD [address] [place] [address] PCP - Generalmily Medicine08/07/22 Kala Lloyd MD [address] [place] [address] PCP - NOMS [place]ryst[place] [facility]06/10/23 Kaylie Chavez, RECRUITING OPERATIONS CONSULTANT [address] [place] [address] Nurse PractitionerMercyone Dubuque Medical Centerly Medicine08/07/22 Lindy Valentino, [facility] [address] [facility] [address] [place] [address] Behavioral Health03/18/24Team MemberRelationshipSpecialtyStart DateEnd Date Kala Lloyd MD [address] [place] [address] PCP - GeneralFamily Medicine08/07/22 Kala Lloyd MD [address] [place] [address] PCP - NOMS Krysta [facility]06/10/23 Kaylie Chavez RECRUITING OPERATIONS CONSULTANT [address] [place] [address] Nurse PractitionerFamily Medicine08/07/22 Lindy Valentino [facility] [address] [facility] [address] [place] [address] Behavioral Health03/18/24Team MemberRelationshipSpecialtyStart DateEnd Date Kaylie Chavez, SEXTON HELPER-TELEPHOTO INSTALLER PCP - GeneralNurse Practitioner11/20/18Team MemberRelationshipSpecialtyStart Date End Date Kala Lloyd MD [address] [facility] [place] [address] PCP - GeneralFamily Medicine08/07/22 Kala Lloyd MD [address] [facility] [place] [address] PCP - NOMS Krysta [facility]06/10/23 Kaylie Chavez, RECRUITING OPERATIONS CONSULTANT [address] [facility] [place] [address] Nurse PractitionerFamily Medicine08/07/22 Lindy Valentino [facility] [address] [facility] [address] [place] [address] Behavioral Health03/18/24Team MemberRelationshipSpecialtyStart DateEnd Date Kala Lloyd MD [address] [facility] [place] [address] PCP - GeneralFamily Medicine08/07/22 Kala Lloyd MD [address] [place] [facility] [place] [address] PCP - [facility] [facility]06/10/23 Kaylie Chavez, RECRUITING OPERATIONS CONSULTANT [address] [place] [facility] [place] [address] Nurse PractitionerFamily Medicine08/07/22 Lindy Valentino, [facility] [address] [place] [address] Behavioral Health03/18/24Team MemberRelationshipSpecialtyStart DateEnd Date Kala Lloyd MD [address] [place] [facility] [place] [address] PCP - GeneralFamily Medicine08/07/22 Kala Lloyd MD [address] [place] [facility] [place] [address] PCP - N[facility] [facility]06/10/23 Kaylie Chavez RECRUITING OPERATIONS CONSULTANT [address] [place] [facility] [place] [address] Nurse PractitionerDana-Farber Cancer Institute Medicine08/07/22 Lindy Valentino, [facility] [address] [facility] [address] [place] [address] Behavioral Health03/18/24Team MemberRelationshipSpecialtyStart DateEnd Date Kaylie Chavez, SEXTON HELPER-TELEPHOTO INSTALLER [address] [place] [facility] [place] [address] PCP - GeneralNurse Practitioner11/20/18Team MemberRelationshipSpecialtyStart Date End Date Kaylie Chavez, SEXTON HELPER-TELEPHOTO INSTALLER [address] [place] [facility] [place] [address] PCP - GeneralNurse Practitioner11/20/18Team MemberRelationshipSpecialtyStart Date End Date Kaylie Chavez SEXTON HELPER-TELEPHOTO INSTALLER [address] [place] [address] PCP - GeneralNurse Practitioner9Team MemberRelationshipSpecialtyStart Date End Date Kaylie Chavez SEXTON HELPER-TELEPHOTO INSTALLER [address] [place] [address] PCP - GeneralNurse Practitioner9Team MemberRelationshipSpecialtyStart Date End Date Kaylie Chavez SEXTON HELPER-TELEPHOTO INSTALLER [address] [place] [address] PCP - GeneralNurse Practitioner9Team MemberRelationshipSpecialtyStart Date End Date Kaylie Chavez SEXTON HELPER-TELEPHOTO INSTALLER [address] [place] [address] PCP - GeneralNurse Practitioner11/20/18Team MemberRelationshipSpecialtyStart Date End Date Kaylie Chavez SEXTON HELPER-TELEPHOTO INSTALLER [address] [place] [address] PCP - GeneralNurse Practitioner11/20/18Team MemberRelationshipSpecialtyStart Date End Date Kaylie Chavez SEXTON HELPER-TELEPHOTO INSTALLER [address] [place] [address] PCP - GeneralNurse Practitioner11/20/18Team MemberRelationshipSpecialtyStart Date End Date Kala Lloyd MD [address] [place] [address] PCP - GeneralFamily Medicine08/07/22 Kala Lloyd MD [address] [place] [facility] [place] [address] PCP - NOMS Krysta [facility]06/10/23 Kaylie Chavez, RECRUITING OPERATIONS CONSULTANT [address] [place] [facility] [place] [address] Nurse PractitionerFamily Medicine08/07/22 Lindy Valentino, [facility] [address] [place] [address] Behavioral Health03/18/24Team MemberRelationshipSpecialtyStart DateEnd Date Kala Lloyd MD [address] [place] [facility] [place] [address] PCP - GeneralFamily Medicine08/07/22 Kala Lloyd MD [address] [place] [facility] [place] [address] PCP - NOMS Kryst[place] [facility]06/10/23 Kaylie Chavez, RECRUITING OPERATIONS CONSULTANT [address] [place] [facility] [place] [address] Nurse PractitionerFamily Medicine08/07/22 Lindy Valentino, [facility] [address] [place] [address] Behavioral Health03/18/24Team MemberRelationshipSpecialtyStart DateEnd Date Kala Lloyd MD [address] [place] [facility] [place] [address] PCP - GeneralFamily Medicine08/07/22 Kala Lloyd MD [address] [place] [address] PCP - NOMS Krysta [facility]06/10/23 Kaylie Chavez, RECRUITING OPERATIONS CONSULTANT [address] [place] [address] Nurse PractitionerFamily Medicine08/07/22 Lindy Valentino, [facility] [address] [facility] [address] [place] [address] Behavioral Health03/18/24Team MemberRelationshipSpecialtyStart DateEnd Date Kala Lloyd MD [address] [facility] [place] [address] PCP - GeneralFamily Medicine08/07/22 Kala Lloyd MD [address] [place] [address] PCP - NOMS Krysta [facility]06/10/23 Kaylie Chavez, RECRUITING OPERATIONS CONSULTANT [address] [facility] [place] [address] Nurse PractitionerFamily Medicine08/07/22 Lindy Valentino [facility] [address] [facility] [address] [place] [address] Behavioral Health03/18/24Team MemberRelationshipSpecialtyStart DateEnd Date Kala Lloyd MD [address] [place] [address] PCP - GeneralFamily Medicine08/07/22 Kala Lloyd MD [address] [place] [address] PCP - N[facility] [facility]06/10/23 Kaylie Chavez, RECRUITING OPERATIONS CONSULTANT [address] [place] [address] Nurse PractitionerFarily Medicine08/07/22 Lindy Valentino, [facility] [address] [place] [address] Behavioral Health03/18/24Team MemberRelationshipSpecialtyStart DateEnd Date Kala Lloyd MD [address] [place] [facility] [place] [address] PCP - GeneralFamily Medicine08/07/22 Kala Lloyd MD [address] [place] [facility] [place] [address] PCP - NOMS Krysta [facility]06/10/23 Kaylie Chavez, RECRUITING OPERATIONS CONSULTANT [address] [place] [facility] [place] [address] Nurse PractitionerDana-Farber Cancer Institute Medicine08/07/22 Lindy Valentino, [facility] [address] [facility] [address] [place] [address] Behavioral Health03/18/24Team MemberRelationshipSpecialtyStart DateEnd Date Kaylie Chavez, SEXTON HELPER-TELEPHOTO INSTALLER PCP - GeneralNurse Practitioner11/20/18Te MemberRelationshipSpecialtyStart Date End Date Kala Lloyd MD [address] [place] [facility] [place] [address] PCP - GeneralMercyone Dubuque Medical Centerly Medicine08/07/22 Kala Lloyd MD [address] [place] [address] PCP - NOMS Krysta [facility]06/10/23 Kaylie Chavez, RECRUITING OPERATIONS CONSULTANT [address] [place] [address] Nurse PractitionerFamily Medicine08/07/22 Lindy Valentino, [facility] [address] [place] [address] Behavioral Health03/18/24Team MemberRelationshipSpecialtyStart DateEnd Date Kala Lloyd MD [address] [place] [address] PCP - GeneralFamily Medicine08/07/22 Kala Lloyd MD [address] [place] [address] PCP - NOMS Krysta [facility] Kaylie Chavez, RECRUITING OPERATIONS CONSULTANT [address] [facility] [place] [address] Nurse PractitionerFamily Medicine08/07/22 Lindy Valentino [facility] [address] [facility] [address] [place] [address] Behavioral Health03/18/24Team MemberRelationshipSpecialtyStart DateEnd Date Kala Lloyd MD [address] [place] [facility] [place] [address] PCP - GeneralFamily Medicine08/07/22 Kala Lolyd MD [address] [place] [facility] [place] [address] PCP - NOMS Krysta [facility]06/10/23 Kaylie Chavez, RECRUITING OPERATIONS CONSULTANT [address] [place] [address] Nurse PractitionerFamily Medicine08/07/22 Lindy Valentino, [facility] [address] [place] [address] Behavioral Health03/18/24Te MemberRelationshipSpecialtyStart DateEnd Date Kala Lloyd MD [address] [place] [address] PCP - GeneralFamily Medicine08/07/22 Kala Lloyd MD [address] [place] [address] PCP - NOMS Krysta [facility]06/10/23 Kaylie Chavez NP [address] [place] [address] Nurse PractitionerFarily Medicine08/07/22 Lindy Valentino, [facility] [address] [facility] [address] [place] [address] Behavioral [facility]03/18/24Te MemberRelationshipSpecialtyStart DateEnd Date Kala Lloyd MD [address] [place] [address] PCP - GeneralFamily Medicine08/07/22 Kala Lloyd MD [address] [place] [address] PCP - NOMS Krysta [facility]06/10/23 Kaylie Chavez NP [address] [place] [address] Nurse PractitionerFamily Medicine08/07/22 Lindy Valentino [facility] [address] [place] [address] Behavioral Health03/18/24 Name Effective Dates (start - stop) Status Members No Information Team MemberRelationshipSpecialtyStart DateEnd Date Kala Lloyd MD [address] [place] [address] PCP - GeneralFamily Medicine08/07/22 Kala Lloyd MD [address] [place] [address] PCP - NOMS Krysta [facility]06/10/23 Kaylie Chavez, RECRUITING OPERATIONS CONSULTANT [address] [place] [address] Nurse PractitionerFamily Medicine08/07/22 Lindy Valentino [facility] [address] [place] [address] Behavioral Health03/18/24Team MemberRelationshipSpecialtyStart DateEnd Date Kaylie Chavez, SEXTON HELPER-TELEPHOTO INSTALLER PCP - GeneralNurse Practitioner11/20/18Team MemberRelationshipSpecialtyStart Date End Date Kala Lloyd MD [address] [place] [address] PCP - GeneralFamily Medicine08/07/22 Kala Lloyd MD [address] [place] [address] PCP - NOMS Krysta [facility]06/10/23 Kaylie Chavez, RECRUITING OPERATIONS CONSULTANT [address] [facility] [place] [address] Nurse PractitionerFamily Medicine08/07/22 Lindy Valentino, [facility] [address] [place] [address] Behavioral Health03/18/24Team MemberRelationshipSpecialtyStart DateEnd Date Kala Lloyd MD [address] [place] [address] PCP - GeneralFamily Medicine08/07/22 Kala Lloyd MD [address] [place] [address] PCP - NOMS Krysta [facility]06/10/23 Kaylie Chavez, RECRUITING OPERATIONS CONSULTANT [address] [facility] [place] [address] Nurse PractitionerFamily Medicine08/07/22 Lindy Valentino [facility] [address] [facility] [address] [place] [address] Behavioral Health03/18/24Team MemberRelationshipSpecialtyStart DateEnd Date Kala Lloyd MD [address] [place] [address] PCP - GeneralFamily Medicine08/07/22 Kala Lloyd MD [address] [place] [address] PCP - NOMS Krysta [facility]06/10/23 Kaylie Chavez, RECRUITING OPERATIONS CONSULTANT [address] [place] [facility] [place] [address] Nurse PractitionerFamily Medicine08/07/22 Lindy Valentino [facility] [address] [place] [address] Behavioral Health03/18/24Team MemberRelationshipSpecialtyStart DateEnd Date Kaylie Chavez, SEXTON HELPER-TELEPHOTO INSTALLER PCP - GeneralNurse Practitioner11/20/18Team MemberRelationshipSpecialtyStart Date End Date Kala Lloyd MD [address] [place] [facility] [place] [address] PCP - GeneralFamily Medicine08/07/22 Kala Lloyd MD [address] [place] [facility] [place] [address] PCP - NOMS Krysta [facility]06/10/23 Kaylie Chavez, RECRUITING OPERATIONS CONSULTANT [address] [place] [facility] [place] [address] Nurse PractitionerFamily Medicine08/07/22 Lindy Valentino [facility] [address] [place] [address] Behavioral Health03/18/24Team MemberRelationshipSpecialtyStart DateEnd Date Kala Lloyd MD [address] [place] [facility] [place] [address] PCP - GeneralFamily Medicine08/07/22 Kala Lloyd MD [address] [place] [address] PCP - NOMS Krysta [facility]06/10/23 Kaylie Chavez, RECRUITING OPERATIONS CONSULTANT [address] [place] [address] Nurse PractitionerFamily Medicine08/07/22 Lindy Valentino, [facility] [address] [facility] [address] [place] [address] Behavioral Health03/18/24Team MemberRelationshipSpecialtyStart DateEnd Date Kala Lloyd MD [address] [facility] [place] [address] PCP - GeneralFamily Medicine08/07/22 Kaal Lloyd MD [address] [place] [address] PCP - NOMS Krysta [facility]06/10/23 Kaylie Chavez RECRUITING OPERATIONS CONSULTANT [address] [facility] [place] [address] Nurse PractitionerFamily Medicine08/07/22 Lindy Valentino [facility] [address] [facility] [address] [place] [address] Behavioral Health03/18/24Team MemberRelationshipSpecialtyStart DateEnd Date Kala Lloyd MD [address] [place] [facility] [place] [address] PCP - GeneralFamily Medicine08/07/22 Kala Lloyd MD [address] [place] [facility] [place] [address] PCP - N[place] [facility]06/10/23 Kaylie Chavez, RECRUITING OPERATIONS CONSULTANT [address] [place] [facility] [place] [address] Nurse PractitionerFamily Medicine08/07/22 Lindy Valentino, [facility] [address] [place] [address] Behavioral Health03/18/24 Laverne Espinal, TRAFFIC CIRCUIT ENGINEER [address] [place] [address] Social WorkerMercyone Dubuque Medical Centerly Medicine09/07/24Team MemberRelationshipSpecialtyStart DateEnd Date Kala Lloyd MD [address] [place] [facility] [place] [address] PCP - GeneralFamily Medicine08/07/22 Kala Lloyd MD [address] [place] [facility] [place] [address] PCP - NOMS Krysta [facility]06/10/23 Kaylie Chavez, RECRUITING OPERATIONS CONSULTANT [address] [facility] [place] [address] Nurse PractitionerFamily Medicine08/07/22 [facility] [address] [place] [address] Behavioral Health03/18/24 Laverne Espinal, TRAFFIC CIRCUIT ENGINEER [address] [place] [address] Social Workermily Medicine09/07/24Team MemberRelationshipSpecialtyStart DateEnd Date Kaylie Chavez, SEXTON HELPER-TELEPHOTO INSTALLER PCP - GeneralNurse Practitioner11/20/18Team MemberRelationshipSpecialtyStart Date End Date Kala Lloyd MD [address] [place] [address] PCP - GeneralFamily Medicine08/07/22 Kala Lloyd MD [address] [place] [address] PCP - NOMS Krysta [facility]06/10/23 Kaylie Chavez, RECRUITING OPERATIONS CONSULTANT [address] [place] [address] Nurse PractitionerFarily Medicine08/07/22 Lindy Valentino, [facility] [address] [place] [address] Behavioral Health03/18/24 Laverne Espinal, TRAFFIC CIRCUIT ENGINEER [address] [place] [address] Social WorkerMercyone Dubuque Medical Centerly Medicine09/07/24Team MemberRelationshipSpecialtyStart DateEnd Date Kaylie Chavez, SEXTON HELPER-TELEPHOTO INSTALLER PCP - GeneralNurse Practitioner11/20/18Team MemberRelationshipSpecialtyStart Date End Date Kala Lloyd MD [address] [place] [address] PCP - GeneralFarily Medicine08/07/22 Kala Lloyd MD [address] [place] [address] PCP - NOMS Krysta [facility]06/10/23 Kaylie Chavez RECRUITING OPERATIONS CONSULTANT [address] [place] [facility] [place] [address] Nurse PractitionerFamily Medicine08/07/22 Lindy Valent[facility] [address] [place] [address] Behavioral Health03/18/24 Laverne Espinal, TRAFFIC CIRCUIT ENGINEER [address] [place] [facility] [place] [address] Social WorkerFamily Medicine09/07/24Team MemberRelationshipSpecialtyStart DateEnd Date Kala Lloyd MD [address] [place] [address] PCP - GeneralFamily Medicine08/07/22 Kala Lloyd MD [address] [place] [address] PCP - NOMS [facility]a [facility]06/10/23 Kaylie Chavez RECRUITING OPERATIONS CONSULTANT [address] [place] [address] Nurse PractitionerFamily Medicine08/07/22 Lindy Valent[facility] [address] [place] [address] Behavioral Health03/18/24 Laverne Espinal, TRAFFIC CIRCUIT ENGINEER [address] [place] [facility] [place] [address] Social WorkerFamily Medicine09/07/24Te MemberRelationshipSpecialtyStart DateEnd Date Kala Lloyd MD [address] [place] [address] PCP - GeneralFamily Medicine08/07/22 Kala Lloyd MD [address] [place] [address] PCP - NOMS [facility]a [facility]06/10/23 Kaylie Chavez, RECRUITING OPERATIONS CONSULTANT [address] [place] [address] Nurse PractitionerFamily Medicine08/07/22 Lindy Valentino [facility] [address] [place] [address] Behavioral Health03/18/24 Laverne Espinal, TRAFFIC CIRCUIT ENGINEER [address] [place] [address] Social WorkerD[facility] Medicine09/07/24Team MemberRelationshipSpecialtyStart DateEnd Date Kala Lloyd MD [address] [place] [address] PCP - Generalmily Medicine08/07/22 Kala Lloyd MD [address] [place] [address] PCP - NOMS [facility]06/10/23 Kaylie Chavez, RECRUITING OPERATIONS CONSULTANT [address] [place] [address] Nurse Practitionermily Medicine08/07/22 Lindy Valentino [facility] [address] [place] [address] Behavioral Health03/18/24 Laverne Espinal, TRAFFIC CIRCUIT ENGINEER [address] [place] [address] Social WorkerMercyone [facility]uque Medical Centerly Medicine09/07/24Team MemberRelationshipSpecialtyStart DateEnd Date Kala Lloyd MD [address] [place] [address] PCP - GeneralFamily Medicine08/07/22 Kala Lloyd MD [address] [place] [address] PCP - NOMS [facility]a [facility]06/10/23 Kaylie Chavez, RECRUITING OPERATIONS CONSULTANT [address] [place] [address] Nurse PractitionerDana-Farber [facility] Institute Medicine08/07/22 Lindy Valent[facility] [address] [place] [address] Behavioral Health03/18/24 Laverne Espinal, TRAFFIC CIRCUIT ENGINEER [address] [facility] [place] [address] Social WorkerDana-Far[facility] Medicine09/07/24Team MemberRelationshipSpecialtyStart DateEnd Date Kala Lloyd MD [address] [place] [address] PCP - GeneralFamily Medicine08/07/22 Kala Lloyd MD [address] [place] [address] PCP - NOMS [facility]06/10/23 Kaylie Chavez, RECRUITING OPERATIONS CONSULTANT [address] [place] [address] Nurse PractitionerMercyone Dubuque Medical Centerly Medicine08/07/22 Lindy Valentino [facility] [address] [place] [address] Behavioral Health03/18/24 Laverne Espinal, TRAFFIC CIRCUIT ENGINEER [address] [place] [address] Social WorkerFamily Medicine09/07/24Team MemberRelationshipSpecialtyStart DateEnd Date Kala Lloyd MD [address] [place] [address] PCP - GeneralFamily Medicine08/07/22 Kala Lloyd MD [address] [place] [address] PCP - NOMS [facility]06/10/23 Kaylie Chavez, RECRUITING OPERATIONS CONSULTANT [address] [place] [address] Nurse PractitionerFamily Medicine08/07/22 Lindy Valent[facility] [address] [place] [address] Behavioral Health03/18/24 Laverne Espinal, [facility] [address] [place] [address] Social WorkerFamily Medicine09/07/24Team MemberRelationshipSpecialtyStart DateEnd Date Laverne Porter, DO [address] [place] [address] PCP - GeneralFamily Medicine11/17/24Team MemberRelationshipSpecialtyStart DateEnd Date Laverne Porter, DO [address] [place] [address] PCP - GeneralFamily Medicine11/17/24Team MemberRelationshipSpecialtyStart DateEnd Date Kala Lloyd MD [address] [place] [address] PCP - GeneralFamily Medicine08/07/22 Kala Lloyd MD [address] [place] [address] PCP - NOMS [facility]06/10/23 Kaylie Chavez, RECRUITING OPERATIONS CONSULTANT [address] [place] [address] Nurse PractitionerMercyone Dubuque Medical Centerly Medicine08/07/22 Lindy Valentino [facility] [address] [place] [address] Behavioral Health03/18/24 Laverne Espinal, TRAFFIC CIRCUIT ENGINEER [address] [facility] [place] [address] Social WorkerMercyone Dubuque Medical Centerly Medicine09/07/24Team MemberRelationshipSpecialtyStart DateEnd Date Kala Lloyd MD [address] [place] [address] PCP - GeneralFamily Medicine08/07/22 Kala Lloyd MD [address] [place] [address] PCP - NOMS Krysta [facility]06/10/23 Kaylie Chavez, RECRUITING OPERATIONS CONSULTANT [address] [place] [address] Nurse PractitionerMercyone Dubuque Medical Centerly Medicine08/07/22 Lindy Valentino [facility] [address] [place] [address] Behavioral Health03/18/24 Laverne Espinal, TRAFFIC CIRCUIT ENGINEER [address] [place] [address] Social WorkerDana-Far[facility] Institute Medicine09/07/24Team MemberRelationshipSpecialtyStart DateEnd Date Kala Lloyd MD [address] [facility] [place] [address] PCP - GeneralFamily Medicine08/07/22 Kala Lloyd MD [address] [facility] [place] [address] PCP - NOMS Krysta [facility]06/10/23 Kaylie Chavez RECRUITING OPERATIONS CONSULTANT [address] [place] [address] Nurse Practitionermily Medicine08/07/22 Lindy Valentino [facility] [address] [place] [address] Behavioral Health03/18/24 Teddy Laverne, TRAFFIC CIRCUIT ENGINEER [address] [facility] [place] [address] Social WorkerDana-Far[facility] Institute Medicine09/07/24Te MemberRelationshipSpecialtyStart DateEnd Date Kala Lloyd MD [address] [place] [address] PCP - GeneralFamily Medicine08/07/22 Kala Lloyd MD [address] [place] [address] PCP - NOMS Krysta [facility]06/10/23 Kaylie Chavez NP [address] [place] [facility] [place] [address] Nurse PractitionerFamily Medicine08/07/22 Lindy Valentino [facility] [address] [place] [address] Behavioral Health03/18/24 Laverne Espinal, TRAFFIC CIRCUIT ENGINEER [address] [place] [facility] [place] [address] Social Workermily Medicine09/07/24Team MemberRelationshipSpecialtyStart DateEnd Date Kala Lloyd MD [address] [place] [facility] [place] [address] PCP - GeneralFamily Medicine08/07/22 Kala Lloyd MD [address] [place] [address] PCP - NOMS Krysta [facility]06/10/23 Kaylie Chavez RECRUITING OPERATIONS CONSULTANT [address] [place] [address] Nurse PractitionerFamily Medicine08/07/22 Lindy Valentino [facility] [address] [place] [address] Behavioral Health03/18/24 Laverne Espinal, TRAFFIC CIRCUIT ENGINEER [address] [place] [facility] [place] [address] Social WorkerMercyone Dubuque Medical Centerly Medicine09/07/24Te MemberRelationshipSpecialtyStart DateEnd Date Kala Lloyd MD [address] [place] [facility] [place] [address] PCP - GeneralFamily Medicine08/07/22 Kala Lloyd MD [address] [place] [address] PCP - NOMS Krysat [facility]06/10/23 Kaylie Chavez, RECRUITING OPERATIONS CONSULTANT [address] [place] [address] Nurse PractitionerFamily Medicine08/07/22 Lindy Valentino [facility] [address] [place] [address] Behavioral Health03/18/24 Laverne Espinal, TRAFFIC CIRCUIT ENGINEER [address] [place] [address] Social WorkerMercyone Dubuque [facility] Centerly Medicine09/07/24Team MemberRelationshipSpecialtyStart DateEnd Date Kala Lloyd MD [address] [place] [address] PCP - GeneralFamily Medicine08/07/22 Kala Lloyd MD [address] [place] [address] PCP - NOMS Krysta [facility]06/10/23 Kaylie Chavez, RECRUITING OPERATIONS CONSULTANT [address] [place] [address] Nurse PractitionerFamily Medicine08/07/22 Lindy Valentino [facility] [address] [place] [address] Behavioral Health03/18/24 Laverne Espinal, TRAFFIC CIRCUIT ENGINEER [address] [place] [address] Social Workermily Medicine09/07/24Team MemberRelationshipSpecialtyStart DateEnd Date Kala Lloyd MD [address] [place] [address] PCP - GeneralFamily Medicine08/07/22 Kala Lloyd MD [address] [place] [address] PCP - NOMS Krysta [facility]06/10/23 Kaylie Chavez, RECRUITING OPERATIONS CONSULTANT [address] [place] [address] Nurse PractitionerDana-Farber Cancer Institute Medicine08/07/22 Lindy Valentino [facility] [address] [address] Behavioral Health03/18/24 Laverne Espinal, TRAFFIC CIRCUIT ENGINEER [address] [facility] [place] [address] Social WorkerDana-Farber [facility] Institute Medicine09/07/24Team MemberRelationshipSpecialtyStart DateEnd Date Kala Lloyd MD [address] [place] [address] PCP - Generalmily Medicine08/07/22 Kala Lloyd MD [address] [place] [address] PCP - NOMS Krysta [facility]06/10/23 Kaylie Chavez, RECRUITING OPERATIONS CONSULTANT [address] [place] [address] Nurse PractitionerMercyone Dubuque Medical Centerly Medicine08/07/22 Lindy Valentino [facility] [address] [place] [address] Behavioral Health03/18/24 Laverne Espinal, TRAFFIC CIRCUIT ENGINEER [address] [place] [address] Social WorkerFamily Medicine09/07/24Team MemberRelationshipSpecialtyStart DateEnd Date Kala Lloyd MD [address] [place] [address] PCP - GeneralFamily Medicine08/07/22 Kala Lloyd MD [facility] [place] [address] PCP - NOMS [place] [facility]06/10/23 Kaylie Chavez, AKILAH [facility] [place] [address] Nurse PractitionerFamily Medicine08/07/22 Lindy Valentino [facility] [address] [place] [address] Behavioral Health03/18/24 Laverne Espinal, LUCERO [address] [place] [address] Social WorkerDana-Farber Cancer Institute Medicine09/07/24 INFORMATION SOURCE (unrecogn ized section and content) DATE CREATED AUTHOR 03/13/2022 [facility] [employer] DATE CREATED AUTHOR AUTHOR'S ORGANIZ ATION 03/22/2022 [facility] DATE CREATED AUTHOR AUTHOR'S ORGANIZ ATION 07/22/2022 [facility] DATE CREATED AUTHOR AUTHOR'S ORGANIZ ATION 10/03/2023 [facility] DATE CREATED AUTHOR AUTHOR'S ORGANIZ ATION 11/26/2024 [facility] DATE CREATED AUTHOR AUTHOR'S ORGANIZ ATION 12/15/[address] [facility] DATE CREATED AUTHOR AUTHOR'S MARINAZEYNEP ATION 01/02/2025 [facility] DATE CREATED AUTHOR AUTHOR'S JESSIKA ATION 01/03/2025 [facility] Goals (unrecognized section and content) Goals may [...] BE BASED ON THE PRIMARY CLINICAL RECORDS. [employer] [facility]. provides no warranty or guarantee of the accuracy or completeness of information in this document.
[2025-01-06 12:52] LABS: Hematocrit 40.7 % (36.0-48.0); Hemoglobin 13.7 g/dL (12.0-16.0); Mean Corpuscular HGB Conc 33.7 g/dL (29.9-35.2); Mean Corpuscular Hemoglobin 31.1 pg (26.7-34.0); Mean Corpuscular Volume 92.5 fL (81.0-99.0); Platelet Count 225 10^3/uL (150-450); Red Blood Count 4.40 10^6/uL (4.20-5.40); White Blood Count 11.2 10^3/uL (4.0-11.0)
[2025-01-06 12:53] LABS: Glucose Urine UA 500 mg/dL (NEGATIVE)
[2025-01-06 13:12] LABS: Protein Creatinine Ratio Urine 1.29; Total Protein Urine Random 356.3 mg/dL (<=11.9)
[2025-01-06 13:47] LABS: Cast Seen? SEEN #/LPF (NONE SEEN); Crystals Seen? None Seen #/HPF (None Seen)
[2025-01-06 14:11] LABS: Albumin Level 3.2 g/dL (3.4-5.0); Anion Gap 16.0; Blood Urea Nitrogen 25.0 mg/dL (7.0-18.0); Calcium 9.2 mg/dL (8.5-10.1); Carbon Dioxide 24.3 mmol/L (21.0-32.0); Chloride 101 mmol/L (98-107); Estimated GFR (African America 54 (>=60 mL/min/1.73m^2); Estimated GFR (Non-African Ame 45 (>=60 mL/min/1.73m^2); Glucose 312 mg/dL (74-106); Magnesium 1.5 mg/dL (1.8-2.4); Potassium 4.3 mmol/L (3.5-5.1); Sodium 137 mmol/L (136-145); Uric Acid 6.2 mg/dL (2.6-6.0)
== END 2025-01-06 12:30 | disposition home or self-care (01) ==
LOC: LAB 12:33
PROVIDERS: PCP Family Medicine; Visit Provider Internal Medicine
DX: E83.42 Hypomagnesemia (principal); E27.8 Other specified disorders of adrenal gland; I12.9 Hypertensive chronic kidney disease with stage 1 through stage 4 chronic kidney disease, or unspecified chronic kidney disease; E11.22 Type 2 diabetes mellitus with diabetic chronic kidney disease; N18.30 Chronic kidney disease, stage 3 unspecified; E83.52 Hypercalcemia
CPT/HCPCS: 36415; 80069; 81001; 82306; 82570; 83735; 83970; 84156; 84550; 85027